=== PATIENT | female | born 1960 | race Caucasian/White ===

== ENCOUNTER → 2017-09-05 13:20 | Outpatient (CLI) | payer MEDICARE, SELFPAY ==
--- NOTE | 2017-09-05 13:22 | RAD_ITS ---
STUDY: XR SPINE ENTIRE THORACIC T LUMBAR (W SKULL, CERVICAL AND SACRAL SPINE IF PERFORMED) REASON FOR EXAM: Female, 57 years old. Low back pain. TECHNIQUE: Radiological exam, spine, entire thoracic and lumbar, including skull, cervical and sacral spine if performed (eg, scoliosis evaluation); 2 or 3 views. COMPARISON: X-rays of the thoracolumbar spine on July 12, 2017. FINDINGS: The patient is status post extensive thoracolumbar instrumentation with transpedicular screws and rods from L3 to T4. There is mild gentle levoscoliotic curvature of the thoracolumbar spine measuring approximately 17 degrees with apex at T7. There is multilevel degenerative disease of the thoracic and upper lumbar spine with disc space narrowing and anterior osteophytes. The patient is status post kyphoplasty at T12 and L1. There is dislocation of the facet joints at L3-4 increases on flexion with widening of the posterior disc space. Small bony fragments are noted posteriorly. There is associated facet arthrosis at L4-5 and L5-S1, with moderate retraction of the articular facets at L4-5. There is degenerative disc disease at L5-S1 with disc space narrowing RAD/Scoliosis 2 or 3 views IMPRESSION: Dislocation of the L3-4 facet joint increased on flexion with degenerative changes and fragmentation and cortical disruption of the articular facets at this level. The possibility of infection cannot be excluded Status post extensive thoracolumbar spinal instrumentation as outlined above Status post kyphoplasty at T12 and L1. Electronically Signed: Andriy Gilliam MD, FACR at 14:03 EST , Service support ,
== END ==
PROVIDERS: Family Provider Internal Medicine; PCP Internal Medicine; Visit Provider Orthopaedic Surgery
DX: M54.5 Low back pain (principal)
CPT/HCPCS: 72082

== ENCOUNTER 2018-02-16 06:42 | Emergency (ER) | payer MEDICARE, SELFPAY ==
[2018-02-16 06:42] VITALS: BP 129/86; PULSE 89; RESP 16; TEMP 37.2; O2SAT 94; BMI 35.9
--- NOTE | 2018-02-16 06:56 | CT_ITS ---
STUDY: CT ABDOMEN AND PELVIS WITH CONTRAST REASON FOR EXAM: Female, 57 years old. Left lower quadrant pain, recent back surgery RADIATION DOSAGE (If Supplied By Facility): CTDIvol = ( 17.96 ) mGy, DLP = ( 1258.60 ) mGycm TECHNIQUE: Transaxial images were obtained from the dome of the diaphragm to the symphysis pubis without oral contrast. 100mL ml of Isovue 300 contrast was administered. Sagittal and coronal images were reconstructed. Individualized dose optimization techniques were used for this CT. COMPARISON: 10/25/2016 FINDINGS: There are chronic interstitial fibrotic changes of the lung bases. The visualized portions of the heart are within normal limits. No discrete lesion noted in the liver, there is stable intrahepatic biliary dilatation likely sequela from previous cholecystectomy. No retained stone or stricture noted in the visualized common bile duct. There are surgical clips in the gallbladder fossa consistent with a prior cholecystectomy. Normal spleen. Normal pancreas. There is a 1.15 cm low attenuation left adrenal mass, consistent with an adrenal adenoma. Normal right adrenal gland. Normal right kidney. Normal left kidney. Postsurgical changes noted in the stomach. Normal small intestine. Retained stool noted throughout the colon. It may be impacted. There is non-visualization of the appendix. There is diffuse atherosclerotic calcification of the abdominal aorta, without a demonstrated aneurysm. Normal inferior vena cava. Normal retroperitoneum. Bladder is collapsed around a Farrell catheter. There is a stable fat-containing dermoid in the upper left pelvis again measuring approximately 6.7 x 5.7 cm. The uterus is again noted to be present the endometrium cannot be accurately evaluated with CT. There is a new predominantly cystic mass in the inferior left pelvis abutting the bladder measuring 6.02 x 4.88 cm with Hounsfield units of 35. I suspect this likely represents a hemorrhagic left ovarian cyst as it is clearly separate from bowel. There is also a 2.39 cm right ovarian cyst cyst. There is a small umbilical hernia containing fat. There are diffuse degenerative and postsurgical changes of the visualized lumbar spine. Degenerative changes noted in the pelvis. CT/Abdomen/Pelvis W IV Cont ONLY IMPRESSION: There is a new from the previous study cystic mass within the left hemipelvis. It is just inferior and lateral to the uterus and abutting the bladder clearly separate from bowel. It measures 6.02 x 4.88 cm. I suspect this likely represents a hemorrhagic ovarian cyst though it could also represent a bladder diverticulum. There is some associated inflammatory stranding. Gynecology consult recommended. Stable 6.7 x 5.7 cm fat-containing dermoid 2.39 cm right ovarian cyst Bladder is collapsed around a Farrell catheter. Retained stool throughout the colon likely impacted Electronically Signed: Johnny Hood MD at 8:22 EDT , Service support ,
--- NOTE | 2018-02-16 07:07 | ED.DCSUM_ITS ---
History of Present Illness Informant: Patient, PCP Onset: - - unk -- thinks around 3 days or so Timing: Continuous Current Severity: Severe Maximum Severity: Severe Narrative: Last month, patient had a low back surgery that was complicated by multiple problems including a dural tear, she ended up a paraplegic and sent to the rehab hospital at [facility]. She recently was transferred to the rehab hospital here and she has been there for a few days, she was recently diagnosed with a urinary infection, she states she was mostly having pain in her perineum, that is better now. She is regaining sensation and motor function in her lower extremities, the right leg is doing better than the left, she does not have a discrete sensory level in her lower abdomen, but states that she has better sensory there then in her left lower extremity. She has been having proximal left lower extremity pain since the surgery as well as low mid back pain, and has the proximal left thigh pain has increased lately, she eventually discovered that it was also in her abdomen as her doctor did today when he examined her. Therefore, she was sent to the ER for further evaluation and for CT scanning. She is had no fevers, nausea, vomiting. Her back pain is been similar to her postop course, no new lateralizing discomforts. <Figueroa Joseph - Last Filed: 02/16/18 06:57> <Timothy Ho - Last Filed: 02/16/18 11:27> Chief Complaint: Abd Pain - Past Medical History (1) Diabetes mellitus type 2, uncontrolled, without complications Status: Chronic (2) Dysthymic disorder Status: Chronic (3) HLD (hyperlipidemia) Status: Chronic (4) HTN (hypertension) Status: Chronic (5) Morbid obesity Status: Chronic (6) Tobacco use disorder Status: Chronic <Figueroa Joseph - Last Filed: 02/16/18 06:57> Past Medical History Surgical History: noncontributory, - - Gastric bypass Lives: Half-Way Smoking Status: Former smoker <Figueroa Joseph - Last Filed: 02/16/18 06:57> <Timothy Ho - Last Filed: 02/16/18 11:27> - Allergies and Home Meds Allergies/Adverse Reactions: Allergies No Known Allergies Allergy (Verified 02/16/18 06:45) Primary Care Physician: Kevin Bah MD [Primary Care Provider] - Review of Systems All systems negative except as indicated Gastrointestinal: Reports: Abdominal pain. Denies: Nausea, Vomiting, Diarrhea, Melena, Hematochezia Genitourinary: Reports: Dysuria - Improving. Denies: Hematuria, Frequency Musculoskeletal: Reports: Back pain, Extremity Pain - Especially on bottoms of feet Neurological: Reports: Weakness, Parasthesia <Figueroa Joseph - Last Filed: 02/16/18 06:57> Physical Exam Vital Signs/Narrative: Vital Signs Temp Pulse Resp BP Pulse Ox 02/16/18 06:42 98.9 F 89 16 129/86 H 94 Inital Vital Signs reviewed: Yes General: Well nourished, Well developed, Obese Head: Normocephalic, Atraumatic Eyes: Perrl, EOMI ENT: Moist mucous membranes, No rhinorrhea Neck: Supple, Nontender Cardiovascular: Regular rate, Regular rhythm, No murmurs Respiratory: No distress, CTA bilaterally, Chest nontender Abdomen: Soft, Nondistended, Normal bowel sounds, Tender - throughout left side and epigastrium, but worst in LLQ. Negative for: Guarding, Rebound tenderness Back: Nontender, Normal Inspection. Negative for: CVA tenderness Extremities: Nontender, No edema Skin: Normal color, No rash Neurological: Alert, Oriented x3, Cranial nerves II-XII grossly intact, Parasthesia - lower abd and BLE, sensation is better in RLE than LLE; no discrete sensory level, Weakness - LLE > RLE Psychological: Normal affect <Figueroa Joseph - Last Filed: 02/16/18 06:57> Vital Signs/Narrative: Vital Signs Pulse BP Pulse Ox 02/16/18 09:02 91 132/87 H 95 <Timothy Ho - Last Filed: 02/16/18 11:27> Diagnostic/Tx/Re-eval - Medical Decision Making Seen just prior to shift change. Labs, CT, and analgesics ordered. Checked out to oncoming ED physician. <Figueroa Joseph - Last Filed: 02/16/18 06:57> - Medical Decision Making Patient was turned over to me. I reevaluated her, she does have left lower quadrant abdominal pain. The CT did show a cystic structure, this was near the ovary, I discussed with GLOST KILN OPERATOR, I did an ultrasound to make sure that there is ovarian blood flow, there is. I am unsure about the etiology of the mass, but she will follow up outpatient for further diagnostic tests as well as treatment. I had a long conversation with her, she does know that there is a possibility of a mass, she also does know that there is possibly cancer and thus the importance of following up. <Timothy Ho - Last Filed: 02/16/18 11:27> ED Disposition <Figueroa Joseph - Last Filed: 02/16/18 06:57> <Timothy Ho - Last Filed: 02/16/18 11:27> - Plan for ED Patient: Disposition: Home or Assisted Living Chief Complaint: Abd Pain Instructions: Abdominal Pain Referrals: Mecca Nevarez MD [STAFF PHYSICIAN] - 3-5 Days Additional Instructions: You have a possible abdominal mass. You need to follow-up with GLOST KILN OPERATOR. There is a chance that this could be cancer.
[2018-02-16 07:19] LABS: Absolute Lymphocyte Count 2.24 X10^3/ul (0.83-4.51); Basophil# 0.04 X10^3/uL; Basophil% 0.6 % (0-1); Eosinophil# 0.16 X10^3/uL; Eosinophils% 2.3 % (0-5); Hematocrit 35.9 % (37-47); Hemoglobin 11.3 g/dl (12.0-15.0); Lymphocyte # 2.24 X10^3/ul (4.0); Lymphocyte % 32.4 % (19-41); Mean Corp Hgb Conc 31.5 g/gl (32-36); Mean Corpuscular Volume 88.9 fL (81-99); Mean Platelet Vol. 9.3 fl (6.2-12.0); Monocyte# 0.43 X10^3/uL; Monocyte% 6.2 % (0-10); Neutrophil # 4.01 X10^3/uL (2.7-7.7); Neutrophil % 57.9 % (47-70); POSITIVE COUNT NO; POSITIVE DIFFERENTIAL NO; POSITIVE MORPHOLOGY NO; Platelet Count 272 K/mm3 (150-450); RBC Distribution Width CV 15.6 % (11.6-14.6); RBC Distribution Width SD 49.7 fl (35.1-43.9); Red Blood Count 4.04 M/mm3 (4.2-5.4); White Blood Count 6.9 K/mm3 (4.4-11.0)
[2018-02-16 07:34] LABS: ALB/GLOB Ratio 0.8 RATIO (0.9-2.4); AST(SGOT) 14 U/L (15-37); Alanine Aminotransfer ALT/SGPT 20 U/L (13-56); Albumin, Serum 3.3 g/dL (3.2-5.0); Alkaline Phosphatase 107 U/L (45-117); Anion Gap 9 (5-15); BUN 20 mg/dL (7-18); BUN/Creat Ratio 19.6 RATIO (10-20); Calcium,Total 10.1 mg/dL (8.5-10.1); Chloride 104 mmol/L (98-107); Creatinine, Serum 1.02 mg/dL (0.55-1.02); EST Glomerular Filtration Rate 59 mL/min (>60); Est Glom Filt Rate - Afr Amer 72 mL/min (>60); Estimated Creatinine Clearance 57.65 ml/min; Globulin 4.1 g/dL (2.2-4.2); Glucose 118 mg/dL (74-106); Lipase 122 U/L (73-393); Potassium 4.2 mmol/L (3.5-5.1); Protein, Total 7.4 g/dL (6.4-8.2); Sodium Level 140 mmol/L (136-145)
[2018-02-16] MEDS: Morphine 4 MG/ML Syringe IV ×3 (07:40→11:52)
[2018-02-16] MEDS: 0.9% Normal Saline 1,000 ML 200 ML IV (07:40)
[2018-02-16 07:44] LABS: Bacteria 0 SEEN /hpf (None Seen); Mucous, Urine 0 SEEN /hpf (<or=2+); Red Blood Cells-Urine 0 SEEN /hpf (0-5)
[2018-02-16 07:51] LABS: Color, Urine Yellow (Yellow); Glucose, Dipstick Normal (Normal); Ketone-Dipstick Negative (Negative); Leukocyte Esterase-Dipstick 500 /ul (Negative); Nitrite-Dipstick Positive (Negative); Occult Blood-Urine 10 /ul (Negative); Protein-Dipstick 15 mg/dl (Negative); Specific Gravity, Urine 1.015 (1.002-1.030); Urine Bilirubin Dipstick 3 mg/dL (Negative); Urine Clarity Clear (Clear); Urine Urobilinogen 4 mg/dl (Normal)
[2018-02-16 08:02] LABS: Squamous Epithelial Cells - UA 0-5 SEEN /hpf (5-10)
[2018-02-16 08:03] LABS: White Blood Cells 5-10 SEEN /hpf (0-5)
--- NOTE | 2018-02-16 08:42 | NURSING ---
LEFT MESSAGE FOR DR MAXWELL TO CALL ER
--- NOTE | 2018-02-16 08:45 | US_ITS ---
STUDY: ULTRASOUND TRANSVAGINAL CLINICAL: Female, 57 years old. Left-sided pelvic pain TECHNIQUE: Transvaginal, Limited study due to paralysis COMPARISON: CT scan from earlier today FINDINGS: Normal uterine size measuring 9.6 cm in maximal craniocaudal dimension. There are no myometrial masses. Endometrium not visualized due to artifact from uterine fibroids. 2 separate fibroids noted larger measures 1.6 cm, smaller 1.3 cm. Normal uterine cervix. Right ovary not visualized. Normal left ovary, measuring 3.0 x 2.3 cm. cm. There is a 1.6 and meter simple cyst. The previously described dermoid and left paraovarian cyst not seen on this study due to patient's limited movement and pain There is no free fluid in the pelvis. Polycystic ovary disease: No. US/Transvaginal Non- IMPRESSION: Uterine fibroids, endometrium cannot be accurately evaluated. Simple 1.6 and meter left ovarian cyst. Previously noted dermoid and other paraovarian mass noted on CT not seen on this limited ultrasound of the pelvis. Electronically Signed: Johnny Hood MD at 11:06 EDT , Service support ,
[2018-02-16 09:02] VITALS: BP 132/87; PULSE 91; O2SAT 95
[2018-02-16] MEDS: Ondansetron 4 MG/2 ML Vial IV (10:26)
[2018-02-16 11:31] VITALS: BP 143/85; BP 143/87; PULSE 86; PULSE 87; RESP 18; O2SAT 99
--- NOTE | 2018-02-16 11:44 | ED.RN ---
reported called to ecf
== END 2018-02-16 12:41 | disposition home or self-care (01) ==
PROVIDERS: Emergency Provider Emergency Medicine; Family Provider Internal Medicine; PCP Internal Medicine
DX: R10.32 Left lower quadrant pain (principal); R10.12 Left upper quadrant pain; R10.13 Epigastric pain; N39.0 Urinary tract infection, site not specified; G97.82 Other postprocedural complications and disorders of nervous system; G82.20 Paraplegia, unspecified; E11.9 Type 2 diabetes mellitus without complications; E78.5 Hyperlipidemia, unspecified; I10 Essential (primary) hypertension; E66.01 Morbid (severe) obesity due to excess calories; F34.1 Dysthymic disorder; Z72.0 Tobacco use; Z98.84 Bariatric surgery status; Z79.02 Long term (current) use of antithrombotics/antiplatelets; Z79.84 Long term (current) use of oral hypoglycemic drugs; Z79.891 Long term (current) use of opiate analgesic; Z79.899 Other long term (current) drug therapy
CPT/HCPCS: 74177; 76830; 80053; 81001; 83690; 85025; 96361; 96374; 96375; 96376; 99285; J7030; Q9967; A4216; J2405

== ENCOUNTER → 2018-02-26 16:58 | Outpatient (CLI) | payer MEDICARE, SELFPAY ==
[2018-02-28 11:45] LABS: Cancer Antigen 125 9.3 U/mL (0.0-38.1); Carcinoembryonic Antigen 1.6 ng/mL (0.0-4.7)
== END ==
LOC: LAB 16:59
PROVIDERS: Family Provider Internal Medicine; PCP Internal Medicine; Visit Provider Obstetrics & Gynecology
DX: N83.299 Other ovarian cyst, unspecified side (principal)
CPT/HCPCS: 36415; 82378; 86304

== ENCOUNTER 2018-03-06 23:43 | Emergency (ER) | payer MEDICARE, SELFPAY ==
[2018-03-06 23:44] VITALS: BP 136/85; PULSE 86; RESP 20; TEMP 37; O2SAT 96; BMI 35.2
--- NOTE | 2018-03-07 00:20 | ED.DCSUM_ITS ---
- ER Visit Summary Date of Service: 03/07/18 Chief Complaint: Left lower abdominal and pelvic pain with a history of ovarian cyst History of Present Illness: The patient is a 57 F has a left ovarian cyst which she is actually having surgery on later today by Dr. Mecca Nevarez. Patient was recently diagnosed with a left ovarian cyst about 2 weeks ago. Has recently been in a long term where she got discharged and states she can control the pain. She does have a history of recent back surgery earlier this year and now has paralysis in her lower extremities which is not new she states was a complication of her back surgery. She denies any change in her pain other than this is more intense. She denies any fever. She has had mild nausea. Pain is been consistently in her left lower quadrant pelvis area where the cyst is located. Physical Examination: Vital signs are stable and afebrile. She is in no acute distress. Patient is emotionally tearful and upset. She is requesting to be admitted until her surgery later today for pain control. HEENT exam unremarkable. Neck nontender. Lungs clear to auscultation bilaterally. Heart regular rhythm no murmur. Abdomen soft nondistended normal bowel sounds no peritoneal signs. She does have tenderness in the low left lower quadrant pelvis area. There is no signs of bowel obstruction. No hernias. Right upper right lower quadrant unremarkable. She is paralyzed from the waist down. Upper extremities are unremarkable. Neurologically she is awake and alert with no new acute findings but paralysis in the lower extremities. Test Results: None Emergency Department Course and Treatment: Patient be treated with IV Dilaudid and Toradol. I very spoken to Dr. Mecca Nevarez who knows the patient but feels it is in the patient's best interest to be discharged and come in for her surgery later today. I discussed this with the patient and her family. Treatment Plan: On repeat exam at 0 1:29 AM patient is doing much better. She states her pain is much better controlled with the IV medications. They have a difficult situation at home since I do not have a wheelchair and she is paralyzed. Also the way to get her back in 4 to the hospital would be via squad. She has surgery scheduled for 1 PM later today. I discussed with the family and we will keep her in the ER control her pain as necessary and taken down to preop around noon. They are comfortable and appreciative of that plan. Disposition: Discharge Impression: Acute on chronic left lower quadrant abdominal pelvic pain secondary to known ovarian cyst This note was generated with [employer] dictation software. It may contain incorrect words, spelling, and punctuation that were not noted in review of the chart prior to signing ED Disposition - Plan for ED Patient: Chief Complaint: Abd Pain Referrals: Kevin Bah MD [Primary Care Provider] -
[2018-03-07] MEDS: HYDROmorphone 1 MG/ML Syringe IV (00:25)
[2018-03-07] MEDS: Ketorolac 30 MG/ML Syringe IV (00:25)
[2018-03-07 02:16] VITALS: BP 130/86; PULSE 87; RESP 20; O2SAT 95
[2018-03-07] MEDS: Acetaminophen 500 MG Tablet 1000 MG PO (03:36)
[2018-03-07] MEDS: HYDROmorphone 0.5 MG/0.5 ML SYRINGE IV ×2 (03:53→08:05)
[2018-03-07 04:13] VITALS: BP 142/77; PULSE 87; O2SAT 93
[2018-03-07 05:52] VITALS: BP 144/76; PULSE 83; O2SAT 93
--- NOTE | 2018-03-07 06:31 | NURSING ---
THIS NURSE ASSISTED PATIENT WITH VOIDING ON THE BEDPAN. A LARGE AMOUNT OF URINE WAS VOIDED. PATIENT IS ABLE TURN TO HER LEFT SIDE WELL.
[2018-03-07 06:33] VITALS: BP 145/91; PULSE 77; O2SAT 96
--- NOTE | 2018-03-07 06:38 | ED.RN ---
DR. CASTREJON MADE AWARE OF PATIENT'S C/O PAIN AT 03/02. PATIENT HAD DILAUDID 3 HOURS AGO AND HE SAID SHE CAN'T HAVE ANYTHING RIGHT NOW.
[2018-03-07 08:01] VITALS: BP 137/87; PULSE 85; RESP 16; O2SAT 93
--- NOTE | 2018-03-07 08:13 | ED.RN ---
report to Estelle BROOKS in [place].
== END 2018-03-07 08:14 | disposition home or self-care (01) ==
PROVIDERS: Emergency Provider Emergency Medicine; Family Provider Internal Medicine; PCP Internal Medicine
DX: N83.202 Unspecified ovarian cyst, left side (principal); R10.2 Pelvic and perineal pain; R10.32 Left lower quadrant pain; G89.29 Other chronic pain; G83.89 Other specified paralytic syndromes; E11.9 Type 2 diabetes mellitus without complications; I10 Essential (primary) hypertension; Z79.84 Long term (current) use of oral hypoglycemic drugs; Z79.891 Long term (current) use of opiate analgesic; Z79.899 Other long term (current) drug therapy
CPT/HCPCS: 96374; 96375; 96376; 99284; A4216

== ENCOUNTER 2018-03-07 08:24 | Day surgery (SDC) | payer MEDICARE, SELFPAY ==
[2018-03-06 13:47] LABS: Thyroid Stim Hormone (TSH) 1.32 uIU/mL (0.358-3.74)
[2018-03-07] VITALS (7 sets, daily range): BP systolic 129–148; BP diastolic 80–88; PULSE 80–88; RESP 16–18; TEMP 36.1–36.7; O2SAT 93–100; BMI 33.9
--- NOTE | 2018-03-07 | FLU_PTH ---
PATIENT: CONRADO RAMAN [place] [facility] [id number] AGE/SX: 57/F ROOM: RE03/07/[address]: Dr. Mecca Nevarez MD : 1960 BED: DIS: 03/07/2018 SPEC #: [id number] RECD: 03/08/18 10:01 STATUS: KRYSTLE THOMAS #: [id number] ESA: 03/07/18 00:[address]: Mecca Nevarez DEPT: CYTOLOGY RECD BY: Junior Felix ENTERED: 03/08/18 10:01 SP TYPE: Fluid OTHR DR: MD Dr. Kevin Holly MD Tissues: Pelvis, NOS Procedures: Pap Stain (control) Special Stain Group II Surgery Specimen Level IV Cell Block Cytospin Fluid HEADER OPERATION: Laparoscopic salpingo-oophorectomy, cysto PRE-OP DIAGNOSIS: Multicystic ovarian mass TISSUE SUBMITTED: Cell washings for cytology DIAGNOSIS CYTOLOGY Cell washings for cytology (cytospin and cell block): Negative for malignant cells. AM:holland 03/09/18 COMMENT Please correlate with corresponding surgical case ([id number]). CYTOLOGY STUDY Slides are reviewed. CYTOLOGY GROSS Received is 25 ml of red, cloudy fluid labeled with the patient's name and and designated per the requisition as cell washings. Submitted for cytology preparation including cell block. / 03/08/18 TC:5 CPT: 48618, 93607
--- NOTE | 2018-03-07 06:56 | PCM.HPOB.BLA ---
- Problem List (1) Complex ovarian cyst Status: Acute Comment: cea and ca125 ordered History and Physical Date of Admission: 03/07/18 Vital Signs 02/26/18 Height 5 ft 6 in 02/26/18 Blood Pressure 116/72 Intake Visit Reasons: CYSTIC MASS - ER REFERRAL Footwear Sales Leader Required: No Is patient in pain?: Yes Pain scale (1-10): 8 Allergies No Known Allergies Allergy (Verified 02/26/18 16:08) Medications Atorvastatin Calcium [Lipitor] 20 mg PO QHS 07/29/13 [History Confirmed 02/26/18] Buspirone HCl [Buspar] 10 mg PO TID 07/29/13 [History Confirmed 02/26/18] Levothyroxine Sodium [Levoxyl] 150 mcg PO DAILY 07/29/13 [History Confirmed 02/26/18] Lorazepam [Ativan] 1 mg PO QHS PRN PRN 07/29/13 [History Confirmed 02/26/18] Calcium Citrate/Vitamin D3 [Calcium Citrate +Vit D3 Tablet] 1 ea PO BID 04/09/16 [History Confirmed 02/26/18] Cholecalciferol (VIT D3) [Vitamin D] 2,000 unit PO DAILY 04/09/16 [History Confirmed 02/26/18] Biotin 1,000 mcg PO DAILY 02/16/18 [History Confirmed 02/26/18] Cyanocobalamin (Vitamin B-12) [Vitamin B-12] 1,000 mcg PO QHS 02/16/18 [History Confirmed 02/26/18] Duloxetine HCl 30 mg PO DAILY 02/16/18 [History Confirmed 02/26/18] Enoxaparin [Lovenox] 40 mg SC DAILY@0600 02/16/18 [History Confirmed 02/26/18] Ferrous Gluconate 324 mg PO DAILY 02/16/18 [History Confirmed 02/26/18] Gabapentin [Neurontin] 600 mg PO BID 02/16/18 [History Confirmed 02/26/18] Gabapentin [Neurontin] 900 mg PO QHS 02/16/18 [History Confirmed 02/26/18] Ipratropium/Albuterol Respimat [Combivent Respimat Inhal [place]] 2 puff INHALATION 4X/DAY PRN PRN 02/16/18 [History Confirmed 02/16/18] Magnesium Oxide 400 mg PO DAILY 02/16/18 [History Confirmed 02/26/18] Metformin HCl 850 mg PO BID 02/16/18 [History Confirmed 02/26/18] Ondansetron [Zofran Odt] 4 mg PO Q6H PRN PRN 02/16/18 [History Confirmed 02/26/18] Pantoprazole Sodium [Protonix] 40 mg PO DAILY 02/16/18 [History Confirmed 02/26/18] Senna [Senokot] 1 tab PO BID 02/16/18 [History Confirmed 02/26/18] Topiramate [Topamax] 25 mg PO BID 02/16/18 [History Confirmed 02/26/18] acetaminophen 325 mg tablet 325 mg PO Q6H PRN 02/26/18 [History Confirmed 02/26/18] baclofen 10 mg tablet 10 mg PO Q6H PRN tab 02/26/18 [History Confirmed 02/26/18] lidocaine HCl 2 % topical cream 1 applic TOPICAL ONCE PRN 02/26/18 [History Confirmed 02/26/18] morphine ER 15 mg tablet,extended release 15 mg PO Q8H 02/26/18 [History Confirmed 02/26/18] phjrvqhezcmn-fppfytby-axudxk tablet 1 tab PO QDAY 02/26/18 [History Confirmed 02/26/18] oxycodone 5 mg tablet 5 mg PO BID PRN tab 02/26/18 [History Confirmed 02/26/18] phenazopyridine 200 mg tablet 200 mg PO TID PRN 02/26/18 [History Confirmed 02/26/18] polyethylene glycol 3350 17 gram/dose oral powder PO 02/26/18 [History Confirmed 02/26/18] Is last menstrual period known: No Patient : No : No PFSH Medical History Major depressive disorder (Acute) Anxiety (Acute) Constipation (Acute) GERD without esophagitis (Chronic) Chronic cluster headache, not intractable (Chronic) Age-related osteoporosis without current pathological fracture (Chronic) Primary generalized (osteo)arthritis (Chronic) Other intervertebral disc degeneration, lumbar region (Chronic) Hypothyroidism (Chronic) Anemia (Acute) COPD (chronic obstructive pulmonary disease) (Chronic) Muscle weakness (Acute) Spinal stenosis, lumbar region without neurogenic claudication (Chronic) Neuromuscular scoliosis (Chronic) Chronic low back pain (Chronic) Paraplegia (Acute) Surgical History D&C (Resolved) H/O gastric bypass (Resolved) History of cholecystectomy (Resolved) Hydradenitis (Resolved) S/P arthroscopic knee surgery (Resolved) S/P lumbar spine operation (Resolved) s/p nerve spine surgery (Resolved) s/p upper back surgery (Resolved) skin graft (Resolved) Family History Father Diabetes Hypertension Myocardial infarction Alcoholism Brother Myocardial infarction Alcoholism Mother CVA (cerebral vascular accident) Social History Smoking Status: Former smoker alcohol intake: never substance use type: does not use caffeine: No what type of physical activity do you participate in: none do you feel safe at home: Yes additional social history: HPI CYSTIC MASS - ER REFERRAL: Details: Henna Gardner is a 57 year old who presents for acute pelvic pain and multicystic ovarian mass. she was seen in the er for pain and it was diagnosed on CT and us showed good bloodflow but a complex ovarian cyst. she denies any fever. she is a paraplegic secondary to recent back surgery with complications. she is in a rehab facility currently. she dneies any vaginal bleeding or abnormal discharge. she is on chronic pain meds and the dosage has been increased recently with still breakthrough pain present. Pregancy History 4 Elective abortions Hx Para 2 Spontaneous abortions 2 Hx # Term Pregnancies Ectopic pregnancies Hx # Pregnancies Multiple births # of living children Past Pregnancies Del. Date Name GA/Weeks Outcome Route Bth Weight Gen Labor Lgth Anesthesia Del Locatn Provider FOB Unknown Guillermina-1984 Unknown Adriane-1989 ROS Const Constitutional: Denies poor appetite, headache(s), fever(s), increased appetite, weight gain, weight loss or fatigue Cardio Card: Denies chest pain Resp Resp: Denies dyspnea or cough GI GI: Reports as per HPI : Denies nipple discharge Skin Skin/Breast: Denies breast lump, breast pain, breast skin changes, nipple discharge or change in hair Exam Const General: cooperative, healthy appearing, comfortable, no acute distress, well developed Nutritional Appearance: average body habitus Orientation: alert HENMT Head: normal to inspection, normocephalic Neck Neck: normal visual inspection, trachea midline Thyroid: thyroid normal Resp Effort & Inspection: normal respiratory effort GI Inspection: normal to inspection, non-distended Palpation: soft, no hepatosplenomegaly, tender in the RLQ Skin General: no rashes or lesions noted Assessment & Plan Problems 1. Complex ovarian cyst N83.299 cea and ca125 ordered Plan recommend laparoscopic BSO washings, ordered cea and ca125 and discussed surgical risks including risks of anesthesia, infection, bleeding, injury to bowel, bladder or blood vessels, and patient wishes to proceed with surgery. UPDATE- I have seen the patient and performed any clinically relevant updates to the history and physical exam. Mecca Nevarez MD
[2018-03-07 09:11] LABS: Bedside Glucose 139 mg/dL (70-110)
--- NOTE | 2018-03-07 10:45 | CASEMGMT ---
Social Work Note Referral from nursing for concerns with transportation. Pt came into the ED last night via squad for abd pain. ED Physician kept the pt in the ED until her scheduled surgery today to avoid concerns with transportation. Introduced self and role at [facility]. According to the pt she had surgery on January 15 of this year that left her paraplegic. She was in [facility] for 3 weeks and discharged on Monday as insurance was cutting her and she did not want to spend her entire paycheck on placement as she states she has a house and all of her belongings in it that she does not want to lose. Pt reports to make $1279/month which makes her ineligible for Medicaid. DME consists of a hospital bed and a wheelchair that the pt reports was her daughters. States that the wheelchair does not fit up the ramp they had placed and the squad is able to get her in and out of the house or her nephew has carried her in. Explain that a squad is not appropriate for transportation home from an elected surgery as the pt can sit up and insurance will not cover a cot transport for home as it is a non-emergent transport. Discuss transport home by an ambulette and that this is not covered by insurance and would be an estimated $50-60 charge. Pt becomes tearful and states that this social media marketing specialist will need to talk to her daughters. Reports that her daughter Fabiana lives with her and helps to take care of her, and that her other daughter Adriane helps as much as she can as well and is an AUTO STRIPER. Pt states that she can manage at home, but transportation is the issue as when she was in the SNF they were assisting with transportation. Inform that SW will contact daughter(s) to see if there are other options and inform them of the ambulette choice. Reviewed case with SS project manager retail who agrees that the ambulette is the only option for transportation at this time. Placed call to pt's daughter, Fabiana, and left vm requesting a return phone call. Will continue to follow and assist with discharge planning. Aimee Corral, PERSONAL LINES SALES REP, PRESS SECRETARY
--- NOTE | 2018-03-07 14:13 | CASEMGMT ---
Social Work Note Pt's daughters present in room and requesting to speak with social work. Introduced self and role at [facility]. Pt's daughter states that the pt was discharged and they were given scripts for various equipment, but it is all specialized and no one carried it on hand and it's all been ordered. States that [employer] in [place] is making a motorized scooter for her and it will be shipping out on Monday. Reports that the w/c they have is extra wide and does not fit up the temporary ramp, and they cannot get a manual w/c through insurance as they will then cancel payment for the motorized scooter. Report that [employer] was supposed to send a loaner manual one until the motorized wheel chair was completed, but have not and have not returned calls. Inquire how the pt got home and Adriane states that they had to privately transport her home and her spouse (pt's son in law) then carried her into house. States concern with safety. Claims that the pt has essentially been bed bound as she is not able to transfer independently. States multiple times that she does not feel the pt should be home right now. Reports that [facility] was setup and they were told that the agency would contact them within 24 hrs of discharge, but they have not heard from them. They are unable to provide the name of the [facility] agency. Pt again brings up a courtesy call by EMS for transport home. Inform that this journalists and other writers spoke with [employer] who confirmed that EMS does not do courtesy calls. Educate to ambulette transport again and inform that this would be a private expense of $50-60 and daughter and pt both state that they cannot afford this. Confirm with pt's family that they intend on taking the pt home at discharge and they understand that the physician does not anticipate keeping the pt overnight. No further questions identified at this time. Placed call to Samreen at [facility] to inquire about which home health care agency was setup for care at discharge as the pt has not yet heard from them regarding SOC. Placed call to [employer] [[phone]] in [place] and spoke with Deb who states that her coworker is at lunch and has this case, but she will give her the message and have her call this journalists and other writers back regarding status of the motorized wheelchair and potential loaner. Updated that pt will be discharged home today. SW to continue to follow and assist as needed. Aimee Corral, VENDOR MANAGEMENT ASSOCIATE, TOBACCO CLOTH RECLAIMER
--- NOTE | 2018-03-07 14:30 | OV_PTH ---
PATIENT: CONRADO RAMAN LOC: [facility] U#:[id number] AGE/SX: 57/F ROOM: RE03/07/[address]: Dr. Mecca Nevarez MD : 1960 BED: DIS: 03/07/2018 SPEC #: [id number] RECD: 03/08/18 09:16 STATUS: KRYSTLE THOMAS #: [id number] ESA: 03/07/18 14:[address]: Mecca Nevarez DEPT: SURGICAL PATHOLOGY RECD BY: Junior Felix ENTERED: 03/08/18 10:00 SP TYPE: OVARY OTHR DR: MD Dr. Kevin Holly MD Tissues: Ovary, NOS Procedures: Surgery Specimen Level IV Surgery Specimen Level V HEADER OPERATION: Laparoscopic salpingo-oophorectomy, cysto PRE-OP DIAGNOSIS: Multicystic ovarian mass TISSUE SUBMITTED: Bilateral tubes and ovaries MICROSCOPIC DIAGNOSIS Right and left fallopian tubes and ovaries, bilateral salpingo-oophorectomy: Right ovary - benign serous cystadenofibroma and corpora albicantia. Left ovary ? benign cystic teratoma (dermoid cyst). Right fallopian tube ? benign paratubal cysts. Left fallopian tube - no pathologic change. AM:holland 03/09/18 MICROSCOPIC DESCRIPTION Slides are reviewed. GROSS DESCRIPTION Received in fixative is one container labeled with the patient's name and designated bilateral fallopian tubes and ovaries, as per requisition, left ovary consists of left ovarian dermoid. The specimen consists of bilateral fallopian tubes and ovaries. The right fallopian tube measures 5.5 cm in length and up to 1 cm in diameter. The fimbrial end is identified. No tubo-ovarian adhesions are noted. Sections of the fallopian tube reveal unremarkable cut surfaces. The adjacent right ovary measures 3 x 2 x 2 cm. Sections reveal unremarkable cut surfaces. The left fallopian tube measures 6.5 cm in length and 0.5 cm in diameter. The fimbrial end is identified. Sections reveal unremarkable cut surfaces. No tubo-ovarian adhesions are noted. The soft to cystic left ovary measures 8 x 5 x 4 cm and weighs 77 gm. It is previously, partially ruptured. The outer surface is smooth and inked black. From the ruptured area, multiple hairs and sebum-like material is protruding. The entire ovary consists of cystic ovary filled with multiple hairs and sebum-like material. The cyst wall measures up to 0.5 cm in thickness. No solid area is identified. Display Fabrication Supervisor sections are submitted in eight cassettes as follows: 1-3 ? right fallopian tube and ovary (1 - right fallopian tube, 2 & 3 ? right ovary), 4-8 ? left fallopian tube and ovary (4 ? left fallopian tube, 5-8 ? left ovary). / KASSI:holland 03/08/18 TC:1 CPT: 18999 x 2.
[2018-03-07] MEDS: Lubricating Jelly 60 GM Tube 30 GM TOPICAL (14:54)
[2018-03-07] MEDS: Bupivacaine 0.25% 30 ML Vial (15:03)
--- NOTE | 2018-03-07 17:20 | PCM.DC.TUB ---
Discharge Diet: No Restrictions - Increase fluid intake for the next 48 hours. Discharge Activity: Return to Normal Activity, May Drive - when you are no longer taking narcotic pain medications., May Shower, May Take a Tub Bath - in 7 days Additional Activity Instructions:: Ambulate often the next week after surgery. Nothing in the vagina for 5 days. Call your doctor if your incision/area has: Continuous Slow Oozing, Sudden Increased Bleeding, Increased Pain/ Swelling, Increased Redness, Foul Smelling Discharge Call your doctor if you observe: Fever of 101 or Higher Allergies/Adverse Reactions: Allergies NSAIDS (Non-Steroidal Anti-Inflamma Allergy (Verified 03/06/18 23:48) GASTRIC BYPASS Medications to take at Discharge Atorvastatin Calcium [Lipitor] 20 mg PO QHS 07/29/13 Buspirone HCl [Buspar] 10 mg PO TID 07/29/13 Levothyroxine Sodium [Levoxyl] 150 mcg PO DAILY 07/29/13 Lorazepam [Ativan] 1 mg PO QHS PRN PRN 07/29/13 Calcium Citrate/Vitamin D3 [Calcium Citrate +Vit D3 Tablet] 1 ea PO BID 04/09/16 Cholecalciferol (VIT D3) [Vitamin D] 2,000 unit PO QHS 04/09/16 Biotin 1,000 mcg PO DAILY 02/16/18 Cyanocobalamin (Vitamin B-12) [Vitamin B-12] 1,000 mcg PO QHS 02/16/18 Duloxetine HCl 30 mg PO DAILY 02/16/18 Ferrous Gluconate 324 mg PO DAILY 02/16/18 Gabapentin [Neurontin] 600 mg PO BID 02/16/18 Gabapentin [Neurontin] 900 mg PO QHS 02/16/18 Ipratropium/Albuterol Respimat [Combivent Respimat Inhal [place]] 2 puff INHALATION 4X/DAY PRN PRN 02/16/18 Magnesium Oxide 400 mg PO DAILY 02/16/18 Metformin HCl 850 mg PO BID 02/16/18 Ondansetron [Zofran Odt] 4 mg PO Q6H PRN PRN 02/16/18 Pantoprazole Sodium [Protonix] 40 mg PO DAILY 02/16/18 Senna [Senokot] 1 tab PO BID 02/16/18 Topiramate [Topamax] 25 mg PO BID 02/16/18 acetaminophen 325 mg tablet 325 mg PO Q6H PRN 02/26/18 baclofen 10 mg tablet 10 mg PO Q6H PRN tab 02/26/18 lidocaine HCl 2 % topical cream 1 applic TOPICAL PRN PRN 02/26/18 morphine ER 15 mg tablet,extended release 15 mg PO Q8H 02/26/18 rceeirmgjygf-ygovmxis-[id number] tablet 1 tab PO QDAY 02/26/18 phenazopyridine 200 mg tablet 200 mg PO TID PRN 02/26/18 polyethylene glycol 3350 17 gram/dose oral powder 17 gm PO DAILY 02/26/18 Oxycodone CR [Oxycontin] 5 mg PO TID PRN 03/06/18 Sennosides [Senna] 8.6 mg PO BID 03/06/18 Oxycodone HCl/Acetaminophen [Percocet 5-325] 1 - 2 tablet PO Q4H PRN PRN 7 Days #28 tablet 03/07/18 The following prescriptions were given: Oxycodone HCl/Acetaminophen [Percocet 5-325] 1 - 2 tablet PO Q4H PRN PRN 7 Days #28 tablet PRN Reason: Moderate-Severe pain Primary Care Physician: Kevin Bah MD [Primary Care Provider] - Test Results: Test results from this visit will be discussed in further detail at your follow-up appointment, if applicable. Please Follow Up With: Mecca Nevarez MD - [phone]
--- NOTE | 2018-03-07 17:21 | PCM.OPRPT ---
Problem List (1) Complex ovarian cyst Status: Acute Comment: cea and ca125 ordered Report of Operation Date of Procedure: 03/07/18 Pre-Operative Diagnosis: left ovarian cyst Post-Operative Diagnosis: left ovarian dermoid cyst ventral hernia suprapubic preperitoneal abdominal wall mass Description of Surgical Findings:: Umbilical hernia, left 7 cm ovarian dermoid cyst. Suprapubic pre-peritoneal abdominal wall mass 6 x 5 cm solid and irregularly-shaped posterior to the fascia. The appendix. 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 Patient was prepped and draped in normal sterile fashion the dorsal lithotomy position. Uterine manipulator was placed inside the uterus and bladder drained of clear urine. Umbilicus was injected with lidocaine and 10 mm incision made varies needle entered into the abdomen abdomen insufflated with CO2 gas and 12 mm trocar was placed under direct visualization. Right left lower quadrant 5 mm trochars were placed with out difficulty under direct visualization. Pelvis was well visualized appendix was noted be within normal limits and the left ovary was noted to be enlarged and with some pelvic adhesions to the left sidewall. There is also noted to be a 5 x 7 cm irregular appearing solid mass that was preperitoneal adjacent to the rectus sheath that was in the suprapubic area but appears separate from bladder uterus and ovary. General surgery was called in to examine the mass and it was discussed with radiology to look at the imaging again to try and decipher what the etiology of the lesion could be. The infundibulopelvic ligament was skeletonized and transected with LigaSure device followed by the mesosalpinx and the utero-ovarian ligament. This was repeated on the right side and excellent hemostasis was noted. The ovary on the left and right were both placed into a laparoscopic bag and removed through the umbilicus and the fluid drained out through the abdomen and the fluid collected. It appeared to be a dermoid cyst with hair and sebaceous material present. cytologic washings were taken in the abdomen prior to removing the ovary from the abdomen. There is no intraoperative rupture present. Dr. Gates with general surgery came and examined the mass laparoscopically and his recommendation was for follow-up as an outpatient due to no acute urgent effects of the area. This time a cystoscopy was performed to rule out a diverticulum and the entire lateral lining was noted to be within normal limits with no abnormal fistulous diverticula or abnormalities seen coming off the bladder. There was a mass-effect noted the left superior aspect of the bladder likely from the area that was seen laparoscopically. There is no invasion into the bladder that was seen. Bilateral ureteral orifices were noted and seen to be within normal limits. Grafts/Implants Used: none - Complications none - Admit VTE Documentation VTE Present on Admission: No
[2018-03-07 17:26] LABS: Bedside Glucose 137 mg/dL (70-110)
[2018-03-07 18:16] LABS: Cytology, Body Fluid / CSF SEE PATHOLOGY REPORT
== END 2018-03-07 18:30 | disposition home or self-care (01) ==
LOC: SDC 08:26 → AC 08:26
PROVIDERS: Family Provider Internal Medicine; PCP Internal Medicine; Visit Provider Obstetrics & Gynecology
PROC: (CPT 49084; principal; 2018-03-07 14:15)
DX: D27.0 Benign neoplasm of right ovary (principal); N83.291 Other ovarian cyst, right side; D27.1 Benign neoplasm of left ovary; N83.8 Other noninflammatory disorders of ovary, fallopian tube and broad ligament; K43.9 Ventral hernia without obstruction or gangrene; R19.09 Other intra-abdominal and pelvic swelling, mass and lump; F32.9 Major depressive disorder, single episode, unspecified; F41.9 Anxiety disorder, unspecified; K21.9 Gastro-esophageal reflux disease without esophagitis; M19.91 Primary osteoarthritis, unspecified site; E03.9 Hypothyroidism, unspecified; D64.9 Anemia, unspecified; J44.9 Chronic obstructive pulmonary disease, unspecified; G82.20 Paraplegia, unspecified; G25.81 Restless legs syndrome; E78.00 Pure hypercholesterolemia, unspecified; E11.9 Type 2 diabetes mellitus without complications; Z87.891 Personal history of nicotine dependence; Z98.84 Bariatric surgery status; Z79.899 Other long term (current) drug therapy; Z79.84 Long term (current) use of oral hypoglycemic drugs; Z79.891 Long term (current) use of opiate analgesic
CPT/HCPCS: 49084; 52000; 58661; 36415; 82962; 83036; 84443; 86850; 86900; 88108; 88305; 88307; 88313; J7120; J2405

== ENCOUNTER 2018-03-22 14:49 | Inpatient (IN) | payer MEDICARE, SELFPAY ==
[2018-03-22 14:50] VITALS: BP 132/87; PULSE 101; RESP 16; TEMP 36.6; O2SAT 95; BMI 34.2
[2018-03-22 15:53] LABS: Absolute Lymphocyte Count 2.04 X10^3/ul (0.83-4.51); Absolute Neutrophil Count 4.2 X10^3/uL (2.0-7.7); Basophil# 0.03 X10^3/uL; Basophil% 0.4 % (0-1); Eosinophil# 0.28 X10^3/uL; Eosinophils% 4.1 % (0-5); Hematocrit 39.9 % (37-47); Hemoglobin 12.8 g/dl (12.0-15.0); Lymphocyte # 2.04 X10^3/ul (4.0); Lymphocyte % 29.6 % (19-41); Mean Corp Hgb Conc 32.1 g/gl (32-36); Mean Corpuscular Hgb 27.8 pg (27.0-32.0); Mean Corpuscular Volume 86.6 fL (81-99); Mean Platelet Vol. 10.4 fl (6.2-12.0); Monocyte# 0.37 X10^3/uL; Monocyte% 5.4 % (0-10); Neutrophil # 4.16 X10^3/uL (2.7-7.7); Neutrophil % 60.2 % (47-70); Platelet Count 185 K/mm3 (150-450); RBC Distribution Width CV 14.6 % (11.6-14.6); RBC Distribution Width SD 46.2 fl (35.1-43.9); Red Blood Count 4.61 M/mm3 (4.2-5.4); White Blood Count 6.9 K/mm3 (4.4-11.0)
[2018-03-22 15:54] LABS: POSITIVE COUNT NO; POSITIVE DIFFERENTIAL NO; POSITIVE MORPHOLOGY NO
[2018-03-22 16:10] LABS: Anion Gap 11 (5-15); BUN 15 mg/dL (7-18); BUN/Creat Ratio 21.7 RATIO (10-20); Chloride 109 mmol/L (98-107); Creatinine, Serum 0.69 mg/dL (0.55-1.02); EST Glomerular Filtration Rate 93 mL/min (>60); Est Glom Filt Rate - Afr Amer 112 mL/min (>60); Estimated Creatinine Clearance 85.23 ml/min; Glucose 116 mg/dL (74-106); Sodium Level 142 mmol/L (136-145)
[2018-03-22] MEDS: morphine 10 MG/ML Syringe IV (16:15)
[2018-03-22 16:29] LABS: Mucous, Urine 0 SEEN /hpf (<or=2+); Red Blood Cells-Urine 0 SEEN /hpf (0-5)
[2018-03-22 16:36] LABS: Color, Urine Yellow (Yellow); Glucose, Dipstick Normal (Normal); Ketone-Dipstick 15 mg/dl (Negative); Leukocyte Esterase-Dipstick 500 /ul (Negative); Nitrite-Dipstick Positive (Negative); Occult Blood-Urine 25 /ul (Negative); Protein-Dipstick 30 mg/dl (Negative); Specific Gravity, Urine 1.025 (1.002-1.030); Urine Clarity Cloudy (Clear); Urine Urobilinogen Normal (Normal)
[2018-03-22 16:43] LABS: Urine Bilirubin Dipstick 1 mg/dL (Negative)
[2018-03-22 16:47] LABS: Hyaline Cast 0-5 SEEN /lpf (0-5)
[2018-03-22 16:48] LABS: White Blood Cells 50-100 SEEN /hpf (0-5)
[2018-03-22 16:49] LABS: Bacteria 3+ /hpf (None Seen); Squamous Epithelial Cells - UA 0-5 SEEN /hpf (5-10)
[2018-03-22 16:50] LABS: Transitional Epithelial - Ur 0-5 SEEN /hpf (0-5)
--- NOTE | 2018-03-22 17:02 | ED.VIS.GEN ---
History of Present Illness Chief Complaint: Back Informant: Patient, Family Onset: - - chronic. worse in past 2 months since last low back surgery. not worse now -- I've been putting it off. Context: Gradual Onset Timing: Continuous Quality: pain in lumbar back, also in buttocks due to being bedridden Location: low back Associated Symptoms: dysuria, frequency Narrative: Patient has had severe pain in her low back. This is chronic. She has had several surgeries on her back, after the last one, she is essentially paralyzed in her lower extremities. She has neuropathy which gives her painful numbness in both of her legs/feet, that are very sensitive to touching, she had a sacral decubitus ulcer that has been healing, but she still has pain in that area, she had a recent urinary tract infection and was treated with antibiotics, the last antibiotic was 7 days ago and her dysuria improved but never resolved and has been gradually worsening since. She had surgery on both ovaries involving cysts about 2 weeks ago, she states she is having some soreness in there since her surgery but that has been gradually improving and she has very minimal if any discomfort in her abdomen generally speaking. She denies any recent fevers, syncope, or other systemic symptoms. She has pain medication at home. She spends the majority of her time talking about how the back surgeon will not release her back to her pain management doctor and when her pain medicine wears out next week, she will be screwed. Her daughters are here who also help provide history, they care for her at home. Outside of the room, they state that the patient has made idle threats from her after they have confronted her about taking too much of the pain medication, or taking the pills to close together and not allowing 4 hours apart, and she states to them that she does not care, she does not care if she dies, they are concerned about her mental health and about the possibility of her trying to harm herself if and when she goes home. They additionally are requiring a mental health evaluation. They have tried to get her to the counseling center for counseling but she refuses to go and be seen as an outpatient. - Past Medical History (1) Anemia Status: Chronic (2) Anxiety Status: Chronic (3) Complex ovarian cyst Status: Chronic Comment: cea and ca125 ordered (4) Major depressive disorder Status: Chronic (5) Paraplegia Status: Chronic (6) COPD (chronic obstructive pulmonary disease) Status: Chronic (7) Chronic Airway Obstruction NEC Status: Chronic (8) Chronic low back pain Status: Chronic (9) Diabetes mellitus type 2, uncontrolled, without complications Status: Chronic (10) GERD without esophagitis Status: Chronic (11) HLD (hyperlipidemia) Status: Chronic (12) HTN (hypertension) Status: Chronic (13) Hypothyroidism Status: Chronic (14) Morbid obesity Status: Chronic (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 (16) Spinal stenosis, lumbar region without neurogenic claudication Status: Chronic Past Medical History - Allergies and Home Meds Allergies/Adverse Reactions: Allergies NSAIDS (Non-Steroidal Anti-Inflamma Allergy (Verified 03/06/18 23:48) GASTRIC BYPASS Primary Care Physician: Kevin Bah MD [Primary Care Provider] - Surgical History: noncontributory, - - Gastric bypass. multiple back surgeries. Lives: With Family Smoking Status: Former smoker Review of Systems General: Reports: Malaise Eyes: Denies: Visual changes - bilaterally, Diplopia ENT: Denies: Rhinorrhea, Sore throat Cardiovascular: Denies: Chest pain, Palpitations Respiratory: Denies: Dyspnea, Cough Gastrointestinal: Denies: Abdominal pain, Nausea, Vomiting, Diarrhea Musculoskeletal: Reports: Back pain, Extremity Pain. Denies: Neck pain Neurological: Reports: Weakness - BLE, Numbness - BLE. Denies: Headache Physical Exam Vital Signs/Narrative: Vital Signs Temp Pulse Resp BP Pulse Ox 03/22/18 14:50 97.9 F 101 H 16 132/87 H 95 Inital Vital Signs reviewed: Yes General: Well nourished, Well developed, Obese Head: Normocephalic, Atraumatic Eyes: Perrl, EOMI ENT: Moist mucous membranes, No rhinorrhea Neck: Supple, Nontender Cardiovascular: Regular rate, Regular rhythm, No murmurs, - - 2+ bilat DP pulses Respiratory: No distress, CTA bilaterally, Chest nontender Abdomen: Soft, Nontender, Nondistended, Normal bowel sounds Back: Normal Inspection - well-healed lumbar surgical incision. Stage 1 sacral decub ulcer, tender, no openings or signs of infection., Spinal tenderness - throughout well-healed surgical scar; no signs of open wound here or cellulitis/rash. Negative for: CVA tenderness Extremities: Tenderness - superficially both distal LE Skin: Normal color, No rash Neurological: Alert, Oriented x3, Cranial nerves II-XII grossly intact, Parasthesia - BLE, Weakness - Weak in BLE; able to move distal RLE mildly, less in left Psychological: Depressed, Tearful Diagnostic/Tx/Re-eval Laboratory Results 03/22/18 03/22/18 03/22/18 Range/Units 15:45 15:45 15:45 WBC 6.9 (4.4-11.0) K/mm3 RBC 4.61 (4.2-5.4) M/mm3 Hgb 12.8 (12.0-15.0) g/dl Hct 39.9 (37-47) % MCV 86.6 (81-99) fL MCH 27.8 (27.0-32.0) pg MCHC 32.1 (32-36) g/gl RDW 14.6 (11.6-14.6) % RDW Differential 46.2 H (35.1-43.9) fl Plt Count 185 (150-450) K/mm3 MPV 10.4 (6.2-12.0) fl Immature Gran % (Auto) 0.300 (0.0-0.9) % Neut % (Auto) 60.2 (47-70) % Lymph % (Auto) 29.6 (19-41) % [place] % (Auto) 5.4 (0-10) % Eos % (Auto) 4.1 (0-5) % Baso % (Auto) 0.4 (0-1) % Absolute Neuts (auto) 4.2 (2.0-7.7) X10^3/uL Absolute Lymphs (auto) 2.04 (0.83-4.51) X10^3/ul Total Counted Not Reportable Sodium 142 (136-145) mmol/L Potassium 4.0 (3.5-5.1) mmol/L Chloride 109 H (98-107) mmol/L Carbon Dioxide 22.0 (21.0-32.0) mmol/L Anion Gap 11 (5-15) BUN 15 (7-18) mg/dL Creatinine 0.69 (0.55-1.02) mg/dL Estim Creat Clear Calc 85.23 ml/min Est GFR (MDRD) Af Amer 112 (>60) mL/min Est GFR (MDRD) Non-Af 93 (>60) mL/min BUN/Creatinine Ratio 21.7 H (10-20) RATIO Glucose 116 H (74-106) mg/dL Calcium 10.0 (8.5-10.1) mg/dL Total Bilirubin 0.40 (0.20-1.00) mg/dL Direct Bilirubin 0.12 (0.00-0.30) mg/dL AST 9 L (15-37) U/L ALT 17 (13-56) U/L Alkaline Phosphatase 95 (45-117) U/L Total Protein 7.2 (6.4-8.2) g/dL Albumin 3.3 (3.2-5.0) g/dL Globulin 3.9 (2.2-4.2) g/dL Urine Color (Yellow) Urine Clarity (Clear) Urine pH (5.0 - 8.0) Ur Specific [place] (1.002-1.030) Urine Protein (Negative) mg/dl Urine Glucose (UA) (Normal) mg/dl Urine Ketones (Negative) mg/dl Urine Occult Blood (Negative) /ul Urine Nitrite (Negative) Urine Bilirubin (Negative) mg/dL Urine Urobilinogen (Normal) mg/dl Ur Leukocyte Esterase (Negative) /ul Urine RBC (0-5) /hpf Urine WBC (0-5) /hpf Ur Squamous Epith Cells (5-10) /hpf Ur Transition Epith Cell (0-5) /hpf Urine Bacteria (None Seen) /hpf Hyaline Casts (0-5) /lpf Urine Mucus (<or=2+) /hpf Urine Opiates Screen (< 300 ng/mL) Urine Methadone Screen (< 300 ng/mL) Ur Barbiturates Screen (< 200 ng/mL) Ur Phencyclidine Scrn (< 25 ng/mL) Ur Amphetamines Screen (<1000 ng/mL) U Methamphetamin-MDMA (< 500 ng/mL) U Benzodiazepines Scrn (< 200 ng/mL) Urine Cocaine Screen (< 300 ng/mL) U Cannabinoids Screen (< 50 ng/mL) Ur Drug Screen Comment 03/22/18 03/22/18 Range/Units 16:24 16:24 WBC (4.4-11.0) K/mm3 RBC (4.2-5.4) M/mm3 Hgb (12.0-15.0) g/dl Hct (37-47) % MCV (81-99) fL MCH (27.0-32.0) pg MCHC (32-36) g/gl RDW (11.6-14.6) % RDW Differential (35.1-43.9) fl Plt Count (150-450) K/mm3 MPV (6.2-12.0) fl Immature Gran % (Auto) (0.0-0.9) % Neut % (Auto) (47-70) % Lymph % (Auto) (19-41) % [place] % (Auto) (0-10) % Eos % (Auto) (0-5) % Baso % (Auto) (0-1) % Absolute Neuts (auto) (2.0-7.7) X10^3/uL Absolute Lymphs (auto) (0.83-4.51) X10^3/ul Total Counted Sodium (136-145) mmol/L Potassium (3.5-5.1) mmol/L Chloride (98-107) mmol/L Carbon Dioxide (21.0-32.0) mmol/L Anion Gap (5-15) BUN (7-18) mg/dL Creatinine (0.55-1.02) mg/dL Estim Creat Clear Calc ml/min Est GFR (MDRD) Af Amer (>60) mL/min Est GFR (MDRD) Non-Af (>60) mL/min BUN/Creatinine Ratio (10-20) RATIO Glucose (74-106) mg/dL Calcium (8.5-10.1) mg/dL Total Bilirubin (0.20-1.00) mg/dL Direct Bilirubin (0.00-0.30) mg/dL AST (15-37) U/L ALT (13-56) U/L Alkaline Phosphatase (45-117) U/L Total Protein (6.4-8.2) g/dL Albumin (3.2-5.0) g/dL Globulin (2.2-4.2) g/dL Urine Color Yellow (Yellow) Urine Clarity Cloudy (Clear) Urine pH 5.0 (5.0 - 8.0) Ur Specific [place] 1.025 (1.002-1.030) Urine Protein 30 H (Negative) mg/dl Urine Glucose (UA) Normal (Normal) mg/dl Urine Ketones 15 H (Negative) mg/dl Urine Occult Blood 25 H (Negative) /ul Urine Nitrite Positive H (Negative) Urine Bilirubin 1 H (Negative) mg/dL Urine Urobilinogen Normal (Normal) mg/dl Ur Leukocyte Esterase 500 H (Negative) /ul Urine RBC 0 SEEN (0-5) /hpf Urine WBC 50-100 SEEN (0-5) /hpf Ur Squamous Epith Cells 0-5 SEEN (5-10) /hpf Ur Transition Epith Cell 0-5 SEEN (0-5) /hpf Urine Bacteria 3+ (None Seen) /hpf Hyaline Casts 0-5 SEEN (0-5) /lpf Urine Mucus 0 SEEN (<or=2+) /hpf Urine Opiates Screen POSITIVE H (< 300 ng/mL) Urine Methadone Screen NEGATIVE (< 300 ng/mL) Ur Barbiturates Screen NEGATIVE (< 200 ng/mL) Ur Phencyclidine Scrn NEGATIVE (< 25 ng/mL) Ur Amphetamines Screen NEGATIVE (<1000 ng/mL) U Methamphetamin-MDMA NEGATIVE (< 500 ng/mL) U Benzodiazepines Scrn NEGATIVE (< 200 ng/mL) Urine Cocaine Screen NEGATIVE (< 300 ng/mL) U Cannabinoids Screen NEGATIVE (< 50 ng/mL) Ur Drug Screen Comment - Medical Decision Making Patient has significant indicators on urine indicating infection, this was sent for a culture and she was given Keflex is on her last culture done a couple of months ago showing Proteus mirabilis sensitive to everything except for nitrofurantoin. The rest of her labs are unremarkable, toxicology was obtained and shows opiates only, for mental health evaluation. After extensive mental health evaluation, it was determined that the patient is depressed, refusing outpatient therapy, but would not necessarily be an appropriate inpatient psychiatric patient partially due to her medical issues. She could however be a detention patient and have psychiatric consultations. Her daughter has expressed concerns that she will not be able to adequately care for her, especially given this recurrent urinary tract infection and the stage I sacral decubitus ulceration. There is a healed area there, but there is still a decubitus ulcer. I think this is contributing to her pain. Her labs are otherwise normal, and I do not think she needs advanced imaging of her back to look for some type of deep spinal or abdominal infection. She is amenable to staying in a detention at least temporarily. Daughter prefers this as well. Therefore she will be admitted medically for placement. Crisis states that she does not need to be under continuing suicidal precautions while inpatient; she denies being actively suicidal at this time. She will only be admitted to observation, and only because it is after hours and social work is not available to get her to a care home facility at this time. ED Disposition - Plan for ED Patient: Disposition: Acute Care Hospital [facility] Chief Complaint: Back Diagnosis: Chronic low back pain, Paraplegia, Major depression, Suicidal thoughts, Recurrent UTI Referrals: Kevin Bah MD [Primary Care Provider] -
--- NOTE | 2018-03-22 17:11 | ED.RN ---
family is requesting te crisis comes to evaluate the pt because they feel she may be suicidal
[2018-03-22] MEDS: Cephalexin 250 MG Capsule 500 MG PO (17:34)
[2018-03-22 17:35] VITALS: BP 140/85; PULSE 96; RESP 20; O2SAT 94
[2018-03-22 18:26] LABS: AST(SGOT) 9 U/L (15-37); Alanine Aminotransfer ALT/SGPT 17 U/L (13-56); Albumin, Serum 3.3 g/dL (3.2-5.0); Alkaline Phosphatase 95 U/L (45-117); Bilirubin, Direct 0.12 mg/dL (0.00-0.30); Globulin 3.9 g/dL (2.2-4.2); Protein, Total 7.2 g/dL (6.4-8.2)
[2018-03-22 18:48] LABS: Amphetamine Urine VISTA NEGATIVE (<1000 ng/mL); Barbiturate Urine VISTA NEGATIVE (< 200 ng/mL); Benzodiazepine Urine VISTA NEGATIVE (< 200 ng/mL); Cocaine Urine VISTA NEGATIVE (< 300 ng/mL); Ecstacy Urine VISTA NEGATIVE (< 500 ng/mL); Methadone Urine VISTA NEGATIVE (< 300 ng/mL); PCP Urine VISTA NEGATIVE (< 25 ng/mL); THC Urine VISTA NEGATIVE (< 50 ng/mL); Vista UDS pH Range 5
[2018-03-22 19:17] VITALS: BP 147/86; PULSE 102; RESP 17; O2SAT 94
--- NOTE | 2018-03-22 19:38 | PCM.HP.STD ---
Problem List (1) Suicidal thoughts Status: Acute (2) Recurrent UTI Status: Acute (3) Major depressive disorder Status: Chronic Qualifiers: Major depression recurrence: unspecified whether recurrent Major depression episode severity: unspecified (4) Anxiety Status: Chronic (5) Constipation Status: Chronic Qualifiers: Constipation type: unspecified constipation type Qualified Code(s): K59.00 - Constipation, unspecified (6) GERD without esophagitis Status: Chronic (7) Hypothyroidism Status: Chronic Qualifiers: Hypothyroidism type: unspecified Qualified Code(s): E03.9 - Hypothyroidism, unspecified (8) Anemia Status: Chronic Qualifiers: Anemia type: unspecified type Qualified Code(s): D64.9 - Anemia, unspecified (9) COPD (chronic obstructive pulmonary disease) Status: Chronic Qualifiers: COPD type: unspecified COPD Qualified Code(s): J44.9 - Chronic obstructive pulmonary disease, unspecified (10) Spinal stenosis, lumbar region without neurogenic claudication Status: Chronic (11) Neuromuscular scoliosis Status: Chronic Qualifiers: Spinal region: unspecified Qualified Code(s): M41.40 - Neuromuscular scoliosis, site unspecified (12) Chronic low back pain Status: Chronic Qualifiers: Back pain laterality: unspecified Sciatica laterality: sciatica laterality unspecified (13) Paraplegia Status: Chronic (14) Morbid obesity Status: Chronic (15) HTN (hypertension) Status: Chronic Qualifiers: Hypertension type: essential hypertension Qualified Code(s): I10 - Essential (primary) hypertension (16) HLD (hyperlipidemia) Status: Chronic Qualifiers: Hyperlipidemia type: pure hypercholesterolemia Qualified Code(s): E78.00 - Pure hypercholesterolemia, unspecified; E78.0 - Pure hypercholesterolemia (17) Dysthymic disorder Status: Chronic (18) Diabetes mellitus type 2, uncontrolled, without complications Status: Chronic History of Present Illness Date of Admission: 03/22/18 Chief Complaint: Back pain, decreased energy, weakness, fatigue, depression The patient is a 57 y/o F w/ PMHx: Depression and Anxiety, Obesity, Chronic COPD, Former Tobacco use, Chronic Headaches, Spinal stenosis w/ severe radiculopathy with 2017 cervical surgery and recent 12/2017 [facility] lumbar surgery w/ following debility and near BL LE paraplegia requiring SNF placement following w/ recent discharge ~ 3 weeks ago w/ following transition to home decreased energy, worsened back pain, lethargy, depressed mood with family reported patient admission suicidal thoughts but no plan, worsened over the last 24-48 hours. Patient did note lower abdominal/suprapubic region TTP. In the ED patient evaluated per Crisis secondary to these concerns and notably flat affect, appearance depression with no acute concern for active plan and recommendation for ongoing treatment with outpatient psychiatric therapy, possible psychiatric evaluation at SNF. Patient did have recent surgical intervention per paint factory worker 03/07/18 secondary to complex ovarian cyst with postoperative diagnosis left ovarian dermoid cyst with ventral hernia as well as suprapubic preperitoneal abdominal wall mass with bilateral tubes, ovaries and cytological washings sent. In the ED work-up included T 97.9, heart rate 101, BP 132/87, respiratory rate 816, 95% room air, CBC with WBC 6.9, hemoglobin 12.8, platelet 185 without shift, CMP remarkable for chloride 109, glucose 116, urinalysis notable for UTI, urine culture pending. The ED patient administered morphine 10 mg IV ?1 in addition to Keflex 500 mg p.o. ?1. Past Medical History Past Medical History (Chronic Problems): Chronic Problems (Last Updated 02/26/18 @ 16:26 by Kristie Collins) Complex ovarian cyst (Chronic) cea and ca125 ordered Major depressive disorder (Chronic) Anxiety (Chronic) Constipation (Chronic) GERD without esophagitis (Chronic) Chronic cluster headache, not intractable (Chronic) Age-related osteoporosis without current pathological fracture (Chronic) Primary generalized (osteo)arthritis (Chronic) Other intervertebral disc degeneration, lumbar region (Chronic) Hypothyroidism (Chronic) Anemia (Chronic) COPD (chronic obstructive pulmonary disease) (Chronic) Spinal stenosis, lumbar region without neurogenic claudication (Chronic) Neuromuscular scoliosis (Chronic) Chronic low back pain (Chronic) Paraplegia (Chronic) Tobacco use disorder (Chronic) Morbid obesity (Chronic) HTN (hypertension) (Chronic) HLD (hyperlipidemia) (Chronic) Dysthymic disorder (Chronic) Diabetes mellitus type 2, uncontrolled, without complications (Chronic) Chronic Airway Obstruction NEC (Chronic) Medical History: Medical History (Last Updated 02/26/18 @ 16:26 by Kristie Collins) Major depressive disorder (Chronic) F32.9 Anxiety (Chronic) F41.9 Constipation (Chronic) K59.00 GERD without esophagitis (Chronic) K21.9 Chronic cluster headache, not intractable (Chronic) G44.029 Age-related osteoporosis without current pathological fracture (Chronic) M81.0 Primary generalized (osteo)arthritis (Chronic) M15.0 Other intervertebral disc degeneration, lumbar region (Chronic) M51.36 Hypothyroidism (Chronic) E03.9 Anemia (Chronic) D64.9 COPD (chronic obstructive pulmonary disease) (Chronic) J44.9 Muscle weakness (Acute) M62.81 Spinal stenosis, lumbar region without neurogenic claudication (Chronic) M48.061 Neuromuscular scoliosis (Chronic) M41.40 Chronic low back pain (Chronic) M54.5, G89.29 Paraplegia (Chronic) G82.20 Allergies NSAIDS (Non-Steroidal Anti-Inflamma Allergy (Verified 03/06/18 23:48) GASTRIC BYPASS Home Medications: Ambulatory Orders Medication Instructions Recorded Levothyroxine Sodium [Levoxyl] 150 mcg PO DAILY 07/29/13 Lorazepam [Ativan] 1 mg PO BID PRN PRN 07/29/13 Calcium Citrate/Vitamin D3 1 ea PO BID 04/09/16 [Calcium Citrate +Vit D3 Tablet] Cholecalciferol (VIT D3) [Vitamin 2,000 unit PO QHS 04/09/16 D] Biotin 1,000 mcg PO DAILY 02/16/18 Cyanocobalamin (Vitamin B-12) 1,000 mcg PO QHS 02/16/18 [Vitamin B-12] Ferrous Gluconate 324 mg PO DAILY 02/16/18 Gabapentin [Neurontin] 600 mg PO BID 02/16/18 Gabapentin [Neurontin] 900 mg PO QHS 02/16/18 Magnesium Oxide 400 mg PO DAILY 02/16/18 Senna [Senokot] 1 tab PO BID 02/16/18 Topiramate [Topamax] 25 mg PO BID 02/16/18 acetaminophen 325 mg tablet 325 mg PO Q6H PRN 02/26/18 baclofen 10 mg tablet 10 mg PO Q6H PRN tab 02/26/18 morphine ER 15 mg tablet,extended 15 mg PO Q8H 02/26/18 release pzszyujbksxo-eilhqkek-oiavrh tablet 1 tab PO QDAY 02/26/18 polyethylene glycol 3350 17 17 gm PO DAILY 02/26/18 gram/dose oral powder Sennosides [Senna] 8.6 mg PO BID 03/06/18 Oxycodone HCl/Acetaminophen 1 - 2 tablet PO Q4H PRN PRN 7 Days 03/07/18 [Percocet 5-325] #28 tablet Ondansetron HCl [Zofran] 4 mg PO Q6H PRN PRN 03/22/18 Oxycodone CR [Oxycontin] 10 mg PO Q12H 03/22/18 Oxycodone HCl/Acetaminophen 1 tablet PO Q6H PRN PRN 03/22/18 [Percocet 10-325 mg Tablet] Oxycodone [Oxyir] 5 mg PO Q6H PRN PRN 03/22/18 Surgical History: Surgical History (Last Updated 02/26/18 @ 16:12 by Kristie Collins) D&C H/O gastric bypass Z98.84 History of cholecystectomy Z98.890, Z90.49 Hydradenitis L73.2 removal-multiple S/P arthroscopic knee surgery Z98.890 S/P lumbar spine operation Z98.890 s/p nerve spine surgery s/p upper back surgery skin graft Surgical History: - - Cholecystectomy, bilateral oophorectomy most recently 03/07/18 secondary to complex ovarian cyst with postoperative diagnosis left ovarian dermoid cyst with ventral hernia as well as suprapubic preperitoneal abdominal wall mass with bilateral tubes, ovaries and cytological washings sent, Cristopher-en-Y, right knee arthroscopic surgery, cervical back surgery March 2017, recent lumbar back surgery December 2017. 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 Lives: With Family - Only living with her daughters however prior to this was in halfway facility, discharge 3 weeks prior to current presentation. Smoking Status: Former smoker - Quit approximately 3 years prior and at that time was smoking 1 pack per day tobacco. Tobacco Use: Non-smoker Alcohol: None Drugs: None - *Family History Maternal Family History: Family History (Last Updated 02/26/18 @ 16:13 by Kristie Collins) Father Diabetes Hypertension Myocardial infarction Alcoholism Brother Myocardial infarction Alcoholism Mother CVA (cerebral vascular accident) History Items: Diabetes, High Cholesterol, Heart Disease, Hypertension Paternal Family History: Family History (Last Updated 02/26/18 @ 16:13 by Kristie Collins) Father Diabetes Hypertension Myocardial infarction Alcoholism Brother Myocardial infarction Alcoholism Mother CVA (cerebral vascular accident) History Items: Diabetes, High Cholesterol, Heart Disease, Hypertension Review of Systems Constitutional: Reports: Malaise, Weakness, Fatigue. Denies: Chills, Fever, Weight Change HEENT: Denies: Head Aches, Sinus Congestion, Sinus Drainage Cardiovascular: Denies: Chest Pain, Palpitations Respiratory: Denies: Cough, Shortness of breath at rest, Sputum production Gastrointestinal: Reports: Abdominal Pain, Constipation. Denies: Nausea, Vomiting Genitourinary: Reports: - - Pubic tenderness.. Denies: Dysuria Musculoskeletal: Reports: Back Pain, Foot Pain, Leg Pain, Neck Pain. Denies: Joint Pain, Joint Tenderness Skin: Denies: Rash, Wounds Neurological: Reports: Focal weakness, Headaches, Numbness, Tingling Psychiatric: Reports: Anxiety, Depression, Suicidal Ideations. Denies: Homicidal Ideations Hematologic/ Lymphatic: Reports: Anemia. Denies: Easy Bruising, Easy Bleeding VTE Information - Inpt Only VTE Present on Admission: No VTE Mechan Device Prophylaxis: SCD's VTE Pharm Prophylaxis ordered?: Yes Subjective: Seated upright in the ED bed, completely flat affect, depressed appearing, notes an ongoing discomfort secondary to back. Objective: Physical Examination: General: awake, alert, oriented x 3 and cooperative, seated upright in the ED bed, flat affect, notes ongoing pain to back, worse with any movement attempts or palpation of lower extremities. Skin: normal color, turgor, no icterus, cyanosis except stage I decubitus ulcer in the coccyx region, recent operative intervention abdomen with Steri-Strips in place, incisions well appearing. HEENT: AT/NC, EOMI, PERRLA, dry MM, no carotid bruits or JVD noted. Lungs: Diminished breath sounds bilaterally, poor effort, no rales, ronchi or wheezing. Heart: Regular rate and rhythm; no gallop, rub audible. Abdomen: soft, obese, recent surgical intervention with Steri-Strips in place, no drainage, incisions well appearing, suprapubic tenderness present anand NTTP, ND, normal BS, no HSM; however given recent intervention and discomfort as well as habitus examination difficult. Extremities: no cyanosis, clubbing, severe tenderness to palpation of bilateral lower extremities especially feet secondary to severe neuropathy. Neurological: patient awake, alert, oriented x 3; cognitive function intact; pupils equally reactive to light and accomodation; cranial nerves II-XII grossly normal, moving all 4 extremities however bilateral lower extremity severely limited secondary to recent operative lumbar intervention with prior to the severe canal stenosis and debility, severe neuropathy, drank accordingly severely globally decreased. Psychiatric: affect appears, admits to suicidal ideations but no active plans, severe depression, does not appear acutely anxious. - Physical Exam Vital Signs Temp Pulse Resp BP Pulse Ox 97.9 F 102 H 17 147/86 H 94 03/22/18 14:50 03/22/18 19:17 03/22/18 19:17 03/22/18 19:17 03/22/18 19:17 Oxygen Delivery Method Room Air Weight: 212 lb 0.662 oz Body Mass Index (BMI) 34.2 Finger Stick Blood Glucose 137 Laboratory Tests Past 24 Hrs 03/22/18 03/22/18 03/22/18 15:45 15:45 15:45 WBC 6.9 RBC 4.61 Hgb 12.8 Hct 39.9 MCV 86.6 MCH 27.8 MCHC 32.1 RDW 14.6 RDW Differential 46.2 H Plt Count 185 MPV 10.4 Immature Gran % (Auto) 0.300 Neut % (Auto) 60.2 Lymph % (Auto) 29.6 [place] % (Auto) 5.4 Eos % (Auto) 4.1 Baso % (Auto) 0.4 Absolute Neuts (auto) 4.2 Absolute Lymphs (auto) 2.04 Total Counted Not Reportable Sodium 142 Potassium 4.0 Chloride 109 H Carbon Dioxide 22.0 Anion Gap 11 BUN 15 Creatinine 0.69 Estim Creat Clear Calc 85.23 Est GFR (MDRD) Af Amer 112 Est GFR (MDRD) Non-Af 93 BUN/Creatinine Ratio 21.7 H Glucose 116 H Calcium 10.0 Total Bilirubin 0.40 Direct Bilirubin 0.12 AST 9 L ALT 17 Alkaline Phosphatase 95 Total Protein 7.2 Albumin 3.3 Globulin 3.9 Urine Color Urine Clarity Urine pH Ur Specific [place] Urine Protein Urine Glucose (UA) Urine Ketones Urine Occult Blood Urine Nitrite Urine Bilirubin Urine Urobilinogen Ur Leukocyte Esterase Urine RBC Urine WBC Ur Squamous Epith Cells Ur Transition Epith Cell Urine Bacteria Hyaline Casts Urine Mucus Urine Opiates Screen Urine Methadone Screen Acetaminophen Ur Barbiturates Screen Ur Phencyclidine Scrn Ur Amphetamines Screen U Methamphetamin-MDMA U Benzodiazepines Scrn Urine Cocaine Screen U Cannabinoids Screen Ur Drug Screen Comment Ethyl Alcohol 03/22/18 03/22/18 03/22/18 16:24 16:24 18:45 WBC RBC Hgb Hct MCV MCH MCHC RDW RDW Differential Plt Count MPV Immature Gran % (Auto) Neut % (Auto) Lymph % (Auto) [place] % (Auto) Eos % (Auto) Baso % (Auto) Absolute Neuts (auto) Absolute Lymphs (auto) Total Counted Sodium Potassium Chloride Carbon Dioxide Anion Gap BUN Creatinine Estim Creat Clear Calc Est GFR (MDRD) Af Amer Est GFR (MDRD) Non-Af BUN/Creatinine Ratio Glucose Calcium Total Bilirubin Direct Bilirubin AST ALT Alkaline Phosphatase Total Protein Albumin Globulin Urine Color Yellow Urine Clarity Cloudy Urine pH 5.0 Ur Specific [place] 1.025 Urine Protein 30 H Urine Glucose (UA) Normal Urine Ketones 15 H Urine Occult Blood 25 H Urine Nitrite Positive H Urine Bilirubin 1 H Urine Urobilinogen Normal Ur Leukocyte Esterase 500 H Urine RBC 0 SEEN Urine WBC 50-100 SEEN Ur Squamous Epith Cells 0-5 SEEN Ur Transition Epith Cell 0-5 SEEN Urine Bacteria 3+ Hyaline Casts 0-5 SEEN Urine Mucus 0 SEEN Urine Opiates Screen POSITIVE H Urine Methadone Screen NEGATIVE Acetaminophen Pending Ur Barbiturates Screen NEGATIVE Ur Phencyclidine Scrn NEGATIVE Ur Amphetamines Screen NEGATIVE U Methamphetamin-MDMA NEGATIVE U Benzodiazepines Scrn NEGATIVE Urine Cocaine Screen NEGATIVE U Cannabinoids Screen NEGATIVE Ur Drug Screen Comment Ethyl Alcohol Pending Assessment/Plan All Active Problems (Last Updated 02/26/18 @ 16:26 by Kristie Collins) Suicidal thoughts (Acute) Recurrent UTI (Acute) Muscle weakness (Acute) The patient is a 57 y/o F w/ PMHx: Depression and Anxiety, Obesity, Chronic COPD, Former Tobacco use, Chronic Headaches, Spinal stenosis w/ severe radiculopathy with 2017 cervical surgery and recent 12/2017 [facility] lumbar surgery w/ following debility and near BL LE paraplegia requiring SNF placement following w/ recent discharge ~ 3 weeks ago w/ following transition to home decreased energy, worsened back pain, lethargy, depressed mood with family reported patient admission suicidal thoughts but no plan, worsened over the last 24-48 hours. (1) Acute Urinary Tract Infection: Will admit to [facility] upon ED evaluation remarkable, pending UCx, continue IVFs, monitor I/Os, continue IV Rocephin w/ transition as able pending sensitivities and speciation. PT, OT, CM consulted for discharge planning with SNF Placement needs given underlying debility now exacerbation by acute presentation. (2) Severe major depression with suicidal ideations, anxiety: Evaluated by crisis thoroughly in the emergency room and at this time do not feel that she is a suicide risk, encourage patient to follow-up with psychiatry upon discharge to halfway facility. We will initiate patient on low-dose sertraline regimen with titration upward over the next several weeks close monitoring, continue low-dose Ativan as needed home regimen. TSH pending. (3) Acute on Chronic Intractable Lumbar Back Pain w/ Severe Neuropathy w/ Canal Stenosis, Recent Intervention, BL LE Paraplegia: Will maintain on fall precautions, frequent positioning, po/IV pain regimen, initiate DRAPERY ESTIMATOR if oral/IV PRN regimen not sufficiency, flexeril PRN, continue home gabapentin and baclofen regimen, anti-emetics, bowel regimen. Will consult PT and OT for evaluation. 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 Will request evaluation per Dr. Nevarez to assure not lost to follow-up given mass appearance and patient/family admitted missing visits secondary to debility. (5) Stage I coccyx decubitus ulcer: Contrary to positioning, frequent repositioning every 2, he will boots to be placed as well, barrier regimen. (6) Hypothyroidism: Continue home synthroid regimen, TSH pending. (7) Chronic headaches: Continue home to Paramax regimen. (8) Chronic COPD: ATC duonebs, PRN albuterol, HOB, IS parameters. (9) Obesity: Weight loss and lifestyle changes encouraged. (10) GERD: Famotidine. (11) DVT prophylaxis: SCDs, lovenox. Code Visit Inpatient E&M: 17180 Init Hosp L3
[2018-03-22] MEDS: Ceftriaxone 1 GM/50 ML BAG IV (20:09)
[2018-03-22 20:12] LABS: Acetaminophen (Tylenol) Level < 2.0 ug/mL (10.0-30.0)
[2018-03-22 21:23] VITALS: BMI 31.9
[2018-03-22 21:48] LABS: Magnesium 1.2 mg/dL (1.6-2.6)
[2018-03-22 21:54] VITALS: BP 102/76; PULSE 92; RESP 16; TEMP 37; O2SAT 95
[2018-03-22 21:59] VITALS: BMI 32.0
[2018-03-22] MEDS: traZODone 50 MG Tablet PO (22:29)
[2018-03-22] MEDS: morphine SR 15 MG Tablet PO (22:30)
[2018-03-22] MEDS: Gabapentin 300 MG Capsule 900 MG PO (22:31)
[2018-03-22] MEDS: Topiramate 25 MG Tablet PO (22:31)
[2018-03-22] MEDS: Sertraline 50 MG Tablet PO (22:32)
[2018-03-22] MEDS: Famotidine 20 MG Tablet PO (22:32)
[2018-03-22] MEDS: Senna Tablet 1 TABLET PO (22:33)
[2018-03-22] MEDS: Cyanocobalamin 500 MCG Tablet 1000 MCG PO (22:33)
[2018-03-22] MEDS: LORazepam 1 MG Tablet PO (22:43)
[2018-03-22] MEDS: Acetaminophen 325 MG Tablet 650 MG PO (23:40)
[2018-03-23] VITALS (8 sets, daily range): BP systolic 113–129; BP diastolic 66–73; PULSE 78–90; RESP 16–18; TEMP 36.9–37.6; O2SAT 93–98
[2018-03-23 06:23] LABS: Absolute Neutrophil Count 3.1 X10^3/uL (2.0-7.7); Basophil# 0.04 X10^3/uL; Basophil% 0.7 % (0-1); Eosinophil# 0.19 X10^3/uL; Eosinophils% 3.4 % (0-5); Hematocrit 37.1 % (37-47); Hemoglobin 11.7 g/dl (12.0-15.0); Lymphocyte % 34.1 % (19-41); Mean Corp Hgb Conc 31.5 g/gl (32-36); Mean Corpuscular Hgb 27.4 pg (27.0-32.0); Mean Corpuscular Volume 86.9 fL (81-99); Monocyte# 0.37 X10^3/uL; Monocyte% 6.6 % (0-10); Neutrophil # 3.05 X10^3/uL (2.7-7.7); Neutrophil % 54.8 % (47-70); Platelet Count 179 K/mm3 (150-450); RBC Distribution Width CV 14.7 % (11.6-14.6); RBC Distribution Width SD 45.9 fl (35.1-43.9); Red Blood Count 4.27 M/mm3 (4.2-5.4); White Blood Count 5.6 K/mm3 (4.4-11.0)
[2018-03-23 06:28] LABS: POSITIVE COUNT NO; POSITIVE DIFFERENTIAL NO; POSITIVE MORPHOLOGY NO
[2018-03-23 06:37] LABS: Anion Gap 12 (5-15); BUN 14 mg/dL (7-18); BUN/Creat Ratio 24.1 RATIO (10-20); Calcium,Total 9.4 mg/dL (8.5-10.1); Chloride 111 mmol/L (98-107); Creatinine, Serum 0.58 mg/dL (0.55-1.02); EST Glomerular Filtration Rate 113 mL/min (>60); Est Glom Filt Rate - Afr Amer 137 mL/min (>60); Estimated Creatinine Clearance 101.39 ml/min; Glucose 118 mg/dL (74-106); Potassium 3.8 mmol/L (3.5-5.1); Sodium Level 145 mmol/L (136-145)
[2018-03-23] MEDS: 0.9% Normal Saline 1,000 ML 100 ML IV ×2 (06:43→13:58)
[2018-03-23] MEDS: morphine SR 15 MG Tablet PO ×3 (06:44→21:14)
[2018-03-23] MEDS: Levothyroxine 150 MCG Tablet PO (06:45)
[2018-03-23] MEDS: Ipratropium/Albuterol Sulfate 3 ML AMPUL.NEB INHALATION ×3 (06:45→18:52)
[2018-03-23 07:36] LABS: Bedside Glucose 119 mg/dL (70-110)
[2018-03-23] MEDS: Multivitamins,Ther W-Minerals Tablet 1 TABLET PO (08:52)
[2018-03-23] MEDS: Magnesium Oxide 400 MG Tablet PO (08:53)
[2018-03-23] MEDS: Ferrous Gluconate 325 MG Tablet PO (08:53)
[2018-03-23] MEDS: Gabapentin 300 MG Capsule 600 MG PO ×2 (08:53→16:49)
[2018-03-23] MEDS: Polyethylene Glycol 3350 17 GM PACKET PO (08:53)
[2018-03-23] MEDS: Calcium Carb/Vitamin D 1 TABLET Tablet PO ×2 (08:53→16:49)
[2018-03-23] MEDS: Topiramate 25 MG Tablet PO ×2 (08:54→21:15)
[2018-03-23] MEDS: Sertraline 50 MG Tablet PO (08:54)
[2018-03-23] MEDS: Enoxaparin 40 MG/0.4 ML Syringe SC (08:54)
[2018-03-23] MEDS: Famotidine 20 MG Tablet PO ×2 (08:54→21:15)
[2018-03-23] MEDS: Senna Tablet 1 TABLET PO ×2 (08:54→21:15)
[2018-03-23] MEDS: oxyCODONE 5 MG Tablet PO ×2 (08:57→19:43)
[2018-03-23] MEDS: Ceftriaxone 1 GM/50 ML BAG IV (10:17)
[2018-03-23 11:21] LABS: Bedside Glucose 105 mg/dL (70-110)
--- NOTE | 2018-03-23 11:30 | CASEMGMT ---
Social Work : Met with patient to discuss SNF placement as RN CM state that patient will need and is willing to go to SNF for continued therapy. Patient states that she was at [facility] recently and would like to return there. Will call [facility] for bed availability. TC to Samreen at [facility]. Messge left for Samreen to call this SW. PLAN: Patient to be discharged to SNF pending acceptance and precert. FAROOQ Wiggins
--- NOTE | 2018-03-23 12:55 | PCM.PROGNOTE ---
<Aimee Mcbride - Last Filed: 03/23/18 13:13> Subjective: Patient seen and examined. Very flat affect, soft spoken. Complains of back pain. States she was recently kicked out of pain management program with Dr. Huerta. States her primary care physician does not believe that she is paralyzed. She does state she is able to move lower extremities but unable to walk. Wishes to go to [facility] at discharge. Denies suicidal ideations. No other current complaints. - Physical Exam General: Alert, Oriented x3, Cooperative, No apparent distress HEENT: Atraumatic, PERRLA, EOMI, Normocephalic Neck: Supple, No JVD, Negative Carotid Bruits Lungs: Clear to auscultation, Diminished Cardiovascular: Regular rate, Regular Rhythm, Normal S1, Normal S2, No murmurs Abdomen: Bowel Sounds Present, Soft, Non Tender, Non-Distended, Obese Extremities: No clubbing, No cyanosis, No edema, Capillary Refill Less than 3 Seconds Skin: No rashes, No breakdown, - - Abdominal Steri-Strips intact, no redness or drainage. Musculoskeletal: No Tenderness to Palpation of Joints or Extremities Neurological: Cranial nerves II-XII grossly intact, - - Lower extremity weakness Psych/Mental Status: Flat Affect, Depressed Vital Signs Temp Pulse Resp BP Pulse Ox 98.8 F 78 16 117/71 94 03/23/18 11:56 03/23/18 11:56 03/23/18 11:56 03/23/18 11:56 03/23/18 11:56 Oxygen Delivery Method Room Air Weight: 198 lb 3.129 oz Body Mass Index (BMI) 31.9 Intake and Output for Last 24 Hours 03/21/18 03/22/18 03/23/18 23:59 23:59 23:59 Intake Total 2150 / 2150 Output Total 1500 / 1500 Balance 650 / 650 Laboratory Tests Past 24 Hrs 03/23/18 03/23/18 05:45 05:45 WBC 5.6 RBC 4.27 Hgb 11.7 L Hct 37.1 MCV 86.9 MCH 27.4 MCHC 31.5 L RDW 14.7 H RDW Differential 45.9 H Plt Count 179 MPV 11.0 Immature Gran % (Auto) 0.400 Neut % (Auto) 54.8 Lymph % (Auto) 34.1 [place] % (Auto) 6.6 Eos % (Auto) 3.4 Baso % (Auto) 0.7 Absolute Neuts (auto) 3.1 Absolute Lymphs (auto) 1.90 Total Counted Not Reportable Sodium 145 Potassium 3.8 Chloride 111 H Carbon Dioxide 22.0 Anion Gap 12 BUN 14 Creatinine 0.58 Estim Creat Clear Calc 101.39 Est GFR (MDRD) Af Amer 137 Est GFR (MDRD) Non-Af 113 BUN/Creatinine Ratio 24.1 H Glucose 118 H Calcium 9.4 POC Glucose 03/23/18 03/23/18 11:18 06:41 POC Glucose 105 119 H Medical Necessity - Tobacco Use Smoking Status: Former smoker Tobacco Use: Cigarettes Assessment/Plan All Active Problems (Last Updated 02/26/18 @ 16:26 by Kristie Collins) Muscle weakness (Acute) 1. Acute suspected gram-negative UTI-continue IV Rocephin pending cultures. Patient complains of mild dysuria. Denies fever, chills. 2. Physical debility, weakness secondary to acute on chronic intractable lumbar back pain with severe nephropathy-patient with recent lumbar surgery December 2017. She reports bilateral lower extremity paraplegia although able to move bilateral lower extremities. She notes left lower extremity with greater weakness than right side. Recently discharged from [facility] 3 weeks ago. PT/OT. Patient wishes to be discharged to [facility]. CM involved. Continue as needed pain regimen, gabapentin, baclofen, as needed Flexeril. Patient notes she was recently discharged from pain management, Dr. Huerta for unclear reasons. 3. 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 Abdominal Steri-Strips without evidence of infection. 4. Stage I decubitus coccyx ulcer, present on admission-frequent position changes. 5. Severe major depression/anxiety, documented suicidal ideations on admission-patient denies further suicidal ideations. Evaluated by crisis and emergency room and it was not felt that patient was an immediate risk. Continue home medication regimen. Encourage outpatient psychiatry follow-up. 6. Hypothyroidism-TSH 25. TSH on 03/05/2018 1.3. Suspect this is secondary to noncompliance with medication regimen following discharge from [facility] 3 weeks ago. Recommend continuing current regimen and repeat TSH following discharge. 6. Chronic headaches-continue home paramedics regimen. 7. Chronic COPD-no acute exacerbation. As needed albuterol. 8. GERD-continue famotidine regimen. 9. Obesity-encourage diet and lifestyle modifications. Nutrition consult. DVT prophylaxis-SCDs, Lovenox. Discharge planning: SNF pending pre-cert. This patient was seen by SHANE FlanneryC under the supervision of Dr. Aguayo. <DedeHelena E - Last Filed: 03/23/18 13:36> - Physical Exam Vital Signs Temp Pulse Resp BP Pulse Ox 98.8 F 78 16 117/71 94 03/23/18 11:56 03/23/18 13:14 03/23/18 13:14 03/23/18 11:56 03/23/18 11:56 Oxygen Delivery Method Room Air Weight: 198 lb 3.129 oz Body Mass Index (BMI) 31.9 Intake and Output for Last 24 Hours 03/21/18 03/22/18 03/23/18 23:59 23:59 23:59 Intake Total 2150 / 2150 Output Total 1500 / 1500 Balance 650 / 650 Laboratory Tests Past 24 Hrs 03/23/18 03/23/18 05:45 05:45 WBC 5.6 RBC 4.27 Hgb 11.7 L Hct 37.1 MCV 86.9 MCH 27.4 MCHC 31.5 L RDW 14.7 H RDW Differential 45.9 H Plt Count 179 MPV 11.0 Immature Gran % (Auto) 0.400 Neut % (Auto) 54.8 Lymph % (Auto) 34.1 [place] % (Auto) 6.6 Eos % (Auto) 3.4 Baso % (Auto) 0.7 Absolute Neuts (auto) 3.1 Absolute Lymphs (auto) 1.90 Total Counted Not Reportable Sodium 145 Potassium 3.8 Chloride 111 H Carbon Dioxide 22.0 Anion Gap 12 BUN 14 Creatinine 0.58 Estim Creat Clear Calc 101.39 Est GFR (MDRD) Af Amer 137 Est GFR (MDRD) Non-Af 113 BUN/Creatinine Ratio 24.1 H Glucose 118 H Calcium 9.4 POC Glucose 03/23/18 03/23/18 11:18 06:41 POC Glucose 105 119 H Assessment/Plan Hospitalist note: I am seeing this patient in conjunction with Aimee Mcbride. I independently seen and examined the patient. Progress note above and laboratory data and I concur with the above treatment plan. Patient complained of back pain. She states that her left leg is paralyzed but she has been using her walker to ambulate at home. She had 2 major back surgeries one is back in March, and another one in December,. She has been having issues with follow-up with her neurosurgeon. [facility] although she is not improving because of insurance issues. She had her left complex ovarian cyst status post surgery that was done on March 07, 2018 by BULLET LUBRICANT MIXER. Vital signs are stable. - Physical Exam General: Alert, Oriented x3, Cooperative, No apparent distress. HEENT: Atraumatic, PERRLA, EOMI. Neck: Supple, No JVD, Negative Carotid Bruits, Trachea Midline, Thyroid Normal. Lungs: Clear to auscultation, Normal air movement, No rhonchi, No wheeze, No rales. Cardiovascular: Regular rate, Regular Rhythm, Normal S1, Normal S2, PMI Normal. Abdomen: Bowel Sounds Present, Soft, minimal tenderness, Non-Distended, No Hepato-splenomegaly. Extremities: No clubbing, No cyanosis, No edema Skin: No rashes, No breakdown Neurological: Neuro grossly intact Vital Signs are stable. Assessment and plan: #1 acute cystitis: On IV Rocephin. Her vital signs are stable, afebrile. Urine culture revealed presumptive E. coli, final is pending. Her routine blood work was unremarkable. Plan to continue same treatment. #2 complex left ovarian cyst: Status post surgery that was done 2 weeks ago. She looks stable from this point. #3 stage I decubitus ulcer: Appropriate dressing, frequent position changes. #3 hypothyroidism: TSH was high elevated. It was normal 2 weeks ago. Likely due to noncompliance. We will continue levothyroxine for now, patient will need repeat TSH in 2 weeks. #4 chronic back pain/status post multiple back surgeries/debility/bilateral lower extremity weakness more on the right side: Patient had 2 major back surgeries on March, and December,. Our plan is to control her pain, placement to custodial facility, I recommend follow-up with her neurosurgeon as outpatient. #5 severe depression/anxiety: At this time, patient denied any suicidal ideations or intentions. She was evaluated by mental health crisis yesterday at the ER and stated that she is not suicidal. She is on Zoloft. #6 other chronic medical problems: Stable, continue current medications as above. This note was generated with [employer]rikation software. It may contain incorrect words, spelling, and punctuation that were not noted in checking the note before signing. Code Visit Inpatient E&M: 49350 Subs Hosp L2
--- NOTE | 2018-03-23 13:00 | CASEMGMT ---
Social Work: Returned call from Samreen at [facility]. Samreen states that [facility] is unable to accept patient at this time. Spoke with patient again in room. Patient aware that [facility] is unable to accept. Patient states that [facility] or [facility] would be second chose. TC to Maritza at [facility]. Maritza states that they are not in network with [employer] and patient's cost would be 43% of the cost of patient stay. TC to [facility]. Spoke with Pam Harmon who is requesting referral be faxed. PLAN: Patient to be discharged to SNF once accepted and precert obtained. FAROOQ Wiggins
--- NOTE | 2018-03-23 13:22 | CASEMGMT ---
Social Work Note Referral faxed to Pam Harmon at [facility] for review. Will await confirmation of ability to accept or decline. Plan: SNF pending acceptance and pre-cert. Aimee Corral, MATRIX REPAIRER, PROFESSIONAL GOLF TOURNAMENT PLAYER
--- NOTE | 2018-03-23 14:00 | CASEMGMT ---
Social Work: Met with patient in room. Patient aware that out of pocket cost to go to [facility] would be 43% of the cost of patient stay. Patient aware that referral was faxed to [facility]. PLAN: Patient to be discharged to SNF when accepted and pre cert obtained. FAROOQ Wiggins
--- NOTE | 2018-03-23 14:30 | CASEMGMT ---
Social Work: TC from Lydia Corral requesting Crisis progress note be faxed to [facility] per Monica Melendez request. Crisis not faxed.
--- NOTE | 2018-03-23 14:31 | CASEMGMT ---
Social Work Note Call from CARMELITA Anderson at [facility], inquiring if the pt is still having SI and when pre-cert can be started. Inform that will have FAROOQ Courtney, contact with that information. Spoke with FAROOQ Courtney, and confirmed that crisis did evaluate and clear and the pt. Per FAROOQ Courtney, the pt is stable for discharge once pre-cert obtained (anticipate that this will be Tuesday 03/27). FAROOQ Courtney, to fax crisis progress note to [facility], this keno writer / runner to notify Monica. Placed call to Monica. Updated to crisis note will be faxed shortly and to initiate pre-cert as pt would come skilled. No further needs at this time. Plan: [facility] pending pre-cert. Aimee Corral, BATTERY TESTER FIELD, RAYON CONER
--- NOTE | 2018-03-23 15:15 | CASEMGMT ---
Social Work: TC from Jyoti Mckinney from [facility]. Jyoti states they are able to accept patient but that patient is at day 21 of her 100 skilled days from [facility] and will have a $167.00 copay per day. Jyoti recommending patient apply for Medicaid to assist with copay. Jyoti states they will start pre cert today. Met with patient in room and spoke with patient's daughter Gina over the phone. Both aware that patient will have a $167.00 copay per day. Patient given a Medicaid application and encouraged daughter to help patient fill it out and turn into [employer]. Patient and daughter verbalize understanding. Both aware that precert will be started today but determination most likely will not be until Monday (as Monday is holiday). Will follow to assist with D/C planning. PLAN: Patient to be discharged to [facility] when medically ready. FAROOQ Centeno
[2018-03-23] MEDS: Gabapentin 300 MG Capsule 900 MG PO (21:14)
[2018-03-23] MEDS: Cyanocobalamin 500 MCG Tablet 1000 MCG PO (21:16)
[2018-03-23] MEDS: LORazepam 1 MG Tablet PO (21:18)
[2018-03-24] VITALS (7 sets, daily range): BP systolic 111–128; BP diastolic 52–78; PULSE 70–87; RESP 14–18; TEMP 36.7–37.1; O2SAT 97–98
[2018-03-24] MEDS: 0.9% Normal Saline 1,000 ML 100 ML IV
[2018-03-24] MEDS: oxyCODONE 5 MG Tablet PO ×3 (04:07→19:41)
[2018-03-24] MEDS: morphine SR 15 MG Tablet PO ×3 (05:53→21:36)
[2018-03-24] MEDS: Levothyroxine 150 MCG Tablet PO (05:54)
[2018-03-24] MEDS: Ipratropium/Albuterol Sulfate 3 ML AMPUL.NEB INHALATION ×3 (07:13→19:24)
[2018-03-24] MEDS: Calcium Carb/Vitamin D 1 TABLET Tablet PO ×2 (08:38→17:41)
[2018-03-24] MEDS: Gabapentin 300 MG Capsule 600 MG PO ×2 (08:38→17:42)
[2018-03-24] MEDS: Multivitamins,Ther W-Minerals Tablet 1 TABLET PO (08:39)
[2018-03-24] MEDS: Ferrous Gluconate 325 MG Tablet PO (08:39)
[2018-03-24] MEDS: Enoxaparin 40 MG/0.4 ML Syringe SC (11:00)
[2018-03-24] MEDS: Magnesium Oxide 400 MG Tablet PO (11:01)
[2018-03-24] MEDS: Topiramate 25 MG Tablet PO ×2 (11:02→21:36)
[2018-03-24] MEDS: Famotidine 20 MG Tablet PO ×2 (11:02→21:35)
[2018-03-24] MEDS: Senna Tablet 1 TABLET PO ×2 (11:02→21:35)
[2018-03-24] MEDS: Sertraline 50 MG Tablet PO (11:03)
--- NOTE | 2018-03-24 12:31 | PCM.PROGNOTE ---
<Aimee Mcbride - Last Filed: 03/24/18 12:36> Subjective: Patient seen and examined. Complains of urinary frequency and dribbling. Denies fever, chills. Denies other current complaints. Pending pre-CERT to SNF. - Physical Exam General: Alert, Oriented x3, Cooperative, No apparent distress HEENT: Atraumatic, PERRLA, EOMI, Normocephalic Neck: Supple, No JVD, Negative Carotid Bruits Lungs: Clear to auscultation, Diminished Cardiovascular: Regular rate, Regular Rhythm, Normal S1, Normal S2, No murmurs Abdomen: Bowel Sounds Present, Soft, Non Tender, Non-Distended Extremities: No clubbing, No cyanosis, No edema, Capillary Refill Less than 3 Seconds Skin: No rashes, No breakdown, - - Abdominal Steri-Strips intact, no redness or drainage. Musculoskeletal: No Tenderness to Palpation of Joints or Extremities Neurological: Cranial nerves II-XII grossly intact, - - Lower extremity weakness Psych/Mental Status: Flat Affect Vital Signs Temp Pulse Resp BP Pulse Ox 98.7 F 83 16 111/61 97 03/24/18 08:35 03/24/18 08:35 03/24/18 08:35 03/24/18 08:35 03/24/18 08:35 Oxygen Delivery Method Room Air Weight: 198 lb 3.129 oz Body Mass Index (BMI) 31.9 Intake and Output for Last 24 Hours 03/22/18 03/23/18 03/24/18 23:59 23:59 23:59 Intake Total 3654 / 3654 1731 / 1731 Output Total 1999 300 / 300 Balance 1654 / 1654 1431 / 1431 Medical Necessity - Tobacco Use Smoking Status: Former smoker Tobacco Use: Cigarettes Assessment/Plan All Active Problems (Last Updated 02/26/18 @ 16:26 by Kristie Collins) Muscle weakness (Acute) 1. Acute E. coli/+ESBL UTI-antibiotic regimen switched to IV meropenem. ID consult. 2. Physical debility, weakness secondary to acute on chronic intractable lumbar back pain with severe nephropathy-patient with recent lumbar surgery December 2017. She reports bilateral lower extremity paraplegia although able to move bilateral lower extremities. She notes left lower extremity with greater weakness than right side. Recently discharged from SNF 3 weeks ago. PT/OT. SNF pending pre-cert. CM involved. Continue as needed pain regimen, gabapentin, baclofen, as needed Flexeril. Patient notes she was recently discharged from pain management, Dr. Huerta for unclear reasons. 3. 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 Abdominal Steri-Strips without evidence of infection. 4. Stage I decubitus coccyx ulcer, present on admission-frequent position changes. 5. Severe major depression/anxiety, documented suicidal ideations on admission-patient denies further suicidal ideations. Evaluated by crisis and emergency room and it was not felt that patient was an immediate risk. Continue home medication regimen. Encourage outpatient psychiatry follow-up. 6. Hypothyroidism-TSH 25. TSH on 03/05/2018 1.3. Suspect this is secondary to noncompliance with medication regimen following discharge from SNF 3 weeks ago. Recommend continuing current regimen and repeat TSH following discharge. 6. Chronic headaches-continue home paramedics regimen. 7. Chronic COPD-no acute exacerbation. As needed albuterol. 8. GERD-continue famotidine regimen. 9. Obesity-encourage diet and lifestyle modifications. Nutrition consult. DVT prophylaxis-SCDs, Lovenox. Discharge planning: SNF pending pre-cert. This patient was seen by SOFIA Flannery under the supervision of Dr. Aguayo. <Helena Aguayo E - Last Filed: 03/24/18 13:42> - Physical Exam Vital Signs Temp Pulse Resp BP Pulse Ox 98.7 F 79 18 111/61 97 03/24/18 08:35 03/24/18 13:36 03/24/18 13:36 03/24/18 08:35 03/24/18 08:35 Oxygen Delivery Method Room Air Weight: 198 lb 3.129 oz Body Mass Index (BMI) 31.9 Intake and Output for Last 24 Hours 03/22/18 03/23/18 03/24/18 23:59 23:59 23:59 Intake Total 3654 / 3654 1731 / 1731 Output Total 1999 300 / 300 Balance 1654 / 1654 1431 / 1431 Assessment/Plan Hospitalist note: I am seeing this patient in conjunction with Aimee Mcbride. I independently seen and examined the patient. Progress note above and laboratory data and I concur with the above treatment plan. Again, she complained of back pain but it is getting better. Denied any complaints. Her vital signs are stable. - Physical Exam General: Alert, Oriented x3, Cooperative, No apparent distress. HEENT: Atraumatic, PERRLA, EOMI. Neck: Supple, No JVD, Negative Carotid Bruits, Trachea Midline, Thyroid Normal. Lungs: Clear to auscultation, Normal air movement, No rhonchi, No wheeze, No rales. Cardiovascular: Regular rate, Regular Rhythm, Normal S1, Normal S2, PMI Normal. Abdomen: Bowel Sounds Present, Soft, minimal tenderness, Non-Distended, No Hepato-splenomegaly. Extremities: No clubbing, No cyanosis, No edema Skin: No rashes, No breakdown Neurological: Neuro grossly intact Vital Signs are stable. Assessment and plan: #1 acute cystitis: On IV Rocephin. Her vital signs are stable, afebrile. Urine culture revealed ESBL E. coli. Her routine blood work was unremarkable. Plan: DC IV Rocephin, start IV meropenem, consult infectious disease. #2 complex left ovarian cyst: Status post surgery that was done 2 weeks ago. She looks stable from this point. #3 stage I decubitus ulcer: Appropriate dressing, frequent position changes. #3 hypothyroidism: TSH was high elevated. It was normal 2 weeks ago. Likely due to noncompliance. continue levothyroxine for now, patient will need repeat TSH in 2 weeks. #4 chronic back pain/status post multiple back surgeries/debility/bilateral lower extremity weakness more on the right side: Patient had 2 major back surgeries on March, and December,. Our plan is to control her pain, placement to residential facility, I recommend follow-up with her neurosurgeon as outpatient. #5 severe depression/anxiety: At this time, patient denied any suicidal ideations or intentions. She was evaluated by mental health crisis yesterday at the ER and stated that she is not suicidal. She is on Zoloft. #6 other chronic medical problems: Stable, continue current medications as above. This note was generated with [employer] software. It may contain incorrect words, spelling, and punctuation that were not noted in checking the note before signing. Code Visit Inpatient E&M: 59660 Subs Hosp L2
[2018-03-24] MEDS: Gabapentin 300 MG Capsule 900 MG PO (21:35)
[2018-03-24] MEDS: Cyanocobalamin 500 MCG Tablet 1000 MCG PO (21:35)
[2018-03-24] MEDS: 0.9% NaCl Peripheral Flush Adult/Peds IV (21:36)
[2018-03-24] MEDS: LORazepam 1 MG Tablet PO (21:48)
[2018-03-25 01:52] VITALS: BP 113/66; PULSE 69; RESP 16; TEMP 36.1; O2SAT 98
[2018-03-25] MEDS: oxyCODONE 5 MG Tablet PO ×4 (01:54→20:06)
[2018-03-25] MEDS: Levothyroxine 150 MCG Tablet PO (06:07)
[2018-03-25] MEDS: morphine SR 15 MG Tablet PO ×3 (06:07→22:36)
[2018-03-25 06:55] VITALS: O2SAT 98
[2018-03-25 07:21] VITALS: BP 103/60; PULSE 70; RESP 18; TEMP 36.4; O2SAT 98
[2018-03-25 08:16] VITALS: BP 107/62; PULSE 75; RESP 16; TEMP 36.6; O2SAT 96
[2018-03-25] MEDS: Calcium Carb/Vitamin D 1 TABLET Tablet PO ×2 (08:18→16:06)
[2018-03-25] MEDS: Gabapentin 300 MG Capsule 600 MG PO ×2 (08:18→16:05)
[2018-03-25] MEDS: Multivitamins,Ther W-Minerals Tablet 1 TABLET PO (08:19)
[2018-03-25] MEDS: Ferrous Gluconate 325 MG Tablet PO (08:20)
[2018-03-25] MEDS: Magnesium Oxide 400 MG Tablet PO (10:24)
[2018-03-25] MEDS: Enoxaparin 40 MG/0.4 ML Syringe SC (10:24)
[2018-03-25] MEDS: Topiramate 25 MG Tablet PO ×2 (10:25→22:36)
[2018-03-25] MEDS: Senna Tablet 1 TABLET PO ×2 (10:25→22:37)
[2018-03-25] MEDS: Famotidine 20 MG Tablet PO ×2 (10:25→22:36)
[2018-03-25] MEDS: Sertraline 50 MG Tablet PO (10:26)
[2018-03-25] MEDS: Baclofen 10 MG Tablet PO (10:35)
--- NOTE | 2018-03-25 11:06 | PCM.PROGNOTE ---
<Aimee Mcbride - Last Filed: 03/25/18 11:09> Subjective: Patient seen and examined. Working with Occupational Therapy. States she is sore. It urinary symptoms improved. Denies fever, chills. Denies other complaints. Ending pre-CERT to SNF. - Physical Exam General: Alert, Oriented x3, Cooperative, No apparent distress HEENT: Atraumatic, PERRLA, EOMI, Normocephalic Neck: Supple, No JVD, Negative Carotid Bruits Lungs: Clear to auscultation, Diminished Cardiovascular: Regular rate, Regular Rhythm, Normal S1, Normal S2, No murmurs Abdomen: Bowel Sounds Present, Soft, Non Tender, Non-Distended, Obese Extremities: No clubbing, No cyanosis, No edema, Capillary Refill Less than 3 Seconds Skin: No rashes, No breakdown, - - Abdominal Steri-Strips intact, no redness or drainage. Musculoskeletal: No Tenderness to Palpation of Joints or Extremities Neurological: Cranial nerves II-XII grossly intact, - - Lower extremity weakness Psych/Mental Status: Flat Affect Vital Signs Temp Pulse Resp BP Pulse Ox 97.8 F 75 16 107/62 96 03/25/18 08:16 03/25/18 08:16 03/25/18 08:16 03/25/18 08:16 03/25/18 08:16 Oxygen Delivery Method Room Air Weight: 198 lb 3.129 oz Body Mass Index (BMI) 31.9 Intake and Output for Last 24 Hours 03/23/18 03/24/18 03/25/18 23:59 23:59 23:59 Intake Total 3654 / 3654 3050 / 3050 805 / 805 Output Total 1999 / 1999 525 / 525 1250 / 1250 Balance 1654 / 1654 2525 / 2525 -445 / -445 Medical Necessity - Tobacco Use Smoking Status: Former smoker Tobacco Use: Cigarettes Assessment/Plan All Active Problems (Last Updated 02/26/18 @ 16:26 by Kristie Collins) Muscle weakness (Acute) 1. Acute E. coli/+ESBL UTI-continue IV meropenem. ID consult. 2. Physical debility, weakness secondary to acute on chronic intractable lumbar back pain with severe nephropathy-patient with recent lumbar surgery December 2017. She reports bilateral lower extremity paraplegia although able to move bilateral lower extremities. She notes left lower extremity with greater weakness than right side. Recently discharged from SNF 3 weeks ago. PT/OT. SNF pending pre-cert. CM involved. Continue as needed pain regimen, gabapentin, baclofen, as needed Flexeril. Patient notes she was recently discharged from pain management, Dr. Huerta for unclear reasons. 3. Complex ovarian cyst with recent intervention 03/07/2018-Abdominal Steri-Strips without evidence of infection. 4. Stage I decubitus coccyx ulcer, present on admission-frequent position changes. 5. Severe major depression/anxiety, documented suicidal ideations on admission-patient denies further suicidal ideations. Evaluated by crisis and emergency room and it was not felt that patient was an immediate risk. Continue home medication regimen. Encourage outpatient psychiatry follow-up. 6. Hypothyroidism-TSH 25. TSH on 03/05/2018 1.3. Suspect this is secondary to noncompliance with medication regimen following discharge from SNF 3 weeks ago. Recommend continuing current regimen and repeat TSH following discharge. 6. Chronic headaches-continue home paramedics regimen. 7. Chronic COPD-no acute exacerbation. As needed albuterol. 8. GERD-continue famotidine regimen. 9. Obesity-encourage diet and lifestyle modifications. Nutrition consult. DVT prophylaxis-SCDs, Lovenox. Discharge planning: SNF pending pre-cert. This patient was seen by SOFIA Flannery under the supervision of Dr. Aguayo. <Helena Aguayo E - Last Filed: 03/25/18 11:15> - Physical Exam Vital Signs Temp Pulse Resp BP Pulse Ox 97.8 F 75 16 107/62 96 03/25/18 08:16 03/25/18 08:16 03/25/18 08:16 03/25/18 08:16 03/25/18 08:16 Oxygen Delivery Method Room Air Weight: 198 lb 3.129 oz Body Mass Index (BMI) 31.9 Intake and Output for Last 24 Hours 03/23/18 03/24/18 03/25/18 23:59 23:59 23:59 Intake Total 3654 / 3654 3050 / 3050 805 / 805 Output Total 1999 525 / 525 1250 / 1250 Balance 1654 / 1654 2525 / 2525 -445 / -445 Assessment/Plan Hospitalist note: I am seeing this patient in conjunction with Aimee Mcbride. I independently seen and examined the patient. Progress note above and laboratory data and I concur with the above treatment plan. She is feeling better, urinary symptoms improved. Denied fever chills. Her vital signs are stable. - Physical Exam General: Alert, Oriented x3, Cooperative, No apparent distress. HEENT: Atraumatic, PERRLA, EOMI. Neck: Supple, No JVD, Negative Carotid Bruits, Trachea Midline, Thyroid Normal. Lungs: Clear to auscultation, Normal air movement, No rhonchi, No wheeze, No rales. Cardiovascular: Regular rate, Regular Rhythm, Normal S1, Normal S2, PMI Normal. Abdomen: Bowel Sounds Present, Soft, minimal tenderness, Non-Distended, No Hepato-splenomegaly. Extremities: No clubbing, No cyanosis, No edema Skin: No rashes, No breakdown Neurological: Neuro grossly intact Vital Signs are stable. Assessment and plan: #1 ESBL E. coli acute cystitis: On IV meropenem. Her vital signs are stable, afebrile. Urine culture revealed ESBL E. coli. Her routine blood work was unremarkable. Infectious disease consulted, awaiting recommendations. #2 complex left ovarian cyst: Status post surgery that was done 2 weeks ago. She looks stable from this point. #3 stage I decubitus ulcer: Appropriate dressing, frequent position changes. #3 hypothyroidism: TSH was high elevated. It was normal 2 weeks ago. Likely due to noncompliance. continue levothyroxine for now, patient will need repeat TSH in 2 weeks. #4 chronic back pain/status post multiple back surgeries/debility/bilateral lower extremity weakness more on the right side: Patient had 2 major back surgeries on March, and December,. Our plan is to control her pain, placement to nursing home facility, I recommend follow-up with her neurosurgeon as outpatient. #5 severe depression/anxiety: At this time, patient denied any suicidal ideations or intentions. She was evaluated by mental health crisis yesterday at the ER and stated that she is not suicidal. She is on Zoloft. #6 other chronic medical problems: Stable, continue current medications as above. This note was generated with [employer] dictation software. It may contain incorrect words, spelling, and punctuation that were not noted in checking the note before signing. Code Visit Inpatient E&M: 49631 Subs Hosp L2
[2018-03-25] MEDS: 0.9% NaCl Peripheral Flush Adult/Peds IV ×2 (13:44→22:37)
[2018-03-25 13:53] VITALS: BP 118/61; PULSE 74; RESP 18; TEMP 36.6; O2SAT 94
[2018-03-25] MEDS: Bisacodyl 5 MG Tablet PO (16:05)
[2018-03-25 20:00] VITALS: BP 116/60; PULSE 75; RESP 18; TEMP 36.7; O2SAT 98
[2018-03-25] MEDS: LORazepam 1 MG Tablet PO (22:37)
[2018-03-25] MEDS: Cyanocobalamin 500 MCG Tablet 1000 MCG PO (22:37)
[2018-03-25] MEDS: Gabapentin 300 MG Capsule 900 MG PO (22:37)
[2018-03-26 02:14] VITALS: BP 120/69; PULSE 66; RESP 18; TEMP 36.4; O2SAT 100
[2018-03-26] MEDS: oxyCODONE 5 MG Tablet PO ×4 (02:17→20:48)
[2018-03-26] MEDS: Levothyroxine 150 MCG Tablet PO (05:45)
[2018-03-26] MEDS: morphine SR 15 MG Tablet PO ×3 (05:45→21:51)
[2018-03-26 06:44] VITALS: O2SAT 97
[2018-03-26 08:30] VITALS: BP 118/70; PULSE 77; RESP 18; TEMP 36.3; O2SAT 97
[2018-03-26 08:31] VITALS: PULSE 80
[2018-03-26] MEDS: Magnesium Oxide 400 MG Tablet PO (08:42)
[2018-03-26] MEDS: Senna Tablet 1 TABLET PO ×2 (08:43→21:53)
[2018-03-26] MEDS: Calcium Carb/Vitamin D 1 TABLET Tablet PO ×2 (08:43→16:22)
[2018-03-26] MEDS: Topiramate 25 MG Tablet PO ×2 (08:43→21:53)
[2018-03-26] MEDS: Gabapentin 300 MG Capsule 600 MG PO ×2 (08:43→16:22)
[2018-03-26] MEDS: Famotidine 20 MG Tablet PO ×2 (08:44→21:53)
[2018-03-26] MEDS: Ferrous Gluconate 325 MG Tablet PO (08:44)
[2018-03-26] MEDS: Sertraline 50 MG Tablet PO (08:45)
[2018-03-26] MEDS: Multivitamins,Ther W-Minerals Tablet 1 TABLET PO (08:46)
--- NOTE | 2018-03-26 09:22 | PCM.PROGNOTE ---
<Aimee Mcbride - Last Filed: 03/26/18 09:26> Subjective: Patient seen and examined. Resting comfortably in bed eating breakfast. Denies current complaints. Pre-cert pending to SNF. - Physical Exam General: Alert, Oriented x3, Cooperative, No apparent distress HEENT: Atraumatic, PERRLA, EOMI, Normocephalic Neck: Supple, No JVD, Negative Carotid Bruits Lungs: Clear to auscultation, Diminished Cardiovascular: Regular rate, Regular Rhythm, Normal S1, Normal S2, No murmurs Abdomen: Bowel Sounds Present, Soft, Non Tender, Non-Distended, Obese Extremities: No clubbing, No cyanosis, No edema, Capillary Refill Less than 3 Seconds Skin: No rashes, No breakdown Musculoskeletal: No Tenderness to Palpation of Joints or Extremities Neurological: Cranial nerves II-XII grossly intact, - - Lower extremity weakness Psych/Mental Status: Flat Affect Vital Signs Temp Pulse Resp BP Pulse Ox 97.3 F L 80 18 118/70 97 03/26/18 08:30 03/26/18 08:31 03/26/18 08:30 03/26/18 08:30 03/26/18 08:30 Oxygen Delivery Method Room Air Weight: 198 lb 3.129 oz Body Mass Index (BMI) 31.9 Intake and Output for Last 24 Hours 03/24/18 03/25/18 03/26/18 23:59 23:59 23:59 Intake Total 3050 / 3050 1803 / 1803 1469 / 1469 Output Total 525 / 525 2300 / 2300 1500 / 1500 Balance 2525 / 2525 -497 / -497 -31 / -31 Medical Necessity - Tobacco Use Smoking Status: Former smoker Tobacco Use: Cigarettes Assessment/Plan All Active Problems (Last Updated 02/26/18 @ 16:26 by Kristie Collins) Muscle weakness (Acute) 1. Acute E. coli/+ESBL UTI-Day #3 IV meropenem. ID consult pending. 2. Physical debility, weakness secondary to acute on chronic intractable lumbar back pain with severe nephropathy-patient with recent lumbar surgery December 2017. She reports bilateral lower extremity paraplegia although able to move bilateral lower extremities. She notes left lower extremity with greater weakness than right side. Recently discharged from SNF 3 weeks ago. PT/OT. SNF pending pre-cert. CM involved. Continue as needed pain regimen, gabapentin, baclofen, as needed Flexeril. Patient notes she was recently discharged from pain management, Dr. Huerta for unclear reasons. 3. Complex ovarian cyst with recent intervention 03/07/2018-Abdominal Steri-Strips without evidence of infection. 4. Stage I decubitus coccyx ulcer, present on admission-frequent position changes. 5. Severe major depression/anxiety, documented suicidal ideations on admission-patient denies further suicidal ideations. Evaluated by crisis and emergency room and it was not felt that patient was an immediate risk. Continue home medication regimen. Encourage outpatient psychiatry follow-up. 6. Hypothyroidism-TSH 25. TSH on 03/05/2018 1.3. Suspect this is secondary to noncompliance with medication regimen following discharge from SNF 3 weeks ago. Recommend continuing current regimen and repeat TSH following discharge. 6. Chronic headaches-continue home paramedics regimen. 7. Chronic COPD-no acute exacerbation. As needed albuterol. 8. GERD-continue famotidine regimen. 9. Obesity-encourage diet and lifestyle modifications. Nutrition consult. DVT prophylaxis-SCDs, Lovenox. Discharge planning: SNF pending pre-cert. This patient was seen by SOFIA Flannery under the supervision of Dr. Aguayo. <Helena Aguayo - Last Filed: 03/26/18 10:40> - Physical Exam Vital Signs Temp Pulse Resp BP Pulse Ox 97.3 F L 80 18 118/70 97 03/26/18 08:30 03/26/18 08:31 03/26/18 08:30 03/26/18 08:30 03/26/18 08:30 Oxygen Delivery Method Room Air Weight: 198 lb 3.129 oz Body Mass Index (BMI) 31.9 Intake and Output for Last 24 Hours 03/24/18 03/25/18 03/26/18 23:59 23:59 23:59 Intake Total 3050 / 3050 1803 / 1803 1469 / 1469 Output Total 525 / 525 2300 / 2300 1500 / 1500 Balance 2525 / 2525 -497 / -497 - / Assessment/Plan Hospitalist note: I am seeing this patient in conjunction with Aimee Mcbride. I independently seen and examined the patient. Progress note above and laboratory data and I concur with the above treatment plan. Today, she denied any significant complaints. Back pain still there is getting better. Her vital signs are stable. - Physical Exam General: Alert, Oriented x3, Cooperative, No apparent distress. HEENT: Atraumatic, PERRLA, EOMI. Neck: Supple, No JVD, Negative Carotid Bruits, Trachea Midline, Thyroid Normal. Lungs: Clear to auscultation, Normal air movement, No rhonchi, No wheeze, No rales. Cardiovascular: Regular rate, Regular Rhythm, Normal S1, Normal S2, PMI Normal. Abdomen: Bowel Sounds Present, Soft, minimal tenderness, Non-Distended, No Hepato-splenomegaly. Extremities: No clubbing, No cyanosis, No edema Skin: No rashes, No breakdown Neurological: Neuro grossly intact Vital Signs are stable. Assessment and plan: #1 ESBL E. coli acute cystitis: On IV meropenem. Her vital signs are stable, afebrile. Urine culture revealed ESBL E. coli. Her routine blood work was unremarkable. Infectious disease consulted, awaiting recommendations. Awaiting insurance approval for placement to [facility]. #2 complex left ovarian cyst: Status post surgery that was done 2 weeks ago. She looks stable from this point. #3 stage I decubitus ulcer: Appropriate dressing, frequent position changes. #3 hypothyroidism: TSH was high elevated. It was normal 2 weeks ago. Likely due to noncompliance. continue levothyroxine for now, patient will need repeat TSH in 2 weeks. #4 chronic back pain/status post multiple back surgeries/debility/bilateral lower extremity weakness more on the right side: Patient had 2 major back surgeries on March, and December,. Our plan is to control her pain, placement to [facility] facility, I recommend follow-up with her neurosurgeon as outpatient. #5 severe depression/anxiety: At this time, patient denied any suicidal ideations or intentions. She was evaluated by mental health crisis yesterday at the ER and stated that she is not suicidal. She is on Zoloft. #6 other chronic medical problems: Stable, continue current medications as above. This note was generated with [employer] software. It may contain incorrect words, spelling, and punctuation that were not noted in checking the note before signing. Code Visit Inpatient E&M: 59538 Subs Hosp L2
[2018-03-26] MEDS: Enoxaparin 40 MG/0.4 ML Syringe SC (10:42)
[2018-03-26 13:54] VITALS: BP 123/75; PULSE 73; RESP 18; TEMP 36.5; O2SAT 98
[2018-03-26] MEDS: Bisacodyl 5 MG Tablet PO (16:21)
[2018-03-26 21:45] VITALS: BP 129/79; PULSE 73; RESP 18; TEMP 36.9; O2SAT 100
[2018-03-26] MEDS: Gabapentin 300 MG Capsule 900 MG PO (21:52)
[2018-03-26] MEDS: Cyanocobalamin 500 MCG Tablet 1000 MCG PO (21:53)
[2018-03-26] MEDS: LORazepam 1 MG Tablet PO (22:12)
[2018-03-27 03:50] VITALS: BP 141/81; PULSE 71; RESP 18; TEMP 36.4; O2SAT 98
[2018-03-27] MEDS: oxyCODONE 5 MG Tablet PO ×3 (03:59→17:47)
[2018-03-27] MEDS: Acetaminophen 325 MG Tablet 650 MG PO (03:59)
[2018-03-27] MEDS: Baclofen 10 MG Tablet PO ×3 (04:00→17:47)
--- NOTE | 2018-03-27 05:28 | NURSING ---
Infectious disease answering service aware of consult.
[2018-03-27] MEDS: Levothyroxine 150 MCG Tablet PO (06:01)
[2018-03-27] MEDS: morphine SR 15 MG Tablet PO ×3 (06:01→21:17)
[2018-03-27] MEDS: Famotidine 20 MG Tablet PO ×2 (08:39→21:17)
[2018-03-27] MEDS: Magnesium Oxide 400 MG Tablet PO (08:40)
[2018-03-27] MEDS: Calcium Carb/Vitamin D 1 TABLET Tablet PO ×2 (08:40→17:48)
[2018-03-27] MEDS: Sertraline 50 MG Tablet PO (08:40)
[2018-03-27] MEDS: Gabapentin 300 MG Capsule 600 MG PO ×2 (08:40→17:48)
[2018-03-27] MEDS: Topiramate 25 MG Tablet PO ×2 (08:41→21:18)
[2018-03-27] MEDS: Senna Tablet 1 TABLET PO ×2 (08:41→21:17)
[2018-03-27] MEDS: Ferrous Gluconate 325 MG Tablet PO (08:43)
[2018-03-27] MEDS: Multivitamins,Ther W-Minerals Tablet 1 TABLET PO (08:43)
[2018-03-27 09:30] VITALS: BP 145/81; PULSE 73; PULSE 80; RESP 18; TEMP 36.1; O2SAT 98
[2018-03-27] MEDS: Menthol/Lanolin/Calamine/Znox 113 GM Tube 1 APPLIC TOPICAL (09:42)
[2018-03-27] MEDS: Enoxaparin 40 MG/0.4 ML Syringe SC (09:43)
[2018-03-27] MEDS: Bisacodyl 5 MG Tablet PO (09:44)
--- NOTE | 2018-03-27 09:51 | PCM.EXTCARCO ---
- Diet 03/22/18 20:49 Diet: Regular Diet Food consistency:: Regular Liquid Consistency:: Regular/Thin - Routine Orders/Code Status Enema Type: Fleetz Enema Frequency: Daily PRN Suppository Type: Dulcolax 10mg Suppository Frequency: Daily PRN Routine Lab Work: - - BMP, CBC Q 2 Weeks. TSH in 2 weeks. Code Status: Full Code - Wound(s) ABD Wound Type: Surgical Incision - Suggestions for Active Care Change Position every (hours): 2 Times a day to sit in chair: 3 - Therapies Physical Therapy: Eval and Treat Occupational Therapy: Eval and Treat - Problem/Diagnosis (1) Complex ovarian cyst Status: Chronic Comment: cea and ca125 ordered Current Visit: No (2) Major depressive disorder Status: Chronic Current Visit: No (3) Anxiety Status: Chronic Current Visit: No (4) Constipation Status: Chronic Current Visit: No (5) GERD without esophagitis Status: Chronic Current Visit: No (6) Chronic cluster headache, not intractable Status: Chronic Current Visit: No (7) Age-related osteoporosis without current pathological fracture Status: Chronic Current Visit: No (8) Primary generalized (osteo)arthritis Status: Chronic Current Visit: No (9) Other intervertebral disc degeneration, lumbar region Status: Chronic Current Visit: No (10) Hypothyroidism Status: Chronic Current Visit: No (11) Anemia Status: Chronic Current Visit: No (12) COPD (chronic obstructive pulmonary disease) Status: Chronic Current Visit: No (13) Muscle weakness Status: Acute Current Visit: Yes (14) Spinal stenosis, lumbar region without neurogenic claudication Status: Chronic Current Visit: No (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 Current Visit: No (16) Chronic low back pain Status: Chronic Current Visit: No (17) Paraplegia Status: Chronic Current Visit: No (18) Tobacco use disorder Status: Chronic Current Visit: No (19) Morbid obesity Status: Chronic Current Visit: No (20) HTN (hypertension) Status: Chronic Current Visit: No (21) HLD (hyperlipidemia) Status: Chronic Current Visit: No (22) Dysthymic disorder Status: Chronic Current Visit: No (23) Diabetes mellitus type 2, uncontrolled, without complications Status: Chronic Current Visit: No (24) Chronic Airway Obstruction NEC Status: Chronic Current Visit: No (25) Cystitis Status: Acute Comment: +ESBL Current Visit: Yes - Allergies/Procedures Done in Hospital Allergies/Adverse Reactions: Allergies NSAIDS (Non-Steroidal Anti-Inflamma Allergy (Verified 03/06/18 23:48) GASTRIC BYPASS trazodone Adverse Reaction (Verified 03/22/18 23:38) Other migraine Procedures: None - Type of Care/Length of Stay Estimated LOS: Convalescent Care Less Than 30 days Type of Care Needed: Skilled Rehab Potential: Fair Prognosis: Fair - Additional Orders/Day of Discharge H&P will serve as current which was dated: 03/22/18 Day of Discharge: 03/27/18 - Dietary and Speech Recommendations Dietitian Recommendations/Changes: Rec liberal Regular diet d/t poor po intake. Rec continue ONS medpass - Follow Up Care Primary Care Physician: Kevin Bah MD [Primary Care Provider] - Please follow up with your Primary Care Physician in: 1 Week Please Follow Up With: Psychiatry When: 1-2 Weeks Please Follow Up With: Will Coemr MD When: 1-2 Weeks
--- NOTE | 2018-03-27 10:32 | PCA ---
faxed for medical records to [facility] and got the results back and placed in chart
--- NOTE | 2018-03-27 10:39 | PCM.DC.SUM ---
<Aimee Mcbride - Last Filed: 03/27/18 10:47> Discharge Date and Diagnosis - Problem List Patient Problems: Active and Suspected Problems (Last Updated 02/26/18 @ 16:26 by Kristie Collins) Cystitis (Acute) +ESBL Muscle weakness (Acute) Date of Admission: 03/22/18 Date of Discharge: 03/27/18 - Primary Discharge Diagnosis Active and Suspected Problems (Last Updated 02/26/18 @ 16:26 by Kristie Collins) 1. Acute E. coli/positive ESBL cystitis 2. Physical debility and weakness secondary to acute on chronic intractable lumbar back pain with severe nephropathy 3. Stage I decubitus coccyx ulcer, present on admission 4. Hypothyroidism with elevated TSH, suspected secondary to noncompliance with medication regimen - Secondary Discharge Diagnosis Chronic Problems (Last Updated 02/26/18 @ 16:26 by Kristie Collins) Complex ovarian cyst (Chronic) cea and ca125 ordered Major depressive disorder (Chronic) Anxiety (Chronic) Constipation (Chronic) GERD without esophagitis (Chronic) Chronic cluster headache, not intractable (Chronic) Age-related osteoporosis without current pathological fracture (Chronic) Primary generalized (osteo)arthritis (Chronic) Other intervertebral disc degeneration, lumbar region (Chronic) Hypothyroidism (Chronic) Anemia (Chronic) COPD (chronic obstructive pulmonary disease) (Chronic) Spinal stenosis, lumbar region without neurogenic claudication (Chronic) Neuromuscular scoliosis (Chronic) Chronic low back pain (Chronic) Paraplegia (Chronic) Tobacco use disorder (Chronic) Morbid obesity (Chronic) HTN (hypertension) (Chronic) HLD (hyperlipidemia) (Chronic) Dysthymic disorder (Chronic) Diabetes mellitus type 2, uncontrolled, without complications (Chronic) Chronic Airway Obstruction NEC (Chronic) Hospital Course and Treatment Dr. Gold- ID Operations: None Procedures: None Summary of Care Provided: The patient is a 57 year old F admitted 03/22/2018 due to back pain, weakness, depression. 1. Acute E. coli/+ESBL UTI-patient received IV meropenem during admission. Discharge on Bactrim for 4 more days at discharge per ID recommendations. 2. Physical debility, weakness secondary to acute on chronic intractable lumbar back pain with severe nephropathy-patient with recent lumbar surgery December 2017. She reports bilateral lower extremity paraplegia although able to move bilateral lower extremities. She notes left lower extremity with greater weakness than right side. Recently discharged from SNF 3 weeks ago. PT/OT. Patient notes she was recently discharged from pain management, Dr. Huerat for unclear reasons. SNF at discharge. 3. Complex ovarian cyst with recent intervention 03/07/2018-Abdominal Steri-Strips without evidence of infection. 4. Stage I decubitus coccyx ulcer, present on admission-frequent position changes. 5. Severe major depression/anxiety, documented suicidal ideations on admission-patient denies further suicidal ideations. Evaluated by crisis and emergency room and it was not felt that patient was an immediate risk. Continue home medication regimen. Encourage outpatient psychiatry follow-up. Patient started on sertraline 50 mg daily during admission. 6. Hypothyroidism-TSH 25. TSH on 03/05/2018 1.3. Suspect this is secondary to noncompliance with medication regimen following discharge from SNF 3 weeks ago. Recommend continuing current regimen and repeat TSH following discharge. 6. Chronic headaches-continue home paramedics regimen. 7. Chronic COPD-no acute exacerbation. 8. GERD-continue famotidine regimen. 9. Obesity-encourage diet and lifestyle modifications. General: Alert, Oriented x3, Cooperative, No apparent distress HEENT: Atraumatic, PERRLA, EOMI, Normocephalic Neck: Supple, No JVD, Negative Carotid Bruits Lungs: Clear to auscultation, Diminished Cardiovascular: Regular rate, Regular Rhythm, Normal S1, Normal S2, No murmurs Abdomen: Bowel Sounds Present, Soft, Non Tender, Non-Distended, Obese Extremities: No clubbing, No cyanosis, No edema, Capillary Refill Less than 3 Seconds Skin: No rashes, No breakdown Musculoskeletal: No Tenderness to Palpation of Joints or Extremities Neurological: Cranial nerves II-XII grossly intact, - - Lower extremity weakness Psych/Mental Status: Flat Affect Patient's exam prior to discharge. Physical assessment as noted above. Patient stable for discharge to SNF for further therapy. This patient was seen by SOFIA Flannery under the supervision of Dr. Aguayo. Home Medications: Medications to take at Discharge Levothyroxine Sodium [Levoxyl] 150 mcg PO DAILY 07/29/13 Lorazepam [Ativan] 1 mg PO BID PRN PRN 07/29/13 Calcium Citrate/Vitamin D3 [Calcium Citrate-Vit D3 Tablet] 1 ea PO BID 04/09/16 Cholecalciferol (VIT D3) [Vitamin D3] 2,000 unit PO QHS 04/09/16 Biotin 1,000 mcg PO DAILY 02/16/18 Cyanocobalamin (Vitamin B-12) [Vitamin B-12] 1,000 mcg PO QHS 02/16/18 Ferrous Gluconate 324 mg PO DAILY 02/16/18 Gabapentin [Neurontin] 600 mg PO BID 02/16/18 Gabapentin [Neurontin] 900 mg PO QHS 02/16/18 Magnesium Oxide 400 mg PO DAILY 02/16/18 Senna [Senokot] 1 tab PO BID 02/16/18 Topiramate [Topamax] 25 mg PO BID 02/16/18 acetaminophen 325 mg tablet 325 mg PO Q6H PRN 02/26/18 baclofen 10 mg tablet 10 mg PO Q6H PRN tab 02/26/18 uwbkdrdatanh-[id number]-bfewtm tablet 1 tab PO QDAY 02/26/18 polyethylene glycol 3350 17 gram/dose oral powder 17 gm PO DAILY 02/26/18 Sennosides [Senna] 8.6 mg PO BID 03/06/18 Ondansetron HCl [Zofran] 4 mg PO Q6H PRN PRN 03/22/18 Oxycodone [Oxyir] 5 mg PO Q6H PRN PRN 2 Days #8 tab 03/27/18 Sertraline HCl [Zoloft] 50 mg PO DAILY tablet 03/27/18 Smz/Tmp Ds [Bactrim Ds] 1 tablet PO BIDCM #0 tablet 03/27/18 Following Prescrptions Were Given to Patient: Oxycodone [Oxyir] 5 mg PO Q6H PRN PRN 2 Days #8 tab PRN Reason: Pain Primary Care Physician: Kevin Bah MD [Primary Care Provider] - Please follow up with your Primary Care Physician in: 1 Week Please Follow Up With: Psychiatry When: 1-2 Weeks Please Follow Up With: Will Comer MD When: 1-2 Weeks Patient Instructions: Extended-Spectrum Beta-lactamase (ESBL) - Producing Bacteria Disposition: Group Home facility Minutes spent on discharge:: 35 Patient Condition:: Stable Medical Necessity - Tobacco Use Smoking Status: Former smoker Tobacco Use: Cigarettes Meaningful Use Info Meaningful Use Diagnoses (Choose all that apply): None applicable <Helena Aguayo E - Last Filed: 03/27/18 11:53> Discharge Date and Diagnosis - Primary Discharge Diagnosis Active and Suspected Problems (Last Updated 02/26/18 @ 16:26 by Kristie Collins) Cystitis (Acute) +ESBL Muscle weakness (Acute) - Secondary Discharge Diagnosis Chronic Problems (Last Updated 02/26/18 @ 16:26 by Kristie Collins) Complex ovarian cyst (Chronic) cea and ca125 ordered Major depressive disorder (Chronic) Anxiety (Chronic) Constipation (Chronic) GERD without esophagitis (Chronic) Chronic cluster headache, not intractable (Chronic) Age-related osteoporosis without current pathological fracture (Chronic) Primary generalized (osteo)arthritis (Chronic) Other intervertebral disc degeneration, lumbar region (Chronic) Hypothyroidism (Chronic) Anemia (Chronic) COPD (chronic obstructive pulmonary disease) (Chronic) Spinal stenosis, lumbar region without neurogenic claudication (Chronic) Neuromuscular scoliosis (Chronic) Chronic low back pain (Chronic) Paraplegia (Chronic) Tobacco use disorder (Chronic) Morbid obesity (Chronic) HTN (hypertension) (Chronic) HLD (hyperlipidemia) (Chronic) Dysthymic disorder (Chronic) Diabetes mellitus type 2, uncontrolled, without complications (Chronic) Chronic Airway Obstruction NEC (Chronic) Hospital Course and Treatment Summary of Care Provided: Hospitalist note: Discharge summary above reviewed and I agree with above discharge and treatment plan. Physical examination above reviewed and I concur with. Patient was admitted for dysuria and frequency and she was found to have ESBL E. coli acute cystitis. She was treated with IV meropenem and she responded to treatment very well. She remained afebrile throughout admission and his symptoms improved. This patient had a history of multiple back surgeries most recently on December, and she has been having bilateral leg pain as well as left lower extremity weakness. Recently, she underwent surgery for complex left ovarian cyst that was around 3 weeks ago. With IV meropenem, symptoms improved. Urine culture revealed ESBL E. coli. Infectious disease consulted and recommended Bactrim p.o. for more 4 days to complete total of 7 days of treatment. Patient has been having issues with back pain, debility and functional decline. Recently, she was discharged from [facility] because of insurance issues although she was improving in terms of mobility and exercises according to the patient. She does have history of hypothyroidism and her TSH was highly elevated which is attributed to noncompliance. Patient was started back on her levothyroxine and recommended repeat TSH in 2-4 weeks. [facility] for physical and occupational therapy for intractable back pain, debility, bilateral leg weakness more on the left side as well as recent abdominal surgery for obliques left ovarian cyst, discharged on Bactrim as above, recommended follow-up with PCP in 1 week, follow-up with psychiatric in 1-2 weeks and follow-up with Dr. Comer in 1-2 weeks as well. Also, recommend follow-up with her neurosurgeon as outpatient. This note was generated with [employer] dictation software. It may contain incorrect words, spelling, and punctuation that were not noted in checking the note before signing. Patient Condition:: Stable Meaningful Use Info Meaningful Use Diagnoses (Choose all that apply): None applicable Code Visit Inpatient E&M: 23032 Disch Hosp
--- NOTE | 2018-03-27 10:43 | DS.PCM_ITS ---
<Aimee Mcbride - Last Filed: 03/27/18 10:47> Discharge Date and Diagnosis - Problem List Patient Problems: Active and Suspected Problems (Last Updated 02/26/18 @ 16:26 by Kristie Collins ) Cystitis (Acute) +ESBL Muscle weakness (Acute) Date of Admission: 03/22/18 Date of Discharge: 03/27/18 - Primary Discharge Diagnosis Active and Suspected Problems (Last Updated 02/26/18 @ 16:26 by Kristie Collins ) 1. Acute E. coli/positive ESBL cystitis 2. Physical debility and weakness secondary to acute on chronic intractable lumbar back pain with severe nephropathy 3. Stage I decubitus coccyx ulcer, present on admission 4. Hypothyroidism with elevated TSH, suspected secondary to noncompliance with medication regimen - Secondary Discharge Diagnosis Chronic Problems (Last Updated 02/26/18 @ 16:26 by Kristie Collins) Complex ovarian cyst (Chronic) cea and ca125 ordered Major depressive disorder (Chronic) Anxiety (Chronic) Constipation (Chronic) GERD without esophagitis (Chronic) Chronic cluster headache, not intractable (Chronic) Age-related osteoporosis without current pathological fracture (Chronic) Primary generalized (osteo)arthritis (Chronic) Other intervertebral disc degeneration, lumbar region (Chronic) Hypothyroidism (Chronic) Anemia (Chronic) COPD (chronic obstructive pulmonary disease) (Chronic) Spinal stenosis, lumbar region without neurogenic claudication (Chronic) Neuromuscular scoliosis (Chronic) Chronic low back pain (Chronic) Paraplegia (Chronic) Tobacco use disorder (Chronic) Morbid obesity (Chronic) HTN (hypertension) (Chronic) HLD (hyperlipidemia) (Chronic) Dysthymic disorder (Chronic) Diabetes mellitus type 2, uncontrolled, without complications (Chronic) Chronic Airway Obstruction NEC (Chronic) Hospital Course and Treatment Dr. Gold- ID Operations: None Procedures: None Summary of Care Provided: The patient is a 57 year old F admitted 03/22/2018 due to back pain, weakness, depression. 1. Acute E. coli/+ESBL UTI-patient received IV meropenem during admission. Discharge on Bactrim for 4 more days at discharge per ID recommendations. 2. Physical debility, weakness secondary to acute on chronic intractable lumbar back pain with severe nephropathy-patient with recent lumbar surgery December 2017. She reports bilateral lower extremity paraplegia although able to move bilateral lower extremities. She notes left lower extremity with greater weakness than right side. Recently discharged from SNF 3 weeks ago. PT/OT. Patient notes she was recently discharged from pain management, Dr. Huerta for unclear reasons. SNF at discharge. 3. Complex ovarian cyst with recent intervention 03/07/2018-Abdominal Steri- Strips without evidence of infection. 4. Stage I decubitus coccyx ulcer, present on admission-frequent position changes. 5. Severe major depression/anxiety, documented suicidal ideations on admission- patient denies further suicidal ideations. Evaluated by crisis and emergency room and it was not felt that patient was an immediate risk. Continue home medication regimen. Encourage outpatient psychiatry follow-up. Patient started on sertraline 50 mg daily during admission. 6. Hypothyroidism-TSH 25. TSH on 03/05/2018 1.3. Suspect this is secondary to noncompliance with medication regimen following discharge from SNF 3 weeks ago. Recommend continuing current regimen and repeat TSH following discharge. 6. Chronic headaches-continue home paramedics regimen. 7. Chronic COPD-no acute exacerbation. 8. GERD-continue famotidine regimen. 9. Obesity-encourage diet and lifestyle modifications. General: Alert, Oriented x3, Cooperative, No apparent distress HEENT: Atraumatic, PERRLA, EOMI, Normocephalic Neck: Supple, No JVD, Negative Carotid Bruits Lungs: Clear to auscultation, Diminished Cardiovascular: Regular rate, Regular Rhythm, Normal S1, Normal S2, No murmurs Abdomen: Bowel Sounds Present, Soft, Non Tender, Non-Distended, Obese Extremities: No clubbing, No cyanosis, No edema, Capillary Refill Less than 3 Seconds Skin: No rashes, No breakdown Musculoskeletal: No Tenderness to Palpation of Joints or Extremities Neurological: Cranial nerves II-XII grossly intact, - - Lower extremity weakness Psych/Mental Status: Flat Affect Patient's exam prior to discharge. Physical assessment as noted above. Patient stable for discharge to SNF for further therapy. This patient was seen by SOFIA Flannery under the supervision of Dr. Aguayo. Home Medications: Medications to take at Discharge Levothyroxine Sodium [Levoxyl] 150 mcg PO DAILY 07/29/13 Lorazepam [Ativan] 1 mg PO BID PRN PRN 07/29/13 Calcium Citrate/Vitamin D3 [Calcium Citrate-Vit D3 Tablet] 1 ea PO BID 04/09/16 Cholecalciferol (VIT D3) [Vitamin D3] 2,000 unit PO QHS 04/09/16 Biotin 1,000 mcg PO DAILY 02/16/18 Cyanocobalamin (Vitamin B-12) [Vitamin B-12] 1,000 mcg PO QHS 02/16/18 Ferrous Gluconate 324 mg PO DAILY 02/16/18 Gabapentin [Neurontin] 600 mg PO BID 02/16/18 Gabapentin [Neurontin] 900 mg PO QHS 02/16/18 Magnesium Oxide 400 mg PO DAILY 02/16/18 Senna [Senokot] 1 tab PO BID 02/16/18 Topiramate [Topamax] 25 mg PO BID 02/16/18 acetaminophen 325 mg tablet 325 mg PO Q6H PRN 02/26/18 baclofen 10 mg tablet 10 mg PO Q6H PRN tab 02/26/18 hvhrujzttefa-bgjrkxxj-sfjrgq tablet 1 tab PO QDAY 02/26/18 polyethylene glycol 3350 17 gram/dose oral powder 17 gm PO DAILY 02/26/18 Sennosides [Senna] 8.6 mg PO BID 03/06/18 Ondansetron HCl [Zofran] 4 mg PO Q6H PRN PRN 03/22/18 Oxycodone [Oxyir] 5 mg PO Q6H PRN PRN 2 Days #8 tab 03/27/18 Sertraline HCl [Zoloft] 50 mg PO DAILY tablet 03/27/18 Smz/Tmp Ds [Bactrim Ds] 1 tablet PO BIDCM #0 tablet 03/27/18 Following Prescrptions Were Given to Patient: Oxycodone [Oxyir] 5 mg PO Q6H PRN PRN 2 Days #8 tab PRN Reason: Pain Primary Care Physician: Kevin Bah MD [Primary Care Provider] - Please follow up with your Primary Care Physician in: 1 Week Please Follow Up With: Psychiatry When: 1-2 Weeks Please Follow Up With: Will Comer MD When: 1-2 Weeks Patient Instructions: Extended-Spectrum Beta-lactamase (ESBL) - Producing Bacteria [facility]position[facility] Minutes spent on discharge:: 35 Patient Condition:: Stable Medical Necessity - Tobacco Use Smoking Status: Former smoker Tobacco Use: Cigarettes Meaningful Use Info Meaningful Use Diagnoses (Choose all that apply): None applicable <Helena Aguayo E - Last Filed: 03/27/18 11:53> Discharge Date and Diagnosis - Primary Discharge Diagnosis Active and Suspected Problems (Last Updated 02/26/18 @ 16:26 by Kristie Collins ) Cystitis (Acute) +ESBL Muscle weakness (Acute) - Secondary Discharge Diagnosis Chronic Problems (Last Updated 02/26/18 @ 16:26 by Kristie Collins) Complex ovarian cyst (Chronic) cea and ca125 ordered Major depressive disorder (Chronic) Anxiety (Chronic) Constipation (Chronic) GERD without esophagitis (Chronic) Chronic cluster headache, not intractable (Chronic) Age-related osteoporosis without current pathological fracture (Chronic) Primary generalized (osteo)arthritis (Chronic) Other intervertebral disc degeneration, lumbar region (Chronic) Hypothyroidism (Chronic) Anemia (Chronic) COPD (chronic obstructive pulmonary disease) (Chronic) Spinal stenosis, lumbar region without neurogenic claudication (Chronic) Neuromuscular scoliosis (Chronic) Chronic low back pain (Chronic) Paraplegia (Chronic) Tobacco use disorder (Chronic) Morbid obesity (Chronic) HTN (hypertension) (Chronic) HLD (hyperlipidemia) (Chronic) Dysthymic disorder (Chronic) Diabetes mellitus type 2, uncontrolled, without complications (Chronic) Chronic Airway Obstruction NEC (Chronic) Hospital Course and Treatment Summary of Care Provided: Hospitalist note: Discharge summary above reviewed and I agree with above discharge and treatment plan. Physical examination above reviewed and I concur with. Patient was admitted for dysuria and frequency and she was found to have ESBL E. coli acute cystitis. She was treated with IV meropenem and she responded to treatment very well. She remained afebrile throughout admission and his symptoms improved. This patient had a history of multiple back surgeries most recently on December, and she has been having bilateral leg pain as well as left lower extremity weakness. Recently, she underwent surgery for complex left ovarian cyst that was around 3 weeks ago. With IV meropenem, symptoms improved. Urine culture revealed ESBL E. coli. Infectious disease consulted and recommended Bactrim p.o. for more 4 days to complete total of 7 days of treatment. Patient has been having issues with back pain, debility and functional decline. [facility], [facility] although she was improving in terms of mobility and exercises according to the patient. She does have history of hypothyroidism and her TSH was highly elevated which is attributed to noncompliance. Patient was started back on her levothyroxine and recommended repeat TSH in 2-4 weeks. Patient discharged to residential facility in a stable medical condition for physical and occupational therapy for intractable back pain, debility, bilateral leg weakness more on the left side as well as recent abdominal surgery for obliques left ovarian cyst, discharged on Bactrim as above, recommended follow-up with PCP in 1 week, follow-up with psychiatric in 1-2 weeks and follow-up with Dr. Comer in 1-2 weeks as well. Also, recommend follow-up with her neurosurgeon as outpatient. This note was generated with [employer] dictation software. It may contain incorrect words, spelling, and punctuation that were not noted in checking the note before signing. Patient Condition:: Stable Meaningful Use Info Meaningful Use Diagnoses (Choose all that apply): None applicable Code Visit Inpatient E&M: 25127 Disch Hosp
--- NOTE | 2018-03-27 10:59 | CON.PCM_ITS ---
Problem List (1) Cystitis Status: Acute Comment: +ESBL Reason for Consult: uti Consulted by: Dr. Navarro History of Present Illness: The patient is a 57 year old F with spinal stenosis complicated by near paraplegia, now s/p surgical repair. Treated for uti in past month or so. She was sent home from [facility], and reports she had been trying to hold her urine as long as possible to avoid giving her daughter too much work. Started to have increased frequency, not feeling well, mild dysuria. No fever, no abd pain. Sent to hospital, given ceftriaxone, now ucx with esbl ecoli, changed to meropenem. Feeling better. Full ROS performed and neg except as noted above. - Medical History Past Medical History (Chronic Problems): Chronic Problems (Last Updated 02/26/18 @ 16:26 by Kristie Collins) Complex ovarian cyst (Chronic) cea and ca125 ordered Major depressive disorder (Chronic) Anxiety (Chronic) Constipation (Chronic) GERD without esophagitis (Chronic) Chronic cluster headache, not intractable (Chronic) Age-related osteoporosis without current pathological fracture (Chronic) Primary generalized (osteo)arthritis (Chronic) Other intervertebral disc degeneration, lumbar region (Chronic) Hypothyroidism (Chronic) Anemia (Chronic) COPD (chronic obstructive pulmonary disease) (Chronic) Spinal stenosis, lumbar region without neurogenic claudication (Chronic) Neuromuscular scoliosis (Chronic) Chronic low back pain (Chronic) Paraplegia (Chronic) Tobacco use disorder (Chronic) Morbid obesity (Chronic) HTN (hypertension) (Chronic) HLD (hyperlipidemia) (Chronic) Dysthymic disorder (Chronic) Diabetes mellitus type 2, uncontrolled, without complications (Chronic) Chronic Airway Obstruction NEC (Chronic) Allergies/Adverse Reactions: Allergies NSAIDS (Non-Steroidal Anti-Inflamma Allergy (Verified 03/06/18 23:48) GASTRIC BYPASS trazodone Adverse Reaction (Verified 03/22/18 23:38) Other migraine Home Medications: Ambulatory Orders Medication Instructions Recorded Levothyroxine Sodium [Levoxyl] 150 mcg PO DAILY 07/29/13 Lorazepam [Ativan] 1 mg PO BID PRN PRN 07/29/13 Calcium Citrate/Vitamin D3 1 ea PO BID 04/09/16 [Calcium Citrate-Vit D3 Tablet] Cholecalciferol (VIT D3) [Vitamin 2,000 unit PO QHS 04/09/16 D3] Biotin 1,000 mcg PO DAILY 02/16/18 Cyanocobalamin (Vitamin B-12) 1,000 mcg PO QHS 02/16/18 [Vitamin B-12] Ferrous Gluconate 324 mg PO DAILY 02/16/18 Gabapentin [Neurontin] 600 mg PO BID 02/16/18 Gabapentin [Neurontin] 900 mg PO QHS 02/16/18 Magnesium Oxide 400 mg PO DAILY 02/16/18 Senna [Senokot] 1 tab PO BID 02/16/18 Topiramate [Topamax] 25 mg PO BID 02/16/18 acetaminophen 325 mg tablet 325 mg PO Q6H PRN 02/26/18 baclofen 10 mg tablet 10 mg PO Q6H PRN tab 02/26/18 lpwgsylhptzn-ybekeovr-pmwyen tablet 1 tab PO QDAY 02/26/18 polyethylene glycol 3350 17 17 gm PO DAILY 02/26/18 gram/dose oral powder Sennosides [Senna] 8.6 mg PO BID 03/06/18 Ondansetron HCl [Zofran] 4 mg PO Q6H PRN PRN 03/22/18 Oxycodone [Oxyir] 5 mg PO Q6H PRN PRN 2 Days #8 tab 03/27/18 Sertraline HCl [Zoloft] 50 mg PO DAILY tablet 03/27/18 Smz/Tmp Ds [Bactrim Ds] 1 tablet PO BIDCM #0 tablet 03/27/18 - Social History SMOKING STATUS:: Former smoker Vital Signs Temp Pulse Resp BP Pulse Ox 97.0 F L 80 18 145/81 H 98 03/27/18 09:30 03/27/18 09:30 03/27/18 09:30 03/27/18 09:30 03/27/18 09:30 Oxygen Delivery Method Room Air Weight: 89.9 kg Body Mass Index (BMI) 31.9 reviewed, ucx esbl ecoli - Other Studies Radiology: [] reviewed Other Studies: [] Route of nutrition/ use of supplements: [] Nutritional Intake: [] IV Site: [] Farrell Catheter: [] - Physical Exam General: Alert, Oriented x3, Cooperative, No apparent distress HEENT: Atraumatic, PERRLA, EOMI Neck: Supple, No Nodes Lungs: Clear to auscultation, Normal air movement Cardiovascular: Regular rate, Regular Rhythm Abdomen: Bowel Sounds Present, Soft, Non Tender, Non-Distended Extremities: No edema Skin: No rashes IV Site: Peripheral, without redness Musculoskeletal: No Tenderness to Palpation of Joints or Extremities Neurological: Cranial nerves II-XII grossly intact, - - diminished BLE movement - Assessment/Plan Antibiotics: [] Assessment/Plan: [] Active and Suspected Problems (Last Updated 02/26/18 @ 16:26 by Kristie Collins ) Cystitis (Acute) +ESBL Muscle weakness (Acute) esbl ecoli complicated uti - likely due to her trying to hold urine as long as possible to avoid bothering her daughter. Plan is for d/c to ECF which should help. Would send her out on po bactrim ds bid for 4 days. She has taken bactrim before without issue. Will follow, thank you, d/w primary team.
--- NOTE | 2018-03-27 11:40 | CASEMGMT ---
Social Work Note SW received call from FAROOQ Wiggins web content & social media manager stating that she received a call from Berenice BROOKS at [facility] stating that [facility] is not in network with pt's insurance. List of in network facilities provided. In network facilities include [facility], [facility], [facility], [facility], [facility], and [facility]. SW in to update pt of this. Pt called her daughter Adriane while this worker was present in room to discuss SNF options. Pt states that she has been to [facility] before and would like to return there. SW states that this worker will have to check with [facility] to determine if they are in network with pt's insurance. Pt states understanding. Pt states that her second choice would be [facility] and third choice would be [facility]. SW explained referral process and pre-cert will need to be obtained. Pt states understanding. SW placed a call to [facility] and spoke with Jes. Jes states that they are not in network with pt's insurance. SW received call from [facility] stating that they ran out of network benefits and pt would have a copay of $167.00 a day. SW explained that this worker was informed that [facility] was in network and that pt has used days 1-20 of Medicare and would begin day 21-100 with the copay $167.00 a day and this number was when [facility] was thought to be in network. SHARITA placed a call to Berenice BROOKS at [facility] ( ext. [phone]) to ask Berenice about cost for pt. Berenice states that if pt went to in network facility pt would be responsible for anywhere from $137-167 a day and if pt goes to out of network facility pt would be responsible for 25% cost of entire stay at SNF. Berenice states that it would be cheaper for pt to go to in network facility. SHARITA placed a call to Aimee Mercedes, quality management and Aimee will fax referrals to [facility] and [facility]. SHARITA updated RN Poncho of this. SHARITA placed a call to Jyoti Mckinney at [facility] and updated her that pt has decided to go to in network facility. SHARITA placed a call to Berenice BROOKS at [facility]. SHARITA placed a call to Berenice RN at [facility] and left her a message informing her that pt has decided to go to in network facility and informed her that referrals will be sent to [facility]. SHARITA also asked Berenice if pre-cert could be expedited once accepting facility is determined. SW waiting for call back from TODD Ng at [facility]. Plan: SNF pending acceptance and pre-cert Mitra Gallegos WALLET ASSEMBLER, GREENS CUTTER
[2018-03-27] MEDS: Smz/Tmp Ds Tablet 1 TABLET PO ×2 (11:55→17:47)
--- NOTE | 2018-03-27 12:17 | CASEMGMT ---
Rec'd call from SW. Mitra Referral packet to be sent to [facility] (second choice is [facility]). Called and spoke with Haleigh at [facility], she believes they will have a bed available in the next few days. Faxed facesheet, insurance card, H&P, med list, PT/OT notes, 03/26 progress note, and 03/27 ID consult to [phone]. Haleigh will call back once referral is reviewed. Aimee Mercedes LPN Clinical Support
[2018-03-27] MEDS: 0.9% NaCl Peripheral Flush Adult/Peds IV (13:37)
--- NOTE | 2018-03-27 13:55 | CASEMGMT ---
Referral faxed to [facility] as they are patients 2nd choice. SHARITA Manriquez aware. Call placed to Haleigh at [facility], Haleigh unavailable, message left that this CARDIAC EXERCISE SPECIALIST would be leaving at 1430 and SHARITA Manriquez's direct line given to call re: referral. Aimee Mercedes LPN Clinical Support
--- NOTE | 2018-03-27 14:23 | PCM.PROGNOTE ---
<Aimee Mcbride - Last Filed: 03/27/18 14:31> Patient Problems: Active and Suspected Problems (Last Updated 02/26/18 @ 16:26 by Kristie Collins) Cystitis (Acute) +ESBL Muscle weakness (Acute) Subjective: Patient seen and examined. No acute events overnight. Waiting accepting facility and insurance pre-CERT to SNF. - Physical Exam General: Alert, Oriented x3, Cooperative, No apparent distress HEENT: Atraumatic, PERRLA, EOMI, Normocephalic Neck: Supple, No JVD, Negative Carotid Bruits Lungs: Clear to auscultation, Diminished Cardiovascular: Regular rate, Regular Rhythm, Normal S1, Normal S2, No murmurs Abdomen: Bowel Sounds Present, Soft, Non Tender, Non-Distended, Obese Extremities: No clubbing, No cyanosis, No edema, Capillary Refill Less than 3 Seconds Skin: No rashes, No breakdown Musculoskeletal: No Tenderness to Palpation of Joints or Extremities Neurological: Cranial nerves II-XII grossly intact, - - Lower extremity weakness Psych/Mental Status: Flat Affect Vital Signs Temp Pulse Resp BP Pulse Ox 97.0 F L 80 18 145/81 H 98 03/27/18 09:30 03/27/18 09:30 03/27/18 09:30 03/27/18 09:30 03/27/18 09:30 Oxygen Delivery Method Room Air Weight: 198 lb 3.129 oz Body Mass Index (BMI) 31.9 Intake and Output for Last 24 Hours 03/25/18 03/26/18 03/27/18 23:59 23:59 23:59 Intake Total 1803 / 1803 2784.8 / 2784.8 1299 / 1299 Output Total 2300 / 2300 2250 / 2250 950 / 950 Balance -497 / -497 534.8 / 534.8 349 / 349 Medical Necessity - Tobacco Use Smoking Status: Former smoker Tobacco Use: Cigarettes Assessment/Plan All Active Problems (Last Updated 02/26/18 @ 16:26 by Kristie Collins) Cystitis (Acute) Muscle weakness (Acute) The patient is a 57 year old F admitted 03/22/2018 due to back pain, weakness, depression. 1. Acute E. coli/+ESBL UTI-patient received IV meropenem during admission. Discharge on Bactrim for 4 more days at discharge per ID recommendations. 2. Physical debility, weakness secondary to acute on chronic intractable lumbar back pain with severe nephropathy-patient with recent lumbar surgery December 2017. She reports bilateral lower extremity paraplegia although able to move bilateral lower extremities. She notes left lower extremity with greater weakness than right side. Recently discharged from SNF 3 weeks ago. PT/OT. Patient notes she was recently discharged from pain management, Dr. Huerta for unclear reasons. SNF at discharge. 3. Complex ovarian cyst with recent intervention 03/07/2018-Abdominal Steri-Strips without evidence of infection. 4. Stage I decubitus coccyx ulcer, present on admission-frequent position changes. 5. Severe major depression/anxiety, documented suicidal ideations on admission-patient denies further suicidal ideations. Evaluated by crisis and emergency room and it was not felt that patient was an immediate risk. Continue home medication regimen. Encourage outpatient psychiatry follow-up. Patient started on sertraline 50 mg daily during admission. 6. Hypothyroidism-TSH 25. TSH on 03/05/2018 1.3. Suspect this is secondary to noncompliance with medication regimen following discharge from SNF 3 weeks ago. Recommend continuing current regimen and repeat TSH following discharge. 6. Chronic headaches-continue home paramedics regimen. 7. Chronic COPD-no acute exacerbation. 8. GERD-continue famotidine regimen. 9. Obesity-encourage diet and lifestyle modifications. DVT prophylaxis-SCDs, Lovenox. Discharge planning: Pending facility acceptance and insurance approval to SNF. This patient was seen by SOFIA Flannery under the supervision of Dr. Aguayo. <Helena Aguayo E - Last Filed: 03/27/18 15:13> - Physical Exam Vital Signs Temp Pulse Resp BP Pulse Ox 97.0 F L 80 18 145/81 H 98 03/27/18 09:30 03/27/18 09:30 03/27/18 09:30 03/27/18 09:30 03/27/18 09:30 Oxygen Delivery Method Room Air Weight: 198 lb 3.129 oz Body Mass Index (BMI) 31.9 Intake and Output for Last 24 Hours 03/25/18 03/26/18 03/27/18 23:59 23:59 23:59 Intake Total 1803 / 1803 2784.8 / 2784.8 1299 / 1299 Output Total 2300 / 2300 2250 / 2250 950 / 950 Balance -497 / -497 534.8 / 534.8 349 / 349 Assessment/Plan Hospitalist note: I am seeing this patient in conjunction with Aimee Mcbride. I independently seen and examined the patient. Progress note above and laboratory data and I concur with the above treatment plan. Today, she denied any significant complaints. Back pain still there is getting better. Her vital signs are stable. - Physical Exam General: Alert, Oriented x3, Cooperative, No apparent distress. HEENT: Atraumatic, PERRLA, EOMI. Neck: Supple, No JVD, Negative Carotid Bruits, Trachea Midline, Thyroid Normal. Lungs: Clear to auscultation, Normal air movement, No rhonchi, No wheeze, No rales. Cardiovascular: Regular rate, Regular Rhythm, Normal S1, Normal S2, PMI Normal. Abdomen: Bowel Sounds Present, Soft, minimal tenderness, Non-Distended, No Hepato-splenomegaly. Extremities: No clubbing, No cyanosis, No edema Skin: No rashes, No breakdown Neurological: Neuro grossly intact Vital Signs are stable. Assessment and plan: #1 ESBL E. coli acute cystitis: On IV meropenem. Her vital signs are stable, afebrile. Urine culture revealed ESBL E. coli. Her routine blood work was unremarkable. Infectious disease consulted, recommended to start Bactrim which was started. Initially, this instruction was done to be discharged to alf facility but transfer was declined by the nursing facility. We are awaiting insurance approval for different alf facility. #2 complex left ovarian cyst: Status post surgery that was done 2 weeks ago. She looks stable from this point. #3 stage I decubitus ulcer: Appropriate dressing, frequent position changes. #3 hypothyroidism: TSH was high elevated. It was normal 2 weeks ago. Likely due to noncompliance. continue levothyroxine for now, patient will need repeat TSH in 2 weeks. #4 chronic back pain/status post multiple back surgeries/debility/bilateral lower extremity weakness more on the right side: Patient had 2 major back surgeries on March, and December,. Our plan is to control her pain, placement to alf facility, I recommend follow-up with her neurosurgeon as outpatient. #5 severe depression/anxiety: At this time, patient denied any suicidal ideations or intentions. She was evaluated by mental health crisis yesterday at the ER and stated that she is not suicidal. She is on Zoloft. #6 other chronic medical problems: Stable, continue current medications as above. This note was generated with [employer] software. It may contain incorrect words, spelling, and punctuation that were not noted in checking the note before signing. Code Visit Inpatient E&M: 67918 Subs Hosp L2
[2018-03-27 16:47] VITALS: BP 125/69; PULSE 68; RESP 16; TEMP 36.5; O2SAT 98
[2018-03-27] MEDS: Gabapentin 300 MG Capsule 900 MG PO (21:17)
[2018-03-27] MEDS: LORazepam 1 MG Tablet PO (21:17)
[2018-03-27] MEDS: Cyanocobalamin 500 MCG Tablet 1000 MCG PO (21:18)
[2018-03-27 21:21] VITALS: BP 112/58; PULSE 86; RESP 18; TEMP 36.6; O2SAT 97
--- NOTE | 2018-03-28 03:53 | NURSING ---
Pt called out for pain meds, notified her primary nurse, TODD Washburn.
[2018-03-28] MEDS: Baclofen 10 MG Tablet PO (03:57)
[2018-03-28] MEDS: oxyCODONE 5 MG Tablet PO ×3 (03:57→17:22)
[2018-03-28 04:01] VITALS: BP 119/70; PULSE 71; RESP 16; TEMP 36.7; O2SAT 98
[2018-03-28] MEDS: morphine SR 15 MG Tablet PO ×3 (06:06→21:03)
[2018-03-28] MEDS: Levothyroxine 150 MCG Tablet PO (06:06)
--- NOTE | 2018-03-28 08:57 | CASEMGMT ---
Social Work Note SHARITA placed a call to [facility] and spoke with Tessa. Tessa states that she will have to speak with Haleigh who received referral yesterday and review referral. SHARITA provided direct number. Tessa states that she will call this worker back with an answer. SHARITA placed a call to Lexie at [facility] and Lexie states that she doesn't have any female beds available. Plan: [facility] pending acceptance and pre-cert Mitra Gallegos WEATHER ANALYST, MOLD TOOLER
[2018-03-28 09:37] VITALS: BP 103/58; PULSE 72; RESP 16; TEMP 36.6; O2SAT 98
[2018-03-28] MEDS: Topiramate 25 MG Tablet PO ×2 (09:41→21:02)
[2018-03-28] MEDS: Sertraline 50 MG Tablet PO (09:41)
[2018-03-28] MEDS: Ferrous Gluconate 325 MG Tablet PO (09:41)
[2018-03-28] MEDS: Multivitamins,Ther W-Minerals Tablet 1 TABLET PO (09:41)
[2018-03-28] MEDS: Calcium Carb/Vitamin D 1 TABLET Tablet PO ×2 (09:41→17:19)
[2018-03-28] MEDS: Magnesium Oxide 400 MG Tablet PO (09:41)
[2018-03-28] MEDS: Famotidine 20 MG Tablet PO ×2 (09:42→21:02)
[2018-03-28] MEDS: Smz/Tmp Ds Tablet 1 TABLET PO ×2 (09:42→17:19)
[2018-03-28] MEDS: Enoxaparin 40 MG/0.4 ML Syringe SC (09:42)
[2018-03-28] MEDS: Senna Tablet 1 TABLET PO ×2 (09:42→21:02)
[2018-03-28] MEDS: Gabapentin 300 MG Capsule 600 MG PO ×2 (09:42→17:19)
--- NOTE | 2018-03-28 10:06 | CASEMGMT ---
Social Work Note SW received call from Haleigh at [facility] stating that she has concerns about pt's mental health and wants to make sure pt knows that their aren't any psychologist at facility and a psychiatrist only comes in once a month. Haleigh states that they have a SW at facility that can talk to pt if needed. SHARITA relayed this message to pt. Pt states understanding and states that this is fine. SW placed a call back to Haleigh to update her on this. Haleigh states that she will submit for pre-cert. Plan: [facility] pending pre-cert Mitra Gallegos CAR MECHANIC HELPER, EYEWEAR MANUFACTURING SUPERVISOR
--- NOTE | 2018-03-28 10:07 | PCM.PN.HOSP ---
Patient Problems: Active and Suspected Problems (Last Updated 02/26/18 @ 16:26 by Kristie Collins) Cystitis (Acute) +ESBL Muscle weakness (Acute) Subjective: Patient was seen and examined. No acute events overnight. Waiting on insurance precertification for discharge Objective: Physical Exam General: Alert, Oriented x3, Cooperative, No apparent distress HEENT: Atraumatic, PERRLA, EOMI, Normocephalic Neck: Supple, No JVD, Negative Carotid Bruits Lungs: Clear to auscultation, Diminished Cardiovascular: Regular rate, Regular Rhythm, Normal S1, Normal S2, No murmurs Abdomen: Bowel Sounds Present, Soft, Non Tender, Non-Distended, Obese Extremities: No clubbing, No cyanosis, No edema, Capillary Refill Less than 3 Seconds Skin: No rashes, No breakdown Musculoskeletal: No Tenderness to Palpation of Joints or Extremities Neurological: Cranial nerves II-XII grossly intact, - - Lower extremity weakness Psych/Mental Status: Flat Affect Vitals/I&O's: Vital Signs Temp Pulse Resp BP Pulse Ox 97.8 F 72 16 103/58 L 98 03/28/18 09:37 03/28/18 09:37 03/28/18 09:37 03/28/18 09:37 03/28/18 09:37 Oxygen Delivery Method Room Air Weight: 89.9 kg Body Mass Index (BMI) 31.9 Intake and Output for Last 24 Hours 03/26/18 03/27/18 03/28/18 23:59 23:59 23:59 Intake Total 2784.8 / 2784.8 1299 / 1299 700 / 700 Output Total 2250 / 2250 950 / 950 800 / 800 Balance 534.8 / 534.8 349 / 349 -100 / -100 Current Medications Acetaminophen (Tylenol) 650 mg PO Q6H PRN PRN PRN Reason: Mild Pain (scale 0-3)/T>100.7 Last Admin: 03/27/18 03:59 Dose: 650 mg Al Hydroxide/Mg Hydroxide (Mylanta Ii) 30 ml PO Q6H PRN PRN PRN Reason: Gastric burning Albuterol Sulfate (Ventolin Aerosols) 2.5 mg INHALATION Q2H PRN PRN PRN Reason: dyspnea, wheezing Albuterol/Ipratropium (Duoneb) 3 ml INHALATION Q6H PRN PRN PRN Reason: wheezing Baclofen (Lioresal) 10 mg PO Q6H PRN PRN PRN Reason: PAIN Last Admin: 03/28/18 03:57 Dose: 10 mg Bisacodyl (Dulcolax) 5 mg PO DAILY PRN PRN PRN Reason: Constipation Last Admin: 03/27/18 09:44 Dose: 5 mg Calamine/Phenol (Calmoseptine Ointment) 1 applic TOPICAL TID PRN; Protocol PRN Reason: redness to groin Last Admin: 03/27/18 09:42 Dose: 1 applicatio Calcium/Vitamin D (Os-Marty 500mg + D) [facility] Last Admin: 03/28/18 09:41 Dose: 1 tablet Cholecalciferol ([facility]itamin D) [facility] Last Admin: 03/27/18 21:17 Dose: 2,000 unit Cyanocobalamin (Vitamin B12) [facility] Last Admin: 03/27/18 21:18 Dose: 1,000 mcg Cyclobenzaprine HCl (Flexeril) 5 mg PO TID PRN PRN PRN Reason: MUSCLE SPASMS, STRAIN Last Admin: 03/26/18 18:42 Dose: 5 mg Enoxaparin Sodium (Lovenox) 40 mg SC DAILY@1000 [facility] Last Admin: 03/28/18 09:42 Dose: 40 mg Famotidine (Pepcid) 20 mg PO BID [facility] Last Admin: 03/28/18 09:42 Dose: 20 mg Ferrous Gluconate (Ferrous Gluconate) [facility] Last Admin: 03/28/18 09:41 Dose: 325 mg Gabapentin (Neurontin) 900 mg PO QHS [facility] Last Admin: 03/27/18 21:17 Dose: 900 mg Gabapentin (Neurontin) [facility] Last Admin: 03/28/18 09:42 Dose: 600 mg Hydromorphone HCl (Dilaudid Inj) 1 mg IV Q3H PRN PRN PRN Reason: SEVERE PAIN (6-10/10) Levothyroxine Sodium (Synthroid) 150 mcg PO DAILY@0600 [facility] Last Admin: 03/28/18 06:06 Dose: 150 mcg Lorazepam (Ativan) 1 mg PO BID PRN PRN PRN Reason: ANXIETY Last Admin: 03/27/18 21:17 Dose: 1 mg Magnesium Hydroxide (Milk Of Magnesia) 30 ml PO DAILY PRN PRN PRN Reason: Constipation Magnesium Oxide (Mag-Ox 400) 400 mg PO DAILY [facility] Last Admin: 03/28/18 09:41 Dose: 400 mg Morphine Sulfate (Ms Contin) 15 mg PO Q8 [facility] Last Admin: 03/28/18 06:06 Dose: 15 mg Multivitamins/Minerals (Multivitamin With Minerals) 1 tablet PO DAILY@0800 [facility] Last Admin: 03/28/18 09:41 Dose: 1 tablet Nutritional Formula (Lactose Free) (Ensure Enlive) 120 ml PO 4X/DAY [facility] Last Admin: 03/28/18 09:41 Dose: Not Given Ondansetron HCl (Zofran) 4 mg IV Q8H PRN PRN PRN Reason: NAUSEA Oxycodone HCl (Oxyir) 5 - 10 mg PO Q4H PRN PRN PRN Reason: PAIN Last Admin: 03/28/18 09:50 Dose: 10 mg Polyethylene Glycol (Miralax) 17 gm PO DAILY [facility] Last Admin: 03/28/18 09:40 Dose: Not Given Promethazine HCl (Phenergan) 12.5 mg IV Q6H PRN PRN PRN Reason: NAUSEA/VOMITING Senna (Senokot) 1 tablet PO BID [facility] Last Admin: 03/28/18 09:42 Dose: 1 tablet Sertraline HCl (Zoloft) 50 mg PO DAILY [facility] Last Admin: 03/28/18 09:41 Dose: 50 mg Sodium Chloride () 5 - 30 ml IV UD PRN PRN Reason: SALINE FLUSH Last Admin: 03/27/18 13:37 Dose: 10 ml Topiramate (Topamax) 25 mg PO BID [facility] Last Admin: 03/28/18 09:41 Dose: 25 mg Trimethoprim/Sulfamethoxazole (Bactrim Ds) [facility] Last Admin: 03/28/18 09:42 Dose: 1 tablet Medical Necessity - Tobacco Use Smoking Status: Former smoker Tobacco Use: Cigarettes Assessment/Plan All Active Problems (Last Updated 02/26/18 @ 16:26 by Kristie Collins) Cystitis (Acute) Muscle weakness (Acute) 57-year-old female with past medical history of spinal stenosis with near paraplegia admitted on 03/22/2018 with generalized weakness, back pain has been managed as acute UTI. 1. Acute ESBL E. coli, on Bactrim, ID was consulted in this admission, recommended 4 more days of Bactrim starting on 03/27/2018 2. Complex left ovarian cyst, s/p laparoscopic salpingo-oophorectomy with cystoscopy, pathology findings are benign 3. stage I decubitus ulcer, wound consulted, continue appropriate dressing, frequent position changes. 4. Hypothyroidism, on levothyroxine, levels need to be rechecked in the outpatient in 2 weeks 5. Debility secondary to acute on chronic back pain, status post multiple back surgeries, follow-up with neurosurgery in the outpatient 6. Depression/anxiety, severe, no suicidal ideations or intentions. Remains on Zoloft. 7. DVT prophylaxis with Lovenox subcu 8. Disposition: Pending DC to senior living facility Code Visit Inpatient E&M: 41335 Subs Hosp L2
--- NOTE | 2018-03-28 10:39 | PCM.PN.ID ---
Patient Problems: Active and Suspected Problems (Last Updated 02/26/18 @ 16:26 by Kristie Collins) Cystitis (Acute) +ESBL Muscle weakness (Acute) Subjective: Feeling well, no fever, no rash, no n/v/d. - Physical Exam General: Alert, Cooperative, No apparent distress Lungs: Clear to auscultation, Normal air movement Cardiovascular: Regular rate, Regular Rhythm Abdomen: Soft, Non Tender, Non-Distended Skin: No rashes Vital Signs Temp Pulse Resp BP Pulse Ox 97.8 F 72 16 103/58 L 98 03/28/18 09:37 03/28/18 09:37 03/28/18 09:37 03/28/18 09:37 03/28/18 09:37 Oxygen Delivery Method Room Air Weight: 89.9 kg Body Mass Index (BMI) 31.9 Intake and Output for Last 24 Hours 03/26/18 03/27/18 03/28/18 23:59 23:59 23:59 Intake Total 2784.8 / 2784.8 1299 / 1299 700 / 700 Output Total 2250 / 2250 950 / 950 800 / 800 Balance 534.8 / 534.8 349 / 349 -100 / -100 Medical Necessity - Tobacco Use Smoking Status: Former smoker Tobacco Use: Cigarettes Route of nutrition/ use of supplements: [] Nutritional Intake: [] IV Site: [] Farrell Catheter: [] - Assessment/Plan Antibiotics: [] Assessment/Plan: [] Active and Suspected Problems (Last Updated 02/26/18 @ 16:26 by Kristie Collins) Cystitis (Acute) +ESBL Muscle weakness (Acute) esbl ecoli complicated uti - likely due to her trying to hold urine as long as possible to avoid bothering her daughter. Plan is for d/c to [facility] which should help. Would send her out on po bactrim ds bid for 3 days. She has taken bactrim before without issue. Will follow
[2018-03-28 14:38] VITALS: BP 119/66; PULSE 68; RESP 18; TEMP 36.9; O2SAT 98
[2018-03-28 20:38] VITALS: BP 141/74; PULSE 73; RESP 18; TEMP 36.6; O2SAT 98
[2018-03-28] MEDS: Gabapentin 300 MG Capsule 900 MG PO (21:02)
[2018-03-28] MEDS: Cyanocobalamin 500 MCG Tablet 1000 MCG PO (21:02)
[2018-03-28] MEDS: LORazepam 1 MG Tablet PO (22:03)
[2018-03-28] MEDS: Menthol/Lanolin/Calamine/Znox 113 GM Tube 1 APPLIC TOPICAL (22:06)
[2018-03-29] MEDS: oxyCODONE 5 MG Tablet PO ×3 (01:42→17:29)
[2018-03-29 02:38] VITALS: BP 121/68; PULSE 73; RESP 18; TEMP 36.7; O2SAT 98
[2018-03-29] MEDS: Levothyroxine 150 MCG Tablet PO (05:28)
[2018-03-29] MEDS: morphine SR 15 MG Tablet PO ×3 (05:28→21:45)
[2018-03-29 06:18] LABS: Absolute Lymphocyte Count 2.15 X10^3/ul (0.83-4.51); Basophil# 0.03 X10^3/uL; Basophil% 0.6 % (0-1); Eosinophil# 0.24 X10^3/uL; Hematocrit 36.9 % (37-47); Hemoglobin 11.5 g/dl (12.0-15.0); Lymphocyte # 2.15 X10^3/ul (4.0); Lymphocyte % 44.5 % (19-41); Mean Corp Hgb Conc 31.2 g/gl (32-36); Mean Corpuscular Hgb 27.2 pg (27.0-32.0); Mean Corpuscular Volume 87.2 fL (81-99); Monocyte% 8.3 % (0-10); Neutrophil % 41.4 % (47-70); Platelet Count 198 K/mm3 (150-450); RBC Distribution Width CV 14.4 % (11.6-14.6); RBC Distribution Width SD 45.4 fl (35.1-43.9); Red Blood Count 4.23 M/mm3 (4.2-5.4); White Blood Count 4.8 K/mm3 (4.4-11.0)
[2018-03-29 06:28] LABS: POSITIVE COUNT NO; POSITIVE DIFFERENTIAL NO; POSITIVE MORPHOLOGY NO
[2018-03-29 06:34] LABS: Anion Gap 7 (5-15); BUN 16 mg/dL (7-18); BUN/Creat Ratio 22.5 RATIO (10-20); Calcium,Total 9.9 mg/dL (8.5-10.1); Chloride 108 mmol/L (98-107); Creatinine, Serum 0.71 mg/dL (0.55-1.02); EST Glomerular Filtration Rate 90 mL/min (>60); Est Glom Filt Rate - Afr Amer 109 mL/min (>60); Estimated Creatinine Clearance 82.83 ml/min; Glucose 90 mg/dL (74-106); Potassium 4.4 mmol/L (3.5-5.1); Sodium Level 142 mmol/L (136-145)
[2018-03-29] MEDS: Multivitamins,Ther W-Minerals Tablet 1 TABLET PO (07:54)
[2018-03-29] MEDS: Ferrous Gluconate 325 MG Tablet PO (07:54)
[2018-03-29] MEDS: Calcium Carb/Vitamin D 1 TABLET Tablet PO ×2 (07:54→17:19)
[2018-03-29] MEDS: Gabapentin 300 MG Capsule 600 MG PO ×2 (07:54→17:19)
[2018-03-29] MEDS: Smz/Tmp Ds Tablet 1 TABLET PO ×2 (07:54→17:19)
[2018-03-29 08:20] VITALS: BP 107/62; PULSE 70; RESP 18; TEMP 36.8; O2SAT 97
[2018-03-29] MEDS: Enoxaparin 40 MG/0.4 ML Syringe SC (10:28)
[2018-03-29] MEDS: Sertraline 50 MG Tablet PO (10:29)
[2018-03-29] MEDS: Famotidine 20 MG Tablet PO ×2 (10:29→21:46)
[2018-03-29] MEDS: Topiramate 25 MG Tablet PO ×2 (10:29→21:45)
[2018-03-29] MEDS: Magnesium Oxide 400 MG Tablet PO (10:29)
--- NOTE | 2018-03-29 10:29 | PCM.PN.HOSP ---
Patient Problems: Active and Suspected Problems (Last Updated 02/26/18 @ 16:26 by Kristie Collins) Cystitis (Acute) +ESBL Muscle weakness (Acute) Subjective: Patient was seen and examined. Denies any new complaints. Waiting on insurance certification. Denies any fever or chills. No acute events overnight. Objective: Physical Exam General: Alert, Oriented x3, Cooperative, No apparent distress HEENT: Atraumatic, PERRLA, EOMI, Normocephalic Neck: Supple, No JVD, Negative Carotid Bruits Lungs: Clear to auscultation, Diminished Cardiovascular: Regular rate, Regular Rhythm, Normal S1, Normal S2, No murmurs Abdomen: Bowel Sounds Present, Soft, Non Tender, Non-Distended, Obese Extremities: No clubbing, No cyanosis, No edema, Capillary Refill Less than 3 Seconds Skin: No rashes, No breakdown Musculoskeletal: No Tenderness to Palpation of Joints or Extremities Neurological: Cranial nerves II-XII grossly intact, - - Lower extremity weakness Psych/Mental Status: Flat Affect Vitals/I&O's: Vital Signs Temp Pulse Resp BP Pulse Ox 98.2 F 70 18 107/62 97 03/29/18 08:20 03/29/18 08:20 03/29/18 08:20 03/29/18 08:20 03/29/18 08:20 Oxygen Delivery Method Room Air Weight: 89.9 kg Body Mass Index (BMI) 31.9 Intake and Output for Last 24 Hours 03/27/18 03/28/18 03/29/18 23:59 23:59 23:59 Intake Total 1299 / 1299 1300 / 1300 900 / 900 Output Total 950 / 950 1300 / 1300 1600 / 1600 Balance 349 / 349 0 / 0 -700 / -700 Laboratory Results 03/29/18 05:15: WBC 4.8, RBC 4.23, Hgb 11.5 L, Hct 36.9 L, MCV 87.2, MCH 27.2, MCHC 31.2 L, RDW 14.4, RDW Differential 45.4 H, Plt Count 198, MPV 11.0, Immature Gran % (Auto) 0.200, Neut % (Auto) 41.4 L, Lymph % (Auto) 44.5 H, Benton % (Auto) 8.3, Eos % (Auto) 5.0, Baso % (Auto) 0.6, Absolute Neuts (auto) 2.0, Absolute Lymphs (auto) 2.15, Total Counted Not Reportable 03/29/18 05:15: Sodium 142, Potassium 4.4, Chloride 108 H, Carbon Dioxide 27.0, Anion Gap 7, BUN 16, Creatinine 0.71, Estim Creat Clear Calc 82.83, Est GFR (MDRD) Af Amer 109, Est GFR (MDRD) Non-Af 90, BUN/Creatinine Ratio 22.5 H, Glucose 90, Calcium 9.9 Current Medications Acetaminophen (Tylenol) 650 mg PO Q6H PRN PRN PRN Reason: Mild Pain (scale 0-3)/T>100.7 Last Admin: 03/27/18 03:59 Dose: 650 mg Al Hydroxide/Mg Hydroxide (Mylanta Ii) 30 ml PO Q6H PRN PRN PRN Reason: Gastric burning Albuterol Sulfate (Ventolin Aerosols) 2.5 mg INHALATION Q2H PRN PRN PRN Reason: dyspnea, wheezing Albuterol/Ipratropium (Duoneb) 3 ml INHALATION Q6H PRN PRN PRN Reason: wheezing Baclofen (Lioresal) 10 mg PO Q6H PRN PRN PRN Reason: PAIN Last Admin: 03/28/18 03:57 Dose: 10 mg Bisacodyl (Dulcolax) 5 mg PO DAILY PRN PRN PRN Reason: Constipation Last Admin: 03/27/18 09:44 Dose: 5 mg Calamine/Phenol (Calmoseptine Ointment) 1 applic TOPICAL TID PRN; Protocol PRN Reason: redness to groin Last Admin: 03/28/18 22:06 Dose: 1 applicatio Calcium/Vitamin D (Os-Marty 500mg + D) 1 tablet PO BIDCM [facility] Last Admin: 03/29/18 07:54 Dose: 1 tablet Cholecalciferol (Vitamin D) 2,000 unit PO QHS [facility] Last Admin: 03/28/18 21:02 Dose: 2,000 unit Cyanocobalamin (Vitamin B12) 1,000 mcg PO QHS [facility] Last Admin: 03/28/18 21:02 Dose: 1,000 mcg Cyclobenzaprine HCl (Flexeril) 5 mg PO TID PRN PRN PRN Reason: MUSCLE SPASMS, STRAIN Last Admin: 03/29/18 01:41 Dose: 5 mg Enoxaparin Sodium (Lovenox) 40 mg SC DAILY@1000 [facility] Last Admin: 03/28/18 09:42 Dose: 40 mg Famotidine (Pepcid) 20 mg PO BID [facility] Last Admin: 03/28/18 21:02 Dose: 20 mg Ferrous [facility]conate ([facility]) [facility] Last Admin: 03/29/18 07:54 Dose: 325 mg Gabapentin (Neurontin) 900 mg PO QHS [facility] Last Admin: 03/28/18 21:02 Dose: 900 mg Gabapentin ([facility]urontin) [facility] Last Admin: 03/29/18 07:54 Dose: 600 mg Levothyroxine Sodium (Synthroid) 150 mcg PO DAILY@0600 [facility] Last Admin: 03/29/18 05:28 Dose: 150 mcg Lorazepam (Ativan) 1 mg PO BID PRN PRN PRN Reason: ANXIETY Last Admin: 03/28/18 22:03 Dose: 1 mg Magnesium Hydroxide (Milk Of Magnesia) 30 ml PO DAILY PRN PRN PRN Reason: Constipation Magnesium Oxide (Mag-Ox 400) 400 mg PO DAILY [facility] Last Admin: 03/28/18 09:41 Dose: 400 mg Morphine Sulfate (Ms Contin) 15 mg PO Q8 [facility] Last Admin: 03/29/18 05:28 Dose: 15 mg Multivitamins/Minerals (Multivitamin With Minerals) 1 tablet PO DAILY@0800 [facility] Last Admin: 03/29/18 07:54 Dose: 1 tablet Nutritional Formula (Lactose Free) (Ensure Enlive) 120 ml PO 4X/DAY [facility] Last Admin: 03/28/18 21:05 Dose: Not Given Ondansetron HCl (Zofran) 4 mg IV Q8H PRN PRN PRN Reason: NAUSEA Oxycodone HCl (Oxyir) 5 - 10 mg PO Q4H PRN PRN PRN Reason: PAIN Last Admin: 03/29/18 01:42 Dose: 10 mg Polyethylene Glycol (Miralax) 17 gm PO DAILY [facility] Last Admin: 03/28/18 09:40 Dose: Not Given Promethazine HCl (Phenergan) 12.5 mg IV Q6H PRN PRN PRN Reason: NAUSEA/VOMITING Senna (Senokot) 1 tablet PO BID [facility] Last Admin: 03/28/18 21:02 Dose: 1 tablet Sertraline HCl (Zoloft) 50 mg PO DAILY [facility] Last Admin: 03/28/18 09:41 Dose: 50 mg Sodium Chloride () 5 - 30 ml IV UD PRN PRN Reason: SALINE FLUSH Last Admin: 03/27/18 13:37 Dose: 10 ml Topiramate (Topamax) 25 mg PO BID [facility] Last Admin: 03/28/18 21:02 Dose: 25 mg Trimethoprim/Sulfamethoxazole (Bactrim Ds) [facility] Last Admin: 03/29/18 07:54 Dose: 1 tablet Medical Necessity - Tobacco Use Smoking Status: Former smoker Tobacco Use: Cigarettes Assessment/Plan All Active Problems (Last Updated 02/26/18 @ 16:26 by Kristie Collins) Cystitis (Acute) Muscle weakness (Acute) 57-year-old female with past medical history of spinal stenosis with near paraplegia admitted on 03/22/2018 with generalized weakness, back pain has been managed as acute UTI. 1. Acute ESBL E. coli, on Bactrim, ID consulted, will have last Bactrim tomorrow. 2. Complex left ovarian cyst, s/p laparoscopic salpingo-oophorectomy with cystoscopy, pathology findings are benign 3. stage I decubitus ulcer, wound consulted, continue appropriate dressing, frequent position changes. 4. Hypothyroidism, on levothyroxine, levels need to be rechecked in the outpatient in 2 weeks 5. Debility secondary to acute on chronic back pain, status post multiple back surgeries, follow-up with neurosurgery in the outpatient 6. Depression/anxiety, severe, no suicidal ideations or intentions. Remains on Zoloft. 7. DVT prophylaxis with Lovenox subcu 8. Disposition: Pending DC to [facility] facility Code Visit Inpatient E&M: 72123 Subs Hosp L2
[2018-03-29] MEDS: Senna Tablet 1 TABLET PO ×2 (10:33→21:46)
--- NOTE | 2018-03-29 10:53 | CASEMGMT ---
Social Work Note SHARITA faxed updated clinicals to Tessa at [facility]. Plan: [facility] pending pre-cert Mitra Gallegos NUCLEAR EQUIPMENT DESIGN ENGINEER, ATTENUATOR
[2018-03-29 13:55] VITALS: BP 114/57; PULSE 79; RESP 16; TEMP 37.1; O2SAT 97
[2018-03-29] MEDS: Menthol/Lanolin/Calamine/Znox 113 GM Tube 1 APPLIC TOPICAL (14:09)
[2018-03-29 21:31] VITALS: BP 128/65; PULSE 84; RESP 16; TEMP 37.1; O2SAT 95
[2018-03-29] MEDS: Gabapentin 300 MG Capsule 900 MG PO (21:44)
[2018-03-29] MEDS: LORazepam 1 MG Tablet PO (21:46)
[2018-03-30] MEDS: oxyCODONE 5 MG Tablet PO ×4 (00:39→13:31)
[2018-03-30 03:24] VITALS: BP 107/70; PULSE 69; RESP 14; TEMP 36.7; O2SAT 97
[2018-03-30] MEDS: Baclofen 10 MG Tablet PO (03:30)
[2018-03-30] MEDS: Acetaminophen 325 MG Tablet 650 MG PO ×2 (04:45→11:43)
[2018-03-30] MEDS: morphine SR 15 MG Tablet PO ×2 (06:20→14:46)
[2018-03-30] MEDS: Levothyroxine 150 MCG Tablet PO (06:20)
[2018-03-30] MEDS: Famotidine 20 MG Tablet PO (09:35)
[2018-03-30] MEDS: Gabapentin 300 MG Capsule 600 MG PO (09:35)
[2018-03-30] MEDS: Senna Tablet 1 TABLET PO (09:36)
[2018-03-30] MEDS: Sertraline 50 MG Tablet PO (09:36)
[2018-03-30] MEDS: Calcium Carb/Vitamin D 1 TABLET Tablet PO (09:36)
[2018-03-30] MEDS: Enoxaparin 40 MG/0.4 ML Syringe SC (09:36)
[2018-03-30] MEDS: Topiramate 25 MG Tablet PO (09:36)
[2018-03-30] MEDS: Smz/Tmp Ds Tablet 1 TABLET PO ×2 (09:36→14:46)
[2018-03-30] MEDS: Magnesium Oxide 400 MG Tablet PO (09:36)
[2018-03-30] MEDS: Ferrous Gluconate 325 MG Tablet PO (09:38)
[2018-03-30] MEDS: Multivitamins,Ther W-Minerals Tablet 1 TABLET PO (09:38)
[2018-03-30 09:40] VITALS: BP 125/58; PULSE 78; RESP 16; TEMP 36.4; O2SAT 96
--- NOTE | 2018-03-30 10:14 | CASEMGMT ---
Addendum entered by Mitra Gallegos 03/30/18 10:23: SHARITA spoke with Tessa at [facility] and updated her on this information. Tessa states that she will call [facility] and will let this worker know. Original Note: Social Work Note SW received message from Tessa at [facility] wanting updated PT/OT notes from yesterday and wanting to know pt's ambulation, transfers, toileting, balance and ADLS. It should be noted that this worker did fax clinicals yesterday to Tessa. SHARITA again faxed updated clinicals to Tessa at [facility]. SHARITA attempted to call Tessa but she is in morning meeting and this SW was unable to leave message. Plan: [facility] pending pre-cert Mitra Gallegos HAIR DRESSER, WAREHOUSE WORKER 2ND SHIFT
--- NOTE | 2018-03-30 10:20 | PCM.PN.HOSP ---
Subjective: Patient seen and examined. Denies any new complaints. Waiting on insurance certification. Denies any fever or chills. No acute events overnight. Objective: Physical Exam General: Alert, Oriented x3, Cooperative, No apparent distress HEENT: Atraumatic, PERRLA, EOMI, Normocephalic Neck: Supple, No JVD, Negative Carotid Bruits Lungs: Clear to auscultation, Diminished Cardiovascular: Regular rate, Regular Rhythm, Normal S1, Normal S2, No murmurs Abdomen: Bowel Sounds Present, Soft, Non Tender, Non-Distended, Obese Extremities: No clubbing, No cyanosis, No edema, Capillary Refill Less than 3 Seconds Skin: No rashes, No breakdown Musculoskeletal: No Tenderness to Palpation of Joints or Extremities Neurological: Cranial nerves II-XII grossly intact, - - Lower extremity weakness Psych/Mental Status: Flat Affect Vitals/I&O's: Vital Signs Temp Pulse Resp BP Pulse Ox 98.0 F 69 14 107/70 97 03/30/18 03:24 03/30/18 03:24 03/30/18 03:24 03/30/18 03:24 03/30/18 03:24 Oxygen Delivery Method Room Air Weight: 89.9 kg Body Mass Index (BMI) 31.9 Intake and Output for Last 24 Hours 03/28/18 03/29/18 03/30/18 23:59 23:59 23:59 Intake Total 1300 / 1300 1875 / 1875 800 / 800 Output Total 1300 / 1300 2400 / 2400 700 / 700 Balance 0 / 0 -525 / -525 100 / 100 Current Medications Acetaminophen (Tylenol) 650 mg PO Q6H PRN PRN PRN Reason: Mild Pain (scale 0-3)/T>100.7 Last Admin: 03/30/18 04:45 Dose: 650 mg Al Hydroxide/Mg Hydroxide (Mylanta Ii) 30 ml PO Q6H PRN PRN PRN Reason: Gastric burning Albuterol Sulfate (Ventolin Aerosols) 2.5 mg INHALATION Q2H PRN PRN PRN Reason: dyspnea, wheezing Albuterol/Ipratropium (Duoneb) 3 ml INHALATION Q6H PRN PRN PRN Reason: wheezing Baclofen (Lioresal) 10 mg PO Q6H PRN PRN PRN Reason: PAIN Last Admin: 03/30/18 03:30 Dose: 10 mg Bisacodyl (Dulcolax) 5 mg PO DAILY PRN PRN PRN Reason: Constipation Last Admin: 03/27/18 09:44 Dose: 5 mg Calamine/Phenol (Calmoseptine Ointment) 1 applic TOPICAL TID PRN; Protocol PRN Reason: redness to groin Last Admin: 03/29/18 14:09 Dose: 1 applicatio Calcium/Vitamin D (Os-Marty 500mg + D) [facility] Last Admin: 03/30/18 09:36 Dose: 1 tablet [facility]ifer[facility] ([facility]amin [facility]) [facility] Last Admin: 03/29/18 21:45 Dose: 2,000 unit Cyanocobalamin (Vitamin B12) 1,000 mcg PO QHS [facility] Last Admin: 03/29/18 22:10 Dose: Not Given Cyclobenzaprine HCl (Flexeril) 5 mg PO TID PRN PRN PRN Reason: MUSCLE SPASMS, STRAIN Last Admin: 03/30/18 00:43 Dose: 5 mg Enoxaparin Sodium (Lovenox) 40 mg SC DAILY@1000 [facility] Last Admin: 03/30/18 09:36 Dose: 40 mg Famotidine (Pepcid) 20 mg PO BID [facility] Last Admin: 03/30/18 09:35 Dose: 20 mg Ferrous Gluconate (Ferrous Gluconate) [facility] Last Admin: 03/30/18 09:38 Dose: 325 mg Gabapentin (Neurontin) 900 mg PO QHS [facility] Last Admin: 03/29/18 21:44 Dose: 900 mg Gabapentin (Neurontin) [facility] Last Admin: 03/30/18 09:35 Dose: 600 mg Levothyroxine Sodium (Synthroid) 150 mcg PO DAILY@0600 [facility] Last Admin: 03/30/18 06:20 Dose: 150 mcg Lorazepam (Ativan) 1 mg PO BID PRN PRN PRN Reason: ANXIETY Last Admin: 03/29/18 21:46 Dose: 1 mg Magnesium Hydroxide (Milk Of Magnesia) 30 ml PO DAILY PRN PRN PRN Reason: Constipation Magnesium Oxide (Mag-Ox 400) 400 mg PO DAILY [facility] Last Admin: 03/30/18 09:36 Dose: 400 mg Morphine Sulfate (Ms Contin) 15 mg PO Q8 [facility] Last Admin: 03/30/18 06:20 Dose: 15 mg Multivitamins/Minerals (Multivitamin With Minerals) 1 tablet PO DAILY@0800 [facility] Last Admin: 03/30/18 09:38 Dose: 1 tablet Nutritional Formula (Lactose Free) (Ensure Enlive) 120 ml PO 4X/DAY [facility] Last Admin: 03/30/18 09:37 Dose: Not Given Ondansetron HCl (Zofran) 4 mg IV Q8H PRN PRN PRN Reason: NAUSEA Oxycodone HCl (Oxyir) 5 - 10 mg PO Q4H PRN PRN PRN Reason: PAIN Last Admin: 03/30/18 09:38 Dose: 10 mg Polyethylene Glycol (Miralax) 17 gm PO DAILY [facility] Last Admin: 03/30/18 09:37 Dose: Not Given Promethazine HCl (Phenergan) 12.5 mg IV Q6H PRN PRN PRN Reason: NAUSEA/VOMITING Senna (Senokot) 1 tablet PO BID [facility] Last Admin: 03/30/18 09:36 Dose: 1 tablet Sertraline HCl (Zoloft) 50 mg PO DAILY [facility] Last Admin: 03/30/18 09:36 Dose: 50 mg Sodium Chloride () 5 - 30 ml IV UD PRN PRN Reason: SALINE FLUSH Last Admin: 03/27/18 13:37 Dose: 10 ml Topiramate (Topamax) 25 mg PO BID [facility] Last Admin: 03/30/18 09:36 Dose: 25 mg Trimethoprim/Sulfamethoxazole (Bactrim Ds) 1 tablet PO BIDCM [facility] Last Admin: 03/30/18 09:36 Dose: 1 tablet Medical Necessity - Tobacco Use Smoking Status: Former smoker Tobacco Use: Cigarettes Assessment/Plan All Active Problems (Last Updated 02/26/18 @ 16:26 by Kristie Collins) Cystitis (Acute) Muscle weakness (Acute) 57-year-old female with past medical history of spinal stenosis with near paraplegia admitted on 03/22/2018 with generalized weakness, back pain has been managed as acute UTI. 1. Acute ESBL E. coli, on Bactrim, ID consulted, completed antibiotics. 2. Complex left ovarian cyst, s/p laparoscopic salpingo-oophorectomy with cystoscopy, pathology findings are benign 3. stage I decubitus ulcer, wound consulted, continue appropriate dressing, frequent position changes. 4. Hypothyroidism, on levothyroxine, levels need to be rechecked in the outpatient in 2 weeks 5. Debility secondary to acute on chronic back pain, status post multiple back surgeries, follow-up with neurosurgery in the outpatient 6. Depression/anxiety, severe, no suicidal ideations or intentions. Remains on Zoloft. 7. DVT prophylaxis with Lovenox subcu 8. Disposition: Pending DC to halfway facility Code Visit Inpatient E&M: 90685 Subs Hosp L2
--- NOTE | 2018-03-30 13:00 | CASEMGMT ---
Social Work Note SW received message from Tessa at [facility] stating that pre-cert has been obtained and pt is able to discharge today. RN DERRICK Fitzgerald updated Dr. Link of this. SHARITA faxed completed discharge paperwork to Tessa at [facility] including transfer to extended care facility, signed medication list and any scripts. Originals in SNF folder and copy on pt's chart. SW updated pt on pre-cert and of discharge. Pt states that she would like transportation to be set up via cot. SW set up transportation through [facility] via cot for 3:30pm. Transportation form on SNF folder and copy on pt's chart. [facility] completed in HENS. Original in SNF folder and copy on pt's chart. SHARITA placed a call to [facility] and spoke with Laura. Laura states that Tessa is in meeting at this time. SHARITA left message with Laura to tell Tessa transportation time and that discharge paperwork has been faxed. Plan: Pt to discharge today to [facility] with [facility] transporting via cot at 3:30pm. Mitra Gallegos REFINERY OPERATOR CRUDE UNIT, INSURANCE SALES MANAGER
--- NOTE | 2018-03-30 14:29 | PCM.TXEXTCAR ---
- Diet 03/22/18 20:49 Diet: Regular Diet Food consistency:: Regular Liquid Consistency:: Regular/Thin - Routine Orders/Code Status Enema Type: Fleetz Enema Frequency: Daily PRN Suppository Type: Dulcolax 10mg Suppository Frequency: Daily PRN Routine Lab Work: - - BMP, CBC Q 2 Weeks. TSH in 2 weeks. Code Status: Full Code - Wound(s) ABD Wound Type: Surgical Incision - Suggestions for Active Care Change Position every (hours): 2 Times a day to sit in chair: 3 - Therapies Physical Therapy: Eval and Treat Occupational Therapy: Eval and Treat - Allergies/Procedures Done in Hospital Allergies/Adverse Reactions: Allergies NSAIDS (Non-Steroidal Anti-Inflamma Allergy (Verified 03/06/18 23:48) GASTRIC BYPASS trazodone Adverse Reaction (Verified 03/22/18 23:38) Other migraine Procedures: None - Type of Care/Length of Stay Estimated LOS: Convalescent Care Less Than 30 days Type of Care Needed: Skilled Rehab Potential: Fair Prognosis: Fair - Additional Orders/Day of Discharge H&P will serve as current which was dated: 03/22/18 Day of Discharge: 03/27/18 - Dietary and Speech Recommendations Dietitian Recommendations/Changes: Rec liberal Regular diet d/t poor po intake. Rec continue ONS medpass - Follow Up Care Primary Care Physician: Kevin Bah MD [Primary Care Provider] - Please follow up with your Primary Care Physician in: 1 Week Please Follow Up With: Psychiatry When: 1-2 Weeks Please Follow Up With: Will Comer MD When: 1-2 Weeks
--- NOTE | 2018-03-30 14:30 | PCM.DC.SUM ---
Discharge Date and Diagnosis Date of Admission: 03/22/18 Date of Discharge: 03/30/18 - Primary Discharge Diagnosis Active and Suspected Problems (Last Updated 02/26/18 @ 16:26 by Kristie Collins) Cystitis (Acute) +ESBL Muscle weakness (Acute) - Secondary Discharge Diagnosis Chronic Problems (Last Updated 02/26/18 @ 16:26 by Kristie Collins) Complex ovarian cyst (Chronic) cea and ca125 ordered Major depressive disorder (Chronic) Anxiety (Chronic) Constipation (Chronic) GERD without esophagitis (Chronic) Chronic cluster headache, not intractable (Chronic) Age-related osteoporosis without current pathological fracture (Chronic) Primary generalized (osteo)arthritis (Chronic) Other intervertebral disc degeneration, lumbar region (Chronic) Hypothyroidism (Chronic) Anemia (Chronic) COPD (chronic obstructive pulmonary disease) (Chronic) Spinal stenosis, lumbar region without neurogenic claudication (Chronic) Neuromuscular scoliosis (Chronic) Chronic low back pain (Chronic) Paraplegia (Chronic) Tobacco use disorder (Chronic) Morbid obesity (Chronic) HTN (hypertension) (Chronic) HLD (hyperlipidemia) (Chronic) Dysthymic disorder (Chronic) Diabetes mellitus type 2, uncontrolled, without complications (Chronic) Chronic Airway Obstruction NEC (Chronic) Hospital Course and Treatment ID Operations: None Procedures: None Summary of Care Provided: 57-year-old female with past medical history of spinal stenosis with near paraplegia admitted on 03/22/2018 with generalized weakness, back pain and has been managed as acute UTI. Urine cultures were positive for ESBL E. Coli. ID was consulted and recommended on Bactrim. Completed antibiotics in the hospital. Patient was skilled for SNF and subsequently discharged. Discharge Diet: Low fat/ Low Cholesterol, 2000 mg Sodium Diet Discharge Activity: Return to Normal Activity Home Medications: Medications to take at Discharge Levothyroxine Sodium [Levoxyl] 150 mcg PO DAILY 07/29/13 Calcium Citrate/Vitamin D3 [Calcium Citrate-Vit D3 Tablet] 1 ea PO BID 04/09/16 Cholecalciferol (VIT D3) [Vitamin D3] 2,000 unit PO QHS 04/09/16 Biotin 1,000 mcg PO DAILY 02/16/18 Cyanocobalamin (Vitamin B-12) [Vitamin B-12] 1,000 mcg PO QHS 02/16/18 Ferrous Gluconate 324 mg PO DAILY 02/16/18 Gabapentin [Neurontin] 600 mg PO BID 02/16/18 Gabapentin [Neurontin] 900 mg PO QHS 02/16/18 Magnesium Oxide 400 mg PO DAILY 02/16/18 Senna [Senokot] 1 tab PO BID 02/16/18 Topiramate [Topamax] 25 mg PO BID 02/16/18 acetaminophen 325 mg tablet 325 mg PO Q6H PRN 02/26/18 baclofen 10 mg tablet 10 mg PO Q6H PRN tab 02/26/18 [id number] tablet 1 tab PO QDAY 02/26/18 polyethylene glycol 3350 17 gram/dose oral powder 17 gm PO DAILY 02/26/18 Sennosides [Senna] 8.6 mg PO BID 03/06/18 Ondansetron HCl [Zofran] 4 mg PO Q6H PRN PRN 03/22/18 Oxycodone [Oxyir] 5 mg PO Q6H PRN PRN 2 Days #8 tab 03/27/18 Sertraline HCl [Zoloft] 50 mg PO DAILY tablet 03/27/18 Cyclobenzaprine [Flexeril] 5 mg PO TID PRN PRN tablet 03/30/18 Enoxaparin [Lovenox] 40 mg SC DAILY@1000 syringe 03/30/18 Ensure Enlive 120 ml PO 4X/DAY liquid 03/30/18 Ipratropium/Albuterol Sulfate [Duoneb] 3 ml INHALATION Q6H PRN PRN ampul.neb 03/30/18 Lorazepam [Ativan] 1 mg PO BID PRN PRN #10 tab 03/30/18 Oxycodone [Oxyir] 5 - 10 mg PO Q4H PRN PRN #20 tab 03/30/18 morphine SR tablet [Ms Contin] 15 mg PO Q8 #10 tab 03/30/18 Following Prescrptions Were Given to Patient: Oxycodone [Oxyir] 5 - 10 mg PO Q4H PRN PRN #20 tab PRN Reason: Pain Oxycodone [Oxyir] 5 mg PO Q6H PRN PRN 2 Days #8 tab PRN Reason: Pain Lorazepam [Ativan] 1 mg PO BID PRN PRN #10 tab PRN Reason: Anxiety morphine SR tablet [Ms Contin] 15 mg PO Q8 #10 tab Primary Care Physician: Kevin Bah MD [Primary Care Provider] - Please follow up with your Primary Care Physician in: 1 Week Please Follow Up With: Psychiatry When: 1-2 Weeks Please Follow Up With: Will Comer MD When: 1-2 Weeks Patient Instructions: Extended-Spectrum Beta-lactamase (ESBL) - Producing Bacteria Disposition: [facility] facility Minutes spent on discharge:: 40 Patient Condition:: Stable Medical Necessity - Tobacco Use Smoking Status: Former smoker Tobacco Use: Cigarettes Meaningful Use Info Meaningful Use Diagnoses (Choose all that apply): None applicable Code Visit Inpatient E&M: 25623 Disch Hosp
[2018-03-30 14:48] VITALS: BP 122/63; PULSE 73; RESP 16; TEMP 36.8; O2SAT 96
--- NOTE | 2018-03-30 15:36 | NURSING ---
report called to Lily at [facility].
== END 2018-03-30 15:43 | disposition skilled nursing facility (03) | DRG 690 ==
LOC: ED 19:26 → MS3 21:06
PROVIDERS: Hospitalist; Admitting Provider Family Medicine; Emergency Provider Emergency Medicine; Family Provider Internal Medicine; PCP Internal Medicine; Visit Provider Internal Medicine
DX: N30.00 Acute cystitis without hematuria (principal); F32.2 Major depressive disorder, single episode, severe without psychotic features; R45.851 Suicidal ideations; G82.20 Paraplegia, unspecified; L89.151 Pressure ulcer of sacral region, stage 1; E03.9 Hypothyroidism, unspecified; J44.9 Chronic obstructive pulmonary disease, unspecified; M62.81 Muscle weakness (generalized); Z87.891 Personal history of nicotine dependence; B96.20 Unspecified Escherichia coli [E. coli] as the cause of diseases classified elsewhere; R53.81 Other malaise; M54.5 Low back pain; Z91.14 Patient's other noncompliance with medication regimen; K21.9 Gastro-esophageal reflux disease without esophagitis; M48.061 Spinal stenosis, lumbar region without neurogenic claudication; M81.0 Age-related osteoporosis without current pathological fracture; E66.01 Morbid (severe) obesity due to excess calories; Z68.31 Body mass index [BMI] 31.0-31.9, adult; M15.9 Polyosteoarthritis, unspecified; D64.9 Anemia, unspecified; I10 Essential (primary) hypertension; E78.5 Hyperlipidemia, unspecified
CPT/HCPCS: 36415; 80048; 80076; 80307; 80320; 80329; 81001; 82962; 83735; 84443; 85025; 87086; 87088; 87186; 94640; 97110; 97162; 97166; 97530; 97535; 97802; 99285; J2185; J7030; J7040; P9612; A4216; G0480

== ENCOUNTER → 2018-09-18 13:44 | Outpatient (CLI) | payer MEDICARE, MEDICAID, SELFPAY ==
--- NOTE | 2018-09-18 13:46 | RAD_ITS ---
STUDY: X-RAY - LUMBAR SPINE REASON FOR EXAM: Female, 58 years old. Back pain. TECHNIQUE: 2 view(s) of the lumbar spine were obtained. COMPARISON: 07/12/2017. FINDINGS: Normal lumbar lordosis. There is no substantial scoliosis. There is a remote posterior spinal fusion, involving the thoracic spine and upper lumbar spine, extending down to the L3 level, and also present on previous study. There is a more recent posterior spinal fusion at the L3-S2 levels, with placement of bilateral fixation rods and multiple pedicles screws. Hardware appears to be intact without evidence for loosening. There is kyphoplasty cement in the L1 and T12 vertebral bodies, also present on previous study. There is 5 mm anterolisthesis at the L5-S1 level and there is a 6 mm anterolisthesis at the L3-4 level, which were not present on previous study, but probably represent postop alignment. There is multilevel endplate spondylosis of the lumbar vertebrae. There is multi-level degenerative disc disease with multi-level disc space narrowing. There is atherosclerotic calcification of the abdominal aorta without a demonstrated aneurysm. RAD/Lumbar Spine 2 or 3 Views IMPRESSION: Status post extensive posterior spinal fusions in the lumbosacral spine and visualized lower thoracic spine. Hardware appears to be intact. Electronically Signed: Dileep Juarez MD at 2:49 EST , Service support ,
--- NOTE | 2018-09-18 13:46 | RAD_ITS ---
STUDY: X-RAY - THORACIC SPINE REASON FOR EXAM: Female, 58 years old. Back pain. TECHNIQUE: 2 view(s) of the thoracic spine were obtained. COMPARISON: 09/05/2017. X-ray L-spine 09/18/2018. FINDINGS: There has been previous posterior spinal fusion at the T4-L3 levels with placement of bilateral posterior fixation rods and multiple pedicle screws.w hardware is intact with no evidence for loosening. There is kyphoplasty cement in the T12 and L1 vertebral bodies, also present on previous exam. Normal kyphosis of the thoracic spine. There is no substantial scoliosis. Normal thoracic vertebrae. There is multilevel spondylosis.. There is multilevel disc space narrowing of the thoracic spine. The soft tissue structures are unremarkable. RAD/Thoracic Spine 3 Views IMPRESSION: Intact posterior spinal fixation hardware. Multilevel degenerative changes. Previous kyphoplasty T12 and L1. Electronically Signed: Dileep Juarez MD at 2:58 EST , Service support ,
== END ==
PROVIDERS: Family Provider Internal Medicine; PCP Internal Medicine; Referring Provider Orthopaedic Surgery; Visit Provider Orthopaedic Surgery
DX: G82.20 Paraplegia, unspecified (principal)
CPT/HCPCS: 72072; 72100

== ENCOUNTER → 2018-11-15 | Outpatient (CLI) | payer MEDICARE, SELFPAY ==
--- NOTE | 2018-11-15 12:22 | CT_ITS ---
STUDY: CT ABDOMEN AND PELVIS WITH CONTRAST REASON FOR EXAM: Female, 58 years old. Left sided abdominal pain. History of cholecystectomy. Patient paralyzed from back surgery. RADIATION DOSAGE (If Supplied By Facility): CTDIvol = ( 20.27 ) mGy, DLP = ( 1341.71 ) mGycm TECHNIQUE: Transaxial images were obtained from the dome of the diaphragm to the symphysis pubis with oral contrast. 100ML IV/Oral Isovue 300 was administered. Sagittal and coronal images were reconstructed. Individualized dose optimization techniques were used for this CT. COMPARISON: February 16, 2018. FINDINGS: Linear scar in the right lung base. Lungs are otherwise clear. The heart is unremarkable. There is hepatomegaly with diffuse hepatic enlargement. There is no focal mass. There are surgical clips in the gallbladder fossa consistent with a prior cholecystectomy. Normal spleen. Normal pancreas. Normal bilateral adrenal glands. The right kidney is slightly displaced caudally by the enlarged liver but is otherwise unremarkable. Normal left kidney. Normal visualized ureters. Is evidence of gastric bypass surgery. Normal small intestine. Colon is mildly distended with air. There is increased feces in the rectosigmoid colon. There is no mass or diverticuli. There is a wandering cecal which lies along the undersurface of the right abdominal wall near the umbilicus. There is non-visualization of the appendix. There is diffuse atherosclerotic calcification of the abdominal aorta, without a demonstrated aneurysm. Normal inferior vena cava. Normal retroperitoneum. There appears to be a small diverticulum off the left anterior aspect of the bladder dome. The urinary bladder is otherwise unremarkable. Normal uterus. There is no adnexal mass. There are phleboliths in the pelvis without lymphadenopathy. No free air or free fluid is seen within the peritoneal cavity Normal abdominal wall. Marked surgical changes on the thoracic or lumbar spine. Scatter artifact from hardware limits evaluation. CT/Abdomen/Pelvis WITH Contrast IMPRESSION: 1. Increased colonic feces with mild gaseous distention of the colon. There is no evidence of obstruction. 2. Resolution of the cystic mass and inflammatory changes in the left pelvis seen on the previous examination. 3. Absence of the left ovarian dermoid seen on the previous examination. 4. No other major interval change. Electronically Signed: Mike Boles DO at 16:55 EDT Tel [phone], Service support ,
[2018-11-15 12:38] LABS: Anion Gap 4 (5-15); BUN 24 mg/dL (7-18); BUN/Creat Ratio 27.7 RATIO (10-20); Calcium,Total 9.5 mg/dL (8.5-10.1); Chloride 109 mmol/L (98-107); Creatinine, Serum 0.86 mg/dL (0.55-1.02); EST Glomerular Filtration Rate 72 mL/min (>60); Est Glom Filt Rate - Afr Amer 87 mL/min (>60); Glucose 173 mg/dL (74-106); Potassium 4.5 mmol/L (3.5-5.1); Sodium Level 140 mmol/L (136-145)
== END | disposition home or self-care (01) ==
LOC: CT 12:08
PROVIDERS: Family Provider Internal Medicine; PCP Internal Medicine; Referring Provider Internal Medicine; Visit Provider Internal Medicine
DX: R10.9 Unspecified abdominal pain (principal); R18.8 Other ascites
CPT/HCPCS: 36415; 74177; 80048; Q9967

== ENCOUNTER 2018-12-21 11:38 | Day surgery (SDC) | payer MEDICARE, SELFPAY ==
[2018-12-21 12:12] VITALS: BP 112/68; PULSE 84; RESP 18; TEMP 36.6; O2SAT 98; BMI 35.5
--- NOTE | 2018-12-21 15:05 | RAD_ITS ---
STUDY: X-RAY - SACROILIAC JOINTS REASON FOR EXAM: Female, 58 years old. SI joint injection TECHNIQUE: 1 view(s) of the sacroiliac joints were obtained. COMPARISON: None. FINDINGS: Single intraoperative spot fluoroscopy image demonstrates extensive postsurgical fixation. SI joint injection is being performed. Please see performing physician's report for full details. RAD/Fluoro Guided Needle Placement IMPRESSION: As above Electronically Signed: Alex Teague DO at 21:01 EDT Tel , Service support ,
[2018-12-21] MEDS: Bupivacaine 0.25% 30 ML Vial (15:11)
[2018-12-21] MEDS: Triamcinolone Acetonide 40 MG/ML Vial (15:11)
--- NOTE | 2018-12-21 15:13 | RAD_ITS ---
STUDY: X-RAY - SACROILIAC JOINTS REASON FOR EXAM: Female, 58 years old. SI joint injection TECHNIQUE: 1 view(s) of the sacroiliac joints were obtained. COMPARISON: None. FINDINGS: Single intraoperative spot fluoroscopy image demonstrates extensive postsurgical fixation. SI joint injection is being performed. Please see performing physician's report for full details. RAD/Fluoro Guided Needle Placement IMPRESSION: As above Electronically Signed: Alex Teague DO at 21:01 EDT Tel , Service support ,
[2018-12-21 15:20] VITALS: BP 108/80; BP 112/68; PULSE 76; RESP 16; TEMP 36.3; O2SAT 98
[2018-12-21 15:25] VITALS: BP 112/68; BP 125/74; PULSE 75; RESP 16; O2SAT 96
[2018-12-21 15:30] VITALS: BP 112/68; BP 128/74; PULSE 74; RESP 16; O2SAT 95
[2018-12-21 15:35] VITALS: BP 112/68; BP 112/73; PULSE 72; RESP 16; TEMP 36; O2SAT 96
[2018-12-21 16:15] VITALS: BP 112/68
== END 2018-12-21 16:20 | disposition home or self-care (01) ==
LOC: SDC 11:38 → AC 11:40
PROVIDERS: Family Provider Internal Medicine; PCP Internal Medicine; Referring Provider Anesthesiology Pain Medicine; Visit Provider Anesthesiology Pain Medicine
PROC: 3E0U3GC Introduction of Other Therapeutic Substance into Joints, Percutaneous Approach (ICD-10-PCS; CPT 27096; principal; 2018-12-21 12:45)
DX: M48.061 Spinal stenosis, lumbar region without neurogenic claudication (principal); M96.1 Postlaminectomy syndrome, not elsewhere classified; G89.4 Chronic pain syndrome; M46.1 Sacroiliitis, not elsewhere classified; E78.00 Pure hypercholesterolemia, unspecified; Z98.84 Bariatric surgery status; E06.9 Thyroiditis, unspecified; I10 Essential (primary) hypertension; Z87.891 Personal history of nicotine dependence; Z99.3 Dependence on wheelchair; Z79.891 Long term (current) use of opiate analgesic
CPT/HCPCS: G0259; 76000; 77002; J7120

== ENCOUNTER → 2019-03-05 12:53 | Outpatient (CLI) | payer MEDICARE, SELFPAY ==
--- NOTE | 2019-03-05 12:55 | RAD_ITS ---
STUDY: X-RAY - LUMBAR SPINE REASON FOR EXAM: Female, 58 years old. Postop TECHNIQUE: 3 view(s) of the lumbar spine were obtained. COMPARISON: 09/18/2018 FINDINGS: No significant change. Again seen are very extensive posterior fixation changes with posterior rods and intrapedicular screws from the thoracic spine down to the sacroiliac joints. No significant changes. No evidence for surgical appliance failure. Diffuse demineralization. Kyphoplasty cement seen at T12 and L1. Partial compression fracture of T11. Stable alignment and curvature, grossly within normal limits. There is atherosclerotic calcification of the abdominal aorta without a demonstrated aneurysm. RAD/Lumbar Spine 2 or 3 Views IMPRESSION: No change or acute abnormalities. Stable extensive postsurgical changes and long segment posterior fixations. Electronically Signed: Mukesh Cherry MD at 17:05 EDT , Service support ,
--- NOTE | 2019-03-05 13:00 | RAD_ITS ---
STUDY: X-RAY - THORACIC SPINE REASON FOR EXAM: Female, 58 years old. Postop TECHNIQUE: 3 view(s) of the thoracic spine were obtained. COMPARISON: 09/18/2018. FINDINGS: No definite change. Stable appearance of long bilateral Ga rods and bilateral intrapedicular screws extending from T4 down to the sacroiliac joints. No new compression fractures or acute abnormalities. Normal curvature and alignment. Mild diffuse degenerative changes. RAD/Thoracic Spine 2 Views IMPRESSION: No change or acute abnormality. Extensive stable postsurgical changes. Electronically Signed: Mukesh Cherry MD at 21:57 EDT , Service support ,
== END ==
PROVIDERS: Family Provider Internal Medicine; PCP Internal Medicine; Referring Provider Orthopaedic Surgery; Visit Provider Orthopaedic Surgery
DX: Z98.1 Arthrodesis status (principal)
CPT/HCPCS: 72070; 72100

== ENCOUNTER → 2019-03-19 | Outpatient (CLI) | payer MEDICARE, SELFPAY ==
[2019-03-19 13:26] VITALS: BMI 35.5
--- NOTE | 2019-03-19 13:27 | RAD_ITS ---
STUDY: X-RAY - LEFT KNEE REASON FOR EXAM: Chronic pain. TECHNIQUE: 4 view(s) of the knee. COMPARISON: Radiographs 09/13/2014. FINDINGS: There is osteopenia. Normal visualized distal femur. Normal visualized proximal tibia and fibula. Normal proximal tibiofibular articulation. Normal medial femorotibial compartment. There is interval development of mild right space narrowing of the lateral femorotibial compartment. There is moderate joint space narrowing of the patellofemoral articulation, increased since the prior study. There is interval development of a small ossification at the origin of the medial collateral ligament. RAD/Knee 4 or More Views IMPRESSION: Arthrosis of the lateral femorotibial and patellofemoral compartments. Remote injury with small ossification at the origin of the medial collateral ligament. Osteopenia. Electronically Signed: Danny Weir MD at 14:12 EDT Tel , Service support ,
== END | disposition home or self-care (01) ==
LOC: HPRAD 13:26
PROVIDERS: Family Provider Internal Medicine; PCP Internal Medicine; Referring Provider Orthopaedic Surgery; Visit Provider Orthopaedic Surgery
DX: M25.562 Pain in left knee (principal)
CPT/HCPCS: 73564

== ENCOUNTER 2019-04-28 19:50 | Emergency (ER) | payer MEDICARE, SELFPAY ==
[2019-03-19 13:26] VITALS: BMI 35.5
[2019-04-28 19:52] VITALS: BP 174/91; PULSE 93; RESP 22; TEMP 37.4; O2SAT 97; BMI 39.6
[2019-04-28] MEDS: Fluconazole 100 MG Tablet 200 MG PO (20:09)
--- NOTE | 2019-04-28 20:10 | ED.VIS.GEN ---
History of Present Illness Chief Complaint: Female C/O Informant: Patient Onset: Days - Onset Monday Context: Sudden Onset Timing: Continuous Quality: Burning Location: Months, labia, perineum and vagina Current Severity: Moderate Maximum Severity: Moderate Worsened by: Urination Relieved by: Nothing Associated Symptoms: No symptoms of hyperglycemia Narrative: Patient is a middle-age woman who presents with burning itching rash involving the mons, labia, perineum and vagina. Onset Monday. She states she was a diabetic. She states she lost 140 pounds. She does complain of burning with urination. She denies blood, frequency or urgency. She denies change in bowels. She denies abdominal pain. She denies nausea or vomiting. She denies polyuria, polydipsia or polyphagia. She denies change in vision is specific blurred vision. Prior similar symptoms: No Recent Illness/Hospitalization: No - Past Medical History (1) Muscle weakness Status: Acute (2) Anxiety Status: Chronic (3) COPD (chronic obstructive pulmonary disease) Status: Chronic (4) Chronic cluster headache, not intractable Status: Chronic (5) Diabetes mellitus type 2, uncontrolled, without complications Status: Chronic (6) Dysthymic disorder Status: Chronic (7) GERD without esophagitis Status: Chronic (8) HLD (hyperlipidemia) Status: Chronic (9) HTN (hypertension) Status: Chronic (10) Hypothyroidism Status: Chronic (11) Morbid obesity Status: Chronic (12) Paraplegia Status: Chronic (13) Spinal stenosis, lumbar region without neurogenic claudication Status: Chronic Past Medical History - Allergies and Home Meds Allergies/Adverse Reactions: Allergies NSAIDS (Non-Steroidal Anti-Inflamma Allergy (Verified 12/20/18 10:26) GASTRIC BYPASS trazodone Adverse Reaction (Verified 12/20/18 10:26) Other migraine Primary Care Physician: Kevin Bah MD [Primary Care Provider] - Prior records reviewed: Yes Surgical History: - - Cholecystectomy, bilateral oophorectomy most recently 03/07/18 secondary to complex ovarian cyst with postoperative diagnosis left ovarian dermoid cyst with ventral hernia as well as suprapubic preperitoneal abdominal wall mass with bilateral tubes, ovaries and cytological washings sent, Cristopher-en-Y, right knee arthroscopic surgery, cervical back surgery March 2017, recent lumbar back surgery December 2017. Lives: Alone Smoking Status: Former smoker Alcohol: None Drugs: None - Family History Maternal Family History: Family History (Last Updated 02/26/18 @ 16:13 by Kristie Collins) Father Diabetes Hypertension Myocardial infarction Alcoholism Brother Myocardial infarction Alcoholism Mother CVA (cerebral vascular accident) Family History: Reports: Diabetes, High Cholesterol, Heart Disease, Hypertension Paternal Family History: Family History (Last Updated 02/26/18 @ 16:13 by Kristie Collins) Father Diabetes Hypertension Myocardial infarction Alcoholism Brother Myocardial infarction Alcoholism Mother CVA (cerebral vascular accident) Family History: Reports: Diabetes, High Cholesterol, Heart Disease, Hypertension Review of Systems General: Denies: Chills, Fever, Malaise, Sweats Cardiovascular: Denies: Chest pain, Palpitations Respiratory: Denies: Dyspnea, Cough, Dyspnea on exertion Gastrointestinal: Denies: Abdominal pain, Nausea, Vomiting, Diarrhea, Melena, Hematochezia Genitourinary: Denies: Dysuria - Area of inflammation santizo when she urinates, Hematuria, Frequency Musculoskeletal: Denies: Myalgias, Arthralgias, Neck pain, Back pain, Swelling, Extremity Pain, -, - Skin: Reports: Rash Allergy: Denies: Uticaria, Swelling of the mouth Physical Exam Vital Signs/Narrative: Vital Signs Temp Pulse Resp BP Pulse Ox 04/28/19 19:52 99.4 F H 93 22 H 174/91 H 97 Inital Vital Signs reviewed: Yes General: Well nourished, Well developed, No Acute Distress Head: Normocephalic, Atraumatic Eyes: Perrl, EOMI. Negative for: Pale conjunctiva, Scleral icterus Cardiovascular: Regular rate, Regular rhythm Respiratory: No distress Abdomen: Soft, Nontender, Nondistended Rectal: Deferred : - - Has a erythematous inflammatory rash consistent with monilial infection as well as dry skin. Labia majora and minora are erythematous inflamed and there is a thick whitish discharge noted. There is no inguinal lymphadenopathy. Back: Nontender, Normal Inspection Extremities: Nontender, No edema Skin: Normal color, Rash Neurological: Alert, Oriented x3, Cranial nerves II-XII grossly intact Psychological: Normal affect Diagnostic/Tx/Re-eval - Medical Decision Making Will obtain BTT to assess blood sugar. She was treated with Diflucan and Monistat topical cream. Sugar is 130. Plan is to discharge to home. ED Disposition - Plan for ED Patient: Disposition: Home or Assisted Living Diagnosis: Yeast infection involving the vagina and surrounding area Instructions: Vaginal Infection: Yeast (Candidiasis) Referrals: Kevin Bah MD [Primary Care Provider] - 3-5 Days if not improving
[2019-04-28 20:16] LABS: Bedside Glucose 130 mg/dL (70-110)
[2019-04-28] MEDS: Miconazole Nitrate Cream 1 APPLIC TOPICAL (20:36)
[2019-04-28 21:19] VITALS: BP 161/76; PULSE 81; RESP 18; O2SAT 97
== END 2019-04-28 21:19 | disposition home or self-care (01) ==
PROVIDERS: Emergency Provider Emergency Medicine; Family Provider Internal Medicine; PCP Internal Medicine
DX: B37.3 Candidiasis of vulva and vagina (principal); E11.9 Type 2 diabetes mellitus without complications; J44.9 Chronic obstructive pulmonary disease, unspecified; K21.9 Gastro-esophageal reflux disease without esophagitis; I10 Essential (primary) hypertension; E66.01 Morbid (severe) obesity due to excess calories; G82.20 Paraplegia, unspecified; F41.9 Anxiety disorder, unspecified; E78.5 Hyperlipidemia, unspecified; E03.9 Hypothyroidism, unspecified; G44.029 Chronic cluster headache, not intractable; Z79.51 Long term (current) use of inhaled steroids; Z79.899 Other long term (current) drug therapy; Z87.891 Personal history of nicotine dependence
CPT/HCPCS: 82962; 99284; J7030

== ENCOUNTER 2019-08-29 09:47 | Day surgery (SDC) | payer MEDICARE, MEDICAID, SELFPAY ==
[2019-08-29] VITALS (7 sets, daily range): BP systolic 130–146; BP diastolic 78–87; PULSE 77–88; RESP 16–18; TEMP 36.3–36.7; O2SAT 92–98; BMI 39.9
[2019-08-29] MEDS: Lactated Ringers 1,000 ML 100 ML IV (11:20)
--- NOTE | 2019-08-29 11:44 | PCM.HP.STD ---
Problem List (1) Ingrowing toenail Status: Acute History of Present Illness Date of Admission: 08/29/19 Chief Complaint: ingrowing toenail of right hallux The patient is a 59 year old F who complains of chronic ingrowing toenail of right hallux. she presented to my clinic a few weeks ago and we discussed procedure but due to anxiety, she has elected to pursue procedure under sedation. patient does report mild drainage. she has completed antibioitic. she complains of pain. Past Medical History Past Medical History (Chronic Problems): Chronic Problems (Last Updated 02/26/18 @ 16:26 by Kristie Collins) Complex ovarian cyst (Chronic) cea and ca125 ordered Major depressive disorder (Chronic) Anxiety (Chronic) Constipation (Chronic) GERD without esophagitis (Chronic) Chronic cluster headache, not intractable (Chronic) Age-related osteoporosis without current pathological fracture (Chronic) Primary generalized (osteo)arthritis (Chronic) Other intervertebral disc degeneration, lumbar region (Chronic) Hypothyroidism (Chronic) Anemia (Chronic) COPD (chronic obstructive pulmonary disease) (Chronic) Spinal stenosis, lumbar region without neurogenic claudication (Chronic) Neuromuscular scoliosis (Chronic) Chronic low back pain (Chronic) Paraplegia (Chronic) Tobacco use disorder (Chronic) Morbid obesity (Chronic) HTN (hypertension) (Chronic) HLD (hyperlipidemia) (Chronic) Dysthymic disorder (Chronic) Diabetes mellitus type 2, uncontrolled, without complications (Chronic) Chronic Airway Obstruction NEC (Chronic) Medical History: Medical History (Last Updated 02/26/18 @ 16:26 by Kristie Collins) Major depressive disorder (Chronic) F32.9 Anxiety (Chronic) F41.9 Constipation (Chronic) K59.00 GERD without esophagitis (Chronic) K21.9 Chronic cluster headache, not intractable (Chronic) G44.029 Age-related osteoporosis without current pathological fracture (Chronic) M81.0 Primary generalized (osteo)arthritis (Chronic) M15.0 Other intervertebral disc degeneration, lumbar region (Chronic) M51.36 Hypothyroidism (Chronic) E03.9 Anemia (Chronic) D64.9 COPD (chronic obstructive pulmonary disease) (Chronic) J44.9 Muscle weakness (Acute) M62.81 Spinal stenosis, lumbar region without neurogenic claudication (Chronic) M48.061 Neuromuscular scoliosis (Chronic) M41.40 Chronic low back pain (Chronic) M54.5, G89.29 Paraplegia (Chronic) G82.20 Allergies NSAIDS (Non-Steroidal Anti-Inflamma Allergy (Verified 08/29/19 11:11) GASTRIC BYPASS trazodone Adverse Reaction (Verified 08/29/19 11:11) Other migraine Home Medications: Ambulatory Orders Medication Instructions Recorded Levothyroxine Sodium [Levoxyl] 150 mcg PO DAILY 07/29/13 Calcium Citrate/Vitamin D3 1 ea PO BID 04/09/16 [Calcium Citrate-Vit D3 Tablet] Cholecalciferol (VIT D3) [Vitamin 2,000 unit PO QHS 04/09/16 D3] Biotin 1,000 mcg PO DAILY 02/16/18 Cyanocobalamin (Vitamin B-12) 1,000 mcg PO QHS 02/16/18 [Vitamin B-12] Ferrous Gluconate 324 mg PO DAILY 02/16/18 Gabapentin [Neurontin] 600 mg PO BID 02/16/18 Topiramate [Topamax] 25 mg PO BID 02/16/18 [id number] 1 tab PO QDAY 02/26/18 Lorazepam [Ativan] 1 mg PO BID PRN PRN #10 tab 03/30/18 lisinopril 10 mg tablet 20 mg PO QHS 09/18/18 DiphenhydrAMINE [Benadryl] 25 mg PO QHS PRN PRN 12/20/18 Ipratropium/Albuterol Respimat 1 puff INHALATION PRN PRN 12/20/18 [Combivent Respimat Inhal [place]] Oxycodone HCl/Acetaminophen 1 ea PO BID 12/20/18 [Percocet 5-325 mg Tablet] busPIRone [Buspar] 15 mg PO BID 12/20/18 acetaminophen 325 mg tablet 500 mg PO Q6H PRN tab 03/05/19 baclofen 10 mg tablet 10 mg PO Q12H PRN tab 03/05/19 gabapentin 300 mg capsule 900 mg PO QHS cap 03/05/19 meloxicam 15 mg tablet 15 mg PO DAILY tab 03/05/19 pantoprazole 40 mg tablet,delayed 40 mg PO BID tab 03/05/19 release Atorvastatin Calcium [Lipitor] 20 mg PO QHS 08/08/19 Oxycodone Myristate [Xtampza ER] 1 cap PO BID 08/08/19 Surgical History: Surgical History (Last Updated 02/26/18 @ 16:12 by Kristie Collins) D&C H/O gastric bypass Z98.84 History of cholecystectomy Z98.890, Z90.49 Hydradenitis L73.2 removal-multiple S/P arthroscopic knee surgery Z98.890 S/P lumbar spine operation Z98.890 s/p nerve spine surgery s/p upper back surgery skin graft Surgical History: - - Cholecystectomy, bilateral oophorectomy most recently 03/07/18 secondary to complex ovarian cyst with postoperative diagnosis left ovarian dermoid cyst with ventral hernia as well as suprapubic preperitoneal abdominal wall mass with bilateral tubes, ovaries and cytological washings sent, Cristopher-en-Y, right knee arthroscopic surgery, cervical back surgery March 2017, recent lumbar back surgery December 2017. Psychiatric History: Anxiety, Depression [employer] History: - - [employer] surgery 03/07/18 secondary to complex ovarian cyst with postoperative diagnosis left ovarian dermoid cyst with ventral hernia as well as suprapubic preperitoneal abdominal wall mass with bilateral tubes, ovaries and cytological washings sent. Smoking Status: Former smoker - *Family History Maternal Family History: Family History (Last Updated 02/26/18 @ 16:13 by Kristie Collins) Father Diabetes Hypertension Myocardial infarction Alcoholism Brother Myocardial infarction Alcoholism Mother CVA (cerebral vascular accident) History Items: Diabetes, High Cholesterol, Heart Disease, Hypertension Paternal Family History: Family History (Last Updated 02/26/18 @ 16:13 by Kristie Collins) Father Diabetes Hypertension Myocardial infarction Alcoholism Brother Myocardial infarction Alcoholism Mother CVA (cerebral vascular accident) History Items: Diabetes, High Cholesterol, Heart Disease, Hypertension Review of Systems Cardiovascular: Denies: Chest Pain, Palpitations Respiratory: Denies: Cough, Shortness of breath at rest, Sputum production Gastrointestinal: Denies: Abdominal Pain, Nausea, Vomiting VTE Information - Inpt Only VTE Present on Admission: No Objective: patient is alert and orientated x 3. she does not appear in any distress vascular: DP and PT pulses palpable to right foot. CFT is brisk. Skin temperature is warm to warm. pulses audible with doppler derm: the right hallux lateral nail border is ingrowing with pain. mild serous drainage present. there is pain to right hallux lateral nail border. left hallux toenail is dystrophic without ingrown. m/s: no calf pain present - Physical Exam Vitals/I&O's: Vital Signs Temp Pulse Resp BP Pulse Ox 98.1 F 81 16 142/80 H 96 08/29/19 11:13 08/29/19 11:13 08/29/19 11:13 08/29/19 11:13 08/29/19 11:13 Oxygen Delivery Method Room Air Weight: 112.2 kg Body Mass Index (BMI) 39.9 Finger Stick Blood Glucose 130 Current Medications Lactated Ringer's () 1,000 mls @ 100 mls/hr IV .Q10H DONNY Last Admin: 08/29/19 11:20 Dose: 100 mls/hr Documented by: Assessment/Plan All Active Problems (Last Updated 02/26/18 @ 16:26 by Kristie Collins) Cystitis (Acute) Ingrowing toenail (Acute) Muscle weakness (Acute) ingrowing toenail: discussed ingrown toenail of right hallux. plan is to perform total nail matrixectomy of right hallux. I did inform patient that if infection is present, that matrixectomy/phenol may not be as effective. I discussed just doing avulsion. she desires to proceed with matrixectomy and she understands risk that procedure may not be successful. I discussed all risks with patient not limited to infection, pain, swelling, bleeding, recurrent nail, loss of toe. I offered pvr prior to procedure but she elects to proceed. she has palpable and audible pulses. she freely accepts to proceed. Code Visit Office Visits / Consults: [id number] OV L3 [place]
--- NOTE | 2019-08-29 12:02 | PCM.DC.POD ---
Discharge Activity: Return to Normal Activity Weight Bearing Status: Weight bearing as tolerated Call your doctor if your incision/area has: Continuous Slow Oozing, Sudden Increased Bleeding, Increased Pain/ Swelling, Foul Smelling Discharge Call your doctor if you observe: Fever of 101 or Higher, Change in Color Change Dressing in (Days):: 1 - soak toe in soap and water x 10 minutes/day. apply neosporin and band aid to toe Cleanse incision/area with: Soap & Water Allergies/Adverse Reactions: Allergies NSAIDS (Non-Steroidal Anti-Inflamma Allergy (Verified 08/29/19 11:11) GASTRIC BYPASS trazodone Adverse Reaction (Verified 08/29/19 11:11) Other migraine Medications to take at Discharge Levothyroxine Sodium [Levoxyl] 150 mcg PO DAILY 07/29/13 Calcium Citrate/Vitamin D3 [Calcium Citrate-Vit D3 Tablet] 1 ea PO BID 04/09/16 Cholecalciferol (VIT D3) [Vitamin D3] 2,000 unit PO QHS 04/09/16 Biotin 1,000 mcg PO DAILY 02/16/18 Cyanocobalamin (Vitamin B-12) [Vitamin B-12] 1,000 mcg PO QHS 02/16/18 Ferrous Gluconate 324 mg PO DAILY 02/16/18 Gabapentin [Neurontin] 600 mg PO BID 02/16/18 Topiramate [Topamax] 25 mg PO BID 02/16/18 [id number]-[id number] 1 tab PO QDAY 02/26/18 Lorazepam [Ativan] 1 mg PO BID PRN PRN #10 tab 03/30/18 lisinopril 10 mg tablet 20 mg PO QHS 09/18/18 DiphenhydrAMINE [Benadryl] 25 mg PO QHS PRN PRN 12/20/18 Ipratropium/Albuterol Respimat [Combivent Respimat Inhal [place]] 1 puff INHALATION PRN PRN 12/20/18 Oxycodone HCl/Acetaminophen [Percocet 5-325 mg Tablet] 1 ea PO BID 12/20/18 busPIRone [Buspar] 15 mg PO BID 12/20/18 acetaminophen 325 mg tablet 500 mg PO Q6H PRN tab 03/05/19 baclofen 10 mg tablet 10 mg PO Q12H PRN tab 03/05/19 gabapentin 300 mg capsule 900 mg PO QHS cap 03/05/19 meloxicam 15 mg tablet 15 mg PO DAILY tab 03/05/19 pantoprazole 40 mg tablet,delayed release 40 mg PO BID tab 03/05/19 Atorvastatin Calcium [Lipitor] 20 mg PO QHS 08/08/19 Oxycodone Myristate [Xtampza ER] 1 cap PO BID 08/08/19 Primary Care Physician: Kevin Bah MD [Primary Care Provider] - Test Results: Test results from this visit will be discussed in further detail at your follow-up appointment, if applicable.
[2019-08-29] MEDS: Bacitracin 500 UNITS/GM PACKET (12:25)
--- NOTE | 2019-08-30 07:25 | PCM.OPRPT ---
Report of Operation Date of Procedure: 08/29/19 Pre-Operative Diagnosis: ingrowing toenail, right hallux Post-Operative Diagnosis: ingrowing toenail right hallux Surgery/Procedure Performed:: total nail matrixectomy, right hallux Description of Surgical Findings:: significant ingrowing toenail of right hallux with inflammation. mild serous drainage. Type of Anesthesia:: Local MAC Specimen's removed: aerobic and anaerobic wound culture Drains: none Estimated Blood Loss (mL): minimal Description of Procedure: This patient is a 59 year old female who complains of ingrowing toenail of right hallux. she presented to my clinic several weeks ago and had infection of the right hallux due to this ingrowing toenail. At that visit, she was placed on antibiotic and we discussed partial vs total nail avulsion. Patient has fears/anxiety of needles so we elected to pursue total nail removal with matrixectomy once infection subsided and we made plans to do in the hospital under monitored anesthesia care. Since I first met patient, we discussed doing at the hospital but patient had issues getting procedure approved by insurance. She now has received approval and would like to proceed with procedure today. I discussed prior to procedure obtaining pvr. she has declined getting noninvasive vascular testing. She does have hair growth present and does have audible pulses with doppler. I discussed risks of this procedure not limited to infection, pain, swelling, bleeding, recurrent nail formation, loss of toe. patient understands that following procedure, she will need to perform daily wound care and soak the toe in soap and water . all questions have been answered. no guarantees expressed of note, on day or procedure, patient does inform me that the toe has been seeping. I discussed how infection may lower success rates of phenol. I offered avulsion instead but she has elected to proceed with matrixectomy as planned. she does have thickening of left hallux toenail without pain. in future, she could elect for matrixectomy of left hallux. patient was transferred from pre-op holding area to operating room. she was placed under mac anesthesia and then idenfitied by name and procedure. the right hallux was prepped and draped in the usual aseptic technique. a digitial tourniguet was applied to the right hallux . Using a freer elevator, the entire nail was freed and removed. A curette was used to assure no remaining spicule. a culture was then performed. Next, three applications of phenol x 30 seconds was used to perform matrixectomy. The toe was then irrigated with saline. the digital tourniquet was removed. all bleeding had subsided. a post-op dressing consisting of adaptic, bacitracin, remy and coban was applied to the right great toe. Patient was awakened and found to be in stable condition. she will start antibiotic. will call with results. she will f/u in 1 week
== END 2019-08-29 14:45 | disposition home or self-care (01) ==
LOC: SDC 09:48 → AC 09:50
PROVIDERS: Family Provider Internal Medicine; PCP Internal Medicine; Referring Provider Podiatrist Foot & Ankle Surgery; Visit Provider Podiatrist Foot & Ankle Surgery
PROC: (CPT 11750; principal; 2019-08-14 10:45)
DX: L60.0 Ingrowing nail (principal); F32.9 Major depressive disorder, single episode, unspecified; F41.9 Anxiety disorder, unspecified; K21.9 Gastro-esophageal reflux disease without esophagitis; M81.0 Age-related osteoporosis without current pathological fracture; E03.9 Hypothyroidism, unspecified; J44.9 Chronic obstructive pulmonary disease, unspecified; M48.061 Spinal stenosis, lumbar region without neurogenic claudication; M41.40 Neuromuscular scoliosis, site unspecified; G82.20 Paraplegia, unspecified; E66.01 Morbid (severe) obesity due to excess calories; Z68.39 Body mass index [BMI] 39.0-39.9, adult; I10 Essential (primary) hypertension; E78.00 Pure hypercholesterolemia, unspecified; E11.9 Type 2 diabetes mellitus without complications; G44.029 Chronic cluster headache, not intractable; M15.0 Primary generalized (osteo)arthritis; K59.00 Constipation, unspecified; M51.36 Other intervertebral disc degeneration, lumbar region; L73.2 Hidradenitis suppurativa; G25.81 Restless legs syndrome; Z86.2 Personal history of diseases of the blood and blood-forming organs and certain disorders involving the immune mechanism; Z78.0 Asymptomatic menopausal state; Z79.899 Other long term (current) drug therapy; Z87.891 Personal history of nicotine dependence
CPT/HCPCS: 11750; 87070; 87075; 87077; 87186; 87205; J7120

== ENCOUNTER → 2019-09-03 13:20 | Outpatient (CLI) | payer MEDICARE, MEDICAID, SELFPAY ==
[2019-08-29 11:13] VITALS: BMI 39.9
--- NOTE | 2019-09-03 13:21 | RAD_ITS ---
STUDY: Cervical Thoracolumbar Spine REASON FOR EXAM: Female, 59 years old. Back pain VIEWS: AP and lateral views of the cervical, thoracic, and lumbar spine COMPARISON: No relevant priors. FINDINGS: There is postoperative change from posterior spinal fusion from T4 to S1 with bilateral posterior fusion rods, multilevel intrapedicular screws, and bilateral sacroiliac joint fixation screws. There is no discontinuity of the posterior fusion rods. No periinstrumentation lucency surrounding the interpedicular screws. Thoracic spine demonstrates normal kyphosis, and the lumbar spine demonstrates a normal lordosis. There is mild grade 1 on L3 on L4 anterolisthesis. There is no significant scoliosis. There is no vertebral body fracture. There is no vertebral segmental anomaly. There is postoperative change from vertebral augmentation at T12 and L1. There is extension of methylmethacrylate into the spinal canal posterior to L1. There is mild endplate change and spur formation noted within the intervertebral disc spaces throughout the thoracolumbar spine. There is moderate degenerative change of the facet joints at all 3 additional 4, L4/L5 and L5-S1. Visualized ribs are unremarkable. No paraspinal soft tissue densities. Visualized lungs are clear. Intra-abdominal vascular calcifications are noted. RAD/Scoliosis 2 or 3 views IMPRESSION: 1. Postoperative change from T4-S1 posterior spinal fusion with no evidence of instrumentation failure. 2. Mild to moderate multilevel degenerative disc disease throughout the entire spine. 3. Postoperative change from vertebral augmentation at T12 and L1 with epidural extension of methylmethacrylate into the spinal canal at the L1 level. Electronically Signed: Ge Kern MD at 4:10 EST Tel , Service support ,
== END ==
PROVIDERS: PCP Internal Medicine; Referring Provider Orthopaedic Surgery; Visit Provider Orthopaedic Surgery
DX: M54.5 Low back pain (principal); G89.29 Other chronic pain
CPT/HCPCS: 72082

== ENCOUNTER 2019-10-18 05:55 | Inpatient (IN) | payer MEDICARE, MEDICAID, SELFPAY ==
[2019-09-03 20:54] VITALS: BMI 39.9
[2019-10-18] VITALS (25 sets, daily range): BP systolic 95–155; BP diastolic 46–77; PULSE 69–116; RESP 11–22; TEMP 35.9–39.5; O2SAT 89–97; BMI 40.5; BMI 39.2; BMI 40.6
--- NOTE | 2019-10-18 06:05 | RAD_ITS ---
HISTORY: patient having fever, frquent urination, and cough ADDITIONAL HISTORY: None provided. TECHNIQUE: Frontal chest radiograph. Number of images including paperwork: 1 COMPARISON: 09/13/2014 FINDINGS: LUNGS AND PLEURA: Bibasilar predominantly linear linear opacities, decreased on the right and increased on the left. No dense consolidation. CARDIAC SILHOUETTE: Stable. MEDIASTINUM AND JOSS: Stable. UPPER ABDOMEN: Unremarkable. SKELETON AND SOFT TISSUES: No acute findings. OTHER DEVICES AND HARDWARE: None. RAD/Chest 1 View (Portable) IMPRESSION: Bibasilar opacities suggestive of atelectasis. Early/mild pneumonia at the left base as possible. at 0647 Reported and signed by: Josefina Padgett MD Electronically Signed: Josefina Padgett MD at 6:46 EDT Tel , Service support ,
--- NOTE | 2019-10-18 06:06 | EKG12_ITS ---
Test Reason : COUGH Blood Pressure : / mmHG Vent. Rate : 103 BPM Atrial Rate : 103 BPM P-R Int : 134 ms QRS Dur : 082 ms QT Int : 336 ms P-R-T Axes : 063 065 042 degrees QTc Int : 440 ms Sinus tachycardia Otherwise normal ECG Confirmed by PORTIA RODAS ([id number]), magazine editor NOLAN DE PAZ ([id number]) on 10/21/2019 1:07:03 PM Referred By: DALIA Confirmed By:PORTIA RODAS
--- NOTE | 2019-10-18 06:20 | ED.DCSUM_ITS ---
- ER Visit Summary Date of Service: 10/18/19 Chief Complaint: [Fever and cough] History of Present Illness: The patient is a 59 F [presents to the emergency department with cough for about a week. She is had fever that became more severe last evening up to 105 at home. Patient complains of body aches. She complains of urinary frequency. She denies recent travel. Patient is a paraplegic. Patient has not had any exposures to patients with novel coronavirus as far she knows. Patient states that her daughter had an upper respiratory infection couple of weeks ago but that she is better since. Patient has history of diabetes, hypertension, high cholesterol, GERD, depression, anxiety. Patient is not on home oxygen. Patient took a dose of Tylenol around 3 AM.] Physical Examination: [HEENT-PERRLA, EOMI. Cranial nerves II through XII grossly intact. TMs clear. Mucous membranes moist. No adenopathy. Cardiovascular-regular and tachycardic. No murmurs auscultated. Lungs-good aeration bilaterally. Patient has coarse breath sounds bilaterally. Few faint rales noted in the bases bilaterally. No accessory muscle use or retractions. Abdomen-normoactive bowel sounds, soft, nontender, no rebound or rigidity, no peritoneal signs. Extremities-intact ?4, normal range of motion, normal pulses, atraumatic. No rashes.] Test Results: [CBC with differential showed a white count 4.6, hemoglobin 11.9, hematocrit 37, platelets 111. Chemistries pending. Lactate was elevated 2.6. Urinalysis was positive for 500 cassette esterase as well as 25-50 WBCs and 10- 25 RBCs. Patient had rare bacteria. Influenza was negative. RSV was negative. Chest x-ray showed bibasilar opacities and questionable pneumonia left base.] Emergency Department Course and Treatment: [Blood cultures ordered. Urine cultures ordered. Respiratory panel ordered and pending. Patient was started on Rocephin and Zithromax IV. Patient was given a liter normal same fluid bolus.] Treatment Plan: [Admit. I cannot rule out novel coronavirus as the etiology of her respiratory symptoms.] Disposition: [Admit] Impression: [Pneumonia UTI Hypoxemia Sepsis] This note was generated with [employer] software. It may contain incorrect words, spelling, and punctuation that were not noted in review of the chart prior to signing ED Disposition - Plan for ED Patient: Referrals: Kevin Bah MD [Primary Care Provider] -
[2019-10-18 06:31] LABS: Mucous, Urine 0 SEEN /hpf (<or=2+)
[2019-10-18 06:32] LABS: Color, Urine Yellow (Yellow); Glucose, Dipstick 50 mg/dl (Normal); Ketone-Dipstick Negative (Negative); Leukocyte Esterase-Dipstick 500 /ul (Negative); Nitrite-Dipstick Negative (Negative); Occult Blood-Urine 10 /ul (Negative); Protein-Dipstick 30 mg/dl (Negative); Urine Clarity Sl. Cloudy (Clear); Urine Urobilinogen 1 mg/dl (Normal)
[2019-10-18 06:34] LABS: Absolute Lymphocyte Count 0.73 X10^3/uL (0.83-4.51); Absolute Neutrophil Count 3.5 X10^3/uL (2.0-7.7); Basophil# 0.02 X10^3/uL; Basophil% 0.4 % (0-1); Eosinophil# 0.06 X10^3/uL; Eosinophils% 1.3 % (0-5); Hematocrit 37.4 % (37-47); Hemoglobin 11.9 g/dL (12.0-15.0); Lymphocyte # 0.73 X10^3/ul (4.0); Lymphocyte % 15.8 % (19-41); Mean Corp Hgb Conc 31.8 g/dL (32-36); Mean Corpuscular Hgb 28.5 pg (27.0-32.0); Mean Corpuscular Volume 89.7 fL (81-99); Mean Platelet Vol. 11.4 fl (6.2-12.0); Monocyte# 0.25 X10^3/uL; Monocyte% 5.4 % (0-10); NRBC Flagged by Analyzer 0 % (0-5); Neutrophil # 3.52 X10^3/uL (2.7-7.7); Neutrophil % 76.4 % (47-70); Platelet Count 111 K/mm3 (150-450); RBC Distribution Width CV 15.1 % (11.6-14.6); RBC Distribution Width SD 48.8 fl (35.1-43.9); Red Blood Count 4.17 M/mm3 (4.2-5.4); White Blood Count 4.6 K/mm3 (4.4-11.0)
[2019-10-18] MEDS: 0.9% Normal Saline 1,000 ML 1000 ML IV (06:37)
[2019-10-18 06:39] LABS: Urine Bilirubin Dipstick 1 mg/dL (Negative)
[2019-10-18 06:41] LABS: White Blood Cells 25-50 SEEN /hpf (0-5)
[2019-10-18 06:42] LABS: Bacteria RARE /hpf (None Seen); Red Blood Cells-Urine 10-25 SEEN /hpf (0-5); Squamous Epithelial Cells - UA 0-5 SEEN /hpf (5-10); Transitional Epithelial - Ur 0-5 SEEN /hpf (0-5)
[2019-10-18 07:00] LABS: Lactic Acid 2.6 mmol/L (0.4-1.9)
[2019-10-18] MEDS: 0.9% Normal Saline 1,000 ML 150 ML IV ×4 (07:25→22:39)
[2019-10-18] MEDS: Ceftriaxone 1 GM/50 ML BAG IV (07:26)
--- NOTE | 2019-10-18 08:04 | PCM.HP.STD ---
Problem List (1) Urinary frequency Status: Acute (2) Nonproductive cough Status: Acute (3) Fever and chills Status: Acute History of Present Illness Date of Admission: 10/18/19 Chief Complaint: Nonproductive cough, fever and chills, urinary frequency The patient is a 59 year old F who was seen in the emergency room at [facility] with a chief complaint of fever and chills, nonproductive cough, and urinary frequency. Patient states her daughter who she was in contact with had an upper respiratory infection last week, a few days ago she was coughing frequently but now her cough has diminished. Patient denies any purulent sputum production, she does complain of fever and chills, she is complained of urinary frequency. 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 Patient also has a history of COPD according to her medical records-patient states that she was given this diagnosis while she was smoking but since she is quit smoking, her PCP is told her she does not have COPD. Patient does not wear oxygen at home. Work-up in the emergency room included a CBC which showed a normal white blood cell count and hemoglobin of 11.9, patient's lactic acid was elevated at 2.6, patient's temperature in the emergency room was 103.1., Patient's pulse ox on room air was 89%, and her urinalysis showed 10-25 RBCs and 25-50 WBCs with rare bacteria. Patient's chest x-ray showed an area of atelectasis at the left lung base-I personally reviewed this chest x-ray and I feel this is only atelectasis and not a probable pneumonic infiltrate. On examination, patient had expiratory wheezes bilaterally but did not appear short of breath, she was not coughing when I examined her. Patient's blood chemistry at this time is pending, respiratory panel is pending. Patient's rapid RSV was negative. Patient's influenza test was negative. Will be admitted for severe sepsis secondary to UTI, I feel she probably has an exacerbation of COPD-respiratory panel was ordered and is pending again. I discussed this case with intensive care physician. My suspicion for coronavirus in this patient is low. Patient was given Rocephin and Zithromax in the emergency room, I will leave her on this combination for now. Past Medical History Past Medical History (Chronic Problems): Chronic Problems (Last Updated 10/18/19 @ 08:[address] Bret Kevin, DO) Complex ovarian cyst (Chronic) cea and ca125 ordered Major depressive disorder (Chronic) Anxiety (Chronic) Constipation (Chronic) GERD without esophagitis (Chronic) Chronic cluster headache, not intractable (Chronic) Age-related osteoporosis without current pathological fracture (Chronic) Primary generalized (osteo)arthritis (Chronic) Other intervertebral disc degeneration, lumbar region (Chronic) Hypothyroidism (Chronic) Anemia (Chronic) COPD (chronic obstructive pulmonary disease) (Chronic) Muscle weakness (Chronic) Spinal stenosis, lumbar region without neurogenic claudication (Chronic) Neuromuscular scoliosis (Chronic) Chronic low back pain (Chronic) Paraplegia (Chronic) Tobacco use disorder (Chronic) Morbid obesity (Chronic) HTN (hypertension) (Chronic) HLD (hyperlipidemia) (Chronic) Dysthymic disorder (Chronic) Diabetes mellitus type 2, uncontrolled, without complications (Chronic) Chronic Airway Obstruction NEC (Chronic) Medical History: Medical History (Last Updated 10/18/19 @ 08:[address] Bret Kevin, DO) Major depressive disorder (Chronic) F32.9 Anxiety (Chronic) F41.9 Constipation (Chronic) K59.00 GERD without esophagitis (Chronic) K21.9 Chronic cluster headache, not intractable (Chronic) G44.029 Age-related osteoporosis without current pathological fracture (Chronic) M81.0 Primary generalized (osteo)arthritis (Chronic) M15.0 Other intervertebral disc degeneration, lumbar region (Chronic) M51.36 Hypothyroidism (Chronic) E03.9 Anemia (Chronic) D64.9 COPD (chronic obstructive pulmonary disease) (Chronic) J44.9 Muscle weakness (Chronic) M62.81 Spinal stenosis, lumbar region without neurogenic claudication (Chronic) M48.061 Neuromuscular scoliosis (Chronic) M41.40 Chronic low back pain (Chronic) M54.5, G89.29 Paraplegia (Chronic) G82.20 Allergies NSAIDS (Non-Steroidal Anti-Inflamma Allergy (Verified 10/18/19 06:03) GASTRIC BYPASS trazodone Adverse Reaction (Verified 10/18/19 06:03) Other migraine Home Medications: Ambulatory Orders Medication Instructions Recorded Levothyroxine Sodium [Levoxyl] 150 mcg PO DAILY 07/29/13 Calcium Citrate/Vitamin D3 1 ea PO BID 04/09/16 [Calcium Citrate-Vit D3 Tablet] Cholecalciferol (VIT D3) [Vitamin 2,000 unit PO QHS 04/09/16 D3] Biotin 10,000 mcg PO DAILY 02/16/18 Cyanocobalamin (Vitamin B-12) 1,000 mcg PO QHS 02/16/18 [Vitamin B-12] Ferrous Gluconate 65 mg PO DAILY 02/16/18 Gabapentin [Neurontin] 600 mg PO BID 02/16/18 Topiramate [Topamax] 25 mg PO BID 02/16/18 tonmexzaakib-csuhlgou-hakquz 1 tab PO QDAY 02/26/18 Lorazepam [Ativan] 1 mg PO BID PRN PRN #10 tab 03/30/18 lisinopril 10 mg tablet 20 mg PO QHS 09/18/18 Ipratropium/Albuterol Respimat 1 puff INHALATION Q6H PRN PRN 12/20/18 [Combivent Respimat Inhal [place]] Oxycodone HCl/Acetaminophen 1 ea PO BID PRN PRN 12/20/18 [Percocet 5-325 mg Tablet] busPIRone [Buspar] 15 mg PO TID 12/20/18 acetaminophen 325 mg tablet 500 mg PO Q6H PRN tab 03/05/19 baclofen 10 mg tablet 10 mg PO Q6H PRN PRN tab 03/05/19 gabapentin 300 mg capsule 900 mg PO QHS cap 03/05/19 meloxicam 15 mg tablet 15 mg PO DAILY tab 03/05/19 pantoprazole 40 mg tablet,delayed 40 mg PO BID tab 03/05/19 release Atorvastatin Calcium [Lipitor] 20 mg PO QHS 08/08/19 Betamethasone Valerate [Valisone 1 applic TOPICAL BID 10/18/19 0.1% Cream ([facility])] Metformin HCl [Metformin HCl ER] 500 mg PO DAILY 10/18/19 Oxycodone Myristate [Xtampza ER] 27 mg PO BID 10/18/19 Polyethylene Glycol 3350 17 gm PO DAILY 10/18/19 Surgical History: Surgical History (Last Updated 02/26/18 @ 16:12 by Kristie Collins) D&C H/O gastric bypass Z98.84 History of cholecystectomy Z98.890, Z90.49 Hydradenitis L73.2 removal-multiple S/P arthroscopic knee surgery Z98.890 S/P lumbar spine operation Z98.890 s/p nerve spine surgery s/p upper back surgery skin graft Surgical History: - - Cholecystectomy, bilateral oophorectomy most recently 03/07/18 secondary to complex ovarian cyst with postoperative diagnosis left ovarian dermoid cyst with ventral hernia as well as suprapubic preperitoneal abdominal wall mass with bilateral tubes, ovaries and cytological washings sent, Cristopher-en-Y, right knee arthroscopic surgery, cervical back surgery March 2017, recent lumbar back surgery December 2017. 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 Lives: With Family Smoking Status: Former smoker Tobacco Use: Non-smoker Alcohol: None Drugs: None - *Family History Maternal Family History: Family History (Last Updated 02/26/18 @ 16:13 by Kristie Collins) Father Diabetes Hypertension Myocardial infarction Alcoholism Brother Myocardial infarction Alcoholism Mother CVA (cerebral vascular accident) History Items: Diabetes, High Cholesterol, Heart Disease, Hypertension Paternal Family History: Family History (Last Updated 02/26/18 @ 16:13 by Kristie Collins) Father Diabetes Hypertension Myocardial infarction Alcoholism Brother Myocardial infarction Alcoholism Mother CVA (cerebral vascular accident) History Items: Diabetes, High Cholesterol, Heart Disease, Hypertension Review of Systems Constitutional: Reports: Chills, Fever. Denies: Anorexia, Night Sweats, Weakness, Weight Change Eyes: Denies: Cataracts, Conjunctivae Inflammation, Double vision, Drainage HEENT: Denies: Difficulty Swallowing, Dysphasia, Ear Pain, Eye Pain, Hearing Changes, Nasal bleeding, Nasal Congestion, Post Nasal Drip Cardiovascular: Denies: Chest Pain, Claudication, Chest Pressure, Chest Tightness, Edema, Orthopnea, Palpitations Respiratory: Reports: Cough, Shortness of Breath, Shortness of breath upon exertion. Denies: Hemoptysis, Shortness of breath at rest Gastrointestinal: Denies: Abdominal Pain, Constipation, Diarrhea, Hematemesis, Hematochezia, Nausea, Melena, Vomiting Genitourinary: Reports: Frequency. Denies: Dysuria, Hematuria, Hesitancy, Nocturia, Retention, Urgency Gynecological: Denies: Breast symptoms Musculoskeletal: Reports: Back Pain - Chronic back and neck pain. Denies: Foot Pain, Hand Pain, Joint Pain, Joint stiffness, Joint swelling, Joint Tenderness, Leg Pain Skin: Denies: Dryness, Pruritis, Rash Neurological: Reports: - - Patient is paraplegic. Denies: Blurred vision, Double vision, Slurred speech, Difficulty swallowing, Focal weakness, Headaches, Incoordination, Numbness, Tingling Psychiatric: Reports: Depression - History of chronic depression. Denies: Anxiety, Homicidal Ideations, Suicidal Ideations Endocrine: Denies: Change in Body Habitus, Heat/ Cold Intolerance, Polydipsia, Polyuria Hematologic/ Lymphatic: Denies: Adenopathy, Anemia, Easy Bruising, Easy Bleeding, Petechiae, Purpura VTE Information - Inpt Only VTE Present on Admission: No VTE Mechan Device Prophylaxis: None VTE Pharm Prophylaxis ordered?: Yes Patient Problems: Active and Suspected Problems (Last Updated 10/18/19 @ 08:[address] Bret Kevin, DO) Urinary frequency (Acute) Nonproductive cough (Acute) Fever and chills (Acute) - Physical Exam Vitals/I&O's: Vital Signs Temp Pulse Resp BP Pulse Ox 100.3 F H 106 H 16 149/64 H 95 10/18/19 06:36 10/18/19 06:36 10/18/19 06:36 10/18/19 06:36 10/18/19 06:36 Oxygen Flow Rate (L/min) 2 Oxygen Delivery Method Nasal Cannula Weight: 114 kg Body Mass Index (BMI) 40.5 Finger Stick Blood Glucose 130 General: Alert, Oriented x3, Cooperative, No apparent distress, Well developed HEENT: Atraumatic, PERRLA, EOMI, Normocephalic Oral: Moist Mucosa Neck: Supple, No JVD, Negative Carotid Bruits, Trachea Midline, Thyroid Normal Size and Texture Lungs: Normal air movement, Wheezes - Expiratory wheezes are scattered bilaterally Cardiovascular: Regular rate, Regular Rhythm, Normal S1, Normal S2, No murmurs, PMI Normal, No rub noted Abdomen: Bowel Sounds Present, Soft, Non Tender, Non-Distended, Obese, No hernias noted Extremities: No clubbing, No cyanosis, No edema, Capillary Refill Less than 3 Seconds Skin: No rashes, No breakdown Musculoskeletal: No Tenderness to Palpation of Joints or Extremities Neurological: Cranial nerves II-XII grossly intact, Neuro grossly intact, Sensory exam intact to light touch and pain Psych/Mental Status: Normal Affect, Appropriate, Alert and oriented to time, place, person, mood and affect Microbiology Past 72 Hours 10/18/19 06:30 Nasal Secretion Rapid RSV (DFA) - Final 10/18/19 06:30 Mucosa - Nasopharyngeal Influenza Types A,B Direct FA (JOIE) - Final Laboratory Results 10/18/19 06:15: WBC 4.6, RBC 4.17 L, Hgb 11.9 L, Hct 37.4, MCV 89.7, MCH 28.5, MCHC 31.8 L, RDW Std Deviation 48.8 H, RDW Coeff of Jarrod 15.1 H, Plt Count 111 L, MPV 11.4, Immature Gran % (Auto) 0.700, Neut % (Auto) 76.4 H, Lymph % (Auto) 15.8 L, [place] % (Auto) 5.4, Eos % (Auto) 1.3, Baso % (Auto) 0.4, Absolute Neuts (auto) 3.5, Absolute Lymphs (auto) 0.73 L, Nucleated RBC % 0 10/18/19 06:15: Sodium Cancelled, Potassium Cancelled, Chloride Cancelled, Carbon Dioxide Cancelled, Anion Gap Cancelled, BUN Cancelled, Creatinine Cancelled, Estim Creat Clear Calc Cancelled, Est GFR (MDRD) Af Amer Cancelled, Est GFR (MDRD) Non-Af Cancelled, BUN/Creatinine Ratio Cancelled, Glucose Cancelled, Calcium Cancelled, Total Bilirubin Cancelled, AST Cancelled, ALT Cancelled, Alkaline Phosphatase Cancelled, Total Protein Cancelled, Albumin Cancelled, Globulin Cancelled, Albumin/Globulin Ratio Cancelled 10/18/19 06:15: Lactic Acid 2.6 H* 10/18/19 06:25: Urine Color Yellow, Urine Clarity Sl. Cloudy, Urine pH 5.0, Ur Specific [place] 1.020, Urine Protein 30 H, Urine Glucose (UA) 50 H, Urine Ketones Negative, Urine Occult Blood 10 H, Urine Nitrite Negative, Urine Bilirubin 1 H, Urine Urobilinogen 1 H, Ur Leukocyte Esterase 500 H, Urine RBC 10-25 SEEN, Urine WBC 25-50 SEEN, Ur Squamous Epith Cells 0-5 SEEN, Ur Transition Epith Cell 0-5 SEEN, Urine Bacteria RARE, Urine Mucus 0 SEEN 10/18/19 07:20: Sodium Pending, Potassium Pending, Chloride Pending, Carbon Dioxide Pending, Anion Gap Pending, BUN Pending, Creatinine Pending, Est GFR (MDRD) Af Amer Pending, Est GFR (MDRD) Non-Af Pending, BUN/Creatinine Ratio Pending, Glucose Pending, Calcium Pending, Total Bilirubin Pending, AST Pending, ALT Pending, Alkaline Phosphatase Pending, Total Protein Pending, Albumin Pending Current Medications Sodium Chloride () 1,000 mls @ 150 mls/hr IV .[id number] DONNY Last Admin: 10/18/19 07:25 Dose: 150 mls/hr Documented by: Assessment/Plan All Active Problems (Last Updated 10/18/19 @ 08:[address] Bret Kevin, DO) Cystitis (Acute) Ingrowing toenail (Resolved) Urinary frequency (Acute) Nonproductive cough (Acute) Fever and chills (Acute) #1 severe sepsis secondary to acute urinary tract infection-secondary to gram negative bacteria-patient will remain on Rocephin, urine cultures were obtained, blood cultures were obtained. #2 acute urinary tract infection #3 upper respiratory tract infection versus exacerbation of COPD-respiratory panel was ordered, I do not feel the patient has coronavirus, she will be in droplet precautions, DuoNeb aerosols were ordered #4 probable chronic obstructive pulmonary disease-DuoNeb aerosols were ordered, I have elected to keep the patient on Zithromax #5 type 2 diabetes-blood sugars will be monitored #6 paraplegia secondary to failed back surgery #7 degenerative disc disease of the cervical and lumbar spine #8 class III obesity #9 chronic depression #10 osteoarthritis Chemistry profile is pending Inpatient E&M: 51722 Init Hosp L3
[2019-10-18 08:20] LABS: ALB/GLOB Ratio 0.9 RATIO (0.9-2.4); AST(SGOT) 20 U/L (15-37); Alanine Aminotransfer ALT/SGPT 24 U/L (13-56); Albumin, Serum 2.9 g/dL (3.2-5.0); Alkaline Phosphatase 88 U/L (45-117); Anion Gap 9 (5-15); BUN 27 mg/dL (7-18); BUN/Creat Ratio 23.5 RATIO (10-20); Calcium,Total 8.4 mg/dL (8.5-10.1); Chloride 112 mmol/L (98-107); Creatinine, Serum 1.15 mg/dL (0.55-1.02); EST Glomerular Filtration Rate 51 mL/min (>60); Est Glom Filt Rate - Afr Amer 62 mL/min (>60); Estimated Creatinine Clearance 49.92 ml/min; Globulin 3.4 g/dL (2.2-4.2); Glucose 291 mg/dL (74-106); Potassium 4.2 mmol/L (3.5-5.1); Protein, Total 6.3 g/dL (6.4-8.2); Sodium Level 142 mmol/L (136-145)
[2019-10-18 10:27] LABS: Reflex Lactate? Y
--- NOTE | 2019-10-18 10:33 | CON.PCM_ITS ---
Reason for Consult Date of Consultation: 10/18/19 Reason for Consultation: Severe sepsis History of Present Illness: The patient is a 59-year-old female, with a history as outlined below, who presented to the emergency department on October 17 with complaints of subjective fever, myalgias and cough. The patient does report a previous smoking history, having quit completely 7 years ago. She currently only utilizes as needed albuterol during the spring months for seasonal allergies. The patient is without complaints of shortness of breath at the current time. She does report that she was evaluated for CAESAR in the past and was told that the did not need to be on nocturnal pap therapy. She denies any known sick contact exposure or recent travel. On presentation to the emergency department, the patient was noted to be febrile with a temperature of 103.1 ?F. She was tachycardic and tachypneic as well. Laboratory evaluation revealed no evidence of a leukocytosis. Chemistry profile was notable for an elevated creatinine of 1.15. Lactate was elevated to 2.6. Plain film chest x-ray on my review revealed some possible streaky atelectasis in the left lung base without focal infiltrate, consolidation or groundglass changes. Respiratory viral panel was found to be positive for human metapneumovirus. The patient received supplemental IV fluid hydration and was placed on antimicrobial therapy. She was subsequently admitted to the medical intensive care unit for management of her severe sepsis. Past Medical History Past Medical History (Chronic Problems): Chronic Problems (Last Updated 10/18/19 @ 08:[address] Bret Kevin, DO) Complex ovarian cyst (Chronic) cea and ca125 ordered Major depressive disorder (Chronic) Anxiety (Chronic) Constipation (Chronic) GERD without esophagitis (Chronic) Chronic cluster headache, not intractable (Chronic) Age-related osteoporosis without current pathological fracture (Chronic) Primary generalized (osteo)arthritis (Chronic) Other intervertebral disc degeneration, lumbar region (Chronic) Hypothyroidism (Chronic) Anemia (Chronic) COPD (chronic obstructive pulmonary disease) (Chronic) Muscle weakness (Chronic) Spinal stenosis, lumbar region without neurogenic claudication (Chronic) Neuromuscular scoliosis (Chronic) Chronic low back pain (Chronic) Paraplegia (Chronic) Tobacco use disorder (Chronic) Morbid obesity (Chronic) HTN (hypertension) (Chronic) HLD (hyperlipidemia) (Chronic) Dysthymic disorder (Chronic) Diabetes mellitus type 2, uncontrolled, without complications (Chronic) Chronic Airway Obstruction NEC (Chronic) Medical History: Medical History (Last Updated 10/18/19 @ 08:[address] Bret Kevin, DO) Major depressive disorder (Chronic) F32.9 Anxiety (Chronic) F41.9 Constipation (Chronic) K59.00 GERD without esophagitis (Chronic) K21.9 Chronic cluster headache, not intractable (Chronic) G44.029 Age-related osteoporosis without current pathological fracture (Chronic) M81.0 Primary generalized (osteo)arthritis (Chronic) M15.0 Other intervertebral disc degeneration, lumbar region (Chronic) M51.36 Hypothyroidism (Chronic) E03.9 Anemia (Chronic) D64.9 COPD (chronic obstructive pulmonary disease) (Chronic) J44.9 Muscle weakness (Chronic) M62.81 Spinal stenosis, lumbar region without neurogenic claudication (Chronic) M48.061 Neuromuscular scoliosis (Chronic) M41.40 Chronic low back pain (Chronic) M54.5, G89.29 Paraplegia (Chronic) G82.20 Allergies NSAIDS (Non-Steroidal Anti-Inflamma Allergy (Verified 10/18/19 06:03) GASTRIC BYPASS trazodone Adverse Reaction (Verified 10/18/19 06:03) Other migraine Home Medications: Ambulatory Orders Medication Instructions Recorded Levothyroxine Sodium [Levoxyl] 150 mcg PO DAILY 07/29/13 Calcium Citrate/Vitamin D3 1 ea PO BID 04/09/16 [Calcium Citrate-Vit D3 Tablet] Cholecalciferol (VIT D3) [Vitamin 2,000 unit PO QHS 04/09/16 D3] Biotin 10,000 mcg PO DAILY 02/16/18 Cyanocobalamin (Vitamin B-12) 1,000 mcg PO QHS 02/16/18 [Vitamin B-12] Ferrous Gluconate 65 mg PO DAILY 02/16/18 Gabapentin [Neurontin] 600 mg PO BID 02/16/18 Topiramate [Topamax] 25 mg PO BID 02/16/18 [id number] 1 tab PO QDAY 02/26/18 Lorazepam [Ativan] 1 mg PO BID PRN PRN #10 tab 03/30/18 lisinopril 10 mg tablet 20 mg PO QHS 09/18/18 Ipratropium/Albuterol Respimat 1 puff INHALATION Q6H PRN PRN 12/20/18 [Combivent Respimat Inhal [place]] Oxycodone HCl/Acetaminophen 1 ea PO BID PRN PRN 12/20/18 [Percocet 5-325 mg Tablet] busPIRone [Buspar] 15 mg PO TID 12/20/18 acetaminophen 325 mg tablet 500 mg PO Q6H PRN tab 03/05/19 baclofen 10 mg tablet 10 mg PO Q6H PRN PRN tab 03/05/19 gabapentin 300 mg capsule 900 mg PO QHS cap 03/05/19 meloxicam 15 mg tablet 15 mg PO DAILY tab 03/05/19 pantoprazole 40 mg tablet,delayed 40 mg PO BID tab 03/05/19 release Atorvastatin Calcium [Lipitor] 20 mg PO QHS 08/08/19 Betamethasone Valerate [Valisone 1 applic TOPICAL BID 10/18/19 0.1% Cream (BKC)] Metformin HCl [Metformin HCl ER] 500 mg PO DAILY 10/18/19 Oxycodone Myristate [Xtampza ER] 27 mg PO BID 10/18/19 Polyethylene Glycol 3350 17 gm PO DAILY 10/18/19 Surgical History: Surgical History (Last Updated 02/26/18 @ 16:12 by Kristie Collins) D&C H/O gastric bypass Z98.84 History of cholecystectomy Z98.890, Z90.49 Hydradenitis L73.2 removal-multiple S/P arthroscopic knee surgery Z98.890 S/P lumbar spine operation Z98.890 s/p nerve spine surgery s/p upper back surgery skin graft Surgical History: - - Cholecystectomy, bilateral oophorectomy most recently 03/07/18 secondary to complex ovarian cyst with postoperative diagnosis left ovar angelique dermoid cyst with ventral hernia as well as suprapubic preperitoneal abdominal wall mass with bilateral tubes, ovaries and cytological washings sent, Cristopher-en-Y, right knee arthroscopic surgery, cervical back surgery March 2017, recent lumbar back surgery December 2017. Psychiatric History: Anxiety, Depression [employer] History: - - Key Holder surgery 03/07/18 secondary to complex ovarian cyst with postoperative diagnosis left ovarian dermoid cyst with ventral hernia as well as suprapubic preperitoneal abdominal wall mass with bilateral tubes, ovaries and cytological washings sent. Lives: With Family Smoking Status: Former smoker Tobacco Use: Non-smoker Alcohol: None Drugs: None - *Family History Maternal Family History: Family History (Last Updated 02/26/18 @ 16:13 by Kristie Collins) Father Diabetes Hypertension Myocardial infarction Alcoholism Brother Myocardial infarction Alcoholism Mother CVA (cerebral vascular accident) History Items: Diabetes, High Cholesterol, Heart Disease, Hypertension Paternal Family History: Family History (Last Updated 02/26/18 @ 16:13 by Kristie Collins) Father Diabetes Hypertension Myocardial infarction Alcoholism Brother Myocardial infarction Alcoholism Mother CVA (cerebral vascular accident) History Items: Diabetes, High Cholesterol, Heart Disease, Hypertension Review of Systems Constitutional: Reports: Chills, Fever, Malaise, Fatigue Eyes: Denies: Blurred vision, Double vision HEENT: Denies: Head Aches, Sinus Congestion, Sinus Drainage Cardiovascular: Denies: Chest Pain, Palpitations Respiratory: Reports: Cough. Denies: Shortness of Breath, Sputum production Gastrointestinal: Denies: Abdominal Pain, Nausea, Vomiting Genitourinary: Denies: Dysuria Musculoskeletal: Reports: Muscle pain Skin: Denies: Rash, Wounds Neurological: Denies: Numbness, Tingling, Focal weakness Psychiatric: Denies: Anxiety, Depression, Homicidal Ideations, Suicidal Ideations Hematologic/ Lymphatic: Denies: Easy Bruising, Easy Bleeding Patient Problems: Active and Suspected Problems (Last Updated 10/18/19 @ 08:[address] Bret Kevin, DO) Urinary frequency (Acute) Nonproductive cough (Acute) Fever and chills (Acute) Objective: The patient's most recent lab work, culture data and imaging studies have all been personally reviewed. - Physical Exam Vitals/I&O's: Vital Signs Temp Pulse Resp BP Pulse Ox 98.6 F 82 15 125/73 H 97 10/18/19 09:07 10/18/19 09:07 10/18/19 09:07 10/18/19 09:07 10/18/19 09:07 Oxygen Flow Rate (L/min) 2 Oxygen Delivery Method Nasal Cannula Weight: 251 lb 5.231 oz Body Mass Index (BMI) 40.5 Finger Stick Blood Glucose 130 Intake and Output for Last 24 Hours 10/16/19 10/17/19 10/18/19 23:59 23:59 23:59 Intake Total 1050 / 1050 Balance 1050 / 1050 General: Alert, Oriented x3, Cooperative, No apparent distress HEENT: Atraumatic, PERRLA, Normocephalic Oral: No Gingival or Mucosal Lesions/ Ulcerations Neck: Supple, No Nodes, Trachea Midline Lungs: No rhonchi, No rales, Diminished, Wheezes Cardiovascular: Regular rate, Regular Rhythm, Normal S1, Normal S2, No murmurs Abdomen: Bowel Sounds Present, Soft, Non Tender, Obese Extremities: No clubbing, No cyanosis Skin: No breakdown Musculoskeletal: No Tenderness to Palpation of Joints or Extremities Lymphatic: No Cervical, Supraclavicular, or Inguinal Adenopathy Neurological: Cranial nerves II-XII grossly intact, Neuro grossly intact Psych/Mental Status: Normal Affect, Appropriate Labs (Last 48 Hours) 10/18/19 10/18/19 10/18/19 06:15 06:15 06:15 WBC 4.6 RBC 4.17 L Hgb 11.9 L Hct 37.4 MCV 89.7 MCH 28.5 MCHC 31.8 L RDW Std Deviation 48.8 H RDW Coeff of Jarrod 15.1 H Plt Count 111 L MPV 11.4 Immature Gran % (Auto) 0.700 Neut % (Auto) 76.4 H Lymph % (Auto) 15.8 L [place] % (Auto) 5.4 Eos % (Auto) 1.3 Baso % (Auto) 0.4 Absolute Neuts (auto) 3.5 Absolute Lymphs (auto) 0.73 L Nucleated RBC % 0 Sodium Cancelled Potassium Cancelled Chloride Cancelled Carbon Dioxide Cancelled Anion Gap Cancelled BUN Cancelled Creatinine Cancelled Estim Creat Clear Calc Cancelled Est GFR (MDRD) Af Amer Cancelled Est GFR (MDRD) Non-Af Cancelled BUN/Creatinine Ratio Cancelled Glucose Cancelled Lactic Acid 2.6 H* Calcium Cancelled Total Bilirubin Cancelled AST Cancelled ALT Cancelled Alkaline Phosphatase Cancelled Total Protein Cancelled Albumin Cancelled Globulin Cancelled Albumin/Globulin Ratio Cancelled Urine Color Urine Clarity Urine pH Ur Specific [place] Urine Protein Urine Glucose (UA) Urine Ketones Urine Occult Blood Urine Nitrite Urine Bilirubin Urine Urobilinogen Ur Leukocyte Esterase Urine RBC Urine WBC Ur Squamous Epith Cells Ur Transition Epith Cell Urine Bacteria Urine Mucus 10/18/19 10/18/19 06:25 07:20 WBC RBC Hgb Hct MCV MCH MCHC RDW Std Deviation RDW Coeff of Jarrod Plt Count MPV Immature Gran % (Auto) Neut % (Auto) Lymph % (Auto) [place] % (Auto) Eos % (Auto) Baso % (Auto) Absolute Neuts (auto) Absolute Lymphs (auto) Nucleated RBC % Sodium 142 Potassium 4.2 Chloride 112 H Carbon Dioxide 21.0 Anion Gap 9 BUN 27 H Creatinine 1.15 H Estim Creat Clear Calc 49.92 Est GFR (MDRD) Af Amer 62 Est GFR (MDRD) Non-Af 51 L BUN/Creatinine Ratio 23.5 H Glucose 291 H Lactic Acid Calcium 8.4 L Total Bilirubin 0.40 AST 20 ALT 24 Alkaline Phosphatase 88 Total Protein 6.3 L Albumin 2.9 L Globulin 3.4 Albumin/Globulin Ratio 0.9 Urine Color Yellow Urine Clarity Sl. Cloudy Urine pH 5.0 Ur Specific [place] 1.020 Urine Protein 30 H Urine Glucose (UA) 50 H Urine Ketones Negative Urine Occult Blood 10 H Urine Nitrite Negative Urine Bilirubin 1 H Urine Urobilinogen 1 H Ur Leukocyte Esterase 500 H Urine RBC 10-25 SEEN Urine WBC 25-50 SEEN Ur Squamous Epith Cells 0-5 SEEN Ur Transition Epith Cell 0-5 SEEN Urine Bacteria RARE Urine Mucus 0 SEEN Microbiology 10/18/19 07:26 Mucosa - Nasopharyngeal Respiratory Panel (PCR) - Preliminary Human [place] 10/18/19 06:30 Nasal Secretion Rapid RSV (DFA) - Final 10/18/19 06:30 Mucosa - Nasopharyngeal Influenza Types A,B Direct FA (JOIE) - Final Clinical Impression(s) from Imaging Studies Chest X-Ray 10/18/19 06:05 IMPRESSION: Bibasilar opacities suggestive of atelectasis. Early/mild pneumonia at the left base as possible. at 0647 Reported and signed by: Josefina Padgett MD Electronically Signed: Josefina Padgett MD at 6:46 EDT Tel , Service support , Current Medications Acetaminophen (Tylenol) 650 mg PO Q6H PRN PRN PRN Reason: Pain Score 1-10/Temp > 100.7 F Albuterol Sulfate (Ventolin Aerosols) 2.5 mg INHALATION Q2H PRN PRN PRN Reason: DYSPNEA Albuterol/Ipratropium (Duoneb) 3 ml INHALATION Q6H.RT [facility] Atorvastatin Calcium (Lipitor) 20 mg PO QHS [facility] Baclofen (Lioresal) 10 mg PO Q6H PRN PRN PRN Reason: Pain Score 1-10/10 Buspirone HCl (Buspar) 15 mg PO TID [facility] Dextrose (D50w Syringe) 0 gm IV X1 PRN; Protocol PRN Reason: Hypoglycemia Enoxaparin Sodium (Lovenox) 40 mg SC DAILY@0600 DONNY Enoxaparin Sodium (Lovenox) 40 mg SC X1 ONE Stop: 10/18/19 10:01 Ferrous Gluconate (Ferrous Gluconate) 65 mg PO DAILY [facility] Gabapentin (Neurontin) 600 mg PO BID [facility] Gabapentin (Neurontin) 900 mg PO QHS [facility] Glucagon () 1 mg IM .X1 PRN PRN Reason: Hypoglycemia Sodium Chloride () 1,000 mls @ 150 mls/hr IV .Q6H40M [facility] Last Admin: 10/18/19 07:25 Dose: 150 mls/hr Documented by: Ceftriaxone Sodium (Rocephin) 1 gm in 50 mls @ 100 mls/hr IV Q24 [facility] Azithromycin 500 mg/ Dextrose 255 mls @ 250 mls/hr IV Q24 [facility] Insulin Human Lispro (Humalog Kwikpen (Bkc)) 0 unit SC ACHS [facility]; Protocol Levothyroxine Sodium (Synthroid) 150 mcg PO DAILY [facility] Lisinopril (Zestril) 20 mg PO QHS [facility] Lorazepam (Ativan) 1 mg PO BID PRN PRN PRN Reason: ANXIETY Meloxicam (Mobic) 15 mg PO DAILY [facility] Metformin HCl (Glucophage Xr) 500 mg PO DAILY [facility] Non-Formulary Medication (Oxycodone Hcl/Acetaminophen [Percocet 5-325 Mg Tablet]) 1 ea PO BID PRN PRN PRN Reason: Pain Score 1-10/10 Non-Formulary Medication (Oxycodone Myristate [Xtampza Er]) 27 mg PO BID [facility] Pantoprazole Sodium (Protonix) 40 mg PO BID [facility] Polyethylene Glycol (Miralax) 17 gm PO DAILY [facility] Topiramate (Topamax) 25 mg PO BID DONNY Assessment/Plan Active and Suspected Problems (Last Updated 10/18/19 @ 08:[address] Bret Kevin, DO) Urinary frequency (Acute) Nonproductive cough (Acute) Fever and chills (Acute) RECOMMENDATIONS: 1. Continue antibiotics x24 hours. If infectious work-up is negative, they can be discontinued tomorrow. 2. Start scheduled bronchodilators while awake. 3. Start prednisone 40 mg daily x5 days. 4. Encourage incentive spirometer use while in bed and mobilize patient as tolerated. IMPRESSIONS: 1. Severe sepsis secondary to human metapneumovirus infection The patient's chest imaging is not overtly concerning for underlying pneumonia. However, antibiotics can be continued for 24 hours, pending finalized infectious work-up. The patient did receive supplemental IV fluids and remains hemodynamically stable. Repeat lactate is currently pending. The patient will be placed on scheduled bronchodilators and prednisone 40 mg daily x5 days. I see no indication for coronavirus testing. 2. Obesity/diabetes mellitus/depression/hypothyroidism/hypertension/GERD/hyperlipidemia Complicates care, management, recovery and prognosis. Okay to continue home medications as indicated. This note was generated with [employer] dictation software. It may contain incorrect words, spelling, and punctuation that were not noted in checking the note before signing. Inpatient E&M: 90128 Init Hosp L3
[2019-10-18] MEDS: Ipratropium/Albuterol Sulfate 3 ML AMPUL.NEB INHALATION ×3 (11:23→19:00)
[2019-10-18 11:48] LABS: Lactic Acid 1.8 mmol/L (0.4-1.9)
[2019-10-18] MEDS: oxyCODONE CR 15 MG Tablet 30 MG PO ×2 (12:01→21:07)
[2019-10-18] MEDS: Polyethylene Glycol 3350 17 GM PACKET PO (12:01)
[2019-10-18] MEDS: Enoxaparin 40 MG/0.4 ML Syringe SC (12:02)
[2019-10-18] MEDS: Meloxicam 15 MG Tablet PO (12:02)
[2019-10-18] MEDS: busPIRone 15 MG TABLET PO ×2 (12:02→21:07)
[2019-10-18] MEDS: predniSONE 20 MG Tablet 40 MG PO (12:03)
[2019-10-18] MEDS: Topiramate 25 MG Tablet PO ×2 (12:03→21:07)
[2019-10-18] MEDS: Insulin Lispro 100 UNIT/ML INSULN.PEN SC ×3 (12:03→21:07)
[2019-10-18] MEDS: Pantoprazole Sodium 40 MG Tablet PO ×2 (12:03→21:07)
[2019-10-18 12:25] LABS: Bedside Glucose 169 mg/dL (70-110)
--- NOTE | 2019-10-18 12:58 | CASEMGMT ---
RN CM Assessment Note Presentation: UTI/sepsis r/t human metapneumovirus infection. Intro role of CM and purpose of RN CM assessment to patient via phone. Pt is in ICU currently, isolation. RN CM asked pt if she felt able to participate in phone interview and pt states yes.. Demographics, PCP and Pharmacy verified. Pt states she lives with her daughter in apartment. Is paraplegia from past surgery. Has equipment at home and waiver services. Pt states she currently would like to return home if possible, but has been to [place] in past. PCP: Dr. Bah Specialists: Dr. Wilcox, pulmonology Preferred Pharmacy: [address] Insurance: [employer] Prescription Benefit: yes LNOK : Daughter Fabiana Chi Living Arrangements: Pt lives in apartment with her daughter. States she has equipment at home and care needs met through family and aide assist. Transportation: family DME: hospital bed, wheelchair, transfer bench. Denies oxygen/cpap use HHC: none currently [facility] in past consult: pt has waiver services; Mariela Castillo CM Patient DC goals: undetermined DC PLAN: undetermined. PT/OT not ordered at this time. May benefit pt when medically able to be ordered. CM will continue to follow and assist pt with dc needs. Марина MURGUIA RN ACM
--- NOTE | 2019-10-18 13:10 | CASEMGMT ---
SHARITA called [employer] coverage line. SHARITA left a message letting them know patient was admitted to the hospital today. Ingrid DILL MSW
[2019-10-18] MEDS: Gabapentin 300 MG Capsule 600 MG PO (16:03)
[2019-10-18 16:10] LABS: Bedside Glucose 296 mg/dL (70-110)
[2019-10-18] MEDS: oxyCODONE 5 MG Tablet PO (16:34)
[2019-10-18] MEDS: DiphenhydrAMINE 25 MG Capsule PO (17:38)
[2019-10-18] MEDS: Atorvastatin Calcium 20 MG Tablet PO (21:07)
[2019-10-18] MEDS: Gabapentin 300 MG Capsule 900 MG PO (21:07)
[2019-10-18] MEDS: Lisinopril 10 MG Tablet 20 MG PO (21:07)
[2019-10-18] MEDS: LORazepam 1 MG Tablet PO (21:22)
[2019-10-18 21:31] LABS: Bedside Glucose 336 mg/dL (70-110)
[2019-10-18] MEDS: BENZOCAINE/MENTHOL 1 LOZENGE MUCOUS MEM (22:56)
[2019-10-19] VITALS (20 sets, daily range): BP systolic 106–146; BP diastolic 43–70; PULSE 55–90; RESP 8–20; TEMP 36.2–36.9; O2SAT 94–99
--- NOTE | 2019-10-19 03:59 | NURSING ---
Patient was awoke for blood draw and assessment at 03:50am, noticed her gown was wet, asked patient if she would like for us to clean her up at this time, and change her gown. Patient stated it is 4am and i would not like to be bothered with that at this time. Pt was offered for just her gown to be changed at this time and again declined.
[2019-10-19 04:06] LABS: Absolute Lymphocyte Count 1.03 X10^3/uL (0.83-4.51); Absolute Neutrophil Count 2.1 X10^3/uL (2.0-7.7); Basophil# 0.01 X10^3/uL; Basophil% 0.3 % (0-1); Eosinophil# 0.01 X10^3/uL; Eosinophils% 0.3 % (0-5); Hematocrit 30.2 % (37-47); Hemoglobin 9.5 g/dL (12.0-15.0); Lymphocyte # 1.03 X10^3/ul (4.0); Lymphocyte % 30.6 % (19-41); Mean Corp Hgb Conc 31.5 g/dL (32-36); Mean Corpuscular Hgb 28.5 pg (27.0-32.0); Mean Corpuscular Volume 90.7 fL (81-99); Mean Platelet Vol. 10.9 fl (6.2-12.0); Monocyte# 0.21 X10^3/uL; Monocyte% 6.2 % (0-10); NRBC Flagged by Analyzer 0 % (0-5); Neutrophil # 2.08 X10^3/uL (2.7-7.7); Neutrophil % 61.7 % (47-70); Platelet Count 101 K/mm3 (150-450); RBC Distribution Width CV 14.8 % (11.6-14.6); Red Blood Count 3.33 M/mm3 (4.2-5.4); White Blood Count 3.4 K/mm3 (4.4-11.0)
[2019-10-19] MEDS: oxyCODONE 5 MG Tablet PO ×2 (04:11→16:02)
--- NOTE | 2019-10-19 05:05 | RAD_ITS ---
HISTORY: DYSPNEA ADDITIONAL HISTORY: None provided. TECHNIQUE: Frontal chest radiograph. Number of images including paperwork: 1 COMPARISON: 10/18/2019 FINDINGS: LUNGS AND PLEURA: Mild left basilar opacity. The lungs are otherwise clear. No sizable pleural effusion or pneumothorax. CARDIAC SILHOUETTE: Unremarkable. MEDIASTINUM AND JOSS: Unremarkable. UPPER ABDOMEN: Unremarkable. SKELETON AND SOFT TISSUES: No acute findings. OTHER DEVICES AND HARDWARE: Thoracolumbar spinal fusion hardware partially visible. RAD/Chest 1 View (Portable) IMPRESSION: Left basilar atelectasis versus infiltrate. at 0535 Reported and signed by: Josefina Padgett MD Electronically Signed: Josefina Padgett MD at 5:35 EDT Tel , Service support ,
[2019-10-19] MEDS: busPIRone 15 MG TABLET PO ×3 (05:22→21:11)
[2019-10-19] MEDS: Enoxaparin 40 MG/0.4 ML Syringe SC (05:22)
[2019-10-19] MEDS: Levothyroxine 150 MCG Tablet PO (05:22)
[2019-10-19] MEDS: 0.9% Normal Saline 1,000 ML 150 ML IV ×3 (05:22→19:50)
[2019-10-19] MEDS: Ipratropium/Albuterol Sulfate 3 ML AMPUL.NEB INHALATION ×4 (06:26→19:20)
[2019-10-19 06:45] LABS: Bedside Glucose 168 mg/dL (70-110)
--- NOTE | 2019-10-19 07:36 | PCM.PN.INT ---
Subjective: The patient was seen and examined at the bedside this morning. Events from the last 24 hours have been reviewed. The patient is currently afebrile, hemodynamically stable and maintaining appropriate oxygen saturations on room air. The patient is without specific respiratory complaints this morning. Objective: The patient's most recent lab work, culture data and imaging studies have all been personally reviewed. Respiratory viral panel was positive for human metapneumovirus. General: Alert, Cooperative, No apparent distress HEENT: Atraumatic, PERRLA, Normocephalic Oral: No Gingival or Mucosal Lesions/ Ulcerations Neck: Supple, No Nodes, Trachea Midline Lungs: Diminished, Wheezes - Improved from yesterday Cardiovascular: Regular rate, Regular Rhythm, Normal S1, Normal S2, No murmurs Abdomen: Bowel Sounds Present, Soft, Non Tender, Obese Extremities: No clubbing, No cyanosis, No edema Skin: No breakdown Musculoskeletal: No Muscle Wasting Lymphatic: No Cervical, Supraclavicular, or Inguinal Adenopathy Neurological: Cranial nerves II-XII grossly intact, Neuro grossly intact Psych/Mental Status: Normal Affect, Appropriate Vital Signs Temp Pulse Resp BP Pulse Ox 97.9 F 77 18 119/56 L 96 10/19/19 04:00 10/19/19 07:27 10/19/19 06:29 10/19/19 06:00 10/19/19 06:29 Oxygen Flow Rate (L/min) 2 Oxygen Delivery Method Room Air Weight: 249 lb 12.54 oz Body Mass Index (BMI) 39.2 Finger Stick Blood Glucose 130 Intake and Output for Last 24 Hours 10/17/19 10/18/19 10/19/19 23:59 23:59 23:59 Intake Total 4340.0 / 4340.0 1100 / 1100 Output Total 1900 / 1900 450 / 450 Balance 2440.0 / 2440.0 650 / 650 Labs (Last 48 Hours) 10/18/19 10/18/19 10/18/19 06:15 06:15 06:15 WBC 4.6 RBC 4.17 L Hgb 11.9 L Hct 37.4 MCV 89.7 MCH 28.5 MCHC 31.8 L RDW Std Deviation 48.8 H RDW Coeff of Jarrod 15.1 H Plt Count 111 L MPV 11.4 Immature Gran % (Auto) 0.700 Neut % (Auto) 76.4 H Lymph % (Auto) 15.8 L [place] % (Auto) 5.4 Eos % (Auto) 1.3 Baso % (Auto) 0.4 Absolute Neuts (auto) 3.5 Absolute Lymphs (auto) 0.73 L Nucleated RBC % 0 Sodium Cancelled Potassium Cancelled Chloride Cancelled Carbon Dioxide Cancelled Anion Gap Cancelled BUN Cancelled Creatinine Cancelled Estim Creat Clear Calc Cancelled Est GFR (MDRD) Af Amer Cancelled Est GFR (MDRD) Non-Af Cancelled BUN/Creatinine Ratio Cancelled Glucose Cancelled Lactic Acid 2.6 H* Calcium Cancelled Total Bilirubin Cancelled AST Cancelled ALT Cancelled Alkaline Phosphatase Cancelled Total Protein Cancelled Albumin Cancelled Globulin Cancelled Albumin/Globulin Ratio Cancelled Urine Color Urine Clarity Urine pH Ur Specific [place] Urine Protein Urine Glucose (UA) Urine Ketones Urine Occult Blood Urine Nitrite Urine Bilirubin Urine Urobilinogen Ur Leukocyte Esterase Urine RBC Urine WBC Ur Squamous Epith Cells Ur Transition Epith Cell Urine Bacteria Urine Mucus POC Glucose 10/18/19 10/18/19 10/18/19 06:25 07:20 11:20 WBC RBC Hgb Hct MCV MCH MCHC RDW Std Deviation RDW Coeff of Jarrod Plt Count MPV Immature Gran % (Auto) Neut % (Auto) Lymph % (Auto) [place] % (Auto) Eos % (Auto) Baso % (Auto) Absolute Neuts (auto) Absolute Lymphs (auto) Nucleated RBC % Sodium 142 Potassium 4.2 Chloride 112 H Carbon Dioxide 21.0 Anion Gap 9 BUN 27 H Creatinine 1.15 H Estim Creat Clear Calc 49.92 Est GFR (MDRD) Af Amer 62 Est GFR (MDRD) Non-Af 51 L BUN/Creatinine Ratio 23.5 H Glucose 291 H Lactic Acid 1.8 Calcium 8.4 L Total Bilirubin 0.40 AST 20 ALT 24 Alkaline Phosphatase 88 Total Protein 6.3 L Albumin 2.9 L Globulin 3.4 Albumin/Globulin Ratio 0.9 Urine Color Yellow Urine Clarity Sl. Cloudy Urine pH 5.0 Ur Specific [place] 1.020 Urine Protein 30 H Urine Glucose (UA) 50 H Urine Ketones Negative Urine Occult Blood 10 H Urine Nitrite Negative Urine Bilirubin 1 H Urine Urobilinogen 1 H Ur Leukocyte Esterase 500 H Urine RBC 10-25 SEEN Urine WBC 25-50 SEEN Ur Squamous Epith Cells 0-5 SEEN Ur Transition Epith Cell 0-5 SEEN Urine Bacteria RARE Urine Mucus 0 SEEN POC Glucose 10/18/19 10/18/19 10/18/19 11:58 16:00 21:06 WBC RBC Hgb Hct MCV MCH MCHC RDW Std Deviation RDW Coeff of Jarrod Plt Count MPV Immature Gran % (Auto) Neut % (Auto) Lymph % (Auto) [place] % (Auto) Eos % (Auto) Baso % (Auto) Absolute Neuts (auto) Absolute Lymphs (auto) Nucleated RBC % Sodium Potassium Chloride Carbon Dioxide Anion Gap BUN Creatinine Estim Creat Clear Calc Est GFR (MDRD) Af Amer Est GFR (MDRD) Non-Af BUN/Creatinine Ratio Glucose Lactic Acid Calcium Total Bilirubin AST ALT Alkaline Phosphatase Total Protein Albumin Globulin Albumin/Globulin Ratio Urine Color Urine Clarity Urine pH Ur Specific [place] Urine Protein Urine Glucose (UA) Urine Ketones Urine Occult Blood Urine Nitrite Urine Bilirubin Urine Urobilinogen Ur Leukocyte Esterase Urine RBC Urine WBC Ur Squamous Epith Cells Ur Transition Epith Cell Urine Bacteria Urine Mucus POC Glucose 169 H 296 H 336 H 10/19/19 10/19/19 03:50 06:40 WBC 3.4 L RBC 3.33 L Hgb 9.5 L Hct 30.2 L MCV 90.7 MCH 28.5 MCHC 31.5 L RDW Std Deviation 49.0 H RDW Coeff of Jarrod 14.8 H Plt Count 101 L MPV 10.9 Immature Gran % (Auto) 0.900 Neut % (Auto) 61.7 Lymph % (Auto) 30.6 [place] % (Auto) 6.2 Eos % (Auto) 0.3 Baso % (Auto) 0.3 Absolute Neuts (auto) 2.1 Absolute Lymphs (auto) 1.03 Nucleated RBC % 0 Sodium Potassium Chloride Carbon Dioxide Anion Gap BUN Creatinine Estim Creat Clear Calc Est GFR (MDRD) Af Amer Est GFR (MDRD) Non-Af BUN/Creatinine Ratio Glucose Lactic Acid Calcium Total Bilirubin AST ALT Alkaline Phosphatase Total Protein Albumin Globulin Albumin/Globulin Ratio Urine Color Urine Clarity Urine pH Ur Specific [place] Urine Protein Urine Glucose (UA) Urine Ketones Urine Occult Blood Urine Nitrite Urine Bilirubin Urine Urobilinogen Ur Leukocyte Esterase Urine RBC Urine WBC Ur Squamous Epith Cells Ur Transition Epith Cell Urine Bacteria Urine Mucus POC Glucose 168 H Microbiology 10/18/19 07:26 Mucosa - Nasopharyngeal Respiratory Panel (PCR) - Final Human [place] 10/18/19 06:25 Urine Catheter - Catheter Streptococcus pneumoniae Antigen (M - Final 10/18/19 06:25 Urine Catheter - Catheter Legionella Antigen - Final 10/18/19 06:30 Nasal Secretion Rapid RSV (DFA) - Final 10/18/19 06:30 Mucosa - Nasopharyngeal Influenza Types A,B Direct FA (JOIE) - Final Clinical Impression(s) from Imaging Studies Chest X-Ray 10/18/19 06:05 IMPRESSION: Bibasilar opacities suggestive of atelectasis. Early/mild pneumonia at the left base as possible. at 0647 Reported and signed by: Josefina Padgett MD Electronically Signed: Josefina Padgett MD at 6:46 EDT Tel , Service support , Chest X-Ray 10/19/19 05:05 IMPRESSION: Left basilar atelectasis versus infiltrate. at 0535 Reported and signed by: Josefina Padgett MD Electronically Signed: Josefina Padgett MD at 5:35 EDT Tel , Service support , Medical Necessity - Tobacco Use Smoking Status: Former smoker Tobacco Use: Non-smoker Assessment/Plan All Active Problems (Last Updated 10/18/19 @ 08:[address] Bret Kevin, DO) Cystitis (Acute) Ingrowing toenail (Resolved) Urinary frequency (Acute) Nonproductive cough (Acute) Fever and chills (Acute) RECOMMENDATIONS: 1. Okay to discontinue antibiotics from my perspective. I do not have suspicion for a urinary tract source of infection. 2. Continue scheduled bronchodilators while awake. 3. Continue prednisone 40 mg daily x5 days. 4. Encourage incentive spirometer use while in bed and mobilize patient as tolerated. 5. The patient is medically stable for transfer out of the intensive care unit. 6. Will sign off from a critical care perspective. Please call with any additional questions. IMPRESSIONS: 1. Severe sepsis secondary to human metapneumovirus infection The patient's chest imaging is not overtly concerning for underlying pneumonia. Given that the patient's work-up has not revealed any evidence of bacterial sources of infection, I would favor discontinuation of antibiotics. Continue current supportive measures including scheduled bronchodilators and prednisone x5 days. Encourage incentive spirometer use while in bed. 2. Obesity/diabetes mellitus/depression/hypothyroidism/hypertension/GERD/hyperlipidemia Complicates care, management, recovery and prognosis. Okay to continue home medications as indicated. This note was generated with [employer] dictation software. It may contain incorrect words, spelling, and punctuation that were not noted in checking the note before signing. Inpatient E&M: 36679 Subs Hosp L3
--- NOTE | 2019-10-19 08:10 | PCM.PROGNOTE ---
Patient Problems: Active and Suspected Problems (Last Updated 10/18/19 @ 08:[address] Bret Kevin, DO) Urinary frequency (Acute) Nonproductive cough (Acute) Fever and chills (Acute) Subjective: Patient was seen and examined today, she is on room air at this time, she does not appear to be in any respiratory distress. Patient's respiratory panel resulted yesterday and positive for metapneumovirus, patient's white blood cell count today is slightly low. Patient's vital signs appear to be stable at this time. Patient denies any chest pain or shortness of breath at the time of my examination. - Physical Exam Vitals/I&O's: Vital Signs Temp Pulse Resp BP Pulse Ox 97.9 F 77 10 L 129/67 H 95 10/19/19 04:00 10/19/19 07:27 10/19/19 07:00 10/19/19 07:00 10/19/19 07:00 Oxygen Flow Rate (L/min) 2 Oxygen Delivery Method Room Air Weight: 113.3 kg Body Mass Index (BMI) 39.2 Finger Stick Blood Glucose 130 Intake and Output for Last 24 Hours 10/17/19 10/18/19 10/19/19 23:59 23:59 23:59 Intake Total 4340.0 / 4340.0 1100 / 1100 Output Total 1900 / 1900 450 / 450 Balance 2440.0 / 2440.0 650 / 650 General: Alert, Oriented x3, Cooperative, No apparent distress, Well developed HEENT: Atraumatic, PERRLA, EOMI, Normocephalic Oral: Moist Mucosa Neck: Supple, No JVD, Trachea Midline, Thyroid Normal Size and Texture Lungs: Normal air movement, Wheezes - Expiratory wheezing bilaterally Cardiovascular: Regular rate, Regular Rhythm, Normal S1, Normal S2, No murmurs, PMI Normal, No rub noted Abdomen: Bowel Sounds Present, Soft, Non Tender, Non-Distended, No hernias noted Extremities: No clubbing, No cyanosis, No edema, Capillary Refill Less than 3 Seconds Skin: No rashes, No breakdown Musculoskeletal: No Tenderness to Palpation of Joints or Extremities Neurological: Cranial nerves II-XII grossly intact, Neuro grossly intact, Sensory exam intact to light touch and pain, Coordination normal, - - Patient has lower extremity weakness Psych/Mental Status: Normal Affect, Appropriate, Alert and oriented to time, place, person, mood and affect Microbiology Past 72 Hours 10/18/19 07:26 Mucosa - Nasopharyngeal Respiratory Panel (PCR) - Final Human [place] 10/18/19 06:25 Urine Catheter - Catheter Streptococcus pneumoniae Antigen (M - Final 10/18/19 06:25 Urine Catheter - Catheter Legionella Antigen - Final 10/18/19 06:30 Nasal Secretion Rapid RSV (DFA) - Final 10/18/19 06:30 Mucosa - Nasopharyngeal Influenza Types A,B Direct FA (JOIE) - Final Laboratory Results 10/18/19 07:20: Sodium 142, Potassium 4.2, Chloride 112 H, Carbon Dioxide 21.0, Anion Gap 9, BUN 27 H, Creatinine 1.15 H, Estim Creat Clear Calc 49.92, Est GFR (MDRD) Af Amer 62, Est GFR (MDRD) Non-Af 51 L, BUN/Creatinine Ratio 23.5 H, Glucose 291 H, Calcium 8.4 L, Total Bilirubin 0.40, AST 20, ALT 24, Alkaline Phosphatase 88, Total Protein 6.3 L, Albumin 2.9 L, Globulin 3.4, Albumin/Globulin Ratio 0.9 10/18/19 11:20: Lactic Acid 1.8 10/18/19 11:58: POC Glucose 169 H 10/18/19 16:00: POC Glucose 296 H 10/18/19 21:06: POC Glucose 336 H 10/19/19 03:50: WBC 3.4 L, RBC 3.33 L, Hgb 9.5 L, Hct 30.2 L, MCV 90.7, MCH 28.5, MCHC 31.5 L, RDW Std Deviation 49.0 H, RDW Coeff of Jarrod 14.8 H, Plt Count 101 L, MPV 10.9, Immature Gran % (Auto) 0.900, Neut % (Auto) 61.7, Lymph % (Auto) 30.6, [place] % (Auto) 6.2, Eos % (Auto) 0.3, Baso % (Auto) 0.3, Absolute Neuts (auto) 2.1, Absolute Lymphs (auto) 1.03, Nucleated RBC % 0 10/19/19 06:40: POC Glucose 168 H Current Medications Acetaminophen (Tylenol) 650 mg PO Q6H PRN PRN PRN Reason: Pain Score 1-10/Temp > 100.7 F Albuterol Sulfate (Ventolin Aerosols) 2.5 mg INHALATION Q2H PRN PRN PRN Reason: DYSPNEA Albuterol/Ipratropium (Duoneb) 3 ml INHALATION Q4HWA.RT [facility] Last Admin: 10/19/19 06:26 Dose: 3 ml Documented by: Atorvastatin Calcium (Lipitor) 20 mg PO QHS [facility] Last Admin: 10/18/19 21:07 Dose: 20 mg Documented by: Baclofen (Lioresal) 10 mg PO Q6H PRN PRN PRN Reason: Pain Score 1-10/10 Buspirone HCl (Buspar) 15 mg PO TID [facility] Last Admin: 10/19/19 05:22 Dose: 15 mg Documented by: Dextrose (D50w Syringe) 0 gm IV X1 PRN; Protocol PRN Reason: Hypoglycemia Diphenhydramine HCl (Benadryl) 25 mg PO Q6H PRN PRN Reason: ITCHING Last Admin: 10/18/19 17:38 Dose: 25 mg Documented by: Enoxaparin Sodium (Lovenox) 40 mg SC DAILY@0600 [facility] Last Admin: 10/19/19 05:22 Dose: 40 mg Documented by: Gabapentin (Neurontin) 600 mg PO BIDCM [facility] Last Admin: 10/18/19 16:03 Dose: 600 mg Documented by: Gabapentin (Neurontin) 900 mg PO QHS [facility] Last Admin: 10/18/19 21:07 Dose: 900 mg Documented by: Glucagon () 1 mg IM .X1 PRN PRN Reason: Hypoglycemia Sodium Chloride () 1,000 mls @ 150 mls/hr IV .Q6H40M [facility] Last Admin: 10/19/19 05:22 Dose: 150 mls/hr Documented by: Ceftriaxone Sodium (Rocephin) 1 gm in 50 mls @ 100 mls/hr IV Q24 [facility] Azithromycin 500 mg/ Dextrose 255 mls @ 250 mls/hr IV Q24 [facility] Insulin Human Lispro (Humalog Kwikpen (Bkc)) 0 unit SC ACHS [facility]; Protocol Last Admin: 10/18/19 21:07 Dose: 8 u Documented by: Levothyroxine Sodium (Synthroid) 150 mcg PO DAILY@0600 [facility] Last Admin: 10/19/19 05:22 Dose: 150 mcg Documented by: Lisinopril (Zestril) 20 mg PO QHS [facility] Last Admin: 10/18/19 21:07 Dose: 20 mg Documented by: Lorazepam (Ativan) 1 mg PO BID PRN PRN PRN Reason: ANXIETY Last Admin: 10/18/19 21:22 Dose: 1 mg Documented by: Meloxicam (Mobic) 15 mg PO DAILY [facility] Last Admin: 10/18/19 12:02 Dose: 15 mg Documented by: Metformin HCl (Glucophage Xr) 500 mg PO DAILY@0800 [facility] Oxycodone HCl (Oxyir) 5 mg PO BID PRN PRN PRN Reason: Pain Score 1-10/10 Last Admin: 10/19/19 04:11 Dose: 5 mg Documented by: Oxycodone HCl (Oxycontin) 30 mg PO BID [facility] Last Admin: 10/18/19 21:07 Dose: 30 mg Documented by: Pantoprazole Sodium (Protonix) 40 mg PO BID [facility] Last Admin: 10/18/19 21:07 Dose: 40 mg Documented by: Polyethylene Glycol (Miralax) 17 gm PO DAILY [facility] Last Admin: 10/18/19 12:01 Dose: 17 gm Documented by: Prednisone () 40 mg PO DAILY@0800 [facility] Stop: 10/24/19 08:01 Last Admin: 10/18/19 12:03 Dose: 40 mg Documented by: Sodium Chloride () 10 - 40 ml IV UD PRN PRN Reason: SALINE FLUSH Throat Lozenges (Cepacol Sore Throat Lozenge) 1 lozenge MUCOUS MEM Q2H PRN PRN PRN Reason: SORE THROAT Last Admin: 10/18/19 22:56 Dose: 1 lozenge Documented by: Topiramate (Topamax) 25 mg PO BID [facility] Last Admin: 10/18/19 21:07 Dose: 25 mg Documented by: Medical Necessity - Tobacco Use Smoking Status: Former smoker Tobacco Use: Non-smoker Assessment/Plan All Active Problems (Last Updated 10/18/19 @ 08:[address] Bret Kevin, DO) Cystitis (Acute) Ingrowing toenail (Resolved) Urinary frequency (Acute) Nonproductive cough (Acute) Fever and chills (Acute) #1 severe sepsis secondary to acute urinary tract infection-secondary to gram negative bacteria-patient will remain on Rocephin, awaiting urine culture #2 acute urinary tract infection #3 Metapneumovirus tracheobronchitis-continue p.o. prednisone per pulmonary medicine, continue aerosol treatments, pulmonary medicine is participating with her care #4 probable chronic obstructive pulmonary disease-DuoNeb aerosols were ordered, I have elected to keep the patient on Zithromax #5 type 2 diabetes-blood sugars will be monitored #6 Bilateral lower leg weakness secondary to spinal stenosis and failed back surgery-patient states she does not walk, she uses a wheelchair at home, she does have movement of her legs however in bed. #7 degenerative disc disease of the cervical and lumbar spine #8 class III obesity #9 chronic depression #10 osteoarthritis Patient will be moved from the ICU to PCU. Inpatient E&M: 19539 Subs Hosp L2
[2019-10-19] MEDS: Insulin Lispro 100 UNIT/ML INSULN.PEN SC ×4 (08:23→21:14)
[2019-10-19] MEDS: predniSONE 20 MG Tablet 40 MG PO (08:25)
[2019-10-19] MEDS: Gabapentin 300 MG Capsule 600 MG PO ×2 (08:25→16:03)
[2019-10-19] MEDS: Pantoprazole Sodium 40 MG Tablet PO ×2 (08:26→21:10)
[2019-10-19] MEDS: Topiramate 25 MG Tablet PO ×2 (08:26→21:11)
[2019-10-19] MEDS: Meloxicam 15 MG Tablet PO (08:26)
[2019-10-19] MEDS: oxyCODONE CR 15 MG Tablet 30 MG PO ×2 (08:26→21:11)
[2019-10-19] MEDS: metFORMIN (XR) 500 MG Tablet PO (08:27)
[2019-10-19] MEDS: Ceftriaxone 1 GM/50 ML BAG IV (08:27)
--- NOTE | 2019-10-19 10:11 | NURSING ---
report called to pcu transferred per bed with belongings to room 117
[2019-10-19 13:21] LABS: Bedside Glucose 222 mg/dL (70-110)
[2019-10-19] MEDS: LORazepam 1 MG Tablet PO (16:03)
[2019-10-19 16:26] LABS: Bedside Glucose 243 mg/dL (70-110)
[2019-10-19] MEDS: Lisinopril 10 MG Tablet 20 MG PO (21:10)
[2019-10-19] MEDS: Gabapentin 300 MG Capsule 900 MG PO (21:10)
[2019-10-19] MEDS: Atorvastatin Calcium 20 MG Tablet PO (21:11)
[2019-10-19 21:46] LABS: Bedside Glucose 172 mg/dL (70-110)
[2019-10-20] VITALS (7 sets, daily range): BP systolic 128–144; BP diastolic 59–67; PULSE 76–100; RESP 16–20; TEMP 36.6–37.2; O2SAT 95–98
[2019-10-20] MEDS: 0.9% Normal Saline 1,000 ML 150 ML IV ×2 (02:08→09:16)
[2019-10-20] MEDS: Ipratropium/Albuterol Sulfate 3 ML AMPUL.NEB INHALATION ×3 (03:22→10:59)
[2019-10-20] MEDS: oxyCODONE 5 MG Tablet PO (04:47)
[2019-10-20] MEDS: LORazepam 1 MG Tablet PO (04:48)
[2019-10-20] MEDS: Levothyroxine 150 MCG Tablet PO (06:34)
[2019-10-20] MEDS: Cephalexin 500 MG Capsule PO ×2 (06:34→14:28)
[2019-10-20] MEDS: busPIRone 15 MG TABLET PO ×2 (06:34→14:28)
[2019-10-20 06:40] LABS: Bedside Glucose 120 mg/dL (70-110)
[2019-10-20] MEDS: oxyCODONE CR 15 MG Tablet 30 MG PO (09:10)
[2019-10-20] MEDS: Polyethylene Glycol 3350 17 GM PACKET PO (09:10)
[2019-10-20] MEDS: Topiramate 25 MG Tablet PO (09:11)
[2019-10-20] MEDS: predniSONE 20 MG Tablet 40 MG PO (09:11)
[2019-10-20] MEDS: Gabapentin 300 MG Capsule 600 MG PO (09:11)
[2019-10-20] MEDS: Pantoprazole Sodium 40 MG Tablet PO (09:11)
[2019-10-20] MEDS: metFORMIN (XR) 500 MG Tablet PO (09:11)
[2019-10-20] MEDS: Meloxicam 15 MG Tablet PO (09:11)
--- NOTE | 2019-10-20 09:28 | PCM.DC ---
- Discharge Diagnoses Current Active Problems: Current Active and Chronic Problems (Last Updated 10/18/19 @ 08:[address] Bret Kevin, DO) Urinary frequency (Acute) Nonproductive cough (Acute) Fever and chills (Acute) You will use the following diet at home:: Calorie/Carbohydrate Controlled (specify 1200, 1400, etc) - 1800 elian Your food should be the consistency of: Regular Your liquids should be the consistency of: Regular/Thin Discharge Activity: Return to Normal Activity Allergies/Adverse Reactions: Allergies NSAIDS (Non-Steroidal Anti-Inflamma Allergy (Verified 10/18/19 06:03) GASTRIC BYPASS trazodone Adverse Reaction (Verified 10/18/19 06:03) Other migraine Medications to take at Discharge Levothyroxine Sodium [Levoxyl] 150 mcg PO DAILY 07/29/13 Calcium Citrate/Vitamin D3 [Calcium Citrate-Vit D3 Tablet] 1 ea PO BID 04/09/16 Cholecalciferol (VIT D3) [Vitamin D3] 2,000 unit PO QHS 04/09/16 Biotin 10,000 mcg PO DAILY 02/16/18 Cyanocobalamin (Vitamin B-12) [Vitamin B-12] 1,000 mcg PO QHS 02/16/18 Ferrous Gluconate 65 mg PO DAILY 02/16/18 Gabapentin [Neurontin] 600 mg PO BID 02/16/18 Topiramate [Topamax] 25 mg PO BID 02/16/18 [id number]-[id number]-ivyzuk 1 tab PO QDAY 02/26/18 Lorazepam [Ativan] 1 mg PO BID PRN PRN #10 tab 03/30/18 lisinopril 10 mg tablet 20 mg PO QHS 09/18/18 Ipratropium/Albuterol Respimat [Combivent Respimat Inhal [place]] 1 puff INHALATION Q6H PRN PRN 12/20/18 Oxycodone HCl/Acetaminophen [Percocet 5-325 mg Tablet] 1 ea PO BID PRN PRN 12/20/18 busPIRone [Buspar] 15 mg PO TID 12/20/18 acetaminophen 325 mg tablet 500 mg PO Q6H PRN tab 03/05/19 baclofen 10 mg tablet 10 mg PO Q6H PRN PRN tab 03/05/19 gabapentin 300 mg capsule 900 mg PO QHS cap 08/13/19 meloxicam 15 mg tablet 15 mg PO DAILY tab 03/05/19 pantoprazole 40 mg tablet,delayed release 40 mg PO BID tab 03/05/19 Atorvastatin Calcium [Lipitor] 20 mg PO QHS 08/08/19 Betamethasone Valerate [Valisone 0.1% Cream (BKC)] 1 applic TOPICAL BID 10/18/19 Metformin HCl [Metformin HCl ER] 500 mg PO DAILY 10/18/19 Oxycodone Myristate [Xtampza ER] 27 mg PO BID 10/18/19 Polyethylene Glycol 3350 17 gm PO DAILY 10/18/19 Cephalexin [Keflex] 500 mg PO TID #14 cap 10/20/19 Prednisone 20 mg PO UD #14 tab 10/20/19 The following prescriptions were given: Cephalexin [Keflex] 500 mg PO TID #14 cap Transmission Status: Sent to [address] Prednisone 20 mg PO UD #14 tab Transmission Status: Sent to [address] Primary Care Physician: Kevin Bah MD [Primary Care Provider] - Please follow up with your Primary Care Physician in: in 1-2 weeks Test Results: Test results from this visit will be discussed in further detail at your follow-up appointment, if applicable.
--- NOTE | 2019-10-20 09:52 | DS.PCM_ITS ---
Discharge Date and Diagnosis - Problem List Patient Problems: Active and Suspected Problems (Last Updated 10/18/19 @ 08:[address] Bret Kevin DO) Urinary frequency (Acute) Nonproductive cough (Acute) Fever and chills (Acute) Date of Admission: 10/18/19 Date of Discharge: 10/20/19 - Primary Discharge Diagnosis Active and Suspected Problems (Last Updated 10/18/19 @ 08:[address] Bret Kevin DO) #1 severe sepsis secondary to upper respiratory metapneumovirus infection #2 acute cystitis-organism unknown #3 chronic obstructive pulmonary disease #4 chronic pain syndrome #5 uncontrolled type 2 diabetes #6 class III obesity #7 chronic depression Severe sepsis was not caused by acute cystitis - Secondary Discharge Diagnosis Chronic Problems (Last Updated 10/18/19 @ 08:[address] Bret Kevin DO) Complex ovarian cyst (Chronic) cea and ca125 ordered Major depressive disorder (Chronic) Anxiety (Chronic) Constipation (Chronic) GERD without esophagitis (Chronic) Chronic cluster headache, not intractable (Chronic) Age-related osteoporosis without current pathological fracture (Chronic) Primary generalized (osteo)arthritis (Chronic) Other intervertebral disc degeneration, lumbar region (Chronic) Hypothyroidism (Chronic) Anemia (Chronic) COPD (chronic obstructive pulmonary disease) (Chronic) Muscle weakness (Chronic) Spinal stenosis, lumbar region without neurogenic claudication (Chronic) Neuromuscular scoliosis (Chronic) Chronic low back pain (Chronic) Paraplegia (Chronic) Tobacco use disorder (Chronic) Morbid obesity (Chronic) HTN (hypertension) (Chronic) HLD (hyperlipidemia) (Chronic) Dysthymic disorder (Chronic) Diabetes mellitus type 2, uncontrolled, without complications (Chronic) Chronic Airway Obstruction NEC (Chronic) Hospital Course and Treatment Operations: None Procedures: None Summary of Care Provided: The patient is a 59 year old F was seen in the emergency room at [facility] with a chief complaint of nonproductive cough, fever and chills, and urinary frequency. Work-up in the emergency room included a urinaly sis which showed 10-25 RBCs and 25-50 WBCs with rare bacteria, patient's rapid RSV and influenza test was negative, patient's lactic acid was elevated at 2.6. Chest x-ray showed an area of atelectasis at the left lung base. Patient was felt to have severe sepsis secondary to acute cystitis initially, she was admitted to ICU, she was seen by pulmonary medicine, and a respiratory panel resulted positive for human metapneumovirus. It was felt that this was the cause of the patient's severe sepsis. Patient was moved out to PCU and she did not require oxygen, she was placed on oral corticosteroids for wheezing. On 10/20/2019, patient was seen and examined: On examination she appeared in good health and spirits, she does not appear to be in any distress. Vital signs as documented. Skin warm and dry and without overt rashes. Neck without JVD, thyroid appears normal, trachea is midline, neck is supple. Lungs-expiratory wheezes are scattered over both lungs, normal air movement was noted. Heart exam notable for regular rhythm, normal sounds and absence of murmurs, rubs or gallops. Abdomen unremarkable and without evidence of organomegaly, masses, or abdominal aortic enlargement, bowel sounds are present in all 4 quadrants, no abdominal tenderness was noted. Extremities nonedematous, no cyanosis was noted, no clubbing was noted. Neuro: Cranial nerves II through XII are grossly intact, no focal motor deficits were noted, sensation to light touch and pinprick is intact, motor exam revealed generalized weakness in both legs. Psych: Patient is alert and oriented x3, she does not appear anxious or depressed, she does not appear agitated. On 10/20/2019, patient was seen and examined and felt be in stable condition for discharge home Patient Problems: Active and Suspected Problems (Last Updated 10/18/19 @ 08:[address] Bret Kevin, DO) Urinary frequency (Acute) Nonproductive cough (Acute) Fever and chills (Acute) - Physical Exam Vitals/I&O's: Vital Signs Temp Pulse Resp BP Pulse Ox 97.9 F 80 18 128/59 H 98 10/20/19 08:58 10/20/19 08:58 10/20/19 08:58 10/20/19 08:58 10/20/19 08:58 Oxygen Flow Rate (L/min) 2 Oxygen Delivery Method Room Air Weight: 113.3 kg Body Mass Index (BMI) 39.2 Finger Stick Blood Glucose 130 Intake and Output for Last 24 Hours 10/18/19 10/19/19 10/20/19 23:59 23:59 23:59 Intake Total 4340.0 / 4340.0 4465 / 4465 2447.5 / 2447.5 Output Total 1900 / 1900 2850 / 2850 900 / 900 Balance 2440.0 / 2440.0 1615 / 1615 1547.5 / 1547.5 Microbiology Past 72 Hours 10/18/19 06:25 Urine, Catheterized Urine Culture - Final Culture exhibits no growth. 10/18/19 07:26 Mucosa - Nasopharyngeal Respiratory Panel (PCR) - Final Human [place] 10/18/19 06:25 Urine Catheter - Catheter Streptococcus pneumoniae Antigen (M - Final 10/18/19 06:25 Urine Catheter - Catheter Legionella Antigen - Final 10/18/19 06:30 Nasal Secretion Rapid RSV (DFA) - Final 10/18/19 06:30 Mucosa - Nasopharyngeal Influenza Types A,B Direct FA (JOIE) - Final Laboratory Results 10/19/19 13:10: POC Glucose 222 H 10/19/19 16:11: POC Glucose 243 H 10/19/19 21:07: POC Glucose 172 H 10/20/19 06:33: POC Glucose 120 H Current Medications Acetaminophen (Tylenol) 650 mg PO Q6H PRN PRN PRN Reason: Pain Score 1-10/Temp > 100.7 F Albuterol Sulfate (Ventolin Aerosols) 2.5 mg INHALATION Q2H PRN PRN PRN Reason: DYSPNEA Albuterol/Ipratropium (Duoneb) 3 ml INHALATION Q4HWA.RT [facility] Last Admin: 10/20/19 03:22 Dose: 3 ml Documented by: Atorvastatin Calcium (Lipitor) 20 mg PO QHS [facility] Last Admin: 10/19/19 21:11 Dose: 20 mg Documented by: Baclofen (Lioresal) 10 mg PO Q6H PRN PRN PRN Reason: Pain Score 1-10/10 Buspirone HCl (Buspar) 15 mg PO TID [facility] Last Admin: 10/20/19 06:34 Dose: 15 mg Documented by: Cephalexin (Keflex) 500 mg PO TID [facility] Last Admin: 10/20/19 06:34 Dose: 500 mg Documented by: Dextrose (D50w Syringe) 0 gm IV X1 PRN; Protocol PRN Reason: Hypoglycemia Diphenhydramine HCl (Benadryl) 25 mg PO Q6H PRN PRN Reason: ITCHING Last Admin: 10/18/19 17:38 Dose: 25 mg Documented by: Enoxaparin Sodium (Lovenox) 40 mg SC DAILY@0600 [facility] Last Admin: 10/20/19 06:22 Dose: Not Given Documented by: Gabapentin (Neurontin) 600 mg PO BIDCM [facility] Last Admin: 10/20/19 09:11 Dose: 600 mg Documented by: Gabapentin (Neurontin) 900 mg PO QHS [facility] Last Admin: 10/19/19 21:10 Dose: 900 mg Documented by: Glucagon () 1 mg IM .X1 PRN PRN Reason: Hypoglycemia Sodium Chloride () 1,000 mls @ 150 mls/hr IV .Q6H40M [facility] Last Infusion: 10/20/19 09:17 Dose: 150 mls/hr Documented by: Insulin Human Lispro (Humalog Kwikpen (Bkc)) [address] [facility]; Protocol Last Admin: 10/20/19 06:35 Dose: Not Given Documented by: Levothyroxine Sodium (Synthroid) 150 mcg PO DAILY@0600 [facility] Last Admin: 10/20/19 06:34 Dose: 150 mcg Documented by: Lisinopril (Zestril) 20 mg PO QHS [facility] Last Admin: 10/19/19 21:10 Dose: 20 mg Documented by: Lorazepam (Ativan) 1 mg PO BID PRN PRN PRN Reason: ANXIETY Last Admin: 10/20/19 04:48 Dose: 1 mg Documented by: Meloxicam (Mobic) 15 mg PO DAILY [facility] Last Admin: 10/20/19 09:11 Dose: 15 mg Documented by: Metformin HCl (Glucophage Xr) 500 mg PO DAILY@0800 [facility] Last Admin: 10/20/19 09:11 Dose: 500 mg Documented by: Oxycodone HCl (Oxyir) 5 mg PO BID PRN PRN PRN Reason: Pain Score 1-10/10 Last Admin: 10/20/19 04:47 Dose: 5 mg Documented by: Oxycodone HCl (Oxycontin) 30 mg PO BID [facility] Last Admin: 10/20/19 09:10 Dose: 30 mg Documented by: Pantoprazole Sodium (Protonix) 40 mg PO BID [facility] Last Admin: 10/20/19 09:11 Dose: 40 mg Documented by: Polyethylene Glycol (Miralax) 17 gm PO DAILY [facility] Last Admin: 10/20/19 09:10 Dose: 17 gm Documented by: Prednisone () 40 mg PO DAILY@0800 [facility] Stop: 10/24/19 08:01 Last Admin: 10/20/19 09:11 Dose: 40 mg Documented by: Sodium Chloride () 10 - 40 ml IV UD PRN PRN Reason: SALINE FLUSH Throat Lozenges (Cepacol Sore Throat Lozenge) 1 lozenge MUCOUS MEM Q2H PRN PRN PRN Reason: SORE THROAT Last Admin: 10/18/19 22:56 Dose: 1 lozenge Documented by: Topiramate (Topamax) 25 mg PO BID [facility] Last Admin: 10/20/19 09:11 Dose: 25 mg Documented by: Discharge Activity: Return to Normal Activity Home Medications: Medications to take at Discharge Levothyroxine Sodium [Levoxyl] 150 mcg PO DAILY 07/29/13 Calcium Citrate/Vitamin D3 [Calcium Citrate-Vit D3 Tablet] 1 ea PO BID 04/09/16 Cholecalciferol (VIT D3) [Vitamin D3] 2,000 unit PO QHS 04/09/16 Biotin 10,000 mcg PO DAILY 02/16/18 Cyanocobalamin (Vitamin B-12) [Vitamin B-12] 1,000 mcg PO QHS 02/16/18 Ferrous Gluconate 65 mg PO DAILY 02/16/18 Gabapentin [Neurontin] 600 mg PO BID 02/16/18 Topiramate [Topamax] 25 mg PO BID 02/16/18 [id number] 1 tab PO QDAY 02/26/18 Lorazepam [Ativan] 1 mg PO BID PRN PRN #10 tab 03/30/18 lisinopril 10 mg tablet 20 mg PO QHS 09/18/18 Ipratropium/Albuterol Respimat [Combivent Respimat Inhal Bryan] 1 puff INHALATION Q6H PRN PRN 12/20/18 Oxycodone HCl/Acetaminophen [Percocet 5-325 mg Tablet] 1 ea PO BID PRN PRN 12/20/18 busPIRone [Buspar] 15 mg PO TID 12/20/18 acetaminophen 325 mg tablet 500 mg PO Q6H PRN tab 03/05/19 baclofen 10 mg tablet 10 mg PO Q6H PRN PRN tab 03/05/19 gabapentin 300 mg capsule 900 mg PO QHS cap 03/05/19 meloxicam 15 mg tablet 15 mg PO DAILY tab 03/05/19 pantoprazole 40 mg tablet,delayed release 40 mg PO BID tab 03/05/19 Atorvastatin Calcium [Lipitor] 20 mg PO QHS 08/08/19 Betamethasone Valerate [Valisone 0.1% Cream (BKC)] 1 applic TOPICAL BID 10/18/19 Metformin HCl [Metformin HCl ER] 500 mg PO DAILY 10/18/19 Oxycodone Myristate [Xtampza ER] 27 mg PO BID 10/18/19 Polyethylene Glycol 3350 17 gm PO DAILY 10/18/19 Cephalexin [Keflex] 500 mg PO TID #14 cap 10/20/19 Prednisone 20 mg PO UD #14 tab 10/20/19 Following Prescrptions Were Given to Patient: Cephalexin [Keflex] 500 mg PO TID #14 cap Transmission Status: Received by CRISS ARZATE RD Prednisone 20 mg PO UD #14 tab Transmission Status: Received by [facility]ISS ARZ[address] Primary Care Physician: Kevin Bah MD [Primary Care Provider] - Please follow up with your Primary Care Physician in: in 1-2 weeks Disposition: Home Minutes spent on discharge:: 32 Patient Condition:: Stable Medical Necessity - Tobacco Use Smoking Status: Former smoker Tobacco Use: Non-smoker Meaningful Use Info Meaningful Use Diagnoses (Choose all that apply): None applicable Inpatient E&M: 66054 Disch Hosp
[2019-10-20] MEDS: Insulin Lispro 100 UNIT/ML INSULN.PEN SC (12:06)
[2019-10-20 12:11] LABS: Bedside Glucose 239 mg/dL (70-110)
--- NOTE | 2019-10-21 09:49 | CASEMGMT ---
TODD MEZA Discharge Follow-up Phone Call: SHONNA: Kenny Strata: 3 Call Date: 10/21/19 Discharge Date: 10/20/19 Time of Call: [id number] Duration: 4 min Admitting Diagnosis: Severe Sepsis, UTI TODD MEZA completed follow-up phone call after recent hospitalization. Patient states she is better and glad to be home. Patient states her aide is currently there. Patient states she has no questions or concerns regarding discharge instructions. Patient states she was able to fill prescriptions without any issues. TODD MEZA instructed patient to call PCP office to arrange for appropriate follow-up. Patient voiced understanding and had no further needs at this time.
== END 2019-10-20 16:15 | disposition home or self-care (01) | DRG 872 ==
LOC: ED 07:15 → ICU 08:41 → PCU 10-19 10:27
PROVIDERS: Admitting Provider Internal Medicine; Emergency Provider Emergency Medicine; PCP Internal Medicine; Visit Provider Internal Medicine
DX: A41.89 Other specified sepsis (principal); G82.20 Paraplegia, unspecified; Z68.41 Body mass index [BMI] 40.0-44.9, adult; N30.00 Acute cystitis without hematuria; J06.9 Acute upper respiratory infection, unspecified; R65.20 Severe sepsis without septic shock; B97.81 Human metapneumovirus as the cause of diseases classified elsewhere; R09.02 Hypoxemia; M19.90 Unspecified osteoarthritis, unspecified site; M50.30 Other cervical disc degeneration, unspecified cervical region; M51.36 Other intervertebral disc degeneration, lumbar region; G89.4 Chronic pain syndrome; E11.65 Type 2 diabetes mellitus with hyperglycemia; F32.9 Major depressive disorder, single episode, unspecified; J44.9 Chronic obstructive pulmonary disease, unspecified; E66.01 Morbid (severe) obesity due to excess calories; E78.5 Hyperlipidemia, unspecified; I10 Essential (primary) hypertension; M48.061 Spinal stenosis, lumbar region without neurogenic claudication; M81.0 Age-related osteoporosis without current pathological fracture; K21.9 Gastro-esophageal reflux disease without esophagitis; Z87.891 Personal history of nicotine dependence; F41.9 Anxiety disorder, unspecified; D64.9 Anemia, unspecified; Z79.84 Long term (current) use of oral hypoglycemic drugs
CPT/HCPCS: 71045; 80053; 81001; 82962; 83605; 85025; 87040; 87086; 87449; 87633; 87804; 87807; 93005; 94640; 99251; 99285; J7030; P9612; A4216; G0463

== ENCOUNTER 2020-09-17 17:03 | Inpatient (IN) | payer MEDICARE, MEDICAID, SELFPAY ==
[2019-10-18 09:20] VITALS: BMI 39.2
[2020-09-17] VITALS (9 sets, daily range): BP systolic 102–134; BP diastolic 60–71; PULSE 61–75; RESP 14–18; TEMP 35.7–36.7; O2SAT 94–99; BMI 37.1; BMI 35.3
--- NOTE | 2020-09-17 17:35 | RAD_ITS ---
STUDY: X-RAY CHEST REASON FOR EXAM: Female, 60 years old. Dyspnea. Complains of severe back pain. Laboratory suggests new onset renal failure. TECHNIQUE: Single AP portable view of the chest. COMPARISON: 10/19/2019. FINDINGS: The lungs are clear and expanded. There is no demonstrated pleural abnormality. Normal size heart. Normal mediastinum and calvin. Normal visualized pulmonary arteries. Normal visualized aortic arch and descending thoracic aorta. Again seen is evidence of rodding of the thoracic spine. Normal visualized ribs, clavicles, and shoulders. There is no demonstrated abnormality of the visualized soft tissue structures of the upper abdomen. RAD/Chest 1 View (Portable) IMPRESSION: No acute cardiopulmonary disease or major interval change. Electronically Signed: Mike Boles DO at 19:24 EST Tel [phone], Service support ,
--- NOTE | 2020-09-17 17:36 | EKG12_ITS ---
Test Reason : ABNLABS Blood Pressure : / mmHG Vent. Rate : 073 BPM Atrial Rate : 073 BPM P-R Int : 164 ms QRS Dur : 090 ms QT Int : 392 ms P-R-T Axes : 049 050 033 degrees QTc Int : 431 ms Normal sinus rhythm Normal ECG Confirmed by DIANDRA COPPOLA, CRISSY ([id number]), assistant film editor WILLIE MAY ([id number]) on 09/21/2020 9:57:52 AM Referred By: RACHELL Confirmed By:JUAN JOSE JIM MD
--- NOTE | 2020-09-17 17:42 | ED.DCSUM_ITS ---
History of Present Illness Chief Complaint: Abn Labs Informant: Patient, Family, [employer] Narrative: 60-year-old female tells me that she is having renal failure. She tells me that she went saw her pain management doctor a few days ago was noted to be very somnolent so they lowered her pain medication which is made her chronic back pain worse and wanted to be seen by primary care. Primary care saw her ordered blood work and she tells me they called today stating that her kidneys were kaushal ling. Any other specifics are not able to be obtained from the patient. Her daughter tells me that last week she fell and struck her face but that swelling is improving and she seems to be doing okay from that standpoint. Daughter is a bit unsure if her somnolence started at that time or before the fall. Patient states that she feels confused and lethargic. - Past Medical History (1) Age-related osteoporosis without current pathological fracture Status: Chronic (2) Anemia Status: Chronic (3) Anxiety Status: Chronic (4) COPD (chronic obstructive pulmonary disease) Status: Chronic (5) Chronic low back pain Status: Chronic (6) Diabetes mellitus type 2, uncontrolled, without complications Status: Chronic (7) GERD without esophagitis Status: Chronic (8) HLD (hyperlipidemia) Status: Chronic (9) HTN (hypertension) Status: Chronic (10) Hypothyroidism Status: Chronic (11) Major depressive disorder Status: Chronic (12) Morbid obesity Status: Chronic (13) Neuromuscular scoliosis Status: Chronic Past Medical History - Allergies and Home Meds Allergies/Adverse Reactions: Allergies NSAIDS (Non-Steroidal Anti-Inflamma Allergy (Verified 09/17/20 19:58) GASTRIC BYPASS trazodone Adverse Reaction (Verified 09/17/20 19:58) Other migraine Surgical History: - - Cholecystectomy, bilateral oophorectomy most recently 03/07/18 secondary to complex ovarian cyst with postoperative diagnosis left ovarian dermoid cyst with ventral hernia as well as suprapubic preperitoneal abdominal wall mass with bilateral tubes, ovaries and cytological washings sent, Cristopher-en-Y, right knee arthroscopic surgery, cervical back surgery March 2017, recent lumbar back surgery December 2017. Lives: With Family Smoking Status: Former smoker Drugs: None - Family History Maternal Family History: Family History (Last Updated 02/26/18 @ 16:13 by Kristie Collins) Father Diabetes Hypertension Myocardial infarction Alcoholism Brother Myocardial infarction Alcoholism Mother CVA (cerebral vascular accident) Family History: Reports: Diabetes, High Cholesterol, Heart Disease, Hypertension Paternal Family History: Family History (Last Updated 02/26/18 @ 16:13 by Kristie Collins) Father Diabetes Hypertension Myocardial infarction Alcoholism Brother Myocardial infarction Alcoholism Mother CVA (cerebral vascular accident) Family History: Reports: Diabetes, High Cholesterol, Heart Disease, Hypertension Review of Systems General: Reports: Malaise. Denies: Chills, Fever, Sweats Eyes: Denies: Visual changes - bilaterally, Diplopia ENT: Denies: Rhinorrhea, Sore throat Cardiovascular: Denies: Chest pain, Palpitations Respiratory: Denies: Dyspnea, Cough, Dyspnea on exertion Gastrointestinal: Denies: Abdominal pain, Nausea, Vomiting, Diarrhea, Melena, Hematochezia Genitourinary: Reports: Dysuria. Denies: Hematuria, Frequency Musculoskeletal: Reports: Back pain. Denies: Extremity Pain Skin: Denies: Rash, Wounds Neurological: Reports: - - Somnolence. Denies: Headache, Weakness, Numbness Psych: Reports: Depression Physical Exam Vital Signs/Narrative: Vital Signs Temp Pulse Resp BP Pulse Ox 09/17/20 17:09 96.2 F L 71 14 134/71 H 96 09/17/20 17:04 96.2 F L 71 14 134/71 H 96 Inital Vital Signs reviewed: Yes General: Well nourished, Well developed, Obese - The patient's severe morbid obesity does limit my ability to perform a competent and full examination because of her inability to have good range of motion., No Acute Distress Head: Normocephalic, Atraumatic Eyes: Perrl, EOMI ENT: Moist mucous membranes, No rhinorrhea Neck: Supple, Nontender Cardiovascular: Regular rate, Regular rhythm, No murmurs Respiratory: No distress, CTA bilaterally, Chest nontender Abdomen: Soft, Nontender, Nondistended, Normal bowel sounds Extremities: Nontender, Edema - 1+ bilaterally Skin: Normal color, No rash Neurological: Alert, Oriented x3, Cranial nerves II-XII grossly intact, Normal Strength, Normal Sensation, - - Patient is alert and oriented x3 but often garble's the ends of her sentences but that could be because she is turning away to watch TV. Psychological: Normal affect, Normal Mood Diagnostic/Tx/Re-eval Clinical Impression(s) from Imaging Studies Chest X-Ray 09/17/20 17:35 IMPRESSION: No acute cardiopulmonary disease or major interval change. Electronically Signed: Mike Boles DO at 19:24 EST Tel [phone], Service support , Brain CT 09/17/20 18:51 IMPRESSION: Normal unenhanced CT scan of the brain. Electronically Signed: Mike Boles DO at 19:23 EST Tel [phone], Service support , Laboratory Last Values WBC 7.4 K/mm3 (4.4-11.0) 09/17/20 18:02 RBC 3.75 M/mm3 (4.2-5.4) L 09/17/20 18:02 Hgb 10.9 g/dL (12.0-15.0) L 09/17/20 18:02 Hct 34.7 % (37-47) L 09/17/20 18:02 MCV 92.5 fL (81-99) 09/17/20 18:02 MCH 29.1 pg (27.0-32.0) 09/17/20 18:02 MCHC 31.4 g/dL (32-36) L 09/17/20 18:02 RDW Std Deviation 47.3 fl (35.1-43.9) H 09/17/20 18:02 RDW Coeff of Jarrod 13.9 % (11.6-14.6) 09/17/20 18:02 Plt Count 197 K/mm3 (150-450) 09/17/20 18:02 MPV 11.1 fl (6.2-12.0) 09/17/20 18:02 Immature Gran % (Auto) 0.700 % (0.0-0.9) 09/17/20 18:02 Neut % (Auto) 50.1 % (47-70) 09/17/20 18:02 Lymph % (Auto) 40.1 % (19-41) 09/17/20 18:02 Casey % (Auto) 5.7 % (0-10) 09/17/20 18:02 Eos % (Auto) 2.9 % (0-5) 09/17/20 18:02 Baso % (Auto) 0.5 % (0-1) 09/17/20 18:02 Absolute Neuts (auto) 3.7 X10^3/uL (2.0-7.7) 09/17/20 18:02 Absolute Lymphs (auto) 2.95 X10^3/uL (0.83-4.51) 09/17/20 18:02 Nucleated RBC % 0 % (0-5) 09/17/20 18:02 PT 13.7 SECONDS (11.7-14.9) 09/17/20 18:02 INR 1.1 09/17/20 18:02 APTT 29.6 Seconds (24.1-36.2) 09/17/20 18:02 Specimen Type ART 09/17/20 20:25 Sample Site R Radial 09/17/20 20:25 pH 7.33 (7.35-7.45) L 09/17/20 20:25 Bicarbonate Actual 21.3 mmol/L (22-26) L 09/17/20 20:25 Total CO2 23 mmol/L 09/17/20 20:25 Base Excess -5 mmol/L (-2 to +2) L 09/17/20 20:25 O2 Saturation 95 % (95-99) 09/17/20 20:25 O2 % 21 09/17/20 20:25 ABG pCO2 41.0 mmHg (35-45) 09/17/20 20:25 ABG pO2 81 mmHG (75-100) 09/17/20 20:25 [place] Test Positive 09/17/20 20:25 Respiration Rate 18 09/17/20 20:25 Sodium 140 mmol/L (136-145) 09/17/20 18:02 Potassium 4.8 mmol/L (3.5-5.1) 09/17/20 18:02 Chloride 113 mmol/L (98-107) H 09/17/20 18:02 Carbon Dioxide 20.0 mmol/L (21.0-32.0) L 09/17/20 18:02 Anion Gap 7 (5-15) 09/17/20 18:02 BUN 62 mg/dL (7-18) H 09/17/20 18:02 Creatinine 1.50 mg/dL (0.55-1.02) H 09/17/20 18:02 Estim Creat Clear Calc 37.80 ml/min 09/17/20 18:02 Est GFR (MDRD) Af Amer 46 mL/min (>60) L 09/17/20 18:02 Est GFR (MDRD) Non-Af 38 mL/min (>60) L 09/17/20 18:02 BUN/Creatinine Ratio 41.3 RATIO (10-20) H 09/17/20 18:02 Glucose 114 mg/dL (74-106) H 09/17/20 18:02 Calcium 10.1 mg/dL (8.5-10.1) 09/17/20 18:02 Total Bilirubin 0.30 mg/dL (0.20-1.00) 09/17/20 18:02 Direct Bilirubin 0.06 mg/dL (0.00-0.30) 09/17/20 18:02 AST 15 U/L (15-37) 09/17/20 18:02 ALT 26 U/L (13-56) 09/17/20 18:02 Alkaline Phosphatase 123 U/L (45-117) H 09/17/20 18:02 Troponin I < 0.015 ng/mL (<0.045) 09/17/20 18:02 Total Protein 7.0 g/dL (6.4-8.2) 09/17/20 18:02 Albumin 3.4 g/dL (3.2-5.0) 09/17/20 18:02 Globulin 3.6 g/dL (2.2-4.2) 09/17/20 18:02 Lipase 130 U/L (73-393) 09/17/20 18:02 Urine Color Yellow (Yellow) 09/17/20 18:31 Urine Clarity Clear (Clear) 09/17/20 18: Urine pH 5.0 (5.0 - 8.0) 09/17/20 18: Ur Specific [place] 1.015 (1.002-1.030) 09/17/20 18:31 Urine Protein Negative mg/dl (Negative) 09/17/20 18: Urine Glucose (UA) Normal mg/dl (Normal) 09/17/20 18:31 Urine Ketones Negative mg/dl (Negative) 09/17/20 18:31 Urine Occult Blood Negative /ul (Negative) 09/17/20 18:31 Urine Nitrite Negative (Negative) 09/17/20 18:31 Urine Bilirubin Negative mg/dL (Negative) 09/17/20 18:31 Urine Urobilinogen Normal mg/dl (Normal) 09/17/20 18:31 Ur Leukocyte Esterase 25 /ul (Negative) H 09/17/20 18:31 Urine RBC 0 SEEN /hpf (0-5) 09/17/20 18:31 Urine WBC 0 SEEN /hpf (0-5) 09/17/20 18:31 Ur Squamous Epith Cells 0 SEEN /hpf (5-10) 09/17/20 18:31 Urine Bacteria 0 SEEN /hpf (None Seen) 09/17/20 18:31 Urine Mucus 0 SEEN /hpf (<or=2+) 09/17/20 18:31 Urine Opiates Screen NEGATIVE (< 300 ng/mL) 09/17/20 18: Urine Methadone Screen NEGATIVE (< 300 ng/mL) 09/17/20 18:31 Ur Barbiturates Screen NEGATIVE (< 200 ng/mL) 09/17/20 18:31 Ur Phencyclidine Scrn NEGATIVE (< 25 ng/mL) 09/17/20 18:31 Ur Amphetamines Screen NEGATIVE (<1000 ng/mL) 09/17/20 18: U Methamphetamin-MDMA NEGATIVE (< 500 ng/mL) 09/17/20 18:31 U Benzodiazepines Scrn NEGATIVE (< 200 ng/mL) 09/17/20 18:31 Urine Cocaine Screen NEGATIVE (< 300 ng/mL) 09/17/20 18:31 U Cannabinoids Screen POSITIVE (< 50 ng/mL) H 09/17/20 18:31 Ur Drug Screen Comment 09/17/20 18:31 - EKG Initial EKG Interpretation: Sinus Rhythm - EKG demonstrates a normal sinus rhythm at a rate of 73 bpm without concerning features of ACS or ectopy. - Medical Decision Making Patient received IV fluids. I do not see evidence of renal failure her creatinine is 1.5 she most likely is dehydrated with a BUN of 60. Patient altered mental status. She was told to cut back on her pain medications which apparently she did not do until last night. She is also been using cannabis. Interesting that the tox screen does not show opiates. Patient will be observed overnight we can address her medications and hydrate her. ED Disposition - Plan for ED Patient: Disposition: Acute Care Hospital [facility]
[2020-09-17 18:16] LABS: Absolute Lymphocyte Count 2.95 X10^3/uL (0.83-4.51); Absolute Neutrophil Count 3.7 X10^3/uL (2.0-7.7); Basophil# 0.04 X10^3/uL; Basophil% 0.5 % (0-1); Eosinophil# 0.21 X10^3/uL; Eosinophils% 2.9 % (0-5); Hematocrit 34.7 % (37-47); Hemoglobin 10.9 g/dL (12.0-15.0); Lymphocyte # 2.95 X10^3/ul (4.0); Lymphocyte % 40.1 % (19-41); Mean Corp Hgb Conc 31.4 g/dL (32-36); Mean Corpuscular Hgb 29.1 pg (27.0-32.0); Mean Corpuscular Volume 92.5 fL (81-99); Mean Platelet Vol. 11.1 fl (6.2-12.0); Monocyte# 0.42 X10^3/uL; Monocyte% 5.7 % (0-10); NRBC Flagged by Analyzer 0 % (0-5); Neutrophil # 3.68 X10^3/uL (2.7-7.7); Neutrophil % 50.1 % (47-70); Platelet Count 197 K/mm3 (150-450); RBC Distribution Width CV 13.9 % (11.6-14.6); RBC Distribution Width SD 47.3 fl (35.1-43.9); Red Blood Count 3.75 M/mm3 (4.2-5.4); White Blood Count 7.4 K/mm3 (4.4-11.0)
[2020-09-17 18:24] LABS: International Normalized Ratio 1.1; Prothrombin Time (Protime)PT. 13.7 SECONDS (11.7-14.9)
[2020-09-17 18:25] LABS: Partial Thromboplast Time 29.6 Seconds (24.1-36.2)
[2020-09-17 18:30] LABS: AST(SGOT) 15 U/L (15-37); Alanine Aminotransfer ALT/SGPT 26 U/L (13-56); Albumin, Serum 3.4 g/dL (3.2-5.0); Alkaline Phosphatase 123 U/L (45-117); Anion Gap 7 (5-15); BUN 62 mg/dL (7-18); BUN/Creat Ratio 41.3 RATIO (10-20); Bilirubin, Direct 0.06 mg/dL (0.00-0.30); Calcium,Total 10.1 mg/dL (8.5-10.1); Chloride 113 mmol/L (98-107); EST Glomerular Filtration Rate 38 mL/min (>60); Est Glom Filt Rate - Afr Amer 46 mL/min (>60); Globulin 3.6 g/dL (2.2-4.2); Glucose 114 mg/dL (74-106); Lipase 130 U/L (73-393); Potassium 4.8 mmol/L (3.5-5.1); Sodium Level 140 mmol/L (136-145)
[2020-09-17 18:37] LABS: Bacteria 0 SEEN /hpf (None Seen); Mucous, Urine 0 SEEN /hpf (<or=2+); Red Blood Cells-Urine 0 SEEN /hpf (0-5); Squamous Epithelial Cells - UA 0 SEEN /hpf (5-10); White Blood Cells 0 SEEN /hpf (0-5)
[2020-09-17 18:40] LABS: Color, Urine Yellow (Yellow); Glucose, Dipstick Normal (Normal); Ketone-Dipstick Negative (Negative); Leukocyte Esterase-Dipstick 25 /ul (Negative); Nitrite-Dipstick Negative (Negative); Occult Blood-Urine Negative /ul (Negative); Protein-Dipstick Negative (Negative); Specific Gravity, Urine 1.015 (1.002-1.030); Urine Bilirubin Dipstick Negative (Negative); Urine Clarity Clear (Clear); Urine Urobilinogen Normal (Normal)
--- NOTE | 2020-09-17 18:51 | CT_ITS ---
STUDY: CT BRAIN WITHOUT CONTRAST REASON FOR EXAM: Female, 60 years old. Altered mental status. RADIATION DOSAGE (If Supplied By Facility): CTDIvol = ( 44.99 ) mGy, DLP = ( 796.11 ) mGycm TECHNIQUE: Transaxial CT imaging of the brain was performed without administration of intravenous contrast material. Individualized dose optimization techniques were used for this CT. COMPARISON: CT of the head, 10/05/2011. FINDINGS: Normal soft tissue structures. Normal calvarium. Normal size ventricles and extra-axial spaces for the patient''s age. Normal white matter tracts of the cerebral hemispheres. Normal basal ganglia and thalami. Normal brainstem. Normal cerebellum. There is no intracranial hemorrhage. There are no findings of an acute ischemic infarction. Normal visualized paranasal sinuses. CT/Brain/Head without Contrast IMPRESSION: Normal unenhanced CT scan of the brain. Electronically Signed: Mike Boles DO at 19:23 EST Tel [phone], Service support ,
[2020-09-17] MEDS: 0.9% Normal Saline 1,000 ML 999 ML IV (19:34)
--- NOTE | 2020-09-17 19:51 | HP.PCM_ITS ---
Problem List (1) Intractable low back pain Status: Acute (2) Encephalopathy acute Status: Acute (3) Major depressive disorder Status: Chronic Qualifiers: Major depression recurrence: unspecified whether recurrent Major depression episode severity: unspecified (4) Anxiety Status: Chronic (5) GERD without esophagitis Status: Chronic (6) Chronic cluster headache, not intractable Status: Chronic (7) Hypothyroidism Status: Chronic Qualifiers: Hypothyroidism type: unspecified Qualified Code(s): E03.9 - Hypothyroidism, unspecified (8) COPD (chronic obstructive pulmonary disease) Status: Chronic Qualifiers: COPD type: unspecified COPD Qualified Code(s): J44.9 - Chronic obstructive pulmonary disease, unspecified (9) Spinal stenosis, lumbar region without neurogenic claudication Status: Chronic (10) Tobacco use disorder Status: Chronic (11) Morbid obesity Status: Chronic (12) HTN (hypertension) Status: Chronic Qualifiers: Hypertension type: essential hypertension Qualified Code(s): I10 - Essential (primary) hypertension (13) HLD (hyperlipidemia) Status: Chronic Qualifiers: Hyperlipidemia type: pure hypercholesterolemia Qualified Code(s): E78.00 - Pure hypercholesterolemia, unspecified; E78.0 - Pure hypercholesterolemia (14) Dysthymic disorder Status: Chronic (15) Diabetes mellitus type 2, uncontrolled, without complications Status: Chronic History of Present Illness Date of Admission: 09/17/20 Chief Complaint: Intractable back pain, abnormal labs The patient is a 60 y/o F w/ PMHx: Chronic anemia, Chronic lumbar back pain with several prior back surgeries w/ spinal stenosis without neurogenic claudication with associated paraplegia wheelchair bound, Anxiety and Depression, Chronic COPD, Obesity, HTN, HLD Cluster headaches, Chronic constipation, Hypothyroidism, Former Tobacco use, ? Diabetes mellitus type II who presents to the [facility] ED on 09/17/20 with recent evaluation per Dr. Comer with concerns per him for notable sedation therefore her oxycodone/percocet regimen was de-escalated with re- evaluation per her PCP 09/16/20 with routine labs obtained called today with reported renal failure but likely has been having poor oral intake and recent fall the week prior. Discussed frankly with patient and she notes she is continuing to use Percocets at a greater rate than recommended as well as the higher dose of the long-acting narcotic and has just barely transition the evening prior to the lower recommended dose. She also notes she has been eating a significant amount of CBD Gummies secondary to discomfort. She notes since her last lumbar back injection she has been having left hip pain and worsening lumbar back pain. Plain film of the back noted 09/03/2020 with chronic changes only. Work-up in the ED included T 96.2 temporally, heart rate 71, BP 134/71, respiratory rate 14, 96% room air, CBC with WBC 7.4, hemoglobin 10.9, platelet 187 without marked shift, unremarkable coags, CMP with chloride 113, common oxide 20, BUN/creatinine 62/1.50, glucose 114, alk phos 123, troponin less than 0.015, lipase 130, urinalysis unremarkable, chest x-ray with no acute cardiopulmonary findings, CT of the brain with no acute intracranial findings, EKG was sinus rhythm with no acute evidence of ischemia. Discussed with ED physician and decision to obtain ABG which was not marked appearing and urine drug screen negative for everything except cannabis and patient does note that she has been using CBD Gummies. Past Medical History Past Medical History (Chronic Problems): Chronic Problems (Last Updated 10/18/19 @ 08:[address] Bret Kevin, DO) Complex ovarian cyst (Chronic) cea and ca125 ordered Major depressive disorder (Chronic) Anxiety (Chronic) Constipation (Chronic) GERD without esophagitis (Chronic) Chronic cluster headache, not intractable (Chronic) Age-related osteoporosis without current pathological fracture (Chronic) Primary generalized (osteo)arthritis (Chronic) Other intervertebral disc degeneration, lumbar region (Chronic) Hypothyroidism (Chronic) Anemia (Chronic) COPD (chronic obstructive pulmonary disease) (Chronic) Muscle weakness (Chronic) Spinal stenosis, lumbar region without neurogenic claudication (Chronic) Neuromuscular scoliosis (Chronic) Chronic low back pain (Chronic) Paraplegia (Chronic) Tobacco use disorder (Chronic) Morbid obesity (Chronic) HTN (hypertension) (Chronic) HLD (hyperlipidemia) (Chronic) Dysthymic disorder (Chronic) Diabetes mellitus type 2, uncontrolled, without complications (Chronic) Chronic Airway Obstruction NEC (Chronic) Medical History: Medical History (Last Updated 10/18/19 @ 08:[address] Bret Kevin, DO) Major depressive disorder (Chronic) F32.9 Anxiety (Chronic) F41.9 Constipation (Chronic) K59.00 GERD without esophagitis (Chronic) K21.9 Chronic cluster headache, not intractable (Chronic) G44.029 Age-related osteoporosis without current pathological fracture (Chronic) M81.0 Primary generalized (osteo)arthritis (Chronic) M15.0 Other intervertebral disc degeneration, lumbar region (Chronic) M51.36 Hypothyroidism (Chronic) E03.9 Anemia (Chronic) D64.9 COPD (chronic obstructive pulmonary disease) (Chronic) J44.9 Muscle weakness (Chronic) M62.81 Spinal stenosis, lumbar region without neurogenic claudication (Chronic) M48.061 Neuromuscular scoliosis (Chronic) M41.40 Chronic low back pain (Chronic) M54.5, G89.29 Paraplegia (Chronic) G82.20 Allergies NSAIDS (Non-Steroidal Anti-Inflamma Allergy (Verified 10/18/19 06:03) GASTRIC BYPASS trazodone Adverse Reaction (Verified 10/18/19 06:03) Other migraine Home Medications: Ambulatory Orders Medication Instructions Recorded Calcium Citrate/Vitamin D3 1 ea PO BID 04/09/16 [Calcium Citrate-Vit D3 Tablet] Biotin 10,000 mcg PO DAILY 02/16/18 Ferrous Gluconate 325 mg PO DAILY 02/16/18 Gabapentin [Neurontin] 600 mg PO BID 02/16/18 Topiramate [Topamax] 25 mg PO BID 02/16/18 [id number]-[id number]-vcyrmm tablet 1 tab PO DAILY 02/26/18 Lorazepam [Ativan] 1 mg PO BID PRN PRN #10 tab 03/30/18 Oxycodone HCl/Acetaminophen 1 ea PO BID PRN PRN 12/20/18 [Percocet 5-325 mg Tablet] baclofen 10 mg tablet 10 mg PO Q6H PRN PRN tab 03/05/19 gabapentin 300 mg capsule 900 mg PO QHS cap 03/05/19 meloxicam 15 mg tablet 15 mg PO DAILY tab 03/05/19 Atorvastatin Calcium [Lipitor] 20 mg PO QHS 08/08/19 Oxycodone Myristate [Xtampza ER] 27 mg PO BID 10/18/19 Polyethylene Glycol 3350 17 gm PO DAILY 10/18/19 Albuterol Sulfate [Albuterol 2 puff INHALATION Q4H PRN 09/17/20 Sulfate Hfa] Buspirone HCl 15 mg PO TID PRN 09/17/20 Fluoxetine HCl [Prozac] 10 mg PO DAILY 02/25/21 Hydrochlorothiazide [Hctz] 25 mg PO DAILY 09/17/20 Levothyroxine Sodium [Synthroid] 150 mcg PO DAILY 09/17/20 Metformin HCl 1,000 mg PO BID 09/17/20 Pantoprazole Sodium [Protonix] 40 mg PO BID PRN 09/17/20 Surgical History: Surgical History (Last Updated 02/26/18 @ 16:12 by Kristie Collins) D&C H/O gastric bypass Z98.84 History of cholecystectomy Z98.890, Z90.49 Hydradenitis L73.2 removal-multiple S/P arthroscopic knee surgery Z98.890 S/P lumbar spine operation Z98.890 s/p nerve spine surgery s/p upper back surgery skin graft Surgical History: - - Cholecystectomy, bilateral oophorectomy most recently 03/07/18 secondary to complex ovarian cyst with postoperative diagnosis left ovarian dermoid cyst with ventral hernia as well as suprapubic preperitoneal abdominal wall mass with bilateral tubes, ovaries and cytological washings sent, Cristopher-en-Y, right knee arthroscopic surgery, cervical back surgery March 2017, recent lumbar back surgery December 2017. 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 Lives: With Family Smoking Status: Current every day smoker - Currently started smoking again, currently 1/4 pack cigarette tobacco usage daily. Tobacco Use: Cigarettes Alcohol: None Drugs: - - Patient uses CBD Gummies which she does admit she uses excessively. - *Family History Maternal Family History: Family History (Last Updated 02/26/18 @ 16:13 by Kristie Collins) Father Diabetes Hypertension Myocardial infarction Alcoholism Brother Myocardial infarction Alcoholism Mother CVA (cerebral vascular accident) History Items: Diabetes, High Cholesterol, Heart Disease, Hypertension Paternal Family History: Family History (Last Updated 02/26/18 @ 16:13 by Kristie Collins) Father Diabetes Hypertension Myocardial infarction Alcoholism Brother Myocardial infarction Alcoholism Mother CVA (cerebral vascular accident) History Items: Diabetes, High Cholesterol, Heart Disease, Hypertension Review of Systems Constitutional: Reports: Anorexia, Malaise, Weakness, Fatigue. Denies: Chills, Fever, Weight Change HEENT: Denies: Head Aches, Sinus Congestion, Sinus Drainage Cardiovascular: Reports: Edema. Denies: Chest Pain, Palpitations Respiratory: Denies: Cough, Shortness of breath at rest, Sputum production Gastrointestinal: Reports: Constipation. Denies: Abdominal Pain, Nausea, Vomiting Genitourinary: Denies: Dysuria Musculoskeletal: Reports: Back Pain, Joint Pain, Leg Pain. Denies: Joint Tenderness Skin: Denies: Rash, Wounds Neurological: Reports: Focal weakness - Patient with chronic lower extremity debility secondary to chronic back pain and stenosis., - - Increased lethargy.. Denies: Numbness, Tingling Psychiatric: Reports: Anxiety, Depression. Denies: Homicidal Ideations, Suicidal Ideations Hematologic/ Lymphatic: Reports: Anemia. Denies: Easy Bruising, Easy Bleeding VTE Information - Inpt Only VTE Present on Admission: No VTE Mechan Device Prophylaxis: SCD's VTE Pharm Prophylaxis ordered?: Yes Subjective: Patient laying in the ED bed, does not appear in any distress but notes she has significant lumbar back pain and left hip pain, certainly able to carry on a conversation appropriately but easily fatigued. Objective: Physical Examination: General: awake, alert, oriented x [address], month, recent events, remains cooperative, laying in the ED bed, is fatigued but answering questions appropriately and honestly stating that she is not de-escalating her medications and is using excess amounts of CBD Gummies as well secondary to severity of her back and left hip discomfort. Skin: normal color, turgor, no icterus, cyanosis. HEENT: AT/NC, EOMI, PERRLA, dry MM, no carotid bruits or JVD noted. Lungs: Diminished breath sounds bilaterally, distant, moderate effort, no evidence of any distress, no obvious rales, rhonchi or wheezing. Heart: Regular rate and rhythm; no gallop, rub audible. Abdomen: soft, morbidly obese, NTTP, no obvious distention but difficult to discern given habitus, distant hypoactive bowel sounds, unable to discern HSM secondary to habitus. Extremities: no cyanosis or clubbing, bilateral lower extremity ankle edema, not markedly pitting. Neurological: patient awake, alert, oriented as noted; cognitive function mildly decreased from baseline likely secondary to severity of medications and CBD Gummies; pupils equally reactive to light and accomodation; cranial nerves II-XI I grossly normal, moving all 4 extremities but does have significant debilities to her lower extremities which is chronic secondary to chronic back pain, strength accordingly severely globally decreased. Psychiatric: affect appears flat, fatigued, no acute evidence of depressive or anxiety feelings. - Physical Exam Vitals/I&O's: Vital Signs Temp Pulse Resp BP Pulse Ox 96.2 F L 62 16 105/60 96 09/17/20 17:09 09/17/20 19:28 09/17/20 19:28 09/17/20 19:28 09/17/20 19:28 Oxygen Delivery Method Room Air Weight: 230 lb 6.129 oz Body Mass Index (BMI) 37.1 Finger Stick Blood Glucose 130 Laboratory Results 09/17/20 18:02: WBC 7.4, RBC 3.75 L, Hgb 10.9 L, Hct 34.7 L, MCV 92.5, MCH 29.1, MCHC 31.4 L, RDW Std Deviation 47.3 H, RDW Coeff of Jarrod 13.9, Plt Count 197, MPV 11.1, Immature Gran % (Auto) 0.700, Neut % (Auto) 50.1, Lymph % (Auto) 40.1, [place] % (Auto) 5.7, Eos % (Auto) 2.9, Baso % (Auto) 0.5, Absolute Neuts (auto) 3.7, Absolute Lymphs (auto) 2.95, Nucleated RBC % 0 09/17/20 18:02: PT 13.7, INR 1.1, APTT 29.6 09/17/20 18:02: Sodium 140, Potassium 4.8, Chloride 113 H, Carbon Dioxide 20.0 L , Anion Gap 7, BUN 62 H, Creatinine 1.50 H, Estim Creat Clear Calc 37.80, Est GFR (MDRD) Af Amer 46 L, Est GFR (MDRD) Non-Af 38 L, BUN/Creatinine Ratio 41.3 H , Glucose 114 H, Calcium 10.1, Total Bilirubin 0.30, Direct Bilirubin 0.06, AST 15, ALT 26, Alkaline Phosphatase 123 H, Troponin I < 0.015, Total Protein 7.0, Albumin 3.4, Globulin 3.6, Lipase 130 09/17/20 18:31: Urine Color Yellow, Urine Clarity Clear, Urine pH 5.0, Ur Specific [place] 1.015, Urine Protein Negative, Urine Glucose (UA) Normal, Urine Ketones Negative, Urine Occult Blood Negative, Urine Nitrite Negative, Urine Bilirubin Negative, Urine Urobilinogen Normal, Ur Leukocyte Esterase 25 H, Urine RBC 0 SEEN, Urine WBC 0 SEEN, Ur Squamous Epith Cells 0 SEEN, Urine Bacteria 0 SEEN, Urine Mucus 0 SEEN Current Medications Sodium Chloride () 1,000 mls @ 999 mls/hr IV .Q1H1M ONE Stop: 09/17/20 20:22 Last Admin: 09/17/20 19:34 Dose: 999 mls/hr Documented by: Assessment/Plan All Active Problems (Last Updated 10/18/19 @ 08:[address] Bret Kevin, DO) Intractable low back pain (Acute) Encephalopathy acute (Acute) Cystitis (Acute) Ingrowing toenail (Resolved) Urinary frequency (Acute) Nonproductive cough (Acute) Fever and chills (Acute) The patient is a 60 y/o F w/ PMHx: Chronic anemia, Chronic lumbar back pain with several prior back surgeries w/ spinal stenosis without neurogenic claudication with associated paraplegia wheelchair bound, Anxiety and Depression, Chronic COPD, Obesity, HTN, HLD Cluster headaches, Chronic constipation, Hypothyroidism, Former Tobacco use, ? Diabetes mellitus type II who presents to the [facility] ED on 09/17/20 with recent evaluation per Dr. Comer with concerns per him for notable sedation therefore her oxycodone/percocet regimen was de-escalated with re- evaluation per her PCP 09/16/20 with routine labs obtained called today with reported renal failure but likely has been having poor oral intake and recent fall the week prior. 1. Acute on Chronic lumbar back pain and L Hip Pain: Patient with recent medication alterations secondary to sedate status and renal function however from discussion she is really not transition to these medications yet but notes worsened since most recent injection specifically noting that after she got off the table she felt as though something had occurred. Patient does have underlying history of spinal stenosis without neurogenic claudication with associated paraplegia, now with worsening pain and VLADISLAV. Will maintain on fall precautions, continue baclofen to avoid withdrawal, renally dosed gabapentin regimen, place lidocaine patches, initiate Medrol Dosepak, will transition to a lower dose of her narcotic therapy with twice daily Percocet regimen as needed and lower dose of the long-acting unless her renal function mandates transition to a shorter acting regimen. 2. Acute kidney injury: Suspect likely from poor oral intake with hypovolemia secondary to pain and ongoing usage of medications affecting her renal function. Admission BUN/Cr 62/1.50, prior baseline creatinine noted to be 0.7-1.0, most recently 10/18/2019 1.15. Will judiciously hydrate, hold nephrotoxic medications and repeat chemistry in AM. If no improvement would plan FeNa assessment as well as renal ultrasound if appropriate. 3. Lethargy, Mild Encephalopathy, suspect iatrogenic: Patient with recent falls, sedation with pain management decrease of her regimen however she has yet to do this per discussion frankly and has been using significant mount of CBD Gummies, CT head without acute findings. Discussed that unfortunately the lethargy is possibly secondary to her poor renal function in the setting of chronic pain medications in addition to significant amount of CBD gummy intake. Will alter things as noted above and continue to closely monitor. 4. Chronic anemia, iron deficiency: We will continue oral iron supplementation, admission hemoglobin 10.9, stable, trend. 5. Hypothyroidism: Continue home synthroid regimen. 6. Chronic COPD: We will maintain on ATC duonebs, PRN albuterol, HOB, IS parameters. 7. Anxiety and depression: We will continue patient home BuSpar regimen. 8. History of cluster headaches: We will continue patient home Topamax regimen. 9. Tobacco Abuse: Encouraged cessation, inpatient consultation per RT, NR if desired. 10. Hypertension: Given VLADISLAV as noted holding patient lisinopril regimen, in the interim will maintain on IV hydralazine as needed. 11. Hyperlipidemia: Continue home statin regimen. 12. GERD: We will maintain on PPI. 13. ? Diabetes mellitus type II: Patient noted to be on low-dose metoprolol only once daily, most recent hemoglobin A1c 03/05/2018 5.0%, will repeat given unclear history, hold oral Metformin, maintain on ADA diet and if appropriate add Accu-Cheks with insulin sliding scale. 14. DVT prophylaxis: SCDs, Lovenox. OBSV E&M: 37571 Initial observation care L3
[2020-09-17 20:31] LABS: Allen Test Positive; Base Excess -5 mmol/L (-2 to +2); Bicarbonate 21.3 mmol/L (22-26); Blood Gas Specimen Type ART; FI02 21; PO2 81 mmHG (75-100); RR 18; SITE R Radial; SO2 95 % (95-99); Total Carbon Dioxide 23 mmol/L; pH 7.33 (7.35-7.45)
[2020-09-17 20:42] LABS: Amphetamine Urine VISTA NEGATIVE (<1000 ng/mL); Barbiturate Urine VISTA NEGATIVE (< 200 ng/mL); Benzodiazepine Urine VISTA NEGATIVE (< 200 ng/mL); Cocaine Urine VISTA NEGATIVE (< 300 ng/mL); Ecstacy Urine VISTA NEGATIVE (< 500 ng/mL); Methadone Urine VISTA NEGATIVE (< 300 ng/mL); PCP Urine VISTA NEGATIVE (< 25 ng/mL); THC Urine VISTA POSITIVE (< 50 ng/mL); Vista UDS pH Range 5
[2020-09-17 22:43] LABS: Magnesium 1.8 mg/dL (1.6-2.6)
[2020-09-17] MEDS: 0.9% Normal Saline 1,000 ML 125 ML IV (22:51)
[2020-09-17] MEDS: 0.9% Saline Lock 10 ML Syringe IV (22:57)
[2020-09-17] MEDS: Topiramate 25 MG Tablet PO (22:58)
[2020-09-17] MEDS: Atorvastatin Calcium 20 MG Tablet PO (22:59)
[2020-09-17] MEDS: Gabapentin 300 MG Capsule 900 MG PO (22:59)
[2020-09-17] MEDS: oxyCODONE CR 15 MG Tablet PO (23:01)
[2020-09-17 23:35] LABS: Bedside Glucose 99 mg/dL (70-110)
[2020-09-18] VITALS (11 sets, daily range): BP systolic 101–146; BP diastolic 54–71; PULSE 71–84; RESP 16–18; TEMP 36.4–37; O2SAT 94–99
[2020-09-18] MEDS: oxyCODONE 5 MG Tablet PO ×2 (04:31→16:46)
--- NOTE | 2020-09-18 04:52 | RAD_ITS ---
STUDY: X-RAY - PELVIS AND LEFT HIP REASON FOR EXAM: Female, 60 years old. L hip pain TECHNIQUE: 3 views of the pelvis and hip. COMPARISON: None. FINDINGS: There is a non-specific bowel gas pattern. Normal visualized soft tissue structures. Surgical hardware in the lower lumbar spine and across the SI joints free of complication There is narrowing with cortical sclerosis and osteophyte formation of the sacroiliac joint consistent with degenerative osteoarthritic changes. Normal bilateral superior and inferior pubic rami. Normal pubic symphysis. Normal bilateral ischial tuberosities. Normal visualized femoral head. Normal acetabulum. There is moderate articular joint space narrowing of the hip. Similar arthritic changes noted in the right hip. RAD/HIP, UNI W/ Pelvis 2-3 Views IMPRESSION: Age consistent hip and SI joint arthrosis. No demonstrated fracture or suspicious osseous lesion. However, hip and pelvic fractures in patients of this age can be subtle, if there is strong clinical suspicion of a fracture, recommend further evaluation with CT Surgical hardware in the lower lumbar spine and across the SI joints free of complication Electronically Signed: Johnny Hood MD at 8:22 EST , Service support ,
[2020-09-18 05:18] LABS: Absolute Lymphocyte Count 2.69 X10^3/uL (0.83-4.51); Basophil# 0.03 X10^3/uL; Basophil% 0.5 % (0-1); Eosinophil# 0.19 X10^3/uL; Hemoglobin 9.7 g/dL (12.0-15.0); Lymphocyte # 2.69 X10^3/ul (4.0); Lymphocyte % 42.6 % (19-41); Mean Corp Hgb Conc 30.3 g/dL (32-36); Mean Corpuscular Hgb 28.9 pg (27.0-32.0); Mean Corpuscular Volume 95.2 fL (81-99); Mean Platelet Vol. 11.2 fl (6.2-12.0); Monocyte# 0.37 X10^3/uL; Monocyte% 5.9 % (0-10); NRBC Flagged by Analyzer 0 % (0-5); Neutrophil % 47.4 % (47-70); Platelet Count 158 K/mm3 (150-450); RBC Distribution Width CV 14.1 % (11.6-14.6); RBC Distribution Width SD 48.9 fl (35.1-43.9); Red Blood Count 3.36 M/mm3 (4.2-5.4); White Blood Count 6.3 K/mm3 (4.4-11.0)
[2020-09-18 05:40] LABS: AST(SGOT) 12 U/L (15-37); Alanine Aminotransfer ALT/SGPT 22 U/L (13-56); Alkaline Phosphatase 109 U/L (45-117); Anion Gap 5 (5-15); BUN 50 mg/dL (7-18); BUN/Creat Ratio 39.4 RATIO (10-20); Calcium,Total 9.5 mg/dL (8.5-10.1); Chloride 116 mmol/L (98-107); Creatinine, Serum 1.27 mg/dL (0.55-1.02); EST Glomerular Filtration Rate 46 mL/min (>60); Est Glom Filt Rate - Afr Amer 55 mL/min (>60); Estimated Creatinine Clearance 44.65 ml/min; Glucose 92 mg/dL (74-106); Potassium 4.6 mmol/L (3.5-5.1); Sodium Level 143 mmol/L (136-145)
[2020-09-18] MEDS: Levothyroxine 150 MCG Tablet PO (06:25)
[2020-09-18] MEDS: 0.9% Normal Saline 1,000 ML 125 ML IV ×3 (06:39→21:53)
[2020-09-18 06:40] LABS: Bedside Glucose 101 mg/dL (70-110)
[2020-09-18 07:13] LABS: Hemoglobin A1c 5.9 % (3.8-5.6)
[2020-09-18] MEDS: Ferrous Gluconate 324 MG Tablet PO (08:59)
[2020-09-18] MEDS: Gabapentin 600 MG Tablet PO ×2 (08:59→16:46)
[2020-09-18] MEDS: oxyCODONE CR 15 MG Tablet PO ×2 (08:59→21:50)
[2020-09-18] MEDS: FLUoxetine 10 MG Capsule PO (09:00)
[2020-09-18] MEDS: Topiramate 25 MG Tablet PO ×2 (09:01→21:53)
[2020-09-18] MEDS: Enoxaparin 40 MG/0.4 ML Syringe SC (09:02)
[2020-09-18] MEDS: Lidocaine 5% Patch 3 PATCH TOPICAL (09:04)
--- NOTE | 2020-09-18 09:24 | CASEMGMT ---
Social Work Note SHARITA received call from Mariela Montano CM at [facility]. SHARITA updated Mariela on pt's admission to [facility]. Mariela states pt has aide services, [employer] and [employer] button. Mariela asked for discharge paperwork to be faxed once pt is discharged. Mitra Gallegos EDUCATIONAL TECHNICIAN, [employer]
[2020-09-18] MEDS: Acetaminophen 325 MG Tablet 650 MG PO (11:29)
[2020-09-18] MEDS: Baclofen 10 MG Tablet PO ×2 (11:31→19:58)
[2020-09-18 11:40] LABS: Bedside Glucose 110 mg/dL (70-110)
--- NOTE | 2020-09-18 14:06 | CASEMGMT ---
Addendum entered by Aliya Gibson 09/18/20 14:39: TODD MEZA in to discuss GO form with pt. RN DERRICK explained GO form, pt voiced understanding. Pt signed GO form and filed in chart. Pt provided with copy of signed GO form. Pt had no further questions or concerns at this time. Original Note: TODD MEZA Face to Face with patient for initial transition planning/care coordination assessment. TODD MEZA introduced self and role at [facility]. Patient lying in bed, alert and oriented. Patient willing to participate in assessment and is able to answer all questions appropriately. Patient tearful stating that she wants to find out what is causing her pain. She is aware that Dr. Comer will be consulting. Care providers, pharmacy, and demographics verified. Patient wishes to discharge home, denies need for home health at this time. Patient states he has no further needs or concerns at this time. CM to follow for discharge planning needs that may arise. PCP: Olvin Specialists: Souleymane bronson mgmt Preferred Pharmacy: [facility] and [facility] [place] Insurance: My [facility] Prescription Benefit: yes Living Will/HPOA: yes, dtr LNOK: dtr Living Arrangements: Patient lives in a 2 story apt. She uses the first floor. She has a ramp to enter the home. Her dtr lives with her. Patient reports having an aide through her my care 4 days a week and her dtr assists with ADL's other times when aide is not there. Transportation: [employer] DME/HHC: Patient reports having a hospital bed, trapeze, motorized w/c, BSC, sliding board. Denies need for further DME. She previously has had [facility]HS, denies need at wi. Patient reports having been in 4 SNF's- [facility], [facility], [facility] and [facility]. Disposition Plan: Pt wishes to return home with family support, follow up plans in place.
--- NOTE | 2020-09-18 14:26 | PCM.PN.HOSP ---
Patient Problems: Active and Suspected Problems (Last Updated 10/18/19 @ 08:[address] Bret Kevin, DO) Intractable low back pain (Acute) Encephalopathy acute (Acute) Subjective: Patient seen and examined. Admitted with a complaint of intractable pain. She was also sent in because of abnormal labs done by her PCP. Labs showed VLADISLAV with creatinine of 1.50. Patient has a history of chronic back pain with multiple back surgeries and spinal stenosis as well as associated paraplegia. Patient sees Dr. Borden and states that pain meds dosage was recently reduced because it was thought that her dosage was too high. Patient states that her pain is unbearable and she is barely able to move or do anything because of the pain. She is not eating or drinking because of the pain is things that is what resulted in her VLADISLAV. Patient was tearful today because she said she had been living with pain for a long time and she could not cope anymore and did not think that her current dose of pain meds was helping. Remained hemodynamically stable and creatinine is trended down to 1.27. Vitals/I&O's: Vital Signs Temp Pulse Resp BP Pulse Ox 98 F 81 16 108/54 L 95 09/18/20 09:53 09/18/20 10:59 09/18/20 09:53 09/18/20 09:53 09/18/20 09:53 Oxygen Delivery Method Room Air Weight: 218 lb 11.177 oz Body Mass Index (BMI) 35.3 Finger Stick Blood Glucose 130 Intake and Output for Last 24 Hours 09/16/20 09/17/20 09/18/20 23:59 23:59 23:59 Intake Total 1050 / 1050 1225 / 1225 Output Total 600 / 600 1550 / 1550 Balance 450 / 450 -325 / -325 General: Alert, - - very tearful HEENT: Atraumatic, PERRLA, EOMI, Normocephalic Oral: Moist Mucosa Neck: Supple, No JVD, Negative Carotid Bruits Lungs: Clear to auscultation, Normal air movement Cardiovascular: Regular rate, Regular Rhythm, Normal S1, Normal S2, No murmurs Abdomen: Bowel Sounds Present, Soft, Non Tender Extremities: No clubbing, No cyanosis, No edema, Capillary Refill Less than 3 Seconds Skin: No rashes, No breakdown Musculoskeletal: No Tenderness to Palpation of Joints or Extremities Lymphatic: No Cervical, Supraclavicular, or Inguinal Adenopathy Neurological: Cranial nerves II-XII grossly intact, Neuro grossly intact, Motor Exam 5/5 strength throughout Psych/Mental Status: Normal Affect, Appropriate, Alert and oriented to time, place, person, mood and affect Laboratory Results 09/17/20 18:02: WBC 7.4, RBC 3.75 L, Hgb 10.9 L, Hct 34.7 L, MCV 92.5, MCH 29.1, MCHC 31.4 L, RDW Std Deviation 47.3 H, RDW Coeff of Jarrod 13.9, Plt Count 197, MPV 11.1, Immature Gran % (Auto) 0.700, Neut % (Auto) 50.1, Lymph % (Auto) 40.1, [place] % (Auto) 5.7, Eos % (Auto) 2.9, Baso % (Auto) 0.5, Absolute Neuts (auto) 3.7, Absolute Lymphs (auto) 2.95, Nucleated RBC % 0 09/17/20 18:02: PT 13.7, INR 1.1, APTT 29.6 09/17/20 18:02: Sodium 140, Potassium 4.8, Chloride 113 H, Carbon Dioxide 20.0 L, Anion Gap 7, BUN 62 H, Creatinine 1.50 H, Estim Creat Clear Calc 37.80, Est GFR (MDRD) Af Amer 46 L, Est GFR (MDRD) Non-Af 38 L, BUN/Creatinine Ratio 41.3 H, Glucose 114 H, Calcium 10.1, Total Bilirubin 0.30, Direct Bilirubin 0.06, AST 15, ALT 26, Alkaline Phosphatase 123 H, Troponin I < 0.015, Total Protein 7.0, Albumin 3.4, Globulin 3.6, Lipase 130 09/17/20 18:02: Magnesium 1.8 09/17/20 18:31: Urine Color Yellow, Urine Clarity Clear, Urine pH 5.0, Ur Specific [place] 1.015, Urine Protein Negative, Urine Glucose (UA) Normal, Urine Ketones Negative, Urine Occult Blood Negative, Urine Nitrite Negative, Urine Bilirubin Negative, Urine Urobilinogen Normal, Ur Leukocyte Esterase 25 H, Urine RBC 0 SEEN, Urine WBC 0 SEEN, Ur Squamous Epith Cells 0 SEEN, Urine Bacteria 0 SEEN, Urine Mucus 0 SEEN 09/17/20 18:31: Urine Opiates Screen NEGATIVE, Urine Methadone Screen NEGATIVE, Ur Barbiturates Screen NEGATIVE, Ur Phencyclidine Scrn NEGATIVE, Ur Amphetamines Screen NEGATIVE, U Methamphetamin-MDMA NEGATIVE, U Benzodiazepines Scrn NEGATIVE, Urine Cocaine Screen NEGATIVE, U Cannabinoids Screen POSITIVE H, Ur Drug Screen Comment 09/17/20 20:25: Specimen Type ART, Sample Site R Radial, pH 7.33 L, Bicarbonate Actual 21.3 L, Total CO2 23, Base Excess -5 L, O2 Saturation 95, O2 % 21, ABG pCO2 41.0, ABG pO2 81, [place] Test Positive, Respiration Rate 18 09/17/20 22:56: POC Glucose 99 09/18/20 04:20: WBC 6.3, RBC 3.36 L, Hgb 9.7 L, Hct 32.0 L, MCV 95.2, MCH 28.9, MCHC 30.3 L, RDW Std Deviation 48.9 H, RDW Coeff of Jarrod 14.1, Plt Count 158, MPV 11.2, Immature Gran % (Auto) 0.600, Neut % (Auto) 47.4, Lymph % (Auto) 42.6 H, [place] % (Auto) 5.9, Eos % (Auto) 3.0, Baso % (Auto) 0.5, Absolute Neuts (auto) 3.0, Absolute Lymphs (auto) 2.69, Nucleated RBC % 0 09/18/20 04:20: Sodium 143, Potassium 4.6, Chloride 116 H, Carbon Dioxide 22.0, Anion Gap 5, BUN 50 H, Creatinine 1.27 H, Estim Creat Clear Calc 44.65, Est GFR (MDRD) Af Amer 55 L, Est GFR (MDRD) Non-Af 46 L, BUN/Creatinine Ratio 39.4 H, Glucose 92, Calcium 9.5, Total Bilirubin 0.30, AST 12 L, ALT 22, Alkaline Phosphatase 109, Total Protein 6.0 L, Albumin 3.0 L, Globulin 3.0, Albumin/Globulin Ratio 1.0 09/18/20 04:20: Hemoglobin A1c 5.9 H 09/18/20 06:29: POC Glucose 101 09/18/20 11:25: POC Glucose 110 Diagnostic Data Chest X-Ray 09/17/20 17:35 IMPRESSION: No acute cardiopulmonary disease or major interval change. Electronically Signed: Mike Boles at 19:24 EST Tel [phone], Service support , Brain CT 09/17/20 18:51 IMPRESSION: Normal unenhanced CT scan of the brain. Electronically Signed: Mike BolesDO at 19:23 EST Tel [phone], Service support , Hip/Pelvis X-Ray 09/18/20 04:52 IMPRESSION: Age consistent hip and SI joint arthrosis. No demonstrated fracture or suspicious osseous lesion. However, hip and pelvic fractures in patients of this age can be subtle, if there is strong clinical suspicion of a fracture, recommend further evaluation with CT Surgical hardware in the lower lumbar spine and across the SI joints free of complication Electronically Signed: Johnny Hood MD at 8:22 EST , Service support , Current Medications Acetaminophen (Acetaminophen 325 Mg Tablet) 650 mg PO Q6H PRN PRN PRN Reason: Pain Score 1-10/Temp > 100.7 F Last Admin: 09/18/20 11:29 Dose: 650 mg Documented by: Al Hydroxide/Mg Hydroxide (Mag Hydrox/Al Hydrox/Simeth 30 Ml Udc) 30 ml PO Q6H PRN PRN PRN Reason: Gastric Burning Albuterol Sulfate (Albuterol 2.5 Mg/3 Ml Vial.Neb.) 2.5 mg INHALATION Q2H PRN PRN PRN Reason: Dyspnea, wheezing Atorvastatin Calcium (Atorvastatin Calcium 20 Mg Tablet) 20 mg PO QHS DONNY Last Admin: 09/17/20 22:59 Dose: 20 mg Documented by: Baclofen (Baclofen 10 Mg Tablet) 10 mg PO Q8H PRN PRN PRN Reason: back spasms Last Admin: 09/18/20 11:31 Dose: 10 mg Documented by: Buspirone HCl (Buspirone 15 Mg Tablet) 15 mg PO TID PRN PRN PRN Reason: mood Enoxaparin Sodium (Enoxaparin 40 Mg/0.4 Ml Syringe) 40 mg SC DAILY [facility] Last Admin: 09/18/20 09:02 Dose: 40 mg Documented by: Ferrous Gluconate ([facility]errous Gluconate 324 Mg Tablet) [facility] Last Admin: 09/18/20 08:59 Dose: 324 mg Documented by: Fluoxetine HCl (Fluoxetine 10 Mg Capsule) 10 mg PO DAILY [facility] Last Admin: 09/18/20 09:00 Dose: 10 mg Documented by: Gabapentin (Gabapentin 300 Mg Capsule) 900 mg PO QHS [facility] Last Admin: 09/17/20 22:59 Dose: 900 mg Documented by: Gabapentin (Gabapentin 600 Mg Tablet) [facility] Last Admin: 09/18/20 08:59 Dose: 600 mg Documented by: Guaifenesin (Guaifenesin 10 Ml Udc (200mg/10ml)) 20 ml PO Q4H PRN PRN PRN Reason: COUGH Hydralazine HCl (Hydralazine 20 Mg/Ml Vial) 10 mg IV Q4H PRN PRN PRN Reason: SBP > 160 Sodium Chloride () 1,000 mls @ 125 mls/hr IV .Q8H [facility] Last Admin: 09/18/20 06:39 Dose: 125 mls/hr Documented by: Insulin Human Lispro (Insulin Lispro 100 Unit/Ml Insuln.Pen) [facility]; Protocol Last Admin: 09/18/20 11:27 Dose: Not Given Documented by: Levothyroxine Sodium (Levothyroxine 150 Mcg Tablet) 150 mcg PO DAILY@0600 [facility] Last Admin: 09/18/20 06:25 Dose: 150 mcg Documented by: Lidocaine (Lidocaine 5% Patch) 3 patch TOPICAL DAILY [facility]; Protocol Last Admin: 09/18/20 09:04 Dose: 3 patch Documented by: Lorazepam (Lorazepam 1 Mg Tablet) 1 mg PO BID PRN PRN PRN Reason: ANXIETY Magnesium Hydroxide (Magnesium Hydroxide 30 Ml Udc) 30 ml PO DAILY PRN PRN PRN Reason: Constipation Melatonin (Melatonin 3 Mg Tablet) 3 mg PO QHS PRN PRN PRN Reason: INSOMNIA Methylprednisolone (Methylprednisolone Dosepak 4 Mg Box) 24 mg PO 2200 [facility]; Taper Stop: 09/23/20 08:59 Nicotine (Nicotine 7 Mg Patch) 7 mg TD DAILY [facility] Last Admin: 09/18/20 09:01 Dose: 7 mg Documented by: Ondansetron HCl (Ondansetron 4 Mg/2 Ml Vial) 4 mg IV Q8H PRN PRN PRN Reason: NAUSEA/VOMITING Oxycodone HCl (Oxycodone 5 Mg Tablet) 5 mg PO BID PRN PRN PRN Reason: PAIN 6-10/10 Last Admin: 09/18/20 04:31 Dose: 5 mg Documented by: Oxycodone HCl (Oxycodone Cr 15 Mg Tablet) 15 mg PO BID [facility] Last Admin: 09/18/20 08:59 Dose: 15 mg Documented by: Pantoprazole Sodium (Pantoprazole Sodium 40 Mg Tablet) 40 mg PO BID PRN PRN PRN Reason: stomach Polyethylene Glycol (Polyethylene Glycol 3350 17 Gm Packet) 17 gm PO DAILY [facility] Last Admin: 09/18/20 09:21 Dose: Not Given Documented by: Prochlorperazine Edisylate (Prochlorperazine 10 Mg/2 Ml Vial) 5 mg IV Q4H PRN PRN PRN Reason: Breakthrough nausea/vomiting Psyllium Hydrophilic Mucilloid (Psyllium 1 Packet) 1 packet PO DAILY PRN PRN PRN Reason: Constipation Senna/Docusate Sodium (Senna/Docusate Sodium 1 Tablet) 2 tablet PO BID PRN PRN PRN Reason: Constipation Sodium Chloride (0.9% Saline Lock 10 Ml Syringe) 10 - 40 ml IV UD PRN PRN Reason: SALINE FLUSH Last Admin: 09/17/20 22:57 Dose: 10 ml Documented by: Throat Lozenges (Benzocaine/Menthol 1 Lozenge) 1 lozenge MUCOUS MEM Q2H PRN PRN PRN Reason: SORE THROAT Topiramate (Topiramate 25 Mg Tablet) 25 mg PO BID [facility] Last Admin: 09/18/20 09:01 Dose: 25 mg Documented by: STROKE Vital Signs/Narrative: Vital Signs Pulse 09/18/20 10:59 81 Medical Necessity - Tobacco Use Smoking Status: Former smoker Tobacco Use: Cigarettes Assessment/Plan All Active Problems (Last Updated 10/18/19 @ 08:[address] Bret Kevin, DO) Intractable low back pain (Acute) Encephalopathy acute (Acute) Cystitis (Acute) Ingrowing toenail (Resolved) Urinary frequency (Acute) Nonproductive cough (Acute) Fever and chills (Acute) #VLADISLAV: Is trending down with IV fluid hydration. Continue gentle hydration with IV fluids. This is likely due to decreased intake he states has not been eating or drinking well due to pain. #Acute on chronic back pain and left hip pain Sees Dr. Comer and had dose of medication was recently decreased. Dr. Comer consulted but he is out of the office till Monday. on tylenol, baclofen and gabapentin as well as lidocaine patch and ativan adn medrol dose pack also on oxycodone and oxycontin, but she is still complaining of a lot of pain PT/OT consult patient doesnt think she can go home with her being in so much pain. #Hypothyroidism: on synthroid #Chronic anemia: on oral iron supplementation #Chronic COPD: on breathing treatment with bronchodilators #Anxiety and depression: on Buspar #History fo cluster headache: on topamax #Nicotine dependence: counseled to quit #Hyperlipidemia: on statin #?diabetes mellitus: Recent A1c is 5.9, on 09/18/2020. Continue Metformin. Insulin sliding scale. Checks AC at bedtime. DVT Prophylaxis: Lovenox Disposition: Dr Comer her pain doctor is away till Monday. Patient may need to stay till Monday to be evaluated by Dr Comer for a possible pain shot. Inpatient E&M: 39984 Subs Hosp L2
[2020-09-18] MEDS: busPIRone 15 MG TABLET PO (15:07)
[2020-09-18 16:55] LABS: Bedside Glucose 123 mg/dL (70-110)
[2020-09-18] MEDS: MethylPREDNISolone DosePak 4 MG BOX PO (21:50)
[2020-09-18] MEDS: Atorvastatin Calcium 20 MG Tablet PO (21:52)
[2020-09-18] MEDS: Gabapentin 300 MG Capsule 900 MG PO (21:52)
[2020-09-18 22:11] LABS: Bedside Glucose 110 mg/dL (70-110)
[2020-09-19] VITALS (7 sets, daily range): BP systolic 124–157; BP diastolic 62–79; PULSE 55–68; RESP 16–18; TEMP 36.9–37.5; O2SAT 93–98
[2020-09-19] MEDS: 0.9% Normal Saline 1,000 ML 125 ML IV ×3 (06:04→23:15)
[2020-09-19] MEDS: Levothyroxine 150 MCG Tablet PO (06:36)
[2020-09-19 06:45] LABS: Bedside Glucose 153 mg/dL (70-110)
[2020-09-19] MEDS: Acetaminophen 325 MG Tablet 650 MG PO ×2 (08:17→14:53)
[2020-09-19 08:18] LABS: Absolute Lymphocyte Count 1.22 X10^3/uL (0.83-4.51); Basophil# 0.01 X10^3/uL; Basophil% 0.2 % (0-1); Eosinophil# 0.02 X10^3/uL; Eosinophils% 0.4 % (0-5); Hematocrit 30.9 % (37-47); Hemoglobin 9.8 g/dL (12.0-15.0); Lymphocyte # 1.22 X10^3/ul (4.0); Lymphocyte % 27.1 % (19-41); Mean Corp Hgb Conc 31.7 g/dL (32-36); Mean Corpuscular Hgb 28.8 pg (27.0-32.0); Mean Corpuscular Volume 90.9 fL (81-99); Mean Platelet Vol. 11.6 fl (6.2-12.0); Monocyte# 0.19 X10^3/uL; Monocyte% 4.2 % (0-10); NRBC Flagged by Analyzer 0 % (0-5); Neutrophil # 3.02 X10^3/uL (2.7-7.7); Neutrophil % 67.2 % (47-70); Platelet Count 187 K/mm3 (150-450); RBC Distribution Width CV 13.8 % (11.6-14.6); RBC Distribution Width SD 45.8 fl (35.1-43.9); White Blood Count 4.5 K/mm3 (4.4-11.0)
[2020-09-19] MEDS: Enoxaparin 40 MG/0.4 ML Syringe SC (08:18)
[2020-09-19] MEDS: oxyCODONE CR 15 MG Tablet PO ×2 (08:18→21:43)
[2020-09-19] MEDS: Pantoprazole Sodium 40 MG Tablet PO (08:18)
[2020-09-19] MEDS: Ferrous Gluconate 324 MG Tablet PO (08:18)
[2020-09-19] MEDS: Baclofen 10 MG Tablet PO ×2 (08:19→17:13)
[2020-09-19] MEDS: Gabapentin 600 MG Tablet PO ×2 (08:19→17:13)
[2020-09-19] MEDS: Topiramate 25 MG Tablet PO ×2 (08:19→21:45)
[2020-09-19] MEDS: oxyCODONE 5 MG Tablet PO ×2 (08:19→20:30)
[2020-09-19] MEDS: Senna/Docusate Sodium 1 Tablet 2 TABLET PO (08:19)
[2020-09-19] MEDS: busPIRone 15 MG TABLET PO ×3 (08:20→21:46)
[2020-09-19] MEDS: MethylPREDNISolone DosePak 4 MG BOX PO ×4 (08:20→21:43)
[2020-09-19] MEDS: FLUoxetine 10 MG Capsule PO (08:20)
[2020-09-19 08:43] LABS: ALB/GLOB Ratio 0.9 RATIO (0.9-2.4); AST(SGOT) 9 U/L (15-37); Alanine Aminotransfer ALT/SGPT 18 U/L (13-56); Albumin, Serum 2.8 g/dL (3.2-5.0); Alkaline Phosphatase 111 U/L (45-117); Anion Gap 7 (5-15); BUN 30 mg/dL (7-18); BUN/Creat Ratio 31.2 RATIO (10-20); Calcium,Total 9.1 mg/dL (8.5-10.1); Chloride 116 mmol/L (98-107); Creatinine, Serum 0.96 mg/dL (0.55-1.02); EST Glomerular Filtration Rate 63 mL/min (>60); Est Glom Filt Rate - Afr Amer 76 mL/min (>60); Estimated Creatinine Clearance 59.07 ml/min; Globulin 3.1 g/dL (2.2-4.2); Glucose 139 mg/dL (74-106); Potassium 4.6 mmol/L (3.5-5.1); Protein, Total 5.9 g/dL (6.4-8.2); Sodium Level 143 mmol/L (136-145)
--- NOTE | 2020-09-19 09:05 | MRI_ITS ---
STUDY: MR PELVIS WITHOUT CONTRAST REASON FOR EXAM: Female, 60 years old. left hip pain TECHNIQUE: Standardized fat and water weighted pulse sequences were obtained in all 3 orthogonal planes. COMPARISON: None. FINDINGS: Farrell catheter within the collapsed bladder. Normal visualized small intestine. Normal visualized colon. There is no pelvic fluid. There is no pelvic mass lesion or lymphadenopathy. Normal visualized pelvic arteries. 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 Correlation with bone scan would be useful to evaluate for other lesions. Edema of the right adductor musculature consistent with strain. Normal abdominal wall. MRI/Pelvis (Routine) IMPRESSION: 1. Normal unenhanced MRI of the pelvis. 2. Farrell catheter within the collapsed bladder. 3. 1.5 cm marrow replacing lesion with geographic margins of the proximal shaft of the right femur and correlation with bone scan would be useful to evaluate for other lesions. Electronically Signed: Junior Gee MD at 8:25 EST Tel , Service support ,
[2020-09-19] MEDS: 0.9% Saline Lock 10 ML Syringe IV (10:18)
[2020-09-19] MEDS: HYDROmorphone Inj 0.2 MG/ML SYRINGE IV (10:18)
[2020-09-19] MEDS: Ondansetron 4 MG/2 ML Vial IV (10:18)
--- NOTE | 2020-09-19 11:20 | PN_ITS ---
Patient Problems: Active and Suspected Problems (Last Updated 10/18/19 @ 08:[address] Bret Keivn, DO) Intractable low back pain (Acute) Encephalopathy acute (Acute) Subjective: Patient seen and examined. She kept on complaining of generalized pain and said she really had pain in her left hip. Patient kept perseverating about how she has always been in pain and does not know what is wrong with her and needs to find out what has been causing her pain all these years. She thinks the pain in her left hip is much worse. Patient is asked for pain medications before she can have physical therapy. She has remained hemodynamically stable though she did have a low-grade fever this morning of 99.5 Fahrenheit. Vitals/I&O's: Vital Signs Temp Pulse Resp BP Pulse Ox 99.5 F H 64 16 136/76 H 97 09/19/20 10:20 09/19/20 10:20 09/19/20 10:20 09/19/20 10:20 09/19/20 10:20 Oxygen Delivery Method Room Air Weight: 222 lb 10.67 oz Body Mass Index (BMI) 35.3 Finger Stick Blood Glucose 130 Intake and Output for Last 24 Hours 09/17/20 09/18/20 09/19/20 23:59 23:59 23:59 Intake Total 1050 / 1050 3429.17 / 3429.17 1539.58 / 1539.58 Output Total 600 / 600 3200 / 3200 550 / 550 Balance 450 / 450 229.17 / 229.17 989.58 / 989.58 General: Alert, - - distressed due to her being in pain HEENT: Atraumatic, PERRLA, EOMI, Normocephalic Oral: Moist Mucosa Neck: Supple, No JVD, Negative Carotid Bruits Lungs: Clear to auscultation, Normal air movement Cardiovascular: Regular rate, Regular Rhythm, Normal S1, Normal S2, No murmurs Abdomen: Bowel Sounds Present, Soft, Non Tender Extremities: No clubbing, No cyanosis, No edema, Capillary Refill Less than 3 Se conds Skin: No rashes, No breakdown Musculoskeletal: No Tenderness to Palpation of Joints or Extremities Lymphatic: No Cervical, Supraclavicular, or Inguinal Adenopathy Neurological: Cranial nerves II-XII grossly intact, Neuro grossly intact, Motor Exam 5/5 strength throughout Psych/Mental Status: distressed due to pain Laboratory Results 09/18/20 11:25: POC Glucose 110 09/18/20 16:38: POC Glucose 123 H 09/18/20 21:49: POC Glucose 110 09/19/20 06:35: POC Glucose 153 H 09/19/20 07:30: WBC 4.5, RBC 3.40 L, Hgb 9.8 L, Hct 30.9 L, MCV 90.9, MCH 28.8, MCHC 31.7 L, RDW Std Deviation 45.8 H, RDW Coeff of Jarrod 13.8, Plt Count 187, MPV 11.6, Immature Gran % (Auto) 0.900, Neut % (Auto) 67.2, Lymph % (Auto) 27.1, [place] % (Auto) 4.2, Eos % (Auto) 0.4, Baso % (Auto) 0.2, Absolute Neuts (auto) 3.0, Absolute Lymphs (auto) 1.22, Nucleated RBC % 0 09/19/20 07:30: Sodium 143, Potassium 4.6, Chloride 116 H, Carbon Dioxide 20.0 L , Anion Gap 7, BUN 30 H, Creatinine 0.96, Estim Creat Clear Calc 59.07, Est GFR (MDRD) Af Amer 76, Est GFR (MDRD) Non-Af 63, BUN/Creatinine Ratio 31.2 H, Glucose 139 H, Calcium 9.1, Total Bilirubin 0.30, AST 9 L, ALT 18, Alkaline Phosphatase 111, Total Protein 5.9 L, Albumin 2.8 L, Globulin 3.1, Albumin/Globulin Ratio 0.9 Current Medications Acetaminophen (Acetaminophen 325 Mg Tablet) 650 mg PO Q6H PRN PRN PRN Reason: Pain Score 1-10/Temp > 100.7 F Last Admin: 09/19/20 08:17 Dose: 650 mg Documented by: Al Hydroxide/Mg Hydroxide (Mag Hydrox/Al Hydrox/Simeth 30 Ml Udc) 30 ml PO Q6H PRN PRN PRN Reason: Gastric Burning Albuterol Sulfate (Albuterol 2.5 Mg/3 Ml Vial.Neb.) 2.5 mg INHALATION Q2H PRN PRN PRN Reason: Dyspnea, wheezing Atorvastatin Calcium (Atorvastatin Calcium 20 Mg Tablet) 20 mg PO QHS [facility] Last Admin: 09/18/20 21:52 Dose: 20 mg Documented by: Baclofen (Baclofen 10 Mg Tablet) 10 mg PO Q8H PRN PRN PRN Reason: back spasms Last Admin: 09/19/20 08:19 Dose: 10 mg Documented by: Buspirone HCl (Buspirone 15 Mg Tablet) 15 mg PO TID PRN PRN PRN Reason: mood Last Admin: 09/19/20 08:20 Dose: 15 mg Documented by: Enoxaparin Sodium (Enoxaparin 40 Mg/0.4 Ml Syringe) 40 mg SC DAILY [facility] Last Admin: 09/19/20 08:18 Dose: 40 mg Documented by: Ferrous Gluconate (Ferrous Gluconate 324 Mg Tablet) [facility] Last Admin: 09/19/20 08:18 Dose: 324 mg Documented by: Fluoxetine HCl (Fluoxetine 10 Mg Capsule) 10 mg PO DAILY [facility] Last Admin: 09/19/20 08:20 Dose: 10 mg Documented by: Gabapentin (Gabapentin 300 Mg Capsule) 900 mg PO QHS [facility] Last Admin: 09/18/20 21:52 Dose: 900 mg Documented by: Gabapentin (Gabapentin 600 Mg Tablet) [facility] Last Admin: 09/19/20 08:19 Dose: 600 mg Documented by: Guaifenesin (Guaifenesin 10 Ml Udc (200mg/10ml)) 20 ml PO Q4H PRN PRN PRN Reason: COUGH Hydralazine HCl (Hydralazine 20 Mg/Ml Vial) 10 mg IV Q4H PRN PRN PRN Reason: SBP > 160 Sodium Chloride () 1,000 mls @ 125 mls/hr IV .Q8H [facility] Last Infusion: 09/19/20 10:23 Dose: 0 mls/hr Documented by: Insulin Human Lispro (Insulin Lispro 100 Unit/Ml Insuln.Pen) 0 unit SC ACHS [facility]; Protocol Last Admin: 09/19/20 06:36 Dose: Not Given Documented by: Levothyroxine Sodium (Levothyroxine 150 Mcg Tablet) 150 mcg PO DAILY@0600 [facility] Last Admin: 09/19/20 06:36 Dose: 150 mcg Documented by: Lidocaine (Lidocaine 5% Patch) 3 patch TOPICAL DAILY [facility]; Protocol Last Admin: 09/18/20 09:04 Dose: 3 patch Documented by: Lorazepam (Lorazepam 1 Mg Tablet) 1 mg PO BID PRN PRN PRN Reason: ANXIETY Magnesium Hydroxide (Magnesium Hydroxide 30 Ml Udc) 30 ml PO DAILY PRN PRN PRN Reason: Constipation Melatonin (Melatonin 3 Mg Tablet) 3 mg PO QHS PRN PRN PRN Reason: INSOMNIA Methylprednisolone (Methylprednisolone Dosepak 4 Mg Box) 4 mg PO 0800,1200,1700 [facility]; Taper Stop: 09/23/20 08:59 Last Admin: 09/19/20 08:20 Dose: 4 mg Documented by: Nicotine (Nicotine 7 Mg Patch) 7 mg TD DAILY [facility] Last Admin: 09/18/20 09:01 Dose: 7 mg Documented by: Ondansetron HCl (Ondansetron 4 Mg/2 Ml Vial) 4 mg IV Q8H PRN PRN PRN Reason: NAUSEA/VOMITING Last Admin: 09/19/20 10:18 Dose: 4 mg Documented by: Oxycodone HCl (Oxycodone 5 Mg Tablet) 5 mg PO BID PRN PRN PRN Reason: PAIN 6-1010 Last Admin: 09/19/20 08:19 Dose: 5 mg Documented by: Oxycodone HCl (Oxycodone Cr 15 Mg Tablet) 15 mg PO BID [facility] Last Admin: 09/19/20 08:18 Dose: 15 mg Documented by: Pantoprazole Sodium (Pantoprazole Sodium 40 Mg Tablet) 40 mg PO BID PRN PRN PRN Reason: stomach Last Admin: 09/19/20 08:18 Dose: 40 mg Documented by: Polyethylene Glycol (Polyethylene Glycol 3350 17 Gm Packet) 17 gm PO DAILY [facility] Last Admin: 09/19/20 08:20 Dose: Not Given Documented by: Prochlorperazine Edisylate (Prochlorperazine 10 Mg/2 Ml Vial) 5 mg IV Q4H PRN PRN PRN Reason: Breakthrough nausea/vomiting Psyllium Hydrophilic Mucilloid (Psyllium 1 Packet) 1 packet PO DAILY PRN PRN PRN Reason: Constipation Senna/Docusate Sodium (Senna/Docusate Sodium 1 Tablet) 2 tablet PO BID PRN PRN PRN Reason: Constipation Last Admin: 09/19/20 08:19 Dose: 2 tablet Documented by: Sodium Chloride (0.9% Saline Lock 10 Ml Syringe) 10 - 40 ml IV UD PRN PRN Reason: SALINE FLUSH Last Admin: 09/19/20 10:18 Dose: 10 ml Documented by: Throat Lozenges (Benzocaine/Menthol 1 Lozenge) 1 lozenge MUCOUS MEM Q2H PRN PRN PRN Reason: SORE THROAT Topiramate (Topiramate 25 Mg Tablet) 25 mg PO BID [facility] Last Admin: 09/19/20 08:19 Dose: 25 mg Documented by: STROKE Vital Signs/Narrative: Vital Signs Temp Pulse Resp BP Pulse Ox 09/19/20 10:20 99.5 F H 64 16 136/76 H 97 Medical Necessity - Tobacco Use Smoking Status: Former smoker Tobacco Use: Cigarettes Assessment/Plan All Active Problems (Last Updated 10/18/19 @ 08:[address] Bret Kevin, DO) Intractable low back pain (Acute) Encephalopathy acute (Acute) Cystitis (Acute) Ingrowing toenail (Resolved) Urinary frequency (Acute) Nonproductive cough (Acute) Fever and chills (Acute) #VLADISLAV: * resolved. * #Acute on chronic back pain and left hip pain * Sees Dr. Comer and had dose of medication was recently decreased. * Dr. Comer consulted but he is out of the office till Monday. * on tylenol, baclofen and gabapentin as well as lidocaine patch and ativan adn medrol dose pack * also on oxycodone and oxycontin, but she is still complaining of a lot of pain * PT/OT consult * will get mri of the left hip today as she is still complaining of pain in left hip #Hypothyroidism: on synthroid #Chronic anemia: on oral iron supplementation #Chronic COPD: on breathing treatment with bronchodilators #Anxiety and depression: on Buspar #History fo cluster headache: on topamax #Nicotine dependence: counseled to quit #Hyperlipidemia: on statin #?diabetes mellitus: Recent A1c is 5.9, on 09/18/2020. Continue Metformin. Insulin sliding scale. Checks AC at bedtime. DVT Prophylaxis: Lovenox Disposition: Dr Comer her pain doctor is away till Monday. Patient to stay till Monday to be evaluated by Dr Comer for a possible pain shot. Inpatient E&M: 71233 Subs Hosp L2
[2020-09-19] MEDS: Lidocaine 5% Patch 3 PATCH TOPICAL (11:55)
[2020-09-19] MEDS: Magnesium Hydroxide 30 ML UDC PO (11:57)
[2020-09-19] MEDS: Insulin Lispro 100 UNIT/ML INSULN.PEN SC (12:01)
[2020-09-19 12:21] LABS: Bedside Glucose 165 mg/dL (70-110)
[2020-09-19 17:21] LABS: Bedside Glucose 127 mg/dL (70-110)
[2020-09-19] MEDS: Gabapentin 300 MG Capsule 900 MG PO (21:44)
[2020-09-19] MEDS: Atorvastatin Calcium 20 MG Tablet PO (21:45)
[2020-09-19] MEDS: LORazepam 1 MG Tablet PO (21:49)
[2020-09-19 21:55] LABS: Bedside Glucose 143 mg/dL (70-110)
[2020-09-20 02:40] VITALS: BP 156/92; PULSE 67; RESP 16; TEMP 36.6; O2SAT 100
[2020-09-20 05:58] LABS: Absolute Neutrophil Count 3.6 X10^3/uL (2.0-7.7); Basophil# 0.02 X10^3/uL; Basophil% 0.3 % (0-1); Eosinophil# 0.04 X10^3/uL; Eosinophils% 0.7 % (0-5); Hematocrit 33.6 % (37-47); Hemoglobin 10.2 g/dL (12.0-15.0); Lymphocyte % 32.5 % (19-41); Mean Corp Hgb Conc 30.4 g/dL (32-36); Mean Corpuscular Hgb 28.4 pg (27.0-32.0); Mean Corpuscular Volume 93.6 fL (81-99); Mean Platelet Vol. 11.5 fl (6.2-12.0); Monocyte# 0.29 X10^3/uL; NRBC Flagged by Analyzer 0 % (0-5); Neutrophil # 3.58 X10^3/uL (2.7-7.7); Neutrophil % 61.2 % (47-70); Platelet Count 207 K/mm3 (150-450); RBC Distribution Width CV 13.9 % (11.6-14.6); RBC Distribution Width SD 47.3 fl (35.1-43.9); Red Blood Count 3.59 M/mm3 (4.2-5.4); White Blood Count 5.9 K/mm3 (4.4-11.0)
[2020-09-20 06:38] LABS: Anion Gap 6 (5-15); BUN 25 mg/dL (7-18); BUN/Creat Ratio 24.8 RATIO (10-20); Calcium,Total 9.1 mg/dL (8.5-10.1); Chloride 115 mmol/L (98-107); Creatinine, Serum 1.01 mg/dL (0.55-1.02); EST Glomerular Filtration Rate 60 mL/min (>60); Est Glom Filt Rate - Afr Amer 72 mL/min (>60); Estimated Creatinine Clearance 56.14 ml/min; Glucose 148 mg/dL (74-106); Potassium 4.7 mmol/L (3.5-5.1); Sodium Level 144 mmol/L (136-145)
[2020-09-20] MEDS: Levothyroxine 150 MCG Tablet PO (06:40)
[2020-09-20] MEDS: 0.9% Normal Saline 1,000 ML 125 ML IV ×3 (06:40→21:19)
[2020-09-20 06:46] LABS: Bedside Glucose 115 mg/dL (70-110)
[2020-09-20 07:49] VITALS: BP 137/75; PULSE 61; RESP 16; TEMP 36.9; O2SAT 97
[2020-09-20] MEDS: Senna/Docusate Sodium 1 Tablet 2 TABLET PO (08:32)
[2020-09-20] MEDS: Baclofen 10 MG Tablet PO ×2 (08:32→16:06)
[2020-09-20] MEDS: busPIRone 15 MG TABLET PO (08:32)
[2020-09-20] MEDS: MethylPREDNISolone DosePak 4 MG BOX PO ×4 (08:33→21:22)
[2020-09-20] MEDS: Ferrous Gluconate 324 MG Tablet PO (08:33)
[2020-09-20] MEDS: Gabapentin 600 MG Tablet PO ×2 (08:34→16:48)
[2020-09-20] MEDS: FLUoxetine 10 MG Capsule PO (08:35)
[2020-09-20] MEDS: Enoxaparin 40 MG/0.4 ML Syringe SC (08:35)
[2020-09-20] MEDS: Topiramate 25 MG Tablet PO ×2 (08:36→21:21)
[2020-09-20] MEDS: Lidocaine 5% Patch 3 PATCH TOPICAL (08:36)
[2020-09-20] MEDS: oxyCODONE 5 MG Tablet PO ×2 (08:44→16:06)
[2020-09-20] MEDS: oxyCODONE CR 15 MG Tablet PO ×2 (10:36→21:20)
[2020-09-20] MEDS: Insulin Lispro 100 UNIT/ML INSULN.PEN SC (11:18)
[2020-09-20 11:31] LABS: Bedside Glucose 171 mg/dL (70-110)
[2020-09-20 14:00] VITALS: BP 156/78; PULSE 65; RESP 18; TEMP 36.9; O2SAT 97
--- NOTE | 2020-09-20 14:47 | CT_ITS ---
STUDY: CT CHEST WITH CONTRAST REASON FOR EXAM: Female, 60 years old. Chronic pain -- marrow replacing lesion in femur; screen for malignancy RADIATION DOSAGE (If Supplied By Facility): CTDIvol = ( 25.87 ) mGy, DLP = ( 3228.98 ) mGycm TECHNIQUE: Transaxial imaging was performed following intravenous administration of IV 100mL Isovue-370. Individualized dose optimization techniques were used for this CT. COMPARISON: None. FINDINGS: There is minimal atelectasis and/or scarring within the mid and lower lungs. There are calcifications of the coronary arteries. Normal mediastinum. Normal hilar regions. Normal enhanced pulmonary arteries. There is atherosclerotic calcification of the aortic arch. There are multilevel pedicle screws and posterior spinal rods within the mid and lower thoracic spine. There are degenerative changes of the thoracic spine. There is a separate dedicated CT report of the abdomen and pelvis. CT/Chest WITH Contrast IMPRESSION: Minimal bilateral atelectasis and/or scarring. Atherosclerosis. Multilevel postsurgical changes of the thoracic spine. Electronically Signed: Nat Kerr MD at 17:15 EST Tel , Service support ,
--- NOTE | 2020-09-20 14:47 | CT_ITS ---
STUDY: CT ABDOMEN AND PELVIS WITH CONTRAST REASON FOR EXAM: Female, 60 years old. 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 IV 100mL Isovue-370 was administered. Sagittal and coronal images were reconstructed. Individualized dose optimization techniques were used for this CT. COMPARISON: 11/15/2018 FINDINGS: There is a separate dedicated CT report of the chest. There is intra and extrahepatic ductal dilatation that appears more pronounced than the prior examination; the common bile duct measures up to 10.6 mm. There are surgical clips in the gallbladder fossa consistent with a prior cholecystectomy. Normal spleen. Normal pancreas. Normal bilateral adrenal glands. Normal right kidney. There is a left renal cyst. There are postsurgical changes of the stomach. Normal small intestine. There is a moderate amount of stool throughout the colon and rectum. The appendix is visualized and appears normal. There is diffuse atherosclerotic calcification of the abdominal aorta, without a demonstrated aneurysm. Normal inferior vena cava. Normal retroperitoneum. There is a STRONG catheter within the urinary bladder. There is bladder wall thickening. There are foci of subcutaneous air along the anterior abdominal wall which may be secondary to prior subcutaneous injections. There are diffuse degenerative changes of the visualized lumbar spine. There is grossly stable multilevel postsurgical changes of the thoracolumbar spine characterized by multilevel pedicle screws and posterior spinal rods. There are postsurgical changes within the sacrum as well. CT/Abdomen/Pelvis WITH Contrast IMPRESSION: Bladder wall thickening concerning for underlying cystitis. Interval worsening of intra and extrahepatic ductal dilatation. Moderate amount of stool throughout the colon and rectum. Atherosclerosis. Electronically Signed: Nat Kerr MD at 17:26 EST Tel , Service support ,
--- NOTE | 2020-09-20 14:53 | PN_ITS ---
Patient Problems: Active and Suspected Problems (Last Updated 10/18/19 @ 08:[address] Bret Kevin, DO) Intractable low back pain (Acute) Encephalopathy acute (Acute) Subjective: Patient seen and examined. She still complains of severe pain in her left hip. She also says she does not think she is able to swallow well and that food chokes up in her throat. Review of systems otherwise negative. Vitals/I&O's: Vital Signs Temp Pulse Resp BP Pulse Ox 98.5 F 65 18 156/78 H 97 09/20/20 14:00 09/20/20 14:00 09/20/20 14:00 09/20/20 14:00 09/20/20 14:00 Oxygen Delivery Method Room Air Weight: 224 lb 13.944 oz Body Mass Index (BMI) 35.3 Finger Stick Blood Glucose 130 Intake and Output for Last 24 Hours 09/18/20 09/19/20 09/20/20 23:59 23:59 23:59 Intake Total 3429.17 / 3429.17 2949.99 / 2949.99 2304.16 / 2304.16 Output Total 3200 / 3200 1800 / 1800 1700 / 1700 Balance 229.17 / 229.17 1149.99 / 1149.99 604.16 / 604.16 General: Alert, - - distressed due to her being in pain HEENT: Atraumatic, PERRLA, EOMI, Normocephalic Oral: Moist Mucosa Neck: Supple, No JVD, Negative Carotid Bruits Lungs: Clear to auscultation, Normal air movement Cardiovascular: Regular rate, Regular Rhythm, Normal S1, Normal S2, No murmurs Abdomen: Bowel Sounds Present, Soft, Non Tender Extremities: No clubbing, No cyanosis, No edema, Capillary Refill Less than 3 Seconds Skin: No rashes, No breakdown Musculoskeletal: No Tenderness to Palpation of Joints or Extremities Lymphatic: No Cervical, Supraclavicular, or Inguinal Adenopathy Neurological: Cranial nerves II-XII grossly intact, Neuro grossly intact, paraplegia Psych/Mental Status: distressed due to pain Laboratory Results 09/19/20 17:11: POC Glucose 127 H 09/19/20 21:42: POC Glucose 143 H 09/20/20 04:45: WBC 5.9, RBC 3.59 L, Hgb 10.2 L, Hct 33.6 L, MCV 93.6, MCH 28.4, MCHC 30.4 L, RDW Std Deviation 47.3 H, RDW Coeff of Jarrod 13.9, Plt Count 207, MPV 11.5, Immature Gran % (Auto) 0.300, Neut % (Auto) 61.2, Lymph % (Auto) 32.5, [place] % (Auto) 5.0, Eos % (Auto) 0.7, Baso % (Auto) 0.3, Absolute Neuts (auto) 3.6, Absolute Lymphs (auto) 1.90, Nucleated RBC % 0 09/20/20 04:45: Sodium 144, Potassium 4.7, Chloride 115 H, Carbon Dioxide 23.0, Anion Gap 6, BUN 25 H, Creatinine 1.01, Estim Creat Clear Calc 56.14, Est GFR (MDRD) Af Amer 72, Est GFR (MDRD) Non-Af 60, BUN/Creatinine Ratio 24.8 H, Glucose 148 H, Calcium 9.1 09/20/20 06:40: POC Glucose 115 H 09/20/20 11:16: POC Glucose 171 H Current Medications Acetaminophen (Acetaminophen 325 Mg Tablet) 650 mg PO Q6H PRN PRN PRN Reason: Pain Score 1-10/Temp > 100.7 F Last Admin: 09/19/20 14:53 Dose: 650 mg Documented by: Al Hydroxide/Mg Hydroxide (Mag Hydrox/Al Hydrox/Simeth 30 Ml Udc) 30 ml PO Q6H PRN PRN PRN Reason: Gastric Burning Albuterol Sulfate (Albuterol 2.5 Mg/3 Ml Vial.Neb.) 2.5 mg INHALATION Q2H PRN PRN PRN Reason: Dyspnea, wheezing Atorvastatin Calcium (Atorvastatin Calcium 20 Mg Tablet) 20 mg PO QHS DONNY Last Admin: 09/19/20 21:45 Dose: 20 mg Documented by: Baclofen (Baclofen 10 Mg Tablet) 10 mg PO Q8H PRN PRN PRN Reason: back spasms Last Admin: 09/20/20 08:32 Dose: 10 mg Documented by: Buspirone HCl (Buspirone 15 Mg Tablet) 15 mg PO TID PRN PRN PRN Reason: mood Last Admin: 09/20/20 08:32 Dose: 15 mg Documented by: Enoxaparin Sodium (Enoxaparin 40 Mg/0.4 Ml Syringe) 40 mg SC DAILY [facility] Last Admin: 09/20/20 08:35 Dose: 40 mg Documented by: Ferrous Gluconate (Ferrous Gluconate 324 Mg Tablet) [facility] Last Admin: 09/20/20 08:33 Dose: 324 mg Documented by: Fluoxetine HCl (Fluoxetine 10 Mg Capsule) 10 mg PO DAILY [facility] Last Admin: 09/20/20 08:35 Dose: 10 mg Documented by: Gabapentin (Gabapentin 300 Mg Capsule) 900 mg PO QHS [facility] Last Admin: 09/19/20 21:44 Dose: 900 mg Documented by: Gabapentin (Gabapentin 600 Mg Tablet) 600 [facility] Last Admin: 09/20/20 08:34 Dose: 600 mg Documented by: Guaifenesin (Guaifenesin 10 Ml Udc (200mg/10ml)) 20 ml PO Q4H PRN PRN PRN Reason: COUGH Hydralazine HCl (Hydralazine 20 Mg/Ml Vial) 10 mg IV Q4H PRN PRN PRN Reason: SBP > 160 Sodium Chloride () 1,000 mls @ 125 mls/hr IV .Q8H [facility] Last Admin: 09/20/20 14:29 Dose: 125 mls/hr Documented by: Insulin Human Lispro (Insulin Lispro 100 Unit/Ml Insuln.Pen) 0 unit SC [facility]; Protocol Last Admin: 09/20/20 11:18 Dose: 1 units Documented by: Levothyroxine Sodium (Levothyroxine 150 Mcg Tablet) 150 mcg PO DAILY@0600 [facility] Last Admin: 09/20/20 06:40 Dose: 150 mcg Documented by: Lidocaine (Lidocaine 5% Patch) 3 patch TOPICAL DAILY [facility]; Protocol Last Admin: 09/20/20 08:36 Dose: 3 patch Documented by: Lorazepam (Lorazepam 1 Mg Tablet) 1 mg PO BID PRN PRN PRN Reason: ANXIETY Last Admin: 09/19/20 21:49 Dose: 1 mg Documented by: Magnesium Hydroxide (Magnesium Hydroxide 30 Ml Udc) 30 ml PO DAILY PRN PRN PRN Reason: Constipation Last Admin: 09/19/20 11:57 Dose: 30 ml Documented by: Melatonin (Melatonin 3 Mg Tablet) 3 mg PO QHS PRN PRN PRN Reason: INSOMNIA Methylprednisolone (Methylprednisolone Dosepak 4 Mg Box) 4 mg PO 0800,1200,1700,2200 [facility]; Taper Stop: 09/23/20 08:59 Last Admin: 09/20/20 12:16 Dose: 4 mg Documented by: Nicotine (Nicotine 7 Mg Patch) 7 mg TD DAILY [facility] Last Admin: 09/20/20 08:35 Dose: 7 mg Documented by: Ondansetron HCl (Ondansetron 4 Mg/2 Ml Vial) 4 mg IV Q8H PRN PRN PRN Reason: NAUSEA/VOMITING Last Admin: 09/19/20 10:18 Dose: 4 mg Documented by: Oxycodone HCl (Oxycodone 5 Mg Tablet) 5 mg PO BID PRN PRN PRN Reason: PAIN 6-05/02 Last Admin: 09/20/20 08:44 Dose: 5 mg Documented by: Oxycodone HCl (Oxycodone Cr 15 Mg Tablet) 15 mg PO BID [facility] Last Admin: 09/20/20 10:36 Dose: 15 mg Documented by: Pantoprazole Sodium (Pantoprazole Sodium 40 Mg Tablet) 40 mg PO BID PRN PRN PRN Reason: stomach Last Admin: 09/19/20 08:18 Dose: 40 mg Documented by: Polyethylene Glycol (Polyethylene Glycol 3350 17 Gm Packet) 17 gm PO DAILY [facility] Last Admin: 09/20/20 08:00 Dose: Not Given Documented by: Prochlorperazine Edisylate (Prochlorperazine 10 Mg/2 Ml Vial) 5 mg IV Q4H PRN PRN PRN Reason: Breakthrough nausea/vomiting Psyllium Hydrophilic Mucilloid (Psyllium 1 Packet) 1 packet PO DAILY PRN PRN PRN Reason: Constipation Senna/Docusate Sodium (Senna/Docusate Sodium 1 Tablet) 2 tablet PO BID PRN PRN PRN Reason: Constipation Last Admin: 09/20/20 08:32 Dose: 2 tablet Documented by: Sodium Chloride (0.9% Saline Lock 10 Ml Syringe) 10 - 40 ml IV UD PRN PRN Reason: SALINE FLUSH Last Admin: 09/19/20 10:18 Dose: 10 ml Documented by: Throat Lozenges (Benzocaine/Menthol 1 Lozenge) 1 lozenge MUCOUS MEM Q2H PRN PRN PRN Reason: SORE THROAT Topiramate (Topiramate 25 Mg Tablet) 25 mg PO BID DONNY Last Admin: 09/20/20 08:36 Dose: 25 mg Documented by: STROKE Vital Signs/Narrative: Vital Signs Temp Pulse Resp BP Pulse Ox 09/20/20 14:00 98.5 F 65 18 156/78 H 97 Medical Necessity - Tobacco Use Smoking Status: Former smoker Tobacco Use: Cigarettes Assessment/Plan All Active Problems (Last Updated 10/18/19 @ 08:[address] Bret Kevin, DO) Intractable low back pain (Acute) Encephalopathy acute (Acute) Cystitis (Acute) Ingrowing toenail (Resolved) Urinary frequency (Acute) Nonproductive cough (Acute) Fever and chills (Acute) #VLADISLAV: * resolved. * #Acute on chronic back pain and left hip pain * Sees Dr. Comer and had dose of medication was recently decreased. * Dr. Comer consulted but he is out of the office till Monday. 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 Discussed with DR Lucio, recommends getting serum protein electrophoresis, check IgA, IgG and IgM levels, kappa lambda light chains, and to get a total body scan and also CT of the abdomen and pelvis to screen for any occult malignancies. * Patient does tell me that after she had her bilateral salpingo-oophorectomy in 2018, she was told she had another lesion in the pelvis. 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 This is as. Surgical notes dated 03/07/[address] Bret Diaz. General surgery-Dr. Marquez was called to see the mass that he examined it laparoscopically and his recommendation was for follow-up as outpatient due to no acute urgent effects of the area. Patient states she never followed up. * Await results of these labs ordered per oncology. Consult oncology once the results come in and to consider consult general surgery if pain remains persistent though it is not clear if it is related to this mass at all. * #Dysphagia: Speech therapy consulted to evaluate patient. #Hypothyroidism: on synthroid #Chronic anemia: on oral iron supplementation #Chronic COPD: on breathing treatment with bronchodilators #Anxiety and depression: on Buspar #History fo cluster headache: on topamax #Nicotine dependence: counseled to quit #Hyperlipidemia: on statin #?diabetes mellitus: Recent A1c is 5.9, on 09/18/2020. Continue Metformin. Insulin sliding scale. Checks AC at bedtime. DVT Prophylaxis: Lovenox Disposition: Dr Comer her pain doctor is away till Monday. Patient to stay till Monday to be evaluated by Dr Comer for a possible pain shot. Inpatient E&M: 81329 Subs Hosp L2
--- NOTE | 2020-09-20 16:21 | NURSING ---
pt return from CT scan crying in pain, states CT staff were rough transferring her. Dr Bailey notified & new order received.
[2020-09-20 16:41] LABS: Bedside Glucose 132 mg/dL (70-110)
[2020-09-20] MEDS: 0.9% Saline Lock 10 ML Syringe IV (16:43)
[2020-09-20] MEDS: Morphine 2 MG/ML Syringe IV (16:43)
[2020-09-20 20:50] VITALS: BP 142/67; PULSE 56; RESP 18; TEMP 37; O2SAT 98
[2020-09-20] MEDS: Gabapentin 300 MG Capsule 900 MG PO (21:21)
[2020-09-20] MEDS: Atorvastatin Calcium 20 MG Tablet PO (21:21)
[2020-09-20] MEDS: Acetaminophen 325 MG Tablet 650 MG PO (21:26)
[2020-09-20] MEDS: LORazepam 1 MG Tablet PO (21:26)
[2020-09-20 22:30] LABS: Bedside Glucose 124 mg/dL (70-110)
[2020-09-21 04:30] VITALS: BP 141/71; PULSE 55; RESP 16; TEMP 36.6; O2SAT 98
[2020-09-21] MEDS: 0.9% Normal Saline 1,000 ML 125 ML IV (04:32)
[2020-09-21] MEDS: Baclofen 10 MG Tablet PO ×2 (04:35→13:29)
[2020-09-21] MEDS: Senna/Docusate Sodium 1 Tablet 2 TABLET PO (04:35)
--- NOTE | 2020-09-21 05:55 | NM_ITS ---
CLINICAL: Female, 60 years old. 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 COMPARISON STUDIES : NM - None. CR - Not available for review at this time. CT - Not available for review at this time. MR - 09/19/2020 US - Not available for review at this time. FINDINGS: There is a normal concentration of radiopharmaceutical throughout the axial and appendicular skeletal system without either a focal decrease or increase in uptake. Mild levoscoliosis of the thoracolumbar spine with some increased uptake in the posterior elements of the lower lumbar spine consistent with degenerative disc disease. Normal concentration of radiopharmaceutical by the kidneys with excretion into the bladder. NM/Bone Scan Whole Body IMPRESSION: No scintigraphic evidence metastatic disease. Electronically Signed: Junior Gee MD at 10:02 EST Tel , Service support ,
[2020-09-21 06:22] LABS: Absolute Lymphocyte Count 2.24 X10^3/uL (0.83-4.51); Absolute Neutrophil Count 3.2 X10^3/uL (2.0-7.7); Basophil# 0.02 X10^3/uL; Basophil% 0.3 % (0-1); Eosinophil# 0.07 X10^3/uL; Eosinophils% 1.2 % (0-5); Hematocrit 33.4 % (37-47); Hemoglobin 10.3 g/dL (12.0-15.0); Lymphocyte # 2.24 X10^3/ul (4.0); Lymphocyte % 38.4 % (19-41); Mean Corp Hgb Conc 30.8 g/dL (32-36); Mean Corpuscular Hgb 28.5 pg (27.0-32.0); Mean Corpuscular Volume 92.3 fL (81-99); Mean Platelet Vol. 11.4 fl (6.2-12.0); Monocyte# 0.31 X10^3/uL; Monocyte% 5.3 % (0-10); NRBC Flagged by Analyzer 0 % (0-5); Neutrophil # 3.16 X10^3/uL (2.7-7.7); Neutrophil % 54.3 % (47-70); Platelet Count 205 K/mm3 (150-450); RBC Distribution Width CV 13.7 % (11.6-14.6); RBC Distribution Width SD 46.2 fl (35.1-43.9); Red Blood Count 3.62 M/mm3 (4.2-5.4); White Blood Count 5.8 K/mm3 (4.4-11.0)
[2020-09-21] MEDS: Levothyroxine 150 MCG Tablet PO (06:35)
[2020-09-21] MEDS: oxyCODONE 5 MG Tablet PO ×2 (06:35→20:18)
[2020-09-21 06:45] LABS: Bedside Glucose 120 mg/dL (70-110)
[2020-09-21 06:50] LABS: Anion Gap 5 (5-15); BUN 18 mg/dL (7-18); BUN/Creat Ratio 18.3 RATIO (10-20); Chloride 115 mmol/L (98-107); Creatinine, Serum 0.99 mg/dL (0.55-1.02); EST Glomerular Filtration Rate 61 mL/min (>60); Est Glom Filt Rate - Afr Amer 74 mL/min (>60); Estimated Creatinine Clearance 57.28 ml/min; Glucose 115 mg/dL (74-106); Potassium 4.1 mmol/L (3.5-5.1); Sodium Level 143 mmol/L (136-145)
[2020-09-21] MEDS: LORazepam 1 MG Tablet PO ×2 (08:41→22:49)
[2020-09-21] MEDS: MethylPREDNISolone DosePak 4 MG BOX PO ×3 (08:42→22:39)
[2020-09-21] MEDS: Ferrous Gluconate 324 MG Tablet PO (08:42)
[2020-09-21] MEDS: Gabapentin 600 MG Tablet PO ×2 (08:45→16:14)
[2020-09-21 08:52] VITALS: BP 158/78; PULSE 78; RESP 16; TEMP 36.9; O2SAT 97
--- NOTE | 2020-09-21 09:03 | NURSING ---
pt to mri
--- NOTE | 2020-09-21 09:07 | PCM.PROGNOTE ---
Patient Problems: Active and Suspected Problems (Last Updated 09/21/20 @ 09:[address] Helena Aguayo MD) Intractable low back pain (Acute) Encephalopathy acute (Acute) Subjective: Chief complaint: Follow-up after admission for acute on chronic low back pain/left hip pain, encephalopathy and found to have right femoral lesion on MRI pelvis. Patient seen and examined. No acute events overnight. When I walked in, patient was pleasant and comfortable. After I spoke to her, she complained of left hip pain and she mentioned that her back is hurting. Her vital signs are stable. - Physical Exam Vitals/I&O's: Vital Signs Temp Pulse Resp BP Pulse Ox 98.5 F 78 16 158/78 H 97 09/21/20 08:52 09/21/20 08:52 09/21/20 08:52 09/21/20 08:52 09/21/20 08:52 Oxygen Delivery Method Room Air Weight: 227 lb 1.218 oz Body Mass Index (BMI) 35.3 Finger Stick Blood Glucose 130 Intake and Output for Last 24 Hours 09/19/20 09/20/20 09/21/20 23:59 23:59 23:59 Intake Total 2949.99 / 2949.99 3558.33 / 3558.33 1766.66 / 1766.66 Output Total 1800 / 1800 3600 / 3600 2350 / 2350 Balance 1149.99 / 1149.99 -41.67 / -41.67 -583.34 / -583.34 General: Alert, Oriented x3, Cooperative, No apparent distress HEENT: Atraumatic, PERRLA, EOMI, Normocephalic Oral: Moist Mucosa, No Gingival or Mucosal Lesions/ Ulcerations Neck: Supple, No JVD, Negative Carotid Bruits, Trachea Midline, Thyroid Normal Size and Texture Lungs: Clear to auscultation, Normal air movement, No rhonchi, No wheeze, No rales Cardiovascular: Regular rate, Regular Rhythm, Normal S1, Normal S2, PMI Normal Abdomen: Bowel Sounds Present, Soft, Non Tender, Non-Distended, No Hepato-splenomegaly, Obese Extremities: No clubbing, No cyanosis, No edema Skin: No rashes, No breakdown Lymphatic: No Cervical, Supraclavicular, or Inguinal Adenopathy Neurological: Cranial nerves II-XII grossly intact, - - Paraparesis. Psych/Mental Status: Appropriate, Impulsive, Alert and oriented to time, place, person, mood and affect Laboratory Results 09/20/20 11:16: POC Glucose 171 H 09/20/20 16:12: POC Glucose 132 H 09/20/20 21:10: POC Glucose 124 H 09/21/20 05:45: WBC 5.8, RBC 3.62 L, Hgb 10.3 L, Hct 33.4 L, MCV 92.3, MCH 28.5, MCHC 30.8 L, RDW Std Deviation 46.2 H, RDW Coeff of Jarrod 13.7, Plt Count 205, MPV 11.4, Immature Gran % (Auto) 0.500, Neut % (Auto) 54.3, Lymph % (Auto) 38.4, [place] % (Auto) 5.3, Eos % (Auto) 1.2, Baso % (Auto) 0.3, Absolute Neuts (auto) 3.2, Absolute Lymphs (auto) 2.24, Nucleated RBC % 0 09/21/20 05:45: Sodium 143, Potassium 4.1, Chloride 115 H, Carbon Dioxide 23.0, Anion Gap 5, BUN 18, Creatinine 0.99, Estim Creat Clear Calc 57.28, Est GFR (MDRD) Af Amer 74, Est GFR (MDRD) Non-Af 61, BUN/Creatinine Ratio 18.3, Glucose 115 H, Calcium 9.0 09/21/20 05:45: Total Protein (PEP) Pending, Albumin (PEP) Pending, Globulin (PEP) Pending, Albumin/Globulin (PEP) Pending, Kbqmf-1-Wjqblrbry Pending, Nxisi-4-Ncbgbrkef Pending, Beta Globulins Pending, Gamma Globulins Pending, M-Chad Pending, IgG Pending, IgA Pending, IgM Pending, Free [place] LC, Quant Pending, Free Lambda LC, Quant Pending, Free [place]/Lambda Ratio Pending 09/21/20 06:32: POC Glucose 120 H Clinical Impression(s) from Imaging Studies Chest X-Ray 09/17/20 17:35 IMPRESSION: No acute cardiopulmonary disease or major interval change. Electronically Signed: Mike Boles DO at 19:24 EST Tel [phone], Service support , Brain CT 09/17/20 18:51 IMPRESSION: Normal unenhanced CT scan of the brain. Electronically Signed: Mike Boles DO at 19:23 EST Tel [phone], Service support , Hip/Pelvis X-Ray 09/18/20 04:52 IMPRESSION: Age consistent hip and SI joint arthrosis. No demonstrated fracture or suspicious osseous lesion. However, hip and pelvic fractures in patients of this age can be subtle, if there is strong clinical suspicion of a fracture, recommend further evaluation with CT Surgical hardware in the lower lumbar spine and across the SI joints free of complication Electronically Signed: Johnny Hood MD at 8:22 EST , Service support , Pelvis MRI 09/19/20 09:05 IMPRESSION: 1. Normal unenhanced MRI of the pelvis. 2. Farrell catheter within the collapsed bladder. 3. 1.5 cm marrow replacing lesion with geographic margins of the proximal shaft of the right femur and correlation with bone scan would be useful to evaluate for other lesions. Electronically Signed: Junior Gee MD at 8:25 EST Tel , Service support , Abdomen/Pelvis CT 09/20/20 14:47 IMPRESSION: Bladder wall thickening concerning for underlying cystitis. Interval worsening of intra and extrahepatic ductal dilatation. Moderate amount of stool throughout the colon and rectum. Atherosclerosis. Electronically Signed: Nat Kerr MD at 17:26 EST Tel , Service support , Chest CT 09/20/20 14:47 IMPRESSION: Minimal bilateral atelectasis and/or scarring. Atherosclerosis. Multilevel postsurgical changes of the thoracic spine. Electronically Signed: Nat Kerr MD at 17:15 EST Tel , Service support , Current Medications Acetaminophen (Acetaminophen 325 Mg Tablet) 650 mg PO Q6H PRN PRN PRN Reason: Pain Score 1-10/Temp > 100.7 F Last Admin: 09/20/20 21:26 Dose: 650 mg Documented by: Al Hydroxide/Mg Hydroxide (Mag Hydrox/Al Hydrox/Simeth 30 Ml Udc) 30 ml PO Q6H PRN PRN PRN Reason: Gastric Burning Albuterol Sulfate (Albuterol 2.5 Mg/3 Ml Vial.Neb.) 2.5 mg INHALATION Q2H PRN PRN PRN Reason: Dyspnea, wheezing Atorvastatin Calcium (Atorvastatin Calcium 20 Mg Tablet) 20 mg PO QHS [facility] Last Admin: 09/20/20 21:21 Dose: 20 mg Documented by: Baclofen (Baclofen 10 Mg Tablet) 10 mg PO Q8H PRN PRN PRN Reason: back spasms Last Admin: 09/21/20 04:35 Dose: 10 mg Documented by: Buspirone HCl (Buspirone 15 Mg Tablet) 15 mg PO TID PRN PRN PRN Reason: mood Last Admin: 09/20/20 08:32 Dose: 15 mg Documented by: Enoxaparin Sodium (Enoxaparin 40 Mg/0.4 Ml Syringe) 40 mg SC DAILY [facility] Last Admin: 09/20/20 08:35 Dose: 40 mg Documented by: Ferrous Gluconate (Ferrous Gluconate 324 Mg Tablet) [facility] Last Admin: 09/21/20 08:42 Dose: 324 mg Documented by: Fluoxetine HCl (Fluoxetine 10 Mg Capsule) 10 mg PO DAILY [facility] Last Admin: 09/20/20 08:35 Dose: 10 mg Documented by: Gabapentin (Gabapentin 300 Mg Capsule) 900 mg PO QHS [facility] Last Admin: 09/20/20 21:21 Dose: 900 mg Documented by: Gabapentin (Gabapentin 600 Mg Tablet) [facility] [address] [facility] Last Admin: 09/21/20 08:45 Dose: 600 mg Documented by: Guaifenesin (Guaifenesin 10 Ml Udc (200mg/10ml)) 20 ml PO Q4H PRN PRN PRN Reason: COUGH Hydralazine HCl (Hydralazine 20 Mg/Ml Vial) 10 mg IV Q4H PRN PRN PRN Reason: SBP > 160 Sodium Chloride () 1,000 mls @ 125 mls/hr IV .Q8H [facility] Last Infusion: 09/21/20 09:03 Dose: 0 mls/hr Documented by: Insulin Human Lispro (Insulin Lispro 100 Unit/Ml Insuln.Pen) 0 unit SC ACHS [facility]; Protocol Last Admin: 09/21/20 06:33 Dose: Not Given Documented by: Levothyroxine Sodium (Levothyroxine 150 Mcg Tablet) 150 mcg PO DAILY@0600 [facility] Last Admin: 09/21/20 06:35 Dose: 150 mcg Documented by: Lidocaine (Lidocaine 5% Patch) 3 patch TOPICAL DAILY [facility]; Protocol Last Admin: 09/20/20 08:36 Dose: 3 patch Documented by: Lorazepam (Lorazepam 1 Mg Tablet) 1 mg PO BID PRN PRN PRN Reason: ANXIETY Last Admin: 09/21/20 08:41 Dose: 1 mg Documented by: Magnesium Hydroxide (Magnesium Hydroxide 30 Ml Udc) 30 ml PO DAILY PRN PRN PRN Reason: Constipation Last Admin: 09/19/20 11:57 Dose: 30 ml Documented by: Melatonin (Melatonin 3 Mg Tablet) 3 mg PO QHS PRN PRN PRN Reason: INSOMNIA Methylprednisolone (Methylprednisolone Dosepak 4 Mg Box) 4 mg PO 0800,1200,2200 [facility]; Taper Stop: 09/23/20 08:59 Last Admin: 09/21/20 08:42 Dose: 4 mg Documented by: Nicotine (Nicotine 7 Mg Patch) 7 mg TD DAILY [facility] Last Admin: 09/20/20 08:35 Dose: 7 mg Documented by: Ondansetron HCl (Ondansetron 4 Mg/2 Ml Vial) 4 mg IV Q8H PRN PRN PRN Reason: NAUSEA/VOMITING Last Admin: 09/19/20 10:18 Dose: 4 mg Documented by: Oxycodone HCl (Oxycodone 5 Mg Tablet) 5 mg PO BID PRN PRN PRN Reason: PAIN 6-10/10 Last Admin: 09/21/20 06:35 Dose: 5 mg Documented by: Oxycodone HCl (Oxycodone Cr 15 Mg Tablet) 15 mg PO BID [facility] Last Admin: 09/20/20 21:20 Dose: 15 mg Documented by: Pantoprazole Sodium (Pantoprazole Sodium 40 Mg Tablet) 40 mg PO BID PRN PRN PRN Reason: stomach Last Admin: 09/19/20 08:18 Dose: 40 mg Documented by: Polyethylene Glycol (Polyethylene Glycol 3350 17 Gm Packet) 17 gm PO DAILY [facility] Last Admin: 09/20/20 08:00 Dose: Not Given Documented by: Prochlorperazine Edisylate (Prochlorperazine 10 Mg/2 Ml Vial) 5 mg IV Q4H PRN PRN PRN Reason: Breakthrough nausea/vomiting Psyllium Hydrophilic Mucilloid (Psyllium 1 Packet) 1 packet PO DAILY PRN PRN PRN Reason: Constipation Senna/Docusate Sodium (Senna/Docusate Sodium 1 Tablet) 2 tablet PO BID PRN PRN PRN Reason: Constipation Last Admin: 09/21/20 04:35 Dose: 2 tablet Documented by: Sodium Chloride (0.9% Saline Lock 10 Ml Syringe) 10 - 40 ml IV UD PRN PRN Reason: SALINE FLUSH Last Admin: 09/20/20 16:43 Dose: 10 ml Documented by: Throat Lozenges (Benzocaine/Menthol 1 Lozenge) 1 lozenge MUCOUS MEM Q2H PRN PRN PRN Reason: SORE THROAT Topiramate (Topiramate 25 Mg Tablet) 25 mg PO BID [facility] Last Admin: 09/20/20 21:21 Dose: 25 mg Documented by: Medical Necessity - Tobacco Use Smoking Status: Former smoker Tobacco Use: Cigarettes Assessment/Plan All Active Problems (Last Updated 09/21/20 @ 09:[address] Helena Aguayo MD) Intractable low back pain (Acute) Encephalopathy acute (Acute) This is a 60 years old female patient presented to the emergency room because of back pain and abnormal blood work, found to have acute kidney injury, intractable acute on chronic low back pain with left hip pain, dysphagia and also found to have right femoral lesion on MRI of the pelvis. #1 acute on chronic intractable low back pain/left hip pain: She is on baclofen, Neurontin, lidocaine patch, Medrol Dosepak and OxyIR as needed for pain as well as MS Contin twice daily. X-ray of the pelvis and hip showed no acute fractures. Dr. Comer was consulted. #2 acute kidney injury: Due to dehydration, resolved. Plan to discontinue IV fluids, encourage oral intake. #3 abnormal right femoral lesion: This was an incidental finding on MRI of the pelvis. Bone scan done and showed no evidence of metastatic disease. Protein electrophoresis and immunoglobulin levels done as per oncology request. Plan to consult oncology today. #4 hypertension: Blood pressure stable, she was on HCTZ which is on hold now. She is on IV hydralazine as needed. #5 hypothyroidism: Continue levothyroxine. #6 chronic anemia: Hemoglobin and hematocrit are stable, continue iron supplement. #7 COPD: Stable, on room air. Continue albuterol as needed. #8 anxiety and depression: Continue BuSpar, Ativan, melatonin. #9 questionable type 2 diabetes mellitus: Recent hemoglobin A1c was 5.9%. She is on Metformin, sliding scale as well. Continue Accu-Cheks. #10 DVT prophylaxis: Subcu Lovenox. This note was generated with [employer] [place] dictation software. It may contain incorrect words, spelling, and punctuation that were not noted in checking the note before signing. Inpatient E&M: 35271 Subs Hosp L2
[2020-09-21] MEDS: Lidocaine 5% Patch 3 PATCH TOPICAL (09:48)
[2020-09-21] MEDS: Enoxaparin 40 MG/0.4 ML Syringe SC (09:48)
[2020-09-21] MEDS: FLUoxetine 10 MG Capsule PO (09:49)
[2020-09-21] MEDS: Topiramate 25 MG Tablet PO ×2 (09:50→22:41)
[2020-09-21] MEDS: oxyCODONE CR 15 MG Tablet PO ×2 (09:53→22:49)
--- NOTE | 2020-09-21 10:02 | NURSING ---
pt returned from mri
[2020-09-21 11:05] LABS: Bedside Glucose 129 mg/dL (70-110)
--- NOTE | 2020-09-21 11:22 | CASEMGMT ---
Social Work Note Per leach runner questions, pt has completed HCPOA and LW and provided copies to [facility]. SW reviewed chart, there is a Living Will and Testament document on file that is signed by a shaniqua. On this document it lists that pt gave full charge of healthcare situations to her daughter Adriane Betancourt if pt becomes physically and mentally unable to care for self. Mitra Gallegos SUPERVISOR TELEPHONE [employer]ERKS, IN FLIGHT CREW MEMBER
--- NOTE | 2020-09-21 12:08 | CASEMGMT ---
Social Work Note SW placed a call to pt's DERRICK Montano and provided update. Mitra Gallegos HI RANGER OPERATOR, RIGHT OF WAY MAN
--- NOTE | 2020-09-21 13:03 | CON.PCM_ITS ---
Consult Referring Physician: Dr. Mare Aguayo. Consult Results: Right femoral lesion. Subjective Date of Service:: 09/21/20 Chief Complaint: Asked to see Pt for R femoral lesion. History of Present Illness: 60-year-old woman with chronic pain syndrome due to spinal stenosis was admitted with left hip pain. MRI of the pelvis on 09/19/2020 showed 1.5 cm infiltrative lesion of the right upper femur. She had a CT scan of the chest, abdomen and pelvis on 09/20/2020. Blood work was also done for multiple myeloma. Asked to see patient for further management. Past Medical History: Chronic Problems (Last Updated 09/21/20 @ 09:[address] Helena Aguayo MD) Complex ovarian cyst (Chronic) cea and ca125 ordered Major depressive disorder (Chronic) Anxiety (Chronic) GERD without esophagitis (Chronic) Chronic cluster headache, not intractable (Chronic) Age-related osteoporosis without current pathological fracture (Chronic) Primary generalized (osteo)arthritis (Chronic) Other intervertebral disc degeneration, lumbar region (Chronic) Hypothyroidism (Chronic) Anemia (Chronic) COPD (chronic obstructive pulmonary disease) (Chronic) Muscle weakness (Chronic) Spinal stenosis, lumbar region without neurogenic claudication (Chronic) Neuromuscular scoliosis (Chronic) Chronic low back pain (Chronic) Paraplegia (Chronic) Tobacco use disorder (Chronic) Morbid obesity (Chronic) HTN (hypertension) (Chronic) HLD (hyperlipidemia) (Chronic) Dysthymic disorder (Chronic) Diabetes mellitus type 2, uncontrolled, without complications (Chronic) Chronic Airway Obstruction NEC (Chronic) Past Medical/Surgical History: Past Medical History - Most Recent Inpatient Visit Past Medical History Start: 09/17/20 21:58 Text: Status: Complete Freq: ONCE Protocol: Document 09/17/20 22:17 CDS (Rec: 09/17/20 22:19 CDS [id number]) BMI Required to complete PMH What is Patient's BMI 35.3 Past Medical History Unable History Recalled No Query Text:Pt Unable/Family Not Present Neurologic Medical History Hx Stroke/TIA No Hx Dementia/Alzheimer's No Hx Parkinson's Disease No Hx Seizures No Hx Multiple Sclerosis No Hx Migraines No Cardiac Medical History VTE Present on Admission No Hx of Deep Vein Thrombosis/VTE/PE No Hx Hypertension Yes: states controlled with med, unless painful Hx Chest Pain/Angina No Hx Heart Attack No Hx Cardiac Surgery/Stents/Etc. No: . Hx Heart Failure No Hx Pacemaker/AICD No Hx Irregular Heartbeat and/or Afib No Hx Anticoagulant Therapy No Query Text:(Coumadin, Aspirin, Plavix, Xarelto, etc.) Hx Pain in Legs when Walking/Leg Cramps Yes: chronic pain Respiratory Medical History Hx COPD Yes Hx Emphysema No Hx Smoking Yes: quit 2014 Smoking Status Former smoker Tobacco Use Cigarettes Hx Smoking Cessation Date 10/17/14 Hx Tobacco Use in last 12 months No Hx of Pipe Smoking No Hx Sleep Apnea No Do you snore loudly (louder than talking No or can be heard through closed doors)? Do you often feel tired/ fatigued/ No sleepy during daytime? Has anyone observed you stop breathing No during sleep? STOP Results Negative GI Medical History Hx Ulcer No Hx Hepatitis No Hx Cirrhosis No Hx GI Bleed No Hx Unplanned Weight Loss No Genitourinary Medical History Indwelling Catheter in Place on Arrival/ Yes Admission Hx Renal Disease No Hx Dialysis No Musculoskeletal History Hx Arthritis Yes: atrthritis/ ddd Hx Rheumatoid Arthritis No Endocrine Medical History Hx Diabetes Yes: NOT DIABETIC SINCE GASTRIC BYPASS Hx Thyroid Disease Yes: ON MEDS Hematologic Medical History Hx of Blood Transfusion No Hx of Transfusion in last 3 Months No Ever experience any problems with No transfusion(s)? Hx of Preganancy in last 3 Months No Nurse Filling Out Transfusion & CSNYDER Questions: Date: 09/17/20 Time: 22:19 Psycho/Social Medical History Hx Depression Yes: on med Hx Anxiety Yes: on med Hx Behavior Disorder No Hx Alcohol Use No Hx Substance Use No Other Medical History Hx Blood Disorders No Hx Anemia No Hx Cancer No Hx Drug Resistant Organism Yes: MRSA Wound/Pressure Injury Present on Arrival Yes /Admission Query Text:If yes, chart assessment in Shift/Clinical Findings Central Line/PICC/VAD Present on Arrival No /Admission Risk for Readmission Number of Risk Factors 7 At Risk for Readmission Patient is At Risk For Readmission Patient is eligible for Call Back Y Past Medical History (Last Updated 09/21/20 @ 09:[address] Helena Aguayo MD) Major depressive disorder (Chronic) Anxiety (Chronic) GERD without esophagitis (Chronic) Chronic cluster headache, not intractable (Chronic) Age-related osteoporosis without current pathological fracture (Chronic) Primary generalized (osteo)arthritis (Chronic) Other intervertebral disc degeneration, lumbar region (Chronic) Hypothyroidism (Chronic) Anemia (Chronic) COPD (chronic obstructive pulmonary disease) (Chronic) Muscle weakness (Chronic) Spinal stenosis, lumbar region without neurogenic claudication (Chronic) Neuromuscular scoliosis (Chronic) Chronic low back pain (Chronic) Paraplegia (Chronic) Past Surgical History (Last Updated 02/26/18 @ 16:12 by Kristie Collins) D&C (Resolved) H/O gastric bypass (Resolved) History of cholecystectomy (Resolved) Hydradenitis (Resolved) S/P arthroscopic knee surgery (Resolved) S/P lumbar spine operation (Resolved) s/p nerve spine surgery (Resolved) s/p upper back surgery (Resolved) skin graft (Resolved) Maternal Family History: Family History (Last Updated 02/26/18 @ 16:13 by Kristie Collins) Father Diabetes Hypertension Myocardial infarction Alcoholism Brother Myocardial infarction Alcoholism Mother CVA (cerebral vascular accident) Family History: Diabetes, High Cholesterol, Heart Disease, Hypertension Paternal Family History: Family History (Last Updated 02/26/18 @ 16:13 by Kristie Collins) Father Diabetes Hypertension Myocardial infarction Alcoholism Brother Myocardial infarction Alcoholism Mother CVA (cerebral vascular accident) Family History: Diabetes, High Cholesterol, Heart Disease, Hypertension - Social History Lives: With Family Smoking Status: Former smoker Tobacco Use: Cigarettes Alcohol: None Drugs: None Allergies/Adverse Reactions: Allergy/AdvReac Type Severity Reaction Status Date / Time NSAIDS (Non-Steroidal Allergy GASTRIC Verified 09/17/20 19:58 Anti-Inflamma BYPASS trazodone AdvReac Other Verified 09/17/20 19:58 Review of Systems Constitutional:: Reports: Fatigue. Denies: Fever, Sweats Cardiovascular:: Denies: Chest pain, Palpitations, Dyspnea on exertion, Orthopnea, PND, Shortness of breath Respiratory: Denies: Cough, Hemoptysis, Shortness of Breath, Wheezing Gastrointestinal:: Denies: Abdominal pain, Nausea, Vomiting, Diarrhea, Constipation, Hematochezia Genitourinary: Denies: Dysuria, Hematuria, 15, Flank pain Musculoskeletal:: Reports: Muscle weakness Neurological:: Reports: Muscle weakness - lower extremities,. Denies: Headache, Seizure, Dizziness, Memory loss Vital Signs Temperature 98.5 F 09/21/20 08:52 Temperature Source Oral 09/21/20 08:52 Pulse Rate 78 09/21/20 08:52 Pulse Strength Normal (2+) 09/21/20 08:52 Respiratory Rate 16 09/21/20 08:52 Respiratory Effort 09/21/20 08:52 Respiratory Depth Normal 09/21/20 08:52 Respiratory Pattern Normal 09/21/20 08:52 Blood Pressure 158/78 H 09/21/20 08:52 Blood Pressure Mean 104 09/21/20 08:52 Blood Pressure Source Monitor 09/21/20 08:52 Blood Pressure Position Semi-Fowlers 09/21/20 08:52 Blood Pressure Location Left Arm 09/21/20 08:52 Pulse Ox 97 09/21/20 08:52 Oxygen Delivery Method Room Air 09/21/20 08:52 - Physical Exam General: Alert, Oriented x3, No apparent distress HEENT: Atraumatic, PERRLA, EOMI, Normocephalic Oropharynx:: Dry mucosa Neck:: Supple, Trachea midline. Negative for: JVD, bilateral Cardiac:: Regular rate, Regular rhythm, Normal S1, Normal S2. Negative for: Murmur Lungs: Clear to auscultation, Excusion symmetrical. Negative for: Rhonchi, Wheezes Abdomen:: Bowel sounds x 4, Soft. Negative for: Hepatosplenomegaly Neurological: Cranial nerves II-XII grossly intact, - - +paralysis of feet Skin:: Negative for: Lesions, Rash, Petechiae, Ecchymosis Psychiatric:: Depressed affect Lymphatics:: Negative for: Cervical lymphadenopathy, Supraclavicular lymphadenopathy, Axillary lymphadenopathy Laboratory Data: Laboratory Tests 09/21/20 09/21/20 09/21/20 Range/Units 10:58 06:32 05:45 WBC (4.4-11.0) K/mm3 RBC (4.2-5.4) M/mm3 Hgb (12.0-15.0) g/dL Hct (37-47) % MCV (81-99) fL MCH (27.0-32.0) pg MCHC (32-36) g/dL RDW Std Deviation (35.1-43.9) fl RDW Coeff of Jarrod (11.6-14.6) % Plt Count (150-450) K/mm3 MPV (6.2-12.0) fl Immature Gran % (Auto) (0.0-0.9) % Neut % (Auto) (47-70) % Lymph % (Auto) (19-41) % Jones % (Auto) (0-10) % Eos % (Auto) (0-5) % Baso % (Auto) (0-1) % Absolute Neuts (auto) (2.0-7.7) X10^3/uL Absolute Lymphs (auto) (0.83-4.51) X10^3/uL Nucleated RBC % (0-5) % Sodium 143 (136-145) mmol/L Potassium 4.1 (3.5-5.1) mmol/L Chloride 115 H (98-107) mmol/L Carbon Dioxide 23.0 (21.0-32.0) mmol/L Anion Gap 5 (5-15) BUN 18 (7-18) mg/dL Creatinine 0.99 (0.55-1.02) mg/dL Estim Creat Clear Calc 57.28 ml/min Est GFR (MDRD) Af Amer 74 (>60) mL/min Est GFR (MDRD) Non-Af 61 (>60) mL/min BUN/Creatinine Ratio 18.3 (10-20) RATIO Glucose 115 H (74-106) mg/dL Calcium 9.0 (8.5-10.1) mg/dL POC Glucose 129 H 120 H (70-110) mg/dL 09/21/20 09/20/20 09/20/20 Range/Units 05:45 21:10 16:12 WBC 5.8 (4.4-11.0) K/mm3 RBC 3.62 L (4.2-5.4) M/mm3 Hgb 10.3 L (12.0-15.0) g/dL Hct 33.4 L (37-47) % MCV 92.3 (81-99) fL MCH 28.5 (27.0-32.0) pg MCHC 30.8 L (32-36) g/dL RDW Std Deviation 46.2 H (35.1-43.9) fl RDW Coeff of Jarrod 13.7 (11.6-14.6) % Plt Count 205 (150-450) K/mm3 MPV 11.4 (6.2-12.0) fl Immature Gran % (Auto) 0.500 (0.0-0.9) % Neut % (Auto) 54.3 (47-70) % Lymph % (Auto) 38.4 (19-41) % Jones % (Auto) 5.3 (0-10) % Eos % (Auto) 1.2 (0-5) % Baso % (Auto) 0.3 (0-1) % Absolute Neuts (auto) 3.2 (2.0-7.7) X10^3/uL Absolute Lymphs (auto) 2.24 (0.83-4.51) X10^3/uL Nucleated RBC % 0 (0-5) % Sodium (136-145) mmol/L Potassium (3.5-5.1) mmol/L Chloride (98-107) mmol/L Carbon Dioxide (21.0-32.0) mmol/L Anion Gap (5-15) BUN (7-18) mg/dL Creatinine (0.55-1.02) mg/dL Estim Creat Clear Calc ml/min Est GFR (MDRD) Af Amer (>60) mL/min Est GFR (MDRD) Non-Af (>60) mL/min BUN/Creatinine Ratio (10-20) RATIO Glucose (74-106) mg/dL Calcium (8.5-10.1) mg/dL POC Glucose 124 H 132 H (70-110) mg/dL Diagnostic Data: Diagnostic Data Chest X-Ray 09/17/20 17:35 IMPRESSION: No acute cardiopulmonary disease or major interval change. Electronically Signed: Mike Boles DO at 19:24 EST Tel [phone], Service support , Brain CT 09/17/20 18:51 IMPRESSION: Normal unenhanced CT scan of the brain. Electronically Signed: Mike Boles DO at 19:23 EST Tel [phone], Service support , Hip/Pelvis X-Ray 09/18/20 04:52 IMPRESSION: Age consistent hip and SI joint arthrosis. No demonstrated fracture or suspicious osseous lesion. However, hip and pelvic fractures in patients of this age can be subtle, if there is strong clinical suspicion of a fracture, recommend further evaluation with CT Surgical hardware in the lower lumbar spine and across the SI joints free of complication Electronically Signed: Johnny Hood MD at 8:22 EST , Service support , Pelvis MRI 09/19/20 09:05 IMPRESSION: 1. Normal unenhanced MRI of the pelvis. 2. Farrell catheter within the collapsed bladder. 3. 1.5 cm marrow replacing lesion with geographic margins of the proximal shaft of the right femur and correlation with bone scan would be useful to evaluate for other lesions. Electronically Signed: Junior Gee MD at 8:25 EST Tel , Service support , Abdomen/Pelvis CT 09/20/20 14:47 IMPRESSION: Bladder wall thickening concerning for underlying cystitis. Interval worsening of intra and extrahepatic ductal dilatation. Moderate amount of stool throughout the colon and rectum. Atherosclerosis. Electronically Signed: Nat Kerr MD at 17:26 EST Tel , Service support , Chest CT 09/20/20 14:47 IMPRESSION: Minimal bilateral atelectasis and/or scarring. Atherosclerosis. Multilevel postsurgical changes of the thoracic spine. Electronically Signed: Nat Kerr MD at 17:15 EST Tel , Service support , Bone Scan Nuclear Medicine 09/21/20 05:55 IMPRESSION: No scintigraphic evidence metastatic disease. Electronically Signed: Junior Gee MD at 10:02 EST Tel , Service support , Assessment and Plan Right femur 15cm infiltrative lesion with no activity on bone scan, differential diagnoses include Plasmacytoma, Multiple Myeloma, ? Sarcoma. No obvious primary cancer on CT. Dilated Biliary tree with normal Liver function. Discussed findings with Pt. Suggestion: 1.To wait for results of SPEP, SFLC, Ig Levels. 2. Obtain Orthopedic consult to assess if she needs IM nailing. 3. Obtain Surgery consult for evaluation of bile duct enlargement. Will follow with further suggestions after lab results are available. Thanks. Medications: Prescriptions This Visit Medication Instructions Recorded Albuterol Sulfate [Albuterol 2 puff INHALATION Q4H PRN 09/17/20 Sulfate Hfa] Buspirone HCl 15 mg PO TID PRN 09/17/20 Fluoxetine HCl [Prozac] 10 mg PO DAILY 09/17/20 Hydrochlorothiazide [Hctz] 25 mg PO DAILY 09/17/20 Levothyroxine Sodium [Synthroid] 150 mcg PO DAILY 09/17/20 Metformin HCl 1,000 mg PO BID 09/17/20 Pantoprazole Sodium [Protonix] 40 mg PO BID PRN 09/17/20 Primary Care Provider: Dr. Kevin Bah MD Referring Provider: - Problem List (1) Bone lesion Status: Acute Office Visits / Consults: [id number] IP Consult L4
[2020-09-21 14:07] VITALS: BP 138/67; PULSE 63; RESP 16; TEMP 37.2; O2SAT 96
[2020-09-21] MEDS: Insulin Lispro 100 UNIT/ML INSULN.PEN SC (16:12)
[2020-09-21 16:21] LABS: Bedside Glucose 229 mg/dL (70-110)
[2020-09-21 20:14] VITALS: BP 144/69; PULSE 57; RESP 18; TEMP 36.8; O2SAT 98
[2020-09-21] MEDS: Gabapentin 300 MG Capsule 900 MG PO (22:42)
[2020-09-21] MEDS: Atorvastatin Calcium 20 MG Tablet PO (22:42)
[2020-09-21] MEDS: Nystatin Powder 15gm Bottle 1 APPLIC TOPICAL (22:49)
[2020-09-21 22:51] LABS: Bedside Glucose 101 mg/dL (70-110)
[2020-09-22 02:44] VITALS: BP 142/70; PULSE 60; RESP 18; TEMP 36.3; O2SAT 98
[2020-09-22] MEDS: Baclofen 10 MG Tablet PO (02:49)
[2020-09-22] MEDS: Levothyroxine 150 MCG Tablet PO (06:31)
[2020-09-22] MEDS: oxyCODONE 5 MG Tablet PO ×3 (06:32→20:32)
[2020-09-22] MEDS: Ferrous Gluconate 324 MG Tablet PO (07:48)
[2020-09-22] MEDS: MethylPREDNISolone DosePak 4 MG BOX PO ×2 (07:48→21:49)
[2020-09-22] MEDS: Gabapentin 600 MG Tablet PO ×2 (07:49→16:20)
[2020-09-22 08:45] VITALS: BP 143/75; PULSE 58; RESP 16; TEMP 36.8; O2SAT 96
--- NOTE | 2020-09-22 09:27 | MRI_ITS ---
STUDY: MR MRCP WITHOUT CONTRAST REASON FOR EXAM: Female, 60 years old. Biliary duct dilatation/MRCP TECHNIQUE: Standard MRCP technique was utilized. COMPARISON: CT 09/20/2020 FINDINGS: Gall Bladder: Gall bladder is surgically absent. Cystic duct: Normal with no demonstrated fixed filling defect. Intrahepatic ducts: Moderate intrahepatic biliary ductal dilatation. Common hepatic duct: Moderate extrahepatic biliary ductal dilatation with the common hepatic duct measuring 12 mm in diameter likely from cholecystectomy change. Common bile duct: Mild dilatation without definite stricture, mass, or filling defect to suggest stone. Pancreatic duct: Normal with no demonstrated fixed filling defect, dilation or stricture. MRI/MRCP Abdomen without Contrast IMPRESSION: Postcholecystectomy biliary ductal dilatation without MR evidence of stricture, mass, or choledocholithiasis. Electronically Signed: Junior Gee MD at 13:37 EST Tel , Service support ,
--- NOTE | 2020-09-22 09:30 | PCM.PROGNOTE ---
Patient Problems: Active and Suspected Problems (Last Updated 09/21/20 @ 09:[address] Helena Aguayo MD) Bone lesion (Acute) Intractable low back pain (Acute) Encephalopathy acute (Acute) Subjective: Chief complaint: Follow-up after admission for acute on chronic low back pain/left hip pain, encephalopathy, right femoral lesion and biliary duct/CBD dilatation. Patient seen and examined. No acute events overnight. She stated that her back and left hip pain still there but she has been trying to go with the order premedication and not asking for more. When I interviewed her today, she was calm and cooperative. Her vital signs are stable. - Physical Exam Vitals/I&O's: Vital Signs Temp Pulse Resp BP Pulse Ox 97.4 F L 60 18 142/70 H 98 09/22/20 02:44 09/22/20 02:44 09/22/20 02:44 09/22/20 02:44 09/22/20 02:44 Oxygen Delivery Method Room Air Weight: 218 lb 4.122 oz Body Mass Index (BMI) 35.3 Finger Stick Blood Glucose 130 Intake and Output for Last 24 Hours 09/20/20 09/21/20 09/22/20 23:59 23:59 23:59 Intake Total 3558.33 / 3558.33 3179.16 / 3179.16 300 / 300 Output Total 3600 / 3600 3750 / 3750 900 / 900 Balance -41.67 / -41.67 -570.84 / -570.84 -600 / -600 General: Alert, Oriented x3, Cooperative, No apparent distress HEENT: Atraumatic, PERRLA, EOMI, Normocephalic Oral: Moist Mucosa, No Gingival or Mucosal Lesions/ Ulcerations Neck: Supple, No JVD, Negative Carotid Bruits, Trachea Midline, Thyroid Normal Size and Texture Lungs: Clear to auscultation, No rhonchi, No wheeze, No rales Cardiovascular: Regular rate, Regular Rhythm, Normal S1, Normal S2, PMI Normal Abdomen: Bowel Sounds Present, Soft, Non Tender, Non-Distended, No Hepato-splenomegaly, Obese Extremities: No clubbing, No cyanosis, No edema Skin: No rashes, No breakdown Lymphatic: No Cervical, Supraclavicular, or Inguinal Adenopathy Neurological: Cranial nerves II-XII grossly intact, - - Paraparesis. Psych/Mental Status: Normal Affect, Appropriate Laboratory Results 09/21/20 10:58: POC Glucose 129 H 09/21/20 16:11: POC Glucose 229 H 09/21/20 22:37: POC Glucose 101 Clinical Impression(s) from Imaging Studies Bone Scan Nuclear Medicine 09/21/20 05:55 IMPRESSION: No scintigraphic evidence metastatic disease. Electronically Signed: Junior Gee MD at 10:02 EST Tel , Service support , Current Medications Acetaminophen (Acetaminophen 325 Mg Tablet) 650 mg PO Q6H PRN PRN PRN Reason: Pain Score 1-10/Temp > 100.7 F Last Admin: 09/20/20 21:26 Dose: 650 mg Documented by: Al Hydroxide/Mg Hydroxide (Mag Hydrox/Al Hydrox/Simeth 30 Ml Udc) 30 ml PO Q6H PRN PRN PRN Reason: Gastric Burning Albuterol Sulfate (Albuterol 2.5 Mg/3 Ml Vial.Neb.) 2.5 mg INHALATION Q2H PRN PRN PRN Reason: Dyspnea, wheezing Atorvastatin Calcium (Atorvastatin Calcium 20 Mg Tablet) 20 mg PO QHS [facility] Last Admin: 09/21/20 22:42 Dose: 20 mg Documented by: Baclofen (Baclofen 10 Mg Tablet) 10 mg PO Q8H PRN PRN PRN Reason: back spasms Last Admin: 09/22/20 02:49 Dose: 10 mg Documented by: Buspirone HCl (Buspirone 15 Mg Tablet) 15 mg PO TID PRN PRN PRN Reason: mood Last Admin: 09/20/20 08:32 Dose: 15 mg Documented by: Enoxaparin Sodium (Enoxaparin 40 Mg/0.4 Ml Syringe) 40 mg SC DAILY [facility] Last Admin: 09/21/20 09:48 Dose: 40 mg Documented by: Ferrous Gluconate (Ferrous Gluconate 324 Mg Tablet) [facility] Last Admin: 09/22/20 07:48 Dose: 324 mg Documented by: Fluoxetine HCl (Fluoxetine 10 Mg Capsule) 10 mg PO DAILY [facility] Last Admin: 09/21/20 09:49 Dose: 10 mg Documented by: Gabapentin (Gabapentin 300 Mg Capsule) 900 mg PO QHS [facility] Last Admin: 09/21/20 22:42 Dose: 900 mg Documented by: Gabapentin (Gabapentin 600 Mg Tablet) 600 mg PO BIDCM [facility] Last Admin: 09/22/20 07:49 Dose: 600 mg Documented by: Guaifenesin (Guaifenesin 10 Ml Udc (200mg/10ml)) 20 ml PO Q4H PRN PRN PRN Reason: COUGH Hydralazine HCl (Hydralazine 20 Mg/Ml Vial) 10 mg IV Q4H PRN PRN PRN Reason: SBP > 160 Insulin Human Lispro (Insulin Lispro 100 Unit/Ml Insuln.Pen) 0 unit SC [facility]; Protocol Last Admin: 09/22/20 06:28 Dose: Not Given Documented by: Levothyroxine Sodium (Levothyroxine 150 Mcg Tablet) 150 mcg PO DAILY@0600 [facility] Last Admin: 09/22/20 06:31 Dose: 150 mcg Documented by: Lidocaine (Lidocaine 5% Patch) 3 patch TOPICAL DAILY [facility]; Protocol Last Admin: 09/21/20 09:48 Dose: 3 patch Documented by: Lorazepam (Lorazepam 1 Mg Tablet) 1 mg PO BID PRN PRN PRN Reason: ANXIETY Last Admin: 09/21/20 22:49 Dose: 1 mg Documented by: Magnesium Hydroxide (Magnesium Hydroxide 30 Ml Udc) 30 ml PO DAILY PRN PRN PRN Reason: Constipation Last Admin: 09/19/20 11:57 Dose: 30 ml Documented by: Melatonin (Melatonin 3 Mg Tablet) 3 mg PO QHS PRN PRN PRN Reason: INSOMNIA Methylprednisolone (Methylprednisolone Dosepak 4 Mg Box) 4 mg PO 0800,2200 [facility]; Taper Stop: 09/23/20 08:59 Last Admin: 09/22/20 07:48 Dose: 4 mg Documented by: Nicotine (Nicotine 7 Mg Patch) 7 mg TD DAILY [facility] Last Admin: 09/21/20 09:49 Dose: 7 mg Documented by: Nystatin (Nystatin Powder 15gm Bottle) 1 applic TOPICAL BID [facility]; Protocol Last Admin: 09/21/20 22:49 Dose: 1 applicatio Documented by: Ondansetron HCl (Ondansetron 4 Mg/2 Ml Vial) 4 mg IV Q8H PRN PRN PRN Reason: NAUSEA/VOMITING Last Admin: 09/19/20 10:18 Dose: 4 mg Documented by: Oxycodone HCl (Oxycodone Cr 15 Mg Tablet) 15 mg PO BID [facility] Last Admin: 09/21/20 22:49 Dose: 15 mg Documented by: Oxycodone HCl (Oxycodone 5 Mg Tablet) 5 mg PO Q6H PRN PRN PRN Reason: PAIN 6-10/10 Last Admin: 09/22/20 06:32 Dose: 5 mg Documented by: Pantoprazole Sodium (Pantoprazole Sodium 40 Mg Tablet) 40 mg PO BID PRN PRN PRN Reason: stomach Last Admin: 09/19/20 08:18 Dose: 40 mg Documented by: Polyethylene Glycol (Polyethylene Glycol 3350 17 Gm Packet) 17 gm PO DAILY [facility] Last Admin: 09/21/20 09:51 Dose: Not Given Documented by: Prochlorperazine Edisylate (Prochlorperazine 10 Mg/2 Ml Vial) 5 mg IV Q4H PRN PRN PRN Reason: Breakthrough nausea/vomiting Psyllium Hydrophilic Mucilloid (Psyllium 1 Packet) 1 packet PO DAILY PRN PRN PRN Reason: Constipation Senna/Docusate Sodium (Senna/Docusate Sodium 1 Tablet) 2 tablet PO BID PRN PRN PRN Reason: Constipation Last Admin: 09/21/20 04:35 Dose: 2 tablet Documented by: Sodium Chloride (0.9% Saline Lock 10 Ml Syringe) 10 - 40 ml IV UD PRN PRN Reason: SALINE FLUSH Last Admin: 09/20/20 16:43 Dose: 10 ml Documented by: Throat Lozenges (Benzocaine/Menthol 1 Lozenge) 1 lozenge MUCOUS MEM Q2H PRN PRN PRN Reason: SORE THROAT Topiramate (Topiramate 25 Mg Tablet) 25 mg PO BID [facility] Last Admin: 09/21/20 22:41 Dose: 25 mg Documented by: Medical Necessity - Tobacco Use Smoking Status: Former smoker Tobacco Use: Cigarettes Assessment/Plan All Active Problems (Last Updated 09/21/20 @ 09:[address] Helena Aguayo MD) Bone lesion (Acute) Intractable low back pain (Acute) Encephalopathy acute (Acute) This is a 60 years old female patient presented to the emergency room because of back pain and abnormal blood work, found to have acute kidney injury, intractable acute on chronic low back pain with left hip pain, dysphagia and also found to have right femoral lesion on MRI of the pelvis. #1 acute on chronic intractable low back pain/left hip pain: Remained on baclofen, Neurontin, lidocaine patch, Medrol Dosepak and OxyIR as needed for pain as well as MS Contin twice daily. X-ray of the pelvis and hip showed no acute fractures. Dr. Comer was consulted, adjusted pain medications and no plan for interventions. Plan for PT OT, anticipate discharge home tomorrow, follow-up with pain management as outpatient. #2 acute kidney injury: Due to dehydration, resolved. Plan to discontinue IV fluids, encourage oral intake. #3 abnormal right femoral lesion: This was an incidental finding on MRI of the pelvis. Bone scan done and showed no evidence of metastatic disease. Protein electrophoresis and immunoglobulin levels done and pending as per oncology request. Oncology recommendations reviewed. Awaiting orthopedic surgery evaluation and recommendations. #4 biliary duct dilatation/CBD dilatation: Incidental finding on CT scan abdomen. Patient is status post cholecystectomy. LFT was unremarkable. CT scan reviewed by general surgery and obviously if the biliary dilatation is worse compared to CT scan that was done on 2019. Plan for MRCP. #5 hypertension: Blood pressure stable, she was on HCTZ which is on hold now. She is on IV hydralazine as needed. #6 hypothyroidism: Continue levothyroxine. #7 chronic anemia: Hemoglobin and hematocrit are stable, continue iron supplement. #8 COPD: Stable, on room air. Continue albuterol as needed. #9 anxiety and depression: Continue BuSpar, Ativan, melatonin. #10 questionable type 2 diabetes mellitus: Recent hemoglobin A1c was 5.9%. She is on Metformin, sliding scale as well. Continue Accu-Cheks. #11 DVT prophylaxis: Subcu Lovenox. This note was generated with [employer] dictation software. It may contain incorrect words, spelling, and punctuation that were not noted in checking the note before signing. Inpatient E&M: [id number] Subs Hosp L2
[2020-09-22] MEDS: oxyCODONE CR 15 MG Tablet PO ×2 (09:44→21:48)
[2020-09-22] MEDS: 0.9% Saline Lock 10 ML Syringe IV (09:54)
[2020-09-22] MEDS: LORazepam 2 MG/ML Syringe 1 MG IV (09:54)
[2020-09-22] MEDS: Lidocaine 5% Patch 3 PATCH TOPICAL (11:46)
[2020-09-22] MEDS: Enoxaparin 40 MG/0.4 ML Syringe SC (11:51)
[2020-09-22] MEDS: Nystatin Powder 15gm Bottle 1 APPLIC TOPICAL ×2 (11:52→21:49)
[2020-09-22] MEDS: Topiramate 25 MG Tablet PO ×2 (11:56→21:49)
[2020-09-22] MEDS: FLUoxetine 10 MG Capsule PO (11:56)
[2020-09-22 12:11] LABS: Bedside Glucose 125 mg/dL (70-110)
[2020-09-22 13:05] LABS: Bedside Glucose 130 mg/dL (70-110)
[2020-09-22 14:20] VITALS: BP 145/68; PULSE 84; RESP 16; TEMP 36.3; O2SAT 97
--- NOTE | 2020-09-22 16:09 | CON.PCM_ITS ---
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 She has had chronic low back and left hip pain. Treated by Dr. Waldron. Reportedly she was brought into the hospital for evaluation and treatment of her left lower back and hip pain. Been using gabapentin for her pain. Patient does use a wheelchair. She barely uses her right leg to transfer. He has been unable to walk for about 2- 1/2 years after her second back surgery at [facility]. She denies any severe right hip or thigh pain. She does have chronic leg pain requiring treatment and medica tion bilaterally she denies recent fever chills or systemic symptoms. She has no known history of primary or metastatic cancer. [] Past Medical History Past Medical History (Chronic Problems): Chronic Problems (Last Updated 09/21/20 @ 09:[address] Helena Aguayo MD) Complex ovarian cyst (Chronic) cea and ca125 ordered Major depressive disorder (Chronic) Anxiety (Chronic) GERD without esophagitis (Chronic) Chronic cluster headache, not intractable (Chronic) Age-related osteoporosis without current pathological fracture (Chronic) Primary generalized (osteo)arthritis (Chronic) Other intervertebral disc degeneration, lumbar region (Chronic) Hypothyroidism (Chronic) Anemia (Chronic) COPD (chronic obstructive pulmonary disease) (Chronic) Muscle weakness (Chronic) Spinal stenosis, lumbar region without neurogenic claudication (Chronic) Neuromuscular scoliosis (Chronic) Chronic low back pain (Chronic) Paraplegia (Chronic) Tobacco use disorder (Chronic) Morbid obesity (Chronic) HTN (hypertension) (Chronic) HLD (hyperlipidemia) (Chronic) Dysthymic disorder (Chronic) Diabetes mellitus type 2, uncontrolled, without complications (Chronic) Chronic Airway Obstruction NEC (Chronic) Medical History: Medical History (Last Updated 09/21/20 @ 09:[address] Helena Aguayo MD) Major depressive disorder (Chronic) F32.9 Anxiety (Chronic) F41.9 GERD without esophagitis (Chronic) K21.9 Chronic cluster headache, not intractable (Chronic) G44.029 Age-related osteoporosis without current pathological fracture (Chronic) M81.0 Primary generalized (osteo)arthritis (Chronic) M15.0 Other intervertebral disc degeneration, lumbar region (Chronic) M51.36 Hypothyroidism (Chronic) E03.9 Anemia (Chronic) D64.9 COPD (chronic obstructive pulmonary disease) (Chronic) J44.9 Muscle weakness (Chronic) M62.81 Spinal stenosis, lumbar region without neurogenic claudication (Chronic) M48.061 Neuromuscular scoliosis (Chronic) M41.40 Chronic low back pain (Chronic) M54.5, G89.29 Paraplegia (Chronic) G82.20 Allergies NSAIDS (Non-Steroidal Anti-Inflamma Allergy (Verified 09/17/20 19:58) GASTRIC BYPASS trazodone Adverse Reaction (Verified 09/17/20 19:58) Other migraine Home Medications: Ambulatory Orders Medication Instructions Recorded Calcium Citrate/Vitamin D3 1 ea PO BID 04/09/16 [Calcium Citrate-Vit D3 Tablet] Biotin 10,000 mcg PO DAILY 02/16/18 Ferrous Gluconate 325 mg PO DAILY 02/16/18 Gabapentin [Neurontin] 600 mg PO BID 02/16/18 Topiramate [Topamax] 25 mg PO BID 02/16/18 fudbxptoeokb-reonoiir-mdgkto tablet 1 tab PO DAILY 02/26/18 Lorazepam [Ativan] 1 mg PO BID PRN PRN #10 tab 03/30/18 Oxycodone HCl/Acetaminophen 1 ea PO BID PRN PRN 12/20/18 [Percocet 5-325 mg Tablet] baclofen 10 mg tablet 10 mg PO Q6H PRN PRN tab 03/05/19 gabapentin 300 mg capsule 900 mg PO QHS cap 03/05/19 meloxicam 15 mg tablet 15 mg PO DAILY tab 03/05/19 Atorvastatin Calcium [Lipitor] 20 mg PO QHS 08/08/19 Oxycodone Myristate [Xtampza ER] 27 mg PO BID 10/18/19 Polyethylene Glycol 3350 17 gm PO DAILY 10/18/19 Albuterol Sulfate [Albuterol 2 puff INHALATION Q4H PRN 09/17/20 Sulfate Hfa] Buspirone HCl 15 mg PO TID PRN 09/17/20 Fluoxetine HCl [Prozac] 10 mg PO DAILY 09/17/20 Hydrochlorothiazide [Hctz] 25 mg PO DAILY 09/17/20 Levothyroxine Sodium [Synthroid] 150 mcg PO DAILY 09/17/20 Metformin HCl 1,000 mg PO BID 09/17/20 Pantoprazole Sodium [Protonix] 40 mg PO BID PRN 09/17/20 Surgical History: Surgical History (Last Updated 02/26/18 @ 16:12 by Kristie Collins) D&C H/O gastric bypass Z98.84 History of cholecystectomy Z98.890, Z90.49 Hydradenitis L73.2 removal-multiple S/P arthroscopic knee surgery Z98.890 S/P lumbar spine operation Z98.890 s/p nerve spine surgery s/p upper back surgery skin graft Surgical History: - - Cholecystectomy, bilateral oophorectomy most recently 03/07/18 secondary to complex ovarian cyst with postoperative diagnosis left ovarian dermoid cyst with ventral hernia as well as suprapubic preperitoneal abdominal wall mass with bilateral tubes, ovaries and cytological washings sent, Cristopher-en-Y, right knee arthroscopic surgery, cervical back surgery March 25, recent lumbar back surgery December 2017. 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 Lives: With Family Smoking Status: Former smoker Tobacco Use: Cigarettes Alcohol: None Drugs: None - *Family History Maternal Family History: Family History (Last Updated 02/26/18 @ 16:13 by Kristie Collins) Father Diabetes Hypertension Myocardial infarction Alcoholism Brother Myocardial infarction Alcoholism Mother CVA (cerebral vascular accident) History Items: Diabetes, High Cholesterol, Heart Disease, Hypertension Paternal Family History: Family History (Last Updated 02/26/18 @ 16:13 by Kristie Collins) Father Diabetes Hypertension Myocardial infarction Alcoholism Brother Myocardial infarction Alcoholism Mother CVA (cerebral vascular accident) History Items: Diabetes, High Cholesterol, Heart Disease, Hypertension Patient Problems: Active and Suspected Problems (Last Updated 09/21/20 @ 09:[address] Helena Aguayo MD) Bone lesion (Acute) Intractable low back pain (Acute) Encephalopathy acute (Acute) Objective: Review of systems on chart evaluated and updated. Patient is laying in bed. She is able to lift her right leg off the bed. She is barely able to lift the left leg off the bed. Palpation of the left thigh and hip region causes pain 9 out of 10. Palpation of the right hip and thigh caused pain 2 out of 10. No pain with axial loading of the right femur. No severe pain with axial loading of left femur. Positive straight leg raise on the left. Negative straight leg raise on the right. She has some contracture of the knees feet and ankle. She has subjective diminished light touch sensation throughout the legs which is not new. She had no bruising swelling or abnormal masses about the right thigh, hip region. No hip pain with rotation on the right. Mild hip pain with rotation on the left. xrays of the left hip and pelvis from September 18, 2020 reviewed showing no obvious acute fracture. Degenerative changes of the lumbar spine with internal fixation MRI scan of the pelvis from September 19, 2020 shows a intramedullary bone marrow lesion at the right subtrochanteric region of the femur. No obvious cortical disruption or pathologic fractures. No obvious surrounding soft tissue abnormalities Bone scan reviewed showing no obvious abnormal increased uptake involving the right femur or elsewhere throughout the spine. - Physical Exam Vitals/I&O's: Vital Signs Temp Pulse Resp BP Pulse Ox 97.4 F L 84 16 145/68 H 97 09/22/20 14:20 09/22/20 14:20 09/22/20 14:20 09/22/20 14:20 09/22/20 14:20 Oxygen Delivery Method Room Air Weight: 99 kg Body Mass Index (BMI) 35.3 Finger Stick Blood Glucose 130 Intake and Output for Last 24 Hours 09/20/20 09/21/20 09/22/20 23:59 23:59 23:59 Intake Total 3558.33 / 3558.33 3179.16 / 3179.16 300 / 300 Output Total 3600 / 3600 3750 / 3750 1825 / 1825 Balance -41.67 / -41.67 -570.84 / -570.84 -1525 / -1525 Laboratory Results 09/21/20 16:11: POC Glucose 229 H 09/21/20 22:37: POC Glucose 101 09/22/20 06:26: POC Glucose 130 H 09/22/20 12:02: POC Glucose 125 H Current Medications Acetaminophen (Acetaminophen 325 Mg Tablet) 650 mg PO Q6H PRN PRN PRN Reason: Pain Score 1-10/Temp > 100.7 F Last Admin: 09/20/20 21:26 Dose: 650 mg Documented by: Al Hydroxide/Mg Hydroxide (Mag Hydrox/Al Hydrox/Simeth 30 Ml Udc) 30 ml PO Q6H PRN PRN PRN Reason: Gastric Burning Albuterol Sulfate (Albuterol 2.5 Mg/3 Ml Vial.Neb.) 2.5 mg INHALATION Q2H PRN PRN PRN Reason: Dyspnea, wheezing Atorvastatin Calcium (Atorvastatin Calcium 20 Mg Tablet) 20 mg PO QHS [facility] Last Admin: 09/21/20 22:42 Dose: 20 mg Documented by: Baclofen (Baclofen 10 Mg Tablet) 10 mg PO Q8H PRN PRN PRN Reason: back spasms Last Admin: 09/22/20 02:49 Dose: 10 mg Documented by: Buspirone HCl (Buspirone 15 Mg Tablet) 15 mg PO TID PRN PRN PRN Reason: mood Last Admin: 09/20/20 08:32 Dose: 15 mg Documented by: Enoxaparin Sodium (Enoxaparin 40 Mg/0.4 Ml Syringe) 40 mg SC DAILY [facility] Last Admin: 09/22/20 11:51 Dose: 40 mg Documented by: Ferrous Gluconate ([facility]ous [facility] 324 Mg Tablet) [facility] Last Admin: 09/22/20 07:48 Dose: 324 mg Documented by: Fluoxetine HCl (Fluoxetine 10 Mg Capsule) 10 mg PO DAILY [facility] Last Admin: 09/22/20 11:56 Dose: 10 mg Documented by: Gabapentin (Gabapentin 300 Mg Capsule) 900 mg PO QHS [facility] Last Admin: 09/21/20 22:42 Dose: 900 mg Documented by: [facility]apentin ([facility] 600 Mg Tablet) [facility] Last Admin: 09/22/20 07:49 Dose: 600 mg Documented by: Guaifenesin (Guaifenesin 10 Ml Udc (200mg/10ml)) 20 ml PO Q4H PRN PRN PRN Reason: COUGH Hydralazine HCl (Hydralazine 20 Mg/Ml Vial) 10 mg IV Q4H PRN PRN PRN Reason: SBP > 160 Insulin Human Lispro (Insulin Lispro 100 Unit/Ml Insuln.Pen) 0 unit [facility]; Protocol Last Admin: 09/22/20 12:04 Dose: Not Given Documented by: Levothyroxine Sodium (Levothyroxine 150 Mcg Tablet) 150 mcg PO DAILY@0600 [facility] Last Admin: 09/22/20 06:31 Dose: 150 mcg Documented by: Lidocaine (Lidocaine 5% Patch) 3 patch TOPICAL DAILY [facility]; Protocol Last Admin: 09/22/20 11:46 Dose: 3 patch Documented by: Lorazepam (Lorazepam 1 Mg Tablet) 1 mg PO BID PRN PRN PRN Reason: ANXIETY Last Admin: 09/21/20 22:49 Dose: 1 mg Documented by: Magnesium Hydroxide (Magnesium Hydroxide 30 Ml Udc) 30 ml PO DAILY PRN PRN PRN Reason: Constipation Last Admin: 09/19/20 11:57 Dose: 30 ml Documented by: Melatonin (Melatonin 3 Mg Tablet) 3 mg PO QHS PRN PRN PRN Reason: INSOMNIA Methylprednisolone (Methylprednisolone Dosepak 4 Mg Box) 4 mg PO 0800,2200 [facility]; Taper Stop: 09/23/20 08:59 Last Admin: 09/22/20 07:48 Dose: 4 mg Documented by: Nicotine (Nicotine 7 Mg Patch) 7 mg TD DAILY [facility] Last Admin: 09/22/20 11:54 Dose: 7 mg Documented by: Nystatin (Nystatin Powder 15gm Bottle) 1 applic TOPICAL BID [facility]; Protocol Last Admin: 09/22/20 11:52 Dose: 1 applicatio Documented by: Ondansetron HCl (Ondansetron 4 Mg/2 Ml Vial) 4 mg IV Q8H PRN PRN PRN Reason: NAUSEA/VOMITING Last Admin: 09/19/20 10:18 Dose: 4 mg Documented by: Oxycodone HCl (Oxycodone Cr 15 Mg Tablet) 15 mg PO BID [facility] Last Admin: 09/22/20 09:44 Dose: 15 mg Documented by: Oxycodone HCl (Oxycodone 5 Mg Tablet) 5 mg PO Q6H PRN PRN PRN Reason: PAIN 6-10/10 Last Admin: 09/22/20 14:32 Dose: 5 mg Documented by: Pantoprazole Sodium (Pantoprazole Sodium 40 Mg Tablet) 40 mg PO BID PRN PRN PRN Reason: stomach Last Admin: 09/19/20 08:18 Dose: 40 mg Documented by: Polyethylene Glycol (Polyethylene Glycol 3350 17 Gm Packet) 17 gm PO DAILY [facility] Last Admin: 09/22/20 11:52 Dose: Not Given Documented by: Prochlorperazine Edisylate (Prochlorperazine 10 Mg/2 Ml Vial) 5 mg IV Q4H PRN PRN PRN Reason: Breakthrough nausea/vomiting Psyllium Hydrophilic Mucilloid (Psyllium 1 Packet) 1 packet PO DAILY PRN PRN PRN Reason: Constipation Senna/Docusate Sodium (Senna/Docusate Sodium 1 Tablet) 2 tablet PO BID PRN PRN PRN Reason: Constipation Last Admin: 09/21/20 04:35 Dose: 2 tablet Documented by: Sodium Chloride (0.9% Saline Lock 10 Ml Syringe) 10 - 40 ml IV UD PRN PRN Reason: SALINE FLUSH Last Admin: 09/22/20 09:54 Dose: 10 ml Documented by: Throat Lozenges (Benzocaine/Menthol 1 Lozenge) 1 lozenge MUCOUS MEM Q2H PRN PRN PRN Reason: SORE THROAT Topiramate (Topiramate 25 Mg Tablet) 25 mg PO BID DONNY Last Admin: 09/22/20 11:56 Dose: 25 mg Documented by: Assessment/Plan All Active Problems (Last Updated 09/21/20 @ 09:[address] Helena Aguayo MD) Bone lesion (Acute) Intractable low back pain (Acute) Encephalopathy acute (Acute) Bone marrow lesion, unclear etiology, right subtrochanteric femoral region, incidental finding on MRI for left hip and leg pain. No known primary cancer. Possibility of multiple myeloma or other etiology noted by oncologist. CAT scan of the lesion could be considered to further evaluate for potential cortical involvement and/or pathologic fracture possibility. I would recommend referral to an orthopedic oncologist for further evaluation and treatment, could consider Dr. Amaury Musa in [place] or a orthopedic oncologist through the [facility] or [facility]. certainly would not recommend intramedullary nailing at this point with unclear diagnosis and without obvious cortical disruption weakening the bone. Patient understands this is a complex situation and therefore I would recommend input from an orthopedic oncologist prior to proceeding with any surgical intervention. Therefore I will see her back on an as-needed basis only. She understands and agrees. All of her questions answered.
[2020-09-22] MEDS: busPIRone 15 MG TABLET PO (16:22)
[2020-09-22 17:15] LABS: Bedside Glucose 98 mg/dL (70-110)
[2020-09-22 20:08] LABS: Free Kappa Light Chains 35.1 mg/L (3.3-19.4); Free Lambda Light Chains 18.9 mg/L (5.7-26.3); Immunoglobulin A 263 mg/dL (87-352); Immunoglobulin G 582 mg/dL (586-1602); PROEL- A/G Ratio 1.4 (0.7-1.7); PROEL- Albumin 3.2 g/dL (2.9-4.4); PROEL- Alpha-1 Globulin 0.2 g/dL (0.0-0.4); PROEL- Alpha-2 Globulin 0.8 g/dL (0.4-1.0); PROEL- Beta Globulin 0.7 g/dL (0.7-1.3); PROEL- Gamma Globulin 0.6 g/dL (0.4-1.8); PROEL- Globulin, Total 2.3 g/dL (2.2-3.9); PROEL- TOTAL PROTEIN 5.5 g/dL (6.0-8.5)
[2020-09-22 20:19] VITALS: BP 146/80; PULSE 67; RESP 18; TEMP 36.8; O2SAT 97
[2020-09-22 20:24] LABS: Immunoglobulin M 47 mg/dL (26-217)
[2020-09-22] MEDS: Acetaminophen 325 MG Tablet 650 MG PO (20:32)
[2020-09-22] MEDS: Gabapentin 300 MG Capsule 900 MG PO (21:49)
[2020-09-22] MEDS: Atorvastatin Calcium 20 MG Tablet PO (21:50)
[2020-09-22] MEDS: LORazepam 1 MG Tablet PO (21:57)
[2020-09-22 22:01] LABS: Bedside Glucose 107 mg/dL (70-110)
[2020-09-23 02:46] VITALS: BP 142/82; PULSE 62; RESP 18; TEMP 36.7; O2SAT 96
[2020-09-23] MEDS: Levothyroxine 150 MCG Tablet PO (06:23)
[2020-09-23 06:30] LABS: Bedside Glucose 125 mg/dL (70-110)
--- NOTE | 2020-09-23 08:25 | DCINST_ITS ---
- Discharge Diagnoses Current Active Problems: Current Active and Chronic Problems (Last Updated 09/21/20 @ 09:[address] Helena Aguayo MD) Bone lesion (Acute) Intractable low back pain (Acute) Encephalopathy acute (Acute) Major depressive disorder (Chronic) Anxiety (Chronic) GERD without esophagitis (Chronic) Chronic cluster headache, not intractable (Chronic) Age-related osteoporosis without current pathological fracture (Chronic) Hypothyroidism (Chronic) Anemia (Chronic) COPD (chronic obstructive pulmonary disease) (Chronic) Spinal stenosis, lumbar region without neurogenic claudication (Chronic) Neuromuscular scoliosis (Chronic) Chronic low back pain (Chronic) Tobacco use disorder (Chronic) Morbid obesity (Chronic) HTN (hypertension) (Chronic) HLD (hyperlipidemia) (Chronic) Dysthymic disorder (Chronic) Diabetes mellitus type 2, uncontrolled, without complications (Chronic) You will use the following diet at home:: Calorie/Carbohydrate Controlled (specify 1200, 1400, etc) - 1800 elian., Cardiac Your food should be the consistency of: Regular Discharge Activity: Return to Normal Activity Weight Bearing Status: Weight bearing as tolerated Call your doctor if you observe: Fever of 101 or Higher, Shortness of breath, Dizziness, Fainting spells, Chest pain, Increased palpitations (irregular heartbeat), Uncontrolled pain Additional Instructions: Elevate your legs above the level of your body by couple of pillows when you are lying down. Allergies/Adverse Reactions: Allergies NSAIDS (Non-Steroidal Anti-Inflamma Allergy (Verified 09/17/20 19:58) GASTRIC BYPASS trazodone Adverse Reaction (Verified 09/17/20 19:58) Other migraine Medications to take at Discharge Calcium Citrate/Vitamin D3 [Calcium Citrate-Vit D3 Tablet] 1 ea PO BID 04/09/16 Biotin 10,000 mcg PO DAILY 02/16/18 Ferrous Gluconate 325 mg PO DAILY 02/16/18 Gabapentin [Neurontin] 600 mg PO BID 02/16/18 Topiramate [Topamax] 25 mg PO BID 02/16/18 lftzcihytmrs-vtqmsaor-kuxdyf tablet 1 tab PO DAILY 02/26/18 Lorazepam [Ativan] 1 mg PO BID PRN PRN #10 tab 03/30/18 baclofen 10 mg tablet 10 mg PO Q6H PRN PRN tab 03/05/19 gabapentin 300 mg capsule 900 mg PO QHS cap 03/05/19 meloxicam 15 mg tablet 15 mg PO DAILY tab 03/05/19 Atorvastatin Calcium [Lipitor] 20 mg PO QHS 08/08/19 Polyethylene Glycol 3350 17 gm PO DAILY 10/18/19 Albuterol Sulfate [Albuterol Sulfate Hfa] 2 puff INHALATION Q4H PRN 09/17/20 Buspirone HCl 15 mg PO TID PRN 09/17/20 Fluoxetine HCl [Prozac] 10 mg PO DAILY 09/17/20 Levothyroxine Sodium [Synthroid] 150 mcg PO DAILY 09/17/20 Metformin HCl 1,000 mg PO BID 09/17/20 Pantoprazole Sodium [Protonix] 40 mg PO BID PRN 09/17/20 Oxycodone HCl/Acetaminophen [Percocet 5-325 mg Tablet] 1 tab PO Q6H PRN PRN 4 Days #16 tab 09/23/20 Oxycodone Myristate [Xtampza ER] 27 mg PO BID 5 Days #10 09/23/20 The following prescriptions were given: Oxycodone HCl/Acetaminophen [Percocet 5-325 mg Tablet] 1 tab PO Q6H PRN PRN 4 Days #16 tab PRN Reason: Pain Score 1-10/10 Prescription Printed Oxycodone Myristate [Xtampza ER] 27 mg PO BID 5 Days #10 Prescription Printed Primary Care Physician: Kevin Bah MD [Primary Care Provider] - Please follow up with your Primary Care Physician in: 1 week. Test Results: Test results from this visit will be discussed in further detail at your follow- up appointment, if applicable. Please Follow Up With: Moshe Lucio MD When: 1-2 weeks. Please Follow Up With: Will Comer MD When: 1 week.
[2020-09-23 08:48] VITALS: BP 156/86; PULSE 70; RESP 18; TEMP 36.8; O2SAT 95
[2020-09-23] MEDS: Enoxaparin 40 MG/0.4 ML Syringe SC (08:57)
[2020-09-23] MEDS: Gabapentin 600 MG Tablet PO (08:57)
[2020-09-23] MEDS: Acetaminophen 325 MG Tablet 650 MG PO (08:57)
[2020-09-23] MEDS: Topiramate 25 MG Tablet PO (08:57)
[2020-09-23] MEDS: oxyCODONE CR 15 MG Tablet PO (08:58)
[2020-09-23] MEDS: Senna/Docusate Sodium 1 Tablet 2 TABLET PO (08:58)
[2020-09-23] MEDS: MethylPREDNISolone DosePak 4 MG BOX PO (08:59)
[2020-09-23] MEDS: Baclofen 10 MG Tablet PO (08:59)
[2020-09-23] MEDS: Ferrous Gluconate 324 MG Tablet PO (08:59)
[2020-09-23] MEDS: oxyCODONE 5 MG Tablet PO (08:59)
[2020-09-23] MEDS: Nystatin Powder 15gm Bottle 1 APPLIC TOPICAL (09:00)
[2020-09-23] MEDS: FLUoxetine 10 MG Capsule PO (09:00)
--- NOTE | 2020-09-23 09:12 | CASEMGMT ---
TODD MEZA in to discuss discharge planning with patient. Patient states she has private aide at home and denies need for HHC at this time. TODD MEZA instructed patient should she reconsider, she can follow-up with PCP. Patient voiced understanding and had no further questions at this time.
--- NOTE | 2020-09-23 09:26 | PHA.DC.MR ---
Pharmacy Service has performed discharge medication reconciliation for this patient. The patient's discharge medication list was reviewed for discrepancies and discrepancies were resolved. Home Medications Calcium Citrate/Vitamin D3 [Calcium Citrate-Vit D3 Tablet] 1 ea PO BID 04/09/16 Biotin 10,000 mcg PO DAILY 02/16/18 Ferrous Gluconate 325 mg PO DAILY 02/16/18 Gabapentin [Neurontin] 600 mg PO BID 02/16/18 Topiramate [Topamax] 25 mg PO BID 02/16/18 bojculqxkonf-ymnuasbi-fxbkcp tablet 1 tab PO DAILY 02/26/18 Lorazepam [Ativan] 1 mg PO BID PRN PRN #10 tab 03/30/18 baclofen 10 mg tablet 10 mg PO Q6H PRN PRN tab 03/05/19 gabapentin 300 mg capsule 900 mg PO QHS cap 03/05/19 meloxicam 15 mg tablet 15 mg PO DAILY tab 03/05/19 Atorvastatin Calcium [Lipitor] 20 mg PO QHS 08/08/19 Polyethylene Glycol 3350 17 gm PO DAILY 10/18/19 Albuterol Sulfate [Albuterol Sulfate Hfa] 2 puff INHALATION Q4H PRN 09/17/20 Buspirone HCl 15 mg PO TID PRN 09/17/20 Fluoxetine HCl [Prozac] 10 mg PO DAILY 09/17/20 Levothyroxine Sodium [Synthroid] 150 mcg PO DAILY 09/17/20 Metformin HCl 1,000 mg PO BID 09/17/20 Pantoprazole Sodium [Protonix] 40 mg PO BID PRN 09/17/20 Oxycodone HCl/Acetaminophen [Percocet 5-325 mg Tablet] 1 tab PO Q6H PRN PRN 4 Days #16 tab 09/23/20 Oxycodone Myristate [Xtampza ER] 27 mg PO BID 5 Days #10 09/23/20
--- NOTE | 2020-09-23 11:54 | DS.PCM_ITS ---
Discharge Date and Diagnosis - Problem List Patient Problems: Active and Suspected Problems (Last Updated 09/21/20 @ 09:[address] Helena Aguayo MD) Bone lesion (Acute) Intractable low back pain (Acute) Date of Admission: 09/17/20 Date of Discharge: 09/23/20 - Primary Discharge Diagnosis Acute Problems: Active Problems (Last Updated 09/21/20 @ 09:[address] Helena Aguayo MD) #1 acute on chronic intractable low back pain/left hip pain. #2 acute kidney injury, resolved. #3 abnormal right femoral bone marrow lesion of unclear etiology. #3 biliary duct dilatation/CBD dilation, in context of cholecystectomy years ago, probably chronic. MRCP was negative. - Secondary Discharge Diagnosis Chronic Problems: Chronic Problems (Last Updated 09/21/20 @ 09:[address] Helena Aguayo MD) Complex ovarian cyst (Chronic) cea and ca125 ordered Major depressive disorder (Chronic) Anxiety (Chronic) GERD without esophagitis (Chronic) Chronic cluster headache, not intractable (Chronic) Age-related osteoporosis without current pathological fracture (Chronic) Primary generalized (osteo)arthritis (Chronic) Other intervertebral disc degeneration, lumbar region (Chronic) Hypothyroidism (Chronic) Anemia (Chronic) COPD (chronic obstructive pulmonary disease) (Chronic) Muscle weakness (Chronic) Spinal stenosis, lumbar region without neurogenic claudication (Chronic) Neuromuscular scoliosis (Chronic) Chronic low back pain (Chronic) Paraplegia (Chronic) Tobacco use disorder (Chronic) Morbid obesity (Chronic) HTN (hypertension) (Chronic) HLD (hyperlipidemia) (Chronic) Dysthymic disorder (Chronic) Diabetes mellitus type 2, uncontrolled, without complications (Chronic) Chronic Airway Obstruction NEC (Chronic) Hospital Course and Treatment Imaging Results: Clinical Impression(s) from Imaging Studies Chest X-Ray 09/17/20 17:35 IMPRESSION: No acute cardiopulmonary disease or major interval change. Electronically Signed: Mike Boles DO at 19:24 EST Tel [phone], Service support , Brain CT 09/17/20 18:51 IMPRESSION: Normal unenhanced CT scan of the brain. Electronically Signed: Mike Boles DO at 19:23 EST Tel [phone], Service support , Hip/Pelvis X-Ray 09/18/20 04:52 IMPRESSION: Age consistent hip and SI joint arthrosis. No demonstrated fracture or suspicious osseous lesion. However, hip and pelvic fractures in patients of this age can be subtle, if there is strong clinical suspicion of a fracture, recommend further evaluation with CT Surgical hardware in the lower lumbar spine and across the SI joints free of complication Electronically Signed: Johnny Hood MD at 8:22 EST , Service support , Pelvis MRI 09/19/20 09:05 IMPRESSION: 1. Normal unenhanced MRI of the pelvis. 2. Farrell catheter within the collapsed bladder. 3. 1.5 cm marrow replacing lesion with geographic margins of the proximal shaft of the right femur and correlation with bone scan would be useful to evaluate for other lesions. Electronically Signed: Junior Gee MD at 8:25 EST Tel , Service support , Abdomen/Pelvis CT 09/20/20 14:47 IMPRESSION: Bladder wall thickening concerning for underlying cystitis. Interval worsening of intra and extrahepatic ductal dilatation. Moderate amount of stool throughout the colon and rectum. Atherosclerosis. Electronically Signed: Nat Kerr MD at 17:26 EST Tel , Service support , Chest CT 09/20/20 14:47 IMPRESSION: Minimal bilateral atelectasis and/or scarring. Atherosclerosis. Multilevel postsurgical changes of the thoracic spine. Electronically Signed: Nat Kerr MD at 17:15 EST Tel , Service support , Bone Scan Nuclear Medicine 09/21/20 05:55 IMPRESSION: No scintigraphic evidence metastatic disease. Electronically Signed: Junior Gee MD at 10:02 EST Tel , Service support , MRCP 09/22/20 09:27 IMPRESSION: Postcholecystectomy biliary ductal dilatation without MR evidence of stricture, mass, or choledocholithiasis. Electronically Signed: Junior Gee MD at 13:37 EST Tel , Service support , Dr. Graff, orthopedic surgery. Dr. Comer, pain management. Dr. Lucio, oncology. Operations: None Procedures: None Summary of Care Provided: Patient seen and examined on the day of discharge and appeared to be stable to be discharged home. Her low back pain and left hip pain has been manageable with pain medication. No other complaints. Her vital signs were stable. This is a 60 years old female patient presented to the emergency room because of back pain and abnormal blood work, found to have acute kidney injury, intractable acute on chronic low back pain with left hip pain and also found to have right femoral lesion on MRI of the pelvis. #1 acute on chronic intractable low back pain/left hip pain: Treated medically with baclofen, Neurontin, Lidoderm patch, Medrol Dosepak, MS Contin twice daily as well as OxyIR as needed. X-ray of the pelvis and hip showed no acute fractures. Dr. Comer was consulted, adjusted pain medications and no plan for interventions. Patient discharged home in a stable condition, prescription was given for Percocet and oxycodone and requested to follow-up with Dr. Comer 1 week. #2 acute kidney injury: Due to dehydration and diuretics, treated with IV fluids and it is resolved. HCTZ was discontinued. #3 abnormal right femoral bone marrow lesion: This was an incidental finding on MRI of the pelvis. Bone scan done and showed no evidence of metastatic disease. Protein electrophoresis and immunoglobulin levels done and pending as per oncology request. Oncology requested orthopedic evaluation. Dr. Graff saw the patient and recommended no intervention at this time and recommended evaluation by orthopedic oncologist which can be done as outpatient. At this time, I think it is more appropriate to follow-up with oncology for definitive diagnosis. #4 biliary duct dilatation/CBD dilatation: Incidental finding on CT scan abdomen. Patient is status post cholecystectomy. LFT was unremarkable. MRCP done and showed biliary duct dilatation without evidence of stricture, mass or choledocholithiasis. Patient discharged home in a stable medical condition, discharged on oxycodone and Percocet as needed for pain, HCTZ discontinued because patient thinks that made her very dehydrated and weak, continued on her other previous home medications without any changes, plan to follow-up with Dr. Comer in 1 week, follow-up with oncology in 1 to 2 weeks and recommended follow-up with PCP in 1 week. Patient will need referral to orthopedic oncology as outpatient regarding the abnormal right femoral bone marrow lesion probably after oncology evaluates the patient and see if they can come up with a definitive diagnosis. This note was generated with [employer] dictation software. It may contain incorrect words, spelling, and punctuation that were not noted in checking the note before signing. Patient Problems: Active and Suspected Problems (Last Updated 09/21/20 @ 09:[address] Helena Aguayo MD) Bone lesion (Acute) Intractable low back pain (Acute) - Physical Exam Vitals/I&O's: Vital Signs Temp Pulse Resp BP Pulse Ox 98.2 F 70 18 156/86 H 95 09/23/20 08:48 09/23/20 08:48 09/23/20 08:48 09/23/20 08:48 09/23/20 08:48 Oxygen Delivery Method Room Air Weight: 219 lb 9.286 oz Body Mass Index (BMI) 35.3 Finger Stick Blood Glucose 130 Intake and Output for Last 24 Hours 09/21/20 09/22/20 09/23/20 23:59 23:59 23:59 Intake Total 3179.16 / 3179.16 300 / 550 250 / 250 Output Total 3750 / 3750 2375 / 3175 2350 / 2350 Balance -570.84 / -570.84 -2075 / -2625 -2099 / -2099 General: Alert, Oriented x3, Cooperative, No apparent distress HEENT: Atraumatic, PERRLA, EOMI, Normocephalic Oral: Moist Mucosa, No Gingival or Mucosal Lesions/ Ulcerations Neck: Supple, No JVD, Negative Carotid Bruits Lungs: Clear to auscultation, Normal air movement, No rhonchi, No wheeze, No rales Cardiovascular: Regular rate, Regular Rhythm, Normal S1, Normal S2, PMI Normal Abdomen: Bowel Sounds Present, Soft, Non Tender, Non-Distended, No Hepato- splenomegaly, Obese Extremities: No clubbing, No cyanosis, No edema Skin: No rashes, No breakdown Lymphatic: No Cervical, Supraclavicular, or Inguinal Adenopathy Neurological: Cranial nerves II-XII grossly intact, - - Paraparesis. Psych/Mental Status: Normal Affect, Appropriate Laboratory Results 09/21/20 05:45: Total Protein (PEP) 5.5 L, Albumin (PEP) 3.2, Globulin (PEP) 2.3, Albumin/Globulin (PEP) 1.4, Trbsl-2-Euzjycmoq 0.2, Hixpq-0-Qhywxwdfb 0.8, Beta Globulins 0.7, Gamma Globulins 0.6, M-Chad , PEP Note Comment:, PEP Interpretation Comment, IgG 582 L, IgA 263, IgM 47, Free [place] LC, Quant 35.1 H, Free Lambda LC, Quant 18.9, Free [place]/Lambda Ratio 1.86 H 09/22/20 06:26: POC Glucose 130 H 09/22/20 12:02: POC Glucose 125 H 09/22/20 16:19: POC Glucose 98 09/22/20 21:53: POC Glucose 107 09/23/20 06:24: POC Glucose 125 H Discharge Activity: Return to Normal Activity Weight Bearing Status: Weight bearing as tolerated Call your doctor if you observe: Fever of 101 or Higher, Shortness of breath, Dizziness, Fainting spells, Chest pain, Increased palpitations (irregular heartbeat), Uncontrolled pain Home Medications: Medications to take at Discharge Calcium Citrate/Vitamin D3 [Calcium Citrate-Vit D3 Tablet] 1 ea PO BID 04/09/16 Biotin 10,000 mcg PO DAILY 02/16/18 Ferrous Gluconate 325 mg PO DAILY 02/16/18 Gabapentin [Neurontin] 600 mg PO BID 02/16/18 Topiramate [Topamax] 25 mg PO BID 02/16/18 xtmlqnfwubfe-gpackdrt-sxlbob tablet 1 tab PO DAILY 02/26/18 Lorazepam [Ativan] 1 mg PO BID PRN PRN #10 tab 03/30/18 baclofen 10 mg tablet 10 mg PO Q6H PRN PRN tab 03/05/19 gabapentin 300 mg capsule 900 mg PO QHS cap 03/05/19 meloxicam 15 mg tablet 15 mg PO DAILY tab 03/05/19 Atorvastatin Calcium [Lipitor] 20 mg PO QHS 08/08/19 Polyethylene Glycol 3350 17 gm PO DAILY 10/18/19 Albuterol Sulfate [Albuterol Sulfate Hfa] 2 puff INHALATION Q4H PRN 09/17/20 Buspirone HCl 15 mg PO TID PRN 09/17/20 Fluoxetine HCl [Prozac] 10 mg PO DAILY 09/17/20 Levothyroxine Sodium [Synthroid] 150 mcg PO DAILY 09/17/20 Metformin HCl 1,000 mg PO BID 09/17/20 Pantoprazole Sodium [Protonix] 40 mg PO BID PRN 09/17/20 Oxycodone HCl/Acetaminophen [Percocet 5-325 mg Tablet] 1 tab PO Q6H PRN PRN 4 Days #16 tab 09/23/20 Oxycodone Myristate [Xtampza ER] 27 mg PO BID 5 Days #10 09/23/20 Following Prescriptions Were Given to Patient: Oxycodone HCl/Acetaminophen [Percocet 5-325 mg Tablet] 1 tab PO Q6H PRN PRN 4 Days #16 tab PRN Reason: Pain Score 1-10/10 Prescription Printed Oxycodone Myristate [Xtampza ER] 27 mg PO BID 5 Days #10 Prescription Printed Primary Care Physician: Kevin Bah MD [Primary Care Provider] - Please follow up with your Primary Care Physician in: 1 week. Please Follow Up With: Moshe Lucio MD When: 1-2 weeks. Please Follow Up With: Will Comer MD When: 1 week. Disposition: Home Minutes spent on discharge:: 33 Patient Condition:: Stable Medical Necessity - Tobacco Use Smoking Status: Former smoker Tobacco Use: Cigarettes Meaningful Use Info Meaningful Use Diagnoses (Choose all that apply): None applicable Inpatient E&M: 95890 Disch Hosp
--- NOTE | 2020-09-23 14:02 | CASEMGMT ---
Social Work Note Pt discharged home today. SHARITA placed a call to pt's CM Mariela Montano and updated her that pt discharged home today. SHARITA faxed discharge paperwork to Mariela Montano. Mitra Gallegos HEALTH PHYSICS TECHNICIAN, WEB CONTENT & SOCIAL MEDIA MANAGER
== END 2020-09-23 11:00 | disposition home or self-care (01) | DRG 92 ==
LOC: ED 20:04 → MS3 09-18 06:26
PROVIDERS: Student in an Organized Health Care Education/Training Program; Admitting Provider Family Medicine; Emergency Provider Emergency Medicine; PCP Internal Medicine; Visit Provider Hospitalist
DX: G89.29 Other chronic pain (principal); G82.20 Paraplegia, unspecified; N17.9 Acute kidney failure, unspecified; M48.061 Spinal stenosis, lumbar region without neurogenic claudication; E86.0 Dehydration; K83.8 Other specified diseases of biliary tract; M89.9 Disorder of bone, unspecified; R13.10 Dysphagia, unspecified; J44.9 Chronic obstructive pulmonary disease, unspecified; F41.9 Anxiety disorder, unspecified; M81.0 Age-related osteoporosis without current pathological fracture; K21.9 Gastro-esophageal reflux disease without esophagitis; E78.5 Hyperlipidemia, unspecified; I10 Essential (primary) hypertension; E03.9 Hypothyroidism, unspecified; E66.01 Morbid (severe) obesity due to excess calories; F34.1 Dysthymic disorder; F17.210 Nicotine dependence, cigarettes, uncomplicated; Z68.37 Body mass index [BMI] 37.0-37.9, adult; T50.995A Adverse effect of other drugs, medicaments and biological substances, initial encounter; D50.9 Iron deficiency anemia, unspecified; E11.9 Type 2 diabetes mellitus without complications; M51.36 Other intervertebral disc degeneration, lumbar region; Z79.899 Other long term (current) drug therapy; Z79.82 Long term (current) use of aspirin; Z98.84 Bariatric surgery status; Z79.891 Long term (current) use of opiate analgesic
CPT/HCPCS: 36415; 36600; 70450; 71045; 71260; 72195; 73502; 74177; 74181; 78306; 80048; 80053; 80076; 80307; 81001; 82784; 82803; 82962; 83036; 83690; 83735; 83883; 84165; 84484; 85025; 85610; 85730; 92526; 92610; 93005; 97110; 97162; 97166; 97530; 97535; 97802; 99251; 99285; J7030; Q9967; A4216; G0463; J2405

== ENCOUNTER 2020-09-24 13:59 | Observation (INO) | payer MEDICARE, MEDICAID, SELFPAY ==
[2020-09-17 22:15] VITALS: BMI 35.3
[2020-09-24] VITALS (13 sets, daily range): BP systolic 83–126; BP diastolic 52–69; PULSE 63–73; RESP 12–18; TEMP 36.1–37.1; O2SAT 97–99; BMI 38.6; BMI 38.7; BMI 37.8
--- NOTE | 2020-09-24 14:11 | EKG12_ITS ---
Test Reason : CP Blood Pressure : / mmHG Vent. Rate : 067 BPM Atrial Rate : 067 BPM P-R Int : 152 ms QRS Dur : 084 ms QT Int : 406 ms P-R-T Axes : 060 060 071 degrees QTc Int : 429 ms Normal sinus rhythm Normal ECG Confirmed by DHEERAJ COPPOLA, EVANGELINA ([id number]), video effects editor WILLIE MAY ([id number]) on 09/28/2020 2:37:00 PM Referred By: HELENA Confirmed By:EVANGELINA ESQUEDA MD
--- NOTE | 2020-09-24 14:13 | ED.VIS.CHEST ---
History of Present Illness Chief Complaint: Chest Pain Informant: Patient Onset: Today - JPTA Activity at onset: Rest Timing: Continuous Quality: Heaviness Location: Substernal - w/ radiation into left chest and right shoulder Current Severity: 5/10 Maximum Severity: 10/10 Worsened By: Nothing. Not Worsened By: Breathing Relieved By: - - unk; received ASA 324 by EMS EXPERIMENTAL MECHANIC, feeling better now; no other meds given. Associated Symptoms: Dyspnea, Lightheadedness, Palpitations. Negative for: Vomiting, Diaphoresis - but felt hot, Cough, Fever Narrative: Patient states she had relatively sudden onset of severe chest heaviness as well as feeling hot, lightheaded, short of breath, racing heartbeat, weak. She states she is feeling better now but still has significant chest heaviness. Aspirin given by EMS, she did not have an allergic reaction and declares NSAIDs in her allergy list only because she was advised to avoid them due to her gastric bypass remotely. She last had a stress test 10 years ago or so and it was negative. She states she has had a heart cath in the distant past as well, but has never needed any stents. She was recently admitted to the hospital here and discharged yesterday, she states more for pain in her back and possibly kidney issues. She has a history of chronic back pain due to multiple prior surgeries, and she has chronic borderline paraplegia with worse weakness on the left, and chronic neuropathic pain as a result of her back surgeries according to the patient. She denies having had COVID-19 that she knows of, nor has she had any known contacts with [employer] in the past several weeks. Prior Similar Symptoms: No Recent Illness/Hospitalization: No CVD Risk Factors: Hypertension, Diabetes, Hypercholesterolemia, Family History 1' </=55, Smoking PE Risk Factors: Recenet Immobilization - Relatively; patient is not ambulatory at baseline. Negative for: Recent Travel/Surgery, Prior DVT or PE, Cancer, OCP + Smoking + >/=35 - Past Medical History (1) Anemia Status: Chronic (2) Anxiety Status: Chronic (3) COPD (chronic obstructive pulmonary disease) Status: Chronic (4) Diabetes mellitus type 2, uncontrolled, without complications Status: Chronic (5) GERD without esophagitis Status: Chronic (6) HLD (hyperlipidemia) Status: Chronic (7) HTN (hypertension) Status: Chronic (8) Hypothyroidism Status: Chronic (9) Major depressive disorder Status: Chronic (10) Neuromuscular scoliosis Status: Chronic (11) Paraplegia Status: Chronic (12) Primary generalized (osteo)arthritis Status: Chronic (13) Spinal stenosis, lumbar region without neurogenic claudication Status: Chronic Past Medical History - Allergies and Home Meds Allergies/Adverse Reactions: Allergies NSAIDS (Non-Steroidal Anti-Inflamma Allergy (Verified 09/24/20 14:10) GASTRIC BYPASS trazodone Adverse Reaction (Verified 09/24/20 14:10) Other migraine Primary Care Physician: Kevin Bah MD [Primary Care Provider] - Surgical History: - - Cholecystectomy, bilateral oophorectomy most recently 03/07/18 secondary to complex ovarian cyst with postoperative diagnosis left ovarian dermoid cyst with ventral hernia as well as suprapubic preperitoneal abdominal wall mass with bilateral tubes, ovaries and cytological washings sent, Cristopher-en-Y, right knee arthroscopic surgery, cervical back surgery March 2017, recent lumbar back surgery December 2017. Smoking Status: Former smoker - Family History Maternal Family History: Family History (Last Updated 02/26/18 @ 16:13 by Kristie Collins) Father Diabetes Hypertension Myocardial infarction Alcoholism Brother Myocardial infarction Alcoholism Mother CVA (cerebral vascular accident) Family History: Reports: Diabetes, High Cholesterol, Heart Disease, Hypertension Paternal Family History: Family History (Last Updated 02/26/18 @ 16:13 by Kristie Collins) Father Diabetes Hypertension Myocardial infarction Alcoholism Brother Myocardial infarction Alcoholism Mother CVA (cerebral vascular accident) Family History: Reports: Diabetes, High Cholesterol, Heart Disease, Hypertension Review of Systems General: Reports: Malaise. Denies: Chills, Fever, Sweats Eyes: Denies: Visual changes - bilaterally, Diplopia ENT: Denies: Rhinorrhea, Sore throat Cardiovascular: Reports: Chest pain, Palpitations Respiratory: Reports: Dyspnea - Resolved. Denies: Cough, Sputum Gastrointestinal: Denies: Abdominal pain, Nausea, Vomiting, Diarrhea, Melena, Hematochezia Genitourinary: Denies: Dysuria, Hematuria, Frequency Musculoskeletal: Reports: Back pain - Chronic low back, Extremity Pain - Chronic lower extremity neuropathic pain. Denies: Neck pain Skin: Denies: Rash, Wounds Neurological: Reports: Weakness, Parasthesia. Denies: Headache Physical Exam Vital Signs/Narrative: Vital Signs Temp Pulse Resp BP Pulse Ox 09/24/20 14:02 98.2 F 65 12 118/69 99 Inital Vital Signs reviewed: Yes General: Well nourished, Well developed, Obese, No Acute Distress Head: Normocephalic, Atraumatic Eyes: Perrl, EOMI ENT: Moist mucous membranes, No rhinorrhea Neck: Supple, Nontender, No lymphadenopathy, No JVD Cardiovascular: Regular rate, Regular rhythm, No murmurs, Normal S1, Normal S2 Respiratory: No distress, CTA bilaterally, Chest nontender Abdomen: Soft, Nontender, Nondistended, Normal bowel sounds Back: Normal Inspection. Negative for: CVA tenderness Extremities: Nontender, No edema. Negative for: Calf Tenderness Skin: Normal color, No rash Neurological: Alert, Oriented x3, Cranial nerves II-XII grossly intact, Normal Strength, Parasthesia - Both lower extremities, baseline per patient, Weakness - Both lower extremities, weaker on left but able to move Psychological: Normal Mood, - - Anxious Diagnostic/Tx/Re-eval Chest X-Ray - ED: 1 View, Read by ED Physician, No Acute Disease Impressions Chest X-Ray 09/24/20 14:30 IMPRESSION: The lungs are clear. Electronically Signed: Raúl Soto MD at 14:54 EST , Service support , 09/24/20 14:30 Chest 1 View (Portable) [RAD] Stat Laboratory Results 09/24/20 09/24/20 09/24/20 14:23 14:23 14:23 WBC 7.9 RBC 3.84 L Hgb 10.9 L Hct 35.3 L MCV 91.9 MCH 28.4 MCHC 30.9 L RDW Std Deviation 47.5 H RDW Coeff of Jarrod 14.2 Plt Count 188 MPV 11.4 Immature Gran % (Auto) 0.600 Neut % (Auto) 54.9 Lymph % (Auto) 34.4 [place] % (Auto) 6.6 Eos % (Auto) 3.1 Baso % (Auto) 0.4 Absolute Neuts (auto) 4.3 Absolute Lymphs (auto) 2.70 Nucleated RBC % 0 APTT 28.6 Sodium 141 Potassium 4.3 Chloride 111 H Carbon Dioxide 26.0 Anion Gap 4 L BUN 29 H Creatinine 1.28 H Estim Creat Clear Calc 39.15 Est GFR (MDRD) Af Amer 55 L Est GFR (MDRD) Non-Af 45 L BUN/Creatinine Ratio 22.7 H Glucose 100 Calcium 9.4 Troponin I < 0.015 - Rhythm Strip Rhythm Strip: Sinus Rhythm Rate: 67 Ectopy: None - EKG Initial EKG Interpretation: Sinus Rhythm, No Acute Injury Pattern - Normal EKG Treatment: Aspirin - given EXPERIMENTAL MECHANIC by EMS, NTG SL, NTG Topical Repeat Eval: 09/30 LYNN Risk: >/= 3RF Score: 1 - Medical Decision Making Patient symptoms are less compatible with pulmonary embolism. Acute coronary syndrome is in the differential diagnosis. Last time she had a stress test was 2011 or so. Her history is concerning and her heart score is 2, 0, 1, 2, 0 equals 5. Plan is for admission to inpatient observation and further evaluation and testing. ED Disposition - Plan for ED Patient: Disposition: Acute Care Hospital [facility] Diagnosis: Chest pain, unspecified Referrals: Kevin Bah MD [Primary Care Provider] -
--- NOTE | 2020-09-24 14:30 | RAD_ITS ---
STUDY: X-RAY CHEST REASON FOR EXAM: Female, 60 years old. Chest pain TECHNIQUE: Single AP portable view of the chest. COMPARISON: Comparison is made with prior study dated 09/17/2020. FINDINGS: EKG electrodes are seen. The lungs are clear and expanded. There is no demonstrated pleural abnormality. Normal size heart. Normal mediastinum and calvin. Normal visualized pulmonary arteries. Normal visualized aortic arch and descending thoracic aorta. The patient is status post aurelia and screw fixation of the thoracic and upper lumbar vertebrae. Normal visualized ribs, clavicles, and shoulders. There is no demonstrated abnormality of the visualized soft tissue structures of the upper abdomen. RAD/Chest 1 View (Portable) IMPRESSION: The lungs are clear. Electronically Signed: Raúl Soto MD at 14:54 EST , Service support ,
[2020-09-24 14:35] LABS: Absolute Neutrophil Count 4.3 X10^3/uL (2.0-7.7); Basophil# 0.03 X10^3/uL; Basophil% 0.4 % (0-1); Eosinophil# 0.24 X10^3/uL; Eosinophils% 3.1 % (0-5); Hematocrit 35.3 % (37-47); Hemoglobin 10.9 g/dL (12.0-15.0); Lymphocyte % 34.4 % (19-41); Mean Corp Hgb Conc 30.9 g/dL (32-36); Mean Corpuscular Hgb 28.4 pg (27.0-32.0); Mean Corpuscular Volume 91.9 fL (81-99); Mean Platelet Vol. 11.4 fl (6.2-12.0); Monocyte# 0.52 X10^3/uL; Monocyte% 6.6 % (0-10); NRBC Flagged by Analyzer 0 % (0-5); Neutrophil # 4.32 X10^3/uL (2.7-7.7); Neutrophil % 54.9 % (47-70); Platelet Count 188 K/mm3 (150-450); RBC Distribution Width CV 14.2 % (11.6-14.6); RBC Distribution Width SD 47.5 fl (35.1-43.9); Red Blood Count 3.84 M/mm3 (4.2-5.4); White Blood Count 7.9 K/mm3 (4.4-11.0)
[2020-09-24] MEDS: Nitroglycerin SL (ED/IMG/CATH) 0.4 MG TABLET SUBLINGUAL (14:36)
[2020-09-24] MEDS: 0.9% Normal Saline 1,000 ML 150 ML IV (14:37)
[2020-09-24 14:46] LABS: Partial Thromboplast Time 28.6 Seconds (24.1-36.2)
[2020-09-24 14:53] LABS: Anion Gap 4 (5-15); BUN 29 mg/dL (7-18); BUN/Creat Ratio 22.7 RATIO (10-20); Calcium,Total 9.4 mg/dL (8.5-10.1); Chloride 111 mmol/L (98-107); Creatinine, Serum 1.28 mg/dL (0.55-1.02); EST Glomerular Filtration Rate 45 mL/min (>60); Est Glom Filt Rate - Afr Amer 55 mL/min (>60); Estimated Creatinine Clearance 39.15 ml/min; Glucose 100 mg/dL (74-106); Potassium 4.3 mmol/L (3.5-5.1); Sodium Level 141 mmol/L (136-145)
[2020-09-24] MEDS: Acetaminophen 500 MG Tablet 1000 MG PO (15:00)
[2020-09-24] MEDS: Nitroglycerin Oint 1 INCH PACKET TD (15:24)
--- NOTE | 2020-09-24 15:40 | PCM.HP.STD ---
Problem List (1) Chest pain, unspecified Status: Acute (2) Bone lesion Status: Chronic (3) Intractable low back pain Status: Chronic (4) Complex ovarian cyst Status: Chronic Comment: cea and ca125 ordered (5) Major depressive disorder Status: Chronic Qualifiers: Major depression recurrence: unspecified whether recurrent Major depression episode severity: unspecified (6) Anxiety Status: Chronic (7) GERD without esophagitis Status: Chronic (8) Chronic cluster headache, not intractable Status: Chronic (9) Age-related osteoporosis without current pathological fracture Status: Chronic (10) Primary generalized (osteo)arthritis Status: Chronic (11) Other intervertebral disc degeneration, lumbar region Status: Chronic (12) Hypothyroidism Status: Chronic Qualifiers: Hypothyroidism type: unspecified Qualified Code(s): E03.9 - Hypothyroidism, unspecified (13) Anemia Status: Chronic Qualifiers: Anemia type: unspecified type Qualified Code(s): D64.9 - Anemia, unspecified (14) COPD (chronic obstructive pulmonary disease) Status: Chronic Qualifiers: COPD type: unspecified COPD Qualified Code(s): J44.9 - Chronic obstructive pulmonary disease, unspecified (15) Muscle weakness Status: Chronic (16) Spinal stenosis, lumbar region without neurogenic claudication Status: Chronic (17) Neuromuscular scoliosis Status: Chronic Qualifiers: Spinal region: unspecified Qualified Code(s): M41.40 - Neuromuscular scoliosis, site unspecified (18) Chronic low back pain Status: Chronic Qualifiers: Back pain laterality: unspecified Sciatica laterality: sciatica laterality unspecified (19) Paraplegia Status: Chronic (20) Tobacco use disorder Status: Chronic (21) Morbid obesity Status: Chronic (22) HTN (hypertension) Status: Chronic Qualifiers: Hypertension type: essential hypertension Qualified Code(s): I10 - Essential (primary) hypertension (23) HLD (hyperlipidemia) Status: Chronic Qualifiers: Hyperlipidemia type: pure hypercholesterolemia Qualified Code(s): E78.00 - Pure hypercholesterolemia, unspecified; E78.0 - Pure hypercholesterolemia (24) Dysthymic disorder Status: Chronic (25) Diabetes mellitus type 2, uncontrolled, without complications Status: Chronic (26) Chronic Airway Obstruction NEC Status: Chronic History of Present Illness Date of Admission: 09/24/20 Chief Complaint: chest pain The patient is a 60 year old F presents with chest pain. Patient was in her bed when this chest pain started in her doctor back. Chest pain was midsternal rating to her right side. Patient's daughter arrived about 10 minutes later and saw the patient was red in her face and was concerned because this is atypical for the patient and contacted EMS. Patient was brought to the emergency room and had labs and EKG that were unremarkable. Patient did receive some nitroglycerin which did help alleviate some of her discomfort. Patient denies ever having had chest pain like this before. Patient denies any cardiac history. Patient was just discharged yesterday with acute on chronic back pain. Patient states that she was not having any chest pain during that admission. [] Past Medical History Past Medical History (Chronic Problems): Chronic Problems (Last Updated 09/21/20 @ 09:[address] Helena Aguayo MD) Bone lesion (Chronic) Intractable low back pain (Chronic) Complex ovarian cyst (Chronic) cea and ca125 ordered Major depressive disorder (Chronic) Anxiety (Chronic) GERD without esophagitis (Chronic) Chronic cluster headache, not intractable (Chronic) Age-related osteoporosis without current pathological fracture (Chronic) Primary generalized (osteo)arthritis (Chronic) Other intervertebral disc degeneration, lumbar region (Chronic) Hypothyroidism (Chronic) Anemia (Chronic) COPD (chronic obstructive pulmonary disease) (Chronic) Muscle weakness (Chronic) Spinal stenosis, lumbar region without neurogenic claudication (Chronic) Neuromuscular scoliosis (Chronic) Chronic low back pain (Chronic) Paraplegia (Chronic) Tobacco use disorder (Chronic) Morbid obesity (Chronic) HTN (hypertension) (Chronic) HLD (hyperlipidemia) (Chronic) Dysthymic disorder (Chronic) Diabetes mellitus type 2, uncontrolled, without complications (Chronic) Chronic Airway Obstruction NEC (Chronic) Medical History: Medical History (Last Reviewed 09/24/20 @ 15:[address] Jordy Sosa, DO) Major depressive disorder (Chronic) F32.9 Anxiety (Chronic) F41.9 GERD without esophagitis (Chronic) K21.9 Chronic cluster headache, not intractable (Chronic) G44.029 Age-related osteoporosis without current pathological fracture (Chronic) M81.0 Primary generalized (osteo)arthritis (Chronic) M15.0 Other intervertebral disc degeneration, lumbar region (Chronic) M51.36 Hypothyroidism (Chronic) E03.9 Anemia (Chronic) D64.9 COPD (chronic obstructive pulmonary disease) (Chronic) J44.9 Muscle weakness (Chronic) M62.81 Spinal stenosis, lumbar region without neurogenic claudication (Chronic) M48.061 Neuromuscular scoliosis (Chronic) M41.40 Chronic low back pain (Chronic) M54.5, G89.29 Paraplegia (Chronic) G82.20 Allergies NSAIDS (Non-Steroidal Anti-Inflamma Allergy (Verified 09/24/20 14:10) GASTRIC BYPASS trazodone Adverse Reaction (Verified 09/24/20 14:10) Other migraine Home Medications: Ambulatory Orders Medication Instructions Recorded Calcium Citrate/Vitamin D3 1 ea PO BID 04/09/16 [Calcium Citrate-Vit D3 Tablet] Biotin 10,000 mcg PO DAILY 02/16/18 Ferrous Gluconate 325 mg PO DAILY 02/16/18 Gabapentin [Neurontin] 600 mg PO BID 02/16/18 Topiramate [Topamax] 25 mg PO BID 02/16/18 hnsggxgzqeur-tdnqcizb-trsvyh tablet 1 tab PO DAILY 02/26/18 Lorazepam [Ativan] 1 mg PO BID PRN PRN #10 tab 03/30/18 baclofen 10 mg tablet 10 mg PO Q6H PRN PRN tab 03/05/19 gabapentin 300 mg capsule 900 mg PO QHS cap 03/05/19 meloxicam 15 mg tablet 15 mg PO DAILY tab 03/05/19 Atorvastatin Calcium [Lipitor] 20 mg PO QHS 08/08/19 Albuterol Sulfate [Albuterol 2 puff INHALATION Q4H PRN 09/17/20 Sulfate Hfa] Buspirone HCl 15 mg PO TID PRN 09/17/20 Fluoxetine HCl [Prozac] 10 mg PO DAILY 09/17/20 Levothyroxine Sodium [Synthroid] 150 mcg PO DAILY 09/17/20 Metformin HCl 1,000 mg PO BID 09/17/20 Pantoprazole Sodium [Protonix] 40 mg PO BID PRN 09/17/20 Oxycodone HCl/Acetaminophen 1 tab PO Q6H PRN PRN 4 Days #16 tab 09/23/20 [Percocet 5-325 mg Tablet] Oxycodone Myristate [Xtampza ER] 27 mg PO BID 5 Days #10 09/23/20 Surgical History: Surgical History (Last Reviewed 09/24/20 @ 15:[address] Jordy Sosa DO) D&C H/O gastric bypass Z98.84 History of cholecystectomy Z98.890, Z90.49 Hydradenitis L73.2 removal-multiple S/P arthroscopic knee surgery Z98.890 S/P lumbar spine operation Z98.890 s/p nerve spine surgery s/p upper back surgery skin graft Surgical History: - - Cholecystectomy, bilateral oophorectomy most recently 03/07/18 secondary to complex ovarian cyst with postoperative diagnosis left ovarian dermoid cyst with ventral hernia as well as suprapubic preperitoneal abdominal wall mass with bilateral tubes, ovaries and cytological washings sent, Cristopher-en-Y, right knee arthroscopic surgery, cervical back surgery March 2017, recent lumbar back surgery December 2017. Psychiatric History: Anxiety, Depression PHARMACY AIDE History: - - Guillotine Operator surgery 03/07/18 secondary to complex ovarian cyst with postoperative diagnosis left ovarian dermoid cyst with ventral hernia as well as suprapubic preperitoneal abdominal wall mass with bilateral tubes, ovaries and cytological washings sent. Lives: With Family Smoking Status: Current some day smoker Tobacco Use: Cigarettes - *Family History Maternal Family History: Family History (Last Reviewed 09/24/20 @ 15:[address] Jordy Sosa DO) Father Diabetes Hypertension Myocardial infarction Alcoholism Brother Myocardial infarction Alcoholism Mother CVA (cerebral vascular accident) History Items: Diabetes, High Cholesterol, Heart Disease, Hypertension Paternal Family History: Family History (Last Reviewed 09/24/20 @ 15:[address] Jordy Sosa DO) Father Diabetes Hypertension Myocardial infarction Alcoholism Brother Myocardial infarction Alcoholism Mother CVA (cerebral vascular accident) History Items: Diabetes, High Cholesterol, Heart Disease, Hypertension Review of Systems Constitutional: Denies: Anorexia, Chills, Fever, Night Sweats Eyes: Denies: Blurred vision, Double vision HEENT: Denies: Head Aches, Sinus Congestion, Sinus Drainage Cardiovascular: Reports: Chest Pain. Denies: Palpitations Respiratory: Reports: Shortness of Breath Gastrointestinal: Denies: Abdominal Pain, Nausea, Vomiting Genitourinary: Denies: Dysuria Skin: Denies: Dryness, Jaundice Neurological: Denies: Numbness, Tingling, Focal weakness Comment: All review of systems were negative except as mentioned above in the history of present illness and the other review of systems. Functional paraplegic, essentially wheelchair-bound at home. VTE Information - Inpt Only VTE Present on Admission: No VTE Mechan Device Prophylaxis: None VTE Pharm Prophylaxis ordered?: No Reason prophylaxis not ordered:: Treatment Not Indicated Patient Problems: Active and Suspected Problems (Last Updated 09/21/20 @ 09:[address] Helena Aguayo MD) Chest pain, unspecified (Acute) - Physical Exam Vitals/I&O's: Vital Signs Temp Pulse Resp BP Pulse Ox 36.8 C 73 14 104/60 97 09/24/20 15:32 09/24/20 15:32 09/24/20 15:32 09/24/20 15:32 09/24/20 15:32 Oxygen Delivery Method Room Air Weight: 99 kg Body Mass Index (BMI) 38.6 Finger Stick Blood Glucose 130 General: Alert, Cooperative, No apparent distress, - - Appears older than stated age HEENT: Atraumatic, Normocephalic Neck: No Nodes, Thyroid Normal Size and Texture Lungs: Clear to auscultation, Normal air movement, No rhonchi, No wheeze Cardiovascular: Regular rate, Regular Rhythm, Normal S1, Normal S2, No murmurs Abdomen: Bowel Sounds Present, Soft, Non Tender, Non-Distended, No Hepato-splenomegaly Extremities: No edema, No Calf Tenderness Musculoskeletal: - - Reproducible right anterior chest wall tenderness adjacent to the sternum. With reciprocal back pain adjacent to the vertebrae.. Para muscle tenderness which was very exquisite. No evidence of any rash to suggest zoster. Psych/Mental Status: Appropriate, Anxious Laboratory Results 09/24/20 14:23: WBC 7.9, RBC 3.84 L, Hgb 10.9 L, Hct 35.3 L, MCV 91.9, MCH 28.4, MCHC 30.9 L, RDW Std Deviation 47.5 H, RDW Coeff of Jarrod 14.2, Plt Count 188, MPV 11.4, Immature Gran % (Auto) 0.600, Neut % (Auto) 54.9, Lymph % (Auto) 34.4, [place] % (Auto) 6.6, Eos % (Auto) 3.1, Baso % (Auto) 0.4, Absolute Neuts (auto) 4.3, Absolute Lymphs (auto) 2.70, Nucleated RBC % 0 09/24/20 14:23: Sodium 141, Potassium 4.3, Chloride 111 H, Carbon Dioxide 26.0, Anion Gap 4 L, BUN 29 H, Creatinine 1.28 H, Estim Creat Clear Calc 39.15, Est GFR (MDRD) Af Amer 55 L, Est GFR (MDRD) Non-Af 45 L, BUN/Creatinine Ratio 22.7 H, Glucose 100, Calcium 9.4, Troponin I < 0.015 09/24/20 14:23: APTT 28.6 EKG reviewed showed normal sinus rhythm with no acute changes. Chest x-ray personally reviewed and shows extensive spinal rods and screws through thoracic and spine x-ray. But no infiltrate nor any pulmonary vascular congestion or effusions. Current Medications Sodium Chloride () 1,000 mls @ 150 mls/hr IV .Q6H40M DONNY Last Admin: 09/24/20 14:37 Dose: 150 mls/hr Documented by: Nitroglycerin (Nitroglycerin Sl (Ed/Img/Cath) 0.4 Mg Tablet) 0.4 mg SUBLINGUAL Q5M PRN PRN Reason: Chest pain Last Admin: 09/24/20 14:36 Dose: 0.4 mg Documented by: Sodium Chloride (0.9% Saline Lock 10 Ml Syringe) 10 - 40 ml IV UD PRN PRN Reason: SALINE FLUSH Assessment/Plan All Active Problems (Last Updated 09/21/20 @ 09:[address] Helena Aguayo MD) Chest pain, unspecified (Acute) 1. Chest pain LYNN score of three Chest pain is atypical and reproducible. Is suspecting her chest pain to be more musculoskeletal than cardiac in origin but patient does have risk factors for it being cardiac. I do not suspect pulmonary embolism given the patient's recent hospitalization. Patient had been on VTE prophylaxis during that hospitalization and patient does not have any respiratory issues at this time. Would not order D-dimer as I would expect it to be elevated due to the this lesion the patient has in her femur. Plan: Cycle troponins Chemical stress test in the morning. If negative then DC home, if positive then consult cardiology. 2. Right femur lesion Concern is for cancer of unknown primary the patient did have a bone scan performed on the that was negative. Patient was seen by Dr. Graff, of orthopedics, who recommended patient with follow-up with orthopedic oncology particularly Dr. Amaury Musa at [facility] or other orthopedic oncologist. No further inpatient evaluation at this time. 3. Diabetes mellitus type 2 Patient states that she is diet controlled though she is on Metformin which will be continued. Last A1c was 5.9 back on September 18 Patient adamant about not being put on a diabetic diet because she is being starve to . Patient will be on cardiac diet. Plan: Continue with Metformin as well as sliding scale insulin. 4. VTE prophylaxis: Not indicated given observation status. 5. Advanced care planning: Discussed with the patient. Patient wishes to be full CODE STATUS. OBSV E&M: [id number] Initial observation care L2
--- NOTE | 2020-09-24 15:53 | EKG12_ITS ---
Test Reason : CP Blood Pressure : / mmHG Vent. Rate : 061 BPM Atrial Rate : 061 BPM P-R Int : 152 ms QRS Dur : 084 ms QT Int : 442 ms P-R-T Axes : 056 056 065 degrees QTc Int : 444 ms Normal sinus rhythm with sinus arrhythmia Normal ECG Confirmed by DHEERAJ COPPOLA, EVANGELINA ([id number]), fan mail editor WILLIE MAY ([id number]) on 09/28/2020 2:46:16 PM Referred By: DIANNE Confirmed By:EVANGELINA ESQUEDA MD
--- NOTE | 2020-09-24 16:39 | EKG12_ITS ---
Test Reason : CP Blood Pressure : / mmHG Vent. Rate : 077 BPM Atrial Rate : 077 BPM P-R Int : 152 ms QRS Dur : 084 ms QT Int : 394 ms P-R-T Axes : 058 055 073 degrees QTc Int : 445 ms Normal sinus rhythm Normal ECG When compared with ECG of 24-SEP-2020 16:47, MANUAL COMPARISON REQUIRED, DATA IS UNCONFIRMED Confirmed by HUEY COPPOLA, KENNEDI ([id number]), film editor supervisor WILLIE MAY ([id number]) on 09/29/2020 12:36:57 PM Referred By: DIANNE Confirmed By:KENNEDI ARZATE MD
[2020-09-24 17:11] LABS: Bedside Glucose 154 mg/dL (70-110)
[2020-09-24] MEDS: Glucerna Shake 120 ML LIQUID PO (17:14)
[2020-09-24] MEDS: metFORMIN HCl 1,000 MG Tablet 1000 MG PO (17:14)
[2020-09-24] MEDS: Insulin Lispro 100 UNIT/ML INSULN.PEN SC (17:14)
[2020-09-24] MEDS: Gabapentin 600 MG Tablet PO (17:14)
[2020-09-24] MEDS: Calcium Carb/Vitamin D 1 TABLET Tablet PO (17:15)
[2020-09-24] MEDS: oxyCODONE 5 MG Tablet PO (17:41)
[2020-09-24] MEDS: Atorvastatin Calcium 20 MG Tablet PO (22:30)
[2020-09-24] MEDS: Gabapentin 300 MG Capsule 900 MG PO (22:30)
[2020-09-24] MEDS: Topiramate 25 MG Tablet PO (22:30)
[2020-09-24] MEDS: oxyCODONE CR 15 MG Tablet PO (22:40)
[2020-09-24] MEDS: 0.9% Saline Lock 10 ML Syringe IV (22:44)
[2020-09-24 23:11] LABS: Bedside Glucose 99 mg/dL (70-110)
[2020-09-24] MEDS: LORazepam 1 MG Tablet PO (23:53)
[2020-09-24] MEDS: Acetaminophen 325 MG Tablet 650 MG PO (23:53)
[2020-09-25 02:58] VITALS: PULSE 77
[2020-09-25 04:02] VITALS: BP 104/52; PULSE 75; RESP 16; TEMP 36.8; O2SAT 97
--- NOTE | 2020-09-25 05:55 | EKG12_ITS ---
Test Reason : CP Blood Pressure : / mmHG Vent. Rate : 071 BPM Atrial Rate : 071 BPM P-R Int : 156 ms QRS Dur : 082 ms QT Int : 430 ms P-R-T Axes : 061 067 069 degrees QTc Int : 467 ms Sinus rhythm with occasional Premature ventricular complexes Otherwise normal ECG When compared with ECG of 24-SEP-2020 16:15, MANUAL COMPARISON REQUIRED, DATA IS UNCONFIRMED Confirmed by HUEY COPPOLA, KENNEDI ([id number]), editorial writer WILLIE MAY ([id number]) on 09/29/2020 12:37:10 PM Referred By: DIANNE Confirmed By:KENNEDI ARZATE MD
[2020-09-25 06:02] LABS: Anion Gap 8 (5-15); BUN 30 mg/dL (7-18); BUN/Creat Ratio 24.6 RATIO (10-20); Calcium,Total 8.9 mg/dL (8.5-10.1); Chloride 111 mmol/L (98-107); Creatinine, Serum 1.22 mg/dL (0.55-1.02); EST Glomerular Filtration Rate 48 mL/min (>60); Est Glom Filt Rate - Afr Amer 58 mL/min (>60); Estimated Creatinine Clearance 41.07 ml/min; Glucose 114 mg/dL (74-106); Potassium 4.1 mmol/L (3.5-5.1); Sodium Level 141 mmol/L (136-145)
[2020-09-25 06:22] VITALS: BP 109/53; PULSE 81; RESP 16; TEMP 37.2; O2SAT 95
[2020-09-25] MEDS: Levothyroxine 150 MCG Tablet PO (06:24)
[2020-09-25 06:51] LABS: Bedside Glucose 117 mg/dL (70-110)
[2020-09-25 07:43] VITALS: PULSE 82
--- NOTE | 2020-09-25 09:41 | DCINST_ITS ---
- Discharge Diagnoses Current Active Problems: Current Active and Chronic Problems (Last Reviewed 09/24/20 @ 15:[address] Jordy Sosa, DO) Chest pain, unspecified (Acute) Bone lesion (Chronic) Intractable low back pain (Chronic) Complex ovarian cyst (Chronic) cea and ca125 ordered Major depressive disorder (Chronic) Anxiety (Chronic) GERD without esophagitis (Chronic) Chronic cluster headache, not intractable (Chronic) Age-related osteoporosis without current pathological fracture (Chronic) Primary generalized (osteo)arthritis (Chronic) Other intervertebral disc degeneration, lumbar region (Chronic) Hypothyroidism (Chronic) Anemia (Chronic) COPD (chronic obstructive pulmonary disease) (Chronic) Muscle weakness (Chronic) Spinal stenosis, lumbar region without neurogenic claudication (Chronic) Neuromuscular scoliosis (Chronic) Chronic low back pain (Chronic) Paraplegia (Chronic) Tobacco use disorder (Chronic) Morbid obesity (Chronic) HTN (hypertension) (Chronic) HLD (hyperlipidemia) (Chronic) Dysthymic disorder (Chronic) Diabetes mellitus type 2, uncontrolled, without complications (Chronic) Chronic Airway Obstruction NEC (Chronic) Reason(s) for Visit for Discharge Instructions: Chest pain, unspecified You will use the following diet at home:: No restrictions, Regular Your food should be the consistency of: Regular Your liquids should be the consistency of: Regular/Thin Discharge Activity: Return to Normal Activity Return to work on:: 09/28/20 May shower in (days): 1 May resume sexual activity in: No Restrictions Weight Bearing Status: Weight bearing as tolerated Instructions: ED Chest Pain, Noncardiac Allergies/Adverse Reactions: Allergies NSAIDS (Non-Steroidal Anti-Inflamma Allergy (Verified 09/24/20 14:10) GASTRIC BYPASS trazodone Adverse Reaction (Verified 09/24/20 14:10) Other migraine Medications to take at Discharge Calcium Citrate/Vitamin D3 [Calcium Citrate-Vit D3 Tablet] 1 ea PO BID 04/09/16 Biotin 10,000 mcg PO DAILY 02/16/18 Ferrous Gluconate 325 mg PO DAILY 02/16/18 Gabapentin [Neurontin] 600 mg PO BID 02/16/18 Topiramate [Topamax] 25 mg PO BID 02/16/18 kfsfrstkfnye-lgmqwxml-nahjbh tablet 1 tab PO DAILY 02/26/18 Lorazepam [Ativan] 1 mg PO BID PRN PRN #10 tab 03/30/18 baclofen 10 mg tablet 10 mg PO Q6H PRN PRN tab 03/05/19 gabapentin 300 mg capsule 900 mg PO QHS cap 03/05/19 meloxicam 15 mg tablet 15 mg PO DAILY tab 03/05/19 Atorvastatin Calcium [Lipitor] 20 mg PO QHS 08/08/19 Albuterol Sulfate [Albuterol Sulfate Hfa] 2 puff INHALATION Q4H PRN 09/17/20 Buspirone HCl 15 mg PO TID PRN 09/17/20 Fluoxetine HCl [Prozac] 10 mg PO DAILY 09/17/20 Levothyroxine Sodium [Synthroid] 150 mcg PO DAILY 09/17/20 Metformin HCl 1,000 mg PO BID 09/17/20 Pantoprazole Sodium [Protonix] 40 mg PO BID PRN 09/17/20 Oxycodone HCl/Acetaminophen [Percocet 5-325 mg Tablet] 1 tab PO Q6H PRN PRN 4 Days #16 tab 09/23/20 Oxycodone Myristate [Xtampza ER] 27 mg PO BID 5 Days #10 09/23/20 Primary Care Physician: Kevin Bah MD [Primary Care Provider] - Please follow up with your Primary Care Physician in: Primary care physician Test Results: Test results from this visit will be discussed in further detail at your follow- up appointment, if applicable. Proposed Discharge Date: 09/25/20 - Pending results of cardiac stress test.
[2020-09-25] MEDS: oxyCODONE CR 15 MG Tablet PO (09:50)
[2020-09-25] MEDS: FLUoxetine 10 MG Capsule PO (09:50)
[2020-09-25] MEDS: metFORMIN HCl 1,000 MG Tablet 1000 MG PO (09:51)
[2020-09-25] MEDS: Gabapentin 600 MG Tablet PO (09:51)
[2020-09-25] MEDS: Topiramate 25 MG Tablet PO (09:52)
[2020-09-25 09:53] VITALS: BP 103/56; PULSE 83; RESP 18; TEMP 36.2; O2SAT 98
--- NOTE | 2020-09-25 09:54 | PCM.DC.SUM ---
<Pawan Wilson - Last Filed: 09/25/20 11:48> Discharge Date and Diagnosis - Problem List Patient Problems: Active and Suspected Problems (Last Reviewed 09/24/20 @ 15:[address] Jordy Sosa DO) Chest pain, unspecified (Acute) Date of Admission: 09/24/20 Date of Discharge: 09/25/20 - Pending results of cardiac stress test. - Primary Discharge Diagnosis Acute Problems: Active Problems (Last Reviewed 09/24/20 @ 15:[address] Jordy Sosa DO) 1) Chest pain, unspecified (Acute) 2) Right Femur Lesion 3) DM 2 - Secondary Discharge Diagnosis Chronic Problems: Chronic Problems (Last Reviewed 09/24/20 @ 15:[address] Jordy Sosa DO) Bone lesion (Chronic) Intractable low back pain (Chronic) Complex ovarian cyst (Chronic) cea and ca125 ordered Major depressive disorder (Chronic) Anxiety (Chronic) GERD without esophagitis (Chronic) Chronic cluster headache, not intractable (Chronic) Age-related osteoporosis without current pathological fracture (Chronic) Primary generalized (osteo)arthritis (Chronic) Other intervertebral disc degeneration, lumbar region (Chronic) Hypothyroidism (Chronic) Anemia (Chronic) COPD (chronic obstructive pulmonary disease) (Chronic) Muscle weakness (Chronic) Spinal stenosis, lumbar region without neurogenic claudication (Chronic) Neuromuscular scoliosis (Chronic) Chronic low back pain (Chronic) Paraplegia (Chronic) Tobacco use disorder (Chronic) Morbid obesity (Chronic) HTN (hypertension) (Chronic) HLD (hyperlipidemia) (Chronic) Dysthymic disorder (Chronic) Diabetes mellitus type 2, uncontrolled, without complications (Chronic) Chronic Airway Obstruction NEC (Chronic) Hospital Course and Treatment Imaging Results: 09/25/20 05:55 Nuclear Stress Test - Chemical [NM] AM (NON MEDS) Clinical Impression(s) from Imaging Studies Chest X-Ray 09/24/20 14:30 IMPRESSION: The lungs are clear. Electronically Signed: Raúl Soto MD at 14:54 EST , Service support , Laboratory Results 09/24/20 09/24/20 09/24/20 14:23 14:23 14:23 WBC 7.9 RBC 3.84 L Hgb 10.9 L Hct 35.3 L MCV 91.9 MCH 28.4 MCHC 30.9 L RDW Std Deviation 47.5 H RDW Coeff of Jarrod 14.2 Plt Count 188 MPV 11.4 Immature Gran % (Auto) 0.600 Neut % (Auto) 54.9 Lymph % (Auto) 34.4 [place] % (Auto) 6.6 Eos % (Auto) 3.1 Baso % (Auto) 0.4 Absolute Neuts (auto) 4.3 Absolute Lymphs (auto) 2.70 Nucleated RBC % 0 APTT 28.6 Sodium 141 Potassium 4.3 Chloride 111 H Carbon Dioxide 26.0 Anion Gap 4 L BUN 29 H Creatinine 1.28 H Estim Creat Clear Calc 39.15 Est GFR (MDRD) Af Amer 55 L Est GFR (MDRD) Non-Af 45 L BUN/Creatinine Ratio 22.7 H Glucose 100 Calcium 9.4 Troponin I < 0.015 POC Glucose 09/24/20 09/24/20 09/24/20 17:06 17:21 20:58 WBC RBC Hgb Hct MCV MCH MCHC RDW Std Deviation RDW Coeff of Jarrod Plt Count MPV Immature Gran % (Auto) Neut % (Auto) Lymph % (Auto) [place] % (Auto) Eos % (Auto) Baso % (Auto) Absolute Neuts (auto) Absolute Lymphs (auto) Nucleated RBC % APTT Sodium Potassium Chloride Carbon Dioxide Anion Gap BUN Creatinine Estim Creat Clear Calc Est GFR (MDRD) Af Amer Est GFR (MDRD) Non-Af BUN/Creatinine Ratio Glucose Calcium Troponin I < 0.015 < 0.015 POC Glucose 154 H 09/24/20 09/25/20 09/25/20 22:27 05:16 06:25 WBC RBC Hgb Hct MCV MCH MCHC RDW Std Deviation RDW Coeff of Jarrod Plt Count MPV Immature Gran % (Auto) Neut % (Auto) Lymph % (Auto) [place] % (Auto) Eos % (Auto) Baso % (Auto) Absolute Neuts (auto) Absolute Lymphs (auto) Nucleated RBC % APTT Sodium 141 Potassium 4.1 Chloride 111 H Carbon Dioxide 22.0 Anion Gap 8 BUN 30 H Creatinine 1.22 H Estim Creat Clear Calc 41.07 Est GFR (MDRD) Af Amer 58 L Est GFR (MDRD) Non-Af 48 L BUN/Creatinine Ratio 24.6 H Glucose 114 H Calcium 8.9 Troponin I POC Glucose 99 117 H Operations: None Procedures: Stress test Summary of Care Provided: The patient is a 60 year old female who was admitted to the hospital with a chief complaint of atypical chest pain. No respiratory issues reported at admission. Patient was given some nitroglycerin in the ED, pain was amenable. EKG and labs were unremarkable in the ED. LYNN score was 3 at admission. No elevation of troponins through course of stay. Cardiac stress test unremarkable. 1) Chest pain, unspecified Assessment - LYNN score of 3 at admission - Troponin I <0.015 through course of stay - Cardiac stress test unremarkable Plan - discharge on 09/25/20 - reccomend follow up with primary care provider within two weeks of discharge. 2) Right femur lesion Assessment - Being managed outpatient Plan - Continue with out patient management 3) DM 2 Assessment - A1c of 5.9 on 09/18/20 - On Metformin, per outpatient provider - Glucose 117 @ 0625 on 09/25/20 Plan - Continue with out patient management after discharge VTE prophylaxis; Not indicated Patient seen by Pawan Wilson PA-C, under the supervision of Dr. Aguayo. [] Patient Problems: Active and Suspected Problems (Last Reviewed 09/24/20 @ 15:[address] Jordy Sosa DO) Chest pain, unspecified (Acute) - Physical Exam Vitals/I&O's: Vital Signs Temp Pulse Resp BP Pulse Ox 98.9 F 81 16 109/53 L 95 09/25/20 06:22 09/25/20 06:22 09/25/20 06:22 09/25/20 06:22 09/25/20 06:22 Oxygen Delivery Method Room Air Weight: 213 lb 8 oz Body Mass Index (BMI) 37.8 Finger Stick Blood Glucose 130 Intake and Output for Last 24 Hours 09/23/20 09/24/20 09/25/20 23:59 23:59 23:59 Intake Total 1702.5 / 1702.5 Output Total 650 / 650 450 / 450 Balance 1052.5 / 1052.5 -450 / -450 Laboratory Results 09/24/20 14:23: WBC 7.9, RBC 3.84 L, Hgb 10.9 L, Hct 35.3 L, MCV 91.9, MCH 28.4, MCHC 30.9 L, RDW Std Deviation 47.5 H, RDW Coeff of Jarrod 14.2, Plt Count 188, MPV 11.4, Immature Gran % (Auto) 0.600, Neut % (Auto) 54.9, Lymph % (Auto) 34.4, [place] % (Auto) 6.6, Eos % (Auto) 3.1, Baso % (Auto) 0.4, Absolute Neuts (auto) 4.3, Absolute Lymphs (auto) 2.70, Nucleated RBC % 0 09/24/20 14:23: Sodium 141, Potassium 4.3, Chloride 111 H, Carbon Dioxide 26.0, Anion Gap 4 L, BUN 29 H, Creatinine 1.28 H, Estim Creat Clear Calc 39.15, Est GFR (MDRD) Af Amer 55 L, Est GFR (MDRD) Non-Af 45 L, BUN/Creatinine Ratio 22.7 H, Glucose 100, Calcium 9.4, Troponin I < 0.015 09/24/20 14:23: APTT 28.6 09/24/20 17:06: POC Glucose 154 H 09/24/20 17:21: Troponin I < 0.015 09/24/20 20:58: Troponin I < 0.015 09/24/20 22:27: POC Glucose 99 09/25/20 05:16: Sodium 141, Potassium 4.1, Chloride 111 H, Carbon Dioxide 22.0, Anion Gap 8, BUN 30 H, Creatinine 1.22 H, Estim Creat Clear Calc 41.07, Est GFR (MDRD) Af Amer 58 L, Est GFR (MDRD) Non-Af 48 L, BUN/Creatinine Ratio 24.6 H, Glucose 114 H, Calcium 8.9 09/25/20 06:25: POC Glucose 117 H Current Medications Acetaminophen (Acetaminophen 325 Mg Tablet) 650 mg PO Q6H PRN PRN PRN Reason: Pain Score 1-10/Temp > 100.7 F Last Admin: 09/24/20 23:53 Dose: 650 mg Documented by: Albuterol Sulfate (Albuterol 2.5 Mg/3 Ml Vial.Neb.) 2.5 mg INHALATION Q4H PRN PRN PRN Reason: SOB &/OR WHEEZING Atorvastatin Calcium (Atorvastatin Calcium 20 Mg Tablet) 20 mg PO QHS [facility] Last Admin: 09/24/20 22:30 Dose: 20 mg Documented by: Baclofen (Baclofen 10 Mg Tablet) 10 mg PO Q6H PRN PRN PRN Reason: SPASMS Buspirone HCl (Buspirone 15 Mg Tablet) 15 mg PO TID PRN PRN PRN Reason: mood Calcium/Vitamin D (Calcium Carb/Vitamin D 1 Tablet Tablet) 1 tablet PO BID@1200,1700 [facility] Last Admin: 09/24/20 17:15 Dose: 1 tablet Documented by: Ferrous Gluconate (Ferrous Gluconate 324 Mg Tablet) 324 mg PO DAILY@1200 [facility] Fluoxetine HCl (Fluoxetine 10 Mg Capsule) 10 mg PO DAILY [facility] Last Admin: 09/25/20 09:50 Dose: 10 mg Documented by: Gabapentin (Gabapentin 600 Mg Tablet) [facility] Last Admin: 09/25/20 09:51 Dose: 600 mg Documented by: Gabapentin (Gabapentin 300 Mg Capsule) 900 mg PO QHS [facility] Last Admin: 09/24/20 22:30 Dose: 900 mg Documented by: Sodium Chloride () 250 mls @ 15 mls/hr IV .[id number] PRN PRN Reason: Additional IVPB Infusion Insulin Human Lispro (Insulin Lispro 100 Unit/Ml Insuln.Pen) [facility] Protocol Last Admin: 09/25/20 06:26 Dose: Not Given Documented by: Levothyroxine Sodium (Levothyroxine 150 Mcg Tablet) 150 mcg PO DAILY@0600 [facility] Last Admin: 09/25/20 06:24 Dose: 150 mcg Documented by: Lorazepam (Lorazepam 1 Mg Tablet) 1 mg PO BID PRN PRN PRN Reason: ANXIETY Last Admin: 09/24/20 23:53 Dose: 1 mg Documented by: Metformin HCl (Metformin Hcl 1,000 Mg Tablet) 1,[facility] Last Admin: 09/25/20 09:51 Dose: 1,000 mg Documented by: Multivitamins/Minerals (Multivitamins,Ther W-Minerals Tablet) 1 tablet PO DAILY@1200 [facility] Nitroglycerin (Nitroglycerin (Inpatient Use) 0.4 Mg Tab.Subl) 0.4 mg SUBLINGUAL Q5M PRN PRN Reason: CARDIAC/CHEST PAIN Nutritional Formula (Lactose Free) (Glucerna Shake 120 Ml Liquid) 120 ml PO 4X/DAY [facility] Last Admin: 09/24/20 22:28 Dose: Not Given Documented by: Ondansetron HCl (Ondansetron 4 Mg/2 Ml Vial) 4 mg IV Q8H PRN PRN PRN Reason: NAUSEA/VOMITING Oxycodone HCl (Oxycodone Cr 15 Mg Tablet) 15 mg PO BID [facility] Last Admin: 09/25/20 09:50 Dose: 15 mg Documented by: Oxycodone HCl (Oxycodone 5 Mg Tablet) 5 mg PO Q6H PRN PRN PRN Reason: Pain Score 1-10 Last Admin: 09/24/20 17:41 Dose: 5 mg Documented by: Pantoprazole Sodium (Pantoprazole Sodium 40 Mg Tablet) 40 mg PO BID PRN PRN PRN Reason: stomach pain Sodium Chloride (0.9% Saline Lock 10 Ml Syringe) 10 - 40 ml IV UD PRN PRN Reason: SALINE FLUSH Last Admin: 09/24/20 22:44 Dose: 20 ml Documented by: Topiramate (Topiramate 25 Mg Tablet) 25 mg PO BID [facility] Last Admin: 09/25/20 09:52 Dose: 25 mg Documented by: Discharge Activity: Return to Normal Activity Return to work on:: 09/28/20 May shower in (days): 1 November resume sexual activity in: No Restrictions Weight Bearing Status: Weight bearing as tolerated Home Medications: Medications to take at Discharge Calcium Citrate/Vitamin D3 [Calcium Citrate-Vit D3 Tablet] 1 ea PO BID 04/09/16 Biotin 10,000 mcg PO DAILY 02/16/18 Ferrous Gluconate 325 mg PO DAILY 02/16/18 Gabapentin [Neurontin] 600 mg PO BID 02/16/18 Topiramate [Topamax] 25 mg PO BID 02/16/18 [id number]-xnganude-vfsrfa tablet 1 tab PO DAILY 02/26/18 baclofen 10 mg tablet 10 mg PO Q6H PRN PRN tab 03/05/19 gabapentin 300 mg capsule 900 mg PO QHS cap 03/05/19 meloxicam 15 mg tablet 15 mg PO DAILY tab 03/05/19 Atorvastatin Calcium [Lipitor] 20 mg PO QHS 08/08/19 Albuterol Sulfate [Albuterol Sulfate Hfa] 2 puff INHALATION Q4H PRN 09/17/20 Buspirone HCl 15 mg PO TID PRN 09/17/20 Fluoxetine HCl [Prozac] 10 mg PO DAILY 09/17/20 Levothyroxine Sodium [Synthroid] 150 mcg PO DAILY 09/17/20 Metformin HCl 1,000 mg PO BID 09/17/20 Pantoprazole Sodium [Protonix] 40 mg PO BID PRN 09/17/20 Primary Care Physician: Kevin Bah MD [Primary Care Provider] - Please follow up with your Primary Care Physician in: Primary care physician Patient Instructions: ED Chest Pain, Noncardiac Disposition: Home Minutes spent on discharge:: 35 Medical Necessity - Tobacco Use Smoking Status: Current some day smoker Tobacco Use: Cigarettes Meaningful Use Info Meaningful Use Diagnoses (Choose all that apply): None applicable <Helena Aguayo Marcelo - Last Filed: 09/25/20 12:28> Discharge Date and Diagnosis - Primary Discharge Diagnosis Acute Problems: Active Problems (Last Reviewed 09/24/20 @ 15:[address] Jordy Sosa DO) Chest pain, unspecified (Acute) - Secondary Discharge Diagnosis Chronic Problems: Chronic Problems (Last Reviewed 09/24/20 @ 15:[address] Jordy Sosa DO) Bone lesion (Chronic) Intractable low back pain (Chronic) Complex ovarian cyst (Chronic) cea and ca125 ordered Major depressive disorder (Chronic) Anxiety (Chronic) GERD without esophagitis (Chronic) Chronic cluster headache, not intractable (Chronic) Age-related osteoporosis without current pathological fracture (Chronic) Primary generalized (osteo)arthritis (Chronic) Other intervertebral disc degeneration, lumbar region (Chronic) Hypothyroidism (Chronic) Anemia (Chronic) COPD (chronic obstructive pulmonary disease) (Chronic) Muscle weakness (Chronic) Spinal stenosis, lumbar region without neurogenic claudication (Chronic) Neuromuscular scoliosis (Chronic) Chronic low back pain (Chronic) Paraplegia (Chronic) Tobacco use disorder (Chronic) Morbid obesity (Chronic) HTN (hypertension) (Chronic) HLD (hyperlipidemia) (Chronic) Dysthymic disorder (Chronic) Diabetes mellitus type 2, uncontrolled, without complications (Chronic) Chronic Airway Obstruction NEC (Chronic) Hospital Course and Treatment Imaging Results: 09/25/20 05:55 Nuclear Stress Test - Chemical [NM] AM (NON MEDS) Summary of Care Provided: Hospitalist note: Discharge summary above reviewed and I concur with the above discharge and treatment plan. Patient was admitted for atypical chest pain for evaluation. Initial and repeat EKG showed no evidence of acute hemic changes. Troponin was negative x3. Chest x-ray showed no acute findings. Routine blood work was unremarkable and at her baseline. She underwent nuclear stress test that showed no evidence of stress-induced myocardial ischemia. ACS ruled out. Her chest pain attributed to musculoskeletal pain. Patient discharged home in a stable medical condition, discharged in her same previous medications without any changes, recommended follow-up with PCP in 1 to 2 weeks. Physical examination: General: Alert, Oriented x3, Cooperative, No apparent distress HEENT: Atraumatic, PERRLA, EOMI, Normocephalic Oral: Moist Mucosa, No Gingival or Mucosal Lesions/ Ulcerations Neck: Supple, No JVD, Negative Carotid Bruits, Trachea Midline, Thyroid Normal Size and Texture Lungs: Clear to auscultation, No rhonchi, No wheeze, No rales Cardiovascular: Regular rate, Regular Rhythm, Normal S1, Normal S2, PMI Normal Abdomen: Bowel Sounds Present, Soft, Non Tender, Non-Distended, No Hepato-splenomegaly, Obese Extremities: No clubbing, No cyanosis, No edema Skin: No rashes, No breakdown Lymphatic: No Cervical, Supraclavicular, or Inguinal Adenopathy Neurological: Cranial nerves II-XII grossly intact, - - Paraparesis. Psych/Mental Status: Normal Affect, Appropriate. This note was generated with [employer] dictation software. It may contain incorrect words, spelling, and punctuation that were not noted in checking the note before signing. - Physical Exam Vitals/I&O's: Vital Signs Temp Pulse Resp BP Pulse Ox 97.1 F L 83 18 103/56 L 98 09/25/20 09:53 09/25/20 09:53 09/25/20 09:53 09/25/20 09:53 09/25/20 09:53 Oxygen Delivery Method Room Air Weight: 213 lb 8 oz Body Mass Index (BMI) 37.8 Finger Stick Blood Glucose 130 Intake and Output for Last 24 Hours 09/23/20 09/24/20 09/25/20 23:59 23:59 23:59 Intake Total 1702.5 / 1702.5 Output Total 650 / 650 450 / 450 Balance 1052.5 / 1052.5 -450 / -450 Laboratory Results 09/24/20 14:23: WBC 7.9, RBC 3.84 L, Hgb 10.9 L, Hct 35.3 L, MCV 91.9, MCH 28.4, MCHC 30.9 L, RDW Std Deviation 47.5 H, RDW Coeff of Jarrod 14.2, Plt Count 188, MPV 11.4, Immature Gran % (Auto) 0.600, Neut % (Auto) 54.9, Lymph % (Auto) 34.4, [place] % (Auto) 6.6, Eos % (Auto) 3.1, Baso % (Auto) 0.4, Absolute Neuts (auto) 4.3, Absolute Lymphs (auto) 2.70, Nucleated RBC % 0 09/24/20 14:23: Sodium 141, Potassium 4.3, Chloride 111 H, Carbon Dioxide 26.0, Anion Gap 4 L, BUN 29 H, Creatinine 1.28 H, Estim Creat Clear Calc 39.15, Est GFR (MDRD) Af Amer 55 L, Est GFR (MDRD) Non-Af 45 L, BUN/Creatinine Ratio 22.7 H, Glucose 100, Calcium 9.4, Troponin I < 0.015 09/24/20 14:23: APTT 28.6 09/24/20 17:06: POC Glucose 154 H 09/24/20 17:21: Troponin I < 0.015 09/24/20 20:58: Troponin I < 0.015 09/24/20 22:27: POC Glucose 99 09/25/20 05:16: Sodium 141, Potassium 4.1, Chloride 111 H, Carbon Dioxide 22.0, Anion Gap 8, BUN 30 H, Creatinine 1.22 H, Estim Creat Clear Calc 41.07, Est GFR (MDRD) Af Amer 58 L, Est GFR (MDRD) Non-Af 48 L, BUN/Creatinine Ratio 24.6 H, Glucose 114 H, Calcium 8.9 09/25/20 06:25: POC Glucose 117 H 09/25/20 11:44: POC Glucose 168 H Current Medications Acetaminophen (Acetaminophen 325 Mg Tablet) 650 mg PO Q6H PRN PRN PRN Reason: Pain Score 1-10/Temp > 100.7 F Last Admin: 09/24/20 23:53 Dose: 650 mg Documented by: Albuterol Sulfate (Albuterol 2.5 Mg/3 Ml Vial.Neb.) 2.5 mg INHALATION Q4H PRN PRN PRN Reason: SOB &/OR WHEEZING Atorvastatin Calcium (Atorvastatin Calcium 20 Mg Tablet) 20 mg PO QHS [facility] Last Admin: 09/24/20 22:30 Dose: 20 mg Documented by: Baclofen (Baclofen 10 Mg Tablet) 10 mg PO Q6H PRN PRN PRN Reason: SPASMS Buspirone HCl (Buspirone 15 Mg Tablet) 15 mg PO TID PRN PRN PRN Reason: mood Calcium/Vitamin D (Calcium Carb/Vitamin D 1 Tablet Tablet) 1 tablet PO BID@1200,1700 [facility] Last Admin: 09/25/20 11:50 Dose: 1 tablet Documented by: Ferrous Gluconate (Ferrous Gluconate 324 Mg Tablet) 324 mg PO DAILY@1200 [facility] Last Admin: 09/25/20 11:50 Dose: 324 mg Documented by: Fluoxetine HCl (Fluoxetine 10 Mg Capsule) 10 mg PO DAILY [facility] Last Admin: 09/25/20 09:50 Dose: 10 mg Documented by: Gabapentin (Gabapentin 600 Mg Tablet) [facility] Last Admin: 09/25/20 09:51 Dose: 600 mg Documented by: Gabapentin (Gabapentin 300 Mg Capsule) 900 mg PO QHS [facility] Last Admin: 09/24/20 22:30 Dose: 900 mg Documented by: Sodium Chloride () 250 mls @ 15 mls/hr IV .[id number] PRN PRN Reason: Additional IVPB Infusion Insulin Human Lispro (Insulin Lispro 100 Unit/Ml Insuln.Pen) 0 unit SC TIDAC [facility]; Protocol Last Admin: 09/25/20 11:45 Dose: 1 unit Documented by: Levothyroxine Sodium (Levothyroxine 150 Mcg Tablet) 150 mcg PO DAILY@0600 [facility] Last Admin: 09/25/20 06:24 Dose: 150 mcg Documented by: Lorazepam (Lorazepam 1 Mg Tablet) 1 mg PO BID PRN PRN PRN Reason: ANXIETY Last Admin: 09/24/20 23:53 Dose: 1 mg Documented by: Metformin HCl (Metformin Hcl 1,000 Mg Tablet) 1,[facility] Last Admin: 09/25/20 09:51 Dose: 1,000 mg Documented by: Multivitamins/Minerals (Multivitamins,Ther W-Minerals Tablet) 1 tablet PO DAILY@1200 [facility] Last Admin: 09/25/20 11:50 Dose: 1 tablet Documented by: Nitroglycerin (Nitroglycerin (Inpatient Use) 0.4 Mg Tab.Subl) 0.4 mg SUBLINGUAL Q5M PRN PRN Reason: CARDIAC/CHEST PAIN Nutritional Formula (Lactose Free) (Glucerna Shake 120 Ml Liquid) 120 ml PO 4X/DAY [facility] Last Admin: 09/25/20 11:47 Dose: Not Given Documented by: Ondansetron HCl (Ondansetron 4 Mg/2 Ml Vial) 4 mg IV Q8H PRN PRN PRN Reason: NAUSEA/VOMITING Oxycodone HCl (Oxycodone Cr 15 Mg Tablet) 15 mg PO BID [facility] Last Admin: 09/25/20 09:50 Dose: 15 mg Documented by: Oxycodone HCl (Oxycodone 5 Mg Tablet) 5 mg PO Q6H PRN PRN PRN Reason: Pain Score 1-10 Last Admin: 09/24/20 17:41 Dose: 5 mg Documented by: Pantoprazole Sodium (Pantoprazole Sodium 40 Mg Tablet) 40 mg PO BID PRN PRN PRN Reason: stomach pain Sodium Chloride (0.9% Saline Lock 10 Ml Syringe) 10 - 40 ml IV UD PRN PRN Reason: SALINE FLUSH Last Admin: 09/24/20 22:44 Dose: 20 ml Documented by: Topiramate (Topiramate 25 Mg Tablet) 25 mg PO BID [facility] Last Admin: 09/25/20 09:52 Dose: 25 mg Documented by: Disposition: Home Minutes spent on discharge:: 26 Patient Condition:: Stable Meaningful Use Info Meaningful Use Diagnoses (Choose all that apply): None applicable OBSV E&M: 42675 Observation care discharge
--- NOTE | 2020-09-25 11:18 | STRESSREP_ITS ---
Stress Test Report Date: ??2020 Procedure: Pharmacologic stress nuclear imaging study Indications: Chest pain Consent: Per the patient Procedure: The patient underwent pharmacologic (Regadenoson 0.4mg ) evaluation with a peak heart rate of 108 beats per minute (67%predicted maximal heart rate) and a peak blood pressure of 120/60 mmHg. The baseline ECG demonstrated normal sinus rhythm. The peak pharmacologic ECG demonstrated no obvious ECG changes. There were no cardiac dysrhythmias pretest, during pharmacologic infusion, or recovery. There was no complaint of chest discomfort during pharmacologic infusion or recovery. The examination was discontinued secondary to completion of protocol. Impression: 1. Pharmacologic (Regadenoson) evaluation 2. Peak pharmacologic ECG with no obvious ECG changes. 3. There were no cardiac dysrhythmias pretest, during pharmacologic infusion, or recovery. 4. Nuclear images pending Myocardial perfusion imaging study: Technique: The patient was injected with 14.1 millicuries of technetium 99m Cardiolite and subsequently rest SPECT Cardiolite nuclear imaging was obtained in the horizontal long, vertical long, and short axis views. The patient underwent pharmacologic (Regadenoson) evaluation with a peak heart rate of 108 beats per minute (67% percent predicted maximal heart rate) and a peak blood pressure of 120/60 mmHg. The patient was injected with 44.5 millicuries of technetium 99m Cardiolite and subsequently stress SPECT Cardiolite nuclear imaging was obtained in the horizontal long, vertical long, and short axis views. A gated Cardiolite study at peak stress was obtained. Interpretation: Rest and stress SPECT Cardiolite nuclear imaging status post realignment, normalization, and attenuation correction demonstrate relative uniform tracer uptake and myocardial perfusion appearing within normal limits. There is end systolic thickening and brightening. The gated Cardiolite study demonstrates myocardial thickening and inward wall motion. The reported LVEF is 75%. Impression: 1. Rest and stress SPECT Cardiolite nuclear imaging demonstrate relative uniform tracer uptake and myocardial perfusion appearing within normal limits. 2. The gated Cardiolite study reports an LVEF of 75%. This note was generated with [employer] software. It may contain incorrect words, spelling, and punctuation that were not noted in checking the note before signing.
--- NOTE | 2020-09-25 11:42 | PHA.DC.MR ---
Pharmacy Service has performed discharge medication reconciliation for this patient. No new medications at time of dc medication review. Medications reviewed are from previously reported home medications. Home Medications Calcium Citrate/Vitamin D3 [Calcium Citrate-Vit D3 Tablet] 1 ea PO BID 04/09/16 Biotin 10,000 mcg PO DAILY 02/16/18 Ferrous Gluconate 325 mg PO DAILY 02/16/18 Gabapentin [Neurontin] 600 mg PO BID 02/16/18 Topiramate [Topamax] 25 mg PO BID 02/16/18 fvmimkcptwii-veintzeb-itycsn tablet 1 tab PO DAILY 02/26/18 Lorazepam [Ativan] 1 mg PO BID PRN PRN #10 tab 03/30/18 baclofen 10 mg tablet 10 mg PO Q6H PRN PRN tab 03/05/19 gabapentin 300 mg capsule 900 mg PO QHS cap 03/05/19 meloxicam 15 mg tablet 15 mg PO DAILY tab 03/05/19 Atorvastatin Calcium [Lipitor] 20 mg PO QHS 08/08/19 Albuterol Sulfate [Albuterol Sulfate Hfa] 2 puff INHALATION Q4H PRN 09/17/20 Buspirone HCl 15 mg PO TID PRN 09/17/20 Fluoxetine HCl [Prozac] 10 mg PO DAILY 09/17/20 Levothyroxine Sodium [Synthroid] 150 mcg PO DAILY 09/17/20 Metformin HCl 1,000 mg PO BID 09/17/20 Pantoprazole Sodium [Protonix] 40 mg PO BID PRN 09/17/20 Oxycodone HCl/Acetaminophen [Percocet 5-325 mg Tablet] 1 tab PO Q6H PRN PRN 4 Days #16 tab 09/23/20 Oxycodone Myristate [Xtampza ER] 27 mg PO BID 5 Days #10 09/23/20 The patient's discharge medication list was reviewed for discrepancies and discrepancies were resolved.
[2020-09-25] MEDS: Insulin Lispro 100 UNIT/ML INSULN.PEN SC (11:45)
[2020-09-25 11:46] LABS: Bedside Glucose 168 mg/dL (70-110)
[2020-09-25] MEDS: Calcium Carb/Vitamin D 1 TABLET Tablet PO (11:50)
[2020-09-25] MEDS: Ferrous Gluconate 324 MG Tablet PO (11:50)
[2020-09-25] MEDS: Multivitamins,Ther W-Minerals Tablet 1 TABLET PO (11:50)
[2020-09-25] MEDS: oxyCODONE 5 MG Tablet PO (14:27)
--- NOTE | 2020-09-25 14:27 | CASEMGMT ---
SHARITA faxed discharge instructions to Mariela Gutierres at [facility]. Ingrid DILL MSW
[2020-09-25] MEDS: LORazepam 1 MG Tablet PO (14:30)
[2020-09-25 15:06] VITALS: BP 102/54; PULSE 86; RESP 18; TEMP 37; O2SAT 97
== END 2020-09-25 09:52 | disposition home or self-care (01) ==
LOC: ED 14:52 → PCU 15:48
PROVIDERS: Emergency Provider Emergency Medicine; PCP Internal Medicine; Visit Provider Hospitalist
DX: R07.89 Other chest pain (principal); R42 Dizziness and giddiness; R00.2 Palpitations; R06.00 Dyspnea, unspecified; R06.02 Shortness of breath; F41.9 Anxiety disorder, unspecified; J44.9 Chronic obstructive pulmonary disease, unspecified; E11.9 Type 2 diabetes mellitus without complications; K21.9 Gastro-esophageal reflux disease without esophagitis; E78.5 Hyperlipidemia, unspecified; I10 Essential (primary) hypertension; E03.9 Hypothyroidism, unspecified; F17.210 Nicotine dependence, cigarettes, uncomplicated; M89.9 Disorder of bone, unspecified; F32.9 Major depressive disorder, single episode, unspecified; M51.36 Other intervertebral disc degeneration, lumbar region; D64.9 Anemia, unspecified; E66.01 Morbid (severe) obesity due to excess calories; G82.20 Paraplegia, unspecified; M41.40 Neuromuscular scoliosis, site unspecified; M48.061 Spinal stenosis, lumbar region without neurogenic claudication; M15.0 Primary generalized (osteo)arthritis; Z79.899 Other long term (current) drug therapy; Z98.84 Bariatric surgery status
CPT/HCPCS: 36415; 71045; 78452; 80048; 82962; 84484; 85025; 85730; 93005; 93017; 96360; 96361; 99218; 99285; A9500; J7030; A4216; G0378; J2785

== ENCOUNTER → 2020-10-16 13:10 | Outpatient (CLI) | payer MEDICARE, MEDICAID, SELFPAY ==
[2020-10-08 11:47] VITALS: BMI 34.8
--- NOTE | 2020-10-16 13:15 | CT_ITS ---
STUDY: CT RIGHT FEMUR WITH CONTRAST REASON FOR EXAM: Female, 60 years old. BONE LESION RADIATION DOSAGE (If Supplied By Facility): CTDIvol = ( 21.77 ) mGy, DLP = ( 1399.56 ) mGycm TECHNIQUE: Transaxial CT imaging of the femur was performed pre and post contrast administration. The examination was performed with intravenous administration of IV 100mL Isovue-300. Sagittal and coronal images were reconstructed. Individualized dose optimization techniques were used for this CT. COMPARISON: None. FINDINGS: Screw fixation of the right sacral iliac joint. Normal visualized femur. Normal visualized soft tissue structure. There is no enhancing abnormality. CT/Extremity Lower WITH Contrast IMPRESSION: No bony abnormality is seen. Electronically Signed: Raúl Soto MD at 15:27 EDT , Service support ,
== END ==
PROVIDERS: PCP Internal Medicine; Referring Provider Internal Medicine Medical Oncology; Visit Provider Internal Medicine Medical Oncology
DX: M89.9 Disorder of bone, unspecified (principal)
CPT/HCPCS: 73701; Q9967

== ENCOUNTER → 2021-01-15 09:17 | Outpatient (CLI) | payer MEDICARE, MEDICAID, SELFPAY ==
[2021-01-15 08:39] VITALS: BMI 34.8
[2021-01-19 03:06] LABS: HSV 1 By PCR Negative (Negative)
[2021-01-20 15:59] LABS: HSV 2 By PCR Negative (Negative); HSV 2 IgG < 0.91 index (0.00-0.90)
== END ==
PROVIDERS: PCP Internal Medicine; Referring Provider Obstetrics & Gynecology; Visit Provider Obstetrics & Gynecology
DX: N90.89 Other specified noninflammatory disorders of vulva and perineum (principal)
CPT/HCPCS: 36415; 86695; 86696; 87529

== ENCOUNTER → 2021-02-05 12:51 | Outpatient (CLI) | payer MEDICARE, MEDICAID, SELFPAY ==
--- NOTE | 2021-02-05 | VUL_PTH ---
PATIENT: CONRADO RAMAN LOC: [facility] U#:[id number] AGE/SX: 65/F ROOM: RE02/05/[address]: Dr. Mecca Nevarez MD : 1960 BED: DIS: SPEC #: [id number] RECD: 02/05/21 12:40 STATUS: KRYSTLE THOMAS #: [id number] ESA: 02/05/21 00:[address]: Mecca Nevarez DEPT: SURGICAL PATHOLOGY RECD BY: Anny Guthrie ENTERED: 02/05/21 13:32 SP TYPE: VULVA BX OTHR DR: Dr. Kevin Bah MD Tissues: A - Vulva, NOS B - Vulva, NOS Procedures: Special Stain Group I Surgery Specimen Level IV GMS Stain (control) HEADER OPERATION: Vulvar biopsy PRE-OP DIAGNOSIS: Vulvar lesion TISSUE SUBMITTED: A ? Left vulvar biopsy, B ? Right vulvar biopsy MICROSCOPIC DIAGNOSIS A. Left vulva, punch biopsy: Focal ulceration, associated acute inflammation and granulation tissue reaction. Lichenoid dermal chronic inflammation. Negative for malignancy. See comment. B. Right vulva, biopsy: Extensive hyperkeratosis, focal parakeratosis and epithelial hyperplasia. Mild dermal chronic inflammation and reactive changes. Negative for malignancy. See comment. SJ:rg 02/08/2021 COMMENT A. Special stain for fungi is negative for organisms; matched control is appropriate. Clinical correlation and appropriate follow up are necessary. This case was reviewed and diagnosis discussed with Dr. Nevarez on 02/16/21. Case has been reviewed in consultation with Dr. Powell who concurs with the above diagnosis. IDC:AM MICROSCOPIC DESCRIPTION Slides are reviewed. GROSS DESCRIPTION A - Received in fixative is one container labeled with the patient's name and designated left vulva. The specimen consists of one irregular fragment of light crowe soft tissue that measures 0.3 x 0.3 x 0.1 cm. The specimen is totally submitted in one cassette. B - Received in fixative is one container labeled with the patient's name and designated right vulva. The specimen consists of one irregular fragment of light crowe soft tissue that measures 0.3 x 0.2 x 0.1 cm. The specimen is totally submitted in one cassette. / KASSI:holland 02/05/21 TC:2 CPT: 59918 x2, 67178
[2021-02-05 11:21] VITALS: BMI 34.8
== END ==
PROVIDERS: PCP Internal Medicine; Visit Provider Obstetrics & Gynecology
DX: N90.89 Other specified noninflammatory disorders of vulva and perineum (principal)
CPT/HCPCS: 88305; 88312

== ENCOUNTER 2021-10-18 12:59 | Outpatient (RCR) | payer MEDICARE, MEDICAID, SELFPAY ==
[2021-10-18 14:21] VITALS: BP 116/57; PULSE 87; TEMP 36; BMI 32.3
--- NOTE | 2021-10-18 14:29 | NURSING ---
Patient asked to bring an updated med list to next apt.
--- NOTE | 2021-10-18 15:23 | HP.PCM_ITS ---
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 Nevarez for pressure ulcers on her left medial buttocks. Patient is wheelchair bound. She has a significant medical history of DM type 2, multiple back surgeries which eventually caused her become a paraplegic. Patient is a very poor historian and keeps falling asleep during her appointment. Patient is not sure how long she has had the pressure sore on her left medial buttocks, she is guessing a few months. She has been placing a cream on this area. She is unsure what cream it is. The ulcer cluster is painful to palpation. She states she sits in her wheelchair often more than 8 hours per day and will sometimes fall asleep in her chair. She does not have a special cushion for her wheelchair. She sleeps in a regular hospital bed, not a low air loss mattress. Wound care - Wash daily with soap and water. Place Aquacel - Ag and cover with gauze daily. Try to off load as much as possible and try to avoid sitting for long periods of time. Wound culture obtained today, 10/18/21. Depending on the results of the culture it may necessitate the need for treatment with antibiotics. Progress of Wound: Left buttock cluster ulcers are red, painful and obviously from too much pressure on this area. 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, lumbar region Paraplegia Primary generalized (osteo)arthritis Spinal stenosis, lumbar region without neurogenic claudication Home Medications calcium citrate-vitamin D3 1 ea PO BID 04/09/16 [History Last Taken 09/23/20] biotin 10,000 mcg PO DAILY 02/16/18 [History Last Taken 09/23/20] ferrous gluconate 325 mg PO DAILY 02/16/18 [History Last Taken 09/23/20] topiramate 25 mg PO BID 02/16/18 [History Last Taken 09/24/20] yfntywnbeous-bjspefzy-sgrkgk tablet 1 tab PO DAILY 02/26/18 [History Last Taken 09/23/20] baclofen 10 mg tablet 10 mg PO Q6H PRN PRN tab 03/05/19 [History Last Taken 09/23/20] atorvastatin 20 mg PO QHS 08/08/19 [History Last Taken 09/23/20] buspirone 15 mg PO TID PRN 09/17/20 [History Last Taken 09/23/20] levothyroxine 150 mcg PO DAILY 09/17/20 [History Last Taken 09/24/20] metformin 500 mg PO DAILY 09/17/20 [History Last Taken 09/23/20] pantoprazole 40 mg PO BID PRN 09/17/20 [History Last Taken 09/24/20] acetaminophen 500 mg PO Q6H PRN 10/08/20 [History Last Taken Unknown] albuterol sulfate 1 - 2 puff INHALATION Q4H PRN PRN 10/08/20 [History Last Taken Unknown] cholecalciferol (vitamin D3) 2,000 unit PO DAILY 10/08/20 [History Last Taken Unknown] cyanocobalamin (vitamin B-12) 500 mcg PO DAILY@0800 10/08/20 [History Last Taken Unknown] hydrocodone-acetaminophen 1 tab PO Q6H PRN PRN 10/08/20 [History Last Taken Unknown] ipratropium-albuterol 1 puff INHALATION 4X/DAY PRN 10/08/20 [History Last Taken Unknown] methadone 10 mg PO Q12H 10/08/20 [History Last Taken Unknown] sennosides 1 tab PO DAILY 10/08/20 [History Last Taken Unknown] betamethasone valerate 0.1 % topical cream 1 applic TOPICAL BID PRN #15 g 01/15/21 [Rx Last Taken Unknown] cetirizine 10 mg tablet 10 mg PO DAILY #30 tab 01/15/21 [Rx Last Taken Unknown] fluoxetine 10 mg capsule 30 mg PO DAILY cap 01/15/21 [History Last Taken Unknown] furosemide 20 mg tablet 20 mg PO DAILY #30 tab 01/15/21 [Rx Last Taken Unknown] gabapentin 300 mg capsule 300 mg PO BID cap 01/15/21 [History Last Taken Unknown] lorazepam 1 mg tablet 1 mg PO BID PRN #60 tab 01/15/21 [Rx Last Taken Unknown] meloxicam 15 mg tablet 7.5 mg PO DAILY tab 01/15/21 [History Last Taken Unknown] nicotine 21 mg/24 hr daily transdermal patch 1 patch TRANSDERMAL Q24H #1 ea 01/15/21 [Rx Last Taken Unknown] ondansetron 4 mg disintegrating tablet 4 mg PO Q8H #30 tab 01/15/21 [Rx Last Darrel en Unknown] potassium chloride 10 mEq tablet,extended release 10 meq PO DAILY #30 tab 01/15/21 [Rx Last Taken Unknown] zinc oxide 20 % topical ointment 1 applic TOPICAL 8-12XD PRN #425 g 07/08/21 [Rx Last Taken Unknown] hydrocolloid dressing 4 X 4 #5 ea 09/07/21 [Rx Last Taken Unknown] valacyclovir 500 mg tablet 500 mg PO QDAY #30 tab 09/27/21 [Rx Last Taken Unknown] lidocaine 5 % topical ointment 1 applic TOPICAL .prn 7 Days #60 g 10/15/21 [Rx Last Taken Unknown] Allergy/AdvReac Type Severity Reaction Status Date / Time NSAIDS (Non-Steroidal Allergy GASTRIC Verified 10/18/21 13:01 Anti-Inflamma BYPASS trazodone AdvReac Other Verified 10/18/21 13:01 Family History Father Diabetes Hypertension Myocardial infarction Alcoholism Brother Myocardial infarction Alcoholism Mother CVA (cerebral vascular accident) Surgical History H/O dilation and curettage H/O gastric bypass History of bilateral salpingo-oophorectomy History of cholecystectomy Hydradenitis S/P arthroscopic knee surgery S/P lumbar spine operation s/p nerve spine surgery s/p upper back surgery skin graft Social History Smoking Status: Current every day smoker alcohol intake: never substance use type: does not use caffeine: Yes what type of physical activity do you participate in: none seatbelt use: always do you feel safe at home: Yes additional social history: ROS Constitutional Constitutional: Reports fatigue Eyes Eyes: Reports none ENT HEENT: Reports as per HPI Cardiovascular Cardiovascular: Denies abdominal pain or chest pain Respiratory/Chest Respiratory/Chest: Denies chest congestion, chest tightness or cough Gastrointestinal Gastrointestinal: Denies abdominal pain, anorexia or diarrhea Musculoskeletal Musculoskeletal: Reports other Details: wheelchair bound, has a lot of back pain, paralyzed Integumentary Integumentary: Reports skin ulcer Neurologic Neurologic: Reports abnormal hearing Psychiatric Psychiatric: Reports as per HPI Vital Signs Vital Signs Vital Signs: 10/18/21 14:21 Temperature 96.8 F L Temperature Source Temporal Pulse Rate 87 Blood Pressure 116/57 L Blood Pressure Mean 76 Blood Pressure Source Monitor Blood Pressure Position Sitting Blood Pressure Location Left Arm Weight Weight: 200 lb Body Mass Index (BMI) 32.3 Physical Exam Const Constitutional Narrative: Patient is very tired, she falls asleep easily. She states that she took her methadone pain medication before coming to this appointment. General Appearance: cooperative and lethargic Orientation / Consciousness: oriented to person, oriented to place and lethargic HEENT normocephalic Resp normal respiratory effort and normal air movement Effort and Inspection: able to speak in complete sentences and symmetric chest movement Cardio regular rate and regular rhythm GI normal to inspection, nondistended, normoactive bowel sounds, soft to palpation, non-tender and non-distended Extremity normal capillary refill Skin Wound Narrative: Left medial buttock ulcer cluster is pink, very tender to palpation. It is a Stage 3 ulcer. Erythematous surrounding the ulcer. Neuro CN's II-XII intact bilaterally Sensorium / Orientation: lethargic Psych cooperative and speech normal Debridement Note Debridement Note Wound debrided: medial buttock cluster ulcer Laterality: Left Wound Grade/Stage: Stage III Type of Debridement: Excisional debridement Anesthesia Used: 5% Lidocaine Gel Depth: Down to and including healthy tissue and in the subcutaneous layer Percentage of wound debrided: 100 Instrument Used: 5mm curette Tissue Removed: Non viable tissue and slough Severity: Fat Layer Exposed Amount of bleeding with debridement: Mild Bleeding Controlled with: Pressure Patient tolerated procedure: Patient tolerated procedure well Post-Debridement Measurements and Additional Note: Post-Debridement Measurements/Treatment WC - Nurse 1 - General Ulcer Assessment Start: 10/18/21 14:17 Freq: Status: Active Protocol: TAISHA Activity Type Activity Date Activity User E-Sign Co-Sign Detail Recorded Client Recorded Date Recorded By Document 10/18/21 14:21 RICH [id number] 10/18/21 14:29 RICH 10/18/21 14:21 - Today's Visit Information Type of service Initial Visit Arrival Mode Wheelchair Patient Identification Verified (Name & Yes ) Height and Weight Height 5 ft 6 in Weight 200 lb Weight in Pounds 200.0 lbs Body Mass Index (BMI) 32.3 BMI Classification Obese BSA - Benedict 2.00 Vital Signs Temperature (97.8 F-99.1 F) 96.8 F L Temperature Source Temporal Pulse Rate (60-100) 87 Pulse Location Monitor Blood Pressure (90/60-120/80) 116/57 L Blood Pressure Mean 76 Source Monitor Position Sitting Blood Pressure Location Left Arm History Since Last Visit- (Skip if this is Patient's initial visit) Have you changed medications since your No last visit? Any new allergies or adverse reactions No Had a fall/change in ADL's that may No increase risk of falls Signs or symptoms of abuse and/or No neglect since last visit Have you been in the hospital since your No last visit? Has dressing in place as prescribed No Has compression in place as prescribed N/A Has offloadiing in place as prescribed N/A Experienced any changes in pain level or No management Left Footwear Regular Shoe Right Footwear Regular Shoe Pain Scale: 0-10 Numeric Is Patient Pain Free? Yes - Nurse 1 - General Ulcer Measurement Start: 10/18/21 14:17 Freq: Status: Active Protocol: Activity Type Activity Date Activity User E-Sign Co-Sign Detail Recorded Client Recorded Date Recorded By Document 10/18/21 14:21 RICH [id number] 10/18/21 14:29 RICH 10/18/21 14:21 Wound Center Nurse 1 #1 left Buttock Cluster -Current Size (cm) - Length 3.5 -Current Size (cm) - Width 1.9 -Current Size (cm) - Depth 0.1 -Total Square Cm 6.65 -Exudate Amt Small -Exudate Type Serosanguineous -Wound Margin Distinct, Outline Attached -Granulation Amt Medium (34-66%) -Granulation Quality [place] -Necrosis Amt Small (1-33%) -Necrotic Tissue Type Adherent Slough -Texture (Vivi-wound Skin Appearance) Assessed, Scarring -Moisture (Vivi-wound Skin Appearance) No Abnormality, Assessed -Color (Vivi-wound Skin Appearance) No Abnormality, Assessed -Temperature (Vivi-wound Skin No Abnormality Appearance) (Pt Warm) -Tenderness on Palpation (Vivi-wound No Skin Appearance) -Ulcer Cleansing Rinsed/ Irrigated with Saline -Foul Odor after Cleansing No -Anesthetic Used 4% Lidocaine Solution,5% Lidocaine Gel WC - Nurse 2 - General Ulcer CM Notes Start: 10/18/21 14:17 Freq: Status: Active Protocol: Activity Type Activity Date Activity User E-Sign Co-Sign Detail Recorded Client Recorded Date Recorded By Document 10/18/21 14:49 [id number] 10/18/21 15:00 10/18/21 14:49 Wound Center Nurse 2 -Time 14:51 -Correct Patient Yes -Correct Side, Site, Position Yes -Correct Procedure Yes -Procedure Performed Yes -Type of Procedure Debridement -Clinical Debridement Subcutaneous -Tissue Removed Subcutaneous -Post Debridement (cm) - Length 0.5 -Post Debridement (cm) - Width 2.0 -Post Debridement (cm) - Depth 0.2 -Total Square (Post) (cm) 1.00 -Area of Debridement (cm) - Length 0.5 -Area of Debridement (cm) - Width 2.0 -Total Square (Area) (cm) 1.00 -Tunneling No -Undermining/Tunneling No -Circular Undermining No -Wound/Ulcer Outcome Not Healed -Ulcer Cleansing Rinsed/ Irrigated with Saline -Foul Odor after Cleansing No -Bioengineered Tissue No -Bleeding Controlled with Pressure -Treatment Response Procedure Tolerated Well -Offloading No -Pressure Reduction Wheelchair cushion -Debridement - Subq, 1st 20sq cm Yes Pain Scale: 0-10 Numeric Is Patient Pain Free? Yes Lab / Micro Data Labs: Laboratory Results - last 24 hr 10/18/21 13:38: HPV High Risk Cancelled, HPV Hi Risk Other Comm Cancelled, HPV Type 16 Comment Cancelled, HPV Type 18 Comment Cancelled, Pap Source Cancelled, Pap Smear Method Note Cancelled, Pap Previous History Cancelled, Pap Clinician Prov Diag Cancelled, Pap Specimen Adequacy Cancelled, Pap Maturation Index Cancelled, Pap Smear Diagnosis Cancelled, Pap Diag Provided By Cancelled, Pap Smear Comment Cancelled, Pap Smear Legend Cancelled, Pap Smear Note Cancelled, Pap Performed By Cancelled, Pap Signed Out By Cancelled, Pap Recommendation Cancelled, Pap Test Ordered Cancelled, Pap Special Procedure Cancelled, Pap Smear QC Review Cancelled, Pap Smear QA Comment Cancelled, Pap Smear Addendum Cancelled, Pap Smear Amended Rpt Cancelled, Thin Prep Pap Smear Cancelled Charges/Coding Procedures Integumentary 111xxx-[id number]: [id number] Shila subq tissue 20 sq cm/< Multi Select Codes Visit Charges Office Visit/Consults: 75717 OV L4 Est (25 modifier) Assessment/Plan Assessment/Plan (1) Decubitus ulcer of left buttock, stage 3: CODE(S): L89.323 - Pressure ulcer of left buttock, stage 3 (2) Diabetes mellitus type 2, uncontrolled, without complications: CODE(S): E11.65 - Type 2 diabetes mellitus with hyperglycemia (3) Tobacco use disorder: CODE(S): F17.200 - Nicotine dependence, unspecified, uncomplicated (4) Paraplegia: CODE(S): G82.20 - Paraplegia, unspecified PLAN: Patient was seen and evaluated in the wound center today. A subcutaneous debridement was performed on her left medial buttock ulcer cluster. This ulcer is a Stage III from pressure of sitting for long periods in her wheelchair and sleeping on a regular mattress. She would benefit from a better cushion for her wheel chair to help with the pressure from sitting. She would also benefit from a low air loss mattress to help prevent pressure while sleeping. Patient encouraged to off load frequently and to avoid sitting in her wheel chair for longer than 2 hours at a time. She is to avoid falling asleep in her wheelchair. Wound care will be Aquacel - Ag covered with gauze daily and as needed. She is to clean the area with soap and water at the time of the dressing change. If she has a BM, she should be careful not to get stool in this area, she may need to wash the area with soap and water and change the dressing after bowel movements. Wound culture obtained today, 10/18/21. Depending on the results of the culture, it may necessitate the need for treatment with antibiotics. Encourage diet high in protein, low in carbohydrates. Follow up one week. She is to call or come in sooner or go to the ED if she develops any issues or concerns. Over 35 minutes was spent with the patient and planning her care.
[2021-10-19 14:13] LABS: M R Staph aureus DNA By PCR Negative (Negative); Probe Check PASS; Specimen Processing Control PASS; Staph aureus DNA By PCR NEGATIVE (Negative)
[2021-10-21 18:19] LABS: HPV Reflexed? NOT INDICATED
== END 2021-10-21 23:59 | disposition home or self-care (01) ==
LOC: WC 12:59
PROVIDERS: Obstetrics & Gynecology; PCP Internal Medicine; Visit Provider Nurse Practitioner Family
DX: L89.323 Pressure ulcer of left buttock, stage 3 (principal); G82.20 Paraplegia, unspecified; J44.9 Chronic obstructive pulmonary disease, unspecified; E11.65 Type 2 diabetes mellitus with hyperglycemia; Z99.3 Dependence on wheelchair; F17.200 Nicotine dependence, unspecified, uncomplicated; Z79.84 Long term (current) use of oral hypoglycemic drugs; Z79.899 Other long term (current) drug therapy; Z79.890 Hormone replacement therapy; E03.9 Hypothyroidism, unspecified; K21.9 Gastro-esophageal reflux disease without esophagitis; F41.9 Anxiety disorder, unspecified; F32.A Depression, unspecified; M15.0 Primary generalized (osteo)arthritis; M41.40 Neuromuscular scoliosis, site unspecified; Z12.4 Encounter for screening for malignant neoplasm of cervix
CPT/HCPCS: 11042; 87070; 87075; 87077; 87186; 87205; 87640; 88175; 99213; G0145; G0463

== ENCOUNTER 2021-11-08 13:15 | Outpatient (RCR) | payer MEDICARE, MEDICAID, SELFPAY ==
[2021-10-22 00:54] VITALS: BP 116/57; PULSE 87; TEMP 36; BMI 32.3
[2021-10-25 13:29] VITALS: BP 163/75; PULSE 94; TEMP 36.6; BMI 32.3
--- NOTE | 2021-10-25 15:31 | PN.PCM_ITS ---
History of Present Illness Date of Service: 10/25/21 Chief Complaint: Sore on left buttocks History of Wound: Patient was referred by her [employer] SUPERVISOR, Dr. Nevarez for pressure ulcers on her left medial buttocks. Patient is wheelchair bound. She has a significant medical history of DM type 2, multiple back surgeries which eventually caused her become a paraplegic. Patient is a very poor historian and keeps falling asleep during her appointment. Patient is not sure how long she has had the pressure sore on her left medial buttocks, she is guessing a few months. She has been placing a cream on this area. She is unsure what cream it is. The ulcer cluster is painful to palpation. She states she sits in her wheelchair often more than 8 hours per day and will sometimes fall asleep in her chair. She does not have a special cushion for her wheelchair. She sleeps in a regular hospital bed, not a low air loss mattress. This week she has an area on her coccyx that is dry and pink. There is no separation of skin yet. Wound care - Wash daily with soap and water. Place Aquacel - Ag and cover with gauze daily. Try to off load as much as possible and try to avoid sitting for long periods of time. For the new red area on her cocccyx will have them start with aquaphore/A&D ointment/or another moisture barrier cream. Also try to off load off her back as much as posible. Wound culture obtained on 10/18/21 which were positive for MRSE and Anaerobic cocci. Will start her on Doxycycline and Flagyl. Progress of Wound: Left buttock cluster ulcer is stable. It is very painful to palpation. She has a small dry area on her coccyx which is pink, skin still is intact at this time. Objective Data Objective Data Vital Signs: Vital Signs Temp Pulse BP 97.9 F 94 163/75 H 10/25/21 13:29 10/25/21 13:29 10/25/21 13:29 Weight: 200 lb Body Mass Index (BMI) 32.3 Charges/Coding Procedures Integumentary 111xxx-113xx: 12437 Shila subq tissue 20 sq cm/< Physical Exam Const alert and oriented x3 HEENT normocephalic Head and Scalp: atraumatic Resp normal respiratory effort Cardio regular rate GI non-tender Palpation: soft Extremity normal capillary refill Skin Wound Narrative: Left buttock ulcer cluster is painful to palpation. It is pink and draining small amount of serosanguineous drainage. There is a new area of redness that is dry, the skin is intact but fragile on her coccy. Neuro CN's II-XII intact bilaterally Psych affect normal Debridement Note Debridement Note Wound debrided: Medial buttock ulcer cluster Laterality: Left Wound Grade/Stage: Stage III Type of Debridement: Excisional debridement Anesthesia Used: 5% Lidocaine Gel Depth: Down to and including healthy tissue and in the subcutaneous layer Percentage of wound debrided: 100 Instrument Used: 5mm curette Tissue Removed: Nonviable tissue and slough Severity: Fat Layer Exposed Bleeding Controlled with: Pressure and Compression and gauze Patient tolerated procedure: Patient tolerated procedure well Post-Debridement Measurements and Additional Note: Post-Debridement Measurements/Treatment WC - Nurse 1 - General Ulcer Assessment Start: 10/25/21 13:28 Freq: Status: Active Protocol: TAISHA Activity Type Activity Date Activity User E-Sign Co-Sign Detail Recorded Client Recorded Date Recorded By Document 10/25/21 13:29 [id number] 10/25/21 13:39 RICH 10/25/21 13:29 - Today's Visit Information Type of service Follow-up Visit (Physician/[employer] ) Arrival Mode Wheelchair Patient Identification Verified (Name & Yes ) Height and Weight Body Mass Index (BMI) 32.3 BMI Classification Obese Vital Signs Temperature (97.8 F-99.1 F) 97.9 F Temperature Source Temporal Pulse Rate (60-100) 94 Pulse Location Monitor Blood Pressure (90/60-120/80) 163/75 H Blood Pressure Mean (mm Hg) 104 Source Monitor Position Semi-Fowlers Blood Pressure Location Right Arm History Since Last Visit- (Skip if this is Patient's initial visit) Have you changed medications since your No last visit? Any new allergies or adverse reactions No Had a fall/change in ADL's that may No increase risk of falls Signs or symptoms of abuse and/or No neglect since last visit Have you been in the hospital since your No last visit? Has dressing in place as prescribed Yes Has compression in place as prescribed N/A Has offloadiing in place as prescribed N/A Experienced any changes in pain level or No management Left Footwear Regular Shoe Right Footwear Regular Shoe Pain Scale: 0-10 Numeric Is Patient Pain Free? Yes WC - Nurse 1 - General Ulcer Measurement Start: 10/25/21 13:28 Freq: Status: Active Protocol: Activity Type Activity Date Activity User E-Sign Co-Sign Detail Recorded Client Recorded Date Recorded By Document 10/25/21 13:29 RICH [id number] 10/25/21 13:39 KR 10/25/21 13:29 Wound Center Nurse 1 #1 left Buttock Cluster -Current Size (cm) - Length 1 -Current Size (cm) - Width 3 -Current Size (cm) - Depth 0.1 -Total Square Cm 3 -Exudate Amt Small -Exudate Type Serosanguineous -Wound Margin Distinct, Outline Attached -Granulation Amt Medium (34-66%) -Granulation Quality [place] -Necrosis Amt Small (1-33%) -Necrotic Tissue Type Adherent Slough -Texture (Vivi-wound Skin Appearance) Assessed, Scarring -Moisture (Vivi-wound Skin Appearance) Assessed,Dry/ Scaly -Color (Vivi-wound Skin Appearance) No Abnormality, Assessed -Temperature (Vivi-wound Skin No Abnormality Appearance) (Pt Warm) -Tenderness on Palpation (Vivi-wound No Skin Appearance) -Ulcer Cleansing Rinsed/ Irrigated with Saline -Foul Odor after Cleansing No -Anesthetic Used 5% Lidocaine Gel SCOTTY - Nurse 2 - General Ulcer CM Notes Start: 10/25/21 13:28 Freq: Status: Active Protocol: Activity Type Activity Date Activity User E-Sign Co-Sign Detail Recorded Client Recorded Date Recorded By Document 10/25/21 14:02 RICH [id number] 10/25/21 14:07 RICH 10/25/21 14:02 Wound Center Nurse 2 -Time 14:02 -Correct Patient Yes -Correct Side, Site, Position Yes -Correct Procedure Yes -Procedure Performed Yes -Type of Procedure Debridement -Clinical Debridement Subcutaneous -Tissue Removed Subcutaneous -Post Debridement (cm) - Length 3.8 -Post Debridement (cm) - Width 1.2 -Post Debridement (cm) - Depth 0.1 -Total Square (Post) (cm) 4.56 -Area of Debridement (cm) - Length 3.8 -Area of Debridement (cm) - Width 1.2 -Total Square (Area) (cm) 4.56 -Tunneling No -Undermining/Tunneling No -Circular Undermining No -Wound/Ulcer Outcome Not Healed -Ulcer Cleansing Rinsed/ Irrigated with Saline -Foul Odor after Cleansing No -Bioengineered Tissue No -Bleeding Controlled with Pressure -Treatment Response Procedure Tolerated Well -Offloading No -Assistive Device(s) Wheelchair -Debridement - Subq, 1st 20sq cm Yes Pain Scale: 0-10 Numeric Is Patient Pain Free? Yes - Nurse 3 - General Ulcer D/C NN Start: 10/25/21 13:28 Freq: Status: Active Protocol: Activity Type Activity Date Activity User E-Sign Co-Sign Detail Recorded Client Recorded Date Recorded By Document 10/25/21 14:26 RICH [id number] 10/25/21 14:26 RICH 10/25/21 14:26 Wound Care Nurse 3 #1 left Buttock Cluster -Ulcer Cleansing Rinsed/ Irrigated with Saline -Primary Dressing Applied Aquacel Extra -Primary Dressing Covered/Secured with Dry Gauze, Secured with Tape -Aquacel Extra 1 Pain Scale: 0-10 Numeric Is Patient Pain Free? Yes WC - Visit Discharge Discharge Condition Stable Ambulatory Status Wheelchair Transportation Private Auto Accompanied by daughter and home health aid Additional Wound Wound debrided: Coccyx area-not debrided Laterality: Not Applicable Assessment/Plan Assessment/Plan (1) Decubitus ulcer of left buttock, stage 3: CODE(S): L89.323 - Pressure ulcer of left buttock, stage 3 (2) Diabetes mellitus type 2, uncontrolled, without complications: CODE(S): E11.65 - Type 2 diabetes mellitus with hyperglycemia (3) Tobacco use disorder: CODE(S): F17.200 - Nicotine dependence, unspecified, uncomplicated (4) Spinal stenosis, lumbar region without neurogenic claudication: CODE(S): M48.061 - Spinal stenosis, lumbar region without neurogenic claudication (5) Paraplegia: CODE(S): G82.20 - Paraplegia, unspecified (6) Pressure ulcer of coccygeal region: CODE(S): L89.159 - Pressure ulcer of sacral region, unspecified stage PLAN: Patient was seen and evaluated in the wound center today. A subcutaneous debridement was performed on her left medial buttock ulcer cluster. She had a lot of discomfort during this debridement. This ulcer is a Stage III from pressure of sitting for long periods in her wheelchair and sleeping on a regular mattress. Today she now a pressure sore on her coccyx where the skin is pink, intact, fragile looking. It is very dry in appearance. No debridement was performed on this area today. She would benefit from a better cushion for her wheel chair to help with the pressure from sitting. She would also benefit from a low air loss mattress to help prevent pressure while sleeping. Patient encouraged to off load frequently and to avoid sitting in her wheel chair for longer than 2 hours at a time. She is to avoid falling asleep in her wheelchair. Wound care will be Aquacel - Ag covered with gauze daily and as needed. She is to clean the area with soap and water at the time of the dressing change. If she has a BM, she should be careful not to get stool in this area, she may need to wash the area with soap and water and change the dressing after bowel movements. Will have her apply Aquaphore/A&D ointment or some other moisture barrier ointment to her coccyx area that is pink, dry and fragile in appearance. Hopefully this will give her skin more moisture to help any further breakdown. Stressed the importance of off loading and not sitting in her chair too long. She also avoid laying on her back in bed for long periods of time because that is probably contributing to the coccyx area becoming pink and dry. Wound culture obtained on 10/18/21 which were positive for MRSE and Anaerobic cocci. Will start her on Doxycycline and Flagyl. Encourage diet high in protein, low in carbohydrates. Encouraged increase in Vitamin C to 1,000 mg/day. Follow up two weeks. She is to call or come in sooner or go to the ED if she dev elops any issues or concerns.
[2021-11-08 13:18] VITALS: BP 114/48; PULSE 59; TEMP 35.9; BMI 32.3
--- NOTE | 2021-11-08 14:06 | PCM.WC.PN ---
History of Present Illness Date of Service: 11/08/21 Chief Complaint: Sore on left buttocks History of Wound: Patient was referred by her PROFESSOR OF PSYCHIATRY, Dr. Nevarez for pressure ulcers on her left medial buttocks. Patient is wheelchair bound. She has a significant medical history of DM type 2, multiple back surgeries which eventually caused her become a paraplegic. Patient is a very poor historian and keeps falling asleep during her appointment. Patient is not sure how long she has had the pressure sore on her left medial buttocks, she is guessing a few months. She has been placing a cream on this area. She is unsure what cream it is. The ulcer cluster is painful to palpation. She states she sits in her wheelchair often more than 8 hours per day and will sometimes fall asleep in her chair. She does not have a special cushion for her wheelchair. She sleeps in a regular hospital bed, not a low air loss mattress. This week she has an area on her coccyx that is dry and pink. There is no separation of skin yet. Wound care - Wash daily with soap and water. Place moistened Aquacel - Ag top with adaptic and cover with gauze daily. Try to off load as much as possible and try to avoid sitting for long periods of time. For the new red area on her cocccyx will have them start with aquaphore/A&D ointment/or another moisture barrier cream. Also try to off load off her back as much as posible. Wound culture obtained on 10/18/21 which were positive for MRSE and Anaerobic cocci. Will start her on Doxycycline and Flagyl. Progress of Wound: Left buttock cluster ulcer is stable. It is very painful to palpation. The small dry area on her coccyx has improved with use of barrier cream/ointment. Objective Data Objective Data Vital Signs: Vital Signs Temp Pulse BP 96.7 F L 59 L 114/48 L 11/08/21 13:18 11/08/21 13:18 11/08/21 13:18 Weight: 200 lb Body Mass Index (BMI) 32.3 Charges/Coding Procedures Integumentary 111xxx-113xx: 31162 Shila subq tissue 20 sq cm/< Physical Exam Const alert and oriented x3 HEENT normocephalic Resp normal respiratory effort Cardio regular rate Extremity normal capillary refill Skin Wound Narrative: Left medial buttock ulcer cluster is pink, shallow and stable. Neuro CN's II-XII intact bilaterally Debridement Note Debridement Note Wound debrided: medial buttock ulcer cluster Laterality: Left Type of Debridement: Excisional debridement Anesthesia Used: 5% Lidocaine Gel Depth: Down to and including healthy tissue and in the subcutaneous layer Percentage of wound debrided: 100 Instrument Used: 3mm curette Tissue Removed: Non viable tissue and slough Severity: Fat Layer Exposed Amount of bleeding with debridement: Mild Bleeding Controlled with: Pressure Patient tolerated procedure: Patient tolerated procedure well Post-Debridement Measurements and Additional Note: Post-Debridement Measurements/Treatment - Nurse 1 - General Ulcer Assessment Start: 10/25/21 13:28 Freq: Status: Active Protocol: TAISHA Activity Type Activity Date Activity User E-Sign Co-Sign Detail Recorded Client Recorded Date Recorded By Document 10/25/21 13:29 KR [id number] 10/25/21 13:39 KR Document 11/08/21 13:18 DL [id number] 11/08/21 13:26 DL 10/25/21 11/08/21 13:29 13:18 - Today's Visit Information Type of service Follow-up Visit Follow-up Visit (Physician/[employer] (Physician/[employer] ) ) Arrival Mode Wheelchair Wheelchair Accompanied by daughter Patient Identification Verified (Name & Yes Yes ) Height and Weight Body Mass Index (BMI) 32.3 32.3 BMI Classification Obese Obese Vital Signs Temperature (97.8 F-99.1 F) 97.9 F 96.7 F L Temperature Source Temporal Temporal Pulse Rate (60-100) 94 59 L Pulse Location Monitor Monitor Blood Pressure (90/60-120/80) 163/75 H 114/48 L Blood Pressure Mean (mm Hg) 104 70 Source Monitor Monitor Position Semi-Fowlers Sitting Blood Pressure Location Right Arm Right Arm History Since Last Visit- (Skip if this is Patient's initial visit) Have you changed medications since your No No last visit? Any new allergies or adverse reactions No No Had a fall/change in ADL's that may No No increase risk of falls Signs or symptoms of abuse and/or No No neglect since last visit Have you been in the hospital since your No last visit? Has dressing in place as prescribed Yes Yes Has compression in place as prescribed N/A N/A Has offloadiing in place as prescribed N/A N/A Experienced any changes in pain level or No No management Left Footwear Regular Shoe Slipper Right Footwear Regular Shoe Slipper Pain Scale: 0-10 Numeric Is Patient Pain Free? Yes Yes WC - Nurse 1 - General Ulcer Measurement Start: 10/25/21 13:28 Freq: Status: Active Protocol: Activity Type Activity Date Activity User E-Sign Co-Sign Detail Recorded Client Recorded Date Recorded By Document 10/25/21 13:29 KR [id number] 10/25/21 13:39 KR Document 11/08/21 13:18 DL [id number] 11/08/21 13:26 DL 10/25/21 11/08/21 13:29 13:18 Wound Center Nurse 1 #1 left Buttock Cluster -Current Size (cm) - Length 1 1.9 -Current Size (cm) - Width 3 3.4 -Current Size (cm) - Depth 0.1 0.1 -Total Square Cm 3 6.46 -Photo Taken No -Exudate Amt Small Small -Exudate Type Serosanguineous Serosanguineous -Wound Margin Distinct, Distinct, Outline Outline Attached Attached -Granulation Amt Medium (34-66%) Medium (34-66%) -Granulation Quality [place] Red -Necrosis Amt Small (1-33%) Medium (34-66%) -Necrotic Tissue Type Adherent Slough Adherent Slough -Texture (Vivi-wound Skin Appearance) Assessed, Scarring Scarring -Moisture (Vivi-wound Skin Appearance) Assessed,Dry/ No Abnormality Scaly -Color (Vivi-wound Skin Appearance) No Abnormality, Erythema Assessed -Temperature (Vivi-wound Skin No Abnormality No Abnormality Appearance) (Pt Warm) (Pt Warm) -Tenderness on Palpation (Vivi-wound No No Skin Appearance) -Ulcer Cleansing Rinsed/ Rinsed/ Irrigated with Irrigated with Saline Saline -Foul Odor after Cleansing No No -Anesthetic Used 5% Lidocaine 5% Lidocaine Gel Gel WC - Nurse 2 - General Ulcer CM Notes Start: 10/25/21 13:28 Freq: Status: Active Protocol: Activity Type Activity Date Activity User E-Sign Co-Sign Detail Recorded Client Recorded Date Recorded By Document 10/25/21 14:02 KR [id number] 10/25/21 14:07 KR Document 11/08/21 13:33 [id number] 11/08/21 13:40 JF 10/25/21 11/08/21 14:02 13:33 Wound Center Nurse 2 #1 left Buttock Cluster -Time 14:02 13:35 -Correct Patient Yes Yes -Correct Side, Site, Position Yes Yes -Correct Procedure Yes Yes -Procedure Performed Yes Yes -Type of Procedure Debridement Debridement -Clinical Debridement Subcutaneous Subcutaneous -Tissue Removed Subcutaneous Subcutaneous -Post Debridement (cm) - Length 3.8 3.5 -Post Debridement (cm) - Width 1.2 2.0 -Post Debridement (cm) - Depth 0.1 0.1 -Total Square (Post) (cm) 4.56 7.00 -Area of Debridement (cm) - Length 3.8 3.5 -Area of Debridement (cm) - Width 1.2 2.0 -Total Square (Area) (cm) 4.56 7.00 -Tunneling No No -Undermining/Tunneling No No -Circular Undermining No No -Wound/Ulcer Outcome Not Healed Not Healed -Ulcer Cleansing Rinsed/ Rinsed/ Irrigated with Irrigated with Saline Saline -Foul Odor after Cleansing No No -Bioengineered Tissue No No -Bleeding Controlled with Pressure Pressure -Treatment Response Procedure Procedure Tolerated Well Tolerated Well -Offloading No No -Assistive Device(s) Wheelchair -Pressure Reduction Wheelchair cushion, Mattress overlay -Debridement - Subq, 1st 20sq cm Yes Yes Pain Scale: 0-10 Numeric Is Patient Pain Free? Yes Yes WC - Nurse 3 - General Ulcer D/C NN Start: 10/25/21 13:28 Freq: Status: Active Protocol: Activity Type Activity Date Activity User E-Sign Co-Sign Detail Recorded Client Recorded Date Recorded By Document 10/25/21 14:26 RICH [id number] 10/25/21 14:26 KR Document 11/08/21 13:51 RICH [id number] 11/08/21 13:52 KR 10/25/21 11/08/21 14:26 13:51 Wound Care Nurse 3 #1 left Buttock Cluster -Ulcer Cleansing Rinsed/ Rinsed/ Irrigated with Irrigated with Saline Saline -Primary Dressing Applied Aquacel Extra Aquacel AG 2x2, NonAdherent Contact Layer -Other Dressing ABD Pad -Primary Dressing Covered/Secured with Dry Gauze, Dry Gauze, Secured with Secured with Tape Tape -Aquacel Extra 1 -Aquacel AG 2x2 1 Pain Scale: 0-10 Numeric Is Patient Pain Free? Yes Yes WC - Visit Discharge Discharge Condition Stable Stable Ambulatory Status Wheelchair Wheelchair Transportation Private Auto Private Auto Accompanied by daughter and home health aid Assessment/Plan Assessment/Plan (1) Decubitus ulcer of left buttock, stage 3: CODE(S): L89.323 - Pressure ulcer of left buttock, stage 3 (2) Diabetes mellitus type 2, uncontrolled, without complications: CODE(S): E11.65 - Type 2 diabetes mellitus with hyperglycemia (3) Tobacco use disorder: CODE(S): F17.200 - Nicotine dependence, unspecified, uncomplicated (4) Paraplegia: CODE(S): G82.20 - Paraplegia, unspecified PLAN: Patient was seen and evaluated in the wound center today. A subcutaneous debridement was performed on her left medial buttock ulcer cluster. She had a lot of discomfort during this debridement. This ulcer is a Stage III from pressure of sitting for long periods in her wheelchair and sleeping on a regular mattress. The pressure sore on her coccyx is improved and intact using the barrier cream/ointment. She has received an air mattress topper for her bed but she states that it shifts and slides around and makes it difficult for her to transfer into and out of bed. She states she is afraid she will fall out of bed if it remained on her bed, therefore she removed. it. She also states that the wheelchair cushion is hard and very uncomfortable. She has continued to sit/sleep in her wheelchair for long periods of time. Patient encouraged to off load frequently and to avoid sitting in her wheel chair for longer than 2 hours at a time. She is to avoid falling asleep in her wheelchair. Wound care will be moistened Aquacel - Ag topped with adaptic and covered with gauze daily and as needed. She is to clean the area with soap and water at the time of the dressing change. If she has a BM, she should be careful not to get stool in this area, she may need to wash the area with soap and water and change the dressing after bowel movements. Continue to apply Aquaphore/A&D ointment or some other moisture barrier ointment to her coccyx area that is pink, dry and fragile in appearance. Stressed the importance of off loading and not sitting in her chair too long. She also avoid laying on her back in bed for long periods of time because that is probably contributing to the coccyx area becoming pink and dry. Wound culture obtained on 10/18/21 which were positive for MRSE and Anaerobic cocci. Will start her on Doxycycline and Flagyl. Encourage diet high in protein, low in carbohydrates. Encouraged increase in Vitamin C to 1,000 mg/day. Due to her history of diabetes and being a paraplegia, she is at increased risk for delayed wound healing, especially since she does not off load as she should. Follow up two weeks. She is to call or come in sooner or go to the ED if she develops any issues or concerns.
== END 2021-11-20 23:59 | disposition home or self-care (01) ==
LOC: WC 13:15
PROVIDERS: PCP Internal Medicine; Visit Provider Nurse Practitioner Family
DX: L89.323 Pressure ulcer of left buttock, stage 3 (principal); G82.20 Paraplegia, unspecified; E11.65 Type 2 diabetes mellitus with hyperglycemia; F17.200 Nicotine dependence, unspecified, uncomplicated; L89.159 Pressure ulcer of sacral region, unspecified stage; M48.061 Spinal stenosis, lumbar region without neurogenic claudication; Z99.3 Dependence on wheelchair
CPT/HCPCS: 11042

== ENCOUNTER 2022-01-17 13:30 | Outpatient (RCR) | payer MEDICARE, MEDICAID, SELFPAY ==
[2021-11-21 00:44] VITALS: BP 114/48; PULSE 59; TEMP 35.9; BMI 32.3
[2022-01-03 13:09] VITALS: BP 138/90; PULSE 87; RESP 20; TEMP 35.3; BMI 32.3
--- NOTE | 2022-01-03 15:23 | PCM.WC.PN ---
History of Present Illness Date of Service: 01/03/22 Chief Complaint: Sore on left buttocks History of Wound: Patient was referred by her LOW RAW SUGAR CUTTER, Dr. Nevarez for pressure ulcers on her left medial buttocks. Patient is wheelchair bound. She has a significant medical history of DM type 2, multiple back surgeries which eventually caused her become a paraplegic. Patient is a very poor historian and keeps falling asleep during her appointment. Patient is not sure how long she has had the pressure sore on her left medial buttocks, she is guessing a few months. She has been placing a cream on this area. She is unsure what cream it is. The ulcer cluster is painful to palpation. She states she sits in her wheelchair often more than 8 hours per day and will sometimes fall asleep in her chair. She does not have a special cushion for her wheelchair. She sleeps in a regular hospital bed, not a low air loss mattress. This week she has an area on her coccyx that is dry and pink. There is no separation of skin yet. Wound care - Wash daily with soap and water. Place Lyudmila covered with silicone border dressing (such as excel SAH) daily. Try to off load as much as possible and try to avoid sitting for long periods of time. Wound culture obtained on 10/18/21 which were positive for MRSE and Anaerobic cocci. Will start her on Doxycycline and Flagyl. Progress of Wound: Left buttocks ulcer has improved, it appears core drier than it has in the past. Objective Data Objective Data Vital Signs: Vital Signs Temp Pulse Resp BP 95.5 F L 87 20 H 138/90 H 01/03/22 13:09 01/03/22 13:09 01/03/22 13:09 01/03/22 13:09 Weight: 200 lb Body Mass Index (BMI) 32.3 Charges/Coding Procedures Integumentary 111xxx-113xx: [id number] Shila subq tissue 20 sq cm/< Physical Exam Const alert and oriented x3 HEENT normocephalic Resp normal respiratory effort Cardio regular rate Extremity normal capillary refill Skin Wound Narrative: Left medial buttock ulcer is pink and starting to look too dry. Neuro CN's II-XII intact bilaterally Debridement Note Debridement Note Wound debrided: Buttock ulcer Laterality: Left Type of Debridement: Excisional debridement Depth: Down to and including healthy tissue and in the subcutaneous layer Percentage of wound debrided: 100 Instrument Used: 3mm curette Tissue Removed: Nonviable tissue and slough Severity: Fat Layer Exposed Amount of bleeding with debridement: Mild Bleeding Controlled with: Pressure and Compression and gauze Patient tolerated procedure: Patient tolerated procedure well Post-Debridement Measurements and Additional Note: Post-Debridement Measurements/Treatment SCOTTY - Nurse 1 - General Ulcer Assessment Start: 01/03/22 13:09 Freq: Status: Active Protocol: TAISHA Activity Type Activity Date Activity User E-Sign Co-Sign Detail Recorded Client Recorded Date Recorded By Document 01/03/22 13:09 ELKE [id number] 01/03/22 13:18 DL 01/03/22 13:09 WC - Today's Visit Information Type of service Follow-up Visit (Physician/PRESS ASSISTANT ) Arrival Mode Wheelchair Transfer Assistance Manual Transfer Assist (Other) x1 Patient Identification Verified (Name & Yes ) Patient Requires Transmission-Based No Precautions Finger Stick Blood Sugar(mg/dl) (if not checked indicated): Blood Sugar Stated by Patient Height and Weight Body Mass Index (BMI) 32.3 BMI Classification Obese Vital Signs Temperature (97.8 F-99.1 F) 95.5 F L Temperature Source Temporal Pulse Rate (60-100) 87 Pulse Location Monitor Respiratory Rate (12-18) 20 H Respiratory rate source Observation Blood Pressure (90/60-120/80) 138/90 H Blood Pressure Mean (mm Hg) 106 Source Monitor History Since Last Visit- (Skip if this is Patient's initial visit) Have you changed medications since your No last visit? Any new allergies or adverse reactions No Had a fall/change in ADL's that may No increase risk of falls Signs or symptoms of abuse and/or No neglect since last visit Have you been in the hospital since your No last visit? Has dressing in place as prescribed Yes Has compression in place as prescribed N/A Has offloadiing in place as prescribed Yes Experienced any changes in pain level or No management Pain Scale: 0-10 Numeric Is Patient Pain Free? Yes SCOTTY Cartwright Nurse 1 - General Ulcer Measurement Start: 01/03/22 13:09 Freq: Status: Active Protocol: Activity Type Activity Date Activity User E-Sign Co-Sign Detail Recorded Client Recorded Date Recorded By Document 01/03/22 13:09 DL [id number] 01/03/22 13:18 DL 01/03/22 13:09 Wound Center Nurse 1 #1 left Buttock Cluster -Current Size (cm) - Length 3.1 -Current Size (cm) - Width 1.3 -Current Size (cm) - Depth 0.1 -Total Square Cm 4.03 -Photo Taken Yes -Exudate Amt Medium -Exudate Type Serosanguineous -Wound Margin Distinct, Outline Attached -Granulation Amt None Present (0 %) -Necrosis Amt Large (67-100%) -Necrotic Tissue Type Adherent Slough -Structure Exposed N/A -Texture (Vivi-wound Skin Appearance) Scarring -Moisture (Vivi-wound Skin Appearance) No Abnormality -Color (Vivi-wound Skin Appearance) Erythema -Temperature (Vivi-wound Skin No Abnormality Appearance) (Pt Warm) -Tenderness on Palpation (Vivi-wound No Skin Appearance) -Ulcer Cleansing Rinsed/ Irrigated with Saline -Foul Odor after Cleansing No -Anesthetic Used 5% Lidocaine Gel WC - Nurse 2 - General Ulcer CM Notes Start: 01/03/22 13:09 Freq: Status: Active Protocol: Activity Type Activity Date Activity User E-Sign Co-Sign Detail Recorded Client Recorded Date Recorded By Document 01/03/22 13:44 [id number] 01/03/22 13:46 ELLIE 01/03/22 13:44 Wound Center Nurse 2 -Time 13:44 -Correct Patient Yes -Correct Side, Site, Position Yes -Correct Procedure Yes -Procedure Performed Yes -Type of Procedure Debridement -Clinical Debridement Subcutaneous -Tissue Removed Subcutaneous -Post Debridement (cm) - Length 3.3 -Post Debridement (cm) - Width 1.2 -Post Debridement (cm) - Depth 0.1 -Total Square (Post) (cm) 3.96 -Area of Debridement (cm) - Length 3.3 -Area of Debridement (cm) - Width 1.2 -Total Square (Area) (cm) 3.96 -Tunneling No -Undermining/Tunneling No -Circular Undermining No -Wound/Ulcer Outcome Not Healed -Ulcer Cleansing Rinsed/ Irrigated with Saline -Foul Odor after Cleansing No -Bioengineered Tissue No -Bleeding Controlled with Pressure -Treatment Response Procedure Tolerated Well -Offloading No -Debridement - Subq, 1st 20sq cm Yes Pain Scale: 0-10 Numeric Is Patient Pain Free? Yes WC - Nurse 3 - General Ulcer D/C NN Start: 01/03/22 13:09 Freq: Status: Active Protocol: Activity Type Activity Date Activity User E-Sign Co-Sign Detail Recorded Client Recorded Date Recorded By Document 01/03/22 14:40 RICH [id number] 01/03/22 14:42 RICH 01/03/22 14:40 Wound Care Nurse 3 #1 left Buttock Cluster -Ulcer Cleansing Rinsed/ Irrigated with Saline -Primary Dressing Applied Mepilex Border, Promogran Lyudmila Matter -Mepilex Border 1 -Promogran Lyudmila Matter 1 Pain Scale: 0-10 Numeric Is Patient Pain Free? Yes WC - Visit Discharge Discharge Condition Stable Ambulatory Status Wheelchair Transportation Private Auto Accompanied by daughter Assessment/Plan Assessment/Plan (1) Decubitus ulcer of left buttock, stage 3: CODE(S): L89.323 - Pressure ulcer of left buttock, stage 3 (2) Diabetes mellitus type 2, uncontrolled, without complications: CODE(S): E11.65 - Type 2 diabetes mellitus with hyperglycemia (3) Tobacco use disorder: CODE(S): F17.200 - Nicotine dependence, unspecified, uncomplicated (4) Paraplegia: CODE(S): G82.20 - Paraplegia, unspecified PLAN: Patient was seen and evaluated in the wound center today. A subcutaneous debridement was performed on her left medial buttock ulcer cluster. She had a lot of discomfort during this debridement. This ulcer is a Stage III from pressure of sitting for long periods in her wheelchair and sleeping on a regular mattress. The pressure sore on her coccyx is improved and intact using the barrier cream/ointment. She has received an air mattress topper for her bed but she states that it shifts and slides around and makes it difficult for her to transfer into and out of bed. She states she is afraid she will fall out of bed if it remained on her bed, therefore she removed. it. She also states that the wheelchair cushion is hard and very uncomfortable. She has continued to sit/sleep in her wheelchair for long periods of time. Patient encouraged to off load frequently and to avoid sitting in her wheel chair for longer than 2 hours at a time. She is to avoid falling asleep in her wheelchair. Wound care - Wash daily with soap and water. Place Lyudmila covered with silicone border dressing (such as excel SAH) daily. Stressed the importance of off loading and not sitting in her chair too long. She also avoid laying on her back in bed for long periods of time because that is probably contributing to the coccyx area becoming pink and dry. Wound culture obtained on 10/18/21 which were positive for MRSE and Anaerobic cocci. Will start her on Doxycycline and Flagyl. Encourage diet high in protein, low in carbohydrates. Encouraged increase in Vitamin C to 1,000 mg/day. Due to her history of diabetes and being a paraplegia, she is at increased risk for delayed wound healing, especially since she does not off load as she should. Follow up two weeks. She is to call or come in sooner or go to the ED if she develops any issues or concerns.
[2022-01-17 13:03] VITALS: RESP 20; TEMP 35.4; BMI 32.3
--- NOTE | 2022-01-17 13:27 | PCM.WC.PN ---
History of Present Illness Date of Service: 01/17/22 Chief Complaint: Sore on left buttocks History of Wound: Patient was referred by her TOPOLOGY TEACHER, Dr. Nevarez for pressure ulcers on her left medial buttocks. Patient is wheelchair bound. She has a significant medical history of DM type 2, multiple back surgeries which eventually caused her become a paraplegic. Patient is a very poor historian and keeps falling asleep during her appointment. Patient is not sure how long she has had the pressure sore on her left medial buttocks, she is guessing a few months. She has been placing a cream on this area. She is unsure what cream it is. The ulcer cluster is painful to palpation. She states she sits in her wheelchair often more than 8 hours per day and will sometimes fall asleep in her chair. She does not have a special cushion for her wheelchair. She sleeps in a regular hospital bed, not a low air loss mattress. This week she has an area on her coccyx that is dry and pink. There is no separation of skin yet. Wound care - Wash daily with soap and water. Place Lyudmila covered with silicone border dressing (such as excel SAP) daily. Try to off load as much as possible and try to avoid sitting for long periods of time. Wound culture obtained on 10/18/21 which were positive for MRSE and Anaerobic cocci. Will start her on Doxycycline and Flagyl. Progress of Wound: Left buttocks ulcer has improved and is smaller in size. Objective Data Objective Data Vital Signs: Vital Signs Temp Pulse Resp BP 95.7 F L 87 20 H 138/90 H 01/17/22 13:03 01/03/22 13:09 01/17/22 13:03 01/03/22 13:09 Weight: 200 lb Body Mass Index (BMI) 32.3 Charges/Coding Procedures Integumentary 111xxx-113xx: 52413 Shila subq tissue 20 sq cm/< Physical Exam Const alert and oriented x3 HEENT normocephalic Resp normal respiratory effort Cardio regular rate Extremity normal capillary refill Skin Wound Narrative: Left medial buttock ulcer is pink and smaller in size. Neuro CN's II-XII intact bilaterally Psych Appearance: well kempt Debridement Note Debridement Note Wound debrided: Buttock ulcer Laterality: Left Type of Debridement: Excisional debridement Depth: Down to and including healthy tissue and in the subcutaneous layer Percentage of wound debrided: 100 Instrument Used: 3mm curette Tissue Removed: Nonviable tissue and slough Severity: Fat Layer Exposed Amount of bleeding with debridement: Mild Bleeding Controlled with: Pressure and Compression and gauze Patient tolerated procedure: Patient tolerated procedure well Post-Debridement Measurements and Additional Note: Post-Debridement Measurements/Treatment SCOTTY - Nurse 1 - General Ulcer Assessment Start: 01/03/22 13:09 Freq: Status: Active Protocol: TAISHA Activity Type Activity Date Activity User E-sign Co-sign Detail Recorded Client Recorded Date Recorded By Document 01/03/22 13:09 DL [id number] 01/03/22 13:18 DL Document 01/17/22 13:03 DL [id number] 01/17/22 13:09 DL 01/03/22 01/17/22 13:09 13:03 SCOTTY - Today's Visit Information Type of service Follow-up Visit Follow-up Visit (Physician/ACCOUNT RESOLUTION SPECIALIST (Physician/ACCOUNT RESOLUTION SPECIALIST ) ) Arrival Mode Wheelchair Wheelchair Transfer Assistance Manual Manual Transfer Assist (Other) x1 x2 Patient Identification Verified (Name & Yes Yes ) Patient Requires Transmission-Based No No Precautions Finger Stick Blood Sugar(mg/dl) (if not checked indicated): Blood Sugar Stated by Patient Height and Weight Body Mass Index (BMI) 32.3 32.3 BMI Classification Obese Obese Vital Signs Temperature (97.8 F-99.1 F) 95.5 F L 95.7 F L Temperature Source Temporal Temporal Pulse Rate (60-100) 87 Pulse Location Monitor Respiratory Rate (12-18) 20 H 20 H Respiratory rate source Observation Observation Blood Pressure (90/60-120/80) 138/90 H Blood Pressure Mean (mm Hg) 106 Source Monitor History Since Last Visit- (Skip if this is Patient's initial visit) Have you changed medications since your No No last visit? Any new allergies or adverse reactions No No Had a fall/change in ADL's that may No No increase risk of falls Signs or symptoms of abuse and/or No No neglect since last visit Have you been in the hospital since your No No last visit? Has dressing in place as prescribed Yes Yes Has compression in place as prescribed N/A N/A Has offloadiing in place as prescribed Yes N/A Experienced any changes in pain level or No No management Left Footwear Regular Shoe Right Footwear Regular Shoe Pain Scale: 0-10 Numeric Is Patient Pain Free? Yes No WC - Nurse 1 - General Ulcer Measurement Start: 01/03/22 13:09 Freq: Status: Active Protocol: Activity Type Activity Date Activity User E-sign Co-sign Detail Recorded Client Recorded Date Recorded By Document 01/03/22 13:09 DL [id number] 01/03/22 13:18 DL Document 01/17/22 13:03 DL [id number] 01/17/22 13:09 DL 01/03/22 01/17/22 13:09 13:03 Wound Center Nurse 1 #1 left Buttock Cluster -Combined with other wound No -Current Size (cm) - Length 3.1 2.7 -Current Size (cm) - Width 1.3 1 -Current Size (cm) - Depth 0.1 0.1 -Total Square Cm 4.03 2.7 -Photo Taken Yes No -Epithelialization Medium 34-66% -Tunneling No -Undermining/Tunneling No -Circular Undermining No -Change in Wound Grade/Stage No -Exudate Amt Medium Small -Exudate Type Serosanguineous Serosanguineous -Wound Margin Distinct, Distinct, Outline Outline Attached Attached -Granulation Amt None Present (0 Medium (34-66%) %) -Granulation Quality Pale,[place] -Slough/Fibrin Yes -Necrosis Amt Large (67-100%) Small (1-33%) -Necrotic Tissue Type Adherent Slough Adherent Slough -Structure Exposed N/A N/A -Texture (Vivi-wound Skin Appearance) Scarring No Abnormality, Assessed -Moisture (Vivi-wound Skin Appearance) No Abnormality No Abnormality, Assessed -Color (Vivi-wound Skin Appearance) Erythema No Abnormality, Assessed -Temperature (Vivi-wound Skin No Abnormality No Abnormality Appearance) (Pt Warm) (Pt Warm) -Tenderness on Palpation (Vivi-wound No No Skin Appearance) -Ulcer Cleansing Rinsed/ Rinsed/ Irrigated with Irrigated with Saline Saline -Foul Odor after Cleansing No No -Anesthetic Used 5% Lidocaine 4% Lidocaine Gel Solution,5% Lidocaine Gel WC - Nurse 2 - General Ulcer CM Notes Start: 01/03/22 13:09 Freq: Status: Active Protocol: Activity Type Activity Date Activity User E-sign Co-sign Detail Recorded Client Recorded Date Recorded By Document 01/03/22 13:44 [id number] 01/03/22 13:46 ELLIE 01/03/22 13:44 Wound Center Nurse 2 -Time 13:44 -Correct Patient Yes -Correct Side, Site, Position Yes -Correct Procedure Yes -Procedure Performed Yes -Type of Procedure Debridement -Clinical Debridement Subcutaneous -Tissue Removed Subcutaneous -Post Debridement (cm) - Length 3.3 -Post Debridement (cm) - Width 1.2 -Post Debridement (cm) - Depth 0.1 -Total Square (Post) (cm) 3.96 -Area of Debridement (cm) - Length 3.3 -Area of Debridement (cm) - Width 1.2 -Total Square (Area) (cm) 3.96 -Tunneling No -Undermining/Tunneling No -Circular Undermining No -Wound/Ulcer Outcome Not Healed -Ulcer Cleansing Rinsed/ Irrigated with Saline -Foul Odor after Cleansing No -Bioengineered Tissue No -Bleeding Controlled with Pressure -Treatment Response Procedure Tolerated Well -Offloading No -Debridement - Subq, 1st 20sq cm Yes Pain Scale: 0-10 Numeric Is Patient Pain Free? Yes WC - Nurse 3 - General Ulcer D/C NN Start: 01/03/22 13:09 Freq: Status: Active Protocol: Activity Type Activity Date Activity User E-sign Co-sign Detail Recorded Client Recorded Date Recorded By Document 01/03/22 14:40 RICH [id number] 01/03/22 14:42 RICH 01/03/22 14:40 Wound Care Nurse 3 #1 left Buttock Cluster -Ulcer Cleansing Rinsed/ Irrigated with Saline -Primary Dressing Applied Mepilex Border, Promogran Lyudmila Matter -Mepilex Border 1 -Promogran Lyudmila Matter 1 Pain Scale: 0-10 Numeric Is Patient Pain Free? Yes WC - Visit Discharge Discharge Condition Stable Ambulatory Status Wheelchair Transportation Private Auto Accompanied by daughter Assessment/Plan Assessment/Plan (1) Decubitus ulcer of left buttock, stage 3: CODE(S): L89.323 - Pressure ulcer of left buttock, stage 3 (2) Diabetes mellitus type 2, uncontrolled, without complications: CODE(S): E11.65 - Type 2 diabetes mellitus with hyperglycemia (3) Tobacco use disorder: CODE(S): F17.200 - Nicotine dependence, unspecified, uncomplicated (4) Paraplegia: CODE(S): G82.20 - Paraplegia, unspecified PLAN: Plan Patient was seen and evaluated in the wound center today. A subcutaneous debridement was performed on her left medial buttock ulcer cluster. She had a lot of discomfort during this debridement. She states that the wrong cushion for her wheelchair was ordered, she states it is too thin. She has continued to sit/sleep in her wheelchair for long periods of time. Patient encouraged to off load frequently and to avoid sitting in her wheel chair for longer than 2 hours at a time. She is to avoid falling asleep in her wheelchair. Wound care - Wash daily with soap and water. Place Lyudmila covered with silicone border dressing (such as excel SAP) daily. Stressed the importance of off loading and not sitting in her chair too long. She also avoid laying on her back in bed for long periods of time because that is probably contributing to the coccyx area becoming pink and dry. Wound culture obtained on 10/18/21 which were positive for MRSE and Anaerobic cocci. Will start her on Doxycycline and Flagyl. Encourage diet high in protein, low in carbohydrates. Encouraged increase in Vitamin C to 1,000 mg/day. Due to her history of diabetes and being a paraplegia, she is at increased risk for delayed wound healing, especially since she does not off load as she should. Follow up three weeks. She is to call or come in sooner or go to the ED if she develops any issues or concerns.
== END 2022-01-20 23:59 | disposition home or self-care (01) ==
LOC: WC 13:30
PROVIDERS: PCP Internal Medicine; Visit Provider Nurse Practitioner Family
DX: L89.323 Pressure ulcer of left buttock, stage 3 (principal); G82.20 Paraplegia, unspecified; E11.65 Type 2 diabetes mellitus with hyperglycemia; F17.200 Nicotine dependence, unspecified, uncomplicated; Z99.3 Dependence on wheelchair
CPT/HCPCS: 11042

== ENCOUNTER 2022-02-07 13:37 | Outpatient (RCR) | payer MEDICARE, MEDICAID, SELFPAY ==
[2022-01-21 00:08] VITALS: BP 138/90; PULSE 87; RESP 20; TEMP 35.4; BMI 32.3
[2022-02-07 13:44] VITALS: BP 94/48; PULSE 81; RESP 18; TEMP 35.8; BMI 32.3
--- NOTE | 2022-02-07 14:35 | PN.PCM_ITS ---
History of Present Illness Date of Service: 02/07/22 Chief Complaint: Sore on left buttocks History of Wound: Patient was referred by her HEALTH TECH, Dr. Nevarez for pressure ulcers on her left medial buttocks. Patient is wheelchair bound. She has a significant medical history of DM type 2, multiple back surgeries which eventually caused her become a paraplegic. Patient is a very poor historian and keeps falling asleep during her appointment. Patient is not sure how long she has had the pressure sore on her left medial buttocks, she is guessing a few months. She has been placing a cream on this area. She is unsure what cream it is. The ulcer cluster is painful to palpation. She states she sits in her wheelchair often more than 8 hours per day and will sometimes fall asleep in her chair. She does not have a special cushion for her wheelchair. She sleeps in a regular hospital bed, not a low air loss mattress. This week she has an area on her coccyx that is dry and pink. There is no separation of skin yet. Wound care - Wash daily with soap and water. Place Lyudmila covered with silicone border dressing (such as excel SAP) daily. Try to off load as much as possible and try to avoid sitting for long periods of time. Wound culture obtained on 10/18/21 which were positive for MRSE and Anaerobic cocci. Completed Doxycycline and Flagyl. Progress of Wound: Left medial buttock ulcer has not improved. It is larger in size. She states that she sits in her wheel chair for long periods of time and she is not off loading. Objective Data Objective Data Vital Signs: Vital Signs Temp Pulse Resp BP 96.4 F L 81 18 94/48 L 02/07/22 13:44 02/07/22 13:44 02/07/22 13:44 02/07/22 13:44 Weight: 200 lb Body Mass Index (BMI) 32.3 Charges/Coding Procedures Integumentary 111xxx-113xx: 26172 Shila subq tissue 20 sq cm/< Physical Exam Const alert and oriented x3 HEENT normocephalic Resp normal respiratory effort Cardio regular rate Extremity normal capillary refill Skin Wound Narrative: Left medial buttock ulcer is pink but is larger in size and painful to palpation. Neuro CN's II-XII intact bilaterally Psych Appearance: well kempt Debridement Note Debridement Note Wound debrided: Buttock ulcer Laterality: Left Type of Debridement: Excisional debridement Depth: Down to and including healthy tissue and in the subcutaneous layer Percentage of wound debrided: 100 Instrument Used: 5mm curette Tissue Removed: Nonviable tissue and slough Severity: Fat Layer Exposed Amount of bleeding with debridement: Mild Bleeding Controlled with: Pressure and Compression and gauze Patient tolerated procedure: Patient tolerated procedure well Post-Debridement Measurements and Additional Note: Post-Debridement Measurements/Treatment SCOTTY - Nurse 1 - General Ulcer Assessment Start: 02/07/22 13:44 Freq: Status: Active Protocol: TAISHA Activity Type Activity Date Activity User E-sign Co-sign Detail Recorded Client Recorded Date Recorded By Document 02/07/22 13:44 DL [id number] 02/07/22 13:49 DL 02/07/22 13:44 WC - Today's Visit Information Type of service Follow-up Visit (Physician/CLINICAL BIOCHEMICAL GENETICIST ) Arrival Mode Wheelchair Transfer Assistance Manual Transfer Assist (Other) x1 Patient Identification Verified (Name & Yes ) Patient Requires Transmission-Based No Precautions Height and Weight Body Mass Index (BMI) 32.3 BMI Classification Obese Vital Signs Temperature (97.8 F-99.1 F) 96.4 F L Temperature Source Temporal Pulse Rate (60-100) 81 [address]ulse [address] Monitor Respiratory Rate (12-18) 18 Respiratory rate source Observation Blood Pressure (90/60-120/80) 94/48 L Blood Pressure Mean (mm Hg) 63 Source Monitor History Since Last Visit- (Skip if this is Patient's initial visit) Have you changed medications since your No last visit? Any new allergies or adverse reactions No Had a fall/change in ADL's that may No increase risk of falls Signs or symptoms of abuse and/or No neglect since last visit Have you been in the hospital since your No last visit? Has dressing in place as prescribed Yes Has compression in place as prescribed N/A Has offloadiing in place as prescribed Yes Experienced any changes in pain level or No management Pain Scale: 0-10 Numeric Is Patient Pain Free? Yes SCOTTY - Nurse 1 - General Ulcer Measurement Start: 02/07/22 13:44 Freq: Status: Active Protocol: Activity Type Activity Date Activity User E-sign Co-sign Detail Recorded Client Recorded Date Recorded By Document 02/07/22 13:44 DL [id number] 02/07/22 13:49 DL 02/07/22 13:44 Wound Center Nurse 1 #1 left Buttock Cluster -Current Size (cm) - Length 3.5 -Current Size (cm) - Width 2 -Current Size (cm) - Depth 0.1 -Total Square Cm 7.0 -Photo Taken No -Exudate Amt Small -Exudate Type Serosanguineous -Wound Margin Distinct, Outline Attached -Granulation Amt Medium (34-66%) -Granulation Quality Pale,[place] -Necrosis Amt Medium (34-66%) -Necrotic Tissue Type Adherent Slough -Structure Exposed N/A -Texture (Vivi-wound Skin Appearance) Scarring -Moisture (Vivi-wound Skin Appearance) No Abnormality -Color (Vivi-wound Skin Appearance) No Abnormality -Temperature (Vivi-wound Skin No Abnormality Appearance) (Pt Warm) -Tenderness on Palpation (Vivi-wound Yes Skin Appearance) -Ulcer Cleansing Rinsed/ Irrigated with Saline -Foul Odor after Cleansing No -Anesthetic Used 5% Lidocaine Gel WC - Nurse 2 - General Ulcer CM Notes Start: 02/07/22 13:44 Freq: Status: Active Protocol: Activity Type Activity Date Activity User E-sign Co-sign Detail Recorded Client Recorded Date Recorded By Document 02/07/22 14:09 [id number] 02/07/22 14:14 02/07/22 14:09 Wound Center Nurse 2 -Time 14:10 -Correct Patient Yes -Correct Side, Site, Position Yes -Correct Procedure Yes -Procedure Performed Yes -Type of Procedure Debridement -Clinical Debridement Subcutaneous -Tissue Removed Subcutaneous -Post Debridement (cm) - Length 4.4 -Post Debridement (cm) - Width 2.0 -Post Debridement (cm) - Depth 0.2 -Total Square (Post) (cm) 8.80 -Area of Debridement (cm) - Length 4.4 -Area of Debridement (cm) - Width 2.0 -Total Square (Area) (cm) 8.80 -Tunneling No -Undermining/Tunneling No -Circular Undermining No -Wound/Ulcer Outcome Not Healed -Ulcer Cleansing Rinsed/ Irrigated with Saline -Foul Odor after Cleansing No -Bioengineered Tissue No -Bleeding Controlled with Pressure -Treatment Response Procedure Tolerated Well -Offloading No -Pressure Reduction Wheelchair cushion -Debridement - Subq, 1st 20sq cm Yes Pain Scale: 0-10 Numeric Is Patient Pain Free? Yes Assessment/Plan Assessment/Plan (1) Decubitus ulcer of left buttock, stage 3: CODE(S): L89.323 - Pressure ulcer of left buttock, stage 3 (2) Diabetes mellitus type 2, uncontrolled, without complications: CODE(S): E11.65 - Type 2 diabetes mellitus with hyperglycemia (3) Tobacco use disorder: CODE(S): F17.200 - Nicotine dependence, unspecified, uncomplicated (4) Paraplegia: CODE(S): G82.20 - Paraplegia, unspecified PLAN: Plan Patient was seen and evaluated in the wound center today. A subcutaneous debridement was performed on her left medial buttock ulcer cluster. She had a lot of discomfort during this debridement. She has continued to sit/sleep in her wheelchair for long periods of time. Patient encouraged to off load frequently and to avoid sitting in her wheel chair for longer than 2 hours at a time. She is to avoid falling asleep in her wheelchair. Wound care - Wash daily with soap and water. Collagen hydrogel with silicone border dressing (such as excel SAP) daily. Stressed the importance of off loading and not sitting in her chair too long. She also avoid laying on her back in bed for long periods of time because that is probably contributing to the coccyx area becoming pink and dry. Wound culture obtained on 10/18/21 which were positive for MRSE and Anaerobic cocci. Will start her on Doxycycline and Flagyl. Encourage diet high in protein, low in carbohydrates. Encouraged increase in Vitamin C to 1,000 mg/day. Due to her history of diabetes and being a paraplegia, she is at increased risk for delayed wound healing, especially since she does not off load as she should. Follow up two weeks. She is to call or come in sooner or go to the ED if she develops any issues or concerns.
== END 2022-02-20 23:59 | disposition home or self-care (01) ==
LOC: WC 13:37
PROVIDERS: PCP Internal Medicine; Visit Provider Nurse Practitioner Family
DX: E11.622 Type 2 diabetes mellitus with other skin ulcer (principal); L89.323 Pressure ulcer of left buttock, stage 3; G82.20 Paraplegia, unspecified; E11.65 Type 2 diabetes mellitus with hyperglycemia; Z99.3 Dependence on wheelchair; F17.200 Nicotine dependence, unspecified, uncomplicated
CPT/HCPCS: 11042

== ENCOUNTER 2022-03-21 13:30 | Outpatient (RCR) | payer MEDICARE, MEDICAID, SELFPAY ==
[2022-02-21 00:10] VITALS: BP 94/48; PULSE 81; RESP 18; TEMP 35.8; BMI 32.3
[2022-02-21 13:53] VITALS: BP 122/70; PULSE 89; RESP 20; TEMP 36.5; BMI 32.3
--- NOTE | 2022-02-21 15:30 | PCM.WC.PN ---
History of Present Illness Date of Service: 02/21/22 Chief Complaint: Sore on left buttocks History of Wound: Patient was referred by her LIGHT ARMORED VEHICLE OFFICER, Dr. Nevarez for pressure ulcers on her left medial buttocks. Patient is wheelchair bound. She has a significant medical history of DM type 2, multiple back surgeries which eventually caused her become a paraplegic. Patient is a very poor historian and keeps falling asleep during her appointment. Patient is not sure how long she has had the pressure sore on her left medial buttocks, she is guessing a few months. She has been placing a cream on this area. She is unsure what cream it is. The ulcer cluster is painful to palpation. She states she sits in her wheelchair often more than 8 hours per day and will sometimes fall asleep in her chair. She does not have a special cushion for her wheelchair. She sleeps in a regular hospital bed, not a low air loss mattress. This week she has an area on her coccyx that is dry and pink. There is no separation of skin yet. Wound care - Wash daily with soap and water. Place Aquacel-Ag covered with silicone border dressing (such as excel SAP) daily. Try to off load as much as possible and try to avoid sitting for long periods of time. Wound culture obtained today 02/21/22 due to increased pain and drainage. Wound culture obtained on 10/18/21 which were positive for MRSE and Anaerobic cocci. Completed Doxycycline and Flagyl. Progress of Wound: Left buttock ulcer is stable. It is very painful. She continues to not off load as she should. The ulcer is causing her increased pain. Wound culture obtained today. Objective Data Objective Data Vital Signs: Vital Signs Temp Pulse Resp BP 97.7 F L 89 20 H 122/70 H 02/21/22 13:53 02/21/22 13:53 02/21/22 13:53 02/21/22 13:53 Weight: 200 lb Body Mass Index (BMI) 32.3 Charges/Coding Procedures Integumentary 111xxx-113xx: 51782 Shila subq tissue 20 sq cm/< Physical Exam Const alert and oriented x3 HEENT normocephalic Resp normal respiratory effort Cardio regular rate Extremity normal capillary refill Skin Wound Narrative: Left medial buttock ulcer is pink, stable, and painful to palpation. Neuro CN's II-XII intact bilaterally Psych Appearance: well kempt Debridement Note Debridement Note Wound debrided: Buttock ulcer Laterality: Left Type of Debridement: Excisional debridement Depth: Down to and including healthy tissue and in the subcutaneous layer Percentage of wound debrided: 100 Instrument Used: 5mm curette Tissue Removed: Devitalized tissue and slough Severity: Fat Layer Exposed Amount of bleeding with debridement: Mild Bleeding Controlled with: Pressure and Compression and gauze Patient tolerated procedure: Patient tolerated procedure well Post-Debridement Measurements and Additional Note: Post-Debridement Measurements/Treatment - Nurse 1 - General Ulcer Assessment Start: 02/21/22 13:49 Freq: Status: Active Protocol: TAISHA Activity Type Activity Date Activity User E-sign Co-sign Detail Recorded Client Recorded Date Recorded By Document 02/21/22 13:53 DL [id number] 02/21/22 13:59 DL 02/21/22 13:53 WC - Today's Visit Information Type of service Follow-up Visit (Physician/TRAILER MECHANIC ) Arrival Mode Wheelchair Transfer Assistance Manual Transfer Assist (Other) x2 Patient Identification Verified (Name & Yes ) Height and Weight Body Mass Index (BMI) 32.3 BMI Classification Obese Vital Signs Temperature (97.8 F-99.1 F) 97.7 F L Temperature Source Temporal Pulse Rate (60-100) 89 Pulse Location Monitor Respiratory Rate (12-18) 20 H Respiratory rate source Observation Blood Pressure (90/60-120/80) 122/70 H Blood Pressure Mean (mm Hg) 87 Source Monitor History Since Last Visit- (Skip if this is Patient's initial visit) Have you changed medications since your No last visit? Any new allergies or adverse reactions No Had a fall/change in ADL's that may No increase risk of falls Signs or symptoms of abuse and/or No neglect since last visit Have you been in the hospital since your No last visit? Has dressing in place as prescribed Yes Has compression in place as prescribed N/A Has offloadiing in place as prescribed Yes Experienced any changes in pain level or No management Pain Scale: 0-10 Numeric Is Patient Pain Free? Yes - Nurse 1 - General Ulcer Measurement Start: 02/21/22 13:49 Freq: Status: Active Protocol: Activity Type Activity Date Activity User E-sign Co-sign Detail Recorded Client Recorded Date Recorded By Document 02/21/22 13:53 ELKE [id number] 02/21/22 13:59 DL 02/21/22 13:53 Wound Center Nurse 1 #1 left Buttock Cluster -Combined with (Name of Wound-Exactly 3.8 as it is documented) -Current Size (cm) - Length 1 -Current Size (cm) - Width 0.1 -Total Square Cm 0.1 -Photo Taken No -Exudate Amt Medium -Exudate Type Serosanguineous -Wound Margin Distinct, Outline Attached -Granulation Amt None Present (0 %) -Necrosis Amt Large (67-100%) -Necrotic Tissue Type Adherent Slough -Structure Exposed N/A -Texture (Vivi-wound Skin Appearance) No Abnormality -Moisture (Vivi-wound Skin Appearance) Maceration -Color (Vivi-wound Skin Appearance) No Abnormality -Temperature (Vivi-wound Skin No Abnormality Appearance) (Pt Warm) -Tenderness on Palpation (Vivi-wound No Skin Appearance) -Ulcer Cleansing Rinsed/ Irrigated with Saline -Foul Odor after Cleansing No -Anesthetic Used 5% Lidocaine Gel WC - Nurse 2 - General Ulcer CM Notes Start: 02/21/22 13:49 Freq: Status: Active Protocol: Activity Type Activity Date Activity User E-sign Co-sign Detail Recorded Client Recorded Date Recorded By Document 02/21/22 14:24 [id number] 02/21/22 14:30 ELLIE 02/21/22 14:24 Wound Center Nurse 2 -Time 14:24 -Correct Patient Yes -Correct Side, Site, Position Yes -Correct Procedure Yes -Procedure Performed Yes -Type of Procedure Debridement -Clinical Debridement Subcutaneous -Tissue Removed Subcutaneous -Post Debridement (cm) - Length 3.2 -Post Debridement (cm) - Width 1.4 -Post Debridement (cm) - Depth 0.2 -Total Square (Post) (cm) 4.48 -Area of Debridement (cm) - Length 3.2 -Area of Debridement (cm) - Width 1.4 -Total Square (Area) (cm) 4.48 -Tunneling No -Undermining/Tunneling No -Circular Undermining No -Wound/Ulcer Outcome Not Healed -Ulcer Cleansing Rinsed/ Irrigated with Saline -Foul Odor after Cleansing No -Bioengineered Tissue No -Bleeding Controlled with Pressure -Treatment Response Procedure Tolerated Well -Offloading No -Pressure Reduction Wheelchair cushion -Debridement - Subq, 1st 20sq cm Yes Pain Scale: 0-10 Numeric Is Patient Pain Free? Yes WC - Nurse 3 - General Ulcer D/C NN Start: 02/21/22 13:49 Freq: Status: Active Protocol: Activity Type Activity Date Activity User E-sign Co-sign Detail Recorded Client Recorded Date Recorded By Document 02/21/22 14:45 TORI [id number] 02/21/22 14:46 TORI 02/21/22 14:45 Wound Care Nurse 3 #1 left Buttock Cluster -Ulcer Cleansing Rinsed/ Irrigated with Saline -Foul Odor after Cleansing No -Negative Pressure Wound Therapy N/A -Primary Dressing Applied Aquacel AG 4x4, Mepilex Border -Aquacel AG 4x4 1 -Mepilex Border 1 Pain Scale: 0-10 Numeric Is Patient Pain Free? Yes WC - Visit Discharge Discharge Condition Stable Ambulatory Status Wheelchair Transportation Private Auto Accompanied by daughter Medication Reconcilliation completed & Yes provided to patient/care provider Clinical Summary of Care Provided Yes Assessment/Plan Assessment/Plan (1) Decubitus ulcer of left buttock, stage 3: CODE(S): L89.323 - Pressure ulcer of left buttock, stage 3 (2) Diabetes mellitus type 2, uncontrolled, without complications: CODE(S): E11.65 - Type 2 diabetes mellitus with hyperglycemia (3) Tobacco use disorder: CODE(S): F17.200 - Nicotine dependence, unspecified, uncomplicated (4) Paraplegia: CODE(S): G82.20 - Paraplegia, unspecified PLAN: Plan Patient was seen and evaluated in the wound center today. A subcutaneous debridement was performed on her left medial buttock ulcer cluster. She had a lot of discomfort during this debridement. She has continued to sit/sleep in her wheelchair for long periods of time. Patient encouraged to off load frequently and to avoid sitting in her wheel chair for longer than 2 hours at a time. She is to avoid falling asleep in her wheelchair. Wound care - Wash daily with soap and water. Aquacel-Ag with silicone border dressing (such as excel SAP) daily. Stressed the importance of off loading and not sitting in her chair too long. She also avoid laying on her back in bed for long periods of time because that is probably contributing to the coccyx area becoming pink and dry. Wound cultur obtained today 02/21/22 because of increased pain and drainage from the ulcer. Depending on the results of the culture, it may necessitate the need for treatment with antibiotics. Wound culture obtained on 10/18/21 which were positive for MRSE and Anaerobic cocci. Will start her on Doxycycline and Flagyl. Encourage diet high in protein, low in carbohydrates. Encouraged increase in Vitamin C to 1,000 mg/day. Due to her history of diabetes and being a paraplegia, she is at increased risk for delayed wound healing, especially since she does not off load as she should. Follow up two weeks. She is to call or come in sooner or go to the ED if she develops any issues or concerns.
[2022-03-07 13:36] VITALS: BP 109/57; PULSE 106; RESP 20; TEMP 36.5; BMI 32.3
--- NOTE | 2022-03-07 14:51 | PN.PCM_ITS ---
History of Present Illness Date of Service: 03/07/22 Chief Complaint: Sore on left buttocks History of Wound: Patient was referred by her RN MATERNAL CHILD, Dr. Nevarez for pressure ulcers on her left medial buttocks. Patient is wheelchair bound. She has a significant medical history of DM type 2, multiple back surgeries which eventually caused her become a paraplegic. Patient is a very poor historian and keeps falling asleep during her appointment. Patient is not sure how long she has had the pressure sore on her left medial buttocks, she is guessing a few months. She has been placing a cream on this area. She is unsure what cream it is. The ulcer cluster is painful to palpation. She states she sits in her wheelchair often more than 8 hours per day and will sometimes fall asleep in her chair. She does not have a special cushion for her wheelchair. She sleeps in a regular hospital bed, not a low air loss mattress. This week she has an area on her coccyx that is dry and pink. There is no separation of skin yet. Wound care - Wash daily with soap and water. Place Aquacel-Ag covered with silicone border dressing (such as excel SAP) daily. Try to off load as much as possible and try to avoid sitting for long periods of time. Wound culture obtained on 02/21/22 had not growth. Wound culture obtained on 10/18/21 which were positive for MRSE and Anaerobic cocci. Completed Doxycycline and Flagyl. Progress of Wound: Left buttock ulcer is slightly improved. It is very painful. She continues to not off load as she should. . Objective Data Objective Data Vital Signs: Vital Signs Temp Pulse Resp BP 97.7 F L 106 H 20 H 109/57 L 03/07/22 13:36 03/07/22 13:36 03/07/22 13:36 03/07/22 13:36 Weight: 200 lb Body Mass Index (BMI) 32.3 Lab / Micro Data Micro: Microbiology 02/21/22 14:28 Wound Abcess - Buttock Gram Stain - Final 02/21/22 14:28 Wound Abcess - Buttock Wound Culture - Final No growth aerobically. 02/21/22 14:28 Wound Abcess - Buttock Anaerobic Culture - Final No growth in 5 days. Charges/Coding Procedures Integumentary 111xxx-113xx: 14026 Shila subq tissue 20 sq cm/< Physical Exam Const alert and oriented x3 HEENT normocephalic Resp normal respiratory effort Cardio regular rate Extremity normal capillary refill Skin Wound Narrative: Left medial buttock ulcer is slightly smaller in size, pink, and painful to palpation. Neuro CN's II-XII intact bilaterally Psych Appearance: well kempt Debridement Note Debridement Note Wound debrided: Buttock ulcer Laterality: Left Type of Debridement: Excisional debridement Depth: Down to and including healthy tissue and in the subcutaneous layer Percentage of wound debrided: 100 Instrument Used: 3mm curette Tissue Removed: Devitalized tissue and slough Severity: Fat Layer Exposed Amount of bleeding with debridement: Mild Bleeding Controlled with: Pressure and Compression and gauze Patient tolerated procedure: Patient tolerated procedure well Post-Debridement Measurements and Additional Note: Post-Debridement Measurements/Treatment - Nurse 1 - General Ulcer Assessment Start: 02/21/22 13:49 Freq: Status: Active Protocol: TAISHA Activity Type Activity Date Activity User E-sign Co-sign Detail Recorded Client Recorded Date Recorded By Document 02/21/22 13:53 DL [id number] 02/21/22 13:59 DL Document 03/07/22 13:36 DL [id number] 03/07/22 13:44 DL 02/21/22 03/07/22 13:53 13:36 - Today's Visit Information Type of service Follow-up Visit Follow-up Visit (Physician/LOGGING RAFTER LABORER (Physician/LOGGING RAFTER LABORER ) ) Arrival Mode Wheelchair Wheelchair Transfer Assistance Manual Manual,None Transfer Assist (Other) x2 x2 Patient Identification Verified (Name & Yes Yes ) Height and Weight Body Mass Index (BMI) 32.3 32.3 BMI Classification Obese Obese Vital Signs Temperature (97.8 F-99.1 F) 97.7 F L 97.7 F L Temperature Source Temporal Temporal Pulse Rate (60-100) 89 106 H Pulse Location Monitor Monitor Respiratory Rate (12-18) 20 H 20 H Respiratory rate source Observation Observation Blood Pressure (90/60-120/80) 122/70 H 109/57 L Blood Pressure Mean (mm Hg) 87 74 Source Monitor Monitor History Since Last Visit- (Skip if this is Patient's initial visit) Have you changed medications since your No No last visit? Any new allergies or adverse reactions No No Had a fall/change in ADL's that may No No increase risk of falls Signs or symptoms of abuse and/or No No neglect since last visit Have you been in the hospital since your No No last visit? Has dressing in place as prescribed Yes Yes Has compression in place as prescribed N/A Has offloadiing in place as prescribed Yes No Experienced any changes in pain level or No No management Pain Scale: 0-10 Numeric Is Patient Pain Free? Yes Yes WC - Nurse 1 - General Ulcer Measurement Start: 02/21/22 13:49 Freq: Status: Active Protocol: Activity Type Activity Date Activity User E-sign Co-sign Detail Recorded Client Recorded Date Recorded By Document 02/21/22 13:53 DL [id number] 02/21/22 13:59 DL Document 03/07/22 13:36 DL [id number] 03/07/22 13:44 DL 02/21/22 03/07/22 13:53 13:36 Wound Center Nurse 1 #1 left Buttock Cluster -Combined with (Name of Wound-Exactly 3.8 as it is documented) -Current Size (cm) - Length 1 3.2 -Current Size (cm) - Width 0.1 1 -Current Size (cm) - Depth 0.1 -Total Square Cm 0.1 3.2 -Photo Taken No No -Exudate Amt Medium Small -Exudate Type Serosanguineous -Wound Margin Distinct, Distinct, Outline Outline Attached Attached -Granulation Amt None Present (0 Large (67-100%) %) -Granulation Quality [place] -Necrosis Amt Large (67-100%) Small (1-33%) -Necrotic Tissue Type Adherent Slough Adherent Slough -Structure Exposed N/A N/A -Texture (Vivi-wound Skin Appearance) No Abnormality Scarring -Moisture (Vivi-wound Skin Appearance) Maceration No Abnormality -Color (Vivi-wound Skin Appearance) No Abnormality No Abnormality -Temperature (Vivi-wound Skin No Abnormality No Abnormality Appearance) (Pt Warm) (Pt Warm) -Tenderness on Palpation (Vivi-wound No No Skin Appearance) -Ulcer Cleansing Rinsed/ Rinsed/ Irrigated with Irrigated with Saline Saline -Foul Odor after Cleansing No No -Anesthetic Used 5% Lidocaine 5% Lidocaine Gel Gel WC - Nurse 2 - General Ulcer CM Notes Start: 02/21/22 13:49 Freq: Status: Active Protocol: Activity Type Activity Date Activity User E-sign Co-sign Detail Recorded Client Recorded Date Recorded By Document 02/21/22 14:24 [id number] 02/21/22 14:30 Document 03/07/22 14:12 [id number] 03/07/22 14:16 02/21/22 03/07/22 14:24 14:12 Wound Center Nurse 2 #1 left Buttock Cluster -Time 14:24 14:14 -Correct Patient Yes Yes -Correct Side, Site, Position Yes Yes -Correct Procedure Yes Yes -Procedure Performed Yes Yes -Type of Procedure Debridement Debridement -Clinical Debridement Subcutaneous Subcutaneous -Tissue Removed Subcutaneous Subcutaneous -Post Debridement (cm) - Length 3.2 2.5 -Post Debridement (cm) - Width 1.4 1.2 -Post Debridement (cm) - Depth 0.2 0.1 -Total Square (Post) (cm) 4.48 3.00 -Area of Debridement (cm) - Length 3.2 2.5 -Area of Debridement (cm) - Width 1.4 1.2 -Total Square (Area) (cm) 4.48 3.00 -Tunneling No No -Undermining/Tunneling No No -Circular Undermining No No -Wound/Ulcer Outcome Not Healed Not Healed -Ulcer Cleansing Rinsed/ Rinsed/ Irrigated with Irrigated with Saline Saline -Foul Odor after Cleansing No No -Bioengineered Tissue No No -Bleeding Controlled with Pressure Pressure -Treatment Response Procedure Procedure Tolerated Well Tolerated Well -Offloading No No -Pressure Reduction Wheelchair Wheelchair cushion cushion -Debridement - Subq, 1st 20sq cm Yes Yes Pain Scale: 0-10 Numeric Is Patient Pain Free? Yes Yes WC - Nurse 3 - General Ulcer D/C NN Start: 02/21/22 13:49 Freq: Status: Active Protocol: Activity Type Activity Date Activity User E-sign Co-sign Detail Recorded Client Recorded Date Recorded By Document 02/21/22 14:45 TORI [id number] 02/21/22 14:46 MI 02/21/22 14:45 Wound Care Nurse 3 #1 left Buttock Cluster -Ulcer Cleansing Rinsed/ Irrigated with Saline -Foul Odor after Cleansing No -Negative Pressure Wound Therapy N/A -Primary Dressing Applied Aquacel AG 4x4, Mepilex Border -Aquacel AG 4x4 1 -Mepilex Border 1 Pain Scale: 0-10 Numeric Is Patient Pain Free? Yes WC - Visit Discharge Discharge Condition Stable Ambulatory Status Wheelchair Transportation Private Auto Accompanied by daughter Medication Reconcilliation completed & Yes provided to patient/care provider Clinical Summary of Care Provided Yes Assessment/Plan Assessment/Plan (1) Decubitus ulcer of left buttock, stage 3: CODE(S): L89.323 - Pressure ulcer of left buttock, stage 3 (2) Diabetes mellitus type 2, uncontrolled, without complications: CODE(S): E11.65 - Type 2 diabetes mellitus with hyperglycemia (3) Tobacco use disorder: CODE(S): F17.200 - Nicotine dependence, unspecified, uncomplicated (4) Paraplegia: CODE(S): G82.20 - Paraplegia, unspecified PLAN: Plan Patient was seen and evaluated in the wound center today. A subcutaneous debridement was performed on her left medial buttock ulcer cluster. She had a lot of discomfort during this debridement. She has continued to sit/sleep in her wheelchair for long periods of time. Patient encouraged to off load frequently and to avoid sitting in her wheel chair for longer than 2 hours at a time. She is to avoid falling asleep in her wheelchair. Wound care - Wash daily with soap and water. Aquacel-Ag with silicone border dressing (such as excel SAP) daily. Stressed the importance of off loading and not sitting in her chair too long. She also avoid laying on her back in bed for long periods of time because that is probably contributing to the coccyx area becoming pink and dry. Wound culture obtained 02/21/22 which was negative for bacterial growth. Wound culture obtained on 10/18/21 which were positive for MRSE and Anaerobic cocci. She completed Doxycycline and Flagyl. Encourage diet high in protein, low in carbohydrates. Encouraged increase in Vitamin C to 1,000 mg/day. Due to her history of diabetes and being a paraplegia, she is at increased risk for delayed wound healing, especially since she does not off load as she should. Follow up two weeks. She is to call or come in sooner or go to the ED if she develops any issues or concerns.
[2022-03-21 13:39] VITALS: BP 168/59; PULSE 68; TEMP 36.6; BMI 32.3
--- NOTE | 2022-03-21 14:03 | PN.PCM_ITS ---
History of Present Illness Date of Service: 03/21/22 Chief Complaint: Sore on left buttocks History of Wound: Patient was referred by her [employer] HELPER, Dr. Nevarez for pressure ulcers on her left medial buttocks. Patient is wheelchair bound. She has a significant medical history of DM type 2, multiple back surgeries which eventually caused her become a paraplegic. Patient is a very poor historian and keeps falling asleep during her appointment. Patient is not sure how long she has had the pressure sore on her left medial buttocks, she is guessing a few months. She has been placing a cream on this area. She is unsure what cream it is. The ulcer cluster is painful to palpation. She states she sits in her wheelchair often more than 8 hours per day and will sometimes fall asleep in her chair. She does not have a special cushion for her wheelchair. She sleeps in a regular hospital bed, not a low air loss mattress. This week she has an area on her coccyx that is dry and pink. There is no separation of skin yet. Wound care - Wash daily with soap and water. Place Aquacel-Ag covered with silicone border dressing (such as excel SAP) daily. Try to off load as much as possible and try to avoid sitting for long periods of time. Wound culture obtained on 02/21/22 had not growth. Wound culture obtained on 10/18/21 which were positive for MRSE and Anaerobic cocci. Completed Doxycycline and Flagyl. Progress of Wound: Left buttock ulcer is much improved. With her new wheelchair, she is able to off load easier in her chair. She is complaining of hip pain and concerns about redness of her left anterior leg. Objective Data Objective Data Vital Signs: Vital Signs Temp Pulse Resp BP 97.9 F 68 20 H 168/59 H 03/21/22 13:39 03/21/22 13:39 03/07/22 13:36 03/21/22 13:39 Weight: 200 lb Body Mass Index (BMI) 32.3 Lab / Micro Data Micro: Microbiology 02/21/22 14:28 Wound Abcess - Buttock Gram Stain - Final 02/21/22 14:28 Wound Abcess - Buttock Wound Culture - Final No growth aerobically. 02/21/22 14:28 Wound Abcess - Buttock Anaerobic Culture - Final No growth in 5 days. Charges/Coding Procedures Integumentary [id number]: [id number] Shila subq tissue 20 sq cm/< Physical Exam Const alert and oriented x3 HEENT normocephalic Resp normal respiratory effort Cardio regular rate Extremity normal capillary refill Skin Skin Narrative: Left lower extremity with +3 edema, skin on leg is shiny, red, warm to touch on left anterior leg. There is a dry scabbed area on her leg in the center of the redness where she bumped her leg. Wound Narrative: Left medial buttock ulcer is smaller in size, pink ulcer bed. Neuro CN's II-XII intact bilaterally Psych Appearance: well kempt Debridement Note Debridement Note Wound debrided: Buttock ulcer Laterality: Left Type of Debridement: Excisional debridement Depth: Down to and including healthy tissue and in the subcutaneous layer Percentage of wound debrided: 100 Instrument Used: 3mm curette Tissue Removed: Devitalized tissue and slough Severity: Fat Layer Exposed Amount of bleeding with debridement: Mild Bleeding Controlled with: Pressure and Compression and gauze Patient tolerated procedure: Patient tolerated procedure well Post-Debridement Measurements and Additional Note: Post-Debridement Measurements/Treatment - Nurse 1 - General Ulcer Assessment Start: 02/21/22 13:49 Freq: Status: Active Protocol: TAISHA Activity Type Activity Date Activity User E-sign Co-sign Detail Recorded Client Recorded Date Recorded By Document 02/21/22 13:53 DL [id number] 02/21/22 13:59 DL Document 03/07/22 13:36 DL [id number] 03/07/22 13:44 DL Document 03/21/22 13:39 AK [id number] 03/21/22 13:41 AK 02/21/22 03/07/22 03/21/22 13:53 13:36 13:39 - Today's Visit Information Type of service Follow-up Visit Follow-up Visit Follow-up Visit (Physician/GOLF CADDY (Physician/GOLF CADDY (Physician/GOLF CADDY ) ) ) Arrival Mode Wheelchair Wheelchair Wheelchair Transfer Assistance Manual Manual,None Transfer Assist (Other) x2 x2 Patient Identification Verified (Name & Yes Yes Yes ) Patient Requires Transmission-Based Yes Precautions Safety Precautions NA Height and Weight Body Mass Index (BMI) 32.3 32.3 32.3 BMI Classification Obese Obese Obese Vital Signs Temperature (97.8 F-99.1 F) 97.7 F L 97.7 F L 97.9 F Temperature Source Temporal Temporal Temporal Pulse Rate (60-100) 89 106 H 68 Pulse Location Monitor Monitor Monitor Respiratory Rate (12-18) 20 H 20 H Respiratory rate source Observation Observation Blood Pressure (90/60-120/80) 122/70 H 109/57 L 168/59 H Blood Pressure Mean (mm Hg) 87 74 95 Source Monitor Monitor Monitor History Since Last Visit- (Skip if this is Patient's initial visit) Have you changed medications since your No No No last visit? Any new allergies or adverse reactions No No No Had a fall/change in ADL's that may No No No increase risk of falls Signs or symptoms of abuse and/or No No No neglect since last visit Have you been in the hospital since your No No No last visit? Has dressing in place as prescribed Yes Yes Yes Has compression in place as prescribed N/A N/A Has offloadiing in place as prescribed Yes No Yes Experienced any changes in pain level or No No No management Left Footwear Regular Shoe Right Footwear Regular Shoe Pain Scale: 0-10 Numeric Is Patient Pain Free? Yes Yes No WC - Nurse 1 - General Ulcer Measurement Start: 02/21/22 13:49 Freq: Status: Active Protocol: Activity Type Activity Date Activity User E-sign Co-sign Detail Recorded Client Recorded Date Recorded By Document 02/21/22 13:53 DL [id number] 02/21/22 13:59 DL Document 03/07/22 13:36 DL [id number] 03/07/22 13:44 DL Document 03/21/22 13:39 AK [id number] 03/21/22 13:41 AK 02/21/22 03/07/22 03/21/22 13:53 13:36 13:39 Wound Center Nurse 1 #1 left Buttock Cluster -Combined with other wound No -Combined with (Name of Wound-Exactly 3.8 as it is documented) -Current Size (cm) - Length 1 3.2 2 -Current Size (cm) - Width 0.1 1 0.5 -Current Size (cm) - Depth 0.1 0.1 -Total Square Cm 0.1 3.2 1.0 -Photo Taken No No No -Tunneling No -Undermining/Tunneling No -Circular Undermining No -Change in Wound Grade/Stage No -Exudate Amt Medium Small Medium -Exudate Type Serosanguineous Serosanguineous -Wound Margin Distinct, Distinct, Distinct, Outline Outline Outline Attached Attached Attached -Granulation Amt None Present (0 Large (67-100%) Medium (34-66%) %) -Granulation Quality [place] -Slough/Fibrin Yes -Necrosis Amt Large (67-100%) Small (1-33%) Medium (34-66%) -Necrotic Tissue Type Adherent Slough Adherent Slough Adherent Slough -Structure Exposed N/A N/A N/A -Texture (Vivi-wound Skin Appearance) No Abnormality Scarring Assessed, Scarring -Moisture (Vivi-wound Skin Appearance) Maceration No Abnormality No Abnormality, Assessed -Color (Vivi-wound Skin Appearance) No Abnormality No Abnormality No Abnormality, Assessed -Temperature (Vivi-wound Skin No Abnormality No Abnormality No Abnormality Appearance) (Pt Warm) (Pt Warm) (Pt Warm) -Tenderness on Palpation (Vivi-wound No No No Skin Appearance) -Ulcer Cleansing Rinsed/ Rinsed/ Rinsed/ Irrigated with Irrigated with Irrigated with Saline Saline Saline -Foul Odor after Cleansing No No No -Anesthetic Used 5% Lidocaine 5% Lidocaine 5% Lidocaine Gel Gel Gel WC - Nurse 2 - General Ulcer CM Notes Start: 02/21/22 13:49 Freq: Status: Active Protocol: Activity Type Activity Date Activity User E-sign Co-sign Detail Recorded Client Recorded Date Recorded By Document 02/21/22 14:24 [id number] 02/21/22 14:30 Document 03/07/22 14:12 [id number] 03/07/22 14:16 Document 03/21/22 13:56 [id number] 03/21/22 13:58 02/21/22 03/07/22 03/21/22 14:24 14:12 13:56 Wound Center Nurse 2 #1 left Buttock Cluster -Time 14:24 14:14 13:57 -Correct Patient Yes Yes Yes -Correct Side, Site, Position Yes Yes Yes -Correct Procedure Yes Yes Yes -Procedure Performed Yes Yes Yes -Type of Procedure Debridement Debridement Debridement -Clinical Debridement Subcutaneous Subcutaneous Subcutaneous -Tissue Removed Subcutaneous Subcutaneous Subcutaneous -Post Debridement (cm) - Length 3.2 2.5 1.8 -Post Debridement (cm) - Width 1.4 1.2 0.8 -Post Debridement (cm) - Depth 0.2 0.1 0.1 -Total Square (Post) (cm) 4.48 3.00 1.44 -Area of Debridement (cm) - Length 3.2 2.5 1.8 -Area of Debridement (cm) - Width 1.4 1.2 0.8 -Total Square (Area) (cm) 4.48 3.00 1.44 -Tunneling No No No -Undermining/Tunneling No No No -Circular Undermining No No No -Wound/Ulcer Outcome Not Healed Not Healed Not Healed -Ulcer Cleansing Rinsed/ Rinsed/ Rinsed/ Irrigated with Irrigated with Irrigated with Saline Saline Saline -Foul Odor after Cleansing No No No -Bioengineered Tissue No No No -Bleeding Controlled with Pressure Pressure Pressure -Treatment Response Procedure Procedure Procedure Tolerated Well Tolerated Well Tolerated Well -Offloading No No No -Pressure Reduction Wheelchair Wheelchair cushion cushion -Debridement - Subq, 1st 20sq cm Yes Yes Yes Pain Scale: 0-10 Numeric Is Patient Pain Free? Yes Yes Yes - Nurse 3 - General Ulcer D/C NN Start: 02/21/22 13:49 Freq: Status: Active Protocol: Activity Type Activity Date Activity User E-sign Co-sign Detail Recorded Client Recorded Date Recorded By Document 02/21/22 14:45 W[place] [id number] 02/21/22 14:46 W[place] Document 03/07/22 15:05 W[place] [id number] 03/07/22 15:06 W[place] 02/21/22 03/07/22 14:45 15:05 Wound Care Nurse 3 #1 left Buttock Cluster -Ulcer Cleansing Rinsed/ Rinsed/ Irrigated with Irrigated with Saline Saline -Foul Odor after Cleansing No No -Negative Pressure Wound Therapy N/A N/A -Primary Dressing Applied Aquacel AG 4x4, Mepilex Border, Mepilex Border Promogran Lyudmila Matter -Aquacel AG 4x4 1 -Mepilex Border 1 1 -Promogran Lyudmila Matter 1 Pain Scale: 0-10 Numeric Is Patient Pain Free? Yes Yes - Visit Discharge Discharge Condition Stable Stable Ambulatory Status Wheelchair Wheelchair Transportation Private Auto Accompanied by daughter daughter Medication Reconcilliation completed & Yes Yes provided to patient/care provider Clinical Summary of Care Provided Yes Yes Assessment/Plan Assessment/Plan (1) Decubitus ulcer of left buttock, stage 3: CODE(S): L89.323 - Pressure ulcer of left buttock, stage 3 (2) Diabetes mellitus type 2, uncontrolled, without complications: CODE(S): E11.65 - Type 2 diabetes mellitus with hyperglycemia (3) Tobacco use disorder: CODE(S): F17.200 - Nicotine dependence, unspecified, uncomplicated (4) Paraplegia: CODE(S): G82.20 - Paraplegia, unspecified (5) Cellulitis of left leg: CODE(S): L03.116 - Cellulitis of left lower limb (6) Edema of both lower legs: CODE(S): R60.0 - Localized edema PLAN: Plan Patient was seen and evaluated in the wound center today. A subcutaneous debridement was performed on her left medial buttock ulcer. She had a lot of discomfort during this debridement. She has continued to sit/sleep in her wheelchair for long periods of time, but with her new wheelchair she is able to tilt the seat back to help off load. Patient encouraged to off load frequently and to avoid sitting in her wheel chair for longer than 2 hours at a time. Wound care - Wash daily with soap and water. To her medial buttock/ischial ulcer place Aquacel-Ag with silicone border dressing (such as excel SAP) daily. Stressed the importance of off loading and not sitting in her chair too long. She also avoid laying on her back in bed for long periods of time because that is probably contributing to the coccyx area becoming pink and dry. Wound culture obtained 02/21/22 which was negative for bacterial growth. Wound culture obtained on 10/18/21 which were positive for MRSE and Anaerobic cocci. She completed Doxycycline and Flagyl. Encourage diet high in protein, low in carbohydrates. Encouraged increase in Vitamin C to 1,000 mg/day. Due to her history of diabetes and being a paraplegia, she is at increased risk for delayed wound healing, especially since she does not off load as she should. Left lower leg is red, warm and edematous, it appears to be cellulitis, will start her on Doxycycline. Instructed her how to take her medication and if this redness worsens or starts streaking up her leg, then she needs to go to the ED for further evaluation. Will also have her wear a single layer tubigrip for compression to help with her edema. Patient's daughter states her mother will probably not wear the compression because she doesn't like it. Follow up two weeks. She is to call or come in sooner or go to the ED if she develops any issues or concerns.
== END 2022-03-23 23:59 | disposition home or self-care (01) ==
LOC: WC 13:30
PROVIDERS: PCP Internal Medicine; Visit Provider Nurse Practitioner Family
DX: E11.622 Type 2 diabetes mellitus with other skin ulcer (principal); L89.323 Pressure ulcer of left buttock, stage 3; G82.20 Paraplegia, unspecified; E11.65 Type 2 diabetes mellitus with hyperglycemia; Z99.3 Dependence on wheelchair; R60.0 Localized edema; F17.200 Nicotine dependence, unspecified, uncomplicated; L03.116 Cellulitis of left lower limb
CPT/HCPCS: 11042; 87070; 87075; 87205

== ENCOUNTER 2022-04-18 13:45 | Outpatient (RCR) | payer MEDICARE, MEDICAID, SELFPAY ==
[2022-03-24 00:15] VITALS: BP 168/59; PULSE 68; RESP 20; TEMP 36.6; BMI 32.3
[2022-04-04 14:21] VITALS: BP 128/74; PULSE 88; TEMP 36.1; BMI 32.3
--- NOTE | 2022-04-04 16:44 | PCM.WC.PN ---
History of Present Illness Date of Service: 04/04/22 Chief Complaint: Sore on left buttocks History of Wound: Patient was referred by her INFORMATION STRATEGIST, Dr. Nevarez for pressure ulcers on her left medial buttocks/ischial area. Patient is wheelchair bound. She has a significant medical history of DM type 2, multiple back surgeries which eventually caused her become a paraplegic. Patient is a very poor historian and keeps falling asleep during her appointment. Patient is not sure how long she has had the pressure sore on her left medial buttocks, she is guessing a few months. She has been placing a cream on this area. She is unsure what cream it is. The ulcer cluster is painful to palpation. She states she sits in her wheelchair often more than 8 hours per day and will sometimes fall asleep in her chair. She does not have a special cushion for her wheelchair. She sleeps in a regular hospital bed, not a low air loss mattress. This week she has a new area on her left buttocks and a cluster on left coccyx cluster. These areas look like pressure. Wound care - Wash daily with soap and water. Place Collagen Hydrogel and cover with gauze daily. Try to off load as much as possible and try to avoid sitting for long periods of time. Wound culture obtained on 02/21/22 had not growth. Wound culture obtained on 10/18/21 which were positive for MRSE and Anaerobic cocci. Completed Doxycycline and Flagyl. Progress of Wound: Left buttock/ischial ulcer is stable. New left buttocks area is pink and coccyx cluster is superficial. These areas are from pressure and not off loading. Objective Data Objective Data Vital Signs: Vital Signs Temp Pulse Resp BP 97.0 F L 88 20 H 128/74 H 04/04/22 14:21 04/04/22 14:21 03/24/22 00:15 04/04/22 14:21 Weight: 200 lb Body Mass Index (BMI) 32.3 Charges/Coding Procedures Integumentary 111xxx-113xx: [id number] Shila subq tissue 20 sq cm/< Physical Exam Const alert and oriented x3 HEENT normocephalic Resp normal respiratory effort Cardio regular rate Extremity normal capillary refill Skin Skin Narrative: Left lower extremity with +2 edema, skin on leg is shiny but the redness had decreased. It does not look infected at this time. Wound Narrative: Left medial buttock/ischial ulcer is stable. She has a new left buttock ulcer and left coccyx ulcer cluster that are superficial with pink bases. Neuro CN's II-XII intact bilaterally Psych affect normal Appearance: well kempt Debridement Note Debridement Note Wound debrided: Buttock/ischial ulcer Laterality: Left Type of Debridement: Excisional debridement Depth: Down to and including healthy tissue and in the subcutaneous layer Percentage of wound debrided: 100 Instrument Used: 3mm curette Tissue Removed: Devitalized tissue and slough Severity: Fat Layer Exposed Amount of bleeding with debridement: Mild Bleeding Controlled with: Pressure and Compression and gauze Patient tolerated procedure: Patient tolerated procedure well Post-Debridement Measurements and Additional Note: Post-Debridement Measurements/Treatment - Nurse 1 - General Ulcer Assessment Start: 04/04/22 14:21 Freq: Status: Active Protocol: SCOTTY.[email or web address] Activity Type Activity Date Activity User E-sign Co-sign Detail Recorded Client Recorded Date Recorded By Document 04/04/22 14:21 RICH [id number] 04/04/22 14:26 RICH 04/04/22 14:21 - Today's Visit Information Type of service Follow-up Visit (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 Any new allergies or adverse reactions No Had a fall/change in ADL's that may No increase risk of falls Signs or symptoms of abuse and/or No neglect since last visit Have you been in the hospital since your No last visit? Has dressing in place as prescribed Yes Has compression in place as prescribed N/A Has offloadiing in place as prescribed N/A Experienced any changes in pain level or No management Left Footwear Regular Shoe Right Footwear Regular Shoe Pain Scale: 0-10 Numeric Is Patient Pain Free? Yes - Nurse 1 - General Ulcer Measurement Start: 04/04/22 14:21 Freq: Status: Active Protocol: Activity Type Activity Date Activity User E-sign Co-sign Detail Recorded Client Recorded Date Recorded By Document 04/04/22 14:21 RICH [id number] 04/04/22 14:26 RICH 04/04/22 14:21 Wound Center Nurse 1 #1 left ischium -Current Size (cm) - Length 0.4 -Current Size (cm) - Width 0.5 -Current Size (cm) - Depth 0.1 -Total Square Cm 0.20 -Exudate Amt Small -Exudate Type Serosanguineous -Wound Margin Distinct, Outline Attached -Granulation Amt Small (1-33%) -Granulation Quality [place] -Necrosis Amt Small (1-33%) -Necrotic Tissue Type Adherent Slough -Texture (Vivi-wound Skin Appearance) Assessed, Scarring -Color (Vivi-wound Skin Appearance) No Abnormality, Assessed -Temperature (Vivi-wound Skin No Abnormality Appearance) (Pt Warm) -Tenderness on Palpation (Vivi-wound No Skin Appearance) -Ulcer Cleansing Rinsed/ Irrigated with Saline -Foul Odor after Cleansing No -Anesthetic Used 5% Lidocaine Gel WC - Nurse 2 - General Ulcer CM Notes Start: 04/04/22 14:21 Freq: Status: Active Protocol: Activity Type Activity Date Activity User E-sign Co-sign Detail Recorded Client Recorded Date Recorded By Document 04/04/22 14:37 ELLIE [id number] 04/04/22 14:42 ELLIE 04/04/22 14:37 Wound Center Nurse 2 3-coccyx cluster -Time 14:41 -Correct Patient Yes -Correct Side, Site, Position Yes -Correct Procedure Yes -Procedure Performed Yes -Type of Procedure Debridement -Clinical Debridement Subcutaneous -Tissue Removed Subcutaneous -Post Debridement (cm) - Length 2.9 -Post Debridement (cm) - Width 0.5 -Post Debridement (cm) - Depth 0.1 -Total Square (Post) (cm) 1.45 -Area of Debridement (cm) - Length 2.9 -Area of Debridement (cm) - Width 0.5 -Total Square (Area) (cm) 1.45 -Tunneling No -Undermining/Tunneling No -Circular Undermining No -Wound/Ulcer Outcome Not Healed -Ulcer Cleansing Wound Cleanser -Foul Odor after Cleansing No -Bioengineered Tissue No -Bleeding Controlled with Pressure -Treatment Response Procedure Tolerated Well -Offloading No -Debridement - Subq, 20sq cm No 2-left buttuvks -Time 14:39 -Correct Patient Yes -Correct Side, Site, Position Yes -Correct Procedure Yes -Procedure Performed Yes -Type of Procedure Debridement -Clinical Debridement Subcutaneous -Tissue Removed Subcutaneous -Post Debridement (cm) - Length 1.2 -Post Debridement (cm) - Width 0.5 -Post Debridement (cm) - Depth 0.1 -Total Square (Post) (cm) 0.60 -Area of Debridement (cm) - Length 1.2 -Area of Debridement (cm) - Width 0.5 -Total Square (Area) (cm) 0.60 -Tunneling No -Circular Undermining No -Wound/Ulcer Outcome Not Healed -Ulcer Cleansing Rinsed/ Irrigated with Saline -Foul Odor after Cleansing No -Bioengineered Tissue No -Bleeding Controlled with Pressure -Treatment Response Procedure Tolerated Well -Offloading No -Debridement - Subq, 20sq cm No #1 left ischium -Time 14:38 -Correct Patient Yes -Correct Side, Site, Position Yes -Correct Procedure Yes -Procedure Performed Yes -Type of Procedure Debridement -Clinical Debridement Subcutaneous -Tissue Removed Subcutaneous -Post Debridement (cm) - Length 1.4 -Post Debridement (cm) - Width 1.4 -Post Debridement (cm) - Depth 0.1 -Total Square (Post) (cm) 1.96 -Area of Debridement (cm) - Length 1.4 -Area of Debridement (cm) - Width 1.4 -Total Square (Area) (cm) 1.96 -Tunneling No -Undermining/Tunneling No -Circular Undermining No -Wound/Ulcer Outcome Not Healed -Ulcer Cleansing Rinsed/ Irrigated with Saline -Foul Odor after Cleansing No -Bioengineered Tissue No -Bleeding Controlled with Pressure -Treatment Response Procedure Tolerated Well -Offloading No -Debridement - Subq, 20sq cm Yes Pain Scale: 0-10 Numeric Is Patient Pain Free? Yes Additional Wound Wound debrided: New buttock ulcer Laterality: Left Wound Grade/Stage: Stage III Type of Debridement: Excisional debridement Anesthesia Used: 5% Lidocaine Gel Depth: Down to and including healthy tissue and in the subcutaneous layer Percentage of wound debrided: 100 Instrument Used: 3mm curette Tissue Removed: Devitalized tissue and slough Severity: Fat Layer Exposed Amount of bleeding with debridement: Mild Bleeding Controlled with: Compression and gauze Patient tolerated procedure: Patient tolerated procedure well Additional Wound Wound debrided: Coccyx cluster ulcer Laterality: Left Wound Grade/Stage: Stage III Type of Debridement: Excisional debridement Anesthesia Used: 5% Lidocaine Gel Depth: Down to and including healthy tissue and in the subcutaneous layer Percentage of wound debrided: 100 Instrument Used: 3mm curette Tissue Removed: Devitalized tissue and slough Severity: Fat Layer Exposed Amount of bleeding with debridement: Mild Bleeding Controlled with: Compression and gauze Patient tolerated procedure: Patient tolerated procedure well Assessment/Plan Assessment/Plan (1) Decubitus ulcer of left perineal ischial region, stage 3: CODE(S): L89.323 - Pressure ulcer of left buttock, stage 3 (2) Decubitus ulcer of left buttock, stage 3: CODE(S): L89.323 - Pressure ulcer of left buttock, stage 3 (3) Decubitus ulcer of coccygeal region, stage 3: CODE(S): L89.153 - Pressure ulcer of sacral region, stage 3 (4) Diabetes mellitus type 2, uncontrolled, without complications: CODE(S): E11.65 - Type 2 diabetes mellitus with hyperglycemia (5) Tobacco use disorder: CODE(S): F17.200 - Nicotine dependence, unspecified, uncomplicated (6) Paraplegia: CODE(S): G82.20 - Paraplegia, unspecified (7) Cellulitis of left leg: CODE(S): L03.116 - Cellulitis of left lower limb (8) Edema of both lower legs: CODE(S): R60.0 - Localized edema PLAN: Plan Patient was seen and evaluated in the wound center today. A subcutaneous debridement was performed on her left ischial ulcer, left buttock ulcer and left coccyx ulcer cluster. She had a lot of discomfort during this debridement. She has continued to sit/sleep in her wheelchair for long periods of time, but with her new wheelchair she is able to tilt the seat back to help off load. Patient encouraged to off load frequently and to avoid sitting in her wheel chair for longer than 2 hours at a time. Wound care - Wash daily with soap and water daily. Place collagen hydrogel covered with gauze daily to all her ulcer areas. Stressed the importance of off loading and not sitting in her chair too long. She also avoid laying on her back in bed for long periods of time because that is probably contributing to the coccyx area becoming pink and dry. Wound culture obtained 02/21/22 which was negative for bacterial growth. Wound culture obtained on 10/18/21 which were positive for MRSE and Anaerobic cocci. She completed Doxycycline and Flagyl. Encourage diet high in protein, low in carbohydrates. Encouraged increase in Vitamin C to 1,000 mg/day. Due to her history of diabetes and being a paraplegia, she is at increased risk for delayed wound healing, especially since she does not off load as she should. Left lower leg is red, warm and edematous has improved with her treatment of Doxycycline. Stressed the importance of off loading and not staying her her wheel chair for long periods of time. Follow up two weeks. She is to call or come in sooner or go to the ED if she develops any issues or concerns.
[2022-04-18 13:45] VITALS: BP 142/85; PULSE 79; TEMP 36.2; BMI 32.3
--- NOTE | 2022-04-18 14:40 | PN.PCM_ITS ---
History of Present Illness Date of Service: 04/18/22 Chief Complaint: Sore on left buttocks History of Wound: Patient was referred by her CORRECTIONAL OFFICER CAPTAIN, Dr. Nevarez for pressure ulcers on her left medial buttocks/ischial area. Patient is wheelchair bound. She has a significant medical history of DM type 2, multiple back surgeries which eventually caused her become a paraplegic. Patient is a very poor historian and keeps falling asleep during her appointment. Patient is not sure how long she has had the pressure sore on her left medial buttocks, she is guessing a few months. She has been placing a cream on this area. She is unsure what cream it is. The ulcer cluster is painful to palpation. She states she sits in her wheelchair often more than 8 hours per day and will sometimes fall asleep in her chair. She does not have a special cushion for her wheelchair. She sleeps in a regular hospital bed, not a low air loss mattress. This week she has a new area on her left buttocks and a cluster on left coccyx cluster. These areas look like pressure. Wound care - Wash daily with soap and water. Place Collagen Hydrogel and cover with gauze daily to the left ischial ulcer, left buttock ulcer and sacral cluster and to the left abdomen ulcer. Try to off load as much as possible and try to avoid sitting for long periods of time. Wound culture obtained on 02/21/22 had not growth. Wound culture obtained on 10/18/21 which were positive for MRSE and Anaerobic cocci. Completed Doxycycline and Flagyl. Progress of Wound: Left buttock/ischial ulcer is stable. Coccyx cluster is superficial. New area on anterior left abdomen that is superficial with a pink base. Objective Data Objective Data Vital Signs: Vital Signs Temp Pulse Resp BP 97.2 F L 79 20 H 142/85 H 04/18/22 13:45 04/18/22 13:45 03/24/22 00:15 04/18/22 13:45 Weight: 200 lb Body Mass Index (BMI) 32.3 Charges/Coding Procedures Integumentary 111xxx-113xx: [id number] Shila subq tissue 20 sq cm/< Physical Exam Const alert and oriented x3 HEENT normocephalic Resp normal respiratory effort Cardio regular rate Extremity normal capillary refill Skin Skin Narrative: Left lower extremity with edema. Wound Narrative: Left medial buttock/ischial ulcer and coccyx ulcer cluster are stable. New wound on anterior left abdomen which is shallow with a pink wound bed. Neuro CN's II-XII intact bilaterally Psych affect normal Appearance: well kempt Debridement Note Debridement Note Wound debrided: Buttock/ischial ulcer Laterality: Left Type of Debridement: Excisional debridement Depth: Down to and including healthy tissue and in the subcutaneous layer Percentage of wound debrided: 100 Instrument Used: 3mm curette Tissue Removed: Devitalized tissue and slough Severity: Fat Layer Exposed Amount of bleeding with debridement: Mild Bleeding Controlled with: Pressure and Compression and gauze Patient tolerated procedure: Patient tolerated procedure well Post-Debridement Measurements and Additional Note: Post-Debridement Measurements/Treatment - Nurse 1 - General Ulcer Assessment Start: 04/04/22 14:21 Freq: Status: Active Protocol: [email or web address].ZACK Activity Type Activity Date Activity User E-sign Co-sign Detail Recorded Client Recorded Date Recorded By Document 04/04/22 14:21 [id number] 04/04/22 14:26 Document 04/18/22 13:45 [id number] 04/18/22 13:56 KR 04/04/22 04/18/22 14:21 13:45 - Today's Visit Information Type of service Follow-up Visit Follow-up Visit (Physician/[employer]ER [employer] MERCHANDISER (Physician/CONSUMER [employer] MERCHANDISER ) ) Arrival Mode Wheelchair Wheelchair Patient Identification Verified (Name & Yes Yes ) Height and Weight Body Mass Index (BMI) 32.3 32.3 BMI Classification Obese Obese Vital Signs Temperature (97.8 F-99.1 F) 97.0 F L 97.2 F L Temperature Source Temporal Temporal Pulse Rate (60-100) 88 79 Pulse Location Monitor Monitor Blood Pressure (90/60-120/80) 128/74 H 142/85 H Blood Pressure Mean (mm Hg) 92 104 Source Monitor Monitor Position Semi-Fowlers Semi-Fowlers Blood Pressure Location Left Arm Right Arm History Since Last Visit- (Skip if this is Patient's initial visit) Have you changed medications since your No No last visit? Any new allergies or adverse reactions No No Had a fall/change in ADL's that may No No increase risk of falls Signs or symptoms of abuse and/or No No neglect since last visit Have you been in the hospital since your No No last visit? Has dressing in place as prescribed Yes Yes Has compression in place as prescribed N/A N/A Has offloadiing in place as prescribed N/A N/A Experienced any changes in pain level or No No management Left Footwear Regular Shoe Regular Shoe Right Footwear Regular Shoe Regular Shoe Pain Scale: 0-10 Numeric Is Patient Pain Free? Yes Yes WC - Nurse 1 - General Ulcer Measurement Start: 04/04/22 14:21 Freq: Status: Active Protocol: Activity Type Activity Date Activity User E-sign Co-sign Detail Recorded Client Recorded Date Recorded By Document 04/04/22 14:21 KR [id number] 04/04/22 14:26 KR Document 04/18/22 13:45 KR [id number] 04/18/22 13:56 KR 04/04/22 04/18/22 14:21 13:45 Wound Center Nurse 1 #4 Abdomen -Current Size (cm) - Length 0.6 -Current Size (cm) - Width 0.5 -Current Size (cm) - Depth 0.1 -Total Square Cm 0.30 -Exudate Amt Small -Exudate Type Serosanguineous -Wound Margin Distinct, Outline Attached -Granulation Amt Large (67-100%) -Granulation Quality Red -Necrosis Amt Small (1-33%) -Necrotic Tissue Type Adherent Slough -Texture (Vivi-wound Skin Appearance) Assessed, Scarring -Moisture (Vivi-wound Skin Appearance) No Abnormality, Assessed -Color (Vivi-wound Skin Appearance) No Abnormality, Assessed -Temperature (Vivi-wound Skin No Abnormality Appearance) (Pt Warm) -Tenderness on Palpation (Vivi-wound No Skin Appearance) -Ulcer Cleansing Rinsed/ Irrigated with Saline -Foul Odor after Cleansing No -Anesthetic Used 5% Lidocaine Gel 3-coccyx cluster -Current Size (cm) - Length 2.8 -Current Size (cm) - Width 1 -Current Size (cm) - Depth 0.1 -Total Square Cm 2.8 -Exudate Amt Small -Exudate Type Serosanguineous -Wound Margin Distinct, Outline Attached -Granulation Amt Medium (34-66%) -Granulation Quality [place] -Necrosis Amt None Present (0 %) -Texture (Vivi-wound Skin Appearance) Assessed, Scarring -Moisture (Vivi-wound Skin Appearance) No Abnormality, Assessed -Color (Vivi-wound Skin Appearance) No Abnormality, Assessed -Temperature (Vivi-wound Skin No Abnormality Appearance) (Pt Warm) -Tenderness on Palpation (Vivi-wound No Skin Appearance) -Ulcer Cleansing Rinsed/ Irrigated with Saline -Foul Odor after Cleansing No -Anesthetic Used 5% Lidocaine Gel 2-left buttuvks -Current Size (cm) - Length 0.2 -Current Size (cm) - Width 0.8 -Current Size (cm) - Depth 0.1 -Total Square Cm 0.16 -Exudate Amt Small -Exudate Type Serosanguineous -Wound Margin Distinct, Outline Attached -Granulation Amt Small (1-33%) -Granulation Quality [place] -Necrosis Amt None Present (0 %) -Texture (Vivi-wound Skin Appearance) Assessed, Scarring -Moisture (Vivi-wound Skin Appearance) No Abnormality, Assessed -Color (Vivi-wound Skin Appearance) No Abnormality, Assessed -Temperature (Vivi-wound Skin No Abnormality Appearance) (Pt Warm) -Tenderness on Palpation (Vivi-wound No Skin Appearance) -Ulcer Cleansing Soap and Water -Foul Odor after Cleansing No -Anesthetic Used 5% Lidocaine Gel #1 left ischium -Current Size (cm) - Length 0.4 0.8 -Current Size (cm) - Width 0.5 0.4 -Current Size (cm) - Depth 0.1 0.1 -Total Square Cm 0.20 0.32 -Exudate Amt Small -Exudate Type Serosanguineous -Wound Margin Distinct, Distinct, Outline Outline Attached Attached -Granulation Amt Small (1-33%) Small (1-33%) -Granulation Quality [place] -Necrosis Amt Small (1-33%) None Present (0 %) -Necrotic Tissue Type Adherent Slough -Texture (Vivi-wound Skin Appearance) Assessed, Assessed, Scarring Scarring -Moisture (Vivi-wound Skin Appearance) No Abnormality, Assessed -Color (Vivi-wound Skin Appearance) No Abnormality, No Abnormality, Assessed Assessed -Temperature (Vivi-wound Skin No Abnormality No Abnormality Appearance) (Pt Warm) (Pt Warm) -Tenderness on Palpation (Vivi-wound No No Skin Appearance) -Ulcer Cleansing Rinsed/ Soap and Water Irrigated with Saline -Foul Odor after Cleansing No No -Anesthetic Used 5% Lidocaine 5% Lidocaine Gel Gel WC - Nurse 2 - General Ulcer CM Notes Start: 04/04/22 14:21 Freq: Status: Active Protocol: Activity Type Activity Date Activity User E-sign Co-sign Detail Recorded Client Recorded Date Recorded By Document 04/04/22 14:37 [id number] 04/04/22 14:42 Document 04/18/22 14:15 [id number] 04/18/22 14:21 04/04/22 04/18/22 14:37 14:15 Wound Center Nurse 2 #4 Abdomen -Time 14:16 -Correct Patient Yes -Correct Side, Site, Position Yes -Correct Procedure Yes -Procedure Performed Yes -Type of Procedure Debridement -Clinical Debridement Subcutaneous -Tissue Removed Subcutaneous -Post Debridement (cm) - Length 1.7 -Post Debridement (cm) - Width 1.3 -Post Debridement (cm) - Depth 0.1 -Total Square (Post) (cm) 2.21 -Area of Debridement (cm) - Length 1.7 -Area of Debridement (cm) - Width 1.3 -Total Square (Area) (cm) 2.21 -Tunneling No -Undermining/Tunneling No -Circular Undermining No -Wound/Ulcer Outcome Not Healed -Ulcer Cleansing Wound Cleanser -Foul Odor after Cleansing No -Bioengineered Tissue No -Bleeding Controlled with Pressure -Treatment Response Procedure Tolerated Well -Offloading No -Debridement - Subq, 1st 20sq cm No 3-coccyx cluster -Time 14:41 14:17 -Correct Patient Yes Yes -Correct Side, Site, Position Yes Yes -Correct Procedure Yes Yes -Procedure Performed Yes Yes -Type of Procedure Debridement Debridement -Clinical Debridement Subcutaneous Subcutaneous -Tissue Removed Subcutaneous Subcutaneous -Post Debridement (cm) - Length 2.9 2.8 -Post Debridement (cm) - Width 0.5 0.8 -Post Debridement (cm) - Depth 0.1 0.1 -Total Square (Post) (cm) 1.45 2.24 -Area of Debridement (cm) - Length 2.9 2.8 -Area of Debridement (cm) - Width 0.5 0.8 -Total Square (Area) (cm) 1.45 2.24 -Tunneling No No -Undermining/Tunneling No No -Circular Undermining No No -Wound/Ulcer Outcome Not Healed Not Healed -Ulcer Cleansing Wound Cleanser Rinsed/ Irrigated with Saline -Foul Odor after Cleansing No No -Bioengineered Tissue No No -Bleeding Controlled with Pressure Pressure -Treatment Response Procedure Procedure Tolerated Well Tolerated Well -Offloading No No -Debridement - Subq, 1st 20sq cm No No 2-left buttuvks -Time 14:39 14:18 -Correct Patient Yes Yes -Correct Side, Site, Position Yes Yes -Correct Procedure Yes Yes -Procedure Performed Yes Yes -Type of Procedure Debridement Debridement -Clinical Debridement Subcutaneous Subcutaneous -Tissue Removed Subcutaneous Subcutaneous -Post Debridement (cm) - Length 1.2 1.0 -Post Debridement (cm) - Width 0.5 0.3 -Post Debridement (cm) - Depth 0.1 0.1 -Total Square (Post) (cm) 0.60 0.30 -Area of Debridement (cm) - Length 1.2 1.0 -Area of Debridement (cm) - Width 0.5 0.3 -Total Square (Area) (cm) 0.60 0.30 -Tunneling No No -Undermining/Tunneling No -Circular Undermining No No -Wound/Ulcer Outcome Not Healed Not Healed -Ulcer Cleansing Rinsed/ Rinsed/ Irrigated with Irrigated with Saline Saline -Foul Odor after Cleansing No No -Bioengineered Tissue No No -Bleeding Controlled with Pressure Pressure -Treatment Response Procedure Procedure Tolerated Well Tolerated Well -Offloading No No -Debridement - Subq, 1st 20sq cm No No #1 left ischium -Time 14:38 14:19 -Correct Patient Yes Yes -Correct Side, Site, Position Yes Yes -Correct Procedure Yes Yes -Procedure Performed Yes Yes -Type of Procedure Debridement Debridement -Clinical Debridement Subcutaneous Subcutaneous -Tissue Removed Subcutaneous Subcutaneous -Post Debridement (cm) - Length 1.4 1.0 -Post Debridement (cm) - Width 1.4 0.4 -Post Debridement (cm) - Depth 0.1 0.1 -Total Square (Post) (cm) 1.96 0.40 -Area of Debridement (cm) - Length 1.4 1.0 -Area of Debridement (cm) - Width 1.4 0.4 -Total Square (Area) (cm) 1.96 0.40 -Tunneling No No -Undermining/Tunneling No No -Circular Undermining No No -Wound/Ulcer Outcome Not Healed Not Healed -Ulcer Cleansing Rinsed/ Rinsed/ Irrigated with Irrigated with Saline Saline -Foul Odor after Cleansing No No -Bioengineered Tissue No No -Bleeding Controlled with Pressure Pressure -Treatment Response Procedure Procedure Tolerated Well Tolerated Well -Offloading No No -Debridement - Subq, 1st 20sq cm Yes Yes Pain Scale: 0-10 Numeric Is Patient Pain Free? Yes Yes - Nurse 3 - General Ulcer D/C NN Start: 04/04/22 14:21 Freq: Status: Active Protocol: Activity Type Activity Date Activity User E-sign Co-sign Detail Recorded Client Recorded Date Recorded By Document 04/18/22 14:26 RICH [id number] 04/18/22 14:27 RICH 04/18/22 14:26 Wound Care Nurse 3 #4 Abdomen -Ulcer Cleansing Rinsed/ Irrigated with Saline -Primary Dressing Applied C Hydrogel ($) -Primary Dressing Covered/Secured with Dry Gauze, Secured with Tape 3-coccyx cluster -Ulcer Cleansing Rinsed/ Irrigated with Saline -Primary Dressing Covered/Secured with Dry Gauze, Secured with Tape 2-left buttuvks -Ulcer Cleansing Rinsed/ Irrigated with Saline -Primary Dressing Covered/Secured with Dry Gauze, Secured with Tape #1 left ischium -Ulcer Cleansing Rinsed/ Irrigated with Saline -Primary Dressing Covered/Secured with Dry Gauze, Secured with Tape Pain Scale: 0-10 Numeric Is Patient Pain Free? Yes - Visit Discharge Discharge Condition Stable Ambulatory Status Wheelchair Transportation Private Auto Accompanied by daughter Additional Wound Wound debrided: Buttock ulcer Laterality: Left Wound Grade/Stage: Stage III Type of Debridement: Excisional debridement Anesthesia Used: 5% Lidocaine Gel Depth: Down to and including healthy tissue and in the subcutaneous layer Percentage of wound debrided: 100 Instrument Used: 3mm curette Tissue Removed: Devitalized tissue and slough Severity: Fat Layer Exposed Amount of bleeding with debridement: Mild Bleeding Controlled with: Compression and gauze Patient tolerated procedure: Patient tolerated procedure well Additional Wound Wound debrided: Coccyx cluster ulcer Laterality: Left Wound Grade/Stage: Stage III Type of Debridement: Excisional debridement Anesthesia Used: 5% Lidocaine Gel Depth: Down to and including healthy tissue and in the subcutaneous layer Percentage of wound debrided: 100 Instrument Used: 3mm curette Tissue Removed: Devitalized tissue and slough Severity: Fat Layer Exposed Amount of bleeding with debridement: Mild Bleeding Controlled with: Compression and gauze Patient tolerated procedure: Patient tolerated procedure well Additional Wound Wound debrided: abdomen wound Laterality: Right Type of Debridement: Excisional debridement Anesthesia Used: 5% Lidocaine Gel Depth: Down to and including healthy tissue and in the subcutaneous layer Percentage of wound debrided: 100 Instrument Used: 3mm curette Tissue Removed: Devitalized tissue and slough Severity: Fat Layer Exposed Amount of bleeding with debridement: Mild Bleeding Controlled with: Pressure Patient tolerated procedure: Patient tolerated procedure well Assessment/Plan Assessment/Plan (1) Decubitus ulcer of left perineal ischial region, stage 3: CODE(S): L89.323 - Pressure ulcer of left buttock, stage 3 (2) Decubitus ulcer of left buttock, stage 3: CODE(S): L89.323 - Pressure ulcer of left buttock, stage 3 (3) Decubitus ulcer of coccygeal region, stage 3: CODE(S): L89.153 - Pressure ulcer of sacral region, stage 3 (4) Wound, open, abdominal wall, anterior: CODE(S): S31.109A - Unspecified open wound of abdominal wall, unspecified quadrant without penetration into peritoneal cavity, initial encounter (5) Diabetes mellitus type 2, uncontrolled, without complications: CODE(S): E11.65 - Type 2 diabetes mellitus with hyperglycemia (6) Tobacco use disorder: CODE(S): F17.200 - Nicotine dependence, unspecified, uncomplicated (7) Paraplegia: CODE(S): G82.20 - Paraplegia, unspecified (8) Cellulitis of left leg: CODE(S): L03.116 - Cellulitis of left lower limb (9) Edema of both lower legs: CODE(S): R60.0 - Localized edema PLAN: Plan Patient was seen and evaluated in the wound center today. A subcutaneous debridement was performed on her left ischial ulcer, left buttock ulcer and left coccyx ulcer cluster and right anterior abdomen. She had a lot of discomfort during this debridement. She has continued to sit/sleep in her wheelchair for long periods of time, but with her new wheelchair she is able to tilt the seat back to help off load. Patient encouraged to off load frequently and to avoid sitting in her wheel chair for longer than 2 hours at a time. Wound care - Wash daily with soap and water daily. Place collagen hydrogel covered with gauze daily to all her ulcer areas. Will have her wash with chlorhexidine twice weekly but she is not to use it on her mucous membrane areas. Stressed the importance of off loading and not sitting in her chair too long. She also avoid laying on her back in bed for long periods of time because that is probably contributing to the coccyx area becoming pink and dry. Wound culture obtained 02/21/22 which was negative for bacterial growth. Wound culture obtained on 10/18/21 which were positive for MRSE and Anaerobic cocci. She completed Doxycycline and Flagyl. Encourage diet high in protein, low in carbohydrates. Encouraged increase in Vitamin C to 1,000 mg/day. Due to her history of diabetes and being a paraplegia, she is at increased risk for delayed wound healing, especially since she does not off load as she should. Left lower leg is red, warm and edematous has improved with her treatment of Doxycycline. Stressed the importance of off loading and not staying her her wheel chair for long periods of time. Follow up two weeks. She is to call or come in sooner or go to the ED if she develops any issues or concerns.
== END 2022-04-22 23:59 | disposition home or self-care (01) ==
LOC: WC 13:45
PROVIDERS: PCP Internal Medicine; Visit Provider Nurse Practitioner Family
DX: E11.622 Type 2 diabetes mellitus with other skin ulcer (principal); L89.153 Pressure ulcer of sacral region, stage 3; L89.143 Pressure ulcer of left lower back, stage 3; L89.323 Pressure ulcer of left buttock, stage 3; G82.20 Paraplegia, unspecified; E11.65 Type 2 diabetes mellitus with hyperglycemia; S31.109A Unspecified open wound of abdominal wall, unspecified quadrant without penetration into peritoneal cavity, initial encounter; R60.0 Localized edema; Z99.3 Dependence on wheelchair; F17.200 Nicotine dependence, unspecified, uncomplicated; L03.116 Cellulitis of left lower limb; X58.XXXA Exposure to other specified factors, initial encounter
CPT/HCPCS: 11042

== ENCOUNTER 2022-05-02 13:11 | Outpatient (RCR) | payer MEDICARE, MEDICAID, SELFPAY ==
[2022-04-23 00:45] VITALS: BP 142/85; PULSE 79; RESP 20; TEMP 36.2; BMI 32.3
[2022-05-02 13:23] VITALS: BP 100/59; PULSE 76; RESP 20; TEMP 36.3; BMI 32.3
--- NOTE | 2022-05-02 16:09 | PN.PCM_ITS ---
History of Present Illness Date of Service: 05/02/22 Chief Complaint: Sore on left buttocks History of Wound: Patient was referred by her PRODUCTION CONTROL EXPEDITER, Dr. Nevarez for pressure ulcers on her left medial buttocks/ischial area. Patient is wheelchair bound. She has a significant medical history of DM type 2, multiple back surgeries which eventually caused her become a paraplegic. Patient is a very poor historian and keeps falling asleep during her appointment. Patient is not sure how long she has had the pressure sore on her left medial buttocks, she is guessing a few months. She has been placing a cream on this area. She is unsure what cream it is. The ulcer cluster is painful to palpation. She states she sits in her wheelchair often more than 8 hours per day and will sometimes fall asleep in her chair. She does not have a special cushion for her wheelchair. She sleeps in a regular hospital bed, not a low air loss mattress. This week she has a new area on her left buttocks and a cluster on left coccyx cluster. These areas look like pressure. Wound care - Wash daily with soap and water. Place Collagen Hydrogel and cover with gauze daily to the left ischial ulcer, left buttock ulcer and sacral cluster and to the left abdomen ulcer. Try to off load as much as possible and try to avoid sitting for long periods of time. Wound culture obtained on 02/21/22 had not growth. Wound culture obtained on 10/18/21 which were positive for MRSE and Anaerobic cocci. Completed Doxycycline and Flagyl. Progress of Wound: Right abdominal ulcer with increased non viable tissue in the wound bed. Left coccyx cluster, left buttock ulcer and left sacral culster ulcers are all stable. Not showing much improvement. Sthe needs to off load more. Objective Data Objective Data Vital Signs: Vital Signs Temp Pulse Resp BP 97.3 F L 76 20 H 100/59 L 05/02/22 13:23 05/02/22 13:23 05/02/22 13:23 05/02/22 13:23 Weight: 200 lb Body Mass Index (BMI) 32.3 Charges/Coding Procedures Integumentary 111xxx-113xx: [id number] Shila subq tissue 20 sq cm/< Debridement Note Debridement Note Wound debrided: Buttock/ischial ulcer Laterality: Left Type of Debridement: Excisional debridement Depth: Down to and including healthy tissue and in the subcutaneous layer Percentage of wound debrided: 100 Instrument Used: 3mm curette Tissue Removed: Devitalized tissue and slough Severity: Fat Layer Exposed Amount of bleeding with debridement: Mild Bleeding Controlled with: Pressure and Compression and gauze Patient tolerated procedure: Patient tolerated procedure well Post-Debridement Measurements and Additional Note: Post-Debridement Measurements/Treatment SCOTTY - Nurse 1 - General Ulcer Assessment Start: 05/02/22 13:23 Freq: Status: Active Protocol: TAISHA Activity Type Activity Date Activity User E-sign Co-sign Detail Recorded Client Recorded Date Recorded By Document 05/02/22 13:23 DL [id number] 05/02/22 13:39 DL 05/02/22 13:23 WC - Today's Visit Information Type of service Follow-up Visit (Physician/BEE TENDER ) Arrival Mode Wheelchair Transfer Assistance Manual Transfer Assist (Other) x3 Patient Identification Verified (Name & Yes ) Patient Requires Transmission-Based No Precautions Blood Sugar Stated by Patient Height and Weight Body Mass Index (BMI) 32.3 BMI Classification Obese Vital Signs Temperature (97.8 F-99.1 F) 97.3 F L Temperature Source Temporal Pulse Rate (60-100) 76 Pulse Location Monitor Respiratory Rate (12-18) 20 H Respiratory rate source Observation Blood Pressure (90/60-120/80) 100/59 L Blood Pressure Mean (mm Hg) 72 Source Monitor History Since Last Visit- (Skip if this is Patient's initial visit) Have you changed medications since your No last visit? Any new allergies or adverse reactions No Had a fall/change in ADL's that may No increase risk of falls Signs or symptoms of abuse and/or No neglect since last visit Have you been in the hospital since your No last visit? Has dressing in place as prescribed Yes Has compression in place as prescribed N/A Experienced any changes in pain level or No management Pain Scale: 0-10 Numeric Is Patient Pain Free? Yes SCOTTY Cartwright Nurse 1 - General Ulcer Measurement Start: 05/02/22 13:23 Freq: Status: Active Protocol: Activity Type Activity Date Activity User E-sign Co-sign Detail Recorded Client Recorded Date Recorded By Document 05/02/22 13:23 DL [id number] 05/02/22 13:39 DL 05/02/22 13:23 Wound Center Nurse 1 #4 Abdomen -Current Size (cm) - Length 1.6 -Current Size (cm) - Width 1.3 -Current Size (cm) - Depth 0.2 -Total Square Cm 2.08 -Photo Taken No -Exudate Amt Medium -Exudate Type Serosanguineous -Wound Margin Distinct, Outline Attached -Granulation Amt None Present (0 %) -Necrosis Amt Large (67-100%) -Necrotic Tissue Type Adherent Slough -Texture (Vivi-wound Skin Appearance) Scarring -Moisture (Vivi-wound Skin Appearance) No Abnormality -Color (Vivi-wound Skin Appearance) No Abnormality -Tenderness on Palpation (Vivi-wound No Skin Appearance) -Ulcer Cleansing Rinsed/ Irrigated with Saline -Foul Odor after Cleansing No -Anesthetic Used 5% Lidocaine Gel 3-coccyx cluster -Current Size (cm) - Length 0.2 -Current Size (cm) - Width 2.6 -Current Size (cm) - Depth 0.1 -Total Square Cm 0.52 -Exudate Amt None Present -Wound Margin Indistinct, Non -Visible -Granulation Amt Small (1-33%) -Granulation Quality [place] -Necrosis Amt None Present (0 %) -Structure Exposed N/A -Texture (Vivi-wound Skin Appearance) Scarring -Moisture (Vivi-wound Skin Appearance) No Abnormality -Color (Vivi-wound Skin Appearance) No Abnormality -Temperature (Vivi-wound Skin No Abnormality Appearance) (Pt Warm) -Tenderness on Palpation (Vivi-wound No Skin Appearance) -Ulcer Cleansing Rinsed/ Irrigated with Saline -Foul Odor after Cleansing No -Anesthetic Used 5% Lidocaine Gel 2-left buttuvks -Current Size (cm) - Length 0.1 -Current Size (cm) - Width 0.1 -Current Size (cm) - Depth 0.1 -Total Square Cm 0.01 -Photo Taken Yes -Exudate Amt None Present -Wound Margin Indistinct, Non -Visible -Granulation Amt Large (67-100%) -Granulation Quality [place] -Necrosis Amt None Present (0 %) -Structure Exposed N/A -Texture (Vivi-wound Skin Appearance) Scarring -Moisture (Vivi-wound Skin Appearance) No Abnormality -Color (Vivi-wound Skin Appearance) No Abnormality -Temperature (Vivi-wound Skin No Abnormality Appearance) (Pt Warm) -Tenderness on Palpation (Vivi-wound No Skin Appearance) -Ulcer Cleansing Wound Cleanser -Foul Odor after Cleansing No -Anesthetic Used 5% Lidocaine Gel #1 left ischium -Current Size (cm) - Length 1.8 -Current Size (cm) - Width 1.1 -Current Size (cm) - Depth 0.1 -Total Square Cm 1.98 -Exudate Amt None Present -Wound Margin Indistinct, Non -Visible -Granulation Amt Large (67-100%) -Granulation Quality [place] -Necrosis Amt None Present (0 %) -Structure Exposed N/A -Texture (Vivi-wound Skin Appearance) Scarring -Moisture (Vivi-wound Skin Appearance) No Abnormality -Color (Vivi-wound Skin Appearance) No Abnormality -Tenderness on Palpation (Vivi-wound No Skin Appearance) -Ulcer Cleansing Rinsed/ Irrigated with Saline -Foul Odor after Cleansing No -Anesthetic Used 5% Lidocaine Gel WC - Nurse 2 - General Ulcer CM Notes Start: 05/02/22 13:23 Freq: Status: Active Protocol: Activity Type Activity Date Activity User E-sign Co-sign Detail Recorded Client Recorded Date Recorded By Document 05/02/22 14:03 [id number] 05/02/22 14:10 ELLIE 05/02/22 14:03 Wound Center Nurse 2 #4 Abdomen -Time 14:05 -Correct Patient Yes -Correct Side, Site, Position Yes -Correct Procedure Yes -Procedure Performed Yes -Type of Procedure Debridement -Clinical Debridement Subcutaneous -Tissue Removed Subcutaneous -Post Debridement (cm) - Length 1.5 -Post Debridement (cm) - Width 1.5 -Post Debridement (cm) - Depth 0.2 -Total Square (Post) (cm) 2.25 -Area of Debridement (cm) - Length 1.5 -Area of Debridement (cm) - Width 1.5 -Total Square (Area) (cm) 2.25 -Tunneling No -Circular Undermining No -Wound/Ulcer Outcome Not Healed -Ulcer Cleansing Rinsed/ Irrigated with Saline -Foul Odor after Cleansing No -Bioengineered Tissue No -Bleeding Controlled with Pressure -Treatment Response Procedure Tolerated Well -Offloading No -Debridement - Subq, 1st 20sq cm Yes 3-coccyx cluster -Time 14:06 -Correct Patient Yes -Correct Side, Site, Position Yes -Correct Procedure Yes -Procedure Performed Yes -Type of Procedure Debridement -Clinical Debridement Subcutaneous -Tissue Removed Subcutaneous -Post Debridement (cm) - Length 0.5 -Post Debridement (cm) - Width 3.0 -Post Debridement (cm) - Depth 0.1 -Total Square (Post) (cm) 1.50 -Area of Debridement (cm) - Length 0.5 -Area of Debridement (cm) - Width 3.0 -Total Square (Area) (cm) 1.50 -Tunneling No -Undermining/Tunneling No -Circular Undermining No -Wound/Ulcer Outcome Not Healed -Ulcer Cleansing Rinsed/ Irrigated with Saline -Foul Odor after Cleansing No -Bioengineered Tissue No -Bleeding Controlled with Pressure -Treatment Response Procedure Tolerated Well -Offloading No -Debridement - Subq, 1st 20sq cm No 2-left buttuvks -Time 14:07 -Correct Patient Yes -Correct Side, Site, Position Yes -Correct Procedure Yes -Procedure Performed Yes -Type of Procedure Debridement -Clinical Debridement Subcutaneous -Tissue Removed Subcutaneous -Post Debridement (cm) - Length 0.5 -Post Debridement (cm) - Width 0.4 -Post Debridement (cm) - Depth 0.1 -Total Square (Post) (cm) 0.20 -Area of Debridement (cm) - Length 0.5 -Area of Debridement (cm) - Width 0.4 -Total Square (Area) (cm) 0.20 -Tunneling No -Undermining/Tunneling No -Circular Undermining No -Wound/Ulcer Outcome Not Healed -Ulcer Cleansing Rinsed/ Irrigated with Saline -Foul Odor after Cleansing No -Bioengineered Tissue No -Bleeding Controlled with Pressure -Treatment Response Procedure Tolerated Well -Offloading No -Debridement - Subq, 1st 20sq cm No #1 left ischium -Time 14:08 -Correct Patient Yes -Correct Side, Site, Position Yes -Correct Procedure Yes -Procedure Performed Yes -Type of Procedure Debridement -Clinical Debridement Subcutaneous -Tissue Removed Subcutaneous -Post Debridement (cm) - Length 1.5 -Post Debridement (cm) - Width 1.3 -Post Debridement (cm) - Depth 0.1 -Total Square (Post) (cm) 1.95 -Area of Debridement (cm) - Length 1.5 -Area of Debridement (cm) - Width 1.3 -Total Square (Area) (cm) 1.95 -Tunneling No -Undermining/Tunneling No -Circular Undermining No -Wound/Ulcer Outcome Not Healed -Ulcer Cleansing Rinsed/ Irrigated with Saline -Foul Odor after Cleansing No -Bioengineered Tissue No -Bleeding Controlled with Pressure -Treatment Response Procedure Tolerated Well -Offloading No -Debridement - Subq, 1st 20sq cm No Pain Scale: 0-10 Numeric Is Patient Pain Free? Yes WC - Nurse 3 - General Ulcer D/C NN Start: 05/02/22 13:23 Freq: Status: Active Protocol: Activity Type Activity Date Activity User E-sign Co-sign Detail Recorded Client Recorded Date Recorded By Document 05/02/22 14:45 DL [id number] 05/02/22 14:47 DL 05/02/22 14:45 Wound Care Nurse 3 #4 Abdomen -Ulcer Cleansing Rinsed/ Irrigated with Saline -Foul Odor after Cleansing No -Primary Dressing Applied C Hydrogel ($) -Other Dressing hydrogel today -Primary Dressing Covered/Secured with Dry Gauze, Secured with Tape 3-coccyx cluster -Ulcer Cleansing Rinsed/ Irrigated with Saline -Foul Odor after Cleansing No -Other Dressing hydrogel -Primary Dressing Covered/Secured with Dry Gauze, Secured with Tape 2-left buttuvks -Ulcer Cleansing Rinsed/ Irrigated with Saline -Foul Odor after Cleansing No -Other Dressing hydrogel -Primary Dressing Covered/Secured with Dry Gauze, Secured with Tape #1 left ischium -Ulcer Cleansing Rinsed/ Irrigated with Saline -Foul Odor after Cleansing No -Other Dressing hydrogel -Primary Dressing Covered/Secured with Dry Gauze, Secured with Tape Treatment Response Procedure Tolerated Well Pain Scale: 0-10 Numeric Is Patient Pain Free? Yes WC - Visit Discharge Discharge Condition Stable Ambulatory Status Wheelchair Facility Type Home Health Orders Sent Yes Additional Wound Wound debrided: Buttock ulcer Laterality: Left Wound Grade/Stage: Stage III Type of Debridement: Excisional debridement Anesthesia Used: 5% Lidocaine Gel Depth: Down to and including healthy tissue and in the subcutaneous layer Percentage of wound debrided: 100 Instrument Used: 3mm curette Tissue Removed: Devitalized tissue and slough Severity: Fat Layer Exposed Amount of bleeding with debridement: Mild Bleeding Controlled with: Compression and gauze Patient tolerated procedure: Patient tolerated procedure well Additional Wound Wound debrided: Coccyx cluster ulcer Laterality: Left Wound Grade/Stage: Stage III Type of Debridement: Excisional debridement Anesthesia Used: 5% Lidocaine Gel Depth: Down to and including healthy tissue and in the subcutaneous layer Percentage of wound debrided: 100 Instrument Used: 3mm curette Tissue Removed: Devitalized tissue and slough Severity: Fat Layer Exposed Amount of bleeding with debridement: Mild Bleeding Controlled with: Compression and gauze Patient tolerated procedure: Patient tolerated procedure well Additional Wound Wound debrided: abdomen wound Laterality: Right Type of Debridement: Excisional debridement Anesthesia Used: 5% Lidocaine Gel Depth: Down to and including healthy tissue and in the subcutaneous layer Percentage of wound debrided: 100 Instrument Used: - (scissors and pick ups) Tissue Removed: Devitalized tissue and slough Severity: Fat Layer Exposed Amount of bleeding with debridement: Mild Bleeding Controlled with: Pressure Patient tolerated procedure: Patient tolerated procedure well Operative Diagnosis: Wound bed with increased non viable tissue that was removed. Assessment/Plan Assessment/Plan (1) Decubitus ulcer of left perineal ischial region, stage 3: CODE(S): L89.323 - Pressure ulcer of left buttock, stage 3 (2) Decubitus ulcer of left buttock, stage 3: CODE(S): L89.323 - Pressure ulcer of left buttock, stage 3 (3) Decubitus ulcer of coccygeal region, stage 3: CODE(S): L89.153 - Pressure ulcer of sacral region, stage 3 (4) Wound, open, abdominal wall, anterior: CODE(S): S31.109A - Unspecified open wound of abdominal wall, unspecified quadrant without penetration into peritoneal cavity, initial encounter (5) Diabetes mellitus type 2, uncontrolled, without complications: CODE(S): E11.65 - Type 2 diabetes mellitus with hyperglycemia (6) Tobacco use disorder: CODE(S): F17.200 - Nicotine dependence, unspecified, uncomplicated (7) Paraplegia: CODE(S): G82.20 - Paraplegia, unspecified (8) Cellulitis of left leg: CODE(S): L03.116 - Cellulitis of left lower limb (9) Edema of both lower legs: CODE(S): R60.0 - Localized edema PLAN: Plan Patient was seen and evaluated in the wound center today. A subcutaneous debridement was performed on her left ischial ulcer, left buttock ulcer and left coccyx ulcer cluster and right anterior abdomen. She has continued to sit/sleep in her wheelchair for long periods of time, but with her new wheelchair she is able to tilt the seat back to help off load. Patient encouraged to off load frequently and to avoid sitting in her wheel chair for longer than 2 hours at a time. Wound care - Wash daily with soap and water daily. Place collagen hydrogel covered adaptic and topped with gauze daily to all her ulcer areas. Will have her wash with chlorhexidine twice weekly but she is not to use it on her mucous membrane areas. Stressed the importance of off loading and not sitting in her chair too long. She also avoid laying on her back in bed for long periods of time because that is probably contributing to the coccyx area becoming pink and dry. Wound culture obtained 02/21/22 which was negative for bacterial growth. Wound culture obtained on 10/18/21 which were positive for MRSE and Anaerobic cocci. She completed Doxycycline and Flagyl. Encourage diet high in protein, low in carbohydrates. Encouraged increase in Vitamin C to 1,000 mg/day. Due to her history of diabetes and being a paraplegia, she is at increased risk for delayed wound healing, especially since she does not off load as she should. Stressed the importance of off loading and not staying her her wheel chair for long periods of time. Follow up two weeks. She is to call or come in sooner or go to the ED if she develops any issues or concerns.
== END 2022-05-23 23:59 | disposition home or self-care (01) ==
LOC: WC 13:11
PROVIDERS: PCP Internal Medicine; Visit Provider Nurse Practitioner Family
DX: E11.622 Type 2 diabetes mellitus with other skin ulcer (principal); L89.153 Pressure ulcer of sacral region, stage 3; L89.143 Pressure ulcer of left lower back, stage 3; L89.323 Pressure ulcer of left buttock, stage 3; G82.20 Paraplegia, unspecified; L98.492 Non-pressure chronic ulcer of skin of other sites with fat layer exposed; E11.65 Type 2 diabetes mellitus with hyperglycemia; R60.0 Localized edema; F17.200 Nicotine dependence, unspecified, uncomplicated; Z99.3 Dependence on wheelchair; L03.116 Cellulitis of left lower limb
CPT/HCPCS: 11042

== ENCOUNTER 2022-05-10 12:30 | Outpatient (RCR) | payer MEDICARE, MEDICAID, SELFPAY ==
--- NOTE | 2021-11-17 10:45 | HP.PTEVAL ---
Patient's Visit Information CONRADO RAMAN is a 61 year old F referred to Physical Therapy by Dr. Will Comer MD with a diagnosis of paraplegia, postlami syndrome, spondylosis, Disc DDD. Date of Evaluation: 11/16/21 Physical Therapist: DAYLIN Arroyo - Visit Plan Frequency: 1-2x /Week Duration: 6 Weeks Plan: 1-2X/ week for postural exercises, stretching for posture, core stability to be able to sit upright in the chair better with HEP. - Subjective Pt was having a back surgery and the Dr pinched her spine between 2 vertebrea and left her paralized. She had to learn how to go to the bathroom again. She worked hard to get where she is. Pt reports that they are trying to get her a tilting wheelchair and she needs to go through PT to find out what is going on with her. She is not sure what is going on. She has been in a wheelchair for close to 3.5 years. She lives in an apartment with her daughter. She gets into bed at night with standing pivot into the bed. Her R side works a little but her L side does not work at all. She uses her hands and arms to lift herself. Pt does leg lifts at home. She does light housework. She has 3rd degree ulcers on her bottom and goes to the wound center for debridement. Pt has leg swelling with fluid leakage also and that is another reason she needs to elevate her legs and to help with the pressure sores on her bottom. To sit hurts and then she has to lay down and then she can only tolerate that for a little and then it hurts so bad so she has to sit up. She only got 3 hours of sleep last night without having to get up crying because of her back. - Pain back pain Pain Intensity (Out of 10): 8 - Objective Pt drives back in her wheelchair to the dept with flexed trunk and fw head posture looking down at the ground. Posture: sits in her chair with extremely flexed trunk and rounded back and extreme flexion of spine and flexed neck. It hurts so bad to sit upright but is able to do so with the use of her arms to help. Pt is able to shift in her chair FW and some BW and very little R and L lateral shifts. Palpation: pt has part of her spine that sticks out (upper lumbar) that makes her uncomfortable to sit up straight a lot of the time as well as pressure sores on her buttocks which she is getting looked at by the wound center. Pt not able to heel and toe raise sitting in her chair and very little ankle movement present. Pt has a lot of LE edema with leakage and has a wound on her L diego due to all the edema. Pt is able to do 3/4 normal ROM LAQ on the R with no fluid motion and 1/4 normal ROM LAQ on the L. With help therapist tried to stretch pt's hamstrings and she has tight HS in LAQ position with the L being worse than the R. In supine pt was not able to straighten her legs (approx 30 degree contracture). Pt was able to keep her legs on the wheelchair foot plate and slide over to the mat table using mostly UE's to help get her over. She struggled with sliding along the mat table and needed mod A to get her from a seated position to a supine position (she usually has a trapeze at home to help with this). She needed to use her UE's to help her legs to get up onto the mat table and has a weak core that she had to use her other arm to help stabilize her to do this. She was unable to lay flat on the mat table without approx 5 pillows under her back , head and under her R buttock to relieve the pain from, the pressure sores. Pt was able to get up to a seated position on the mat table with using mostly her UE's to get there. On the mat table pt was not able to do a bridge and not able to roll to her side (uses trapeze at home). - Balance/Special Test Scores Oswestry Low Back Score: 40 - Goals Goal 1:: I HEP Goal Time Frame: 4-6 Weeks Goal 2:: Be able to sit up straighter during PT sessions Goal Time Frame: 4-6 Weeks Goal 3:: Pt to drive back to the dept sitting with upright posture and not looking at the ground to help to be able to see where going and decrease overall pain related to posture. Goal Time Frame: 4-6 Weeks Goal 4:: Decrease postural related back pain by 50% Goal Time Frame: 4-6 Weeks - Rehabilitation Potential Rehabilitation Potential: Fair - Anticipated Interventions Patient/Client Instruction: Educate patient on: Condition, Plan of Care For the Purpose of:: To decrease pain, To increase ROM, To improve nutrient delivery to tissue, To improve muscle performance and motor function, To improve ability to perform ADL's, To increase tolerance to activity/condition/position, To improve performance and independence with ADL's, To improve ability of physical actions for home/community/work/leisure, To improve health of tissue, To decrease soft tissue restriction, To increase flexibility/ROM, To improve balance Therapeutic Exercise to Include: Strength training, Endurance training, Balance training, Body mechanics, Postural training, Flexibilty training, Neuromotor development, Passive ROM, Active ROM, Dynamic Lumbar Stabilization, Scapular Strength/Stabilization For the Purpose of:: To decrease pain, To increase ROM, To improve nutrient delivery to tissue, To improve muscle performance and motor function, To improve ability to perform ADL's, To increase tolerance to activity/condition/position, To improve performance and independence with ADL's, To decrease level of supervision to perform tasks, To improve ability of physical actions for home/community/work/leisure, To improve health of tissue, To decrease soft tissue restriction, To increase flexibility/ROM Manual Therapy Techniques to Include: Soft tissue mobilization For the Purpose of:: To improve nutrient delivery to tissue, To improve muscle performance and motor function, To improve ability to perform ADL's, To increase tolerance to activity/condition/position, To improve performance and independence with ADL's, To improve ability of physical actions for home/community/work/leisure, To improve health of tissue, To decrease soft tissue restriction, To increase flexibility/ROM, To improve balance Thank you for the opportunity to evaluate your patient. For Medicare and Medicare HMO plans, please review the plan of care and approve it. It will need to be FAXED BACK to us at [phone] for Medicare purposes. For Medicare only, by signing this I certify the plan of care. Please let me know if there are questions or concerns regarding this plan of care. Physician Signature: Date:
--- NOTE | 2021-11-24 10:16 | HP.OTEVAL ---
Patient's Visit Information CONRADO RAMAN is a 61 year old F, referred to Occupational Therapy by Dr. Will Comer MD, with a diagnosis of Paraplegia, postlaminectomy, spondylosis, disc degeneration. Date of Evaluation: 11/16/21 Occupational Therapist: Lexie Ibrahim, JONATHAN/Mary, CHT - Subjective Pt. is a 61 year old female who has been referred for power tilt in space wheelchair assessment. Pt. reporting she has had degenerative back disease for at least 12 years and seeing pain mgt Dr. Comer. She then had back sx (Dr. Mendiola) about 3 1/2 years ago which she reports did not work and her legs were paralyzed. She is currently still seeing Dr. Comer. Pt. has bed sores and a 3rd degree ulcer on her buttock. Pt. has paraplegia, postlaminectomy, spondylosis, & diabetic. - ADLs Comments: sponge bathing with help from aide daily (Max A) Comments: uses a BSC, Mod I Comments: She is able to don/doff nightgown. Does not sleep well at night, secondary to back pain. But can't sit up for long periods of time secondary to pressure sores on buttocks. She has difficulty with sitting up to complete ADL tasks. Her daughter (36 y/o cares for mom) lives with her, 2 story apartment, loves it there has pets, friends made a wooden ramp for her. L hand dominant. She has a home health aide twice a day 2 hours in the morning and 2 hours in the evening. She has a hospital bed with a trapeze bar. She uses [employer] to lean back and take pressure off back and rear end, distributes her pressure. - Pain Back 8 - Objective pt. has kyphotic posture secondary to pain in back and buttocks. She prefers to lean on table, and dozes off. - ROM ROM Comments: Demonstrated BUE ROM WFL - Strength Shoulder: B strength fair Elbow: B strength Fair + Digital Hardware Design Engineer: L 40# R 25# Strength Comments: Pt. demo'd good UB strength with pushing up from mat table to complete stand pivot (squat pivot) transfer to power chair at Mod I level. - Edema Other: swelling in BLE's, Pt. reports having weeping legs at times - Sensation Sensation Comments: All digits 3.84 using semmes shyam monofilament test which indicates mild deficit with sensation. Denied numbness and tingling - Transfers Transfers: Pt. can complete stand pivot transfers at Mod I level from higher surfaces from mat table to power wc. - Rehabilitation General Assessment: Pt. has paraplegia, postlaminectomy, spondylosis without myelopathy or radiculopathy, lumbar region, intervertebral disc degeneration & diabetes. She was referred by Dr. Comer for a power recline wheelchair. Pt. has difficulty with correct posture for sitting position as she leans forward secondary to back pain and ulcer on buttock. Her current power wheel chair does not allow her to change upright positions to recline/tilt back to offload her weight to prevent more pressure sores. She would benefit from a power wheelchair that allows her to change position throughout the day to allow for healing of current pressure sore and improve her overall quality of life. Pt. verbalized understanding of pressure relief to heal pressure sores. Therapy session was directly supervised and doc. reviewed and approved by Lexie CASTILLO/Mary,CHT. - Visit Plan General Plan: The power recline wheelchair will allow her to independently to initiate weight shifting, decrease associated pain with prolonged seated position, decrease pressure sores and allow for healing of the current pressure sore. She is at high risk for pressure ulcers secondary to paraplegia and intervertebral disc degeneration diagnoses. The tilt back feature is necessary to increase sitting tolerance throughout the day and accommodate pressure relief of bony protrusions of spine and buttocks. The headrest, cushioned will assist with keeping pt. spine in alignment, decreasing neck strain when in a reclined position. The head rest can also increase her line of sight during community mobility. A safety belt/pelvic strap will assist with proper body positioning. The seat belt will decrease hips from sliding forward when participating in community mobility on uneven surfaces & wc ramps. TEXT: Thank you for the opportunity to evaluate your patient. For Medicare and Medicare HMO plans, please review the plan of care and approve it. It will need to be FAXED BACK to us at [phone] for Medicare purposes. Please let me know if there are questions or concerns regarding this plan of care. Physician Signature: Date:
--- NOTE | 2022-01-18 12:59 | HP.PTREVAL ---
Dr. Will Comer MD, It has been my pleasure to treat CONRADO RAMAN over the last 8 visits for paraplegia, postlami syndrome, spondylosis, Disc DDD. Please see the progress note below for an update on the physical therapy plan of care! Subjective: Pt not feeling good mentally, physically etc. She had shots in her back last time and she has had major problems since and has had shooting pain everywhere in her sides, hips and hurts to bend. The Dr has her on strong meds and it is not working. She has not talked to him other than to tell him that it did not work a few days afterwards. She sees him on the . She is trying to do her therapy but some of it makes her painful. She tries to stay moble. She can only do a few exercises at a time and can not do it all at once. Before the shot she felt she was 25% but now since the shot she is so much worse. Objective/Function: Pt is sitting more upright than she was at her initial evaluation and able to now look more ahead at where she is going when moving her wheelchair instead of at the ground. Posture: sits with rounded posture and extreme FW head still unless cued tactile or verbally. Overall improvement noted. Pt increase pain since the injection is making her unable to complete her whole HEP at one sitting but can spread out the exercises throughout the day. Plan Plan: Request additional visits 1X/ week for 4-8 more weeks to work on postural exercises, stretching for posture, core stability/thoracic/cervical to be able to sit upright in the chair better with HEP. Balance/Gait/Functional tests - Balance/Special Test Scores Oswestry Low Back Score: 40 Goals Goal 1:: I HEP Goal Time Frame: 4-6 Weeks Goal Progress: Goal Met Goal 2:: Be able to sit up straighter during PT sessions Goal Time Frame: 4-6 Weeks Goal Progress: Progressing Goal 3:: Pt to drive back to the dept sitting with upright posture and not looking at the ground to help to be able to see where going and decrease overall pain related to posture. Goal Time Frame: 4-6 Weeks Goal Progress: Progressing Goal 4:: Decrease postural related back pain by 50% Goal Time Frame: 4-6 Weeks Goal Progress: Not Progressing Anticipated Interventions Patient/Client Instruction: Educate patient on: Condition, Plan of Care For the Purpose of:: To decrease pain, To increase ROM, To improve nutrient delivery to tissue, To improve muscle performance and motor function, To improve ability to perform ADL's, To increase tolerance to activity/condition/position, To improve performance and independence with ADL's, To improve ability of physical actions for home/community/work/leisure, To improve health of tissue, To decrease soft tissue restriction, To increase flexibility/ROM, To improve balance Therapeutic Exercise to Include: Strength training, Endurance training, Balance training, Body mechanics, Postural training, Flexibilty training, Neuromotor development, Passive ROM, Active ROM, Dynamic Lumbar Stabilization, Scapular Strength/Stabilization For the Purpose of:: To decrease pain, To increase ROM, To improve nutrient delivery to tissue, To improve muscle performance and motor function, To improve ability to perform ADL's, To increase tolerance to activity/condition/position, To improve performance and independence with ADL's, To decrease level of supervision to perform tasks, To improve ability of physical actions for home/community/work/leisure, To improve health of tissue, To decrease soft tissue restriction, To increase flexibility/ROM Manual Therapy Techniques to Include: Soft tissue mobilization For the Purpose of:: To improve nutrient delivery to tissue, To improve muscle performance and motor function, To improve ability to perform ADL's, To increase tolerance to activity/condition/position, To improve performance and independence with ADL's, To improve ability of physical actions for home/community/work/leisure, To improve health of tissue, To decrease soft tissue restriction, To increase flexibility/ROM, To improve balance Please do not hesitate to contact me at [phone] by phone or if you have questions or concerns regarding this new plan of care! Sincerely, DAYLIN Arroyo
--- NOTE | 2022-04-13 13:46 | HP.PTREVAL_ITS ---
Dr. Will Comer MD, It has been my pleasure to treat CONRADO RAMAN over the last 16 visits for paraplegia, postlami syndrome, spondylosis, Disc DDD. Please see the progress note below for an update on the physical therapy plan of care! Subjective: pt has 20 units left until 05-24-22 (she has had 16 units as of today). Pt reports that she can not get here more than once a week due to other appts. Pt feels that PT is helping. She thinks that she is stronger. She feels that she can lift more and her endurance is better. She is doing more around the house because of her increase in durability. She feels that her posture has been a lot better. She notices that when she is out and about she has been looking more at the ground cause she does not want to hit sticks etc. She has been trying to be better about not looking down so far. Pt reports that her hips have been killing her because of her hip pain and she got some injections and they are not helping much. She is having spasms in her hip blayne if she lays down. Pt feels that she has better days and pain is not as bad as it was before but still has some bad days. Dr does not feel that there is anything on X-ray wrond with her hips Objective/Function: R knee ext 10# L knee ext 7.5#. R knee flex 5.5# and L knee flex 5.7#. R hip flex 4.3# and L hip flex 3#. R hip abd in chair 4# and L hip abd in chair 4.4#. R shouler flex 7.8# and L shoulder flex 7.8#. Posture: still sits with rounder shoulders and head in flexion but is able to keep head up longer than during the inital eval. Plan Plan: Encourage pt to try 2X/ week but says she is unable to do that at this time but then once we were scheduling she said she would try and do twice a week. 1-2X/ week for 5-8 weeks (20 units left) to continue with postural exercises/strength and stretching and add some LE strengthening to see if we can make her legs stronger for functional transfers and help with hip pain. Balance/Gait/Functional tests - Balance/Special Test Scores Oswestry Low Back Score: 30 Goals Goal 1:: I HEP Goal Time Frame: 4-6 Weeks Goal Progress: Goal Met Goal 2:: Be able to sit up straighter during PT sessions Goal Time Frame: 4-6 Weeks Goal Progress: Progressing Goal 3:: Pt to drive back to the dept sitting with upright posture and not looking at the ground to help to be able to see where going and decrease overall pain related to posture. Goal Time Frame: 4-6 Weeks Goal Progress: Progressing Goal 4:: Decrease postural related back pain by 50% Goal Time Frame: 4-6 Weeks Goal Progress: Not Progressing Goal 5:: Increase UE and LE strength (at time of the eval: R knee ext 10# L knee ext 7.5#. R knee flex 5.5# and L knee flex 5.7#. R hip flex 4.3# and L hip flex 3#. R hip abd in chair 4# and L hip abd in chair 4.4#. R shouler flex 7.8# and L shoulder flex 7.8#) Goal Time Frame: 8-12 Weeks Anticipated Interventions Patient/Client Instruction: Educate patient on: Condition, Plan of Care For the Purpose of:: To decrease pain, To increase ROM, To improve nutrient delivery to tissue, To improve muscle performance and motor function, To improve ability to perform ADL's, To increase tolerance to activity/condition/position, To improve performance and independence with ADL's, To improve ability of physical actions for home/community/work/leisure, To improve health of tissue, To decrease soft tissue restriction, To increase flexibility/ROM, To improve balance Therapeutic Exercise to Include: Strength training, Endurance training, Balance training, Body mechanics, Postural training, Flexibilty training, Neuromotor development, Passive ROM, Active ROM, Dynamic Lumbar Stabilization, Scapular Strength/Stabilization For the Purpose of:: To decrease pain, To increase ROM, To improve nutrient delivery to tissue, To improve muscle performance and motor function, To improve ability to perform ADL's, To increase tolerance to activity/condition/position, To improve performance and independence with ADL's, To decrease level of supervision to perform tasks, To improve ability of physical actions for home/community/work/leisure, To improve health of tissue, To decrease soft tissue restriction, To increase flexibility/ROM Manual Therapy Techniques to Include: Soft tissue mobilization For the Purpose of:: To improve nutrient delivery to tissue, To improve muscle performance and motor function, To improve ability to perform ADL's, To increase tolerance to activity/condition/position, To improve performance and indep endence with ADL's, To improve ability of physical actions for home/community/work/leisure, To improve health of tissue, To decrease soft tissue restriction, To increase flexibility/ROM, To improve balance Please do not hesitate to contact me at [phone] by phone or if you have questions or concerns regarding this new plan of care! Sincerely, Susie Holt, MPT
== END 2022-05-10 19:00 | disposition home or self-care (01) ==
LOC: PT 12:30
PROVIDERS: PCP Internal Medicine; Referring Provider Anesthesiology Pain Medicine; Visit Provider Anesthesiology Pain Medicine
DX: G82.20 Paraplegia, unspecified (principal); M96.1 Postlaminectomy syndrome, not elsewhere classified; M47.816 Spondylosis without myelopathy or radiculopathy, lumbar region; M51.37 Other intervertebral disc degeneration, lumbosacral region; M47.896 Other spondylosis, lumbar region; M51.36 Other intervertebral disc degeneration, lumbar region
CPT/HCPCS: 97110; 97162; 97167; 97530

== ENCOUNTER 2022-05-17 13:04 | Inpatient (IN) | payer MEDICARE, MEDICAID, SELFPAY ==
[2022-05-17] VITALS (10 sets, daily range): BP systolic 93–132; BP diastolic 60–82; PULSE 73–94; RESP 13–18; TEMP 36.6–36.8; O2SAT 96–98; BMI 29.9; BMI 29.6
--- NOTE | 2022-05-17 14:03 | EX.ED.DYSGE1 ---
HPI History of Present Illness Chief Complaint: Alt LOC Narrative Narrative: 62-year-old female here for change in mental status. History of COPD, GERD, hypothyroidism. The patient is accompanied by her daughter. Daughter provides majority history. Daughter states patient's been having 1 weeks worth of intermittent confusion. Denies any alleviating factors, symptoms are constant, described as severe, there is no radiation component endorsed. Denies any recent falls. Denies any fever. Denies any focal weakness. 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, lumbar region Paraplegia Primary generalized (osteo)arthritis Spinal stenosis, lumbar region without neurogenic claudication Home Medications topiramate 25 mg tablet 25 mg PO BID pain 02/16/18 [History Last Taken 09/24/20] obznhmmhptxa-gmbefvdn-wvzksz tablet (Cerovite Senior) 1 tab PO DAILY supplement 02/26/18 [History Last Taken 09/23/20] atorvastatin 20 mg tablet 20 mg PO QHS cholesterol 08/08/19 [History Last Taken 09/23/20] levothyroxine 150 mcg tablet 150 mcg PO DAILY thyroid 09/17/20 [History Last Taken 09/24/20] pantoprazole 40 mg tablet,delayed release 40 mg PO BID PRN stomach 09/17/20 [History Last Taken 09/24/20] acetaminophen 500 mg tablet 500 mg PO Q6H PRN Pain 1-10 Or Fever 10/08/20 [History Last Taken Unknown] albuterol sulfate 90 mcg/actuation aerosol inhaler 2 puff inhalation Q4H PRN PRN Sob &/Or Wheezing 10/08/20 [History Last Taken Unknown] ipratropium 20 mcg-albuterol 100 mcg/actuation mist for inhalation (Combivent Respimat) 1 puff inhalation Q6H PRN Shortness Of Breath Or Wheezing 10/08/20 [History Last Taken Unknown] methadone 10 mg tablet 10 mg PO Q12H PAIN MANAGEMENT 10/08/20 [History Last Taken Unknown] betamethasone valerate 0.1 % topical cream 1 applic topical BID PRN skin irritation #15 grams 01/15/21 [Rx Last Taken Unknown] cetirizine 10 mg tablet 10 mg PO DAILY #30 tabs 01/15/21 [Rx Last Taken Unknown] gabapentin 300 mg capsule 600 mg PO BID nerve pain 01/15/21 [History Last Taken Unknown] lorazepam 1 mg tablet 1 mg PO BID PRN anxiety #60 tabs 01/15/21 [Rx Last Taken Unknown] potassium chloride 10 mEq tablet,extended release 10 meq PO DAILY #30 tabs 01/15/21 [Rx Last Taken Unknown] hydrocolloid dressing 4 X 4 (DuoDERM CGF Adhesive Border Dressing) #5 ea 09/07/21 [Rx Last Taken Unknown] ondansetron 4 mg disintegrating tablet 4 mg PO Q8H PRN nausea and vomiting 5 days #14 tabs 10/27/21 [Rx Last Taken Unknown] biotin 1 mg tablet 1 mg PO DAILY SUPPLEMENT 05/17/22 [History Last Taken Unknown] calcium citrate 250 mg PO DAILY SUPPLEMENT 05/17/22 [History Last Taken Unknown] cholecalciferol (vitamin D3) 25 mcg (1,000 unit) capsule 25 mcg PO DAILY SUPPLEMENT 05/17/22 [History Last Taken Unknown] cyanocobalamin (vitamin B-12) 1,000 mcg tablet 1,000 mcg PO DAILY SUPPLEMENT 05/17/22 [History Last Taken Unknown] dextran 70-hypromellose 0.1 %-0.3 % eye drops (Artificial Tears (dextran 70-hypromellose)) 1 drp ophthalmic (eye) TID DRY EYES 05/17/22 [History Last Taken Unknown] duloxetine 30 mg capsule,delayed release 30 mg PO DAILY 05/17/22 [History Last Taken Unknown] ferrous sulfate 325 mg (65 mg iron) tablet 325 mg PO DAILY SUPPLEMENT 05/17/22 [History Last Taken Unknown] fluticasone propionate 50 mcg/actuation nasal spray,suspension 2 spray intranasal DAILY ALLERGIES 05/17/22 [History Last Taken Unknown] furosemide 20 mg tablet 20 mg PO BID FLUID 05/17/22 [History Last Taken Unknown] gabapentin 300 mg capsule 900 mg PO QHS NERVE PAIN 05/17/22 [History Last Taken Unknown] lidocaine 5 % topical cream (AneCream5) 1 applic topical TID PRN Pain 05/17/22 [History Last Taken Unknown] metolazone 2.5 mg tablet 2.5 mg PO DAILY FLUID 05/17/22 [History Last Taken Unknown] mupirocin 2 % topical ointment 1 applic topical DAILY PRN Wound Care 05/17/22 [History Last Taken Unknown] nystatin 100,000 unit/gram topical cream 1 applic topical BID RASH 05/17/22 [History Last Taken Unknown] oxycodone-acetaminophen 5 mg-325 mg tablet 1 tab PO BID PRN Pain 05/17/22 [History Last Taken Unknown] polyethylene glycol 3350 17 gram/dose oral powder 17 g PO DAILY CONSTIPATION 05/17/22 [History Last Taken Unknown] sennosides 8.6 mg tablet (Senna Lax) 8.6 mg PO DAILY STOOL 05/17/22 [History Last Taken Unknown] tizanidine 4 mg tablet (Zanaflex) 4 mg PO BID PRN MUSCLES 05/17/22 [History Last Taken Unknown] valacyclovir 500 mg tablet (Valtrex) 500 mg PO DAILY 05/17/22 [History Last Taken Unknown] Allergy/AdvReac Type Severity Reaction Status Date / Time NSAIDS (Non-Steroidal Allergy GASTRIC Verified 05/17/22 13:11 Anti-Inflamma BYPASS trazodone AdvReac Other Verified 05/17/22 13:11 Family History Father Diabetes Hypertension Myocardial infarction Alcoholism Brother Myocardial infarction Alcoholism Mother CVA (cerebral vascular accident) Surgical History H/O dilation and curettage H/O gastric bypass History of bilateral salpingo-oophorectomy History of cholecystectomy Hydradenitis S/P arthroscopic knee surgery S/P lumbar spine operation s/p nerve spine surgery s/p upper back surgery skin graft Social History Smoking Status: Current every day smoker tobacco type: cigarettes alcohol intake: never substance use type: does not use caffeine: Yes what type of physical activity do you participate in: none seatbelt use: always do you feel safe at home: Yes additional social history: ROS ROS ED ROS Narrative Constitutional: Denies fever HEENT: Denies sore throat Neck: Denies neck pain Cardiovascular: Denies chest pain, syncope Respiratory: Denies shortness of breath GI: Denies nausea vomiting or abdominal pain : Denies changes in urinary habits Musculoskeletal: Denies muscle or joint pain Neurologic: Denies numbness weakness or loss of sensation. Endorses change in mental status Skin denies rash EXAM Physical Exam Narrative Exam Narrative: Nursing triage notes reviewed, Vital signs reviewed Constitutional: please see mdm HENT: MMM Eyes: Pupils equal round and reactive to light, Extraocular muscles intact Neck: No stridor, no JVD, full neck ROM Lungs: Clear to auscultation, No wheezing or rales. No increased work of breathing, no conversational dyspnea, no accessory muscle use, no nasal flaring. No respiratory distress noted Heart: Regular rate and rhythm, No murmurs, No rubs and No gallops, 2+ distal pulses (radial, femoral, posterior tibial) in all extremities Abdomen: Soft, there is no tenderness, rigidity, rebound or guarding, no obvious peritoneal signs, no palpable pulsatile abdominal masses, no auscultated abdominal bruit : No CVAT Extremities: 2+ edema with areas of confluent erythema consistent with cellulitis noted no crepitus or bullae noted Neuro: No focal neurological deficits, the patient was alert and oriented x3 on my initial exam, alert and orient x2 on subsequent exams. Nerves II through XII intact, 5/5 strength in all extremities. Intact sensation to light touch in all extremities, 2+ reflexes bilateral patella dens. No ataxia. Skin: Cellulitic changes to bilateral lower extremities with no crepitus or bullae noted Const Vital Signs: 05/17/22 13:05 05/17/22 14:25 05/17/22 15:05 Temperature 97.8 F Temperature Source Temporal Pulse Rate 94 90 81 Respiratory Rate 16 16 14 Blood Pressure 115/69 99/69 105/79 Blood Pressure Mean 84 79 87 Pulse Ox 96 96 96 Oxygen Delivery Method Room Air Room Air Room Air 05/17/22 16:05 05/17/22 17:02 05/17/22 18:03 Temperature Temperature Source Pulse Rate 81 84 73 Respiratory Rate 16 13 16 Blood Pressure 129/82 H 127/79 H Blood Pressure Mean 97 95 Pulse Ox 98 97 97 Oxygen Delivery Method Room Air Room Air Room Air 05/17/22 19:09 Temperature Temperature Source Pulse Rate 80 Respiratory Rate 14 Blood Pressure 111/60 Blood Pressure Mean 77 Pulse Ox 97 Oxygen Delivery Method Room Air MDM MDM MDM Narrative Medical decision making narrative: 62-year-old female accompanied by daughter with a chief complaint of confusion for the last week. Patient has no complaints she is alert and orient x3 did not observe any focal neurologic deficits my initial exam she is initially hemodynamically stable afebrile and nontoxic-appearing. Given her report of confusion I did obtain a broad lab and imaging work-up to further elucidate etiology of patient complaints. Specifically obtained a CT scan of the head rule out ICH or mass. Obtained a chest x-ray without pneumonia, urine to rule out UTI. Obtain VBG to rule out CO2 retention given history of COPD. Obtained a labs rule out ACS, anemia, electrode abnormalities or pancreatitis. Labs with evidence of dehydration, hypokalemia-Po natremia. CT scan was negative for acute intracranial pathology. EKG troponin unremarkable for myocardial ischemia. No evidence of pancreatitis. Given the patient's alteration mental status, age multiple comorbidities signs of dehydration she was given a normal saline bolus. Of note there was difficulty obtaining IV access VBG is pending at this time. VBG resulted after placing another line by nursing. VBG without significant CO2 retention. Given the patient's confusion, advanced age, multiple comorbidities, acute kidney injury and hypokalemia I felt the patient deserves inpatient admission for hydration, labs trending, further evaluation of confusion. Discussed this with the medicine physician Dr. Coronel who suggested he keep the patient in the emergency department obtain a BMP after 2 L total fluid bolus. If the patient was still confused, if her VLADISLAV did not improve he would then be willing to accept the patient to the floor. Lab Data Attestation: I reviewed the patient's lab results. Lab results narrative: CBC without leukocytosis, severe anemia, no thrombocytopenia. BMP with hyponatremia, hypokalemia, no anion gap to suggest endorgan hypoperfusion, VLADISLAV Troponin is negative, no evidence of myocardial ischemia Lipase is wnl indicating no pancreatic inflammation. UA with evidence of mild inflammation no obvious evidence of UTI likely asymptomatic inflammation given patient has no frequency urgency or dysuria Labs: Laboratory Results - last 24 hr 05/17/22 05/17/22 05/17/22 13:14 13:14 14:00 WBC 8.5 RBC 4.39 Hgb 13.4 Hct 40.4 MCV 92.0 MCH 30.5 MCHC 33.2 RDW Std Deviation 46.7 H RDW Coeff of Jarrod 13.8 Plt Count 231 MPV 11.0 Immature Gran % (Auto) 0.600 Neut % (Auto) 51.4 Lymph % (Auto) 37.1 [place] % (Auto) 7.0 Eos % (Auto) 3.5 Baso % (Auto) 0.4 Absolute Neuts (auto) 4.4 Absolute Lymphs (auto) 3.14 Nucleated RBC % 0 Sodium 135 L Potassium 3.2 L Chloride 100 Carbon Dioxide 29.0 Anion Gap 6 BUN 82 H Creatinine 2.07 H Estim Creat Clear Calc 26.72 Est GFR (MDRD) Af Amer 31 L Est GFR (MDRD) Non-Af 26 L BUN/Creatinine Ratio 39.6 H Glucose 83 Calcium 10.0 Troponin I High Sens 13 Lipase 138 Urine Color Yellow Urine Clarity Sl. Cloudy Urine pH 5.0 Ur Specific [place] 1.015 Urine Protein 15 H Urine Glucose (UA) Normal Urine Ketones 5 H Urine Occult Blood Negative Urine Nitrite Negative Urine Bilirubin 3 H Urine Urobilinogen 1 H Ur Leukocyte Esterase 25 H Urine RBC 0 SEEN Urine WBC 0-5 SEEN Ur Squamous Epith Cells 0-5 SEEN Urine Bacteria 1+ Urine Mucus 0 SEEN 05/17/22 17:50 WBC RBC Hgb Hct MCV MCH MCHC RDW Std Deviation RDW Coeff of Jarrod Plt Count MPV Immature Gran % (Auto) Neut % (Auto) Lymph % (Auto) [place] % (Auto) Eos % (Auto) Baso % (Auto) Absolute Neuts (auto) Absolute Lymphs (auto) Nucleated RBC % Sodium 136 Potassium 3.9 Chloride 107 Carbon Dioxide 24.0 Anion Gap 5 BUN 78 H Creatinine 1.82 H Estim Creat Clear Calc 30.39 Est GFR (MDRD) Af Amer 36 L Est GFR (MDRD) Non-Af 30 L BUN/Creatinine Ratio 42.9 H Glucose 76 Calcium 9.0 Troponin I High Sens Lipase Urine Color Urine Clarity Urine pH Ur Specific [place] Urine Protein Urine Glucose (UA) Urine Ketones Urine Occult Blood Urine Nitrite Urine Bilirubin Urine Urobilinogen Ur Leukocyte Esterase Urine RBC Urine WBC Ur Squamous Epith Cells Urine Bacteria Urine Mucus ABG Data ABG results: ABG 05/17/22 15:03 Specimen Type BANDAR VBG pH 7.36 VBG pO2 30 VBG HCO3 30 H VBG Total CO2 32 VBG O2 Sat (Calc) 54 VBG Base Excess 5 H POC Mix VBG pCO2 Pt Tmp 53.8 H Radiography Diagnostic Testing: Clinical Impression(s) from Imaging Studies Brain CT 05/17/22 14:12 IMPRESSION: Normal unenhanced CT scan of the brain. Electronically Signed: Raúl Soto MD at 14:43 EDT , Chest X-Ray 05/17/22 14:12 IMPRESSION: No acute mouth is seen. Electronically Signed: Raúl Soto MD at 15:10 EDT , EKG Initial EKG: Comments: EKG normal sinus rhythm, normal axis, no STEMI Discharge Plan Dx/Rx/DC Orders Clinical Impression: Altered mental status, Acute kidney injury, Hypokalemia, Acute hyponatremia Disposition Disposition: Acute Care Hospital [facility] Discharge Date/Time: 05/17/22 21:41
--- NOTE | 2022-05-17 14:12 | EKG12_ITS ---
Test Reason : Blood Pressure : / mmHG Vent. Rate : 083 BPM Atrial Rate : 083 BPM P-R Int : 128 ms QRS Dur : 086 ms QT Int : 392 ms P-R-T Axes : 044 055 032 degrees QTc Int : 460 ms Normal sinus rhythm Normal ECG Confirmed by DHEERAJ COPPOLA, EVANGELINA ([id number]), publishing editor WILLIE MAY ([id number]) on 05/19/2022 10:41:00 AM Referred By: Confirmed By:EVANGELINA ESQUEDA MD
--- NOTE | 2022-05-17 14:12 | CT_ITS ---
STUDY: CT BRAIN WITHOUT CONTRAST REASON FOR EXAM: Female, 62 years old. AMS RADIATION DOSAGE (If Supplied By Facility): CTDIvol = ( 47.06 ) mGy, DLP = ( 1886.53 ) mGycm TECHNIQUE: Transaxial CT imaging of the brain was performed without administration of intravenous contrast material. Individualized dose optimization techniques were used for this CT. COMPARISON: Comparison is made with prior study dated 09/17/2020. FINDINGS: Normal soft tissue structures. Normal calvarium. Normal size ventricles and extra-axial spaces for the patient''s age. Normal white matter tracts of the cerebral hemispheres. Normal basal ganglia and thalami. Normal brainstem. Normal cerebellum. There is no intracranial hemorrhage. There are no findings of an acute ischemic infarction. Normal visualized paranasal sinuses. CT/Brain/Head without Contrast IMPRESSION: Normal unenhanced CT scan of the brain. Electronically Signed: Raúl Soto MD at 14:43 EDT ,
--- NOTE | 2022-05-17 14:12 | RAD_ITS ---
STUDY: X-RAY CHEST REASON FOR EXAM: Female, 62 years old. AMS TECHNIQUE: AP and lateral views of the chest. COMPARISON: Comparison is made with prior study dated 09/24/2020. FINDINGS: EKG electrodes are seen. The lungs are clear and expanded. There is no demonstrated pleural abnormality. Normal size heart. Normal mediastinum and calvin. Normal visualized pulmonary arteries. There is atherosclerotic tortuosity of the aortic arch and descending thoracic aorta. Prior fusion of the thoracic and lumbar spine utilizing screw and aurelia fixation device. Normal visualized ribs, clavicles, and shoulders. There is no demonstrated abnormality of the visualized soft tissue structures of the upper abdomen. RAD/Chest PA and Lateral IMPRESSION: No acute mouth is seen. Electronically Signed: Raúl Soto MD at 15:10 EDT ,
[2022-05-17 14:25] LABS: Mucous, Urine 0 SEEN /hpf (<or=2+); Red Blood Cells-Urine 0 SEEN /hpf (0-5)
[2022-05-17] MEDS: 0.9% Normal Saline 1,000 ML 999 ML IV ×2 (14:30→16:05)
[2022-05-17 14:32] LABS: Color, Urine Yellow (Yellow); Glucose, Dipstick Normal (Normal); Ketone-Dipstick 5 mg/dl (Negative); Leukocyte Esterase-Dipstick 25 /ul (Negative); Nitrite-Dipstick Negative (Negative); Occult Blood-Urine Negative /ul (Negative); Protein-Dipstick 15 mg/dl (Negative); Specific Gravity, Urine 1.015 (1.002-1.030); Urine Clarity Sl. Cloudy (Clear); Urine Urobilinogen 1 mg/dl (Normal)
[2022-05-17 14:33] LABS: Absolute Lymphocyte Count 3.14 X10^3/uL (0.83-4.51); Absolute Neutrophil Count 4.4 X10^3/uL (2.0-7.7); Basophil# 0.03 X10^3/uL; Basophil% 0.4 % (0-1); Eosinophils% 3.5 % (0-5); Hematocrit 40.4 % (37-47); Hemoglobin 13.4 g/dL (12.0-15.0); Lymphocyte # 3.14 X10^3/ul (0.83-4.51); Lymphocyte % 37.1 % (19-41); Mean Corp Hgb Conc 33.2 g/dL (32-36); Mean Corpuscular Hgb 30.5 pg (27.0-32.0); Monocyte# 0.59 X10^3/uL; NRBC Flagged by Analyzer 0 % (0-5); Neutrophil # 4.36 X10^3/uL (2.7-7.7); Neutrophil % 51.4 % (47-70); Platelet Count 231 K/mm3 (150-450); RBC Distribution Width CV 13.8 % (11.6-14.6); RBC Distribution Width SD 46.7 fl (35.1-43.9); Red Blood Count 4.39 M/mm3 (4.2-5.4); White Blood Count 8.5 K/mm3 (4.4-11.0)
[2022-05-17 14:34] LABS: Urine Bilirubin Dipstick 3 mg/dL (Negative)
[2022-05-17 14:38] LABS: Bacteria 1+ /hpf (None Seen); Squamous Epithelial Cells - UA 0-5 SEEN /hpf (5-10); White Blood Cells 0-5 SEEN /hpf (0-5)
[2022-05-17 14:50] LABS: Anion Gap 6 (5-15); BUN 82 mg/dL (7-18); BUN/Creat Ratio 39.6 RATIO (10-20); Chloride 100 mmol/L (98-107); Creatinine, Serum 2.07 mg/dL (0.55-1.02); EST Glomerular Filtration Rate 26 mL/min (>60); Est Glom Filt Rate - Afr Amer 31 mL/min (>60); Estimated Creatinine Clearance 26.72 ml/min; Glucose 83 mg/dL (74-106); Lipase 138 U/L (73-393); Potassium 3.2 mmol/L (3.5-5.1); Sodium Level 135 mmol/L (136-145); Troponin-I HS 13 pg/mL (3.0-54.0)
[2022-05-17 15:10] LABS: Blood Gas Specimen Type VEN; VBG BASE EXCESS 5 mmol/L (-1.0-3.5); VBG Bicarbonate 30 mmol/L (22-26); VBG PO2 30 mmHg (25-40); VBG SO2 54 % (50-70); VBG TCO2 32 mmol/L (23-33); VBG pCO2 53.8 mmHg (41-51); VBG pH 7.36 (7.32-7.42)
[2022-05-17] MEDS: Cephalexin 250 MG Capsule 500 MG PO (18:08)
[2022-05-17] MEDS: Smz/Tmp Ds Tablet 1 TABLET PO (18:09)
[2022-05-17 19:22] LABS: Anion Gap 5 (5-15); BUN 78 mg/dL (7-18); BUN/Creat Ratio 42.9 RATIO (10-20); Chloride 107 mmol/L (98-107); Creatinine, Serum 1.82 mg/dL (0.55-1.02); EST Glomerular Filtration Rate 30 mL/min (>60); Est Glom Filt Rate - Afr Amer 36 mL/min (>60); Estimated Creatinine Clearance 30.39 ml/min; Glucose 76 mg/dL (74-106); Potassium 3.9 mmol/L (3.5-5.1); Sodium Level 136 mmol/L (136-145)
--- NOTE | 2022-05-17 20:22 | PCM.HP.STD ---
HPI - General General Date of Admission: 05/17/22 Date of Service: 05/17/22 Chief Complaint: confusion HPI Narrative CONRADO RAMAN, is a 62 F who presents with worsening confusion. History is obtained through the emergency room physician as well as the patient's daughter as patient is too confused to history whatsoever at this time. The daughter has been noticing, over the past couple weeks, that the patient, though wheelchair-dependent, has been careening her wheelchair into objects, whereas before, she would operate the wheelchair safely. The daughter is also noticed twitching in her upper extremities. This is a new phenomenon that the patient has not experienced before. Patient has had no recent changes to any of her medications and has been taking her medications consistently. Though the daughter states the patient has not been eating or drinking well lately. So the patient presented to the emergency room and underwent a work-up looking for etiology of her confusion. Head CT and chest x-ray are unremarkable. Creatinine was noted to be 2.07, whereas in September 2020, it was 1.22. Patient did receive IV fluids and her BMP was rechecked and her calcium was 1.82. Patient continued to remain confused. The hospice service was contacted for admission. 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, lumbar region Paraplegia Primary generalized (osteo)arthritis Spinal stenosis, lumbar region without neurogenic claudication Home Medications topiramate 25 mg tablet 25 mg PO BID pain 02/16/18 [History Last Taken 09/24/20] kyqjhkcholkg-tqaczthe-kfezxl tablet (Cerovite Senior) 1 tab PO DAILY supplement 02/26/18 [History Last Taken 09/23/20] atorvastatin 20 mg tablet 20 mg PO QHS cholesterol 08/08/19 [History Last Taken 09/23/20] levothyroxine 150 mcg tablet 150 mcg PO DAILY thyroid 09/17/20 [History Last Taken 09/24/20] pantoprazole 40 mg tablet,delayed release 40 mg PO BID PRN stomach 09/17/20 [History Last Taken 09/24/20] acetaminophen 500 mg tablet 500 mg PO Q6H PRN Pain 1-10 Or Fever 10/08/20 [History Last Taken Unknown] albuterol sulfate 90 mcg/actuation aerosol inhaler 2 puff inhalation Q4H PRN PRN Sob &/Or Wheezing 10/08/20 [History Last Taken Unknown] ipratropium 20 mcg-albuterol 100 mcg/actuation mist for inhalation (Combivent Respimat) 1 puff inhalation Q6H PRN Shortness Of Breath Or Wheezing 10/08/20 [History Last Taken Unknown] methadone 10 mg tablet 10 mg PO Q12H PAIN MANAGEMENT 10/08/20 [History Last Taken Unknown] betamethasone valerate 0.1 % topical cream 1 applic topical BID PRN skin irritation #15 grams 01/15/21 [Rx Last Taken Unknown] cetirizine 10 mg tablet 10 mg PO DAILY #30 tabs 01/15/21 [Rx Last Taken Unknown] gabapentin 300 mg capsule 600 mg PO BID nerve pain 01/15/21 [History Last Taken Unknown] lorazepam 1 mg tablet 1 mg PO BID PRN anxiety #60 tabs 01/15/21 [Rx Last Taken Unknown] potassium chloride 10 mEq tablet,extended release 10 meq PO DAILY #30 tabs 01/15/21 [Rx Last Taken Unknown] hydrocolloid dressing 4 X 4 (DuoDERM CGF Adhesive Border Dressing) #5 ea 09/07/21 [Rx Last Taken Unknown] ondansetron 4 mg disintegrating tablet 4 mg PO Q8H PRN nausea and vomiting 5 days #14 tabs 10/27/21 [Rx Last Taken Unknown] biotin 1 mg tablet 1 mg PO DAILY SUPPLEMENT 05/17/22 [History Last Taken Unknown] calcium citrate 250 mg PO DAILY SUPPLEMENT 05/17/22 [History Last Taken Unknown] cholecalciferol (vitamin D3) 25 mcg (1,000 unit) capsule 25 mcg PO DAILY SUPPLEMENT 05/17/22 [History Last Taken Unknown] cyanocobalamin (vitamin B-12) 1,000 mcg tablet 1,000 mcg PO DAILY SUPPLEMENT 05/17/22 [History Last Taken Unknown] dextran 70-hypromellose 0.1 %-0.3 % eye drops (Artificial Tears (dextran 70-hypromellose)) 1 drp ophthalmic (eye) TID DRY EYES 05/17/22 [History Last Taken Unknown] duloxetine 30 mg capsule,delayed release 30 mg PO DAILY 05/17/22 [History Last Taken Unknown] ferrous sulfate 325 mg (65 mg iron) tablet 325 mg PO DAILY SUPPLEMENT 05/17/22 [History Last Taken Unknown] fluticasone propionate 50 mcg/actuation nasal spray,suspension 2 spray intranasal DAILY ALLERGIES 05/17/22 [History Last Taken Unknown] furosemide 20 mg tablet 20 mg PO BID FLUID 05/17/22 [History Last Taken Unknown] gabapentin 300 mg capsule 900 mg PO QHS NERVE PAIN 05/17/22 [History Last Taken Unknown] lidocaine 5 % topical cream (AneCream5) 1 applic topical TID PRN Pain 05/17/22 [History Last Taken Unknown] metolazone 2.5 mg tablet 2.5 mg PO DAILY FLUID 05/17/22 [History Last Taken Unknown] mupirocin 2 % topical ointment 1 applic topical DAILY PRN Wound Care 05/17/22 [History Last Taken Unknown] nystatin 100,000 unit/gram topical cream 1 applic topical BID RASH 05/17/22 [History Last Taken Unknown] oxycodone-acetaminophen 5 mg-325 mg tablet 1 tab PO BID PRN Pain 05/17/22 [History Last Taken Unknown] polyethylene glycol 3350 17 gram/dose oral powder 17 g PO DAILY CONSTIPATION 05/17/22 [History Last Taken Unknown] sennosides 8.6 mg tablet (Senna Lax) 8.6 mg PO DAILY STOOL 05/17/22 [History Last Taken Unknown] tizanidine 4 mg tablet (Zanaflex) 4 mg PO BID PRN MUSCLES 05/17/22 [History Last Taken Unknown] valacyclovir 500 mg tablet (Valtrex) 500 mg PO DAILY 05/17/22 [History Last Taken Unknown] Allergy/AdvReac Type Severity Reaction Status Date / Time NSAIDS (Non-Steroidal Allergy GASTRIC Verified 05/17/22 13:11 Anti-Inflamma BYPASS trazodone AdvReac Other Verified 05/17/22 13:11 Family History Father Diabetes Hypertension Myocardial infarction Alcoholism Brother Myocardial infarction Alcoholism Mother CVA (cerebral vascular accident) Surgical History H/O dilation and curettage H/O gastric bypass History of bilateral salpingo-oophorectomy History of cholecystectomy Hydradenitis S/P arthroscopic knee surgery S/P lumbar spine operation s/p nerve spine surgery s/p upper back surgery skin graft Social History Smoking Status: Current every day smoker tobacco type: cigarettes alcohol intake: never substance use type: does not use caffeine: Yes what type of physical activity do you participate in: none seatbelt use: always do you feel safe at home: Yes additional social history: ROS Review of Systems ROS Unobtainable: due to encephalopathy Vital Signs Vital Signs Vital Signs: 05/17/22 13:05 05/17/22 14:25 05/17/22 15:05 Temperature 36.6 C Temperature Source Temporal Pulse Rate 94 90 81 Respiratory Rate 16 16 14 Blood Pressure 115/69 99/69 105/79 Blood Pressure Mean 84 79 87 Pulse Ox 96 96 96 Oxygen Delivery Method Room Air Room Air Room Air 05/17/22 16:05 05/17/22 17:02 05/17/22 18:03 Temperature Temperature Source Pulse Rate 81 84 73 Respiratory Rate 16 13 16 Blood Pressure 129/82 H 127/79 H Blood Pressure Mean 97 95 Pulse Ox 98 97 97 Oxygen Delivery Method Room Air Room Air Room Air 05/17/22 19:09 Temperature Temperature Source Pulse Rate 80 Respiratory Rate 14 Blood Pressure 111/60 Blood Pressure Mean 77 Pulse Ox 97 Oxygen Delivery Method Room Air Weight Weight: 84 kg Body Mass Index (BMI) 29.9 Physical Exam Const alert Constitutional Narrative: Oriented to self and place. Cannot tell me why her daughter actually brought her into the hospital other than stating that her daughter hates her. Orientation / Consciousness: confused HEENT normocephalic and head/scalp atraumatic Neck no lymphadenopathy Neck Narrative: No thyromegaly Resp normal respiratory effort, no retractions, no use of accessory muscles and clear to auscultation bilaterally Cardio regular rate, regular rhythm, S1 normal heart sound and S2 normal heart sound GI normal to inspection, nondistended, normoactive bowel sounds and soft to palpation Extremity Extremity Narrative: Edema bilaterally. Venous stasis changes to the lower extremities bilaterally. Neuro Sensorium / Orientation: awake, alert, oriented to person and oriented to place Psych Mood & Affect: anxious Results Lab / Micro Data Attestation: I reviewed the patient's lab results. Result Diagrams: 05/17/22 13:14 05/17/22 17:50 Labs: Laboratory Results - last 24 hr 05/17/22 13:14: Sodium 135 L, Potassium 3.2 L, Chloride 100, Carbon Dioxide 29.0, Anion Gap 6, BUN 82 H, Creatinine 2.07 H, Estim Creat Clear Calc 26.72, Est GFR (MDRD) Af Amer 31 L, Est GFR (MDRD) Non-Af 26 L, BUN/Creatinine Ratio 39.6 H, Glucose 83, Calcium 10.0, Troponin I High Sens 13, Lipase 138 05/17/22 13:14: WBC 8.5, RBC 4.39, Hgb 13.4, Hct 40.4, MCV 92.0, MCH 30.5, MCHC 33.2, RDW Std Deviation 46.7 H, RDW Coeff of Jarrod 13.8, Plt Count 231, MPV 11.0, Immature Gran % (Auto) 0.600, Neut % (Auto) 51.4, Lymph % (Auto) 37.1, [place] % (Auto) 7.0, Eos % (Auto) 3.5, Baso % (Auto) 0.4, Absolute Neuts (auto) 4.4, Absolute Lymphs (auto) 3.14, Nucleated RBC % 0 05/17/22 14:00: Urine Color Yellow, Urine Clarity Sl. Cloudy, Urine pH 5.0, Ur Specific [place] 1.015, Urine Protein 15 H, Urine Glucose (UA) Normal, Urine Ketones 5 H, Urine Occult Blood Negative, Urine Nitrite Negative, Urine Bilirubin 3 H, Urine Urobilinogen 1 H, Ur Leukocyte Esterase 25 H, Urine RBC 0 SEEN, Urine WBC 0-5 SEEN, Ur Squamous Epith Cells 0-5 SEEN, Urine Bacteria 1+, Urine Mucus 0 SEEN 05/17/22 17:50: Sodium 136, Potassium 3.9, Chloride 107, Carbon Dioxide 24.0, Anion Gap 5, BUN 78 H, Creatinine 1.82 H, Estim Creat Clear Calc 30.39, Est GFR (MDRD) Af Amer 36 L, Est GFR (MDRD) Non-Af 30 L, BUN/Creatinine Ratio 42.9 H, Glucose 76, Calcium 9.0 ABG Data ABG results: ABG 05/17/22 15:03 Specimen Type BANDAR VBG pH 7.36 VBG pO2 30 VBG HCO3 30 H VBG Total CO2 32 VBG O2 Sat (Calc) 54 VBG Base Excess 5 H POC Mix VBG pCO2 Pt Tmp 53.8 H Radiology Impression Brain CT 05/17/22 14:12 IMPRESSION: Normal unenhanced CT scan of the brain. Electronically Signed: Raúl Soto MD at 14:43 EDT , Chest X-Ray 05/17/22 14:12 IMPRESSION: No acute mouth is seen. Electronically Signed: Raúl Soto MD at 15:10 EDT , Assessment & Plan Assessment/Plan (1) Toxic encephalopathy: PLAN: Reviewed the patient's medications through [facility]. Patient is actively receiving prescriptions for gabapentin 300 mg and she takes 7 tablets/day, Percocet 10/325 mg twice daily, methadone 10 mg twice daily and lorazepam 1 mg daily. I am most concerned for the gabapentin and the methadone being the primary etiology of her encephalopathy given her acute kidney injury Gabapentin and methadone will be held for the time being. The lorazepam and Percocets will be given to her only if she is alert and oriented x3 and needs it as needed. Is unclear if patient can be resumed back on gabapentin or methadone given her clinical situation at this time (2) Acute kidney injury: PLAN: Suspect prerenal Improved after IV fluids Continue to hold her furosemide and metolazone for now Check urine urea and creatinine No need for for renal replacement therapy at this time (3) Hypokalemia: PLAN: Improved. Monitor. PLAN: Plan Chronic conditions Chronic pain: Medications being addressed due to the toxic encephalopathy as delineated above. Patient will need follow-up with pain management as outpatient. Patient sees Dr. Comer Debility. Paraplegic. Wheelchair-bound. PT OT evaluate and treat. Anxiety: Lorazepam will be utilized only as needed. Hold off on her Cymbalta for now GERD: Continue PPI VTE prophylaxis with enoxaparin CODE STATUS: Patient unable to provide any information because she is CODE STATUS at this time. Patient will remain full code for the time being. Patient was insisting on leaving home but she is alert and oriented x2 and therefore cannot make adequate decision about leaving AGAINST MEDICAL ADVICE at this time. Charges/Coding Visit Charges Inpatient E&M: 71560 Init Hosp L3
--- NOTE | 2022-05-17 22:58 | NURSING ---
note from [employer] UNABLE TO VERIFY MED LIST WITH PT AT THIS TIME. FAMILY UNSURE OF PT MEDICATIONS. MED LIST RECEIVED FROM PCP OFFICE MED LIST UPDATED FROM PT VISIT WITH PCP ON 05/11/22.
[2022-05-17] MEDS: Acetaminophen 500 MG Tablet PO (23:14)
[2022-05-17] MEDS: oxyCODONE 5 MG Tablet PO (23:15)
[2022-05-17] MEDS: 0.9% Normal Saline 1,000 ML 150 ML IV (23:15)
[2022-05-17] MEDS: LORazepam 1 MG Tablet PO (23:15)
[2022-05-17] MEDS: Atorvastatin Calcium 20 MG Tablet PO (23:15)
[2022-05-18] VITALS (9 sets, daily range): BP systolic 96–142; BP diastolic 53–90; PULSE 85–93; RESP 16–18; TEMP 36.6–36.9; O2SAT 95–100
[2022-05-18] MEDS: Glycerin/Hypromellose/PEG400 15 ml Bottle 1 DRP EACH EYE ×3 (03:41→20:34)
[2022-05-18] MEDS: Levothyroxine 150 MCG Tablet PO (03:41)
--- NOTE | 2022-05-18 07:42 | PCM.PN.HOSP ---
Subjective Subjective Follow-up on acute toxic encephalopathy: Patient was seen and examined. She is much more awake. She denied any new complaints. She denied any diarrhea nausea or vomiting. Objective Data Objective Data Vital Signs: Vital Signs Temp Pulse Resp BP Pulse Ox O2 Del Method 98 F 86 18 121/70 H 97 Room Air 05/18/22 03:35 05/18/22 03:35 05/18/22 03:35 05/18/22 03:35 05/18/22 03:35 05/18/22 03:35 Oxygen Delivery Method Room Air Weight: 83.234 kg Body Mass Index (BMI) 29.6 Intake & Output: Intake and Output for Last 24 Hours 05/16/22 05/17/22 05/18/22 23:59 23:59 23:59 Intake Total 1999 / 1999 1000 / 1000 Output Total 300 / 300 400 / 400 Balance 1700 / 1700 600 / 600 Lab / Micro Data Result Diagrams: 05/17/22 13:14 05/18/22 05:30 Labs: Laboratory Results - last 24 hr 05/17/22 13:14: Sodium 135 L, Potassium 3.2 L, Chloride 100, Carbon Dioxide 29.0, Anion Gap 6, BUN 82 H, Creatinine 2.07 H, Estim Creat Clear Calc 26.72, Est GFR (MDRD) Af Amer 31 L, Est GFR (MDRD) Non-Af 26 L, BUN/Creatinine Ratio 39.6 H, Glucose 83, Calcium 10.0, Troponin I High Sens 13, Lipase 138 05/17/22 13:14: WBC 8.5, RBC 4.39, Hgb 13.4, Hct 40.4, MCV 92.0, MCH 30.5, MCHC 33.2, RDW Std Deviation 46.7 H, RDW Coeff of Jarrod 13.8, Plt Count 231, MPV 11.0, Immature Gran % (Auto) 0.600, Neut % (Auto) 51.4, Lymph % (Auto) 37.1, [place] % (Auto) 7.0, Eos % (Auto) 3.5, Baso % (Auto) 0.4, Absolute Neuts (auto) 4.4, Absolute Lymphs (auto) 3.14, Nucleated RBC % 0 05/17/22 14:00: Urine Color Yellow, Urine Clarity Sl. Cloudy, Urine pH 5.0, Ur Specific [place] 1.015, Urine Protein 15 H, Urine Glucose (UA) Normal, Urine Ketones 5 H, Urine Occult Blood Negative, Urine Nitrite Negative, Urine Bilirubin 3 H, Urine Urobilinogen 1 H, Ur Leukocyte Esterase 25 H, Urine RBC 0 SEEN, Urine WBC 0-5 SEEN, Ur Squamous Epith Cells 0-5 SEEN, Urine Bacteria 1+, Urine Mucus 0 SEEN 05/17/22 17:50: Sodium 136, Potassium 3.9, Chloride 107, Carbon Dioxide 24.0, Anion Gap 5, BUN 78 H, Creatinine 1.82 H, Estim Creat Clear Calc 30.39, Est GFR (MDRD) Af Amer 36 L, Est GFR (MDRD) Non-Af 30 L, BUN/Creatinine Ratio 42.9 H, Glucose 76, Calcium 9.0 05/17/22 20:35: Urine Creatinine 142.00 ABG Data ABG results: ABG 05/17/22 15:03 Specimen Type BANDAR VBG pH 7.36 VBG pO2 30 VBG HCO3 30 H VBG Total CO2 32 VBG O2 Sat (Calc) 54 VBG Base Excess 5 H POC Mix VBG pCO2 Pt Tmp 53.8 H Radiography Diagnostic Testing: Radiology Impression Brain CT 05/17/22 14:12 IMPRESSION: Normal unenhanced CT scan of the brain. Electronically Signed: Raúl Soto MD at 14:43 EDT , Chest X-Ray 05/17/22 14:12 IMPRESSION: No acute mouth is seen. Electronically Signed: Raúl Soto MD at 15:10 EDT , Physical Exam Narrative Physical exam: General: Alert, Oriented x3, Cooperative, appears frail, unkempt HEENT: Atraumatic Oral: Moist Mucosa Neck: Supple Lungs: Clear to auscultation Cardiovascular: HS I+II, regular, no murmurs Abdomen: Bowel Sounds Present, Soft, Non Tender Extremities: Osito wraps to bilateral lower extremities Skin: No rashes, No breakdown Neurological: Grossly intact Psych/Mental Status: Appropriate Assessment & Plan Assessment/Plan (1) Toxic encephalopathy: PLAN: Plan 1.Acute toxic encephalopathy secondary to sedating meds Patient is more awake, alert Off Cymbalta, gabapentin, methadone Continue on reduced dose of Ativan 1 mg p.o. daily, continue to monitor 2. Severe hypokalemia/hypomagnesemia, potassium 2.8, creatinine 1.5, replaced, recheck in a.m. 3. VLADISLAV, prerenal secondary to dehydration/poor p.o. intake Creatinine currently 1.50, down from 2.37 Will trend labs in am 4. Bilateral leg ulcers, likely venous/decubitus ulcers of perineal and coccygeal region Wound RN consulted 5. Chronic pain syndrome/anxiety disorder, off methadone, continue on as needed oxycodone, lidocaine patches 6. GERD, continue PPI 7. Chronic debility, paraplegia, wheelchair-bound 8. DVT prophylaxis?Lovenox subcu Charges/Coding Visit Charges Inpatient E&M: 69025 Subs Hosp L2
[2022-05-18 08:00] LABS: Anion Gap 7 (5-15); BUN 65 mg/dL (7-18); BUN/Creat Ratio 43.3 RATIO (10-20); Chloride 107 mmol/L (98-107); EST Glomerular Filtration Rate 38 mL/min (>60); Est Glom Filt Rate - Afr Amer 45 mL/min (>60); Estimated Creatinine Clearance 36.87 ml/min; Glucose 83 mg/dL (74-106); Potassium 2.8 mmol/L (3.5-5.1); Sodium Level 142 mmol/L (136-145); Thyroid Stim Hormone (TSH) 0.07 uIU/mL (0.358-3.74)
[2022-05-18] MEDS: Ferrous Sulfate 325 MG Tablet PO (08:20)
[2022-05-18] MEDS: Ensure Plus High Protein 120 ML LIQUID PO (08:20)
[2022-05-18] MEDS: Multivitamins,Ther W-Minerals Tablet 1 TABLET PO (08:20)
[2022-05-18] MEDS: Acetaminophen 500 MG Tablet PO ×3 (08:35→23:05)
--- NOTE | 2022-05-18 09:42 | WOUNDNOTE ---
wound photo: right lower leg
--- NOTE | 2022-05-18 09:42 | WOUNDNOTE ---
wound photo: left lower leg
--- NOTE | 2022-05-18 09:43 | WOUNDNOTE ---
wound photo: left lower leg
--- NOTE | 2022-05-18 09:43 | WOUNDNOTE ---
wound photo: left posterior lower leg
--- NOTE | 2022-05-18 09:45 | WOUNDNOTE ---
wound photo: left lower abdomen
[2022-05-18] MEDS: Polyethylene Glycol 3350 17 GM PACKET PO (10:29)
[2022-05-18] MEDS: Cholecalciferol (VIT D3) 25 MCG TABLET (1,000 UNITS) PO (10:30)
[2022-05-18] MEDS: Cyanocobalamin 500 MCG Tablet 1000 MCG PO (10:30)
[2022-05-18] MEDS: Senna Tablet 1 TABLET PO (10:30)
[2022-05-18 11:43] LABS: Free T3 2.3 pg/mL (2.18-3.98); Magnesium 1.5 mg/dL (1.6-2.6)
[2022-05-18] MEDS: Potassium Chloride 10mEq/100mL 10 MEQ/100 ML IV.SOLN. 100 MEQ IV BOLUS ×4 (12:15→16:44)
--- NOTE | 2022-05-18 13:01 | CHAPLAIN ---
Type of Pastoral Visit _x__ Initial Visit ___ Follow-up Visit ___ On-call Visit ___ General Patient Visit ___ Spiritual Assessment ___ Family Conference ___ Bereavement ___ Rapid Response ___ Code Blue ___ Other (describe below) Pastoral Care Referral From _x__ Patient ___ Family ___ Nurse ___ Physician ___ State Game Warden ___ Flat Locker ___ Other (describe below) Sacrament/Intervention _x__ Active listening ___ Anointing ___ Quaker ___ Bereavement ___ Communion ___ Indira exploration ___ ___ Life review _x__ Prayer ___ Reconciliation ___ Sacrament of Sick _x__ Supportive presence ___ Wedding ___ Other (describe below) Pastoral Comments patient keeps head down much of the visit and then will moan and say that it hurts; offer of presence, prayer, and other support; pt requests prayer; pt states that I don't want to be here; affirmed that goal is to help patient feel better, be safe, and get rest/peace; pt mumbles some of the time; pt states she has family but then mumbles to herself more about them; reminded patient how to ask for help with the call button
--- NOTE | 2022-05-18 14:05 | CASEMGMT ---
Addendum entered by Aliya Gibson 05/18/22 15:01: Discussed therapy evals with therapists at this time. Addendum entered by Aliya Gibson 05/18/22 14:52: TC to pt dtr Adriane who states that if therapy is recommending SNF, she would like pt to go to for s/t therapy. She states pt is not in her right mind and she is the POA and will make the decisions. She states if therapy feels pt is safe to return home, she would like C. She states she will be going to work today and will be bringing her sister Fabiana to the hospital to visit with pt. Will touch base with therapy. Addendum entered by Aliya Gibson 05/18/22 14:33: Pt states both dtrs were here lastnight and bickering. Pt states the reason for this is because they don't want to deal with me. Original Note: TODD MEZA Assessment: Face to Face with pt for initial transition planning/care coordination assessment. TODD MEZA introduced self and role at [facility], pt voices understanding and consents to assessment. Pt is A/O x3 and answers all questions appropriately at this time. Pt sitting up in chair tearful at times. Pt states I want to go home. Care providers, pharmacy, and demographics verified/updated. Admitting Dx: toxic encephalopathy PCP:Olvin Specialists:Souleymane, audie mgmt; C every 2 weeks, Ayanna Jameson Preferred Pharmacy: [facility] Insurance: My Care CRS, [facility] Prescription Benefit: yes LW/HPOA: Pt has a LW handwritten on file at [facility]. Pt does state that Adriane Flores is who she would like to contact regarding her dc plan. LNOK: Adriane Flores, macr; Fabiana Rabago dtr Living Arrangements: Pt lives with dtr Fabiana in a two story apt with a ramp to enter. Pt states her nephew stays there off and on. Pt states she has assistance with ADL's from an aide 5 days a week and otherwise cares for herself. Transportation: Pt states she uses her insurance for transportation to medical appts. DME/HHC/SNF: Pt has a hospital bed, trapeze, motorized w/c, BSC and sliding board. Pt states she does have BGM with sufficient supplies and only checks her blood sugars when she is symptomatic. Pt has had [facility] HHC in the past and been to [facility] and [facility]. Pt has an aide 5 days a week 2 hours in the morning and 2 hours in the afternoon. Pt states she will be quitting soon. Pt states no concerns with going home at time of dc. States she has had someone in the home that she does not want back as the person stated she would have to not use if she saw pt. This may have been a visiting physician. Pt is not interested in this. Pt states she has wounds and her aide cares for the wounds as well as herself. Discussed the possibility of having HHC in the home, pt asks for RN CM to speak with her dtr Adriane. Pt states no further concerns/needs. CM to follow. Advised pt to ask CM if any further question/concerns/needs arise, voices understanding. Pt Goal: Home Plan: TBD, updated SW on pt having services from [facility].
--- NOTE | 2022-05-18 14:11 | NURSING ---
reviewed, agree with charting by philip tyler
[2022-05-18] MEDS: Juven (unflavored) Packet 1 PACKET PO (14:36)
[2022-05-18] MEDS: Nystatin Ointment 1 APPLIC TOPICAL ×2 (14:37→20:34)
--- NOTE | 2022-05-18 15:40 | CASEMGMT ---
Addendum entered by Charlotte Celaya 05/18/22 15:57: SW placed call to Mitul at [facility]. Mitul reported already has open case and seen pt on May 06. APS worker discussed concerns of illegal and prescription drug abuse. Worker stated would wait for [facility] to provide update on if pt discharges home and if there are ongoing concerns. Worker is familiar with family dynamic and has been working with pt and daughters. KRISHAN Mendez Original Note: Social Work Pt's and RNCM requested clinical social worker speak with pt regarding home/social dynamics. SW in to meet with pt. Introduced self and role at the hospital. Pt upset, stated had discussed concerns multiple times and was frustrated to have to repeat self. SW explained attempting to advocate for pt and empower pt to make decisions own if, if possible. Pt reports daughters cause stress and are upset that pt nephew could possibly get my money. SW asked for clarification. Pt stated HCPOA papers were made several years ago and daughters are attempting to take over everything now that they have legal documents that say they can make decisions about me. SW offered education on HCPOA and how it works but pt cut SW off and stated I know, as long as I am of sound mind I make my own decisions. SW informed pt that if pt wants new HCPOA documents can be made. Pt stating would consider this and is likely going to but would like a little time to consider. SW reported to RNCM thoughts that pt is competent and able to make own decisions at this time. RN reported to and recommending a referral to [facility] as concerns with family mistreating pt have risen. This SW witnessed pt's daughter leaving pt room and as daughter was leaving daughter yelled at pt the reason you are here is because you are an asshole! Daughter was asked to leave. SHARITA also spoke to pt CM Mariela Gutierres. Mariela reports some concern with illegal drug use and asked about drug screenings. SHARITA informed there was no reason to suspect drug use so the screenings had not been completed. SW did report CM's concerns to pt . Pt's to consider drug screening pt. CM requesting discharge orders when pt leaves. PLAN: Referral to [facility] KRISHAN Mendez
--- NOTE | 2022-05-18 16:22 | NURSING ---
called [facility] to have med lists faxed to hospital
[2022-05-18] MEDS: Potassium Chloride Oral Tablet 20 MEQ 40 MEQ PO (18:24)
[2022-05-18] MEDS: Magnesium Sulfate 4gm/100mL 4 GM/100 ML IV.SOLN. IV (18:24)
[2022-05-18] MEDS: oxyCODONE 5 MG Tablet PO ×2 (18:27→23:05)
[2022-05-18] MEDS: LORazepam 1 MG Tablet PO (18:27)
[2022-05-18 19:21] LABS: Amphetamine Urine VISTA NEGATIVE (<1000 ng/mL); Barbiturate Urine VISTA NEGATIVE (< 200 ng/mL); Benzodiazepine Urine VISTA NEGATIVE (< 200 ng/mL); Cocaine Urine VISTA NEGATIVE (< 300 ng/mL); Ecstacy Urine VISTA NEGATIVE (< 500 ng/mL); Methadone Urine VISTA POSITIVE (< 300 ng/mL); PCP Urine VISTA NEGATIVE (< 25 ng/mL); THC Urine VISTA POSITIVE (< 50 ng/mL); Vista UDS pH Range 6
[2022-05-18] MEDS: Atorvastatin Calcium 20 MG Tablet PO (20:34)
[2022-05-19 03:15] VITALS: BP 118/66; PULSE 84; RESP 18; TEMP 36.6; O2SAT 96
[2022-05-19] MEDS: LORazepam 1 MG Tablet PO (03:19)
[2022-05-19] MEDS: Levothyroxine 150 MCG Tablet PO (03:19)
[2022-05-19] MEDS: Glycerin/Hypromellose/PEG400 15 ml Bottle 1 DRP EACH EYE (03:19)
[2022-05-19 06:59] LABS: Absolute Lymphocyte Count 2.06 X10^3/uL (0.83-4.51); Absolute Neutrophil Count 2.9 X10^3/uL (2.0-7.7); Basophil# 0.02 X10^3/uL; Basophil% 0.4 % (0-1); Eosinophil# 0.22 X10^3/uL; Eosinophils% 3.9 % (0-5); Hematocrit 32.7 % (37-47); Hemoglobin 10.8 g/dL (12.0-15.0); Lymphocyte # 2.06 X10^3/ul (0.83-4.51); Lymphocyte % 36.3 % (19-41); Mean Corpuscular Hgb 30.4 pg (27.0-32.0); Mean Corpuscular Volume 92.1 fL (81-99); Mean Platelet Vol. 10.5 fl (6.2-12.0); Monocyte# 0.41 X10^3/uL; Monocyte% 7.2 % (0-10); NRBC Flagged by Analyzer 0 % (0-5); Neutrophil # 2.92 X10^3/uL (2.7-7.7); Neutrophil % 51.5 % (47-70); Platelet Count 194 K/mm3 (150-450); RBC Distribution Width CV 14.1 % (11.6-14.6); RBC Distribution Width SD 47.6 fl (35.1-43.9); Red Blood Count 3.55 M/mm3 (4.2-5.4); White Blood Count 5.7 K/mm3 (4.4-11.0)
[2022-05-19 07:00] VITALS: PULSE 76; RESP 18; O2SAT 94
[2022-05-19] MEDS: Ipratropium/Albuterol Sulfate 3 ML AMPUL.NEB INHALATION (07:00)
[2022-05-19 07:27] LABS: ALB/GLOB Ratio 0.7 RATIO (0.9-2.4); AST(SGOT) 18 U/L (15-37); Alanine Aminotransfer ALT/SGPT 20 U/L (13-56); Albumin, Serum 2.4 g/dL (3.2-5.0); Alkaline Phosphatase 138 U/L (45-117); Anion Gap 4 (5-15); BUN 45 mg/dL (7-18); BUN/Creat Ratio 40.5 RATIO (10-20); Calcium,Total 9.5 mg/dL (8.5-10.1); Chloride 109 mmol/L (98-107); Creatinine, Serum 1.11 mg/dL (0.55-1.02); EST Glomerular Filtration Rate 53 mL/min (>60); Est Glom Filt Rate - Afr Amer 64 mL/min (>60); Estimated Creatinine Clearance 49.82 ml/min; Globulin 3.3 g/dL (2.2-4.2); Glucose 101 mg/dL (74-106); Potassium 3.7 mmol/L (3.5-5.1); Protein, Total 5.7 g/dL (6.4-8.2); Sodium Level 141 mmol/L (136-145)
[2022-05-19] MEDS: oxyCODONE 5 MG Tablet PO (08:15)
[2022-05-19] MEDS: Potassium Chloride Oral Tablet 20 MEQ 40 MEQ PO (08:15)
[2022-05-19] MEDS: Senna Tablet 1 TABLET PO (08:16)
[2022-05-19] MEDS: Juven (unflavored) Packet 1 PACKET PO (08:16)
[2022-05-19] MEDS: Cyanocobalamin 500 MCG Tablet 1000 MCG PO (08:16)
[2022-05-19] MEDS: Multivitamins,Ther W-Minerals Tablet 1 TABLET PO (08:16)
[2022-05-19] MEDS: Ferrous Sulfate 325 MG Tablet PO (08:16)
[2022-05-19] MEDS: Polyethylene Glycol 3350 17 GM PACKET PO (08:16)
[2022-05-19] MEDS: Cholecalciferol (VIT D3) 25 MCG TABLET (1,000 UNITS) PO (08:17)
[2022-05-19 08:29] VITALS: BP 116/76; PULSE 82; RESP 18; TEMP 36.4; O2SAT 100
[2022-05-19 08:30] VITALS: BP 116/76; PULSE 82; RESP 18; TEMP 36.4; O2SAT 97
[2022-05-19] MEDS: Methadone 10 MG Tablet PO (10:33)
--- NOTE | 2022-05-19 10:45 | WOUNDNOTE ---
wound photo: buttocks
--- NOTE | 2022-05-19 11:05 | CASEMGMT ---
Addendum entered by Nolvia Ross 05/19/22 12:24: Received notification from Josefina at [facility], they are able to accept pt for services starting Monday. Received declines from JOSE Swenson and [facility]. Original Note: RN CM in to pt room, pt reports she is painful and uncomfortable. Pt states she would like to be up in the chair. Notified GIFTED TEACHER. Patient was provided a list of [facility] providers including quality and resource use data and consistent with the patient?s preferred geographic region, medical needs, and insurance network were provided from the [employer]. Pt states she is confused and wants to speak with her [employer] CM, Mariela. She called Mariela, was on speaker and explained situation to her. Pt and Mariela agreed that [facility] would be a good addition to pt care. Pt did not have preference of agency. Referral sent to multiple in network agencies via [employer].
[2022-05-19 11:24] VITALS: O2SAT 97
--- NOTE | 2022-05-19 12:25 | DS.PCM_ITS ---
Providers Date of Admission: 05/17/22 Date of Discharge: 05/19/22 Primary Care Physician: Dr. Kevin Bah MD Consultations 05/18/22 00:05 Consult: Onc/Wound/cutting inspector Routine Comment: Reason for Consult:: wounds to coccyx and BLE Reason For Visit: TOXIC ENCEPHALOPATHY Diagnosis Discharge Diagnosis (1) Toxic encephalopathy: Status: Acute Code(s): G92.9 - Unspecified toxic encephalopathy Plan 1.Acute toxic encephalopathy 2. Severe hypokalemia/hypomagnesemia 3. VLADISLAV, prerenal secondary to dehydration/poor p.o. intake 4. Bilateral leg ulcers, likely venous/decubitus ulcers of perineal and coccygeal region 5. Chronic pain syndrome/anxiety disorder 6. GERD 7. Chronic debility, paraplegia, wheelchair-bound Medications at Discharge Home Medications topiramate 25 mg tablet 25 mg PO BID pain 02/16/18 [id number] tablet (Cerovite Senior) 1 tab PO DAILY supplement 02/26/18 atorvastatin 20 mg tablet 20 mg PO QHS cholesterol 08/08/19 levothyroxine 150 mcg tablet 150 mcg PO DAILY thyroid 09/17/20 pantoprazole 40 mg tablet,delayed release 40 mg PO BID PRN stomach 09/17/20 acetaminophen 500 mg tablet 500 mg PO Q6H PRN Pain 1-10 Or Fever 10/08/20 albuterol sulfate 90 mcg/actuation aerosol inhaler 2 puff inhalation Q4H PRN PRN Sob &/Or Wheezing 10/08/20 ipratropium 20 mcg-albuterol 100 mcg/actuation mist for inhalation (Combivent Respimat) 1 puff inhalation Q6H PRN Shortness Of Breath Or Wheezing 10/08/20 methadone 10 mg tablet 10 mg PO Q12H PAIN MANAGEMENT 10/08/20 betamethasone valerate 0.1 % topical cream 1 applic topical BID PRN skin irritation #15 grams 01/15/21 cetirizine 10 mg tablet 10 mg PO DAILY #30 tabs 01/15/21 lorazepam 1 mg tablet 1 mg PO BID PRN anxiety #60 tabs 01/15/21 potassium chloride 10 mEq tablet,extended release 10 meq PO DAILY #30 tabs 01/15/21 hydrocolloid dressing 4 X 4 (DuoDERM CGF Adhesive Border Dressing) #5 ea 09/07/21 ondansetron 4 mg disintegrating tablet 4 mg PO Q8H PRN nausea and vomiting 5 days #14 tabs 10/27/21 biotin 1 mg tablet 1 mg PO DAILY SUPPLEMENT 05/17/22 calcium citrate 250 mg PO DAILY SUPPLEMENT 05/17/22 cholecalciferol (vitamin D3) 25 mcg (1,000 unit) capsule 25 mcg PO DAILY SUPPLEM ENT 05/17/22 cyanocobalamin (vitamin B-12) 1,000 mcg tablet 1,000 mcg PO DAILY SUPPLEMENT 05/17/22 dextran 70-hypromellose 0.1 %-0.3 % eye drops (Artificial Tears (dextran 70- hypromellose)) 1 drp ophthalmic (eye) TID DRY EYES 05/17/22 duloxetine 30 mg capsule,delayed release 30 mg PO DAILY depression 05/17/22 ferrous sulfate 325 mg (65 mg iron) tablet 325 mg PO DAILY SUPPLEMENT 05/17/22 fluticasone propionate 50 mcg/actuation nasal spray,suspension 2 spray intranasal DAILY ALLERGIES 05/17/22 lidocaine 5 % topical cream (AneCream5) 1 applic topical TID PRN Pain 05/17/22 metolazone 2.5 mg tablet 2.5 mg PO DAILY PRN swelling 05/17/22 mupirocin 2 % topical ointment 1 applic topical DAILY PRN Wound Care 05/17/22 nystatin 100,000 unit/gram topical cream 1 applic topical BID RASH 05/17/22 polyethylene glycol 3350 17 gram/dose oral powder 17 g PO DAILY CONSTIPATION 05/17/22 sennosides 8.6 mg tablet (Senna Lax) 8.6 mg PO DAILY STOOL 05/17/22 valacyclovir 500 mg tablet (Valtrex) 500 mg PO DAILY Check with primary doctor 05/17/22 furosemide 20 mg tablet (Lasix) 20 mg PO DAILY 30 days #30 tabs 05/19/22 gabapentin 300 mg capsule 300 mg PO BID 30 days #60 caps 05/19/22 Hospital Course Operations None Procedures None Summary of Care Provided Minutes Spent on Discharge: 40 Hospital Course: 62-year-old female with past medical history of chronic pain syndrome from multiple back and hip surgeries, wheelchair-bound who comes in with worsening confusion. Patient was found to be bumping her wheelchair into objects. She previously is able to operate her wheelchair. She was also noted to have twitching in her upper extremities. Head CT and chest x-ray were unremarkable on admission. Her creatinine was also found to be 2.07. Her baseline is 1.2-1.3. Patient was admitted to the [facility] floor and managed as acute toxic encephalopathy and acute UTI. Patient is on chronic methadone, gabapentin, Percocet, Ativan and Cymbalta. Cymbalta, gabapentin and methadone were held. Patient's mentation improved with hydration also. Her Lasix and metolazone were held. Her acute kidney injury improved. Urine tox done in the hospital was positive for methadone and marijuana. Patient patient was resumed back on methadone. Discussed with Dr. Comer, patient would remain only on methadone, Percocet was discontinued. She was also resumed on a lower dose of gabapentin -300 mg p.o. twice daily instead of 900 mg p.o. QHS as well as 600 mg p.o. twice daily. Her Lasix was made 20 mg p.o. daily. She was strongly recommended to follow-up with her primary care doctor within 1 week to have her renal function rechecked. Patient was seen by PT and OT and will be followed up by home health. Social work and case management were consulted during this admission. There was strong concern for possible illegal drug use in this patient and APS referral made. Physical Exam Narrative Physical exam: General: Alert, Oriented x3, Cooperative, appears frail, unkempt HEENT: Atraumatic Oral: Moist Mucosa Neck: Supple Lungs: Clear to auscultation Cardiovascular: HS I+II, regular, no murmurs Abdomen: Bowel Sounds Present, Soft, Non Tender Extremities: Osito wraps to bilateral lower extremities Skin: No rashes, No breakdown Neurological: Grossly intact Psych/Mental Status: Appropriate Weight / BMI Weight Weight: 83.234 kg Body Mass Index (BMI) 29.6 ABG / Lab / Microbiology Data Result Diagrams: 05/19/22 05:55 05/19/22 05:55 Laboratory: Laboratory Results - last 24 hr 05/18/22 18:45: Urine Opiates Screen NEGATIVE, Urine Methadone Screen POSITIVE H , Ur Barbiturates Screen NEGATIVE, Ur Phencyclidine Scrn NEGATIVE, Ur Amphetamines Screen NEGATIVE, MDMA (Ecstasy) Screen NEGATIVE, U Benzodiazepines Scrn NEGATIVE, Urine Cocaine Screen NEGATIVE, U Cannabinoids Screen POSITIVE H, Ur Drug Screen Comment 05/19/22 05:55: WBC 5.7, RBC 3.55 L, Hgb 10.8 L, Hct 32.7 L, MCV 92.1, MCH 30.4, MCHC 33.0, RDW Std Deviation 47.6 H, RDW Coeff of Jarrod 14.1, Plt Count 194, MPV 10.5, Immature Gran % (Auto) 0.700, Neut % (Auto) 51.5, Lymph % (Auto) 36.3, [place] % (Auto) 7.2, Eos % (Auto) 3.9, Baso % (Auto) 0.4, Absolute Neuts (auto) 2.9, Absolute Lymphs (auto) 2.06, Nucleated RBC % 0 05/19/22 05:55: Sodium 141, Potassium 3.7, Chloride 109 H, Carbon Dioxide 28.0, Anion Gap 4 L, BUN 45 H, Creatinine 1.11 H, Estim Creat Clear Calc 49.82, Est GFR (MDRD) Af Amer 64, Est GFR (MDRD) Non-Af 53 L, BUN/Creatinine Ratio 40.5 H, Glucose 101, Calcium 9.5, Magnesium 2.0, Total Bilirubin 0.50, AST 18, ALT 20, Alkaline Phosphatase 138 H, Total Protein 5.7 L, Albumin 2.4 L, Globulin 3.3, Albumin/Globulin Ratio 0.7 L D/C Instructions Discharge Diet: Low fat / Low cholesterol and 2000 mg Sodium Diet Weight Bearing Status: Weight bearing as tolerated Meaningful Use Info Meaningful Use Diagnoses (Choose all that apply): None applicable Discharge Plan Admission Admit Date/Time: 05/17/22 20:14 Primary Reason for Your Visit: Acute metabolic encephalopathy Attending Provider: Oksana Garces Primary Care Provider: Kevin Bah Consulting Providers: Jordy Sosa Instructions Additional Instructions / Restrictions: Take note of changes to your medications. Follow-up with psychiatry and primary care doctor for medication changes. You will be followed up by Home health team. Discharge Orders/Prescriptions Prescriptions: New gabapentin 300 mg capsule 300 mg PO BID 30 Days Qty: 60 0RF furosemide [Lasix] 20 mg tablet 20 mg PO DAILY 30 Days Qty: 30 0RF Continued [id number]-[id number] [Cerovite Senior] tablet 1 tab PO DAILY betamethasone valerate 0.1 % cream 1 applic topical BID PRN (Reason: skin irritation) Qty: 15 0RF cetirizine 10 mg tablet 10 mg PO DAILY Qty: 30 0RF lorazepam 1 mg tablet 1 mg PO BID PRN (Reason: anxiety) Qty: 60 0RF potassium chloride 10 mEq tablet extended release 10 meq PO DAILY Qty: 30 0RF Rx Instructions: DAILY WITH BREAKFAST topiramate 25 MG tablet 25 mg PO BID atorvastatin 20 MG tablet 20 mg PO QHS pantoprazole 40 MG tablet 40 mg PO BID PRN (Reason: stomach) levothyroxine 150 MCG tablet 150 mcg PO DAILY methadone 10 MG tablet 10 mg PO Q12H acetaminophen 500 MG tablet 500 mg PO Q6H PRN (Reason: Pain 1-10 Or Fever) albuterol sulfate 1 INHALER inhaler 2 puff INHALATION Q4H PRN PRN (Reason: Sob &/Or Wheezing) Combivent Respimat 1 PUFF inhaler 1 puff INHALATION Q6H PRN (Reason: Shortness Of Breath Or Wheezing) ondansetron 4 mg tablet,disintegrating 4 mg PO Q8H PRN (Reason: nausea and vomiting) 5 Days Qty: 14 0RF metolazone 2.5 mg tablet 2.5 mg PO DAILY PRN (Reason: swelling) Rx Instructions: TAKE 1 TABLET DAILY UP TO 5 DAYS A WEEK NEEDED FOR SWELLING. sennosides [Senna Lax] 8.6 mg tablet 8.6 mg PO DAILY Label Comments: take 1 tablet by mouth once daily lidocaine [AneCream5] 5 % Cream 1 applic TOPICAL TID PRN (Reason: Pain) ferrous sulfate 325 mg (65 mg iron) Tablet 325 mg PO DAILY nystatin 100,000 unit/gram cream 1 applic TOPICAL BID Label Comments: apply to affected area twice a day if needed for rash mupirocin 2 % ointment 1 applic TOPICAL DAILY PRN (Reason: Wound Care) Label Comments: apply to LEG WOUNDS -- DIRECTED -- FOR 10 DAYS polyethylene glycol 3350 17 gram/dose Powder 17 g PO DAILY fluticasone propionate 50 mcg/actuation [place],Suspension 2 spray INTRANASAL DAILY Rx Instructions: administer into each nostril cholecalciferol (vitamin D3) 25 mcg (1,000 unit) Capsule 25 mcg PO DAILY duloxetine 30 mg capsule,delayed release(DR/EC) 30 mg PO DAILY Label Comments: TAKE 1 CAPSULE BY MOUTHTONCE DAILY biotin 1 mg Tablet 1 mg PO DAILY calcium citrate 250 mg calcium Tablet 250 mg PO DAILY Artificial Tears([id number]) 0.1-0.3 % Drops 1 drp ophthalmic (eye) TID valacyclovir [Valtrex] 500 mg tablet 500 mg PO DAILY cyanocobalamin (vitamin B-12) 1,000 mcg Tablet 1,000 mcg PO DAILY (DME) hydrocolloid dressing [DuoDERM CGF Border Dressing] 4 X 4 bandage See Rx Instructions .ROUTE .MEDSUPPLY Qty: 5 6RF Rx Instructions: As directed Discontinued gabapentin 300 mg capsule 600 mg PO BID tizanidine [Zanaflex] 4 mg Tablet 4 mg PO BID PRN (Reason: MUSCLES) oxycodone-acetaminophen 5-325 mg Tablet 1 tab PO Q8H PRN (Reason: Pain) gabapentin 300 mg capsule 900 mg PO QHS Label Comments: take 2 capsules by mouth twice a day and 3 capsules at bedtime furosemide 20 mg tablet 20 mg PO BID Referrals / Follow Up: Moises Rivera DO [Med Staff - Refinery [employer]] - 05/23/22 10:00 am Kevin Bah MD [Primary Care Provider] - In 1 Week Disposition Disposition (needs filled in before D/C Order can be placed): Home Health Service Charges/Coding Visit Charges Inpatient E&M: 07069 Disch Hosp
--- NOTE | 2022-05-19 14:21 | CASEMGMT ---
Social Work SW met with pt to discuss discharge home. Pt crying and moaning during conversations stating it is due to pain. Pt stating she wants to return home and will feel better upon return home. Physician requesting psychiatric appointment and SW spoke with pt regarding this. Pt is agreeable and SW made appointment with Dr. Rivera and placed information in discharge packet. SHARITA spoke with pt dgt Adriane who is agreeable for pt to return home but states they are unable to take her as they cannot get her in and out of the car. Transportation set up with [facility] for 3:30 pickup via [facility]. Per Adriane, Pt's dgt Fabiana will be home when pt returns home and can assist with transfer when pt returns home. SW informed Adriane of psychiatric appointment and Adriane is agreeable to help pt set up transportation for this appointment. Pt updated of transportation and discharge time. Pt calling dgts to update. SIN left for Valeri at [facility] notifying of discharge home. SIN left for Mariela Stroud, Sales And Merchandising Associate at [facility] and discharge orders faxed. KRISHAN Foote
[2022-05-19] MEDS: LORazepam 2 MG/ML Syringe 0.5 MG IV (15:40)
[2022-05-19 16:00] VITALS: BP 122/90; PULSE 82; RESP 18; TEMP 36.4; O2SAT 96
== END 2022-05-19 16:00 | disposition home health service (06) | DRG 689 ==
LOC: ED 14:13 → MS3 21:18
PROVIDERS: Emergency Provider Emergency Medicine; PCP Internal Medicine; Visit Provider Internal Medicine
DX: N39.0 Urinary tract infection, site not specified (principal); G92.8 Other toxic encephalopathy; G82.20 Paraplegia, unspecified; N17.9 Acute kidney failure, unspecified; L97.911 Non-pressure chronic ulcer of unspecified part of right lower leg limited to breakdown of skin; L97.921 Non-pressure chronic ulcer of unspecified part of left lower leg limited to breakdown of skin; L89.151 Pressure ulcer of sacral region, stage 1; E86.0 Dehydration; J44.9 Chronic obstructive pulmonary disease, unspecified; E87.6 Hypokalemia; K21.9 Gastro-esophageal reflux disease without esophagitis; E83.42 Hypomagnesemia; F41.9 Anxiety disorder, unspecified; E03.9 Hypothyroidism, unspecified; F17.210 Nicotine dependence, cigarettes, uncomplicated; I87.2 Venous insufficiency (chronic) (peripheral); T42.6X5A Adverse effect of other antiepileptic and sedative-hypnotic drugs, initial encounter; T40.3X5A Adverse effect of methadone, initial encounter; G89.4 Chronic pain syndrome; R63.8 Other symptoms and signs concerning food and fluid intake; Z79.891 Long term (current) use of opiate analgesic; Z99.3 Dependence on wheelchair
CPT/HCPCS: 36415; 70450; 71046; 80048; 80053; 80307; 81001; 82570; 82803; 83690; 83735; 84439; 84443; 84481; 84484; 85025; 93005; 94640; 97162; 97166; 97530; 97802; 99285; J7030; J7040; A4216

== ENCOUNTER 2022-05-30 13:18 | Outpatient (RCR) | payer MEDICARE, MEDICAID, SELFPAY ==
[2022-05-24 00:18] VITALS: BP 100/59; PULSE 76; RESP 20; TEMP 36.3; BMI 32.3
[2022-05-30 14:10] VITALS: BP 104/64; PULSE 91; TEMP 35.9; BMI 32.3
--- NOTE | 2022-05-30 14:20 | WC ---
Pt cannot lay down for me to assess wounds on coccyx. Daughter reports that pt refuses to get out of her chair ever and will not wear wraps or use any compression or elevate. Pt states she's in to much pain and cannot. 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
--- NOTE | 2022-05-30 14:45 | PN.PCM_ITS ---
History of Present Illness Date of Service: 05/30/22 Chief Complaint: Sore on left buttocks History of Wound: Patient was referred by her ENVIRONMENTAL SOLUTIONS ENGINEER, Dr. Nevarez for pressure ulcers on her left medial buttocks/ischial area. Patient is wheelchair bound. She has a significant medical history of DM type 2, multiple back surgeries which eventually caused her become a paraplegic. Patient is a very poor historian and keeps falling asleep during her appointment. Patient is not sure how long she has had the pressure sore on her left medial buttocks, she is guessing a few months. She has been placing a cream on this area. She is unsure what cream it is. The ulcer cluster is painful to palpation. She states she sits in her wheelchair often more than 8 hours per day and will sometimes fall asleep in her chair. She does not have a special cushion for her wheelchair. She sleeps in a regular hospital bed, not a low air loss mattress. This week she has a new area on her left buttocks and a cluster on left coccyx cluster. These areas look like pressure. Wound care - Wash daily with soap and water. Place Collagen Hydrogel and cover with gauze daily to the left ischial ulcer, left buttock ulcer and sacral cluster and to the left abdomen ulcer. Try to off load as much as possible and try to avoid sitting for long periods of time. Wound culture obtained on 02/21/22 had not growth. Wound culture obtained on 10/18/21 which were positive for MRSE and Anaerobic cocci. Completed Doxycycline and Flagyl. Progress of Wound: Right abdominal ulcer is stable. New right anterior leg ulcer with fibrous tissue. Unable to visualize the left coccyx cluster, left buttock ulcer and left sacral ulcers were not visualized because the patient refused to turn over. She states she took methadone before coming to the wound center because her pain was so bad, but she is no not compliant and is not following directions. Objective Data Objective Data Vital Signs: Vital Signs Temp Pulse Resp BP 96.6 F L 91 20 H 104/64 05/30/22 14:10 05/30/22 14:10 05/24/22 00:18 05/30/22 14:10 Weight: 200 lb Body Mass Index (BMI) 32.3 Charges/Coding Procedures Integumentary [id number]: [id number] Shila subq tissue 20 sq cm/< Debridement Note Debridement Note Wound debrided: abdominal ulcer Laterality: Left Wound Grade/Stage: Stage II Type of Debridement: Excisional debridement Anesthesia Used: 5% Lidocaine Gel Depth: Down to and including healthy tissue and in the subcutaneous layer Percentage of wound debrided: 100 Instrument Used: 3mm curette Tissue Removed: Devitalized tissue and slough Severity: Fat Layer Exposed Amount of bleeding with debridement: Mild Bleeding Controlled with: Pressure Patient tolerated procedure: Patient tolerated procedure well Post-Debridement Measurements and Additional Note: Post-Debridement Measurements/Treatment WC - Nurse 1 - General Ulcer Assessment Start: 05/30/22 14:10 Freq: Status: Active Protocol: TAISHA Activity Type Activity Date Activity User E-sign Co-sign Detail Recorded Client Recorded Date Recorded By Document 05/30/22 14:10 TORI [id number] 05/30/22 14:19 TORI 05/30/22 14:10 WC - Today's Visit Information Type of service Follow-up Visit (Physician/INSTITUTIONAL COMMODITY ANALYST ) Arrival Mode Wheelchair Height and Weight Body Mass Index (BMI) 32.3 BMI Classification Obese Vital Signs Temperature (97.8 F-99.1 F) 96.6 F L Temperature Source Temporal Pulse Rate (60-100) 91 Pulse Location Monitor Blood Pressure (90/60-120/80) 104/64 Blood Pressure Mean (mm Hg) 77 Source Monitor History Since Last Visit- (Skip if this is Patient's initial visit) Have you changed medications since your No last visit? Any new allergies or adverse reactions No Had a fall/change in ADL's that may No increase risk of falls Signs or symptoms of abuse and/or No neglect since last visit Have you been in the hospital since your No last visit? Has dressing in place as prescribed No Has compression in place as prescribed No Has offloadiing in place as prescribed No Experienced any changes in pain level or No management Left Footwear Other Footwear (Comment) Right Footwear Other Footwear (Comment) Pain Scale: 0-10 Numeric Is Patient Pain Free? No - Nurse 1 - General Ulcer Measurement Start: 05/30/22 14:10 Freq: Status: Active Protocol: Activity Type Activity Date Activity User E-sign Co-sign Detail Recorded Client Recorded Date Recorded By Document 05/30/22 14:10 TORI [id number] 05/30/22 14:19 AK 11/07/22 14:10 Wound Center Nurse 1 #5 [place] -Combined with other wound No -Current Size (cm) - Length 3 -Current Size (cm) - Width 4 -Current Size (cm) - Depth 0.1 -Total Square Cm 12 -Photo Taken No -Tunneling No -Undermining/Tunneling No -Circular Undermining No -Change in Wound Grade/Stage No -Exudate Amt Medium -Exudate Type Serosanguineous -Wound Margin Distinct, Outline Attached -Granulation Amt Medium (34-66%) -Granulation Quality [place] -Slough/Fibrin Yes -Necrosis Amt Medium (34-66%) -Necrotic Tissue Type Adherent Slough -Structure Exposed N/A -Texture (Vivi-wound Skin Appearance) No Abnormality, Assessed -Moisture (Vivi-wound Skin Appearance) No Abnormality, Assessed -Color (Vivi-wound Skin Appearance) No Abnormality, Assessed -Temperature (Vivi-wound Skin No Abnormality Appearance) (Pt Warm) -Tenderness on Palpation (Vivi-wound No Skin Appearance) -Ulcer Cleansing Rinsed/ Irrigated with Saline -Foul Odor after Cleansing No -Anesthetic Used 4% Lidocaine Solution #4 Abdomen -Combined with other wound No -Current Size (cm) - Length 0.5 -Current Size (cm) - Width 1.5 -Current Size (cm) - Depth 0.1 -Total Square Cm 0.75 -Date of Last Picture (Recall this 05/30/22 field) -Photo Taken Yes -Tunneling No -Undermining/Tunneling No -Circular Undermining No -Change in Wound Grade/Stage No -Exudate Amt Small -Exudate Type Serosanguineous -Wound Margin Distinct, Outline Attached -Granulation Amt Medium (34-66%) -Granulation Quality Pale,[place] -Slough/Fibrin No -Necrosis Amt None Present (0 %) -Structure Exposed N/A -Texture (Vivi-wound Skin Appearance) No Abnormality, Assessed -Moisture (Vivi-wound Skin Appearance) No Abnormality, Assessed -Color (Vivi-wound Skin Appearance) No Abnormality, Assessed -Temperature (Vivi-wound Skin No Abnormality Appearance) (Pt Warm) -Tenderness on Palpation (Vivi-wound No Skin Appearance) -Ulcer Cleansing Rinsed/ Irrigated with Saline -Foul Odor after Cleansing No -Anesthetic Used 4% Lidocaine Solution #1 left ischium -Combined with other wound No -Current Size (cm) - Length 0.1 -Current Size (cm) - Width 0.1 -Current Size (cm) - Depth 0.1 -Total Square Cm 0.01 -Photo Taken No -Tunneling No -Undermining/Tunneling No -Circular Undermining No -Change in Wound Grade/Stage No -Exudate Amt None Present -Granulation Amt None Present (0 %) -Granulation Quality N/A -Slough/Fibrin No -Necrosis Amt None Present (0 %) -Structure Exposed N/A -Texture (Vivi-wound Skin Appearance) No Abnormality, Assessed -Moisture (Vivi-wound Skin Appearance) No Abnormality, Assessed -Color (Vivi-wound Skin Appearance) No Abnormality, Assessed -Temperature (Vivi-wound Skin No Abnormality Appearance) (Pt Warm) -Tenderness on Palpation (Vivi-wound No Skin Appearance) -Foul Odor after Cleansing No WC - Nurse 2 - General Ulcer CM Notes Start: 05/30/22 14:10 Freq: Status: Active Protocol: Activity Type Activity Date Activity User E-sign Co-sign Detail Recorded Client Recorded Date Recorded By Document 05/30/22 14:13 [id number] 05/30/22 14:18 05/30/22 14:13 Wound Center Nurse 2 5-right lower leg -Time 14:15 -Correct Patient Yes -Correct Side, Site, Position Yes -Correct Procedure Yes -Procedure Performed Yes -Type of Procedure Debridement -Clinical Debridement Subcutaneous -Tissue Removed Subcutaneous -Post Debridement (cm) - Length 3 -Post Debridement (cm) - Width 4 -Post Debridement (cm) - Depth 0.1 -Total Square (Post) (cm) 12 -Area of Debridement (cm) - Length 3 -Area of Debridement (cm) - Width 4 -Total Square (Area) (cm) 12 -Tunneling No -Undermining/Tunneling No -Circular Undermining No -Wound/Ulcer Outcome Not Healed -Ulcer Cleansing Rinsed/ Irrigated with Saline -Foul Odor after Cleansing No -Bioengineered Tissue No -Bleeding Controlled with Pressure -Treatment Response Procedure Tolerated Well -Offloading No -Debridement - Subq, 1st 20sq cm No #4 Abdomen -Time 14:14 -Correct Patient Yes -Correct Side, Site, Position Yes -Correct Procedure Yes -Procedure Performed Yes -Type of Procedure Debridement -Clinical Debridement Subcutaneous -Tissue Removed Subcutaneous -Post Debridement (cm) - Length 0.5 -Post Debridement (cm) - Width 1 -Post Debridement (cm) - Depth 0.1 -Total Square (Post) (cm) 0.5 -Area of Debridement (cm) - Length 0.5 -Area of Debridement (cm) - Width 1 -Total Square (Area) (cm) 0.5 -Tunneling No -Undermining/Tunneling No -Circular Undermining No -Wound/Ulcer Outcome Not Healed -Ulcer Cleansing Rinsed/ Irrigated with Saline -Foul Odor after Cleansing No -Bioengineered Tissue No -Bleeding Controlled with Pressure -Treatment Response Procedure Tolerated Well -Offloading No -Debridement - Subq, 1st 20sq cm Yes 3-coccyx cluster -Correct Patient No -Correct Side, Site, Position No -Correct Procedure No -Procedure Performed No -Wound/Ulcer Outcome Not Healed 2-left buttuvks -Correct Patient No -Correct Side, Site, Position No -Correct Procedure No -Procedure Performed No -Wound/Ulcer Outcome Not Healed #1 left ischium -Correct Patient No -Correct Side, Site, Position No -Correct Procedure No -Procedure Performed No -Wound/Ulcer Outcome Not Healed Pain Scale: 0-10 Numeric Is Patient Pain Free? Yes Additional Wound Wound debrided: anterior leg ulcer Laterality: Right Wound Grade/Stage: Stage II Type of Debridement: Excisional debridement Anesthesia Used: 5% Lidocaine Gel Depth: Down to and including healthy tissue and in the subcutaneous layer Percentage of wound debrided: 100 Instrument Used: 3mm curette Tissue Removed: non viable tissue and slough Severity: Fat Layer Exposed Amount of bleeding with debridement: Mild Bleeding Controlled with: Pressure Patient tolerated procedure: Patient tolerated procedure well Assessment/Plan Assessment/Plan (1) Decubitus ulcer of left perineal ischial region, stage 3: CODE(S): L89.323 - Pressure ulcer of left buttock, stage 3 (2) Decubitus ulcer of left buttock, stage 3: CODE(S): L89.323 - Pressure ulcer of left buttock, stage 3 (3) Decubitus ulcer of coccygeal region, stage 3: CODE(S): L89.153 - Pressure ulcer of sacral region, stage 3 (4) Wound, open, abdominal wall, anterior: CODE(S): S31.109A - Unspecified open wound of abdominal wall, unspecified quadrant without penetration into peritoneal cavity, initial encounter (5) Diabetes mellitus type 2, uncontrolled, without complications: CODE(S): E11.65 - Type 2 diabetes mellitus with hyperglycemia (6) Tobacco use disorder: CODE(S): F17.200 - Nicotine dependence, unspecified, uncomplicated (7) Paraplegia: CODE(S): G82.20 - Paraplegia, unspecified (8) Cellulitis of left leg: CODE(S): L03.116 - Cellulitis of left lower limb (9) Edema of both lower legs: CODE(S): R60.0 - Localized edema PLAN: Plan Patient was seen and evaluated in the wound center today. A subcutaneous debridement was performed. She refused to turn so her left ischial ulcer, left buttock ulcer and left coccyx ulcer cluster could be evaluated and debrided. She has continued to sit/sleep in her wheelchair for long periods of time, but with her new wheelchair she is able to tilt the seat back to help off load. Patient encouraged to off load frequently and to avoid sitting in her wheel chair for longer than 2 hours at a time. Wound care - Wash daily with soap and water daily. Place collagen hydrogel covered adaptic and topped with gauze daily to her left abdomen ulcer, left buttock, left ischial ulcer, and coccyx cluster. To the new right anterior leg ulcer place santyl nickel thickness, covered with gauze daily. Compression - Single layer tubigrip bilateral legs. Stressed the importance of off loading and not sitting in her chair too long. She also avoid laying on her back in bed for long periods of time because that is probably contributing to the coccyx area becoming pink and dry. Wound culture obtained 02/21/22 which was negative for bacterial growth. Wound culture obtained on 10/18/21 which were positive for MRSE and Anaerobic cocci. She completed Doxycycline and Flagyl. Encourage diet high in protein, low in carbohydrates. Encouraged increase in Vitamin C to 1,000 mg/day. Due to her history of diabetes and being a paraplegia, she is at increased risk for delayed wound healing, especially since she does not off load as she should. Stressed the importance of off loading and not staying her her wheel chair for long periods of time. Follow up two weeks. She is to call or come in sooner or go to the ED if she develops any issues or concerns.
== END 2022-06-22 23:59 | disposition home or self-care (01) ==
LOC: WC 13:18
PROVIDERS: PCP Internal Medicine; Visit Provider Nurse Practitioner Family
DX: E11.622 Type 2 diabetes mellitus with other skin ulcer (principal); L89.323 Pressure ulcer of left buttock, stage 3; L89.153 Pressure ulcer of sacral region, stage 3; L89.143 Pressure ulcer of left lower back, stage 3; G82.20 Paraplegia, unspecified; E11.65 Type 2 diabetes mellitus with hyperglycemia; L03.116 Cellulitis of left lower limb; R60.0 Localized edema; F17.200 Nicotine dependence, unspecified, uncomplicated
CPT/HCPCS: 11042

== ENCOUNTER 2022-07-11 13:00 | Outpatient (RCR) | payer MEDICARE, MEDICAID, SELFPAY ==
[2022-06-23 00:18] VITALS: BP 104/64; PULSE 91; RESP 20; TEMP 35.9; BMI 32.3
[2022-06-27 14:50] VITALS: BP 169/72; TEMP 36.1; BMI 32.3
--- NOTE | 2022-06-27 14:54 | PN.PCM_ITS ---
History of Present Illness Date of Service: 06/27/22 Chief Complaint: Sore on left buttocks History of Wound: Patient was referred by her [employer], Dr. Nevarez for pressure ulcers on her left medial buttocks/ischial area. Patient is wheelchair bound. She has a significant medical history of DM type 2, multiple back surgeries which eventually caused her become a paraplegic. Patient is a very poor historian and keeps falling asleep during her appointment. Patient is not sure how long she has had the pressure sore on her left medial buttocks, she is guessing a few months. She has been placing a cream on this area. She is unsure what cream it is. The ulcer cluster is painful to palpation. She states she sits in her wheelchair often more than 8 hours per day and will sometimes fall asleep in her chair. She does not have a special cushion for her wheelchair. She sleeps in a regular hospital bed, not a low air loss mattress. This week she has a new area on her left buttocks and a cluster on left coccyx cluster. These areas look like pressure. Wound care - Wash daily with soap and water. Place Collagen Hydrogel and cover with gauze daily to the left ischial ulcer, left buttock ulcer and sacral cluster and to the left abdomen ulcer. Try to off load as much as possible and try to avoid sitting for long periods of time. Wound culture obtained on 02/21/22 had not growth. Wound culture obtained on 10/18/21 which were positive for MRSE and Anaerobic cocci. Completed Doxycycline and Flagyl. Progress of Wound: Right abdominal ulcer, coccyx cluster ulcer, left ischium are healed. Left buttocks ulcer is stable, right anterior leg ulcer and posterior leg ulcers are stable, left anterior leg ulcer cluster and posterior leg ulcers are stable. She is experiencing a lot of discomfort in her back today. Objective Data Objective Data Vital Signs: Vital Signs Temp Pulse Resp BP 96.6 F L 91 20 H 104/64 06/23/22 00:18 06/23/22 00:18 06/23/22 00:18 06/23/22 00:18 Weight: 200 lb Body Mass Index (BMI) 32.3 Charges/Coding Procedures Integumentary 111xxx-113xx: [id number] Shila subq tissue 20 sq cm/< Add On Codes: 15309 Shila subq tissue add-on (x7) Debridement Note Debridement Note Wound debrided: buttocks ulcer Laterality: Left Wound Grade/Stage: stage II Type of Debridement: Excisional debridement Anesthesia Used: 5% Lidocaine Gel Depth: Down to and including healthy tissue and in the subcutaneous layer Percentage of wound debrided: 100 Instrument Used: 3mm curette Tissue Removed: Devitalized tissue and slough Severity: Fat Layer Exposed Amount of bleeding with debridement: Mild Bleeding Controlled with: Compression and gauze Patient tolerated procedure: Patient tolerated procedure well Post-Debridement Measurements and Additional Note: Post-Debridement Measurements/Treatment WC - Nurse 2 - General Ulcer CM Notes Start: 06/27/22 13:41 Freq: Status: Active Protocol: Activity Type Activity Date Activity User E-sign Co-sign Detail Recorded Client Recorded Date Recorded By Document 06/27/22 14:13 ELLIE [id number] 06/27/22 14:32 ELLIE 06/27/22 14:13 Wound Center Nurse 2 #4 Abdomen -Correct Patient No -Correct Side, Site, Position No -Correct Procedure No -Procedure Performed No -Post Debridement (cm) - Length 0 -Post Debridement (cm) - Width 0 -Post Debridement (cm) - Depth 0 -Total Square (Post) (cm) 0 -Area of Debridement (cm) - Length 0 -Area of Debridement (cm) - Width 0 -Total Square (Area) (cm) 0 -Wound/Ulcer Outcome Healed- Epithelialized 3-coccyx cluster -Correct Patient No -Correct Side, Site, Position No -Correct Procedure No -Procedure Performed No -Post Debridement (cm) - Length 0 -Post Debridement (cm) - Width 0 -Post Debridement (cm) - Depth 0 -Total Square (Post) (cm) 0 -Area of Debridement (cm) - Length 0 -Area of Debridement (cm) - Width 0 -Total Square (Area) (cm) 0 -Wound/Ulcer Outcome Healed- Epithelialized #1 left ischium -Correct Patient No -Correct Side, Site, Position No -Correct Procedure No -Procedure Performed No -Post Debridement (cm) - Length 0 -Post Debridement (cm) - Width 0 -Post Debridement (cm) - Depth 0 -Total Square (Post) (cm) 0 -Area of Debridement (cm) - Length 0 -Area of Debridement (cm) - Width 0 -Total Square (Area) (cm) 0 -Wound/Ulcer Outcome Healed- Epithelialized 8-left diego cluster -Time 14:22 -Correct Patient Yes -Correct Side, Site, Position Yes -Correct Procedure Yes -Procedure Performed Yes -Type of Procedure Debridement -Clinical Debridement Subcutaneous -Tissue Removed Subcutaneous -Post Debridement (cm) - Length 11 -Post Debridement (cm) - Width 11.5 -Post Debridement (cm) - Depth 0.1 -Total Square (Post) (cm) 126.5 -Area of Debridement (cm) - Length 11 -Area of Debridement (cm) - Width 11.5 -Total Square (Area) (cm) 126.5 -Tunneling No -Undermining/Tunneling No -Circular Undermining No -Wound/Ulcer Outcome Not Healed -Ulcer Cleansing Rinsed/ Irrigated with Saline -Foul Odor after Cleansing No -Bioengineered Tissue No -Bleeding Controlled with Pressure -Treatment Response Procedure Tolerated Well -Offloading No -Debridement - Subq, 1st 20sq cm No 7-left posterior leg -Time 14:22 -Correct Patient Yes -Correct Side, Site, Position Yes -Correct Procedure Yes -Procedure Performed Yes -Type of Procedure Debridement -Clinical Debridement Subcutaneous -Tissue Removed Subcutaneous -Post Debridement (cm) - Length 1.5 -Post Debridement (cm) - Width 0.5 -Post Debridement (cm) - Depth 0.1 -Total Square (Post) (cm) 0.75 -Area of Debridement (cm) - Length 1.5 -Area of Debridement (cm) - Width 0.5 -Total Square (Area) (cm) 0.75 -Tunneling No -Undermining/Tunneling No -Circular Undermining No -Wound/Ulcer Outcome Not Healed -Ulcer Cleansing Rinsed/ Irrigated with Saline -Foul Odor after Cleansing No -Bioengineered Tissue No -Bleeding Controlled with Pressure -Treatment Response Procedure Tolerated Well -Offloading No -Debridement - Subq, 1st 20sq cm Yes -Debridement, SubQ, ea addt'l 20sq cm 7 or part thereof #6 R diego -Time 14:16 -Correct Patient Yes -Correct Side, Site, Position Yes -Correct Procedure Yes -Procedure Performed Yes -Type of Procedure Debridement -Clinical Debridement Subcutaneous -Tissue Removed Subcutaneous -Post Debridement (cm) - Length 3.3 -Post Debridement (cm) - Width 4.8 -Post Debridement (cm) - Depth 0.1 -Total Square (Post) (cm) 15.84 -Area of Debridement (cm) - Length 3.3 -Area of Debridement (cm) - Width 4.8 -Total Square (Area) (cm) 15.84 -Tunneling No -Undermining/Tunneling No -Circular Undermining No -Wound/Ulcer Outcome Not Healed -Ulcer Cleansing Rinsed/ Irrigated with Saline -Foul Odor after Cleansing No -Bioengineered Tissue No -Bleeding Controlled with Pressure -Treatment Response Procedure Tolerated Well -Offloading No -Debridement - Subq, 1st 20sq cm No 5-right posterior lower leg -Time 14:19 -Correct Patient Yes -Correct Side, Site, Position Yes -Correct Procedure Yes -Procedure Performed Yes -Type of Procedure Debridement -Clinical Debridement Subcutaneous -Tissue Removed Subcutaneous -Post Debridement (cm) - Length 1.0 -Post Debridement (cm) - Width 4.0 -Post Debridement (cm) - Depth 0.1 -Total Square (Post) (cm) 4.00 -Area of Debridement (cm) - Length 1.0 -Area of Debridement (cm) - Width 4.0 -Total Square (Area) (cm) 4.00 -Tunneling No -Undermining/Tunneling No -Circular Undermining No -Wound/Ulcer Outcome Not Healed -Ulcer Cleansing Rinsed/ Irrigated with Saline -Foul Odor after Cleansing No -Bioengineered Tissue No -Bleeding Controlled with Pressure -Treatment Response Procedure Tolerated Well -Offloading No -Debridement - Subq, 1st 20sq cm No 2-left buttuvks -Time 14:30 -Correct Patient Yes -Correct Side, Site, Position Yes -Correct Procedure Yes -Procedure Performed Yes -Type of Procedure Debridement -Clinical Debridement Subcutaneous -Tissue Removed Subcutaneous -Post Debridement (cm) - Length 1.7 -Post Debridement (cm) - Width 2.5 -Post Debridement (cm) - Depth 0.1 -Total Square (Post) (cm) 4.25 -Area of Debridement (cm) - Length 1.7 -Area of Debridement (cm) - Width 2.5 -Total Square (Area) (cm) 4.25 -Tunneling No -Undermining/Tunneling No -Circular Undermining No -Wound/Ulcer Outcome Not Healed -Ulcer Cleansing Rinsed/ Irrigated with Saline -Foul Odor after Cleansing No -Bioengineered Tissue No -Bleeding Controlled with Pressure -Treatment Response Procedure Tolerated Well -Offloading No -Debridement - Subq, 1st 20sq cm No Pain Scale: 0-10 Numeric Is Patient Pain Free? Yes - Nurse 3 - General Ulcer D/C NN Start: 06/27/22 13:41 Freq: Status: Active Protocol: Activity Type Activity Date Activity User E-sign Co-sign Detail Recorded Client Recorded Date Recorded By Document 06/27/22 14:36 DL [id number] 06/27/22 14:41 DL 06/27/22 14:36 Wound Care Nurse 3 8-right diego cluster -Ulcer Cleansing Rinsed/ Irrigated with Saline -Foul Odor after Cleansing No -Primary Dressing Applied NonAdherent Contact Layer, Silvercel -Primary Dressing Covered/Secured with Dry Gauze, Secured with Tape -Other Covering ABD -Silvercel 1 7-left posterior leg -Ulcer Cleansing Rinsed/ Irrigated with Saline -Foul Odor after Cleansing No -Primary Dressing Applied NonAdherent Contact Layer -Other Dressing silvercell -Primary Dressing Covered/Secured with Dry Gauze, Secured with Tape #6 R diego -Ulcer Cleansing Rinsed/ Irrigated with Saline -Foul Odor after Cleansing No -Primary Dressing Applied NonAdherent Contact Layer -Other Dressing silvercell -Other Covering abd 5-right posterior lower leg -Ulcer Cleansing Rinsed/ Irrigated with Saline -Foul Odor after Cleansing No -Primary Dressing Applied NonAdherent Contact Layer -Other Dressing silvercell -Primary Dressing Covered/Secured with Dry Gauze, Secured with Tape -Other Covering abd 2-left buttuvks -Ulcer Cleansing Rinsed/ Irrigated with Saline -Foul Odor after Cleansing No -Primary Dressing Applied NonAdherent Contact Layer -Other Dressing silvercell -Primary Dressing Covered/Secured with Dry Gauze, Secured with Tape Treatment Response Procedure Tolerated Well Pain Scale: 0-10 Numeric Is Patient Pain Free? Yes - Visit Discharge Discharge Condition Stable Ambulatory Status Wheelchair Transportation Private Auto Facility Type Home Health Orders Sent Yes Additional Wound Wound debrided: right anterior leg ulcer cluster and right posterior leg ulcer Laterality: Right Wound Grade/Stage: Stage II Type of Debridement: Excisional debridement Anesthesia Used: 5% Lidocaine Gel Depth: Down to and including healthy tissue and in the subcutaneous layer Percentage of wound debrided: 100 Instrument Used: 3mm curette Tissue Removed: non viable tissue and slough Severity: Fat Layer Exposed Amount of bleeding with debridement: Mild Bleeding Controlled with: Pressure Patient tolerated procedure: Patient tolerated procedure well Additional Wound Wound debrided: anterior leg ulcer and posterior leg ulcer Laterality: Left Wound Grade/Stage: stage II Type of Debridement: Excisional debridement Anesthesia Used: 5% Lidocaine Gel Depth: Down to and including healthy tissue and in the subcutaneous layer Percentage of wound debrided: 100 Instrument Used: 5mm curette Tissue Removed: Devitalized tissue and slough Severity: Fat Layer Exposed Amount of bleeding with debridement: Mild Bleeding Controlled with: Compression and gauze Patient tolerated procedure: Patient tolerated procedure well Assessment/Plan Assessment/Plan (1) Decubitus ulcer of left perineal ischial region, stage 3: CODE(S): L89.323 - Pressure ulcer of left buttock, stage 3 (2) Decubitus ulcer of left buttock, stage 3: CODE(S): L89.323 - Pressure ulcer of left buttock, stage 3 (3) Decubitus ulcer of coccygeal region, stage 3: CODE(S): L89.153 - Pressure ulcer of sacral region, stage 3 (4) Wound, open, abdominal wall, anterior: CODE(S): S31.109A - Unspecified open wound of abdominal wall, unspecified quadrant without penetration into peritoneal cavity, initial encounter (5) Diabetes mellitus type 2, uncontrolled, without complications: CODE(S): E11.65 - Type 2 diabetes mellitus with hyperglycemia (6) Ulcer of left lower extremity with fat layer exposed: CODE(S): L97.922 - Non-pressure chronic ulcer of unspecified part of left lower leg with fat layer exposed (7) Ulcer of right lower extremity with fat layer exposed: CODE(S): L97.912 - Non-pressure chronic ulcer of unspecified part of right lower leg with fat layer exposed (8) Paraplegia: CODE(S): G82.20 - Paraplegia, unspecified (9) Edema of both lower legs: CODE(S): R60.0 - Localized edema (10) Tobacco use disorder: CODE(S): F17.200 - Nicotine dependence, unspecified, uncomplicated PLAN: Plan Patient was seen and evaluated in the wound center today. She has continued to sit/sleep in her wheelchair for long periods of time, but with her new wheelchair she is able to tilt the seat back to help off load. Patient encouraged to off load frequently and to avoid sitting in her wheel chair for longer than 2 hours at a time. Abdominal ulcer, coccyx cluster and left ischium ulcers are healed today. Wound care - Wash daily with soap and water daily. Place Adaptic, covered with silvercel and topped with gauze daily to her right anterior leg ulcer cluster, right posterior leg ulcer, left anterior leg ulcer and left posterior leg ulcer. Left buttock place silvercel topped with gauze daily. Compression - Single layer tubigrip bilateral legs. Stressed the importance of off loading and not sitting in her chair too long. She also avoid laying on her back in bed for long periods of time because that is probably contributing to the coccyx area becoming pink and dry. Wound culture obtained 02/21/22 which was negative for bacterial growth. Wound culture obtained on 10/18/21 which were positive for MRSE and Anaerobic cocci. She completed Doxycycline and Flagyl. Encourage diet high in protein, low in carbohydrates. Encouraged increase in Vitamin C to 1,000 mg/day. Due to her history of diabetes and being a paraplegia, she is at increased risk for delayed wound healing, especially since she does not off load as she should. Stressed the importance of off loading and not staying her her wheel chair for long periods of time. Follow up two weeks. She is to call or come in sooner or go to the ED if she develops any issues or concerns.
--- NOTE | 2022-07-11 09:26 | ART_ITS ---
Reason For Study: LE Ulcers Procedure A bilateral lower extremity continuous wave Doppler with analog waveform analysis,segmental pressures,and ankle brachial indexes without exercise. Left Segmental Pressures Left brachial= 153mmHg. Left thigh = 177mmHg. Left calf = 146mmHg. Left posterior tibial artery = 144mmHg. Left dorsalis pedis artery = 146mmHg. Left digit = 94 mmHg. The left posterior tibial artery waveforms are biphasic. The left dorsalis pedis waveforms are biphasic. Right Segmental Pressures Right brachial= 141mmHg. Right posterior tibial artery = 154mmHg. Right dorsalis pedis artery = 165mmHg. Right digit = 87 mmHg. The right posterior tibial artery waveforms are biphasic. The right dorsalis pedis waveforms are biphasic. Indices The right ankle brachial index by the posterior tibial artery is 1.01. The right ankle brachial index by the dorsalis pedis is 1.08. The right digital-brachial index is 0.57. The left ankle brachial index by the posterior tibial artery is 0.94. The left ankle brachial index by the dorsalis pedis is 0.95. The left digital-brachial index is 0.61. VL/Lower Ext Art Exam w/o Exercis Interpretation Summary Biphasic Doppler waveforms are noted at ankle level bilaterally. Pulse-volume r ecordings appear diminished at digital level bilaterally and at low thigh, calf, and ankle level on the left, but satisfactory at all other levels bilaterally. Resting ankle-brachial indices ar e normal bilaterally. Digital-brachial indices are mildly diminished bilaterally. Arterial flow appears normal at ankle level bilaterally. There is evidence of m ild arterial occlusive disease at digital level bilaterally. Ordering Physician: Ayanna Jameson Referring Physician: Kevin Bah M.D. Performed By: Barrington Robles RVT
--- NOTE | 2022-07-11 09:26 | VDLE_ITS ---
Reason For Study: LEG EDEMA RIGHT LEFT CFV is compressible, spontaneous, phasic, CFV is compressible, spontaneous, continuous, competent and demonstrates normal competent and demonstrates normal augmentation. augmentation. FV is compressible, spontaneous, phasic, FV is compressible, spontaneous, continuous, competent and demonstrates normal competent and demonstrates normal augmentation. augmentation. POP V is compressible, spontaneous, phasic, POP V is compressible, spontaneous, competent and demonstrates normal continuous, competent and demonstrates normal augmentation. augmentation. T/P Trunk is compressible. T/P Trunk is compressible. PTV is compressible. PTV is compressible. RT PerV is compressible. RT PerV is compressible. Calf veins visualized in segments due to Calf veins visualized in segments due to swelling and edema swelling and edema. Continuous flow noted throughout GSV and SSV. Continuous flow noted throughout GSV and SSV. SFJ is competent and measures 0.63 x 0.69 cm. SFJ is competent and measures 0.90 x 0.84 cm. GSV proximal thigh measures 0.52 x 0.53 cm. GSV proximal thigh measures 0.70 x 0.75 cm. GSV at knee measures 0.40 x 0.40 cm. GSV at knee measures 0.50 x 0.51 cm. GSV is competent throughout. GSV is competent throughout. SSV proximal calf is competent and measures SSV proximal calf is competent and measures 0.48 x 0.46 cm. 0.26 x 0.26 cm. Procedure This is a venous duplex using B-mode, color flow and spectral Doppler. Exam performed in department. The study was technically difficult. Unable to place patient in Reverse Trendelenberg position due to immobility and history of spine surgery. VL/Venous Duplex US - Arturo Extrem Interpretation Summary Deep veins of the lower extremities are bilaterally patent and compressible seg mentally. There is no evidence of deep vein thrombosis on either side. Valvular competence appears in tact within the proximal deep venous systems bilaterally. The great saphenous veins appear bila terally patent and compressible segmentally. Sapheno-femoral junctions are bilaterally competent . Valvular competence appears to be intact segmentally within the great saphenous veins bilaterally. Small saphenous veins are patent and competent bilaterally. Portions of the deep veins of both calves were not visualized due to swelling and edema. Non-phasic venous flow in the left lower extremity d eep venous system may be indicative of venous outflow obstruction or stenosis. Clinical correlation i s advised. Ordering Physician: Ayanna Jameson Referring Physician: Kevin Bah M.D. Performed By: Barrington Robles RVT
[2022-07-11 13:12] VITALS: BP 178/88; PULSE 88; TEMP 35.7; BMI 32.3
--- NOTE | 2022-07-11 14:29 | PN.PCM_ITS ---
History of Present Illness Date of Service: 07/11/22 Chief Complaint: Sore on left buttocks History of Wound: Patient was referred by her MATERIAL HANDLER LOADER, Dr. Nevarez for pressure ulcers on her left medial buttocks/ischial area. Patient is wheelchair bound. She has a significant medical history of DM type 2, multiple back surgeries which eventually caused her become a paraplegic. Patient is a very poor historian and keeps falling asleep during her appointment. Patient is not sure how long she has had the pressure sore on her left medial buttocks, she is guessing a few months. She has been placing a cream on this area. She is unsure what cream it is. The ulcer cluster is painful to palpation. She states she sits in her wheelchair often more than 8 hours per day and will sometimes fall asleep in her chair. She does not have a special cushion for her wheelchair. She sleeps in a regular hospital bed, not a low air loss mattress. This week she has a new area on her left buttocks and a cluster on left coccyx cluster. These areas look like pressure. Wound care - Wash daily with soap and water. Place Collagen Hydrogel and cover with gauze daily to the left ischial ulcer, left buttock ulcer and sacral cluster and to the left abdomen ulcer. Try to off load as much as possible and try to avoid sitting for long periods of time. Wound culture obtained on 02/21/22 had not growth. Wound culture obtained on 10/18/21 which were positive for MRSE and Anaerobic cocci. Completed Doxycycline and Flagyl. Progress of Wound: Right abdominal ulcer, coccyx cluster ulcer, left ischium remain healed. Left buttocks ulcer is stable. Right anterior leg ulcer and posterior leg ulcers and left anterior leg ulcer cluster and posterior leg ulcers are healed. She is experiencing bilateral lower leg edema which is worse on the left. She also is complaining of red, itchy rash in her groin and pannus skin folds and vaginal itching. Objective Data Objective Data Vital Signs: Vital Signs Temp Pulse Resp BP 96.3 F L 88 20 H 178/88 H 07/11/22 13:12 07/11/22 13:12 06/23/22 00:18 07/11/22 13:12 Weight: 200 lb Body Mass Index (BMI) 32.3 Charges/Coding Procedures Integumentary 111xxx-113xx: [id number] Shila subq tissue 20 sq cm/< Debridement Note Debridement Note Wound debrided: buttocks ulcer Laterality: Left Wound Grade/Stage: stage II Type of Debridement: Excisional debridement Anesthesia Used: 5% Lidocaine Gel Depth: Down to and including healthy tissue and in the subcutaneous layer Percentage of wound debrided: 100 Instrument Used: 3mm curette Tissue Removed: Devitalized tissue and slough Severity: Fat Layer Exposed Amount of bleeding with debridement: Mild Bleeding Controlled with: Compression and gauze Patient tolerated procedure: Patient tolerated procedure well Post-Debridement Measurements and Additional Note: Post-Debridement Measurements/Treatment - Nurse 1 - General Ulcer Assessment Start: 06/27/22 13:41 Freq: Status: Active Protocol: TAISHA Activity Type Activity Date Activity User E-sign Co-sign Detail Recorded Client Recorded Date Recorded By Document 06/27/22 14:50 TORI [id number] 06/27/22 14:55 DE Document 07/11/22 13:12 DE [id number] 07/11/22 13:16 DE 06/27/22 07/11/22 14:50 13:12 - Today's Visit Information Type of service Follow-up Visit Follow-up Visit (Physician/MICROARRAY SPECIALIST (Physician/MICROARRAY SPECIALIST ) ) Arrival Mode Wheelchair Wheelchair Patient Identification Verified (Name & Yes Yes ) Patient Requires Transmission-Based No Precautions Safety Precautions NA Height and Weight Body Mass Index (BMI) 32.3 32.3 BMI Classification Obese Obese Vital Signs Temperature (97.8 F-99.1 F) 96.9 F L 96.3 F L Temperature Source Temporal Temporal Pulse Rate (60-100) 88 Pulse Location Monitor Blood Pressure (90/60-120/80) 169/72 H 178/88 H Blood Pressure Mean (mm Hg) 104 118 Source Monitor Monitor History Since Last Visit- (Skip if this is Patient's initial visit) Have you changed medications since your No No last visit? Any new allergies or adverse reactions No No Had a fall/change in ADL's that may No No increase risk of falls Signs or symptoms of abuse and/or No No neglect since last visit Have you been in the hospital since your No No last visit? Has dressing in place as prescribed Yes Yes Has compression in place as prescribed Yes No Has offloadiing in place as prescribed Yes N/A Experienced any changes in pain level or No No management Left Footwear Slipper Slipper Right Footwear Slipper Slipper Pain Scale: 0-10 Numeric Is Patient Pain Free? No No WC - Nurse 1 - General Ulcer Measurement Start: 06/27/22 13:41 Freq: Status: Active Protocol: Activity Type Activity Date Activity User E-sign Co-sign Detail Recorded Client Recorded Date Recorded By Document 06/27/22 14:50 DE [id number] 06/27/22 14:55 AK Document 07/11/22 13:12 DE [id number] 07/11/22 13:16 AK 06/27/22 07/11/22 14:50 13:12 Wound Center Nurse 1 8-right diego cluster -Combined with other wound No -Current Size (cm) - Length 3.5 -Current Size (cm) - Width 5.5 -Current Size (cm) - Depth 0.1 -Total Square Cm 19.25 -Date of Last Picture (Recall this 06/27/22 field) -Photo Taken Yes -Tunneling No -Undermining/Tunneling No -Circular Undermining No -Change in Wound Grade/Stage No -Exudate Amt Large -Exudate Type Serosanguineous -Wound Margin Distinct, Outline Attached -Granulation Amt None Present (0 %) -Granulation Quality N/A -Slough/Fibrin No -Necrosis Amt Medium (34-66%) -Necrotic Tissue Type Adherent Slough -Structure Exposed N/A -Texture (Vivi-wound Skin Appearance) No Abnormality, Assessed -Moisture (Vivi-wound Skin Appearance) Assessed, Weeping -Color (Vivi-wound Skin Appearance) No Abnormality, Assessed -Temperature (Vivi-wound Skin No Abnormality Appearance) (Pt Warm) -Tenderness on Palpation (Vivi-wound No Skin Appearance) -Ulcer Cleansing Rinsed/ Irrigated with Saline -Foul Odor after Cleansing No -Anesthetic Used 5% Lidocaine Gel 7-left posterior leg -Combined with other wound No -Current Size (cm) - Length 0.2 -Current Size (cm) - Width 0.3 -Current Size (cm) - Depth 0.1 -Total Square Cm 0.06 -Photo Taken No -Tunneling No -Undermining/Tunneling No -Circular Undermining No -Change in Wound Grade/Stage No -Exudate Amt Large -Exudate Type Serosanguineous -Wound Margin Distinct, Outline Attached -Granulation Amt None Present (0 %) -Granulation Quality N/A -Slough/Fibrin Yes -Necrosis Amt Small (1-33%) -Necrotic Tissue Type Adherent Slough -Structure Exposed N/A -Texture (Vivi-wound Skin Appearance) No Abnormality, Assessed -Moisture (Vivi-wound Skin Appearance) Assessed, Weeping -Color (Vivi-wound Skin Appearance) No Abnormality, Assessed -Temperature (Vivi-wound Skin No Abnormality Appearance) (Pt Warm) -Tenderness on Palpation (Vivi-wound No Skin Appearance) -Ulcer Cleansing Rinsed/ Irrigated with Saline -Foul Odor after Cleansing No -Anesthetic Used 5% Lidocaine Gel #6 R [place] -Combined with other wound No 2-left buttocks -Combined with other wound No No -Current Size (cm) - Length 1.3 1.8 -Current Size (cm) - Width 2 1.4 -Current Size (cm) - Depth 0.1 0.1 -Total Square Cm 2.6 2.52 -Date of Last Picture (Recall this 06/27/22 07/11/22 field) -Photo Taken Yes Yes -Tunneling No No -Undermining/Tunneling No No -Circular Undermining No No -Classification - Thickness Partial Thickness -Change in Wound Grade/Stage No No -Exudate Amt Large Medium -Exudate Type Yellow/Green Serosanguineous -Wound Margin Distinct, Distinct, Outline Outline Attached Attached -Granulation Amt None Present (0 Large (67-100%) %) -Granulation Quality N/A [place] -Slough/Fibrin Yes Yes -Necrosis Amt Large (67-100%) Small (1-33%) -Necrotic Tissue Type Adherent Slough Adherent Slough -Structure Exposed N/A N/A -Texture (Vivi-wound Skin Appearance) No Abnormality, No Abnormality, Assessed Assessed -Moisture (Vivi-wound Skin Appearance) Assessed, No Abnormality, Weeping Assessed -Color (Vivi-wound Skin Appearance) No Abnormality, No Abnormality, Assessed Assessed -Temperature (Vivi-wound Skin No Abnormality No Abnormality Appearance) (Pt Warm) (Pt Warm) -Tenderness on Palpation (Vivi-wound No No Skin Appearance) -Ulcer Cleansing Soap and Water Rinsed/ Irrigated with Saline -Foul Odor after Cleansing No No -Anesthetic Used 5% Lidocaine 5% Lidocaine Gel Gel Point of measurement (cm from the medial 34 instep) Point of Measurement (cm from the medial 28 instep) Left Calf (cm) 38 Left Ankle (cm) 29 WC - Nurse 2 - General Ulcer CM Notes Start: 06/27/22 13:41 Freq: Status: Active Protocol: Activity Type Activity Date Activity User E-sign Co-sign Detail Recorded Client Recorded Date Recorded By Document 06/27/22 14:13 [id number] 06/27/22 14:32 Document 07/11/22 13:30 [id number] 07/11/22 13:34 06/27/22 07/11/22 14:13 13:30 Wound Center Nurse 2 8-right diego cluster -Time 14:22 -Correct Patient Yes No -Correct Side, Site, Position Yes No -Correct Procedure Yes No -Procedure Performed Yes No -Type of Procedure Debridement -Clinical Debridement Subcutaneous -Tissue Removed Subcutaneous -Post Debridement (cm) - Length 11 -Post Debridement (cm) - Width 11.5 -Post Debridement (cm) - Depth 0.1 -Total Square (Post) (cm) 126.5 -Area of Debridement (cm) - Length 11 -Area of Debridement (cm) - Width 11.5 -Total Square (Area) (cm) 126.5 -Tunneling No -Undermining/Tunneling No -Circular Undermining No -Wound/Ulcer Outcome Not Healed Healed- Epithelialized -Ulcer Cleansing Rinsed/ Irrigated with Saline -Foul Odor after Cleansing No -Bioengineered Tissue No -Bleeding Controlled with Pressure -Treatment Response Procedure Tolerated Well -Offloading No -Debridement - Subq, 1st 20sq cm No 7-left posterior leg -Time 14:22 -Correct Patient Yes No -Correct Side, Site, Position Yes No -Correct Procedure Yes No -Procedure Performed Yes No -Type of Procedure Debridement -Clinical Debridement Subcutaneous -Tissue Removed Subcutaneous -Post Debridement (cm) - Length 1.5 0 -Post Debridement (cm) - Width 0.5 0 -Post Debridement (cm) - Depth 0.1 0 -Total Square (Post) (cm) 0.75 0 -Area of Debridement (cm) - Length 1.5 0 -Area of Debridement (cm) - Width 0.5 0 -Total Square (Area) (cm) 0.75 0 -Tunneling No -Undermining/Tunneling No -Circular Undermining No -Wound/Ulcer Outcome Not Healed Healed- Epithelialized -Ulcer Cleansing Rinsed/ Irrigated with Saline -Foul Odor after Cleansing No -Bioengineered Tissue No -Bleeding Controlled with Pressure -Treatment Response Procedure Tolerated Well -Offloading No -Debridement - Subq, 1st 20sq cm Yes -Debridement, SubQ, ea addt'l 20sq cm 7 or part thereof #6 R [place] -Time 14:16 -Correct Patient Yes No -Correct Side, Site, Position Yes No -Correct Procedure Yes No -Procedure Performed Yes No -Type of Procedure Debridement -Clinical Debridement Subcutaneous -Tissue Removed Subcutaneous -Post Debridement (cm) - Length 3.3 0 -Post Debridement (cm) - Width 4.8 0 -Post Debridement (cm) - Depth 0.1 0 -Total Square (Post) (cm) 15.84 0 -Area of Debridement (cm) - Length 3.3 0 -Area of Debridement (cm) - Width 4.8 0 -Total Square (Area) (cm) 15.84 0 -Tunneling No -Undermining/Tunneling No -Circular Undermining No -Wound/Ulcer Outcome Not Healed Healed- Epithelialized -Ulcer Cleansing Rinsed/ Irrigated with Saline -Foul Odor after Cleansing No -Bioengineered Tissue No -Bleeding Controlled with Pressure -Treatment Response Procedure Tolerated Well -Offloading No -Debridement - Subq, 1st 20sq cm No 5-right posterior lower leg -Time 14:19 -Correct Patient Yes No -Correct Side, Site, Position Yes No -Correct Procedure Yes No -Procedure Performed Yes No -Type of Procedure Debridement -Clinical Debridement Subcutaneous -Tissue Removed Subcutaneous -Post Debridement (cm) - Length 1.0 0 -Post Debridement (cm) - Width 4.0 0 -Post Debridement (cm) - Depth 0.1 0 -Total Square (Post) (cm) 4.00 0 -Area of Debridement (cm) - Length 1.0 0 -Area of Debridement (cm) - Width 4.0 0 -Total Square (Area) (cm) 4.00 0 -Tunneling No -Undermining/Tunneling No -Circular Undermining No -Wound/Ulcer Outcome Not Healed Healed- Epithelialized -Ulcer Cleansing Rinsed/ Irrigated with Saline -Foul Odor after Cleansing No -Bioengineered Tissue No -Bleeding Controlled with Pressure -Treatment Response Procedure Tolerated Well -Offloading No -Debridement - Subq, 1st 20sq cm No #4 Abdomen -Correct Patient No -Correct Side, Site, Position No -Correct Procedure No -Procedure Performed No -Post Debridement (cm) - Length 0 -Post Debridement (cm) - Width 0 -Post Debridement (cm) - Depth 0 -Total Square (Post) (cm) 0 -Area of Debridement (cm) - Length 0 -Area of Debridement (cm) - Width 0 -Total Square (Area) (cm) 0 -Wound/Ulcer Outcome Healed- Epithelialized 3-coccyx cluster -Correct Patient No -Correct Side, Site, Position No -Correct Procedure No -Procedure Performed No -Post Debridement (cm) - Length 0 -Post Debridement (cm) - Width 0 -Post Debridement (cm) - Depth 0 -Total Square (Post) (cm) 0 -Area of Debridement (cm) - Length 0 -Area of Debridement (cm) - Width 0 -Total Square (Area) (cm) 0 -Wound/Ulcer Outcome Healed- Epithelialized #1 left ischium -Correct Patient No -Correct Side, Site, Position No -Correct Procedure No -Procedure Performed No -Post Debridement (cm) - Length 0 -Post Debridement (cm) - Width 0 -Post Debridement (cm) - Depth 0 -Total Square (Post) (cm) 0 -Area of Debridement (cm) - Length 0 -Area of Debridement (cm) - Width 0 -Total Square (Area) (cm) 0 -Wound/Ulcer Outcome Healed- Epithelialized 2-left buttocks -Time 14:30 13:31 -Correct Patient Yes Yes -Correct Side, Site, Position Yes Yes -Correct Procedure Yes Yes -Procedure Performed Yes Yes -Type of Procedure Debridement Debridement -Clinical Debridement Subcutaneous Subcutaneous -Tissue Removed Subcutaneous Subcutaneous -Post Debridement (cm) - Length 1.7 1.3 -Post Debridement (cm) - Width 2.5 2.3 -Post Debridement (cm) - Depth 0.1 0.1 -Total Square (Post) (cm) 4.25 2.99 -Area of Debridement (cm) - Length 1.7 1.3 -Area of Debridement (cm) - Width 2.5 2.3 -Total Square (Area) (cm) 4.25 2.99 -Tunneling No No -Undermining/Tunneling No No -Circular Undermining No No -Wound/Ulcer Outcome Not Healed Not Healed -Ulcer Cleansing Rinsed/ Rinsed/ Irrigated with Irrigated with Saline Saline -Foul Odor after Cleansing No No -Bioengineered Tissue No No -Bleeding Controlled with Pressure Pressure -Treatment Response Procedure Procedure Tolerated Well Tolerated Well -Offloading No No -Debridement - Subq, 1st 20sq cm No Yes Pain Scale: 0-10 Numeric Is Patient Pain Free? Yes Yes WC - Nurse 3 - General Ulcer D/C NN Start: 06/27/22 13:41 Freq: Status: Active Protocol: Activity Type Activity Date Activity User E-sign Co-sign Detail Recorded Client Recorded Date Recorded By Document 06/27/22 14:36 DL [id number] 06/27/22 14:41 DL Document 07/11/22 13:57 DL [id number] 07/11/22 13:59 DL 06/27/22 07/11/22 14:36 13:57 Wound Care Nurse 3 8-right diego cluster -Ulcer Cleansing Rinsed/ Irrigated with Saline -Foul Odor after Cleansing No -Primary Dressing Applied NonAdherent Contact Layer, Silvercel -Primary Dressing Covered/Secured with Dry Gauze, Secured with Tape -Other Covering ABD -Silvercel 1 7-left posterior leg -Ulcer Cleansing Rinsed/ Irrigated with Saline -Foul Odor after Cleansing No -Primary Dressing Applied NonAdherent Contact Layer -Other Dressing silvercell -Primary Dressing Covered/Secured with Dry Gauze, Secured with Tape #6 R [place] -Ulcer Cleansing Rinsed/ Irrigated with Saline -Foul Odor after Cleansing No -Primary Dressing Applied NonAdherent Contact Layer -Other Dressing silvercell -Other Covering abd 5-right posterior lower leg -Ulcer Cleansing Rinsed/ Irrigated with Saline -Foul Odor after Cleansing No -Primary Dressing Applied NonAdherent Contact Layer -Other Dressing silvercell -Primary Dressing Covered/Secured with Dry Gauze, Secured with Tape -Other Covering abd 2-left buttocks -Ulcer Cleansing Rinsed/ Rinsed/ Irrigated with Irrigated with Saline Saline -Foul Odor after Cleansing No No -Primary Dressing Applied NonAdherent C Hydrogel ($) Contact Layer -Other Dressing silvercell -Primary Dressing Covered/Secured with Dry Gauze, Dry Gauze, Secured with Secured with Tape Tape zoey -Compression Wrap [place] Wrap -Tubular Bandage Single Layer -Size of Tubigrip Used Size E -Size E ($) 1 Treatment Response Procedure Procedure Tolerated Well Tolerated Well Pain Scale: 0-10 Numeric Is Patient Pain Free? Yes Yes WC - Visit Discharge Discharge Condition Stable Stable Ambulatory Status Wheelchair Wheelchair Transportation Private Auto Private Auto Facility Type Home Health Home Health Orders Sent Yes Yes Assessment/Plan Assessment/Plan (1) Decubitus ulcer of left buttock, stage 3: CODE(S): L89.323 - Pressure ulcer of left buttock, stage 3 (2) Edema of both lower legs: CODE(S): R60.0 - Localized edema (3) Diabetes mellitus type 2, uncontrolled, without complications: CODE(S): E11.65 - Type 2 diabetes mellitus with hyperglycemia (4) Paraplegia: CODE(S): G82.20 - Paraplegia, unspecified (5) Tobacco use disorder: CODE(S): F17.200 - Nicotine dependence, unspecified, uncomplicated (6) Candidal skin infection: CODE(S): B37.2 - Candidiasis of skin and nail (7) Vaginal yeast infection: CODE(S): B37.31 - Acute candidiasis of vulva and vagina PLAN: Plan Patient was seen and evaluated in the wound center today. She has continued to sit/sleep in her wheelchair for long periods of time, but with her new wheelchair she is able to tilt the seat back to help off load. Patient encouraged to off load frequently and to avoid sitting in her wheel chair for longer than 2 hours at a time. Abdominal ulcer, coccyx cluster and left ischium ulcers are healed today. Wound care - Wash daily with soap and water daily. Left buttock place collagen hydrogel topped with gauze daily. Compression - Single layer tubigrip with OSITO wrap bilateral legs. She is having a red, itchy rash in her groin, will start on Nystatin powder. She also complains of vaginal yeast infection, will start her on Diflucan daily x 3 days. Stressed the importance of off loading and not sitting in her chair too long. She also avoid laying on her back in bed for long periods of time because that is probably contributing to the coccyx area becoming pink and dry. Wound culture obtained 02/21/22 which was negative for bacterial growth. Wound culture obtained on 10/18/21 which were positive for MRSE and Anaerobic cocci. She completed Doxycycline and Flagyl. Encourage diet high in protein, low in carbohydrates. Encouraged increase in Vitamin C to 1,000 mg/day. Due to her history of diabetes and being a paraplegia, she is at increased risk for delayed wound healing, especially since she does not off load as she should. Stressed the importance of off loading and not staying her her wheel chair for long periods of time. Follow up two weeks. She is to call or come in sooner or go to the ED if she develops any issues or concerns.
== END 2022-07-23 23:59 | disposition home or self-care (01) ==
LOC: WC 13:00
PROVIDERS: PCP Internal Medicine; Visit Provider Nurse Practitioner Family
DX: E11.622 Type 2 diabetes mellitus with other skin ulcer (principal); L89.153 Pressure ulcer of sacral region, stage 3; G82.20 Paraplegia, unspecified; L89.222 Pressure ulcer of left hip, stage 2; L89.322 Pressure ulcer of left buttock, stage 2; L97.812 Non-pressure chronic ulcer of other part of right lower leg with fat layer exposed; L97.822 Non-pressure chronic ulcer of other part of left lower leg with fat layer exposed; E11.65 Type 2 diabetes mellitus with hyperglycemia; B37.2 Candidiasis of skin and nail; B37.31 Acute candidiasis of vulva and vagina; Z99.3 Dependence on wheelchair; R60.0 Localized edema; F17.200 Nicotine dependence, unspecified, uncomplicated
CPT/HCPCS: 11042; 11045; 93923; 93970

== ENCOUNTER 2022-07-20 22:06 | Emergency (ER) | payer MEDICARE, MEDICAID, SELFPAY ==
[2022-07-20 22:09] VITALS: BP 142/94; PULSE 94; RESP 16; TEMP 36.7; O2SAT 100; BMI 34.3
--- NOTE | 2022-07-20 23:38 | ED.VIS.BACK ---
HPI History of Present Illness Chief Complaint: Back Narrative Narrative: 62-year-old female with chronic back pain states that she saw her pain management doctor, Dr. Comer today, and that he told her that he could no longer do anything for her. He did not write her for any more medications and told her that she would have to see a different physician. According to her, she was high and dry. Her home health care nurse thinks that her back is getting worse, and patient states that she was told to come to the emergency department to get x-rays of her back because it is protruding more, and additionally she wants to speak to hospice versus palliative care. She denies any new symptoms. This is exacerbation of her chronic back pain, and she states that she needs medicines. 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 Muscle weakness Neuromuscular scoliosis Other intervertebral disc degeneration, lumbar region Paraplegia Primary generalized (osteo)arthritis Spinal stenosis, lumbar region without neurogenic claudication Home Medications topiramate 25 mg tablet 25 mg PO BID pain 02/16/18 [History Last Taken 09/24/20] [id number] tablet (Cerovite Senior) 1 tab PO DAILY supplement 02/26/18 [History Last Taken 09/23/20] atorvastatin 20 mg tablet 20 mg PO QHS cholesterol 08/08/19 [History Last Taken 09/23/20] levothyroxine 150 mcg tablet 150 mcg PO DAILY thyroid 09/17/20 [History Last Taken 09/24/20] pantoprazole 40 mg tablet,delayed release 40 mg PO BID PRN stomach 09/17/20 [History Last Taken 09/24/20] acetaminophen 500 mg tablet 500 mg PO Q6H PRN Pain 1-10 Or Fever 10/08/20 [History Last Taken Unknown] albuterol sulfate 90 mcg/actuation aerosol inhaler 2 puff inhalation Q4H PRN PRN Sob &/Or Wheezing 10/08/20 [History Last Taken Unknown] methadone 10 mg tablet 10 mg PO Q12H PAIN MANAGEMENT 10/08/20 [History Last Taken Unknown] betamethasone valerate 0.1 % topical cream 1 applic topical BID PRN skin irritation #15 grams 01/15/21 [Rx Last Taken Unknown] cetirizine 10 mg tablet 10 mg PO DAILY #30 tabs 01/15/21 [Rx Last Taken Unknown] lorazepam 1 mg tablet 1 mg PO BID PRN anxiety #60 tabs 01/15/21 [Rx Last Taken Unknown] potassium chloride 10 mEq tablet,extended release 10 meq PO DAILY #30 tabs 01/15/21 [Rx Last Taken Unknown] hydrocolloid dressing 4 X 4 (DuoDERM CGF Adhesive Border Dressing) #5 ea 09/07/21 [Rx Last Taken Unknown] ondansetron 4 mg disintegrating tablet 4 mg PO Q8H PRN nausea and vomiting 5 days #14 tabs 10/27/21 [Rx Last Taken Unknown] biotin 1 mg tablet 1 mg PO DAILY SUPPLEMENT 05/17/22 [History Last Taken Unknown] calcium citrate 250 mg PO DAILY SUPPLEMENT 05/17/22 [History Last Taken Unknown] cholecalciferol (vitamin D3) 25 mcg (1,000 unit) capsule 25 mcg PO DAILY SUPPLEMENT 05/17/22 [History Last Taken Unknown] cyanocobalamin (vitamin B-12) 1,000 mcg tablet 1,000 mcg PO DAILY SUPPLEMENT 05/17/22 [History Last Taken Unknown] duloxetine 30 mg capsule,delayed release 30 mg PO DAILY depression 05/17/22 [History Last Taken Unknown] ferrous sulfate 325 mg (65 mg iron) tablet 325 mg PO DAILY SUPPLEMENT 05/17/22 [History Last Taken Unknown] fluticasone propionate 50 mcg/actuation nasal spray,suspension 2 spray intranasal DAILY ALLERGIES 05/17/22 [History Last Taken Unknown] lidocaine 5 % topical cream (AneCream5) 1 applic topical TID PRN Pain 05/17/22 [History Last Taken Unknown] metolazone 2.5 mg tablet 2.5 mg PO DAILY PRN swelling 05/17/22 [History Last Taken Unknown] mupirocin 2 % topical ointment 1 applic topical DAILY PRN Wound Care 05/17/22 [History Last Taken Unknown] nystatin 100,000 unit/gram topical cream 1 applic topical BID RASH 05/17/22 [History Last Taken Unknown] polyethylene glycol 3350 17 gram/dose oral powder 17 g PO DAILY CONSTIPATION 05/17/22 [History Last Taken Unknown] sennosides 8.6 mg tablet (Senna Lax) 8.6 mg PO DAILY STOOL 05/17/22 [History Last Taken Unknown] valacyclovir 500 mg tablet (Valtrex) 500 mg PO DAILY Check with primary doctor 05/17/22 [History Last Taken Unknown] gabapentin 300 mg capsule 300 mg PO BID 30 days #60 caps 05/19/22 [Rx Last Taken Unknown] dextran 70-hypromellose 0.1 %-0.3 % eye drops (Artificial Tears (dextran 70-hypromellose)) 1 drp ophthalmic (eye) TID 05/25/22 [History Last Taken Unknown] ipratropium 20 mcg-albuterol 100 mcg/actuation mist for inhalation (Combivent Respimat) 1 puff inhalation Q6H PRN 05/25/22 [History Last Taken Unknown] mirtazapine 15 mg tablet 15 mg PO QHS #30 tabs 05/25/22 [Rx Last Taken Unknown] oxycodone-acetaminophen 5 mg-325 mg tablet 1 tab PO Q8H PRN 05/25/22 [History Last Taken Unknown] fluconazole 150 mg tablet (Diflucan) 150 mg PO DAILY 3 days #3 tabs 07/08/22 [Rx Last Taken Unknown] nystatin 100,000 unit/gram topical powder 1 applic topical BID 10 days #30 grams 07/08/22 [Rx Last Taken Unknown] Allergy/AdvReac Type Severity Reaction Status Date / Time NSAIDS (Non-Steroidal Allergy GASTRIC Verified 05/25/22 12:49 Anti-Inflamma BYPASS trazodone AdvReac Other Verified 05/25/22 12:49 Family History Father Diabetes Hypertension Myocardial infarction Alcoholism Brother Myocardial infarction Alcoholism Mother CVA (cerebral vascular accident) Surgical History H/O dilation and curettage H/O gastric bypass History of bilateral salpingo-oophorectomy History of cholecystectomy Hydradenitis S/P arthroscopic knee surgery S/P lumbar spine operation s/p nerve spine surgery s/p upper back surgery skin graft Social History Smoking Status: Current every day smoker tobacco type: cigarettes alcohol intake: never substance use type: does not use caffeine: Yes what type of physical activity do you participate in: none seatbelt use: always do you feel safe at home: Yes additional social history: ROS ROS ED ROS Narrative Constitutional: No fever, no chills. HEENT: No sore throat. No neck pain. No loss of vision. No rhinorrhea. Cardiovascular: No chest pain. No palpitations. No pedal edema. Respiratory: No cough, no shortness of breath. Abdominal: No abdominal pain. No nausea. No vomiting. Genitourinary: No dysuria. No hematuria. Musculoskeletal: No myalgias. No arthralgias. Phonic back pain. Neurologic: No headaches. No dizziness. No lightheadedness. Positive chronic back pain. Skin: No rash. No change in color. Psychiatric: No depression. No anxiety. EXAM Physical Exam Narrative Exam Narrative: Afebrile. Vital signs noted. HEENT: Normocephalic. Atraumatic. PERRL, EOMI. Neck soft and supple. No point tenderness or step off. Cardiovascular: Regular rate and rhythm. No murmurs, rubs, or gallops appreciated. Respiratory: No tachypnea. Lungs clear to auscultation bilaterally. Gastrointestinal: Abdomen soft, nontender, with normoactive bowel sounds. No rebound or guarding. Neurological: Awake. Alert. Sitting in wheelchair. Skin: No rash. Normal color. No pallor. Musculoskeletal: No pedal edema. Full range of motion extremities. Inspection of lumbar spine does show mild curvature with prominent vertebral processes. Const Vital Signs: 07/20/22 22:09 Temperature 98.0 F Temperature Source Temporal Pulse Rate 94 Respiratory Rate 16 Blood Pressure 142/94 H Blood Pressure Mean 110 Pulse Ox 100 Oxygen Delivery Method Room Air MDM MDM MDM Narrative Medical decision making narrative: I had a lengthy discussion with the patient. She was told that hospice consultation is not currently available and that she should do this during the day as an outpatient. She was given 1 tablet of oxycodone as she usually takes Percocet. I did obtain x-rays of her back, but I do feel that any prescriptions for narcotics should be written by a pain management physician. fresh foods technician states that they are unable to obtain x-rays of her lumbar spine as she is unable to stand, and she cannot lay flat. At this point in time, I feel she can be discharged safely home to follow-up with hospice/palliative care and/or new pain management physician. There is no emergent process currently that I feel she needs further work-up from the emergency department. Disposition is discharged home in stable condition. Discharge Plan Triage Chief Complaint: Back ED Provider: Bruno Hernandez Dx/Rx/DC Orders Clinical Impression: Paraplegia, Intractable low back pain, Chronic pain Prescriptions: No Action [id number] [Cerovite Senior] tablet 1 tab PO DAILY betamethasone valerate 0.1 % cream 1 applic topical BID PRN (Reason: skin irritation) Qty: 15 0RF cetirizine 10 mg tablet 10 mg PO DAILY Qty: 30 0RF lorazepam 1 mg tablet 1 mg PO BID PRN (Reason: anxiety) Qty: 60 0RF potassium chloride 10 mEq tablet extended release 10 meq PO DAILY Qty: 30 0RF Rx Instructions: DAILY WITH BREAKFAST Artificial Tears([id number]) 0.1-0.3 % drops 1 drp ophthalmic (eye) TID Combivent Respimat 20-100 mcg/actuation mist 1 puff inhalation Q6H PRN oxycodone-acetaminophen 5-325 mg tablet 1 tab PO Q8H PRN mirtazapine 15 mg tablet 15 mg PO QHS Qty: 30 2RF topiramate 25 MG tablet 25 mg PO BID atorvastatin 20 MG tablet 20 mg PO QHS pantoprazole 40 MG tablet 40 mg PO BID PRN (Reason: stomach) levothyroxine 150 MCG tablet 150 mcg PO DAILY methadone 10 MG tablet 10 mg PO Q12H acetaminophen 500 MG tablet 500 mg PO Q6H PRN (Reason: Pain 1-10 Or Fever) albuterol sulfate 1 INHALER inhaler 2 puff INHALATION Q4H PRN PRN (Reason: Sob &/Or Wheezing) ondansetron 4 mg tablet,disintegrating 4 mg PO Q8H PRN (Reason: nausea and vomiting) 5 Days Qty: 14 0RF metolazone 2.5 mg tablet 2.5 mg PO DAILY PRN (Reason: swelling) Rx Instructions: TAKE 1 TABLET DAILY UP TO 5 DAYS A WEEK NEEDED FOR SWELLING. sennosides [Senna Lax] 8.6 mg tablet 8.6 mg PO DAILY Label Comments: take 1 tablet by mouth once daily lidocaine [AneCream5] 5 % Cream 1 applic TOPICAL TID PRN (Reason: Pain) ferrous sulfate 325 mg (65 mg iron) Tablet 325 mg PO DAILY nystatin 100,000 unit/gram cream 1 applic TOPICAL BID Label Comments: apply to affected area twice a day if needed for rash mupirocin 2 % ointment 1 applic TOPICAL DAILY PRN (Reason: Wound Care) Label Comments: apply to LEG WOUNDS -- DIRECTED -- FOR 10 DAYS polyethylene glycol 3350 17 gram/dose Powder 17 g PO DAILY fluticasone propionate 50 mcg/actuation [place],Suspension 2 spray INTRANASAL DAILY Rx Instructions: administer into each nostril cholecalciferol (vitamin D3) 25 mcg (1,000 unit) Capsule 25 mcg PO DAILY duloxetine 30 mg capsule,delayed release(DR/EC) 30 mg PO DAILY Label Comments: TAKE 1 CAPSULE BY MOUTHTONCE DAILY biotin 1 mg Tablet 1 mg PO DAILY calcium citrate 250 mg calcium Tablet 250 mg PO DAILY valacyclovir [Valtrex] 500 mg tablet 500 mg PO DAILY cyanocobalamin (vitamin B-12) 1,000 mcg Tablet 1,000 mcg PO DAILY gabapentin 300 mg capsule 300 mg PO BID 30 Days Qty: 60 0RF nystatin 100,000 unit/gram powder 1 applic topical BID 10 Days Qty: 30 1RF Rx Instructions: to effected area fluconazole [Diflucan] 150 mg tablet 150 mg PO DAILY 3 Days Qty: 3 0RF (DME) hydrocolloid dressing [DuoDERM CGF Border Dressing] 4 X 4 bandage See Rx Instructions .ROUTE .MEDSUPPLY Qty: 5 6RF Rx Instructions: As directed Primary Care Provider: Kevin Bah Referrals: Kevin Bah MD [Primary Care Provider] - Activity Restrictions/Additional Instructions: Have your home care nurse practitioner call palliative care/hospice for you tomorrow. Disposition Disposition: Home, Self Care
[2022-07-21] MEDS: oxyCODONE 5 MG Tablet PO (00:12)
== END 2022-07-21 00:18 | disposition home or self-care (01) ==
PROVIDERS: Emergency Provider Emergency Medicine; PCP Internal Medicine; Visit Provider Emergency Medicine
DX: M54.50 Low back pain, unspecified (principal); G82.20 Paraplegia, unspecified; J44.9 Chronic obstructive pulmonary disease, unspecified; G89.29 Other chronic pain
CPT/HCPCS: 99283

== ENCOUNTER 2022-08-23 13:00 | Outpatient (RCR) | payer MEDICARE, MEDICAID, SELFPAY ==
[2022-07-24 00:15] VITALS: BP 178/88; PULSE 88; RESP 20; TEMP 35.7; BMI 32.3
[2022-07-26 13:34] VITALS: BP 106/76; PULSE 108; RESP 20; TEMP 36.1; BMI 32.3
--- NOTE | 2022-07-26 14:36 | PN.PCM_ITS ---
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 Nevarez for pressure ulcers on her left medial buttocks/ischial area. Patient is wheelchair bound. She has a significant medical history of DM type 2, multiple back surgeries which eventually caused her become a paraplegic. Patient is a very poor historian and keeps falling asleep during her appointment. Patient is not sure how long she has had the pressure sore on her left medial buttocks, she is guessing a few months. She has been placing a cream on this area. She is unsure what cream it is. The ulcer cluster is painful to palpation. She states she sits in her wheelchair often more than 8 hours per day and will sometimes fall asleep in her chair. She does not have a special cushion for her wheelchair. She sleeps in a regular hospital bed, not a low air loss mattress. This week she has a new area on her left buttocks and a cluster on left coccyx cluster. These areas look like pressure. Wound care - Wash daily with soap and water. Place moistened Fibrocal + and cover with gauze daily and as needed to the left ischial ulcer. Try to off load as much as possible and try to avoid sitting for long periods of time. Wound culture obtained on 02/21/22 had not growth. Wound culture obtained on 10/18/21 which were positive for MRSE and Anaerobic cocci. Completed Doxycycline and Flagyl. Progress of Wound: Left buttocks ulcer is slightly smaller in size. She stopped using the collagen hydrogel because it was burning when placed. She is complaining of having sores on her labia. I was unable to visualize them today. She states she is having a Hidradenitis flair. Her yeast rash under her pannus and in her skin folds is improving with the nystatin powder. Objective Data Objective Data Vital Signs: Vital Signs Temp Pulse Resp BP 97 F L 108 H 20 H 106/76 07/26/22 13:34 07/26/22 13:34 07/26/22 13:34 07/26/22 13:34 Weight: 200 lb Body Mass Index (BMI) 32.3 Charges/Coding Procedures Integumentary [id number]: [id number] Shila subq tissue 20 sq cm/< Debridement Note Debridement Note Wound debrided: buttocks ulcer Laterality: Left Wound Grade/Stage: stage II Type of Debridement: Excisional debridement Anesthesia Used: 5% Lidocaine Gel Depth: Down to and including healthy tissue and in the subcutaneous layer Percentage of wound debrided: 100 Instrument Used: 3mm curette Tissue Removed: Devitalized tissue and slough Severity: Fat Layer Exposed Amount of bleeding with debridement: Mild Bleeding Controlled with: Compression and gauze Patient tolerated procedure: Patient tolerated procedure well Post-Debridement Measurements and Additional Note: Post-Debridement Measurements/Treatment - Nurse 1 - General Ulcer Assessment Start: 07/26/22 13:34 Freq: Status: Active Protocol: TAISHA Activity Type Activity Date Activity User E-sign Co-sign Detail Recorded Client Recorded Date Recorded By Document 07/26/22 13:34 [facility] [id number] 07/26/22 13:42 [facility] 07/26/22 13:34 WC - Today's Visit Information Type of service Follow-up Visit (Physician/PARCEL CONTRACTOR ) Arrival Mode Wheelchair Transfer Assistance None Patient Identification Verified (Name & Yes ) Patient Requires Transmission-Based No Precautions Finger Stick Blood Sugar(mg/dl) (if NOT CHECKED indicated): Blood Sugar Stated by Patient Height and Weight Body Mass Index (BMI) 32.3 BMI Classification Obese Vital Signs Temperature (97.8 F-99.1 F) 97 F L Temperature Source Temporal Pulse Rate (60-100) 108 H Pulse Location Monitor Respiratory Rate (12-18) 20 H Respiratory rate source Observation Blood Pressure (90/60-120/80) 106/76 Blood Pressure Mean (mm Hg) 86 Source Monitor History Since Last Visit- (Skip if this is Patient's initial visit) Have you changed medications since your No last visit? Any new allergies or adverse reactions No Had a fall/change in ADL's that may No increase risk of falls Signs or symptoms of abuse and/or No neglect since last visit Have you been in the hospital since your No last visit? Has dressing in place as prescribed Yes Has compression in place as prescribed N/A Has offloadiing in place as prescribed Yes Experienced any changes in pain level or No management Pain Scale: 0-10 Numeric Is Patient Pain Free? Yes - Nurse 1 - General Ulcer Measurement Start: 07/26/22 13:34 Freq: Status: Active Protocol: Activity Type Activity Date Activity User E-sign Co-sign Detail Recorded Client Recorded Date Recorded By Document 07/26/22 13:34 [facility] [id number] 07/26/22 13:42 [facility] 07/26/22 13:34 Wound Center Nurse 1 2-left buttocks -Current Size (cm) - Length 1.6 -Current Size (cm) - Width 1.5 -Current Size (cm) - Depth 0.1 -Total Square Cm 2.40 -Photo Taken Yes -Exudate Amt Small -Wound Margin Distinct, Outline Attached -Granulation Amt Large (67-100%) -Granulation Quality Pale,[place] -Necrosis Amt None Present (0 %) -Structure Exposed N/A -Texture (Vivi-wound Skin Appearance) Scarring -Moisture (Vivi-wound Skin Appearance) No Abnormality -Color (Vivi-wound Skin Appearance) Ecchymosis, Hemosiderin Staining -Temperature (Vivi-wound Skin No Abnormality Appearance) (Pt Warm) -Tenderness on Palpation (Vivi-wound No Skin Appearance) -Ulcer Cleansing Soap and Water -Anesthetic Used 5% Lidocaine Gel WC - Nurse 2 - General Ulcer CM Notes Start: 07/26/22 13:34 Freq: Status: Active Protocol: Activity Type Activity Date Activity User E-sign Co-sign Detail Recorded Client Recorded Date Recorded By Document 07/26/22 14:16 [id number] 07/26/22 14:17 07/26/22 14:16 Wound Center Nurse 2 -Time 14:17 -Correct Patient Yes -Correct Side, Site, Position Yes -Correct Procedure Yes -Procedure Performed Yes -Type of Procedure Debridement -Clinical Debridement Subcutaneous -Tissue Removed Subcutaneous -Post Debridement (cm) - Length 1.7 -Post Debridement (cm) - Width 1.7 -Post Debridement (cm) - Depth 0.1 -Total Square (Post) (cm) 2.89 -Area of Debridement (cm) - Length 1.7 -Area of Debridement (cm) - Width 1.7 -Total Square (Area) (cm) 2.89 -Tunneling No -Undermining/Tunneling No -Circular Undermining No -Wound/Ulcer Outcome Not Healed -Ulcer Cleansing Rinsed/ Irrigated with Saline -Foul Odor after Cleansing No -Bioengineered Tissue No -Bleeding Controlled with Pressure -Treatment Response Procedure Tolerated Well -Offloading No -Pressure Reduction Wheelchair cushion -Debridement - Subq, 1st 20sq cm Yes Pain Scale: 0-10 Numeric Is Patient Pain Free? Yes - Nurse 3 - General Ulcer D/C NN Start: 07/26/22 13:34 Freq: Status: Active Protocol: Activity Type Activity Date Activity User E-sign Co-sign Detail Recorded Client Recorded Date Recorded By Document 07/26/22 14:17 [id number] 07/26/22 14:18 ELLIE 07/26/22 14:17 Wound Care Nurse 3 2-left buttocks -Ulcer Cleansing Rinsed/ Irrigated with Saline -Foul Odor after Cleansing No -Primary Dressing Applied Fibracol Plus 4x4 -Primary Dressing Covered/Secured with Dry Gauze, Secured with Tape -Fibracol Plus 4x4 1 Pain Scale: 0-10 Numeric Is Patient Pain Free? Yes WC - Visit Discharge Discharge Condition Stable Ambulatory Status Wheelchair Transportation Private Auto Accompanied by daughter Medication Reconcilliation completed & Yes provided to patient/care provider Clinical Summary of Care Provided Yes Assessment/Plan Assessment/Plan (1) Decubitus ulcer of left buttock, stage 3: CODE(S): L89.323 - Pressure ulcer of left buttock, stage 3 (2) Edema of both lower legs: CODE(S): R60.0 - Localized edema (3) Diabetes mellitus type 2, uncontrolled, without complications: CODE(S): E11.65 - Type 2 diabetes mellitus with hyperglycemia (4) Paraplegia: CODE(S): G82.20 - Paraplegia, unspecified (5) Tobacco use disorder: CODE(S): F17.200 - Nicotine dependence, unspecified, uncomplicated (6) Candidal skin infection: CODE(S): B37.2 - Candidiasis of skin and nail (7) Vaginal yeast infection: CODE(S): B37.31 - Acute candidiasis of vulva and vagina PLAN: Plan Patient was seen and evaluated in the wound center today. She has continued to sit/sleep in her wheelchair for long periods of time, but with her new wheelchair she is able to tilt the seat back to help off load. Patient encouraged to off load frequently and to avoid sitting in her wheel chair for longer than 2 hours at a time. Wound care - Wash daily with soap and water daily. Left buttock/ishial ulcer place moistened Fibrocol + topped with gauze or super absorber daily and as needed. Compression - Single layer tubigrip with CAROLE wrap bilateral legs. Continue nystatin powder to the resolving red rash in bilateral groin and pannus area. Stressed the importance of off loading and not sitting in her chair too long. She also avoid laying on her back in bed for long periods of time because that is probably contributing to the coccyx area becoming pink and dry. Wound culture obtained 02/21/22 which was negative for bacterial growth. Wound culture obtained on 10/18/21 which were positive for MRSE and Anaerobic cocci. She completed Doxycycline and Flagyl. Encourage diet high in protein, low in carbohydrates. Encouraged increase in Vitamin C to 1,000 mg/day. Due to her history of diabetes and being a paraplegia, she is at increased risk for delayed wound healing, especially since she does not off load as she should. Stressed the importance of off loading and not staying her her wheel chair for long periods of time. Follow up two weeks. She is to call or come in sooner or go to the ED if she develops any issues or concerns.
[2022-08-08 13:54] VITALS: BP 137/70; PULSE 101; TEMP 35.7; BMI 32.3
--- NOTE | 2022-08-08 15:12 | PN.PCM_ITS ---
History of Present Illness Date of Service: 08/08/22 Chief Complaint: Sore on left buttocks History of Wound: Patient was referred by her METAL ROOM DENTAL TECHNICIAN, Dr. Nevarez for pressure ulcers on her left medial buttocks/ischial area. Patient is wheelchair bound. She has a significant medical history of DM type 2, multiple back surgeries which eventually caused her become a paraplegic. Patient is a very poor historian and keeps falling asleep during her appointment. Patient is not sure how long she has had the pressure sore on her left medial buttocks, she is guessing a few months. She has been placing a cream on this area. She is unsure what cream it is. The ulcer cluster is painful to palpation. She states she sits in her wheelchair often more than 8 hours per day and will sometimes fall asleep in her chair. She does not have a special cushion for her wheelchair. She sleeps in a regular hospital bed, not a low air loss mattress. This week she has a new area on her left buttocks and a cluster on left coccyx cluster. These areas look like pressure. Wound care - Wash daily with soap and water. Place Fibrocal + and cover with gauze daily and as needed to the left ischial ulcer. Try to off load as much as possible and try to avoid sitting for long periods of time. Wound culture obtained on 02/21/22 had not growth. Wound culture obtained on 10/18/21 which were positive for MRSE and Anaerobic cocci. Completed Doxycycline and Flagyl. Progress of Wound: Left superior buttocks ulcer is stable. New ulcer on left inferior that is small and pink. Bilateral legs edematous and left leg is weeping due the severity of the edema. She is very upset because her pain management physician dropped her from his service. Her daughter states that Henna had been hospitalized because she had become unresponsive and she thinks that Henna had been accidentally taking her medication wrong during her confusion. Henna states that she was referred to hospice but they said that she was not a candidate for hospice. Her home health also would like to drop her and referred her to their hospice, which she was denied. This patient does not need hospice, she needs palliative care or pain management to help with her pain. Objective Data Objective Data Vital Signs: Vital Signs Temp Pulse Resp BP 96.3 F L 101 H 20 H 137/70 H 01/16/23 13:54 08/08/22 13:54 07/26/22 13:34 08/08/22 13:54 Weight: 200 lb Body Mass Index (BMI) 32.3 Charges/Coding Procedures Integumentary 111xxx-113xx: 23626 Shila subq tissue 20 sq cm/< Add On Codes: 18526 Shila subq tissue add-on Debridement Note Debridement Note Wound debrided: buttocks ulcers -superior and inferior Laterality: Left Wound Grade/Stage: stage II Type of Debridement: Excisional debridement Anesthesia Used: 5% Lidocaine Gel Depth: Down to and including healthy tissue and in the subcutaneous layer Percentage of wound debrided: 100 Instrument Used: 3mm curette Tissue Removed: Devitalized tissue and slough Severity: Limited To Skin Breakdown Amount of bleeding with debridement: Mild Bleeding Controlled with: Compression and gauze Patient tolerated procedure: Patient tolerated procedure well Post-Debridement Measurements and Additional Note: Post-Debridement Measurements/Treatment - Nurse 1 - General Ulcer Assessment Start: 07/26/22 13:34 Freq: Status: Active Protocol: TAISHA Activity Type Activity Date Activity User E-sign Co-sign Detail Recorded Client Recorded Date Recorded By Document 07/26/22 13:34 [facility] [id number] 07/26/22 13:42 [facility] Document 08/08/22 13:54 [place] [id number] 08/08/22 13:57 [place] 07/26/22 08/08/22 13:34 13:54 - Today's Visit Information Type of service Follow-up Visit Follow-up Visit (Physician/PERSONAL FINANCIAL REPRESENTATIVE (Physician/PERSONAL FINANCIAL REPRESENTATIVE ) ) Arrival Mode Wheelchair Wheelchair Transfer Assistance None Patient Identification Verified (Name & Yes Yes ) Patient Requires Transmission-Based No No Precautions Finger Stick Blood Sugar(mg/dl) (if NOT CHECKED indicated): Blood Sugar Stated by Patient Height and Weight Body Mass Index (BMI) 32.3 32.3 BMI Classification Obese Obese Vital Signs Temperature (97.8 F-99.1 F) 97 F L 96.3 F L Temperature Source Temporal Temporal Pulse Rate (60-100) 108 H 101 H Pulse Location Monitor Monitor Respiratory Rate (12-18) 20 H Respiratory rate source Observation Blood Pressure (90/60-120/80) 106/76 137/70 H Blood Pressure Mean (mm Hg) 86 92 Source Monitor Monitor History Since Last Visit- (Skip if this is Patient's initial visit) Have you changed medications since your No No last visit? Any new allergies or adverse reactions No No Had a fall/change in ADL's that may No No increase risk of falls Signs or symptoms of abuse and/or No No neglect since last visit Have you been in the hospital since your No No last visit? Has dressing in place as prescribed Yes Yes Has compression in place as prescribed N/A N/A Has offloadiing in place as prescribed Yes N/A Experienced any changes in pain level or No No management Left Footwear Slipper Right Footwear Slipper Pain Scale: 0-10 Numeric Is Patient Pain Free? Yes No WC - Nurse 1 - General Ulcer Measurement Start: 07/26/22 13:34 Freq: Status: Active Protocol: Activity Type Activity Date Activity User E-sign Co-sign Detail Recorded Client Recorded Date Recorded By Document 07/26/22 13:34 [facility] [id number] 07/26/22 13:42 [facility] Document 08/08/22 13:54 [place] [id number] 08/08/22 13:57 [place] 07/26/22 08/08/22 13:34 13:54 Wound Center Nurse 1 10-left leg ulcer cluster -Combined with other wound No -Current Size (cm) - Length 2 -Current Size (cm) - Width 2 -Current Size (cm) - Depth 0.1 -Total Square Cm 4 -Date of Last Picture (Recall this 08/08/22 field) -Photo Taken Yes -Tunneling No -Undermining/Tunneling No -Circular Undermining No -Change in Wound Grade/Stage No -Exudate Amt Medium -Exudate Type Serosanguineous -Wound Margin Distinct, Outline Attached -Granulation Amt Medium (34-66%) -Granulation Quality [place] -Slough/Fibrin Yes -Necrosis Amt Medium (34-66%) -Necrotic Tissue Type Adherent Slough -Structure Exposed N/A -Texture (Vivi-wound Skin Appearance) Assessed, Excoriation -Moisture (Vivi-wound Skin Appearance) No Abnormality, Assessed -Color (Vivi-wound Skin Appearance) No Abnormality, Assessed -Temperature (Vivi-wound Skin No Abnormality Appearance) (Pt Warm) -Tenderness on Palpation (Vivi-wound No Skin Appearance) -Ulcer Cleansing Rinsed/ Irrigated with Saline -Foul Odor after Cleansing No -Anesthetic Used 5% Lidocaine Gel 9-left ischium -Combined with other wound No -Current Size (cm) - Length 0.2 -Current Size (cm) - Width 0.3 -Current Size (cm) - Depth 0.1 -Total Square Cm 0.06 -Date of Last Picture (Recall this 08/08/22 field) -Photo Taken Yes -Tunneling No -Undermining/Tunneling No -Circular Undermining No -Change in Wound Grade/Stage No -Exudate Amt None Present -Wound Margin Distinct, Outline Attached -Granulation Amt Medium (34-66%) -Granulation Quality [place] -Slough/Fibrin Yes -Necrosis Amt Medium (34-66%) -Necrotic Tissue Type Adherent Slough -Structure Exposed N/A -Texture (Vivi-wound Skin Appearance) No Abnormality, Assessed -Moisture (Vivi-wound Skin Appearance) No Abnormality, Assessed -Color (Vivi-wound Skin Appearance) No Abnormality, Assessed -Temperature (Vivi-wound Skin No Abnormality Appearance) (Pt Warm) -Tenderness on Palpation (Vivi-wound No Skin Appearance) -Ulcer Cleansing Rinsed/ Irrigated with Saline -Foul Odor after Cleansing No -Anesthetic Used 5% Lidocaine Gel 2-left buttocks -Current Size (cm) - Length 1.6 -Current Size (cm) - Width 1.5 -Current Size (cm) - Depth 0.1 -Total Square Cm 2.40 -Photo Taken Yes -Exudate Amt Small -Wound Margin Distinct, Outline Attached -Granulation Amt Large (67-100%) -Granulation Quality Pale,[place] -Necrosis Amt None Present (0 %) -Structure Exposed N/A -Texture (Vivi-wound Skin Appearance) Scarring -Moisture (Vivi-wound Skin Appearance) No Abnormality -Color (Vivi-wound Skin Appearance) Ecchymosis, Hemosiderin Staining -Temperature (Vivi-wound Skin No Abnormality Appearance) (Pt Warm) -Tenderness on Palpation (Vivi-wound No Skin Appearance) -Ulcer Cleansing Soap and Water -Anesthetic Used 5% Lidocaine Gel WC - Nurse 2 - General Ulcer CM Notes Start: 07/26/22 13:34 Freq: Status: Active Protocol: Activity Type Activity Date Activity User E-sign Co-sign Detail Recorded Client Recorded Date Recorded By Document 07/26/22 14:16 [id number] 07/26/22 14:17 Document 08/08/22 13:22 [id number] 08/08/22 13:39 07/26/22 08/08/22 14:16 13:22 Wound Center Nurse 2 10-left leg ulcer cluster -Time 13:38 -Correct Patient Yes -Correct Side, Site, Position Yes -Correct Procedure Yes -Procedure Performed Yes -Type of Procedure Debridement -Clinical Debridement Subcutaneous -Tissue Removed Subcutaneous -Post Debridement (cm) - Length 12 -Post Debridement (cm) - Width 11 -Post Debridement (cm) - Depth 0.1 -Total Square (Post) (cm) 132 -Area of Debridement (cm) - Length 12 -Area of Debridement (cm) - Width 11 -Total Square (Area) (cm) 132 -Tunneling No -Undermining/Tunneling No -Circular Undermining No -Wound/Ulcer Outcome Not Healed -Ulcer Cleansing Rinsed/ Irrigated with Saline -Foul Odor after Cleansing No -Bioengineered Tissue No -Bleeding Controlled with Pressure -Treatment Response Procedure Not Tolerated Well -Offloading No -Debridement - Subq, 1st 20sq cm No 9-left ischium -Time 13:35 -Correct Patient Yes -Correct Side, Site, Position Yes -Correct Procedure Yes -Procedure Performed Yes -Type of Procedure Debridement -Clinical Debridement Subcutaneous -Tissue Removed Subcutaneous -Post Debridement (cm) - Length 0.3 -Post Debridement (cm) - Width 0.7 -Post Debridement (cm) - Depth 0.1 -Total Square (Post) (cm) 0.21 -Area of Debridement (cm) - Length 0.3 -Area of Debridement (cm) - Width 0.7 -Total Square (Area) (cm) 0.21 -Tunneling No -Undermining/Tunneling No -Circular Undermining No -Wound/Ulcer Outcome Not Healed -Ulcer Cleansing Rinsed/ Irrigated with Saline -Foul Odor after Cleansing No -Bioengineered Tissue No -Bleeding Controlled with Pressure -Treatment Response Procedure Tolerated Well -Offloading No -Debridement - Subq, 1st 20sq cm No 2-left buttocks -Time 14:17 13:33 -Correct Patient Yes Yes -Correct Side, Site, Position Yes Yes -Correct Procedure Yes Yes -Procedure Performed Yes Yes -Type of Procedure Debridement Debridement -Clinical Debridement Subcutaneous Subcutaneous -Tissue Removed Subcutaneous Subcutaneous -Post Debridement (cm) - Length 1.7 1.8 -Post Debridement (cm) - Width 1.7 1.5 -Post Debridement (cm) - Depth 0.1 0.1 -Total Square (Post) (cm) 2.89 2.70 -Area of Debridement (cm) - Length 1.7 1.8 -Area of Debridement (cm) - Width 1.7 1.5 -Total Square (Area) (cm) 2.89 2.70 -Tunneling No No -Undermining/Tunneling No No -Circular Undermining No No -Wound/Ulcer Outcome Not Healed Not Healed -Ulcer Cleansing Rinsed/ Rinsed/ Irrigated with Irrigated with Saline Saline -Foul Odor after Cleansing No No -Bioengineered Tissue No No -Bleeding Controlled with Pressure Pressure -Treatment Response Procedure Procedure Tolerated Well Tolerated Well -Offloading No No -Pressure Reduction Wheelchair Wheelchair cushion cushion -Debridement - Subq, 1st 20sq cm Yes Yes -Debridement, SubQ, ea addt'l 20sq cm 6 or part thereof Pain Scale: 0-10 Numeric Is Patient Pain Free? Yes Yes WC - Nurse 3 - General Ulcer D/C NN Start: 07/26/22 13:34 Freq: Status: Active Protocol: Activity Type Activity Date Activity User E-sign Co-sign Detail Recorded Client Recorded Date Recorded By Document 07/26/22 14:17 [id number] 07/26/22 14:18 Document 08/08/22 14:05 DL [id number] 08/08/22 14:08 DL 07/26/22 08/08/22 14:17 14:05 Wound Care Nurse 3 10-left leg ulcer cluster -Ulcer Cleansing Soap and Water -Foul Odor after Cleansing No -Primary Dressing Applied NonAdherent Contact Layer, Optilok 6.5x10 -Primary Dressing Covered/Secured with Dry Gauze & Roll Gauze, Secured with Tape -Optilok 6.5x10 1 9-left ischium -Foul Odor after Cleansing No -Primary Dressing Applied Fibracol Plus 4x4 -Primary Dressing Covered/Secured with Dry Gauze, Secured with Tape -Fibracol Plus 4x4 1 2-left buttocks -Ulcer Cleansing Rinsed/ Rinsed/ Irrigated with Irrigated with Saline Saline -Foul Odor after Cleansing No No -Primary Dressing Applied Fibracol Plus 4x4 -Other Dressing fibricol -Primary Dressing Covered/Secured with Dry Gauze, Dry Gauze, Secured with Secured with Tape Tape -Fibracol Plus 4x4 1 zoey -Compression Wrap [place] Wrap Treatment Response Procedure Tolerated Well Pain Scale: 0-10 Numeric Is Patient Pain Free? Yes Yes WC - Visit Discharge Discharge Condition Stable Stable Ambulatory Status Wheelchair Wheelchair Transportation Private Auto Private Auto Accompanied by daughter Medication Reconcilliation completed & Yes provided to patient/care provider Clinical Summary of Care Provided Yes Facility Type Home Health Orders Sent Yes Additional Wound Wound debrided: leg ulcer cluster Laterality: Left Wound Grade/Stage: Stage II Type of Debridement: Excisional debridement Anesthesia Used: 5% Lidocaine Gel Depth: Down to and including healthy tissue and in the subcutaneous layer Percentage of wound debrided: 100 Instrument Used: 3mm curette Tissue Removed: Devitalized tissue and slough Severity: Limited To Skin Breakdown Amount of bleeding with debridement: Mild Bleeding Controlled with: Pressure and Compression and gauze Patient tolerated procedure: Patient tolerated procedure well Assessment/Plan Assessment/Plan (1) Pressure ulcer of left buttock, stage 2: CODE(S): L89.322 - Pressure ulcer of left buttock, stage 2 (2) Ulcer of left lower leg: CODE(S): L97.929 - Non-pressure chronic ulcer of unspecified part of left lower leg with unspecified severity (3) Edema of both lower legs: CODE(S): R60.0 - Localized edema (4) Diabetes mellitus type 2, uncontrolled, without complications: CODE(S): E11.65 - Type 2 diabetes mellitus with hyperglycemia (5) Paraplegia: CODE(S): G82.20 - Paraplegia, unspecified (6) Tobacco use disorder: CODE(S): F17.200 - Nicotine dependence, unspecified, uncomplicated (7) Chronic low back pain: CODE(S): M54.5 - Low back pain; G89.29 - Other chronic pain QUALIFIERS: Back pain laterality: unspecified Sciatica laterality: sciatica laterality unspecified (8) Muscle weakness: CODE(S): M62.81 - Muscle weakness (generalized) PLAN: Plan Patient was seen and evaluated in the wound center today. She has continued to sit/sleep in her wheelchair for long periods of time, but with her new wheelchair she is able to tilt the seat back to help off load. Patient encouraged to off load frequently and to avoid sitting in her wheel chair for longer than 2 hours at a time. Wound care - Wash daily with soap and water daily. Left buttock/ischial ulcers place Fibrocol + topped with gauze or super absorber daily and as needed. Left leg place adaptic over the ulcer cluster and top with super absorber. Compression - Single layer tubigrip with OSITO wrap bilateral legs. Stressed the importance of off loading and not sitting in her chair too long. She also avoid laying on her back in bed for long periods of time because that is probably contributing to the coccyx area becoming pink and dry. Wound culture obtained 02/21/22 which was negative for bacterial growth. Wound culture obtained on 10/18/21 which were positive for MRSE and Anaerobic cocci. She completed Doxycycline and Flagyl. Encourage diet high in protein, low in carbohydrates. Encouraged increase in Vitamin C to 1,000 mg/day. Due to her history of diabetes and being a paraplegia, she is at increased risk for delayed wound healing, especially since she does not off load as she should. Will refer her to Palliative care for evaluation for her uncontrolled chronic pain. Will refer her to Dr. Castellano for venous study done on 07/11/22 which showed Portions of the deep veins of both calves were not visualized?due to swelling and edema. Non-phasic venous flow in the left lower extremity deep venous system may?be indicative of venous outflow obstruction or stenosis. Clinical correlation is advised. Arterial studies done on 07/11/22 showed The right ankle brachial index by the posterior tibial artery is 1.01. The right ankle brachial index by the dorsalis pedis is 1.08. The right digital-brachial index is 0.57. The left ankle brachial index by the posterior tibial artery is 0.94. The left ankle brachial index by the dorsalis pedis is 0.95. The left digital-brachial index is 0.61. Follow up two weeks. She is to call or come in sooner or go to the ED if she develops any issues or concerns.
[2022-08-23 12:59] VITALS: BP 133/76; PULSE 85; RESP 20; TEMP 36.4; BMI 32.3
--- NOTE | 2022-08-23 16:14 | PCM.WC.PN ---
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 Nevarez for pressure ulcers on her left medial buttocks/ischial area. Patient is wheelchair bound. She has a significant medical history of DM type 2, multiple back surgeries which eventually caused her become a paraplegic. Patient is a very poor historian and keeps falling asleep during her appointment. Patient is not sure how long she has had the pressure sore on her left medial buttocks, she is guessing a few months. She has been placing a cream on this area. She is unsure what cream it is. The ulcer cluster is painful to palpation. She states she sits in her wheelchair often more than 8 hours per day and will sometimes fall asleep in her chair. She does not have a special cushion for her wheelchair. She sleeps in a regular hospital bed, not a low air loss mattress. This week she has a new area on her left buttocks and a cluster on left coccyx cluster. These areas look like pressure. Wound care - Wash daily with soap and water. Place Fibrocal + and cover with gauze daily and as needed to the left ischial ulcer. Try to off load as much as possible and try to avoid sitting for long periods of time. Wound culture obtained on 02/21/22 had not growth. Wound culture obtained on 10/18/21 which were positive for MRSE and Anaerobic cocci. Completed Doxycycline and Flagyl. Progress of Wound: Left superior buttocks ulcer is stable. The ulcer on left inferior is healed today. Left leg is very edematous (+4 pitting edema) with cluster of ulcers that area draining large amount of serous fluid. Right leg has +2 edema but there are no ulcers present today and she is not weeping from that leg. Objective Data Objective Data Vital Signs: Vital Signs Temp Pulse Resp BP 97.6 F L 85 20 H 133/76 H 08/23/22 12:59 08/23/22 12:59 08/23/22 12:59 08/23/22 12:59 Weight: 200 lb Body Mass Index (BMI) 32.3 Charges/Coding Procedures Integumentary 111xxx-113xx: 47438 Shila subq tissue 20 sq cm/< Add On Codes: 50767 Shila subq tissue add-on (x8) Debridement Note Debridement Note Wound debrided: left ischial ulcer Laterality: Left Wound Grade/Stage: stage II Type of Debridement: Excisional debridement Anesthesia Used: 5% Lidocaine Gel Depth: Down to and including healthy tissue and in the subcutaneous layer Percentage of wound debrided: 100 Instrument Used: 3mm curette Tissue Removed: Devitalized tissue and slough Severity: Limited To Skin Breakdown Amount of bleeding with debridement: Mild Bleeding Controlled with: Compression and gauze Patient tolerated procedure: Patient tolerated procedure well Post-Debridement Measurements and Additional Note: Post-Debridement Measurements/Treatment - Nurse 1 - General Ulcer Assessment Start: 07/26/22 13:34 Freq: Status: Active Protocol: TAISHA Activity Type Activity Date Activity User E-sign Co-sign Detail Recorded Client Recorded Date Recorded By Document 07/26/22 13:34 [facility] [id number] 07/26/22 13:42 [facility] Document 08/08/22 13:54 AR [id number] 08/08/22 13:57 AR Document 08/23/22 12:59 [facility] [id number] 08/23/22 13:12 [facility] 07/26/22 08/08/22 08/23/22 13:34 13:54 12:59 - Today's Visit Information Type of service Follow-up Visit Follow-up Visit Follow-up Visit (Physician/MANAGEMENT SERVICES TECHNICIAN (Physician/MANAGEMENT SERVICES TECHNICIAN (Physician/MANAGEMENT SERVICES TECHNICIAN ) ) ) Arrival Mode Wheelchair Wheelchair Wheelchair Transfer Assistance None None Transfer Assist (Other) X1 Patient Identification Verified (Name & Yes Yes Yes ) Patient Requires Transmission-Based No No No Precautions Finger Stick Blood Sugar(mg/dl) (if NOT CHECKED NOT CHECKED indicated): Blood Sugar Stated by Stated by Patient Patient Height and Weight Body Mass Index (BMI) 32.3 32.3 32.3 BMI Classification Obese Obese Obese Vital Signs Temperature (97.8 F-99.1 F) 97 F L 96.3 F L 97.6 F L Temperature Source Temporal Temporal Temporal Pulse Rate (60-100) 108 H 101 H 85 Pulse Location Monitor Monitor Monitor Respiratory Rate (12-18) 20 H 20 H Respiratory rate source Observation Observation Blood Pressure (90/60-120/80) 106/76 137/70 H 133/76 H Blood Pressure Mean (mm Hg) 86 92 95 Source Monitor Monitor Monitor History Since Last Visit- (Skip if this is Patient's initial visit) Have you changed medications since your No No No last visit? Any new allergies or adverse reactions No No No Had a fall/change in ADL's that may No No No increase risk of falls Signs or symptoms of abuse and/or No No No neglect since last visit Have you been in the hospital since your No No No last visit? Has dressing in place as prescribed Yes Yes Yes Has compression in place as prescribed N/A N/A Yes Has offloadiing in place as prescribed Yes N/A N/A Experienced any changes in pain level or No No Yes management Left Footwear Slipper Right Footwear Slipper Pain Scale: 0-10 Numeric Is Patient Pain Free? Yes No Yes WC - Nurse 1 - General Ulcer Measurement Start: 07/26/22 13:34 Freq: Status: Active Protocol: Activity Type Activity Date Activity User E-sign Co-sign Detail Recorded Client Recorded Date Recorded By Document 07/26/22 13:34 [facility] [id number] 07/26/22 13:42 [facility] Document 08/08/22 13:54 AR [id number] 08/08/22 13:57 AR Document 08/23/22 12:59 [facility] [id number] 08/23/22 13:12 [facility] 07/26/22 08/08/22 08/23/22 13:34 13:54 12:59 Wound Center Nurse 1 2-left buttocks -Current Size (cm) - Length 1.6 0.7 -Current Size (cm) - Width 1.5 0.8 -Current Size (cm) - Depth 0.1 0.1 -Total Square Cm 2.40 0.56 -Photo Taken Yes Yes -Exudate Amt Small Small -Exudate Type Serosanguineous -Wound Margin Distinct, Distinct, Outline Outline Attached Attached -Granulation Amt Large (67-100%) Large (67-100%) -Granulation Quality Pale,[place] -Necrosis Amt None Present (0 None Present (0 %) %) -Structure Exposed N/A N/A -Texture (Vivi-wound Skin Appearance) Scarring Scarring -Moisture (Vivi-wound Skin Appearance) No Abnormality No Abnormality -Color (Vivi-wound Skin Appearance) Ecchymosis, No Abnormality Hemosiderin Staining -Temperature (Vivi-wound Skin No Abnormality No Abnormality Appearance) (Pt Warm) (Pt Warm) -Tenderness on Palpation (Vivi-wound No No Skin Appearance) -Ulcer Cleansing Soap and Water Soap and Water -Foul Odor after Cleansing No -Anesthetic Used 5% Lidocaine 5% Lidocaine Gel Gel 10-left leg ulcer cluster -Combined with other wound No -Current Size (cm) - Length 2 9.4 -Current Size (cm) - Width 2 11.3 -Current Size (cm) - Depth 0.1 0.1 -Total Square Cm 4 106.22 -Date of Last Picture (Recall this 08/08/22 field) -Photo Taken Yes Yes -Tunneling No -Undermining/Tunneling No -Circular Undermining No -Change in Wound Grade/Stage No -Exudate Amt Medium Small -Exudate Type Serosanguineous Serosanguineous -Wound Margin Distinct, Indistinct, Non Outline -Visible Attached -Granulation Amt Medium (34-66%) Large (67-100%) -Granulation Quality [place] -Slough/Fibrin Yes -Necrosis Amt Medium (34-66%) None Present (0 %) -Necrotic Tissue Type Adherent Slough -Structure Exposed N/A N/A -Texture (Vivi-wound Skin Appearance) Assessed, Localized Edema Excoriation ,Scarring -Moisture (Vivi-wound Skin Appearance) No Abnormality, Weeping Assessed -Color (Vivi-wound Skin Appearance) No Abnormality, Hemosiderin Assessed Staining -Temperature (Vivi-wound Skin No Abnormality No Abnormality Appearance) (Pt Warm) (Pt Warm) -Tenderness on Palpation (Vivi-wound No No Skin Appearance) -Ulcer Cleansing Rinsed/ Soap and Water Irrigated with Saline -Foul Odor after Cleansing No No -Anesthetic Used 5% Lidocaine 5% Lidocaine Gel Gel 9-left ischium -Combined with other wound No -Current Size (cm) - Length 0.2 0.8 -Current Size (cm) - Width 0.3 0.2 -Current Size (cm) - Depth 0.1 0.2 -Total Square Cm 0.06 0.16 -Date of Last Picture (Recall this 08/08/22 field) -Photo Taken Yes Yes -Tunneling No -Undermining/Tunneling No -Circular Undermining No -Change in Wound Grade/Stage No -Exudate Amt None Present Small -Wound Margin Distinct, Distinct, Outline Outline Attached Attached -Granulation Amt Medium (34-66%) Large (67-100%) -Granulation Quality [place] -Slough/Fibrin Yes -Necrosis Amt Medium (34-66%) None Present (0 %) -Necrotic Tissue Type Adherent Slough -Structure Exposed N/A N/A -Texture (Vivi-wound Skin Appearance) No Abnormality, Scarring Assessed -Moisture (Vivi-wound Skin Appearance) No Abnormality, No Abnormality Assessed -Color (Vivi-wound Skin Appearance) No Abnormality, No Abnormality Assessed -Temperature (Vivi-wound Skin No Abnormality No Abnormality Appearance) (Pt Warm) (Pt Warm) -Tenderness on Palpation (Vivi-wound No No Skin Appearance) -Ulcer Cleansing Rinsed/ Soap and Water Irrigated with Saline -Foul Odor after Cleansing No No -Anesthetic Used 5% Lidocaine 5% Lidocaine Gel Gel Right Calf (cm) 39.1 Right Ankle (cm) 24.6 Right Foot (cm) 42.5 Left Calf (cm) 26 WC - Nurse 2 - General Ulcer CM Notes Start: 07/26/22 13:34 Freq: Status: Active Protocol: Activity Type Activity Date Activity User E-sign Co-sign Detail Recorded Client Recorded Date Recorded By Document 07/26/22 14:16 [id number] 07/26/22 14:17 Document 08/08/22 13:22 [id number] 08/08/22 13:39 Document 08/23/22 13:34 [id number] 08/23/22 13:54 MW 07/26/22 08/08/22 08/23/22 14:16 13:22 13:34 Wound Center Nurse 2 2-left buttocks -Time 14:17 13:33 13:46 -Correct Patient Yes Yes Yes -Correct Side, Site, Position Yes Yes Yes -Correct Procedure Yes Yes Yes -Procedure Performed Yes Yes No -Type of Procedure Debridement Debridement -Clinical Debridement Subcutaneous Subcutaneous -Tissue Removed Subcutaneous Subcutaneous -Post Debridement (cm) - Length 1.7 1.8 0 -Post Debridement (cm) - Width 1.7 1.5 0 -Post Debridement (cm) - Depth 0.1 0.1 0 -Total Square (Post) (cm) 2.89 2.70 0 -Area of Debridement (cm) - Length 1.7 1.8 -Area of Debridement (cm) - Width 1.7 1.5 -Total Square (Area) (cm) 2.89 2.70 -Tunneling No No -Undermining/Tunneling No No -Circular Undermining No No -Wound/Ulcer Outcome Not Healed Not Healed Healed- Epithelialized -Ulcer Cleansing Rinsed/ Rinsed/ Irrigated with Irrigated with Saline Saline -Foul Odor after Cleansing No No -Bioengineered Tissue No No -Bleeding Controlled with Pressure Pressure -Treatment Response Procedure Procedure Tolerated Well Tolerated Well -Offloading No No -Pressure Reduction Wheelchair Wheelchair cushion cushion -Debridement - Subq, 1st 20sq cm Yes Yes -Debridement, SubQ, ea addt'l 20sq cm 6 or part thereof 10-left leg ulcer cluster -Time 13:38 13:47 -Correct Patient Yes Yes -Correct Side, Site, Position Yes Yes -Correct Procedure Yes Yes -Procedure Performed Yes Yes -Type of Procedure Debridement -Type of Procedure Debridement -Clinical Debridement Subcutaneous Subcutaneous -Tissue Removed Subcutaneous Subcutaneous -Post Debridement (cm) - Length 12 10.0 -Post Debridement (cm) - Width 11 16.5 -Post Debridement (cm) - Depth 0.1 0.1 -Total Square (Post) (cm) 132 165.00 -Area of Debridement (cm) - Length 12 10.0 -Area of Debridement (cm) - Width 11 16.5 -Total Square (Area) (cm) 132 165.00 -Tunneling No No -Undermining/Tunneling No No -Circular Undermining No No -Wound/Ulcer Outcome Not Healed Not Healed -Ulcer Cleansing Rinsed/ Rinsed/ Irrigated with Irrigated with Saline Saline -Foul Odor after Cleansing No No -Bioengineered Tissue No No -Bleeding Controlled with Pressure Pressure -Treatment Response Procedure Not Procedure Tolerated Well Tolerated Well -Offloading No No -Debridement - Subq, 1st 20sq cm No Yes -Debridement, SubQ, ea addt'l 20sq cm 8 or part thereof 9-left ischium -Time 13:35 13:35 -Correct Patient Yes Yes -Correct Side, Site, Position Yes Yes -Correct Procedure Yes Yes -Procedure Performed Yes Yes -Type of Procedure Debridement -Type of Procedure Debridement -Clinical Debridement Subcutaneous Subcutaneous -Tissue Removed Subcutaneous Subcutaneous -Post Debridement (cm) - Length 0.3 0.7 -Post Debridement (cm) - Width 0.7 1.0 -Post Debridement (cm) - Depth 0.1 0.1 -Total Square (Post) (cm) 0.21 0.70 -Area of Debridement (cm) - Length 0.3 0.7 -Area of Debridement (cm) - Width 0.7 1.0 -Total Square (Area) (cm) 0.21 0.70 -Tunneling No No -Undermining/Tunneling No No -Circular Undermining No No -Wound/Ulcer Outcome Not Healed Not Healed -Ulcer Cleansing Rinsed/ Rinsed/ Irrigated with Irrigated with Saline Saline -Foul Odor after Cleansing No No -Bioengineered Tissue No No -Bleeding Controlled with Pressure Pressure -Treatment Response Procedure Procedure Tolerated Well Tolerated Well -Offloading No No -Debridement - Subq, 1st 20sq cm No No Pain Scale: 0-10 Numeric Is Patient Pain Free? Yes Yes Yes WC - Nurse 3 - General Ulcer D/C NN Start: 07/26/22 13:34 Freq: Status: Active Protocol: Activity Type Activity Date Activity User E-sign Co-sign Detail Recorded Client Recorded Date Recorded By Document 07/26/22 14:17 [id number] 07/26/22 14:18 Document 08/08/22 14:05 DL [id number] 08/08/22 14:08 DL Document 08/23/22 13:58 AK [id number] 08/23/22 14:01 AR 07/26/22 08/08/22 08/23/22 14:17 14:05 13:58 Wound Care Center Nurse 3 2-left buttocks -Ulcer Cleansing Rinsed/ Rinsed/ Irrigated with Irrigated with Saline Saline -Foul Odor after Cleansing No No -Primary Dressing Applied Fibracol Plus 4x4 -Other Dressing fibricol -Primary Dressing Covered/Secured with Dry Gauze, Dry Gauze, Secured with Secured with Tape Tape -Fibracol Plus 4x4 1 10-left leg ulcer cluster -Ulcer Cleansing Soap and Water Rinsed/ Irrigated with Saline -Foul Odor after Cleansing No No -Negative Pressure Wound Therapy N/A -Primary Dressing Applied NonAdherent Silvercel Contact Layer, Optilok 6.5x10 -Primary Dressing Covered/Secured with Dry Gauze & Dry Gauze & Roll Gauze, Roll Gauze, Secured with Secured with Tape Tape -Optilok 6.5x10 1 2 -Silvercel 1 9-left ischium -Ulcer Cleansing Rinsed/ Irrigated with Saline -Foul Odor after Cleansing No No -Negative Pressure Wound Therapy N/A -Primary Dressing Applied Fibracol Plus Fibracol Plus 4x4 4x4,Mepilex Border -Primary Dressing Covered/Secured with Dry Gauze, Secured with Tape -Fibracol Plus 4x4 1 1 -Mepilex Border 1 zoey -Lotion applied to leg before No compression wrap -Compression Wrap Osito Wrap -Compression Wrap [place] Wrap -Tubular Bandage Double Layer -Size of Tubigrip Used Size E -Size E ($) 4 Treatment Response Procedure Tolerated Well Pain Scale: 0-10 Numeric Is Patient Pain Free? Yes Yes Yes WC - Visit Discharge Discharge Condition Stable Stable Stable Ambulatory Status Wheelchair Wheelchair Wheelchair Transportation Private Auto Private Auto Private Auto Accompanied by daughter daughter Medication Reconcilliation completed & Yes Yes provided to patient/care provider Clinical Summary of Care Provided Yes Yes Facility Type Home Health Orders Sent Yes Additional Wound Wound debrided: leg ulcer cluster Laterality: Left Wound Grade/Stage: Stage II Type of Debridement: Excisional debridement Anesthesia Used: 5% Lidocaine Gel Depth: Down to and including healthy tissue and in the subcutaneous layer Percentage of wound debrided: 100 Instrument Used: 3mm curette Tissue Removed: Devitalized tissue and slough Severity: Limited To Skin Breakdown Amount of bleeding with debridement: Mild Bleeding Controlled with: Pressure and Compression and gauze Patient tolerated procedure: Patient tolerated procedure well Assessment/Plan Assessment/Plan (1) Pressure ulcer of left buttock, stage 2: CODE(S): L89.322 - Pressure ulcer of left buttock, stage 2 (2) Ulcer of left lower leg: CODE(S): L97.929 - Non-pressure chronic ulcer of unspecified part of left lower leg with unspecified severity (3) Edema of both lower legs: CODE(S): R60.0 - Localized edema (4) Diabetes mellitus type 2, uncontrolled, without complications: CODE(S): E11.65 - Type 2 diabetes mellitus with hyperglycemia (5) Paraplegia: CODE(S): G82.20 - Paraplegia, unspecified (6) Tobacco use disorder: CODE(S): F17.200 - Nicotine dependence, unspecified, uncomplicated (7) Chronic low back pain: CODE(S): M54.5 - Low back pain; G89.29 - Other chronic pain QUALIFIERS: Back pain laterality: unspecified Sciatica laterality: sciatica laterality unspecified (8) Muscle weakness: CODE(S): M62.81 - Muscle weakness (generalized) PLAN: Plan Patient was seen and evaluated in the wound center today. She has continued to sit/sleep in her wheelchair for long periods of time, but with her new wheelchair she is able to tilt the seat back to help off load. Patient encouraged to off load frequently and to avoid sitting in her wheel chair for longer than 2 hours at a time. Wound care - Wash daily with soap and water daily. Left ischial ulcer place Fibrocol + topped with gauze or Mepilex dressing daily and as needed. Left leg place Silvercel over the ulcer cluster and top with super absorber. Compression - Single layer tubigrip with OSITO wrap bilateral legs. Stressed the importance of off loading and not sitting in her chair too long. Wound culture obtained 02/21/22 which was negative for bacterial growth. Wound culture obtained 10/18/21 which was positive for MRSE and Anaerobic cocci. She completed Doxycycline and Flagyl. Encourage a diet high in protein, low carbohydrates and increase Vitamin C for wound healing and control of her diabetes. Due to her history of diabetes and being a paraplegia, she is at increased risk for delayed wound healing, especially since she does not off load as she should. She has been referred to Palliative care for evaluation for her uncontrolled pain. She states that they said she does qualify for Palliative care, but she has not been seen by one of their providers. She was referred to Dr. Castellano and she sees him on . Her venous study done 07/11/22 showed Portions of the deep veins of both calves were not visualized due to swelling and edema. Non-phasic venous flow in the left lower extremity deep venous system may be indicative of venous outflow obstruction or stenosis. Clinical correlation is advised. The Arterial study done 07/11/22 showed The right ankle brachial index by the posterior tibial artery is 1.01. The right ankle brachial index by the dorsalis pedis is 1.08. The right digital-brachial index is 0.57. The left ankle brachial index by the posterior tibial artery is 0.94. The left ankle brachial index by the dorsalis pedis is 0.95. The left digital-brachial index is 0.61. Follow up two weeks. She is to call or come in sooner or go to the ED if she develops any issues or concerns.
== END 2022-08-23 23:59 | disposition home or self-care (01) ==
LOC: WC 13:00
PROVIDERS: PCP Internal Medicine; Visit Provider Nurse Practitioner Family
DX: E11.622 Type 2 diabetes mellitus with other skin ulcer (principal); G82.20 Paraplegia, unspecified; L89.322 Pressure ulcer of left buttock, stage 2; B37.31 Acute candidiasis of vulva and vagina; Z99.3 Dependence on wheelchair; F17.200 Nicotine dependence, unspecified, uncomplicated; R60.0 Localized edema; B37.2 Candidiasis of skin and nail
CPT/HCPCS: 11042; 11045

== ENCOUNTER 2022-09-19 11:00 | Outpatient (RCR) | payer MEDICARE, MEDICAID, SELFPAY ==
[2022-08-24 00:24] VITALS: BP 133/76; PULSE 85; RESP 20; TEMP 36.4; BMI 32.3
[2022-09-05 13:01] VITALS: BP 137/74; PULSE 76; RESP 16; TEMP 36; BMI 32.3
--- NOTE | 2022-09-05 15:03 | PCM.WC.PN ---
History of Present Illness Date of Service: 09/05/22 Chief Complaint: Sore on left buttocks History of Wound: Patient was referred by her CERTIFIED APPLIANCE SERVICE TECHNICIAN, Dr. Nevarez for pressure ulcers on her left medial buttocks/ischial area. Patient is wheelchair bound. She has a significant medical history of DM type 2, multiple back surgeries which eventually caused her become a paraplegic. Patient is a very poor historian and keeps falling asleep during her appointment. Patient is not sure how long she has had the pressure sore on her left medial buttocks, she is guessing a few months. She has been placing a cream on this area. She is unsure what cream it is. The ulcer cluster is painful to palpation. She states she sits in her wheelchair often more than 8 hours per day and will sometimes fall asleep in her chair. She does not have a special cushion for her wheelchair. She sleeps in a regular hospital bed, not a low air loss mattress. This week she has a new area on her left buttocks and a cluster on left coccyx cluster. These areas look like pressure. Wound care - Wash daily with soap and water. Place Fibrocal + and cover with gauze daily and as needed to the left ischial ulcer. Try to off load as much as possible and try to avoid sitting for long periods of time. Wound culture obtained on 02/21/22 had not growth. Wound culture obtained on 10/18/21 which were positive for MRSE and Anaerobic cocci. Completed Doxycycline and Flagyl. Progress of Wound: Left superior buttocks ulcer is healed. Left medial leg ulcer and left lateral leg ulcer are stable. She continues to have +2-+3 edema. Objective Data Objective Data Vital Signs: Vital Signs Temp Pulse Resp BP O2 Del Method 96.8 F L 76 16 137/74 H Room Air 09/05/22 13:01 09/05/22 13:01 09/05/22 13:01 09/05/22 13:01 09/05/22 13:01 Oxygen Delivery Method Room Air Weight: 200 lb Body Mass Index (BMI) 32.3 Charges/Coding Procedures Integumentary 111xxx-113xx: [id number] Shila subq tissue 20 sq cm/< Debridement Note Debridement Note Wound debrided: medial leg ulcer and left lateral leg ulcer Laterality: Left Wound Grade/Stage: Stage II Type of Debridement: Excisional debridement Anesthesia Used: 5% Lidocaine Gel Depth: Down to and including healthy tissue and in the subcutaneous layer Percentage of wound debrided: 100 Instrument Used: 3mm curette Tissue Removed: Devitalized tissue and slough Severity: Limited To Skin Breakdown Amount of bleeding with debridement: Mild Bleeding Controlled with: Pressure and Compression and gauze Patient tolerated procedure: Patient tolerated procedure well Post-Debridement Measurements and Additional Note: Post-Debridement Measurements/Treatment - Nurse 1 - General Ulcer Assessment Start: 09/05/22 13:00 Freq: Status: Active Protocol: TAISHA Activity Type Activity Date Activity User E-sign Co-sign Detail Recorded Client Recorded Date Recorded By Document 09/05/22 13:01 [facility] [id number] 09/05/22 13:22 [facility] 09/05/22 13:01 WC - Today's Visit Information Type of service Nurse-only Visit Arrival Mode Wheelchair Transfer Assistance Other Transfer Assist (Other) 1 Accompanied by spike Patient Identification Verified (Name & Yes ) Height and Weight Body Mass Index (BMI) 32.3 BMI Classification Obese Vital Signs Temperature (97.8 F-99.1 F) 96.8 F L Temperature Source Temporal Pulse Rate (60-100) 76 Pulse Location Monitor Respiratory Rate (12-18) 16 Respiratory rate source Observation Oxygen Delivery Method Room Air Blood Pressure (90/60-120/80) 137/74 H Blood Pressure Mean (mm Hg) 95 Source Monitor Position Sitting Blood Pressure Location Right Arm History Since Last Visit- (Skip if this is Patient's initial visit) Have you changed medications since your No last visit? Any new allergies or adverse reactions No Had a fall/change in ADL's that may No increase risk of falls Signs or symptoms of abuse and/or No neglect since last visit Have you been in the hospital since your No last visit? Has dressing in place as prescribed Yes Has compression in place as prescribed N/A Has offloadiing in place as prescribed N/A Experienced any changes in pain level or No management Left Footwear Slipper Right Footwear Slipper Pain Scale: 0-10 Numeric Is Patient Pain Free? Yes Gabbie Nurse 1 - General Ulcer Measurement Start: 09/05/22 13:00 Freq: Status: Active Protocol: Activity Type Activity Date Activity User E-sign Co-sign Detail Recorded Client Recorded Date Recorded By Document 09/05/22 13:01 [facility] [id number] 09/05/22 13:22 [facility] 09/05/22 13:01 Wound Center Nurse 1 #11 L lower Leg medial -Current Size (cm) - Length 1.7 -Current Size (cm) - Width 1.2 -Current Size (cm) - Depth 0.1 -Total Square Cm 2.04 -Date of Last Picture (Recall this 09/05/22 field) -Photo Taken Yes -Tunneling No -Undermining/Tunneling No -Circular Undermining No -Change in Wound Grade/Stage No -Exudate Amt Medium -Exudate Type Serosanguineous -Wound Margin Distinct, Outline Attached -Granulation Amt Large (67-100%) -Granulation Quality Greenback -Slough/Fibrin No -Structure Exposed N/A -Texture (Vivi-wound Skin Appearance) No Abnormality, Assessed -Moisture (Vivi-wound Skin Appearance) No Abnormality, Assessed -Color (Vivi-wound Skin Appearance) No Abnormality, Assessed -Temperature (Vivi-wound Skin No Abnormality Appearance) (Pt Warm) -Tenderness on Palpation (Vivi-wound No Skin Appearance) -Ulcer Cleansing Rinsed/ Irrigated with Saline -Foul Odor after Cleansing No -Anesthetic Used 4% Lidocaine Solution 9-left ischium -Combined with other wound No -Current Size (cm) - Length 0.1 -Current Size (cm) - Width 0.1 -Current Size (cm) - Depth 0.1 -Total Square Cm 0.01 -Date of Last Picture (Recall this 09/05/22 field) -Photo Taken Yes -Tunneling No -Undermining/Tunneling No -Circular Undermining No -Change in Wound Grade/Stage No -Exudate Amt Small -Exudate Type Serosanguineous -Wound Margin Distinct, Outline Attached -Granulation Amt None Present (0 %) -Granulation Quality N/A -Slough/Fibrin No -Necrosis Amt None Present (0 %) -Structure Exposed N/A -Texture (Vivi-wound Skin Appearance) No Abnormality, Assessed -Moisture (Vivi-wound Skin Appearance) No Abnormality, Assessed -Color (Vivi-wound Skin Appearance) No Abnormality, Assessed -Temperature (Vivi-wound Skin No Abnormality Appearance) (Pt Warm) -Tenderness on Palpation (Vivi-wound No Skin Appearance) -Ulcer Cleansing Rinsed/ Irrigated with Saline -Foul Odor after Cleansing No -Anesthetic Used 4% Lidocaine Solution #12 right diego -Combined with other wound No -Current Size (cm) - Length 2.5 -Current Size (cm) - Width 0.4 -Current Size (cm) - Depth 0.1 -Total Square Cm 1.00 -Photo Taken Yes -Tunneling No -Undermining/Tunneling No -Circular Undermining No -Change in Wound Grade/Stage No -Exudate Amt Large -Exudate Type Serosanguineous -Wound Margin Distinct, Outline Attached -Granulation Amt Small (1-33%) -Granulation Quality Greenback -Slough/Fibrin Yes -Necrosis Amt Large (67-100%) -Necrotic Tissue Type Adherent Slough -Structure Exposed N/A -Texture (Vivi-wound Skin Appearance) No Abnormality, Assessed -Moisture (Vivi-wound Skin Appearance) No Abnormality, Assessed -Color (Vivi-wound Skin Appearance) No Abnormality, Assessed -Temperature (Vivi-wound Skin No Abnormality Appearance) (Pt Warm) -Tenderness on Palpation (Vivi-wound No Skin Appearance) -Ulcer Cleansing Rinsed/ Irrigated with Saline -Foul Odor after Cleansing No -Anesthetic Used 4% Lidocaine Solution 10-left leg ulcer medial -Combined with other wound No -Current Size (cm) - Length 6 -Current Size (cm) - Width 7.7 -Current Size (cm) - Depth 0.1 -Total Square Cm 46.2 -Date of Last Picture (Recall this 09/05/22 field) -Photo Taken Yes -Epithelialization None Present -Tunneling No -Undermining/Tunneling No -Circular Undermining No -Change in Wound Grade/Stage No -Exudate Amt Large -Exudate Type Serosanguineous -Wound Margin Distinct, Outline Attached -Granulation Amt Large (67-100%) -Granulation Quality Greenback -Slough/Fibrin No -Necrosis Amt None Present (0 %) -Structure Exposed N/A -Texture (Vivi-wound Skin Appearance) No Abnormality, Assessed -Moisture (Vivi-wound Skin Appearance) No Abnormality, Assessed, Weeping -Color (Vivi-wound Skin Appearance) No Abnormality, Assessed -Temperature (Vivi-wound Skin No Abnormality Appearance) (Pt Warm) -Tenderness on Palpation (Vivi-wound No Skin Appearance) -Ulcer Cleansing Rinsed/ Irrigated with Saline -Foul Odor after Cleansing No -Anesthetic Used 4% Lidocaine Solution WC - Nurse 2 - General Ulcer CM Notes Start: 09/05/22 13:00 Freq: Status: Active Protocol: Activity Type Activity Date Activity User E-sign Co-sign Detail Recorded Client Recorded Date Recorded By Document 09/05/22 13:47 JF [id number] 09/05/22 13:55 JF Edit Result 09/05/22 13:47 JF (1) [id number] 09/05/22 13:58 JF (1) #11 L lower Leg medial - Post Debridement (cm) - Length => 1.5 - Post Debridement (cm) - Width => 1.7 - Post Debridement (cm) - Depth => 0.1 - Total Square (Post) (cm) => 2.55 - Area of Debridement (cm) - Length => 1.5 - Area of Debridement (cm) - Width => 1.7 - Total Square (Area) (cm) => 2.55 - Debridement - Subq, 1st 20sq cm No => Yes 13-left lateral leg - Debridement - Subq, 1st 20sq cm Yes => No 09/05/22 13:47 Wound Center Nurse 2 #11 L lower Leg medial -Time 13:49 -Correct Patient Yes -Correct Side, Site, Position Yes -Correct Procedure Yes -Procedure Performed Yes -Type of Procedure Debridement -Clinical Debridement Subcutaneous -Tissue Removed Subcutaneous -Post Debridement (cm) - Length 1.5 -Post Debridement (cm) - Width 1.7 -Post Debridement (cm) - Depth 0.1 -Total Square (Post) (cm) 2.55 -Area of Debridement (cm) - Length 1.5 -Area of Debridement (cm) - Width 1.7 -Total Square (Area) (cm) 2.55 -Tunneling No -Undermining/Tunneling No -Circular Undermining No -Wound/Ulcer Outcome Not Healed -Ulcer Cleansing Rinsed/ Irrigated with Saline -Foul Odor after Cleansing No -Bioengineered Tissue No -Bleeding Controlled with Pressure -Treatment Response Procedure Tolerated Well -Offloading No -Debridement - Subq, 1st 20sq cm Yes 13-left lateral leg -Time 13:52 -Correct Patient Yes -Correct Side, Site, Position Yes -Correct Procedure Yes -Procedure Performed Yes -Type of Procedure Debridement -Clinical Debridement Subcutaneous -Tissue Removed Subcutaneous -Post Debridement (cm) - Length 1.5 -Post Debridement (cm) - Width 1.7 -Post Debridement (cm) - Depth 0.1 -Total Square (Post) (cm) 2.55 -Area of Debridement (cm) - Length 1.5 -Area of Debridement (cm) - Width 1.7 -Total Square (Area) (cm) 2.55 -Tunneling No -Undermining/Tunneling No -Circular Undermining No -Wound/Ulcer Outcome Not Healed -Ulcer Cleansing Rinsed/ Irrigated with Saline -Foul Odor after Cleansing No -Bioengineered Tissue No -Bleeding Controlled with Pressure -Treatment Response Procedure Tolerated Well -Offloading No -Debridement - Subq, 1st 20sq cm No #12 right diego -Time 13:47 -Correct Patient Yes -Correct Side, Site, Position Yes -Correct Procedure Yes -Procedure Performed Yes -Type of Procedure Debridement -Clinical Debridement Subcutaneous -Tissue Removed Subcutaneous -Post Debridement (cm) - Length 2.3 -Post Debridement (cm) - Width 4 -Post Debridement (cm) - Depth 0.1 -Total Square (Post) (cm) 9.2 -Area of Debridement (cm) - Length 2.3 -Area of Debridement (cm) - Width 4.0 -Total Square (Area) (cm) 9.20 -Tunneling No -Undermining/Tunneling No -Circular Undermining No -Wound/Ulcer Outcome Not Healed -Ulcer Cleansing Rinsed/ Irrigated with Saline -Foul Odor after Cleansing No -Bioengineered Tissue No -Bleeding Controlled with Pressure -Treatment Response Procedure Tolerated Well -Offloading No -Debridement - Subq, 1st 20sq cm No 10-left leg ulcer medial -Time 13:51 -Correct Patient Yes -Correct Side, Site, Position Yes -Correct Procedure Yes -Procedure Performed Yes -Type of Procedure Debridement -Clinical Debridement Subcutaneous -Tissue Removed Subcutaneous -Post Debridement (cm) - Length 1.8 -Post Debridement (cm) - Width 4 -Post Debridement (cm) - Depth 0.1 -Total Square (Post) (cm) 7.2 -Area of Debridement (cm) - Length 1.8 -Area of Debridement (cm) - Width 4 -Total Square (Area) (cm) 7.2 -Tunneling No -Undermining/Tunneling No -Circular Undermining No -Wound/Ulcer Outcome Not Healed -Ulcer Cleansing Rinsed/ Irrigated with Saline -Foul Odor after Cleansing No -Bioengineered Tissue No -Bleeding Controlled with Pressure -Treatment Response Procedure Tolerated Well -Offloading No -Debridement - Subq, 1st 20sq cm No Pain Scale: 0-10 Numeric Is Patient Pain Free? Yes WC - Nurse 3 - General Ulcer D/C NN Start: 09/05/22 13:00 Freq: Status: Active Protocol: Activity Type Activity Date Activity User E-sign Co-sign Detail Recorded Client Recorded Date Recorded By Document 09/05/22 14:05 ML [id number] 09/05/22 14:09 ML 09/05/22 14:05 Wound Care Center Nurse 3 13-left lateral leg -Ulcer Cleansing Rinsed/ Irrigated with Saline -Foul Odor after Cleansing No -Primary Dressing Applied Aquacel AG 4x4 -Other Dressing ADAPTIC -Primary Dressing Covered/Secured with Dry Gauze, Secured with Tape -Aquacel AG 4x4 1 #12 right diego -Ulcer Cleansing Rinsed/ Irrigated with Saline -Foul Odor after Cleansing No -Primary Dressing Applied Aquacel AG 4x4 -Other Dressing ADAPTIC -Primary Dressing Covered/Secured with Dry Gauze, Secured with Tape -Aquacel AG 4x4 0 10-left leg ulcer medial -Ulcer Cleansing Rinsed/ Irrigated with Saline -Foul Odor after Cleansing No -Primary Dressing Applied Aquacel AG 4x4 -Other Dressing ADAPTIC -Primary Dressing Covered/Secured with Dry Gauze, Secured with Tape -Aquacel AG 4x4 0 Right -Tubular Bandage Single Layer -Size of Tubigrip Used Size E -Size E ($) 1 Left -Tubular Bandage Single Layer -Size of Tubigrip Used Size E -Size E ($) 1 Pain Scale: 0-10 Numeric Is Patient Pain Free? Yes Assessment/Plan Assessment/Plan (1) Pressure ulcer of left buttock, stage 2: CODE(S): L89.322 - Pressure ulcer of left buttock, stage 2 (2) Ulcer of left lower leg: CODE(S): L97.929 - Non-pressure chronic ulcer of unspecified part of left lower leg with unspecified severity (3) Edema of both lower legs: CODE(S): R60.0 - Localized edema (4) Diabetes mellitus type 2, uncontrolled, without complications: CODE(S): E11.65 - Type 2 diabetes mellitus with hyperglycemia (5) Paraplegia: CODE(S): G82.20 - Paraplegia, unspecified (6) Tobacco use disorder: CODE(S): F17.200 - Nicotine dependence, unspecified, uncomplicated (7) Chronic low back pain: CODE(S): M54.5 - Low back pain; G89.29 - Other chronic pain QUALIFIERS: Back pain laterality: unspecified Sciatica laterality: sciatica laterality unspecified (8) Muscle weakness: CODE(S): M62.81 - Muscle weakness (generalized) PLAN: Plan Patient was seen and evaluated in the wound center today. She has continued to sit/sleep in her wheelchair for long periods of time, but with her new wheelchair she is able to tilt the seat back to help off load. Patient encouraged to off load frequently and to avoid sitting in her wheel chair for longer than 2 hours at a time. Left ischial ulcer is healed today. Wound care - Left medial and left lateral leg ulcers place adaptic then moistened silver topped with gauze daily after washing with soap and water. Compression - Single layer tubigrip with CAROLE wrap bilateral legs. Stressed the importance of off loading and not sitting in her chair too long. Wound culture obtained 02/21/22 which was negative for bacterial growth. Wound culture obtained 10/18/21 which was positive for MRSE and Anaerobic cocci. She completed Doxycycline and Flagyl. Encourage a diet high in protein, low carbohydrates and increase Vitamin C for wound healing and control of her diabetes. Due to her history of diabetes and being a paraplegia, she is at increased risk for delayed wound healing, especially since she does not off load as she should. She has been referred to Palliative care for evaluation for her uncontrolled pain. She states that they said she does qualify for Palliative care, but she has not been seen by one of their providers. She was referred to Dr. Castellano and she saw him on 08/25/22. He would like further testing but she states that she went to [place] about her back and she may need further surgery on her back, so she is going to put her vascular testing on hold for now. Her venous study done 07/11/22 showed Portions of the deep veins of both calves were not visualized due to swelling and edema. Non-phasic venous flow in the left lower extremity deep venous system may be indicative of venous outflow obstruction or stenosis. Clinical correlation is advised. The Arterial study done 07/11/22 showed The right ankle brachial index by the posterior tibial artery is 1.01. The right ankle brachial index by the dorsalis pedis is 1.08. The right digital-brachial index is 0.57. The left ankle brachial index by the posterior tibial artery is 0.94. The left ankle brachial index by the dorsalis pedis is 0.95. The left digital-brachial index is 0.61. Follow up two weeks. She is to call or come in sooner or go to the ED if she develops any issues or concerns.
[2022-09-19 11:01] VITALS: BP 132/74; PULSE 91; RESP 16; TEMP 35.7; BMI 32.3
--- NOTE | 2022-09-19 14:32 | PCM.WC.PN ---
History of Present Illness Date of Service: 09/19/22 Chief Complaint: Sore on left buttocks History of Wound: Patient was referred by her EMBROIDERER HAND, Dr. Nevarez for pressure ulcers on her left medial buttocks/ischial area. Patient is wheelchair bound. She has a significant medical history of DM type 2, multiple back surgeries which eventually caused her become a paraplegic. Patient is a very poor historian and keeps falling asleep during her appointment. Patient is not sure how long she has had the pressure sore on her left medial buttocks, she is guessing a few months. She has been placing a cream on this area. She is unsure what cream it is. The ulcer cluster is painful to palpation. She states she sits in her wheelchair often more than 8 hours per day and will sometimes fall asleep in her chair. She does not have a special cushion for her wheelchair. She sleeps in a regular hospital bed, not a low air loss mattress. This week she has a new area on her left buttocks and a cluster on left coccyx cluster. These areas look like pressure. Wound care - Wash daily with soap and water. Place Fibrocal + and cover with gauze daily and as needed to the left ischial ulcer. Try to off load as much as possible and try to avoid sitting for long periods of time. Wound culture obtained on 02/21/22 had not growth. Wound culture obtained on 10/18/21 which were positive for MRSE and Anaerobic cocci. Completed Doxycycline and Flagyl. Progress of Wound: Left superior buttocks ulcer remains healed. Left medial leg ulcer and left lateral leg ulcer are stable. She continues to have +1 edema on the left lower leg and +2-+3 on the right lower leg. Objective Data Objective Data Vital Signs: Vital Signs Temp Pulse Resp BP O2 Del Method 96.3 F L 91 16 132/74 H Room Air 09/19/22 11:01 09/19/22 11:01 09/19/22 11:01 09/19/22 11:01 09/19/22 11:01 Oxygen Delivery Method Room Air Weight: 200 lb Body Mass Index (BMI) 32.3 Charges/Coding Procedures Integumentary 111xxx-113xx: 26760 Shila subq tissue 20 sq cm/< Add On Codes: 62751 Shila subq tissue add-on Debridement Note Debridement Note Wound debrided: medial leg ulcer and left lateral leg ulcer Laterality: Left Wound Grade/Stage: Stage II Type of Debridement: Excisional debridement Anesthesia Used: 5% Lidocaine Gel Depth: Down to and including healthy tissue and in the subcutaneous layer Percentage of wound debrided: 100 Instrument Used: 3mm curette Tissue Removed: Devitalized tissue and slough Severity: Limited To Skin Breakdown Amount of bleeding with debridement: Mild Bleeding Controlled with: Pressure and Compression and gauze Patient tolerated procedure: Patient tolerated procedure well Post-Debridement Measurements and Additional Note: Post-Debridement Measurements/Treatment - Nurse 1 - General Ulcer Assessment Start: 09/05/22 13:00 Freq: Status: Active Protocol: TAISHA Activity Type Activity Date Activity User E-sign Co-sign Detail Recorded Client Recorded Date Recorded By Document 09/05/22 13:01 [facility] [id number] 09/05/22 13:22 [facility] Document 09/19/22 11:01 [facility] [id number] 09/19/22 11:14 [facility] 09/05/22 09/19/22 13:01 11:01 - Today's Visit Information Type of service Nurse-only Follow-up Visit Visit (Physician/[employer]ES[employer]ER ) Arrival Mode Wheelchair Wheelchair Transfer Assistance Other None Transfer Assist (Other) 1 Accompanied by spike daughter Patient Identification Verified (Name & Yes Yes ) Patient Requires Transmission-Based No Precautions Height and Weight Body Mass Index (BMI) 32.3 32.3 BMI Classification Obese Obese Vital Signs Temperature (97.8 F-99.1 F) 96.8 F L 96.3 F L Temperature Source Temporal Temporal Pulse Rate (60-100) 76 91 Pulse Location Monitor Monitor Respiratory Rate (12-18) 16 16 Respiratory rate source Observation Observation Oxygen Delivery Method Room Air Room Air Blood Pressure (90/60-120/80) 137/74 H 132/74 H Blood Pressure Mean (mm Hg) 95 93 Source Monitor Monitor Position Sitting Sitting Blood Pressure Location Right Arm Left Arm History Since Last Visit- (Skip if this is Patient's initial visit) Have you changed medications since your No No last visit? Any new allergies or adverse reactions No No Had a fall/change in ADL's that may No No increase risk of falls Signs or symptoms of abuse and/or No No neglect since last visit Have you been in the hospital since your No No last visit? Has dressing in place as prescribed Yes Yes Has compression in place as prescribed N/A Yes Has offloadiing in place as prescribed N/A N/A Experienced any changes in pain level or No No management Left Footwear Slipper Slipper Right Footwear Slipper Slipper Pain Scale: 0-10 Numeric Is Patient Pain Free? Yes Yes WC - Nurse 1 - General Ulcer Measurement Start: 09/05/22 13:00 Freq: Status: Active Protocol: Activity Type Activity Date Activity User E-sign Co-sign Detail Recorded Client Recorded Date Recorded By Document 09/05/22 13:01 [facility] [id number] 09/05/22 13:22 BM Document 09/19/22 11:01 [facility] [id number] 09/19/22 11:14 BM 09/05/22 09/19/22 13:01 11:01 Wound Center Nurse 1 13-left lateral leg -Current Size (cm) - Length 0.1 -Current Size (cm) - Width 0.1 -Current Size (cm) - Depth 0.1 -Total Square Cm 0.01 #11 L lower Leg medial -Current Size (cm) - Length 1.7 -Current Size (cm) - Width 1.2 -Current Size (cm) - Depth 0.1 -Total Square Cm 2.04 -Date of Last Picture (Recall this 09/05/22 field) -Photo Taken Yes -Tunneling No -Undermining/Tunneling No -Circular Undermining No -Change in Wound Grade/Stage No -Exudate Amt Medium -Exudate Type Serosanguineous -Wound Margin Distinct, Outline Attached -Granulation Amt Large (67-100%) -Granulation Quality Darden -Slough/Fibrin No -Structure Exposed N/A -Texture (Vivi-wound Skin Appearance) No Abnormality, Assessed -Moisture (Vivi-wound Skin Appearance) No Abnormality, Assessed -Color (Vivi-wound Skin Appearance) No Abnormality, Assessed -Temperature (Vivi-wound Skin No Abnormality Appearance) (Pt Warm) -Tenderness on Palpation (Vivi-wound No Skin Appearance) -Ulcer Cleansing Rinsed/ Irrigated with Saline -Foul Odor after Cleansing No -Anesthetic Used 4% Lidocaine Solution 9-left ischium -Combined with other wound No -Current Size (cm) - Length 0.1 -Current Size (cm) - Width 0.1 -Current Size (cm) - Depth 0.1 -Total Square Cm 0.01 -Date of Last Picture (Recall this 09/05/22 field) -Photo Taken Yes -Tunneling No -Undermining/Tunneling No -Circular Undermining No -Change in Wound Grade/Stage No -Exudate Amt Small -Exudate Type Serosanguineous -Wound Margin Distinct, Outline Attached -Granulation Amt None Present (0 %) -Granulation Quality N/A -Slough/Fibrin No -Necrosis Amt None Present (0 %) -Structure Exposed N/A -Texture (Vivi-wound Skin Appearance) No Abnormality, Assessed -Moisture (Vivi-wound Skin Appearance) No Abnormality, Assessed -Color (Vivi-wound Skin Appearance) No Abnormality, Assessed -Temperature (Vivi-wound Skin No Abnormality Appearance) (Pt Warm) -Tenderness on Palpation (Vivi-wound No Skin Appearance) -Ulcer Cleansing Rinsed/ Irrigated with Saline -Foul Odor after Cleansing No -Anesthetic Used 4% Lidocaine Solution #12 right diego lower -Combined with other wound No No -Current Size (cm) - Length 2.5 1.2 -Current Size (cm) - Width 0.4 1.5 -Current Size (cm) - Depth 0.1 0.1 -Total Square Cm 1.00 1.80 -Photo Taken Yes Yes -Tunneling No No -Undermining/Tunneling No No -Circular Undermining No No -Change in Wound Grade/Stage No No -Exudate Amt Large Medium -Exudate Type Serosanguineous Serosanguineous -Wound Margin Distinct, Distinct, Outline Outline Attached Attached -Granulation Amt Small (1-33%) Large (67-100%) -Granulation Quality Darden Darden -Slough/Fibrin Yes No -Necrosis Amt Large (67-100%) None Present (0 %) -Necrotic Tissue Type Adherent Slough -Structure Exposed N/A N/A -Texture (Vivi-wound Skin Appearance) No Abnormality, No Abnormality, Assessed Assessed -Moisture (Vivi-wound Skin Appearance) No Abnormality, Assessed,Dry/ Assessed Scaly -Color (Vivi-wound Skin Appearance) No Abnormality, No Abnormality, Assessed Assessed -Temperature (Vivi-wound Skin No Abnormality No Abnormality Appearance) (Pt Warm) (Pt Warm) -Tenderness on Palpation (Vivi-wound No No Skin Appearance) -Ulcer Cleansing Rinsed/ Irrigated with Saline -Foul Odor after Cleansing No -Anesthetic Used 4% Lidocaine Solution 10-left leg ulcer medial -Combined with other wound No -Current Size (cm) - Length 6 5.5 -Current Size (cm) - Width 7.7 5 -Current Size (cm) - Depth 0.1 0.1 -Total Square Cm 46.2 27.5 -Date of Last Picture (Recall this 09/05/22 field) -Photo Taken Yes No -Epithelialization None Present Small 1-33% -Tunneling No No -Undermining/Tunneling No No -Circular Undermining No No -Change in Wound Grade/Stage No No -Exudate Amt Large None Present -Exudate Type Serosanguineous -Wound Margin Distinct, Distinct, Outline Outline Attached Attached -Granulation Amt Large (67-100%) None Present (0 %) -Granulation Quality Darden N/A -Slough/Fibrin No No -Necrosis Amt None Present (0 None Present (0 %) %) -Structure Exposed N/A N/A -Texture (Vivi-wound Skin Appearance) No Abnormality, No Abnormality, Assessed Assessed -Moisture (Vivi-wound Skin Appearance) No Abnormality, No Abnormality, Assessed, Assessed Weeping -Color (Vivi-wound Skin Appearance) No Abnormality, No Abnormality, Assessed Assessed -Temperature (Vivi-wound Skin No Abnormality No Abnormality Appearance) (Pt Warm) (Pt Warm) -Tenderness on Palpation (Vivi-wound No No Skin Appearance) -Ulcer Cleansing Rinsed/ Rinsed/ Irrigated with Irrigated with Saline Saline -Foul Odor after Cleansing No No -Anesthetic Used 4% Lidocaine Solution Right Calf (cm) 32.8 Right Ankle (cm) 23.6 Left Calf (cm) 40.5 Left Ankle (cm) 26.9 WC - Nurse 2 - General Ulcer CM Notes Start: 09/05/22 13:00 Freq: Status: Active Protocol: Activity Type Activity Date Activity User E-sign Co-sign Detail Recorded Client Recorded Date Recorded By Document 09/05/22 13:47 ELLIE [id number] 09/05/22 13:55 JF Edit Result 09/05/22 13:47 JF (1) [id number] 09/05/22 13:58 JF Document 09/19/22 11:48 [id number] 09/19/22 11:56 JF (1) 13-left lateral leg - Debridement - Subq, 1st 20sq cm Yes => No #11 L lower Leg medial - Post Debridement (cm) - Length => 1.5 - Post Debridement (cm) - Width => 1.7 - Post Debridement (cm) - Depth => 0.1 - Total Square (Post) (cm) => 2.55 - Area of Debridement (cm) - Length => 1.5 - Area of Debridement (cm) - Width => 1.7 - Total Square (Area) (cm) => 2.55 - Debridement - Subq, 1st 20sq cm No => Yes 09/05/22 09/19/22 13:47 11:48 Wound Center Nurse 2 13-left lateral leg -Time 13:52 -Correct Patient Yes No -Correct Side, Site, Position Yes No -Correct Procedure Yes No -Procedure Performed Yes No -Type of Procedure Debridement -Clinical Debridement Subcutaneous -Tissue Removed Subcutaneous -Post Debridement (cm) - Length 1.5 0 -Post Debridement (cm) - Width 1.7 0 -Post Debridement (cm) - Depth 0.1 0 -Total Square (Post) (cm) 2.55 0 -Area of Debridement (cm) - Length 1.5 0 -Area of Debridement (cm) - Width 1.7 0 -Total Square (Area) (cm) 2.55 0 -Tunneling No -Undermining/Tunneling No -Circular Undermining No -Wound/Ulcer Outcome Not Healed Healed- Epithelialized -Ulcer Cleansing Rinsed/ Irrigated with Saline -Foul Odor after Cleansing No -Bioengineered Tissue No -Bleeding Controlled with Pressure -Treatment Response Procedure Tolerated Well -Offloading No -Debridement - Subq, 1st 20sq cm No #11 L lower Leg medial -Time 13:49 -Correct Patient Yes -Correct Side, Site, Position Yes -Correct Procedure Yes -Procedure Performed Yes -Type of Procedure Debridement -Clinical Debridement Subcutaneous -Tissue Removed Subcutaneous -Post Debridement (cm) - Length 1.5 -Post Debridement (cm) - Width 1.7 -Post Debridement (cm) - Depth 0.1 -Total Square (Post) (cm) 2.55 -Area of Debridement (cm) - Length 1.5 -Area of Debridement (cm) - Width 1.7 -Total Square (Area) (cm) 2.55 -Tunneling No -Undermining/Tunneling No -Circular Undermining No -Wound/Ulcer Outcome Not Healed -Ulcer Cleansing Rinsed/ Irrigated with Saline -Foul Odor after Cleansing No -Bioengineered Tissue No -Bleeding Controlled with Pressure -Treatment Response Procedure Tolerated Well -Offloading No -Debridement - Subq, 1st 20sq cm Yes #12 right diego lower -Time 13:47 11:50 -Correct Patient Yes Yes -Correct Side, Site, Position Yes Yes -Correct Procedure Yes Yes -Procedure Performed Yes Yes -Type of Procedure Debridement Debridement -Clinical Debridement Subcutaneous Subcutaneous -Tissue Removed Subcutaneous Subcutaneous -Post Debridement (cm) - Length 2.3 1.8 -Post Debridement (cm) - Width 4 1.8 -Post Debridement (cm) - Depth 0.1 0.1 -Total Square (Post) (cm) 9.2 3.24 -Area of Debridement (cm) - Length 2.3 1.8 -Area of Debridement (cm) - Width 4.0 1.8 -Total Square (Area) (cm) 9.20 3.24 -Tunneling No No -Undermining/Tunneling No No -Circular Undermining No No -Wound/Ulcer Outcome Not Healed Not Healed -Ulcer Cleansing Rinsed/ Rinsed/ Irrigated with Irrigated with Saline Saline -Foul Odor after Cleansing No No -Bioengineered Tissue No No -Bleeding Controlled with Pressure Pressure -Treatment Response Procedure Procedure Tolerated Well Tolerated Well -Offloading No No -Debridement - Subq, 1st 20sq cm No No 10-left leg ulcer medial -Time 13:51 11:55 -Correct Patient Yes Yes -Correct Side, Site, Position Yes Yes -Correct Procedure Yes Yes -Procedure Performed Yes Yes -Type of Procedure Debridement Debridement -Clinical Debridement Subcutaneous Subcutaneous -Tissue Removed Subcutaneous Subcutaneous -Post Debridement (cm) - Length 1.8 7.7 -Post Debridement (cm) - Width 4 7 -Post Debridement (cm) - Depth 0.1 0.1 -Total Square (Post) (cm) 7.2 53.9 -Area of Debridement (cm) - Length 1.8 7.7 -Area of Debridement (cm) - Width 4 7 -Total Square (Area) (cm) 7.2 53.9 -Tunneling No No -Undermining/Tunneling No No -Circular Undermining No No -Wound/Ulcer Outcome Not Healed Not Healed -Ulcer Cleansing Rinsed/ Rinsed/ Irrigated with Irrigated with Saline Saline -Foul Odor after Cleansing No No -Bioengineered Tissue No No -Bleeding Controlled with Pressure Pressure -Treatment Response Procedure Procedure Tolerated Well Tolerated Well -Offloading No No -Debridement - Subq, 1st 20sq cm No Yes -Debridement, SubQ, ea addt'l 20sq cm 2 or part thereof Pain Scale: 0-10 Numeric Is Patient Pain Free? Yes Yes WC - Nurse 3 - General Ulcer D/C NN Start: 09/05/22 13:00 Freq: Status: Active Protocol: Activity Type Activity Date Activity User E-sign Co-sign Detail Recorded Client Recorded Date Recorded By Document 09/05/22 14:05 ML [id number] 09/05/22 14:09 ML Document 09/19/22 12:02 DL [id number] 09/19/22 12:04 DL 09/05/22 09/19/22 14:05 12:02 Wound Care Center Nurse 3 13-left lateral leg -Ulcer Cleansing Rinsed/ Irrigated with Saline -Foul Odor after Cleansing No -Primary Dressing Applied Aquacel AG 4x4 -Other Dressing ADAPTIC -Primary Dressing Covered/Secured with Dry Gauze, Secured with Tape -Aquacel AG 4x4 1 #12 right diego lower -Ulcer Cleansing Rinsed/ Rinsed/ Irrigated with Irrigated with Saline Saline -Foul Odor after Cleansing No No -Primary Dressing Applied Aquacel AG 4x4 Aquacel AG 4x4, NonAdherent Contact Layer -Other Dressing ADAPTIC -Primary Dressing Covered/Secured with Dry Gauze, Dry Gauze & Secured with Roll Gauze, Tape Secured with Tape -Aquacel AG 4x4 0 1 10-left leg ulcer medial -Ulcer Cleansing Rinsed/ Rinsed/ Irrigated with Irrigated with Saline Saline -Foul Odor after Cleansing No No -Primary Dressing Applied Aquacel AG 4x4 NonAdherent Contact Layer -Other Dressing ADAPTIC Aqaucel AG -Primary Dressing Covered/Secured with Dry Gauze, Dry Gauze & Secured with Roll Gauze, Tape Secured with Tape -Aquacel AG 4x4 0 Right -Tubular Bandage Single Layer Double Layer -Size of Tubigrip Used Size E Size E -Size E ($) 1 2 Left -Tubular Bandage Single Layer Double Layer -Size of Tubigrip Used Size E Size E -Size E ($) 1 2 Treatment Response Procedure Tolerated Well Pain Scale: 0-10 Numeric Is Patient Pain Free? Yes Yes WC - Visit Discharge Discharge Condition Stable Ambulatory Status Wheelchair Transportation Private Auto Facility Type Home Health Orders Sent Yes Assessment/Plan Assessment/Plan (1) Ulcer of left lower leg: CODE(S): L97.929 - Non-pressure chronic ulcer of unspecified part of left lower leg with unspecified severity (2) Edema of both lower legs: CODE(S): R60.0 - Localized edema (3) Diabetes mellitus type 2, uncontrolled, without complications: CODE(S): E11.65 - Type 2 diabetes mellitus with hyperglycemia (4) Paraplegia: CODE(S): G82.20 - Paraplegia, unspecified (5) Tobacco use disorder: CODE(S): F17.200 - Nicotine dependence, unspecified, uncomplicated (6) Chronic low back pain: CODE(S): M54.5 - Low back pain; G89.29 - Other chronic pain QUALIFIERS: Back pain laterality: unspecified Sciatica laterality: sciatica laterality unspecified (7) Muscle weakness: CODE(S): M62.81 - Muscle weakness (generalized) PLAN: Plan Patient was seen and evaluated in the wound center today. Left ischial ulcer remains healed. She is scheduled to go to [facility] for further evaluation on her back. She states that the aurelia in her back has snapped in half and it needs removed. She is going to be transported there on Monday for further testing and possible surgery. Wound care - Left medial and left lateral leg ulcers place adaptic then moistened silver topped with gauze daily after washing with soap and water. Compression - Single layer tubigrip with CAROLE wrap bilateral legs. She will only tolerate a single layer tubigrip due to nerve pain she experiences with more compression. Stressed the importance of off loading and not sitting in her chair too long. She does not want her ulcer to reopen. Wound culture obtained 02/21/22 which was negative for bacterial growth. Wound culture obtained 10/18/21 which was positive for MRSE and Anaerobic cocci. She completed Doxycycline and Flagyl. Encourage a diet high in protein, low carbohydrates and increase Vitamin C for wound healing and control of her diabetes. Due to her history of diabetes and being a paraplegia, she is at increased risk for delayed wound healing, especially since she does not off load as she should. She was referred to Dr. Castellano and she saw him on 08/25/22. He would like further testing but she states that she went to [place] about her back and she may need further surgery on her back, so she is going to put her vascular testing on hold for now. Her venous study done 07/11/22 showed Portions of the deep veins of both calves were not visualized due to swelling and edema. Non-phasic venous flow in the left lower extremity deep venous system may be indicative of venous outflow obstruction or stenosis. Clinical correlation is advised. The Arterial study done 07/11/22 showed The right ankle brachial index by the posterior tibial artery is 1.01. The right ankle brachial index by the dorsalis pedis is 1.08. The right digital-brachial index is 0.57. The left ankle brachial index by the posterior tibial artery is 0.94. The left ankle brachial index by the dorsalis pedis is 0.95. The left digital-brachial index is 0.61. Follow up after she has her back surgery IF her leg ulcers are not healed.
== END 2022-09-20 10:59 | disposition home or self-care (01) ==
LOC: WC 11:00
PROVIDERS: PCP Internal Medicine; Visit Provider Nurse Practitioner Family
DX: E11.622 Type 2 diabetes mellitus with other skin ulcer (principal); G82.20 Paraplegia, unspecified; L89.322 Pressure ulcer of left buttock, stage 2; L97.821 Non-pressure chronic ulcer of other part of left lower leg limited to breakdown of skin; R60.0 Localized edema; Z99.3 Dependence on wheelchair
CPT/HCPCS: 11042; 11045

== ENCOUNTER 2022-11-04 16:08 | Inpatient (IN) | payer MEDICARE, MEDICAID, SELFPAY ==
[2022-11-04 16:09] VITALS: BP 102/69; PULSE 102; RESP 16; TEMP 36.5; O2SAT 100; BMI 25.7
--- NOTE | 2022-11-04 16:41 | CT_ITS ---
EXAMINATION : Head CT w/out contrast HISTORY : seizure, new onset COMPARISON : None. TECHNIQUE : Multiple contiguous axial images were obtained from the skull base to the vertex without intravenous contrast. A radiation dose optimization technique was used for this scan. FINDINGS : The ventricles and sulci are normal in size. There is no evidence for acute intracranial hemorrhage, mass effect, or midline shift. There is no extra-axial fluid collection. There is normal tran-white differentiation, without CT evidence of acute ischemia or infarct. The skull base and calvarium are unremarkable. The orbits are unremarkable. The paranasal sinuses are clear. The mastoid air cells are well-aerated. The soft tissues are unremarkable. CT/Brain/Head without Contrast IMPRESSION: No acute intracranial abnormality. Electronically Signed: Jam Rios MD at 17:19 EDT ,
--- NOTE | 2022-11-04 16:41 | EKG12_ITS ---
Test Reason : SEIZURE Blood Pressure : / mmHG Vent. Rate : 100 BPM Atrial Rate : 100 BPM P-R Int : 120 ms QRS Dur : 082 ms QT Int : 376 ms P-R-T Axes : 037 056 036 degrees QTc Int : 485 ms Normal sinus rhythm Normal ECG Confirmed by KRISS CARDENAS ([id number]), film editor supervisor WILLIE MAY ([id number]) on 11/08/2022 7:50:26 AM Referred By: Confirmed By:KRISS CARDENAS
--- NOTE | 2022-11-04 16:59 | EDS_ITS ---
HPI History of Present Illness Chief Complaint: Seizure Informant: patient and family Narrative Narrative: Patient is a 62-year-old female with extensive medical history including paraplegia as a complication to a back surgery. She is presenting with concern of new onset seizure. Patient had a recent back surgery through [facility] and just been discharged on Monday from rehab and has home health. Yesterday the home health aide noticed that she had about 22nd episode where she was just looking often staring but no tremor or seizure-like activity was reported. Today the patient's daughter was at her house and was starting to make her food as she states she was hungry. She told her daughter that she felt like she was going to pass out and requested chocolate milk. Her daughter went to get it when she came back mother was staring off. She tried to get her attention for about 15 seconds and then she pulled her hands and towards her chest and started to almost shiver/shake slightly however she did not have any repetitive arm movements. She not make any noises. The whole episode lasted about 45 seconds. The patient does not remember the event. She states she did feel very weak for couple minutes afterwards but is since returned to her baseline. Patient not had any reported falls. Does not have a prior history of seizures. Notes that she had not eaten anything that day. Has no other complaints at this time. Patient was seated in her wheelchair throughout this episode. She never slumped over. Did not fall out of the wheelchair or sustain any injuries from it. 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 Muscle weakness Neuromuscular scoliosis Other intervertebral disc degeneration, lumbar region Paraplegia Primary generalized (osteo)arthritis Spinal stenosis, lumbar region without neurogenic claudication Home Medications [id number]-[id number] tablet (Cerovite Senior) 1 tab PO DAILY supplement 02/26/18 [History Last Taken 09/23/20] atorvastatin 20 mg tablet 20 mg PO QHS cholesterol 08/08/19 [History Last Taken 09/23/20] levothyroxine 150 mcg tablet 150 mcg PO DAILY thyroid 09/17/20 [History Last Taken 09/24/20] pantoprazole 40 mg tablet,delayed release 40 mg PO BID PRN stomach 09/17/20 [History Last Taken 09/24/20] acetaminophen 500 mg tablet 500 mg PO Q6H PRN Pain 1-10 Or Fever 10/08/20 [His tory Last Taken Unknown] albuterol sulfate 90 mcg/actuation aerosol inhaler 2 puff inhalation Q4H PRN PRN Sob &/Or Wheezing 10/08/20 [History Last Taken Unknown] betamethasone valerate 0.1 % topical cream 1 applic topical BID PRN skin irritation #15 grams 01/15/21 [Rx Last Taken Unknown] cetirizine 10 mg tablet 10 mg PO DAILY #30 tabs 01/15/21 [Rx Last Taken Unknown] potassium chloride 10 mEq tablet,extended release 10 meq PO DAILY #30 tabs 01/15/21 [Rx Last Taken Unknown] hydrocolloid dressing 4 X 4 (DuoDERM CGF Adhesive Border Dressing) #5 ea 09/07/21 [Rx Last Taken Unknown] biotin 1 mg tablet 1 mg PO DAILY SUPPLEMENT 05/17/22 [History Last Taken Unknown] calcium citrate 250 mg PO DAILY SUPPLEMENT 05/17/22 [History Last Taken Unknown] cholecalciferol (vitamin D3) 25 mcg (1,000 unit) capsule 25 mcg PO DAILY SUPPLEMENT 05/17/22 [History Last Taken Unknown] cyanocobalamin (vitamin B-12) 1,000 mcg tablet 1,000 mcg PO DAILY SUPPLEMENT 05/17/22 [History Last Taken Unknown] ferrous sulfate 325 mg (65 mg iron) tablet 325 mg PO DAILY SUPPLEMENT 05/17/22 [History Last Taken Unknown] fluticasone propionate 50 mcg/actuation nasal spray,suspension 2 spray intranasal DAILY ALLERGIES 05/17/22 [History Last Taken Unknown] metolazone 2.5 mg tablet 2.5 mg PO DAILY PRN swelling 05/17/22 [History Last Taken Unknown] mupirocin 2 % topical ointment 1 applic topical DAILY PRN Wound Care 05/17/22 [History Last Taken Unknown] nystatin 100,000 unit/gram topical cream 1 applic topical BID RASH 05/17/22 [History Last Taken Unknown] gabapentin 300 mg capsule 300 mg PO BID 30 days #60 caps 05/19/22 [Rx Last Taken Unknown] dextran 70-hypromellose 0.1 %-0.3 % eye drops (Artificial Tears (dextran 70- hypromellose)) 1 drp ophthalmic (eye) TID 05/25/22 [History Last Taken Unknown] ipratropium 20 mcg-albuterol 100 mcg/actuation mist for inhalation (Combivent Respimat) 1 puff inhalation Q6H PRN 05/25/22 [History Last Taken Unknown] nystatin 100,000 unit/gram topical powder 1 applic topical BID 10 days #30 grams 07/08/22 [Rx Last Taken Unknown] sennosides 8.6 mg tablet (Senna Lax) 8.6 mg PO .QOD STOOL 08/25/22 [History Last Taken Unknown] topiramate 25 mg tablet 25 mg PO ONCE pain 08/25/22 [History Last Taken Unknown] ammonium lactate 5 % lotion (Lac-Hydrin Five) 1 applic topical BID 30 days #226 grams 09/05/22 [Rx Last Taken Unknown] mirtazapine 15 mg tablet See Rx Instructions .Route .COMPLEX #30 tabs 09/19/22 [Rx Last Taken Unknown] lidocaine 5 % topical ointment 1 applic topical TID PRN pain #30 grams 10/10/22 [Rx Last Taken Unknown] valacyclovir 500 mg tablet (Valtrex) 500 mg PO DAILY Check with primary doctor #30 tabs 10/10/22 [Rx Last Taken Unknown] Allergy/AdvReac Type Severity Reaction Status Date / Time NSAIDS (Non-Steroidal Allergy GASTRIC Verified 11/04/22 16:12 Anti-Inflamma BYPASS trazodone AdvReac Other Verified 11/04/22 16:12 Family History Father Diabetes Hypertension Myocardial infarction Alcoholism Brother Myocardial infarction Alcoholism Mother CVA (cerebral vascular accident) Surgical History H/O dilation and curettage H/O gastric bypass History of bilateral salpingo-oophorectomy History of cholecystectomy Hydradenitis S/P arthroscopic knee surgery S/P lumbar spine operation s/p nerve spine surgery s/p upper back surgery skin graft Social History Smoking Status: Current every day smoker tobacco type: cigarettes alcohol intake: never substance use type: does not use caffeine: Yes what type of physical activity do you participate in: none seatbelt use: always do you feel safe at home: Yes additional social history: ROS ROS ED Constitutional Constitutional ED: Denies chills or fever(s) Eyes Eyes: Denies change in vision Cardiovascular Cardiovascular: Denies chest pain Respiratory/Chest Respiratory/Chest: Denies cough Gastrointestinal Gastrointestinal: Denies nausea or vomiting Musculoskeletal Musculoskeletal: Denies arthralgias or myalgias Integumentary Denies rash Neurologic Neurologic: Reports other Details: seizure like activity Hematologic/Lymphatic Hematologic/Lymphatic: Denies easy bleeding or easy bruising EXAM Physical Exam Const Vital Signs: 11/04/22 16:09 11/04/22 18:08 Temperature 97.7 F L Temperature Source Oral Pulse Rate 102 H 89 Respiratory Rate 16 16 Blood Pressure 102/69 93/61 Blood Pressure Mean 80 71 Pulse Ox 100 99 Oxygen Delivery Method Room Air Room Air Positive well nourished and well developed General Appearance ED: well developed and NAD HEENT Reports moist mucous membranes Negative for trauma Eyes PERRL and EOMs intact bilaterally Chest Wall inspection of chest normal Resp normal respiratory effort and clear to auscultation bilaterally Cardio regular rate and regular rhythm GI normal to inspection, nondistended, normoactive bowel sounds and non-tender Extremity Extremity Narrative: Decreased movement of the lower extremities, left leg worse than right (history of paraplegia) Neuro oriented x3 Sensorium / Orientation: alert Motor Exam: general weakness Psych mental status grossly normal Skin no rashes or lesions noted and no wounds MDM MDM MDM Narrative Medical decision making narrative: Patient is evaluated for concern of seizure activity. Her reported activity sounds atypical for seizures and differential includes cardiac arrhythmia as well as syncope in addition to seizures. Patient is placed in seizure precautions but has no focal neurologic deficits. She is a paraplegic. She did not have any fall or injury. CT of the brain does not show any acute process. Patient is mildly anemic with a hemoglobin 11.8 but this appears stable. She does have significant hypokalemia with a potassium of 2.7 as well as hypomagnesia with a magnesium of 1.0. This raises the concern for arrhythmia/electrolyte abnormalities more. Patient does tell me that she has had some palpitations over the past few days. Patient initially is hesitant to be admitted however she is also getting more anxious and is having more pain and she is due for pain meds. Is given oral Oxycodone 5 mg IR as well as IV Ativan and she now seems more comfortable. Lab Data Attestation: I reviewed the patient's lab results. Labs: Laboratory Results - last 24 hr 11/04/22 11/04/22 16:56 16:56 WBC 7.2 RBC 3.82 L Hgb 11.8 L Hct 34.9 L MCV 91.4 MCH 30.9 MCHC 33.8 RDW Std Deviation 46.4 H RDW Coeff of Jarrod 13.8 Plt Count 204 MPV 10.1 Immature Gran % (Auto) 0.600 Neut % (Auto) 72.9 H Lymph % (Auto) 18.9 L [place] % (Auto) 5.7 Eos % (Auto) 1.5 Baso % (Auto) 0.4 Absolute Neuts (auto) 5.2 Absolute Lymphs (auto) 1.35 Nucleated RBC % 0 Sodium 137 Potassium 2.7 L* Chloride 101 Carbon Dioxide 30.0 Anion Gap 6 BUN 42 H Creatinine 1.01 Estim Creat Clear Calc 50.51 Est GFR (MDRD) Af Amer 72 Est GFR (MDRD) Non-Af 59 L BUN/Creatinine Ratio 41.6 H Glucose 212 H Calcium 8.6 Magnesium 1.0 L Total Bilirubin 0.30 AST 13 L ALT 18 Alkaline Phosphatase 138 H Total Protein 5.8 L Albumin 2.4 L Globulin 3.4 Albumin/Globulin Ratio 0.7 L Radiography Diagnostic Testing: Clinical Impression(s) from Imaging Studies Brain CT 11/04/22 16:41 IMPRESSION: No acute intracranial abnormality. Electronically Signed: Jam Rios MD at 17:19 EDT , Chest X-Ray 11/04/22 17:05 IMPRESSION: No acute radiographic abnormalities. Electronically Signed: Jam Rios MD at 17:24 EDT , Rhythm Strip Rhythm Strip: Sinus Rhythm Rate: 100 Ectopy: None EKG Initial EKG: Attestation: I personally reviewed and interpreted this EKG as follows: Interpretation: Sinus Rhythm Comments: Normal sinus rhythm at a rate of 100 bpm Normal axis Normal intervals Normal ST segments Compared to prior EKG on 05/17/2022, no significant change Discharge Plan Dx/Rx/DC Orders Clinical Impression: Witnessed seizure-like activity, Hypomagnesemia, Hypokalemia Disposition Disposition: Acute Care Hospital [facility] Discharge Date/Time: 11/04/22 20:16
--- NOTE | 2022-11-04 17:05 | RAD_ITS ---
INDICATION: new onset seizure EXAMINATION/TECHNIQUE: X-RAY - XR Chest 1 View COMPARISON: None. FINDINGS: The lungs are clear. The cardiomediastinal silhouette is unremarkable. No pleural effusion or pneumothorax. No acute osseous abnormalities. Ga rods in place. RAD/Chest 1 View (Portable) IMPRESSION: No acute radiographic abnormalities. Electronically Signed: Jam Rios MD at 17:24 EDT ,
[2022-11-04 17:08] LABS: Absolute Lymphocyte Count 1.35 X10^3/uL (0.83-4.51); Absolute Neutrophil Count 5.2 X10^3/uL (2.0-7.7); Basophil# 0.03 X10^3/uL; Basophil% 0.4 % (0-1); Eosinophil# 0.11 X10^3/uL; Eosinophils% 1.5 % (0-5); Hematocrit 34.9 % (37-47); Hemoglobin 11.8 g/dL (12.0-15.0); Lymphocyte # 1.35 X10^3/ul (0.83-4.51); Lymphocyte % 18.9 % (19-41); Mean Corp Hgb Conc 33.8 g/dL (32-36); Mean Corpuscular Hgb 30.9 pg (27.0-32.0); Mean Corpuscular Volume 91.4 fL (81-99); Mean Platelet Vol. 10.1 fl (6.2-12.0); Monocyte# 0.41 X10^3/uL; Monocyte% 5.7 % (0-10); NRBC Flagged by Analyzer 0 % (0-5); Neutrophil # 5.21 X10^3/uL (2.7-7.7); Neutrophil % 72.9 % (47-70); Platelet Count 204 K/mm3 (150-450); RBC Distribution Width CV 13.8 % (11.6-14.6); RBC Distribution Width SD 46.4 fl (35.1-43.9); Red Blood Count 3.82 M/mm3 (4.2-5.4); White Blood Count 7.2 K/mm3 (4.4-11.0)
[2022-11-04 17:28] LABS: ALB/GLOB Ratio 0.7 RATIO (0.9-2.4); AST(SGOT) 13 U/L (15-37); Alanine Aminotransfer ALT/SGPT 18 U/L (13-56); Albumin, Serum 2.4 g/dL (3.2-5.0); Alkaline Phosphatase 138 U/L (45-117); Anion Gap 6 (5-15); BUN 42 mg/dL (7-18); BUN/Creat Ratio 41.6 RATIO (10-20); Calcium,Total 8.6 mg/dL (8.5-10.1); Chloride 101 mmol/L (98-107); Creatinine, Serum 1.01 mg/dL (0.55-1.02); EST Glomerular Filtration Rate 59 mL/min (>60); Est Glom Filt Rate - Afr Amer 72 mL/min (>60); Estimated Creatinine Clearance 50.51 ml/min; Globulin 3.4 g/dL (2.2-4.2); Glucose 212 mg/dL (74-106); Potassium 2.7 mmol/L (3.5-5.1); Protein, Total 5.8 g/dL (6.4-8.2); Sodium Level 137 mmol/L (136-145)
[2022-11-04] MEDS: Potassium Chloride 10mEq/100mL 10 MEQ/100 ML IV.SOLN. 100 MEQ IV BOLUS ×2 (18:03→20:12)
[2022-11-04 18:08] VITALS: BP 93/61; PULSE 89; RESP 16; O2SAT 99
[2022-11-04] MEDS: LORazepam 2 MG/ML Syringe 0.5 MG IV (18:36)
[2022-11-04] MEDS: oxyCODONE 5 MG Tablet PO (18:36)
[2022-11-04] MEDS: Potassium Chloride Oral Tablet 20 MEQ 40 MEQ PO (18:46)
[2022-11-04 19:03] VITALS: BP 93/61; PULSE 89; RESP 16; TEMP 36.5; O2SAT 99
--- NOTE | 2022-11-04 20:43 | PCM.PN.HOSP ---
Subjective Subjective Patient was seen and examined today, she came into the emergency room at [facility] after being brought in by her daughter with concerns of a possible seizure at home. Patient had recently been released from the skilled care facility a few days ago and has home health. The home health aide yesterday noticed that the patient had a short episode of staring off but no seizure-like activity was reported. Today the patient requested food at home, when the daughter went to get it and came back, she noticed the patient was staring off and was unresponsive. This only lasted for a brief period of time (less than a minute) and there was also a period where she pulled her hands up toward her chest area and started to shake slightly. Patient does not remember the event, she states that this examiner she felt lightheaded today right before the episode happened. Patient has no history of seizures. Patient has a history of failed back surgery with resultant paraplegia, she does had a back surgery several weeks ago at [facility]. Labs that were performed in the emergency room showed a normal white blood cell count, hemoglobin was 11.8, patient's chemistry was remarkable for potassium 2.7, BUN was elevated at 42 and glucose was 212. Patient's brain CT showed no acute intracranial abnormality, chest x-ray showed no acute radiographic abnormalities. Patient was admitted to PCU, Objective Data Objective Data Vital Signs: Vital Signs Temp Pulse Resp BP Pulse Ox O2 Del Method 97.7 F L 89 16 93/61 99 Room Air 11/04/22 19:03 11/04/22 19:03 11/04/22 19:03 11/04/22 19:03 11/04/22 19:03 11/04/22 19:03 Oxygen Delivery Method Room Air Weight: 67.903 kg Body Mass Index (BMI) 25.7 Intake & Output: Intake and Output for Last 24 Hours 11/02/22 11/03/22 11/04/22 23:59 23:59 23:59 Intake Total Balance Lab / Micro Data Result Diagrams: 11/04/22 16:56 11/04/22 16:56 Labs: Laboratory Results - last 24 hr 11/04/22 16:56: WBC 7.2, RBC 3.82 L, Hgb 11.8 L, Hct 34.9 L, MCV 91.4, MCH 30.9, MCHC 33.8, RDW Std Deviation 46.4 H, RDW Coeff of Jarrod 13.8, Plt Count 204, MPV 10.1, Immature Gran % (Auto) 0.600, Neut % (Auto) 72.9 H, Lymph % (Auto) 18.9 L, [place] % (Auto) 5.7, Eos % (Auto) 1.5, Baso % (Auto) 0.4, Absolute Neuts (auto) 5.2, Absolute Lymphs (auto) 1.35, Nucleated RBC % 0 11/04/22 16:56: Sodium 137, Potassium 2.7 L*, Chloride 101, Carbon Dioxide 30.0, Anion Gap 6, BUN 42 H, Creatinine 1.01, Estim Creat Clear Calc 50.51, Est GFR (MDRD) Af Amer 72, Est GFR (MDRD) Non-Af 59 L, BUN/Creatinine Ratio 41.6 H, Glucose 212 H, Calcium 8.6, Magnesium 1.0 L, Total Bilirubin 0.30, AST 13 L, ALT 18, Alkaline Phosphatase 138 H, Total Protein 5.8 L, Albumin 2.4 L, Globulin 3.4, Albumin/Globulin Ratio 0.7 L Radiography Diagnostic Testing: Radiology Impression Brain CT 11/04/22 16:41 IMPRESSION: No acute intracranial abnormality. Electronically Signed: Jam Rios MD at 17:19 EDT , Chest X-Ray 11/04/22 17:05 IMPRESSION: No acute radiographic abnormalities. Electronically Signed: Jam Rios MD at 17:24 EDT ,
[2022-11-04 20:48] VITALS: BP 116/68; PULSE 91; RESP 18; TEMP 36.5; O2SAT 100
--- NOTE | 2022-11-04 20:50 | NURSING ---
pt requested to be alone at this time. This RN inform this pt that admission needs to be done tonight and that this RN will be back when pt is ready, pt agrees.
--- NOTE | 2022-11-04 20:53 | HP.PCM.HOS_ITS ---
HPI - General General Date of Admission: 11/04/22 Date of Service: 11/04/22 Chief Complaint: Possible seizure activity HPI Narrative Patient was seen and examined today, she came into the emergency room at [facility] after being brought in by her daughter with concerns of a possible seizure at home. Patient had recently been released from the skilled care facility a few days ago and has home health. The home health aide yesterday noticed that the patient had a short episode of staring off but no seizure-like activity was reported. Today the patient requested food at home, when the daughter went to get it and came back, she noticed the patient was staring off and was unresponsive. This only lasted for a brief period of time (less than a minute) and there was also a period where she pulled her hands up toward her chest area and started to shake slightly. Patient does not remember the event, she states that this examiner she felt lightheaded today right before the episode happened. Patient has no history of seizures. Patient has a history of failed back surgery with resultant paraplegia, she does had a back surgery several weeks ago at [facility]. Labs that were performed in the emergency room showed a normal white blood cell count, hemoglobin was 11.8, patient's chemistry was remarkable for potassium 2.7, and magnesium of 1, BUN was elevated at 42 and glucose was 212. Patient's brain CT showed no acute intracranial abnormality, chest x-ray showed no acute radiographic abnormalities. Patient was admitted to PCU, she will receive IV potassium and magnesium replacement as well as oral potassium replacement, patient's labs will be monitored, she will have an EEG performed. Patient will be monitored on telemetry. 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 Muscle weakness Neuromuscular scoliosis Other intervertebral disc degeneration, lumbar region Paraplegia Primary generalized (osteo)arthritis Spinal stenosis, lumbar region without neurogenic claudication Home Medications [id number] tablet (Cerovite Senior) 1 tab PO DAILY supplement 02/26/18 [History Last Taken 09/23/20] atorvastatin 20 mg tablet 20 mg PO QHS cholesterol 08/08/19 [History Last Taken 09/23/20] levothyroxine 150 mcg tablet 150 mcg PO DAILY thyroid 09/17/20 [History Last Taken 09/24/20] pantoprazole 40 mg tablet,delayed release 40 mg PO BID PRN stomach 09/17/20 [History Last Taken 09/24/20] acetaminophen 500 mg tablet 500 mg PO Q6H PRN Pain 1-10 Or Fever 10/08/20 [History Last Taken Unknown] albuterol sulfate 90 mcg/actuation aerosol inhaler 2 puff inhalation Q4H PRN PRN Sob &/Or Wheezing 10/08/20 [History Last Taken Unknown] betamethasone valerate 0.1 % topical cream 1 applic topical BID PRN skin irri tation #15 grams 01/15/21 [Rx Last Taken Unknown] cetirizine 10 mg tablet 10 mg PO DAILY #30 tabs 01/15/21 [Rx Last Taken Unknown] hydrocolloid dressing 4 X 4 (DuoDERM CGF Adhesive Border Dressing) #5 ea 09/07/21 [Rx Last Taken Unknown] biotin 1 mg tablet 1 mg PO DAILY SUPPLEMENT 05/17/22 [History Last Taken Unknown] calcium citrate 250 mg PO DAILY SUPPLEMENT 05/17/22 [History Last Taken Unknown] cholecalciferol (vitamin D3) 25 mcg (1,000 unit) capsule 25 mcg PO DAILY SUPPLEMENT 05/17/22 [History Last Taken Unknown] cyanocobalamin (vitamin B-12) 1,000 mcg tablet 1,000 mcg PO DAILY SUPPLEMENT 05/17/22 [History Last Taken Unknown] ferrous sulfate 325 mg (65 mg iron) tablet 325 mg PO DAILY SUPPLEMENT 05/17/22 [History Last Taken Unknown] fluticasone propionate 50 mcg/actuation nasal spray,suspension 2 spray intranasal DAILY ALLERGIES 05/17/22 [History Last Taken Unknown] mupirocin 2 % topical ointment 1 applic topical DAILY PRN Wound Care 05/17/22 [History Last Taken Unknown] nystatin 100,000 unit/gram topical cream 1 applic topical BID RASH 05/17/22 [History Last Taken Unknown] gabapentin 300 mg capsule 300 mg PO BID 30 days #60 caps 05/19/22 [Rx Last Taken Unknown] dextran 70-hypromellose 0.1 %-0.3 % eye drops (Artificial Tears (dextran 70- hypromellose)) 1 drp ophthalmic (eye) TID 05/25/22 [History Last Taken Unknown] ipratropium 20 mcg-albuterol 100 mcg/actuation mist for inhalation (Combivent Respimat) 1 puff inhalation Q6H PRN 05/25/22 [History Last Taken Unknown] nystatin 100,000 unit/gram topical powder 1 applic topical BID 10 days #30 grams 07/08/22 [Rx Last Taken Unknown] sennosides 8.6 mg tablet (Senna Lax) 8.6 mg PO .QOD STOOL 08/25/22 [History Last Taken Unknown] topiramate 25 mg tablet 25 mg PO ONCE pain 08/25/22 [History Last Taken Unknown] ammonium lactate 5 % lotion (Lac-Hydrin Five) 1 applic topical BID 30 days #226 grams 09/05/22 [Rx Last Taken Unknown] mirtazapine 15 mg tablet See Rx Instructions .Route .COMPLEX #30 tabs 09/19/22 [Rx Last Taken Unknown] lidocaine 5 % topical ointment 1 applic topical TID PRN pain #30 grams 10/10/22 [Rx Last Taken Unknown] valacyclovir 500 mg tablet (Valtrex) 500 mg PO DAILY Check with primary doctor #30 tabs 10/10/22 [Rx Last Taken Unknown] Allergy/AdvReac Type Severity Reaction Status Date / Time NSAIDS (Non-Steroidal Allergy GASTRIC Verified 11/04/22 16:12 Anti-Inflamma BYPASS trazodone AdvReac Other Verified 11/04/22 16:12 Family History Father Diabetes Hypertension Myocardial infarction Alcoholism Brother Myocardial infarction Alcoholism Mother CVA (cerebral vascular accident) Surgical History H/O dilation and curettage H/O gastric bypass History of bilateral salpingo-oophorectomy History of cholecystectomy Hydradenitis S/P arthroscopic knee surgery S/P lumbar spine operation s/p nerve spine surgery s/p upper back surgery skin graft Social History Smoking Status: Current every day smoker tobacco type: cigarettes alcohol intake: never substance use type: does not use caffeine: Yes what type of physical activity do you participate in: none seatbelt use: always do you feel safe at home: Yes additional social history: ROS Constitutional Constitutional: Reports fatigue and weakness; Denies anorexia, change in weight, fever(s) or night sweats Eyes Eyes: Denies blurry vision, change in vision, discharge from eye(s) or eye pain Cardiovascular Cardiovascular: Denies chest pain, claudication, edema or palpitations Respiratory/Chest Respiratory/Chest: Denies cough, hemoptysis, shortness of breath at rest or shortness of breath with exertion Gastrointestinal Gastrointestinal: Denies abdominal pain, constipation, diarrhea, hematemesis, hematochezia, melena, nausea or vomiting Genitourinary Genitourinary: Denies dysuria, hematuria, urinary frequency, urinary hesitancy, urinary incontinence or urinary urgency Musculoskeletal Musculoskeletal: Reports back pain and other Details: Patient has chronic paraplegia ; Denies joint pain, joint stiffness, joint swelling, myalgias or neck pain Neurologic Neurologic: Denies abnormal speech, dizziness, focal weakness, headache(s), loss of vision, other visual disturbances, syncope or tingling Psychiatric Psychiatric: Denies anxiety, cognitive impairment, depression, irritability, mood swings or suicidal ideation Endocrine Endocrinology: Denies change in body appearance, cold intolerance, excessive sweating, heat intolerance, polydipsia or polyuria Hematologic/Lymphatic Hematologic/Lymphatic: Denies none, anemia, easy bleeding, easy bruising or lymphadenopathy Allergic/Immunologic Allergic/Immunologic: Denies rhinitis, urticaria, eczemia or asthma Vital Signs Vital Signs Vital Signs: 11/04/22 16:09 11/04/22 18:08 11/04/22 19:03 Temperature 97.7 F L 97.7 F L Temperature Source Oral Oral Pulse Rate 102 H 89 89 Respiratory Rate 16 16 16 Blood Pressure 102/69 93/61 93/61 Blood Pressure Mean 80 71 71 Blood Pressure Source Blood Pressure Position Blood Pressure Location Pulse Ox 100 99 99 Oxygen Delivery Method Room Air Room Air Room Air 11/04/22 20:48 Temperature 97.7 F L Temperature Source Axillary Pulse Rate 91 Respiratory Rate 18 Blood Pressure 116/68 Blood Pressure Mean 84 Blood Pressure Source Monitor Blood Pressure Position Semi-Fowlers Blood Pressure Location Right Arm Pulse Ox 100 Oxygen Delivery Method Room Air Weight Weight: 67.903 kg Body Mass Index (BMI) 25.7 Physical Exam Const alert, oriented x3 and no apparent distress Constitutional Narrative: Patient appears older than her stated age General Appearance: cooperative, well kempt and well developed Orientation / Consciousness: awake, oriented to person, oriented to place and oriented to time HEENT normocephalic, head/scalp atraumatic, hearing grossly normal bilaterally and moist oral mucous membranes Eyes PERRL, EOMs intact bilaterally and conjunctivae normal Neck supple, no JVD, thyroid normal and no carotid bruits General: trachea midline Resp normal respiratory effort, no retractions, no use of accessory muscles and clear to auscultation bilaterally Auscultation: Negative for rales, rhonchi or wheezes Cardio regular rate, regular rhythm, S1 normal heart sound, S2 normal heart sound, no murmurs, no rub and no gallops GI normal to inspection, nondistended, normoactive bowel sounds, soft to palpation, non-tender and non-distended Extremity Extremity Narrative: Patient has generalized atrophy of both legs Skin no rashes or lesions noted General Skin Exam: no breakdown Neuro oriented x3 and CN's II-XII intact bilaterally Neuro Narrative: Patient is paraplegic, she has some movement in her hips Sensorium / Orientation: awake and alert Speech: speech normal Psych affect normal Results Lab / Micro Data Result Diagrams: 11/04/22 16:56 11/05/22 07:27 Labs: Laboratory Results - last 24 hr 11/04/22 16:56: WBC 7.2, RBC 3.82 L, Hgb 11.8 L, Hct 34.9 L, MCV 91.4, MCH 30.9, MCHC 33.8, RDW Std Deviation 46.4 H, RDW Coeff of Jarrod 13.8, Plt Count 204, MPV 10.1, Immature Gran % (Auto) 0.600, Neut % (Auto) 72.9 H, Lymph % (Auto) 18.9 L, [place] % (Auto) 5.7, Eos % (Auto) 1.5, Baso % (Auto) 0.4, Absolute Neuts (auto) 5.2, Absolute Lymphs (auto) 1.35, Nucleated RBC % 0 11/04/22 16:56: Sodium 137, Potassium 2.7 L*, Chloride 101, Carbon Dioxide 30.0, Anion Gap 6, BUN 42 H, Creatinine 1.01, Estim Creat Clear Calc 50.51, Est GFR (MDRD) Af Amer 72, Est GFR (MDRD) Non-Af 59 L, BUN/Creatinine Ratio 41.6 H, Glucose 212 H, Calcium 8.6, Magnesium 1.0 L, Total Bilirubin 0.30, AST 13 L, ALT 18, Alkaline Phosphatase 138 H, Total Protein 5.8 L, Albumin 2.4 L, Globulin 3.4, Albumin/Globulin Ratio 0.7 L Radiology Impression Brain CT 11/04/22 16:41 IMPRESSION: No acute intracranial abnormality. Electronically Signed: Jam Rios MD at 17:19 EDT , Chest X-Ray 11/04/22 17:05 IMPRESSION: No acute radiographic abnormalities. Electronically Signed: Jam Rios MD at 17:24 EDT , Assessment & Plan Assessment/Plan (1) Witnessed seizure-like activity: PLAN: Plan 1. Hypokalemia-probably from diuretics, patient will be admitted to PCU, she will receive IV and oral potassium supplementation, labs will be monitored #2 hypomagnesemia-probably secondary to outpatient diuretic usage, patient will receive magnesium supplementation, labs will be repeated #3 brief interval of decreased consciousness without witnessed tonic-clonic seizure activity-etiology unclear at this point, patient will undergo an EEG #4 chronic paraplegia due to failed back surgery-complicates care, medical course, recovery, and prognosis #5 failed back surgery/degenerative joint disease of the lumbar spine- complicates care, medical course, recovery, and prognosis Total clinical time spent by myself addressing the patient's medical issues, reviewing all her data, and collaborating with patient's care team: 55 minutes Charges/Coding Visit Charges Inpatient E&M: 21186 Init Hosp L2
[2022-11-04 22:39] VITALS: BMI 24.0
[2022-11-04] MEDS: Gabapentin 300 MG Capsule PO (23:09)
[2022-11-04] MEDS: Mirtazapine 15 MG Tablet PO (23:10)
[2022-11-04] MEDS: Acyclovir 200 MG Capsule 400 MG PO (23:10)
[2022-11-04] MEDS: Glycerin/Hypromellose/PEG400 15 ml Bottle 1 DRP OPHTHALMIC (23:11)
[2022-11-04] MEDS: Nystatin Powder 15gm Bottle 1 APPLIC TOPICAL (23:11)
[2022-11-04] MEDS: Atorvastatin Calcium 20 MG Tablet PO (23:11)
[2022-11-04] MEDS: Heparin Injection (Vial) 5,000 UNIT/ML VIAL 5000 UNIT SC (23:16)
[2022-11-04] MEDS: KCL 20MEQ in 0.9% NS 20 MEQ/1,000 ML IV.SOLN. 100 MEQ IV (23:40)
[2022-11-04] MEDS: Magnesium Sulfate 4gm/100mL 4 GM/100 ML IV.SOLN. IV (23:49)
[2022-11-04] MEDS: 0.9% Saline Lock 10 ML Syringe IV (23:54)
[2022-11-05] MEDS: oxyCODONE 5 MG Tablet 2.5 MG PO ×3 (00:58→14:00)
[2022-11-05 01:02] VITALS: BP 105/75; PULSE 83; RESP 18; TEMP 36.3; O2SAT 95
[2022-11-05 05:12] VITALS: BP 124/77; PULSE 76; RESP 18; TEMP 36.6; O2SAT 100
[2022-11-05] MEDS: Levothyroxine 150 MCG Tablet PO (05:18)
--- NOTE | 2022-11-05 08:42 | TELEMED_ITS ---
[facility] Telemed has confirmed receipt of a request for visit. This document confirms receipt of the order initiating the consult. To find the results of the consultation, please view the patient's reports for the scanned Telemed Consult.
[2022-11-05 08:46] LABS: Anion Gap 5 (5-15); BUN 36 mg/dL (7-18); BUN/Creat Ratio 60.1 RATIO (10-20); Calcium,Total 9.2 mg/dL (8.5-10.1); Chloride 111 mmol/L (98-107); EST Glomerular Filtration Rate 108 mL/min (>60); Est Glom Filt Rate - Afr Amer 131 mL/min (>60); Estimated Creatinine Clearance 85.03 ml/min; Glucose 111 mg/dL (74-106); Magnesium 2.6 mg/dL (1.6-2.6); Potassium 3.5 mmol/L (3.5-5.1); Sodium Level 141 mmol/L (136-145)
[2022-11-05] MEDS: Heparin Injection (Vial) 5,000 UNIT/ML VIAL 5000 UNIT SC (08:58)
[2022-11-05] MEDS: Nystatin Powder 15gm Bottle 1 APPLIC TOPICAL (08:58)
[2022-11-05] MEDS: Gabapentin 300 MG Capsule PO (08:58)
[2022-11-05] MEDS: Acyclovir 200 MG Capsule 400 MG PO (08:59)
[2022-11-05] MEDS: KCL 20MEQ in 0.9% NS 20 MEQ/1,000 ML IV.SOLN. 100 MEQ IV (09:07)
[2022-11-05 09:10] VITALS: BP 114/69; PULSE 76; RESP 14; TEMP 36.7; O2SAT 98
--- NOTE | 2022-11-05 09:35 | CASEMGMT ---
RN DERRICK Face to Face with patient for initial transition planning/care coordination assessment. RN CM introduced self and role at [facility]. Patient lying in bed, alert and oriented. Patient willing to participate in assessment and is able to answer all questions appropriately. Care providers, pharmacy, and demographics verified. Patient wishes to discharge home with resumption of HHC with [facility]. Patient states she has no further needs or concerns at this time. CM to follow for discharge planning needs that may arise. PCP: Olvin Specialists: kiara [place] spinal [facility]; [facility] Preferred Pharmacy: [facility] Insurance: [employer] Prescription Benefit: yes Living Will/HPOA: yes, daughters Adriane and Fabiana LNOK: daughters Living Arrangements: Patient lives with daughter in 2 story apartment with bed and bath on first floor. Patient states she toilets self, daughter and aide assist with ADLs Transportation: daughter, [employer] provide a ride DME/HHC: Patient has shower chair, BSC, hospital bed, wheelchair, slide board, glucometer at home. Patient has been to [facility], [facility], [facility], and [facility] in the past. Just recently discharged for [facility] a few days ago. Patient is active with [facility]. Patient is active with [facility] and has aide services 15 hrs per week, M- and every other weekend. CM is Mariela Gutierres. Disposition Plan: Patient to discharge home with HHC, family support, and follow-up plans in place. Mitra MURGUIA, RN, CM
--- NOTE | 2022-11-05 11:44 | DCINST_ITS ---
Discharge Instructions Diet Discharge Diet: No restrictions Activity Discharge Activity: Return to Normal Activity Weight Bearing Status: - (Resume previous activity level) Follow Up Care Test Results: Test results from this visit will be discussed in further detail at your follow- up appointment, if applicable. Discharge Plan Admission Admit Date/Time: 11/04/22 18:41 Primary Reason for Your Visit: Hypokalemia, hypomagnesemia Attending Provider: Bret Kevin Primary Care Provider: Kevin Bah Discharge Orders/Prescriptions Prescriptions: Continued [id number] [Cerovite Senior] tablet 1 tab PO DAILY betamethasone valerate 0.1 % cream 1 applic topical BID PRN (Reason: skin irritation) Qty: 15 0RF cetirizine 10 mg tablet 10 mg PO DAILY Qty: 30 0RF Artificial Tears([id number]) 0.1-0.3 % drops 1 drp ophthalmic (eye) TID Combivent Respimat 20-100 mcg/actuation mist 1 puff inhalation Q6H PRN atorvastatin 20 MG tablet 20 mg PO QHS pantoprazole 40 MG tablet 40 mg PO BID PRN (Reason: stomach) levothyroxine 150 MCG tablet 150 mcg PO DAILY acetaminophen 500 MG tablet 500 mg PO Q6H PRN (Reason: Pain 1-10 Or Fever) albuterol sulfate 1 INHALER inhaler 2 puff INHALATION Q4H PRN PRN (Reason: Sob &/Or Wheezing) ferrous sulfate 325 mg (65 mg iron) Tablet 325 mg PO DAILY nystatin 100,000 unit/gram cream 1 applic TOPICAL BID Label Comments: apply to affected area twice a day if needed for rash mupirocin 2 % ointment 1 applic TOPICAL DAILY PRN (Reason: Wound Care) Label Comments: apply to LEG WOUNDS -- DIRECTED -- FOR 10 DAYS fluticasone propionate 50 mcg/actuation [place],Suspension 2 spray INTRANASAL DAILY Rx Instructions: administer into each nostril cholecalciferol (vitamin D3) 25 mcg (1,000 unit) Capsule 25 mcg PO DAILY biotin 1 mg Tablet 1 mg PO DAILY calcium citrate 250 mg calcium Tablet 250 mg PO DAILY cyanocobalamin (vitamin B-12) 1,000 mcg Tablet 1,000 mcg PO DAILY gabapentin 300 mg capsule 300 mg PO BID 30 Days Qty: 60 0RF nystatin 100,000 unit/gram powder 1 applic topical BID 10 Days Qty: 30 1RF Rx Instructions: to effected area Lac-Hydrin Five 5 % lotion 1 applic topical BID 30 Days Qty: 226 1RF (DME) hydrocolloid dressing [DuoDERM CGF Border Dressing] 4 X 4 bandage See Rx Instructions .ROUTE .MEDSUPPLY Qty: 5 6RF Rx Instructions: As directed mirtazapine 15 mg tablet See Rx Instructions .ROUTE .COMPLEX Qty: 30 2RF Dose Instruction: take 1 tablet by mouth at bedtime Rx Instructions: take 1 tablet by mouth at bedtime lidocaine 5 % ointment 1 applic topical TID PRN (Reason: pain) Qty: 30 3RF valacyclovir [Valtrex] 500 mg tablet 500 mg PO DAILY Qty: 30 12RF Discontinued potassium chloride 10 mEq tablet extended release 10 meq PO DAILY Qty: 30 0RF Rx Instructions: DAILY WITH BREAKFAST metolazone 2.5 mg tablet 2.5 mg PO DAILY PRN (Reason: swelling) Rx Instructions: TAKE 1 TABLET DAILY UP TO 5 DAYS A WEEK NEEDED FOR SWELLING. Referrals / Follow Up: Kevin Bah MD [Primary Care Provider] - See Referral Note (as scheduled) Disposition Disposition (needs filled in before D/C Order can be placed): Home Health Service
--- NOTE | 2022-11-05 11:51 | DS.PCM_ITS ---
Providers Date of Admission: 11/04/22 Date of Discharge: 11/05/22 Primary Care Physician: Dr. Kevin Bah MD Reason For Visit: HYPOMAGNESEMIA, HYPOKALEMIA Diagnosis Discharge Diagnosis (1) Hypomagnesemia: Status: Acute Code(s): E83.42 - Hypomagnesemia Plan 1. 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 #5 brief episode of unresponsiveness-etiology unclear Patient was not felt to have had a seizure Medications at Discharge Home Medications [id number]-[id number] tablet (Cerovite Senior) 1 tab PO DAILY supplement 02/26/18 atorvastatin 20 mg tablet 20 mg PO QHS cholesterol 08/08/19 levothyroxine 150 mcg tablet 150 mcg PO DAILY thyroid 09/17/20 pantoprazole 40 mg tablet,delayed release 40 mg PO BID PRN stomach 09/17/20 acetaminophen 500 mg tablet 500 mg PO Q6H PRN Pain 1-10 Or Fever 10/08/20 albuterol sulfate 90 mcg/actuation aerosol inhaler 2 puff inhalation Q4H PRN PRN Sob &/Or Wheezing 10/08/20 betamethasone valerate 0.1 % topical cream 1 applic topical BID PRN skin irritation #15 grams 01/15/21 cetirizine 10 mg tablet 10 mg PO DAILY #30 tabs 01/15/21 hydrocolloid dressing 4 X 4 (DuoDERM CGF Adhesive Border Dressing) #5 ea 09/07/21 biotin 1 mg tablet 1 mg PO DAILY SUPPLEMENT 05/17/22 calcium citrate 250 mg PO DAILY SUPPLEMENT 05/17/22 cholecalciferol (vitamin D3) 25 mcg (1,000 unit) capsule 25 mcg PO DAILY SUPPLEMENT 05/17/22 cyanocobalamin (vitamin B-12) 1,000 mcg tablet 1,000 mcg PO DAILY SUPPLEMENT 05/17/22 ferrous sulfate 325 mg (65 mg iron) tablet 325 mg PO DAILY SUPPLEMENT 05/17/22 fluticasone propionate 50 mcg/actuation nasal spray,suspension 2 spray intranasal DAILY ALLERGIES 05/17/22 mupirocin 2 % topical ointment 1 applic topical DAILY PRN Wound Care 05/17/22 nystatin 100,000 unit/gram topical cream 1 applic topical BID RASH 05/17/22 gabapentin 300 mg capsule 300 mg PO BID 30 days #60 caps 05/19/22 dextran 70-hypromellose 0.1 %-0.3 % eye drops (Artificial Tears (dextran 70- hypromellose)) 1 drp ophthalmic (eye) TID 05/25/22 ipratropium 20 mcg-albuterol 100 mcg/actuation mist for inhalation (Combivent Respimat) 1 puff inhalation Q6H PRN 05/25/22 nystatin 100,000 unit/gram topical powder 1 applic topical BID 10 days #30 grams 07/08/22 sennosides 8.6 mg tablet (Senna Lax) 8.6 mg PO .QOD STOOL 08/25/22 topiramate 25 mg tablet 25 mg PO ONCE pain 08/25/22 ammonium lactate 5 % lotion (Lac-Hydrin Five) 1 applic topical BID 30 days #226 grams 09/05/22 mirtazapine 15 mg tablet See Rx Instructions .Route .COMPLEX #30 tabs 09/19/22 lidocaine 5 % topical ointment 1 applic topical TID PRN pain #30 grams 10/10/22 valacyclovir 500 mg tablet (Valtrex) 500 mg PO DAILY Check with primary doctor #30 tabs 10/10/22 Hospital Course Operations None Procedures Electroencephalogram Summary of Care Provided Minutes Spent on Discharge: 32 Hospital Course: This 62-year-old white female was seen in the emergency room at [facility] after having an episode at home during which she became unresponsive. Brief episode, family members were concerned it could be a seizure and brought the patient in for evaluation, patient was found to have low magnesium and low potassium-this was felt to be secondary to outpatient diuretic usage. Patient had recently been discharged from the correction few days prior after being there for rehab due to extensive back surgery. Patient was given potassium magnesium replacement and an EEG was performed, at the time of her discharge from the hospital, EEG results were not known. Patient's medical status improved quicker than expected. On 11/05/2022, patient was seen and examined:alert, oriented x3 and no apparent distress Constitutional Narrative: Patient appears older than her stated age General Appearance: cooperative, well kempt and well developed Orientation / Consciousness: awake, oriented to person, oriented to place and oriented to time HEENT normocephalic, head/scalp atraumatic, hearing grossly normal bilaterally and moist oral mucous membranes Eyes PERRL, EOMs intact bilaterally and conjunctivae normal Neck supple, no JVD, thyroid normal and no carotid bruits General: trachea midline Resp normal respiratory effort, no retractions, no use of accessory muscles and clear to auscultation bilaterally Auscultation: Negative for rales, rhonchi or wheezes Cardio regular rate, regular rhythm, S1 normal heart sound, S2 normal heart sound, no murmurs, no rub and no gallops GI normal to inspection, nondistended, normoactive bowel sounds, soft to palpation, non-tender and non-distended Extremity Extremity Narrative: Patient has generalized atrophy of both legs Skin no rashes or lesions noted General Skin Exam: no breakdown Neuro oriented x3 and CN's II-XII intact bilaterally Neuro Narrative: Patient is paraplegic, she has some movement in her hips Sensorium / Orientation: awake and alert Speech: speech normal Psych affect normal Patient appears stable for discharge home on 11/05/2022. 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 Continue to work w/ pt re: food selections. Weight / BMI Weight Weight: 63.7 kg Body Mass Index (BMI) 24.0 ABG / Lab / Microbiology Data Result Diagrams: 11/04/22 16:56 11/05/22 07:27 Laboratory: Laboratory Results - last 24 hr 11/04/22 16:56: WBC 7.2, RBC 3.82 L, Hgb 11.8 L, Hct 34.9 L, MCV 91.4, MCH 30.9, MCHC 33.8, RDW Std Deviation 46.4 H, RDW Coeff of Jarrod 13.8, Plt Count 204, MPV 10.1, Immature Gran % (Auto) 0.600, Neut % (Auto) 72.9 H, Lymph % (Auto) 18.9 L, [place] % (Auto) 5.7, Eos % (Auto) 1.5, Baso % (Auto) 0.4, Absolute Neuts (auto) 5.2, Absolute Lymphs (auto) 1.35, Nucleated RBC % 0 11/04/22 16:56: Sodium 137, Potassium 2.7 L*, Chloride 101, Carbon Dioxide 30.0, Anion Gap 6, BUN 42 H, Creatinine 1.01, Estim Creat Clear Calc 50.51, Est GFR (MDRD) Af Amer 72, Est GFR (MDRD) Non-Af 59 L, BUN/Creatinine Ratio 41.6 H, Glucose 212 H, Calcium 8.6, Magnesium 1.0 L, Total Bilirubin 0.30, AST 13 L, ALT 18, Alkaline Phosphatase 138 H, Total Protein 5.8 L, Albumin 2.4 L, Globulin 3.4, Albumin/Globulin Ratio 0.7 L 11/05/22 07:27: Sodium 141, Potassium 3.5, Chloride 111 H, Carbon Dioxide 25.0, Anion Gap 5, BUN 36 H, Creatinine 0.60, Estim Creat Clear Calc 85.03, Est GFR (MDRD) Af Amer 131, Est GFR (MDRD) Non-Af 108, BUN/Creatinine Ratio 60.1 H, Glucose 111 H, Calcium 9.2, Magnesium 2.6 Radiography Diagnostic Testing: Radiology Impression Brain CT 11/04/22 16:41 IMPRESSION: No acute intracranial abnormality. Electronically Signed: Jam Rios MD at 17:19 EDT , Chest X-Ray 11/04/22 17:05 IMPRESSION: No acute radiographic abnormalities. Electronically Signed: Jam Rios MD at 17:24 EDT , D/C Instructions Discharge Diet: No restrictions Weight Bearing Status: - (Resume previous activity level) Meaningful Use Info Meaningful Use Diagnoses (Choose all that apply): None applicable Discharge Plan Admission Admit Date/Time: 11/04/22 18:41 Primary Reason for Your Visit: Hypokalemia, hypomagnesemia Attending Provider: Bret Kevin Primary Care Provider: Kevin Bah Discharge Orders/Prescriptions Prescriptions: Continued bpuyhmxunlvk-uilziruk-yqnhlf [Cerovite Senior] tablet 1 tab PO DAILY betamethasone valerate 0.1 % cream 1 applic topical BID PRN (Reason: skin irritation) Qty: 15 0RF cetirizine 10 mg tablet 10 mg PO DAILY Qty: 30 0RF Artificial Tears([id number]) 0.1-0.3 % drops 1 drp ophthalmic (eye) TID Combivent Respimat 20-100 mcg/actuation mist 1 puff inhalation Q6H PRN atorvastatin 20 MG tablet 20 mg PO QHS pantoprazole 40 MG tablet 40 mg PO BID PRN (Reason: stomach) levothyroxine 150 MCG tablet 150 mcg PO DAILY acetaminophen 500 MG tablet 500 mg PO Q6H PRN (Reason: Pain 1-10 Or Fever) albuterol sulfate 1 INHALER inhaler 2 puff INHALATION Q4H PRN PRN (Reason: Sob &/Or Wheezing) ferrous sulfate 325 mg (65 mg iron) Tablet 325 mg PO DAILY nystatin 100,000 unit/gram cream 1 applic TOPICAL BID Label Comments: apply to affected area twice a day if needed for rash mupirocin 2 % ointment 1 applic TOPICAL DAILY PRN (Reason: Wound Care) Label Comments: apply to LEG WOUNDS -- DIRECTED -- FOR 10 DAYS fluticasone propionate 50 mcg/actuation [place],Suspension 2 spray INTRANASAL DAILY Rx Instructions: administer into each nostril cholecalciferol (vitamin D3) 25 mcg (1,000 unit) Capsule 25 mcg PO DAILY biotin 1 mg Tablet 1 mg PO DAILY calcium citrate 250 mg calcium Tablet 250 mg PO DAILY cyanocobalamin (vitamin B-12) 1,000 mcg Tablet 1,000 mcg PO DAILY gabapentin 300 mg capsule 300 mg PO BID 30 Days Qty: 60 0RF nystatin 100,000 unit/gram powder 1 applic topical BID 10 Days Qty: 30 1RF Rx Instructions: to effected area Lac-Hydrin Five 5 % lotion 1 applic topical BID 30 Days Qty: 226 1RF (DME) hydrocolloid dressing [DuoDERM CGF Border Dressing] 4 X 4 bandage See Rx Instructions .ROUTE .MEDSUPPLY Qty: 5 6RF Rx Instructions: As directed mirtazapine 15 mg tablet See Rx Instructions .ROUTE .COMPLEX Qty: 30 2RF Dose Instruction: take 1 tablet by mouth at bedtime Rx Instructions: take 1 tablet by mouth at bedtime lidocaine 5 % ointment 1 applic topical TID PRN (Reason: pain) Qty: 30 3RF valacyclovir [Valtrex] 500 mg tablet 500 mg PO DAILY Qty: 30 12RF Discontinued potassium chloride 10 mEq tablet extended release 10 meq PO DAILY Qty: 30 0RF Rx Instructions: DAILY WITH BREAKFAST metolazone 2.5 mg tablet 2.5 mg PO DAILY PRN (Reason: swelling) Rx Instructions: TAKE 1 TABLET DAILY UP TO 5 DAYS A WEEK NEEDED FOR SWELLING. Referrals / Follow Up: Kevin Bah MD [Primary Care Provider] - See Referral Note (as scheduled) Disposition Disposition (needs filled in before D/C Order can be placed): Home Health Service Charges/Coding Visit Charges Inpatient E&M: 88731 Disch Hosp >30min
--- NOTE | 2022-11-05 11:56 | NURSING ---
I spoke with Kathleen with [facility] to inform her that the pt is being d/c today.
--- NOTE | 2022-11-05 12:12 | CASEMGMT ---
Social Work Pt is being discharged today home. SW left a message for pt's senior case manager with [facility] to let her know pt is going home today. FAROOQ Johnson
[2022-11-05 15:10] VITALS: BP 112/56; PULSE 79; RESP 14; TEMP 36.7; O2SAT 97
--- NOTE | 2022-11-07 12:53 | NURSING ---
TODD CM Discharge Follow-up Phone Call: WENDIEMarcelo:Kenny Strata:3 Date of Call:11/07/22 Time of Call:1254 Admitting Diagnosis:Hypomagnesemia, Hypokalemia Summary of Call: Unable to leave VM message.
== END 2022-11-05 16:11 | disposition home health service (06) | DRG 640 ==
LOC: ED 18:18 → PCU 18:57
PROVIDERS: Admitting Provider Internal Medicine; Emergency Provider Emergency Medicine; PCP Internal Medicine; Visit Provider Internal Medicine
DX: E87.6 Hypokalemia (principal); E43 Unspecified severe protein-calorie malnutrition; G82.20 Paraplegia, unspecified; J44.9 Chronic obstructive pulmonary disease, unspecified; E83.42 Hypomagnesemia; M51.36 Other intervertebral disc degeneration, lumbar region; F17.210 Nicotine dependence, cigarettes, uncomplicated; R40.4 Transient alteration of awareness; Z68.24 Body mass index [BMI] 24.0-24.9, adult; Z79.891 Long term (current) use of opiate analgesic; Z79.899 Other long term (current) drug therapy
CPT/HCPCS: 36415; 70450; 71045; 80048; 80053; 83735; 85025; 93005; 95819; 97802; 99285; J7040; J7050; A4216

== ENCOUNTER 2022-12-10 12:45 | Emergency (ER) | payer MEDICARE, MEDICAID, SELFPAY ==
[2022-12-10 12:46] VITALS: BP 108/70; PULSE 76; RESP 16; TEMP 36.6; O2SAT 97; BMI 24.7
[2022-12-10 12:49] VITALS: BP 110/68; PULSE 74; RESP 18; TEMP 36.6; O2SAT 98
--- NOTE | 2022-12-10 13:19 | CT_ITS ---
EXAM: CT PELVIS WITH INTRAVENOUS CONTRAST CLINICAL INDICATION: sacral wound TECHNIQUE: Helically acquired images were obtained of the pelvis with intravenous contrast. This CT exam was performed using one or more of the following dose reduction techniques: automated exposure control, adjustment of the mA and/or kV according to patient size, and/or use of iterative reconstruction technique. CONTRAST: IV 100mL Isovue-300 RADIATION DOSE: CTDIvol = 6.33 mGy, DLP = 219.85 mGy-cm COMPARISON: CT abdomen and pelvis with contrast 09/20/2020. FINDINGS: BOWEL: Unremarkable as visualized. No bowel distention. No focal inflammatory change. APPENDIX: No evidence of acute appendicitis. INTRAPERITONEAL SPACE: Unremarkable. No ascites or other fluid collection. No free air. BLADDER: Unremarkable. REPRODUCTIVE: Unremarkable as visualized. No mass. BONES/JOINTS: Extensive metallic streak artifacts due to pedicular screws and rods in the lumbar spine without to the upper sacrum. Penetrating metallic screws in both SI joints. They are unchanged. No suspicious lytic or blastic abnormality. SOFT TISSUES: Abnormal thickening of the skin just below and overlying the coccyx due to bedsore. This is a new finding. No pelvic wall hernia. LYMPH NODES: Unremarkable. No enlarged lymph nodes. CT/Pelvis WITH IV Contrast IMPRESSION: 1. Abnormal thickening of the skin and subcutaneous fat overlying the coccyx and below the coccyx due to bedsore. 2. No CT evidence of abscess in the pelvis or underneath the bedsore. 3. No CT evidence of osteomyelitis of the coccyx. 4. No other additional findings or changes. Electronically Signed: Bruno Abbasi MD at 15:37 EDT ,
--- NOTE | 2022-12-10 13:29 | CM.ED ---
Social Work SW contacted by [facility] RN reporting patient will be coming into ED and will need assistance with termite treater placement as she is bed bound, does not have support from family and only has an aide a couple times a week. [facility] RN does not feel patient is safe to return home alone and per RN patient agreed to termite treater care placement. Care team updated. Kiara Perez [employer], [employer]
[2022-12-10] MEDS: Morphine 4 MG/ML Syringe IV (13:37)
[2022-12-10] MEDS: 0.9% Normal Saline 1,000 ML 1000 ML IV (13:38)
--- NOTE | 2022-12-10 13:38 | EDS_ITS ---
HPI History of Present Illness Chief Complaint: Wound Check Narrative Narrative: Patient sent in here from home for evaluation of concerning wound increasing drainage. She has had paralysis lower extremities from back surgery 5 years ago. She had a revision this past September stating her hardware failure. Incision from her thoracic down to her lumbar performed at [facility] by Dr. Samayoa. She also been dealing with a sacral ulcer states odor unclear was from her surgical wound or ulcer from report. Denies fevers. She states decreased appetite with nausea over the last 2 days. States pain in her lower sacrum 9 out of 10. 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, lumbar region Paraplegia Primary generalized (osteo)arthritis Spinal stenosis, lumbar region without neurogenic claudication Witnessed seizure-like activity Home Medications [id number] tablet (Cerovite Senior) 1 tab PO DAILY supplement 02/26/18 [History Last Taken 09/23/20] atorvastatin 20 mg tablet 20 mg PO QHS cholesterol 08/08/19 [History Last Taken 09/23/20] levothyroxine 150 mcg tablet 150 mcg PO DAILY thyroid 09/17/20 [History Last Taken 09/24/20] pantoprazole 40 mg tablet,delayed release 40 mg PO BID PRN stomach 09/17/20 [History Last Taken 09/24/20] acetaminophen 500 mg tablet 500 mg PO Q6H PRN Pain 1-10 Or Fever 10/08/20 [History Last Taken Unknown] albuterol sulfate 90 mcg/actuation aerosol inhaler 2 puff inhalation Q4H PRN PRN Sob &/Or Wheezing 10/08/20 [History Last Taken Unknown] betamethasone valerate 0.1 % topical cream 1 applic topical BID PRN skin irritation #15 grams 01/15/21 [Rx Last Taken Unknown] cetirizine 10 mg tablet 10 mg PO DAILY #30 tabs 01/15/21 [Rx Last Taken Unknown] hydrocolloid dressing 4 X 4 (DuoDERM CGF Adhesive Border Dressing) #5 ea 09/07/21 [Rx Last Taken Unknown] biotin 1 mg tablet 1 mg PO DAILY SUPPLEMENT 05/17/22 [History Last Taken Unknown] calcium citrate 250 mg PO DAILY SUPPLEMENT 05/17/22 [History Last Taken Unknown] cholecalciferol (vitamin D3) 25 mcg (1,000 unit) capsule 25 mcg PO DAILY SUPPLEMENT 05/17/22 [History Last Taken Unknown] cyanocobalamin (vitamin B-12) 1,000 mcg tablet 1,000 mcg PO DAILY SUPPLEMENT 05/17/22 [History Last Taken Unknown] ferrous sulfate 325 mg (65 mg iron) tablet 325 mg PO DAILY SUPPLEMENT 05/17/22 [History Last Taken Unknown] fluticasone propionate 50 mcg/actuation nasal spray,suspension 2 spray intranasal DAILY ALLERGIES 05/17/22 [History Last Taken Unknown] mupirocin 2 % topical ointment 1 applic topical DAILY PRN Wound Care 05/17/22 [History Last Taken Unknown] gabapentin 300 mg capsule 300 mg PO BID 30 days #60 caps 05/19/22 [Rx Last Taken Unknown] dextran 70-hypromellose 0.1 %-0.3 % eye drops (Artificial Tears (dextran 70- hypromellose)) 1 drp ophthalmic (eye) TID 05/25/22 [History Last Taken Unknown] ipratropium 20 mcg-albuterol 100 mcg/actuation mist for inhalation (Combivent Respimat) 1 puff inhalation Q6H PRN copd 05/25/22 [History Last Taken Unknown] nystatin 100,000 unit/gram topical powder 1 applic topical BID 10 days #30 grams 07/08/22 [Rx Last Taken Unknown] sennosides 8.6 mg tablet (Senna Lax) 8.6 mg PO .QOD STOOL 08/25/22 [History Last Taken Unknown] ammonium lactate 5 % lotion (Lac-Hydrin Five) 1 applic topical BID 30 days #226 grams 09/05/22 [Rx Last Taken Unknown] mirtazapine 15 mg tablet See Rx Instructions .Route .COMPLEX #30 tabs 09/19/22 [Rx Last Taken Unknown] lidocaine 5 % topical ointment 1 applic topical TID PRN pain #30 grams 10/10/22 [Rx Last Taken Unknown] valacyclovir 500 mg tablet (Valtrex) 500 mg PO DAILY Check with primary doctor #30 tabs 10/10/22 [Rx Last Taken Unknown] furosemide 20 mg tablet 20 mg PO DAILY 12/01/22 [History Last Taken Unknown] lorazepam 0.5 mg tablet 0.5 mg PO DAILY PRN Anxiety 12/01/22 [History Last Taken Unknown] methadone 5 mg tablet 5 mg PO BID 12/01/22 [History Last Taken Unknown] naloxone 4 mg/actuation nasal spray (Narcan) 1 spray intranasal Q2M 12/01/22 [History Last Taken Unknown] oxycodone-acetaminophen 10 mg-325 mg tablet (Percocet) 1 tab PO Q4H PRN Pain 12/01/22 [History Last Taken Unknown] cephalexin 500 mg capsule 500 mg PO Q6 #40 CAPSULES 12/10/22 [Rx Last Taken Unknown] Allergy/AdvReac Type Severity Reaction Status Date / Time NSAIDS (Non-Steroidal Allergy GASTRIC Verified 12/10/22 12:50 Anti-Inflamma BYPASS trazodone AdvReac Other Verified 12/10/22 12:50 Family History Father Diabetes Hypertension Myocardial infarction Alcoholism Brother Myocardial infarction Alcoholism Mother CVA (cerebral vascular accident) Surgical History H/O dilation and curettage H/O gastric bypass History of bilateral salpingo-oophorectomy History of cholecystectomy Hydradenitis S/P arthroscopic knee surgery S/P lumbar spine operation s/p nerve spine surgery s/p upper back surgery skin graft Social History Smoking Status: Current every day smoker tobacco type: cigarettes alcohol intake: never substance use type: does not use caffeine: Yes what type of physical activity do you participate in: none seatbelt use: always do you feel safe at home: Yes additional social history: ROS ROS ED Constitutional Constitutional ED: Denies chills, fever(s) or sweats Eyes Eyes: Denies change in vision ENT ENT ED: Denies dysphagia or sore throat Cardiovascular Cardiovascular: Denies chest pain, leg edema, palpitations or racing heartbeat Respiratory/Chest Respiratory/Chest: Denies cough, dyspnea or dyspnea on exertion Gastrointestinal Gastrointestinal: Reports nausea; Denies abdominal pain, diarrhea or vomiting Genitourinary Genitourinary ED: Denies dysuria, hematuria or urinary frequency Musculoskeletal Musculoskeletal: Denies back pain, extremity pain or neck pain Integumentary Reports wounds; Denies rash Neurologic Neurologic: Denies headache(s), paresthesias or weakness EXAM Physical Exam Const Vital Signs: 12/10/22 12:46 12/10/22 12:49 12/10/22 15:42 Temperature 98 F 98 F Temperature Source Temporal Temporal Pulse Rate 76 74 Respiratory Rate 16 18 18 Blood Pressure 108/70 110/68 Blood Pressure Mean 82 82 Pulse Ox 97 98 Oxygen Delivery Method Nasal Cannula Room Air Room Air Positive well nourished and well developed General Appearance ED: well developed and NAD HEENT Reports moist mucous membranes normocephalic and atraumatic Eyes PERRL, EOMs intact bilaterally and conjunctivae normal General Eye ED: Yes normal appearance of both eyes Neck no lymphadenopathy and supple General: Negative for tenderness Chest Wall Chest: Negative for tenderness Resp normal respiratory effort and normal air movement Effort and Inspection: symmetric chest movement; Negative for respiratory distress Cardio regular rate, regular rhythm and no murmurs Peripheral Pulses: pulses 2+ throughout GI normal to inspection, nondistended, normoactive bowel sounds and non-tender Palpation: Negative for guarding or rebound tenderness present Back/Spine no CVA tenderness and no thoracic nor lumbar tenderness Extremity normal to inspection General Extremety ED: Negative for edema or tenderness General Extremity: Negative for edema Neuro oriented x3 and no sensory deficits noted Sensorium / Orientation: awake and alert Skin Skin Narrative: -year-old by nursing midline back incision thoracic lumbar all healed, there is no erythema ulcerations or drainage. Sacrum noted 3 cm circular ulcer extending subcutaneously slight clear drainage on the dressing. No bony visualization. MDM MDM MDM Narrative Medical decision making narrative: Interventions / MDM: Differential diagnosis: Sacral ulcer, osteomyelitis Diagnosis considered but do not suspect: N/A My EKG interpretation: N/A Imaging independently reviewed and interpreted by myself: CT pelvis IV contrast, no abscess no bony destruction also read by radiology. External documents reviewed: N/A Test considered but not ordered:N/A ED course: Patient examined and there is no incisional wound infection or drainage from her surgery 2 months ago. She has a sacral ulcer stage III clinically. There is drainage on the dressing. Patient reported increasing pain. Given morphine and Phenergan. Patient's laboratory studies White count 9 creatinine 0.86. ESR normal for CRP 15. CT scan pelvis no signs of osteomyelitis, ulcer was noted. No abscess. Re-evaluation: stable, patient started on Keflex due to increasing drainage per patient. First dose given in ED with meds to bed. She has pain medication at home. She states she has the wound care follow-up as an outpatient in the next couple weeks. She has reestablished home health, she states her dressings are running low, discussed with nursing to provide extra dressing with DuoDERM's for home use. Outpatient follow-up with return precautions. All questions were answered. Disposition discussed with patient/family/significant other: Patient Case discussed with consulting clinician: N/A Lab Data Attestation: I reviewed the patient's lab results. Labs: Laboratory Results - last 24 hr 12/10/22 12/10/22 13:35 13:35 WBC 9.0 RBC 3.88 L Hgb 11.9 L Hct 35.4 L MCV 91.2 MCH 30.7 MCHC 33.6 RDW Std Deviation 52.1 H RDW Coeff of Jarrod 15.8 H Plt Count 406 MPV 9.3 Immature Gran % (Auto) 1.000 H Neut % (Auto) 65.1 Lymph % (Auto) 26.5 Jenkins % (Auto) 5.7 Eos % (Auto) 1.1 Baso % (Auto) 0.6 Absolute Neuts (auto) 5.8 Absolute Lymphs (auto) 2.38 Nucleated RBC % 0 ESR 15 Sodium 144 Potassium 3.7 Chloride 111 H Carbon Dioxide 25.0 Anion Gap 8 BUN 11 Creatinine 0.86 Estim Creat Clear Calc 64.31 Est GFR (MDRD) Af Amer 86 Est GFR (MDRD) Non-Af 71 BUN/Creatinine Ratio 12.8 Glucose 124 H Calcium 8.4 L C-React Prot Ext Range 15.20 H Radiography Diagnostic Testing: Clinical Impression(s) from Imaging Studies Pelvis CT 12/10/22 13:19 IMPRESSION: 1. Abnormal thickening of the skin and subcutaneous fat overlying the coccyx and below the coccyx due to bedsore. 2. No CT evidence of abscess in the pelvis or underneath the bedsore. 3. No CT evidence of osteomyelitis of the coccyx. 4. No other additional findings or changes. Electronically Signed: Bruno Abbasi MD at 15:37 EDT , Discharge Plan Triage Chief Complaint: Wound Check ED Provider: Raymond Herman Dx/Rx/DC Orders Clinical Impression: Sacral decubitus ulcer, stage III, Paraplegia, Spinal cord compression Instructions: ED Pressure Injury Prescriptions: New cephalexin [cephalexin] 500 mg capsule 500 mg PO Q6 Qty: 40 0RF No Action [id number] [Cerovite Senior] tablet 1 tab PO DAILY betamethasone valerate 0.1 % cream 1 applic topical BID PRN (Reason: skin irritation) Qty: 15 0RF cetirizine 10 mg tablet 10 mg PO DAILY Qty: 30 0RF Artificial Tears([id number]) 0.1-0.3 % drops 1 drp ophthalmic (eye) TID Combivent Respimat 20-100 mcg/actuation mist 1 puff inhalation Q6H PRN (Reason: copd) methadone 5 mg tablet 5 mg PO BID oxycodone-acetaminophen [Percocet] 10-325 mg tablet 1 tab PO Q4H PRN (Reason: Pain) naloxone [Narcan] 4 mg/actuation spray,non-aerosol 1 spray intranasal Q2M Rx Instructions: spray 1 dose into ONE nostril; alternate nostrils w each dose until help arrives lorazepam 0.5 mg tablet 0.5 mg PO DAILY PRN (Reason: Anxiety) furosemide 20 mg tablet 20 mg PO DAILY atorvastatin 20 MG tablet 20 mg PO QHS pantoprazole 40 MG tablet 40 mg PO BID PRN (Reason: stomach) levothyroxine 150 MCG tablet 150 mcg PO DAILY acetaminophen 500 MG tablet 500 mg PO Q6H PRN (Reason: Pain 1-10 Or Fever) albuterol sulfate 1 INHALER inhaler 2 puff INHALATION Q4H PRN PRN (Reason: Sob &/Or Wheezing) ferrous sulfate 325 mg (65 mg iron) Tablet 325 mg PO DAILY mupirocin 2 % ointment 1 applic TOPICAL DAILY PRN (Reason: Wound Care) Label Comments: apply to LEG WOUNDS -- DIRECTED -- FOR 10 DAYS fluticasone propionate 50 mcg/actuation Lund,Suspension 2 spray INTRANASAL DAILY Rx Instructions: administer into each nostril cholecalciferol (vitamin D3) 25 mcg (1,000 unit) Capsule 25 mcg PO DAILY biotin 1 mg Tablet 1 mg PO DAILY calcium citrate 250 mg calcium Tablet 250 mg PO DAILY cyanocobalamin (vitamin B-12) 1,000 mcg Tablet 1,000 mcg PO DAILY gabapentin 300 mg capsule 300 mg PO BID 30 Days Qty: 60 0RF sennosides [Senna Lax] 8.6 mg tablet 8.6 mg PO .QOD Label Comments: take 1 tablet by mouth once daily nystatin 100,000 unit/gram powder 1 applic topical BID 10 Days Qty: 30 1RF Rx Instructions: to effected area Lac-Hydrin Five 5 % lotion 1 applic topical BID 30 Days Qty: 226 1RF (DME) hydrocolloid dressing [DuoDERM CGF Border Dressing] 4 X 4 bandage See Rx Instructions .ROUTE .MEDSUPPLY Qty: 5 6RF Rx Instructions: As directed mirtazapine 15 mg tablet See Rx Instructions .ROUTE .COMPLEX Qty: 30 2RF Dose Instruction: take 1 tablet by mouth at bedtime Rx Instructions: take 1 tablet by mouth at bedtime lidocaine 5 % ointment 1 applic topical TID PRN (Reason: pain) Qty: 30 3RF valacyclovir [Valtrex] 500 mg tablet 500 mg PO DAILY Qty: 30 12RF Primary Care Provider: Kevin Bah Referrals: Kevin Bah MD [Primary Care Provider] - Wound,Center [Non-Staff] - 1-2 Weeks Activity Restrictions/Additional Instructions: CT scan with no abscess or osteomyelitis. White count 9. Please take antibiotic as prescribed. Continue wound care with DuoDERM dressings. There is no drainage from your previous recent surgical incisions. Follow-up with wound care as an outpatient. Return if worsening symptoms. Disposition Disposition: Home, Self Care Discharge Date/Time: 12/10/22 17:04
[2022-12-10 13:45] LABS: Absolute Lymphocyte Count 2.38 X10^3/uL (0.83-4.51); Absolute Neutrophil Count 5.8 X10^3/uL (2.0-7.7); Basophil# 0.05 X10^3/uL; Basophil% 0.6 % (0-1); Eosinophils% 1.1 % (0-5); Hematocrit 35.4 % (37-47); Hemoglobin 11.9 g/dL (12.0-15.0); Lymphocyte # 2.38 X10^3/ul (0.83-4.51); Lymphocyte % 26.5 % (19-41); Mean Corp Hgb Conc 33.6 g/dL (32-36); Mean Corpuscular Hgb 30.7 pg (27.0-32.0); Mean Corpuscular Volume 91.2 fL (81-99); Mean Platelet Vol. 9.3 fl (6.2-12.0); Monocyte# 0.51 X10^3/uL; Monocyte% 5.7 % (0-10); NRBC Flagged by Analyzer 0 % (0-5); Neutrophil # 5.84 X10^3/uL (2.7-7.7); Neutrophil % 65.1 % (47-70); Platelet Count 406 K/mm3 (150-450); RBC Distribution Width CV 15.8 % (11.6-14.6); RBC Distribution Width SD 52.1 fl (35.1-43.9); Red Blood Count 3.88 M/mm3 (4.2-5.4)
[2022-12-10 13:54] LABS: Erythrocyte Sedimentation Rate 15 mm/hr (0-30)
[2022-12-10 14:03] LABS: Anion Gap 8 (5-15); BUN 11 mg/dL (7-18); BUN/Creat Ratio 12.8 RATIO (10-20); Calcium,Total 8.4 mg/dL (8.5-10.1); Chloride 111 mmol/L (98-107); Creatinine, Serum 0.86 mg/dL (0.55-1.02); EST Glomerular Filtration Rate 71 mL/min (>60); Est Glom Filt Rate - Afr Amer 86 mL/min (>60); Estimated Creatinine Clearance 64.31 ml/min; Glucose 124 mg/dL (74-106); Potassium 3.7 mmol/L (3.5-5.1); Sodium Level 144 mmol/L (136-145)
[2022-12-10] MEDS: proMETHazine 25 MG/ML Syringe 12.5 MG IM (14:06)
[2022-12-10 15:42] VITALS: RESP 18
[2022-12-10] MEDS: Cephalexin 250 MG Capsule 500 MG PO (15:58)
== END 2022-12-10 17:04 | disposition home or self-care (01) ==
PROVIDERS: Emergency Provider Emergency Medicine; PCP Internal Medicine; Visit Provider Emergency Medicine
DX: L89.153 Pressure ulcer of sacral region, stage 3 (principal); G82.20 Paraplegia, unspecified; G95.20 Unspecified cord compression; J44.9 Chronic obstructive pulmonary disease, unspecified; E03.9 Hypothyroidism, unspecified; K21.9 Gastro-esophageal reflux disease without esophagitis; Z79.899 Other long term (current) drug therapy; F41.9 Anxiety disorder, unspecified; F17.210 Nicotine dependence, cigarettes, uncomplicated
CPT/HCPCS: 72193; 80048; 85025; 85652; 86140; 96361; 96372; 96374; 96375; 99284; J7030; Q9967; A4216; J2405

== ENCOUNTER 2023-01-09 14:30 | Outpatient (RCR) | payer MEDICARE, MEDICAID, SELFPAY ==
[2022-12-26 13:51] VITALS: BP 88/61; PULSE 125; RESP 16; TEMP 35.8
--- NOTE | 2022-12-26 16:15 | PCM.WC.HP ---
History of Present Illness Date of Service: 12/26/22 Chief Complaint: Left Ischial ulcer History of Wound: Patient is a 62 year old female who previously was a patient here and known to me, but had back surgery in early September 2022 at [facility] and then went to rehab at [facility] after that. She had a aurelia replaced in her back. Before her surgery, she was not able to lie flat due to increased pain, so she spent most of her time in her wheelchair. Now since her surgery, she is in too much back pain to sit in her wheelchair. She presents today with an ulcer to her left ischium that started several weeks ago. She was in the ED on 12/10/22 for increased wound drainage and was treated with Keflex, which she has completed. She does have home health to assist with dressing changes. She has lost 100 lbs since last being here in early September. She has been placing antibiotic ointment to the ulcer. Today she denies fever, chills, nausea or vomiting. She comes in today for further evaluation and treatment. Progress of Wound: Left ischial ulcer that is stage III. Vivi wound stable. A wound culture was obtained today.? A positive culture will necessitate antibiotic therapy. 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 Muscle weakness Neuromuscular scoliosis Other intervertebral disc degeneration, lumbar region Paraplegia Positive colorectal cancer screening using Cologuard test Primary generalized (osteo)arthritis Spinal stenosis, lumbar region without neurogenic claudication Weight loss Witnessed seizure-like activity Home Medications rrvwitqojddv-sxgsvgih-bwxsvp tablet (Cerovite Senior) 1 tab PO DAILY supplement 02/26/18 [History Last Taken 09/23/20] levothyroxine 150 mcg tablet 150 mcg PO DAILY thyroid 09/17/20 [History Last Taken 09/24/20] pantoprazole 40 mg tablet,delayed release 40 mg PO BID PRN stomach 09/17/20 [History Last Taken 09/24/20] acetaminophen 500 mg tablet 500 mg PO Q6H PRN Pain 1-10 Or Fever 10/08/20 [History Last Taken Unknown] albuterol sulfate 90 mcg/actuation aerosol inhaler 2 puff inhalation Q4H PRN PRN Sob &/Or Wheezing 10/08/20 [History Last Taken Unknown] betamethasone valerate 0.1 % topical cream 1 applic topical BID PRN skin irritation #15 grams 01/15/21 [Rx Last Taken Unknown] cetirizine 10 mg tablet 10 mg PO DAILY #30 tabs 01/15/21 [Rx Last Taken Unknown] hydrocolloid dressing 4 X 4 (DuoDERM CGF Adhesive Border Dressing) #5 ea 09/07/21 [Rx Last Taken Unknown] biotin 1 mg tablet 1 mg PO DAILY SUPPLEMENT 05/17/22 [History Last Taken Unknown] calcium citrate 250 mg PO DAILY SUPPLEMENT 05/17/22 [History Last Taken Unknown] cholecalciferol (vitamin D3) 25 mcg (1,000 unit) capsule 25 mcg PO DAILY SUPPLEMENT 05/17/22 [History Last Taken Unknown] cyanocobalamin (vitamin B-12) 1,000 mcg tablet 1,000 mcg PO DAILY SUPPLEMENT 05/17/22 [History Last Taken Unknown] ferrous sulfate 325 mg (65 mg iron) tablet 325 mg PO DAILY SUPPLEMENT 05/17/22 [History Last Taken Unknown] fluticasone propionate 50 mcg/actuation nasal spray,suspension 2 spray intranasal DAILY PRN ALLERGIES 05/17/22 [History Last Taken Unknown] mupirocin 2 % topical ointment 1 applic topical DAILY PRN Wound Care 05/17/22 [History Last Taken Unknown] gabapentin 300 mg capsule 300 mg PO BID 30 days #60 caps 05/19/22 [Rx Last Taken Unknown] dextran 70-hypromellose 0.1 %-0.3 % eye drops (Artificial Tears (dextran 70-hypromellose)) 1 drp ophthalmic (eye) TID 05/25/22 [History Last Taken Unknown] ipratropium 20 mcg-albuterol 100 mcg/actuation mist for inhalation (Combivent Respimat) 1 puff inhalation Q6H PRN copd 05/25/22 [History Last Taken Unknown] nystatin 100,000 unit/gram topical powder 1 applic topical BID 10 days #30 grams 07/08/22 [Rx Last Taken Unknown] sennosides 8.6 mg tablet (Senna Lax) 8.6 mg PO .QOD STOOL 08/25/22 [History Last Taken Unknown] ammonium lactate 5 % lotion (Lac-Hydrin Five) 1 applic topical BID 30 days #226 grams 09/05/22 [Rx Last Taken Unknown] lidocaine 5 % topical ointment 1 applic topical TID PRN pain #30 grams 10/10/22 [Rx Last Taken Unknown] valacyclovir 500 mg tablet (Valtrex) 500 mg PO DAILY Check with primary doctor #30 tabs 10/10/22 [Rx Last Taken Unknown] lorazepam 0.5 mg tablet 0.5 mg PO DAILY PRN Anxiety 12/01/22 [History Last Taken Unknown] methadone 5 mg tablet 5 mg PO BID 12/01/22 [History Last Taken Unknown] naloxone 4 mg/actuation nasal spray (Narcan) 1 spray intranasal Q2M 12/01/22 [History Last Taken Unknown] oxycodone-acetaminophen 10 mg-325 mg tablet (Percocet) 1 tab PO Q4H PRN Pain 12/01/22 [History Last Taken Unknown] cephalexin 500 mg capsule 500 mg PO Q6 #40 CAPSULES 12/10/22 [Rx Last Taken Unknown] amoxicillin 875 mg-potassium clavulanate 125 mg tablet 1 tab PO BID 14 days #28 tabs 12/29/22 [Rx Last Taken Unknown] Allergy/AdvReac Type Severity Reaction Status Date / Time NSAIDS (Non-Steroidal Allergy GASTRIC Verified 12/10/22 12:50 Anti-Inflamma BYPASS ondansetron [From Zofran] AdvReac Other Verified 12/26/22 14:05 trazodone AdvReac Other Verified 12/10/22 12:50 Family History (Reviewed 12/30/22 @ 13:36 by Ayanna Jameson [employer], [employer]) Father Diabetes Hypertension Myocardial infarction Alcoholism Brother Myocardial infarction Alcoholism Mother CVA (cerebral vascular accident) Surgical History H/O dilation and curettage H/O gastric bypass History of bilateral salpingo-oophorectomy History of cholecystectomy Hydradenitis S/P arthroscopic knee surgery S/P lumbar spine operation s/p nerve spine surgery s/p upper back surgery skin graft Social History (Reviewed 12/30/22 @ 13:36 by Ayanna Jameson [employer], [employer]) Smoking Status: Current every day smoker tobacco type: cigarettes alcohol intake: never substance use type: does not use caffeine: Yes what type of physical activity do you participate in: none seatbelt use: always do you feel safe at home: Yes additional social history: ROS Constitutional Constitutional: Reports change in weight, fatigue and weight loss; Denies fever(s) Eyes Eyes: Reports none ENT HEENT: Reports none Cardiovascular Cardiovascular: Denies chest pain or dyspnea Respiratory/Chest Respiratory/Chest: Denies cough or dyspnea Gastrointestinal Gastrointestinal: Reports nausea; Denies vomiting Genitourinary Genitourinary: Reports urinary incontinence Musculoskeletal Musculoskeletal: Reports back pain, deformity, extremity pain and stiffness Integumentary Integumentary: Reports skin ulcer Neurologic Neurologic: Denies confusion or dizziness Psychiatric Psychiatric: Reports systems reviewed and no addt'l complaints, except as documented and anxiety Endocrine Endocrinology: Reports systems reviewed and no addt'l complaints, except as documented Vital Signs Vital Signs Vital Signs: 12/26/22 13:51 Temperature 96.5 F L Temperature Source Temporal Pulse Rate 125 H Respiratory Rate 16 Blood Pressure 88/61 L Blood Pressure Mean 70 Blood Pressure Source Monitor Blood Pressure Position Sitting Blood Pressure Location Left Arm Oxygen Delivery Method Room Air Physical Exam Const alert and oriented x3 General Appearance: cooperative HEENT normocephalic Eyes General Eye: normal appearance of both eyes Lymph Lymphatic: no lymphedema noted Resp normal respiratory effort, normal air movement and clear to auscultation bilaterally Effort and Inspection: able to speak in complete sentences Cardio regular rate and regular rhythm GI normal to inspection, nondistended, normoactive bowel sounds and soft to palpation Back/Spine Thoracic Spine / Upper Back: ROM limited and pain with ROM Lumbar Spine / Lower Back: ROM limited and pain with ROM Extremity normal capillary refill Skin Wound Narrative: Left ischial ulcer ulcer, stage III, into the subcutaneous tissue. Ulcer is painful to palpation. Neuro oriented x3 Psych thought process normal and cooperative Debridement Note Debridement Note Wound debrided: Ischial ulcer Laterality: Left Wound Grade/Stage: Stage III Type of Debridement: Excisional debridement Anesthesia Used: 5% Lidocaine Gel Depth: Down to and including healthy tissue and in the subcutaneous layer Percentage of wound debrided: 100 Instrument Used: 5mm curette Tissue Removed: Devitalized tissue and slough Severity: Fat Layer Exposed Amount of bleeding with debridement: Mild Bleeding Controlled with: Compression and gauze Patient tolerated procedure: Patient tolerated procedure well Post-Debridement Measurements and Additional Note: Post-Debridement Measurements/Treatment - Nurse 1 - General Ulcer Assessment Start: 12/26/22 13:50 Freq: Status: Active Protocol: TAISHA Activity Type Activity Date Activity User E-sign Co-sign Detail Recorded Client Recorded Date Recorded By Document 12/26/22 13:51 [facility] [id number] 12/26/22 14:04 [facility] 12/26/22 13:51 - Today's Visit Information Type of service Initial Visit Arrival Mode Wheelchair Accompanied by daughter Patient Identification Verified (Name & Yes ) Patient Requires Transmission-Based No Precautions Vital Signs Temperature (97.8 F-99.1 F) 96.5 F L Temperature Source Temporal Pulse Rate (60-100) 125 H Pulse Location Monitor Respiratory Rate (12-18) 16 Respiratory rate source Observation Oxygen Delivery Method Room Air Blood Pressure (90/60-120/80) 88/61 L Blood Pressure Mean 70 Source Monitor Position Sitting Blood Pressure Location Left Arm History Since Last Visit- (Skip if this is Patient's initial visit) Left Footwear Slipper Right Footwear Slipper Pain Scale: 0-10 Numeric Is Patient Pain Free? No WOUND -Description Aching -Intensity 9 -Duration (hours) Acute -Pain Behavior No Change in Behavior -Pain Aggravating Factors Sitting -Alleviating Factors/Interventions Turning/ Repositioning, Distraction, Will continue to monitor, Patient denies need for intervention, Emotional Support [facility] Nurse 1 - General Ulcer Measurement Start: 12/26/22 13:50 Freq: Status: Active Protocol: Activity Type Activity Date Activity User E-sign Co-sign Detail Recorded Client Recorded Date Recorded By Document 12/26/22 13:51 [facility] [id number] 12/26/22 14:04 [facility] 12/26/22 13:51 Wound Center Nurse 1 #14- L SACRAL -Combined with other wound No -Current Size (cm) - Length 2.5 -Current Size (cm) - Width 2.3 -Current Size (cm) - Depth 1.1 -Total Square Cm 5.75 -Date of Last Picture (Recall this 12/26/22 field) -Photo Taken Yes -Epithelialization None Present -Tunneling No -Undermining/Tunneling Yes -Undermining/Tunneling Starts (O'clock 11 ) -Undermining/Tunneling Ends (O'clock) 12 -Maximum Distance (cm) 1.1 -Circular Undermining No -Exudate Amt Medium -Exudate Type Serosanguineous -Wound Margin Distinct, Outline Attached -Granulation Amt Medium (34-66%) -Granulation Quality Red -Slough/Fibrin Yes -Necrosis Amt Medium (34-66%) -Necrotic Tissue Type Adherent Slough -Texture (Vvii-wound Skin Appearance) Assessed, Scarring -Moisture (Vivi-wound Skin Appearance) Assessed -Color (Vivi-wound Skin Appearance) Assessed -Temperature (Vivi-wound Skin No Abnormality Appearance) (Pt Warm) -Tenderness on Palpation (Vivi-wound Yes Skin Appearance) -Ulcer Cleansing Soap and Water -Foul Odor after Cleansing No -Anesthetic Used 5% Lidocaine Gel WC - Nurse 2 - General Ulcer CM Notes Start: 12/26/22 13:50 Freq: Status: Active Protocol: Activity Type Activity Date Activity User E-sign Co-sign Detail Recorded Client Recorded Date Recorded By Document 12/26/22 14:30 ELLIE [id number] 12/26/22 14:36 ELLIE 12/26/22 14:30 Wound Center Nurse 2 -Time 14:30 -Correct Patient Yes -Correct Side, Site, Position Yes -Correct Procedure Yes -Procedure Performed Yes -Type of Procedure Debridement -Clinical Debridement Subcutaneous -Tissue Removed Subcutaneous -Post Debridement (cm) - Length 2.5 -Post Debridement (cm) - Width 2.0 -Post Debridement (cm) - Depth 0.7 -Total Square (Post) (cm) 5.00 -Area of Debridement (cm) - Length 2.5 -Area of Debridement (cm) - Width 2.0 -Total Square (Area) (cm) 5.00 -Tunneling No -Undermining/Tunneling Yes -Undermining/Tunneling Starts (O'clock 10 ) -Undermining/Tunneling Ends (O'clock) 2 -Maximum Distance (cm) 1.0 -Circular Undermining No -Wound/Ulcer Outcome Not Healed -Ulcer Cleansing Rinsed/ Irrigated with Saline -Foul Odor after Cleansing No -Bioengineered Tissue No -Bleeding Controlled with Pressure -Treatment Response Procedure Tolerated Well -Offloading No -Assistive Device(s) Wheelchair -Pressure Reduction Wheelchair cushion -Debridement - Subq, 1st 20sq cm Yes Pain Scale: 0-10 Numeric Is Patient Pain Free? Yes WC - Nurse 3 - General Ulcer D/C NN Start: 12/26/22 13:50 Freq: Status: Active Protocol: Activity Type Activity Date Activity User E-sign Co-sign Detail Recorded Client Recorded Date Recorded By Document 12/26/22 15:16 TORI [id number] 12/26/22 15:17 TORI 12/26/22 15:16 Wound Care Center Nurse 3 #14- L SACRAL -Ulcer Cleansing Rinsed/ Irrigated with Saline -Foul Odor after Cleansing No -Negative Pressure Wound Therapy N/A -Other Dressing DAKINS ABD Pain Scale: 0-10 Numeric Is Patient Pain Free? No WC - Visit Discharge Discharge Condition Stable Ambulatory Status Wheelchair Transportation Private Auto Accompanied by daughter Medication Reconcilliation completed & Yes provided to patient/care provider Clinical Summary of Care Provided Yes Charges/Coding Visit Charges Office Visits / Consults: 74049 OV L3 Est (25 modifier) Procedures Integumentary 111xxx-113xx: [id number] Shila subq tissue 20 sq cm/< Assessment/Plan Assessment/Plan (1) Decubitus ulcer of left perineal ischial region, stage 3: CODE(S): L89.323 - Pressure ulcer of left buttock, stage 3 (2) S/P laminectomy with spinal fusion: CODE(S): Z98.1 - Arthrodesis status (3) Tobacco use disorder: CODE(S): F17.200 - Nicotine dependence, unspecified, uncomplicated (4) Paraplegia: CODE(S): G82.20 - Paraplegia, unspecified (5) Weight loss, non-intentional: CODE(S): R63.4 - Abnormal weight loss PLAN: Plan Patient evaluated at the wound healing center today. Wound care - Dakins 0.25% moistened gauze covered with ABD daily after washing with soap and water. A wound culture was obtained today,12/26/22.? A positive culture will necessitate antibiotic therapy. Follow up one week.
--- NOTE | 2022-12-29 13:36 | WC ---
Called and spoke to patient regarding a new antibiotic for her positive wound cultures. Augmentin to be called into [facility] in [place]. Patient verbalized understanding.
[2023-01-09 13:54] VITALS: BP 96/91; PULSE 91; RESP 20; TEMP 35.4
--- NOTE | 2023-01-09 14:27 | PCM.WC.PN ---
History of Present Illness Date of Service: 01/09/23 Chief Complaint: Left Ischial ulcer History of Wound: Patient is a 62 year old female who previously was a patient here and known to me, but had back surgery in early September 2022 at [facility] and then went to rehab at [facility] after that. She had a aurelia replaced in her back. Before her surgery, she was not able to lie flat due to increased pain, so she spent most of her time in her wheelchair. Now since her surgery, she is in too much back pain to sit in her wheelchair. She presents today with an ulcer to her left ischium that started several weeks ago. She was in the ED on 12/10/22 for increased wound drainage and was treated with Keflex, which she has completed. She does have home health to assist with dressing changes. She has lost 100 lbs since last being here in early September. Wound care to left ischial ulcer is Dakin's moistened gauze covered with gauze/Isabella SAP dressing. She has a new skin tear lateral to ulcer, place adaptic and cover with gauze. Wound culture 12/26/22 positive for Proteus miriabilis, Enterococcus faecalis, Streptococcus agalactiae, Anaerobic cocci and Bacteroides fragilis. She is being treated with Augmentin. Today she denies fever, chills, nausea or vomiting. She comes in today for further evaluation and treatment. Progress of Wound: Left ischial ulcer that is stage III. She has a new superficial area on the lateral aspect of ulcer, most likely caused by tape. She states she is tolerating the antibiotics well that she was started on for treatment of her positive wound culture. Objective Data Objective Data Vital Signs: Vital Signs Temp Pulse Resp BP O2 Del Method 95.8 F L 91 20 H 96/91 H Room Air 01/09/23 13:54 01/09/23 13:54 01/09/23 13:54 01/09/23 13:54 12/26/22 13:51 Oxygen Delivery Method Room Air Lab / Micro Data Micro: Microbiology 12/26/22 14:33 Wound Abcess - Sacral Gram Stain - Final 12/26/22 14:33 Wound Abcess - Sacral Wound Culture - Final Proteus mirabilis Enterococcus faecalis Streptococcus agalactiae (B) 12/26/22 14:33 Wound Abcess - Sacral Anaerobic Culture - Final Anaerobic cocci Bacteroides fragilis Charges/Coding Procedures Integumentary 111xxx-113xx: 59118 Shila subq tissue 20 sq cm/< Debridement Note Debridement Note Wound debrided: Ischial ulcer Laterality: Left Wound Grade/Stage: Stage III Type of Debridement: Excisional debridement Anesthesia Used: 5% Lidocaine Gel Depth: Down to and including healthy tissue and in the subcutaneous layer Percentage of wound debrided: 100 Instrument Used: 5mm curette Tissue Removed: Devitalized tissue and slough Severity: Fat Layer Exposed Amount of bleeding with debridement: Mild Bleeding Controlled with: Compression and gauze Patient tolerated procedure: Patient tolerated procedure well Post-Debridement Measurements and Additional Note: Post-Debridement Measurements/Treatment - Nurse 1 - General Ulcer Assessment Start: 12/26/22 13:50 Freq: Status: Active Protocol: TAISHA Activity Type Activity Date Activity User E-sign Co-sign Detail Recorded Client Recorded Date Recorded By Document 12/26/22 13:51 [facility] [id number] 12/26/22 14:04 [facility] Document 01/09/23 13:54 DL [id number] 01/09/23 14:13 DL 12/26/22 01/09/23 13:51 13:54 - Today's Visit Information Type of service Initial Visit Follow-up Visit (Physician/DIRECTOR OF CATEGORY MANAGEMENT ) Arrival Mode Wheelchair Wheelchair Transfer Assistance Manual Transfer Assist (Other) x2 Accompanied by daughter Patient Identification Verified (Name & Yes Yes ) Patient Requires Transmission-Based No No Precautions Finger Stick Blood Sugar(mg/dl) (if didnt check indicated): Blood Sugar Stated by Patient Vital Signs Temperature (97.8 F-99.1 F) 96.5 F L 95.8 F L Temperature Source Temporal Temporal Pulse Rate (60-100) 125 H 91 Pulse Location Monitor Monitor Respiratory Rate (12-18) 16 20 H Respiratory rate source Observation Observation Oxygen Delivery Method Room Air Blood Pressure (90/60-120/80) 88/61 L 96/91 H Blood Pressure Mean (mm Hg) 70 92 Source Monitor Monitor Position Sitting Blood Pressure Location Left Arm History Since Last Visit- (Skip if this is Patient's initial visit) Have you changed medications since your No last visit? Any new allergies or adverse reactions No Had a fall/change in ADL's that may No increase risk of falls Signs or symptoms of abuse and/or No neglect since last visit Have you been in the hospital since your No last visit? Has dressing in place as prescribed Yes Has compression in place as prescribed N/A Has offloadiing in place as prescribed Yes Experienced any changes in pain level or No management Left Footwear Slipper Right Footwear Slipper Pain Scale: 0-10 Numeric Is Patient Pain Free? No Yes WOUND -Description Aching -Intensity 9 -Duration (hours) Acute -Pain Behavior No Change in Behavior -Pain Aggravating Factors Sitting -Alleviating Factors/Interventions Turning/ Repositioning, Distraction, Will continue to monitor, Patient denies need for intervention, Emotional Support WC - Nurse 1 - General Ulcer Measurement Start: 12/26/22 13:50 Freq: Status: Active Protocol: Activity Type Activity Date Activity User E-sign Co-sign Detail Recorded Client Recorded Date Recorded By Document 12/26/22 13:51 [facility] [id number] 12/26/22 14:04 [facility] Document 01/09/23 13:54 DL [id number] 01/09/23 14:13 DL 12/26/22 01/09/23 13:51 13:54 Wound Center Nurse 1 #15 L Buttocks -Current Size (cm) - Length 0.9 -Current Size (cm) - Width 1.3 -Current Size (cm) - Depth 0.1 -Total Square Cm 1.17 -Photo Taken Yes -Exudate Amt Small -Exudate Type Serosanguineous -Wound Margin Distinct, Outline Attached -Granulation Amt Large (67-100%) -Granulation Quality [place] -Necrosis Amt Small (1-33%) -Necrotic Tissue Type Adherent Slough -Structure Exposed N/A -Texture (Vivi-wound Skin Appearance) Scarring -Moisture (Vivi-wound Skin Appearance) No Abnormality -Color (Vivi-wound Skin Appearance) No Abnormality -Ulcer Cleansing Rinsed/ Irrigated with Saline -Foul Odor after Cleansing No -Anesthetic Used 5% Lidocaine Gel #14- L SACRAL -Combined with other wound No -Current Size (cm) - Length 2.5 2.5 -Current Size (cm) - Width 2.3 25 -Current Size (cm) - Depth 1.1 0.8 -Total Square Cm 5.75 62.5 -Date of Last Picture (Recall this 12/26/22 field) -Photo Taken Yes Yes -Epithelialization None Present -Tunneling No -Undermining/Tunneling Yes -Undermining/Tunneling Starts (O'clock 11 ) -Undermining/Tunneling Ends (O'clock) 12 -Maximum Distance (cm) 1.1 -Circular Undermining No -Exudate Amt Medium Medium -Exudate Type Serosanguineous Serosanguineous -Wound Margin Distinct, Distinct, Outline Outline Attached Attached -Granulation Amt Medium (34-66%) Large (67-100%) -Granulation Quality Red Red -Slough/Fibrin Yes -Necrosis Amt Medium (34-66%) Small (1-33%) -Necrotic Tissue Type Adherent Slough Adherent Slough -Structure Exposed N/A -Texture (Vivi-wound Skin Appearance) Assessed, Scarring Scarring -Moisture (Vivi-wound Skin Appearance) Assessed No Abnormality -Color (Vivi-wound Skin Appearance) Assessed No Abnormality -Temperature (Vivi-wound Skin No Abnormality No Abnormality Appearance) (Pt Warm) (Pt Warm) -Tenderness on Palpation (Vivi-wound Yes Yes Skin Appearance) -Ulcer Cleansing Soap and Water Rinsed/ Irrigated with Saline -Foul Odor after Cleansing No No -Anesthetic Used 5% Lidocaine 5% Lidocaine Gel Gel WC - Nurse 2 - General Ulcer CM Notes Start: 12/26/22 13:50 Freq: Status: Active Protocol: Activity Type Activity Date Activity User E-sign Co-sign Detail Recorded Client Recorded Date Recorded By Document 12/26/22 14:30 [id number] 12/26/22 14:36 ELLIE 12/26/22 14:30 Wound Center Nurse 2 -Time 14:30 -Correct Patient Yes -Correct Side, Site, Position Yes -Correct Procedure Yes -Procedure Performed Yes -Type of Procedure Debridement -Clinical Debridement Subcutaneous -Tissue Removed Subcutaneous -Post Debridement (cm) - Length 2.5 -Post Debridement (cm) - Width 2.0 -Post Debridement (cm) - Depth 0.7 -Total Square (Post) (cm) 5.00 -Area of Debridement (cm) - Length 2.5 -Area of Debridement (cm) - Width 2.0 -Total Square (Area) (cm) 5.00 -Tunneling No -Undermining/Tunneling Yes -Undermining/Tunneling Starts (O'clock 10 ) -Undermining/Tunneling Ends (O'clock) 2 -Maximum Distance (cm) 1.0 -Circular Undermining No -Wound/Ulcer Outcome Not Healed -Ulcer Cleansing Rinsed/ Irrigated with Saline -Foul Odor after Cleansing No -Bioengineered Tissue No -Bleeding Controlled with Pressure -Treatment Response Procedure Tolerated Well -Offloading No -Assistive Device(s) Wheelchair -Pressure Reduction Wheelchair cushion -Debridement - Subq, 1st 20sq cm Yes Pain Scale: 0-10 Numeric Is Patient Pain Free? Yes WC - Nurse 3 - General Ulcer D/C NN Start: 12/26/22 13:50 Freq: Status: Active Protocol: Activity Type Activity Date Activity User E-sign Co-sign Detail Recorded Client Recorded Date Recorded By Document 12/26/22 15:16 TORI [id number] 12/26/22 15:17 TORI 12/26/22 15:16 Wound Care Center Nurse 3 #14- L SACRAL -Ulcer Cleansing Rinsed/ Irrigated with Saline -Foul Odor after Cleansing No -Negative Pressure Wound Therapy N/A -Other Dressing DAKINS ABD Pain Scale: 0-10 Numeric Is Patient Pain Free? No WC - Visit Discharge Discharge Condition Stable Ambulatory Status Wheelchair Transportation Private Auto Accompanied by daughter Medication Reconcilliation completed & Yes provided to patient/care provider Clinical Summary of Care Provided Yes Assessment/Plan Assessment/Plan (1) Decubitus ulcer of left perineal ischial region, stage 3: CODE(S): L89.323 - Pressure ulcer of left buttock, stage 3 (2) S/P laminectomy with spinal fusion: CODE(S): Z98.1 - Arthrodesis status (3) Tobacco use disorder: CODE(S): F17.200 - Nicotine dependence, unspecified, uncomplicated (4) Paraplegia: CODE(S): G82.20 - Paraplegia, unspecified (5) Weight loss, non-intentional: CODE(S): R63.4 - Abnormal weight loss PLAN: Plan Patient evaluated at the wound healing center today. Wound care - Dakins 0.25% moistened gauze covered with gauze and Isabella SAP daily after washing with soap and water. Wound culture 12/26/22 positive for Proteus miriabilis, Enterococcus faecalis, Streptococcus agalactiae, Anaerobic cocci and Bacteroides fragilis. She is being treated with Augmentin. Follow up two weeks.
== END 2023-01-20 23:59 | disposition home or self-care (01) ==
LOC: WC 14:30
PROVIDERS: PCP Internal Medicine; Referring Provider Obstetrics & Gynecology; Visit Provider Nurse Practitioner Family
DX: L89.223 Pressure ulcer of left hip, stage 3 (principal); G82.20 Paraplegia, unspecified; J44.9 Chronic obstructive pulmonary disease, unspecified; Z98.1 Arthrodesis status; D64.9 Anemia, unspecified; F41.1 Generalized anxiety disorder; R63.4 Abnormal weight loss; G89.29 Other chronic pain; Z79.899 Other long term (current) drug therapy; F32.9 Major depressive disorder, single episode, unspecified; K21.9 Gastro-esophageal reflux disease without esophagitis; F17.210 Nicotine dependence, cigarettes, uncomplicated
CPT/HCPCS: 11042; 87070; 87075; 87077; 87186; 87205; 99213; G0463

== ENCOUNTER 2023-01-20 14:49 | Outpatient (RCR) | payer MEDICARE, MEDICAID, SELFPAY ==
[2023-01-20 16:26] LABS: Hematocrit 40.2 % (37-47); Hemoglobin 12.6 g/dL (12.0-15.0); Mean Corp Hgb Conc 31.3 g/dL (32-36); Mean Corpuscular Hgb 30.4 pg (27.0-32.0); Mean Corpuscular Volume 96.9 fL (81-99); Mean Platelet Vol. 11.8 fl (6.2-12.0); Platelet Count 233 K/mm3 (150-450); RBC Distribution Width CV 15.7 % (11.6-14.6); RBC Distribution Width SD 55.9 fl (35.1-43.9); Red Blood Count 4.15 M/mm3 (4.2-5.4); White Blood Count 7.6 K/mm3 (4.4-11.0)
[2023-01-20 16:37] LABS: Anion Gap 7 (5-15); BUN 12 mg/dL (7-18); BUN/Creat Ratio 13.7 RATIO (10-20); Calcium,Total 9.6 mg/dL (8.5-10.1); Chloride 112 mmol/L (98-107); Creatinine, Serum 0.88 mg/dL (0.55-1.02); EST Glomerular Filtration Rate 69 mL/min (>60); Est Glom Filt Rate - Afr Amer 84 mL/min (>60); Glucose 133 mg/dL (74-106); Potassium 4.6 mmol/L (3.5-5.1); Sodium Level 139 mmol/L (136-145)
== END 2023-01-20 23:59 ==
LOC: LABSPEC 14:49
PROVIDERS: PCP Internal Medicine
DX: L89.323 Pressure ulcer of left buttock, stage 3 (principal); G82.20 Paraplegia, unspecified; M48.061 Spinal stenosis, lumbar region without neurogenic claudication
CPT/HCPCS: 80048; 85027

== ENCOUNTER 2023-01-23 13:59 | Outpatient (RCR) | payer MEDICARE, MEDICAID, SELFPAY ==
[2023-01-21 00:18] VITALS: BP 96/91; PULSE 91; RESP 20; TEMP 35.4
[2023-01-23 14:18] VITALS: BP 95/51; PULSE 87; RESP 16; TEMP 36.6
--- NOTE | 2023-01-23 15:03 | PCM.WC.PN ---
History of Present Illness Date of Service: 01/23/23 Chief Complaint: Left Ischial ulcer History of Wound: Patient is a 62 year old female who previously was a patient here and known to me, but had back surgery in early September 2022 at [facility] and then went to rehab at [facility] after that. She had a aurelia replaced in her back. Before her surgery, she was not able to lie flat due to increased pain, so she spent most of her time in her wheelchair. Now since her surgery, she is in too much back pain to sit in her wheelchair. She presents today with an ulcer to her left ischium that started several weeks ago. She was in the ED on 12/10/22 for increased wound drainage and was treated with Keflex, which she has completed. She does have home health to assist with dressing changes. She has lost 100 lbs since last being here in early September. Wound care to left ischial ulcer is Dakin's moistened gauze covered with gauze/[place] SAP dressing. She has a new skin tear lateral to ulcer, place adaptic and cover with gauze. Wound culture 12/26/22 positive for Proteus miriabilis, Enterococcus faecalis, Streptococcus agalactiae, Anaerobic cocci and Bacteroides fragilis. She is being treated with Augmentin. Today she denies fever, chills, nausea or vomiting. She comes in today for further evaluation and treatment. Progress of Wound: Left ischial ulcer that is stage III. It is larger with undermining and is causing her much discomfort with increase in undermining from 9-3 o'clock. A wound culture was obtained today. The newer superficial area on the lateral aspect of ulcer call the left buttocks ulcer is healed today. Objective Data Objective Data Vital Signs: Vital Signs Temp Pulse Resp BP O2 Del Method 97.9 F 87 16 95/51 L Room Air 01/23/23 14:18 01/23/23 14:18 01/23/23 14:18 01/23/23 14:18 01/23/23 14:18 Oxygen Delivery Method Room Air Charges/Coding Procedures Integumentary 111xxx-113xx: 11863 Shila subq tissue 20 sq cm/< Debridement Note Debridement Note Wound debrided: Ischial ulcer Laterality: Left Wound Grade/Stage: Stage III Type of Debridement: Excisional debridement Anesthesia Used: 5% Lidocaine Gel Depth: Down to and including healthy tissue and in the subcutaneous layer Percentage of wound debrided: 100 Instrument Used: 5mm curette Tissue Removed: Devitalized tissue and slough Severity: Fat Layer Exposed Amount of bleeding with debridement: Mild Bleeding Controlled with: Compression and gauze Patient tolerated procedure: Patient tolerated procedure well Post-Debridement Measurements and Additional Note: Post-Debridement Measurements/Treatment SCOTTY - Nurse 1 - General Ulcer Assessment Start: 01/23/23 14:16 Freq: Status: Active Protocol: TAISHA Activity Type Activity Date Activity User E-sign Co-sign Detail Recorded Client Recorded Date Recorded By Document 01/23/23 14:18 MW [id number] 01/23/23 14:30 MW 01/23/23 14:18 WC - Today's Visit Information Type of service Follow-up Visit (Physician/CARE TECH ) Arrival Mode Wheelchair Transfer Assistance Manual Accompanied by daughter Patient Identification Verified (Name & Yes ) Patient Requires Transmission-Based No Precautions Safety Precautions Fall Prevention Vital Signs Temperature (97.8 F-99.1 F) 97.9 F Temperature Source Temporal Pulse Rate (60-100) 87 Pulse Location Monitor Respiratory Rate (12-18) 16 Respiratory rate source Observation Oxygen Delivery Method Room Air Blood Pressure (90/60-120/80) 95/51 L Blood Pressure Mean (mm Hg) 65 Source Monitor Position Supine Blood Pressure Location Left Arm History Since Last Visit- (Skip if this is Patient's initial visit) Have you changed medications since your No last visit? Any new allergies or adverse reactions No Had a fall/change in ADL's that may No increase risk of falls Signs or symptoms of abuse and/or No neglect since last visit Have you been in the hospital since your No last visit? Has dressing in place as prescribed Yes Has compression in place as prescribed N/A Has offloadiing in place as prescribed N/A Experienced any changes in pain level or No management Left Footwear Slipper Right Footwear Slipper Pain Scale: 0-10 Numeric Is Patient Pain Free? Yes Gabbie Nurse 1 - General Ulcer Measurement Start: 01/23/23 14:16 Freq: Status: Active Protocol: Activity Type Activity Date Activity User E-sign Co-sign Detail Recorded Client Recorded Date Recorded By Document 01/23/23 14:18 MW [id number] 01/23/23 14:30 MW 01/23/23 14:18 Wound Center Nurse 1 #15 L Buttocks -Combined with other wound No -Current Size (cm) - Length 0.3 -Current Size (cm) - Width 0.3 -Current Size (cm) - Depth 0.1 -Total Square Cm 0.09 -Date of Last Picture (Recall this 01/23/23 field) -Photo Taken Yes -Epithelialization Small 1-33% -Tunneling No -Undermining/Tunneling No -Circular Undermining No -Exudate Amt Small -Exudate Type Serous -Wound Margin Flat & Intact -Granulation Amt Medium (34-66%) -Granulation Quality [place] -Slough/Fibrin Yes -Necrosis Amt Small (1-33%) -Necrotic Tissue Type Adherent Slough -Structure Exposed N/A -Texture (Vivi-wound Skin Appearance) Assessed, Scarring -Moisture (Vivi-wound Skin Appearance) No Abnormality, Assessed -Color (Vivi-wound Skin Appearance) No Abnormality, Assessed -Temperature (Vivi-wound Skin No Abnormality Appearance) (Pt Warm) -Tenderness on Palpation (Vivi-wound Yes Skin Appearance) -Ulcer Cleansing Soap and Water -Foul Odor after Cleansing No -Anesthetic Used 5% Lidocaine Gel #14- L SACRAL -Combined with other wound No -Current Size (cm) - Length 2.5 -Current Size (cm) - Width 1.5 -Current Size (cm) - Depth 0.6 -Total Square Cm 3.75 -Date of Last Picture (Recall this 01/23/23 field) -Photo Taken Yes -Epithelialization Small 1-33% -Tunneling No -Undermining/Tunneling No -Circular Undermining No -Exudate Amt Medium -Exudate Type Serosanguineous -Wound Margin Distinct, Outline Attached -Granulation Amt Large (67-100%) -Granulation Quality Red -Slough/Fibrin Yes -Necrosis Amt Small (1-33%) -Necrotic Tissue Type Adherent Slough -Structure Exposed N/A -Texture (Vivi-wound Skin Appearance) Assessed, Scarring -Moisture (Vivi-wound Skin Appearance) No Abnormality, Assessed -Color (Vivi-wound Skin Appearance) No Abnormality, Assessed -Temperature (Vivi-wound Skin No Abnormality Appearance) (Pt Warm) -Tenderness on Palpation (Vivi-wound No Skin Appearance) -Ulcer Cleansing Soap and Water -Foul Odor after Cleansing No -Anesthetic Used 5% Lidocaine Gel Lower Limb Edema Present No WC - Nurse 2 - General Ulcer CM Notes Start: 01/23/23 14:16 Freq: Status: Active Protocol: Activity Type Activity Date Activity User E-sign Co-sign Detail Recorded Client Recorded Date Recorded By Document 01/23/23 14:55 ELLIE [id number] 01/23/23 14:57 ELLIE 01/23/23 14:55 Wound Center Nurse 2 #15 L Buttocks -Time 14:55 -Correct Patient No -Correct Side, Site, Position No -Correct Procedure No -Procedure Performed No -Post Debridement (cm) - Length 0 -Post Debridement (cm) - Width 0 -Post Debridement (cm) - Depth 0 -Total Square (Post) (cm) 0 -Area of Debridement (cm) - Length 0 -Area of Debridement (cm) - Width 0 -Total Square (Area) (cm) 0 -Undermining/Tunneling No -Circular Undermining No -Wound/Ulcer Outcome Healed- Epithelialized -Pressure Reduction Wheelchair cushion -Debridement - Subq, 20sq cm No #14- L SACRAL -Time 14:55 -Correct Patient Yes -Correct Side, Site, Position Yes -Correct Procedure Yes -Procedure Performed Yes -Type of Procedure Debridement -Clinical Debridement Subcutaneous -Tissue Removed Subcutaneous -Post Debridement (cm) - Length 3.0 -Post Debridement (cm) - Width 2.5 -Post Debridement (cm) - Depth 1.2 -Total Square (Post) (cm) 7.50 -Area of Debridement (cm) - Length 3.0 -Area of Debridement (cm) - Width 2.5 -Total Square (Area) (cm) 7.50 -Tunneling No -Undermining/Tunneling Yes -Undermining/Tunneling Starts (O'clock 9 ) -Undermining/Tunneling Ends (O'clock) 3 -Maximum Distance (cm) 1.6 -Circular Undermining No -Wound/Ulcer Outcome Not Healed -Ulcer Cleansing Rinsed/ Irrigated with Saline -Foul Odor after Cleansing No -Bioengineered Tissue No -Bleeding Controlled with Pressure -Treatment Response Procedure Tolerated Well -Offloading No -Pressure Reduction Wheelchair cushion -Debridement - Subq, 1st 20sq cm Yes Pain Scale: 0-10 Numeric Is Patient Pain Free? Yes Assessment/Plan Assessment/Plan (1) Decubitus ulcer of left perineal ischial region, stage 3: CODE(S): L89.323 - Pressure ulcer of left buttock, stage 3 (2) S/P laminectomy with spinal fusion: CODE(S): Z98.1 - Arthrodesis status (3) Tobacco use disorder: CODE(S): F17.200 - Nicotine dependence, unspecified, uncomplicated (4) Paraplegia: CODE(S): G82.20 - Paraplegia, unspecified (5) Weight loss, non-intentional: CODE(S): R63.4 - Abnormal weight loss PLAN: Plan Patient evaluated at the wound healing center today. Wound care - Dakins 0.25% moistened gauze covered with gauze and [place] SAP or ABD daily after washing with soap and water. Wound culture 12/26/22 positive for Proteus miriabilis, Enterococcus faecalis, Streptococcus agalactiae, Anaerobic cocci and Bacteroides fragilis. She is being treated with Augmentin. New wound culture was obtained today 01/23/23.? A positive culture will necessitate a change in antibiotic therapy. Stressed importance of not sitting or laying on her ischial area for long periods of time. Follow up three weeks, since it is difficult for her to get transportation. Will call her with her wound culture results.
== END 2023-02-20 23:59 | disposition home or self-care (01) ==
LOC: WC 13:59
PROVIDERS: PCP Internal Medicine; Referring Provider Obstetrics & Gynecology; Visit Provider Nurse Practitioner Family
DX: L89.223 Pressure ulcer of left hip, stage 3 (principal); G82.20 Paraplegia, unspecified; Z98.1 Arthrodesis status; F17.200 Nicotine dependence, unspecified, uncomplicated; R63.4 Abnormal weight loss
CPT/HCPCS: 11042; 87070; 87075; 87077; 87186; 87205

== ENCOUNTER 2023-04-03 10:22 | Outpatient (RCR) | payer MEDICARE, MEDICAID, SELFPAY ==
[2023-02-21 00:11] VITALS: BP 95/51; PULSE 87; RESP 16; TEMP 36.6
[2023-04-03 10:37] VITALS: BP 97/61; PULSE 95; RESP 18
--- NOTE | 2023-04-03 12:47 | PN.PCM_ITS ---
History of Present Illness Date of Service: 04/03/23 Chief Complaint: Left Ischial ulcer History of Wound: Patient is a 62 year old female who previously was a patient here and known to me, but had back surgery in early September 2022 at [facility] and then went to rehab at [facility] after that. She had a aurelia replaced in her back. Before her surgery, she was not able to lie flat due to increased pain, so she spent most of her time in her wheelchair. Now since her surgery, she is in too much back pain to sit in her wheelchair. She presents today with an ulcer to her left ischium that started several weeks ago. She was in the ED on 12/10/22 for increased wound drainage and was treated with Keflex, which she has completed. She does have home health to assist with dressing changes. She has lost 100 lbs since last being here in early September. Wound care to left ischial ulcer is Dakin's moistened gauze covered with gauze/Benton SAP dressing. She has a new skin tear lateral to ulcer, place adaptic and cover with gauze. Wound culture 12/26/22 positive for Proteus miriabilis, Enterococcus faecalis, Streptococcus agalactiae, Anaerobic cocci and Bacteroides fragilis. She is being treated with Augmentin. Today she denies fever, chills, nausea or vomiting. She comes in today for further evaluation and treatment. Progress of Wound: Left ischial ulcer that is stage III. It is larger with undermining and is causing her much discomfort with increase in undermining from 9-3 o'clock. A wound culture was obtained today. The superficial area on the lateral aspect of ulcer call the buttocks ulcer is healed today. Objective Data Objective Data Vital Signs: Vital Signs Temp Pulse Resp BP O2 Del Method 97.9 F 95 18 97/61 Room Air 02/21/23 00:11 04/03/23 10:37 04/03/23 10:37 04/03/23 10:37 04/03/23 10:37 Oxygen Delivery Method Room Air Charges/Coding Procedures Integumentary 111xxx-113xx: 41653 Shila musc/fascia 20 sq cm/< Debridement Note Debridement Note Wound debrided: Ischial ulcer Laterality: Left Wound Grade/Stage: Stage III Type of Debridement: Excisional debridement Anesthesia Used: 5% Lidocaine Gel Depth: Down to and including healthy tissue, in the subcutaneous layer and to muscle Percentage of wound debrided: 100 Instrument Used: 5mm curette Tissue Removed: Devitalized tissue and slough into the muscle Severity: Fat Layer Exposed Amount of bleeding with debridement: Mild Bleeding Controlled with: Compression and gauze Patient tolerated procedure: Patient tolerated procedure well Post-Debridement Measurements and Additional Note: Post-Debridement Measurements/Treatment - Nurse 1 - General Ulcer Assessment Start: 04/03/23 10:37 Freq: Status: Active Protocol: TAISHA Activity Type Activity Date Activity User E-sign Co-sign Detail Recorded Client Recorded Date Recorded By Document 04/03/23 10:37 [id number] 04/03/23 10:39 04/03/23 10:37 - Today's Visit Information Type of service Initial Visit Arrival Mode Wheelchair Transfer Assist (Other) nurses Patient Identification Verified (Name & Yes ) Vital Signs Pulse Rate (60-100) 95 Pulse Location Monitor Respiratory Rate (12-18) 18 Respiratory rate source Observation Oxygen Delivery Method Room Air Blood Pressure (90/60-120/80) 97/61 Blood Pressure Mean (mm Hg) 73 Source Monitor Position Left Lateral Blood Pressure Location Right Arm History Since Last Visit- (Skip if this is Patient's initial visit) Have you changed medications since your No last visit? Any new allergies or adverse reactions No Had a fall/change in ADL's that may No increase risk of falls Signs or symptoms of abuse and/or No neglect since last visit Have you been in the hospital since your No last visit? Has dressing in place as prescribed Yes Has compression in place as prescribed N/A Has offloadiing in place as prescribed N/A Experienced any changes in pain level or No management Left Footwear Slipper Right Footwear Slipper Pain Scale: 0-10 Numeric Is Patient Pain Free? Yes - Nurse 1 - General Ulcer Measurement Start: 04/03/23 10:37 Freq: Status: Active Protocol: Activity Type Activity Date Activity User E-sign Co-sign Detail Recorded Client Recorded Date Recorded By Document 04/03/23 10:37 [id number] 04/03/23 10:39 04/03/23 10:37 Wound Center Nurse 1 #15 L Buttocks -Current Size (cm) - Length 0.1 -Current Size (cm) - Width 0.1 -Current Size (cm) - Depth 0.1 -Total Square Cm 0.01 #14- L SACRAL -Current Size (cm) - Length 1.7 -Current Size (cm) - Width 2.7 -Current Size (cm) - Depth 0.8 -Total Square Cm 4.59 -Exudate Amt Small -Exudate Type Serosanguineous -Wound Margin Distinct, Outline Attached -Granulation Amt Medium (34-66%) -Granulation Quality Red -Necrosis Amt Small (1-33%) -Necrotic Tissue Type Adherent Slough -Texture (Vivi-wound Skin Appearance) Assessed -Moisture (Vivi-wound Skin Appearance) Assessed -Color (Vivi-wound Skin Appearance) Assessed -Temperature (Vivi-wound Skin No Abnormality Appearance) (Pt Warm) -Ulcer Cleansing Rinsed/ Irrigated with Saline -Anesthetic Used 5% Lidocaine Gel WC - Nurse 2 - General Ulcer CM Notes Start: 04/03/23 10:37 Freq: Status: Active Protocol: Activity Type Activity Date Activity User E-sign Co-sign Detail Recorded Client Recorded Date Recorded By Document 04/03/23 10:51 ELLIE [id number] 04/03/23 11:00 ELLIE 04/03/23 10:51 Wound Center Nurse 2 -Time 10:53 -Correct Patient Yes -Correct Side, Site, Position Yes -Correct Procedure Yes -Procedure Performed Yes -Type of Procedure Debridement -Clinical Debridement Muscle / Fascia -Tissue Removed Muscle -Post Debridement (cm) - Length 2.3 -Post Debridement (cm) - Width 2.5 -Post Debridement (cm) - Depth 0.3 -Total Square (Post) (cm) 5.75 -Area of Debridement (cm) - Length 2.3 -Area of Debridement (cm) - Width 2.5 -Total Square (Area) (cm) 5.75 -Tunneling No -Undermining/Tunneling Yes -Undermining/Tunneling Starts (O'clock 12 ) -Undermining/Tunneling Ends (O'clock) 5 -Maximum Distance (cm) 1.3 -Circular Undermining No -Wound/Ulcer Outcome Not Healed -Ulcer Cleansing Rinsed/ Irrigated with Saline -Foul Odor after Cleansing No -Bioengineered Tissue No -Bleeding Controlled with Pressure -Treatment Response Procedure Tolerated Well -Offloading No -Pressure Reduction Wheelchair cushion -Debridement - Muscle / Fascia, 1st Yes 20sq cm Pain Scale: 0-10 Numeric Is Patient Pain Free? Yes - Nurse 3 - General Ulcer D/C NN Start: 04/03/23 10:37 Freq: Status: Active Protocol: Activity Type Activity Date Activity User E-sign Co-sign Detail Recorded Client Recorded Date Recorded By Document 04/03/23 11:21 [id number] 04/03/23 11:24 RB 04/03/23 11:21 Wound Care Center Nurse 3 #14- L SACRAL -Ulcer Cleansing Rinsed/ Irrigated with Saline -Primary Dressing Applied Hysept ($), Mepilex Border -Other Dressing dakins moistened gauze -Mepilex Border 1 Treatment Response Procedure Tolerated Well Pain Scale: 0-10 Numeric Is Patient Pain Free? Yes WC - Visit Discharge Discharge Condition Stable Ambulatory Status Wheelchair Transportation Private Auto Medication Reconcilliation completed & No provided to patient/care provider Clinical Summary of Care Provided Yes Assessment/Plan Assessment/Plan (1) Decubitus ulcer of left perineal ischial region, stage 3: CODE(S): L89.323 - Pressure ulcer of left buttock, stage 3 (2) S/P laminectomy with spinal fusion: CODE(S): Z98.1 - Arthrodesis status (3) Tobacco use disorder: CODE(S): F17.200 - Nicotine dependence, unspecified, uncomplicated (4) Paraplegia: CODE(S): G82.20 - Paraplegia, unspecified (5) Weight loss, non-intentional: CODE(S): R63.4 - Abnormal weight loss PLAN: Plan Patient evaluated at the wound healing center today. Wound care - Dakins 0.25% moistened gauze covered with gauze and Benton SAP or ABD daily after washing with soap and water. Wound culture 12/26/22 positive for Proteus miriabilis, Enterococcus faecalis, Streptococcus agalactiae, Anaerobic cocci and Bacteroides fragilis. She is being treated with Augmentin. New wound culture was obtained today 01/23/23.? A positive culture will necessitate a change in antibiotic therapy. A wound culture was obtained today, 04/03/23.? A positive culture will necessitate antibiotic therapy. Stressed importance of not sitting or laying on her ischial area for long periods of time. Follow up three weeks. Will call her with her wound culture results.
--- NOTE | 2023-04-07 09:29 | WC ---
Received a call from Ayanna Jameson that she called in Augmentin to patient's pharmacy due to positive wound cultures. Called and spoke to patient about this and she is aware of new order. I also strongly encouraged her that when her wound gets dressed, the nurse is cleaning it with soap and water especially based on her bacteria that grew from her culture. She verbalized understanding.
== END 2023-04-22 23:59 | disposition home or self-care (01) ==
LOC: WC 10:22
PROVIDERS: PCP Internal Medicine; Referring Provider Obstetrics & Gynecology; Visit Provider Nurse Practitioner Family
DX: L89.223 Pressure ulcer of left hip, stage 3 (principal); G82.20 Paraplegia, unspecified; Z98.1 Arthrodesis status; F17.200 Nicotine dependence, unspecified, uncomplicated; R63.4 Abnormal weight loss
CPT/HCPCS: 11043; 87070; 87075; 87077; 87186; 87205; 99214; G0463

== ENCOUNTER 2023-05-22 12:45 | Outpatient (RCR) | payer MEDICARE, MEDICAID, SELFPAY ==
[2023-04-23 00:09] VITALS: BP 97/61; PULSE 95; RESP 18; TEMP 36.6
[2023-04-24 10:06] VITALS: BP 93/55; PULSE 91; RESP 16; TEMP 36
--- NOTE | 2023-04-24 12:52 | PCM.WC.PN ---
History of Present Illness Date of Service: 04/24/23 Chief Complaint: Left Ischial ulcer History of Wound: Patient is a 62 year old female who previously was a patient here and known to me, but had back surgery in early September 2022 at [facility] and then went to rehab at [facility] after that. She had a aurelia replaced in her back. Before her surgery, she was not able to lie flat due to increased pain, so she spent most of her time in her wheelchair. Now since her surgery, she is in too much back pain to sit in her wheelchair. She presents today with an ulcer to her left ischium that started several weeks ago. She was in the ED on 12/10/22 for increased wound drainage and was treated with Keflex, which she has completed. She does have home health to assist with dressing changes. She has lost 100 lbs since last being here in early September. Wound care to left ischial ulcer is Dakin's moistened gauze covered with gauze/[place] SAP dressing. She has a new skin tear lateral to ulcer, place adaptic and cover with gauze. Wound culture 12/26/22 positive for Proteus miriabilis, Enterococcus faecalis, Streptococcus agalactiae, Anaerobic cocci and Bacteroides fragilis. She was treated with Augmentin. Wound culture 04/03/23 positive for Proteus mirabilis, Enterococcus faecalis, and Anaerobic cocci. She is being treated with Augmentin. Today she denies fever, chills, nausea or vomiting. She comes in today for further evaluation and treatment. Progress of Wound: Left ischial ulcer tunnel is larger. She continues to have pain in the area of the ulcer. She is tolerating the Augmentin. She states she is almost finished with it. Objective Data Objective Data Vital Signs: Vital Signs Temp Pulse Resp BP O2 Del Method 96.8 F L 91 16 93/55 L Room Air 04/24/23 10:06 04/24/23 10:06 04/24/23 10:06 04/24/23 10:06 04/24/23 10:06 Oxygen Delivery Method Room Air Charges/Coding Procedures Integumentary 111xxx-113xx: 80081 Shila musc/fascia 20 sq cm/< Debridement Note Debridement Note Wound debrided: Ischial ulcer Laterality: Left Wound Grade/Stage: Stage III Type of Debridement: Excisional debridement Anesthesia Used: 5% Lidocaine Gel Depth: Down to and including healthy tissue, in the subcutaneous layer and to muscle Percentage of wound debrided: 100 Instrument Used: 5mm curette Tissue Removed: Devitalized tissue and slough into the muscle Severity: Fat Layer Exposed Amount of bleeding with debridement: Mild Bleeding Controlled with: Compression and gauze Patient tolerated procedure: Patient tolerated procedure well Debridement Free Text: Tunnel is from 12-4 with the deepest area at 2:00. Post-Debridement Measurements and Additional Note: Post-Debridement Measurements/Treatment WC - Nurse 1 - General Ulcer Assessment Start: 04/24/23 10:02 Freq: Status: Active Protocol: TAISHA Activity Type Activity Date Activity User E-sign Co-sign Detail Recorded Client Recorded Date Recorded By Document 04/24/23 10:06 [facility] Desktop 04/24/23 10:18 [facility] 04/24/23 10:06 WC - Today's Visit Information Type of service Follow-up Visit (Physician/NATIONAL RECRUITER ) Arrival Mode Wheelchair Transfer Assistance Other Transfer Assist (Other) 2 Accompanied by spike Patient Identification Verified (Name & Yes ) Patient Requires Transmission-Based No Precautions Vital Signs Temperature (97.8 F-99.1 F) 96.8 F L Temperature Source Temporal Pulse Rate (60-100) 91 Pulse Location Monitor Respiratory Rate (12-18) 16 Respiratory rate source Observation Oxygen Delivery Method Room Air Blood Pressure (90/60-120/80) 93/55 L Blood Pressure Mean (mm Hg) 67 Source Monitor Position Sitting Blood Pressure Location Left Arm History Since Last Visit- (Skip if this is Patient's initial visit) Have you changed medications since your No last visit? Any new allergies or adverse reactions No Had a fall/change in ADL's that may No increase risk of falls Signs or symptoms of abuse and/or No neglect since last visit Have you been in the hospital since your No last visit? Has dressing in place as prescribed Yes Has compression in place as prescribed N/A Has offloadiing in place as prescribed N/A Experienced any changes in pain level or No management Left Footwear Slipper Right Footwear Slipper Pain Scale: 0-10 Numeric Is Patient Pain Free? Yes SCOTTY - Nurse 1 - General Ulcer Measurement Start: 04/24/23 10:02 Freq: Status: Active Protocol: Activity Type Activity Date Activity User E-sign Co-sign Detail Recorded Client Recorded Date Recorded By Document 04/24/23 10:06 [facility] Desktop 04/24/23 10:18 [facility] 04/24/23 10:06 Wound Center Nurse 1 #14- L SACRAL -Combined with other wound No -Current Size (cm) - Length 1.8 -Current Size (cm) - Width 1.8 -Current Size (cm) - Depth 0.5 -Total Square Cm 3.24 -Photo Taken No -Epithelialization None Present -Tunneling No -Undermining/Tunneling Yes -Undermining/Tunneling Starts (O'clock 12 ) -Undermining/Tunneling Ends (O'clock) 5 -Maximum Distance (cm) 1.7 -Circular Undermining No -Exudate Amt Medium -Exudate Type Serosanguineous -Wound Margin Distinct, Outline Attached -Granulation Amt Medium (34-66%) -Granulation Quality Red -Slough/Fibrin Yes -Necrosis Amt Medium (34-66%) -Necrotic Tissue Type Adherent Slough -Texture (Vivi-wound Skin Appearance) Assessed, Scarring -Moisture (Vivi-wound Skin Appearance) Assessed -Color (Vivi-wound Skin Appearance) Assessed -Temperature (Vivi-wound Skin No Abnormality Appearance) (Pt Warm) -Tenderness on Palpation (Vivi-wound No Skin Appearance) -Ulcer Cleansing Rinsed/ Irrigated with Saline -Foul Odor after Cleansing No -Anesthetic Used 5% Lidocaine Gel WC - Nurse 2 - General Ulcer CM Notes Start: 04/24/23 10:02 Freq: Status: Active Protocol: Activity Type Activity Date Activity User E-sign Co-sign Detail Recorded Client Recorded Date Recorded By Document 04/24/23 10:25 Laptop 04/24/23 10:29 04/24/23 10:25 Wound Center Nurse 2 -Time 10:27 -Correct Patient Yes -Correct Side, Site, Position Yes -Correct Procedure Yes -Procedure Performed Yes -Type of Procedure Debridement -Clinical Debridement Subcutaneous -Tissue Removed Subcutaneous -Post Debridement (cm) - Length 2.1 -Post Debridement (cm) - Width 2.5 -Post Debridement (cm) - Depth 0.3 -Total Square (Post) (cm) 5.25 -Area of Debridement (cm) - Length 2.1 -Area of Debridement (cm) - Width 2.5 -Total Square (Area) (cm) 5.25 -Tunneling No -Undermining/Tunneling Yes -Undermining/Tunneling Starts (O'clock 12 ) -Undermining/Tunneling Ends (O'clock) 4 -Maximum Distance (cm) 2.4 -Circular Undermining No -Wound/Ulcer Outcome Not Healed -Ulcer Cleansing Rinsed/ Irrigated with Saline -Foul Odor after Cleansing No -Bioengineered Tissue No -Bleeding Controlled with Pressure -Treatment Response Procedure Tolerated Well -Offloading No -Pressure Reduction Wheelchair cushion -Debridement - Subq, 1st 20sq cm Yes Pain Scale: 0-10 Numeric Is Patient Pain Free? Yes - Nurse 3 - General Ulcer D/C NN Start: 04/24/23 10:02 Freq: Status: Active Protocol: Activity Type Activity Date Activity User E-sign Co-sign Detail Recorded Client Recorded Date Recorded By Document 04/24/23 10:41 Laptop 04/24/23 10:42 04/24/23 10:41 Wound Care Center Nurse 3 #14- L SACRAL -Ulcer Cleansing Rinsed/ Irrigated with Saline -Foul Odor after Cleansing No -Primary Dressing Applied Mepilex Border -Other Dressing dakin's gauze -Mepilex Border 1 Pain Scale: 0-10 Numeric Is Patient Pain Free? Yes - Visit Discharge Discharge Condition Stable Ambulatory Status Wheelchair Transportation Private Auto Medication Reconcilliation completed & Yes provided to patient/care provider Clinical Summary of Care Provided Yes Assessment/Plan Assessment/Plan (1) Decubitus ulcer of left perineal ischial region, stage 3: CODE(S): L89.323 - Pressure ulcer of left buttock, stage 3 (2) S/P laminectomy with spinal fusion: CODE(S): Z98.1 - Arthrodesis status (3) Tobacco use disorder: CODE(S): F17.200 - Nicotine dependence, unspecified, uncomplicated (4) Paraplegia: CODE(S): G82.20 - Paraplegia, unspecified (5) Weight loss, non-intentional: CODE(S): R63.4 - Abnormal weight loss PLAN: Plan Patient evaluated at the wound healing center today. Wound care - Dakins 0.25% moistened gauze covered with gauze and [place] SAP or ABD daily after washing with soap and water. She would benefit from a wound VAC. She is hesitant about the wound VAC because she is concerned it will increase her pain. She is willing to try it. Will apply for wound VAC. She has home health to help with wound VAC dressing changes. Wound VAC will be at 150 mmHg. The dressing will be changed 3 times per week. The ulcer should be washed with soap and water. Wound culture 12/26/22 positive for Proteus miriabilis, Enterococcus faecalis, Streptococcus agalactiae, Anaerobic cocci and Bacteroides fragilis. She was treated with Augmentin. Wound culture 04/03/23 positive for Proteus mirabilis, Enterococcus faecalis, and Anaerobic cocci. She is being treated with Augmentin. Stressed importance of not sitting or laying on her ischial area for long periods of time. Follow up 2 weeks.
--- NOTE | 2023-05-08 09:41 | WC ---
Called to check with patient that she received her wound vac and has had it in place with suction that has been applied via [facility]. The vac was placed on hold though since last Monday since a piece of the cord broke off and is waiting on a new one to be delivered. Patient states has had the vac in place for a total of 8 days and has seen improvement. patient cancelled today because she had no on e to help her get ready since her aide called off. Rescheduled for next week.
[2023-05-15 11:09] VITALS: BP 75/49; PULSE 86; RESP 22; TEMP 36.2
--- NOTE | 2023-05-15 12:40 | PN.PCM_ITS ---
History of Present Illness Date of Service: 05/15/23 Chief Complaint: Left Ischial ulcer History of Wound: Patient is a 62 year old female who previously was a patient here and known to me, but had back surgery in early September 2022 at [facility] and then went to rehab at [facility] after that. She had a aurelia replaced in her back. Before her surgery, she was not able to lie flat due to increased pain, so she spent most of her time in her wheelchair. Now since her surgery, she is in too much back pain to sit in her wheelchair. She presents today with an ulcer to her left ischium that started several weeks ago. She was in the ED on 12/10/22 for increased wound drainage and was treated with Keflex, which she has completed. She does have home health to assist with dressing changes. She has lost 100 lbs since last being here in early September. Wound care to left ischial ulcer is Dakin's moistened gauze covered with gauze/[place] SAP dressing. She has a new skin tear lateral to ulcer, place adaptic and cover with gauze. Wound culture 12/26/22 positive for Proteus miriabilis, Enterococcus faecalis, Streptococcus agalactiae, Anaerobic cocci and Bacteroides fragilis. She was treated with Augmentin. Wound culture 04/03/23 positive for Proteus mirabilis, Enterococcus faecalis, and Anaerobic cocci. She is being treated with Augmentin. Today she denies fever, chills, nausea or vomiting. She comes in today for further evaluation and treatment. Progress of Wound: Left ischial ulcer tunnel is smaller since starting the wound VAC. She is complaining of increased pain and issues with urinary and stool incontinence since starting the wound VAC. Objective Data Objective Data Vital Signs: Vital Signs Temp Pulse Resp BP O2 Del Method 97.1 F L 86 22 H 75/49 L Room Air 05/15/23 11:09 05/15/23 11:09 05/15/23 11:09 05/15/23 11:09 04/24/23 10:06 Oxygen Delivery Method Room Air Charges/Coding Procedures Integumentary 111xxx-113xx: 85149 Shila subq tissue 20 sq cm/< Debridement Note Debridement Note Wound debrided: Ischial ulcer Laterality: Left Wound Grade/Stage: Stage III Type of Debridement: Excisional debridement Anesthesia Used: 5% Lidocaine Gel Depth: Down to and including healthy tissue and in the subcutaneous layer Percentage of wound debrided: 100 Instrument Used: 5mm curette Tissue Removed: Devitalized tissue and slough Severity: Fat Layer Exposed Amount of bleeding with debridement: Mild Bleeding Controlled with: Compression and gauze Patient tolerated procedure: Patient tolerated procedure well Debridement Free Text: Tunnel is from 12-4 with the deepest area at 2:00. Post-Debridement Measurements and Additional Note: Post-Debridement Measurements/Treatment - Nurse 1 - General Ulcer Assessment Start: 04/24/23 10:02 Freq: Status: Active Protocol: [employer] Activity Type Activity Date Activity User E-sign Co-sign Detail Recorded Client Recorded Date Recorded By Document 04/24/23 10:06 BMF Desktop 04/24/23 10:18 BMF Document 05/15/23 11:09 DL Desktop 05/15/23 11:21 DL 04/24/23 05/15/23 10:06 11:09 - Today's Visit Information Type of service Follow-up Visit Follow-up Visit (Physician/CORPORATE QUALITY MANAGER (Physician/CORPORATE QUALITY MANAGER ) ) Arrival Mode Wheelchair Wheelchair Transfer Assistance Other None Transfer Assist (Other) 2 Accompanied by spike Patient Identification Verified (Name & Yes Yes ) Patient Requires Transmission-Based No No Precautions Vital Signs Temperature (97.8 F-99.1 F) 96.8 F L 97.1 F L Temperature Source Temporal Temporal Pulse Rate (60-100) 91 86 Pulse Location Monitor Monitor Respiratory Rate (12-18) 16 22 H Respiratory rate source Observation Observation Oxygen Delivery Method Room Air Blood Pressure (90/60-120/80) 93/55 L 75/49 L Blood Pressure Mean (mm Hg) 67 57 Source Monitor Monitor Position Sitting Blood Pressure Location Left Arm History Since Last Visit- (Skip if this is Patient's initial visit) Have you changed medications since your No No last visit? Any new allergies or adverse reactions No No Had a fall/change in ADL's that may No No increase risk of falls Signs or symptoms of abuse and/or No No neglect since last visit Have you been in the hospital since your No No last visit? Has dressing in place as prescribed Yes Yes Has compression in place as prescribed N/A N/A Has offloadiing in place as prescribed N/A Yes Experienced any changes in pain level or No No management Left Footwear Slipper Right Footwear Slipper Pain Scale: 0-10 Numeric Is Patient Pain Free? Yes Yes WC - Nurse 1 - General Ulcer Measurement Start: 04/24/23 10:02 Freq: Status: Active Protocol: Activity Type Activity Date Activity User E-sign Co-sign Detail Recorded Client Recorded Date Recorded By Document 04/24/23 10:06 BMF Desktop 04/24/23 10:18 BMF Document 05/15/23 11:09 DL Desktop 05/15/23 11:21 DL 04/24/23 05/15/23 10:06 11:09 Wound Center Nurse 1 #14- L SACRAL -Combined with other wound No -Current Size (cm) - Length 1.8 1 -Current Size (cm) - Width 1.8 1.5 -Current Size (cm) - Depth 0.5 0.5 -Total Square Cm 3.24 1.5 -Photo Taken No -Epithelialization None Present -Tunneling No -Undermining/Tunneling Yes -Undermining/Tunneling Starts (O'clock 12 11 ) -Undermining/Tunneling Ends (O'clock) 5 5 -Maximum Distance (cm) 1.7 1.2 -Circular Undermining No -Exudate Amt Medium Medium -Exudate Type Serosanguineous Serosanguineous -Wound Margin Distinct, Distinct, Outline Outline Attached Attached -Granulation Amt Medium (34-66%) Medium (34-66%) -Granulation Quality Red [place],Red -Slough/Fibrin Yes -Necrosis Amt Medium (34-66%) None Present (0 %) -Necrotic Tissue Type Adherent Slough -Structure Exposed N/A -Texture (Vivi-wound Skin Appearance) Assessed, Scarring Scarring -Moisture (Vivi-wound Skin Appearance) Assessed No Abnormality -Color (Vivi-wound Skin Appearance) Assessed No Abnormality -Temperature (Vivi-wound Skin No Abnormality No Abnormality Appearance) (Pt Warm) (Pt Warm) -Tenderness on Palpation (Vivi-wound No No Skin Appearance) -Ulcer Cleansing Rinsed/ Soap and Water Irrigated with Saline -Foul Odor after Cleansing No No -Anesthetic Used 5% Lidocaine 5% Lidocaine Gel Gel WC - Nurse 2 - General Ulcer CM Notes Start: 04/24/23 10:02 Freq: Status: Active Protocol: Activity Type Activity Date Activity User E-sign Co-sign Detail Recorded Client Recorded Date Recorded By Document 04/24/23 10:25 Laptop 04/24/23 10:29 Document 05/15/23 11:29 Desktop 05/15/23 11:34 04/24/23 05/15/23 10:25 11:29 Wound Center Nurse 2 #14- L SACRAL -Time 10:27 11:29 -Correct Patient Yes Yes -Correct Side, Site, Position Yes Yes -Correct Procedure Yes Yes -Procedure Performed Yes Yes -Type of Procedure Debridement Debridement -Clinical Debridement Subcutaneous Subcutaneous -Tissue Removed Subcutaneous Subcutaneous -Post Debridement (cm) - Length 2.1 2.0 -Post Debridement (cm) - Width 2.5 2.0 -Post Debridement (cm) - Depth 0.3 0.3 -Total Square (Post) (cm) 5.25 4.00 -Area of Debridement (cm) - Length 2.1 2.0 -Area of Debridement (cm) - Width 2.5 2.0 -Total Square (Area) (cm) 5.25 4.00 -Tunneling No No -Undermining/Tunneling Yes Yes -Undermining/Tunneling Starts (O'clock 12 12 ) -Undermining/Tunneling Ends (O'clock) 4 4 -Maximum Distance (cm) 2.4 1.5 -Circular Undermining No No -Wound/Ulcer Outcome Not Healed Not Healed -Ulcer Cleansing Rinsed/ Rinsed/ Irrigated with Irrigated with Saline Saline -Foul Odor after Cleansing No No -Bioengineered Tissue No No -Bleeding Controlled with Pressure Pressure -Treatment Response Procedure Procedure Tolerated Well Tolerated Well -Offloading No No -Pressure Reduction Wheelchair Wheelchair cushion cushion -Debridement - Subq, 1st 20sq cm Yes Yes Pain Scale: 0-10 Numeric Is Patient Pain Free? Yes Yes - Nurse 3 - General Ulcer D/C NN Start: 04/24/23 10:02 Freq: Status: Active Protocol: Activity Type Activity Date Activity User E-sign Co-sign Detail Recorded Client Recorded Date Recorded By Document 04/24/23 10:41 Laptop 04/24/23 10:42 Document 05/15/23 11:47 [facility] Desktop 05/15/23 11:48 [facility] 04/24/23 05/15/23 10:41 11:47 Wound Care Center Nurse 3 #14- L SACRAL -Ulcer Cleansing Rinsed/ Rinsed/ Irrigated with Irrigated with Saline Saline -Foul Odor after Cleansing No No -Primary Dressing Applied Mepilex Border Hysept ($), Mepilex Border -Other Dressing dakin's gauze -Mepilex Border 1 1 Treatment Response Procedure Tolerated Well Pain Scale: 0-10 Numeric Is Patient Pain Free? Yes Yes WC - Visit Discharge Discharge Condition Stable Stable Ambulatory Status Wheelchair Wheelchair Transportation Private Auto Private Auto Accompanied by DAUGHTER Medication Reconcilliation completed & Yes provided to patient/care provider Clinical Summary of Care Provided Yes Assessment/Plan Assessment/Plan (1) Decubitus ulcer of left perineal ischial region, stage 3: CODE(S): L89.323 - Pressure ulcer of left buttock, stage 3 (2) S/P laminectomy with spinal fusion: CODE(S): Z98.1 - Arthrodesis status (3) Tobacco use disorder: CODE(S): F17.200 - Nicotine dependence, unspecified, uncomplicated (4) Paraplegia: CODE(S): G82.20 - Paraplegia, unspecified (5) Weight loss, non-intentional: CODE(S): R63.4 - Abnormal weight loss PLAN: Plan Patient evaluated at the wound healing center today. Wound care - Take a wound VAC holiday. Restart Dakins 0.25% moistened gauze covered with gauze and [place] SAP or ABD daily after washing with soap and water. With this wound VAC holiday, we will see if she has improvement with her urinary and fecal incontinence. Wound culture 12/26/22 positive for Proteus miriabilis, Enterococcus faecalis, Streptococcus agalactiae, Anaerobic cocci and Bacteroides fragilis. She was treated with Augmentin. Wound culture 04/03/23 positive for Proteus mirabilis, Enterococcus faecalis, and Anaerobic cocci. She is being treated with Augmentin. Stressed importance of not sitting or laying on her ischial area for long periods of time. Follow up 1 week.
[2023-05-22 12:59] VITALS: BP 90/56; PULSE 96; RESP 16; TEMP 35.8
--- NOTE | 2023-05-22 17:14 | PN.PCM_ITS ---
History of Present Illness Date of Service: 05/22/23 Chief Complaint: Left Ischial ulcer History of Wound: Patient is a 62 year old female who previously was a patient here and known to me, but had back surgery in early September 2022 at [facility] and then went to rehab at [place] after that. She had a aurelia replaced in her back. Before her surgery, she was not able to lie flat due to increased pain, so she spent most of her time in her wheelchair. Now since her surgery, she is in too much back pain to sit in her wheelchair. She presents today with an ulcer to her left ischium that started several weeks ago. She was in the ED on 12/10/22 for increased wound drainage and was treated with Keflex, which she has completed. She does have home health to assist with dressing changes. She has lost 100 lbs since last being here in early September. Wound care to left ischial ulcer is Dakin's moistened gauze covered with gauze/[place] SAP dressing. She has a new skin tear lateral to ulcer, place adaptic and cover with gauze. Wound culture 12/26/22 positive for Proteus miriabilis, Enterococcus faecalis, Streptococcus agalactiae, Anaerobic cocci and Bacteroides fragilis. She was treated with Augmentin. Wound culture 04/03/23 positive for Proteus mirabilis, Enterococcus faecalis, and Anaerobic cocci. She is being treated with Augmentin. Today she denies fever, chills, nausea or vomiting. She comes in today for further evaluation and treatment. Progress of Wound: Left ischial ulcer tunnel is stable. She states that she has had a decrease in her urinary and fecal incontinence since stopping the wound VAC. She also states that her pain is under better control. Objective Data Objective Data Vital Signs: Vital Signs Temp Pulse Resp BP O2 Del Method 96.5 F L 96 16 90/56 L Room Air 05/22/23 12:59 05/22/23 12:59 05/22/23 12:59 05/22/23 12:59 05/22/23 12:59 Oxygen Delivery Method Room Air Charges/Coding Procedures Integumentary 111xxx-113xx: 12013 Shila subq tissue 20 sq cm/< Debridement Note Debridement Note Wound debrided: Ischial ulcer Laterality: Left Wound Grade/Stage: Stage III Type of Debridement: Excisional debridement Anesthesia Used: 5% Lidocaine Gel Depth: Down to and including healthy tissue and in the subcutaneous layer Percentage of wound debrided: 100 Instrument Used: 5mm curette Tissue Removed: Devitalized tissue and slough Severity: Fat Layer Exposed Amount of bleeding with debridement: Mild Bleeding Controlled with: Compression and gauze Patient tolerated procedure: Patient tolerated procedure well Debridement Free Text: Tunnel is from 12-4 with the deepest area at 2:00. Post-Debridement Measurements and Additional Note: Post-Debridement Measurements/Treatment - Nurse 1 - General Ulcer Assessment Start: 04/24/23 10:02 Freq: Status: Active Protocol: TAISHA Activity Type Activity Date Activity User E-sign Co-sign Detail Recorded Client Recorded Date Recorded By Document 04/24/23 10:06 BMF Desktop 04/24/23 10:18 BMF Document 05/15/23 11:09 DL Desktop 05/15/23 11:21 DL Document 05/22/23 12:59 BMF Desktop 05/22/23 13:04 BMF 04/24/23 05/15/23 05/22/23 10:06 11:09 12:59 - Today's Visit Information Type of service Follow-up Visit Follow-up Visit Follow-up Visit (Physician/DELIVERY TABLE FEEDER (Physician/DELIVERY TABLE FEEDER (Physician/DELIVERY TABLE FEEDER ) ) ) Arrival Mode Wheelchair Wheelchair Wheelchair Transfer Assistance Other None Other Transfer Assist (Other) 2 2 Accompanied by spike spike Patient Identification Verified (Name & Yes Yes Yes ) Patient Requires Transmission-Based No No No Precautions Vital Signs Temperature (97.8 F-99.1 F) 96.8 F L 97.1 F L 96.5 F L Temperature Source Temporal Temporal Temporal Pulse Rate (60-100) 91 86 96 Pulse Location Monitor Monitor Monitor Respiratory Rate (12-18) 16 22 H 16 Respiratory rate source Observation Observation Observation Oxygen Delivery Method Room Air Room Air Blood Pressure (90/60-120/80) 93/55 L 75/49 L 90/56 L Blood Pressure Mean (mm Hg) 67 57 67 Source Monitor Monitor Monitor Position Sitting Sitting Blood Pressure Location Left Arm Right Arm History Since Last Visit- (Skip if this is Patient's initial visit) Have you changed medications since your No No No last visit? Any new allergies or adverse reactions No No No Had a fall/change in ADL's that may No No No increase risk of falls Signs or symptoms of abuse and/or No No No neglect since last visit Have you been in the hospital since your No No No last visit? Has dressing in place as prescribed Yes Yes Yes Has compression in place as prescribed N/A N/A N/A Has offloadiing in place as prescribed N/A Yes N/A Experienced any changes in pain level or No No No management Left Footwear Slipper Slipper Right Footwear Slipper Slipper Pain Scale: 0-10 Numeric Is Patient Pain Free? Yes Yes Yes WC - Nurse 1 - General Ulcer Measurement Start: 04/24/23 10:02 Freq: Status: Active Protocol: Activity Type Activity Date Activity User E-sign Co-sign Detail Recorded Client Recorded Date Recorded By Document 04/24/23 10:06 [facility] Desktop 04/24/23 10:18 BMF Document 05/15/23 11:09 DL Desktop 05/15/23 11:21 DL Document 05/22/23 12:59 [facility] Desktop 05/22/23 13:04 BMF 04/24/23 05/15/23 05/22/23 10:06 11:09 12:59 Wound Center Nurse 1 #14- L SACRAL -Combined with other wound No No -Current Size (cm) - Length 1.8 1 1 -Current Size (cm) - Width 1.8 1.5 1.5 -Current Size (cm) - Depth 0.5 0.5 1.1 -Total Square Cm 3.24 1.5 1.5 -Photo Taken No No -Epithelialization None Present None Present -Tunneling No No -Undermining/Tunneling Yes Yes -Undermining/Tunneling Starts (O'clock 12 11 12 ) -Undermining/Tunneling Ends (O'clock) 5 5 3 -Maximum Distance (cm) 1.7 1.2 1.9 -Circular Undermining No No -Exudate Amt Medium Medium Medium -Exudate Type Serosanguineous Serosanguineous Serosanguineous -Wound Margin Distinct, Distinct, Distinct, Outline Outline Outline Attached Attached Attached -Granulation Amt Medium (34-66%) Medium (34-66%) Large (67-100%) -Granulation Quality Red [place],Red Red -Slough/Fibrin Yes Yes -Necrosis Amt Medium (34-66%) None Present (0 Small (1-33%) %) -Necrotic Tissue Type Adherent Slough Adherent Slough -Structure Exposed N/A -Texture (Vivi-wound Skin Appearance) Assessed, Scarring Assessed, Scarring Scarring -Moisture (Vivi-wound Skin Appearance) Assessed No Abnormality Assessed -Color (Vivi-wound Skin Appearance) Assessed No Abnormality Assessed -Temperature (Vivi-wound Skin No Abnormality No Abnormality No Abnormality Appearance) (Pt Warm) (Pt Warm) (Pt Warm) -Tenderness on Palpation (Vivi-wound No No No Skin Appearance) -Ulcer Cleansing Rinsed/ Soap and Water Rinsed/ Irrigated with Irrigated with Saline Saline -Foul Odor after Cleansing No No No -Anesthetic Used 5% Lidocaine 5% Lidocaine 5% Lidocaine Gel Gel Gel WC - Nurse 2 - General Ulcer CM Notes Start: 04/24/23 10:02 Freq: Status: Active Protocol: Activity Type Activity Date Activity User E-sign Co-sign Detail Recorded Client Recorded Date Recorded By Document 04/24/23 10:25 Laptop 04/24/23 10:29 Document 05/15/23 11:29 Desktop 05/15/23 11:34 Document 05/22/23 13:11 Laptop 05/22/23 13:14 04/24/23 05/15/23 05/22/23 10:25 11:29 13:11 Wound Center Nurse 2 #14- L SACRAL -Time 10:27 11:29 13:11 -Correct Patient Yes Yes Yes -Correct Side, Site, Position Yes Yes Yes -Correct Procedure Yes Yes Yes -Procedure Performed Yes Yes Yes -Type of Procedure Debridement Debridement Debridement -Clinical Debridement Subcutaneous Subcutaneous Subcutaneous -Tissue Removed Subcutaneous Subcutaneous Subcutaneous -Post Debridement (cm) - Length 2.1 2.0 1.5 -Post Debridement (cm) - Width 2.5 2.0 1.5 -Post Debridement (cm) - Depth 0.3 0.3 0.4 -Total Square (Post) (cm) 5.25 4.00 2.25 -Area of Debridement (cm) - Length 2.1 2.0 1.5 -Area of Debridement (cm) - Width 2.5 2.0 1.5 -Total Square (Area) (cm) 5.25 4.00 2.25 -Tunneling No No No -Undermining/Tunneling Yes Yes Yes -Undermining/Tunneling Starts (O'clock 12 12 12 ) -Undermining/Tunneling Ends (O'clock) 4 4 5 -Maximum Distance (cm) 2.4 1.5 1.4 -Circular Undermining No No No -Wound/Ulcer Outcome Not Healed Not Healed Not Healed -Ulcer Cleansing Rinsed/ Rinsed/ Rinsed/ Irrigated with Irrigated with Irrigated with Saline Saline Saline -Foul Odor after Cleansing No No No -Bioengineered Tissue No No No -Bleeding Controlled with Pressure Pressure Pressure -Treatment Response Procedure Procedure Procedure Tolerated Well Tolerated Well Tolerated Well -Offloading No No No -Pressure Reduction Wheelchair Wheelchair cushion cushion -Debridement - Subq, 1st 20sq cm Yes Yes Yes Pain Scale: 0-10 Numeric Is Patient Pain Free? Yes Yes Yes - Nurse 3 - General Ulcer D/C NN Start: 04/24/23 10:02 Freq: Status: Active Protocol: Activity Type Activity Date Activity User E-sign Co-sign Detail Recorded Client Recorded Date Recorded By Document 04/24/23 10:41 Laptop 04/24/23 10:42 Document 05/15/23 11:47 [facility] Desktop 05/15/23 11:48 [facility] Document 05/22/23 13:30 [facility] Desktop 05/22/23 13:34 [facility] 04/24/23 05/15/23 05/22/23 10:41 11:47 13:30 Wound Care Center Nurse 3 #14- L SACRAL -Ulcer Cleansing Rinsed/ Rinsed/ Rinsed/ Irrigated with Irrigated with Irrigated with Saline Saline Saline -Foul Odor after Cleansing No No No -Primary Dressing Applied Mepilex Border Hysept ($), Fibracol Plus Mepilex Border 4x4,Mepilex Border -Other Dressing dakin's gauze -Fibracol Plus 4x4 1 -Mepilex Border 1 1 1 Treatment Response Procedure Procedure Tolerated Well Tolerated Well Pain Scale: 0-10 Numeric Is Patient Pain Free? Yes Yes Yes - Visit Discharge Discharge Condition Stable Stable Stable Ambulatory Status Wheelchair Wheelchair Wheelchair Transportation Private Auto Private Auto Private Auto Accompanied by DAUGHTER daughter Medication Reconcilliation completed & Yes provided to patient/care provider Clinical Summary of Care Provided Yes Assessment/Plan Assessment/Plan (1) Decubitus ulcer of left perineal ischial region, stage 3: CODE(S): L89.323 - Pressure ulcer of left buttock, stage 3 (2) S/P laminectomy with spinal fusion: CODE(S): Z98.1 - Arthrodesis status (3) Tobacco use disorder: CODE(S): F17.200 - Nicotine dependence, unspecified, uncomplicated (4) Paraplegia: CODE(S): G82.20 - Paraplegia, unspecified (5) Weight loss, non-intentional: CODE(S): R63.4 - Abnormal weight loss PLAN: Plan Patient evaluated at the wound healing center today. Wound care - Dakins 0.25% moistened gauze covered with gauze, [place] SAP or ABD daily after washing with soap and water. Since she has had an improvement in her urinary/fecal incontinence and pain, will discontinue the wound vac even though it was helping decrease her ulcer size. Wound culture 12/26/22 positive for Proteus miriabilis, Enterococcus faecalis, Streptococcus agalactiae, Anaerobic cocci and Bacteroides fragilis. She was treated with Augmentin. Wound culture 04/03/23 positive for Proteus mirabilis, Enterococcus faecalis, and Anaerobic cocci. She is being treated with Augmentin. Stressed importance of not sitting or laying on her ischial area for long periods of time. Follow up 2 weeks.
== END 2023-05-23 23:59 | disposition home or self-care (01) ==
LOC: WC 12:45
PROVIDERS: PCP Internal Medicine; Referring Provider Obstetrics & Gynecology; Visit Provider Nurse Practitioner Family
DX: L89.223 Pressure ulcer of left hip, stage 3 (principal); G82.20 Paraplegia, unspecified; R30.9 Painful micturition, unspecified; B37.31 Acute candidiasis of vulva and vagina; R15.9 Full incontinence of feces; R63.4 Abnormal weight loss; Z98.1 Arthrodesis status
CPT/HCPCS: 11042

== ENCOUNTER 2023-06-12 13:08 | Outpatient (RCR) | payer MEDICARE, MEDICAID, SELFPAY ==
[2023-05-24 00:12] VITALS: BP 90/56; PULSE 96; RESP 16; TEMP 35.8
--- NOTE | 2023-06-01 08:02 | WC ---
Kathleen from [facility] called informing us that patient's wound has worsened with size and drainage and patient continues to complain of discomfort. Patient currently using daily fibrocol + and refused to have wound vac reapplied which was then discontinued. Notified Ayanna Jameson FIRE CLAIMS ADJUSTER who states to stop Fibrocol and to start daily 0.25% dakin's slightly moistened gauze to ulcer and cover with ABD pad. Patient is scheduled to be seen here on 06/12 but if her symptoms worsens before then, patient needs to report to the ER. Kathleen verbalized understanding.
== END 2023-06-22 23:59 | disposition home or self-care (01) ==
LOC: WC 13:08
PROVIDERS: PCP Internal Medicine; Referring Provider Obstetrics & Gynecology; Visit Provider Nurse Practitioner Family
DX: Z09 Encounter for follow-up examination after completed treatment for conditions other than malignant neoplasm (principal)

== ENCOUNTER 2023-07-03 13:46 | Outpatient (RCR) | payer MEDICARE, MEDICAID, SELFPAY ==
[2023-06-23 00:10] VITALS: BP 90/56; PULSE 96; RESP 16; TEMP 35.8
[2023-07-03 13:50] VITALS: BP 103/67; PULSE 100; RESP 20; TEMP 35.2
--- NOTE | 2023-07-03 16:51 | PN.PCM_ITS ---
History of Present Illness Date of Service: 07/03/23 Chief Complaint: Left Ischial ulcer History of Wound: Patient is a 62 year old female who previously was a patient here and known to me, but had back surgery in early September 2022 at [facility] and then went to rehab at [place] after that. She had a aurelia replaced in her back. Before her surgery, she was not able to lie flat due to increased pain, so she spent most of her time in her wheelchair. Now since her surgery, she is in too much back pain to sit in her wheelchair. She presents today with an ulcer to her left ischium that started several weeks ago. She was in the ED on 12/10/22 for increased wound drainage and was treated with Keflex, which she has completed. She does have home health to assist with dressing changes. She has lost 100 lbs since last being here in early September. Wound care to left ischial ulcer is Dakin's moistened gauze covered with gauze/[place] SAP dressing. She has a new skin tear lateral to ulcer, place adaptic and cover with gauze. Wound culture 12/26/22 positive for Proteus miriabilis, Enterococcus faecalis, Streptococcus agalactiae, Anaerobic cocci and Bacteroides fragilis. She was treated with Augmentin. Wound culture 04/03/23 positive for Proteus mirabilis, Enterococcus faecalis, and Anaerobic cocci. She is being treated with Augmentin. Today she denies fever, chills, nausea or vomiting. She comes in today for further evaluation and treatment. Progress of Wound: Ulcer is stable. Patient has complained of increased drainage and odor. A wound culture was obtained today.? A positive culture will necessitate antibiotic therapy. Objective Data Objective Data Vital Signs: Vital Signs Temp Pulse Resp BP 95.4 F L 100 20 H 103/67 07/03/23 13:50 07/03/23 13:50 07/03/23 13:50 07/03/23 13:50 Charges/Coding Procedures Integumentary [id number]: 20518 Shila subq tissue 20 sq cm/< Debridement Note Debridement Note Wound debrided: Ischial ulcer Laterality: Left Wound Grade/Stage: Stage III Type of Debridement: Excisional debridement Anesthesia Used: 5% Lidocaine Gel Depth: Down to and including healthy tissue and in the subcutaneous layer Percentage of wound debrided: 100 Instrument Used: 5mm curette Tissue Removed: Devitalized tissue and slough Severity: Fat Layer Exposed Amount of bleeding with debridement: Mild Bleeding Controlled with: Compression and gauze Patient tolerated procedure: Patient tolerated procedure well Debridement Free Text: Tunnel is from 12-4. Post-Debridement Measurements and Additional Note: Post-Debridement Measurements/Treatment SCOTTY - Nurse 1 - General Ulcer Assessment Start: 07/03/23 13:49 Freq: Status: Active Protocol: TAISHA Activity Type Activity Date Activity User E-sign Co-sign Detail Recorded Client Recorded Date Recorded By Document 07/03/23 13:50 DL Desktop 07/03/23 13:58 DL 07/03/23 13:50 WC - Today's Visit Information Type of service Follow-up Visit (Physician/HOME HEALTH CAREGIVER ) Arrival Mode Wheelchair Transfer Assistance Manual Transfer Assist (Other) x1 Patient Identification Verified (Name & Yes ) Patient Requires Transmission-Based No Precautions Vital Signs Temperature (97.8 F-99.1 F) 95.4 F L Temperature Source Temporal Pulse Rate (60-100) 100 Respiratory Rate (12-18) 20 H Respiratory rate source Observation Blood Pressure (90/60-120/80) 103/67 Blood Pressure Mean (mm Hg) 79 Source Monitor Pain Scale: 0-10 Numeric Is Patient Pain Free? Yes SCOTTY - Nurse 1 - General Ulcer Measurement Start: 07/03/23 13:49 Freq: Status: Active Protocol: Activity Type Activity Date Activity User E-sign Co-sign Detail Recorded Client Recorded Date Recorded By Document 07/03/23 13:50 DL [employer] 07/03/23 13:58 DL 07/03/23 13:50 Wound Center Nurse 1 #14- L SACRAL -Current Size (cm) - Length 0.7 -Current Size (cm) - Width 0.7 -Current Size (cm) - Depth 0.5 -Total Square Cm 0.49 -Photo Taken Yes -Undermining/Tunneling Starts (O'clock 12 ) -Undermining/Tunneling Ends (O'clock) 6 -Maximum Distance (cm) 1.2 -Exudate Amt Medium -Exudate Type Serosanguineous -Wound Margin Distinct, Outline Attached -Granulation Amt Large (67-100%) -Granulation Quality [place],Red -Necrosis Amt None Present (0 %) -Structure Exposed N/A -Texture (Vivi-wound Skin Appearance) Scarring -Moisture (Vivi-wound Skin Appearance) No Abnormality -Color (Vivi-wound Skin Appearance) No Abnormality -Temperature (Vivi-wound Skin No Abnormality Appearance) (Pt Warm) -Tenderness on Palpation (Vivi-wound No Skin Appearance) -Ulcer Cleansing Soap and Water -Foul Odor after Cleansing No -Anesthetic Used 5% Lidocaine Gel SCOTTY - Nurse 2 - General Ulcer CM Notes Start: 07/03/23 13:49 Freq: Status: Active Protocol: Activity Type Activity Date Activity User E-sign Co-sign Detail Recorded Client Recorded Date Recorded By Document 07/03/23 14:06 Laptop 07/03/23 14:13 07/03/23 14:06 Wound Center Nurse 2 -Time 14:06 -Correct Patient Yes -Correct Side, Site, Position Yes -Correct Procedure Yes -Procedure Performed Yes -Type of Procedure Debridement -Clinical Debridement Subcutaneous -Tissue Removed Subcutaneous -Post Debridement (cm) - Length 1.0 -Post Debridement (cm) - Width 1.0 -Post Debridement (cm) - Depth 0.5 -Total Square (Post) (cm) 1.00 -Area of Debridement (cm) - Length 1 -Area of Debridement (cm) - Width 1 -Total Square (Area) (cm) 1 -Tunneling No -Undermining/Tunneling No -Circular Undermining Yes -Wound/Ulcer Outcome Not Healed -Ulcer Cleansing Rinsed/ Irrigated with Saline -Foul Odor after Cleansing No -Bioengineered Tissue No -Bleeding Controlled with Pressure -Treatment Response Procedure Tolerated Well -Offloading No -Pressure Reduction Wheelchair cushion -Debridement - Subq, 1st 20sq cm Yes Pain Scale: 0-10 Numeric Is Patient Pain Free? Yes - Nurse 3 - General Ulcer D/C NN Start: 07/03/23 13:49 Freq: Status: Active Protocol: Activity Type Activity Date Activity User E-sign Co-sign Detail Recorded Client Recorded Date Recorded By Document 07/03/23 14:24 [facility] Desktop 07/03/23 14:25 [facility] 07/03/23 14:24 Wound Care Center Nurse 3 #14- L SACRAL -Ulcer Cleansing Rinsed/ Irrigated with Saline -Foul Odor after Cleansing No -Primary Dressing Applied Mepilex Border, [place] -Other Dressing per dl brick offbearer -Mepilex Border 1 -[place] 1 Treatment Response Procedure Tolerated Well Pain Scale: 0-10 Numeric Is Patient Pain Free? Yes WC - Visit Discharge Discharge Condition Stable Ambulatory Status Wheelchair Transportation Private Auto Accompanied by spike Facility Type Home Health Assessment/Plan Assessment/Plan (1) Decubitus ulcer of left perineal ischial region, stage 3: CODE(S): L89.323 - Pressure ulcer of left buttock, stage 3 (2) S/P laminectomy with spinal fusion: CODE(S): Z98.1 - Arthrodesis status (3) Tobacco use disorder: CODE(S): F17.200 - Nicotine dependence, unspecified, uncomplicated (4) Paraplegia: CODE(S): G82.20 - Paraplegia, unspecified (5) Weight loss, non-intentional: CODE(S): R63.4 - Abnormal weight loss PLAN: Plan Patient evaluated at the wound healing center today. Wound care - Moistened Aquacel-Ag covered with gauze, [place] SAP or ABD daily after washing with soap and water. Since she has had an improvement in her urinary/fecal incontinence and pain, will discontinue the wound vac even though it was helping decrease her ulcer size. Wound culture 12/26/22 positive for Proteus miriabilis, Enterococcus faecalis, Streptococcus agalactiae, Anaerobic cocci and Bacteroides fragilis. She was treated with Augmentin. Wound culture 04/03/23 positive for Proteus mirabilis, Enterococcus faecalis, and Anaerobic cocci. She is being treated with Augmentin. A wound culture was obtained today, 07/03/23.? A positive culture will necessitate antibiotic therapy. Stressed importance of not sitting or laying on her ischial area for long periods of time. Follow up 3 weeks, due to the holidays.
== END 2023-07-23 23:59 | disposition home or self-care (01) ==
LOC: WC 13:46
PROVIDERS: PCP Internal Medicine; Referring Provider Obstetrics & Gynecology; Visit Provider Nurse Practitioner Family
DX: L89.223 Pressure ulcer of left hip, stage 3 (principal); G82.20 Paraplegia, unspecified; Z98.1 Arthrodesis status; F17.200 Nicotine dependence, unspecified, uncomplicated; R63.4 Abnormal weight loss
CPT/HCPCS: 11042; 87070; 87075; 87077; 87186; 87205

== ENCOUNTER → 2023-07-14 | Outpatient (CLI) | payer MEDICARE, MEDICAID, SELFPAY ==
[2023-07-14 16:46] LABS: Color, Urine Yellow (Yellow); Glucose, Dipstick Normal (Normal); Ketone-Dipstick Negative (Negative); Leukocyte Esterase-Dipstick Negative /ul (Negative); Nitrite-Dipstick Negative (Negative); Occult Blood-Urine 50 /ul (Negative); Protein-Dipstick 15 mg/dl (Negative); Specific Gravity, Urine 1.015 (1.002-1.030); Urine Bilirubin Dipstick Negative (Negative); Urine Clarity Clear (Clear); Urine Urobilinogen Normal (Normal)
[2023-07-14 17:01] LABS: Amphetamine Urine VISTA NEGATIVE (<1000 ng/mL); Barbiturate Urine VISTA NEGATIVE (< 200 ng/mL); Benzodiazepine Urine VISTA NEGATIVE (< 200 ng/mL); Cocaine Urine VISTA NEGATIVE (< 300 ng/mL); Ecstacy Urine VISTA NEGATIVE (< 500 ng/mL); Methadone Urine VISTA POSITIVE (< 300 ng/mL); PCP Urine VISTA NEGATIVE (< 25 ng/mL); THC Urine VISTA POSITIVE (< 50 ng/mL); Vista UDS pH Range 6
== END | disposition home or self-care (01) ==
PROVIDERS: PCP Internal Medicine
DX: Z79.899 Other long term (current) drug therapy (principal)
CPT/HCPCS: 80307; 81002; 87086

== ENCOUNTER 2023-08-23 13:30 | Outpatient (RCR) | payer MEDICARE, MEDICAID, SELFPAY ==
[2023-07-24 00:11] VITALS: BP 103/67; PULSE 100; RESP 20; TEMP 35.2
[2023-08-01 12:53] VITALS: BP 95/73; PULSE 85; RESP 18; TEMP 36.1
--- NOTE | 2023-08-01 14:39 | PN.PCM_ITS ---
History of Present Illness Date of Service: 08/01/23 Chief Complaint: Left Ischial ulcer History of Wound: Patient is a 63 year old female who previously was a patient here and known to me, but had back surgery in early September 2022 at [facility] and then went to rehab at [place] after that. She had a aurelia replaced in her back. Before her surgery, she was not able to lie flat due to increased pain, so she spent most of her time in her wheelchair. Now since her surgery, she is in too much back pain to sit in her wheelchair. She presents today with an ulcer to her left ischium that started several weeks ago. She was in the ED on 12/10/22 for increased wound drainage and was treated with Keflex, which she has completed. She does have home health to assist with dressing changes. She has lost 100 lbs since last being here in early September. Wound care to left ischial ulcer is Aquacel-Ag wicked into tunnel covered with gauze/[place] SAP dressing. She has a new skin tear lateral to ulcer, place adaptic and cover with gauze. Wound culture 12/26/22 positive for Proteus miriabilis, Enterococcus faecalis, Streptococcus agalactiae, Anaerobic cocci and Bacteroides fragilis. She was treated with Augmentin. Wound culture 04/03/23 positive for Proteus mirabilis, Enterococcus faecalis, and Anaerobic cocci. She was treated with Augmentin. Wound culture from 07/03/23 positive for Proteus mirablilis and Enterococcus faecalis which was treated with Aumentin. Today she denies fever, chills, nausea or vomiting. She comes in today for further evaluation and treatment. Progress of Wound: Ulcer appears smaller but her tunnel at 12 o'clock is larger. There is still undermining from approximately 10-2 o'clock. Objective Data Objective Data Vital Signs: Vital Signs Temp Pulse Resp BP 96.9 F L 85 18 95/73 08/01/23 12:53 08/01/23 12:53 08/01/23 12:53 08/01/23 12:53 Charges/Coding Procedures Integumentary 111xxx-113xx: 14016 Shila subq tissue 20 sq cm/< Debridement Note Debridement Note Wound debrided: Ischial ulcer Laterality: Left Wound Grade/Stage: Stage III Type of Debridement: Excisional debridement Anesthesia Used: 5% Lidocaine Gel Depth: Down to and including healthy tissue and in the subcutaneous layer Percentage of wound debrided: 100 Instrument Used: 3mm curette Tissue Removed: Devitalized tissue and slough Severity: Fat Layer Exposed Amount of bleeding with debridement: Mild Bleeding Controlled with: Compression and gauze Patient tolerated procedure: Patient tolerated procedure well Debridement Free Text: Undermining 10-2 but tunnel at 12 o'clock Post-Debridement Measurements and Additional Note: Post-Debridement Measurements/Treatment WC - Nurse 1 - General Ulcer Assessment Start: 08/01/23 12:53 Freq: Status: Active Protocol: TAISHA Activity Type Activity Date Activity User E-sign Co-sign Detail Recorded Client Recorded Date Recorded By Document 08/01/23 12:53 RB Desktop 08/01/23 12:56 RB 08/01/23 12:53 WC - Today's Visit Information Type of service Follow-up Visit (Physician/HONEY PRODUCER ) Arrival Mode Wheelchair Transfer Assistance Manual Patient Identification Verified (Name & Yes ) Patient Requires Transmission-Based No Precautions Vital Signs Temperature (97.8 F-99.1 F) 96.9 F L Temperature Source Temporal Pulse Rate (60-100) 85 Pulse Location Monitor Respiratory Rate (12-18) 18 Respiratory rate source Observation Blood Pressure (90/60-120/80) 95/73 Blood Pressure Mean (mm Hg) 80 Source Monitor Position Sitting Blood Pressure Location Left Arm History Since Last Visit- (Skip if this is Patient's initial visit) Have you changed medications since your No last visit? Any new allergies or adverse reactions No Had a fall/change in ADL's that may No increase risk of falls Signs or symptoms of abuse and/or No neglect since last visit Have you been in the hospital since your No last visit? Has dressing in place as prescribed Yes Has compression in place as prescribed No Has offloadiing in place as prescribed Yes Experienced any changes in pain level or No management Pain Scale: 0-10 Numeric Is Patient Pain Free? No sacral -Description Sharp -Intensity 7 -Duration (hours) Acute -Pain Behavior Withdrawal from Touch -Pain Aggravating Factors Changing Position -Alleviating Factors/Interventions Medication -Effectiveness of Alleviating Factor/ Moderately Intervention effective WC - Nurse 1 - General Ulcer Measurement Start: 08/01/23 12:53 Freq: Status: Active Protocol: Activity Type Activity Date Activity User E-sign Co-sign Detail Recorded Client Recorded Date Recorded By Document 08/01/23 12:53 RB Desktop 08/01/23 12:56 RB 08/01/23 12:53 Wound Center Nurse 1 #14- L SACRAL -Combined with other wound No -Current Size (cm) - Length 0.8 -Current Size (cm) - Width 0.3 -Current Size (cm) - Depth 0.6 -Total Square Cm 0.24 -Photo Taken Yes -Undermining/Tunneling Yes -Undermining/Tunneling Starts (O'clock 11 ) -Undermining/Tunneling Ends (O'clock) 1 -Maximum Distance (cm) 1 -Exudate Amt Medium -Exudate Type Serosanguineous -Wound Margin Thickened -Granulation Amt Medium (34-66%) -Granulation Quality [place] -Slough/Fibrin Yes -Necrosis Amt Medium (34-66%) -Necrotic Tissue Type Adherent Slough -Structure Exposed N/A -Texture (Vivi-wound Skin Appearance) Scarring -Moisture (Vivi-wound Skin Appearance) Maceration -Color (Vivi-wound Skin Appearance) Assessed -Temperature (Vivi-wound Skin No Abnormality Appearance) (Pt Warm) -Tenderness on Palpation (Vivi-wound No Skin Appearance) -Ulcer Cleansing Wound Cleanser -Foul Odor after Cleansing No -Anesthetic Used 5% Lidocaine Gel WC - Nurse 2 - General Ulcer CM Notes Start: 08/01/23 12:53 Freq: Status: Active Protocol: Activity Type Activity Date Activity User E-sign Co-sign Detail Recorded Client Recorded Date Recorded By Document 08/01/23 13:42 PL [id number] 08/01/23 13:43 PL 08/01/23 13:42 Wound Center Nurse 2 -Time 13:24 -Correct Patient Yes -Correct Side, Site, Position Yes -Correct Procedure Yes -Procedure Performed Yes -Type of Procedure Debridement -Clinical Debridement Subcutaneous -Tissue Removed Subcutaneous -Post Debridement (cm) - Length 1.2 -Post Debridement (cm) - Width 0.8 -Post Debridement (cm) - Depth 0.5 -Total Square (Post) (cm) 0.96 -Area of Debridement (cm) - Length 1.2 -Area of Debridement (cm) - Width 0.8 -Total Square (Area) (cm) 0.96 -Tunneling No -Undermining/Tunneling Yes -Undermining/Tunneling Starts (O'clock 9 ) -Undermining/Tunneling Ends (O'clock) 2 -Maximum Distance (cm) 1.9 -Circular Undermining No -Wound/Ulcer Outcome Not Healed -Ulcer Cleansing Rinsed/ Irrigated with Saline -Foul Odor after Cleansing No -Bioengineered Tissue No -Bleeding Controlled with Pressure -Treatment Response Procedure Tolerated Well -Debridement - Subq, 1st 20sq cm Yes Pain Scale: 0-10 Numeric Is Patient Pain Free? Yes - Nurse 3 - General Ulcer D/C NN Start: 08/01/23 12:53 Freq: Status: Active Protocol: Activity Type Activity Date Activity User E-sign Co-sign Detail Recorded Client Recorded Date Recorded By Document 08/01/23 13:34 RB Desktop 08/01/23 13:35 RB 08/01/23 13:34 Wound Care Center Nurse 3 #14- L SACRAL -Ulcer Cleansing Rinsed/ Irrigated with Saline -Primary Dressing Applied Aquacel AG 4x4, Mepilex Border -Aquacel AG 4x4 1 -Mepilex Border 1 Treatment Response Procedure Tolerated Well Pain Scale: 0-10 Numeric Is Patient Pain Free? No Teaching: Wound Center Dressing Your Wound -Person Taught Patient -Teaching Method Discussion -Response to teaching Verbalize understanding WC - Visit Discharge Discharge Condition Stable Ambulatory Status Wheelchair Transportation Private Auto Medication Reconcilliation completed & No provided to patient/care provider Clinical Summary of Care Provided Yes Assessment/Plan Assessment/Plan (1) Decubitus ulcer of left perineal ischial region, stage 3: CODE(S): L89.323 - Pressure ulcer of left buttock, stage 3 (2) S/P laminectomy with spinal fusion: CODE(S): Z98.1 - Arthrodesis status (3) Tobacco use disorder: CODE(S): F17.200 - Nicotine dependence, unspecified, uncomplicated (4) Paraplegia: CODE(S): G82.20 - Paraplegia, unspecified (5) Weight loss, non-intentional: CODE(S): R63.4 - Abnormal weight loss PLAN: Plan Patient evaluated at the wound healing center today. Wound care - Aquacel-Ag wicked into tunnel at 12 o'clock, covered with gauze, [place] SAP or ABD daily after washing with soap and water. Since she has had an improvement in her urinary/fecal incontinence and pain, will discontinue the wound vac even though it was helping decrease her ulcer size. Wound culture 12/26/22 positive for Proteus miriabilis, Enterococcus faecalis, Streptococcus agalactiae, Anaerobic cocci and Bacteroides fragilis. She was treated with Augmentin. Wound culture 04/03/23 positive for Proteus mirabilis, Enterococcus faecalis, and Anaerobic cocci. She is being treated with Augmentin. Wound culture from 07/03/23 positive for Proteus mirablilis and Enterococcus faecalis which was treated with Aumentin. Stressed importance of not sitting or laying on her ischial area for long periods of time. Follow up 2 weeks.
[2023-08-14 13:35] VITALS: BP 133/77; PULSE 80; RESP 18; TEMP 36.2
--- NOTE | 2023-08-14 14:23 | PCM.WC.PN ---
History of Present Illness Date of Service: 08/14/23 Chief Complaint: Left Ischial ulcer History of Wound: Patient is a 63 year old female who previously was a patient here and known to me, but had back surgery in early September 2022 at [facility] and then went to rehab at [place] after that. She had a aurelia replaced in her back. Before her surgery, she was not able to lie flat due to increased pain, so she spent most of her time in her wheelchair. Now since her surgery, she is in too much back pain to sit in her wheelchair. She presents today with an ulcer to her left ischium that started several weeks ago. She was in the ED on 12/10/22 for increased wound drainage and was treated with Keflex, which she has completed. She does have home health to assist with dressing changes. She has lost 100 lbs since last being here in early September. Wound care to left ischial ulcer is Aquacel-Ag wicked into tunnel covered with gauze/[place] SAP dressing. She has a new skin tear lateral to ulcer, place adaptic and cover with gauze. Wound culture 12/26/22 positive for Proteus miriabilis, Enterococcus faecalis, Streptococcus agalactiae, Anaerobic cocci and Bacteroides fragilis. She was treated with Augmentin. Wound culture 04/03/23 positive for Proteus mirabilis, Enterococcus faecalis, and Anaerobic cocci. She was treated with Augmentin. Wound culture from 07/03/23 positive for Proteus mirablilis and Enterococcus faecalis which was treated with Aumentin. Today she denies fever, chills, nausea or vomiting. She comes in today for further evaluation and treatment. Progress of Wound: Ulcer appears smaller and continues to have a tunnel at 12 o'clock. There is still undermining from approximately 9-3 o'clock. Objective Data Objective Data Vital Signs: Vital Signs Temp Pulse Resp BP O2 Del Method 97.1 F L 80 18 133/77 H Room Air 08/14/23 13:35 08/14/23 13:35 08/14/23 13:35 08/14/23 13:35 08/14/23 13:35 Oxygen Delivery Method Room Air Charges/Coding Procedures Integumentary 111xxx-113xx: 32120 Shila musc/fascia 20 sq cm/< Debridement Note Debridement Note Wound debrided: Ischial ulcer Laterality: Left Wound Grade/Stage: Stage III Type of Debridement: Excisional debridement Anesthesia Used: 5% Lidocaine Gel Depth: Down to and including healthy tissue and in the subcutaneous layer Percentage of wound debrided: 100 Instrument Used: 3mm curette Tissue Removed: Devitalized tissue and slough Severity: Fat Layer Exposed Amount of bleeding with debridement: Mild Bleeding Controlled with: Compression and gauze Patient tolerated procedure: Patient tolerated procedure well Debridement Free Text: Undermining 10-2 but tunnel at 12 o'clock Post-Debridement Measurements and Additional Note: Post-Debridement Measurements/Treatment - Nurse 1 - General Ulcer Assessment Start: 08/01/23 12:53 Freq: Status: Active Protocol: [employer] Activity Type Activity Date Activity User E-sign Co-sign Detail Recorded Client Recorded Date Recorded By Document 08/01/23 12:53 RB Desktop 08/01/23 12:56 RB Document 08/14/23 13:35 DL Desktop 08/14/23 13:44 DL 08/01/23 08/14/23 12:53 13:35 - Today's Visit Information Type of service Follow-up Visit Follow-up Visit (Physician/MANAGER CRITICAL CARE UNIT (Physician/MANAGER CRITICAL CARE UNIT ) ) Arrival Mode Wheelchair Wheelchair Transfer Assistance Manual Manual Transfer Assist (Other) x2 Patient Identification Verified (Name & Yes ) Patient Requires Transmission-Based No No Precautions Vital Signs Temperature (97.8 F-99.1 F) 96.9 F L 97.1 F L Temperature Source Temporal Temporal Pulse Rate (60-100) 85 80 Pulse Location Monitor Monitor Respiratory Rate (12-18) 18 18 Respiratory rate source Observation Observation Oxygen Delivery Method Room Air Blood Pressure (90/60-120/80) 95/73 133/77 H Blood Pressure Mean (mm Hg) 80 95 Source Monitor Monitor Position Sitting Prone Blood Pressure Location Left Arm Left Arm History Since Last Visit- (Skip if this is Patient's initial visit) Have you changed medications since your No No last visit? Any new allergies or adverse reactions No No Had a fall/change in ADL's that may No No increase risk of falls Signs or symptoms of abuse and/or No No neglect since last visit Have you been in the hospital since your No No last visit? Has dressing in place as prescribed Yes Yes Has compression in place as prescribed No N/A Has offloadiing in place as prescribed Yes N/A Experienced any changes in pain level or No No management Left Footwear Slipper Right Footwear Slipper Pain Scale: 0-10 Numeric Is Patient Pain Free? No Yes sacral -Description Sharp -Intensity 7 -Duration (hours) Acute -Pain Behavior Withdrawal from Touch -Pain Aggravating Factors Changing Position -Alleviating Factors/Interventions Medication -Effectiveness of Alleviating Factor/ Moderately Intervention effective WC - Nurse 1 - General Ulcer Measurement Start: 08/01/23 12:53 Freq: Status: Active Protocol: Activity Type Activity Date Activity User E-sign Co-sign Detail Recorded Client Recorded Date Recorded By Document 08/01/23 12:53 RB Desktop 08/01/23 12:56 RB Document 08/14/23 13:35 DL Desktop 08/14/23 13:44 DL 08/01/23 08/14/23 12:53 13:35 Wound Center Nurse 1 #14- L SACRAL -Combined with other wound No -Current Size (cm) - Length 0.8 0.8 -Current Size (cm) - Width 0.3 0.8 -Current Size (cm) - Depth 0.6 1.1 -Total Square Cm 0.24 0.64 -Photo Taken Yes -Undermining/Tunneling Yes -Undermining/Tunneling Starts (O'clock 11 ) -Undermining/Tunneling Ends (O'clock) 1 -Maximum Distance (cm) 1 1.3 -Circular Undermining Yes -Exudate Amt Medium Medium -Exudate Type Serosanguineous Serosanguineous -Wound Margin Thickened Distinct, Outline Attached -Granulation Amt Medium (34-66%) Medium (34-66%) -Granulation Quality [place] Red -Slough/Fibrin Yes -Necrosis Amt Medium (34-66%) Medium (34-66%) -Necrotic Tissue Type Adherent Slough Adherent Slough -Structure Exposed N/A -Texture (Vivi-wound Skin Appearance) Scarring Assessed -Moisture (Vivi-wound Skin Appearance) Maceration Assessed, Maceration -Color (Vivi-wound Skin Appearance) Assessed Assessed -Temperature (Vivi-wound Skin No Abnormality No Abnormality Appearance) (Pt Warm) (Pt Warm) -Tenderness on Palpation (Vivi-wound No Skin Appearance) -Ulcer Cleansing Wound Cleanser Rinsed/ Irrigated with Saline -Foul Odor after Cleansing No No -Anesthetic Used 5% Lidocaine 4% Lidocaine Gel Solution SCOTTY - Nurse 2 - General Ulcer CM Notes Start: 08/01/23 12:53 Freq: Status: Active Protocol: Activity Type Activity Date Activity User E-sign Co-sign Detail Recorded Client Recorded Date Recorded By Document 08/01/23 13:42 PL [id number] 08/01/23 13:43 PL Document 08/14/23 14:03 JF Laptop 08/14/23 14:06 JF 08/01/23 08/14/23 13:42 14:03 Wound Center Nurse 2 #14- L SACRAL -Time 13:24 14:04 -Correct Patient Yes Yes -Correct Side, Site, Position Yes Yes -Correct Procedure Yes Yes -Procedure Performed Yes Yes -Type of Procedure Debridement Debridement -Clinical Debridement Subcutaneous Muscle / Fascia -Tissue Removed Subcutaneous Muscle,Fascia -Post Debridement (cm) - Length 1.2 1.0 -Post Debridement (cm) - Width 0.8 1.1 -Post Debridement (cm) - Depth 0.5 0.5 -Total Square (Post) (cm) 0.96 1.10 -Area of Debridement (cm) - Length 1.2 1.0 -Area of Debridement (cm) - Width 0.8 1.1 -Total Square (Area) (cm) 0.96 1.10 -Tunneling No No -Undermining/Tunneling Yes Yes -Undermining/Tunneling Starts (O'clock 9 9 ) -Undermining/Tunneling Ends (O'clock) 2 3 -Maximum Distance (cm) 1.9 3.0 -Circular Undermining No No -Wound/Ulcer Outcome Not Healed Not Healed -Ulcer Cleansing Rinsed/ Rinsed/ Irrigated with Irrigated with Saline Saline -Foul Odor after Cleansing No No -Bioengineered Tissue No No -Bleeding Controlled with Pressure Pressure -Treatment Response Procedure Procedure Tolerated Well Tolerated Well -Offloading No -Pressure Reduction Wheelchair cushion -Debridement - Subq, 1st 20sq cm Yes -Debridement - Muscle / Fascia, 1st Yes 20sq cm Pain Scale: 0-10 Numeric Is Patient Pain Free? Yes Yes SCOTTY - Nurse 3 - General Ulcer D/C NN Start: 08/01/23 12:53 Freq: Status: Active Protocol: Activity Type Activity Date Activity User E-sign Co-sign Detail Recorded Client Recorded Date Recorded By Document 08/01/23 13:34 RB Desktop 08/01/23 13:35 RB Document 08/14/23 14:17 DL Desktop 08/14/23 14:18 DL 08/01/23 08/14/23 13:34 14:17 Wound Care Center Nurse 3 #14- L SACRAL -Ulcer Cleansing Rinsed/ Rinsed/ Irrigated with Irrigated with Saline Saline -Foul Odor after Cleansing No -Primary Dressing Applied Aquacel AG 4x4, Aquacel AG 4x4, Mepilex Border Mepilex Border -Aquacel AG 4x4 1 1 -Mepilex Border 1 1 Treatment Response Procedure Procedure Tolerated Well Tolerated Well Pain Scale: 0-10 Numeric Is Patient Pain Free? No Yes Teaching: Wound Center Dressing Your Wound -Person Taught Patient -Teaching Method Discussion -Response to teaching Verbalize understanding WC - Visit Discharge Discharge Condition Stable Stable Ambulatory Status Wheelchair Wheelchair Transportation Private Auto Private Auto Accompanied by daughter Medication Reconcilliation completed & No provided to patient/care provider Clinical Summary of Care Provided Yes Facility Type Home Health Assessment/Plan Assessment/Plan (1) Decubitus ulcer of left perineal ischial region, stage 3: CODE(S): L89.323 - Pressure ulcer of left buttock, stage 3 (2) S/P laminectomy with spinal fusion: CODE(S): Z98.1 - Arthrodesis status (3) Tobacco use disorder: CODE(S): F17.200 - Nicotine dependence, unspecified, uncomplicated (4) Paraplegia: CODE(S): G82.20 - Paraplegia, unspecified (5) Weight loss, non-intentional: CODE(S): R63.4 - Abnormal weight loss PLAN: Plan Patient evaluated at the wound healing center today. Wound care - Aquacel-Ag wicked into tunnel at 12 o'clock, covered with gauze, [place] SAP or ABD daily after washing with soap and water. Since she has had an improvement in her urinary/fecal incontinence and pain, will discontinue the wound vac even though it was helping decrease her ulcer size. Wound culture 12/26/22 positive for Proteus miriabilis, Enterococcus faecalis, Streptococcus agalactiae, Anaerobic cocci and Bacteroides fragilis. She was treated with Augmentin. Wound culture 04/03/23 positive for Proteus mirabilis, Enterococcus faecalis, and Anaerobic cocci. She is being treated with Augmentin. Wound culture from 07/03/23 positive for Proteus mirablilis and Enterococcus faecalis which was treated with Augmentin. Stressed importance of not sitting or laying on her ischial area for long periods of time. She will follow up with Dr. Hodge in a couple weeks for further evaluation of the tunnel, to see if it can be unroofed to make it easier to do wound care. Follow up 2 weeks.
--- NOTE | 2023-08-23 15:33 | PCM.WC.PN ---
History of Present Illness Date of Service: 08/23/23 Chief Complaint: Sacral pressure sore, Stage IV. History of Wound: Patient is a 63 year old female who previously was a patient here and known to me, but had back surgery in early September 2022 at [facility] and then went to rehab at [place] after that. She had a aurelia replaced in her back. Before her surgery, she was not able to lie flat due to increased pain, so she spent most of her time in her wheelchair. Now since her surgery, she is in too much back pain to sit in her wheelchair. She presents today with an ulcer to her sacrum that started several weeks ago. She was in the ED on 12/10/22 for increased wound drainage and was treated with Keflex, which she has completed. She does have home health to assist with dressing changes. She has lost 100 lbs since last being here in early September. Wound care - Aquacel-Ag wicked into tunnel covered with gauze/[place] SAP dressing. Wound culture 12/26/22 positive for Proteus miriabilis, Enterococcus faecalis, Streptococcus agalactiae, Anaerobic cocci and Bacteroides fragilis. She was treated with Augmentin. Wound culture 04/03/23 positive for Proteus mirabilis, Enterococcus faecalis, and Anaerobic cocci. She was treated with Augmentin. Wound culture from 07/03/23 positive for Proteus mirablilis and Enterococcus faecalis which was treated with Aumentin. Today she denies fever, chills, nausea or vomiting. She comes in today for further evaluation and treatment. Progress of Wound: Ulcer appears smaller and continues to have a tunnel at 12 o'clock. There is still undermining from approximately 9-3 o'clock. Objective Data Objective Data Vital Signs: Vital Signs Temp Pulse Resp BP O2 Del Method 97.1 F L 80 18 133/77 H Room Air 08/14/23 13:35 08/14/23 13:35 08/14/23 13:35 08/14/23 13:35 08/14/23 13:35 Oxygen Delivery Method Room Air Lab / Micro Data Attestation: I reviewed the patient's lab results. Lab results narrative: Patient has diabetes mellitus. Her last HgbA1c from 09/18/20 was 5.9. For elective surgeries, the HgbA1c needs to be less than 8. Charges/Coding Procedures Integumentary 111xxx-113xx: 68126 Shila musc/fascia 20 sq cm/< (ICD-10 - L89.154, Z98.1, G82.20, E11.9, R63.4, F17.200) Debridement Note Debridement Note Wound debrided: #14 Sacral area. Laterality: Not Applicable Wound Grade/Stage: IV. Type of Debridement: Excisional debridement Anesthesia Used: 5% Lidocaine Gel Depth: Down to and including healthy tissue, in the subcutaneous layer, to muscle and to bone (bone is palpable but not exposed.) Percentage of wound debrided: 100 Instrument Used: #15 blade and Forceps Tissue Removed: skin, subcutaneous tissue, and muscle. Severity: Fat Layer Exposed (muscle is exposed. bone is palpable but not exposed.) Amount of bleeding with debridement: Mild Bleeding Controlled with: Pressure, Compression and gauze and Silver Nitrate Patient tolerated procedure: Patient tolerated procedure well and - (A wound culture was obtained today.) Debridement Free Text: I unroofed the sacral ulcer superiorly to make the wound care easier. Abnormal bursal scar tissue was present, which delays healing, and was debrided as well. Post-Debridement Measurements and Additional Note: Post-Debridement Measurements/Treatment - Nurse 1 - General Ulcer Assessment Start: 08/01/23 12:53 Freq: Status: Active Protocol: TAISHA Activity Type Activity Date Activity User E-sign Co-sign Detail Recorded Client Recorded Date Recorded By Document 08/01/23 12:53 RB Desktop 08/01/23 12:56 RB Document 08/14/23 13:35 DL Desktop 08/14/23 13:44 DL 08/01/23 08/14/23 12:53 13:35 - Today's Visit Information Type of service Follow-up Visit Follow-up Visit (Physician/WOODS MANAGER (Physician/WOODS MANAGER ) ) Arrival Mode Wheelchair Wheelchair Transfer Assistance Manual Manual Transfer Assist (Other) x2 Patient Identification Verified (Name & Yes ) Patient Requires Transmission-Based No No Precautions Vital Signs Temperature (97.8 F-99.1 F) 96.9 F L 97.1 F L Temperature Source Temporal Temporal Pulse Rate (60-100) 85 80 Pulse Location Monitor Monitor Respiratory Rate (12-18) 18 18 Respiratory rate source Observation Observation Oxygen Delivery Method Room Air Blood Pressure (90/60-120/80) 95/73 133/77 H Blood Pressure Mean (mm Hg) 80 95 Source Monitor Monitor Position Sitting Prone Blood Pressure Location Left Arm Left Arm History Since Last Visit- (Skip if this is Patient's initial visit) Have you changed medications since your No No last visit? Any new allergies or adverse reactions No No Had a fall/change in ADL's that may No No increase risk of falls Signs or symptoms of abuse and/or No No neglect since last visit Have you been in the hospital since your No No last visit? Has dressing in place as prescribed Yes Yes Has compression in place as prescribed No N/A Has offloadiing in place as prescribed Yes N/A Experienced any changes in pain level or No No management Left Footwear Slipper Right Footwear Slipper Pain Scale: 0-10 Numeric Is Patient Pain Free? No Yes sacral -Description Sharp -Intensity 7 -Duration (hours) Acute -Pain Behavior Withdrawal from Touch -Pain Aggravating Factors Changing Position -Alleviating Factors/Interventions Medication -Effectiveness of Alleviating Factor/ Moderately Intervention effective WC - Nurse 1 - General Ulcer Measurement Start: 08/01/23 12:53 Freq: Status: Active Protocol: Activity Type Activity Date Activity User E-sign Co-sign Detail Recorded Client Recorded Date Recorded By Document 08/01/23 12:53 RB Desktop 08/01/23 12:56 RB Document 08/14/23 13:35 DL Desktop 08/14/23 13:44 DL 08/01/23 08/14/23 12:53 13:35 Wound Center Nurse 1 #14- L SACRAL -Combined with other wound No -Current Size (cm) - Length 0.8 0.8 -Current Size (cm) - Width 0.3 0.8 -Current Size (cm) - Depth 0.6 1.1 -Total Square Cm 0.24 0.64 -Photo Taken Yes -Undermining/Tunneling Yes -Undermining/Tunneling Starts (O'clock 11 ) -Undermining/Tunneling Ends (O'clock) 1 -Maximum Distance (cm) 1 1.3 -Circular Undermining Yes -Exudate Amt Medium Medium -Exudate Type Serosanguineous Serosanguineous -Wound Margin Thickened Distinct, Outline Attached -Granulation Amt Medium (34-66%) Medium (34-66%) -Granulation Quality [place] Red -Slough/Fibrin Yes -Necrosis Amt Medium (34-66%) Medium (34-66%) -Necrotic Tissue Type Adherent Slough Adherent Slough -Structure Exposed N/A -Texture (Vivi-wound Skin Appearance) Scarring Assessed -Moisture (Vivi-wound Skin Appearance) Maceration Assessed, Maceration -Color (Vivi-wound Skin Appearance) Assessed Assessed -Temperature (Vivi-wound Skin No Abnormality No Abnormality Appearance) (Pt Warm) (Pt Warm) -Tenderness on Palpation (Vivi-wound No Skin Appearance) -Ulcer Cleansing Wound Cleanser Rinsed/ Irrigated with Saline -Foul Odor after Cleansing No No -Anesthetic Used 5% Lidocaine 4% Lidocaine Gel Solution WC - Nurse 2 - General Ulcer CM Notes Start: 08/01/23 12:53 Freq: Status: Active Protocol: Activity Type Activity Date Activity User E-sign Co-sign Detail Recorded Client Recorded Date Recorded By Document 08/01/23 13:42 PL [id number] 08/01/23 13:43 PL Document 08/14/23 14:03 JF Laptop 08/14/23 14:06 JF Document 08/23/23 13:52 MW Desktop 08/23/23 14:19 MW 08/01/23 08/14/23 08/23/23 13:42 14:03 13:52 Wound Center Nurse 2 #14- L SACRAL -Time 13:24 14:04 13:58 -Correct Patient Yes Yes Yes -Correct Side, Site, Position Yes Yes Yes -Correct Procedure Yes Yes Yes -Procedure Performed Yes Yes Yes -Type of Procedure Debridement Debridement Debridement -Clinical Debridement Subcutaneous Muscle / Fascia Muscle / Fascia -Tissue Removed Subcutaneous Muscle,Fascia Muscle -Post Debridement (cm) - Length 1.2 1.0 4.0 -Post Debridement (cm) - Width 0.8 1.1 3.2 -Post Debridement (cm) - Depth 0.5 0.5 1.0 -Total Square (Post) (cm) 0.96 1.10 12.80 -Area of Debridement (cm) - Length 1.2 1.0 4.0 -Area of Debridement (cm) - Width 0.8 1.1 3.2 -Total Square (Area) (cm) 0.96 1.10 12.80 -Tunneling No No No -Undermining/Tunneling Yes Yes No -Undermining/Tunneling Starts (O'clock 9 9 ) -Undermining/Tunneling Ends (O'clock) 2 3 -Maximum Distance (cm) 1.9 3.0 -Circular Undermining No No No -Wound/Ulcer Outcome Not Healed Not Healed Not Healed -Ulcer Cleansing Rinsed/ Rinsed/ Rinsed/ Irrigated with Irrigated with Irrigated with Saline Saline Saline -Foul Odor after Cleansing No No No -Bioengineered Tissue No No No -Bleeding Controlled with Pressure Pressure Pressure,Silver Nitrate -Treatment Response Procedure Procedure Procedure Tolerated Well Tolerated Well Tolerated Well -Offloading No No -Pressure Reduction Wheelchair cushion -Debridement - Subq, 1st 20sq cm Yes -Debridement - Muscle / Fascia, 1st Yes Yes 20sq cm Pain Scale: 0-10 Numeric Is Patient Pain Free? Yes Yes Yes - Nurse 3 - General Ulcer D/C NN Start: 08/01/23 12:53 Freq: Status: Active Protocol: Activity Type Activity Date Activity User E-sign Co-sign Detail Recorded Client Recorded Date Recorded By Document 08/01/23 13:34 RB Desktop 08/01/23 13:35 RB Document 08/14/23 14:17 DL Desktop 08/14/23 14:18 DL Document 08/23/23 14:29 [facility] Desktop 08/23/23 14:30 [facility] 08/01/23 08/14/23 08/23/23 13:34 14:17 14:29 Wound Care Center Nurse 3 #14- L SACRAL -Ulcer Cleansing Rinsed/ Rinsed/ Soap and Water Irrigated with Irrigated with Saline Saline -Foul Odor after Cleansing No No -Primary Dressing Applied Aquacel AG 4x4, Aquacel AG 4x4, Aquacel AG 4x4 Mepilex Border Mepilex Border -Other Dressing DOUBLE ABD FOR PRESSURE; FLUFFED GAUZE -Primary Dressing Covered/Secured with Secured with Tape -Aquacel AG 4x4 1 1 1 -Mepilex Border 1 1 Treatment Response Procedure Procedure Procedure Tolerated Well Tolerated Well Tolerated Well Pain Scale: 0-10 Numeric Is Patient Pain Free? No Yes Yes Teaching: Wound Center Dressing Your Wound -Person Taught Patient -Teaching Method Discussion -Response to teaching Verbalize understanding WC - Visit Discharge Discharge Condition Stable Stable Stable Ambulatory Status Wheelchair Wheelchair Wheelchair Transportation Private Auto Private Auto Private Auto Accompanied by daughter DAUGHTER Medication Reconcilliation completed & No provided to patient/care provider Clinical Summary of Care Provided Yes Facility Type Home Health [facility] Facility Assessment/Plan Assessment/Plan (1) Pressure injury of sacral region, stage 4: CODE(S): L89.154 - Pressure ulcer of sacral region, stage 4 (2) S/P laminectomy with spinal fusion: CODE(S): Z98.1 - Arthrodesis status (3) Paraplegia: CODE(S): G82.20 - Paraplegia, unspecified (4) Diabetes mellitus: CODE(S): E11.9 - Type 2 diabetes mellitus without complications (5) Weight loss, non-intentional: CODE(S): R63.4 - Abnormal weight loss (6) Tobacco use disorder: CODE(S): F17.200 - Nicotine dependence, unspecified, uncomplicated PLAN: Plan Wound care - Continue Silver dressing covered with gauze, [place] SAP or ABD daily after washing with soap and water. Wound culture 12/26/22 positive for Proteus miriabilis, Enterococcus faecalis, Streptococcus agalactiae, Anaerobic cocci and Bacteroides fragilis. She was treated with Augmentin. Wound culture 04/03/23 positive for Proteus mirabilis, Enterococcus faecalis, and Anaerobic cocci. She is being treated with Augmentin. Wound culture from 07/03/23 positive for Proteus mirabilis and Enterococcus faecalis which was treated with Augmentin. A wound care was obtained today after unroofing the ulcer. A positive culture will necessitate antibiotic therapy. Patient has diabetes mellitus. Her last HgbA1c from 09/18/20 was 5.9. For elective surgeries, the HgbA1c needs to be less than 8. Encouraged nutritional supplementation with protein to help the healing process. Stressed importance of not sitting or laying on her pressure ulcer for long periods of time. Encouraged patient to stop smoking as it may have deleterious effects on wound healing. Follow up one week.
== END 2023-08-23 23:59 | disposition home or self-care (01) ==
LOC: WC 13:30
PROVIDERS: PCP Internal Medicine; Referring Provider Obstetrics & Gynecology; Visit Provider Nurse Practitioner Family
DX: L89.223 Pressure ulcer of left hip, stage 3 (principal); L89.154 Pressure ulcer of sacral region, stage 4; G82.20 Paraplegia, unspecified; E11.9 Type 2 diabetes mellitus without complications; Z98.1 Arthrodesis status; F17.200 Nicotine dependence, unspecified, uncomplicated; R63.4 Abnormal weight loss
CPT/HCPCS: 11042; 11043; 87070; 87075; 87205

== ENCOUNTER 2023-09-20 13:30 | Outpatient (RCR) | payer MEDICARE, MEDICAID, SELFPAY ==
[2023-08-24 00:11] VITALS: BP 133/77; PULSE 80; RESP 18; TEMP 36.2
[2023-09-05 13:07] VITALS: BP 138/67; PULSE 102; RESP 16; TEMP 36.1
--- NOTE | 2023-09-05 14:51 | PN.PCM_ITS ---
History of Present Illness Date of Service: 09/05/23 Chief Complaint: Left Ischial ulcer History of Wound: Patient is a 63 year old female who previously was a patient here and known to me, but had back surgery in early September 2022 at [facility] and then went to rehab at [place] after that. She had a aurelia replaced in her back. Before her surgery, she was not able to lie flat due to increased pain, so she spent most of her time in her wheelchair. Now since her surgery, she is in too much back pain to sit in her wheelchair. She presents today with an ulcer to her left ischium that started several weeks ago. She was in the ED on 12/10/22 for increased wound drainage and was treated with Keflex, which she has completed. She does have home health to assist with dressing changes. She has lost 100 lbs since last being here in early September. Wound care to left ischial ulcer is Aquacel-Ag wicked into tunnel covered with gauze/Bison SAP dressing. She has a new skin tear lateral to ulcer, place adaptic and cover with gauze. Wound culture 12/26/22 positive for Proteus miriabilis, Enterococcus faecalis, Streptococcus agalactiae, Anaerobic cocci and Bacteroides fragilis. She was treated with Augmentin. Wound culture 04/03/23 positive for Proteus mirabilis, Enterococcus faecalis, and Anaerobic cocci. She was treated with Augmentin. Wound culture from 07/03/23 positive for Proteus mirablilis and Enterococcus faecalis which was treated with Aumentin. Wound culture was done on 08/23/23. It was negative. Today she denies fever, chills, nausea or vomiting. Progress of Wound: Improved. Wound care is easier since the debridement to unroof the ulcer. Objective Data Objective Data Vital Signs: Vital Signs Temp Pulse Resp BP O2 Del Method 96.9 F L 102 H 16 138/67 H Room Air 09/05/23 13:07 09/05/23 13:07 09/05/23 13:07 09/05/23 13:07 09/05/23 13:07 Oxygen Delivery Method Room Air Lab / Micro Data Attestation: I reviewed the patient's lab results. Lab results narrative: Patient has diabetes mellitus. Her last HgbA1c from 09/18/20 was 5.9. For elective surgeries, the HgbA1c needs to be less than 8. Charges/Coding Procedures Integumentary 111xxx-113xx: 82011 Shila musc/fascia 20 sq cm/< (ICD-10 - L89.154, Z98.1, G82.20, E11.9, R63.4, F17.200) Debridement Note Debridement Note Wound debrided: #14 Sacral area. Laterality: Not Applicable Wound Grade/Stage: IV. Type of Debridement: Excisional debridement Anesthesia Used: 5% Lidocaine Gel Depth: Down to and including healthy tissue, in the subcutaneous layer, to muscle and to bone (bone is palpable but not exposed.) Percentage of wound debrided: 100 Instrument Used: #15 blade and Forceps Tissue Removed: subcutaneous tissue, senescent cells, devitalized tissue and muscle. Severity: Fat Layer Exposed (muscle is exposed. bone is palpable but not exposed.) Amount of bleeding with debridement: Mild Bleeding Controlled with: Pressure and Compression and gauze Patient tolerated procedure: Patient tolerated procedure well Post-Debridement Measurements and Additional Note: Post-Debridement Measurements/Treatment - Nurse 1 - General Ulcer Assessment Start: 09/05/23 13:07 Freq: Status: Active Protocol: SCOTTY.[email or web address] Activity Type Activity Date Activity User E-sign Co-sign Detail Recorded Client Recorded Date Recorded By Document 09/05/23 13:07 KW Desktop 09/05/23 13:18 KW 09/05/23 13:07 - Today's Visit Information Type of service Follow-up Visit (Physician/COMMUNICATION SKILLS INSTRUCTOR ) Arrival Mode Wheelchair Patient Identification Verified (Name & Yes ) Vital Signs Temperature (97.8 F-99.1 F) 96.9 F L Temperature Source Temporal Pulse Rate (60-100) 102 H Pulse Location Monitor Respiratory Rate (12-18) 16 Respiratory rate source Observation Oxygen Delivery Method Room Air Blood Pressure (90/60-120/80) 138/67 H Blood Pressure Mean (mm Hg) 90 Source Monitor Position Right Lateral Blood Pressure Location Left Arm History Since Last Visit- (Skip if this is Patient's initial visit) Have you changed medications since your No last visit? Any new allergies or adverse reactions No Had a fall/change in ADL's that may No increase risk of falls Signs or symptoms of abuse and/or No neglect since last visit Have you been in the hospital since your No last visit? Has dressing in place as prescribed Yes Has compression in place as prescribed N/A Has offloadiing in place as prescribed N/A Experienced any changes in pain level or No management Left Footwear Slipper Right Footwear Slipper Pain Scale: 0-10 Numeric Is Patient Pain Free? Yes - Nurse 1 - General Ulcer Measurement Start: 09/05/23 13:07 Freq: Status: Active Protocol: Activity Type Activity Date Activity User E-sign Co-sign Detail Recorded Client Recorded Date Recorded By Document 09/05/23 13:07 KW Desktop 09/05/23 13:18 KW 09/05/23 13:07 Wound Center Nurse 1 #14- L SACRAL -Combined with other wound No -Current Size (cm) - Length 4.6 -Current Size (cm) - Width 2 -Current Size (cm) - Depth 0.4 -Total Square Cm 9.2 -Tunneling No -Undermining/Tunneling Yes -Undermining/Tunneling Starts (O'clock 7 ) -Undermining/Tunneling Ends (O'clock) 3 -Maximum Distance (cm) 2.3 -Circular Undermining No -Exudate Amt Large -Exudate Type Serosanguineous -Wound Margin Thickened & Rolled Under -Granulation Amt Medium (34-66%) -Granulation Quality [place] -Slough/Fibrin Yes -Necrosis Amt Medium (34-66%) -Necrotic Tissue Type Adherent Slough -Structure Exposed N/A -Texture (Vivi-wound Skin Appearance) Assessed, Scarring -Moisture (Vivi-wound Skin Appearance) Assessed -Color (Vivi-wound Skin Appearance) Assessed -Temperature (Vivi-wound Skin No Abnormality Appearance) (Pt Warm) -Tenderness on Palpation (Vivi-wound No Skin Appearance) -Ulcer Cleansing Wound Cleanser -Foul Odor after Cleansing No -Anesthetic Used 5% Lidocaine Gel SCOTTY - Nurse 2 - General Ulcer CM Notes Start: 09/05/23 13:07 Freq: Status: Active Protocol: Activity Type Activity Date Activity User E-sign Co-sign Detail Recorded Client Recorded Date Recorded By Document 09/05/23 13:39 JF Laptop 09/05/23 13:41 JF 09/05/23 13:39 Wound Center Nurse 2 -Time 13:39 -Correct Patient Yes -Correct Side, Site, Position Yes -Correct Procedure Yes -Procedure Performed Yes -Type of Procedure Debridement -Clinical Debridement Muscle / Fascia -Tissue Removed Muscle,Fascia -Post Debridement (cm) - Length 4.6 -Post Debridement (cm) - Width 2.1 -Post Debridement (cm) - Depth 0.4 -Total Square (Post) (cm) 9.66 -Area of Debridement (cm) - Length 4.6 -Area of Debridement (cm) - Width 2.1 -Total Square (Area) (cm) 9.66 -Tunneling Yes -Tunneling Position (O'clock) 7 -Tunneling Distance (cm) 2.3 -Undermining/Tunneling No -Circular Undermining No -Wound/Ulcer Outcome Not Healed -Ulcer Cleansing Rinsed/ Irrigated with Saline -Foul Odor after Cleansing No -Bioengineered Tissue No -Bleeding Controlled with Pressure -Treatment Response Procedure Tolerated Well -Offloading No -Debridement - Muscle / Fascia, 1st Yes 20sq cm Pain Scale: 0-10 Numeric Is Patient Pain Free? Yes - Nurse 3 - General Ulcer D/C NN Start: 09/05/23 13:07 Freq: Status: Active Protocol: Activity Type Activity Date Activity User E-sign Co-sign Detail Recorded Client Recorded Date Recorded By Document 09/05/23 13:46 KW Desktop 09/05/23 13:46 KW 09/05/23 13:46 Wound Care Center Nurse 3 #14- L SACRAL -Primary Dressing Applied Hysept ($), Mepilex Border -Primary Dressing Covered/Secured with Dry Gauze -Mepilex Border 1 Pain Scale: 0-10 Numeric Is Patient Pain Free? Yes WC - Visit Discharge Discharge Condition Stable Ambulatory Status Wheelchair Transportation Private Auto Medication Reconcilliation completed & No provided to patient/care provider Clinical Summary of Care Provided Yes Assessment/Plan Assessment/Plan (1) Pressure injury of sacral region, stage 4: CODE(S): L89.154 - Pressure ulcer of sacral region, stage 4 (2) S/P laminectomy with spinal fusion: CODE(S): Z98.1 - Arthrodesis status (3) Paraplegia: CODE(S): G82.20 - Paraplegia, unspecified (4) Diabetes mellitus: CODE(S): E11.9 - Type 2 diabetes mellitus without complications (5) Weight loss, non-intentional: CODE(S): R63.4 - Abnormal weight loss (6) Tobacco use disorder: CODE(S): F17.200 - Nicotine dependence, unspecified, uncomplicated PLAN: Plan Wound care - Patient complained of the odor and the drainage. This is common with the Silver dressing. Will change to Dakin's dressing changes daily. There was no clinical evidence at this time. Wound culture 12/26/22 positive for Proteus miriabilis, Enterococcus faecalis, Streptococcus agalactiae, Anaerobic cocci and Bacteroides fragilis. She was treated with Augmentin. Wound culture 04/03/23 positive for Proteus mirabilis, Enterococcus faecalis, and Anaerobic cocci. She is being treated with Augmentin. Wound culture from 07/03/23 positive for Proteus mirabilis and Enterococcus faecalis which was treated with Augmentin. A wound care was obtained on 08/23/23. It was negative. Patient has diabetes mellitus. Her last HgbA1c from 09/18/20 was 5.9. For elective surgeries, the HgbA1c needs to be less than 8. Encouraged nutritional supplementation with protein to help the healing process. Stressed importance of not sitting or laying on her pressure ulcer for long periods of time. Encouraged patient to stop smoking as it may have deleterious effects on wound healing. Follow up one week.
[2023-09-11 13:51] VITALS: BP 139/100; PULSE 100; RESP 16; TEMP 35.9
--- NOTE | 2023-09-11 14:32 | PCM.WC.PN ---
History of Present Illness Date of Service: 09/11/23 Chief Complaint: Sacral ulcer History of Wound: Patient is a 63 year old female who previously was a patient here and known to me, but had back surgery in early September 2022 at [facility] and then went to rehab at [place] after that. She had a aurelia replaced in her back. Before her surgery, she was not able to lie flat due to increased pain, so she spent most of her time in her wheelchair. Now since her surgery, she is in too much back pain to sit in her wheelchair. She presents today with an ulcer to her sacrum. She was in the ED on 12/10/22 for increased wound drainage and was treated with Keflex, which she has completed. She does have home health to assist with dressing changes. She has lost 100 lbs since last being here in early September. Wound care - Dakin's dressing changes daily. Wound culture 12/26/22 positive for Proteus mirabilis, Enterococcus faecalis, Streptococcus agalactiae, Anaerobic cocci and Bacteroides fragilis. She was treated with Augmentin. Wound culture from 01/23/23 was positive for MRSA and Morganella morganii. The MRSA was treated with Doxycycline. Wound culture 04/03/23 positive for Proteus mirabilis, Enterococcus faecalis, and Anaerobic cocci. She was treated with Augmentin. Wound culture from 07/03/23 positive for Proteus mirabilis and Enterococcus faecalis which was treated with Augmentin. Wound culture was done on 08/23/23. It was negative. Today she denies fever. Her appetite is ok. She complains about the gauze from the Dakin's dressing getting shredded in the ulcer and was painful to remove. Progress of Wound: Improved. Patient noticed residual shredded gauze left in the ulcer and was painful to remove. Objective Data Objective Data Vital Signs: Vital Signs Temp Pulse Resp BP O2 Del Method 96.7 F L 100 16 139/100 H Room Air 09/11/23 13:51 09/11/23 13:51 09/11/23 13:51 09/11/23 13:51 09/11/23 13:51 Oxygen Delivery Method Room Air Charges/Coding Procedures Integumentary 111xxx-113xx: 50757 Shila musc/fascia 20 sq cm/< (ICD-10 - L89.154, Z98.1, G82.20, E11.9, R63.4, F17.200, Z86.14) Debridement Note Debridement Note Wound debrided: #14 Sacral area. Laterality: Not Applicable Wound Grade/Stage: IV. Type of Debridement: Excisional debridement Anesthesia Used: 5% Lidocaine Gel Depth: Down to and including healthy tissue, in the subcutaneous layer, to muscle and to bone (bone is palpable but not exposed.) Percentage of wound debrided: 100 Instrument Used: 5mm curette Tissue Removed: subcutaneous tissue, senescent cells, devitalized tissue and muscle. Severity: Fat Layer Exposed (muscle is exposed. bone is palpable but not exposed.) Amount of bleeding with debridement: Mild Bleeding Controlled with: Pressure and Compression and gauze Patient tolerated procedure: Patient tolerated procedure well Post-Debridement Measurements and Additional Note: Post-Debridement Measurements/Treatment - Nurse 1 - General Ulcer Assessment Start: 09/05/23 13:07 Freq: Status: Active Protocol: .ZACK Activity Type Activity Date Activity User E-sign Co-sign Detail Recorded Client Recorded Date Recorded By Document 09/05/23 13:07 Callvine Desktop 09/05/23 13:18 Callvine Document 09/11/23 13:51 [facility] Desktop 09/11/23 14:00 [email or web address] 09/05/23 09/11/23 13:07 13:51 - Today's Visit Information Type of service Follow-up Visit Follow-up Visit (Physician/SENIOR ADMINISTRATIVE SERVICES OFFICER (Physician/SENIOR ADMINISTRATIVE SERVICES OFFICER ) ) Arrival Mode Wheelchair Wheelchair Transfer Assistance Other Transfer Assist (Other) 2 Patient Identification Verified (Name & Yes Yes ) Patient Requires Transmission-Based No Precautions Vital Signs Temperature (97.8 F-99.1 F) 96.9 F L 96.7 F L Temperature Source Temporal Temporal Pulse Rate (60-100) 102 H 100 Pulse Location Monitor Monitor Respiratory Rate (12-18) 16 16 Respiratory rate source Observation Observation Oxygen Delivery Method Room Air Room Air Blood Pressure (90/60-120/80) 138/67 H 139/100 H Blood Pressure Mean (mm Hg) 90 113 Source Monitor Monitor Position Right Lateral Sitting Blood Pressure Location Left Arm Left Arm History Since Last Visit- (Skip if this is Patient's initial visit) Have you changed medications since your No No last visit? Any new allergies or adverse reactions No No Had a fall/change in ADL's that may No No increase risk of falls Signs or symptoms of abuse and/or No No neglect since last visit Have you been in the hospital since your No No last visit? Has dressing in place as prescribed Yes Yes Has compression in place as prescribed N/A N/A Has offloadiing in place as prescribed N/A N/A Experienced any changes in pain level or No No management Left Footwear Slipper Slipper Right Footwear Slipper Slipper Pain Scale: 0-10 Numeric Is Patient Pain Free? Yes Yes WC - Nurse 1 - General Ulcer Measurement Start: 09/05/23 13:07 Freq: Status: Active Protocol: Activity Type Activity Date Activity User E-sign Co-sign Detail Recorded Client Recorded Date Recorded By Document 09/05/23 13:07 KW Desktop 09/05/23 13:18 KW Document 09/11/23 13:51 BM Desktop 09/11/23 14:00 BMF 09/05/23 09/11/23 13:07 13:51 Wound Center Nurse 1 #14- L SACRAL -Combined with other wound No No -Current Size (cm) - Length 4.6 3.3 -Current Size (cm) - Width 2 2.1 -Current Size (cm) - Depth 0.4 0.6 -Total Square Cm 9.2 6.93 -Date of Last Picture (Recall this 09/11/23 field) -Photo Taken Yes -Epithelialization None Present -Tunneling No No -Undermining/Tunneling Yes Yes -Undermining/Tunneling Starts (O'clock 7 7 ) -Undermining/Tunneling Ends (O'clock) 3 5 -Maximum Distance (cm) 2.3 4.2 -Circular Undermining No No -Exudate Amt Large Medium -Exudate Type Serosanguineous Serosanguineous -Wound Margin Thickened & Thickened & Rolled Under Rolled Under -Granulation Amt Medium (34-66%) Medium (34-66%) -Granulation Quality [place] Pale,Red -Slough/Fibrin Yes Yes -Necrosis Amt Medium (34-66%) Medium (34-66%) -Necrotic Tissue Type Adherent Slough Adherent Slough -Structure Exposed N/A -Texture (Vivi-wound Skin Appearance) Assessed, Assessed, Scarring Scarring -Moisture (Vivi-wound Skin Appearance) Assessed Assessed -Color (Vivi-wound Skin Appearance) Assessed Assessed, Erythema -Temperature (Vivi-wound Skin No Abnormality No Abnormality Appearance) (Pt Warm) (Pt Warm) -Tenderness on Palpation (Vivi-wound No No Skin Appearance) -Ulcer Cleansing Wound Cleanser Soap and Water -Foul Odor after Cleansing No No -Anesthetic Used 5% Lidocaine 5% Lidocaine Gel Gel WC - Nurse 2 - General Ulcer CM Notes Start: 09/05/23 13:07 Freq: Status: Active Protocol: Activity Type Activity Date Activity User E-sign Co-sign Detail Recorded Client Recorded Date Recorded By Document 09/05/23 13:39 Laptop 09/05/23 13:41 Document 09/11/23 14:08 Laptop 09/11/23 14:10 09/05/23 09/11/23 13:39 14:08 Wound Center Nurse 2 #14- L SACRAL -Time 13:39 14:08 -Correct Patient Yes Yes -Correct Side, Site, Position Yes Yes -Correct Procedure Yes Yes -Procedure Performed Yes Yes -Type of Procedure Debridement Debridement -Clinical Debridement Muscle / Fascia Muscle / Fascia -Tissue Removed Muscle,Fascia Muscle,Fascia -Post Debridement (cm) - Length 4.6 3.3 -Post Debridement (cm) - Width 2.1 2.2 -Post Debridement (cm) - Depth 0.4 0.6 -Total Square (Post) (cm) 9.66 7.26 -Area of Debridement (cm) - Length 4.6 3.3 -Area of Debridement (cm) - Width 2.1 2.2 -Total Square (Area) (cm) 9.66 7.26 -Tunneling Yes No -Tunneling Position (O'clock) 7 -Tunneling Distance (cm) 2.3 -Undermining/Tunneling No Yes -Undermining/Tunneling Starts (O'clock 7 ) -Undermining/Tunneling Ends (O'clock) 5 -Maximum Distance (cm) 4.2 -Circular Undermining No No -Wound/Ulcer Outcome Not Healed Not Healed -Ulcer Cleansing Rinsed/ Rinsed/ Irrigated with Irrigated with Saline Saline -Foul Odor after Cleansing No No -Bioengineered Tissue No No -Bleeding Controlled with Pressure Pressure -Treatment Response Procedure Procedure Tolerated Well Tolerated Well -Offloading No No -Pressure Reduction Wheelchair cushion -Debridement - Muscle / Fascia, 1st Yes Yes 20sq cm Pain Scale: 0-10 Numeric Is Patient Pain Free? Yes Yes WC - Nurse 3 - General Ulcer D/C NN Start: 09/05/23 13:07 Freq: Status: Active Protocol: Activity Type Activity Date Activity User E-sign Co-sign Detail Recorded Client Recorded Date Recorded By Document 09/05/23 13:46 KW Desktop 09/05/23 13:46 KW Document 09/11/23 14:25 BM Desktop 09/11/23 14:26 [facility] 09/05/23 09/11/23 13:46 14:25 Wound Care Center Nurse 3 #14- L SACRAL -Ulcer Cleansing Rinsed/ Irrigated with Saline -Foul Odor after Cleansing No -Primary Dressing Applied Hysept ($), Optilok 6.5x10, Mepilex Border Silvercel -Primary Dressing Covered/Secured with Dry Gauze -Mepilex Border 1 -Optilok 6.5x10 1 -Silvercel 1 Treatment Response Procedure Tolerated Well Pain Scale: 0-10 Numeric Is Patient Pain Free? Yes Yes - Visit Discharge Discharge Condition Stable Stable Ambulatory Status Wheelchair Wheelchair Transportation Private Auto Medication Reconcilliation completed & No provided to patient/care provider Clinical Summary of Care Provided Yes Facility Type Home Health Assessment/Plan Assessment/Plan (1) Pressure injury of sacral region, stage 4: CODE(S): L89.154 - Pressure ulcer of sacral region, stage 4 (2) S/P laminectomy with spinal fusion: CODE(S): Z98.1 - Arthrodesis status (3) Paraplegia: CODE(S): G82.20 - Paraplegia, unspecified (4) Diabetes mellitus: CODE(S): E11.9 - Type 2 diabetes mellitus without complications (5) Weight loss, non-intentional: CODE(S): R63.4 - Abnormal weight loss (6) Tobacco use disorder: CODE(S): F17.200 - Nicotine dependence, unspecified, uncomplicated (7) Personal history of Methicillin resistant Staphylococcus aureus infection: CODE(S): Z86.14 - Personal history of Methicillin resistant Staphylococcus aureus infection PLAN: Plan Wound care - Patient complained of the gauze from the Dakin's dressing shredding into the ulcer, and it was painful to try and removed. Will go back to the Silver dressing changes. I did not see any residual gauze in the ulcer at this time. Wound culture 12/26/22 positive for Proteus miriabilis, Enterococcus faecalis, Streptococcus agalactiae, Anaerobic cocci and Bacteroides fragilis. She was treated with Augmentin. Wound culture from 01/23/23 was positive for MRSA and Morganella morganii. MRSA was treated with Doxycycline. Wound culture 04/03/23 positive for Proteus mirabilis, Enterococcus faecalis, and Anaerobic cocci. She is being treated with Augmentin. Wound culture from 07/03/23 positive for Proteus mirabilis and Enterococcus faecalis which was treated with Augmentin. A wound care was obtained on 08/23/23. It was negative. Patient has diabetes mellitus. Her last HgbA1c from 09/18/20 was 5.9. For elective surgeries, the HgbA1c needs to be less than 8. Encouraged nutritional supplementation with protein to help the healing process. Stressed importance of not sitting or laying on her pressure ulcer for long periods of time. Encouraged patient to stop smoking as it may have deleterious effects on wound healing. With the intermittent pain the patient has been experiencing, will order a CT Pelvis to evaluate for osteomyelitis. Follow up one week.
[2023-09-20 13:26] VITALS: BP 101/65; PULSE 68; RESP 18; TEMP 37
--- NOTE | 2023-09-20 14:44 | CT_ITS ---
STUDY: CT PELVIS WITHOUT CONTRAST REASON FOR EXAM: Female, 63 years old. SACRAL PRESSURE ULCER RADIATION DOSAGE (If Supplied By Facility): CTDIvol = ( 7.22 ) mGy, DLP = ( 241.53 ) mGycm TECHNIQUE: Transaxial imaging of the pelvis was performed with oral contrast, and without intravenous administration of contrast material. Multiplanar coronal and sagittal images were reformatted. Individualized dose optimization techniques were used for this CT. COMPARISON: Comparison is made with prior study December 10, 2022. FINDINGS: There is evidence of tissue defect in the medial aspect of the right buttock abutting the distal sacrum. This most likely represents an ulcerated pressure ulcer. Normal urinary bladder. Normal visualized small intestine. Moderate amount of fecal material is seen in the colon. There is no pelvic fluid. There is no pelvic mass lesion or lymphadenopathy. There is diffuse atherosclerotic calcification of the pelvic arteries. Phleboliths are seen in the pelvis. Normal abdominal wall. Extensive metallic streak artifacts due to fusion with intrapedicular screw and aurelia fixation the lower lumbar spine. CT/Pelvis without IV Contrast IMPRESSION: Moderate-sized sacral pressure ulcer in the medial aspect of the left buttock abutting the distal portion of the sacrum. Electronically Signed: Raúl Soto MD at 15:45 EST ,
--- NOTE | 2023-09-20 15:10 | PN.PCM_ITS ---
History of Present Illness Date of Service: 09/20/23 Chief Complaint: Sacral ulcer History of Wound: Patient is a 63 year old female who previously was a patient here and known to me, but had back surgery in early September 2022 at [facility] and then went to rehab at [place] after that. She had a aurelia replaced in her back. Before her surgery, she was not able to lie flat due to increased pain, so she spent most of her time in her wheelchair. Now since her surgery, she is in too much back pain to sit in her wheelchair. She presents today with an ulcer to her sacrum. She was in the ED on 12/10/22 for increased wound drainage and was treated with Keflex, which she has completed. She does have home health to assist with dressing changes. She has lost 100 lbs since last being here in early September. Wound care - Silver dressing changes daily. Wound culture 12/26/22 positive for Proteus mirabilis, Enterococcus faecalis, Streptococcus agalactiae, Anaerobic cocci and Bacteroides fragilis. She was treated with Augmentin. Wound culture from 01/23/23 was positive for MRSA and Morganella morganii. The MRSA was treated with Doxycycline. Wound culture 04/03/23 positive for Proteus mirabilis, Enterococcus faecalis, and Anaerobic cocci. She was treated with Augmentin. Wound culture from 07/03/23 positive for Proteus mirabilis and Enterococcus faecalis which was treated with Augmentin. Wound culture was done on 08/23/23. It was negative. Today she denies fever. Her appetite is ok. Progress of Wound: Improved. Objective Data Objective Data Vital Signs: Vital Signs Temp Pulse Resp BP O2 Del Method 98.6 F 68 18 101/65 Room Air 09/20/23 13:26 09/20/23 13:26 09/20/23 13:26 09/20/23 13:26 09/20/23 13:26 Oxygen Delivery Method Room Air Lab / Micro Data Attestation: I reviewed the patient's lab results. Lab results narrative: Patient has diabetes mellitus. Her last HgbA1c from 09/18/20 was 5.9. For elective surgeries, the HgbA1c needs to be less than 8. Charges/Coding Procedures Integumentary 111xxx-113xx: 38667 Shila musc/fascia 20 sq cm/< (ICD-10 - L89.154, Z98.1, G82.20, E11.9, R63.4, F17.200, Z86.14) Debridement Note Debridement Note Wound debrided: #14 Sacral area. Laterality: Not Applicable Wound Grade/Stage: IV. Type of Debridement: Excisional debridement Anesthesia Used: 5% Lidocaine Gel and Cetacaine Depth: Down to and including healthy tissue, in the subcutaneous layer, to muscle and to bone (bone is palpable but not exposed.) Percentage of wound debrided: 100 Instrument Used: 5mm curette Tissue Removed: subcutaneous tissue, senescent cells, devitalized tissue and muscle. Severity: Fat Layer Exposed (muscle is exposed. bone is palpable but not exposed.) Amount of bleeding with debridement: Mild Bleeding Controlled with: Pressure and Compression and gauze Patient tolerated procedure: Patient tolerated procedure well Post-Debridement Measurements and Additional Note: Post-Debridement Measurements/Treatment - Nurse 1 - General Ulcer Assessment Start: 09/05/23 13:07 Freq: Status: Active Protocol: TAISHA Activity Type Activity Date Activity User E-sign Co-sign Detail Recorded Client Recorded Date Recorded By Document 09/05/23 13:07 [email or web address] Desktop 09/05/23 13:18 [email or web address] Document 09/11/23 13:51 [employer] Desktop 09/11/23 14:00 [email or web address] Document 09/20/23 13:26 [email or web address] Desktop 09/20/23 13:41 [facility] 09/05/23 09/11/23 09/20/23 13:07 13:51 13:26 - Today's Visit Information Type of service Follow-up Visit Follow-up Visit Follow-up Visit (Physician/TRIMMER AND BORER MACHINE OPERATOR (Physician/TRIMMER AND BORER MACHINE OPERATOR (Physician/TRIMMER AND BORER MACHINE OPERATOR ) ) ) Arrival Mode Wheelchair Wheelchair Wheelchair Transfer Assistance Other Other Transfer Assist (Other) 2 1 Patient Identification Verified (Name & Yes Yes Yes ) Patient Requires Transmission-Based No No Precautions Vital Signs Temperature (97.8 F-99.1 F) 96.9 F L 96.7 F L 98.6 F Temperature Source Temporal Temporal Temporal Pulse Rate (60-100) 102 H 100 68 Pulse Location Monitor Monitor Monitor Respiratory Rate (12-18) 16 16 18 Respiratory rate source Observation Observation Observation Oxygen Delivery Method Room Air Room Air Room Air Blood Pressure (90/60-120/80) 138/67 H 139/100 H 101/65 Blood Pressure Mean (mm Hg) 90 113 77 Source Monitor Monitor Monitor Position Right Lateral Sitting Sitting Blood Pressure Location Left Arm Left Arm Right Arm History Since Last Visit- (Skip if this is Patient's initial visit) Have you changed medications since your No No No last visit? Any new allergies or adverse reactions No No No Had a fall/change in ADL's that may No No No increase risk of falls Signs or symptoms of abuse and/or No No No neglect since last visit Have you been in the hospital since your No No No last visit? Has dressing in place as prescribed Yes Yes Yes Has compression in place as prescribed N/A N/A N/A Has offloadiing in place as prescribed N/A N/A N/A Experienced any changes in pain level or No No No management Left Footwear Slipper Slipper Slipper Right Footwear Slipper Slipper Slipper Pain Scale: 0-10 Numeric Is Patient Pain Free? Yes Yes Yes WC - Nurse 1 - General Ulcer Measurement Start: 09/05/23 13:07 Freq: Status: Active Protocol: Activity Type Activity Date Activity User E-sign Co-sign Detail Recorded Client Recorded Date Recorded By Document 09/05/23 13:07 [email or web address] Desktop 09/05/23 13:18 [email or web address] Document 09/11/23 13:51 [email or web address] Desktop 09/11/23 14:00 BMF Document 09/20/23 13:26 [email or web address] Desktop 09/20/23 13:41 BMF 09/05/23 09/11/23 09/20/23 13:07 13:51 13:26 Wound Center Nurse 1 #14- L SACRAL -Combined with other wound No No No -Current Size (cm) - Length 4.6 3.3 3.4 -Current Size (cm) - Width 2 2.1 2.2 -Current Size (cm) - Depth 0.4 0.6 1.1 -Total Square Cm 9.2 6.93 7.48 -Date of Last Picture (Recall this 09/11/23 09/20/23 field) -Photo Taken Yes Yes -Epithelialization None Present None Present -Tunneling No No No -Undermining/Tunneling Yes Yes Yes -Undermining/Tunneling Starts (O'clock 7 7 8 ) -Undermining/Tunneling Ends (O'clock) 3 5 5 -Maximum Distance (cm) 2.3 4.2 1.9 -Circular Undermining No No No -Exudate Amt Large Medium Medium -Exudate Type Serosanguineous Serosanguineous Serosanguineous -Wound Margin Thickened & Thickened & Thickened & Rolled Under Rolled Under Rolled Under -Granulation Amt Medium (34-66%) Medium (34-66%) Medium (34-66%) -Granulation Quality [place] Pale,Red Red -Slough/Fibrin Yes Yes Yes -Necrosis Amt Medium (34-66%) Medium (34-66%) Medium (34-66%) -Necrotic Tissue Type Adherent Slough Adherent Slough Adherent Slough -Structure Exposed N/A -Texture (Vivi-wound Skin Appearance) Assessed, Assessed, Assessed, Scarring Scarring Scarring -Moisture (Vivi-wound Skin Appearance) Assessed Assessed Assessed -Color (Vivi-wound Skin Appearance) Assessed Assessed, Assessed Erythema -Temperature (Vivi-wound Skin No Abnormality No Abnormality No Abnormality Appearance) (Pt Warm) (Pt Warm) (Pt Warm) -Tenderness on Palpation (Vivi-wound No No No Skin Appearance) -Ulcer Cleansing Wound Cleanser Soap and Water Rinsed/ Irrigated with Saline -Foul Odor after Cleansing No No No -Anesthetic Used 5% Lidocaine 5% Lidocaine 5% Lidocaine Gel Gel Gel WC - Nurse 2 - General Ulcer CM Notes Start: 09/05/23 13:07 Freq: Status: Active Protocol: Activity Type Activity Date Activity User E-sign Co-sign Detail Recorded Client Recorded Date Recorded By Document 09/05/23 13:39 Laptop 09/05/23 13:41 Document 09/11/23 14:08 Laptop 09/11/23 14:10 Document 09/20/23 13:58 MW Desktop 09/20/23 14:06 MW 09/05/23 09/11/23 09/20/23 13:39 14:08 13:58 Wound Center Nurse 2 #14- L SACRAL -Time 13:39 14:08 14:01 -Correct Patient Yes Yes Yes -Correct Side, Site, Position Yes Yes Yes -Correct Procedure Yes Yes Yes -Procedure Performed Yes Yes Yes -Type of Procedure Debridement Debridement Debridement -Clinical Debridement Muscle / Fascia Muscle / Fascia Muscle / Fascia -Tissue Removed Muscle,Fascia Muscle,Fascia Muscle,Fascia -Post Debridement (cm) - Length 4.6 3.3 3.5 -Post Debridement (cm) - Width 2.1 2.2 2.3 -Post Debridement (cm) - Depth 0.4 0.6 1.1 -Total Square (Post) (cm) 9.66 7.26 8.05 -Area of Debridement (cm) - Length 4.6 3.3 3.5 -Area of Debridement (cm) - Width 2.1 2.2 2.3 -Total Square (Area) (cm) 9.66 7.26 8.05 -Tunneling Yes No No -Tunneling Position (O'clock) 7 -Tunneling Distance (cm) 2.3 -Undermining/Tunneling No Yes No -Undermining/Tunneling Starts (O'clock 7 ) -Undermining/Tunneling Ends (O'clock) 5 -Maximum Distance (cm) 4.2 -Circular Undermining No No No -Wound/Ulcer Outcome Not Healed Not Healed Not Healed -Ulcer Cleansing Rinsed/ Rinsed/ Rinsed/ Irrigated with Irrigated with Irrigated with Saline Saline Saline -Foul Odor after Cleansing No No No -Bioengineered Tissue No No No -Bleeding Controlled with Pressure Pressure Pressure -Treatment Response Procedure Procedure Procedure Tolerated Well Tolerated Well Tolerated Well -Offloading No No No -Pressure Reduction Wheelchair cushion -Debridement - Muscle / Fascia, 1st Yes Yes Yes 20sq cm Pain Scale: 0-10 Numeric Is Patient Pain Free? Yes Yes Yes WC - Nurse 3 - General Ulcer D/C NN Start: 09/05/23 13:07 Freq: Status: Active Protocol: Activity Type Activity Date Activity User E-sign Co-sign Detail Recorded Client Recorded Date Recorded By Document 09/05/23 13:46 KW Desktop 09/05/23 13:46 KW Document 09/11/23 14:25 BMF Desktop 09/11/23 14:26 BMF Document 09/20/23 14:06 MW Desktop 09/20/23 14:10 MW 09/05/23 09/11/23 09/20/23 13:46 14:25 14:06 Wound Care Center Nurse 3 #14- L SACRAL -Ulcer Cleansing Rinsed/ Rinsed/ Irrigated with Irrigated with Saline Saline -Foul Odor after Cleansing No No -Negative Pressure Wound Therapy N/A -Primary Dressing Applied Hysept ($), Optilok 6.5x10, Aquacel AG 4x4, Mepilex Border Silvercel Mepilex Border -Primary Dressing Covered/Secured with Dry Gauze -Aquacel AG 4x4 1 -Mepilex Border 1 1 -Optilok 6.5x10 1 -Silvercel 1 Treatment Response Procedure Procedure Tolerated Well Tolerated Well Pain Scale: 0-10 Numeric Is Patient Pain Free? Yes Yes Yes Teaching: Wound Center Dressing Your Wound -Person Taught Patient -Teaching Method Discussion -Response to teaching Verbalize understanding WC - Visit Discharge Discharge Condition Stable Stable Stable Ambulatory Status Wheelchair Wheelchair Ambulatory Transportation Private Auto Private Auto Accompanied by DAUGHTER Medication Reconcilliation completed & No No provided to patient/care provider Clinical Summary of Care Provided Yes Yes Facility Type Home Health Assessment/Plan Assessment/Plan (1) Pressure injury of sacral region, stage 4: CODE(S): L89.154 - Pressure ulcer of sacral region, stage 4 (2) S/P laminectomy with spinal fusion: CODE(S): Z98.1 - Arthrodesis status (3) Paraplegia: CODE(S): G82.20 - Paraplegia, unspecified (4) Diabetes mellitus: CODE(S): E11.9 - Type 2 diabetes mellitus without complications (5) Weight loss, non-intentional: CODE(S): R63.4 - Abnormal weight loss (6) Tobacco use disorder: CODE(S): F17.200 - Nicotine dependence, unspecified, uncomplicated (7) Personal history of Methicillin resistant Staphylococcus aureus infection: CODE(S): Z86.14 - Personal history of Methicillin resistant Staphylococcus aureus infection PLAN: Plan Wound care - Continue Silver dressing changes. Wound culture 12/26/22 positive for Proteus miriabilis, Enterococcus faecalis, Streptococcus agalactiae, Anaerobic cocci and Bacteroides fragilis. She was treated with Augmentin. Wound culture from 01/23/23 was positive for MRSA and Morganella morganii. MRSA was treated with Doxycycline. Wound culture 04/03/23 positive for Proteus mirabilis, Enterococcus faecalis, and Anaerobic cocci. She is being treated with Augmentin. Wound culture from 07/03/23 positive for Proteus mirabilis and Enterococcus faecalis which was treated with Augmentin. A wound care was obtained on 08/23/23. It was negative. Patient has diabetes mellitus. Her last HgbA1c from 09/18/20 was 5.9. For elective surgeries, the HgbA1c needs to be less than 8. Encouraged nutritional supplementation with protein to help the healing process. Stressed importance of not sitting or laying on her pressure ulcer for long periods of time. Encouraged patient to stop smoking as it may have deleterious effects on wound healing. With the intermittent pain the patient has been experiencing, will order a CT Pelvis to evaluate for osteomyelitis which is scheduled for later today. Follow up one week.
== END 2023-09-21 23:59 | disposition home or self-care (01) ==
LOC: WC 13:30
PROVIDERS: PCP Internal Medicine; Referring Provider Obstetrics & Gynecology; Visit Provider Nurse Practitioner Family
DX: L89.154 Pressure ulcer of sacral region, stage 4 (principal); G82.20 Paraplegia, unspecified; E11.9 Type 2 diabetes mellitus without complications; Z98.1 Arthrodesis status; R63.4 Abnormal weight loss; F17.200 Nicotine dependence, unspecified, uncomplicated
CPT/HCPCS: 11043; 72192

== ENCOUNTER 2023-10-17 14:00 | Outpatient (RCR) | payer MEDICARE, MEDICAID, SELFPAY ==
[2023-09-22 00:24] VITALS: BP 101/65; PULSE 68; RESP 18; TEMP 37
[2023-09-27 13:30] VITALS: BP 100/69; PULSE 106; RESP 18; TEMP 36.2
--- NOTE | 2023-09-27 14:10 | PN.PCM_ITS ---
History of Present Illness Date of Service: 09/27/23 Chief Complaint: Sacral ulcer History of Wound: Patient is a 63 year old female who previously was a patient here and known to me, but had back surgery in early September 2022 at [facility] and then went to rehab at [place] after that. She had a aurelia replaced in her back. Before her surgery, she was not able to lie flat due to increased pain, so she spent most of her time in her wheelchair. Now since her surgery, she is in too much back pain to sit in her wheelchair. She presents today with an ulcer to her sacrum. She was in the ED on 12/10/22 for increased wound drainage and was treated with Keflex, which she has completed. She does have home health to assist with dressing changes. She has lost 100 lbs since last being here in early September. Wound care - Silver dressing changes daily. Wound culture 12/26/22 positive for Proteus mirabilis, Enterococcus faecalis, Streptococcus agalactiae, Anaerobic cocci and Bacteroides fragilis. She was treated with Augmentin. Wound culture from 01/23/23 was positive for MRSA and Morganella morganii. The MRSA was treated with Doxycycline. Wound culture 04/03/23 positive for Proteus mirabilis, Enterococcus faecalis, and Anaerobic cocci. She was treated with Augmentin. Wound culture from 07/03/23 positive for Proteus mirabilis and Enterococcus faecalis which was treated with Augmentin. Wound culture was done on 08/23/23. It was negative. She had CT Pelvis on 09/20/23. It showed evidence of tissue defect in the medial aspect of the right buttock abutting the distal sacrum. This most likely represents an ulcerated pressure ulcer. Normal urinary bladder. Normal visualized small intestine. Moderate amount of fecal material is seen in the colon. There is no pelvic fluid. There is no pelvic mass lesion or lymphadenopathy. There is diffuse atherosclerotic calcification of the pelvic arteries. Phleboliths are seen in the pelvis. Normal abdominal wall. Extensive metallic streak artifacts due to fusion with intrapedicular screw and aurelia fixation the lower lumbar spine. Today she denies fever. Her appetite is ok. Progress of Wound: Slightly improved. Objective Data Objective Data Vital Signs: Vital Signs Temp Pulse Resp BP 97.1 F L 106 H 18 100/69 09/27/23 13:30 09/27/23 13:30 09/27/23 13:30 09/27/23 13:30 Lab / Micro Data Attestation: I reviewed the patient's lab results. Lab results narrative: Patient has diabetes mellitus. Her last HgbA1c from 09/18/20 was 5.9. For elective surgeries, the HgbA1c needs to be less than 8. Charges/Coding Procedures Integumentary 111xxx-113xx: 60213 Shila musc/fascia 20 sq cm/< (ICD-10 - L89.154, Z98.1, G82.20, E11.9, R63.4, F17.200, Z86.14) Debridement Note Debridement Note Wound debrided: #14 Sacral area. Laterality: Not Applicable Wound Grade/Stage: IV. Type of Debridement: Excisional debridement Anesthesia Used: 5% Lidocaine Gel and Cetacaine Depth: Down to and including healthy tissue, in the subcutaneous layer, to muscle and to bone (bone is palpable but not exposed.) Percentage of wound debrided: 100 Instrument Used: 5mm curette Tissue Removed: subcutaneous tissue, senescent cells, devitalized tissue and muscle. Severity: Fat Layer Exposed (muscle is exposed. bone is palpable but not exposed.) Amount of bleeding with debridement: Mild Bleeding Controlled with: Pressure and Compression and gauze Patient tolerated procedure: Patient tolerated procedure well Post-Debridement Measurements and Additional Note: Post-Debridement Measurements/Treatment - Nurse 1 - General Ulcer Assessment Start: 09/27/23 13:30 Freq: Status: Active Protocol: .LOWEXChrissy Activity Type Activity Date Activity User E-sign Co-sign Detail Recorded Client Recorded Date Recorded By Document 09/27/23 13:30 Desktop 09/27/23 13:33 09/27/23 13:30 - Today's Visit Information Type of service Follow-up Visit (Physician/SURGICAL GARMENT FITTER ) Arrival Mode Wheelchair Transfer Assistance Manual Patient Identification Verified (Name & Yes ) Patient Requires Transmission-Based No Precautions Vital Signs Temperature (97.8 F-99.1 F) 97.1 F L Temperature Source Temporal Pulse Rate (60-100) 106 H Pulse Location Monitor Respiratory Rate (12-18) 18 Respiratory rate source Observation Blood Pressure (90/60-120/80) 100/69 Blood Pressure Mean (mm Hg) 79 Source Monitor Position Semi-Fowlers Blood Pressure Location Left Arm History Since Last Visit- (Skip if this is Patient's initial visit) Have you changed medications since your No last visit? Any new allergies or adverse reactions No Had a fall/change in ADL's that may No increase risk of falls Signs or symptoms of abuse and/or No neglect since last visit Have you been in the hospital since your No last visit? Has dressing in place as prescribed Yes Has compression in place as prescribed No Has offloadiing in place as prescribed Yes Experienced any changes in pain level or No management Pain Scale: 0-10 Numeric Is Patient Pain Free? No buttock area -Description Aching -Intensity 7 -Duration (hours) Chronic -Pain Behavior Restlessness -Pain Aggravating Factors Sitting -Alleviating Factors/Interventions Medication -Effectiveness of Alleviating Factor/ Minimally Intervention effective WC - Nurse 1 - General Ulcer Measurement Start: 09/27/23 13:30 Freq: Status: Active Protocol: Activity Type Activity Date Activity User E-sign Co-sign Detail Recorded Client Recorded Date Recorded By Document 09/27/23 13:30 RB Desktop 09/27/23 13:33 RB 09/27/23 13:30 Wound Center Nurse 1 #14- L SACRAL -Combined with other wound No -Current Size (cm) - Length 3.9 -Current Size (cm) - Width 2 -Current Size (cm) - Depth 1.2 -Total Square Cm 7.8 -Tunneling No -Undermining/Tunneling Yes -Undermining/Tunneling Starts (O'clock 9 ) -Undermining/Tunneling Ends (O'clock) 2 -Maximum Distance (cm) 1.5 -Circular Undermining No -Exudate Amt Large -Exudate Type Serosanguineous -Wound Margin Thickened & Rolled Under -Granulation Amt Large (67-100%) -Granulation Quality [place] -Slough/Fibrin Yes -Necrosis Amt Medium (34-66%) -Necrotic Tissue Type Adherent Slough -Structure Exposed N/A -Texture (Vivi-wound Skin Appearance) Assessed, Scarring -Moisture (Vivi-wound Skin Appearance) Assessed -Color (Vivi-wound Skin Appearance) Assessed -Temperature (Vivi-wound Skin No Abnormality Appearance) (Pt Warm) -Tenderness on Palpation (Vivi-wound No Skin Appearance) -Ulcer Cleansing Wound Cleanser -Foul Odor after Cleansing No -Anesthetic Used 5% Lidocaine Gel WC - Nurse 2 - General Ulcer CM Notes Start: 09/27/23 13:30 Freq: Status: Active Protocol: Activity Type Activity Date Activity User E-sign Co-sign Detail Recorded Client Recorded Date Recorded By Document 09/27/23 13:51 GM Desktop 09/27/23 13:58 GM Edit Result 09/27/23 13:51 GM (1) Desktop 09/27/23 14:00 GM (1) #14- L SACRAL - Tissue Removed Subcutaneous => Muscle,Fascia 09/27/23 13:51 Wound Center Nurse 2 -Time 13:51 -Correct Patient Yes -Correct Side, Site, Position Yes -Correct Procedure Yes -Procedure Performed Yes -Type of Procedure Debridement -Clinical Debridement Subcutaneous -Tissue Removed Muscle,Fascia -Post Debridement (cm) - Length 3 -Post Debridement (cm) - Width 2 -Post Debridement (cm) - Depth 1.3 -Total Square (Post) (cm) 6 -Area of Debridement (cm) - Length 3 -Area of Debridement (cm) - Width 2 -Total Square (Area) (cm) 6 -Tunneling No -Undermining/Tunneling Yes -Undermining/Tunneling Starts #2 (O' 10 clock) -Undermining/Tunneling Ends #2 (O' 2 clock) -Maximum Distance #2 (cm) 1.5 -Circular Undermining No -Wound/Ulcer Outcome Not Healed -Ulcer Cleansing Rinsed/ Irrigated with Saline -Foul Odor after Cleansing No -Bioengineered Tissue No -Bleeding Controlled with Pressure -Treatment Response Procedure Tolerated Well -Assistive Device(s) Wheelchair -Pressure Reduction Wheelchair cushion -Debridement - Subq, 1st 20sq cm Yes Pain Scale: 0-10 Numeric Is Patient Pain Free? Yes Assessment/Plan Assessment/Plan (1) Pressure injury of sacral region, stage 4: CODE(S): L89.154 - Pressure ulcer of sacral region, stage 4 (2) S/P laminectomy with spinal fusion: CODE(S): Z98.1 - Arthrodesis status (3) Paraplegia: CODE(S): G82.20 - Paraplegia, unspecified (4) Diabetes mellitus: CODE(S): E11.9 - Type 2 diabetes mellitus without complications (5) Weight loss, non-intentional: CODE(S): R63.4 - Abnormal weight loss (6) Tobacco use disorder: CODE(S): F17.200 - Nicotine dependence, unspecified, uncomplicated (7) Personal history of Methicillin resistant Staphylococcus aureus infection: CODE(S): Z86.14 - Personal history of Methicillin resistant Staphylococcus aureus infection PLAN: Plan Wound care - Continue Silver dressing changes. Wound culture 12/26/22 positive for Proteus miriabilis, Enterococcus faecalis, Streptococcus agalactiae, Anaerobic cocci and Bacteroides fragilis. She was treated with Augmentin. Wound culture from 01/23/23 was positive for MRSA and Morganella morganii. MRSA was treated with Doxycycline. Wound culture 04/03/23 positive for Proteus mirabilis, Enterococcus faecalis, and Anaerobic cocci. She is being treated with Augmentin. Wound culture from 07/03/23 positive for Proteus mirabilis and Enterococcus faecalis which was treated with Augmentin. A wound care was obtained on 08/23/23. It was negative. CT Pelvis was done on 09/20/23. It showed evidence of tissue defect in the medial aspect of the right buttock abutting the distal sacrum. This most likely represents an ulcerated pressure ulcer. Normal urinary bladder. Normal visualized small intestine. Moderate amount of fecal material is seen in the colon. There is no pelvic fluid. There is no pelvic mass lesion or lymphadenopathy. There is diffuse atherosclerotic calcification of the pelvic arteries. Phleboliths are seen in the pelvis. Normal abdominal wall. Extensive metallic streak artifacts due to fusion with intrapedicular screw and aurelia fixation the lower lumbar spine. Patient has diabetes mellitus. Her last HgbA1c from 09/18/20 was 5.9. For elective surgeries such as a myocutaneous flap for closure of the sacral ulcer, the HgbA1c needs to be less than 8. Encouraged nutritional supplementation with protein to help the healing process. Will check Prealbumin at the time of the operative debridement. Will maximize her nutrition at the time of the myocutaneous flap as the Prealbumin should ideally be greater than 20. If the sacral ulcer looks good at the time of the myocutaneous flap, a Prealbumin of 16-20 would be acceptable. Also at the time of the operative debridement, a wound culture would be obtained. A positive culture will necessitate antibiotic therapy. If Pseudomonas or MRSA is present, then 6 weeks of antibiotics would be necessary followed by another operative debridement. Pseudomonas can destroy muscle flaps if not completely treated. Stressed importance of not sitting or laying on her pressure ulcer for long periods of time. Encouraged patient to stop smoking as it may have deleterious effects on wound healing. For the elective myocutaneous flap for closure of the sacral ulcer, sh e would need to stop smoking to optimize healing of the flap. Follow up one week.
[2023-10-04 14:42] VITALS: BP 89/63; PULSE 88; RESP 16; TEMP 36.3
--- NOTE | 2023-10-04 17:04 | PCM.WC.PN ---
History of Present Illness Date of Service: 10/06/23 Chief Complaint: Sacral ulcer History of Wound: Patient is a 63 year old female who previously was a patient here and known to me, but had back surgery in early September 2022 at [facility] and then went to rehab at [facility] after that. She had a aurelia replaced in her back. Before her surgery, she was not able to lie flat due to increased pain, so she spent most of her time in her wheelchair. Now since her surgery, she is in too much back pain to sit in her wheelchair. She presents today with an ulcer to her sacrum. She was in the ED on 12/10/22 for increased wound drainage and was treated with Keflex, which she has completed. She does have home health to assist with dressing changes. She has lost 100 lbs since last being here in early September. Wound care - Silver dressing changes daily. Wound culture 12/26/22 positive for Proteus mirabilis, Enterococcus faecalis, Streptococcus agalactiae, Anaerobic cocci and Bacteroides fragilis. She was treated with Augmentin. Wound culture from 01/23/23 was positive for MRSA and Morganella morganii. The MRSA was treated with Doxycycline. Wound culture 04/03/23 positive for Proteus mirabilis, Enterococcus faecalis, and Anaerobic cocci. She was treated with Augmentin. Wound culture from 07/03/23 positive for Proteus mirabilis and Enterococcus faecalis which was treated with Augmentin. Wound culture was done on 08/23/23. It was negative. She had CT Pelvis on 09/20/23. It showed evidence of tissue defect in the medial aspect of the right buttock abutting the distal sacrum. This most likely represents an ulcerated pressure ulcer. Normal urinary bladder. Normal visualized small intestine. Moderate amount of fecal material is seen in the colon. There is no pelvic fluid. There is no pelvic mass lesion or lymphadenopathy. There is diffuse atherosclerotic calcification of the pelvic arteries. Phleboliths are seen in the pelvis. Normal abdominal wall. Extensive metallic streak artifacts due to fusion with intrapedicular screw and aurelia fixation the lower lumbar spine. Today she denies fever. Her appetite is ok. Progress of Wound: Slightly improved. Objective Data Objective Data Vital Signs: Vital Signs Temp Pulse Resp BP O2 Del Method 97.3 F L 88 16 89/63 L Room Air 10/04/23 14:42 10/04/23 14:42 10/04/23 14:42 10/04/23 14:42 10/04/23 14:42 Oxygen Delivery Method Room Air Lab / Micro Data Attestation: I reviewed the patient's lab results. Lab results narrative: Patient has diabetes mellitus. Her last HgbA1c from 09/18/20 was 5.9. For elective surgeries, the HgbA1c needs to be less than 8. Charges/Coding Procedures Integumentary [id number]: [id number] Shila musc/fascia 20 sq cm/< (ICD-10 - L89.154, Z98.1, G82.20, E11.9, R63.4, F17.200, Z86.14) Debridement Note Debridement Note Wound debrided: #14 Sacral area. Laterality: Not Applicable Wound Grade/Stage: IV. Type of Debridement: Excisional debridement Anesthesia Used: 5% Lidocaine Gel and Cetacaine Depth: Down to and including healthy tissue, in the subcutaneous layer, to muscle and to bone (bone is palpable but not exposed.) Percentage of wound debrided: 100 Instrument Used: 5mm curette Tissue Removed: subcutaneous tissue, senescent cells, devitalized tissue and muscle. Severity: Fat Layer Exposed (muscle is exposed. bone is palpable but not exposed.) Amount of bleeding with debridement: Mild Bleeding Controlled with: Pressure and Compression and gauze Patient tolerated procedure: Patient tolerated procedure well Post-Debridement Measurements and Additional Note: Post-Debridement Measurements/Treatment - Nurse 1 - General Ulcer Assessment Start: 09/27/23 13:30 Freq: Status: Active Protocol: TAISHA Activity Type Activity Date Activity User E-sign Co-sign Detail Recorded Client Recorded Date Recorded By Document 09/27/23 13:30 RB Desktop 09/27/23 13:33 RB Document 10/04/23 14:42 BMF Desktop 10/04/23 14:47 BMF 09/27/23 10/04/23 13:30 14:42 - Today's Visit Information Type of service Follow-up Visit Follow-up Visit (Physician/[employer] (Physician/[employer] ) ) Arrival Mode Wheelchair Wheelchair Transfer Assistance Manual Other Transfer Assist (Other) 1 Accompanied by spike in [facility] Patient Identification Verified (Name & Yes Yes ) Patient Requires Transmission-Based No No Precautions Vital Signs Temperature (97.8 F-99.1 F) 97.1 F L 97.3 F L Temperature Source Temporal Temporal Pulse Rate (60-100) 106 H 88 Pulse Location Monitor Monitor Respiratory Rate (12-18) 18 16 Respiratory rate source Observation Observation Oxygen Delivery Method Room Air Blood Pressure (90/60-120/80) 100/69 89/63 L Blood Pressure Mean (mm Hg) 79 71 Source Monitor Monitor Position Semi-Fowlers Sitting Blood Pressure Location Left Arm Right Arm Comment denies sx. bp runs low History Since Last Visit- (Skip if this is Patient's initial visit) Have you changed medications since your No No last visit? Any new allergies or adverse reactions No No Had a fall/change in ADL's that may No No increase risk of falls Signs or symptoms of abuse and/or No No neglect since last visit Have you been in the hospital since your No No last visit? Has dressing in place as prescribed Yes Yes Has compression in place as prescribed No N/A Has offloadiing in place as prescribed Yes N/A Experienced any changes in pain level or No No management Left Footwear Slipper Right Footwear Slipper Pain Scale: 0-10 Numeric Is Patient Pain Free? No Yes buttock area -Description Aching -Intensity 7 -Duration (hours) Chronic -Pain Behavior Restlessness -Pain Aggravating Factors Sitting -Alleviating Factors/Interventions Medication -Effectiveness of Alleviating Factor/ Minimally Intervention effective WC - Nurse 1 - General Ulcer Measurement Start: 09/27/23 13:30 Freq: Status: Active Protocol: Activity Type Activity Date Activity User E-sign Co-sign Detail Recorded Client Recorded Date Recorded By Document 09/27/23 13:30 Desktop 09/27/23 13:33 RB Document 10/04/23 14:42 [facility] Desktop 10/04/23 14:47 F 09/27/23 10/04/23 13:30 14:42 Wound Center Nurse 1 #14- L SACRAL -Combined with other wound No No -Current Size (cm) - Length 3.9 3 -Current Size (cm) - Width 2 2.4 -Current Size (cm) - Depth 1.2 0.8 -Total Square Cm 7.8 7.2 -Tunneling No No -Undermining/Tunneling Yes Yes -Undermining/Tunneling Starts (O'clock 9 3 ) -Undermining/Tunneling Ends (O'clock) 2 9 -Maximum Distance (cm) 1.5 2.4 -Circular Undermining No No -Exudate Amt Large Medium -Exudate Type Serosanguineous Serosanguineous -Wound Margin Thickened & Distinct, Rolled Under Outline Attached -Granulation Amt Large (67-100%) Large (67-100%) -Granulation Quality [place] Red -Slough/Fibrin Yes Yes -Necrosis Amt Medium (34-66%) Small (1-33%) -Necrotic Tissue Type Adherent Slough Adherent Slough -Structure Exposed N/A -Texture (Vivi-wound Skin Appearance) Assessed, Assessed, Scarring Scarring -Moisture (Vivi-wound Skin Appearance) Assessed Assessed -Color (Vivi-wound Skin Appearance) Assessed Assessed -Temperature (Vivi-wound Skin No Abnormality No Abnormality Appearance) (Pt Warm) (Pt Warm) -Tenderness on Palpation (Vivi-wound No No Skin Appearance) -Ulcer Cleansing Wound Cleanser Rinsed/ Irrigated with Saline -Foul Odor after Cleansing No No -Anesthetic Used 5% Lidocaine 5% Lidocaine Gel Gel WC - Nurse 2 - General Ulcer CM Notes Start: 09/27/23 13:30 Freq: Status: Active Protocol: Activity Type Activity Date Activity User E-sign Co-sign Detail Recorded Client Recorded Date Recorded By Document 09/27/23 13:51 GM Desktop 09/27/23 13:58 GM Edit Result 09/27/23 13:51 GM (1) Desktop 09/27/23 14:00 GM Edit Result 09/27/23 13:51 GM (2) Desktop 10/04/23 12:02 GM Document 10/04/23 15:13 MW Desktop 10/04/23 15:19 MW (1) #14- L SACRAL - Tissue Removed Subcutaneous => Muscle,Fascia (2) #14- L SACRAL - Clinical Debridement Subcutaneous => Muscle / Fascia - Debridement - Subq, 1st 20sq cm Yes => - Debridement - Muscle / Fascia, 1st => Yes 20sq cm 09/27/23 10/04/23 13:51 15:13 Wound Center Nurse 2 #14- L SACRAL -Time 13:51 15:14 -Correct Patient Yes Yes -Correct Side, Site, Position Yes Yes -Correct Procedure Yes Yes -Procedure Performed Yes Yes -Type of Procedure Debridement Debridement -Clinical Debridement Muscle / Fascia Muscle / Fascia -Tissue Removed Muscle,Fascia Muscle,Fascia -Post Debridement (cm) - Length 3 2.8 -Post Debridement (cm) - Width 2 2.6 -Post Debridement (cm) - Depth 1.3 0.6 -Total Square (Post) (cm) 6 7.28 -Area of Debridement (cm) - Length 3 2.8 -Area of Debridement (cm) - Width 2 2.6 -Total Square (Area) (cm) 6 7.28 -Tunneling No No -Undermining/Tunneling No Yes -Undermining/Tunneling Starts (O'clock 10 ) -Undermining/Tunneling Ends (O'clock) 2 -Maximum Distance (cm) 2.0 -Undermining/Tunneling Starts #2 (O' 10 clock) -Undermining/Tunneling Ends #2 (O' 2 clock) -Maximum Distance #2 (cm) 1.5 -Circular Undermining No No -Wound/Ulcer Outcome Not Healed Not Healed -Ulcer Cleansing Rinsed/ Rinsed/ Irrigated with Irrigated with Saline Saline -Foul Odor after Cleansing No No -Bioengineered Tissue No No -Bleeding Controlled with Pressure Pressure -Treatment Response Procedure Procedure Tolerated Well Tolerated Well -Offloading No -Assistive Device(s) Wheelchair -Pressure Reduction Wheelchair cushion -Debridement - Muscle / Fascia, 1st Yes Yes 20sq cm Pain Scale: 0-10 Numeric Is Patient Pain Free? Yes Yes WC - Nurse 3 - General Ulcer D/C NN Start: 09/27/23 13:30 Freq: Status: Active Protocol: Activity Type Activity Date Activity User E-sign Co-sign Detail Recorded Client Recorded Date Recorded By Document 09/27/23 14:09 GM Desktop 09/27/23 14:10 GM Document 10/04/23 15:19 MW Desktop 10/04/23 15:23 MW 09/27/23 10/04/23 14:09 15:19 Wound Care Center Nurse 3 #14- L SACRAL -Ulcer Cleansing Not Cleansed Rinsed/ Irrigated with Saline -Foul Odor after Cleansing No No -Negative Pressure Wound Therapy N/A -Primary Dressing Applied Aquacel AG 4x4, Aquacel Extra, Mepilex Border Mepilex Border -Aquacel Extra 1 -Aquacel AG 4x4 1 -Mepilex Border 1 1 Treatment Response Procedure Tolerated Well Pain Scale: 0-10 Numeric Is Patient Pain Free? Yes Yes Teaching: Wound Center Dressing Your Wound -Person Taught Patient -Teaching Method Discussion -Response to teaching Verbalize understanding WC - Visit Discharge Discharge Condition Stable Stable Ambulatory Status Wheelchair Wheelchair Transportation Private Auto Private Auto Accompanied by bobbi Medication Reconcilliation completed & Yes No provided to patient/care provider Clinical Summary of Care Provided Yes Yes Assessment/Plan Assessment/Plan (1) Pressure injury of sacral region, stage 4: CODE(S): L89.154 - Pressure ulcer of sacral region, stage 4 (2) S/P laminectomy with spinal fusion: CODE(S): Z98.1 - Arthrodesis status (3) Paraplegia: CODE(S): G82.20 - Paraplegia, unspecified (4) Diabetes mellitus: CODE(S): E11.9 - Type 2 diabetes mellitus without complications (5) Weight loss, non-intentional: CODE(S): R63.4 - Abnormal weight loss (6) Tobacco use disorder: CODE(S): F17.200 - Nicotine dependence, unspecified, uncomplicated (7) Personal history of Methicillin resistant Staphylococcus aureus infection: CODE(S): Z86.14 - Personal history of Methicillin resistant Staphylococcus aureus infection PLAN: Plan Wound care - Continue Silver dressing changes. Wound culture 12/26/22 positive for Proteus miriabilis, Enterococcus faecalis, Streptococcus agalactiae, Anaerobic cocci and Bacteroides fragilis. She was treated with Augmentin. Wound culture from 01/23/23 was positive for MRSA and Morganella morganii. MRSA was treated with Doxycycline. Wound culture 04/03/23 positive for Proteus mirabilis, Enterococcus faecalis, and Anaerobic cocci. She is being treated with Augmentin. Wound culture from 07/03/23 positive for Proteus mirabilis and Enterococcus faecalis which was treated with Augmentin. A wound care was obtained on 08/23/23. It was negative. CT Pelvis was done on 09/20/23. It showed evidence of tissue defect in the medial aspect of the right buttock abutting the distal sacrum. This most likely represents an ulcerated pressure ulcer. Normal urinary bladder. Normal visualized small intestine. Moderate amount of fecal material is seen in the colon. There is no pelvic fluid. There is no pelvic mass lesion or lymphadenopathy. There is diffuse atherosclerotic calcification of the pelvic arteries. Phleboliths are seen in the pelvis. Normal abdominal wall. Extensive metallic streak artifacts due to fusion with intrapedicular screw and aurelia fixation the lower lumbar spine. Patient has diabetes mellitus. Her last HgbA1c from 09/18/20 was 5.9. For elective surgeries such as a myocutaneous flap for closure of the sacral ulcer, the HgbA1c needs to be less than 8. Encouraged nutritional supplementation with protein to help the healing process. Will check Prealbumin at the time of the operative debridement. Will maximize her nutrition at the time of the myocutaneous flap as the Prealbumin should ideally be greater than 20. If the sacral ulcer looks good at the time of the myocutaneous flap, a Prealbumin of 16-20 would be acceptable. Also at the time of the operative debridement, a wound culture would be obtained. A positive culture will necessitate antibiotic therapy. If Pseudomonas or MRSA is present, then 6 weeks of antibiotics would be necessary followed by another operative debridement. Pseudomonas can destroy muscle flaps if not completely treated. Stressed importance of not sitting or laying on her pressure ulcer for long periods of time. Encouraged patient to stop smoking as it may have deleterious effects on wound healing. For the elective myocutaneous flap for closure of the sacral ulcer, she would need to stop smoking to optimize healing of the flap. Healing is slow. Undermining still present superiorly. An operative debridement will be beneficial. Will check soft tissue and bone for Pathology and Microbiology. Surgery will be done under general anesthesia with a surgical observation overnight stay in the hospital. A VAC will be placed during the hospital stay. Patient was informed of the risks and complications of the procedure including alternatives to surgery. These were discussed with the patient personally. Patient voices understanding and wishes to proceed. Potential risks and complications included but not inclusive of bleeding, infection, seroma, hematoma, bruising, swelling, wound breakdown, poor scarring, poor aesthetic outcome, intra operative cardiac or neurologic events, DVT, PE, and reaction to anesthesia. Will try and schedule the surgery next month. Follow up one week.
[2023-10-09 13:28] VITALS: BP 121/68; PULSE 78; RESP 20; TEMP 35.9
--- NOTE | 2023-10-09 14:28 | PN.PCM_ITS ---
History of Present Illness Date of Service: 10/09/23 Chief Complaint: Sacral ulcer History of Wound: Patient is a 63 year old female who previously was a patient here and known to me, but had back surgery in early September 2022 at [facility] and then went to rehab at [place] after that. She had a aurelia replaced in her back. Before her surgery, she was not able to lie flat due to increased pain, so she spent most of her time in her wheelchair. Now since her surgery, she is in too much back pain to sit in her wheelchair. She presents today with an ulcer to her sacrum. She was in the ED on 12/10/22 for increased wound drainage and was treated with Keflex, which she has completed. She does have home health to assist with dressing changes. She has lost 100 lbs since last being here in early September. Wound care - Silver dressing changes daily. Wound culture 12/26/22 positive for Proteus mirabilis, Enterococcus faecalis, Streptococcus agalactiae, Anaerobic cocci and Bacteroides fragilis. She was treated with Augmentin. Wound culture from 01/23/23 was positive for MRSA and Morganella morganii. The MRSA was treated with Doxycycline. Wound culture 04/03/23 positive for Proteus mirabilis, Enterococcus faecalis, and Anaerobic cocci. She was treated with Augmentin. Wound culture from 07/03/23 positive for Proteus mirabilis and Enterococcus faecalis which was treated with Augmentin. Wound culture was done on 08/23/23. It was negative. She had CT Pelvis on 09/20/23. It showed evidence of tissue defect in the medial aspect of the right buttock abutting the distal sacrum. This most likely represents an ulcerated pressure ulcer. Normal urinary bladder. Normal visualized small intestine. Moderate amount of fecal material is seen in the colon. There is no pelvic fluid. There is no pelvic mass lesion or lymphadenopathy. There is diffuse atherosclerotic calcification of the pelvic arteries. Phleboliths are seen in the pelvis. Normal abdominal wall. Extensive metallic streak artifacts due to fusion with intrapedicular screw and aurelia fixation the lower lumbar spine. Today she denies fever. Her appetite is ok. Progress of Wound: Slightly improved. Objective Data Objective Data Vital Signs: Vital Signs Temp Pulse Resp BP O2 Del Method 96.7 F L 78 20 H 121/68 H Room Air 10/09/23 13:28 10/09/23 13:28 10/09/23 13:28 10/09/23 13:28 10/04/23 14:42 Oxygen Delivery Method Room Air Lab / Micro Data Attestation: I reviewed the patient's lab results. Lab results narrative: Patient has diabetes mellitus. Her last HgbA1c from 09/18/20 was 5.9. For elective surgeries, the HgbA1c needs to be less than 8. Charges/Coding Procedures Integumentary [id number]: [id number] Shila musc/fascia 20 sq cm/< (ICD-10 - L89.154, Z98.1, G82.20, E11.9, R63.4, F17.200, Z86.14) Debridement Note Debridement Note Wound debrided: #14 Sacral area. Laterality: Not Applicable Wound Grade/Stage: IV. Type of Debridement: Excisional debridement Anesthesia Used: 5% Lidocaine Gel and Cetacaine Depth: Down to and including healthy tissue, in the subcutaneous layer, to muscle and to bone (bone is palpable but not exposed.) Percentage of wound debrided: 100 Instrument Used: 5mm curette Tissue Removed: subcutaneous tissue, senescent cells, devitalized tissue and muscle. Severity: Fat Layer Exposed (muscle is exposed. bone is palpable but not exposed.) Amount of bleeding with debridement: Mild Bleeding Controlled with: Pressure and Compression and gauze Patient tolerated procedure: Patient tolerated procedure well Post-Debridement Measurements and Additional Note: Post-Debridement Measurements/Treatment - Nurse 1 - General Ulcer Assessment Start: 09/27/23 13:30 Freq: Status: Active Protocol: TAISHA Activity Type Activity Date Activity User E-sign Co-sign Detail Recorded Client Recorded Date Recorded By Document 09/27/23 13:30 RB Desktop 09/27/23 13:33 RB Document 10/04/23 14:42 BMF Desktop 10/04/23 14:47 BMF Document 10/09/23 13:28 DL Desktop 10/09/23 13:41 DL 09/27/23 10/04/23 10/09/23 13:30 14:42 13:28 - Today's Visit Information Type of service Follow-up Visit Follow-up Visit Follow-up Visit (Physician/RN ADMISSIONS (Physician/RN ADMISSIONS (Physician/RN ADMISSIONS ) ) ) Arrival Mode Wheelchair Wheelchair Wheelchair Transfer Assistance Manual Other Manual Transfer Assist (Other) 1 x1 Accompanied by spike in [facility] Patient Identification Verified (Name & Yes Yes Yes ) Patient Requires Transmission-Based No No No Precautions Vital Signs Temperature (97.8 F-99.1 F) 97.1 F L 97.3 F L 96.7 F L Temperature Source Temporal Temporal Temporal Pulse Rate (60-100) 106 H 88 78 Pulse Location Monitor Monitor Monitor Respiratory Rate (12-18) 18 16 20 H Respiratory rate source Observation Observation Observation Oxygen Delivery Method Room Air Blood Pressure (90/60-120/80) 100/69 89/63 L 121/68 H Blood Pressure Mean (mm Hg) 79 71 85 Source Monitor Monitor Monitor Position Semi-Fowlers Sitting Blood Pressure Location Left Arm Right Arm Comment denies sx. bp runs low History Since Last Visit- (Skip if this is Patient's initial visit) Have you changed medications since your No No No last visit? Any new allergies or adverse reactions No No No Had a fall/change in ADL's that may No No No increase risk of falls Signs or symptoms of abuse and/or No No No neglect since last visit Have you been in the hospital since your No No last visit? Has dressing in place as prescribed Yes Yes Yes Has compression in place as prescribed No N/A N/A Has offloadiing in place as prescribed Yes N/A Yes Experienced any changes in pain level or No No No management Left Footwear Slipper Right Footwear Slipper Pain Scale: 0-10 Numeric Is Patient Pain Free? No Yes Yes buttock area -Description Aching -Intensity 7 -Duration (hours) Chronic -Pain Behavior Restlessness -Pain Aggravating Factors Sitting -Alleviating Factors/Interventions Medication -Effectiveness of Alleviating Factor/ Minimally Intervention effective WC - Nurse 1 - General Ulcer Measurement Start: 09/27/23 13:30 Freq: Status: Active Protocol: Activity Type Activity Date Activity User E-sign Co-sign Detail Recorded Client Recorded Date Recorded By Document 09/27/23 13:30 RB Desktop 09/27/23 13:33 RB Document 10/04/23 14:42 BMF Desktop 10/04/23 14:47 BMF Document 10/09/23 13:28 DL Desktop 10/09/23 13:41 DL 09/27/23 10/04/23 10/09/23 13:30 14:42 13:28 Wound Center Nurse 1 #14- L SACRAL -Combined with other wound No No -Current Size (cm) - Length 3.9 3 3.1 -Current Size (cm) - Width 2 2.4 2.5 -Current Size (cm) - Depth 1.2 0.8 0.5 -Total Square Cm 7.8 7.2 7.75 -Tunneling No No -Undermining/Tunneling Yes Yes -Undermining/Tunneling Starts (O'clock 9 3 7 ) -Undermining/Tunneling Ends (O'clock) 2 9 12 -Maximum Distance (cm) 1.5 2.4 3.5 -Circular Undermining No No -Classification - Thickness Full Thickness without Exposed Support Structure -Exudate Amt Large Medium Medium -Exudate Type Serosanguineous Serosanguineous Serosanguineous -Wound Margin Thickened & Distinct, Thickened & Rolled Under Outline Rolled Under Attached -Granulation Amt Large (67-100%) Large (67-100%) Medium (34-66%) -Granulation Quality Brigantine Red Red -Slough/Fibrin Yes Yes -Necrosis Amt Medium (34-66%) Small (1-33%) Medium (34-66%) -Necrotic Tissue Type Adherent Slough Adherent Slough Adherent Slough -Structure Exposed N/A N/A -Texture (Vivi-wound Skin Appearance) Assessed, Assessed, Scarring Scarring Scarring -Moisture (Vivi-wound Skin Appearance) Assessed Assessed No Abnormality -Color (Vivi-wound Skin Appearance) Assessed Assessed Hemosiderin Staining, Mottled -Temperature (Vivi-wound Skin No Abnormality No Abnormality No Abnormality Appearance) (Pt Warm) (Pt Warm) (Pt Warm) -Tenderness on Palpation (Vivi-wound No No No Skin Appearance) -Ulcer Cleansing Wound Cleanser Rinsed/ Soap and Water Irrigated with Saline -Foul Odor after Cleansing No No No -Anesthetic Used 5% Lidocaine 5% Lidocaine 5% Lidocaine Gel Gel Gel WC - Nurse 2 - General Ulcer CM Notes Start: 09/27/23 13:30 Freq: Status: Active Protocol: Activity Type Activity Date Activity User E-sign Co-sign Detail Recorded Client Recorded Date Recorded By Document 09/27/23 13:51 GM Desktop 09/27/23 13:58 GM Edit Result 09/27/23 13:51 GM (1) Desktop 09/27/23 14:00 GM Edit Result 09/27/23 13:51 GM (2) Desktop 10/04/23 12:02 GM Document 10/04/23 15:13 MW Desktop 10/04/23 15:19 MW Document 10/09/23 13:54 JF Laptop 10/09/23 14:01 JF (1) #14- L SACRAL - Tissue Removed Subcutaneous => Muscle,Fascia (2) #14- L SACRAL - Clinical Debridement Subcutaneous => Muscle / Fascia - Debridement - Subq, 1st 20sq cm Yes => - Debridement - Muscle / Fascia, 1st => Yes 20sq cm 09/27/23 10/04/23 10/09/23 13:51 15:13 13:54 Wound Center Nurse 2 #14- L SACRAL -Time 13:51 15:14 13:55 -Correct Patient Yes Yes Yes -Correct Side, Site, Position Yes Yes Yes -Correct Procedure Yes Yes Yes -Procedure Performed Yes Yes Yes -Type of Procedure Debridement Debridement Debridement -Clinical Debridement Muscle / Fascia Muscle / Fascia Muscle / Fascia -Tissue Removed Muscle,Fascia Muscle,Fascia Muscle,Fascia -Post Debridement (cm) - Length 3 2.8 2.9 -Post Debridement (cm) - Width 2 2.6 2.2 -Post Debridement (cm) - Depth 1.3 0.6 0.5 -Total Square (Post) (cm) 6 7.28 6.38 -Area of Debridement (cm) - Length 3 2.8 2.9 -Area of Debridement (cm) - Width 2 2.6 2.2 -Total Square (Area) (cm) 6 7.28 6.38 -Tunneling No No No -Undermining/Tunneling No Yes Yes -Undermining/Tunneling Starts (O'clock 10 9 ) -Undermining/Tunneling Ends (O'clock) 2 11 -Maximum Distance (cm) 2.0 2.8 -Undermining/Tunneling Starts #2 (O' 10 clock) -Undermining/Tunneling Ends #2 (O' 2 clock) -Maximum Distance #2 (cm) 1.5 -Circular Undermining No No No -Wound/Ulcer Outcome Not Healed Not Healed Not Healed -Ulcer Cleansing Rinsed/ Rinsed/ Wound Cleanser Irrigated with Irrigated with Saline Saline -Foul Odor after Cleansing No No No -Bioengineered Tissue No No No -Bleeding Controlled with Pressure Pressure Pressure -Treatment Response Procedure Procedure Procedure Tolerated Well Tolerated Well Tolerated Well -Offloading No No -Assistive Device(s) Wheelchair -Pressure Reduction Wheelchair Wheelchair cushion cushion -Debridement - Muscle / Fascia, 1st Yes Yes Yes 20sq cm Pain Scale: 0-10 Numeric Is Patient Pain Free? Yes Yes Yes - Nurse 3 - General Ulcer D/C NN Start: 09/27/23 13:30 Freq: Status: Active Protocol: Activity Type Activity Date Activity User E-sign Co-sign Detail Recorded Client Recorded Date Recorded By Document 09/27/23 14:09 GM Desktop 09/27/23 14:10 GM Document 10/04/23 15:19 MW Desktop 10/04/23 15:23 MW Document 10/09/23 14:01 Laptop 10/09/23 14:02 09/27/23 10/04/23 10/09/23 14:09 15:19 14:01 Wound Care Center Nurse 3 #14- L SACRAL -Ulcer Cleansing Not Cleansed Rinsed/ Rinsed/ Irrigated with Irrigated with Saline Saline -Foul Odor after Cleansing No No -Negative Pressure Wound Therapy N/A -Primary Dressing Applied Aquacel AG 4x4, Aquacel Extra, Mepilex Border, Mepilex Border Mepilex Border Silvercel -Primary Dressing Covered/Secured with Dry Gauze -Aquacel Extra 1 -Aquacel AG 4x4 1 -Mepilex Border 1 1 1 -Silvercel 1 Treatment Response Procedure Tolerated Well Pain Scale: 0-10 Numeric Is Patient Pain Free? Yes Yes Yes Teaching: Wound Center Dressing Your Wound -Person Taught Patient -Teaching Method Discussion -Response to teaching Verbalize understanding WC - Visit Discharge Discharge Condition Stable Stable Stable Ambulatory Status Wheelchair Wheelchair Wheelchair Transportation Private Auto Private Auto Private Auto Accompanied by bobbi Medication Reconcilliation completed & Yes No Yes provided to patient/care provider Clinical Summary of Care Provided Yes Yes Yes Assessment/Plan Assessment/Plan (1) Pressure injury of sacral region, stage 4: CODE(S): L89.154 - Pressure ulcer of sacral region, stage 4 (2) S/P laminectomy with spinal fusion: CODE(S): Z98.1 - Arthrodesis status (3) Paraplegia: CODE(S): G82.20 - Paraplegia, unspecified (4) Diabetes mellitus: CODE(S): E11.9 - Type 2 diabetes mellitus without complications (5) Weight loss, non-intentional: CODE(S): R63.4 - Abnormal weight loss (6) Tobacco use disorder: CODE(S): F17.200 - Nicotine dependence, unspecified, uncomplicated (7) Personal history of Methicillin resistant Staphylococcus aureus infection: CODE(S): Z86.14 - Personal history of Methicillin resistant Staphylococcus aureus infection PLAN: Plan Wound care - Continue Silver dressing changes. Wound culture 12/26/22 positive for Proteus miriabilis, Enterococcus faecalis, Streptococcus agalactiae, Anaerobic cocci and Bacteroides fragilis. She was treated with Augmentin. Wound culture from 01/23/23 was positive for MRSA and Morganella morganii. MRSA was treated with Doxycycline. Wound culture 04/03/23 positive for Proteus mirabilis, Enterococcus faecalis, and Anaerobic cocci. She is being treated with Augmentin. Wound culture from 07/03/23 positive for Proteus mirabilis and Enterococcus faecalis which was treated with Augmentin. A wound care was obtained on 08/23/23. It was negative. CT Pelvis was done on 09/20/23. It showed evidence of tissue defect in the medial aspect of the right buttock abutting the distal sacrum. This most likely represents an ulcerated pressure ulcer. Normal urinary bladder. Normal visualized small intestine. Moderate amount of fecal material is seen in the colon. There is no pelvic fluid. There is no pelvic mass lesion or lymphadenopathy. There is diffuse atherosclerotic calcification of the pelvic arteries. Phleboliths are seen in the pelvis. Normal abdominal wall. Extensive metallic streak artifacts due to fusion with intrapedicular screw and aurelia fixation the lower lumbar spine. Patient has diabetes mellitus. Her last HgbA1c from 09/18/20 was 5.9. For elective surgeries such as a myocutaneous flap for closure of the sacral ulcer, the HgbA1c needs to be less than 8. Encouraged nutritional supplementation with protein to help the healing process. Will check Prealbumin at the time of the operative debridement. Will maximize her nutrition at the time of the myocutaneous flap as the Prealbumin should ideally be greater than 20. If the sacral ulcer looks good at the time of the myocutaneous flap, a Prealbumin of 16-20 would be acceptable. Also at the time of the operative debridement, a wound culture would be obtained. A positive culture will necessitate antibiotic therapy. If Pseudomonas or MRSA is present, then 6 weeks of antibiotics would be necessary followed by another operative debridement. Pseudomonas can destroy muscle flaps if not completely treated. Stressed importance of not sitting or laying on her pressure ulcer for long periods of time. Encouraged patient to stop smoking as it may have deleterious effects on wound healing. For the elective myocutaneous flap for closure of the sacral ulcer, she would need to stop smoking to optimize healing of the flap. Healing is slow. Undermining still present superiorly. An operative debridement will be beneficial. Will check soft tissue and bone for Pathology and Microbiology. Surgery will be done under general anesthesia with a surgical observation overnight stay in the hospital. A VAC will be placed during the hospital stay. Patient was informed of the risks and complications of the procedure including alternatives to surgery. These were discussed with the patient personally. Patient voices understanding and wishes to proceed. Potential risks and complications included but not inclusive of bleeding, infection, seroma, hematoma, bruising, swelling, wound breakdown, poor scarring, poor aesthetic outcome, intra operative cardiac or neurologic events, DVT, PE, and reaction to anesthesia. Will schedule the surgery in the next month or two based on availability. Follow up one week.
[2023-10-17 14:33] VITALS: BP 118/64; PULSE 68; RESP 18; TEMP 35.7
--- NOTE | 2023-10-17 15:59 | PCM.WC.PN ---
History of Present Illness Date of Service: 10/17/23 Chief Complaint: Sacral ulcer History of Wound: Patient is a 63 year old female who previously was a patient here and known to me, but had back surgery in early September 2022 at [facility] and then went to rehab at [facility] after that. She had a aurelia replaced in her back. Before her surgery, she was not able to lie flat due to increased pain, so she spent most of her time in her wheelchair. Now since her surgery, she is in too much back pain to sit in her wheelchair. She presents today with an ulcer to her sacrum. She was in the ED on 12/10/22 for increased wound drainage and was treated with Keflex, which she has completed. She does have home health to assist with dressing changes. She has lost 100 lbs since last being here in early September. Wound care - Silver dressing changes daily. Wound culture 12/26/22 positive for Proteus mirabilis, Enterococcus faecalis, Streptococcus agalactiae, Anaerobic cocci and Bacteroides fragilis. She was treated with Augmentin. Wound culture from 01/23/23 was positive for MRSA and Morganella morganii. The MRSA was treated with Doxycycline. Wound culture 04/03/23 positive for Proteus mirabilis, Enterococcus faecalis, and Anaerobic cocci. She was treated with Augmentin. Wound culture from 07/03/23 positive for Proteus mirabilis and Enterococcus faecalis which was treated with Augmentin. Wound culture was done on 08/23/23. It was negative. She had CT Pelvis on 09/20/23. It showed evidence of tissue defect in the medial aspect of the right buttock abutting the distal sacrum. This most likely represents an ulcerated pressure ulcer. Normal urinary bladder. Normal visualized small intestine. Moderate amount of fecal material is seen in the colon. There is no pelvic fluid. There is no pelvic mass lesion or lymphadenopathy. There is diffuse atherosclerotic calcification of the pelvic arteries. Phleboliths are seen in the pelvis. Normal abdominal wall. Extensive metallic streak artifacts due to fusion with intrapedicular screw and aurelia fixation the lower lumbar spine. Today she denies fever. Her appetite is ok. Progress of Wound: Slightly improved. Objective Data Objective Data Vital Signs: Vital Signs Temp Pulse Resp BP O2 Del Method 96.3 F L 68 18 118/64 Room Air 10/17/23 14:33 10/17/23 14:33 10/17/23 14:33 10/17/23 14:33 10/17/23 14:33 Oxygen Delivery Method Room Air Lab / Micro Data Attestation: I reviewed the patient's lab results. Lab results narrative: Patient has diabetes mellitus. Her last HgbA1c from 09/18/20 was 5.9. For elective surgeries, the HgbA1c needs to be less than 8. Charges/Coding Procedures Integumentary [id number]: [id number] Shila musc/fascia 20 sq cm/< (ICD-10 - L89.154, Z98.1, G82.20, E11.9, R63.4, F17.200, Z86.14) Debridement Note Debridement Note Wound debrided: #14 Sacral area. Laterality: Not Applicable Wound Grade/Stage: IV. Type of Debridement: Excisional debridement Anesthesia Used: 5% Lidocaine Gel and Cetacaine Depth: Down to and including healthy tissue, in the subcutaneous layer, to muscle and to bone (bone is palpable but not exposed.) Percentage of wound debrided: 100 Instrument Used: 5mm curette Tissue Removed: subcutaneous tissue, senescent cells, devitalized tissue and muscle. Severity: Fat Layer Exposed (muscle is exposed. bone is palpable but not exposed.) Amount of bleeding with debridement: Mild Bleeding Controlled with: Pressure and Compression and gauze Patient tolerated procedure: Patient tolerated procedure well Post-Debridement Measurements and Additional Note: Post-Debridement Measurements/Treatment WC - Nurse 1 - General Ulcer Assessment Start: 09/27/23 13:30 Freq: Status: Active Protocol: TAISHA Activity Type Activity Date Activity User E-sign Co-sign Detail Recorded Client Recorded Date Recorded By Document 09/27/23 13:30 RB Desktop 09/27/23 13:33 RB Document 10/04/23 14:42 BMF Desktop 10/04/23 14:47 BMF Document 10/09/23 13:28 DL Desktop 10/09/23 13:41 DL Document 10/17/23 14:33 KW Desktop 10/17/23 14:40 KW 09/27/23 10/04/23 10/09/23 13:30 14:42 13:28 WC - Today's Visit Information Type of service Follow-up Visit Follow-up Visit Follow-up Visit (Physician/THEATER TEACHER (Physician/THEATER TEACHER (Physician/THEATER TEACHER ) ) ) Arrival Mode Wheelchair Wheelchair Wheelchair Transfer Assistance Manual Other Manual Transfer Assist (Other) 1 x1 Accompanied by spike in [facility] Patient Identification Verified (Name & Yes Yes Yes ) Patient Requires Transmission-Based No No No Precautions Vital Signs Temperature (97.8 F-99.1 F) 97.1 F L 97.3 F L 96.7 F L Temperature Source Temporal Temporal Temporal Pulse Rate (60-100) 106 H 88 78 Pulse Location Monitor Monitor Monitor Respiratory Rate (12-18) 18 16 20 H Respiratory rate source Observation Observation Observation Oxygen Delivery Method Room Air Blood Pressure (90/60-120/80) 100/69 89/63 L 121/68 H Blood Pressure Mean (mm Hg) 79 71 85 Source Monitor Monitor Monitor Position Semi-Fowlers Sitting Blood Pressure Location Left Arm Right Arm Comment denies sx. bp runs low History Since Last Visit- (Skip if this is Patient's initial visit) Have you changed medications since your No No No last visit? Any new allergies or adverse reactions No No No Had a fall/change in ADL's that may No No No increase risk of falls Signs or symptoms of abuse and/or No No No neglect since last visit Have you been in the hospital since your No No last visit? Has dressing in place as prescribed Yes Yes Yes Has compression in place as prescribed No N/A N/A Has offloadiing in place as prescribed Yes N/A Yes Experienced any changes in pain level or No No No management Left Footwear Slipper Right Footwear Slipper Pain Scale: 0-10 Numeric Is Patient Pain Free? No Yes Yes buttock area -Description Aching -Intensity 7 -Duration (hours) Chronic -Pain Behavior Restlessness -Pain Aggravating Factors Sitting -Alleviating Factors/Interventions Medication -Effectiveness of Alleviating Factor/ Minimally Intervention effective 10/17/23 14:33 WC - Today's Visit Information Type of service Follow-up Visit (Physician/THEATER TEACHER ) Arrival Mode Wheelchair Transfer Assistance Transfer Assist (Other) Accompanied by Patient Identification Verified (Name & Yes ) Patient Requires Transmission-Based Precautions Vital Signs Temperature (97.8 F-99.1 F) 96.3 F L Temperature Source Temporal Pulse Rate (60-100) 68 Pulse Location Monitor Respiratory Rate (12-18) 18 Respiratory rate source Observation Oxygen Delivery Method Room Air Blood Pressure (90/60-120/80) 118/64 Blood Pressure Mean (mm Hg) 82 Source Monitor Position Sitting Blood Pressure Location Left Arm Comment History Since Last Visit- (Skip if this is Patient's initial visit) Have you changed medications since your No last visit? Any new allergies or adverse reactions No Had a fall/change in ADL's that may No increase risk of falls Signs or symptoms of abuse and/or No neglect since last visit Have you been in the hospital since your No last visit? Has dressing in place as prescribed Yes Has compression in place as prescribed N/A Has offloadiing in place as prescribed N/A Experienced any changes in pain level or No management Left Footwear Slipper Right Footwear Slipper Pain Scale: 0-10 Numeric Is Patient Pain Free? Yes buttock area -Description -Intensity -Duration (hours) -Pain Behavior -Pain Aggravating Factors -Alleviating Factors/Interventions -Effectiveness of Alleviating Factor/ Intervention WC - Nurse 1 - General Ulcer Measurement Start: 09/27/23 13:30 Freq: Status: Active Protocol: Activity Type Activity Date Activity User E-sign Co-sign Detail Recorded Client Recorded Date Recorded By Document 09/27/23 13:30 RB Desktop 09/27/23 13:33 RB Document 10/04/23 14:42 BMF Desktop 10/04/23 14:47 BMF Document 10/09/23 13:28 DL Desktop 10/09/23 13:41 DL Document 10/17/23 14:33 KW Desktop 10/17/23 14:40 KW 09/27/23 10/04/23 10/09/23 13:30 14:42 13:28 Wound Center Nurse 1 #14- L SACRAL -Combined with other wound No No -Current Size (cm) - Length 3.9 3 3.1 -Current Size (cm) - Width 2 2.4 2.5 -Current Size (cm) - Depth 1.2 0.8 0.5 -Total Square Cm 7.8 7.2 7.75 -Tunneling No No -Tunneling Position (O'clock) -Tunneling Distance (cm) -Undermining/Tunneling Yes Yes -Undermining/Tunneling Starts (O'clock 9 3 7 ) -Undermining/Tunneling Ends (O'clock) 2 9 12 -Maximum Distance (cm) 1.5 2.4 3.5 -Circular Undermining No No -Classification - Thickness Full Thickness without Exposed Support Structure -Exudate Amt Large Medium Medium -Exudate Type Serosanguineous Serosanguineous Serosanguineous -Wound Margin Thickened & Distinct, Thickened & Rolled Under Outline Rolled Under Attached -Granulation Amt Large (67-100%) Large (67-100%) Medium (34-66%) -Granulation Quality Halls Red Red -Slough/Fibrin Yes Yes -Necrosis Amt Medium (34-66%) Small (1-33%) Medium (34-66%) -Necrotic Tissue Type Adherent Slough Adherent Slough Adherent Slough -Structure Exposed N/A N/A -Texture (Vivi-wound Skin Appearance) Assessed, Assessed, Scarring Scarring Scarring -Moisture (Vivi-wound Skin Appearance) Assessed Assessed No Abnormality -Color (Vivi-wound Skin Appearance) Assessed Assessed Hemosiderin Staining, Mottled -Temperature (Vivi-wound Skin No Abnormality No Abnormality No Abnormality Appearance) (Pt Warm) (Pt Warm) (Pt Warm) -Tenderness on Palpation (Vivi-wound No No No Skin Appearance) -Ulcer Cleansing Wound Cleanser Rinsed/ Soap and Water Irrigated with Saline -Foul Odor after Cleansing No No No -Anesthetic Used 5% Lidocaine 5% Lidocaine 5% Lidocaine Gel Gel Gel 10/17/23 14:33 Wound Center Nurse 1 #14- L SACRAL -Combined with other wound -Current Size (cm) - Length 3.4 -Current Size (cm) - Width 2.7 -Current Size (cm) - Depth 0.6 -Total Square Cm 9.18 -Tunneling -Tunneling Position (O'clock) 12 -Tunneling Distance (cm) 3.4 -Undermining/Tunneling -Undermining/Tunneling Starts (O'clock ) -Undermining/Tunneling Ends (O'clock) -Maximum Distance (cm) -Circular Undermining Yes -Classification - Thickness -Exudate Amt Large -Exudate Type Yellow/Green -Wound Margin Thickened & Rolled Under -Granulation Amt Medium (34-66%) -Granulation Quality Halls,Red -Slough/Fibrin -Necrosis Amt Small (1-33%) -Necrotic Tissue Type Adherent Slough -Structure Exposed -Texture (Vivi-wound Skin Appearance) Assessed -Moisture (Vivi-wound Skin Appearance) Assessed -Color (Vivi-wound Skin Appearance) Assessed -Temperature (Vivi-wound Skin No Abnormality Appearance) (Pt Warm) -Tenderness on Palpation (Vivi-wound Skin Appearance) -Ulcer Cleansing Rinsed/ Irrigated with Saline -Foul Odor after Cleansing No -Anesthetic Used 5% Lidocaine Gel WC - Nurse 2 - General Ulcer CM Notes Start: 09/27/23 13:30 Freq: Status: Active Protocol: Activity Type Activity Date Activity User E-sign Co-sign Detail Recorded Client Recorded Date Recorded By Document 09/27/23 13:51 GM Desktop 09/27/23 13:58 GM Edit Result 09/27/23 13:51 GM (1) Desktop 09/27/23 14:00 GM Edit Result 09/27/23 13:51 GM (2) Desktop 10/04/23 12:02 GM Document 10/04/23 15:13 MW Desktop 10/04/23 15:19 MW Document 10/09/23 13:54 JF Laptop 10/09/23 14:01 JF Document 10/17/23 15:10 MW Desktop 10/17/23 15:18 MW (1) #14- L SACRAL - Tissue Removed Subcutaneous => Muscle,Fascia (2) #14- L SACRAL - Clinical Debridement Subcutaneous => Muscle / Fascia - Debridement - Subq, 1st 20sq cm Yes => - Debridement - Muscle / Fascia, 1st => Yes 20sq cm 09/27/23 10/04/23 10/09/23 13:51 15:13 13:54 Wound Center Nurse 2 #14- L SACRAL -Time 13:51 15:14 13:55 -Correct Patient Yes Yes Yes -Correct Side, Site, Position Yes Yes Yes -Correct Procedure Yes Yes Yes -Procedure Performed Yes Yes Yes -Type of Procedure Debridement Debridement Debridement -Clinical Debridement Muscle / Fascia Muscle / Fascia Muscle / Fascia -Tissue Removed Muscle,Fascia Muscle,Fascia Muscle,Fascia -Post Debridement (cm) - Length 3 2.8 2.9 -Post Debridement (cm) - Width 2 2.6 2.2 -Post Debridement (cm) - Depth 1.3 0.6 0.5 -Total Square (Post) (cm) 6 7.28 6.38 -Area of Debridement (cm) - Length 3 2.8 2.9 -Area of Debridement (cm) - Width 2 2.6 2.2 -Total Square (Area) (cm) 6 7.28 6.38 -Tunneling No No No -Undermining/Tunneling No Yes Yes -Undermining/Tunneling Starts (O'clock 10 9 ) -Undermining/Tunneling Ends (O'clock) 2 11 -Maximum Distance (cm) 2.0 2.8 -Undermining/Tunneling Starts #2 (O' 10 clock) -Undermining/Tunneling Ends #2 (O' 2 clock) -Maximum Distance #2 (cm) 1.5 -Circular Undermining No No No -Wound/Ulcer Outcome Not Healed Not Healed Not Healed -Ulcer Cleansing Rinsed/ Rinsed/ Wound Cleanser Irrigated with Irrigated with Saline Saline -Foul Odor after Cleansing No No No -Bioengineered Tissue No No No -Bleeding Controlled with Pressure Pressure Pressure -Treatment Response Procedure Procedure Procedure Tolerated Well Tolerated Well Tolerated Well -Offloading No No -Assistive Device(s) Wheelchair -Pressure Reduction Wheelchair Wheelchair cushion cushion -Debridement - Muscle / Fascia, 1st Yes Yes Yes 20sq cm Pain Scale: 0-10 Numeric Is Patient Pain Free? Yes Yes Yes 10/17/23 15:10 Wound Center Nurse 2 #14- L SACRAL -Time 15:11 -Correct Patient Yes -Correct Side, Site, Position Yes -Correct Procedure Yes -Procedure Performed Yes -Type of Procedure Debridement -Clinical Debridement Muscle / Fascia -Tissue Removed Muscle,Fascia -Post Debridement (cm) - Length 3.5 -Post Debridement (cm) - Width 3.0 -Post Debridement (cm) - Depth 0.6 -Total Square (Post) (cm) 10.50 -Area of Debridement (cm) - Length 3.5 -Area of Debridement (cm) - Width 3.0 -Total Square (Area) (cm) 10.50 -Tunneling No -Undermining/Tunneling No -Undermining/Tunneling Starts (O'clock ) -Undermining/Tunneling Ends (O'clock) -Maximum Distance (cm) -Undermining/Tunneling Starts #2 (O' clock) -Undermining/Tunneling Ends #2 (O' clock) -Maximum Distance #2 (cm) -Circular Undermining No -Wound/Ulcer Outcome Not Healed -Ulcer Cleansing Rinsed/ Irrigated with Saline -Foul Odor after Cleansing No -Bioengineered Tissue No -Bleeding Controlled with Pressure -Treatment Response Procedure Tolerated Well -Offloading No -Assistive Device(s) -Pressure Reduction -Debridement - Muscle / Fascia, 1st Yes 20sq cm Pain Scale: 0-10 Numeric Is Patient Pain Free? Yes - Nurse 3 - General Ulcer D/C NN Start: 09/27/23 13:30 Freq: Status: Active Protocol: Activity Type Activity Date Activity User E-sign Co-sign Detail Recorded Client Recorded Date Recorded By Document 09/27/23 14:09 GM Desktop 09/27/23 14:10 GM Document 10/04/23 15:19 MW Desktop 10/04/23 15:23 MW Document 10/09/23 14:01 JF Laptop 10/09/23 14:02 JF Document 10/17/23 15:32 DL Desktop 10/17/23 15:33 DL 09/27/23 10/04/23 10/09/23 14:09 15:19 14:01 Wound Care Center Nurse 3 #14- L SACRAL -Ulcer Cleansing Not Cleansed Rinsed/ Rinsed/ Irrigated with Irrigated with Saline Saline -Foul Odor after Cleansing No No -Negative Pressure Wound Therapy N/A -Primary Dressing Applied Aquacel AG 4x4, Aquacel Extra, Mepilex Border, Mepilex Border Mepilex Border Silvercel -Primary Dressing Covered/Secured with Dry Gauze -Aquacel Extra 1 -Aquacel AG 4x4 1 -Mepilex Border 1 1 1 -Silvercel 1 Treatment Response Procedure Tolerated Well Pain Scale: 0-10 Numeric Is Patient Pain Free? Yes Yes Yes Teaching: Wound Center Dressing Your Wound -Person Taught Patient -Teaching Method Discussion -Response to teaching Verbalize understanding WC - Visit Discharge Discharge Condition Stable Stable Stable Ambulatory Status Wheelchair Wheelchair Wheelchair Transportation Private Auto Private Auto Private Auto Accompanied by bobbi Medication Reconcilliation completed & Yes No Yes provided to patient/care provider Clinical Summary of Care Provided Yes Yes Yes Facility Type Orders Sent 10/17/23 15:32 Wound Care Center Nurse 3 #14- L SACRAL -Ulcer Cleansing Soap and Water -Foul Odor after Cleansing No -Negative Pressure Wound Therapy -Primary Dressing Applied Aquacel AG 4x4, Mepilex Border -Primary Dressing Covered/Secured with -Aquacel Extra -Aquacel AG 4x4 1 -Mepilex Border 1 -Silvercel Treatment Response Procedure Tolerated Well Pain Scale: 0-10 Numeric Is Patient Pain Free? Yes Teaching: Wound Center Dressing Your Wound -Person Taught -Teaching Method -Response to teaching WC - Visit Discharge Discharge Condition Stable Ambulatory Status Wheelchair Transportation Private Auto Accompanied by Medication Reconcilliation completed & provided to patient/care provider Clinical Summary of Care Provided Facility Type Home Health Orders Sent Yes Assessment/Plan Assessment/Plan (1) Pressure injury of sacral region, stage 4: CODE(S): L89.154 - Pressure ulcer of sacral region, stage 4 (2) S/P laminectomy with spinal fusion: CODE(S): Z98.1 - Arthrodesis status (3) Paraplegia: CODE(S): G82.20 - Paraplegia, unspecified (4) Diabetes mellitus: CODE(S): E11.9 - Type 2 diabetes mellitus without complications (5) Weight loss, non-intentional: CODE(S): R63.4 - Abnormal weight loss (6) Tobacco use disorder: CODE(S): F17.200 - Nicotine dependence, unspecified, uncomplicated (7) Personal history of Methicillin resistant Staphylococcus aureus infection: CODE(S): Z86.14 - Personal history of Methicillin resistant Staphylococcus aureus infection PLAN: Plan Wound care - Continue Silver dressing changes. Wound culture 12/26/22 positive for Proteus miriabilis, Enterococcus faecalis, Streptococcus agalactiae, Anaerobic cocci and Bacteroides fragilis. She was treated with Augmentin. Wound culture from 01/23/23 was positive for MRSA and Morganella morganii. MRSA was treated with Doxycycline. Wound culture 04/03/23 positive for Proteus mirabilis, Enterococcus faecalis, and Anaerobic cocci. She is being treated with Augmentin. Wound culture from 07/03/23 positive for Proteus mirabilis and Enterococcus faecalis which was treated with Augmentin. A wound care was obtained on 08/23/23. It was negative. CT Pelvis was done on 09/20/23. It showed evidence of tissue defect in the medial aspect of the right buttock abutting the distal sacrum. This most likely represents an ulcerated pressure ulcer. Normal urinary bladder. Normal visualized small intestine. Moderate amount of fecal material is seen in the colon. There is no pelvic fluid. There is no pelvic mass lesion or lymphadenopathy. There is diffuse atherosclerotic calcification of the pelvic arteries. Phleboliths are seen in the pelvis. Normal abdominal wall. Extensive metallic streak artifacts due to fusion with intrapedicular screw and aurelia fixation the lower lumbar spine. Patient has diabetes mellitus. Her last HgbA1c from 09/18/20 was 5.9. For elective surgeries such as a myocutaneous flap for closure of the sacral ulcer, the HgbA1c needs to be less than 8. Encouraged nutritional supplementation with protein to help the healing process. Will check Prealbumin at the time of the operative debridement. Will maximize her nutrition at the time of the myocutaneous flap as the Prealbumin should ideally be greater than 20. If the sacral ulcer looks good at the time of the myocutaneous flap, a Prealbumin of 16-20 would be acceptable. Also at the time of the operative debridement, a wound culture would be obtained. A positive culture will necessitate antibiotic therapy. If Pseudomonas or MRSA is present, then 6 weeks of antibiotics would be necessary followed by another operative debridement. Pseudomonas can destroy muscle flaps if not completely treated. Stressed importance of not sitting or laying on her pressure ulcer for long periods of time. Encouraged patient to stop smoking as it may have deleterious effects on wound healing. For the elective myocutaneous flap for closure of the sacral ulcer, it is strongly encouraged to stop smoking to optimize healing of the flap. Healing is slow. Undermining still present superiorly. An operative debridement will be beneficial. Will check soft tissue and bone for Pathology and Microbiology. Surgery will be done under general anesthesia with a surgical observation overnight stay in the hospital. A VAC will be placed during the hospital stay. Patient was informed of the risks and complications of the procedure including alternatives to surgery. These were discussed with the patient personally. Patient voices understanding and wishes to proceed. Potential risks and complications included but not inclusive of bleeding, infection, seroma, hematoma, bruising, swelling, wound breakdown, poor scarring, poor aesthetic outcome, intra operative cardiac or neurologic events, DVT, PE, and reaction to anesthesia. Will schedule the surgery in the next month or two based on availability. Follow up one week.
== END 2023-10-22 23:59 | disposition home or self-care (01) ==
LOC: WC 14:00
PROVIDERS: PCP Internal Medicine; Referring Provider Obstetrics & Gynecology; Visit Provider Surgery
DX: L89.154 Pressure ulcer of sacral region, stage 4 (principal); G82.20 Paraplegia, unspecified; E11.9 Type 2 diabetes mellitus without complications; Z98.1 Arthrodesis status; R63.4 Abnormal weight loss; F17.200 Nicotine dependence, unspecified, uncomplicated; Z86.14 Personal history of Methicillin resistant Staphylococcus aureus infection
CPT/HCPCS: 11042; 11043

== ENCOUNTER 2023-11-06 13:00 | Outpatient (RCR) | payer MEDICARE, MEDICAID, SELFPAY ==
[2023-10-23 00:43] VITALS: BP 118/64; PULSE 68; RESP 18; TEMP 35.7
[2023-10-25 13:34] VITALS: BP 92/63; PULSE 86; RESP 20; TEMP 36.4
--- NOTE | 2023-10-25 15:02 | PN.PCM_ITS ---
History of Present Illness Date of Service: 10/25/23 Chief Complaint: Sacral ulcer History of Wound: Patient is a 63 year old female who previously was a patient here and known to me, but had back surgery in early September 2022 at [facility] and then went to rehab at [facility] after that. She had a aurelia replaced in her back. Before her surgery, she was not able to lie flat due to increased pain, so she spent most of her time in her wheelchair. Now since her surgery, she is in too much back pain to sit in her wheelchair. She presents today with an ulcer to her sacrum. She was in the ED on 12/10/22 for increased wound drainage and was treated with Keflex, which she has completed. She does have home health to assist with dressing changes. She has lost 100 lbs since last being here in early September. Wound care - Silver dressing changes daily. Wound culture 12/26/22 positive for Proteus mirabilis, Enterococcus faecalis, Streptococcus agalactiae, Anaerobic cocci and Bacteroides fragilis. She was treated with Augmentin. Wound culture from 01/23/23 was positive for MRSA and Morganella morganii. The MRSA was treated with Doxycycline. Wound culture 04/03/23 positive for Proteus mirabilis, Enterococcus faecalis, and Anaerobic cocci. She was treated with Augmentin. Wound culture from 07/03/23 positive for Proteus mirabilis and Enterococcus faecalis which was treated with Augmentin. Wound culture was done on 08/23/23. It was negative. She had CT Pelvis on 09/20/23. It showed evidence of tissue defect in the medial aspect of the right buttock abutting the distal sacrum. This most likely represents an ulcerated pressure ulcer. Normal urinary bladder. Normal visualized small intestine. Moderate amount of fecal material is seen in the colon. There is no pelvic fluid. There is no pelvic mass lesion or lymphadenopathy. There is diffuse atherosclerotic calcification of the pelvic arteries. Phleboliths are seen in the pelvis. Normal abdominal wall. Extensive metallic streak artifacts due to fusion with intrapedicular screw and aurelia fixation the lower lumbar spine. Today she denies fever. Her appetite is ok. Progress of Wound: Slight improvement. Objective Data Objective Data Vital Signs: Vital Signs Temp Pulse Resp BP 97.6 F L 86 20 H 92/63 10/25/23 13:34 10/25/23 13:34 10/25/23 13:34 10/25/23 13:34 Lab / Micro Data Attestation: I reviewed the patient's lab results. Lab results narrative: Patient has diabetes mellitus. Her last HgbA1c from 09/18/20 was 5.9. For elective surgeries, the HgbA1c needs to be less than 8. Charges/Coding Procedures Integumentary [id number]: [id number] Shila musc/fascia 20 sq cm/< (ICD-10 - L89.154, Z98.1, G82.20, E11.9, R63.4, F17.200, Z86.14) Debridement Note Debridement Note Wound debrided: #14 Sacral area. Laterality: Not Applicable Wound Grade/Stage: IV. Type of Debridement: Excisional debridement Anesthesia Used: 5% Lidocaine Gel and Cetacaine Depth: Down to and including healthy tissue, in the subcutaneous layer, to muscle and to bone (bone is palpable but not exposed.) Percentage of wound debrided: 100 Instrument Used: 5mm curette Tissue Removed: subcutaneous tissue, senescent cells, devitalized tissue and muscle. Severity: Fat Layer Exposed (muscle is exposed. bone is palpable but not exposed.) Amount of bleeding with debridement: Mild Bleeding Controlled with: Pressure and Compression and gauze Patient tolerated procedure: Patient tolerated procedure well Post-Debridement Measurements and Additional Note: Post-Debridement Measurements/Treatment - Nurse 1 - General Ulcer Assessment Start: 10/25/23 13:34 Freq: Status: Active Protocol: .LOWEXChrissy Activity Type Activity Date Activity User E-sign Co-sign Detail Recorded Client Recorded Date Recorded By Document 10/25/23 13:34 Desktop 10/25/23 13:42 DL 10/25/23 13:34 - Today's Visit Information Type of service Follow-up Visit (Physician/PERFORMANCE IMPROVEMENT COORDINATOR ) Arrival Mode Wheelchair Transfer Assistance Manual Transfer Assist (Other) x2 Patient Identification Verified (Name & Yes ) Patient Requires Transmission-Based No Precautions Vital Signs Temperature (97.8 F-99.1 F) 97.6 F L Temperature Source Temporal Pulse Rate (60-100) 86 Pulse Location Monitor Respiratory Rate (12-18) 20 H Respiratory rate source Observation Blood Pressure (90/60-120/80) 92/63 Blood Pressure Mean (mm Hg) 72 Source Monitor History Since Last Visit- (Skip if this is Patient's initial visit) Have you changed medications since your No last visit? Any new allergies or adverse reactions No Had a fall/change in ADL's that may No increase risk of falls Signs or symptoms of abuse and/or No neglect since last visit Have you been in the hospital since your No last visit? Has dressing in place as prescribed Yes Has compression in place as prescribed N/A Has offloadiing in place as prescribed Yes Experienced any changes in pain level or No management Pain Scale: 0-10 Numeric Is Patient Pain Free? Yes WC - Nurse 1 - General Ulcer Measurement Start: 10/25/23 13:34 Freq: Status: Active Protocol: Activity Type Activity Date Activity User E-sign Co-sign Detail Recorded Client Recorded Date Recorded By Document 10/25/23 13:34 DL Desktop 10/25/23 13:42 DL 10/25/23 13:34 Wound Center Nurse 1 #14- L SACRAL -Current Size (cm) - Length 3.3 -Current Size (cm) - Width 1.6 -Current Size (cm) - Depth 0.6 -Total Square Cm 5.28 -Undermining/Tunneling Starts (O'clock 7 ) -Undermining/Tunneling Ends (O'clock) 12 -Maximum Distance (cm) 3.1 -Exudate Amt Medium -Exudate Type Serosanguineous -Wound Margin Thickened & Rolled Under -Granulation Amt Medium (34-66%) -Granulation Quality Red -Necrosis Amt Medium (34-66%) -Necrotic Tissue Type Adherent Slough -Structure Exposed N/A -Texture (Vivi-wound Skin Appearance) Scarring -Moisture (Vivi-wound Skin Appearance) No Abnormality -Color (Vivi-wound Skin Appearance) Erythema -Temperature (Vivi-wound Skin No Abnormality Appearance) (Pt Warm) -Ulcer Cleansing Soap and Water -Foul Odor after Cleansing No -Anesthetic Used 5% Lidocaine Gel WC - Nurse 2 - General Ulcer CM Notes Start: 10/25/23 13:34 Freq: Status: Active Protocol: Activity Type Activity Date Activity User E-sign Co-sign Detail Recorded Client Recorded Date Recorded By Document 10/25/23 13:49 MW Desktop 10/25/23 13:55 MW 10/25/23 13:49 Wound Center Nurse 2 -Time 13:51 -Correct Patient Yes -Correct Side, Site, Position Yes -Correct Procedure Yes -Procedure Performed Yes -Type of Procedure Debridement -Clinical Debridement Muscle / Fascia -Tissue Removed Muscle,Fascia -Post Debridement (cm) - Length 3.5 -Post Debridement (cm) - Width 1.7 -Post Debridement (cm) - Depth 0.6 -Total Square (Post) (cm) 5.95 -Area of Debridement (cm) - Length 3.5 -Area of Debridement (cm) - Width 1.7 -Total Square (Area) (cm) 5.95 -Tunneling No -Undermining/Tunneling No -Circular Undermining No -Wound/Ulcer Outcome Not Healed -Ulcer Cleansing Rinsed/ Irrigated with Saline -Foul Odor after Cleansing No -Bioengineered Tissue No -Bleeding Controlled with Pressure -Treatment Response Procedure Tolerated Well -Offloading No -Debridement - Muscle / Fascia, 1st Yes 20sq cm Pain Scale: 0-10 Numeric Is Patient Pain Free? Yes - Nurse 3 - General Ulcer D/C NN Start: 10/25/23 13:34 Freq: Status: Active Protocol: Activity Type Activity Date Activity User E-sign Co-sign Detail Recorded Client Recorded Date Recorded By Document 10/25/23 13:57 MW Desktop 10/25/23 13:59 MW 10/25/23 13:57 Wound Care Center Nurse 3 #14- L SACRAL -Ulcer Cleansing Rinsed/ Irrigated with Saline -Foul Odor after Cleansing No -Negative Pressure Wound Therapy N/A -Primary Dressing Applied Aquacel AG 4x4, Mepilex Border -Aquacel AG 4x4 1 -Mepilex Border 1 Treatment Response Procedure Tolerated Well Pain Scale: 0-10 Numeric Is Patient Pain Free? Yes Teaching: Wound Center Dressing Your Wound -Person Taught Patient -Teaching Method Discussion -Response to teaching Verbalize understanding WC - Visit Discharge Discharge Condition Stable Ambulatory Status Ambulatory Transportation [facility] Accompanied by SELF Medication Reconcilliation completed & Yes provided to patient/care provider Clinical Summary of Care Provided No Assessment/Plan Assessment/Plan (1) Pressure injury of sacral region, stage 4: CODE(S): L89.154 - Pressure ulcer of sacral region, stage 4 (2) S/P laminectomy with spinal fusion: CODE(S): Z98.1 - Arthrodesis status (3) Paraplegia: CODE(S): G82.20 - Paraplegia, unspecified (4) Diabetes mellitus: CODE(S): E11.9 - Type 2 diabetes mellitus without complications (5) Weight loss, non-intentional: CODE(S): R63.4 - Abnormal weight loss (6) Tobacco use disorder: CODE(S): F17.200 - Nicotine dependence, unspecified, uncomplicated (7) Personal history of Methicillin resistant Staphylococcus aureus infection: CODE(S): Z86.14 - Personal history of Methicillin resistant Staphylococcus aureus infection PLAN: Plan Wound care - Continue Silver dressing changes. Wound culture 12/26/22 positive for Proteus miriabilis, Enterococcus faecalis, Streptococcus agalactiae, Anaerobic cocci and Bacteroides fragilis. She was treated with Augmentin. Wound culture from 01/23/23 was positive for MRSA and Morganella morganii. MRSA was treated with Doxycycline. Wound culture 04/03/23 positive for Proteus mirabilis, Enterococcus faecalis, and Anaerobic cocci. She is being treated with Augmentin. Wound culture from 07/03/23 positive for Proteus mirabilis and Enterococcus faecalis which was treated with Augmentin. A wound care was obtained on 08/23/23. It was negative. CT Pelvis was done on 09/20/23. It showed evidence of tissue defect in the medial aspect of the right buttock abutting the distal sacrum. This most likely represents an ulcerated pressure ulcer. Normal urinary bladder. Normal visualized small intestine. Moderate amount of fecal material is seen in the colon. There is no pelvic fluid. There is no pelvic mass lesion or lymphadenopathy. There is diffuse atherosclerotic calcification of the pelvic arteries. Phleboliths are seen in the pelvis. Normal abdominal wall. Extensive metallic streak artifacts due to fusion with intrapedicular screw and aurelia fixation the lower lumbar spine. Patient has diabetes mellitus. Her last HgbA1c from 09/18/20 was 5.9. For elective surgeries such as a myocutaneous flap for closure of the sacral ulcer, the HgbA1c needs to be less than 8. Encouraged nutritional supplementation with protein to help the healing process. Will check Prealbumin at the time of the operative debridement. Will maximize her nutrition at the time of the myocutaneous flap as the Prealbumin should ideally be greater than 20. If the sacral ulcer looks good at the time of the myocutaneous flap, a Prealbumin of 16-20 would be acceptable. Also at the time of the operative debridement, a wound culture would be obtained. A positive culture will necessitate antibiotic therapy. If Pseudomonas or MRSA is present, then 6 weeks of antibiotics would be necessary followed by another operative debridement. Pseudomonas can destroy muscle flaps if not completely treated. Stressed importance of not sitting or laying on her pressure ulcer for long periods of time. Encouraged patient to stop smoking as it may have deleterious effects on wound healing. For the elective myocutaneous flap for closure of the sacral ulcer, it is strongly encouraged to stop smoking to optimize healing of the flap. Healing is slow. Undermining still present superiorly. An operative debridement will be beneficial. Will check soft tissue and bone for Pathology and Microbiology. Surgery will be done under general anesthesia with a surgical observation o vernight stay in the hospital. A VAC will be placed during the hospital stay. Patient was informed of the risks and complications of the procedure including alternatives to surgery. These were discussed with the patient personally. Patient voices understanding and wishes to proceed. Potential risks and complications included but not inclusive of bleeding, infection, seroma, hematoma, bruising, swelling, wound breakdown, poor scarring, poor aesthetic outcome, intra operative cardiac or neurologic events, DVT, PE, and reaction to anesthesia. Will schedule the surgery in the next month or two based on availability. Follow up one week.
[2023-10-30 13:20] VITALS: BP 111/71; PULSE 94; RESP 18; TEMP 35.9
--- NOTE | 2023-10-30 14:25 | PN.PCM_ITS ---
History of Present Illness Date of Service: 10/30/23 Chief Complaint: Sacral ulcer History of Wound: Patient is a 63 year old female who previously was a patient here and known to me, but had back surgery in early September 2022 at [facility] and then went to rehab at [facility] after that. She had a aurelia replaced in her back. Before her surgery, she was not able to lie flat due to increased pain, so she spent most of her time in her wheelchair. Now since her surgery, she is in too much back pain to sit in her wheelchair. She presents today with an ulcer to her sacrum. She was in the ED on 12/10/22 for increased wound drainage and was treated with Keflex, which she has completed. She does have home health to assist with dressing changes. She has lost 100 lbs since last being here in early September. Wound care - Silver dressing changes daily. Wound culture 12/26/22 positive for Proteus mirabilis, Enterococcus faecalis, Streptococcus agalactiae, Anaerobic cocci and Bacteroides fragilis. She was treated with Augmentin. Wound culture from 01/23/23 was positive for MRSA and Morganella morganii. The MRSA was treated with Doxycycline. Wound culture 04/03/23 positive for Proteus mirabilis, Enterococcus faecalis, and Anaerobic cocci. She was treated with Augmentin. Wound culture from 07/03/23 positive for Proteus mirabilis and Enterococcus faecalis which was treated with Augmentin. Wound culture was done on 08/23/23. It was negative. She had CT Pelvis on 09/20/23. It showed evidence of tissue defect in the medial aspect of the right buttock abutting the distal sacrum. This most likely represents an ulcerated pressure ulcer. Normal urinary bladder. Normal visualized small intestine. Moderate amount of fecal material is seen in the colon. There is no pelvic fluid. There is no pelvic mass lesion or lymphadenopathy. There is diffuse atherosclerotic calcification of the pelvic arteries. Phleboliths are seen in the pelvis. Normal abdominal wall. Extensive metallic streak artifacts due to fusion with intrapedicular screw and aurelia fixation the lower lumbar spine. Today she denies fever. Her appetite is ok. We are in the process of scheduling her excision of sacral pressure sore surgery. Progress of Wound: Slight improvement. Objective Data Objective Data Vital Signs: Vital Signs Temp Pulse Resp BP O2 Del Method 96.7 F L 94 18 111/71 Room Air 10/30/23 13:20 10/30/23 13:20 10/30/23 13:20 10/30/23 13:20 10/30/23 13:20 Oxygen Delivery Method Room Air Lab / Micro Data Attestation: I reviewed the patient's lab results. Lab results narrative: Patient has diabetes mellitus. Her last HgbA1c from 09/18/20 was 5.9. For elective surgeries, the HgbA1c needs to be less than 8. Charges/Coding Procedures Integumentary 111xxx-113xx: [id number] Shila musc/fascia 20 sq cm/< (ICD-10 - L89.154, Z98.1, G82.20, E11.9, R63.4, F17.200, Z86.14) Debridement Note Debridement Note Wound debrided: #14 Sacral area. Laterality: Not Applicable Wound Grade/Stage: IV. Type of Debridement: Excisional debridement Anesthesia Used: 5% Lidocaine Gel and Cetacaine Depth: Down to and including healthy tissue, in the subcutaneous layer, to muscle and to bone (bone is palpable but not exposed.) Percentage of wound debrided: 100 Instrument Used: 5mm curette Tissue Removed: subcutaneous tissue, senescent cells, devitalized tissue and muscle. Severity: Fat Layer Exposed (muscle is exposed. bone is palpable but not exposed.) Amount of bleeding with debridement: Mild Bleeding Controlled with: Pressure and Compression and gauze Patient tolerated procedure: Patient tolerated procedure well Post-Debridement Measurements and Additional Note: Post-Debridement Measurements/Treatment WC - Nurse 1 - General Ulcer Assessment Start: 10/25/23 13:34 Freq: Status: Active Protocol: TAISHA Activity Type Activity Date Activity User E-sign Co-sign Detail Recorded Client Recorded Date Recorded By Document 10/25/23 13:34 DL Desktop 10/25/23 13:42 DL Document 10/30/23 13:20 KW Desktop 10/30/23 13:29 KW 10/25/23 10/30/23 13:34 13:20 - Today's Visit Information Type of service Follow-up Visit (Physician/OBSERVER HELPER ) Arrival Mode Wheelchair Wheelchair Transfer Assistance Manual Transfer Assist (Other) x2 Patient Identification Verified (Name & Yes Yes ) Patient Requires Transmission-Based No Precautions Vital Signs Temperature (97.8 F-99.1 F) 97.6 F L 96.7 F L Temperature Source Temporal Temporal Pulse Rate (60-100) 86 94 Pulse Location Monitor Monitor Respiratory Rate (12-18) 20 H 18 Respiratory rate source Observation Observation Oxygen Delivery Method Room Air Blood Pressure (90/60-120/80) 92/63 111/71 Blood Pressure Mean (mm Hg) 72 84 Source Monitor Monitor Position Semi-Fowlers Blood Pressure Location Left Arm History Since Last Visit- (Skip if this is Patient's initial visit) Have you changed medications since your No No last visit? Any new allergies or adverse reactions No No Had a fall/change in ADL's that may No No increase risk of falls Signs or symptoms of abuse and/or No No neglect since last visit Have you been in the hospital since your No No last visit? Has dressing in place as prescribed Yes Yes Has compression in place as prescribed N/A N/A Has offloadiing in place as prescribed Yes Yes Experienced any changes in pain level or No No management Left Footwear Slipper Right Footwear Slipper Pain Scale: 0-10 Numeric Is Patient Pain Free? Yes Yes WC - Nurse 1 - General Ulcer Measurement Start: 10/25/23 13:34 Freq: Status: Active Protocol: Activity Type Activity Date Activity User E-sign Co-sign Detail Recorded Client Recorded Date Recorded By Document 10/25/23 13:34 DL Desktop 10/25/23 13:42 DL Document 10/30/23 13:20 KW Desktop 10/30/23 13:29 KW 10/25/23 10/30/23 13:34 13:20 Wound Center Nurse 1 #14- L SACRAL -Current Size (cm) - Length 3.3 3 -Current Size (cm) - Width 1.6 1.4 -Current Size (cm) - Depth 0.6 0.5 -Total Square Cm 5.28 4.2 -Photo Taken Yes -Undermining/Tunneling Yes -Undermining/Tunneling Starts (O'clock 7 7 ) -Undermining/Tunneling Ends (O'clock) 12 12 -Maximum Distance (cm) 3.1 3.5 -Exudate Amt Medium Medium -Exudate Type Serosanguineous Serosanguineous -Wound Margin Thickened & Distinct, Rolled Under Outline Attached -Granulation Amt Medium (34-66%) Large (67-100%) -Granulation Quality Red Red -Necrosis Amt Medium (34-66%) Medium (34-66%) -Necrotic Tissue Type Adherent Slough Adherent Slough -Structure Exposed N/A Bone -Texture (Vivi-wound Skin Appearance) Scarring Assessed -Moisture (Vivi-wound Skin Appearance) No Abnormality Assessed -Color (Vivi-wound Skin Appearance) Erythema Assessed, Erythema -Temperature (Vivi-wound Skin No Abnormality No Abnormality Appearance) (Pt Warm) (Pt Warm) -Ulcer Cleansing Soap and Water Soap and Water -Foul Odor after Cleansing No -Anesthetic Used 5% Lidocaine 4% Lidocaine Gel Solution WC - Nurse 2 - General Ulcer CM Notes Start: 10/25/23 13:34 Freq: Status: Active Protocol: Activity Type Activity Date Activity User E-sign Co-sign Detail Recorded Client Recorded Date Recorded By Document 10/25/23 13:49 MW Desktop 10/25/23 13:55 MW Document 10/30/23 13:53 JF Laptop 10/30/23 13:54 10/25/23 10/30/23 13:49 13:53 Wound Center Nurse 2 #14- L SACRAL -Time 13:51 13:53 -Correct Patient Yes Yes -Correct Side, Site, Position Yes Yes -Correct Procedure Yes Yes -Procedure Performed Yes Yes -Type of Procedure Debridement Debridement -Clinical Debridement Muscle / Fascia Muscle / Fascia -Tissue Removed Muscle,Fascia Muscle,Fascia -Post Debridement (cm) - Length 3.5 3.7 -Post Debridement (cm) - Width 1.7 1.8 -Post Debridement (cm) - Depth 0.6 1.1 -Total Square (Post) (cm) 5.95 6.66 -Area of Debridement (cm) - Length 3.5 3.7 -Area of Debridement (cm) - Width 1.7 1.8 -Total Square (Area) (cm) 5.95 6.66 -Tunneling No No -Undermining/Tunneling No No -Circular Undermining No No -Wound/Ulcer Outcome Not Healed Not Healed -Ulcer Cleansing Rinsed/ Rinsed/ Irrigated with Irrigated with Saline Saline -Foul Odor after Cleansing No No -Bioengineered Tissue No No -Bleeding Controlled with Pressure NA,Pressure -Treatment Response Procedure Procedure Tolerated Well Tolerated Well -Offloading No No -Pressure Reduction Wheelchair cushion -Debridement - Muscle / Fascia, 1st Yes Yes 20sq cm Pain Scale: 0-10 Numeric Is Patient Pain Free? Yes Yes WC - Nurse 3 - General Ulcer D/C NN Start: 10/25/23 13:34 Freq: Status: Active Protocol: Activity Type Activity Date Activity User E-sign Co-sign Detail Recorded Client Recorded Date Recorded By Document 10/25/23 13:57 MW Desktop 10/25/23 13:59 MW Document 10/30/23 13:57 DL Desktop 10/30/23 13:59 DL 10/25/23 10/30/23 13:57 13:57 Wound Care Center Nurse 3 #14- L SACRAL -Ulcer Cleansing Rinsed/ Soap and Water Irrigated with Saline -Foul Odor after Cleansing No No -Negative Pressure Wound Therapy N/A -Primary Dressing Applied Aquacel AG 4x4, Mepilex Border, Mepilex Border Silvercel -Primary Dressing Covered/Secured with Dry Gauze -Aquacel AG 4x4 1 -Mepilex Border 1 1 -Silvercel 1 Treatment Response Procedure Procedure Tolerated Well Tolerated Well Pain Scale: 0-10 Numeric Is Patient Pain Free? Yes Yes Teaching: Wound Center Dressing Your Wound -Person Taught Patient -Teaching Method Discussion -Response to teaching Verbalize understanding WC - Visit Discharge Discharge Condition Stable Stable Ambulatory Status Ambulatory Wheelchair Transportation [facility] Accompanied by SELF daughter Medication Reconcilliation completed & Yes provided to patient/care provider Clinical Summary of Care Provided No Facility Type Home Health Orders Sent Yes Assessment/Plan Assessment/Plan (1) Pressure injury of sacral region, stage 4: CODE(S): L89.154 - Pressure ulcer of sacral region, stage 4 (2) S/P laminectomy with spinal fusion: CODE(S): Z98.1 - Arthrodesis status (3) Paraplegia: CODE(S): G82.20 - Paraplegia, unspecified (4) Diabetes mellitus: CODE(S): E11.9 - Type 2 diabetes mellitus without complications (5) Weight loss, non-intentional: CODE(S): R63.4 - Abnormal weight loss (6) Tobacco use disorder: CODE(S): F17.200 - Nicotine dependence, unspecified, uncomplicated (7) Personal history of Methicillin resistant Staphylococcus aureus infection: CODE(S): Z86.14 - Personal history of Methicillin resistant Staphylococcus aureus infection PLAN: Plan Wound care - Continue Silver dressing changes. Wound culture 12/26/22 positive for Proteus miriabilis, Enterococcus faecalis, Streptococcus agalactiae, Anaerobic cocci and Bacteroides fragilis. She was treated with Augmentin. Wound culture from 01/23/23 was positive for MRSA and Morganella morganii. MRSA was treated with Doxycycline. Wound culture 04/03/23 positive for Proteus mirabilis, Enterococcus faecalis, and Anaerobic cocci. She is being treated with Augmentin. Wound culture from 07/03/23 positive for Proteus mirabilis and Enterococcus faecalis which was treated with Augmentin. A wound care was obtained on 08/23/23. It was negative. CT Pelvis was done on 09/20/23. It showed evidence of tissue defect in the medial aspect of the right buttock abutting the distal sacrum. This most likely represents an ulcerated pressure ulcer. Normal urinary bladder. Normal visual ized small intestine. Moderate amount of fecal material is seen in the colon. There is no pelvic fluid. There is no pelvic mass lesion or lymphadenopathy. There is diffuse atherosclerotic calcification of the pelvic arteries. Phleboliths are seen in the pelvis. Normal abdominal wall. Extensive metallic streak artifacts due to fusion with intrapedicular screw and aurelia fixation the lower lumbar spine. Patient has diabetes mellitus. Her last HgbA1c from 09/18/20 was 5.9. For elective surgeries such as a myocutaneous flap for closure of the sacral ulcer, the HgbA1c needs to be less than 8. Encouraged nutritional supplementation with protein to help the healing process. Will check Prealbumin at the time of the operative debridement. Will maximize her nutrition at the time of the myocutaneous flap as the Prealbumin should ideally be greater than 20. If the sacral ulcer looks good at the time of the myocutaneous flap, a Prealbumin of 16-20 would be acceptable. Also at the time of the operative debridement, a wound culture would be obtained. A positive culture will necessitate antibiotic therapy. If Pseudomonas or MRSA is present, then 6 weeks of antibiotics would be necessary followed by another operative debridement. Pseudomonas can destroy muscle flaps if not completely treated. Stressed importance of not sitting or laying on her pressure ulcer for long pe riods of time. Encouraged patient to stop smoking as it may have deleterious effects on wound healing. For the elective myocutaneous flap for closure of the sacral ulcer, it is strongly encouraged to stop smoking to optimize healing of the flap. Healing is slow. Undermining still present superiorly. An operative debridement will be beneficial. Will check soft tissue and bone for Pathology and Microbiology. Surgery will be done under general anesthesia with a surgical observation overnight stay in the hospital. A VAC will be placed during the hospital stay. Patient was informed of the risks and complications of the procedure including alternatives to surgery. These were discussed with the patient personally. Patient voices understanding and wishes to proceed. Potential risks and complications included but not inclusive of bleeding, infection, seroma, hematoma, bruising, swelling, wound breakdown, poor scarring, poor aesthetic outcome, intra operative cardiac or neurologic events, DVT, PE, and reaction to anesthesia. Will schedule the surgery in the next month or two based on availability. Follow up one week.
[2023-11-06 13:18] VITALS: BP 140/77; PULSE 87; RESP 18; TEMP 35.7
--- NOTE | 2023-11-06 16:50 | PCM.WC.PN ---
History of Present Illness Date of Service: 11/06/23 Chief Complaint: Sacral ulcer History of Wound: Patient is a 63 year old female who previously was a patient here and known to me, but had back surgery in early September 2022 at [facility] and then went to rehab at [place] after that. She had a aurelia replaced in her back. Before her surgery, she was not able to lie flat due to increased pain, so she spent most of her time in her wheelchair. Now since her surgery, she is in too much back pain to sit in her wheelchair. She presents today with an ulcer to her sacrum. She was in the ED on 12/10/22 for increased wound drainage and was treated with Keflex, which she has completed. She does have home health to assist with dressing changes. She has lost 100 lbs since last being here in early September. Wound care - Silver dressing changes daily. Wound culture 12/26/22 positive for Proteus mirabilis, Enterococcus faecalis, Streptococcus agalactiae, Anaerobic cocci and Bacteroides fragilis. She was treated with Augmentin. Wound culture from 01/23/23 was positive for MRSA and Morganella morganii. The MRSA was treated with Doxycycline. Wound culture 04/03/23 positive for Proteus mirabilis, Enterococcus faecalis, and Anaerobic cocci. She was treated with Augmentin. Wound culture from 07/03/23 positive for Proteus mirabilis and Enterococcus faecalis which was treated with Augmentin. Wound culture was done on 08/23/23. It was negative. She had CT Pelvis on 09/20/23. It showed evidence of tissue defect in the medial aspect of the right buttock abutting the distal sacrum. This most likely represents an ulcerated pressure ulcer. Normal urinary bladder. Normal visualized small intestine. Moderate amount of fecal material is seen in the colon. There is no pelvic fluid. There is no pelvic mass lesion or lymphadenopathy. There is diffuse atherosclerotic calcification of the pelvic arteries. Phleboliths are seen in the pelvis. Normal abdominal wall. Extensive metallic streak artifacts due to fusion with intrapedicular screw and aurelia fixation the lower lumbar spine. Today she denies fever. Her appetite is ok. Progress of Wound: Left sacral ulcer is stable. There continues to be undermining from 7-12 with the deepest portion being 3.6 cm. Objective Data Objective Data Vital Signs: Vital Signs Temp Pulse Resp BP O2 Del Method 96.3 F L 87 18 140/77 H Room Air 11/06/23 13:18 11/06/23 13:18 11/06/23 13:18 11/06/23 13:18 11/06/23 13:18 Oxygen Delivery Method Room Air Charges/Coding Procedures Integumentary [id number]: [id number] Shila musc/fascia 20 sq cm/< (ICD-10 - L89.154, Z98.1, G82.20, E11.9, R63.4, F17.200, Z86.14) Debridement Note Debridement Note Wound debrided: #14 Sacral area. Laterality: Not Applicable Wound Grade/Stage: IV. Type of Debridement: Excisional debridement Anesthesia Used: 5% Lidocaine Gel and Cetacaine Depth: Down to and including healthy tissue, in the subcutaneous layer, to muscle and to bone (bone is palpable but not exposed.) Percentage of wound debrided: 100 Instrument Used: 5mm curette Tissue Removed: subcutaneous tissue, senescent cells, devitalized tissue and muscle. Severity: Fat Layer Exposed (muscle is exposed. bone is palpable but not exposed.) Amount of bleeding with debridement: Mild Bleeding Controlled with: Pressure and Compression and gauze Patient tolerated procedure: Patient tolerated procedure well Post-Debridement Measurements and Additional Note: Post-Debridement Measurements/Treatment - Nurse 1 - General Ulcer Assessment Start: 10/25/23 13:34 Freq: Status: Active Protocol: [email or web address] Activity Type Activity Date Activity User E-sign Co-sign Detail Recorded Client Recorded Date Recorded By Document 10/25/23 13:34 DL Desktop 10/25/23 13:42 DL Document 10/30/23 13:20 KW Desktop 10/30/23 13:29 KW Document 11/06/23 13:18 KW [id number] 11/06/23 13:20 KW 10/25/23 10/30/23 11/06/23 13:34 13:20 13:18 WC - Today's Visit Information Type of service Follow-up Visit Follow-up Visit (Physician/FISH HATCHERY WORKER (Physician/FISH HATCHERY WORKER ) ) Arrival Mode Wheelchair Wheelchair Wheelchair Transfer Assistance Manual Transfer Assist (Other) x2 Patient Identification Verified (Name & Yes Yes Yes ) Patient Requires Transmission-Based No Precautions Vital Signs Temperature (97.8 F-99.1 F) 97.6 F L 96.7 F L 96.3 F L Temperature Source Temporal Temporal Temporal Pulse Rate (60-100) 86 94 87 Pulse Location Monitor Monitor Monitor Respiratory Rate (12-18) 20 H 18 18 Respiratory rate source Observation Observation Observation Oxygen Delivery Method Room Air Room Air Blood Pressure (90/60-120/80) 92/63 111/71 140/77 H Blood Pressure Mean (mm Hg) 72 84 98 Source Monitor Monitor Monitor Position Semi-Fowlers Sitting Blood Pressure Location Left Arm Left Arm History Since Last Visit- (Skip if this is Patient's initial visit) Have you changed medications since your No No No last visit? Any new allergies or adverse reactions No No No Had a fall/change in ADL's that may No No No increase risk of falls Signs or symptoms of abuse and/or No No No neglect since last visit Have you been in the hospital since your No No No last visit? Has dressing in place as prescribed Yes Yes Yes Has compression in place as prescribed N/A N/A N/A Has offloadiing in place as prescribed Yes Yes N/A Experienced any changes in pain level or No No No management Left Footwear Slipper Slipper Right Footwear Slipper Slipper Pain Scale: 0-10 Numeric Is Patient Pain Free? Yes Yes Yes WC - Nurse 1 - General Ulcer Measurement Start: 10/25/23 13:34 Freq: Status: Active Protocol: Activity Type Activity Date Activity User E-sign Co-sign Detail Recorded Client Recorded Date Recorded By Document 10/25/23 13:34 DL Desktop 10/25/23 13:42 DL Document 10/30/23 13:20 KW Desktop 10/30/23 13:29 KW Document 11/06/23 13:18 KW [id number] 11/06/23 13:20 KW 10/25/23 10/30/23 11/06/23 13:34 13:20 13:18 Wound Center Nurse 1 #14- L SACRAL -Current Size (cm) - Length 3.3 3 3.2 -Current Size (cm) - Width 1.6 1.4 1.5 -Current Size (cm) - Depth 0.6 0.5 0.3 -Total Square Cm 5.28 4.2 4.80 -Date of Last Picture (Recall this 11/06/23 field) -Photo Taken Yes Yes -Undermining/Tunneling Yes Yes -Undermining/Tunneling Starts (O'clock 7 7 7 ) -Undermining/Tunneling Ends (O'clock) 12 12 12 -Maximum Distance (cm) 3.1 3.5 3.6 -Exudate Amt Medium Medium Large -Exudate Type Serosanguineous Serosanguineous Serosanguineous -Wound Margin Thickened & Distinct, Distinct, Rolled Under Outline Outline Attached Attached -Granulation Amt Medium (34-66%) Large (67-100%) Large (67-100%) -Granulation Quality Red Red Red -Necrosis Amt Medium (34-66%) Medium (34-66%) Small (1-33%) -Necrotic Tissue Type Adherent Slough Adherent Slough Adherent Slough -Structure Exposed N/A Bone -Texture (Vivi-wound Skin Appearance) Scarring Assessed Assessed -Moisture (Vivi-wound Skin Appearance) No Abnormality Assessed Assessed -Color (Vivi-wound Skin Appearance) Erythema Assessed, Assessed Erythema -Temperature (Vivi-wound Skin No Abnormality No Abnormality No Abnormality Appearance) (Pt Warm) (Pt Warm) (Pt Warm) -Tenderness on Palpation (Vivi-wound No Skin Appearance) -Ulcer Cleansing Soap and Water Soap and Water Soap and Water -Foul Odor after Cleansing No No -Anesthetic Used 5% Lidocaine 4% Lidocaine 5% Lidocaine Gel Solution Gel WC - Nurse 2 - General Ulcer CM Notes Start: 10/25/23 13:34 Freq: Status: Active Protocol: Activity Type Activity Date Activity User E-sign Co-sign Detail Recorded Client Recorded Date Recorded By Document 10/25/23 13:49 MW Desktop 10/25/23 13:55 MW Document 10/30/23 13:53 JF Laptop 10/30/23 13:54 JF Document 11/06/23 13:30 Laptop 11/06/23 13:32 10/25/23 10/30/23 11/06/23 13:49 13:53 13:30 Wound Center Nurse 2 #14- L SACRAL -Time 13:51 13:53 13:31 -Correct Patient Yes Yes Yes -Correct Side, Site, Position Yes Yes Yes -Correct Procedure Yes Yes Yes -Procedure Performed Yes Yes Yes -Type of Procedure Debridement Debridement Debridement -Clinical Debridement Muscle / Fascia Muscle / Fascia Muscle / Fascia -Tissue Removed Muscle,Fascia Muscle,Fascia Muscle,Fascia -Post Debridement (cm) - Length 3.5 3.7 3.5 -Post Debridement (cm) - Width 1.7 1.8 2.5 -Post Debridement (cm) - Depth 0.6 1.1 0.8 -Total Square (Post) (cm) 5.95 6.66 8.75 -Area of Debridement (cm) - Length 3.5 3.7 3.5 -Area of Debridement (cm) - Width 1.7 1.8 2.5 -Total Square (Area) (cm) 5.95 6.66 8.75 -Tunneling No No No -Undermining/Tunneling No No Yes -Undermining/Tunneling Starts (O'clock 7 ) -Undermining/Tunneling Ends (O'clock) 12 -Maximum Distance (cm) 3.6 -Circular Undermining No No No -Wound/Ulcer Outcome Not Healed Not Healed Not Healed -Ulcer Cleansing Rinsed/ Rinsed/ Rinsed/ Irrigated with Irrigated with Irrigated with Saline Saline Saline -Foul Odor after Cleansing No No No -Bioengineered Tissue No No No -Bleeding Controlled with Pressure NA,Pressure Pressure -Treatment Response Procedure Procedure Procedure Tolerated Well Tolerated Well Tolerated Well -Offloading No No No -Pressure Reduction Wheelchair Wheelchair cushion cushion -Debridement - Muscle / Fascia, 1st Yes Yes Yes 20sq cm Pain Scale: 0-10 Numeric Is Patient Pain Free? Yes Yes Yes WC - Nurse 3 - General Ulcer D/C NN Start: 10/25/23 13:34 Freq: Status: Active Protocol: Activity Type Activity Date Activity User E-sign Co-sign Detail Recorded Client Recorded Date Recorded By Document 10/25/23 13:57 MW Desktop 10/25/23 13:59 MW Document 10/30/23 13:57 DL Desktop 10/30/23 13:59 DL Document 11/06/23 13:36 BMF Desktop 11/06/23 13:37 BMF 10/25/23 10/30/23 11/06/23 13:57 13:57 13:36 Wound Care Center Nurse 3 #14- L SACRAL -Ulcer Cleansing Rinsed/ Soap and Water Rinsed/ Irrigated with Irrigated with Saline Saline -Foul Odor after Cleansing No No No -Negative Pressure Wound Therapy N/A -Primary Dressing Applied Aquacel AG 4x4, Mepilex Border, Silvercel Mepilex Border Silvercel -Other Dressing abd; drsg per dl courtroom deputy or calendar clerk -Primary Dressing Covered/Secured with Dry Gauze Secured with Tape -Aquacel AG 4x4 1 -Mepilex Border 1 1 -Silvercel 1 1 Treatment Response Procedure Procedure Procedure Tolerated Well Tolerated Well Tolerated Well Pain Scale: 0-10 Numeric Is Patient Pain Free? Yes Yes Yes Teaching: Wound Center Dressing Your Wound -Person Taught Patient -Teaching Method Discussion -Response to teaching Verbalize understanding WC - Visit Discharge Discharge Condition Stable Stable Stable Ambulatory Status Ambulatory Wheelchair Wheelchair Transportation [employer] Accompanied by SELF daughter daughter [place] Medication Reconcilliation completed & Yes provided to patient/care provider Clinical Summary of Care Provided No Facility Type Home Health Manager Home Improvement Care Facility Orders Sent Yes Assessment/Plan Assessment/Plan (1) Pressure injury of sacral region, stage 4: CODE(S): L89.154 - Pressure ulcer of sacral region, stage 4 (2) S/P laminectomy with spinal fusion: CODE(S): Z98.1 - Arthrodesis status (3) Paraplegia: CODE(S): G82.20 - Paraplegia, unspecified (4) Diabetes mellitus: CODE(S): E11.9 - Type 2 diabetes mellitus without complications (5) Weight loss, non-intentional: CODE(S): R63.4 - Abnormal weight loss (6) Tobacco use disorder: CODE(S): F17.200 - Nicotine dependence, unspecified, uncomplicated (7) Personal history of Methicillin resistant Staphylococcus aureus infection: CODE(S): Z86.14 - Personal history of Methicillin resistant Staphylococcus aureus infection PLAN: Plan Wound care - Continue Aquacel-Ag covered by ABD daily. Wash area with soap and water at the time of the dressing changes. Wound culture 12/26/22 positive for Proteus miriabilis, Enterococcus faecalis, Streptococcus agalactiae, Anaerobic cocci and Bacteroides fragilis. She was treated with Augmentin. Wound culture from 01/23/23 was positive for MRSA and Morganella morganii. MRSA was treated with Doxycycline. Wound culture 04/03/23 positive for Proteus mirabilis, Enterococcus faecalis, and Anaerobic cocci. She is being treated with Augmentin. Wound culture from 07/03/23 positive for Proteus mirabilis and Enterococcus faecalis which was treated with Augmentin. A wound care was obtained on 08/23/23. It was negative. CT Pelvis was done on 09/20/23. It showed evidence of tissue defect in the medial aspect of the right buttock abutting the distal sacrum. This most likely represents an ulcerated pressure ulcer. Normal urinary bladder. Normal visualized small intestine. Moderate amount of fecal material is seen in the colon. There is no pelvic fluid. There is no pelvic mass lesion or lymphadenopathy. There is diffuse atherosclerotic calcification of the pelvic arteries. Phleboliths are seen in the pelvis. Normal abdominal wall. Extensive metallic streak artifacts due to fusion with intrapedicular screw and aurelia fixation the lower lumbar spine. Patient has diabetes mellitus. Her last HgbA1c from 09/18/20 was 5.9. For elective surgeries such as a myocutaneous flap for closure of the sacral ulcer, the HgbA1c needs to be less than 8. Encouraged nutritional supplementation with protein to help the healing process. Will check Prealbumin at the time of the operative debridement. Will maximize her nutrition at the time of the myocutaneous flap as the Prealbumin should ideally be greater than 20. If the sacral ulcer looks good at the time of the myocutaneous flap, a Prealbumin of 16-20 would be acceptable. Also at the time of the operative debridement, a wound culture would be obtained. A positive culture will necessitate antibiotic therapy. If Pseudomonas or MRSA is present, then 6 weeks of antibiotics would be necessary followed by another operative debridement. Pseudomonas can destroy muscle flaps if not completely treated. Stressed importance of not sitting or laying on her pressure ulcer for long periods of time. Encouraged patient to stop smoking as it may have deleterious effects on wound healing. For the elective myocutaneous flap for closure of the sacral ulcer, it is strongly encouraged to stop smoking to optimize healing of the flap. Healing is slow. Undermining still present superiorly. An operative debridement will be beneficial. Will check soft tissue and bone for Pathology and Microbiology. Surgery will be done under general anesthesia with a surgical observation overnight stay in the hospital. A VAC will be placed during the hospital stay. Patient was informed of the risks and complications of the procedure including alternatives to surgery. These were discussed with the patient personally. Patient voices understanding and wishes to proceed. Potential risks and complications included but not inclusive of bleeding, infection, seroma, hematoma, bruising, swelling, wound breakdown, poor scarring, poor aesthetic outcome, intra operative cardiac or neurologic events, DVT, PE, and reaction to anesthesia. Will schedule the surgery in the next month or two based on availability. Follow up two weeks.
== END 2023-11-21 23:59 | disposition home or self-care (01) ==
LOC: WC 13:00
PROVIDERS: PCP Internal Medicine; Referring Provider Obstetrics & Gynecology; Visit Provider Surgery
DX: E11.622 Type 2 diabetes mellitus with other skin ulcer (principal); L89.154 Pressure ulcer of sacral region, stage 4; G82.20 Paraplegia, unspecified; Z98.1 Arthrodesis status; F17.200 Nicotine dependence, unspecified, uncomplicated; Z86.14 Personal history of Methicillin resistant Staphylococcus aureus infection
CPT/HCPCS: 11043

== ENCOUNTER 2023-12-06 22:26 | Emergency (ER) | payer MEDICARE, MEDICAID, SELFPAY ==
[2023-12-06 22:29] VITALS: BP 99/57; PULSE 55; RESP 16; TEMP 36; O2SAT 98
--- NOTE | 2023-12-06 23:10 | EKG12_ITS ---
Test Reason : BACK PAIN Blood Pressure : / mmHG Vent. Rate : 048 BPM Atrial Rate : 048 BPM P-R Int : 166 ms QRS Dur : 088 ms QT Int : 496 ms P-R-T Axes : 059 044 060 degrees QTc Int : 443 ms Sinus bradycardia Otherwise normal ECG Confirmed by Feroz Samaniego ([id number]), dictionary editor WILLIE MAY ([id number]) on 12/11/2023 9:58:44 AM Referred By: Confirmed By:Feroz Samaniego
[2023-12-06 23:31] VITALS: BP 84/53; PULSE 45; RESP 12; TEMP 35.9; O2SAT 97
[2023-12-06 23:50] VITALS: BMI 24.2
[2023-12-07 00:03] LABS: Absolute Lymphocyte Count 2.98 X10^3/uL (0.83-4.51); Absolute Neutrophil Count 3.2 X10^3/uL (2.0-7.7); Basophil# 0.03 X10^3/uL; Basophil% 0.4 % (0-1); Eosinophil# 0.18 X10^3/uL; Eosinophils% 2.7 % (0-5); Hematocrit 35.9 % (37-47); Hemoglobin 11.4 g/dL (12.0-15.0); Lymphocyte # 2.98 X10^3/ul (0.83-4.51); Lymphocyte % 44.1 % (19-41); Mean Corp Hgb Conc 31.8 g/dL (32-36); Mean Corpuscular Hgb 30.1 pg (27.0-32.0); Mean Corpuscular Volume 94.7 fL (81-99); Mean Platelet Vol. 10.2 fl (6.2-12.0); Monocyte% 5.9 % (0-10); NRBC Flagged by Analyzer 0 % (0-5); Neutrophil # 3.15 X10^3/uL (2.7-7.7); Neutrophil % 46.6 % (47-70); Platelet Count 195 K/mm3 (150-450); RBC Distribution Width CV 14.9 % (11.6-14.6); RBC Distribution Width SD 52.2 fl (35.1-43.9); Red Blood Count 3.79 M/mm3 (4.2-5.4); White Blood Count 6.8 K/mm3 (4.4-11.0)
--- NOTE | 2023-12-07 00:04 | EDS_ITS ---
HPI History of Present Illness Chief Complaint: Back Informant: patient Narrative Narrative: Patient presents via EMS secondary to back pain with concern for wound infection. Nursing staff was able to get a note from home health stating a call been placed to the wound center. Home nurse is concerned of increased pain to the wound, drainage with foul odor, and patient reports feeling more tired. Due to concern for wound infection she is sent to the emergency room. Patient is seen at approximate 11 PM and is sleepy during my encounter. [facility] Medical History Personal history of Methicillin resistant Staphylococcus aureus infection Diabetes mellitus Pressure injury of sacral region, stage 4 Weight loss Positive colorectal cancer screening using Cologuard test Witnessed seizure-like activity Ulcer of left lower leg Ulcer of right lower extremity with fat layer exposed Ulcer of left lower extremity with fat layer exposed Toxic encephalopathy Wound, open, abdominal wall, anterior Current tobacco use Chest pain, unspecified Bone lesion Intractable low back pain Major depressive disorder GERD without esophagitis Chronic cluster headache, not intractable Age-related osteoporosis without current pathological fracture Primary generalized (osteo)arthritis Other intervertebral disc degeneration, lumbar region Hypothyroidism Anemia COPD (chronic obstructive pulmonary disease) Muscle weakness Spinal stenosis, lumbar region without neurogenic claudication Neuromuscular scoliosis Chronic low back pain Paraplegia Morbid obesity HTN (hypertension) HLD (hyperlipidemia) Home Medications ?Medication ?Instructions ?Recorded ?Last Taken ?Type ewrzuimjxsti-vrgpicnp-iyzdzd 1 tab PO DAILY supplement 02/26/18 09/23/20 History tablet (Cerovite Senior) levothyroxine 150 mcg tablet 150 mcg PO DAILY thyroid 09/17/20 09/24/20 History pantoprazole 40 mg tablet,delayed 40 mg PO BID PRN stomach 09/17/20 09/24/20 History release acetaminophen 500 mg tablet 500 mg PO Q6H PRN Pain 1-10 Or 10/08/20 Unknown History Fever albuterol sulfate 90 mcg/actuation 2 puff inhalation Q4H PRN PRN Sob 10/08/20 Unknown History aerosol inhaler &/Or Wheezing betamethasone valerate 0.1 % 1 applic topical BID PRN skin 01/15/21 Unknown Rx topical cream irritation #15 grams cetirizine 10 mg tablet 10 mg PO DAILY #30 tabs 01/15/21 Unknown Rx hydrocolloid dressing 4 X 4 #5 ea 09/07/21 Unknown Rx (DuoDERM CGF Adhesive Border Dressing) biotin 1 mg tablet 1 mg PO DAILY SUPPLEMENT 05/17/22 Unknown History calcium citrate 250 mg PO DAILY SUPPLEMENT 05/17/22 Unknown History cholecalciferol (vitamin D3) 25 25 mcg PO DAILY SUPPLEMENT 05/17/22 Unknown History mcg (1,000 unit) capsule cyanocobalamin (vitamin B-12) 1,000 mcg PO DAILY SUPPLEMENT 05/17/22 Unknown History 1,000 mcg tablet ferrous sulfate 325 mg (65 mg 325 mg PO DAILY SUPPLEMENT 05/17/22 Unknown History iron) tablet fluticasone propionate 50 2 spray intranasal DAILY PRN 05/17/22 Unknown History mcg/actuation nasal ALLERGIES spray,suspension mupirocin 2 % topical ointment 1 applic topical DAILY PRN Wound 05/17/22 Unknown History Care gabapentin 300 mg capsule 300 mg PO BID 30 days #60 caps 05/19/22 Unknown Rx dextran 70-hypromellose 0.1 %-0.3 1 drp ophthalmic (eye) TID 05/25/22 Unknown History % eye drops (Artificial Tears (dextran 70-hypromellose)) ipratropium 20 mcg-albuterol 100 1 puff inhalation Q6H PRN copd 05/25/22 Unknown History mcg/actuation mist for inhalation (Combivent Respimat) nystatin 100,000 unit/gram topical 1 applic topical BID 10 days #30 07/08/22 Unknown Rx powder grams sennosides 8.6 mg tablet (Senna 8.6 mg PO .QOD STOOL 08/25/22 Unknown History Lax) ammonium lactate 5 % lotion 1 applic topical BID 30 days #226 09/05/22 Unknown Rx (Lac-Hydrin Five) grams lorazepam 0.5 mg tablet 0.5 mg PO DAILY PRN Anxiety 12/01/22 Unknown History methadone 5 mg tablet 10 mg PO BID 12/01/22 Unknown History naloxone 4 mg/actuation nasal 1 spray intranasal Q2M 12/01/22 Unknown History spray (Narcan) oxycodone-acetaminophen 10 mg-325 1 tab PO Q4H PRN Pain 12/01/22 Unknown History mg tablet (Percocet) valacyclovir 500 mg tablet 500 mg PO DAILY Check with primary 05/12/23 Unknown Rx (Valtrex) doctor #30 tabs scopolamine base 1 mg over 3 days 1 patch transdermal Q3D PRN nausea 05/16/23 Unknown Rx transdermal patch and vomiting #10 ea lidocaine 5 % topical ointment 1 applic topical TID PRN pain #30 07/12/23 Unknown Rx grams misoprostol 200 mcg tablet 200 mcg PO BID 30 days #60 tabs 08/15/23 Unknown Rx Allergy/AdvReac Type Severity Reaction Status Date / Time NSAIDS (Non-Steroidal Allergy GASTRIC Verified 12/06/23 23:27 Anti-Inflamma BYPASS ondansetron (From Zofran) AdvReac Other Verified 12/06/23 23:27 trazodone AdvReac Other Verified 12/06/23 23:27 Family History Father Diabetes Hypertension Myocardial infarction Alcoholism Brother Myocardial infarction Alcoholism Mother CVA (cerebral vascular accident) Surgical History S/P laminectomy with spinal fusion H/O dilation and curettage History of bilateral salpingo-oophorectomy S/P arthroscopic knee surgery s/p nerve spine surgery S/P lumbar spine operation s/p upper back surgery skin graft Hydradenitis History of cholecystectomy H/O gastric bypass Social History Smoking Status: Current every day smoker tobacco type: cigarettes alcohol intake: never substance use type: does not use caffeine: Yes what type of physical activity do you participate in: none seatbelt use: always do you feel safe at home: Yes additional social history: ROS ROS ED ROS Narrative Patient answers limited questions during my initial evaluation. She falls asleep without constant stimulation. Constitutional Constitutional ED: Denies chills or fever(s) Gastrointestinal Gastrointestinal: Denies abdominal pain Musculoskeletal Musculoskeletal: Reports back pain; Denies extremity pain Integumentary Denies Abrasions or rash EXAM Physical Exam Const Vital Signs: 12/06/23 22:29 Temperature 96.8 F L Temperature Source Temporal Pulse Rate 55 L Respiratory Rate 16 Blood Pressure 99/57 L Blood Pressure Mean 71 Pulse Ox 98 Oxygen Delivery Method Room Air Positive well nourished and well developed General Appearance ED: well developed HEENT Reports moist mucous membranes Eyes EOMs intact bilaterally Chest Wall inspection of chest normal and palpation of chest normal Resp normal respiratory effort and clear to auscultation bilaterally Cardio regular rate and regular rhythm GI non-tender Palpation: soft Back/Spine Back/Spine Narrative: Patient is a 4 x 2 cm open wound over the coccyx. Wound edges are clean with no drainage at this time. No evidence of surrounding cellulitis. Extremity Extremity Narrative: Muscle wasting noted to the lower extremities. Neuro Neuro Narrative: Patient sleepy on exam but will wake and answer some questions with stimulation. MDM MDM MDM Narrative Medical decision making narrative: When he went back to roll the patient to examine her wound with nursing staff, she is awake and alert at this time. She is moving all 4 extremities. Nursing staff did note that she is on methadone and Percocet and is wondering if she may have taken that prior to coming in late tonight. IV line will be established. Cultures will be drawn. Labwork obtained to evaluate for leukocytosis, anemia, and electrolyte derangement. Urinalysis obtained to evaluate for infection/hematuria. CT of the pelvis will be obtained with contrast if renal function allows to evaluate for any deep infection at her coccyx wound site. Discharge Plan Triage Chief Complaint: Back ED Provider: Sasha Tucker Dx/Rx/DC Orders Prescriptions: No Action wbrhzmnxdaqs-ihaljztu-hayeyl [Cerovite Senior] tablet 1 tab PO DAILY betamethasone valerate 0.1 % cream 1 applic topical BID PRN (Reason: skin irritation) Qty: 15 0RF cetirizine 10 mg tablet 10 mg PO DAILY Qty: 30 0RF Artificial Tears([id number]) 0.1-0.3 % drops 1 drp ophthalmic (eye) TID Combivent Respimat 20-100 mcg/actuation mist 1 puff inhalation Q6H PRN (Reason: copd) methadone 5 mg tablet 5 mg PO BID oxycodone-acetaminophen [Percocet] 10-325 mg tablet 1 tab PO Q4H PRN (Reason: Pain) naloxone [Narcan] 4 mg/actuation spray,non-aerosol 1 spray intranasal Q2M Rx Instructions: spray 1 dose into ONE nostril; alternate nostrils w each dose until help arrives lorazepam 0.5 mg tablet 0.5 mg PO DAILY PRN (Reason: Anxiety) pantoprazole 40 MG tablet 40 mg PO BID PRN (Reason: stomach) levothyroxine 150 MCG tablet 150 mcg PO DAILY acetaminophen 500 MG tablet 500 mg PO Q6H PRN (Reason: Pain 1-10 Or Fever) albuterol sulfate 1 INHALER inhaler 2 puff INHALATION Q4H PRN PRN (Reason: Sob &/Or Wheezing) ferrous sulfate 325 mg (65 mg iron) Tablet 325 mg PO DAILY mupirocin 2 % ointment 1 applic TOPICAL DAILY PRN (Reason: Wound Care) Patient Comments: apply to LEG WOUNDS -- DIRECTED -- FOR 10 DAYS fluticasone propionate 50 mcg/actuation [place],Suspension 2 spray INTRANASAL DAILY PRN (Reason: ALLERGIES) Rx Instructions: administer into each nostril cholecalciferol (vitamin D3) 25 mcg (1,000 unit) Capsule 25 mcg PO DAILY biotin 1 mg Tablet 1 mg PO DAILY calcium citrate 250 mg calcium Tablet 250 mg PO DAILY cyanocobalamin (vitamin B-12) 1,000 mcg Tablet 1,000 mcg PO DAILY gabapentin 300 mg capsule 300 mg PO BID 30 Days Qty: 60 0RF sennosides [Senna Lax] 8.6 mg tablet 8.6 mg PO .QOD Patient Comments: take 1 tablet by mouth once daily nystatin 100,000 unit/gram powder 1 applic topical BID 10 Days Qty: 30 1RF Rx Instructions: to effected area Lac-Hydrin Five 5 % lotion 1 applic topical BID 30 Days Qty: 226 1RF cephalexin [cephalexin] 500 mg capsule 500 mg PO Q6 Qty: 40 0RF fluconazole 150 mg tablet 150 mg PO DAILY 3 Days Qty: 3 1RF amoxicillin-pot clavulanate 875-125 mg tablet 1 tab PO Q12H 14 Days Qty: 28 1RF (DME) hydrocolloid dressing [DuoDERM CGF Border Dressing] 4 X 4 bandage See Rx Instructions .ROUTE .MEDSUPPLY Qty: 5 6RF Rx Instructions: As directed valacyclovir [Valtrex] 500 mg tablet 500 mg PO DAILY Qty: 30 5RF Rx Instructions: Script transferred from Ken Garcia per Pt request. scopolamine base 1 mg over 3 days patch 3 day 1 patch transdermal Q3D PRN (Reason: nausea and vomiting) Qty: 10 2RF lidocaine 5 % ointment 1 applic topical TID PRN (Reason: pain) Qty: 30 3RF misoprostol 200 mcg tablet 200 mcg PO BID 30 Days Qty: 60 1RF Primary Care Provider: Kevin Bah Referrals: Kevin Bah MD [Primary Care Provider] - Print Language: [place]
[2023-12-07 00:16] LABS: Lactic Acid 0.7 mmol/L (0.4-1.9)
[2023-12-07 00:19] LABS: Anion Gap 2 (5-15); BUN 26 mg/dL (7-18); BUN/Creat Ratio 22.4 RATIO (10-20); Calcium,Total 9.3 mg/dL (8.5-10.1); Chloride 114 mmol/L (98-107); Creatinine, Serum 1.16 mg/dL (0.55-1.02); EST Glomerular Filtration Rate 50 mL/min (>60); Est Glom Filt Rate - Afr Amer 61 mL/min (>60); Estimated Creatinine Clearance 47.07 ml/min; Glucose 96 mg/dL (74-106); Potassium 4.8 mmol/L (3.5-5.1); Sodium Level 141 mmol/L (136-145)
[2023-12-07 00:28] VITALS: BP 84/53; PULSE 45; RESP 12; O2SAT 97
[2023-12-07] MEDS: 0.9% Normal Saline (1000mL) 1,000 ML 999 ML IV (00:35)
--- NOTE | 2023-12-07 00:40 | CT_ITS ---
EXAM: CT PELVIS WITH INTRAVENOUS CONTRAST CLINICAL INDICATION: WOUND TECHNIQUE: Helically acquired images were obtained of the pelvis with intravenous contrast. This CT exam was performed using one or more of the following dose reduction techniques: automated exposure control, adjustment of the mA and/or kV according to patient size, and/or use of iterative reconstruction technique. CONTRAST: IV 100mL Isovue-370 RADIATION DOSE: Total DLP: 1936.34 mGy-cm. COMPARISON: Report of 09/12/2023. FINDINGS: KIDNEYS AND URETERS: Visualized inferior right hepatic lobe is unremarkable. The visualized kidneys are unremarkable except for a simple left renal cortical cyst which requires no follow-up. No hydronephrosis is noted. BOWEL: Moderate amount of formed stool noted within the visualized colon. No distended small bowel loops are seen. Suture material noted about a loop of small bowel within the left mid abdomen. No focal inflammatory change. APPENDIX: No evidence of acute appendicitis. INTRAPERITONEAL SPACE: Unremarkable. No ascites or other fluid collection. No free air. BLADDER: Partially distended urinary bladder is unremarkable. REPRODUCTIVE: Atrophic uterus. No adnexal mass. BONES/JOINTS: As noted in the clinical history, there is been previous lower lumbar posterior fusion with pedicle screws and rods in place; the inferior rods are attached to large caliber screws which transfix each SI joint. There is enlargement of the L3/4 disc space with a lobulated defect with sclerotic margins within the L3/4 endplates, suggesting previous osteomyelitis/discitis. There is no surrounding soft tissue swelling at this time. L4/5 and L5/S1 disc spaces show degenerative narrowing. SOFT TISSUES: Hazy density noted within the subcutaneous fat overlying the lower sacrum and coccyx to the right of midline; a solitary air bubble is noted within this subcutaneous haziness. No ring-enhancing fluid collection is seen to indicate abscess. No underlying osseous destruction is seen to indicate osteomyelitis. VASCULATURE: Visualized abdominal aorta and its branches are calcific, and are normal in caliber. LYMPH NODES: Unremarkable. No enlarged lymph nodes. CT/Pelvis WITH IV Contrast IMPRESSION: Subcutaneous haziness and skin thickening overlying the lower sacrum and coccyx to the right of midline, consistent with cellulitis. Solitary bubble of air within this subcutaneous haziness due to soft tissue infection versus recent intervention. No lytic lesion of the sacrum or coccyx is seen to indicate acute osteomyelitis. Previous lower lumbar fusion. Abnormal widening of the L3/4 disc space without surrounding soft tissue swelling, suggesting previous osteomyelitis/discitis at this level. No abscess identified. Electronically Signed: Mono Blanc MD at 2:10 EDT ,
[2023-12-07 00:42] LABS: Mucous, Urine 0 SEEN /hpf (<or=2+)
[2023-12-07 00:47] LABS: Color, Urine Yellow (Yellow); Glucose, Dipstick Normal (Normal); Ketone-Dipstick 5 mg/dl (Negative); Leukocyte Esterase-Dipstick 500 /ul (Negative); Nitrite-Dipstick Negative (Negative); Occult Blood-Urine 10 /ul (Negative); Protein-Dipstick 30 mg/dl (Negative); Urine Clarity Clear (Clear); Urine Urobilinogen 1 mg/dl (Normal)
[2023-12-07 00:57] LABS: Urine Bilirubin Dipstick 3 mg/dL (Negative)
[2023-12-07 00:58] LABS: Bacteria 2+ /hpf (None Seen); Hyaline Cast 0-5 SEEN /lpf (0-5); Red Blood Cells-Urine 0-5 SEEN /hpf (0-5); Squamous Epithelial Cells - UA 5-10 SEEN /hpf (5-10); White Blood Cells 0-5 SEEN /hpf (0-5)
[2023-12-07 01:49] VITALS: BP 103/53; PULSE 45; RESP 16; O2SAT 97
[2023-12-07] MEDS: 0.9% Normal Saline (1000mL) 1,000 ML 150 ML IV (01:49)
[2023-12-07] MEDS: Ceftriaxone 1 GM/50 ML BAG IV (02:52)
[2023-12-07 04:00] VITALS: BP 109/54; PULSE 45; RESP 8; O2SAT 97
[2023-12-07 04:43] VITALS: BP 130/59; PULSE 82; RESP 16; TEMP 36.7; O2SAT 95
== END 2023-12-07 04:45 | disposition home or self-care (01) ==
PROVIDERS: Emergency Provider Emergency Medicine; PCP Internal Medicine; Visit Provider Emergency Medicine
DX: M54.9 Dorsalgia, unspecified (principal); J44.9 Chronic obstructive pulmonary disease, unspecified; E11.9 Type 2 diabetes mellitus without complications; E03.9 Hypothyroidism, unspecified; Z79.899 Other long term (current) drug therapy; K21.9 Gastro-esophageal reflux disease without esophagitis; Z90.49 Acquired absence of other specified parts of digestive tract; F17.210 Nicotine dependence, cigarettes, uncomplicated; N39.0 Urinary tract infection, site not specified
CPT/HCPCS: 72193; 80048; 81001; 83605; 85025; 87040; 87070; 87075; 87077; 87086; 87088; 87186; 87205; 93005; 96361; 96365; 96366; 99284; J7030; Q9967; A4216

== ENCOUNTER 2023-12-13 13:00 | Outpatient (RCR) | payer MEDICARE, MEDICAID, SELFPAY ==
[2023-11-22 00:25] VITALS: BP 140/77; PULSE 87; RESP 18; TEMP 35.7
[2023-11-29 13:30] VITALS: BP 124/74; PULSE 91; RESP 18; TEMP 36.1
--- NOTE | 2023-11-29 13:44 | PCM.WC.PN ---
History of Present Illness Date of Service: 11/29/23 Chief Complaint: Sacral ulcer History of Wound: Patient is a 63 year old female who previously was a patient here and known to me, but had back surgery in early September 2022 at [facility] and then went to rehab at [place] after that. She had a aurelia replaced in her back. Before her surgery, she was not able to lie flat due to increased pain, so she spent most of her time in her wheelchair. Now since her surgery, she is in too much back pain to sit in her wheelchair. She presents today with an ulcer to her sacrum. She was in the ED on 12/10/22 for increased wound drainage and was treated with Keflex, which she has completed. She does have home health to assist with dressing changes. She has lost 100 lbs since last being here in early September. Wound care - Silver dressing changes daily. Wound culture 12/26/22 positive for Proteus mirabilis, Enterococcus faecalis, Streptococcus agalactiae, Anaerobic cocci and Bacteroides fragilis. She was treated with Augmentin. Wound culture from 01/23/23 was positive for MRSA and Morganella morganii. The MRSA was treated with Doxycycline. Wound culture 04/03/23 positive for Proteus mirabilis, Enterococcus faecalis, and Anaerobic cocci. She was treated with Augmentin. Wound culture from 07/03/23 positive for Proteus mirabilis and Enterococcus faecalis which was treated with Augmentin. Wound culture was done on 08/23/23. It was negative. She had CT Pelvis on 09/20/23. It showed evidence of tissue defect in the medial aspect of the right buttock abutting the distal sacrum. This most likely represents an ulcerated pressure ulcer. Normal urinary bladder. Normal visualized small intestine. Moderate amount of fecal material is seen in the colon. There is no pelvic fluid. There is no pelvic mass lesion or lymphadenopathy. There is diffuse atherosclerotic calcification of the pelvic arteries. Phleboliths are seen in the pelvis. Normal abdominal wall. Extensive metallic streak artifacts due to fusion with intrapedicular screw and aurelia fixation the lower lumbar spine. Today she denies fever. Her appetite is ok. Progress of Wound: Left sacral ulcer is stable. There continues to be undermining from 6-12 with the deepest portion being 4 cm. Objective Data Objective Data Vital Signs: Vital Signs Temp Pulse Resp BP 97 F L 91 18 124/74 H 11/29/23 13:30 11/29/23 13:30 11/29/23 13:30 11/29/23 13:30 Charges/Coding Procedures Integumentary [id number]: [id number] Shila musc/fascia 20 sq cm/< (ICD-10 - L89.154, Z98.1, G82.20, E11.9, R63.4, F17.200, Z86.14) Debridement Note Debridement Note Wound debrided: #14 Sacral area. Laterality: Not Applicable Wound Grade/Stage: IV. Type of Debridement: Excisional debridement Anesthesia Used: 5% Lidocaine Gel Depth: Down to and including healthy tissue, in the subcutaneous layer, to muscle and to bone (bone is palpable but not exposed.) Percentage of wound debrided: 100 Instrument Used: 5mm curette Tissue Removed: subcutaneous tissue, senescent cells, devitalized tissue and muscle. Severity: Fat Layer Exposed (muscle is exposed. bone is palpable but not exposed.) Amount of bleeding with debridement: Mild Bleeding Controlled with: Pressure and Compression and gauze Patient tolerated procedure: Patient tolerated procedure well Post-Debridement Measurements and Additional Note: Post-Debridement Measurements/Treatment - Nurse 1 - General Ulcer Assessment Start: 11/29/23 13:30 Freq: Status: Active Protocol: TAISHA Activity Type Activity Date Activity User E-sign Co-sign Detail Recorded Client Recorded Date Recorded By Document 11/29/23 13:30 Desktop 11/29/23 13:33 RB 11/29/23 13:30 - Today's Visit Information Type of service Follow-up Visit (Physician/RAIL ENGINEER ) Arrival Mode Wheelchair Transfer Assistance Manual Patient Identification Verified (Name & Yes ) Patient Requires Transmission-Based No Precautions Vital Signs Temperature (97.8 F-99.1 F) 97 F L Temperature Source Temporal Pulse Rate (60-100) 91 Pulse Location Monitor Respiratory Rate (12-18) 18 Respiratory rate source Observation Blood Pressure (90/60-120/80) 124/74 H Blood Pressure Mean (mm Hg) 90 Source Monitor Position Semi-Fowlers Blood Pressure Location Left Arm History Since Last Visit- (Skip if this is Patient's initial visit) Have you changed medications since your No last visit? Any new allergies or adverse reactions No Had a fall/change in ADL's that may No increase risk of falls Signs or symptoms of abuse and/or No neglect since last visit Have you been in the hospital since your No last visit? Has dressing in place as prescribed Yes Has compression in place as prescribed No Has offloadiing in place as prescribed Yes Experienced any changes in pain level or No management Pain Scale: 0-10 Numeric Is Patient Pain Free? No sacral -Description Aching -Intensity 7 -Duration (hours) Chronic -Pain Aggravating Factors Sitting -Alleviating Factors/Interventions Medication -Effectiveness of Alleviating Factor/ Moderately Intervention effective WC - Nurse 1 - General Ulcer Measurement Start: 11/29/23 13:30 Freq: Status: Active Protocol: Activity Type Activity Date Activity User E-sign Co-sign Detail Recorded Client Recorded Date Recorded By Document 11/29/23 13:30 RB Desktop 11/29/23 13:33 RB 11/29/23 13:30 Wound Center Nurse 1 #14- L SACRAL -Combined with other wound No -Current Size (cm) - Length 2.8 -Current Size (cm) - Width 1.1 -Current Size (cm) - Depth 0.4 -Total Square Cm 3.08 -Photo Taken Yes -Tunneling No -Undermining/Tunneling Yes -Undermining/Tunneling Starts (O'clock 7 ) -Undermining/Tunneling Ends (O'clock) 11 -Maximum Distance (cm) 3 -Circular Undermining No -Exudate Amt Large -Exudate Type Serosanguineous -Wound Margin Thickened & Rolled Under -Granulation Amt Medium (34-66%) -Granulation Quality [place] -Slough/Fibrin Yes -Necrosis Amt Medium (34-66%) -Necrotic Tissue Type Adherent Slough -Structure Exposed N/A -Texture (Vivi-wound Skin Appearance) Assessed -Moisture (Vivi-wound Skin Appearance) Assessed -Color (Vivi-wound Skin Appearance) Erythema -Temperature (Vivi-wound Skin No Abnormality Appearance) (Pt Warm) -Tenderness on Palpation (Vivi-wound No Skin Appearance) -Ulcer Cleansing Wound Cleanser -Foul Odor after Cleansing No -Anesthetic Used 5% Lidocaine Gel WC - Nurse 2 - General Ulcer CM Notes Start: 11/29/23 13:30 Freq: Status: Active Protocol: Activity Type Activity Date Activity User E-sign Co-sign Detail Recorded Client Recorded Date Recorded By Document 11/29/23 13:35 GM Desktop 11/29/23 13:39 11/29/23 13:35 Wound Center Nurse 2 -Time 13:36 -Correct Patient Yes -Correct Side, Site, Position Yes -Correct Procedure Yes -Procedure Performed Yes -Type of Procedure Debridement -Clinical Debridement Muscle / Fascia -Tissue Removed Muscle -Post Debridement (cm) - Length 3.0 -Post Debridement (cm) - Width 2.0 -Post Debridement (cm) - Depth 0.7 -Total Square (Post) (cm) 6.00 -Area of Debridement (cm) - Length 3.0 -Area of Debridement (cm) - Width 2.0 -Total Square (Area) (cm) 6.00 -Tunneling No -Undermining/Tunneling Yes -Undermining/Tunneling Starts (O'clock 6 ) -Undermining/Tunneling Ends (O'clock) 12 -Maximum Distance (cm) 4 -Circular Undermining No -Wound/Ulcer Outcome Not Healed -Ulcer Cleansing Rinsed/ Irrigated with Saline -Foul Odor after Cleansing No -Bioengineered Tissue No -Bleeding Controlled with Pressure -Treatment Response Procedure Tolerated Well -Debridement - Muscle / Fascia, 1st Yes 20sq cm Pain Scale: 0-10 Numeric Is Patient Pain Free? Yes Assessment/Plan Assessment/Plan (1) Pressure injury of sacral region, stage 4: CODE(S): L89.154 - Pressure ulcer of sacral region, stage 4 (2) S/P laminectomy with spinal fusion: CODE(S): Z98.1 - Arthrodesis status (3) Paraplegia: CODE(S): G82.20 - Paraplegia, unspecified (4) Diabetes mellitus: CODE(S): E11.9 - Type 2 diabetes mellitus without complications (5) Weight loss, non-intentional: CODE(S): R63.4 - Abnormal weight loss (6) Tobacco use disorder: CODE(S): F17.200 - Nicotine dependence, unspecified, uncomplicated (7) Personal history of Methicillin resistant Staphylococcus aureus infection: CODE(S): Z86.14 - Personal history of Methicillin resistant Staphylococcus aureus infection PLAN: Plan Wound care - Continue Aquacel-Ag covered by ABD daily. Wash area with soap and water at the time of the dressing changes. Wound culture 12/26/22 positive for Proteus miriabilis, Enterococcus faecalis, Streptococcus agalactiae, Anaerobic cocci and Bacteroides fragilis. She was treated with Augmentin. Wound culture from 01/23/23 was positive for MRSA and Morganella morganii. MRSA was treated with Doxycycline. Wound culture 04/03/23 positive for Proteus mirabilis, Enterococcus faecalis, and Anaerobic cocci. She is being treated with Augmentin. Wound culture from 07/03/23 positive for Proteus mirabilis and Enterococcus faecalis which was treated with Augmentin. A wound culture was obtained on 08/23/23. It was negative. CT Pelvis was done on 09/20/23. It showed evidence of tissue defect in the medial aspect of the right buttock abutting the distal sacrum. This most likely represents an ulcerated pressure ulcer. Normal urinary bladder. Normal visualized small intestine. Moderate amount of fecal material is seen in the colon. There is no pelvic fluid. There is no pelvic mass lesion or lymphadenopathy. There is diffuse atherosclerotic calcification of the pelvic arteries. Phleboliths are seen in the pelvis. Normal abdominal wall. Extensive metallic streak artifacts due to fusion with intrapedicular screw and aurelia fixation the lower lumbar spine. Patient has diabetes mellitus. Her last HgbA1c from 09/18/20 was 5.9. For elective surgeries such as a myocutaneous flap for closure of the sacral ulcer, the HgbA1c needs to be less than 8. Encouraged nutritional supplementation with protein to help the healing process. Will check Prealbumin at the time of the operative debridement. Will maximize her nutrition at the time of the myocutaneous flap as the Prealbumin should ideally be greater than 20. If the sacral ulcer looks good at the time of the myocutaneous flap, a Prealbumin of 16-20 would be acceptable. Also at the time of the operative debridement, a wound culture would be obtained. A positive culture will necessitate antibiotic therapy. If Pseudomonas or MRSA is present, then 6 weeks of antibiotics would be necessary followed by another operative debridement. Pseudomonas can destroy muscle flaps if not completely treated. Stressed importance of not sitting or laying on her pressure ulcer for long periods of time. Encouraged patient to stop smoking as it may have deleterious effects on wound healing. For the elective myocutaneous flap for closure of the sacral ulcer, it is strongly encouraged to stop smoking to optimize healing of the flap. Healing is slow. Undermining still present superiorly. An operative debridement will be beneficial. Will check soft tissue and bone for Pathology and Microbiology. Surgery will be done under general anesthesia with a surgical observation overnight stay in the hospital. A VAC will be placed during the hospital stay. Patient was informed of the risks and complications of the procedure including alternatives to surgery. These were discussed with the patient personally. Patient voices understanding and wishes to proceed. Potential risks and complications included but not inclusive of bleeding, infection, seroma, hematoma, bruising, swelling, wound breakdown, poor scarring, poor aesthetic outcome, intra operative cardiac or neurologic events, DVT, PE, and reaction to anesthesia. Will schedule the surgery in the next month or two based on availability. Follow up two weeks.
--- NOTE | 2023-12-06 14:52 | WC ---
HOME HEALTH CALLED. STATES PTS WOUND HAS ^ DRAINAGE, FOUL ODOR, PT IS MORE SLEEPY THAN USUAL AND SWEATY . PT W/ INCREASED WOUND PAIN. JONG BAEZ UPDATED. INSTRUCTED TO CALL PT W/ ORDERS TO GO TO ER. CALLED PT, SHES REFUSING, JUST WANTS ATB'S PRESCRIBED. JONG UPDATED ON THIS AND ALSO SPOKE BRIEFLY ON PHONE W/ PT. JONG ALSO INSTRUCTED PT TO GO TO ER. MSG LEFT W/ HOME HEALTH ALSO.
[2023-12-13 13:18] VITALS: BP 111/69; PULSE 90; RESP 18; TEMP 36.6
--- NOTE | 2023-12-13 16:31 | PCM.WC.PN ---
History of Present Illness Date of Service: 12/13/23 Chief Complaint: Sacral ulcer History of Wound: Patient is a 63 year old female who previously was a patient here and known to me, but had back surgery in early September 2022 at [facility] and then went to rehab at [place] after that. She had a aurelia replaced in her back. Before her surgery, she was not able to lie flat due to increased pain, so she spent most of her time in her wheelchair. Now since her surgery, she is in too much back pain to sit in her wheelchair. She presents today with an ulcer to her sacrum. She was in the ED on 12/10/22 for increased wound drainage and was treated with Keflex, which she has completed. She does have home health to assist with dressing changes. She has lost 100 lbs since last being here in early September. Wound care - Silver dressing changes daily. Wound culture 12/26/22 positive for Proteus mirabilis, Enterococcus faecalis, Streptococcus agalactiae, Anaerobic cocci and Bacteroides fragilis. She was treated with Augmentin. Wound culture from 01/23/23 was positive for MRSA and Morganella morganii. The MRSA was treated with Doxycycline. Wound culture 04/03/23 positive for Proteus mirabilis, Enterococcus faecalis, and Anaerobic cocci. She was treated with Augmentin. Wound culture from 07/03/23 positive for Proteus mirabilis and Enterococcus faecalis which was treated with Augmentin. Wound culture was done on 08/23/23. It was negative. She had CT Pelvis on 09/20/23. It showed evidence of tissue defect in the medial aspect of the right buttock abutting the distal sacrum. This most likely represents an ulcerated pressure ulcer. Normal urinary bladder. Normal visualized small intestine. Moderate amount of fecal material is seen in the colon. There is no pelvic fluid. There is no pelvic mass lesion or lymphadenopathy. There is diffuse atherosclerotic calcification of the pelvic arteries. Phleboliths are seen in the pelvis. Normal abdominal wall. Extensive metallic streak artifacts due to fusion with intrapedicular screw and aurelia fixation the lower lumbar spine. Today she denies fever. Her appetite is ok. Progress of Wound: Left sacral ulcer is stable. There continues to be undermining from 6-12 with the deepest portion being 4 cm. She states she was diagnosed with a UTI a few days ago and is now on antibiotics. Objective Data Objective Data Vital Signs: Vital Signs Temp Pulse Resp BP 98 F 90 18 111/69 12/13/23 13:18 12/13/23 13:18 12/13/23 13:18 12/13/23 13:18 Charges/Coding Procedures Integumentary [id number]: [id number] Shila musc/fascia 20 sq cm/< (ICD-10 - L89.154, Z98.1, G82.20, E11.9, R63.4, F17.200, Z86.14) Debridement Note Debridement Note Wound debrided: #14 Sacral area. Laterality: Not Applicable Wound Grade/Stage: IV. Type of Debridement: Excisional debridement Anesthesia Used: 5% Lidocaine Gel Depth: Down to and including healthy tissue, in the subcutaneous layer, to muscle and to bone (bone is palpable but not exposed.) Percentage of wound debrided: 100 Instrument Used: 5mm curette Tissue Removed: subcutaneous tissue, senescent cells, devitalized tissue and muscle. Severity: Fat Layer Exposed (muscle is exposed. bone is palpable but not exposed.) Amount of bleeding with debridement: Mild Bleeding Controlled with: Pressure and Compression and gauze Patient tolerated procedure: Patient tolerated procedure well Post-Debridement Measurements and Additional Note: Post-Debridement Measurements/Treatment - Nurse 1 - General Ulcer Assessment Start: 11/29/23 13:30 Freq: Status: Active Protocol: TAISHA Activity Type Activity Date Activity User E-sign Co-sign Detail Recorded Client Recorded Date Recorded By Document 11/29/23 13:30 Desktop 11/29/23 13:33 RB Document 12/13/23 13:18 wound center 12/13/23 13:20 RB 11/29/23 12/13/23 13:30 13:18 - Today's Visit Information Type of service Follow-up Visit Follow-up Visit (Physician/CLERICAL ORDER FILLER (Physician/CLERICAL ORDER FILLER ) ) Arrival Mode Wheelchair Wheelchair Transfer Assistance Manual Manual Patient Identification Verified (Name & Yes Yes ) Patient Requires Transmission-Based No No Precautions Vital Signs Temperature (97.8 F-99.1 F) 97 F L 98 F Temperature Source Temporal Temporal Pulse Rate (60-100) 91 90 Pulse Location Monitor Monitor Respiratory Rate (12-18) 18 18 Respiratory rate source Observation Observation Blood Pressure (90/60-120/80) 124/74 H 111/69 Blood Pressure Mean (mm Hg) 90 83 Source Monitor Monitor Position Semi-Fowlers Semi-Fowlers Blood Pressure Location Left Arm Left Arm History Since Last Visit- (Skip if this is Patient's initial visit) Have you changed medications since your No No last visit? Any new allergies or adverse reactions No No Had a fall/change in ADL's that may No No increase risk of falls Signs or symptoms of abuse and/or No No neglect since last visit Have you been in the hospital since your No No last visit? Has dressing in place as prescribed Yes Yes Has compression in place as prescribed No No Has offloadiing in place as prescribed Yes Yes Experienced any changes in pain level or No No management Pain Scale: 0-10 Numeric Is Patient Pain Free? No Yes sacral -Description Aching -Intensity 7 -Duration (hours) Chronic -Pain Aggravating Factors Sitting -Alleviating Factors/Interventions Medication -Effectiveness of Alleviating Factor/ Moderately Intervention effective WC - Nurse 1 - General Ulcer Measurement Start: 11/29/23 13:30 Freq: Status: Active Protocol: Activity Type Activity Date Activity User E-sign Co-sign Detail Recorded Client Recorded Date Recorded By Document 11/29/23 13:30 RB Desktop 11/29/23 13:33 RB Document 12/13/23 13:18 RB wound center 12/13/23 13:20 RB 11/29/23 12/13/23 13:30 13:18 Wound Center Nurse 1 #14- L SACRAL -Combined with other wound No No -Current Size (cm) - Length 2.8 2.4 -Current Size (cm) - Width 1.1 1.5 -Current Size (cm) - Depth 0.4 0.2 -Total Square Cm 3.08 3.60 -Photo Taken Yes -Tunneling No No -Undermining/Tunneling Yes No -Undermining/Tunneling Starts (O'clock 7 ) -Undermining/Tunneling Ends (O'clock) 11 -Maximum Distance (cm) 3 -Circular Undermining No No -Exudate Amt Large Medium -Exudate Type Serosanguineous Serosanguineous -Wound Margin Thickened & Thickened & Rolled Under Rolled Under -Granulation Amt Medium (34-66%) Medium (34-66%) -Granulation Quality [place] -Slough/Fibrin Yes Yes -Necrosis Amt Medium (34-66%) Medium (34-66%) -Necrotic Tissue Type Adherent Slough Adherent Slough -Structure Exposed N/A N/A -Texture (Vivi-wound Skin Appearance) Assessed Assessed, Scarring -Moisture (Vivi-wound Skin Appearance) Assessed Assessed -Color (Vivi-wound Skin Appearance) Erythema Assessed -Temperature (Vivi-wound Skin No Abnormality No Abnormality Appearance) (Pt Warm) (Pt Warm) -Tenderness on Palpation (Vivi-wound No No Skin Appearance) -Ulcer Cleansing Wound Cleanser Wound Cleanser -Foul Odor after Cleansing No No -Anesthetic Used 5% Lidocaine 4% Lidocaine Gel Solution WC - Nurse 2 - General Ulcer CM Notes Start: 11/29/23 13:30 Freq: Status: Active Protocol: Activity Type Activity Date Activity User E-sign Co-sign Detail Recorded Client Recorded Date Recorded By Document 11/29/23 13:35 GM Desktop 11/29/23 13:39 GM Document 12/13/23 13:33 wound center 12/13/23 13:36 GM 11/29/23 12/13/23 13:35 13:33 Wound Center Nurse 2 #14- L SACRAL -Time 13:36 13:34 -Correct Patient Yes Yes -Correct Side, Site, Position Yes Yes -Correct Procedure Yes Yes -Procedure Performed Yes Yes -Type of Procedure Debridement Debridement -Clinical Debridement Muscle / Fascia Muscle / Fascia -Tissue Removed Muscle Muscle -Post Debridement (cm) - Length 3.0 3.3 -Post Debridement (cm) - Width 2.0 1.8 -Post Debridement (cm) - Depth 0.7 0.3 -Total Square (Post) (cm) 6.00 5.94 -Area of Debridement (cm) - Length 3.0 3.3 -Area of Debridement (cm) - Width 2.0 1.8 -Total Square (Area) (cm) 6.00 5.94 -Tunneling No No -Undermining/Tunneling Yes Yes -Undermining/Tunneling Starts (O'clock 6 7 ) -Undermining/Tunneling Ends (O'clock) 12 12 -Maximum Distance (cm) 4 3.6 -Circular Undermining No No -Wound/Ulcer Outcome Not Healed Not Healed -Ulcer Cleansing Rinsed/ Rinsed/ Irrigated with Irrigated with Saline Saline -Foul Odor after Cleansing No No -Bioengineered Tissue No -Bleeding Controlled with Pressure Pressure -Treatment Response Procedure Procedure Tolerated Well Tolerated Well -Debridement - Muscle / Fascia, 1st Yes Yes 20sq cm Pain Scale: 0-10 Numeric Is Patient Pain Free? Yes Yes - Nurse 3 - General Ulcer D/C NN Start: 11/29/23 13:30 Freq: Status: Active Protocol: Activity Type Activity Date Activity User E-sign Co-sign Detail Recorded Client Recorded Date Recorded By Document 11/29/23 13:45 [facility] Desktop 11/29/23 13:46 [facility] Document 12/13/23 14:58 RB [id number] 12/13/23 14:58 RB 11/29/23 12/13/23 13:45 14:58 Wound Care Center Nurse 3 #14- L SACRAL -Ulcer Cleansing Rinsed/ Wound Cleanser Irrigated with Saline -Foul Odor after Cleansing No -Primary Dressing Applied Silvercel Silvercel -Other Dressing ABD ABD -Primary Dressing Covered/Secured with Secured with Secured with Tape Tape -Other Covering DRSG PER RB RN -Silvercel 1 1 Treatment Response Procedure Procedure Tolerated Well Tolerated Well Pain Scale: 0-10 Numeric Is Patient Pain Free? Yes Yes - Visit Discharge Discharge Condition Stable Stable Ambulatory Status Wheelchair Wheelchair Transportation Private Auto Private Auto Accompanied by RAMAKRISHNA PARKER IN [facility] Medication Reconcilliation completed & No provided to patient/care provider Clinical Summary of Care Provided Yes Facility Type Home Health Assessment/Plan Assessment/Plan (1) Pressure injury of sacral region, stage 4: CODE(S): L89.154 - Pressure ulcer of sacral region, stage 4 (2) S/P laminectomy with spinal fusion: CODE(S): Z98.1 - Arthrodesis status (3) Paraplegia: CODE(S): G82.20 - Paraplegia, unspecified (4) Diabetes mellitus: CODE(S): E11.9 - Type 2 diabetes mellitus without complications (5) Weight loss, non-intentional: CODE(S): R63.4 - Abnormal weight loss (6) Tobacco use disorder: CODE(S): F17.200 - Nicotine dependence, unspecified, uncomplicated (7) Personal history of Methicillin resistant Staphylococcus aureus infection: CODE(S): Z86.14 - Personal history of Methicillin resistant Staphylococcus aureus infection PLAN: Plan Wound care - Continue Aquacel-Ag covered by ABD daily. Wash area with soap and water at the time of the dressing changes. Wound culture 12/26/22 positive for Proteus miriabilis, Enterococcus faecalis, Streptococcus agalactiae, Anaerobic cocci and Bacteroides fragilis. She was treated with Augmentin. Wound culture from 01/23/23 was positive for MRSA and Morganella morganii. MRSA was treated with Doxycycline. Wound culture 04/03/23 positive for Proteus mirabilis, Enterococcus faecalis, and Anaerobic cocci. She is being treated with Augmentin. Wound culture from 07/03/23 positive for Proteus mirabilis and Enterococcus faecalis which was treated with Augmentin. A wound culture was obtained on 08/23/23. It was negative. CT Pelvis was done on 09/20/23. It showed evidence of tissue defect in the medial aspect of the right buttock abutting the distal sacrum. This most likely represents an ulcerated pressure ulcer. Normal urinary bladder. Normal visualized small intestine. Moderate amount of fecal material is seen in the colon. There is no pelvic fluid. There is no pelvic mass lesion or lymphadenopathy. There is diffuse atherosclerotic calcification of the pelvic arteries. Phleboliths are seen in the pelvis. Normal abdominal wall. Extensive metallic streak artifacts due to fusion with intrapedicular screw and aurelia fixation the lower lumbar spine. Patient has diabetes mellitus. Her last HgbA1c from 09/18/20 was 5.9. For elective surgeries such as a myocutaneous flap for closure of the sacral ulcer, the HgbA1c needs to be less than 8. Encouraged nutritional supplementation with protein to help the healing process. Will check Prealbumin at the time of the operative debridement. Will maximize her nutrition at the time of the myocutaneous flap as the Prealbumin should ideally be greater than 20. If the sacral ulcer looks good at the time of the myocutaneous flap, a Prealbumin of 16-20 would be acceptable. Also at the time of the operative debridement, a wound culture would be obtained. A positive culture will necessitate antibiotic therapy. If Pseudomonas or MRSA is present, then 6 weeks of antibiotics would be necessary followed by another operative debridement. Pseudomonas can destroy muscle flaps if not completely treated. Stressed importance of not sitting or laying on her pressure ulcer for long periods of time. Encouraged patient to stop smoking as it may have deleterious effects on wound healing. For the elective myocutaneous flap for closure of the sacral ulcer, it is strongly encouraged to stop smoking to optimize healing of the flap. Healing is slow. Undermining still present superiorly. An operative debridement is scheduled for December 31. Will check soft tissue and bone for Pathology and Microbiology. Surgery will be done under general anesthesia with a surgical observation overnight stay in the hospital. A VAC will be placed during the hospital stay. Patient was informed of the risks and complications of the procedure including alternatives to surgery. These were discussed with the patient personally. Patient voices understanding and wishes to proceed. Potential risks and complications included but not inclusive of bleeding, infection, seroma, hematoma, bruising, swelling, wound breakdown, poor scarring, poor aesthetic outcome, intra operative cardiac or neurologic events, DVT, PE, and reaction to anesthesia. Follow up two weeks.
== END 2023-12-22 23:59 | disposition home or self-care (01) ==
LOC: WC 13:00
PROVIDERS: PCP Internal Medicine; Referring Provider Obstetrics & Gynecology; Visit Provider Surgery
DX: L89.154 Pressure ulcer of sacral region, stage 4 (principal); G82.20 Paraplegia, unspecified; E11.9 Type 2 diabetes mellitus without complications; N39.0 Urinary tract infection, site not specified; F17.200 Nicotine dependence, unspecified, uncomplicated; Z98.1 Arthrodesis status; Z86.14 Personal history of Methicillin resistant Staphylococcus aureus infection; Z79.899 Other long term (current) drug therapy
CPT/HCPCS: 11043

== ENCOUNTER 2024-01-01 10:14 | Observation (INO) | payer MEDICARE, MEDICAID, SELFPAY ==
[2024-01-01] VITALS (10 sets, daily range): BP systolic 124–177; BP diastolic 66–94; PULSE 59–80; RESP 16–18; TEMP 36.2–37.2; O2SAT 99–100; BMI 24.2
[2024-01-01] MEDS: Lactated Ringers 1,000 ML 15 ML IV (06:43)
[2024-01-01] MEDS: Vancomycin IV 1,000 MG/200 ML BAG 200 MG IV ×2 (06:43→11:31)
[2024-01-01] MEDS: Lidocaine 1% /Epi 1:100 (50ml) 50 ML VIAL (07:10)
--- NOTE | 2024-01-01 07:30 | PRES_PTH ---
PATIENT: CONRADO RAMAN LOC: [facility] U#:[id number] AGE/SX: 63/F ROOM: [facility]314 RE01/01/[address]: Dr. Costa Hodge MD : 1960 BED: 1 DIS: 01/02/2024 SPEC #: [id number] RECD: 01/01/24 09:41 STATUS: KRYSTLE RECassy #: [id number] ESA: 01/01/24 07:[address]: Costa Hodge DEPT: SURGICAL PATHOLOGY RECD BY: Trupti Salazar ENTERED: 01/01/24 11:39 SP TYPE: PRESS SORE OTHR DR: Dr. Kevin Bah MD Tissues: A - Ischium, NOS B - Ischium, NOS Procedures: Decalcification bone/plaque Surgery Specimen Level IV HEADER OPERATION: Excision sacral pressure sore with partial ostectomy PRE-OP DIAGNOSIS: Pressure injury of sacral region, stage 4 TISSUE SUBMITTED: A- Bone sacral ulcer, B- Soft tissue sacral ulcer MICROSCOPIC DIAGNOSIS A. Bone of sacral ulcer region, biopsy: Consistent with chronic osteomyelitis. B. Skin and soft tissue of sacral region, biopsy: Ulceration with associated acute and chronic inflammation and granulation. / 01/04/2024 MICROSCOPIC DESCRIPTION Slides are reviewed. GROSS DESCRIPTION A. Received in fixative is one container labeled with the patient's name and designated Bone sacral ulcer. The specimen consists of multiple pieces of bone measuring in aggregate 2.5 x 2.0 x 0.3cm. The entire specimen is submitted in one cassette after decalcification. B. Received in fixative is one container labeled with the patient's name and designated Soft tissue sacral ulcer. The specimen consists of a round piece of crowe-brown skin measuring 5.8 x 6.0cm and up to 0.6cm in thickness. The skin surface show a focal area of ulceration. Focal area also shows crowe-white depigmentation. Radiator Core Tester sections are submitted in two cassettes. / 01/01/2024 TC:2 CPT:[id number]
[2024-01-01] MEDS: levoFLOXacin IV 500 MG/100 ML BAG 100 MG IV (08:15)
--- NOTE | 2024-01-01 09:16 | PCM.OPRPT ---
Problems Associated Problem List Diagnoses (1) Pressure injury of sacral region, stage 4: (2) Paraplegia: (3) Personal history of Methicillin resistant Staphylococcus aureus infection: (4) Diabetes mellitus: (5) Smoker: (6) Weight loss: (7) S/P laminectomy with spinal fusion: Report of Operation Date of Procedure: 01/01/24 Pre-Operative Diagnosis: 1. Sacral pressure sore, Stage IV. 2. Paraplegia. 3. History of spinal fusion with hardware placement. 4. History of MRSA. 5. Diabetes mellitus, diet controlled. 6. Recent weight loss. 7. Smoker. Post-Operative Diagnosis: Same. Surgery/Procedure Performed:: Excision sacral pressure sore, Stage IV, with partial ostectomy for osteomyelitis. Description of Surgical Findings:: Patient is a 63 year old female who previously was a patient here and known to me, but had back surgery in early September 2022 at [facility] and then went to rehab at [place] after that. She had a aurelia replaced in her back. Before her surgery, she was not able to lie flat due to increased pain, so she spent most of her time in her wheelchair. Now since her surgery, she is in too much back pain to sit in her wheelchair. She presents today with an ulcer to her sacrum. She was in the ED on 12/10/22 for increased wound drainage and was treated with Keflex, which she has completed. She does have home health to assist with dressing changes. She has lost 100 lbs since September,. Since coming to the Wound Center in December,, she has had multiple cultures done showing multiple organisms (Proteus mirabilis, Enterococcus faecalis, Streptococcus agalactiae, MRSA, Morganella morganii, Anaerobic cocci, and Bacteroides fragilis). She has been treated with Augmentin and Doxycycline. CT Pelvis was done on 12/07/23. It showed subcutaneous haziness and skin thickening overlying the lower sacrum and coccyx to the right of midline, consistent with cellulitis. Solitary bubble of air within this subcutaneous haziness due to soft tissue infection versus recent intervention. No lytic lesion of the sacrum or coccyx is seen to indicate acute osteomyelitis. Previous lower lumbar fusion. Abnormal widening of the L3/4 disc space without surrounding soft tissue swelling, suggesting previous osteomyelitis/discitis at this level. Patient was informed of the risks and complications of the procedure including alternatives to surgery. These were discussed with the patient personally. Patient voices understanding and wishes to proceed. Potential risks and complications included but not inclusive of bleeding, infection, hematoma, bruising, swelling, loss of sensation to skin, poor scarring, poor aesthetic outcome, intra operative cardiac or neurologic events, DVT, PE, and reaction to anesthesia. Size of sacral wound - 8 x 6 x 1 cm. Surgeon: Costa Hodge MD accounts receivable supervisor: None Type of Anesthesia: General Anesthesiologist: Jordy Ware MD and Karla Juan CRNA Specimen's removed: 1. Sacral pressure sore soft tissue to Pathology and Microbiology. 2. Sacral pressure sore bone to Pathology and Microbiology. Drains: None. Estimated Blood Loss (mL): 150. Description of Procedure: Patient was taken to OR in supine position and was placed under general anesthesia. She was then placed in the prone position. The sacral pressure sore was prepped and draped in the usual fashion. SCD's were placed for DVT prophylaxis. Perioperative antibiotics were given intravenously. Using xylocaine with epinephrine, the sacral pressure sore was infiltrated. After waiting 5 minutes for the anesthetic to take effect, I made a circular incision around the pressure sore. There was some undermining to the left that was excised as well. Dissection carried down through the subcutaneous tissue and muscle extending to the bone. Using rongeurs, a partial ostectomy was done as I obtained bone from several areas for a airport representative sample. A rasp was used to smooth out the bony edges. Half the soft tissue and half the bone was sent to Pathology for analysis to rule out carcinoma and to evaluate for osteomyelitis. Half the soft tissue and half the bone was sent to Microbiology for culture. A positive culture will necessitate antibiotic therapy. Hemostasis was obtained with electrocautery. The ulcer was irrigated with saline. No exposed hardware was seen. The size of the sacral wound after excision of the pressure sore with partial ostectomy for osteomyelitis was 8 x 6 x 1 cm or 48 cm2. The wound was dressed with Mepitel nonadhesive dressing followed by Kerlix gauze with Betadine. This was followed with a dry Kerlix gauze and ABD pads and a compression tape dressing. Patient tolerated the procedure well and was sent to PACU in satisfactory condition. Patient will be sent upstairs for continued postop care. The vac will be placed tomorrow. After discharge followup at the wound center. Grafts/Implants Used: None. Procedure Start Time: 08:40 Procedure Stop Time: 09:18 Complications None. Admit VTE Documentation VTE Present on Admission: No VTE Mechan Device Prophylaxis: SCD's VTE Pharm Prophylaxis ordered?: Yes Addendum Addendum: Surgery Charges CPT - 70610 ICD-10 - L89.154, G82.20, Z98.1, Z86.14, E11.9, R63.4, F17.200
--- NOTE | 2024-01-01 10:08 | HP.PCM_ITS ---
History and Physical Date of Admission: 01/01/24 HISTORY OF PRESENT ILLNESS Patient is a 63 year old female who previously was a patient here and known to me, but had back surgery in early September 2022 at [facility] and then went to rehab at [facility] after that. She had a aurelia replaced in her back. Before her surgery, she was not able to lie flat due to increased pain, so she spent most of her time in her wheelchair. Now since her surgery, she is in too much back pain to sit in her wheelchair. She presents today with an ulcer to her sacrum. She was in the ED on 12/10/22 for increased wound drainage and was treated with Keflex, which she has completed. She does have home health to assist with dressing changes. She has lost 100 lbs since September,. Since coming to the [facility] in December,, she has had multiple cultures done showing multiple organisms (Proteus mirabilis, Enterococcus faecalis, Streptococcus agalactiae, MRSA, Morganella morganii, Anaerobic cocci, and Bacteroides fragilis). She has been treated with Augmentin and Doxycycline. CT Pelvis was done on 12/07/23. It showed subcutaneous haziness and skin thickening overlying the lower sacrum and coccyx to the right of midline, consistent with cellulitis. Solitary bubble of air within this subcutaneous haziness due to soft tissue infection versus recent intervention. No lytic lesion of the sacrum or coccyx is seen to indicate acute osteomyelitis. Previous lower lumbar fusion. Abnormal widening of the L3/4 disc space without surrounding soft tissue swelling, suggesting previous osteomyelitis/discitis at this level. 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, lumbar region Paraplegia Positive colorectal cancer screening using Cologuard test Primary generalized (osteo)arthritis Spinal stenosis, lumbar region without neurogenic claudication Weight loss Witnessed seizure-like activity PAST SURGICAL HISTORY H/O dilation and curettage H/O gastric bypass History of bilateral salpingo-oophorectomy History of cholecystectomy Hydradenitis S/P arthroscopic knee surgery S/P lumbar spine operation s/p nerve spine surgery s/p upper back surgery skin graft MEDICATIONS ivpevclnsyzm-acvvszsk-rlwlxn tablet (Cerovite Senior) 1 tab PO DAILY supplement 02/26/18 [History Last Taken 09/23/20] levothyroxine 150 mcg tablet 150 mcg PO DAILY thyroid 09/17/20 [History Last Taken 09/24/20] pantoprazole 40 mg tablet,delayed release 40 mg PO BID PRN stomach 09/17/20 [History Last Taken 09/24/20] acetaminophen 500 mg tablet 500 mg PO Q6H PRN Pain 1-10 Or Fever 10/08/20 [History Last Taken Unknown] albuterol sulfate 90 mcg/actuation aerosol inhaler 2 puff inhalation Q4H PRN PRN Sob &/Or Wheezing 10/08/20 [History Last Taken Unknown] betamethasone valerate 0.1 % topical cream 1 applic topical BID PRN skin irritation #15 grams 01/15/21 [Rx Last Taken Unknown] cetirizine 10 mg tablet 10 mg PO DAILY #30 tabs 01/15/21 [Rx Last Taken Unknown] hydrocolloid dressing 4 X 4 (DuoDERM CGF Adhesive Border Dressing) #5 ea 09/07/21 [Rx Last Taken Unknown] biotin 1 mg tablet 1 mg PO DAILY SUPPLEMENT 05/17/22 [History Last Taken Unknown] calcium citrate 250 mg PO DAILY SUPPLEMENT 05/17/22 [History Last Taken Unknown] cholecalciferol (vitamin D3) 25 mcg (1,000 unit) capsule 25 mcg PO DAILY SUPPLEMENT 05/17/22 [History Last Taken Unknown] cyanocobalamin (vitamin B-12) 1,000 mcg tablet 1,000 mcg PO DAILY SUPPLEMENT 05/17/22 [History Last Taken Unknown] ferrous sulfate 325 mg (65 mg iron) tablet 325 mg PO DAILY SUPPLEMENT 05/17/22 [History Last Taken Unknown] fluticasone propionate 50 mcg/actuation nasal spray,suspension 2 spray intranasal DAILY PRN ALLERGIES 05/17/22 [History Last Taken Unknown] mupirocin 2 % topical ointment 1 applic topical DAILY PRN Wound Care 05/17/22 [History Last Taken Unknown] gabapentin 300 mg capsule 300 mg PO BID 30 days #60 caps 05/19/22 [Rx Last Taken Unknown] dextran 70-hypromellose 0.1 %-0.3 % eye drops (Artificial Tears (dextran 70- hypromellose)) 1 drp ophthalmic (eye) TID 05/25/22 [History Last Taken Unknown] ipratropium 20 mcg-albuterol 100 mcg/actuation mist for inhalation (Combivent Respimat) 1 puff inhalation Q6H PRN copd 05/25/22 [History Last Taken Unknown] nystatin 100,000 unit/gram topical powder 1 applic topical BID 10 days #30 grams 07/08/22 [Rx Last Taken Unknown] sennosides 8.6 mg tablet (Senna Lax) 8.6 mg PO .QOD STOOL 08/25/22 [History Last Taken Unknown] ammonium lactate 5 % lotion (Lac-Hydrin Five) 1 applic topical BID 30 days #226 grams 09/05/22 [Rx Last Taken Unknown] lidocaine 5 % topical ointment 1 applic topical TID PRN pain #30 grams 10/10/22 [Rx Last Taken Unknown] valacyclovir 500 mg tablet (Valtrex) 500 mg PO DAILY Check with primary doctor #30 tabs 10/10/22 [Rx Last Taken Unknown] lorazepam 0.5 mg tablet 0.5 mg PO DAILY PRN Anxiety 12/01/22 [History Last Taken Unknown] methadone 5 mg tablet 5 mg PO BID 12/01/22 [History Last Taken Unknown] naloxone 4 mg/actuation nasal spray (Narcan) 1 spray intranasal Q2M 12/01/22 [History Last Taken Unknown] oxycodone-acetaminophen 10 mg-325 mg tablet (Percocet) 1 tab PO Q4H PRN Pain 12/01/22 [History Last Taken Unknown] cephalexin 500 mg capsule 500 mg PO Q6 #40 CAPSULES 12/10/22 [Rx Last Taken Unknown] amoxicillin 875 mg-potassium clavulanate 125 mg tablet 1 tab PO BID 14 days #28 tabs 12/29/22 [Rx Last Taken Unknown] FAMILY HISTORY Father -Diabetes, Hypertension, Myocardial infarction, Alcoholism Brother - Myocardial infarction, Alcoholism Mother - CVA (cerebral vascular accident) SOCIAL HISTORY Smoking Status: Current every day smoker tobacco type: cigarettes alcohol intake: never substance use type: does not use REVIEW OF SYSTEMS General - Denies fever. Has fatigue, and weight loss (100 lbs in past year), and history of MRSA. Eyes - Denies cataracts and glaucoma. ENT - Denies nasal congestion and sore throat. Endocrine - Denies excessive thirst and urination. Has diabetes mellitus, diet controlled. Skin - Denies suspicious lesions and skin cancer. Has sacral pressure sore, Stage IV. Musculoskeletal - Denies joint pain, joint stiffness, weakness of muscles and joints, back pain, and arthritis. History of laminectomy with spinal fusion and placement hardware. Neuro - Denies headaches. Has paraplegia since back surgery. Cardiovascular - Denies chest pain and shortness of breath with exertion. Has fatigue. Psych - Has anxiety and depression. Respiratory - Denies chronic cough and shortness of breath. Patient is a smoker. Gastrointestinal - Denies nausea, vomiting, diarrhea, and constipation. Hematologic - Denies abnormal bruising and bleeding. Genitourinary - Denies hematuria and urinary frequency. PHYSICAL EXAMINATION General - Alert and Oriented. HEENT - PERRL. EOMI. Throat is clear. Neck - Supple and nontender. No cervical adenopathy. Lungs - Clear to auscultation. Heart - Regular rate and rhythm. Abdomen - Soft and nondistended. Extremities - Has lower extremity paraplegia. Lower back and sacral area - Has a sacral pressure sore, Stage IV. Bone is palpable but not exposed. There is some undermining to the left, about 3 cm. The size of the pressure sore is 6 x 2 cm. Mild tenderness to palpation. Neuro - CN II-XII grossly intact. Psych - Normal mood and affect. ASSESSMENT (1) Pressure ulcer of sacral region, stage 4. (2) Paraplegia. (3) S/P laminectomy with spinal fusion and hardware placement. (4) Personal history of Methicillin resistant Staphylococcus aureus infection. (5) Diabetes mellitus diet controlled. (6) Abnormal weight loss, 100 lbs in past year. (7) Smoker. PLAN She is currently using Silver dressing changes. Wound cultures since December, have shown Proteus mirabilis, Enterococcus faecalis, Streptococcus agalactiae, MRSA, Morganella morganii, Anaerobic cocci, and Bacteroides fragilis which have responded to Augmentin and Doxycycline. CT Pelvis was done on 12/07/23. It showed subcutaneous haziness and skin thickening overlying the lower sacrum and coccyx to the right of midline, consistent with cellulitis. Solitary bubble of air within this subcutaneous haziness due to soft tissue infection versus recent intervention. No lytic lesion of the sacrum or coccyx is seen to indicate acute osteomyelitis. Previous lower lumbar fusion. Abnormal widening of the L3/4 disc space without surrounding soft tissue swelling, suggesting previous osteomyelitis/discitis at this level. Patient has diabetes mellitus. Her last HgbA1c from 12/27/23 was 5.0. For elective surgeries such as a myocutaneous flap for closure of the sacral ulcer, the HgbA1c needs to be less than 8. Encouraged nutritional supplementation with protein to help the healing process. Will check Prealbumin at the time of the operative debridement. Will maximize her nutrition at the time of the myocutaneous flap as the Prealbumin should ideally be greater than 20. If the sacral ulcer looks good at the time of the myocutaneous flap, a Prealbumin of 16-20 would be acceptable. Also at the time of the operative debridement, a wound culture would be obtained. A positive culture will necessitate antibiotic therapy. If Pseudomonas or MRSA is present, then 6 weeks of antibiotics would be necessary followed by another operative debridement. Pseudomonas can destroy muscle flaps if not completely treated. Stressed importance of not sitting or laying on her pressure ulcer for long periods of time. Encouraged patient to stop smoking as it may have deleterious effects on wound healing. For the elective myocutaneous flap for closure of the sacral ulcer, it is strongly encouraged to stop smoking to optimize healing of the flap. At present, the healing is slow. There is undermining laterally. Recommend operative intervention with excision of her sacral pressure sore and partial ostectomy for osteomyelitis. Will check soft tissue and bone for Pathology and Microbiology. A positive culture will necessitate antibiotic therapy. Surgery will be done under general anesthesia with a surgical observation overnight stay in the hospital. A VAC will be placed during the hospital stay. Patient was informed of the risks and complications of the procedure including alternatives to surgery. These were discussed with the patient personally. Patient voices understanding and wishes to proceed. Potential risks and complications included but not inclusive of bleeding, infection, hematoma, bruising, swelling, poor scarring, poor aesthetic outcome, intra operative cardiac or neurologic events, DVT, PE, and reaction to anesthesia. Encouraged patient to stop smoking as it may have deleterious effects on wound healing.
[2024-01-01] MEDS: oxyCODONE 5 MG Tablet 10 MG PO ×4 (11:31→23:05)
[2024-01-01 11:42] LABS: Creatinine, Serum 0.93 mg/dL (0.55-1.02); EST Glomerular Filtration Rate 65 mL/min (>60); Est Glom Filt Rate - Afr Amer 79 mL/min (>60); Estimated Creatinine Clearance 58.72 ml/min
[2024-01-01 11:53] LABS: Bedside Glucose 105 mg/dL (74-106)
--- NOTE | 2024-01-01 12:37 | PCM.RX.CS ---
Consult Antibiotic Management Pharmacy has been consulted to manage selected antibiotic: Vancomycin Type of Intervention Type of Consult: New start Suspected Infection Suspected Infection: Skin/Soft tissue Prior Doses of Antibiotics Prior Doses of Antibiotics Received/Current Regimen: Vancomycin 1000 mg IV x 1 given 01/01/24 @ 1131, patient is also on levaquin Labs Labs: Creatinine 0.93 mg/dL (0.55-1.02) 01/01/24 11:12 Est GFR (MDRD) Af Amer 79 mL/min (>60) 01/01/24 11:12 Est GFR (MDRD) Non-Af 65 mL/min (>60) 01/01/24 11:12 Dosing Weight Weight used for dosin kg Estimated Creatinine Clearance Estimated Creatinine Clearance: ~59 Goal Trough Goal Trough: 10-15 mcg/mL Pharmacy Plan for Drug Dosing Pharmacy Plan for Drug Dosing: Vancomycin 1000 mg IV x 1, followed by 500 mg IV Q12H Pharmacy Service will continue to monitor and adjust dosing as required. Follow-Up Labs Follow-Up Labs: Trough: Vancomycin Date/Time Labs Ordered Labs to be done on [date and time ordered]: 01/02/24 @ 1820
[2024-01-01] MEDS: Glycerin/Hypromellose/PEG400 15 ml Bottle 1 DRP EACH EYE (14:37)
--- NOTE | 2024-01-01 16:13 | CASEMGMT ---
Social Work- Pt has hand written directives in chart naming Adriane Flores and Fabiana Rabago as agents. KRISHAN Bear
[2024-01-01] MEDS: Juven (unflavored) Packet 1 PACKET PO (16:42)
[2024-01-01 17:01] LABS: Bedside Glucose 90 mg/dL (74-106)
[2024-01-01] MEDS: Acetaminophen 500 MG Tablet PO (20:09)
[2024-01-01] MEDS: Methadone 10 MG Tablet PO (20:09)
[2024-01-01] MEDS: Gabapentin 300 MG Capsule PO (20:10)
[2024-01-01] MEDS: Docusate Sodium 100 MG Capsule PO (20:11)
[2024-01-01] MEDS: LORazepam 0.5 MG Tablet PO (23:05)
[2024-01-01] MEDS: Vancomycin IV 500 MG/100 ML BAG 100 MG IV (23:08)
[2024-01-02] MEDS: oxyCODONE 5 MG Tablet 10 MG PO ×3 (03:10→10:01)
[2024-01-02] MEDS: Acetaminophen 500 MG Tablet PO ×2 (03:10→16:01)
[2024-01-02 03:16] VITALS: BP 130/88; PULSE 52; RESP 18; TEMP 36.7; O2SAT 99
[2024-01-02 06:01] LABS: Hematocrit 37.3 % (37-47); Hemoglobin 12.2 g/dL (12.0-15.0); Mean Corp Hgb Conc 32.7 g/dL (32-36); Mean Corpuscular Volume 91.9 fL (81-99); Mean Platelet Vol. 10.2 fl (6.2-12.0); Platelet Count 176 K/mm3 (150-450); RBC Distribution Width CV 15.1 % (11.6-14.6); RBC Distribution Width SD 50.5 fl (35.1-43.9); Red Blood Count 4.06 M/mm3 (4.2-5.4)
[2024-01-02] MEDS: Levothyroxine 175 MCG Tablet PO (06:17)
[2024-01-02 06:43] VITALS: BP 140/76; PULSE 68; RESP 18; TEMP 36.8; O2SAT 100
[2024-01-02] MEDS: Ferrous Sulfate 325 MG Tablet PO (07:41)
[2024-01-02] MEDS: Multivitamins,Ther W-Minerals Tablet 1 TABLET PO (07:41)
[2024-01-02] MEDS: Juven (unflavored) Packet 1 PACKET PO (07:41)
--- NOTE | 2024-01-02 08:48 | WOUNDNOTE ---
Home VAC approved. wound VAC was applied this am without difficulty.
--- NOTE | 2024-01-02 08:52 | WOUNDNOTE ---
wound photo: sacrum
[2024-01-02] MEDS: Gabapentin 300 MG Capsule PO (10:01)
[2024-01-02] MEDS: Magnesium Chloride 64 MG Delay Rel.Tablet 128 MG PO (10:02)
[2024-01-02] MEDS: LORazepam 0.5 MG Tablet PO (10:02)
[2024-01-02] MEDS: Methadone 10 MG Tablet PO (10:02)
[2024-01-02] MEDS: Acyclovir 200 MG Capsule 400 MG PO (10:03)
[2024-01-02] MEDS: Cyanocobalamin 500 MCG Tablet 1000 MCG PO (10:03)
[2024-01-02] MEDS: Loratadine 10 MG Tablet PO (10:03)
[2024-01-02] MEDS: Senna Tablet 1 TABLET PO (10:03)
[2024-01-02] MEDS: Enoxaparin 40 MG/0.4 ML Syringe SC (10:04)
[2024-01-02] MEDS: levoFLOXacin IV 500 MG/100 ML BAG 100 MG IV (10:04)
[2024-01-02] MEDS: Cholecalciferol (VIT D3) 25 MCG TABLET (1,000 UNITS) PO (10:04)
[2024-01-02] MEDS: Docusate Sodium 100 MG Capsule PO (10:04)
[2024-01-02] MEDS: Calcium Carbonate 500 MG Tablet 250 MG PO (10:05)
--- NOTE | 2024-01-02 10:48 | CASEMGMT ---
TODD CM into pt room, pt lying in bed in no distress. Pt states that she is active with [facility] for SN and she would like to resume services with them upon dc. Pt denies need for a list of other options of agencies. Pt states she has been paralyzed for 8 years and bedridden for a year. Pt has a case resolution specialist through [facility], Mariela Gutierres. Updated SW. Pt states she receives meals at home. Pt lives with her dtr who assists pt with meds, meals, etc. Pt receives transportation through her insurance company. Pt reports she has an electric w/c, hospital bed with what she thinks is a pressure reducing mattress. Pt receives aide services 6 days a week for 4 hours per day, 2 hours in the morning and 2 hours in the afternoon. Pt denies any homegoing needs. TC to [facility], spoke with Sharmaine, she is aware pt will dc today and wound vac was put on today. Order for resumption entered.
--- NOTE | 2024-01-02 11:06 | CASEMGMT ---
Met with patient to complete GO form. GO form explained to patient who voiced understanding and signed form. Original form placed in pt?s chart and copy provided to patient. Mica Fajardo, Discharge Planning Asst
[2024-01-02 12:00] VITALS: BP 141/85; PULSE 63; RESP 16; TEMP 37.2; O2SAT 100
[2024-01-02] MEDS: Vancomycin IV 500 MG/100 ML BAG 100 MG IV (12:22)
--- NOTE | 2024-01-02 13:47 | CASEMGMT ---
Addendum entered by Aliya Gibson 01/02/24 14:39: No response from NETWORK SECURITY OFFICER nor dc information entered. TC to Provide A Ride, changed time to approx 5:47p. They will call 15 min prior as previous. Removed RN CM phone number and gave floor number to be called. Updated pt nurse, special investigation unit investigator and pt of this information as well as NETWORK SECURITY OFFICER. Confirmation # for trip is [id number]. Original Note: TC to Provide A Ride, pt is set for transportation home a little after 3pm. They are aware that pt has her motorized wheelchair and this will be transported as well. Rep states this is not an issue. She states the emt driver will call 15 minutes prior to arriving and will wait for 5 minutes. Gave this RN CM phone number as well as floor phone number. Updated pt nurse and sent message to Dr. Hodge's NETWORK SECURITY OFFICER to confirm this will be enough time to get dc in.
--- NOTE | 2024-01-02 13:52 | CASEMGMT ---
Social Work SW did speak w/Rakesh Kong at [facility], let him know pt is here in the hospital. Pt's CM is Mariela Gutierres. SW left her a message letting her know pt is going home today, will fax over discharge instructions once completed. FAROOQ Johnson
--- NOTE | 2024-01-02 13:52 | WOUNDNOTE ---
Pt switched over to home VAC. reviewed alarms, how to change the canister, how to return VAC. etc. with patient. patient aware she needs to take dressing and canister to wound center visits. Pt denies further questions or concerns at this time. SW arranging transport to home via wheelchair van.
[2024-01-02 14:15] LABS: Anion Gap 1 (5-15); BUN 24 mg/dL (7-18); BUN/Creat Ratio 24.6 RATIO (10-20); Calcium,Total 9.2 mg/dL (8.5-10.1); Chloride 114 mmol/L (98-107); Creatinine, Serum 0.98 mg/dL (0.55-1.02); EST Glomerular Filtration Rate 61 mL/min (>60); Est Glom Filt Rate - Afr Amer 74 mL/min (>60); Estimated Creatinine Clearance 55.72 ml/min; Glucose 93 mg/dL (74-106); Potassium 4.3 mmol/L (3.5-5.1); Prealbumin 22.2 mg/dL (20.0-40.0); Sodium Level 140 mmol/L (136-145)
--- NOTE | 2024-01-02 15:35 | PCM.DC ---
Discharge Instructions Diet Discharge Diet: No restrictions (High protein diet) Activity Discharge Activity: Return to Normal Activity Dressing / Incision Call your doctor if your incision/area has: Continuous Slow Oozing, Sudden Increased Bleeding, Increased Pain/ Swelling, Increased Redness, Foul Smelling Discharge and Swelling at the incision site Call your doctor if you observe: Fever of 101 or Higher, Inability to urinate, Inability to have a bowel movement, Shortness of breath, Chest pain and Calf discomfort Additional Dressing/Incision Instructions:: Wound VAC dressing to be changed 3 times per week. VAC at 150 mmHg. Wash wound with soap and water at the time of dressing changes. She may remove the wound VAC before the change and shower if she feels comfortable doing that. Follow Up Care Please Follow Up With: Ayanna Jameson STRAND AND BINDER CONTROLLER, STRAND AND BINDER CONTROLLER-C When: At wound center as previously scheduled Test Results: Test results from this visit will be discussed in further detail at your follow-up appointment, if applicable. Discharge Plan Admission Admit Date/Time: 01/01/24 10:14 Attending Provider: Costa Hodge Primary Care Provider: Kevin Bah Discharge Orders/Prescriptions Prescriptions: New doxycycline hyclate 100 mg tablet 100 mg PO BID 14 Days Qty: 28 0RF levofloxacin 500 mg tablet 500 mg PO DAILY 14 Days Qty: 14 0RF Continued xlaozrywntzo-kvjigfaf-ntzulz [Cerovite Senior] tablet 1 tab PO DAILY betamethasone valerate 0.1 % cream 1 applic topical BID PRN (Reason: skin irritation) Qty: 15 0RF cetirizine 10 mg tablet 10 mg PO DAILY Qty: 30 0RF Artificial Tears([id number]) 0.1-0.3 % drops 1 drp ophthalmic (eye) TID Combivent Respimat 20-100 mcg/actuation mist 1 puff inhalation Q6H PRN (Reason: copd) methadone 5 mg tablet 10 mg PO BID oxycodone-acetaminophen [Percocet] 10-325 mg tablet 1 tab PO Q3H PRN (Reason: Pain) naloxone [Narcan] 4 mg/actuation spray,non-aerosol 1 spray intranasal Q2M Rx Instructions: spray 1 dose into ONE nostril; alternate nostrils w each dose until help arrives lorazepam 0.5 mg tablet 0.5 mg PO BID PRN (Reason: Anxiety) pantoprazole 40 MG tablet 40 mg PO BID PRN (Reason: stomach) acetaminophen 500 MG tablet 500 mg PO Q6H PRN (Reason: Pain 1-10 Or Fever) albuterol sulfate 1 INHALER inhaler 2 puff INHALATION Q4H PRN PRN (Reason: Sob &/Or Wheezing) ferrous sulfate 325 mg (65 mg iron) Tablet 325 mg PO DAILY mupirocin 2 % ointment 1 applic TOPICAL DAILY PRN (Reason: Wound Care) Patient Comments: apply to [facility]OUN[facility] -- DIRECTED -- FOR 10 DAYS cholecalciferol (vitamin D3) 25 mcg (1,000 unit) Capsule 25 mcg PO DAILY biotin 1 mg Tablet 1 mg PO DAILY calcium citrate 250 mg calcium Tablet 250 mg PO DAILY cyanocobalamin (vitamin B-12) 1,000 mcg Tablet 1,000 mcg PO DAILY gabapentin 300 mg capsule 300 mg PO BID 30 Days Qty: 60 0RF sennosides [Senna Lax] 8.6 mg tablet 8.6 mg PO .QOD Patient Comments: take 1 tablet by mouth once daily nystatin 100,000 unit/gram powder 1 applic topical BID 10 Days Qty: 30 1RF Rx Instructions: to effected area Lac-Hydrin Five 5 % lotion 1 applic topical BID 30 Days Qty: 226 1RF levothyroxine 175 mcg tablet 175 mcg PO DAILY magnesium glycinate 100 mg tablet 200 mg PO BID magnesium oxide 500 mg capsule 500 mg PO DAILY (DME) hydrocolloid dressing [DuoDERM CGF Border Dressing] 4 X 4 bandage See Rx Instructions .ROUTE .MEDSUPPLY Qty: 5 6RF Rx Instructions: As directed valacyclovir [Valtrex] 500 mg tablet 500 mg PO DAILY Qty: 30 5RF Rx Instructions: Script transferred from [facility] Garcia per Pt request. scopolamine base 1 mg over 3 days patch 3 day 1 patch transdermal Q3D PRN (Reason: nausea and vomiting) Qty: 10 2RF lidocaine 5 % ointment 1 applic topical TID PRN (Reason: pain) Qty: 30 3RF Referrals / Follow Up: Kevin Bah MD [Primary Care Provider] - Disposition Disposition (needs filled in before D/C Order can be placed): Home, Self Care
--- NOTE | 2024-01-02 15:43 | PCM.PN.SRG ---
Subjective Subjective Postop #1 Patient states that pain is well controlled. Objective Data Objective Data Vital Signs: Vital Signs Temp Pulse Resp BP Pulse Ox O2 Del Method 98.9 F 63 16 141/85 H 100 Room Air 01/02/24 12:00 01/02/24 12:00 01/02/24 12:00 01/02/24 12:00 01/02/24 12:00 01/02/24 12:00 Oxygen Delivery Method Room Air Weight: 149 lb 14.629 oz Body Mass Index (BMI) 24.2 Intake & Output: Intake and Output for Last 24 Hours 12/31/23 01/01/24 01/02/24 23:59 23:59 23:59 Intake Total 1100 / 1100 1384.25 / 1384.25 Output Total 1450 / 1450 800 / 800 Balance -350 / -350 584.25 / 584.25 Lab / Micro Data 01/02/24 05:51 01/02/24 05:51 Labs: Laboratory Results - last 24 hr 01/01/24 16:40: POC Glucose 90 01/02/24 05:51: WBC 6.0, RBC 4.06 L, Hgb 12.2, Hct 37.3, MCV 91.9, MCH 30.0, MCHC 32.7, RDW Std Deviation 50.5 H, RDW Coeff of Jarrod 15.1 H, Plt Count 176, MPV 10.2, Sodium 140, Potassium 4.3, Chloride 114 H, Carbon Dioxide 25.0, Anion Gap 1 L, BUN 24 H, Creatinine 0.98, Estim Creat Clear Calc 55.72, Est GFR (MDRD) Af Amer 74, Est GFR (MDRD) Non-Af 61, BUN/Creatinine Ratio 24.6 H, Glucose 93, Hemoglobin A1c 5.0, Calcium 9.2, Prealbumin 22.2 Micro: Microbiology 01/01/24 08:51 Tissue - Sacral Gram Stain - Final 01/01/24 08:51 Tissue - Sacral Wound Culture - Preliminary Mixed Gram Positive Organisms 01/01/24 08:51 Bone - Sacral Bone Gram Stain - Final 01/01/24 08:51 Bone - Sacral Bone Wound Culture - Preliminary No growth-Final to follow Physical Exam Const oriented x3 Resp normal respiratory effort Cardio regular rate GI soft to palpation and non-tender Extremity normal to inspection Skin Wound Narrative: Sacral ulcer is stable. No active bleeding. Wound VAC placed earlier today and patient is tolerating it well. Neuro oriented x3 Assessment & Plan Assessment/Plan (1) Pressure injury of sacral region, stage 4: (2) Weight loss: (3) Smoker: (4) History of methicillin resistant staphylococcus aureus (MRSA): PLAN: Plan Pain is well controlled. Her pain is managed by palliative care. Preliminary operative cultures show Mixed gram positive organisms. Will send her home on Levaquin and Doxycycline due to her MRSA history. Will re-evaluate when final cultures come back. Prealbumin is 22.2. Encouraged increased protein intake to help with wound healing Wound care will be wound VAC at 150mm Hg to be changed 3 times per week. She has home health to assist with wound VAC dressing changes. She has an appointment scheduled next week a the wound healing center where she will follow up with me. Charges/Coding Procedures Integumentary [id number]: [id number] Global Visit
--- NOTE | 2024-01-02 15:55 | CASEMGMT ---
Social Work SW faxed discharge instructions to Mariela Gutierres at [facility]. FAROOQ Johnson
--- NOTE | 2024-01-02 16:28 | PHA.DC_ITS ---
Pharmacy [facility] Pharmacy Service has performed discharge medication reconciliation and counseling for this patient. 1. DOXYCYCLINE 100MG PO BID X 14 DAYS 2. LEVOFLOXACIN 500MG PO DAILY X 14 DAYS The patient's discharge medication list was reviewed for discrepancies and discrepancies were resolved. The patient was counseled on the following discharge medications and changes in medications for homegoing were reviewed. The Reason for Use, instructions for use, and potential side effects were reviewed for all new medications. The patient's questions regarding all of their medications were answered. The patient was able to verbally demonstrate an understanding of their discharge medications. Medications at Discharge Home Medications dhknvobkjvde-hozmvein-eqmwkk tablet (Cerovite Senior) 1 tab PO DAILY supplement 02/26/18 pantoprazole 40 mg tablet,delayed release 40 mg PO BID PRN stomach 09/17/20 acetaminophen 500 mg tablet 500 mg PO Q6H PRN Pain 1-10 Or Fever 10/08/20 albuterol sulfate 90 mcg/actuation aerosol inhaler 2 puff inhalation Q4H PRN PRN Sob &/Or Wheezing 10/08/20 betamethasone valerate 0.1 % topical cream 1 applic topical BID PRN skin irritation #15 grams 01/15/21 cetirizine 10 mg tablet 10 mg PO DAILY #30 tabs 01/15/21 hydrocolloid dressing 4 X 4 (DuoDERM CGF Adhesive Border Dressing) #5 ea 09/07/21 biotin 1 mg tablet 1 mg PO DAILY SUPPLEMENT 05/17/22 calcium citrate 250 mg PO DAILY SUPPLEMENT 05/17/22 cholecalciferol (vitamin D3) 25 mcg (1,000 unit) capsule 25 mcg PO DAILY SUPPLEMENT 05/17/22 cyanocobalamin (vitamin B-12) 1,000 mcg tablet 1,000 mcg PO DAILY SUPPLEMENT 05/17/22 ferrous sulfate 325 mg (65 mg iron) tablet 325 mg PO DAILY SUPPLEMENT 05/17/22 mupirocin 2 % topical ointment 1 applic topical DAILY PRN Wound Care 05/17/22 gabapentin 300 mg capsule 300 mg PO BID 30 days #60 caps 05/19/22 dextran 70-hypromellose 0.1 %-0.3 % eye drops (Artificial Tears (dextran 70- hypromellose)) 1 drp ophthalmic (eye) TID 05/25/22 ipratropium 20 mcg-albuterol 100 mcg/actuation mist for inhalation (Combivent Respimat) 1 puff inhalation Q6H PRN copd 05/25/22 nystatin 100,000 unit/gram topical powder 1 applic topical BID 10 days #30 grams 07/08/22 sennosides 8.6 mg tablet (Senna Lax) 8.6 mg PO .QOD STOOL 08/25/22 ammonium lactate 5 % lotion (Lac-Hydrin Five) 1 applic topical BID 30 days #226 grams 09/05/22 lorazepam 0.5 mg tablet 0.5 mg PO BID PRN Anxiety 12/01/22 methadone 5 mg tablet 10 mg PO BID 12/01/22 naloxone 4 mg/actuation nasal spray (Narcan) 1 spray intranasal Q2M 12/01/22 oxycodone-acetaminophen 10 mg-325 mg tablet (Percocet) 1 tab PO Q3H PRN Pain 12/01/22 valacyclovir 500 mg tablet (Valtrex) 500 mg PO DAILY Check with primary doctor #30 tabs 05/12/23 scopolamine base 1 mg over 3 days transdermal patch 1 patch transdermal Q3D PRN nausea and vomiting #10 ea 05/16/23 lidocaine 5 % topical ointment 1 applic topical TID PRN pain #30 grams 07/12/23 levothyroxine 175 mcg tablet 175 mcg PO DAILY disorder of thyroid gland 12/26/23 magnesium glycinate 100 mg tablet 200 mg PO BID 12/26/23 magnesium oxide 500 mg capsule 500 mg PO DAILY 12/26/23 doxycycline hyclate 100 mg tablet 100 mg PO BID 14 days #28 tabs 01/02/24 levofloxacin 500 mg tablet 500 mg PO DAILY 14 days #14 tabs 01/02/24
[2024-01-03 13:56] LABS: Prealbumin 24.8 mg/dL (20.0-40.0)
--- NOTE | 2024-01-09 11:10 | CASEMGMT ---
TODD MEZA NOTE: Per charge authorizerZulema, arabella VM was received on [facility] phone line from [id number] re: an appt for pick-up scheduled for tomorrow. TODD MEZA called [facility] @ [phone] and spoke w/Princess, spiritual care coordinator. She was made aware pt was discharged last week and that pt will need to be contacted by [facility] re: further transportation appts, not the hospital. She states they will reach out to the patient. Rosa JACOBSN TODD MEZA
--- NOTE | 2024-01-18 11:50 | CASEMGMT ---
TC to Provide A Ride at [phone] to take the hospital floor phone number off of pt account. Per rep this was replaced with the pt phone number. The hospital was called with an automated recording yesterday stating the patient had a merchandise pickup/receiving associate scheduled. This was completed.
== END 2024-01-02 17:51 | disposition home or self-care (01) ==
LOC: MS3 10:14 → SDC 10:47 → MS3 10:47
PROVIDERS: Admitting Provider Surgery; PCP Internal Medicine; Referring Provider Internal Medicine; Visit Provider Surgery
PROC: (CPT 15937; principal; 2024-01-01 07:15)
DX: L89.154 Pressure ulcer of sacral region, stage 4 (principal); G82.20 Paraplegia, unspecified; M46.28 Osteomyelitis of vertebra, sacral and sacrococcygeal region; J44.9 Chronic obstructive pulmonary disease, unspecified; E11.9 Type 2 diabetes mellitus without complications; G89.29 Other chronic pain; F41.1 Generalized anxiety disorder; R63.4 Abnormal weight loss; Z98.1 Arthrodesis status; Z98.84 Bariatric surgery status; F17.210 Nicotine dependence, cigarettes, uncomplicated; Z79.899 Other long term (current) drug therapy
CPT/HCPCS: 15937; 36415; 80048; 82565; 82962; 83036; 84134; 85027; 87070; 87075; 87077; 87102; 87176; 87186; 87205; 87206; 88305; 88311; 94668; 96365; 96366; 96367; 96372; 99221; J7120; G0378; J2405

== ENCOUNTER 2024-01-17 13:15 | Outpatient (RCR) | payer MEDICARE, MEDICAID, SELFPAY ==
[2023-12-23 01:51] VITALS: BP 140/77; PULSE 87; RESP 18; TEMP 35.7
[2023-12-27 14:07] VITALS: BP 100/60; PULSE 93; RESP 18; TEMP 36.6
--- NOTE | 2023-12-27 15:51 | PCM.WC.PN ---
History of Present Illness Date of Service: 12/27/23 Chief Complaint: Sacral ulcer History of Wound: Patient is a 63 year old female who previously was a patient here and known to me, but had back surgery in early September 2022 at [facility] and then went to rehab at [place] after that. She had a aurelia replaced in her back. Before her surgery, she was not able to lie flat due to increased pain, so she spent most of her time in her wheelchair. Now since her surgery, she is in too much back pain to sit in her wheelchair. She presents today with an ulcer to her sacrum. She was in the ED on 12/10/22 for increased wound drainage and was treated with Keflex, which she has completed. She does have home health to assist with dressing changes. She has lost 100 lbs since last being here in early September. Wound care - Silver dressing changes daily. Wound culture 12/26/22 positive for Proteus mirabilis, Enterococcus faecalis, Streptococcus agalactiae, Anaerobic cocci and Bacteroides fragilis. She was treated with Augmentin. Wound culture from 01/23/23 was positive for MRSA and Morganella morganii. The MRSA was treated with Doxycycline. Wound culture 04/03/23 positive for Proteus mirabilis, Enterococcus faecalis, and Anaerobic cocci. She was treated with Augmentin. Wound culture from 07/03/23 positive for Proteus mirabilis and Enterococcus faecalis which was treated with Augmentin. Wound culture was done on 08/23/23. It was negative. She had CT Pelvis on 09/20/23. It showed evidence of tissue defect in the medial aspect of the right buttock abutting the distal sacrum. This most likely represents an ulcerated pressure ulcer. Normal urinary bladder. Normal visualized small intestine. Moderate amount of fecal material is seen in the colon. There is no pelvic fluid. There is no pelvic mass lesion or lymphadenopathy. There is diffuse atherosclerotic calcification of the pelvic arteries. Phleboliths are seen in the pelvis. Normal abdominal wall. Extensive metallic streak artifacts due to fusion with intrapedicular screw and aurelia fixation the lower lumbar spine. Today she denies fever. Her appetite is ok. Progress of Wound: Left sacral ulcer is stable. There continues to be undermining from 6-12. She is scheduled for operative debridement of this ulcer next week with Dr. Hodge. Objective Data Objective Data Vital Signs: Vital Signs Temp Pulse Resp BP O2 Del Method 98 F 93 18 100/60 Room Air 12/27/23 14:07 12/27/23 14:07 12/27/23 14:07 12/27/23 14:07 12/27/23 14:07 Oxygen Delivery Method Room Air Charges/Coding Procedures Integumentary 111xxx-113xx: 29395 Shila musc/fascia 20 sq cm/< (ICD-10 - L89.154, Z98.1, G82.20, E11.9, R63.4, F17.200, Z86.14) Debridement Note Debridement Note Wound debrided: #14 Sacral area. Laterality: Not Applicable Wound Grade/Stage: IV. Type of Debridement: Excisional debridement Anesthesia Used: 5% Lidocaine Gel Depth: Down to and including healthy tissue, in the subcutaneous layer, to muscle and to bone (bone is palpable but not exposed.) Percentage of wound debrided: 100 Instrument Used: 5mm curette Tissue Removed: subcutaneous tissue, senescent cells, devitalized tissue and muscle. Severity: Fat Layer Exposed (muscle is exposed. bone is palpable but not exposed.) Amount of bleeding with debridement: Mild Bleeding Controlled with: Pressure and Compression and gauze Patient tolerated procedure: Patient tolerated procedure well Post-Debridement Measurements and Additional Note: Post-Debridement Measurements/Treatment - Nurse 1 - General Ulcer Assessment Start: 12/27/23 14:05 Freq: Status: Active Protocol: ZION Activity Type Activity Date Activity User E-sign Co-sign Detail Recorded Client Recorded Date Recorded By Document 12/27/23 14:07 IN [email or web address] 12/27/23 14:17 IN 12/27/23 14:07 - Today's Visit Information Type of service Follow-up Visit (Physician/DIRECTOR OF ANALYTICAL DEVELOPMENT ) Arrival Mode Wheelchair Accompanied by self Patient Identification Verified (Name & Yes ) Safety Precautions Fall Prevention Vital Signs Temperature (97.8 F-99.1 F) 98 F Temperature Source Temporal Pulse Rate (60-100) 93 Pulse Location Monitor Respiratory Rate (12-18) 18 Respiratory rate source Observation Oxygen Delivery Method Room Air Blood Pressure (90/60-120/80) 100/60 Blood Pressure Mean (mm Hg) 73 Source Monitor Position Sitting Blood Pressure Location Left Arm History Since Last Visit- (Skip if this is Patient's initial visit) Has dressing in place as prescribed Yes Has compression in place as prescribed N/A Has offloadiing in place as prescribed N/A Experienced any changes in pain level or No management Left Footwear Regular Shoe Right Footwear Regular Shoe Pain Scale: 0-10 Numeric Is Patient Pain Free? Yes - Nurse 1 - General Ulcer Measurement Start: 12/27/23 14:05 Freq: Status: Active Protocol: Activity Type Activity Date Activity User E-sign Co-sign Detail Recorded Client Recorded Date Recorded By Document 12/27/23 14:07 IN [email or web address] 12/27/23 14:17 IN 12/27/23 14:07 Wound Center Nurse 1 #14- L SACRAL -Current Size (cm) - Length 2.1 -Current Size (cm) - Width 2.0 -Current Size (cm) - Depth 0.2 -Total Square Cm 4.20 -Undermining/Tunneling Yes -Undermining/Tunneling Starts (O'clock 11 ) -Undermining/Tunneling Ends (O'clock) 9 -Maximum Distance (cm) 2.8 -Exudate Amt Medium -Exudate Type Serosanguineous -Wound Margin Thickened & Rolled Under -Granulation Amt Large (67-100%) -Granulation Quality Pale,[place] -Slough/Fibrin No -Texture (Vivi-wound Skin Appearance) Assessed -Moisture (Vivi-wound Skin Appearance) Assessed -Color (Vivi-wound Skin Appearance) Assessed -Temperature (Vivi-wound Skin No Abnormality Appearance) (Pt Warm) -Tenderness on Palpation (Vivi-wound No Skin Appearance) -Ulcer Cleansing Soap and Water -Foul Odor after Cleansing No -Anesthetic Used 5% Lidocaine Gel Lower Limb Edema Present NA - Nurse 2 - General Ulcer CM Notes Start: 12/27/23 14:05 Freq: Status: Active Protocol: Activity Type Activity Date Activity User E-sign Co-sign Detail Recorded Client Recorded Date Recorded By Document 12/27/23 14:30 [facility] 12/27/23 14:37 12/27/23 14:30 Wound Center Nurse 2 #14- L SACRAL -Time 14:30 -Correct Patient Yes -Correct Side, Site, Position Yes -Correct Procedure Yes -Procedure Performed Yes -Type of Procedure Debridement -Clinical Debridement Muscle / Fascia -Tissue Removed Muscle -Post Debridement (cm) - Length 3.0 -Post Debridement (cm) - Width 2.0 -Post Debridement (cm) - Depth 0.4 -Total Square (Post) (cm) 6.00 -Area of Debridement (cm) - Length 3.0 -Area of Debridement (cm) - Width 2.0 -Total Square (Area) (cm) 6.00 -Undermining/Tunneling Yes -Undermining/Tunneling Starts (O'clock 6 ) -Undermining/Tunneling Ends (O'clock) 12 -Maximum Distance (cm) 3.3 -Wound/Ulcer Outcome Not Healed -Ulcer Cleansing Rinsed/ Irrigated with Saline -Foul Odor after Cleansing No -Bleeding Controlled with Pressure -Treatment Response Procedure Tolerated Well -Debridement - Muscle / Fascia, 1st Yes 20sq cm Pain Scale: 0-10 Numeric Is Patient Pain Free? Yes - Nurse 3 - General Ulcer D/C NN Start: 12/27/23 14:05 Freq: Status: Active Protocol: Activity Type Activity Date Activity User E-sign Co-sign Detail Recorded Client Recorded Date Recorded By Document 12/27/23 14:54 [facility] 12/27/23 14:54 12/27/23 14:54 Wound Care Center Nurse 3 #14- L SACRAL -Ulcer Cleansing Not Cleansed -Foul Odor after Cleansing No -Primary Dressing Applied Aquacel AG 4x4, Mepilex Border -Aquacel AG 4x4 1 -Mepilex Border 1 Pain Scale: 0-10 Numeric Is Patient Pain Free? Yes - Visit Discharge Discharge Condition Stable Ambulatory Status Wheelchair Transportation Private Auto Clinical Summary of Care Provided Yes Assessment/Plan Assessment/Plan (1) Pressure injury of sacral region, stage 4: CODE(S): L89.154 - Pressure ulcer of sacral region, stage 4 (2) S/P laminectomy with spinal fusion: CODE(S): Z98.1 - Arthrodesis status (3) Paraplegia: CODE(S): G82.20 - Paraplegia, unspecified (4) Diabetes mellitus: CODE(S): E11.9 - Type 2 diabetes mellitus without complications (5) Weight loss, non-intentional: CODE(S): R63.4 - Abnormal weight loss (6) Tobacco use disorder: CODE(S): F17.200 - Nicotine dependence, unspecified, uncomplicated (7) Personal history of Methicillin resistant Staphylococcus aureus infection: CODE(S): Z86.14 - Personal history of Methicillin resistant Staphylococcus aureus infection PLAN: Plan Wound care - Continue Aquacel-Ag covered by ABD daily. Wash area with soap and water at the time of the dressing changes. Wound culture 12/26/22 positive for Proteus miriabilis, Enterococcus faecalis, Streptococcus agalactiae, Anaerobic cocci and Bacteroides fragilis. She was treated with Augmentin. Wound culture from 01/23/23 was positive for MRSA and Morganella morganii. MRSA was treated with Doxycycline. Wound culture 04/03/23 positive for Proteus mirabilis, Enterococcus faecalis, and Anaerobic cocci. She is being treated with Augmentin. Wound culture from 07/03/23 positive for Proteus mirabilis and Enterococcus faecalis which was treated with Augmentin. A wound culture was obtained on 08/23/23. It was negative. CT Pelvis was done on 09/20/23. It showed evidence of tissue defect in the medial aspect of the right buttock abutting the distal sacrum. This most likely represents an ulcerated pressure ulcer. Normal urinary bladder. Normal visualized small intestine. Moderate amount of fecal material is seen in the colon. There is no pelvic fluid. There is no pelvic mass lesion or lymphadenopathy. There is diffuse atherosclerotic calcification of the pelvic arteries. Phleboliths are seen in the pelvis. Normal abdominal wall. Extensive metallic streak artifacts due to fusion with intrapedicular screw and aurelia fixation the lower lumbar spine. Patient has diabetes mellitus. Her last HgbA1c from 09/18/20 was 5.9. For elective surgeries such as a myocutaneous flap for closure of the sacral ulcer, the HgbA1c needs to be less than 8. Encouraged nutritional supplementation with protein to help the healing process. Will check Prealbumin at the time of the operative debridement. Will maximize her nutrition at the time of the myocutaneous flap as the Prealbumin should ideally be greater than 20. If the sacral ulcer looks good at the time of the myocutaneous flap, a Prealbumin of 16-20 would be acceptable. Also at the time of the operative debridement, a wound culture would be obtained. A positive culture will necessitate antibiotic therapy. If Pseudomonas or MRSA is present, then 6 weeks of antibiotics would be necessary followed by another operative debridement. Pseudomonas can destroy muscle flaps if not completely treated. Stressed importance of not sitting or laying on her pressure ulcer for long periods of time. Encouraged patient to stop smoking as it may have deleterious effects on wound healing. For the elective myocutaneous flap for closure of the sacral ulcer, it is strongly encouraged to stop smoking to optimize healing of the flap. Healing is slow. Undermining still present superiorly. An operative debridement is scheduled for December 31. Will check soft tissue and bone for Pathology and Microbiology. Surgery will be done under general anesthesia with a surgical observation overnight stay in the hospital. A VAC will be placed during the hospital stay. Patient was informed of the risks and complications of the procedure including alternatives to surgery. These were discussed with the patient personally. Patient voices understanding and wishes to proceed. Potential risks and complications included but not inclusive of bleeding, infection, seroma, hematoma, bruising, swelling, wound breakdown, poor scarring, poor aesthetic outcome, intra operative cardiac or neurologic events, DVT, PE, and reaction to anesthesia. Follow up two weeks.
[2024-01-10 13:15] VITALS: BP 95/63; PULSE 101; RESP 16; TEMP 35.8
--- NOTE | 2024-01-10 16:44 | PN.PCM_ITS ---
History of Present Illness Date of Service: 01/10/24 Chief Complaint: Sacral ulcer History of Wound: Patient is a 63 year old female who previously was a patient here and known to me, but had back surgery in early September 2022 at [facility] and then went to rehab at [facility] after that. She had a aurelia replaced in her back. Before her surgery, she was not able to lie flat due to increased pain, so she spent most of her time in her wheelchair. Now since her surgery, she is in too much back pain to sit in her wheelchair. She presents today with an ulcer to her sacrum. She was in the ED on 12/10/22 for increased wound drainage and was treated with Keflex, which she has completed. She does have home health to assist with dressing changes. She has lost 100 lbs since last being here in early September. Wound culture 12/26/22 positive for Proteus mirabilis, Enterococcus faecalis, Streptococcus agalactiae, Anaerobic cocci and Bacteroides fragilis. She was treated with Augmentin. Wound culture from 01/23/23 was positive for MRSA and Morganella morganii. The MRSA was treated with Doxycycline. Wound culture 04/03/23 positive for Proteus mirabilis, Enterococcus faecalis, and Anaerobic cocci. She was treated with Augmentin. Wound culture from 07/03/23 positive for Proteus mirabilis and Enterococcus fa ecalis which was treated with Augmentin. Wound culture was done on 08/23/23. It was negative. She had CT Pelvis on 09/20/23. It showed evidence of tissue defect in the medial aspect of the right buttock abutting the distal sacrum. This most likely represents an ulcerated pressure ulcer. Normal urinary bladder. Normal visualized small intestine. Moderate amount of fecal material is seen in the colon. There is no pelvic fluid. There is no pelvic mass lesion or lymphadenopathy. There is diffuse atherosclerotic calcification of the pelvic arteries. Phleboliths are seen in the pelvis. Normal abdominal wall. Extensive metallic streak artifacts due to fusion with intrapedicular screw and aurelia fixation the lower lumbar spine. Surgery 01/01/24 - Excision sacral pressure sore, Stage IV, with partial ostectomy for osteomyelitis. Pathology of sacral bone consistent with chronic osteomyelitis. Soft tissue and skin of sacral region showed ulceration with associated acute and chronic inflammation and granulation. Operative bone culture from 01/01/24 positive for Staphylococcus haemolyticus. She will be treated for 6 weeks for positive bone cultures. Operative tissue culture from 01/01/24 positive for Corynebacterium striatum, Strep anginosus, Prevotella disiens, and Anaerobic cocci. She will be treated with Doxycycline and Augmentin. Today she denies fever. Her appetite is ok. Progress of Wound: Left sacral ulcer has bone exposure. No active bleeding, ulcer appears stable. There continues to be some undermining in the 9-12 o'clock region. She is tolerating the wound vac well. Objective Data Objective Data Vital Signs: Vital Signs Temp Pulse Resp BP O2 Del Method 96.4 F L 101 H 16 95/63 Room Air 01/10/24 13:15 01/10/24 13:15 01/10/24 13:15 01/10/24 13:15 01/10/24 13:15 Oxygen Delivery Method Room Air Charges/Coding Procedures Integumentary [id number]: [id number] Global Visit Physical Exam Const oriented x3 HEENT normocephalic Lymph Lymphatic: no lymphedema noted Resp normal respiratory effort and clear to auscultation bilaterally Effort and Inspection: able to speak in complete sentences Cardio regular rate and regular rhythm GI soft to palpation and non-tender Extremity normal to inspection and normal capillary refill Skin Wound Narrative: Sacral ulcer is stable. No active bleeding. Neuro oriented x3 Psych affect normal Debridement Note Debridement Note No debridement was completed: No debridement was completed today Post-Debridement Measurements and Additional Note: Post-Debridement Measurements/Treatment - Nurse 1 - General Ulcer Assessment Start: 12/27/23 14:05 Freq: Status: Active Protocol: [email or web address] Activity Type Activity Date Activity User E-sign Co-sign Detail Recorded Client Recorded Date Recorded By Document 12/27/23 14:07 NM [email or web address] 12/27/23 14:17 NM Document 01/10/24 13:15 [facility] 1606-07-02 01/10/24 13:26 [facility] 12/27/23 01/10/24 14:07 13:15 - Today's Visit Information Type of service Follow-up Visit Follow-up Visit (Physician/INTERNET SALES DIRECTOR (Physician/INTERNET SALES DIRECTOR ) ) Arrival Mode Wheelchair Wheelchair Transfer Assistance Other Transfer Assist (Other) 2 Accompanied by self Patient Identification Verified (Name & Yes Yes ) Patient Requires Transmission-Based No Precautions Safety Precautions Fall Prevention Vital Signs Temperature (97.8 F-99.1 F) 98 F 96.4 F L Temperature Source Temporal Temporal Pulse Rate (60-100) 93 101 H Pulse Location Monitor Monitor Respiratory Rate (12-18) 18 16 Respiratory rate source Observation Observation Oxygen Delivery Method Room Air Room Air Blood Pressure (90/60-120/80) 100/60 95/63 Blood Pressure Mean (mm Hg) 73 73 Source Monitor Monitor Position Sitting Sitting Blood Pressure Location Left Arm Left Arm 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 Any new allergies or adverse reactions No Had a fall/change in ADL's that may No increase risk of falls Signs or symptoms of abuse and/or No neglect since last visit Have you been in the hospital since your Yes last visit? Has dressing in place as prescribed Yes Yes Has compression in place as prescribed N/A N/A Has offloadiing in place as prescribed N/A N/A Experienced any changes in pain level or No No management Left Footwear Regular Shoe Slipper Right Footwear Regular Shoe Slipper Pain Scale: 0-10 Numeric Is Patient Pain Free? Yes Yes - Nurse 1 - General Ulcer Measurement Start: 12/27/23 14:05 Freq: Status: Active Protocol: Activity Type Activity Date Activity User E-sign Co-sign Detail Recorded Client Recorded Date Recorded By Document 12/27/23 14:07 NM [email or web address] 12/27/23 14:17 MT Document 01/10/24 13:15 [facility] 1606-07-02 01/10/24 13:26 [facility] 12/27/23 01/10/24 14:07 13:15 Wound Center Nurse 1 #14- L SACRAL POST OP -Combined with other wound No -Current Size (cm) - Length 2.1 6.5 -Current Size (cm) - Width 2.0 6.8 -Current Size (cm) - Depth 0.2 0.8 -Total Square Cm 4.20 44.20 -Date of Last Picture (Recall this 01/10/24 field) -Photo Taken Yes -Undermining/Tunneling Yes Yes -Undermining/Tunneling Starts (O'clock 11 12 ) -Undermining/Tunneling Ends (O'clock) 9 12 -Maximum Distance (cm) 2.8 3.5 -Circular Undermining Yes -Exudate Amt Medium Large -Exudate Type Serosanguineous Serosanguineous -Wound Margin Thickened & Distinct, Rolled Under Outline Attached -Granulation Amt Large (67-100%) Large (67-100%) -Granulation Quality Pale,Braz[place] Red -Slough/Fibrin No Yes -Necrosis Amt Medium (34-66%) -Necrotic Tissue Type Adherent Slough -Structure Exposed Bone -Texture (Vivi-wound Skin Appearance) Assessed Assessed, Scarring -Moisture (Vivi-wound Skin Appearance) Assessed Assessed -Color (Ivvi-wound Skin Appearance) Assessed Assessed, Erythema -Temperature (Vivi-wound Skin No Abnormality No Abnormality Appearance) (Pt Warm) (Pt Warm) -Tenderness on Palpation (Vivi-wound No No Skin Appearance) -Ulcer Cleansing Soap and Water Soap and Water -Foul Odor after Cleansing No No -Anesthetic Used 5% Lidocaine 4% Lidocaine Gel Solution Lower Limb Edema Present NA - Nurse 2 - General Ulcer CM Notes Start: 12/27/23 14:05 Freq: Status: Active Protocol: Activity Type Activity Date Activity User E-sign Co-sign Detail Recorded Client Recorded Date Recorded By Document 12/27/23 14:30 [facility] 12/27/23 14:37 Document 01/10/24 14:08 [facility] 01/10/24 14:12 12/27/23 01/10/24 14:30 14:08 Wound Center Nurse 2 #14- L SACRAL POST OP -Time 14:30 14:08 -Correct Patient Yes Yes -Correct Side, Site, Position Yes Yes -Correct Procedure Yes -Procedure Performed Yes -Type of Procedure Debridement -Clinical Debridement Muscle / Fascia -Tissue Removed Muscle -Post Debridement (cm) - Length 3.0 -Post Debridement (cm) - Width 2.0 -Post Debridement (cm) - Depth 0.4 -Total Square (Post) (cm) 6.00 -Area of Debridement (cm) - Length 3.0 -Area of Debridement (cm) - Width 2.0 -Total Square (Area) (cm) 6.00 -Undermining/Tunneling Yes -Undermining/Tunneling Starts (O'clock 6 ) -Undermining/Tunneling Ends (O'clock) 12 -Maximum Distance (cm) 3.3 -Wound/Ulcer Outcome Not Healed Not Healed -Ulcer Cleansing Rinsed/ Irrigated with Saline -Foul Odor after Cleansing No -Bleeding Controlled with Pressure -Treatment Response Procedure Tolerated Well -Debridement - Muscle / Fascia, 1st Yes 20sq cm -Wound Comment(s) NO DEBRIDEMENT 8X6X1.3 UNDERMINING AT 6-12 EQUALS 2.3 Pain Scale: 0-10 Numeric Is Patient Pain Free? Yes Yes - Nurse 3 - General Ulcer D/C NN Start: 12/27/23 14:05 Freq: Status: Active Protocol: Activity Type Activity Date Activity User E-sign Co-sign Detail Recorded Client Recorded Date Recorded By Document 12/27/23 14:54 GM 12/27/23 14:54 Document 01/10/24 14:16 [facility] 1606-07-02 01/10/24 14:16 [facility] 12/27/23 01/10/24 14:54 14:16 Wound Care Center Nurse 3 #14- L SACRAL POST OP -Ulcer Cleansing Not Cleansed Rinsed/ Irrigated with Saline -Foul Odor after Cleansing No No -Negative Pressure Wound Therapy Continue -Setting (mmHg) 150 -Negative Pressure is Continuous -Primary Dressing Applied Aquacel AG 4x4, Mepilex Border -NPWT Application Charge NPWT </= 50 sq cm ($) -Aquacel AG 4x4 1 -Mepilex Border 1 Treatment Response Procedure Tolerated Well Pain Scale: 0-10 Numeric Is Patient Pain Free? Yes Yes - Visit Discharge Discharge Condition Stable Stable Ambulatory Status Wheelchair Wheelchair Transportation Private Auto Private Auto Accompanied by [facility] IN [facility] Clinical Summary of Care Provided Yes Facility Type Home Health Assessment/Plan Assessment/Plan (1) Pressure injury of sacral region, stage 4: CODE(S): L89.154 - Pressure ulcer of sacral region, stage 4 (2) Osteomyelitis of sacrum: CODE(S): M46.28 - Osteomyelitis of vertebra, sacral and sacrococcygeal region (3) Diabetes mellitus: CODE(S): E11.9 - Type 2 diabetes mellitus without complications (4) Tobacco use disorder: CODE(S): F17.200 - Nicotine dependence, unspecified, uncomplicated (5) Paraplegia: CODE(S): G82.20 - Paraplegia, unspecified (6) Smoker: CODE(S): F17.200 - Nicotine dependence, unspecified, uncomplicated PLAN: Plan Wound care - Wound VAC at 150 mmHg to be changed 3 times per week. Wash ulcer and vivi wound with soap and water at the time of the dressing change. Surgery 01/01/24 - Excision sacral pressure sore, Stage IV, with partial os tectomy for osteomyelitis. Pathology of sacral bone consistent with chronic osteomyelitis. Soft tissue and skin of sacral region showed ulceration with associated acute and chronic inflammation and granulation. Operative bone culture from 01/01/24 positive for Staphylococcus haemolyticus. She will be treated for 6 weeks for positive bone cultures. Operative tissue culture from 01/01/24 positive for Corynebacterium striatum, Strep anginosus, Prevotella disiens, and Anaerobic cocci. She will be treated with Doxycycline and Augmentin. Wound culture 12/26/22 positive for Proteus miriabilis, Enterococcus faecalis, Streptococcus agalactiae, Anaerobic cocci and Bacteroides fragilis. She was treated with Augmentin. Wound culture from 01/23/23 was positive for MRSA and Morganella morganii. MRSA was treated with Doxycycline. Wound culture 04/03/23 positive for Proteus mirabilis, Enterococcus faecalis, and Anaerobic cocci. She is being treated with Augmentin. Wound culture from 07/03/23 positive for Proteus mirabilis and Enterococcus faecalis which was treated with Augmentin. A wound culture was obtained on 08/23/23. It was negative. CT Pelvis was done on 09/20/23. It showed evidence of tissue defect in the medial aspect of the right buttock abutting the distal sacrum. This most likely represents an ulcerated pressure ulcer. Normal urinary bladder. Normal visualized small intestine. Moderate amount of fecal material is seen in the colon. There is no pelvic fluid. There is no pelvic mass lesion or lymphadenopathy. There is diffuse atherosclerotic calcification of the pelvic arteries. Phleboliths are seen in the pelvis. Normal abdominal wall. Extensive metallic streak artifacts due to fusion with intrapedicular screw and aurelia fixation the lower lumbar spine. Follow up one week.
--- NOTE | 2024-01-15 09:04 | WC ---
PHOTO 01/10/2024 SACRAL POST OP
[2024-01-17 13:21] VITALS: BP 99/68; PULSE 82; RESP 16; TEMP 35.6
--- NOTE | 2024-01-17 14:53 | PN.PCM_ITS ---
History of Present Illness Date of Service: 01/17/24 Chief Complaint: Sacral ulcer History of Wound: Patient is a 63 year old female who previously was a patient here and known to me, but had back surgery in early September 2022 at [facility] and then went to rehab at [facility] after that. She had a aurelia replaced in her back. Before her surgery, she was not able to lie flat due to increased pain, so she spent most of her time in her wheelchair. Now since her surgery, she is in too much back pain to sit in her wheelchair. She presents today with an ulcer to her sacrum. She was in the ED on 12/10/22 for increased wound drainage and was treated with Keflex, which she has completed. She does have home health to assist with dressing changes. She has lost 100 lbs since last being here in early September. Wound culture 12/26/22 positive for Proteus mirabilis, Enterococcus faecalis, Streptococcus agalactiae, Anaerobic cocci and Bacteroides fragilis. She was treated with Augmentin. Wound culture from 01/23/23 was positive for MRSA and Morganella morganii. The MRSA was treated with Doxycycline. Wound culture 04/03/23 positive for Proteus mirabilis, Enterococcus faecalis, and Anaerobic cocci. She was treated with Augmentin. Wound culture from 07/03/23 positive for Proteus mirabilis and Enterococcus fa ecalis which was treated with Augmentin. Wound culture was done on 08/23/23. It was negative. She had CT Pelvis on 09/20/23. It showed evidence of tissue defect in the medial aspect of the right buttock abutting the distal sacrum. This most likely represents an ulcerated pressure ulcer. Normal urinary bladder. Normal visualized small intestine. Moderate amount of fecal material is seen in the colon. There is no pelvic fluid. There is no pelvic mass lesion or lymphadenopathy. There is diffuse atherosclerotic calcification of the pelvic arteries. Phleboliths are seen in the pelvis. Normal abdominal wall. Extensive metallic streak artifacts due to fusion with intrapedicular screw and aurelia fixation the lower lumbar spine. Surgery 01/01/24 - Excision sacral pressure sore, Stage IV, with partial ostectomy for osteomyelitis. Pathology of sacral bone consistent with chronic osteomyelitis. Soft tissue and skin of sacral region showed ulceration with associated acute and chronic inflammation and granulation. Operative bone culture from 01/01/24 positive for Staphylococcus haemolyticus. She will be treated for 6 weeks for positive bone cultures. Operative tissue culture from 01/01/24 positive for Corynebacterium striatum, Strep anginosus, Prevotella disiens, and Anaerobic cocci. She will be treated with Doxycycline and Augmentin. Today she denies fever. Her appetite is ok. Progress of Wound: Left sacral ulcer has bone exposure. No active bleeding, ulcer appears stable. There continues to be some undermining in the 9-12 o'clock region. She is having significant amount of pain today. She is unsure if it is being caused by the wound VAC. In past, the wound VAC did cause her quite a bit of discomfort. She did have adaptic balled up in the base of the ulcer. They were covering the bone with it, but it was not staying where it was placed. Uncertain if this contributed to her discomfort. She also has some bruised scabbing on the left latera edge of the ulcer where it appears that the wound VAC foam was placed against her skin, not protected by drape. This also could have been contributing to her pain. Objective Data Objective Data Vital Signs: Vital Signs Temp Pulse Resp BP O2 Del Method 96.1 F L 82 16 99/68 Room Air 01/17/24 13:21 01/17/24 13:21 01/17/24 13:21 01/17/24 13:21 01/17/24 13:21 Oxygen Delivery Method Room Air Charges/Coding Procedures Integumentary [id number]: [id number] Global Visit Debridement Note Debridement Note Wound debrided: #14 Sacral area. Laterality: Not Applicable Wound Grade/Stage: IV. Type of Debridement: Excisional debridement Anesthesia Used: 5% Lidocaine Gel Depth: Down to and including healthy tissue, in the subcutaneous layer, to muscle and to bone (bone is exposed but not debrided.) Percentage of wound debrided: 100 Instrument Used: 7mm curette Tissue Removed: subcutaneous tissue, senescent cells, devitalized tissue and muscle. Severity: Fat Layer Exposed (muscle is exposed. bone is palpable but not exposed.) Amount of bleeding with debridement: Mild Bleeding Controlled with: Pressure and Compression and gauze Patient tolerated procedure: Patient tolerated procedure well Post-Debridement Measurements and Additional Note: Post-Debridement Measurements/Treatment WC - Nurse 1 - General Ulcer Assessment Start: 12/27/23 14:05 Freq: Status: Active Protocol: WC.LOWEXT Activity Type Activity Date Activity User E-sign Co-sign Detail Recorded Client Recorded Date Recorded By Document 12/27/23 14:07 [email or web address] 12/27/23 14:17 NC Document 01/10/24 13:15 [facility] 1606-07-02 01/10/24 13:26 [facility] Document 01/17/24 13:21 [facility] [id number] 01/17/24 13:37 BMF 12/27/23 01/10/24 01/17/24 14:07 13:15 13:21 - Today's Visit Information Type of service Follow-up Visit Follow-up Visit Follow-up Visit (Physician/IN FLIGHT REFUELING SYSTEM REPAIRER (Physician/IN FLIGHT REFUELING SYSTEM REPAIRER (Physician/IN FLIGHT REFUELING SYSTEM REPAIRER ) ) ) Arrival Mode Wheelchair Wheelchair Wheelchair Transfer Assistance Other Other Transfer Assist (Other) 2 1 Accompanied by self RAMAKRISHNA IN [facility] Patient Identification Verified (Name & Yes Yes Yes ) Patient Requires Transmission-Based No Yes Precautions Safety Precautions Fall Prevention NA Vital Signs Temperature (97.8 F-99.1 F) 98 F 96.4 F L 96.1 F L Temperature Source Temporal Temporal Temporal Pulse Rate (60-100) 93 101 H 82 Pulse Location Monitor Monitor Monitor Respiratory Rate (12-18) 18 16 16 Respiratory rate source Observation Observation Observation Oxygen Delivery Method Room Air Room Air Room Air Blood Pressure (90/60-120/80) 100/60 95/63 99/68 Blood Pressure Mean (mm Hg) 73 73 78 Source Monitor Monitor Monitor Position Sitting Sitting Sitting Blood Pressure Location Left Arm Left Arm Left Arm Comment will update inpatient auditor on bp History Since Last Visit- (Skip if this is Patient's initial visit) Have you changed medications since your No No last visit? Any new allergies or adverse reactions No No Had a fall/change in ADL's that may No No increase risk of falls Signs or symptoms of abuse and/or No No neglect since last visit Have you been in the hospital since your Yes No last visit? Has dressing in place as prescribed Yes Yes Yes Has compression in place as prescribed N/A N/A N/A Has offloadiing in place as prescribed N/A N/A N/A Experienced any changes in pain level or No No No management Left Footwear Regular Shoe Slipper Slipper Right Footwear Regular Shoe Slipper Slipper Pain Scale: 0-10 Numeric Is Patient Pain Free? Yes Yes No sacral WOUND -Description Sharp,Throbbing -Intensity 8 -Duration (hours) Acute -Pain Behavior Facial Grimacing -Pain Aggravating Factors Sitting -Alleviating Factors/Interventions Turning/ Repositioning, Distraction, Will continue to monitor, Patient denies need for intervention, Emotional Support -Comments TAKING PRN PAIN MEDS AT HOME WC - Nurse 1 - General Ulcer Measurement Start: 12/27/23 14:05 Freq: Status: Active Protocol: Activity Type Activity Date Activity User E-sign Co-sign Detail Recorded Client Recorded Date Recorded By Document 12/27/23 14:07 [email or web address] 12/27/23 14:17 NC Document 01/10/24 13:15 [facility] 1606-07-02 01/10/24 13:26 [facility] Document 01/17/24 13:21 [facility] [id number] 01/17/24 13:37 BMF 12/27/23 01/10/24 01/17/24 14:07 13:15 13:21 Wound Center Nurse 1 #14- L SACRAL POST OP -Combined with other wound No No -Current Size (cm) - Length 2.1 6.5 7.2 -Current Size (cm) - Width 2.0 6.8 5.5 -Current Size (cm) - Depth 0.2 0.8 1.5 -Total Square Cm 4.20 44.20 39.60 -Date of Last Picture (Recall this 01/10/24 01/17/24 field) -Photo Taken Yes Yes -Epithelialization Small 1-33% -Tunneling No -Undermining/Tunneling Yes Yes Yes -Undermining/Tunneling Starts (O'clock 11 12 7 ) -Undermining/Tunneling Ends (O'clock) 9 12 5 -Maximum Distance (cm) 2.8 3.5 2.4 -Circular Undermining Yes No -Exudate Amt Medium Large Large -Exudate Type Serosanguineous Serosanguineous Serosanguineous -Wound Margin Thickened & Distinct, Distinct, Rolled Under Outline Outline Attached Attached -Granulation Amt Large (67-100%) Large (67-100%) Medium (34-66%) -Granulation Quality Pale,[place] Red Red -Slough/Fibrin No Yes Yes -Necrosis Amt Medium (34-66%) Medium (34-66%) -Necrotic Tissue Type Adherent Slough Adherent Slough -Structure Exposed Bone Bone -Texture (Kimani-wound Skin Appearance) Assessed Assessed, Assessed, Scarring Localized Edema -Moisture (Kimani-wound Skin Appearance) Assessed Assessed Assessed -Color (Kimani-wound Skin Appearance) Assessed Assessed, Assessed, Erythema Erythema -Temperature (Kimain-wound Skin No Abnormality No Abnormality No Abnormality Appearance) (Pt Warm) (Pt Warm) (Pt Warm) -Tenderness on Palpation (Kimani-wound No No No Skin Appearance) -Ulcer Cleansing Soap and Water Soap and Water Soap and Water -Foul Odor after Cleansing No No No -Anesthetic Used 5% Lidocaine 4% Lidocaine 4% Lidocaine Gel Solution Solution Lower Limb Edema Present NA WC - Nurse 2 - General Ulcer CM Notes Start: 12/27/23 14:05 Freq: Status: Active Protocol: Activity Type Activity Date Activity User E-sign Co-sign Detail Recorded Client Recorded Date Recorded By Document 12/27/23 14:30 GM 12/27/23 14:37 GM Document 01/10/24 14:08 GM 01/10/24 14:12 GM Document 01/17/24 13:43 GM 01/17/24 13:50 GM Edit Result 01/17/24 13:43 GM (1) 01/17/24 13:51 GM (1) #14- L SACRAL POST OP - Debridement, SubQ, ea addt'l 20sq cm => 2 or part thereof 12/27/23 01/10/24 01/17/24 14:30 14:08 13:43 Wound Center Nurse 2 #14- L SACRAL POST OP -Time 14:30 14:08 13:43 -Correct Patient Yes Yes Yes -Correct Side, Site, Position Yes Yes Yes -Correct Procedure Yes Yes -Procedure Performed Yes Yes -Type of Procedure Debridement Debridement -Clinical Debridement Muscle / Fascia Subcutaneous -Tissue Removed Muscle Subcutaneous -Post Debridement (cm) - Length 3.0 7.5 -Post Debridement (cm) - Width 2.0 6.0 -Post Debridement (cm) - Depth 0.4 1.8 -Total Square (Post) (cm) 6.00 45.00 -Area of Debridement (cm) - Length 3.0 7.5 -Area of Debridement (cm) - Width 2.0 6.0 -Total Square (Area) (cm) 6.00 45.00 -Tunneling No -Undermining/Tunneling Yes Yes -Undermining/Tunneling Starts (O'clock 6 11 ) -Undermining/Tunneling Ends (O'clock) 12 3 -Maximum Distance (cm) 3.3 2.0 -Circular Undermining No -Wound/Ulcer Outcome Not Healed Not Healed Not Healed -Ulcer Cleansing Rinsed/ Rinsed/ Irrigated with Irrigated with Saline Saline -Foul Odor after Cleansing No No -Bioengineered Tissue No -Bleeding Controlled with Pressure Pressure -Treatment Response Procedure Procedure Tolerated Well Tolerated Well -Debridement - Subq, 1st 20sq cm Yes -Debridement, SubQ, ea addt'l 20sq cm 2 or part thereof -Debridement - Muscle / Fascia, 1st Yes 20sq cm -Wound Comment(s) NO DEBRIDEMENT 8X6X1.3 UNDERMINING AT 6-12 EQUALS 2.3 Pain Scale: 0-10 Numeric Is Patient Pain Free? Yes Yes Yes - Nurse 3 - General Ulcer D/C NN Start: 12/27/23 14:05 Freq: Status: Active Protocol: Activity Type Activity Date Activity User E-sign Co-sign Detail Recorded Client Recorded Date Recorded By Document 12/27/23 14:54 [facility] 12/27/23 14:54 Document 01/10/24 14:16 [facility] 1606-07-02 01/10/24 14:16 [facility] Document 01/17/24 14:14 RB wound 01/17/24 14:14 RB 12/27/23 01/10/24 01/17/24 14:54 14:16 14:14 Wound Care Center Nurse 3 #14- L SACRAL POST OP -Ulcer Cleansing Not Cleansed Rinsed/ Irrigated with Saline -Foul Odor after Cleansing No No -Negative Pressure Wound Therapy Continue -Setting (mmHg) 150 -Negative Pressure is Continuous -Primary Dressing Applied Aquacel AG 4x4, Mepilex Border -Other Dressing dakins moistened gauze / ABD tape -NPWT Application Charge NPWT </= 50 sq cm ($) -Aquacel AG 4x4 1 -Mepilex Border 1 Treatment Response Procedure Procedure Tolerated Well Tolerated Well Pain Scale: 0-10 Numeric Is Patient Pain Free? Yes Yes Yes - Visit Discharge Discharge Condition Stable Stable Stable Ambulatory Status Wheelchair Wheelchair Wheelchair Transportation Private Auto Private Auto Private Auto Accompanied by RAMAKRISHNA IN [facility] Medication Reconcilliation completed & No provided to patient/care provider Clinical Summary of Care Provided Yes Yes Facility Type Home Health Assessment/Plan Assessment/Plan (1) Pressure injury of sacral region, stage 4: CODE(S): L89.154 - Pressure ulcer of sacral region, stage 4 (2) Osteomyelitis of sacrum: CODE(S): M46.28 - Osteomyelitis of vertebra, sacral and sacrococcygeal region (3) Diabetes mellitus: CODE(S): E11.9 - Type 2 diabetes mellitus without complications (4) Tobacco use disorder: CODE(S): F17.200 - Nicotine dependence, unspecified, uncomplicated (5) Paraplegia: CODE(S): G82.20 - Paraplegia, unspecified (6) Smoker: CODE(S): F17.200 - Nicotine dependence, unspecified, uncomplicated PLAN: Plan Wound care - Will take a week holiday from the Wound VAC. Start Dakin's 0.25% moistened gauze topped with fluffed gauze and covered with ABD/super absorber daily. Wash ulcer and kimani wound with soap and water at the time of the dressing change. When the wound VAC is restarted in one week by home health, it will be at 150 mmHg using black foam coiled into the base of the ulcer with NO adaptic over the bone. Surgery 01/01/24 - Excision sacral pressure sore, Stage IV, with partial ostectomy for osteomyelitis. Pathology of sacral bone consistent with chronic osteomyelitis. Soft tissue and skin of sacral region showed ulceration with associated acute and chronic inflammation and granulation. Operative bone culture from 01/01/24 positive for Staphylococcus haemolyticus. She will be treated for 6 weeks for positive bone cultures. Operative tissue culture from 01/01/24 positive for Corynebacterium striatum, Strep anginosus, Prevotella disiens, and Anaerobic cocci. She will be treated with Doxycycline and Augmentin. Wound culture 12/26/22 positive for Proteus miriabilis, Enterococcus faecalis, Streptococcus agalactiae, Anaerobic cocci and Bacteroides fragilis. She was treated with Augmentin. Wound culture from 01/23/23 was positive for MRSA and Morganella morganii. MRSA was treated with Doxycycline. Wound culture 04/03/23 positive for Proteus mirabilis, Enterococcus faecalis, and Anaerobic cocci. She is being treated with Augmentin. Wound culture from 07/03/23 positive for Proteus mirabilis and Enterococcus faecalis which was treated with Augmentin. A wound culture was obtained on 08/23/23. It was negative. CT Pelvis was done on 09/20/23. It showed evidence of tissue defect in the medial aspect of the right buttock abutting the distal sacrum. This most likely represents an ulcerated pressure ulcer. Normal urinary bladder. Normal visualized small intestine. Moderate amount of fecal material is seen in the colon. There is no pelvic fluid. There is no pelvic mass lesion or lymphadenopathy. There is diffuse atherosclerotic calcification of the pelvic arteries. Phleboliths are seen in the pelvis. Normal abdominal wall. Extensive metallic streak artifacts due to fusion with intrapedicular screw and aurelia fixation the lower lumbar spine. Follow up two weeks.
--- NOTE | 2024-01-24 10:02 | WC ---
PHOTO SACRAL 01/17/2024
== END 2024-01-21 23:59 | disposition home or self-care (01) ==
LOC: WC 13:15
PROVIDERS: PCP Internal Medicine; Referring Provider Obstetrics & Gynecology; Visit Provider Nurse Practitioner Family
DX: L89.154 Pressure ulcer of sacral region, stage 4 (principal); G82.20 Paraplegia, unspecified; E11.9 Type 2 diabetes mellitus without complications; Z98.1 Arthrodesis status; R63.4 Abnormal weight loss; F17.200 Nicotine dependence, unspecified, uncomplicated; Z86.14 Personal history of Methicillin resistant Staphylococcus aureus infection; Z99.3 Dependence on wheelchair
CPT/HCPCS: 11042; 11043; 11045; 97605

== ENCOUNTER 2024-01-19 20:37 | Emergency (ER) | payer MEDICARE, MEDICAID, SELFPAY ==
[2024-01-19 20:39] VITALS: BP 163/99; PULSE 85; RESP 18; TEMP 36.1; O2SAT 100
--- NOTE | 2024-01-19 21:15 | CT_ITS ---
EXAM: CT ABDOMEN AND PELVIS WITH INTRAVENOUS CONTRAST CLINICAL INDICATION: Severe abdominal pain, hematemesis, status post Ro -- IV PO Contrast TECHNIQUE: Helically acquired images were obtained of the abdomen and pelvis with intravenous contrast. This CT exam was performed using one or more of the following dose reduction techniques: automated exposure control, adjustment of the mA and/or kV according to patient size, and/or use of iterative reconstruction technique. CONTRAST: 100 cc of Isovue-370 IV. Gastrografin oral contrast. RADIATION DOSE: CTDIvol = 12.89 mGy, DLP = 1039.03 mGy-cm COMPARISON: MRCP 3-21. FINDINGS: LOWER THORAX: Unremarkable. Lung bases are clear. No cardiomegaly. No significant pericardial effusion. ABDOMEN: LIVER: Unremarkable. Homogeneous. No focal mass. GALLBLADDER AND BILE DUCTS: Common bile duct is dilated up to 1.3 cm and there is moderate intrahepatic biliary dilatation unchanged since the prior exam. Cholecystectomy. PANCREAS: Unremarkable. No focal cystic or solid mass. SPLEEN: Unremarkable. Normal size without focal cystic or solid mass. ADRENALS: Unremarkable. No nodules. KIDNEYS AND URETERS: Unremarkable. Normal renal size and position. No hydronephrosis. STOMACH AND BOWEL: Status post gastric bypass surgery. No stomach or bowel distention. No focal inflammatory change. PELVIS: APPENDIX: No evidence of acute appendicitis. BLADDER: Diffuse wall thickening of the urinary bladder. REPRODUCTIVE: Unremarkable as visualized. No mass. ABDOMEN and PELVIS: INTRAPERITONEAL SPACE: Unremarkable. No ascites or other fluid collection. No free air. BONES/JOINTS: Extensive old postoperative changes in the thoracic and lumbar spine with pedicle screws and rods. Significant erosion of the L3 vertebral body. No suspicious lytic or blastic abnormality. SOFT TISSUES: Unremarkable. No discrete abdominal or pelvic wall hernia. VASCULATURE: Unremarkable. Abdominal aorta is non-dilated. LYMPH NODES: Unremarkable. No enlarged lymph nodes. CT/Abdomen/Pelvis WITH Contrast IMPRESSION: 1. Diffuse wall thickening of the urinary bladder. This may be due to cystitis or muscular hypertrophy. 2. Common bile duct is dilated up to 1.3 cm and there is moderate intrahepatic biliary dilatation unchanged since the prior exam. 3. Extensive old postoperative changes in the thoracic and lumbar spine with pedicle screws and rods. Significant erosion of the L3 vertebral body. 4. Cholecystectomy. 5. Status post gastric bypass surgery. No obstruction. Electronically Signed: Feroz Corrigan MD at 23:42 EDT ,
[2024-01-19 21:27] LABS: Absolute Lymphocyte Count 2.03 X10^3/uL (0.83-4.51); Absolute Neutrophil Count 5.8 X10^3/uL (2.0-7.7); Basophil# 0.03 X10^3/uL; Basophil% 0.4 % (0-1); Eosinophil# 0.06 X10^3/uL; Eosinophils% 0.7 % (0-5); Hemoglobin 12.4 g/dL (12.0-15.0); Lymphocyte # 2.03 X10^3/ul (0.83-4.51); Lymphocyte % 23.9 % (19-41); Mean Corp Hgb Conc 34.4 g/dL (32-36); Mean Corpuscular Hgb 31.2 pg (27.0-32.0); Mean Corpuscular Volume 90.7 fL (81-99); Mean Platelet Vol. 10.2 fl (6.2-12.0); Monocyte# 0.58 X10^3/uL; Monocyte% 6.8 % (0-10); NRBC Flagged by Analyzer 0 % (0-5); Neutrophil # 5.76 X10^3/uL (2.7-7.7); Neutrophil % 67.7 % (47-70); Platelet Count 211 K/mm3 (150-450); RBC Distribution Width CV 13.2 % (11.6-14.6); RBC Distribution Width SD 44.4 fl (35.1-43.9); Red Blood Count 3.97 M/mm3 (4.2-5.4); White Blood Count 8.5 K/mm3 (4.4-11.0)
[2024-01-19] MEDS: 0.9% Normal Saline (1000mL) 1,000 ML 1000 ML IV (21:33)
[2024-01-19] MEDS: Famotidine 200 MG/20 ML MDV 20 MG in 0.9% Normal Saline (Pres. free 8 ML 300 MG IV (21:33)
[2024-01-19] MEDS: Ondansetron 4 MG/2 ML Vial IV (21:33)
[2024-01-19] MEDS: Morphine 2 MG/ML Syringe IV (21:33)
[2024-01-19 21:46] LABS: ALB/GLOB Ratio 0.7 RATIO (0.9-2.4); AST(SGOT) 9 U/L (15-37); Alanine Aminotransfer ALT/SGPT 11 U/L (13-56); Albumin, Serum 2.8 g/dL (3.2-5.0); Alkaline Phosphatase 115 U/L (45-117); Anion Gap 5 (5-15); BUN 33 mg/dL (7-18); BUN/Creat Ratio 35.3 RATIO (10-20); Calcium,Total 10.7 mg/dL (8.5-10.1); Chloride 107 mmol/L (98-107); Creatinine, Serum 0.94 mg/dL (0.55-1.02); EST Glomerular Filtration Rate 64 mL/min (>60); Est Glom Filt Rate - Afr Amer 78 mL/min (>60); Glucose 158 mg/dL (74-106); Potassium 4.1 mmol/L (3.5-5.1); Protein, Total 6.8 g/dL (6.4-8.2); Sodium Level 138 mmol/L (136-145)
[2024-01-19 22:38] VITALS: BP 158/78; PULSE 61; RESP 18; O2SAT 94
--- NOTE | 2024-01-19 23:41 | EX.ED.DYSGE1 ---
HPI History of Present Illness Chief Complaint: Nausea/Vomiting Detail of Chief Complaint: Patient presents with abdominal pain, nausea and vomiting. Informant: patient Onset/Context/Timing Onset: Yesterday Context: Sudden Onset Timing: Continuous Quality: Pain Location: Epigastrium Current Severity: Mild Maximum Severity: Severe Worsened by: Palpation Relieved by: Nothing Associated Symptoms Associated Symptoms: Initially dry heaves now emesis with blood Narrative Narrative: Patient is 63-year-old woman status post gastric bypass past surgery/Cristopher-en-Y. Who is a smoker. Surgery was 8 years ago. She presents with abrupt onset of abdominal pain she localizes the epigastric area associated initially with nausea and dry heaves. She then began to vomit and then was noted blood in her emesis. She denies black or maroon-colored stool. She denies headache, visual, ocular auditory symptoms. She denies cardiac or respiratory symptoms She denies intolerance to greasy or fried foods. She denies history of peptic ulcer disease. She denies dysuria, frequency, urgency or hematuria. She denies history of renal or ureterolithiasis. She is status post cholecystectomy as well as history of bilateral salpingo-oophorectomy. Prior similar symptoms: No Recent Illness/Hospitalization: No PFSH PFSH Medical History Wears glasses Post-menopausal Depression Marijuana use Neuropathy Thyroid disease Arthritis Back pain Gastric reflux Smoker Paraplegia History of stress test Personal history of Methicillin resistant Staphylococcus aureus infection Diabetes mellitus Pressure injury of sacral region, stage 4 Weight loss Positive colorectal cancer screening using Cologuard test Witnessed seizure-like activity Ulcer of left lower leg Ulcer of right lower extremity with fat layer exposed Ulcer of left lower extremity with fat layer exposed Toxic encephalopathy Wound, open, abdominal wall, anterior Current tobacco use Chest pain, unspecified Bone lesion Intractable low back pain Major depressive disorder GERD without esophagitis Chronic cluster headache, not intractable Age-related osteoporosis without current pathological fracture Primary generalized (osteo)arthritis Other intervertebral disc degeneration, lumbar region Hypothyroidism Anemia COPD (chronic obstructive pulmonary disease) Muscle weakness Spinal stenosis, lumbar region without neurogenic claudication Neuromuscular scoliosis Chronic low back pain Paraplegia Morbid obesity HTN (hypertension) HLD (hyperlipidemia) Home Medications ?Medication ?Instructions ?Recorded ?Last Taken ?Type [id number] 1 tab PO DAILY supplement 02/26/18 12/31/23 History tablet (Cerovite Senior) pantoprazole 40 mg tablet,delayed 40 mg PO BID PRN stomach 09/17/20 12/31/23 History release acetaminophen 500 mg tablet 500 mg PO Q6H PRN Pain 1-10 Or 10/08/20 12/31/23 History Fever albuterol sulfate 90 mcg/actuation 2 puff inhalation Q4H PRN PRN Sob 10/08/20 Unknown History aerosol inhaler &/Or Wheezing betamethasone valerate 0.1 % 1 applic topical BID PRN skin 01/15/21 12/31/23 Rx topical cream irritation #15 grams cetirizine 10 mg tablet 10 mg PO DAILY #30 tabs 01/15/21 12/31/23 Rx hydrocolloid dressing 4 X 4 #5 ea 09/07/21 Unknown Rx (DuoDERM CGF Adhesive Border Dressing) biotin 1 mg tablet 1 mg PO DAILY SUPPLEMENT 05/17/22 12/31/23 History calcium citrate 250 mg PO DAILY SUPPLEMENT 05/17/22 12/31/23 History cholecalciferol (vitamin D3) 25 25 mcg PO DAILY SUPPLEMENT 05/17/22 12/31/23 History mcg (1,000 unit) capsule cyanocobalamin (vitamin B-12) 1,000 mcg PO DAILY SUPPLEMENT 05/17/22 12/31/23 History 1,000 mcg tablet ferrous sulfate 325 mg (65 mg 325 mg PO DAILY SUPPLEMENT 05/17/22 12/31/23 History iron) tablet mupirocin 2 % topical ointment 1 applic topical DAILY PRN Wound 05/17/22 12/31/23 History Care gabapentin 300 mg capsule 300 mg PO BID 30 days #60 caps 05/19/22 01/01/24 Rx dextran 70-hypromellose 0.1 %-0.3 1 drp ophthalmic (eye) TID PRN dry 05/25/22 12/31/23 History % eye drops (Artificial Tears eye(s) (dextran 70-hypromellose)) ipratropium 20 mcg-albuterol 100 1 puff inhalation Q6H PRN copd 05/25/22 01/01/24 History mcg/actuation mist for inhalation (Combivent Respimat) nystatin 100,000 unit/gram topical 1 applic topical BID 10 days #30 07/08/22 12/31/23 Rx powder grams sennosides 8.6 mg tablet (Senna 8.6 mg PO .QOD STOOL 08/25/22 12/31/23 History Lax) lorazepam 0.5 mg tablet 0.5 mg PO BID PRN Anxiety 12/01/22 01/01/24 History methadone 5 mg tablet 10 mg PO BID 12/01/22 12/31/23 History naloxone 4 mg/actuation nasal 1 spray intranasal Q2M PRN opioid 12/01/22 Unknown History spray (Narcan) overdose oxycodone-acetaminophen 10 mg-325 1 tab PO Q3H PRN Pain 12/01/22 01/01/24 History mg tablet (Percocet) scopolamine base 1 mg over 3 days 1 patch transdermal Q3D PRN nausea 05/16/23 Unknown Rx transdermal patch and vomiting #10 ea lidocaine 5 % topical ointment 1 applic topical TID PRN pain #30 07/12/23 12/31/23 Rx grams levothyroxine 175 mcg tablet 175 mcg PO DAILY disorder of 12/26/23 12/31/23 History thyroid gland magnesium glycinate 100 mg (as 200 mg PO BID 12/26/23 12/31/23 History glycinate) tablet doxycycline hyclate 100 mg tablet 100 mg PO BID 14 days #28 tabs 01/02/24 Unknown Rx amoxicillin 875 mg-potassium 1 tab PO Q12H 14 days #28 tabs 01/10/24 Unknown Rx clavulanate 125 mg tablet Allergy/AdvReac Type Severity Reaction Status Date / Time NSAIDS (Non-Steroidal Allergy GASTRIC Verified 01/01/24 06:41 Anti-Inflamma BYPASS ondansetron (From Zofran) AdvReac Other Verified 01/01/24 06:41 trazodone AdvReac Other Verified 01/01/24 06:41 Family History Father Diabetes Hypertension Myocardial infarction Alcoholism Brother Myocardial infarction Alcoholism Mother CVA (cerebral vascular accident) Surgical History S/P laminectomy with spinal fusion H/O dilation and curettage History of bilateral salpingo-oophorectomy S/P arthroscopic knee surgery s/p nerve spine surgery S/P lumbar spine operation s/p upper back surgery skin graft Hydradenitis History of cholecystectomy H/O gastric bypass Social History Smoking Status: Current every day smoker tobacco type: cigarettes alcohol intake: never substance use type: does not use caffeine: Yes what type of physical activity do you participate in: none seatbelt use: always do you feel safe at home: Yes additional social history: ROS ROS ED Constitutional Constitutional ED: Denies chills, fever(s), subjective, sweats or weight loss Eyes Eyes: Denies blurry vision, change in vision or diplopia ENT ENT ED: Denies ear pain, rhinorrhea or sore throat Cardiovascular Cardiovascular: Denies chest pain, orthopnea, palpitations, paroxysmal nocturnal dyspnea or racing heartbeat Respiratory/Chest Respiratory/Chest: Denies cough, dyspnea, dyspnea on exertion, orthopnea, paroxysmal nocturnal dyspnea or sputum Gastrointestinal Gastrointestinal: Reports abdominal pain, nausea and vomiting; Denies constipation, diarrhea or melena Genitourinary Genitourinary ED: Denies dysuria, hematuria or urinary frequency Musculoskeletal Musculoskeletal: Denies arthralgias, back pain, myalgias or neck pain Integumentary Denies rash Neurologic Neurologic: Denies headache(s), paresthesias or weakness Endocrine Endocrinology: Denies cold intolerance or heat intolerance Hematologic/Lymphatic Hematologic/Lymphatic: Reports systems reviewed and no addt'l complaints, except as documented Allergic/Immunologic Allergic/Immunologic ED: Denies mouth swelling, tongue swelling or urticaria EXAM Physical Exam Const Vital Signs: 01/19/24 20:39 01/19/24 22:38 Temperature 97.0 F L Temperature Source Temporal Pulse Rate 85 61 Respiratory Rate 18 18 Blood Pressure 163/99 H 158/78 H Blood Pressure Mean 120 104 Pulse Ox 100 94 Oxygen Delivery Method Room Air Room Air Positive well nourished and well developed General Appearance ED: well developed and NAD; Negative for cyanotic, diaphoretic or pallor HEENT Reports dry mucous membranes HEENT Narrative: Head is atraumatic normocephalic. Nares patent. Posterior pharynx is normal. Mouth ED: Yes dry mucous membranes Mouth: dry mucous membranes Eyes PERRL and EOMs intact bilaterally General Eye ED: Negative for pale conjunctiva or scleral icterus Neck no lymphadenopathy, supple and no JVD Chest Wall inspection of chest normal and palpation of chest normal Resp normal respiratory effort and clear to auscultation bilaterally Cardio regular rate, regular rhythm, S1 normal heart sound, S2 normal heart sound and no murmurs GI non-distended and no masses; Negative for non-tender or hepatosplenomegaly Auscultation: hypoactive bowel sounds Palpation: soft, tender epigastric and guarding other (Epigastric.) Back/Spine no CVA tenderness Extremity normal to inspection General Extremety ED: Negative for edema or tenderness General Extremity: Negative for edema Neuro oriented x3 and no sensory deficits noted Sensorium / Orientation: alert Psych mental status grossly normal Skin no rashes or lesions noted, no wounds and No skin turgor normal General Skin Exam: Negative for jaundice or pallor MDM MDM MDM Narrative Medical decision making narrative: Patient appears much older than reported age. With abrupt onset of epigastric pain history of gastric bypass surgery with Cristopher-en-Y and the fact that she is a smoker need to rule out anastomosis breakdown. Will obtain CT of the abdomen with p.o. and IV contrast. This also may be pain of unknown etiology. Doubt choledocholithiasis since she has no jaundice or pain in the right upper quadrant. This may represent cannabis hyperemesis syndrome which she has been diagnosed with in the past. Lab Data Attestation: I reviewed the patient's lab results. Lab results narrative: CBC is normal. H&H is normal. Differential is normal. Electrolytes reveal Kos of 158 with a normal CO2 anion gap. BUN to creatinine ratio is approximately 35-1. Estimated GFR 64. Transaminases are normal. Labs: Laboratory Results - last 24 hr 01/19/24 21:21 WBC 8.5 RBC 3.97 L Hgb 12.4 Hct 36.0 L MCV 90.7 MCH 31.2 MCHC 34.4 RDW Std Deviation 44.4 H RDW Coeff of Jarrod 13.2 Plt Count 211 MPV 10.2 Immature Gran % (Auto) 0.500 Neut % (Auto) 67.7 Lymph % (Auto) 23.9 Leon % (Auto) 6.8 Eos % (Auto) 0.7 Baso % (Auto) 0.4 Absolute Neuts (auto) 5.8 Absolute Lymphs (auto) 2.03 Nucleated RBC % 0 Sodium 138 Potassium 4.1 Chloride 107 Carbon Dioxide 26.0 Anion Gap 5 BUN 33 H Creatinine 0.94 Est GFR (MDRD) Af Amer 78 Est GFR (MDRD) Non-Af 64 BUN/Creatinine Ratio 35.3 H Glucose 158 H Calcium 10.7 H Total Bilirubin 0.40 AST 9 L ALT 11 L Alkaline Phosphatase 115 Total Protein 6.8 Albumin 2.8 L Globulin 4.0 Albumin/Globulin Ratio 0.7 L Radiography Diagnostic Testing: Clinical Impression(s) from Imaging Studies Abdomen/Pelvis CT 01/19/24 21:15 IMPRESSION: 1. Diffuse wall thickening of the urinary bladder. This may be due to cystitis or muscular hypertrophy. 2. Common bile duct is dilated up to 1.3 cm and there is moderate intrahepatic biliary dilatation unchanged since the prior exam. 3. Extensive old postoperative changes in the thoracic and lumbar spine with pedicle screws and rods. Significant erosion of the L3 vertebral body. 4. Cholecystectomy. 5. Status post gastric bypass surgery. No obstruction. Electronically Signed: Feroz Corrigan MD at 23:42 EDT , Radiology report was read. Of note the common bile duct is dilated as well as moderate intrahepatic biliary dilatation. More importantly it is unchanged from prior CT. Discharge Plan Triage Chief Complaint: Nausea/Vomiting ED Provider: BrynTai Dx/Rx/DC Orders Clinical Impression: Cannabis hyperemesis syndrome concurrent with and due to cannabis abuse, Diabetes mellitus, Jayashree-Alcantara tear, Acute prerenal azotemia, Acute dehydration Instructions: Cannabinoid Hyperemesis Syndrome, Jayashree-Alcantara Tear Prescriptions: No Action [id number] [Cerovite Senior] tablet 1 tab PO DAILY betamethasone valerate 0.1 % cream 1 applic topical BID PRN (Reason: skin irritation) Qty: 15 0RF cetirizine 10 mg tablet 10 mg PO DAILY Qty: 30 0RF Artificial Tears([id number]) 0.1-0.3 % drops 1 drp ophthalmic (eye) TID PRN (Reason: dry eye(s)) Combivent Respimat 20-100 mcg/actuation mist 1 puff inhalation Q6H PRN (Reason: copd) methadone 5 mg tablet 10 mg PO BID oxycodone-acetaminophen [Percocet] 10-325 mg tablet 1 tab PO Q3H PRN (Reason: Pain) naloxone [Narcan] 4 mg/actuation spray,non-aerosol 1 spray intranasal Q2M PRN (Reason: opioid overdose) Rx Instructions: spray 1 dose into ONE nostril; alternate nostrils w each dose until help arrives lorazepam 0.5 mg tablet 0.5 mg PO BID PRN (Reason: Anxiety) pantoprazole 40 MG tablet 40 mg PO BID PRN (Reason: stomach) acetaminophen 500 MG tablet 500 mg PO Q6H PRN (Reason: Pain 1-10 Or Fever) albuterol sulfate 1 INHALER inhaler 2 puff INHALATION Q4H PRN PRN (Reason: Sob &/Or Wheezing) ferrous sulfate 325 mg (65 mg iron) Tablet 325 mg PO DAILY mupirocin 2 % ointment 1 applic TOPICAL DAILY PRN (Reason: Wound Care) Patient Comments: apply to LEG WOUNDS -- DIRECTED -- FOR 10 DAYS cholecalciferol (vitamin D3) 25 mcg (1,000 unit) Capsule 25 mcg PO DAILY biotin 1 mg Tablet 1 mg PO DAILY calcium citrate 250 mg calcium Tablet 250 mg PO DAILY cyanocobalamin (vitamin B-12) 1,000 mcg Tablet 1,000 mcg PO DAILY gabapentin 300 mg capsule 300 mg PO BID 30 Days Qty: 60 0RF sennosides [Senna Lax] 8.6 mg tablet 8.6 mg PO .QOD Patient Comments: take 1 tablet by mouth once daily nystatin 100,000 unit/gram powder 1 applic topical BID 10 Days Qty: 30 1RF Rx Instructions: to effected area levothyroxine 175 mcg tablet 175 mcg PO DAILY magnesium glycinate 100 mg tablet 200 mg PO BID doxycycline hyclate 100 mg tablet 100 mg PO BID 14 Days Qty: 28 0RF amoxicillin-pot clavulanate 875-125 mg tablet 1 tab PO Q12H 14 Days Qty: 28 0RF (DME) hydrocolloid dressing [DuoDERM CGF Border Dressing] 4 X 4 bandage See Rx Instructions .ROUTE .MEDSUPPLY Qty: 5 6RF Rx Instructions: As directed scopolamine base 1 mg over 3 days patch 3 day 1 patch transdermal Q3D PRN (Reason: nausea and vomiting) Qty: 10 2RF lidocaine 5 % ointment 1 applic topical TID PRN (Reason: pain) Qty: 30 3RF Primary Care Provider: Kevin Bah Referrals: Kevin Bah MD [Primary Care Provider] - 3-5 Days if not improving Print Language: Afghan Disposition Disposition: Home, Self Care
[2024-01-19 23:57] VITALS: BP 144/93; PULSE 64; RESP 18; TEMP 36.6; O2SAT 99
[2024-01-20] VITALS: BP 144/93; PULSE 64; RESP 18; TEMP 36.6; O2SAT 99
[2024-01-20] MEDS: Ondansetron ODT 4 MG Tablet PO (01:14)
== END 2024-01-20 02:27 | disposition home or self-care (01) ==
PROVIDERS: Emergency Provider Emergency Medicine; PCP Internal Medicine; Visit Provider Emergency Medicine
DX: F12.188 Cannabis abuse with other cannabis-induced disorder (principal); J44.9 Chronic obstructive pulmonary disease, unspecified; E11.40 Type 2 diabetes mellitus with diabetic neuropathy, unspecified; K22.6 Gastro-esophageal laceration-hemorrhage syndrome; E86.0 Dehydration; R79.89 Other specified abnormal findings of blood chemistry; F17.210 Nicotine dependence, cigarettes, uncomplicated; Z79.51 Long term (current) use of inhaled steroids; Z79.899 Other long term (current) drug therapy
CPT/HCPCS: 74177; 80053; 85025; 96365; 96375; 96376; 99283; J7030; Q9967; A4216; J2405; J3490

== ENCOUNTER 2024-02-07 13:30 | Outpatient (RCR) | payer MEDICARE, MEDICAID, SELFPAY ==
[2024-01-22 00:41] VITALS: BP 140/77; PULSE 87; RESP 18; TEMP 35.7
[2024-01-31 13:23] VITALS: BP 79/56; RESP 18; TEMP 35.7
[2024-01-31 14:12] VITALS: BP 115/62; PULSE 92
--- NOTE | 2024-01-31 14:54 | PN.PCM_ITS ---
History of Present Illness Date of Service: 01/31/24 Chief Complaint: Sacral ulcer History of Wound: Patient is a 63 year old female who previously was a patient here and known to me, but had back surgery in early September 2022 at [facility] and then went to rehab at [place] after that. She had a aurelia replaced in her back. Before her surgery, she was not able to lie flat due to increased pain, so she spent most of her time in her wheelchair. Now since her surgery, she is in too much back pain to sit in her wheelchair. She presents today with an ulcer to her sacrum. She was in the ED on 12/10/22 for increased wound drainage and was treated with Keflex, which she has completed. She does have home health to assist with dressing changes. She has lost 100 lbs since last being here in early September. Wound culture 12/26/22 positive for Proteus mirabilis, Enterococcus faecalis, Streptococcus agalactiae, Anaerobic cocci and Bacteroides fragilis. She was treated with Augmentin. Wound culture from 01/23/23 was positive for MRSA and Morganella morganii. The MRSA was treated with Doxycycline. Wound culture 04/03/23 positive for Proteus mirabilis, Enterococcus faecalis, and Anaerobic cocci. She was treated with Augmentin. Wound culture from 07/03/23 positive for Proteus mirabilis and Enterococcus fa ecalis which was treated with Augmentin. Wound culture was done on 08/23/23. It was negative. She had CT Pelvis on 09/20/23. It showed evidence of tissue defect in the medial aspect of the right buttock abutting the distal sacrum. This most likely represents an ulcerated pressure ulcer. Normal urinary bladder. Normal visualized small intestine. Moderate amount of fecal material is seen in the colon. There is no pelvic fluid. There is no pelvic mass lesion or lymphadenopathy. There is diffuse atherosclerotic calcification of the pelvic arteries. Phleboliths are seen in the pelvis. Normal abdominal wall. Extensive metallic streak artifacts due to fusion with intrapedicular screw and aurelia fixation the lower lumbar spine. Surgery 01/01/24 - Excision sacral pressure sore, Stage IV, with partial ostectomy for osteomyelitis. Pathology of sacral bone consistent with chronic osteomyelitis. Soft tissue and skin of sacral region showed ulceration with associated acute and chronic inflammation and granulation. Operative bone culture from 01/01/24 positive for Staphylococcus haemolyticus. She will be treated for 6 weeks for positive bone cultures. Operative tissue culture from 01/01/24 positive for Corynebacterium striatum, Strep anginosus, Prevotella disiens, and Anaerobic cocci. She will be treated with Doxycycline and Augmentin. Today she denies fever. Her appetite is ok. Progress of Wound: Left sacral ulcer has bone exposure. No active bleeding, ulcer is slightly smaller. There continues to be some undermining in the 9-12 o'clock region. She states that her pain is worse when she has the wound VAC on. Her kimani wound is clear with no excoriation. Objective Data Objective Data Vital Signs: Vital Signs Temp Pulse Resp BP O2 Del Method 96.2 F L 92 18 115/62 Room Air 01/31/24 13:23 01/31/24 14:12 01/31/24 13:23 01/31/24 14:12 01/31/24 13:23 Oxygen Delivery Method Room Air Charges/Coding Procedures Integumentary [id number]: [id number] Global Visit Debridement Note Debridement Note Wound debrided: #14 Sacral area. Laterality: Not Applicable Wound Grade/Stage: IV. Type of Debridement: Excisional debridement Anesthesia Used: 5% Lidocaine Gel Depth: Down to and including healthy tissue, in the subcutaneous layer, to muscle and to bone (bone is exposed but not debrided.) Percentage of wound debrided: 100 Instrument Used: 7mm curette Tissue Removed: subcutaneous tissue, senescent cells, devitalized tissue and muscle. Severity: Fat Layer Exposed (muscle is exposed. bone is palpable but not exposed.) Amount of bleeding with debridement: Mild Bleeding Controlled with: Pressure and Compression and gauze Patient tolerated procedure: Patient tolerated procedure well Debridement Free Text: Bone exposed but not debrided. Post-Debridement Measurements and Additional Note: Post-Debridement Measurements/Treatment WC - Nurse 1 - General Ulcer Assessment Start: 01/31/24 13:22 Freq: Status: Active Protocol: TAISHA Activity Type Activity Date Activity User E-sign Co-sign Detail Recorded Client Recorded Date Recorded By Document 01/31/24 13:23 BMF 25.7 01/31/24 13:37 BMF Document 01/31/24 14:12 BMF [id number] 01/31/24 14:13 BMF 01/31/24 01/31/24 13:23 14:12 - Today's Visit Information Type of service Follow-up Visit (Physician/[facility] ) Arrival Mode Wheelchair Transfer Assistance Manual Patient Identification Verified (Name & Yes ) Vital Signs Temperature (97.8 F-99.1 F) 96.2 F L Temperature Source Temporal Pulse Rate (60-100) 92 Pulse Location Monitor Monitor Respiratory Rate (12-18) 18 Respiratory rate source Observation Oxygen Delivery Method Room Air Blood Pressure (90/60-120/80) 79/56 L 115/62 Blood Pressure Mean (mm Hg) 63 79 Source Monitor Monitor Position Sitting Sitting Blood Pressure Location Left Arm Left Arm Comment WILL RECHK AT BP RECHK END OF VISIT AND 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 Any new allergies or adverse reactions No Had a fall/change in ADL's that may No increase risk of falls Signs or symptoms of abuse and/or No neglect since last visit Have you been in the hospital since your No last visit? Has dressing in place as prescribed Yes Has compression in place as prescribed N/A Has offloadiing in place as prescribed N/A Experienced any changes in pain level or No management Left Footwear Slipper Right Footwear Slipper Pain Scale: 0-10 Numeric Is Patient Pain Free? Yes Yes - Nurse 1 - General Ulcer Measurement Start: 01/31/24 13:22 Freq: Status: Active Protocol: Activity Type Activity Date Activity User E-sign Co-sign Detail Recorded Client Recorded Date Recorded By Document 01/31/24 13:23 [facility] [id number] 01/31/24 13:37 [facility] 01/31/24 13:23 Wound Center Nurse 1 #14- L SACRAL POST OP -Combined with other wound No -Current Size (cm) - Length 7.8 -Current Size (cm) - Width 4.7 -Current Size (cm) - Depth 1.5 -Total Square Cm 36.66 -Date of Last Picture (Recall this 01/31/24 field) -Photo Taken Yes -Epithelialization Small 1-33% -Tunneling No -Undermining/Tunneling Yes -Undermining/Tunneling Starts (O'clock 8 ) -Undermining/Tunneling Ends (O'clock) 11 -Maximum Distance (cm) 3 -Circular Undermining No -Exudate Amt Large -Exudate Type Serosanguineous -Wound Margin Distinct, Outline Attached -Granulation Amt Large (67-100%) -Granulation Quality Red -Slough/Fibrin Yes -Necrosis Amt Small (1-33%) -Necrotic Tissue Type Adherent Slough -Structure Exposed Bone -Texture (Kimani-wound Skin Appearance) Assessed -Moisture (Kimani-wound Skin Appearance) Assessed -Color (Kimani-wound Skin Appearance) Assessed -Temperature (Kimani-wound Skin No Abnormality Appearance) (Pt Warm) -Tenderness on Palpation (Kimani-wound No Skin Appearance) -Ulcer Cleansing Soap and Water -Foul Odor after Cleansing No -Anesthetic Used 4% Lidocaine Solution WC - Nurse 2 - General Ulcer CM Notes Start: 01/31/24 13:22 Freq: Status: Active Protocol: Activity Type Activity Date Activity User E-sign Co-sign Detail Recorded Client Recorded Date Recorded By Document 01/31/24 13:44 GM 01/31/24 13:51 GM 01/31/24 13:44 Wound Center Nurse 2 -Time 13:47 -Correct Patient Yes -Correct Side, Site, Position Yes -Correct Procedure Yes -Procedure Performed Yes -Type of Procedure Debridement -Clinical Debridement Muscle / Fascia -Tissue Removed Muscle -Post Debridement (cm) - Length 8 -Post Debridement (cm) - Width 5.5 -Post Debridement (cm) - Depth 9 -Total Square (Post) (cm) 44.0 -Area of Debridement (cm) - Length 8 -Area of Debridement (cm) - Width 5.5 -Total Square (Area) (cm) 44.0 -Tunneling No -Undermining/Tunneling Yes -Undermining/Tunneling Starts (O'clock 9 ) -Undermining/Tunneling Ends (O'clock) 12 -Maximum Distance (cm) 2.5 -Circular Undermining No -Wound/Ulcer Outcome Not Healed -Ulcer Cleansing Rinsed/ Irrigated with Saline -Foul Odor after Cleansing No -Bioengineered Tissue No -Bleeding Controlled with Pressure -Treatment Response Procedure Tolerated Well -Debridement - Muscle / Fascia, 1st Yes 20sq cm -Debridement, Muscle/Fascia, ea addt'l 2 20sq cm or part thereof Pain Scale: 0-10 Numeric Is Patient Pain Free? Yes - Nurse 3 - General Ulcer D/C NN Start: 01/31/24 13:22 Freq: Status: Active Protocol: Activity Type Activity Date Activity User E-sign Co-sign Detail Recorded Client Recorded Date Recorded By Document 01/31/24 13:53 GM 01/31/24 13:54 GM 01/31/24 13:53 Wound Care Center Nurse 3 #14- L SACRAL POST OP -Ulcer Cleansing Not Cleansed -Foul Odor after Cleansing No -Negative Pressure Wound Therapy Continue -Setting (mmHg) 150 -Negative Pressure is Continuous -NPWT Application Charge NPWT </= 50 sq cm ($) Pain Scale: 0-10 Numeric Is Patient Pain Free? Yes Teaching: Wound Center Wound vac -Person Taught Patient -Teaching Method Discussion -Response to teaching Verbalize understanding WC - Visit Discharge Discharge Condition Stable Ambulatory Status Wheelchair Transportation Private Auto Clinical Summary of Care Provided Yes Assessment/Plan Assessment/Plan (1) Pressure injury of sacral region, stage 4: CODE(S): L89.154 - Pressure ulcer of sacral region, stage 4 (2) Osteomyelitis of sacrum: CODE(S): M46.28 - Osteomyelitis of vertebra, sacral and sacrococcygeal region (3) Diabetes mellitus: CODE(S): E11.9 - Type 2 diabetes mellitus without complications (4) Tobacco use disorder: CODE(S): F17.200 - Nicotine dependence, unspecified, uncomplicated (5) Paraplegia: CODE(S): G82.20 - Paraplegia, unspecified (6) Smoker: CODE(S): F17.200 - Nicotine dependence, unspecified, uncomplicated PLAN: Plan Wound care - Wound VAC 150 mmHg to be changed 3 times per week. No adaptic over the bone. Wash ulcer and kimani wound with soap and water at the time of the dressing change. Surgery 01/01/24 - Excision sacral pressure sore, Stage IV, with partial ostectomy for osteomyelitis. Pathology of sacral bone consistent with chronic osteomyelitis. Soft tissue and skin of sacral region showed ulceration with associated acute and chronic inflammation and granulation. Operative bone culture from 01/01/24 positive for Staphylococcus haemolyticus. She will be treated for 6 weeks for positive bone cultures. Operative tissue culture from 01/01/24 positive for Corynebacterium striatum, Strep anginosus, Prevotella disiens, and Anaerobic cocci. She will be treated with Doxycycline and Augmentin. Wound culture 12/26/22 positive for Proteus miriabilis, Enterococcus faecalis, Streptococcus agalactiae, Anaerobic cocci and Bacteroides fragilis. She was treated with Augmentin. Wound culture from 01/23/23 was positive for MRSA and Morganella morganii. MRSA was treated with Doxycycline. Wound culture 04/03/23 positive for Proteus mirabilis, Enterococcus faecalis, and Anaerobic cocci. She is being treated with Augmentin. Wound culture from 07/03/23 positive for Proteus mirabilis and Enterococcus faecalis which was treated with Augmentin. A wound culture was obtained on 08/23/23. It was negative. CT Pelvis was done on 09/20/23. It showed evidence of tissue defect in the medial aspect of the right buttock abutting the distal sacrum. This most likely represents an ulcerated pressure ulcer. Normal urinary bladder. Normal visualized small intestine. Moderate amount of fecal material is seen in the colon. There is no pelvic fluid. There is no pelvic mass lesion or lymphadenopathy. There is diffuse atherosclerotic calcification of the pelvic arteries. Phleboliths are seen in the pelvis. Normal abdominal wall. Extensive metallic streak artifacts due to fusion with intrapedicular screw and aurelia fixation the lower lumbar spine. Follow up one week.
[2024-02-07 13:57] VITALS: BP 87/56; PULSE 97; RESP 18; TEMP 36.1
--- NOTE | 2024-02-07 15:18 | PN.PCM_ITS ---
History of Present Illness Date of Service: 02/07/24 Chief Complaint: Sacral ulcer History of Wound: Patient is a 63 year old female who previously was a patient here and known to me, but had back surgery in early September 2022 at [facility] and then went to rehab at [place] after that. She had a aurelia replaced in her back. Before her surgery, she was not able to lie flat due to increased pain, so she spent most of her time in her wheelchair. Now since her surgery, she is in too much back pain to sit in her wheelchair. She presents today with an ulcer to her sacrum. She was in the ED on 12/10/22 for increased wound drainage and was treated with Keflex, which she has completed. She does have home health to assist with dressing changes. She has lost 100 lbs since last being here in early September. Wound culture 12/26/22 positive for Proteus mirabilis, Enterococcus faecalis, Streptococcus agalactiae, Anaerobic cocci and Bacteroides fragilis. She was treated with Augmentin. Wound culture from 01/23/23 was positive for MRSA and Morganella morganii. The MRSA was treated with Doxycycline. Wound culture 04/03/23 positive for Proteus mirabilis, Enterococcus faecalis, and Anaerobic cocci. She was treated with Augmentin. Wound culture from 07/03/23 positive for Proteus mirabilis and Enterococcus fa ecalis which was treated with Augmentin. Wound culture was done on 08/23/23. It was negative. She had CT Pelvis on 09/20/23. It showed evidence of tissue defect in the medial aspect of the right buttock abutting the distal sacrum. This most likely represents an ulcerated pressure ulcer. Normal urinary bladder. Normal visualized small intestine. Moderate amount of fecal material is seen in the colon. There is no pelvic fluid. There is no pelvic mass lesion or lymphadenopathy. There is diffuse atherosclerotic calcification of the pelvic arteries. Phleboliths are seen in the pelvis. Normal abdominal wall. Extensive metallic streak artifacts due to fusion with intrapedicular screw and aurelia fixation the lower lumbar spine. Surgery 01/01/24 - Excision sacral pressure sore, Stage IV, with partial ostectomy for osteomyelitis. Pathology of sacral bone consistent with chronic osteomyelitis. Soft tissue and skin of sacral region showed ulceration with associated acute and chronic inflammation and granulation. Operative bone culture from 01/01/24 positive for Staphylococcus haemolyticus. She will be treated for 6 weeks for positive bone cultures. Operative tissue culture from 01/01/24 positive for Corynebacterium striatum, Strep anginosus, Prevotella disiens, and Anaerobic cocci. She will be treated with Doxycycline and Augmentin. Today she denies fever. Her appetite is ok. Progress of Wound: Left sacral ulcer has bone exposure. No active bleeding, ulcer is slightly smaller. There continues to be some undermining in the 9-12 o'clock region. She states that her pain is worse when she has the wound VAC on. Her kimani wound is clear with no excoriation. She is requesting an wound VAC holiday for a week due to how much pain she states she is having. Objective Data Objective Data Vital Signs: Vital Signs Temp Pulse Resp BP O2 Del Method 97 F L 97 18 87/56 L Room Air 02/07/24 13:57 02/07/24 13:57 02/07/24 13:57 02/07/24 13:57 02/07/24 13:57 Oxygen Delivery Method Room Air Charges/Coding Procedures Integumentary [id number]: [id number] Global Visit Debridement Note Debridement Note Wound debrided: #14 Sacral area. Laterality: Not Applicable Wound Grade/Stage: IV. Type of Debridement: Excisional debridement Anesthesia Used: 5% Lidocaine Gel Depth: Down to and including healthy tissue, in the subcutaneous layer, to muscle and to bone (bone is exposed but not debrided.) Percentage of wound debrided: 100 Instrument Used: 7mm curette Tissue Removed: subcutaneous tissue, senescent cells, devitalized tissue and muscle. Severity: Fat Layer Exposed (muscle is exposed. bone is palpable but not exposed.) Amount of bleeding with debridement: Mild Bleeding Controlled with: Pressure and Compression and gauze Patient tolerated procedure: Patient tolerated procedure well Debridement Free Text: Bone exposed but not debrided. Post-Debridement Measurements and Additional Note: Post-Debridement Measurements/Treatment WC - Nurse 1 - General Ulcer Assessment Start: 01/31/24 13:22 Freq: Status: Active Protocol: TAISHA Activity Type Activity Date Activity User E-sign Co-sign Detail Recorded Client Recorded Date Recorded By Document 01/31/24 13:23 [facility] [id number] 01/31/24 13:37 [facility] Document 01/31/24 14:12 [facility] [id number] 01/31/24 14:13 [facility] Document 02/07/24 13:57 [id number] 02/07/24 14:06 [place] 01/31/24 01/31/24 02/07/24 13:23 14:12 13:57 - Today's Visit Information Type of service Follow-up Visit Follow-up Visit (Physician/MANAGER AVIATION (Physician/MANAGER AVIATION ) ) Arrival Mode Wheelchair Wheelchair Transfer Assistance Manual Accompanied by self Patient Identification Verified (Name & Yes Yes ) Safety Precautions Fall Prevention Vital Signs Temperature (97.8 F-99.1 F) 96.2 F L 97 F L Temperature Source Temporal Temporal Pulse Rate (60-100) 92 97 Pulse Location Monitor Monitor Monitor Respiratory Rate (12-18) 18 18 Respiratory rate source Observation Observation Oxygen Delivery Method Room Air Room Air Blood Pressure (90/60-120/80) 79/56 L 115/62 87/56 L Blood Pressure Mean (mm Hg) 63 79 66 Source Monitor Monitor Monitor Position Sitting Sitting Sitting Blood Pressure Location Left Arm Left Arm Left Arm Comment WILL RECHK AT BP RECHK END OF VISIT AND NOTIFY [employer]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 Any new allergies or adverse reactions No Had a fall/change in ADL's that may No increase risk of falls Signs or symptoms of abuse and/or No neglect since last visit Have you been in the hospital since your No last visit? Has dressing in place as prescribed Yes Yes Has compression in place as prescribed N/A Yes Has offloadiing in place as prescribed N/A Yes Experienced any changes in pain level or No Yes management Left Footwear Slipper Regular Shoe Right Footwear Slipper Regular Shoe Pain Scale: 0-10 Numeric Is Patient Pain Free? Yes Yes Yes - Nurse 1 - General Ulcer Measurement Start: 01/31/24 13:22 Freq: Status: Active Protocol: Activity Type Activity Date Activity User E-sign Co-sign Detail Recorded Client Recorded Date Recorded By Document 01/31/24 13:23 [facility] [email or web address] 01/31/24 13:37 [facility] Document 02/07/24 13:57 [id number] 02/07/24 14:06 [place] 01/31/24 02/07/24 13:23 13:57 Wound Center Nurse 1 #14- L SACRAL POST OP -Combined with other wound No -Current Size (cm) - Length 7.8 8.2 -Current Size (cm) - Width 4.7 4.5 -Current Size (cm) - Depth 1.5 2.0 -Total Square Cm 36.66 36.90 -Date of Last Picture (Recall this 01/31/24 field) -Photo Taken Yes -Epithelialization Small 1-33% -Tunneling No -Undermining/Tunneling Yes Yes -Undermining/Tunneling Starts (O'clock 8 12 ) -Undermining/Tunneling Ends (O'clock) 11 12 -Maximum Distance (cm) 3 -Undermining/Tunneling Starts #2 (O' 8 clock) -Maximum Distance #2 (cm) 3 -Circular Undermining No -Exudate Amt Large Medium -Exudate Type Serosanguineous Serosanguineous -Wound Margin Distinct, Fibrotic Scar, Outline Thickened Scar Attached -Granulation Amt Large (67-100%) Medium (34-66%) -Granulation Quality Red Pale,[place] -Slough/Fibrin Yes -Necrosis Amt Small (1-33%) Medium (34-66%) -Necrotic Tissue Type Adherent Slough Eschar -Structure Exposed Bone Bone -Texture (Kimani-wound Skin Appearance) Assessed Assessed, Induration -Moisture (Kimani-wound Skin Appearance) Assessed Assessed, Maceration -Color (Kimani-wound Skin Appearance) Assessed Assessed, Erythema -Temperature (Kimani-wound Skin No Abnormality No Abnormality Appearance) (Pt Warm) (Pt Warm) -Tenderness on Palpation (Kimani-wound No No Skin Appearance) -Ulcer Cleansing Soap and Water Soap and Water -Foul Odor after Cleansing No No -Anesthetic Used 4% Lidocaine 5% Lidocaine Solution Gel Lower Limb Edema Present NA WC - Nurse 2 - General Ulcer CM Notes Start: 01/31/24 13:22 Freq: Status: Active Protocol: Activity Type Activity Date Activity User E-sign Co-sign Detail Recorded Client Recorded Date Recorded By Document 01/31/24 13:44 [facility] 01/31/24 13:51 [facility] Document 02/07/24 14:28 [facility] [email or web address] 02/07/24 14:37 [facility] 01/31/24 02/07/24 13:44 14:28 Wound Center Nurse 2 #14- L SACRAL POST OP -Time 13:47 14:29 -Correct Patient Yes Yes -Correct Side, Site, Position Yes Yes -Correct Procedure Yes Yes -Procedure Performed Yes Yes -Type of Procedure Debridement Debridement -Clinical Debridement Muscle / Fascia Muscle / Fascia -Tissue Removed Muscle Muscle -Post Debridement (cm) - Length 8 7.5 -Post Debridement (cm) - Width 5.5 6 -Post Debridement (cm) - Depth 9 1.4 -Total Square (Post) (cm) 44.0 45.0 -Area of Debridement (cm) - Length 8 7.5 -Area of Debridement (cm) - Width 5.5 6 -Total Square (Area) (cm) 44.0 45.0 -Tunneling No -Undermining/Tunneling Yes Yes -Undermining/Tunneling Starts (O'clock 9 9 ) -Undermining/Tunneling Ends (O'clock) 12 12 -Maximum Distance (cm) 2.5 2.7 -Circular Undermining No -Wound/Ulcer Outcome Not Healed Not Healed -Ulcer Cleansing Rinsed/ Rinsed/ Irrigated with Irrigated with Saline Saline -Foul Odor after Cleansing No No -Bioengineered Tissue No No -Bleeding Controlled with Pressure Pressure -Treatment Response Procedure Procedure Tolerated Well Tolerated Well -Offloading Yes -Type of Offloading Other -Other Type of Offloading WILL APPLY FOR AIR MATTRESS -Debridement - Muscle / Fascia, 1st Yes Yes 20sq cm -Debridement, Muscle/Fascia, ea addt'l 2 1 20sq cm or part thereof Pain Scale: 0-10 Numeric Is Patient Pain Free? Yes Yes - Nurse 3 - General Ulcer D/C NN Start: 01/31/24 13:22 Freq: Status: Active Protocol: Activity Type Activity Date Activity User E-sign Co-sign Detail Recorded Client Recorded Date Recorded By Document 01/31/24 13:53 [facility] 01/31/24 13:54 Document 02/07/24 15:01 [facility] [id number] 02/07/24 15:02 [facility] 01/31/24 02/07/24 13:53 15:01 Wound Care Center Nurse 3 #14- L SACRAL POST OP -Ulcer Cleansing Not Cleansed -Foul Odor after Cleansing No -Negative Pressure Wound Therapy Continue -Setting (mmHg) 150 -Negative Pressure is Continuous -Primary Dressing Applied Mepilex Border -Other Dressing dakins -NPWT Application Charge NPWT </= 50 sq cm ($) -Mepilex Border 1 Pain Scale: 0-10 Numeric Is Patient Pain Free? Yes Yes Teaching: Wound Center Wound vac -Person Taught Patient -Teaching Method Discussion -Response to teaching Verbalize understanding WC - Visit Discharge Discharge Condition Stable Stable Ambulatory Status Wheelchair Wheelchair Transportation Private Auto Private Auto Medication Reconcilliation completed & No provided to patient/care provider Clinical Summary of Care Provided Yes Yes Notes: restart vac Assessment/Plan Assessment/Plan (1) Pressure injury of sacral region, stage 4: CODE(S): L89.154 - Pressure ulcer of sacral region, stage 4 (2) Osteomyelitis of sacrum: CODE(S): M46.28 - Osteomyelitis of vertebra, sacral and sacrococcygeal region (3) Diabetes mellitus: CODE(S): E11.9 - Type 2 diabetes mellitus without complications (4) Tobacco use disorder: CODE(S): F17.200 - Nicotine dependence, unspecified, uncomplicated (5) Paraplegia: CODE(S): G82.20 - Paraplegia, unspecified (6) Smoker: CODE(S): F17.200 - Nicotine dependence, unspecified, uncomplicated PLAN: Plan Wound care - Wound VAC holiday for one week. Will do daily Dakin's 0.25% moistened gauze topped with ABD. in one week, 02/14/24 home health can restart the wound VAC 150 mmHg to be changed 3 times per week. No adaptic over the bone. Wash ulcer and kimani wound with soap and water at the time of the dressing change. She may place the lidocaine gel she has on the kimani wound to help with her discomfort while doing the Dakin's dressing changes. Instructed her NOT to place lidocaine gel in her ulcer. Surgery 01/01/24 - Excision sacral pressure sore, Stage IV, with partial ostectomy for osteomyelitis. Pathology of sacral bone consistent with chronic osteomyelitis. Soft tissue and skin of sacral region showed ulceration with associated acute and chronic infl ammation and granulation. Operative bone culture from 01/01/24 positive for Staphylococcus haemolyticus. She will be treated for 6 weeks for positive bone cultures. Operative tissue culture from 01/01/24 positive for Corynebacterium striatum, Strep anginosus, Prevotella disiens, and Anaerobic cocci. She will be treated with Doxycycline and Augmentin. Wound culture 12/26/22 positive for Proteus miriabilis, Enterococcus faecalis, Streptococcus agalactiae, Anaerobic cocci and Bacteroides fragilis. She was treated with Augmentin. Wound culture from 01/23/23 was positive for MRSA and Morganella morganii. MRSA was treated with Doxycycline. Wound culture 04/03/23 positive for Proteus mirabilis, Enterococcus faecalis, and Anaerobic cocci. She is being treated with Augmentin. Wound culture from 07/03/23 positive for Proteus mirabilis and Enterococcus faecalis which was treated with Augmentin. A wound culture was obtained on 08/23/23. It was negative. CT Pelvis was done on 09/20/23. It showed evidence of tissue defect in the medial aspect of the right buttock abutting the distal sacrum. This most likely represents an ulcerated pressure ulcer. Normal urinary bladder. Normal vis ualized small intestine. Moderate amount of fecal material is seen in the colon. There is no pelvic fluid. There is no pelvic mass lesion or lymphadenopathy. There is diffuse atherosclerotic calcification of the pelvic arteries. Phleboliths are seen in the pelvis. Normal abdominal wall. Extensive metallic streak artifacts due to fusion with intrapedicular screw and aurelia fixation the lower lumbar spine. She states she has a new hospital bed but needs a low air loss mattress. Will order the mattress for her. Follow up two weeks.
== END 2024-02-21 23:59 | disposition home or self-care (01) ==
LOC: WC 13:30
PROVIDERS: PCP Internal Medicine; Referring Provider Obstetrics & Gynecology; Visit Provider Nurse Practitioner Family
DX: L89.154 Pressure ulcer of sacral region, stage 4 (principal); G82.20 Paraplegia, unspecified; E11.9 Type 2 diabetes mellitus without complications; F17.200 Nicotine dependence, unspecified, uncomplicated
CPT/HCPCS: 11043; 11046; 97605

== ENCOUNTER 2024-03-20 13:30 | Outpatient (RCR) | payer MEDICARE, MEDICAID, SELFPAY ==
[2024-02-22 00:21] VITALS: BP 140/77; PULSE 87; RESP 18; TEMP 35.7
[2024-02-28 13:43] VITALS: BP 137/85; PULSE 92; RESP 18; TEMP 36
--- NOTE | 2024-02-28 15:28 | PCM.WC.PN ---
History of Present Illness Date of Service: 02/28/24 Chief Complaint: Sacral ulcer History of Wound: Patient is a 63 year old female who previously was a patient here and known to me, but had back surgery in early September 2022 at [facility] and then went to rehab at [facility] after that. She had a aurelia replaced in her back. Before her surgery, she was not able to lie flat due to increased pain, so she spent most of her time in her wheelchair. Now since her surgery, she is in too much back pain to sit in her wheelchair. She presents today with an ulcer to her sacrum. She was in the ED on 12/10/22 for increased wound drainage and was treated with Keflex, which she has completed. She does have home health to assist with dressing changes. She has lost 100 lbs since last being here in early September. Wound culture 12/26/22 positive for Proteus mirabilis, Enterococcus faecalis, Streptococcus agalactiae, Anaerobic cocci and Bacteroides fragilis. She was treated with Augmentin. Wound culture from 01/23/23 was positive for MRSA and Morganella morganii. The MRSA was treated with Doxycycline. Wound culture 04/03/23 positive for Proteus mirabilis, Enterococcus faecalis, and Anaerobic cocci. She was treated with Augmentin. Wound culture from 07/03/23 positive for Proteus mirabilis and Enterococcus faecalis which was treated with Augmentin. Wound culture was done on 08/23/23. It was negative. She had CT Pelvis on 09/20/23. It showed evidence of tissue defect in the medial aspect of the right buttock abutting the distal sacrum. This most likely represents an ulcerated pressure ulcer. Normal urinary bladder. Normal visualized small intestine. Moderate amount of fecal material is seen in the colon. There is no pelvic fluid. There is no pelvic mass lesion or lymphadenopathy. There is diffuse atherosclerotic calcification of the pelvic arteries. Phleboliths are seen in the pelvis. Normal abdominal wall. Extensive metallic streak artifacts due to fusion with intrapedicular screw and aurelia fixation the lower lumbar spine. Surgery 01/01/24 - Excision sacral pressure sore, Stage IV, with partial ostectomy for osteomyelitis. Pathology of sacral bone consistent with chronic osteomyelitis. Soft tissue and skin of sacral region showed ulceration with associated acute and chronic inflammation and granulation. Operative bone culture from 01/01/24 positive for Staphylococcus haemolyticus. She will be treated for 6 weeks for positive bone cultures. Operative tissue culture from 01/01/24 positive for Corynebacterium striatum, Strep anginosus, Prevotella disiens, and Anaerobic cocci. She will be treated with Doxycycline and Augmentin. Today she denies fever. Her appetite is ok. Progress of Wound: Patient has been having increased pain with the wound VAC. She has only had it on a week since having her wound VAC holiday. She states that she almost went to the ED yesterday because her pain was so severe. Left sacral ulcer has bone exposure. No active bleeding, ulcer is slightly smaller. There continues to be some undermining in the 9-12 o'clock region. Her vivi wound is clear with no excoriation. Objective Data Objective Data Vital Signs: Vital Signs Temp Pulse Resp BP O2 Del Method 96.8 F L 92 18 137/85 H Room Air 02/28/24 13:43 02/28/24 13:43 02/28/24 13:43 02/28/24 13:43 02/28/24 13:43 Oxygen Delivery Method Room Air Charges/Coding Procedures Integumentary [id number]: [id number] Global Visit Debridement Note Debridement Note Wound debrided: #14 Sacral area. Laterality: Not Applicable Wound Grade/Stage: IV. Type of Debridement: Excisional debridement Anesthesia Used: 5% Lidocaine Gel Depth: Down to and including healthy tissue, in the subcutaneous layer, to muscle and to bone (bone is exposed but not debrided.) Percentage of wound debrided: 100 Instrument Used: 7mm curette Tissue Removed: subcutaneous tissue, senescent cells, devitalized tissue and muscle. Severity: Fat Layer Exposed (muscle is exposed. bone is palpable but not exposed.) Amount of bleeding with debridement: Mild Bleeding Controlled with: Pressure and Compression and gauze Patient tolerated procedure: Patient tolerated procedure well Debridement Free Text: Bone exposed but not debrided. Post-Debridement Measurements and Additional Note: Post-Debridement Measurements/Treatment SCOTTY - Nurse 1 - General Ulcer Assessment Start: 02/28/24 13:42 Freq: Status: Active Protocol: TAISHA Activity Type Activity Date Activity User E-sign Co-sign Detail Recorded Client Recorded Date Recorded By Document 02/28/24 13:43 DS 1 02/28/24 13:43 DS 02/28/24 13:43 - Today's Visit Information Type of service Follow-up Visit (Physician/SHIRT FOLDER ) Arrival Mode Wheelchair Transfer Assistance Transfer Board Safety Precautions Fall Prevention Vital Signs Temperature (97.8 F-99.1 F) 96.8 F L Temperature Source Temporal Pulse Rate (60-100) 92 Pulse Location Monitor Respiratory Rate (12-18) 18 Respiratory rate source Observation Oxygen Delivery Method Room Air Blood Pressure (90/60-120/80) 137/85 H Blood Pressure Mean (mm Hg) 102 Source Monitor Position Sitting Blood Pressure Location Right Arm History Since Last Visit- (Skip if this is Patient's initial visit) Have you changed medications since your No last visit? Any new allergies or adverse reactions No Had a fall/change in ADL's that may No increase risk of falls Signs or symptoms of abuse and/or No neglect since last visit Have you been in the hospital since your No last visit? Has dressing in place as prescribed Yes Has compression in place as prescribed N/A Has offloadiing in place as prescribed Yes Experienced any changes in pain level or No management Left Footwear Regular Shoe Right Footwear Regular Shoe Pain Scale: 0-10 Numeric Is Patient Pain Free? Yes - Nurse 1 - General Ulcer Measurement Start: 02/28/24 13:42 Freq: Status: Active Protocol: Activity Type Activity Date Activity User E-sign Co-sign Detail Recorded Client Recorded Date Recorded By Document 02/28/24 13:50 DS 1 02/28/24 13:52 DS 02/28/24 13:50 Wound Center Nurse 1 #14- L SACRAL POST OP -Combined with other wound No -Current Size (cm) - Length 7.2 -Current Size (cm) - Width 4.2 -Current Size (cm) - Depth 1.8 -Total Square Cm 30.24 -Tunneling No -Undermining/Tunneling Yes -Undermining/Tunneling Starts (O'clock 6 ) -Undermining/Tunneling Ends (O'clock) 12 -Maximum Distance (cm) 3.2 -Circular Undermining No -Exudate Amt Large -Exudate Type Serosanguineous -Wound Margin Thickened & Rolled Under -Granulation Amt Large (67-100%) -Granulation Quality Virgil,Red -Slough/Fibrin Yes -Necrosis Amt Small (1-33%) -Necrotic Tissue Type Adherent Slough -Structure Exposed N/A -Texture (Vivi-wound Skin Appearance) Assessed, Scarring -Moisture (Vivi-wound Skin Appearance) Assessed -Color (Vivi-wound Skin Appearance) Assessed -Temperature (Vivi-wound Skin No Abnormality Appearance) (Pt Warm) -Tenderness on Palpation (Vivi-wound No Skin Appearance) -Ulcer Cleansing Wound Cleanser -Foul Odor after Cleansing No -Anesthetic Used 5% Lidocaine Gel - Nurse 2 - General Ulcer CM Notes Start: 02/28/24 13:42 Freq: Status: Active Protocol: Activity Type Activity Date Activity User E-sign Co-sign Detail Recorded Client Recorded Date Recorded By Document 02/28/24 14:26 [facility] 02/28/24 14:29 02/28/24 14:26 Wound Center Nurse 2 -Time 14:26 -Correct Patient Yes -Correct Side, Site, Position Yes -Correct Procedure Yes -Procedure Performed Yes -Type of Procedure Debridement -Clinical Debridement Muscle / Fascia -Tissue Removed Muscle -Post Debridement (cm) - Length 7.5 -Post Debridement (cm) - Width 5.0 -Post Debridement (cm) - Depth 0.4 -Total Square (Post) (cm) 37.50 -Area of Debridement (cm) - Length 7.5 -Area of Debridement (cm) - Width 5.0 -Total Square (Area) (cm) 37.50 -Undermining/Tunneling Yes -Undermining/Tunneling Starts (O'clock 10 ) -Undermining/Tunneling Ends (O'clock) 11 -Maximum Distance (cm) 2.6 -Circular Undermining No -Wound/Ulcer Outcome Not Healed -Ulcer Cleansing Not Cleansed -Foul Odor after Cleansing No -Bioengineered Tissue No -Bleeding Controlled with Pressure -Treatment Response Procedure Tolerated Well -Debridement - Muscle / Fascia, 1st Yes 20sq cm -Debridement, Muscle/Fascia, ea addt'l 1 20sq cm or part thereof Pain Scale: 0-10 Numeric Is Patient Pain Free? Yes - Nurse 3 - General Ulcer D/C NN Start: 02/28/24 13:42 Freq: Status: Active Protocol: Activity Type Activity Date Activity User E-sign Co-sign Detail Recorded Client Recorded Date Recorded By Document 02/28/24 14:45 DS 1 02/28/24 14:57 DS 02/28/24 14:45 Wound Care Center Nurse 3 #14- L SACRAL POST OP -Ulcer Cleansing Rinsed/ Irrigated with Saline -Primary Dressing Applied Hysept ($) -Other Dressing ABD -Primary Dressing Covered/Secured with Dry Gauze, Secured with Tape Pain Scale: 0-10 Numeric Is Patient Pain Free? Yes WC - Visit Discharge Discharge Condition Stable Ambulatory Status Wheelchair Transportation Private Auto Medication Reconcilliation completed & Yes provided to patient/care provider Clinical Summary of Care Provided Yes Assessment/Plan Assessment/Plan (1) Pressure injury of sacral region, stage 4: CODE(S): L89.154 - Pressure ulcer of sacral region, stage 4 (2) Osteomyelitis of sacrum: CODE(S): M46.28 - Osteomyelitis of vertebra, sacral and sacrococcygeal region (3) Diabetes mellitus: CODE(S): E11.9 - Type 2 diabetes mellitus without complications (4) Tobacco use disorder: CODE(S): F17.200 - Nicotine dependence, unspecified, uncomplicated (5) Paraplegia: CODE(S): G82.20 - Paraplegia, unspecified (6) Smoker: CODE(S): F17.200 - Nicotine dependence, unspecified, uncomplicated PLAN: Plan Wound care -discontinue the wound VAC. Daily Dakin's 0.25% moistened gauze topped with ABD. Wash ulcer and vivi wound with soap and water at the time of the dressing change. Surgery 01/01/24 - Excision sacral pressure sore, Stage IV, with partial ostectomy for osteomyelitis. Pathology of sacral bone consistent with chronic osteomyelitis. Soft tissue and skin of sacral region showed ulceration with associated acute and chronic inflammation and granulation. Operative bone culture from 01/01/24 positive for Staphylococcus haemolyticus. She will be treated for 6 weeks for positive bone cultures. Operative tissue culture from 01/01/24 positive for Corynebacterium striatum, Strep anginosus, Prevotella disiens, and Anaerobic cocci. She will be treated with Doxycycline and Augmentin. Wound culture 12/26/22 positive for Proteus miriabilis, Enterococcus faecalis, Streptococcus agalactiae, Anaerobic cocci and Bacteroides fragilis. She was treated with Augmentin. Wound culture from 01/23/23 was positive for MRSA and Morganella morganii. MRSA was treated with Doxycycline. Wound culture 04/03/23 positive for Proteus mirabilis, Enterococcus faecalis, and Anaerobic cocci. She is being treated with Augmentin. Wound culture from 07/03/23 positive for Proteus mirabilis and Enterococcus faecalis which was treated with Augmentin. A wound culture was obtained on 08/23/23. It was negative. CT Pelvis was done on 09/20/23. It showed evidence of tissue defect in the medial aspect of the right buttock abutting the distal sacrum. This most likely represents an ulcerated pressure ulcer. Normal urinary bladder. Normal visualized small intestine. Moderate amount of fecal material is seen in the colon. There is no pelvic fluid. There is no pelvic mass lesion or lymphadenopathy. There is diffuse atherosclerotic calcification of the pelvic arteries. Phleboliths are seen in the pelvis. Normal abdominal wall. Extensive metallic streak artifacts due to fusion with intrapedicular screw and aurelia fixation the lower lumbar spine. Order for her [id number] mattress. Follow up two weeks. Due to transportation issues she has difficult time coming weekly.
[2024-03-20 13:26] VITALS: BP 127/62; PULSE 70; RESP 16; TEMP 35.5
--- NOTE | 2024-03-20 16:16 | PCM.WC.PN ---
History of Present Illness Date of Service: 03/20/24 Chief Complaint: Sacral ulcer History of Wound: Patient is a 63 year old female who previously was a patient here and known to me, but had back surgery in early September 2022 at [facility] and then went to rehab at [place] after that. She had a aurelia replaced in her back. Before her surgery, she was not able to lie flat due to increased pain, so she spent most of her time in her wheelchair. Now since her surgery, she is in too much back pain to sit in her wheelchair. She presents today with an ulcer to her sacrum. She was in the ED on 12/10/22 for increased wound drainage and was treated with Keflex, which she has completed. She does have home health to assist with dressing changes. She has lost 100 lbs since last being here in early September. Wound culture 12/26/22 positive for Proteus mirabilis, Enterococcus faecalis, Streptococcus agalactiae, Anaerobic cocci and Bacteroides fragilis. She was treated with Augmentin. Wound culture from 01/23/23 was positive for MRSA and Morganella morganii. The MRSA was treated with Doxycycline. Wound culture 04/03/23 positive for Proteus mirabilis, Enterococcus faecalis, and Anaerobic cocci. She was treated with Augmentin. Wound culture from 07/03/23 positive for Proteus mirabilis and Enterococcus faecalis which was treated with Augmentin. Wound culture was done on 08/23/23. It was negative. She had CT Pelvis on 09/20/23. It showed evidence of tissue defect in the medial aspect of the right buttock abutting the distal sacrum. This most likely represents an ulcerated pressure ulcer. Normal urinary bladder. Normal visualized small intestine. Moderate amount of fecal material is seen in the colon. There is no pelvic fluid. There is no pelvic mass lesion or lymphadenopathy. There is diffuse atherosclerotic calcification of the pelvic arteries. Phleboliths are seen in the pelvis. Normal abdominal wall. Extensive metallic streak artifacts due to fusion with intrapedicular screw and aurelia fixation the lower lumbar spine. Surgery 01/01/24 - Excision sacral pressure sore, Stage IV, with partial ostectomy for osteomyelitis. Pathology of sacral bone consistent with chronic osteomyelitis. Soft tissue and skin of sacral region showed ulceration with associated acute and chronic inflammation and granulation. Operative bone culture from 01/01/24 positive for Staphylococcus haemolyticus. She will be treated for 6 weeks for positive bone cultures. Operative tissue culture from 01/01/24 positive for Corynebacterium striatum, Strep anginosus, Prevotella disiens, and Anaerobic cocci. She will be treated with Doxycycline and Augmentin. Today she denies fever. Her appetite is ok. Progress of Wound: Patient states that her pain has been more manageable since the wound vac was discontinued. Ulcer is smaller, ulcer bed is beefy pink. There is some bone exposure and there are a couple areas where the bone that is exposed is very sharp and the gauze dressing gets caught on those areas. Undermining is smaller. Kimani wound is clear. Objective Data Objective Data Vital Signs: Vital Signs Temp Pulse Resp BP O2 Del Method 96 F L 70 16 127/62 H Room Air 03/20/24 13:26 03/20/24 13:26 03/20/24 13:26 03/20/24 13:26 03/20/24 13:26 Oxygen Delivery Method Room Air Charges/Coding Procedures Integumentary [id number]: [id number] Global Visit Debridement Note Debridement Note Wound debrided: #14 Sacral area. Laterality: Not Applicable Wound Grade/Stage: IV. Type of Debridement: Excisional debridement Anesthesia Used: 5% Lidocaine Gel Depth: Down to and including healthy tissue, in the subcutaneous layer, to muscle and to bone Percentage of wound debrided: 100 Instrument Used: 7mm curette and - (able to nip sharp bone to help smooth it out) Tissue Removed: subcutaneous tissue, senescent cells, devitalized tissue and muscle Severity: Fat Layer Exposed (muscle is exposed. bone is palpable but not exposed.) Amount of bleeding with debridement: Mild Bleeding Controlled with: Pressure and Compression and gauze Patient tolerated procedure: Patient tolerated procedure well Debridement Free Text: Removed small, sharp pieces of bone in 2 areas. Post-Debridement Measurements and Additional Note: Post-Debridement Measurements/Treatment - Nurse 1 - General Ulcer Assessment Start: 02/28/24 13:42 Freq: Status: Active Protocol: TAISHA Activity Type Activity Date Activity User E-sign Co-sign Detail Recorded Client Recorded Date Recorded By Document 02/28/24 13:43 DS 1 02/28/24 13:43 DS Document 03/20/24 13:26 [facility] [id number] 03/20/24 13:36 [facility] 02/28/24 03/20/24 13:43 13:26 - Today's Visit Information Type of service Follow-up Visit Follow-up Visit (Physician/JAVA SYSTEMS ANALYST (Physician/JAVA SYSTEMS ANALYST ) ) Arrival Mode Wheelchair Wheelchair Transfer Assistance Transfer Board Other Transfer Assist (Other) 2 Patient Identification Verified (Name & Yes ) Patient Requires Transmission-Based No Precautions Safety Precautions Fall Prevention Vital Signs Temperature (97.8 F-99.1 F) 96.8 F L 96 F L Temperature Source Temporal Temporal Pulse Rate (60-100) 92 70 Pulse Location Monitor Monitor Respiratory Rate (12-18) 18 16 Respiratory rate source Observation Observation Oxygen Delivery Method Room Air Room Air Blood Pressure (90/60-120/80) 137/85 H 127/62 H Blood Pressure Mean (mm Hg) 102 83 Source Monitor Monitor Position Sitting Supine Blood Pressure Location Right Arm Right Arm History Since Last Visit- (Skip if this is Patient's initial visit) Have you changed medications since your No No last visit? Any new allergies or adverse reactions No No Had a fall/change in ADL's that may No No increase risk of falls Signs or symptoms of abuse and/or No No neglect since last visit Have you been in the hospital since your No No last visit? Has dressing in place as prescribed Yes Yes Has compression in place as prescribed N/A N/A Has offloadiing in place as prescribed Yes N/A Experienced any changes in pain level or No No management Left Footwear Regular Shoe Slipper Right Footwear Regular Shoe Slipper Pain Scale: 0-10 Numeric Is Patient Pain Free? Yes Yes - Nurse 1 - General Ulcer Measurement Start: 02/28/24 13:42 Freq: Status: Active Protocol: Activity Type Activity Date Activity User E-sign Co-sign Detail Recorded Client Recorded Date Recorded By Document 02/28/24 13:50 DS 1 02/28/24 13:52 DS Document 03/20/24 13:26 [facility] [id number] 03/20/24 13:36 [facility] 02/28/24 03/20/24 13:50 13:26 Wound Center Nurse 1 #14- L SACRAL POST OP -Combined with other wound No No -Current Size (cm) - Length 7.2 6.5 -Current Size (cm) - Width 4.2 6 -Current Size (cm) - Depth 1.8 1.5 -Total Square Cm 30.24 39.0 -Date of Last Picture (Recall this 03/20/24 field) -Photo Taken Yes -Epithelialization Small 1-33% -Tunneling No -Undermining/Tunneling Yes Yes -Undermining/Tunneling Starts (O'clock 6 9 ) -Undermining/Tunneling Ends (O'clock) 12 11 -Maximum Distance (cm) 3.2 1.4 -Circular Undermining No No -Exudate Amt Large Large -Exudate Type Serosanguineous Serosanguineous -Wound Margin Thickened & Thickened & Rolled Under Rolled Under -Granulation Amt Large (67-100%) Medium (34-66%) -Granulation Quality [place],Red Pale,Red -Slough/Fibrin Yes Yes -Necrosis Amt Small (1-33%) Medium (34-66%) -Necrotic Tissue Type Adherent Slough Adherent Slough -Structure Exposed N/A Bone -Texture (Kimani-wound Skin Appearance) Assessed, Assessed, Scarring Scarring -Moisture (Kimani-wound Skin Appearance) Assessed Assessed -Color (Kimani-wound Skin Appearance) Assessed Assessed -Temperature (Kimani-wound Skin No Abnormality No Abnormality Appearance) (Pt Warm) (Pt Warm) -Tenderness on Palpation (Kimani-wound No No Skin Appearance) -Ulcer Cleansing Wound Cleanser Soap and Water -Foul Odor after Cleansing No No -Anesthetic Used 5% Lidocaine 4% Lidocaine Gel Solution - Nurse 2 - General Ulcer CM Notes Start: 02/28/24 13:42 Freq: Status: Active Protocol: Activity Type Activity Date Activity User E-sign Co-sign Detail Recorded Client Recorded Date Recorded By Document 02/28/24 14:26 [facility] 02/28/24 14:29 Document 03/20/24 14:13 [id number] 03/20/24 14:25 02/28/24 03/20/24 14:26 14:13 Wound Center Nurse 2 #14- L SACRAL POST OP -Time 14:26 14:14 -Correct Patient Yes Yes -Correct Side, Site, Position Yes Yes -Correct Procedure Yes Yes -Procedure Performed Yes Yes -Type of Procedure Debridement Debridement -Clinical Debridement Muscle / Fascia Bone -Tissue Removed Muscle Non-viable tissue -Post Debridement (cm) - Length 7.5 7.0 -Post Debridement (cm) - Width 5.0 7.0 -Post Debridement (cm) - Depth 0.4 0.9 -Total Square (Post) (cm) 37.50 49.00 -Area of Debridement (cm) - Length 7.5 7.0 -Area of Debridement (cm) - Width 5.0 7.0 -Total Square (Area) (cm) 37.50 49.00 -Tunneling No -Undermining/Tunneling Yes Yes -Undermining/Tunneling Starts (O'clock 10 10 ) -Undermining/Tunneling Ends (O'clock) 11 11 -Maximum Distance (cm) 2.6 1.2 -Circular Undermining No No -Wound/Ulcer Outcome Not Healed Not Healed -Ulcer Cleansing Not Cleansed Rinsed/ Irrigated with Saline -Foul Odor after Cleansing No No -Bioengineered Tissue No No -Bleeding Controlled with Pressure Pressure -Treatment Response Procedure Procedure Tolerated Well Tolerated Well -Debridement - Muscle / Fascia, 1st Yes 20sq cm -Debridement, Muscle/Fascia, ea addt'l 1 20sq cm or part thereof -Debridement - Bone, 1st 20sq cm Yes -Debridement, Bone, ea addt'l 20sq cm 2 or part thereof Pain Scale: 0-10 Numeric Is Patient Pain Free? Yes Yes - Nurse 3 - General Ulcer D/C NN Start: 02/28/24 13:42 Freq: Status: Active Protocol: Activity Type Activity Date Activity User E-sign Co-sign Detail Recorded Client Recorded Date Recorded By Document 02/28/24 14:45 DS 1 02/28/24 14:57 DS Document 03/20/24 14:41 [id number] 03/20/24 14:42 RB 02/28/24 03/20/24 14:45 14:41 Wound Care Center Nurse 3 #14- L SACRAL POST OP -Ulcer Cleansing Rinsed/ Rinsed/ Irrigated with Irrigated with Saline Saline -Primary Dressing Applied Hysept ($) Mepilex Border, Silvercel -Other Dressing ABD -Primary Dressing Covered/Secured with Dry Gauze, Secured with Tape -Mepilex Border 1 -Silvercel 1 Treatment Response Procedure Tolerated Well Pain Scale: 0-10 Numeric Is Patient Pain Free? Yes Yes WC - Visit Discharge Discharge Condition Stable Stable Ambulatory Status Wheelchair Wheelchair Transportation Private Auto Private Auto Medication Reconcilliation completed & Yes No provided to patient/care provider Clinical Summary of Care Provided Yes Yes Assessment/Plan Assessment/Plan (1) Pressure injury of sacral region, stage 4: CODE(S): L89.154 - Pressure ulcer of sacral region, stage 4 (2) Osteomyelitis of sacrum: CODE(S): M46.28 - Osteomyelitis of vertebra, sacral and sacrococcygeal region (3) Diabetes mellitus: CODE(S): E11.9 - Type 2 diabetes mellitus without complications (4) Tobacco use disorder: CODE(S): F17.200 - Nicotine dependence, unspecified, uncomplicated (5) Paraplegia: CODE(S): G82.20 - Paraplegia, unspecified (6) Smoker: CODE(S): F17.200 - Nicotine dependence, unspecified, uncomplicated PLAN: Plan Wound care -Silver cell top with gauze covered with ABD or Mepilex dressings. Wash ulcer and kimani wound with soap and water at the time of the dressing change. Surgery 01/01/24 - Excision sacral pressure sore, Stage IV, with partial ostectomy for osteomyelitis. Pathology of sacral bone consistent with chronic osteomyelitis. Soft tissue and skin of sacral region showed ulceration with associated acute and chronic inflammation and granulation. Operative bone culture from 01/01/24 positive for Staphylococcus haemolyticus. She will be treated for 6 weeks for positive bone cultures. Operative tissue culture from 01/01/24 positive for Corynebacterium striatum, Strep anginosus, Prevotella disiens, and Anaerobic cocci. She will be treated with Doxycycline and Augmentin. Wound culture 12/26/22 positive for Proteus miriabilis, Enterococcus faecalis, Streptococcus agalactiae, Anaerobic cocci and Bacteroides fragilis. She was treated with Augmentin. Wound culture from 01/23/23 was positive for MRSA and Morganella morganii. MRSA was treated with Doxycycline. Wound culture 04/03/23 positive for Proteus mirabilis, Enterococcus faecalis, and Anaerobic cocci. She is being treated with Augmentin. Wound culture from 07/03/23 positive for Proteus mirabilis and Enterococcus faecalis which was treated with Augmentin. A wound culture was obtained on 08/23/23. It was negative. CT Pelvis was done on 09/20/23. It showed evidence of tissue defect in the medial aspect of the right buttock abutting the distal sacrum. This most likely represents an ulcerated pressure ulcer. Normal urinary bladder. Normal visualized small intestine. Moderate amount of fecal material is seen in the colon. There is no pelvic fluid. There is no pelvic mass lesion or lymphadenopathy. There is diffuse atherosclerotic calcification of the pelvic arteries. Phleboliths are seen in the pelvis. Normal abdominal wall. Extensive metallic streak artifacts due to fusion with intrapedicular screw and aurelia fixation the lower lumbar spine. Follow up two weeks. Due to transportation issues she has difficult time coming weekly.
--- NOTE | 2024-03-21 09:12 | WC ---
PHOTO 03/20/24 SACRAL
== END 2024-03-23 23:59 | disposition home or self-care (01) ==
LOC: WC 13:30
PROVIDERS: PCP Internal Medicine; Referring Provider Obstetrics & Gynecology; Visit Provider Nurse Practitioner Family
DX: L89.154 Pressure ulcer of sacral region, stage 4 (principal); G82.20 Paraplegia, unspecified; M46.28 Osteomyelitis of vertebra, sacral and sacrococcygeal region; E11.69 Type 2 diabetes mellitus with other specified complication; F17.200 Nicotine dependence, unspecified, uncomplicated
CPT/HCPCS: 11043; 11044; 11046; 11047

== ENCOUNTER 2024-04-03 13:19 | Outpatient (RCR) | payer MEDICARE, MEDICAID, SELFPAY ==
[2024-04-03 14:35] VITALS: BP 124/78; PULSE 78; RESP 14; TEMP 36.1
--- NOTE | 2024-04-03 16:42 | PCM.WC.PN ---
History of Present Illness Date of Service: 04/03/24 Chief Complaint: Sacral ulcer History of Wound: Patient is a 63 year old female who previously was a patient here and known to me, but had back surgery in early September 2022 at [facility] and then went to rehab at [place] after that. She had a aurelia replaced in her back. Before her surgery, she was not able to lie flat due to increased pain, so she spent most of her time in her wheelchair. Now since her surgery, she is in too much back pain to sit in her wheelchair. She presents today with an ulcer to her sacrum. She was in the ED on 12/10/22 for increased wound drainage and was treated with Keflex, which she has completed. She does have home health to assist with dressing changes. She has lost 100 lbs since last being here in early September. Wound culture 12/26/22 positive for Proteus mirabilis, Enterococcus faecalis, Streptococcus agalactiae, Anaerobic cocci and Bacteroides fragilis. She was treated with Augmentin. Wound culture from 01/23/23 was positive for MRSA and Morganella morganii. The MRSA was treated with Doxycycline. Wound culture 04/03/23 positive for Proteus mirabilis, Enterococcus faecalis, and Anaerobic cocci. She was treated with Augmentin. Wound culture from 07/03/23 positive for Proteus mirabilis and Enterococcus faecalis which was treated with Augmentin. Wound culture was done on 08/23/23. It was negative. She had CT Pelvis on 09/20/23. It showed evidence of tissue defect in the medial aspect of the right buttock abutting the distal sacrum. This most likely represents an ulcerated pressure ulcer. Normal urinary bladder. Normal visualized small intestine. Moderate amount of fecal material is seen in the colon. There is no pelvic fluid. There is no pelvic mass lesion or lymphadenopathy. There is diffuse atherosclerotic calcification of the pelvic arteries. Phleboliths are seen in the pelvis. Normal abdominal wall. Extensive metallic streak artifacts due to fusion with intrapedicular screw and aurelia fixation the lower lumbar spine. Surgery 01/01/24 - Excision sacral pressure sore, Stage IV, with partial ostectomy for osteomyelitis. Pathology of sacral bone consistent with chronic osteomyelitis. Soft tissue and skin of sacral region showed ulceration with associated acute and chronic inflammation and granulation. Operative bone culture from 01/01/24 positive for Staphylococcus haemolyticus. She will be treated for 6 weeks for positive bone cultures. Operative tissue culture from 01/01/24 positive for Corynebacterium striatum, Strep anginosus, Prevotella disiens, and Anaerobic cocci. She will be treated with Doxycycline and Augmentin. Today she denies fever. Her appetite is ok. Objective Data Objective Data Vital Signs: Vital Signs Temp Pulse Resp BP 97 F L 78 14 124/78 H 04/03/24 14:35 04/03/24 14:35 04/03/24 14:35 04/03/24 14:35 Debridement Note Debridement Note Post-Debridement Measurements and Additional Note: Post-Debridement Measurements/Treatment WC - Nurse 1 - General Ulcer Assessment Start: 04/03/24 14:21 Freq: Status: Active Protocol: TAISHA Activity Type Activity Date Activity User E-sign Co-sign Detail Recorded Client Recorded Date Recorded By Document 04/03/24 14:35 DL [id number] 04/03/24 14:37 DL 04/03/24 14:35 WC - Today's Visit Information Type of service Follow-up Visit (Physician/WAREHOUSE SHIFT SUPERVISOR ) Arrival Mode Wheelchair Transfer Assistance Manual Patient Identification Verified (Name & Yes ) Patient Requires Transmission-Based No Precautions Vital Signs Temperature (97.8 F-99.1 F) 97 F L Temperature Source Temporal Pulse Rate (60-100) 78 Pulse Location Monitor Respiratory Rate (12-18) 14 Respiratory rate source Observation Blood Pressure (90/60-120/80) 124/78 H Blood Pressure Mean (mm Hg) 93 Source Monitor Position Sitting Blood Pressure Location Right Arm History Since Last Visit- (Skip if this is Patient's initial visit) Have you changed medications since your No last visit? Any new allergies or adverse reactions No Had a fall/change in ADL's that may No increase risk of falls Signs or symptoms of abuse and/or No neglect since last visit Have you been in the hospital since your No last visit? Has dressing in place as prescribed No Has compression in place as prescribed N/A Has offloadiing in place as prescribed N/A Experienced any changes in pain level or No management Left Footwear Regular Shoe Right Footwear Regular Shoe Pain Scale: 0-10 Numeric Is Patient Pain Free? Yes SCOTTY - Nurse 1 - General Ulcer Measurement Start: 04/03/24 14:21 Freq: Status: Active Protocol: Activity Type Activity Date Activity User E-sign Co-sign Detail Recorded Client Recorded Date Recorded By Document 04/03/24 14:35 DL [id number] 04/03/24 14:37 DL 04/03/24 14:35 Wound Center Nurse 1 #14- L SACRAL POST OP -Current Size (cm) - Length 6 -Current Size (cm) - Width 6.5 -Current Size (cm) - Depth 0.7 -Total Square Cm 39.0 -Photo Taken Yes -Epithelialization Medium 34-66% -Exudate Amt Medium -Exudate Type Serosanguineous -Wound Margin Thickened & Rolled Under -Granulation Amt Medium (34-66%) -Granulation Quality Pale -Slough/Fibrin Yes -Necrosis Amt Medium (34-66%) -Necrotic Tissue Type Adherent Slough -Texture (Vivi-wound Skin Appearance) Assessed -Moisture (Vivi-wound Skin Appearance) Assessed -Color (Vivi-wound Skin Appearance) Assessed -Temperature (Vivi-wound Skin No Abnormality Appearance) (Pt Warm) -Tenderness on Palpation (Vivi-wound No Skin Appearance) -Ulcer Cleansing Rinsed/ Irrigated with Saline -Anesthetic Used 5% Lidocaine Gel WC - Nurse 2 - General Ulcer CM Notes Start: 04/03/24 14:21 Freq: Status: Active Protocol: Activity Type Activity Date Activity User E-sign Co-sign Detail Recorded Client Recorded Date Recorded By Document 04/03/24 14:50 GM [id number] 04/03/24 14:54 04/03/24 14:50 Wound Center Nurse 2 -Time 14:50 -Correct Patient Yes -Correct Side, Site, Position Yes -Correct Procedure Yes -Procedure Performed Yes -Type of Procedure Debridement -Clinical Debridement Muscle / Fascia -Tissue Removed Muscle -Post Debridement (cm) - Length 6.5 -Post Debridement (cm) - Width 5.0 -Post Debridement (cm) - Depth 0.7 -Total Square (Post) (cm) 32.50 -Area of Debridement (cm) - Length 6.5 -Area of Debridement (cm) - Width 5.0 -Total Square (Area) (cm) 32.50 -Tunneling No -Undermining/Tunneling Yes -Undermining/Tunneling Starts (O'clock 6 ) -Undermining/Tunneling Ends (O'clock) 12 -Maximum Distance (cm) 1.5 -Circular Undermining No -Wound/Ulcer Outcome Not Healed -Ulcer Cleansing Rinsed/ Irrigated with Saline -Foul Odor after Cleansing No -Bioengineered Tissue No -Bleeding Controlled with Pressure -Treatment Response Procedure Tolerated Well -Debridement - Muscle / Fascia, 1st Yes 20sq cm -Debridement, Muscle/Fascia, ea addt'l 1 20sq cm or part thereof Pain Scale: 0-10 Numeric Is Patient Pain Free? Yes WC - Nurse 3 - General Ulcer D/C NN Start: 04/03/24 14:21 Freq: Status: Active Protocol: Activity Type Activity Date Activity User E-sign Co-sign Detail Recorded Client Recorded Date Recorded By Document 04/03/24 15:23 ML [id number] 04/03/24 15:24 ML 04/03/24 15:23 Wound Care Center Nurse 3 #14- L SACRAL POST OP -Ulcer Cleansing Rinsed/ Irrigated with Saline -Primary Dressing Applied Mepilex Border, Silvercel -Primary Dressing Covered/Secured with Dry Gauze -Mepilex Border 1 -Silvercel 1 Pain Scale: 0-10 Numeric Is Patient Pain Free? Yes
--- NOTE | 2024-04-04 08:32 | WC ---
PHOTO 04/03/24 LEFT SACRAL
== END 2024-04-22 23:59 | disposition home or self-care (01) ==
LOC: WC 13:19
PROVIDERS: PCP Internal Medicine; Visit Provider Nurse Practitioner Family
DX: L89.154 Pressure ulcer of sacral region, stage 4 (principal); G82.20 Paraplegia, unspecified; M46.28 Osteomyelitis of vertebra, sacral and sacrococcygeal region; E11.69 Type 2 diabetes mellitus with other specified complication; F17.200 Nicotine dependence, unspecified, uncomplicated
CPT/HCPCS: 11043; 11046

== ENCOUNTER 2024-05-15 13:00 | Outpatient (RCR) | payer MEDICARE, MEDICAID, SELFPAY ==
[2024-04-23 00:26] VITALS: BP 124/78; PULSE 78; RESP 14; TEMP 36.1
[2024-05-01 13:35] VITALS: BP 160/74; PULSE 72; RESP 18; TEMP 36.3
--- NOTE | 2024-05-01 15:42 | PCM.WC.PN ---
History of Present Illness Date of Service: 05/01/24 Chief Complaint: Sacral ulcer History of Wound: Patient is a 63 year old female who previously was a patient here and known to me, but had back surgery in early September 2022 at [facility] and then went to rehab at [facility] after that. She had a aurelia replaced in her back. Before her surgery, she was not able to lie flat due to increased pain, so she spent most of her time in her wheelchair. Now since her surgery, she is in too much back pain to sit in her wheelchair. She presents today with an ulcer to her sacrum. She was in the ED on 12/10/22 for increased wound drainage and was treated with Keflex, which she has completed. She does have home health to assist with dressing changes. She has lost 100 lbs since last being here in early September. Wound culture 12/26/22 positive for Proteus mirabilis, Enterococcus faecalis, Streptococcus agalactiae, Anaerobic cocci and Bacteroides fragilis. She was treated with Augmentin. Wound culture from 01/23/23 was positive for MRSA and Morganella morganii. The MRSA was treated with Doxycycline. Wound culture 04/03/23 positive for Proteus mirabilis, Enterococcus faecalis, and Anaerobic cocci. She was treated with Augmentin. Wound culture from 07/03/23 positive for Proteus mirabilis and Enterococcus faecalis which was treated with Augmentin. Wound culture was done on 08/23/23. It was negative. She had CT Pelvis on 09/20/23. It showed evidence of tissue defect in the medial aspect of the right buttock abutting the distal sacrum. This most likely represents an ulcerated pressure ulcer. Normal urinary bladder. Normal visualized small intestine. Moderate amount of fecal material is seen in the colon. There is no pelvic fluid. There is no pelvic mass lesion or lymphadenopathy. There is diffuse atherosclerotic calcification of the pelvic arteries. Phleboliths are seen in the pelvis. Normal abdominal wall. Extensive metallic streak artifacts due to fusion with intrapedicular screw and aurelia fixation the lower lumbar spine. Surgery 01/01/24 - Excision sacral pressure sore, Stage IV, with partial ostectomy for osteomyelitis. Pathology of sacral bone consistent with chronic osteomyelitis. Soft tissue and skin of sacral region showed ulceration with associated acute and chronic inflammation and granulation. Operative bone culture from 01/01/24 positive for Staphylococcus haemolyticus. She will be treated for 6 weeks for positive bone cultures. Operative tissue culture from 01/01/24 positive for Corynebacterium striatum, Strep anginosus, Prevotella disiens, and Anaerobic cocci. She will be treated with Doxycycline and Augmentin. Today she denies fever. Her appetite is ok. Progress of Wound: The ulcer is a nice beefy pink color, it is slightly smaller. There is one small area with bone exposure. The under mining is stable. Vivi wound is clear. She is scheduled to meet with the obstetrics scrub nurse today here at the wound center. Objective Data Objective Data Vital Signs: Vital Signs Temp Pulse Resp BP 97.3 F L 72 18 160/74 H 05/01/24 13:35 05/01/24 13:35 05/01/24 13:35 05/01/24 13:35 Charges/Coding Procedures Integumentary 111xxx-113xx: 60031 Shila musc/fascia 20 sq cm/< Add On Codes: 11965 Shila musc/fascia add-on Debridement Note Debridement Note Wound debrided: #14 Sacral area. Laterality: Not Applicable Wound Grade/Stage: IV. Type of Debridement: Excisional debridement Anesthesia Used: 5% Lidocaine Gel Depth: Down to and including healthy tissue, in the subcutaneous layer, to muscle and to bone Percentage of wound debrided: 100 Instrument Used: 7mm curette Tissue Removed: subcutaneous tissue, senescent cells, devitalized tissue and muscle Severity: Fat Layer Exposed (muscle is exposed. bone is palpable but not exposed.) Amount of bleeding with debridement: Mild Bleeding Controlled with: Pressure and Compression and gauze Patient tolerated procedure: Patient tolerated procedure well Debridement Free Text: Bone is exposed, not debrided. Post-Debridement Measurements and Additional Note: Post-Debridement Measurements/Treatment - Nurse 1 - General Ulcer Assessment Start: 05/01/24 13:33 Freq: Status: Active Protocol: TAISHA Activity Type Activity Date Activity User E-sign Co-sign Detail Recorded Client Recorded Date Recorded By Document 05/01/24 13:35 DL [id number] 05/01/24 13:41 DL 05/01/24 13:35 - Today's Visit Information Type of service Follow-up Visit (Physician/MACHINE PROGRAMMER ) Arrival Mode Wheelchair Transfer Assistance Manual Transfer Assist (Other) x1 Patient Identification Verified (Name & Yes ) Patient Requires Transmission-Based No Precautions Vital Signs Temperature (97.8 F-99.1 F) 97.3 F L Temperature Source Temporal Pulse Rate (60-100) 72 Pulse Location Monitor Respiratory Rate (12-18) 18 Respiratory rate source Observation Blood Pressure (90/60-120/80) 160/74 H Blood Pressure Mean (mm Hg) 102 Source Monitor History Since Last Visit- (Skip if this is Patient's initial visit) Have you changed medications since your No last visit? Any new allergies or adverse reactions No Had a fall/change in ADL's that may No increase risk of falls Signs or symptoms of abuse and/or No neglect since last visit Have you been in the hospital since your No last visit? Has dressing in place as prescribed Yes Has compression in place as prescribed N/A Has offloadiing in place as prescribed Yes Experienced any changes in pain level or No management Pain Scale: 0-10 Numeric Is Patient Pain Free? Yes WC - Nurse 1 - General Ulcer Measurement Start: 05/01/24 13:33 Freq: Status: Active Protocol: Activity Type Activity Date Activity User E-sign Co-sign Detail Recorded Client Recorded Date Recorded By Document 05/01/24 13:35 DL [id number] 05/01/24 13:41 DL 05/01/24 13:35 Wound Center Nurse 1 #14- L SACRAL POST OP -Current Size (cm) - Length 5 -Current Size (cm) - Width 5.8 -Current Size (cm) - Depth 1.1 -Total Square Cm 29.0 -Photo Taken Yes -Undermining/Tunneling Starts (O'clock 7 ) -Undermining/Tunneling Ends (O'clock) 12 -Maximum Distance (cm) 2 -Classification - Thickness Full Thickness without Exposed Support Structure -Exudate Amt Medium -Exudate Type Serosanguineous -Wound Margin Thickened & Rolled Under -Granulation Amt Large (67-100%) -Granulation Quality Red -Necrosis Amt Small (1-33%) -Necrotic Tissue Type Adherent Slough -Structure Exposed N/A -Texture (Vivi-wound Skin Appearance) Scarring -Moisture (Vivi-wound Skin Appearance) No Abnormality -Color (Vivi-wound Skin Appearance) No Abnormality -Temperature (Vivi-wound Skin No Abnormality Appearance) (Pt Warm) -Tenderness on Palpation (Vivi-wound No Skin Appearance) -Ulcer Cleansing Soap and Water -Foul Odor after Cleansing No -Anesthetic Used 5% Lidocaine Gel WC - Nurse 2 - General Ulcer CM Notes Start: 05/01/24 13:33 Freq: Status: Active Protocol: Activity Type Activity Date Activity User E-sign Co-sign Detail Recorded Client Recorded Date Recorded By Document 05/01/24 13:49 GM [id number] 05/01/24 13:57 GM Edit Result 05/01/24 13:49 GM (1) [id number] 05/01/24 14:00 GM (1) #14- L SACRAL POST OP - Debridement, Muscle/Fascia, ea addt'l => 1 20sq cm or part thereof 05/01/24 13:49 Wound Center Nurse 2 -Time 13:49 -Correct Patient Yes -Correct Side, Site, Position Yes -Correct Procedure Yes -Procedure Performed Yes -Type of Procedure Debridement -Clinical Debridement Muscle / Fascia -Tissue Removed Muscle -Post Debridement (cm) - Length 6.0 -Post Debridement (cm) - Width 4.0 -Post Debridement (cm) - Depth 0.5 -Total Square (Post) (cm) 24.00 -Area of Debridement (cm) - Length 6.0 -Area of Debridement (cm) - Width 4.0 -Total Square (Area) (cm) 24.00 -Tunneling No -Undermining/Tunneling Yes -Undermining/Tunneling Starts (O'clock 6 ) -Undermining/Tunneling Ends (O'clock) 12 -Maximum Distance (cm) 1.5 -Wound/Ulcer Outcome Not Healed -Ulcer Cleansing Rinsed/ Irrigated with Saline -Foul Odor after Cleansing No -Bioengineered Tissue No -Bleeding Controlled with Pressure -Treatment Response Procedure Tolerated Well -Debridement - Muscle / Fascia, 1st Yes 20sq cm -Debridement, Muscle/Fascia, ea addt'l 1 20sq cm or part thereof Pain Scale: 0-10 Numeric Is Patient Pain Free? Yes SCOTTY - Nurse 3 - General Ulcer D/C NN Start: 05/01/24 13:33 Freq: Status: Active Protocol: Activity Type Activity Date Activity User E-sign Co-sign Detail Recorded Client Recorded Date Recorded By Document 05/01/24 14:09 DL [id number] 05/01/24 14:10 DL 05/01/24 14:09 Wound Care Center Nurse 3 #14- L SACRAL POST OP -Ulcer Cleansing Rinsed/ Irrigated with Saline -Foul Odor after Cleansing No -Primary Dressing Applied Mepilex Border, Silvercel -Mepilex Border 1 -Silvercel 1 Treatment Response Procedure Tolerated Well Pain Scale: 0-10 Numeric Is Patient Pain Free? Yes WC - Visit Discharge Discharge Condition Stable Ambulatory Status Wheelchair Transportation Private Auto Facility Type Home Health Orders Sent Yes Assessment/Plan Assessment/Plan (1) Pressure injury of sacral region, stage 4: CODE(S): L89.154 - Pressure ulcer of sacral region, stage 4 (2) Osteomyelitis of sacrum: CODE(S): M46.28 - Osteomyelitis of vertebra, sacral and sacrococcygeal region (3) Diabetes mellitus: CODE(S): E11.9 - Type 2 diabetes mellitus without complications QUALIFIERS: Diabetes mellitus complication status: with skin complications Diabetes mellitus type: type 2 (4) Tobacco use disorder: CODE(S): F17.200 - Nicotine dependence, unspecified, uncomplicated (5) Paraplegia: CODE(S): G82.20 - Paraplegia, unspecified (6) Smoker: CODE(S): F17.200 - Nicotine dependence, unspecified, uncomplicated PLAN: Plan Wound care -Silver cell top with gauze covered with ABD or Mepilex dressings daily. Wash ulcer and vivi wound with soap and water at the time of the dressing change. Surgery 01/01/24 - Excision sacral pressure sore, Stage IV, with partial ostectomy for osteomyelitis. Pathology of sacral bone consistent with chronic osteomyelitis. Soft tissue and skin of sacral region showed ulceration with associated acute and chronic inflammation and granulation. Operative bone culture from 01/01/24 positive for Staphylococcus haemolyticus. She will be treated for 6 weeks for positive bone cultures. Operative tissue culture from 01/01/24 positive for Corynebacterium striatum, Strep anginosus, Prevotella disiens, and Anaerobic cocci. She will be treated with Doxycycline and Augmentin. Wound culture 12/26/22 positive for Proteus miriabilis, Enterococcus faecalis, Streptococcus agalactiae, Anaerobic cocci and Bacteroides fragilis. She was treated with Augmentin. Wound culture from 01/23/23 was positive for MRSA and Morganella morganii. MRSA was treated with Doxycycline. Wound culture 04/03/23 positive for Proteus mirabilis, Enterococcus faecalis, and Anaerobic cocci. She is being treated with Augmentin. Wound culture from 07/03/23 positive for Proteus mirabilis and Enterococcus faecalis which was treated with Augmentin. A wound culture was obtained on 08/23/23. It was negative. CT Pelvis was done on 09/20/23. It showed evidence of tissue defect in the medial aspect of the right buttock abutting the distal sacrum. This most likely represents an ulcerated pressure ulcer. Normal urinary bladder. Normal visualized small intestine. Moderate amount of fecal material is seen in the colon. There is no pelvic fluid. There is no pelvic mass lesion or lymphadenopathy. There is diffuse atherosclerotic calcification of the pelvic arteries. Phleboliths are seen in the pelvis. Normal abdominal wall. Extensive metallic streak artifacts due to fusion with intrapedicular screw and aurelia fixation the lower lumbar spine. She is seeing a obstetrics scrub nurse today for evaluation of her nutritional status. Follow up two weeks. Due to transportation issues she has difficult time coming weekly.
--- NOTE | 2024-05-02 11:59 | WC ---
PHOTO 05/01/24 SACRAL
[2024-05-15 12:43] VITALS: BP 144/66; PULSE 65; RESP 18; TEMP 36.4
--- NOTE | 2024-05-15 16:59 | PN.PCM_ITS ---
History of Present Illness Date of Service: 05/15/24 Chief Complaint: Sacral ulcer History of Wound: Patient is a 63 year old female who previously was a patient here and known to me, but had back surgery in early September 2022 at [facility] and then went to rehab at [facility] after that. She had a aurelia replaced in her back. Before her surgery, she was not able to lie flat due to increased pain, so she spent most of her time in her wheelchair. Now since her surgery, she is in too much back pain to sit in her wheelchair. She presents today with an ulcer to her sacrum. She was in the ED on 12/10/22 for increased wound drainage and was treated with Keflex, which she has completed. She does have home health to assist with dressing changes. She has lost 100 lbs since last being here in early September. Wound culture 12/26/22 positive for Proteus mirabilis, Enterococcus faecalis, Streptococcus agalactiae, Anaerobic cocci and Bacteroides fragilis. She was treated with Augmentin. Wound culture from 01/23/23 was positive for MRSA and Morganella morganii. The MRSA was treated with Doxycycline. Wound culture 04/03/23 positive for Proteus mirabilis, Enterococcus faecalis, and Anaerobic cocci. She was treated with Augmentin. Wound culture from 07/03/23 positive for Proteus mirabilis and Enterococcus fa ecalis which was treated with Augmentin. Wound culture was done on 08/23/23. It was negative. She had CT Pelvis on 09/20/23. It showed evidence of tissue defect in the medial aspect of the right buttock abutting the distal sacrum. This most likely represents an ulcerated pressure ulcer. Normal urinary bladder. Normal visualized small intestine. Moderate amount of fecal material is seen in the colon. There is no pelvic fluid. There is no pelvic mass lesion or lymphadenopathy. There is diffuse atherosclerotic calcification of the pelvic arteries. Phleboliths are seen in the pelvis. Normal abdominal wall. Extensive metallic streak artifacts due to fusion with intrapedicular screw and aurelia fixation the lower lumbar spine. Surgery 01/01/24 - Excision sacral pressure sore, Stage IV, with partial ostectomy for osteomyelitis. Pathology of sacral bone consistent with chronic osteomyelitis. Soft tissue and skin of sacral region showed ulceration with associated acute and chronic inflammation and granulation. Operative bone culture from 01/01/24 positive for Staphylococcus haemolyticus. She will be treated for 6 weeks for positive bone cultures. Operative tissue culture from 01/01/24 positive for Corynebacterium striatum, Strep anginosus, Prevotella disiens, and Anaerobic cocci. She will be treated with Doxycycline and Augmentin. Today she denies fever. Her appetite is ok. Progress of Wound: The ulcer is a nice beefy pink color, it is slightly smaller. There is still one very small area with bone is palpable and not covered with granulation tissue. It is smaller that her previous visit. The under mining is stable. Vivi wound is clear. She is scheduled to meet with the circular knife cutter machine today here at the wound center. Objective Data Objective Data Vital Signs: Vital Signs Temp Pulse Resp BP O2 Del Method 97.5 F L 65 18 144/66 H Room Air 05/15/24 12:43 05/15/24 12:43 05/15/24 12:43 05/15/24 12:43 05/15/24 12:43 Oxygen Delivery Method Room Air Weight: 149 lb 14.629 oz Charges/Coding Procedures Integumentary 111xxx-113xx: [id number] Shila musc/fascia 20 sq cm/< Debridement Note Debridement Note Wound debrided: #14 Sacral area. Laterality: Not Applicable Wound Grade/Stage: IV. Type of Debridement: Excisional debridement Anesthesia Used: 5% Lidocaine Gel Depth: Down to and including healthy tissue, in the subcutaneous layer, to muscle and to bone Percentage of wound debrided: 100 Instrument Used: 5mm curette Tissue Removed: subcutaneous tissue, senescent cells, devitalized tissue and muscle Severity: Fat Layer Exposed (muscle is exposed. bone is palpable but not exposed.) Amount of bleeding with debridement: Mild Bleeding Controlled with: Pressure, Compression and gauze and Silver Nitrate Patient tolerated procedure: Patient tolerated procedure well Debridement Free Text: Bone is exposed, not debrided. Silver nitrate used on one area on the edge of ulcer that continued to ooze even after pressure was held. Post-Debridement Measurements and Additional Note: Post-Debridement Measurements/Treatment SCOTTY - Nurse 1 - General Ulcer Assessment Start: 05/01/24 13:33 Freq: Status: Active Protocol: SCOTTY.LOWEXT Activity Type Activity Date Activity User E-sign Co-sign Detail Recorded Client Recorded Date Recorded By Document 05/01/24 13:35 DL [id number] 05/01/24 13:41 DL Document 05/15/24 12:43 KW [id number] 05/15/24 13:00 KW 05/01/24 05/15/24 13:35 12:43 WC - Today's Visit Information Type of service Follow-up Visit Initial Visit, (Physician/SPECIAL SERVICES COORDINATOR Follow-up Visit ) (Physician/SPECIAL SERVICES COORDINATOR ) Arrival Mode Wheelchair Wheelchair Transfer Assistance Manual Transfer Assist (Other) x1 Patient Identification Verified (Name & Yes Yes ) Patient Requires Transmission-Based No Precautions Vital Signs Temperature (97.8 F-99.1 F) 97.3 F L 97.5 F L Temperature Source Temporal Temporal Pulse Rate (60-100) 72 65 Pulse Location Monitor Monitor Respiratory Rate (12-18) 18 18 Respiratory rate source Observation Observation Oxygen Delivery Method Room Air Blood Pressure (90/60-120/80) 160/74 H 144/66 H Blood Pressure Mean (mm Hg) 102 92 Source Monitor Monitor Position Semi-Fowlers Blood Pressure Location Left Arm History Since Last Visit- (Skip if this is Patient's initial visit) Have you changed medications since your No No last visit? Any new allergies or adverse reactions No No Had a fall/change in ADL's that may No No increase risk of falls Signs or symptoms of abuse and/or No No neglect since last visit Have you been in the hospital since your No No last visit? Has dressing in place as prescribed Yes Yes Has compression in place as prescribed N/A N/A Has offloadiing in place as prescribed Yes N/A Experienced any changes in pain level or No No management Left Footwear Regular Shoe Right Footwear Regular Shoe Pain Scale: 0-10 Numeric Is Patient Pain Free? Yes Yes - Nurse 1 - General Ulcer Measurement Start: 05/01/24 13:33 Freq: Status: Active Protocol: Activity Type Activity Date Activity User E-sign Co-sign Detail Recorded Client Recorded Date Recorded By Document 05/01/24 13:35 DL [id number] 05/01/24 13:41 DL Document 05/15/24 12:43 KW [id number] 05/15/24 13:00 KW 05/01/24 05/15/24 13:35 12:43 Wound Center Nurse 1 #14- L SACRAL POST OP -Current Size (cm) - Length 5 5 -Current Size (cm) - Width 5.8 1.8 -Current Size (cm) - Depth 1.1 1 -Total Square Cm 29.0 9.0 -Date of Last Picture (Recall this 05/15/24 field) -Photo Taken Yes -Epithelialization Medium 34-66% -Undermining/Tunneling Starts (O'clock 7 ) -Undermining/Tunneling Ends (O'clock) 12 -Maximum Distance (cm) 2 -Classification - Thickness Full Thickness without Exposed Support Structure -Exudate Amt Medium Medium -Exudate Type Serosanguineous Serosanguineous -Wound Margin Thickened & Distinct, Rolled Under Outline Attached -Granulation Amt Large (67-100%) Large (67-100%) -Granulation Quality Red [place],Red -Necrosis Amt Small (1-33%) -Necrotic Tissue Type Adherent Slough -Structure Exposed N/A -Texture (Vivi-wound Skin Appearance) Scarring Assessed -Moisture (Vivi-wound Skin Appearance) No Abnormality Assessed -Color (Vivi-wound Skin Appearance) No Abnormality Assessed -Temperature (Vivi-wound Skin No Abnormality No Abnormality Appearance) (Pt Warm) (Pt Warm) -Tenderness on Palpation (Vivi-wound No No Skin Appearance) -Ulcer Cleansing Soap and Water Soap and Water -Foul Odor after Cleansing No No -Anesthetic Used 5% Lidocaine 5% Lidocaine Gel Gel WC - Nurse 2 - General Ulcer CM Notes Start: 05/01/24 13:33 Freq: Status: Active Protocol: Activity Type Activity Date Activity User E-sign Co-sign Detail Recorded Client Recorded Date Recorded By Document 05/01/24 13:49 GM [id number] 05/01/24 13:57 GM Edit Result 05/01/24 13:49 GM (1) [id number] 05/01/24 14:00 GM Document 05/15/24 13:49 GM [id number] 05/15/24 13:52 GM Edit Result 05/15/24 13:49 GM (2) [id number] 05/15/24 13:56 GM (1) #14- L SACRAL POST OP - Debridement, Muscle/Fascia, ea addt'l => 1 20sq cm or part thereof (2) #14- L SACRAL POST OP - Bleeding Controlled with Pressure => Pressure,Silver => Nitrate 05/01/24 05/15/24 13:49 13:49 Wound Center Nurse 2 #14- L SACRAL POST OP -Time 13:49 13:49 -Correct Patient Yes Yes -Correct Side, Site, Position Yes Yes -Correct Procedure Yes Yes -Procedure Performed Yes Yes -Type of Procedure Debridement Debridement -Clinical Debridement Muscle / Fascia Muscle / Fascia -Tissue Removed Muscle Muscle -Post Debridement (cm) - Length 6.0 5.4 -Post Debridement (cm) - Width 4.0 3.4 -Post Debridement (cm) - Depth 0.5 0.6 -Total Square (Post) (cm) 24.00 18.36 -Area of Debridement (cm) - Length 6.0 5.4 -Area of Debridement (cm) - Width 4.0 3.4 -Total Square (Area) (cm) 24.00 18.36 -Tunneling No No -Undermining/Tunneling Yes Yes -Undermining/Tunneling Starts (O'clock 6 9 ) -Undermining/Tunneling Ends (O'clock) 12 12 -Maximum Distance (cm) 1.5 1.5 -Wound/Ulcer Outcome Not Healed Not Healed -Ulcer Cleansing Rinsed/ Rinsed/ Irrigated with Irrigated with Saline Saline -Foul Odor after Cleansing No No -Bioengineered Tissue No No -Bleeding Controlled with Pressure Pressure,Silver Nitrate -Treatment Response Procedure Procedure Tolerated Well Tolerated Well -Debridement - Muscle / Fascia, 1st Yes Yes 20sq cm -Debridement, Muscle/Fascia, ea addt'l 1 20sq cm or part thereof Pain Scale: 0-10 Numeric Is Patient Pain Free? Yes Yes WC - Nurse 3 - General Ulcer D/C NN Start: 05/01/24 13:33 Freq: Status: Active Protocol: Activity Type Activity Date Activity User E-sign Co-sign Detail Recorded Client Recorded Date Recorded By Document 05/01/24 14:09 DL [id number] 05/01/24 14:10 DL Document 05/15/24 13:20 JF [id number] 05/15/24 13:21 JF Document 05/15/24 14:14 DL [id number] 05/15/24 14:15 DL 05/01/24 05/15/24 05/15/24 14:09 13:20 14:14 Wound Care Center Nurse 3 #14- L SACRAL POST OP -Ulcer Cleansing Rinsed/ Rinsed/ Irrigated with Irrigated with Saline Saline -Foul Odor after Cleansing No No -Primary Dressing Applied Mepilex Border, Mepilex Border, Silvercel Silvercel -Mepilex Border 1 1 -Silvercel 1 1 Treatment Response Procedure Procedure Tolerated Well Tolerated Well Pain Scale: 0-10 Numeric Is Patient Pain Free? Yes Yes Yes WC - Visit Discharge Discharge Condition Stable Stable Stable Ambulatory Status Wheelchair Wheelchair Wheelchair Transportation Private Auto Private Auto Medication Reconcilliation completed & Yes provided to patient/care provider Clinical Summary of Care Provided Yes Notes: Bandaid and bacitracin provided to right 2nd toe Facility Type Home Health Home Health Orders Sent Yes Yes Assessment/Plan Assessment/Plan (1) Pressure injury of sacral region, stage 4: CODE(S): L89.154 - Pressure ulcer of sacral region, stage 4 (2) Osteomyelitis of sacrum: CODE(S): M46.28 - Osteomyelitis of vertebra, sacral and sacrococcygeal region (3) Diabetes mellitus: CODE(S): E11.9 - Type 2 diabetes mellitus without complications QUALIFIERS: Diabetes mellitus type: type 2 Diabetes mellitus complication status: with skin complications (4) Tobacco use disorder: CODE(S): F17.200 - Nicotine dependence, unspecified, uncomplicated (5) Paraplegia: CODE(S): G82.20 - Paraplegia, unspecified (6) Smoker: CODE(S): F17.200 - Nicotine dependence, unspecified, uncomplicated PLAN: Plan Wound care -Silver cell top with gauze covered with ABD or Mepilex dressings daily. Wash ulcer and vivi wound with soap and water at the time of the dressing change. Surgery 01/01/24 - Excision sacral pressure sore, Stage IV, with partial ostectomy for osteomyelitis. Pathology of sacral bone consistent with chronic osteomyelitis. Soft tissue and skin of sacral region showed ulceration with associated acute and chronic i nflammation and granulation. Operative bone culture from 01/01/24 positive for Staphylococcus haemolyticus. She will be treated for 6 weeks for positive bone cultures. Operative tissue culture from 01/01/24 positive for Corynebacterium striatum, Strep anginosus, Prevotella disiens, and Anaerobic cocci. She will be treated with Doxycycline and Augmentin. Wound culture 12/26/22 positive for Proteus miriabilis, Enterococcus faecalis, Streptococcus agalactiae, Anaerobic cocci and Bacteroides fragilis. She was treated with Augmentin. Wound culture from 01/23/23 was positive for MRSA and Morganella morganii. MRSA was treated with Doxycycline. Wound culture 04/03/23 positive for Proteus mirabilis, Enterococcus faecalis, and Anaerobic cocci. She is being treated with Augmentin. Wound culture from 07/03/23 positive for Proteus mirabilis and Enterococcus faecalis which was treated with Augmentin. A wound culture was obtained on 08/23/23. It was negative. CT Pelvis was done on 09/20/23. It showed evidence of tissue defect in the medial aspect of the right buttock abutting the distal sacrum. This most likely represents an ulcerated pressure ulcer. Normal urinary bladder. Normal visualized small intestine. Moderate amount of fecal material is seen in the colon. There is no pelvic fluid. There is no pelvic mass lesion or lymphadenopathy. There is diffuse atherosclerotic calcification of the pelvic arteries. Phleboliths are seen in the pelvis. Normal abdominal wall. Extensive metallic streak artifacts due to fusion with intrapedicular screw and aurelia fixation the lower lumbar spine. She is seeing a circular knife cutter machine today for evaluation of her nutritional status. Follow up two weeks. Due to transportation issues she has difficult time coming weekly.
--- NOTE | 2024-05-17 10:28 | WC ---
PHOTO 05/15/24 SACRAL
== END 2024-05-23 23:59 | disposition home or self-care (01) ==
LOC: WC 13:00
PROVIDERS: PCP Internal Medicine; Referring Provider Nurse Practitioner Family; Visit Provider Nurse Practitioner Family
DX: L89.154 Pressure ulcer of sacral region, stage 4 (principal); G82.20 Paraplegia, unspecified; M46.28 Osteomyelitis of vertebra, sacral and sacrococcygeal region; E11.9 Type 2 diabetes mellitus without complications; F17.200 Nicotine dependence, unspecified, uncomplicated; Z86.14 Personal history of Methicillin resistant Staphylococcus aureus infection
CPT/HCPCS: 11043; 11046; 97802; 99212; G0463

== ENCOUNTER 2024-06-12 13:15 | Outpatient (RCR) | payer MEDICARE, MEDICAID, SELFPAY ==
[2024-05-24 00:39] VITALS: BP 124/78; PULSE 78; RESP 14; TEMP 36.1
[2024-05-29 13:03] VITALS: BP 123/89; PULSE 102; RESP 18; TEMP 36
--- NOTE | 2024-05-29 15:38 | PCM.WC.PN ---
History of Present Illness Date of Service: 05/29/24 Chief Complaint: Sacral ulcer History of Wound: Patient is a 63 year old female who previously was a patient here and known to me, but had back surgery in early September 2022 at [facility] and then went to rehab at [place] after that. She had a aurelia replaced in her back. Before her surgery, she was not able to lie flat due to increased pain, so she spent most of her time in her wheelchair. Now since her surgery, she is in too much back pain to sit in her wheelchair. She presents today with an ulcer to her sacrum. She was in the ED on 12/10/22 for increased wound drainage and was treated with Keflex, which she has completed. She does have home health to assist with dressing changes. She has lost 100 lbs since last being here in early September. Wound culture 12/26/22 positive for Proteus mirabilis, Enterococcus faecalis, Streptococcus agalactiae, Anaerobic cocci and Bacteroides fragilis. She was treated with Augmentin. Wound culture from 01/23/23 was positive for MRSA and Morganella morganii. The MRSA was treated with Doxycycline. Wound culture 04/03/23 positive for Proteus mirabilis, Enterococcus faecalis, and Anaerobic cocci. She was treated with Augmentin. Wound culture from 07/03/23 positive for Proteus mirabilis and Enterococcus faecalis which was treated with Augmentin. Wound culture was done on 08/23/23. It was negative. She had CT Pelvis on 09/20/23. It showed evidence of tissue defect in the medial aspect of the right buttock abutting the distal sacrum. This most likely represents an ulcerated pressure ulcer. Normal urinary bladder. Normal visualized small intestine. Moderate amount of fecal material is seen in the colon. There is no pelvic fluid. There is no pelvic mass lesion or lymphadenopathy. There is diffuse atherosclerotic calcification of the pelvic arteries. Phleboliths are seen in the pelvis. Normal abdominal wall. Extensive metallic streak artifacts due to fusion with intrapedicular screw and aurelia fixation the lower lumbar spine. Surgery 01/01/24 - Excision sacral pressure sore, Stage IV, with partial ostectomy for osteomyelitis. Pathology of sacral bone consistent with chronic osteomyelitis. Soft tissue and skin of sacral region showed ulceration with associated acute and chronic inflammation and granulation. Operative bone culture from 01/01/24 positive for Staphylococcus haemolyticus. She will be treated for 6 weeks for positive bone cultures. Operative tissue culture from 01/01/24 positive for Corynebacterium striatum, Strep anginosus, Prevotella disiens, and Anaerobic cocci. She will be treated with Doxycycline and Augmentin. Today she denies fever. Her appetite is ok. Progress of Wound: The ulcer is beefy pink color, it is slightly smaller. The bone is palpable and covered covered with granulation tissue. The under mining has decreased. Vivi wound is clear. Objective Data Objective Data Vital Signs: Vital Signs Temp Pulse Resp BP O2 Del Method 96.8 F L 102 H 18 123/89 H Room Air 05/29/24 13:03 05/29/24 13:03 05/29/24 13:03 05/29/24 13:03 05/29/24 13:03 Oxygen Delivery Method Room Air Weight: 149 lb 14.629 oz Charges/Coding Procedures Integumentary [id number]: [id number] Shila musc/fascia 20 sq cm/< Debridement Note Debridement Note Wound debrided: #14 Sacral area. Laterality: Not Applicable Wound Grade/Stage: IV. Type of Debridement: Excisional debridement Anesthesia Used: 5% Lidocaine Gel Depth: Down to and including healthy tissue, in the subcutaneous layer, to muscle and to bone Percentage of wound debrided: 100 Instrument Used: 5mm curette Tissue Removed: subcutaneous tissue, senescent cells, devitalized tissue and muscle Severity: Fat Layer Exposed (muscle is exposed. bone is palpable but not exposed.) Amount of bleeding with debridement: Mild Bleeding Controlled with: Pressure and Compression and gauze Patient tolerated procedure: Patient tolerated procedure well Post-Debridement Measurements and Additional Note: Post-Debridement Measurements/Treatment - Nurse 1 - General Ulcer Assessment Start: 05/29/24 13:03 Freq: Status: Active Protocol: [email or web address] Activity Type Activity Date Activity User E-sign Co-sign Detail Recorded Client Recorded Date Recorded By Document 05/29/24 13:03 JOSE [id number] 05/29/24 13:14 JOSE 05/29/24 13:03 - Today's Visit Information Type of service Follow-up Visit (Physician/[employer] ) Arrival Mode Wheelchair Patient Identification Verified (Name & Yes ) Vital Signs Temperature (97.8 F-99.1 F) 96.8 F L Temperature Source Temporal Pulse Rate (60-100) 102 H Pulse Location Monitor Respiratory Rate (12-18) 18 Respiratory rate source Observation Oxygen Delivery Method Room Air Blood Pressure (90/60-120/80) 123/89 H Blood Pressure Mean (mm Hg) 100 Source Monitor Position Sitting Blood Pressure Location Left Arm History Since Last Visit- (Skip if this is Patient's initial visit) Have you changed medications since your No last visit? Any new allergies or adverse reactions No Had a fall/change in ADL's that may No increase risk of falls Signs or symptoms of abuse and/or No neglect since last visit Have you been in the hospital since your No last visit? Has dressing in place as prescribed Yes Has compression in place as prescribed N/A Has offloadiing in place as prescribed N/A Experienced any changes in pain level or No management Left Footwear Slipper Right Footwear Slipper Pain Scale: 0-10 Numeric Is Patient Pain Free? Yes WC - Nurse 1 - General Ulcer Measurement Start: 05/29/24 13:03 Freq: Status: Active Protocol: Activity Type Activity Date Activity User E-sign Co-sign Detail Recorded Client Recorded Date Recorded By Document 05/29/24 13:03 JOSE [id number] 05/29/24 13:14 05/29/24 13:03 Wound Center Nurse 1 #14- L SACRAL POST OP -Current Size (cm) - Length 4.4 -Current Size (cm) - Width 3 -Current Size (cm) - Depth 0.1 -Total Square Cm 13.2 -Epithelialization Medium 34-66% -Undermining/Tunneling Yes -Undermining/Tunneling Starts (O'clock 6 ) -Undermining/Tunneling Ends (O'clock) 12 -Maximum Distance (cm) 1.5 -Exudate Amt Medium -Exudate Type Serosanguineous -Wound Margin Distinct, Outline Attached -Granulation Amt Large (67-100%) -Granulation Quality [place] -Texture (Vivi-wound Skin Appearance) Assessed -Moisture (Vivi-wound Skin Appearance) Assessed -Color (Vivi-wound Skin Appearance) Assessed -Temperature (Vivi-wound Skin No Abnormality Appearance) (Pt Warm) -Tenderness on Palpation (Vivi-wound No Skin Appearance) -Ulcer Cleansing Rinsed/ Irrigated with Saline -Foul Odor after Cleansing No -Anesthetic Used 5% Lidocaine Gel WC - Nurse 2 - General Ulcer CM Notes Start: 05/29/24 13:03 Freq: Status: Active Protocol: Activity Type Activity Date Activity User E-sign Co-sign Detail Recorded Client Recorded Date Recorded By Document 05/29/24 13:52 GM [id number] 05/29/24 13:57 05/29/24 13:52 Wound Center Nurse 2 -Time 13:52 -Correct Patient Yes -Correct Side, Site, Position Yes -Correct Procedure Yes -Procedure Performed Yes -Type of Procedure Debridement -Clinical Debridement Muscle / Fascia -Tissue Removed Subcutaneous, Muscle -Post Debridement (cm) - Length 5.0 -Post Debridement (cm) - Width 3.0 -Post Debridement (cm) - Depth 0.3 -Total Square (Post) (cm) 15.00 -Area of Debridement (cm) - Length 5.0 -Area of Debridement (cm) - Width 3.0 -Total Square (Area) (cm) 15.00 -Tunneling No -Undermining/Tunneling Yes -Undermining/Tunneling Starts (O'clock 11 ) -Undermining/Tunneling Ends (O'clock) 12 -Maximum Distance (cm) 0.8 -Circular Undermining No -Wound/Ulcer Outcome Not Healed -Ulcer Cleansing Rinsed/ Irrigated with Saline -Foul Odor after Cleansing No -Bioengineered Tissue No -Bleeding Controlled with Pressure -Treatment Response Procedure Tolerated Well -Assistive Device(s) Wheelchair -Pressure Reduction Wheelchair cushion -Debridement - Muscle / Fascia, 1st Yes 20sq cm Pain Scale: 0-10 Numeric Is Patient Pain Free? Yes WC - Nurse 3 - General Ulcer D/C NN Start: 05/29/24 13:03 Freq: Status: Active Protocol: Activity Type Activity Date Activity User E-sign Co-sign Detail Recorded Client Recorded Date Recorded By Document 05/29/24 14:16 DL [id number] 05/29/24 14:16 DL Edit Result 05/29/24 14:16 DL (1) [id number] 05/29/24 14:21 DL (1) #14- L SACRAL POST OP - Primary Dressing Applied Mepilex Border, => Hysept ($),Mepilex Silvercel => Border,Silvercel - Wound Comment(s) => dakins given to pt. 05/29/24 14:16 Wound Care Center Nurse 3 #14- L SACRAL POST OP -Ulcer Cleansing Rinsed/ Irrigated with Saline -Foul Odor after Cleansing No -Primary Dressing Applied Hysept ($), Mepilex Border, Silvercel -Mepilex Border 1 -Silvercel 1 -Wound Comment(s) dakins given to pt. Pain Scale: 0-10 Numeric Is Patient Pain Free? Yes WC - Visit Discharge Discharge Condition Stable Ambulatory Status Wheelchair Transportation Private Auto Facility Type Home Health Telephoned (if yes, spoke with:) Yes Assessment/Plan Assessment/Plan (1) Pressure injury of sacral region, stage 4: CODE(S): L89.154 - Pressure ulcer of sacral region, stage 4 (2) Osteomyelitis of sacrum: CODE(S): M46.28 - Osteomyelitis of vertebra, sacral and sacrococcygeal region (3) Diabetes mellitus: CODE(S): E11.9 - Type 2 diabetes mellitus without complications QUALIFIERS: Diabetes mellitus type: type 2 Diabetes mellitus complication status: with skin complications (4) Tobacco use disorder: CODE(S): F17.200 - Nicotine dependence, unspecified, uncomplicated (5) Paraplegia: CODE(S): G82.20 - Paraplegia, unspecified (6) Smoker: CODE(S): F17.200 - Nicotine dependence, unspecified, uncomplicated PLAN: Plan Wound care -Silver cell top with gauze covered with ABD or Mepilex dressings daily. Wash ulcer and vivi wound with soap and water at the time of the dressing change. Surgery 01/01/24 - Excision sacral pressure sore, Stage IV, with partial ostectomy for osteomyelitis. Pathology of sacral bone consistent with chronic osteomyelitis. Soft tissue and skin of sacral region showed ulceration with associated acute and chronic inflammation and granulation. Operative bone culture from 01/01/24 positive for Staphylococcus haemolyticus. She will be treated for 6 weeks for positive bone cultures. Operative tissue culture from 01/01/24 positive for Corynebacterium striatum, Strep anginosus, Prevotella disiens, and Anaerobic cocci. She will be treated with Doxycycline and Augmentin. Wound culture 12/26/22 positive for Proteus miriabilis, Enterococcus faecalis, Streptococcus agalactiae, Anaerobic cocci and Bacteroides fragilis. She was treated with Augmentin. Wound culture from 01/23/23 was positive for MRSA and Morganella morganii. MRSA was treated with Doxycycline. Wound culture 04/03/23 positive for Proteus mirabilis, Enterococcus faecalis, and Anaerobic cocci. She is being treated with Augmentin. Wound culture from 07/03/23 positive for Proteus mirabilis and Enterococcus faecalis which was treated with Augmentin. A wound culture was obtained on 08/23/23. It was negative. CT Pelvis was done on 09/20/23. It showed evidence of tissue defect in the medial aspect of the right buttock abutting the distal sacrum. This most likely represents an ulcerated pressure ulcer. Normal urinary bladder. Normal visualized small intestine. Moderate amount of fecal material is seen in the colon. There is no pelvic fluid. There is no pelvic mass lesion or lymphadenopathy. There is diffuse atherosclerotic calcification of the pelvic arteries. Phleboliths are seen in the pelvis. Normal abdominal wall. Extensive metallic streak artifacts due to fusion with intrapedicular screw and aurelia fixation the lower lumbar spine. She is seeing a defense travel administrator today for evaluation of her nutritional status. Follow up two weeks. Due to transportation issues she has difficult time coming weekly.
[2024-06-12 13:27] VITALS: RESP 16; TEMP 35.9
--- NOTE | 2024-06-12 16:42 | PCM.WC.PN ---
History of Present Illness Date of Service: 06/12/24 Chief Complaint: Sacral ulcer History of Wound: Patient is a 63 year old female who previously was a patient here and known to me, but had back surgery in early September 2022 at [facility] and then went to rehab at [place] after that. She had a aurelia replaced in her back. Before her surgery, she was not able to lie flat due to increased pain, so she spent most of her time in her wheelchair. Now since her surgery, she is in too much back pain to sit in her wheelchair. She presents today with an ulcer to her sacrum. She was in the ED on 12/10/22 for increased wound drainage and was treated with Keflex, which she has completed. She does have home health to assist with dressing changes. She has lost 100 lbs since last being here in early September. Wound culture 12/26/22 positive for Proteus mirabilis, Enterococcus faecalis, Streptococcus agalactiae, Anaerobic cocci and Bacteroides fragilis. She was treated with Augmentin. Wound culture from 01/23/23 was positive for MRSA and Morganella morganii. The MRSA was treated with Doxycycline. Wound culture 04/03/23 positive for Proteus mirabilis, Enterococcus faecalis, and Anaerobic cocci. She was treated with Augmentin. Wound culture from 07/03/23 positive for Proteus mirabilis and Enterococcus faecalis which was treated with Augmentin. Wound culture was done on 08/23/23. It was negative. She had CT Pelvis on 09/20/23. It showed evidence of tissue defect in the medial aspect of the right buttock abutting the distal sacrum. This most likely represents an ulcerated pressure ulcer. Normal urinary bladder. Normal visualized small intestine. Moderate amount of fecal material is seen in the colon. There is no pelvic fluid. There is no pelvic mass lesion or lymphadenopathy. There is diffuse atherosclerotic calcification of the pelvic arteries. Phleboliths are seen in the pelvis. Normal abdominal wall. Extensive metallic streak artifacts due to fusion with intrapedicular screw and uarelia fixation the lower lumbar spine. Surgery 01/01/24 - Excision sacral pressure sore, Stage IV, with partial ostectomy for osteomyelitis. Pathology of sacral bone consistent with chronic osteomyelitis. Soft tissue and skin of sacral region showed ulceration with associated acute and chronic inflammation and granulation. Operative bone culture from 01/01/24 positive for Staphylococcus haemolyticus. She will be treated for 6 weeks for positive bone cultures. Operative tissue culture from 01/01/24 positive for Corynebacterium striatum, Strep anginosus, Prevotella disiens, and Anaerobic cocci. She will be treated with Doxycycline and Augmentin. Today she denies fever. Her appetite is ok. Progress of Wound: The ulcer is pink color, it is slightly smaller. The bone is palpable and covered with granulation tissue. The under mining has decreased. Vivi wound is clear. Objective Data Objective Data Vital Signs: Vital Signs Temp Pulse Resp BP O2 Del Method 96.7 F L 102 H 16 123/89 H Room Air 06/12/24 13:27 05/29/24 13:03 06/12/24 13:27 05/29/24 13:03 06/12/24 13:27 Oxygen Delivery Method Room Air Weight: 149 lb 14.629 oz Charges/Coding Procedures Integumentary 111xxx-113xx: [id number] Shila subq tissue 20 sq cm/< Debridement Note Debridement Note Wound debrided: #14 Sacral area. Laterality: Not Applicable Wound Grade/Stage: IV. Type of Debridement: Excisional debridement Anesthesia Used: 5% Lidocaine Gel Depth: Down to and including healthy tissue, in the subcutaneous layer and to bone Percentage of wound debrided: 100 Instrument Used: 5mm curette Tissue Removed: subcutaneous tissue, senescent cells, devitalized tissue Severity: Fat Layer Exposed (muscle is exposed. bone is palpable but not exposed.) Amount of bleeding with debridement: Mild Bleeding Controlled with: Pressure and Compression and gauze Patient tolerated procedure: Patient tolerated procedure well Post-Debridement Measurements and Additional Note: Post-Debridement Measurements/Treatment - Nurse 1 - General Ulcer Assessment Start: 05/29/24 13:03 Freq: Status: Active Protocol: TAISHA Activity Type Activity Date Activity User E-sign Co-sign Detail Recorded Client Recorded Date Recorded By Document 05/29/24 13:03 [id number] 05/29/24 13:14 Document 06/12/24 13:27 [facility] [id number] 06/12/24 13:36 BM 05/29/24 06/12/24 13:03 13:27 - Today's Visit Information Type of service Follow-up Visit Follow-up Visit (Physician/TOOL ADJUSTER (Physician/TOOL ADJUSTER ) ) Arrival Mode Wheelchair Wheelchair Transfer Assistance Other Transfer Assist (Other) 1 Patient Identification Verified (Name & Yes No ) Patient Requires Transmission-Based No Precautions Vital Signs Temperature (97.8 F-99.1 F) 96.8 F L 96.7 F L Temperature Source Temporal Temporal Pulse Rate (60-100) 102 H Pulse Location Monitor Monitor Respiratory Rate (12-18) 18 16 Respiratory rate source Observation Observation Oxygen Delivery Method Room Air Room Air Blood Pressure (90/60-120/80) 123/89 H Blood Pressure Mean (mm Hg) 100 Source Monitor Monitor Position Sitting Sitting Blood Pressure Location Left Arm Left Arm History Since Last Visit- (Skip if this is Patient's initial visit) Have you changed medications since your No No last visit? Any new allergies or adverse reactions No No Had a fall/change in ADL's that may No No increase risk of falls Signs or symptoms of abuse and/or No No neglect since last visit Have you been in the hospital since your No No last visit? Has dressing in place as prescribed Yes Yes Has compression in place as prescribed N/A N/A Has offloadiing in place as prescribed N/A N/A Experienced any changes in pain level or No No management Left Footwear Slipper Slipper Right Footwear Slipper Slipper Pain Scale: 0-10 Numeric Is Patient Pain Free? Yes Yes - Nurse 1 - General Ulcer Measurement Start: 05/29/24 13:03 Freq: Status: Active Protocol: Activity Type Activity Date Activity User E-sign Co-sign Detail Recorded Client Recorded Date Recorded By Document 05/29/24 13:03 [id number] 05/29/24 13:14 Document 06/12/24 13:27 [facility] [id number] 06/12/24 13:36 [facility] 05/29/24 06/12/24 13:03 13:27 Wound Center Nurse 1 #14- L SACRAL POST OP -Combined with other wound No -Current Size (cm) - Length 4.4 4.7 -Current Size (cm) - Width 3 2.3 -Current Size (cm) - Depth 0.1 0.1 -Total Square Cm 13.2 10.81 -Date of Last Picture (Recall this 06/12/24 field) -Photo Taken Yes -Epithelialization Medium 34-66% -Undermining/Tunneling Yes -Undermining/Tunneling Starts (O'clock 6 10 ) -Undermining/Tunneling Ends (O'clock) 12 12 -Maximum Distance (cm) 1.5 1.4 -Exudate Amt Medium Medium -Exudate Type Serosanguineous Serosanguineous -Wound Margin Distinct, Thickened & Outline Rolled Under Attached -Granulation Amt Large (67-100%) Large (67-100%) -Granulation Quality [place] Red -Necrotic Tissue Type Adherent Slough -Structure Exposed N/A -Texture (Vivi-wound Skin Appearance) Assessed Assessed, Scarring -Moisture (Vivi-wound Skin Appearance) Assessed No Abnormality, Assessed -Color (Vivi-wound Skin Appearance) Assessed No Abnormality, Assessed -Temperature (Vivi-wound Skin No Abnormality No Abnormality Appearance) (Pt Warm) (Pt Warm) -Tenderness on Palpation (Vivi-wound No No Skin Appearance) -Ulcer Cleansing Rinsed/ Rinsed/ Irrigated with Irrigated with Saline Saline -Foul Odor after Cleansing No No -Anesthetic Used 5% Lidocaine 5% Lidocaine Gel Gel WC - Nurse 2 - General Ulcer CM Notes Start: 05/29/24 13:03 Freq: Status: Active Protocol: Activity Type Activity Date Activity User E-sign Co-sign Detail Recorded Client Recorded Date Recorded By Document 05/29/24 13:52 [id number] 05/29/24 13:57 Document 06/12/24 14:19 [id number] 06/12/24 14:24 05/29/24 06/12/24 13:52 14:19 Wound Center Nurse 2 #14- L SACRAL POST OP -Time 13:52 14:19 -Correct Patient Yes Yes -Correct Side, Site, Position Yes Yes -Correct Procedure Yes Yes -Procedure Performed Yes Yes -Type of Procedure Debridement Debridement -Clinical Debridement Muscle / Fascia Subcutaneous -Tissue Removed Subcutaneous, Subcutaneous Muscle -Post Debridement (cm) - Length 5.0 4.0 -Post Debridement (cm) - Width 3.0 2.2 -Post Debridement (cm) - Depth 0.3 0.3 -Total Square (Post) (cm) 15.00 8.80 -Area of Debridement (cm) - Length 5.0 4.0 -Area of Debridement (cm) - Width 3.0 2.2 -Total Square (Area) (cm) 15.00 8.80 -Tunneling No No -Undermining/Tunneling Yes Yes -Undermining/Tunneling Starts (O'clock 11 11 ) -Undermining/Tunneling Ends (O'clock) 12 12 -Maximum Distance (cm) 0.8 0.7 -Circular Undermining No -Wound/Ulcer Outcome Not Healed Not Healed -Ulcer Cleansing Rinsed/ Rinsed/ Irrigated with Irrigated with Saline Saline -Foul Odor after Cleansing No No -Bioengineered Tissue No No -Bleeding Controlled with Pressure Pressure -Treatment Response Procedure Procedure Tolerated Well Tolerated Well -Assistive Device(s) Wheelchair -Pressure Reduction Wheelchair cushion -Debridement - Subq, 1st 20sq cm Yes -Debridement - Muscle / Fascia, 1st Yes 20sq cm Pain Scale: 0-10 Numeric Is Patient Pain Free? Yes Yes - Nurse 3 - General Ulcer D/C NN Start: 05/29/24 13:03 Freq: Status: Active Protocol: Activity Type Activity Date Activity User E-sign Co-sign Detail Recorded Client Recorded Date Recorded By Document 05/29/24 14:16 DL [id number] 05/29/24 14:16 DL Edit Result 05/29/24 14:16 DL (1) [id number] 05/29/24 14:21 DL Document 06/12/24 14:34 DL [id number] 06/12/24 14:35 DL (1) #14- L SACRAL POST OP - Primary Dressing Applied Mepilex Border, => Hysept ($),Mepilex Silvercel => Border,Silvercel - Wound Comment(s) => dakins given to pt. 05/29/24 06/12/24 14:16 14:34 Wound Care Center Nurse 3 #14- L SACRAL POST OP -Ulcer Cleansing Rinsed/ dakins Irrigated with Saline -Foul Odor after Cleansing No No -Primary Dressing Applied Hysept ($), Mepilex Border, Mepilex Border, Silvercel Silvercel -Mepilex Border 1 1 -Silvercel 1 1 -Wound Comment(s) dakins given to pt. Treatment Response Procedure Tolerated Well Pain Scale: 0-10 Numeric Is Patient Pain Free? Yes Yes WC - Visit Discharge Discharge Condition Stable Stable Ambulatory Status Wheelchair Wheelchair Transportation Private Auto Private Auto Facility Type Home Health Home Health Telephoned (if yes, spoke with:) Yes Orders Sent Yes Assessment/Plan Assessment/Plan (1) Pressure injury of sacral region, stage 4: CODE(S): L89.154 - Pressure ulcer of sacral region, stage 4 (2) Osteomyelitis of sacrum: CODE(S): M46.28 - Osteomyelitis of vertebra, sacral and sacrococcygeal region (3) Diabetes mellitus: CODE(S): E11.9 - Type 2 diabetes mellitus without complications QUALIFIERS: Diabetes mellitus type: type 2 Diabetes mellitus complication status: with skin complications (4) Tobacco use disorder: CODE(S): F17.200 - Nicotine dependence, unspecified, uncomplicated (5) Paraplegia: CODE(S): G82.20 - Paraplegia, unspecified (6) Smoker: CODE(S): F17.200 - Nicotine dependence, unspecified, uncomplicated PLAN: Plan Wound care -Silver cell top with gauze covered with ABD or Mepilex dressings daily. Wash ulcer and vivi wound with soap and water and wipe with Dakin's solution at the time of the dressing change. Surgery 01/01/24 - Excision sacral pressure sore, Stage IV, with partial ostectomy for osteomyelitis. Pathology of sacral bone consistent with chronic osteomyelitis. Soft tissue and skin of sacral region showed ulceration with associated acute and chronic inflammation and granulation. Operative bone culture from 01/01/24 positive for Staphylococcus haemolyticus. She will be treated for 6 weeks for positive bone cultures. Operative tissue culture from 01/01/24 positive for Corynebacterium striatum, Strep anginosus, Prevotella disiens, and Anaerobic cocci. She will be treated with Doxycycline and Augmentin. Wound culture 12/26/22 positive for Proteus miriabilis, Enterococcus faecalis, Streptococcus agalactiae, Anaerobic cocci and Bacteroides fragilis. She was treated with Augmentin. Wound culture from 01/23/23 was positive for MRSA and Morganella morganii. MRSA was treated with Doxycycline. Wound culture 04/03/23 positive for Proteus mirabilis, Enterococcus faecalis, and Anaerobic cocci. She is being treated with Augmentin. Wound culture from 07/03/23 positive for Proteus mirabilis and Enterococcus faecalis which was treated with Augmentin. A wound culture was obtained on 08/23/23. It was negative. CT Pelvis was done on 09/20/23. It showed evidence of tissue defect in the medial aspect of the right buttock abutting the distal sacrum. This most likely represents an ulcerated pressure ulcer. Normal urinary bladder. Normal visualized small intestine. Moderate amount of fecal material is seen in the colon. There is no pelvic fluid. There is no pelvic mass lesion or lymphadenopathy. There is diffuse atherosclerotic calcification of the pelvic arteries. Phleboliths are seen in the pelvis. Normal abdominal wall. Extensive metallic streak artifacts due to fusion with intrapedicular screw and aurelia fixation the lower lumbar spine. She has seen insurance plan specialist for evaluation of her nutritional status. Follow up three weeks. Due to transportation issues she has difficult time coming weekly.
--- NOTE | 2024-06-13 08:53 | WC ---
PHOTO 06/12/24 SACRAL
== END 2024-06-22 23:59 | disposition home or self-care (01) ==
LOC: WC 13:15
PROVIDERS: PCP Internal Medicine; Referring Provider Nurse Practitioner Family; Visit Provider Nurse Practitioner Family
DX: L89.154 Pressure ulcer of sacral region, stage 4 (principal); G82.20 Paraplegia, unspecified; M46.28 Osteomyelitis of vertebra, sacral and sacrococcygeal region; E11.69 Type 2 diabetes mellitus with other specified complication; F17.200 Nicotine dependence, unspecified, uncomplicated
CPT/HCPCS: 11042; 11043; 97803

== ENCOUNTER 2024-07-22 13:00 | Outpatient (RCR) | payer MEDICARE, MEDICAID, SELFPAY ==
[2024-06-23 00:25] VITALS: BP 124/78; PULSE 78; RESP 14; TEMP 36.1
[2024-07-03 12:56] VITALS: BP 110/74; PULSE 76; RESP 18; TEMP 36
--- NOTE | 2024-07-03 17:07 | PCM.WC.PN ---
History of Present Illness Date of Service: 07/03/24 Chief Complaint: Sacral ulcer History of Wound: Patient is a 63 year old female who previously was a patient here and known to me, but had back surgery in early September 2022 at [facility] and then went to rehab at [place] after that. She had a aurelia replaced in her back. Before her surgery, she was not able to lie flat due to increased pain, so she spent most of her time in her wheelchair. Now since her surgery, she is in too much back pain to sit in her wheelchair. She presents today with an ulcer to her sacrum. She was in the ED on 12/10/22 for increased wound drainage and was treated with Keflex, which she has completed. She does have home health to assist with dressing changes. She has lost 100 lbs since last being here in early September. Wound culture 12/26/22 positive for Proteus mirabilis, Enterococcus faecalis, Streptococcus agalactiae, Anaerobic cocci and Bacteroides fragilis. She was treated with Augmentin. Wound culture from 01/23/23 was positive for MRSA and Morganella morganii. The MRSA was treated with Doxycycline. Wound culture 04/03/23 positive for Proteus mirabilis, Enterococcus faecalis, and Anaerobic cocci. She was treated with Augmentin. Wound culture from 07/03/23 positive for Proteus mirabilis and Enterococcus faecalis which was treated with Augmentin. Wound culture was done on 08/23/23. It was negative. She had CT Pelvis on 09/20/23. It showed evidence of tissue defect in the medial aspect of the right buttock abutting the distal sacrum. This most likely represents an ulcerated pressure ulcer. Normal urinary bladder. Normal visualized small intestine. Moderate amount of fecal material is seen in the colon. There is no pelvic fluid. There is no pelvic mass lesion or lymphadenopathy. There is diffuse atherosclerotic calcification of the pelvic arteries. Phleboliths are seen in the pelvis. Normal abdominal wall. Extensive metallic streak artifacts due to fusion with intrapedicular screw and aurelia fixation the lower lumbar spine. Surgery 01/01/24 - Excision sacral pressure sore, Stage IV, with partial ostectomy for osteomyelitis. Pathology of sacral bone consistent with chronic osteomyelitis. Soft tissue and skin of sacral region showed ulceration with associated acute and chronic inflammation and granulation. Operative bone culture from 01/01/24 positive for Staphylococcus haemolyticus. She will be treated for 6 weeks for positive bone cultures. Operative tissue culture from 01/01/24 positive for Corynebacterium striatum, Strep anginosus, Prevotella disiens, and Anaerobic cocci. She will be treated with Doxycycline and Augmentin. Today she denies fever. Her appetite is ok. Progress of Wound: The ulcer is pink color, it is slightly smaller. Able to palpate a very tiny piece of bone, most of it is covered with granulation tissue. The under mining has resolved. Were the undermining was located, there is excess skin that folds over and when retracting that tissue back, you can see there is not undermining, just folded over skin. Vivi wound is clear. Objective Data Objective Data Vital Signs: Vital Signs Temp Pulse Resp BP 96.8 F L 76 18 110/74 07/03/24 12:56 07/03/24 12:56 07/03/24 12:56 07/03/24 12:56 Weight: 149 lb 14.629 oz Charges/Coding Procedures Integumentary 111xxx-113xx: 42432 Shila musc/fascia 20 sq cm/< Debridement Note Debridement Note Wound debrided: #14 Sacral area. Laterality: Not Applicable Wound Grade/Stage: IV. Type of Debridement: Excisional debridement Anesthesia Used: 5% Lidocaine Gel Depth: Down to and including healthy tissue, in the subcutaneous layer and to bone Percentage of wound debrided: 100 Instrument Used: 5mm curette Tissue Removed: subcutaneous tissue, senescent cells, devitalized tissue Severity: Fat Layer Exposed (muscle is exposed. bone is palpable but not exposed.) Amount of bleeding with debridement: Mild Bleeding Controlled with: Pressure and Compression and gauze Patient tolerated procedure: Patient tolerated procedure well Post-Debridement Measurements and Additional Note: Post-Debridement Measurements/Treatment SCOTTY - Nurse 1 - General Ulcer Assessment Start: 07/03/24 12:55 Freq: Status: Active Protocol: TAISHA Activity Type Activity Date Activity User E-sign Co-sign Detail Recorded Client Recorded Date Recorded By Document 07/03/24 12:56 DL [id number] 07/03/24 13:04 DL 07/03/24 12:56 - Today's Visit Information Type of service Follow-up Visit (Physician/FINANCE CONSULTANT ) Arrival Mode Wheelchair Transfer Assist (Other) x2 Patient Identification Verified (Name & Yes ) Patient Requires Transmission-Based No Precautions Vital Signs Temperature (97.8 F-99.1 F) 96.8 F L Temperature Source Temporal Pulse Rate (60-100) 76 Pulse Location Monitor Respiratory Rate (12-18) 18 Respiratory rate source Observation Blood Pressure (90/60-120/80) 110/74 Blood Pressure Mean (mm Hg) 86 Source Monitor History Since Last Visit- (Skip if this is Patient's initial visit) Have you changed medications since your No last visit? Any new allergies or adverse reactions No Had a fall/change in ADL's that may No increase risk of falls Signs or symptoms of abuse and/or No neglect since last visit Have you been in the hospital since your No last visit? Has dressing in place as prescribed Yes Has compression in place as prescribed N/A Has offloadiing in place as prescribed Yes Experienced any changes in pain level or No management Pain Scale: 0-10 Numeric Is Patient Pain Free? Yes WC - Nurse 1 - General Ulcer Measurement Start: 07/03/24 12:55 Freq: Status: Active Protocol: Activity Type Activity Date Activity User E-sign Co-sign Detail Recorded Client Recorded Date Recorded By Document 07/03/24 12:56 DL [id number] 07/03/24 13:04 DL 07/03/24 12:56 Wound Center Nurse 1 #14- L SACRAL POST OP -Current Size (cm) - Length 4.3 -Current Size (cm) - Width 2.9 -Current Size (cm) - Depth 0.2 -Total Square Cm 12.47 -Exudate Amt Medium -Exudate Type Serosanguineous -Wound Margin Thickened & Rolled Under -Granulation Amt Large (67-100%) -Granulation Quality [place],Red -Necrosis Amt Small (1-33%) -Necrotic Tissue Type Adherent Slough -Structure Exposed N/A -Texture (Vivi-wound Skin Appearance) Scarring -Moisture (Vivi-wound Skin Appearance) No Abnormality -Color (Vivi-wound Skin Appearance) No Abnormality -Temperature (Vivi-wound Skin No Abnormality Appearance) (Pt Warm) -Tenderness on Palpation (Vivi-wound No Skin Appearance) -Ulcer Cleansing Soap and Water -Foul Odor after Cleansing No -Anesthetic Used 5% Lidocaine Gel WC - Nurse 2 - General Ulcer CM Notes Start: 07/03/24 12:55 Freq: Status: Active Protocol: Activity Type Activity Date Activity User E-sign Co-sign Detail Recorded Client Recorded Date Recorded By Document 07/03/24 13:44 [id number] 07/03/24 13:48 07/03/24 13:44 Wound Center Nurse 2 -Time 13:44 -Correct Patient Yes -Correct Side, Site, Position Yes -Correct Procedure Yes -Procedure Performed Yes -Type of Procedure Debridement -Clinical Debridement Muscle / Fascia -Tissue Removed Muscle -Post Debridement (cm) - Length 5.0 -Post Debridement (cm) - Width 2.3 -Post Debridement (cm) - Depth 0.1 -Total Square (Post) (cm) 11.50 -Area of Debridement (cm) - Length 5.0 -Area of Debridement (cm) - Width 2.3 -Total Square (Area) (cm) 11.50 -Tunneling No -Undermining/Tunneling No -Circular Undermining No -Wound/Ulcer Outcome Not Healed -Ulcer Cleansing Rinsed/ Irrigated with Saline -Foul Odor after Cleansing No -Bioengineered Tissue No -Bleeding Controlled with Pressure -Treatment Response Procedure Tolerated Well -Offloading No -Debridement - Muscle / Fascia, 1st Yes 20sq cm Pain Scale: 0-10 Numeric Is Patient Pain Free? Yes - Nurse 3 - General Ulcer D/C NN Start: 07/03/24 12:55 Freq: Status: Active Protocol: Activity Type Activity Date Activity User E-sign Co-sign Detail Recorded Client Recorded Date Recorded By Document 07/03/24 13:57 [facility] [id number] 07/03/24 13:58 [facility] 07/03/24 13:57 Wound Care Center Nurse 3 #14- L SACRAL POST OP -Primary Dressing Applied Mepilex Border, Silvercel -Other Dressing drsg per kw space control supervisor -Mepilex Border 1 -Silvercel 1 Treatment Response Procedure Tolerated Well Pain Scale: 0-10 Numeric Is Patient Pain Free? Yes WC - Visit Discharge Discharge Condition Stable Ambulatory Status Wheelchair Transportation Private Auto Accompanied by [facility] in [facility] Assessment/Plan Assessment/Plan (1) Pressure injury of sacral region, stage 4: CODE(S): L89.154 - Pressure ulcer of sacral region, stage 4 (2) Osteomyelitis of sacrum: CODE(S): M46.28 - Osteomyelitis of vertebra, sacral and sacrococcygeal region (3) Diabetes mellitus: CODE(S): E11.9 - Type 2 diabetes mellitus without complications QUALIFIERS: Diabetes mellitus type: type 2 Diabetes mellitus complication status: with skin complications (4) Tobacco use disorder: CODE(S): F17.200 - Nicotine dependence, unspecified, uncomplicated (5) Paraplegia: CODE(S): G82.20 - Paraplegia, unspecified (6) Smoker: CODE(S): F17.200 - Nicotine dependence, unspecified, uncomplicated PLAN: Plan Wound care -Silver cell top with gauze covered with ABD or Mepilex dressings daily. Wash ulcer and vivi wound with soap and water and wipe with Dakin's solution at the time of the dressing change. Surgery 01/01/24 - Excision sacral pressure sore, Stage IV, with partial ostectomy for osteomyelitis. Pathology of sacral bone consistent with chronic osteomyelitis. Soft tissue and skin of sacral region showed ulceration with associated acute and chronic inflammation and granulation. Operative bone culture from 01/01/24 positive for Staphylococcus haemolyticus. She will be treated for 6 weeks for positive bone cultures. Operative tissue culture from 01/01/24 positive for Corynebacterium striatum, Strep anginosus, Prevotella disiens, and Anaerobic cocci. She will be treated with Doxycycline and Augmentin. CT Pelvis was done on 09/20/23. It showed evidence of tissue defect in the medial aspect of the right buttock abutting the distal sacrum. This most likely represents an ulcerated pressure ulcer. Normal urinary bladder. Normal visualized small intestine. Moderate amount of fecal material is seen in the colon. There is no pelvic fluid. There is no pelvic mass lesion or lymphadenopathy. There is diffuse atherosclerotic calcification of the pelvic arteries. Phleboliths are seen in the pelvis. Normal abdominal wall. Extensive metallic streak artifacts due to fusion with intrapedicular screw and aurelia fixation the lower lumbar spine. She has seen rail car painter/sandblaster for evaluation of her nutritional status. Follow up three weeks. Due to transportation issues she has difficult time coming weekly.
[2024-07-22 13:06] VITALS: BP 122/87; PULSE 94; RESP 20; TEMP 36.3
--- NOTE | 2024-07-22 15:48 | PCM.WC.PN ---
History of Present Illness Date of Service: 07/22/24 Chief Complaint: Sacral ulcer History of Wound: Patient is a 63 year old female who previously was a patient here and known to me, but had back surgery in early September 2022 at [facility] and then went to rehab at [place] after that. She had a aurelia replaced in her back. Before her surgery, she was not able to lie flat due to increased pain, so she spent most of her time in her wheelchair. Now since her surgery, she is in too much back pain to sit in her wheelchair. She presents today with an ulcer to her sacrum. She was in the ED on 12/10/22 for increased wound drainage and was treated with Keflex, which she has completed. She does have home health to assist with dressing changes. She has lost 100 lbs since last being here in early September. Wound culture 12/26/22 positive for Proteus mirabilis, Enterococcus faecalis, Streptococcus agalactiae, Anaerobic cocci and Bacteroides fragilis. She was treated with Augmentin. Wound culture from 01/23/23 was positive for MRSA and Morganella morganii. The MRSA was treated with Doxycycline. Wound culture 04/03/23 positive for Proteus mirabilis, Enterococcus faecalis, and Anaerobic cocci. She was treated with Augmentin. Wound culture from 07/03/23 positive for Proteus mirabilis and Enterococcus faecalis which was treated with Augmentin. Wound culture was done on 08/23/23. It was negative. She had CT Pelvis on 09/20/23. It showed evidence of tissue defect in the medial aspect of the right buttock abutting the distal sacrum. This most likely represents an ulcerated pressure ulcer. Normal urinary bladder. Normal visualized small intestine. Moderate amount of fecal material is seen in the colon. There is no pelvic fluid. There is no pelvic mass lesion or lymphadenopathy. There is diffuse atherosclerotic calcification of the pelvic arteries. Phleboliths are seen in the pelvis. Normal abdominal wall. Extensive metallic streak artifacts due to fusion with intrapedicular screw and aurelia fixation the lower lumbar spine. Surgery 01/01/24 - Excision sacral pressure sore, Stage IV, with partial ostectomy for osteomyelitis. Pathology of sacral bone consistent with chronic osteomyelitis. Soft tissue and skin of sacral region showed ulceration with associated acute and chronic inflammation and granulation. Operative bone culture from 01/01/24 positive for Staphylococcus haemolyticus. She will be treated for 6 weeks for positive bone cultures. Operative tissue culture from 01/01/24 positive for Corynebacterium striatum, Strep anginosus, Prevotella disiens, and Anaerobic cocci. She will be treated with Doxycycline and Augmentin. Today she denies fever. Her appetite is ok. Progress of Wound: The ulcer is pink color, it is slightly smaller. Vivi wound is clear. Objective Data Objective Data Vital Signs: Vital Signs Temp Pulse Resp BP 97.4 F L 94 20 H 122/87 H 07/22/24 13:06 07/22/24 13:06 07/22/24 13:06 07/22/24 13:06 Weight: 149 lb 14.629 oz Charges/Coding Procedures Integumentary 111xxx-113xx: [id number] Shila musc/fascia 20 sq cm/< Debridement Note Debridement Note Wound debrided: #14 Sacral area. Laterality: Not Applicable Wound Grade/Stage: IV. Type of Debridement: Excisional debridement Anesthesia Used: 5% Lidocaine Gel Depth: Down to and including healthy tissue, in the subcutaneous layer and to bone Percentage of wound debrided: 100 Instrument Used: 5mm curette Tissue Removed: subcutaneous tissue, senescent cells, devitalized tissue, into the muscle Severity: Fat Layer Exposed (muscle is exposed. bone is palpable but not exposed.) Amount of bleeding with debridement: Mild Bleeding Controlled with: Pressure and Compression and gauze Patient tolerated procedure: Patient tolerated procedure well Post-Debridement Measurements and Additional Note: Post-Debridement Measurements/Treatment - Nurse 1 - General Ulcer Assessment Start: 07/03/24 12:55 Freq: Status: Active Protocol: TAISHA Activity Type Activity Date Activity User E-sign Co-sign Detail Recorded Client Recorded Date Recorded By Document 07/03/24 12:56 DL [id number] 07/03/24 13:04 DL Document 07/22/24 13:06 DL [id number] 07/22/24 13:19 DL 07/03/24 07/22/24 12:56 13:06 - Today's Visit Information Type of service Follow-up Visit Follow-up Visit (Physician/DIRECTOR OF SOFTWARE DEVELOPMENT (Physician/DIRECTOR OF SOFTWARE DEVELOPMENT ) ) Arrival Mode Wheelchair Wheelchair Transfer Assistance None Transfer Assist (Other) x2 Patient Identification Verified (Name & Yes Yes ) Patient Requires Transmission-Based No No Precautions Vital Signs Temperature (97.8 F-99.1 F) 96.8 F L 97.4 F L Temperature Source Temporal Temporal Pulse Rate (60-100) 76 94 Pulse Location Monitor Monitor Respiratory Rate (12-18) 18 20 H Respiratory rate source Observation Observation Blood Pressure (90/60-120/80) 110/74 122/87 H Blood Pressure Mean (mm Hg) 86 98 Source Monitor Monitor History Since Last Visit- (Skip if this is Patient's initial visit) Have you changed medications since your No No last visit? Any new allergies or adverse reactions No No Had a fall/change in ADL's that may No No increase risk of falls Signs or symptoms of abuse and/or No No neglect since last visit Have you been in the hospital since your No No last visit? Has dressing in place as prescribed Yes Yes Has compression in place as prescribed N/A N/A Has offloadiing in place as prescribed Yes Yes Experienced any changes in pain level or No No management Pain Scale: 0-10 Numeric Is Patient Pain Free? Yes Yes WC - Nurse 1 - General Ulcer Measurement Start: 07/03/24 12:55 Freq: Status: Active Protocol: Activity Type Activity Date Activity User E-sign Co-sign Detail Recorded Client Recorded Date Recorded By Document 07/03/24 12:56 DL [id number] 07/03/24 13:04 DL Document 07/22/24 13:06 DL [id number] 07/22/24 13:19 DL 07/03/24 07/22/24 12:56 13:06 Wound Center Nurse 1 #14- L SACRAL POST OP -Current Size (cm) - Length 4.3 4.2 -Current Size (cm) - Width 2.9 2.2 -Current Size (cm) - Depth 0.2 0.1 -Total Square Cm 12.47 9.24 -Photo Taken Yes -Exudate Amt Medium Medium -Exudate Type Serosanguineous Serosanguineous -Wound Margin Thickened & Thickened & Rolled Under Rolled Under -Granulation Amt Large (67-100%) Large (67-100%) -Granulation Quality [place],Red Red -Slough/Fibrin Yes -Necrosis Amt Small (1-33%) Small (1-33%) -Necrotic Tissue Type Adherent Slough Adherent Slough -Structure Exposed N/A N/A -Texture (Vivi-wound Skin Appearance) Scarring Scarring -Moisture (Vivi-wound Skin Appearance) No Abnormality No Abnormality -Color (Vivi-wound Skin Appearance) No Abnormality No Abnormality -Temperature (Vivi-wound Skin No Abnormality No Abnormality Appearance) (Pt Warm) (Pt Warm) -Tenderness on Palpation (Vivi-wound No Skin Appearance) -Ulcer Cleansing Soap and Water Soap and Water -Foul Odor after Cleansing No No -Anesthetic Used 5% Lidocaine 5% Lidocaine Gel Gel - Nurse 2 - General Ulcer CM Notes Start: 07/03/24 12:55 Freq: Status: Active Protocol: Activity Type Activity Date Activity User E-sign Co-sign Detail Recorded Client Recorded Date Recorded By Document 07/03/24 13:44 [id number] 07/03/24 13:48 Document 07/22/24 13:39 [id number] 07/22/24 13:43 07/03/24 07/22/24 13:44 13:39 Wound Center Nurse 2 #14- L SACRAL POST OP -Time 13:44 13:40 -Correct Patient Yes Yes -Correct Side, Site, Position Yes Yes -Correct Procedure Yes Yes -Procedure Performed Yes Yes -Type of Procedure Debridement Debridement -Clinical Debridement Muscle / Fascia Muscle / Fascia -Tissue Removed Muscle Muscle -Post Debridement (cm) - Length 5.0 4.3 -Post Debridement (cm) - Width 2.3 2.0 -Post Debridement (cm) - Depth 0.1 0.1 -Total Square (Post) (cm) 11.50 8.60 -Area of Debridement (cm) - Length 5.0 4.3 -Area of Debridement (cm) - Width 2.3 2.0 -Total Square (Area) (cm) 11.50 8.60 -Tunneling No No -Undermining/Tunneling No No -Circular Undermining No No -Wound/Ulcer Outcome Not Healed Not Healed -Ulcer Cleansing Rinsed/ Rinsed/ Irrigated with Irrigated with Saline Saline -Foul Odor after Cleansing No No -Bioengineered Tissue No No -Bleeding Controlled with Pressure Pressure -Treatment Response Procedure Procedure Tolerated Well Tolerated Well -Offloading No -Debridement - Muscle / Fascia, 1st Yes Yes 20sq cm Pain Scale: 0-10 Numeric Is Patient Pain Free? Yes Yes - Nurse 3 - General Ulcer D/C NN Start: 07/03/24 12:55 Freq: Status: Active Protocol: Activity Type Activity Date Activity User E-sign Co-sign Detail Recorded Client Recorded Date Recorded By Document 07/03/24 13:57 [facility] [id number] 07/03/24 13:58 [facility] Document 07/22/24 13:51 [id number] 07/22/24 13:52 07/03/24 07/22/24 13:57 13:51 Wound Care Center Nurse 3 #14- L SACRAL POST OP -Ulcer Cleansing Not Cleansed -Foul Odor after Cleansing No -Primary Dressing Applied Mepilex Border, Mepilex Border, Silvercel Silvercel -Other Dressing drsg per kw final inspector shuttle -Mepilex Border 1 2 -Silvercel 1 1 Treatment Response Procedure Tolerated Well Pain Scale: 0-10 Numeric Is Patient Pain Free? Yes Yes WC - Visit Discharge Discharge Condition Stable Stable Ambulatory Status Wheelchair Wheelchair Transportation Private Auto Private Auto Accompanied by spike waits in lobby Assessment/Plan Assessment/Plan (1) Pressure injury of sacral region, stage 4: CODE(S): L89.154 - Pressure ulcer of sacral region, stage 4 (2) Osteomyelitis of sacrum: CODE(S): M46.28 - Osteomyelitis of vertebra, sacral and sacrococcygeal region (3) Diabetes mellitus: CODE(S): E11.9 - Type 2 diabetes mellitus without complications QUALIFIERS: Diabetes mellitus type: type 2 Diabetes mellitus complication status: with skin complications (4) Tobacco use disorder: CODE(S): F17.200 - Nicotine dependence, unspecified, uncomplicated (5) Paraplegia: CODE(S): G82.20 - Paraplegia, unspecified (6) Smoker: CODE(S): F17.200 - Nicotine dependence, unspecified, uncomplicated PLAN: Plan Wound care -Silver cell top with gauze covered with ABD or Mepilex dressings daily. Wash ulcer and vivi wound with soap and water and wipe with Dakin's solution at the time of the dressing change. Surgery 01/01/24 - Excision sacral pressure sore, Stage IV, with partial ostectomy for osteomyelitis. Pathology of sacral bone consistent with chronic osteomyelitis. Soft tissue and skin of sacral region showed ulceration with associated acute and chronic inflammation and granulation. Operative bone culture from 01/01/24 positive for Staphylococcus haemolyticus. She was treated for 6 weeks for positive bone cultures. Operative tissue culture from 01/01/24 positive for Corynebacterium striatum, Strep anginosus, Prevotella disiens, and Anaerobic cocci. She will be treated with Doxycycline and Augmentin. CT Pelvis was done on 09/20/23. It showed evidence of tissue defect in the medial aspect of the right buttock abutting the distal sacrum. This most likely represents an ulcerated pressure ulcer. Normal urinary bladder. Normal visualized small intestine. Moderate amount of fecal material is seen in the colon. There is no pelvic fluid. There is no pelvic mass lesion or lymphadenopathy. There is diffuse atherosclerotic calcification of the pelvic arteries. Phleboliths are seen in the pelvis. Normal abdominal wall. Extensive metallic streak artifacts due to fusion with intrapedicular screw and aurelia fixation the lower lumbar spine. She has seen roaster operator for evaluation of her nutritional status. Follow up two weeks. Due to transportation issues she has difficult time coming weekly.
--- NOTE | 2024-07-29 10:13 | WC ---
PHOTO 07/22/24 SACRAL
== END 2024-07-23 23:59 | disposition home or self-care (01) ==
LOC: WC 13:00
PROVIDERS: PCP Internal Medicine; Referring Provider Nurse Practitioner Family; Visit Provider Nurse Practitioner Family
DX: L89.154 Pressure ulcer of sacral region, stage 4 (principal); G82.20 Paraplegia, unspecified; M46.28 Osteomyelitis of vertebra, sacral and sacrococcygeal region; E11.69 Type 2 diabetes mellitus with other specified complication; F17.200 Nicotine dependence, unspecified, uncomplicated
CPT/HCPCS: 11043

== ENCOUNTER 2024-08-07 13:01 | Outpatient (RCR) | payer MEDICARE, MEDICAID, SELFPAY ==
[2024-07-24 00:39] VITALS: BP 124/78; PULSE 78; RESP 14; TEMP 36.1
[2024-08-07 13:28] VITALS: BP 125/74; PULSE 80; RESP 16; TEMP 36.2
--- NOTE | 2024-08-07 14:37 | PCM.WC.PN ---
History of Present Illness Date of Service: 08/07/24 Chief Complaint: Sacral ulcer History of Wound: Patient is a 63 year old female who previously was a patient here and known to me, but had back surgery in early September 2022 at [facility] and then went to rehab at [place] after that. She had a aurelia replaced in her back. Before her surgery, she was not able to lie flat due to increased pain, so she spent most of her time in her wheelchair. Now since her surgery, she is in too much back pain to sit in her wheelchair. She presents today with an ulcer to her sacrum. She was in the ED on 12/10/22 for increased wound drainage and was treated with Keflex, which she has completed. She does have home health to assist with dressing changes. She has lost 100 lbs since last being here in early September. Wound culture 12/26/22 positive for Proteus mirabilis, Enterococcus faecalis, Streptococcus agalactiae, Anaerobic cocci and Bacteroides fragilis. She was treated with Augmentin. Wound culture from 01/23/23 was positive for MRSA and Morganella morganii. The MRSA was treated with Doxycycline. Wound culture 04/03/23 positive for Proteus mirabilis, Enterococcus faecalis, and Anaerobic cocci. She was treated with Augmentin. Wound culture from 07/03/23 positive for Proteus mirabilis and Enterococcus faecalis which was treated with Augmentin. Wound culture was done on 08/23/23. It was negative. She had CT Pelvis on 09/20/23. It showed evidence of tissue defect in the medial aspect of the right buttock abutting the distal sacrum. This most likely represents an ulcerated pressure ulcer. Normal urinary bladder. Normal visualized small intestine. Moderate amount of fecal material is seen in the colon. There is no pelvic fluid. There is no pelvic mass lesion or lymphadenopathy. There is diffuse atherosclerotic calcification of the pelvic arteries. Phleboliths are seen in the pelvis. Normal abdominal wall. Extensive metallic streak artifacts due to fusion with intrapedicular screw and aurelia fixation the lower lumbar spine. Surgery 01/01/24 - Excision sacral pressure sore, Stage IV, with partial ostectomy for osteomyelitis. Pathology of sacral bone consistent with chronic osteomyelitis. Soft tissue and skin of sacral region showed ulceration with associated acute and chronic inflammation and granulation. Operative bone culture from 01/01/24 positive for Staphylococcus haemolyticus. She will be treated for 6 weeks for positive bone cultures. Operative tissue culture from 01/01/24 positive for Corynebacterium striatum, Strep anginosus, Prevotella disiens, and Anaerobic cocci. She will be treated with Doxycycline and Augmentin. Today she denies fever. Her appetite is ok. Progress of Wound: The ulcer is pink color, it is slightly smaller. Vivi wound is clear. Objective Data Objective Data Vital Signs: Vital Signs Temp Pulse Resp BP O2 Del Method 97.1 F L 80 16 125/74 H Room Air 08/07/24 13:28 08/07/24 13:28 08/07/24 13:28 08/07/24 13:28 08/07/24 13:28 Oxygen Delivery Method Room Air Weight: 149 lb 14.629 oz Charges/Coding Procedures Integumentary 111xxx-113xx: [id number] Shila subq tissue 20 sq cm/< Debridement Note Debridement Note Wound debrided: #14 Sacral area. Laterality: Not Applicable Wound Grade/Stage: IV. Type of Debridement: Excisional debridement Anesthesia Used: 5% Lidocaine Gel Depth: Down to and including healthy tissue, in the subcutaneous layer and to bone Percentage of wound debrided: 100 Instrument Used: 5mm curette Tissue Removed: subcutaneous tissue, senescent cells, devitalized tissue Severity: Fat Layer Exposed (muscle is exposed. bone is palpable but not exposed.) Amount of bleeding with debridement: Mild Bleeding Controlled with: Pressure and Compression and gauze Patient tolerated procedure: Patient tolerated procedure well Post-Debridement Measurements and Additional Note: Post-Debridement Measurements/Treatment - Nurse 1 - General Ulcer Assessment Start: 08/07/24 13:27 Freq: Status: Active Protocol: TASIHA Activity Type Activity Date Activity User E-sign Co-sign Detail Recorded Client Recorded Date Recorded By Document 08/07/24 13:28 [facility] [id number] 08/07/24 13:34 [facility] 08/07/24 13:28 - Today's Visit Information Type of service Follow-up Visit (Physician/PACKAGE DYEING MACHINE OPERATOR ) Arrival Mode Wheelchair Transfer Assistance Other Transfer Assist (Other) 1 Patient Identification Verified (Name & Yes ) Patient Requires Transmission-Based No Precautions Vital Signs Temperature (97.8 F-99.1 F) 97.1 F L Temperature Source Temporal Pulse Rate (60-100) 80 Pulse Location Monitor Respiratory Rate (12-18) 16 Respiratory rate source Observation Oxygen Delivery Method Room Air Blood Pressure (90/60-120/80) 125/74 H Blood Pressure Mean (mm Hg) 91 Source Monitor Position Sitting Blood Pressure Location Left Arm History Since Last Visit- (Skip if this is Patient's initial visit) Have you changed medications since your No last visit? Any new allergies or adverse reactions No Had a fall/change in ADL's that may No increase risk of falls Signs or symptoms of abuse and/or No neglect since last visit Have you been in the hospital since your No last visit? Has dressing in place as prescribed Yes Has compression in place as prescribed N/A Has offloadiing in place as prescribed N/A Experienced any changes in pain level or No management Left Footwear Slipper Right Footwear Slipper Pain Scale: 0-10 Numeric Is Patient Pain Free? Yes - Nurse 1 - General Ulcer Measurement Start: 08/07/24 13:27 Freq: Status: Active Protocol: Activity Type Activity Date Activity User E-sign Co-sign Detail Recorded Client Recorded Date Recorded By Document 08/07/24 13:28 [facility] [id number] 08/07/24 13:34 [facility] 08/07/24 13:28 Wound Center Nurse 1 #14- L SACRAL POST OP -Combined with other wound No -Current Size (cm) - Length 3.3 -Current Size (cm) - Width 1.8 -Current Size (cm) - Depth 0.1 -Total Square Cm 5.94 -Date of Last Picture (Recall this 08/07/24 field) -Photo Taken Yes -Epithelialization None Present -Tunneling No -Undermining/Tunneling No -Exudate Amt Medium -Exudate Type Serosanguineous -Wound Margin Thickened & Rolled Under -Granulation Amt Large (67-100%) -Granulation Quality Red -Slough/Fibrin Yes -Necrosis Amt Small (1-33%) -Necrotic Tissue Type Adherent Slough -Texture (Vivi-wound Skin Appearance) Assessed -Moisture (Vivi-wound Skin Appearance) Assessed -Color (Vivi-wound Skin Appearance) Assessed -Temperature (Vivi-wound Skin No Abnormality Appearance) (Pt Warm) -Tenderness on Palpation (Vivi-wound No Skin Appearance) -Ulcer Cleansing Soap and Water -Foul Odor after Cleansing No -Anesthetic Used 5% Lidocaine Gel WC - Nurse 2 - General Ulcer CM Notes Start: 08/07/24 13:27 Freq: Status: Active Protocol: Activity Type Activity Date Activity User E-sign Co-sign Detail Recorded Client Recorded Date Recorded By Document 08/07/24 14:04 [id number] 08/07/24 14:06 08/07/24 14:04 Wound Center Nurse 2 -Time 14:04 -Correct Patient Yes -Correct Side, Site, Position Yes -Correct Procedure Yes -Procedure Performed Yes -Type of Procedure Debridement -Clinical Debridement Subcutaneous -Tissue Removed Subcutaneous -Post Debridement (cm) - Length 4.2 -Post Debridement (cm) - Width 2.0 -Post Debridement (cm) - Depth 0.1 -Total Square (Post) (cm) 8.40 -Area of Debridement (cm) - Length 4.2 -Area of Debridement (cm) - Width 2.0 -Total Square (Area) (cm) 8.40 -Tunneling No -Undermining/Tunneling No -Circular Undermining No -Wound/Ulcer Outcome Not Healed -Ulcer Cleansing Rinsed/ Irrigated with Saline -Foul Odor after Cleansing No -Bioengineered Tissue No -Bleeding Controlled with Pressure -Treatment Response Procedure Tolerated Well -Debridement - Subq, 1st 20sq cm Yes Pain Scale: 0-10 Numeric Is Patient Pain Free? Yes - Nurse 3 - General Ulcer D/C NN Start: 08/07/24 13:27 Freq: Status: Active Protocol: Activity Type Activity Date Activity User E-sign Co-sign Detail Recorded Client Recorded Date Recorded By Document 08/07/24 14:22 [facility] [id number] 08/07/24 14:23 [facility] 08/07/24 14:22 Wound Care Center Nurse 3 #14- L SACRAL POST OP -Ulcer Cleansing Rinsed/ Irrigated with Saline -Foul Odor after Cleansing No -Primary Dressing Applied Silicone Border Foam 6x6, Silvercel -Silicone Border Foam 6x6 1 -Silvercel 1 Treatment Response Procedure Tolerated Well Pain Scale: 0-10 Numeric Is Patient Pain Free? Yes WC - Visit Discharge Discharge Condition Stable Ambulatory Status Wheelchair Transportation Private Auto Accompanied by spike amato in lob Facility Type Home Health Assessment/Plan Assessment/Plan (1) Pressure injury of sacral region, stage 4: CODE(S): L89.154 - Pressure ulcer of sacral region, stage 4 (2) Osteomyelitis of sacrum: CODE(S): M46.28 - Osteomyelitis of vertebra, sacral and sacrococcygeal region (3) Diabetes mellitus: CODE(S): E11.9 - Type 2 diabetes mellitus without complications QUALIFIERS: Diabetes mellitus type: type 2 Diabetes mellitus complication status: with skin complications (4) Tobacco use disorder: CODE(S): F17.200 - Nicotine dependence, unspecified, uncomplicated (5) Paraplegia: CODE(S): G82.20 - Paraplegia, unspecified (6) Smoker: CODE(S): F17.200 - Nicotine dependence, unspecified, uncomplicated PLAN: Plan Wound care -Silver cell top with gauze covered with ABD or Mepilex dressings daily. Wash ulcer and vivi wound with soap and water and wipe with Dakin's solution at the time of the dressing change. Surgery 01/01/24 - Excision sacral pressure sore, Stage IV, with partial ostectomy for osteomyelitis. Pathology of sacral bone consistent with chronic osteomyelitis. Soft tissue and skin of sacral region showed ulceration with associated acute and chronic inflammation and granulation. Operative bone culture from 01/01/24 positive for Staphylococcus haemolyticus. She was treated for 6 weeks for positive bone cultures. Operative tissue culture from 01/01/24 positive for Corynebacterium striatum, Strep anginosus, Prevotella disiens, and Anaerobic cocci. She will be treated with Doxycycline and Augmentin. CT Pelvis was done on 09/20/23. It showed evidence of tissue defect in the medial aspect of the right buttock abutting the distal sacrum. This most likely represents an ulcerated pressure ulcer. Normal urinary bladder. Normal visualized small intestine. Moderate amount of fecal material is seen in the colon. There is no pelvic fluid. There is no pelvic mass lesion or lymphadenopathy. There is diffuse atherosclerotic calcification of the pelvic arteries. Phleboliths are seen in the pelvis. Normal abdominal wall. Extensive metallic streak artifacts due to fusion with intrapedicular screw and aurelia fixation the lower lumbar spine. She has seen marketing communications manager for evaluation of her nutritional status. Follow up two weeks. Due to transportation issues she has difficult time coming weekly.
--- NOTE | 2024-08-08 08:53 | WC ---
PHOTO 08/07/24 LEFT SACRAL
== END 2024-08-23 23:59 | disposition home or self-care (01) ==
LOC: WC 13:01
PROVIDERS: PCP Internal Medicine; Referring Provider Nurse Practitioner Family; Visit Provider Nurse Practitioner Family
DX: L89.154 Pressure ulcer of sacral region, stage 4 (principal); G82.20 Paraplegia, unspecified; M46.28 Osteomyelitis of vertebra, sacral and sacrococcygeal region; E11.69 Type 2 diabetes mellitus with other specified complication; Z99.3 Dependence on wheelchair; F17.200 Nicotine dependence, unspecified, uncomplicated
CPT/HCPCS: 11042; 97803

== ENCOUNTER 2024-08-28 14:01 | Emergency (ER) | payer MEDICARE, MEDICAID, SELFPAY ==
[2024-08-28 14:03] VITALS: BP 105/75; PULSE 81; RESP 18; TEMP 36.6; O2SAT 98
[2024-08-28 17:08] VITALS: BMI 24.7
[2024-08-28 17:09] VITALS: BP 143/84; PULSE 74; RESP 15; TEMP 37.1; O2SAT 99
--- NOTE | 2024-08-28 17:28 | CT_ITS ---
PROCEDURE: SOFT TISSUE NECK WITH CONTRAST REASON FOR EXAM: Right neck swelling. TECHNIQUE: CT of the soft tissues of the neck from the orbits to the upper mediastinum with intravenous contrast. COMPARISON: None. FINDINGS: Airway: Midline and patent. Glands: Hyperenhancing right parotid gland relative to the left. No significant surrounding inflammatory changes. Lymph nodes: No cervical lymphadenopathy. Thyroid: Unremarkable. Vasculature: Mild atherosclerosis of the internal iliac arteries without significant stenosis Orbits: Unremarkable at visualized levels. Paranasal sinuses and mastoids: Grossly clear at visualized levels. Lung apices: Clear. Upper mediastinum: Visualized mediastinum is unremarkable. Bones: Unremarkable. CT/Soft Tissue Neck WITH Contrast IMPRESSION: Hyperenhancing right parotid relative to the left. No significant surrounding inflammatory changes. Equivocal for right parotiditis. One or more dose reduction techniques were used (e.g., Automated exposure contr ol, adjustment of the mA and/or kV according to patient size, use of iterative reconstruction technique). Reading Location: [id number]
--- NOTE | 2024-08-28 17:38 | EX.ED.DYSGE1 ---
HPI History of Present Illness Chief Complaint: Edema Narrative Narrative: 64-year-old female past medical history of paraplegia, decubitus ulcers, presents with pain and swelling of her right jaw and neck that she has had for the last 2 days. She states her symptoms began on Monday. She took a picture of herself and noted swelling on the right side of her neck and of her right lower jaw. She denies any fevers or chills, no erythema noted to the area. No difficulty swallowing. She does complain of of dry mouth. She states it improved yesterday, but today when she was at the wound care center, Dr. Reddy sent her in for evaluation of the swelling of the right side of her neck. She denies any difficulty breathing or other symptoms. [facility] Medical History Wears glasses Post-menopausal Depression Marijuana use Neuropathy Thyroid disease Arthritis Back pain Gastric reflux Smoker Paraplegia History of stress test Personal history of Methicillin resistant Staphylococcus aureus infection Diabetes mellitus Pressure injury of sacral region, stage 4 Weight loss Positive colorectal cancer screening using Cologuard test Witnessed seizure-like activity Ulcer of left lower leg Ulcer of right lower extremity with fat layer exposed Ulcer of left lower extremity with fat layer exposed Toxic encephalopathy Wound, open, abdominal wall, anterior Current tobacco use Chest pain, unspecified Bone lesion Intractable low back pain Major depressive disorder GERD without esophagitis Chronic cluster headache, not intractable Age-related osteoporosis without current pathological fracture Primary generalized (osteo)arthritis Other intervertebral disc degeneration, lumbar region Hypothyroidism Anemia COPD (chronic obstructive pulmonary disease) Muscle weakness Spinal stenosis, lumbar region without neurogenic claudication Neuromuscular scoliosis Chronic low back pain Paraplegia Morbid obesity HTN (hypertension) HLD (hyperlipidemia) Home Medications ?Medication ?Instructions ?Recorded ?Last Taken ?Type ucouzmuashot-fmvhvbbt-[id number] 1 tab PO DAILY supplement 02/26/18 12/31/23 History tablet (Cerovite Senior) pantoprazole 40 mg tablet,delayed 40 mg PO BID PRN stomach 09/17/20 12/31/23 History release acetaminophen 500 mg tablet 500 mg PO Q6H PRN Pain 1-10 Or 10/08/20 12/31/23 History Fever albuterol sulfate 90 mcg/actuation 2 puff inhalation Q4H PRN PRN Sob 10/08/20 Unknown History aerosol inhaler &/Or Wheezing betamethasone valerate 0.1 % 1 applic topical BID PRN skin 01/15/21 12/31/23 Rx topical cream irritation #15 grams cetirizine 10 mg tablet 10 mg PO DAILY #30 tabs 01/15/21 12/31/23 Rx hydrocolloid dressing 4 X 4 #5 ea 09/07/21 Unknown Rx (DuoDERM CGF Adhesive Border Dressing) biotin 1 mg tablet 1 mg PO DAILY SUPPLEMENT 05/17/22 12/31/23 History calcium citrate 250 mg PO DAILY SUPPLEMENT 05/17/22 12/31/23 History cholecalciferol (vitamin D3) 25 25 mcg PO DAILY SUPPLEMENT 05/17/22 12/31/23 History mcg (1,000 unit) capsule cyanocobalamin (vitamin B-12) 1,000 mcg PO DAILY SUPPLEMENT 05/17/22 12/31/23 History 1,000 mcg tablet ferrous sulfate 325 mg (65 mg 325 mg PO DAILY SUPPLEMENT 05/17/22 12/31/23 History iron) tablet mupirocin 2 % topical ointment 1 applic topical DAILY PRN Wound 05/17/22 12/31/23 History Care gabapentin 300 mg capsule 300 mg PO BID 30 days #60 caps 05/19/22 01/01/24 Rx dextran 70-hypromellose 0.1 %-0.3 1 drp ophthalmic (eye) TID PRN dry 05/25/22 12/31/23 History % eye drops (Artificial Tears eye(s) (dextran 70-hypromellose)) ipratropium 20 mcg-albuterol 100 1 puff inhalation Q6H PRN copd 05/25/22 01/01/24 History mcg/actuation mist for inhalation (Combivent Respimat) nystatin 100,000 unit/gram topical 1 applic topical BID 10 days #30 07/08/22 12/31/23 Rx powder grams sennosides 8.6 mg tablet (Senna 8.6 mg PO .QOD STOOL 08/25/22 12/31/23 History Lax) lorazepam 0.5 mg tablet 0.5 mg PO BID PRN Anxiety 12/01/22 01/01/24 History methadone 5 mg tablet 10 mg PO BID 12/01/22 12/31/23 History naloxone 4 mg/actuation nasal 1 spray intranasal Q2M PRN opioid 12/01/22 Unknown History spray (Narcan) overdose oxycodone-acetaminophen 10 mg-325 1 tab PO Q3H PRN Pain 12/01/22 01/01/24 History mg tablet (Percocet) scopolamine base 1 mg over 3 days 1 patch transdermal Q3D PRN nausea 05/16/23 Unknown Rx transdermal patch and vomiting #10 ea lidocaine 5 % topical ointment 1 applic topical TID PRN pain #30 07/12/23 12/31/23 Rx grams levothyroxine 175 mcg tablet 175 mcg PO DAILY disorder of 12/26/23 12/31/23 History thyroid gland magnesium glycinate 100 mg (as 200 mg PO BID 12/26/23 12/31/23 History glycinate) tablet doxycycline hyclate 100 mg tablet 100 mg PO BID 14 days #28 tabs 01/02/24 Unknown Rx amoxicillin 875 mg-potassium 1 tab PO Q12H 14 days #28 tabs 01/24/24 Unknown Rx clavulanate 125 mg tablet valacyclovir 500 mg tablet 500 mg PO DAILY Check with primary 02/06/24 Unknown Rx (Valtrex) doctor #30 tabs amoxicillin 875 mg-potassium 1 tab PO BID 7 days #14 tabs 08/28/24 Unknown Rx clavulanate 125 mg tablet Allergy/AdvReac Type Severity Reaction Status Date / Time NSAIDS (Non-Steroidal Allergy GASTRIC Verified 08/28/24 14:03 Anti-Inflamma BYPASS ondansetron (From Zofran) AdvReac Other Verified 08/28/24 14:03 trazodone AdvReac Other Verified 08/28/24 14:03 Family History Father Diabetes Hypertension Myocardial infarction Alcoholism Brother Myocardial infarction Alcoholism Mother CVA (cerebral vascular accident) Surgical History S/P laminectomy with spinal fusion H/O dilation and curettage History of bilateral salpingo-oophorectomy S/P arthroscopic knee surgery s/p nerve spine surgery S/P lumbar spine operation s/p upper back surgery skin graft Hydradenitis History of cholecystectomy H/O gastric bypass Social History Smoking Status: Current every day smoker tobacco type: cigarettes alcohol intake: never substance use type: does not use caffeine: Yes what type of physical activity do you participate in: none seatbelt use: always do you feel safe at home: Yes additional social history: ROS ROS ED ROS Narrative Constitutional: No fever, no chills. HEENT: No sore throat. Positive right lower jaw and neck pain with swelling. Positive dry mouth. Cardiovascular: No chest pain. No palpitations. No pedal edema. Respiratory: No cough, no shortness of breath. Abdominal: No abdominal pain. No nausea. No vomiting. EXAM Physical Exam Narrative Exam Narrative: Afebrile. Vital signs noted. Nontoxic-appearing. HEENT examination shows PERRL, EOMI. No drooling or trismus. Airway patent. Partially edentulous and right lower jaw, mild swelling noted in the parotid/submandibular gland area. No erythema noted to skin. No stridor. No meningismus. Cardiovascular examination reveals a regular rate and rhythm. Lungs clear to auscultation bilaterally. Abdomen soft and nontender. Const Vital Signs: 08/28/24 14:03 08/28/24 17:05 08/28/24 17:09 Temperature 97.8 F 98.7 F Temperature Source Temporal Oral Pulse Rate 81 74 Respiratory Rate 18 15 Respiratory Effort Normal Non-Labored Respiratory Pattern Normal Blood Pressure 105/75 143/84 H Blood Pressure Mean 85 103 Pulse Ox 98 99 Oxygen Delivery Method Room Air Room Air 08/28/24 19:32 08/28/24 19:41 Temperature Temperature Source Pulse Rate 63 75 Respiratory Rate 17 15 Respiratory Effort Respiratory Pattern Blood Pressure 144/94 H 144/86 H Blood Pressure Mean 110 105 Pulse Ox 98 96 Oxygen Delivery Method Room Air Room Air MDM MDM MDM Narrative Medical decision making narrative: Differential diagnosis includes but not limited to parotitis versus submandibular gland swelling versus mass versus salivary gland stone with obstruction. Patient states that she has chronic pain and was given her oxycodone 10 mg orally that she takes every [address] will be obtained of the soft tissue of the neck because of the reported swelling to help rule out any obstruction as well. Basic laboratories were drawn including CBC and BMP. I reviewed her laboratory work and she has normal white count of 6.6 with hemoglobin 12.4, hematocrit 37.1, platelet count normal at 184. BMP remarkable for chloride elevated at 111 which I think is nonspecific with a BUN of 24 and creatinine 0.99, glucose appropriately elevated at 106. I reviewed the radiology report of the CT of the soft tissue neck and she has hyperenhancing right parotid gland when compared to the left, no inflammatory changes but is equivocal for parotitis. Although it may be a viral infection, she was started on Augmentin as she has a history of multiple comorbidities. She was given her first dose here. Prescription written for the next week. I feel she can be discharged to follow-up. Patient agreeable to the plan. Disposition is discharged home in stable condition. History & Record Review Discussion w/independent historian: Patient Lab Data Attestation: I reviewed the patient's lab results. Labs: Laboratory Results - last 24 hr 08/28/24 17:36 WBC 6.6 RBC 3.93 L Hgb 12.4 Hct 37.1 MCV 94.4 MCH 31.6 MCHC 33.4 RDW Std Deviation 47.5 H RDW Coeff of Jarrod 13.6 Plt Count 184 MPV 10.0 Immature Gran % (Auto) 0.500 Neut % (Auto) 60.9 Lymph % (Auto) 29.3 [place] % (Auto) 7.4 Eos % (Auto) 1.4 Baso % (Auto) 0.5 Absolute Neuts (auto) 4.0 Absolute Lymphs (auto) 1.93 Nucleated RBC % 0 Sodium 140 Potassium 4.4 Chloride 111 H Carbon Dioxide 24.0 Anion Gap 5 BUN 24 H Creatinine 0.99 Estim Creat Clear Calc 54.45 Est GFR (MDRD) Af Amer 72 Est GFR (MDRD) Non-Af 60 BUN/Creatinine Ratio 24.1 H Glucose 106 Calcium 9.6 Radiography Diagnostic Testing: Clinical Impression(s) from Imaging Studies Soft Tissue Neck CT 08/28/24 17:28 IMPRESSION: Hyperenhancing right parotid relative to the left. No significant surrounding inflammatory changes. Equivocal for right parotiditis. One or more dose reduction techniques were used (e.g., Automated exposure control, adjustment of the mA and/or kV according to patient size, use of iterative reconstruction technique). Reading Location: [facility] Discharge Plan Triage Chief Complaint: Edema ED Provider: Bruno Hernandez Dx/Rx/DC Orders Clinical Impression: Parotiditis, Swelling, mass, or lump in head and neck Instructions: ED Salivary Gland Infection Prescriptions: New amoxicillin-pot clavulanate 875-125 mg tablet 1 tab PO BID 7 Days Qty: 14 0RF No Action [id number] [Cerovite Senior] tablet 1 tab PO DAILY betamethasone valerate 0.1 % cream 1 applic topical BID PRN (Reason: skin irritation) Qty: 15 0RF cetirizine 10 mg tablet 10 mg PO DAILY Qty: 30 0RF Artificial Tears([id number]) 0.1-0.3 % drops 1 drp ophthalmic (eye) TID PRN (Reason: dry eye(s)) Combivent Respimat 20-100 mcg/actuation mist 1 puff inhalation Q6H PRN (Reason: copd) methadone 5 mg tablet 10 mg PO BID oxycodone-acetaminophen [Percocet] 10-325 mg tablet 1 tab PO Q3H PRN (Reason: Pain) naloxone [Narcan] 4 mg/actuation spray,non-aerosol 1 spray intranasal Q2M PRN (Reason: opioid overdose) Rx Instructions: spray 1 dose into ONE nostril; alternate nostrils w each dose until help arrives lorazepam 0.5 mg tablet 0.5 mg PO BID PRN (Reason: Anxiety) pantoprazole 40 MG tablet 40 mg PO BID PRN (Reason: stomach) acetaminophen 500 MG tablet 500 mg PO Q6H PRN (Reason: Pain 1-10 Or Fever) albuterol sulfate 1 INHALER inhaler 2 puff INHALATION Q4H PRN PRN (Reason: Sob &/Or Wheezing) ferrous sulfate 325 mg (65 mg iron) Tablet 325 mg PO DAILY mupirocin 2 % ointment 1 applic TOPICAL DAILY PRN (Reason: Wound Care) Patient Comments: apply to LEG WOUNDS -- DIRECTED -- FOR 10 DAYS cholecalciferol (vitamin D3) 25 mcg (1,000 unit) Capsule 25 mcg PO DAILY biotin 1 mg Tablet 1 mg PO DAILY calcium citrate 250 mg calcium Tablet 250 mg PO DAILY cyanocobalamin (vitamin B-12) 1,000 mcg Tablet 1,000 mcg PO DAILY gabapentin 300 mg capsule 300 mg PO BID 30 Days Qty: 60 0RF sennosides [Senna Lax] 8.6 mg tablet 8.6 mg PO .QOD Patient Comments: take 1 tablet by mouth once daily nystatin 100,000 unit/gram powder 1 applic topical BID 10 Days Qty: 30 1RF Rx Instructions: to effected area levothyroxine 175 mcg tablet 175 mcg PO DAILY magnesium glycinate 100 mg tablet 200 mg PO BID doxycycline hyclate 100 mg tablet 100 mg PO BID 14 Days Qty: 28 0RF (DME) hydrocolloid dressing [DuoDERM CGF Border Dressing] 4 X 4 bandage See Rx Instructions .ROUTE .MEDSUPPLY Qty: 5 6RF Rx Instructions: As directed scopolamine base 1 mg over 3 days patch 3 day 1 patch transdermal Q3D PRN (Reason: nausea and vomiting) Qty: 10 2RF lidocaine 5 % ointment 1 applic topical TID PRN (Reason: pain) Qty: 30 3RF amoxicillin-pot clavulanate 875-125 mg tablet 1 tab PO Q12H 14 Days Qty: 28 0RF valacyclovir [Valtrex] 500 mg tablet 500 mg PO DAILY Qty: 30 3RF Rx Instructions: Script transferred from [facility] per Pt request. Primary Care Provider: Kevin Bah Referrals: Kevin Bah MD [Primary Care Provider] - 1 Week if not improving Activity Restrictions/Additional Instructions: Return with sustained high fever, difficulty swallowing, increased swelling, new or worsening symptoms. Print Language: Belarusian Disposition Disposition: Home, Self Care
[2024-08-28] MEDS: oxyCODONE 5 MG Tablet 10 MG PO (17:42)
[2024-08-28 17:43] LABS: Absolute Lymphocyte Count 1.93 X10^3/uL (0.83-4.51); Basophil# 0.03 X10^3/uL; Basophil% 0.5 % (0-1); Eosinophil# 0.09 X10^3/uL; Eosinophils% 1.4 % (0-5); Hematocrit 37.1 % (37-47); Hemoglobin 12.4 g/dL (12.0-15.0); Lymphocyte # 1.93 X10^3/ul (0.83-4.51); Lymphocyte % 29.3 % (19-41); Mean Corp Hgb Conc 33.4 g/dL (32-36); Mean Corpuscular Hgb 31.6 pg (27.0-32.0); Mean Corpuscular Volume 94.4 fL (81-99); Monocyte# 0.49 X10^3/uL; Monocyte% 7.4 % (0-10); NRBC Flagged by Analyzer 0 % (0-5); Neutrophil # 4.02 X10^3/uL (2.7-7.7); Neutrophil % 60.9 % (47-70); Platelet Count 184 K/mm3 (150-450); RBC Distribution Width CV 13.6 % (11.6-14.6); RBC Distribution Width SD 47.5 fl (35.1-43.9); Red Blood Count 3.93 M/mm3 (4.2-5.4); White Blood Count 6.6 K/mm3 (4.4-11.0)
[2024-08-28 18:04] LABS: Anion Gap 5 (5-15); BUN 24 mg/dL (7-18); BUN/Creat Ratio 24.1 RATIO (10-20); Calcium,Total 9.6 mg/dL (8.5-10.1); Chloride 111 mmol/L (98-107); Creatinine, Serum 0.99 mg/dL (0.55-1.02); EST Glomerular Filtration Rate 60 mL/min (>60); Est Glom Filt Rate - Afr Amer 72 mL/min (>60); Estimated Creatinine Clearance 54.45 ml/min; Glucose 106 mg/dL (74-106); Potassium 4.4 mmol/L (3.5-5.1); Sodium Level 140 mmol/L (136-145)
[2024-08-28 19:32] VITALS: BP 144/94; PULSE 63; RESP 17; O2SAT 98
[2024-08-28 19:41] VITALS: BP 144/86; PULSE 75; RESP 15; O2SAT 96
[2024-08-28 21:38] VITALS: PULSE 68; RESP 19; TEMP 36.9; O2SAT 97
[2024-08-28] MEDS: Amox/Clavulanate 875 MG Tablet PO (21:53)
== END 2024-08-28 22:48 | disposition home or self-care (01) ==
PROVIDERS: Emergency Provider Emergency Medicine; PCP Internal Medicine; Visit Provider Emergency Medicine
DX: K11.20 Sialoadenitis, unspecified (principal); L89.154 Pressure ulcer of sacral region, stage 4; G82.20 Paraplegia, unspecified; J44.9 Chronic obstructive pulmonary disease, unspecified; E11.40 Type 2 diabetes mellitus with diabetic neuropathy, unspecified; E11.628 Type 2 diabetes mellitus with other skin complications; F32.A Depression, unspecified; K21.9 Gastro-esophageal reflux disease without esophagitis; F32.9 Major depressive disorder, single episode, unspecified; D64.9 Anemia, unspecified; I10 Essential (primary) hypertension; E03.9 Hypothyroidism, unspecified; F17.210 Nicotine dependence, cigarettes, uncomplicated; M81.0 Age-related osteoporosis without current pathological fracture; M41.40 Neuromuscular scoliosis, site unspecified; M48.061 Spinal stenosis, lumbar region without neurogenic claudication; G89.29 Other chronic pain; Z86.14 Personal history of Methicillin resistant Staphylococcus aureus infection; Z98.1 Arthrodesis status; Z79.899 Other long term (current) drug therapy; Z79.890 Hormone replacement therapy; Z90.49 Acquired absence of other specified parts of digestive tract
CPT/HCPCS: 70491; 80048; 85025; 99283; Q9967; A4216

== ENCOUNTER 2024-09-11 13:15 | Outpatient (RCR) | payer MEDICARE, MEDICAID, SELFPAY ==
[2024-08-24 01:00] VITALS: BP 125/74; PULSE 80; RESP 16; TEMP 36.2
[2024-08-28 13:17] VITALS: BP 132/75; PULSE 77; RESP 16; TEMP 35.3
--- NOTE | 2024-08-28 13:50 | WC ---
PT ADVISED DURING VISIT TO GO TO ED FOR EVAL OF SWOLLEN/PAINFUL AREA L NECK, PER [facility] LIVESTOCK BRANDS INSPECTOR. PT CALLED TRANSPORT AND THEY ARE NOT ALLOWED TO TAKE HER TO ED FOR INSURANCE REASONS. ADVISED PT TO RIDE HOME W/ TRANSPORT, THEN CALL [facility] SO HER ELECTRIC W/C WILL BE AT HOME. PT STATES SHE'S JUST GOING TO RIDE OVER TO HOSPITAL IN HER CHAIR. ADVISED HER NOT TO. COUNSELED. WILL UPDATE RAMAKRISHNA MELO.
--- NOTE | 2024-08-28 16:09 | PCM.WC.PN ---
History of Present Illness Date of Service: 08/28/24 Chief Complaint: Sacral ulcer History of Wound: Patient is a 63 year old female who previously was a patient here and known to me, but had back surgery in early September 2022 at [facility] and then went to rehab at [facility] after that. She had a aurelia replaced in her back. Before her surgery, she was not able to lie flat due to increased pain, so she spent most of her time in her wheelchair. Now since her surgery, she is in too much back pain to sit in her wheelchair. She presents today with an ulcer to her sacrum. She was in the ED on 12/10/22 for increased wound drainage and was treated with Keflex, which she has completed. She does have home health to assist with dressing changes. She has lost 100 lbs since last being here in early September. Wound culture 12/26/22 positive for Proteus mirabilis, Enterococcus faecalis, Streptococcus agalactiae, Anaerobic cocci and Bacteroides fragilis. She was treated with Augmentin. Wound culture from 01/23/23 was positive for MRSA and Morganella morganii. The MRSA was treated with Doxycycline. Wound culture 04/03/23 positive for Proteus mirabilis, Enterococcus faecalis, and Anaerobic cocci. She was treated with Augmentin. Wound culture from 07/03/23 positive for Proteus mirabilis and Enterococcus faecalis which was treated with Augmentin. Wound culture was done on 08/23/23. It was negative. She had CT Pelvis on 09/20/23. It showed evidence of tissue defect in the medial aspect of the right buttock abutting the distal sacrum. This most likely represents an ulcerated pressure ulcer. Normal urinary bladder. Normal visualized small intestine. Moderate amount of fecal material is seen in the colon. There is no pelvic fluid. There is no pelvic mass lesion or lymphadenopathy. There is diffuse atherosclerotic calcification of the pelvic arteries. Phleboliths are seen in the pelvis. Normal abdominal wall. Extensive metallic streak artifacts due to fusion with intrapedicular screw and aurelia fixation the lower lumbar spine. Surgery 01/01/24 - Excision sacral pressure sore, Stage IV, with partial ostectomy for osteomyelitis. Pathology of sacral bone consistent with chronic osteomyelitis. Soft tissue and skin of sacral region showed ulceration with associated acute and chronic inflammation and granulation. Operative bone culture from 01/01/24 positive for Staphylococcus haemolyticus. She will be treated for 6 weeks for positive bone cultures. Operative tissue culture from 01/01/24 positive for Corynebacterium striatum, Strep anginosus, Prevotella disiens, and Anaerobic cocci. She will be treated with Doxycycline and Augmentin. Today she denies fever. Her appetite is ok. Progress of Wound: The ulcer is pink color, it is slightly smaller. Vivi wound is clear. The concern today is she has swelling of her right lower jaw that is extending into her right neck. She states that she is having right sided jaw pain. Denies dental pain (and she states that she doesn't have teeth in that area). She noticed the discomfort 2 days ago. She did not realize it was swelling into her neck. She denies fever, chills, nausea, vomiting, diarrhea. Objective Data Objective Data Vital Signs: Vital Signs Temp Pulse Resp BP O2 Del Method 95.6 F L 77 16 132/75 H Room Air 08/28/24 13:17 08/28/24 13:17 08/28/24 13:17 08/28/24 13:17 08/28/24 13:17 Oxygen Delivery Method Room Air Weight: 149 lb 14.629 oz Charges/Coding Procedures Integumentary [id number]: [id number] Shila subq tissue 20 sq cm/< Debridement Note Debridement Note Wound debrided: #14 Sacral area. Laterality: Not Applicable Wound Grade/Stage: IV. Type of Debridement: Excisional debridement Anesthesia Used: 5% Lidocaine Gel Depth: Down to and including healthy tissue, in the subcutaneous layer and to bone Percentage of wound debrided: 100 Instrument Used: 5mm curette Tissue Removed: subcutaneous tissue, senescent cells, devitalized tissue Severity: Fat Layer Exposed (muscle is exposed. bone is palpable but not exposed.) Amount of bleeding with debridement: Mild Bleeding Controlled with: Pressure and Compression and gauze Patient tolerated procedure: Patient tolerated procedure well Post-Debridement Measurements and Additional Note: Post-Debridement Measurements/Treatment - Nurse 1 - General Ulcer Assessment Start: 08/28/24 13:16 Freq: Status: Active Protocol: TAISHA Activity Type Activity Date Activity User E-sign Co-sign Detail Recorded Client Recorded Date Recorded By Document 08/28/24 13:17 [facility] [id number] 08/28/24 13:21 [facility] 08/28/24 13:17 - Today's Visit Information Type of service Follow-up Visit (Physician/MMI TEACHER ) Arrival Mode Wheelchair Transfer Assistance Other Transfer Assist (Other) 1 Patient Identification Verified (Name & Yes ) Patient Requires Transmission-Based No Precautions Vital Signs Temperature (97.8 F-99.1 F) 95.6 F L Temperature Source Temporal Pulse Rate (60-100) 77 Pulse Location Monitor Respiratory Rate (12-18) 16 Respiratory rate source Observation Oxygen Delivery Method Room Air Blood Pressure (90/60-120/80) 132/75 H Blood Pressure Mean (mm Hg) 94 Source Monitor Position Supine Blood Pressure Location Left Arm History Since Last Visit- (Skip if this is Patient's initial visit) Have you changed medications since your No last visit? Any new allergies or adverse reactions No Had a fall/change in ADL's that may No increase risk of falls Signs or symptoms of abuse and/or No neglect since last visit Have you been in the hospital since your No last visit? Has dressing in place as prescribed Yes Has compression in place as prescribed N/A Has offloadiing in place as prescribed N/A Experienced any changes in pain level or No management Left Footwear Slipper Right Footwear Slipper Pain Scale: 0-10 Numeric Is Patient Pain Free? Yes - Nurse 1 - General Ulcer Measurement Start: 08/28/24 13:16 Freq: Status: Active Protocol: Activity Type Activity Date Activity User E-sign Co-sign Detail Recorded Client Recorded Date Recorded By Document 08/28/24 13:17 [facility] [id number] 08/28/24 13:21 [facility] 08/28/24 13:17 Wound Center Nurse 1 #14- L SACRAL POST OP -Combined with other wound No -Current Size (cm) - Length 4 -Current Size (cm) - Width 2 -Current Size (cm) - Depth 0.1 -Total Square Cm 8 -Epithelialization None Present -Tunneling No -Undermining/Tunneling No -Circular Undermining No -Exudate Amt Medium -Exudate Type Serosanguineous -Wound Margin Thickened & Rolled Under -Granulation Amt Large (67-100%) -Granulation Quality Hyper- granulation, Pale,Red -Slough/Fibrin Yes -Necrosis Amt Small (1-33%) -Necrotic Tissue Type Adherent Slough -Texture (Vivi-wound Skin Appearance) Assessed, Scarring -Moisture (Vivi-wound Skin Appearance) Assessed -Color (Vivi-wound Skin Appearance) Assessed -Temperature (Vivi-wound Skin No Abnormality Appearance) (Pt Warm) -Tenderness on Palpation (Vivi-wound No Skin Appearance) -Ulcer Cleansing Rinsed/ Irrigated with Saline -Foul Odor after Cleansing No -Anesthetic Used 5% Lidocaine Gel - Nurse 2 - General Ulcer CM Notes Start: 08/28/24 13:16 Freq: Status: Active Protocol: Activity Type Activity Date Activity User E-sign Co-sign Detail Recorded Client Recorded Date Recorded By Document 08/28/24 13:24 [facility] [id number] 08/28/24 13:33 [facility] 08/28/24 13:24 Wound Center Nurse 2 -Time 13:25 -Correct Patient Yes -Correct Side, Site, Position Yes -Correct Procedure Yes -Procedure Performed Yes -Type of Procedure Debridement -Clinical Debridement Subcutaneous -Tissue Removed Subcutaneous -Post Debridement (cm) - Length 4.5 -Post Debridement (cm) - Width 2 -Post Debridement (cm) - Depth 0.1 -Total Square (Post) (cm) 9.0 -Area of Debridement (cm) - Length 4.5 -Area of Debridement (cm) - Width 2 -Total Square (Area) (cm) 9.0 -Tunneling No -Undermining/Tunneling No -Circular Undermining No -Wound/Ulcer Outcome Not Healed -Ulcer Cleansing Rinsed/ Irrigated with Saline -Foul Odor after Cleansing No -Bioengineered Tissue No -Bleeding Controlled with Pressure -Treatment Response Procedure Tolerated Well -Debridement - Subq, 1st 20sq cm Yes Pain Scale: 0-10 Numeric Is Patient Pain Free? Yes - Nurse 3 - General Ulcer D/C NN Start: 08/28/24 13:16 Freq: Status: Active Protocol: Activity Type Activity Date Activity User E-sign Co-sign Detail Recorded Client Recorded Date Recorded By Document 08/28/24 13:43 [facility] [id number] 08/28/24 13:44 [facility] 08/28/24 13:43 Wound Care Center Nurse 3 #14- L SACRAL POST OP -Ulcer Cleansing Rinsed/ Irrigated with Saline -Foul Odor after Cleansing No -Primary Dressing Applied Silicone Border Foam 4x4, Silvercel -Silicone Border Foam 4x4 1 -Silvercel 1 Treatment Response Procedure Tolerated Well Pain Scale: 0-10 Numeric Is Patient Pain Free? Yes WC - Visit Discharge Discharge Condition Stable Ambulatory Status Wheelchair Assessment/Plan Assessment/Plan (1) Pressure injury of sacral region, stage 4: CODE(S): L89.154 - Pressure ulcer of sacral region, stage 4 (2) Osteomyelitis of sacrum: CODE(S): M46.28 - Osteomyelitis of vertebra, sacral and sacrococcygeal region (3) Diabetes mellitus: CODE(S): E11.9 - Type 2 diabetes mellitus without complications QUALIFIERS: Diabetes mellitus type: type 2 Diabetes mellitus complication status: with skin complications (4) Tobacco use disorder: CODE(S): F17.200 - Nicotine dependence, unspecified, uncomplicated (5) Paraplegia: CODE(S): G82.20 - Paraplegia, unspecified (6) Smoker: CODE(S): F17.200 - Nicotine dependence, unspecified, uncomplicated (7) Swelling, mass, or lump in head and neck: CODE(S): R22.0 - Localized swelling, mass and lump, head; R22.1 - Localized swelling, mass and lump, neck PLAN: Plan Wound care -Silver cell top with gauze covered with ABD or Mepilex dressings daily. Wash ulcer and vivi wound with soap and water at the time of the dressing change (instructed to stop wiping with Dakin's after washing with soap and water). Due to the amount of swelling and discomfort she is experiencing in her right lower jaw and neck, I am recommending she go to the ED for further evaluation of this issue. She states that she will be evaluated for the swelling. She has seen field service analyst for evaluation of her nutritional status. Follow up two weeks. Due to transportation issues she has difficult time coming weekly.
[2024-09-11 13:26] VITALS: BP 105/63; PULSE 79; RESP 18; TEMP 36.1
--- NOTE | 2024-09-11 14:14 | PCM.WC.HP ---
History of Present Illness Date of Service: 09/11/24 Chief Complaint: Sacral pressure ulcer History of Wound: I am seeing the patient today on behalf of her normal Wound Center provider. The patient's History of Wound, as previously documented below, has been reviewed. Patient is a 64 year old female who previously was a patient here and known to me, but had back surgery in early September 2022 at [facility] and then went to rehab at [facility] after that. She had a aurelia replaced in her back. Before her surgery, she was not able to lie flat due to increased pain, so she spent most of her time in her wheelchair. Now since her surgery, she is in too much back pain to sit in her wheelchair. She presents today with an ulcer to her sacrum. She was in the ED on 12/10/22 for increased wound drainage and was treated with Keflex, which she has completed. She does have home health to assist with dressing changes. She has lost 100 lbs since last being here in early September. Wound culture 12/26/22 positive for Proteus mirabilis, Enterococcus faecalis, Streptococcus agalactiae, Anaerobic cocci and Bacteroides fragilis. She was treated with Augmentin. Wound culture from 01/23/23 was positive for MRSA and Morganella morganii. The MRSA was treated with Doxycycline. Wound culture 04/03/23 positive for Proteus mirabilis, Enterococcus faecalis, and Anaerobic cocci. She was treated with Augmentin. Wound culture from 07/03/23 positive for Proteus mirabilis and Enterococcus faecalis which was treated with Augmentin. Wound culture was done on 08/23/23. It was negative. She had CT Pelvis on 09/20/23. It showed evidence of tissue defect in the medial aspect of the right buttock abutting the distal sacrum. This most likely represents an ulcerated pressure ulcer. Normal urinary bladder. Normal visualized small intestine. Moderate amount of fecal material is seen in the colon. There is no pelvic fluid. There is no pelvic mass lesion or lymphadenopathy. There is diffuse atherosclerotic calcification of the pelvic arteries. Phleboliths are seen in the pelvis. Normal abdominal wall. Extensive metallic streak artifacts due to fusion with intrapedicular screw and aurelia fixation the lower lumbar spine. Surgery 01/01/24 - Excision sacral pressure sore, Stage IV, with partial ostectomy for osteomyelitis. Pathology of sacral bone consistent with chronic osteomyelitis. Soft tissue and skin of sacral region showed ulceration with associated acute and chronic inflammation and granulation. Operative bone culture from 01/01/24 positive for Staphylococcus haemolyticus. She will be treated for 6 weeks for positive bone cultures. Operative tissue culture from 01/01/24 positive for Corynebacterium striatum, Strep anginosus, Prevotella disiens, and Anaerobic cocci. She will be treated with Doxycycline and Augmentin. [facility] Medical History Diabetes mellitus type 2, controlled GERD without esophagitis COPD (chronic obstructive pulmonary disease) Tobacco abuse counseling History of methicillin resistant staphylococcus aureus (MRSA) Wears glasses Post-menopausal Depression Marijuana use Neuropathy Thyroid disease Arthritis Back pain Gastric reflux Smoker Paraplegia History of stress test Personal history of Methicillin resistant Staphylococcus aureus infection Diabetes mellitus Pressure injury of sacral region, stage 4 Weight loss Positive colorectal cancer screening using Cologuard test Witnessed seizure-like activity Ulcer of left lower leg Ulcer of right lower extremity with fat layer exposed Ulcer of left lower extremity with fat layer exposed Toxic encephalopathy Wound, open, abdominal wall, anterior Current tobacco use Chest pain, unspecified Bone lesion Intractable low back pain Major depressive disorder Chronic cluster headache, not intractable Age-related osteoporosis without current pathological fracture Primary generalized (osteo)arthritis Other intervertebral disc degeneration, lumbar region Hypothyroidism Anemia Muscle weakness Spinal stenosis, lumbar region without neurogenic claudication Neuromuscular scoliosis Chronic low back pain Paraplegia Morbid obesity HTN (hypertension) HLD (hyperlipidemia) Home Medications ?Medication ?Instructions ?Recorded ?Last Taken ?Type ejmcomljvxio-nbmndcwx-exynza 1 tab PO DAILY supplement 02/26/18 12/31/23 History tablet (Cerovite Senior) pantoprazole 40 mg tablet,delayed 40 mg PO BID PRN stomach 09/17/20 12/31/23 History release acetaminophen 500 mg tablet 500 mg PO Q6H PRN Pain 1-10 Or 10/08/20 12/31/23 History Fever albuterol sulfate 90 mcg/actuation 2 puff inhalation Q4H PRN PRN Sob 10/08/20 Unknown History aerosol inhaler &/Or Wheezing betamethasone valerate 0.1 % 1 applic topical BID PRN skin 01/15/21 12/31/23 Rx topical cream irritation #15 grams cetirizine 10 mg tablet 10 mg PO DAILY #30 tabs 01/15/21 12/31/23 Rx hydrocolloid dressing 4 X 4 #5 ea 09/07/21 Unknown Rx (DuoDERM CGF Adhesive Border Dressing) biotin 1 mg tablet 1 mg PO DAILY SUPPLEMENT 05/17/22 12/31/23 History calcium citrate 250 mg PO DAILY SUPPLEMENT 05/17/22 12/31/23 History cholecalciferol (vitamin D3) 25 25 mcg PO DAILY SUPPLEMENT 05/17/22 12/31/23 History mcg (1,000 unit) capsule cyanocobalamin (vitamin B-12) 1,000 mcg PO DAILY SUPPLEMENT 05/17/22 12/31/23 History 1,000 mcg tablet ferrous sulfate 325 mg (65 mg 325 mg PO DAILY SUPPLEMENT 05/17/22 12/31/23 History iron) tablet mupirocin 2 % topical ointment 1 applic topical DAILY PRN Wound 05/17/22 12/31/23 History Care gabapentin 300 mg capsule 300 mg PO BID 30 days #60 caps 05/19/22 01/01/24 Rx dextran 70-hypromellose 0.1 %-0.3 1 drp ophthalmic (eye) TID PRN dry 05/25/22 12/31/23 History % eye drops (Artificial Tears eye(s) (dextran 70-hypromellose)) ipratropium 20 mcg-albuterol 100 1 puff inhalation Q6H PRN copd 05/25/22 01/01/24 History mcg/actuation mist for inhalation (Combivent Respimat) nystatin 100,000 unit/gram topical 1 applic topical BID 10 days #30 07/08/22 12/31/23 Rx powder grams sennosides 8.6 mg tablet (Senna 8.6 mg PO .QOD STOOL 08/25/22 12/31/23 History Lax) lorazepam 0.5 mg tablet 0.5 mg PO BID PRN Anxiety 12/01/22 01/01/24 History methadone 5 mg tablet 10 mg PO BID 12/01/22 12/31/23 History naloxone 4 mg/actuation nasal 1 spray intranasal Q2M PRN opioid 12/01/22 Unknown History spray (Narcan) overdose oxycodone-acetaminophen 10 mg-325 1 tab PO Q3H PRN Pain 12/01/22 01/01/24 History mg tablet (Percocet) scopolamine base 1 mg over 3 days 1 patch transdermal Q3D PRN nausea 05/16/23 Unknown Rx transdermal patch and vomiting #10 ea lidocaine 5 % topical ointment 1 applic topical TID PRN pain #30 07/12/23 12/31/23 Rx grams levothyroxine 175 mcg tablet 175 mcg PO DAILY disorder of 12/26/23 12/31/23 History thyroid gland magnesium glycinate 100 mg (as 200 mg PO BID 12/26/23 12/31/23 History glycinate) tablet doxycycline hyclate 100 mg tablet 100 mg PO BID 14 days #28 tabs 01/02/24 Unknown Rx amoxicillin 875 mg-potassium 1 tab PO Q12H 14 days #28 tabs 01/24/24 Unknown Rx clavulanate 125 mg tablet valacyclovir 500 mg tablet 500 mg PO DAILY Check with primary 02/06/24 Unknown Rx (Valtrex) doctor #30 tabs amoxicillin 875 mg-potassium 1 tab PO BID 7 days #14 tabs 08/28/24 Unknown Rx clavulanate 125 mg tablet cefuroxime axetil 500 mg tablet 500 mg PO BID 09/11/24 Unknown History Allergy/AdvReac Type Severity Reaction Status Date / Time NSAIDS (Non-Steroidal Allergy GASTRIC Verified 08/28/24 14:03 Anti-Inflamma BYPASS ondansetron (From Zofran) AdvReac Other Verified 08/28/24 14:03 trazodone AdvReac Other Verified 08/28/24 14:03 Family History Father Diabetes Hypertension Myocardial infarction Alcoholism Brother Myocardial infarction Alcoholism Mother CVA (cerebral vascular accident) Surgical History S/P laminectomy with spinal fusion H/O dilation and curettage History of bilateral salpingo-oophorectomy S/P arthroscopic knee surgery s/p nerve spine surgery S/P lumbar spine operation s/p upper back surgery skin graft Hydradenitis History of cholecystectomy H/O gastric bypass Social History Smoking Status: Current every day smoker tobacco type: cigarettes alcohol intake: never substance use type: does not use caffeine: Yes what type of physical activity do you participate in: none seatbelt use: always do you feel safe at home: Yes additional social history: Vital Signs Vital Signs Vital Signs: 09/11/24 13:26 Temperature 97.0 F L Temperature Source Temporal Pulse Rate 79 Respiratory Rate 18 Blood Pressure 105/63 Blood Pressure Mean 77 Blood Pressure Source Monitor Blood Pressure Position Semi-Fowlers Blood Pressure Location Left Arm Oxygen Delivery Method Room Air Weight Weight: 149 lb 14.629 oz Physical Exam Const alert, oriented x3, no apparent distress, average body habitus and well nourished Constitutional Narrative: The patient's BMI is 24.2. The patient is paraplegic. General Appearance: cooperative and comfortable Orientation / Consciousness: awake, oriented to person, oriented to place and oriented to time Exam Limitations: physical limitations HEENT normocephalic and head/scalp atraumatic Head and Scalp: normal to inspection, normocephalic and atraumatic Face and Sinus: normal facial exam Nose: external nose normal External Ear: external ears normal Eyes EOMs intact bilaterally General Eye: normal appearance of both eyes Resp normal respiratory effort, normal air movement, no retractions and no use of accessory muscles Effort and Inspection: able to speak in complete sentences Extremity General Extremity: Negative for clubbing or cyanosis Skin Wound Narrative: A large sacrococcygeal pressure ulceration is noted. It appears to be a stage III pressure ulceration. It extends through the cutaneous layers and into the subcutaneous tissues. Bone and fascia are not visible. The base of the ulcer demonstrates pink, healthy granulation tissue. There is evidence of peripheral epithelialization, suggesting successful healing progress. There is a moderate amount of bioburden and a small amount of nonviable tissue. Ulcer margins are not well beveled. There is no sign of infection or cellulitis. The periwound dermis is unremarkable. Dimensions are documented elsewhere. A long, well-healed midline incision is noted over the patient's lumbar spine. Neuro oriented x3 and CN's II-XII intact bilaterally Neuro Narrative: The patient is paraplegic. Sensorium / Orientation: awake, alert, oriented to person, oriented to place and oriented to time Speech: speech normal Psych cooperative and speech normal Appearance: grossly normal and appropriate Attitude: calm Activity / Motor Behavior: appropriate eye contact Speech: normal speech Mood & Affect: euthymic mood Attention / Concentration: attention grossly intact Debridement Note Debridement Note Wound debrided: Sacro-coccygeal pressure ulceration, stage III Laterality: Not Applicable Type of Debridement: Excisional debridement Anesthesia Used: 5% Lidocaine Gel Depth: Down to and including healthy tissue and in the subcutaneous layer Percentage of wound debrided: 100 Instrument Used: 5mm curette Tissue Removed: Bioburden and nonviable tissue. Severity: Fat Layer Exposed Amount of bleeding with debridement: Mild Bleeding Controlled with: Compression and gauze Patient tolerated procedure: Patient tolerated procedure well Post-Debridement Measurements and Additional Note: Post-Debridement Measurements/Treatment - Nurse 1 - General Ulcer Assessment Start: 08/28/24 13:16 Freq: Status: Active Protocol: SCOTT[employer]ink [employer] Activity Type Activity Date Activity User E-sign Co-sign Detail Recorded Client Recorded Date Recorded By Document 08/28/24 13:17 [facility] [id number] 08/28/24 13:21 [facility] Document 09/11/24 13:26 RI [id number] 09/11/24 13:36 RI 08/28/24 09/11/24 13:17 13:26 - Today's Visit Information Type of service Follow-up Visit Follow-up Visit (Physician/FLIPPING MACHINE OPERATOR (Physician/FLIPPING MACHINE OPERATOR ) ) Arrival Mode Wheelchair Wheelchair Transfer Assistance Other None Transfer Assist (Other) 1 Patient Identification Verified (Name & Yes Yes ) Patient Requires Transmission-Based No No Precautions Vital Signs Temperature (97.8 F-99.1 F) 95.6 F L 97.0 F L Temperature Source Temporal Temporal Pulse Rate (60-100) 77 79 Pulse Location Monitor Monitor Respiratory Rate (12-18) 16 18 Respiratory rate source Observation Observation Oxygen Delivery Method Room Air Room Air Blood Pressure (90/60-120/80) 132/75 H 105/63 Blood Pressure Mean 94 77 Source Monitor Monitor Position Supine Semi-Fowlers Blood Pressure Location Left Arm Left Arm History Since Last Visit- (Skip if this is Patient's initial visit) Have you changed medications since your No Yes last visit? Any new allergies or adverse reactions No No Had a fall/change in ADL's that may No No increase risk of falls Signs or symptoms of abuse and/or No No neglect since last visit Have you been in the hospital since your No No last visit? Has dressing in place as prescribed Yes Yes Has compression in place as prescribed N/A N/A Has offloadiing in place as prescribed N/A N/A Experienced any changes in pain level or No No management Left Footwear Slipper Right Footwear Slipper Pain Scale: 0-10 Numeric Is Patient Pain Free? Yes Yes WC - Nurse 1 - General Ulcer Measurement Start: 08/28/24 13:16 Freq: Status: Active Protocol: Activity Type Activity Date Activity User E-sign Co-sign Detail Recorded Client Recorded Date Recorded By Document 08/28/24 13:17 [facility] [id number] 08/28/24 13:21 [facility] Document 09/11/24 13:26 RI [id number] 09/11/24 13:36 RI 08/28/24 09/11/24 13:17 13:26 Wound Center Nurse 1 #14- L SACRAL POST OP -Combined with other wound No -Current Size (cm) - Length 4 4.5 -Current Size (cm) - Width 2 3.2 -Current Size (cm) - Depth 0.1 0.1 -Total Square Cm 8 14.40 -Photo Taken No -Epithelialization None Present Large 67-100% -Tunneling No No -Undermining/Tunneling No No -Circular Undermining No No -Exudate Amt Medium Small -Exudate Type Serosanguineous Serosanguineous -Wound Margin Thickened & Distinct, Rolled Under Outline Attached -Granulation Amt Large (67-100%) Medium (34-66%) -Granulation Quality Hyper- Red granulation, Pale,Red -Slough/Fibrin Yes No -Necrosis Amt Small (1-33%) None Present (0 %) -Necrotic Tissue Type Adherent Slough -Texture (Vivi-wound Skin Appearance) Assessed, Assessed Scarring -Moisture (Vivi-wound Skin Appearance) Assessed Assessed -Color (Vivi-wound Skin Appearance) Assessed Assessed -Temperature (Vivi-wound Skin No Abnormality No Abnormality Appearance) (Pt Warm) (Pt Warm) -Tenderness on Palpation (Vivi-wound No Skin Appearance) -Ulcer Cleansing Rinsed/ Not Cleansed Irrigated with Saline -Foul Odor after Cleansing No No -Anesthetic Used 5% Lidocaine 4% Lidocaine Gel Solution WC - Nurse 2 - General Ulcer CM Notes Start: 08/28/24 13:16 Freq: Status: Active Protocol: Activity Type Activity Date Activity User E-sign Co-sign Detail Recorded Client Recorded Date Recorded By Document 08/28/24 13:24 [facility] [id number] 08/28/24 13:33 [facility] Document 09/11/24 13:44 [id number] 09/11/24 13:55 08/28/24 09/11/24 13:24 13:44 Wound Center Nurse 2 #14- L SACRAL POST OP -Time 13:25 13:44 -Correct Patient Yes Yes -Correct Side, Site, Position Yes Yes -Correct Procedure Yes Yes -Procedure Performed Yes Yes -Type of Procedure Debridement Debridement -Clinical Debridement Subcutaneous Subcutaneous -Tissue Removed Subcutaneous Subcutaneous -Post Debridement (cm) - Length 4.5 3.5 -Post Debridement (cm) - Width 2 1.0 -Post Debridement (cm) - Depth 0.1 0.1 -Total Square (Post) (cm) 9.0 3.50 -Area of Debridement (cm) - Length 4.5 3.5 -Area of Debridement (cm) - Width 2 1.0 -Total Square (Area) (cm) 9.0 3.50 -Tunneling No No -Undermining/Tunneling No No -Circular Undermining No Yes -Wound/Ulcer Outcome Not Healed Not Healed -Ulcer Cleansing Rinsed/ Rinsed/ Irrigated with Irrigated with Saline Saline -Foul Odor after Cleansing No No -Bioengineered Tissue No No -Bleeding Controlled with Pressure Pressure -Treatment Response Procedure Procedure Tolerated Well Tolerated Well -Debridement - Subq, 1st 20sq cm Yes Yes Pain Scale: 0-10 Numeric Is Patient Pain Free? Yes Yes - Nurse 3 - General Ulcer D/C NN Start: 08/28/24 13:16 Freq: Status: Active Protocol: Activity Type Activity Date Activity User E-sign Co-sign Detail Recorded Client Recorded Date Recorded By Document 08/28/24 13:43 [facility] [id number] 08/28/24 13:44 [facility] Document 09/11/24 13:56 [id number] 09/11/24 13:57 08/28/24 09/11/24 13:43 13:56 Wound Care Center Nurse 3 #14- L SACRAL POST OP -Ulcer Cleansing Rinsed/ Irrigated with Saline -Foul Odor after Cleansing No -Primary Dressing Applied Silicone Border Foam 4x4, Silvercel -Silicone Border Foam 4x4 1 -Silvercel 1 Treatment Response Procedure Tolerated Well Pain Scale: 0-10 Numeric Is Patient Pain Free? Yes Yes - Visit Discharge Discharge Condition Stable Stable Ambulatory Status Wheelchair Wheelchair Transportation Private Auto #14- L SACRAL POST OP -Ulcer Cleansing Not Cleansed -Foul Odor after Cleansing No -Primary Dressing Applied Silicone Border Foam 6x6, Silvercel -Silicone Border Foam 6x6 1 -Silvercel 1 Lab / Micro Data Labs: Laboratory Tests 08/28/24 17:36 WBC 6.6 Hgb 12.4 Hct 37.1 Plt Count 184 Sodium 140 Potassium 4.4 Chloride 111 H BUN 24 H Creatinine 0.99 Glucose 106 Calcium 9.6 Charges/Coding Multi Select Codes Visit Charges Office Visit/Consults: 49347 OV L3 New 30 min Integumentary Integumentary CPT Codes: 00468 Shila subq tissue 20 sq cm/< Assessment/Plan Assessment/Plan (1) Decubitus ulcer of coccygeal region, stage 3: CODE(S): L89.153 - Pressure ulcer of sacral region, stage 3 (2) Pressure ulcer of coccygeal region: CODE(S): L89.159 - Pressure ulcer of sacral region, unspecified stage QUALIFIERS: Pressure injury stage: stage 3 Qualified Code(s): L89.153 - Pressure ulcer of sacral region, stage 3 (3) Diabetes mellitus type 2, controlled: CODE(S): E11.9 - Type 2 diabetes mellitus without complications (4) Paraplegia: CODE(S): G82.20 - Paraplegia, unspecified (5) History of methicillin resistant staphylococcus aureus (MRSA): CODE(S): Z86.14 - Personal history of Methicillin resistant Staphylococcus aureus infection (6) S/P laminectomy with spinal fusion: CODE(S): Z98.1 - Arthrodesis status (7) Smoker: CODE(S): F17.200 - Nicotine dependence, unspecified, uncomplicated (8) Tobacco abuse counseling: CODE(S): Z71.6 - Tobacco abuse counseling (9) Cannabis hyperemesis syndrome concurrent with and due to cannabis dependence: CODE(S): F12.288 - Cannabis dependence with other cannabis-induced disorder (10) Personal history of Methicillin resistant Staphylococcus aureus infection: CODE(S): Z86.14 - Personal history of Methicillin resistant Staphylococcus aureus infection (11) Diabetes mellitus: CODE(S): E11.9 - Type 2 diabetes mellitus without complications QUALIFIERS: Diabetes mellitus type: type 2 Diabetes mellitus complication status: with skin complications (12) H/O gastric bypass: CODE(S): Z98.84 - Bariatric surgery status (13) History of cholecystectomy: CODE(S): Z98.890 - Other specified postprocedural states; Z90.49 - Acquired absence of other specified parts of digestive tract PLAN: Plan This is a 64-year-old paraplegic with multiple pre-existing medical problems. She has been a patient at the Wound Center and treated for a sacro-coccygeal pressure ulceration. Based upon the current appearance of the patient's ulceration, there is evidence of peripheral epithelialization and diminishing size. The ulceration appears clean and free of infection, with evidence of pink, healthy granulation tissue. We are to continue current management using SilverCel topically on a daily basis. Patient is assisted by home health aide and home health nursing personnel. She has been instructed to optimize her nutritional intake, and take nutritional supplements, though she insists that her oral intake is adequate. She is known to be a tobacco smoker, and discussion has been undertaken to encourage the patient to discontinue her habit. She is currently smoking 3/4 pack/day. She has previously been diagnosed as a diabetic, but insists that her diabetes has come under control since significant weight loss as a result of gastric bypass surgery. The issue of offloading has also been discussed with patient, and she appears to understand the importance of minimizing pressure to the area of her wound by means of frequent repositioning. Review of the patient's recent records reveals that she was recently evaluated in the Emergency Department and diagnosed with right parotiditis, for which she was placed on an oral antibiotic. The patient is to return in 1 week for reevaluation. Total time: 35 minutes
== END 2024-09-20 23:59 | disposition home or self-care (01) ==
LOC: WC 13:15
PROVIDERS: PCP Internal Medicine; Referring Provider Nurse Practitioner Family; Visit Provider Nurse Practitioner Family
DX: E11.622 Type 2 diabetes mellitus with other skin ulcer (principal); L89.153 Pressure ulcer of sacral region, stage 3; G82.20 Paraplegia, unspecified; F12.288 Cannabis dependence with other cannabis-induced disorder; J44.9 Chronic obstructive pulmonary disease, unspecified; E11.40 Type 2 diabetes mellitus with diabetic neuropathy, unspecified; Z82.3 Family history of stroke; K21.9 Gastro-esophageal reflux disease without esophagitis; D64.9 Anemia, unspecified; Z71.6 Tobacco abuse counseling; E78.5 Hyperlipidemia, unspecified; I10 Essential (primary) hypertension; G89.29 Other chronic pain; Z98.1 Arthrodesis status; F17.210 Nicotine dependence, cigarettes, uncomplicated; Z86.14 Personal history of Methicillin resistant Staphylococcus aureus infection; Z90.49 Acquired absence of other specified parts of digestive tract; Z98.84 Bariatric surgery status
CPT/HCPCS: 11042

== ENCOUNTER 2024-10-02 13:30 | Outpatient (RCR) | payer MEDICARE, MEDICAID, SELFPAY ==
[2024-09-21 00:48] VITALS: BP 105/63; PULSE 79; RESP 18; TEMP 36.1
[2024-10-02 13:22] VITALS: BP 141/92; PULSE 102; RESP 16; TEMP 36.4
--- NOTE | 2024-10-02 15:23 | PCM.WC.PN ---
History of Present Illness Date of Service: 10/02/24 Chief Complaint: Sacral pressure ulcer History of Wound: I am seeing the patient today on behalf of her normal Wound Center provider. The patient's History of Wound, as previously documented below, has been reviewed. Patient is a 64 year old female who previously was a patient here and known to me, but had back surgery in early September 2022 at [facility] and then went to rehab at [place] after that. She had a aurelia replaced in her back. Before her surgery, she was not able to lie flat due to increased pain, so she spent most of her time in her wheelchair. Now since her surgery, she is in too much back pain to sit in her wheelchair. She presents today with an ulcer to her sacrum. She was in the ED on 12/10/22 for increased wound drainage and was treated with Keflex, which she has completed. She does have home health to assist with dressing changes. She has lost 100 lbs since last being here in early September. Wound culture 12/26/22 positive for Proteus mirabilis, Enterococcus faecalis, Streptococcus agalactiae, Anaerobic cocci and Bacteroides fragilis. She was treated with Augmentin. Wound culture from 01/23/23 was positive for MRSA and Morganella morganii. The MRSA was treated with Doxycycline. Wound culture 04/03/23 positive for Proteus mirabilis, Enterococcus faecalis, and Anaerobic cocci. She was treated with Augmentin. Wound culture from 07/03/23 positive for Proteus mirabilis and Enterococcus faecalis which was treated with Augmentin. Wound culture was done on 08/23/23. It was negative. She had CT Pelvis on 09/20/23. It showed evidence of tissue defect in the medial aspect of the right buttock abutting the distal sacrum. This most likely represents an ulcerated pressure ulcer. Normal urinary bladder. Normal visualized small intestine. Moderate amount of fecal material is seen in the colon. There is no pelvic fluid. There is no pelvic mass lesion or lymphadenopathy. There is diffuse atherosclerotic calcification of the pelvic arteries. Phleboliths are seen in the pelvis. Normal abdominal wall. Extensive metallic streak artifacts due to fusion with intrapedicular screw and aurelia fixation the lower lumbar spine. Surgery 01/01/24 - Excision sacral pressure sore, Stage IV, with partial ostectomy for osteomyelitis. Pathology of sacral bone consistent with chronic osteomyelitis. Soft tissue and skin of sacral region showed ulceration with associated acute and chronic inflammation and granulation. Operative bone culture from 01/01/24 positive for Staphylococcus haemolyticus. She will be treated for 6 weeks for positive bone cultures. Operative tissue culture from 01/01/24 positive for Corynebacterium striatum, Strep anginosus, Prevotella disiens, and Anaerobic cocci. She will be treated with Doxycycline and Augmentin. Progress of Wound: The ulcer is pink color, it is slightly smaller. Vivi wound is clear. Objective Data Objective Data Vital Signs: Vital Signs Temp Pulse Resp BP O2 Del Method 97.6 F L 102 H 16 141/92 H Room Air 10/02/24 13:22 10/02/24 13:22 10/02/24 13:22 10/02/24 13:22 10/02/24 13:22 Oxygen Delivery Method Room Air Weight: 149 lb 14.629 oz Charges/Coding Procedures Integumentary 111xxx-113xx: 99460 Shila subq tissue 20 sq cm/< Debridement Note Debridement Note Wound debrided: #14 Sacral area. Laterality: Not Applicable Wound Grade/Stage: III. Type of Debridement: Excisional debridement Anesthesia Used: 5% Lidocaine Gel Depth: Down to and including healthy tissue and in the subcutaneous layer Percentage of wound debrided: 100 Instrument Used: 5mm curette Tissue Removed: subcutaneous tissue, senescent cells, devitalized tissue Severity: Fat Layer Exposed (muscle is exposed. bone is palpable but not exposed.) Amount of bleeding with debridement: Mild Bleeding Controlled with: Pressure and Compression and gauze Patient tolerated procedure: Patient tolerated procedure well Post-Debridement Measurements and Additional Note: Post-Debridement Measurements/Treatment - Nurse 1 - General Ulcer Assessment Start: 10/02/24 13:22 Freq: Status: Active Protocol: SCOTTY.LOWLIYAT Activity Type Activity Date Activity User E-sign Co-sign Detail Recorded Client Recorded Date Recorded By Document 10/02/24 13:22 [facility] [id number] 10/02/24 13:31 [facility] 10/02/24 13:22 - Today's Visit Information Type of service Follow-up Visit (Physician/SCHOOL BUS DRIVER/MECHANIC ) Arrival Mode Wheelchair Transfer Assistance Other Transfer Assist (Other) 1 Accompanied by RAMAKRISHNA WAITS IN [facility] Patient Identification Verified (Name & Yes ) Patient Requires Transmission-Based No Precautions Vital Signs Temperature (97.8 F-99.1 F) 97.6 F L Temperature Source Temporal Pulse Rate (60-100) 102 H Pulse Location Monitor Respiratory Rate (12-18) 16 Respiratory rate source Observation Oxygen Delivery Method Room Air Blood Pressure (90/60-120/80) 141/92 H Blood Pressure Mean (mm Hg) 108 Source Monitor Position Sitting Blood Pressure Location Right Arm History Since Last Visit- (Skip if this is Patient's initial visit) Have you changed medications since your No last visit? Any new allergies or adverse reactions No Had a fall/change in ADL's that may No increase risk of falls Signs or symptoms of abuse and/or No neglect since last visit Have you been in the hospital since your No last visit? Has dressing in place as prescribed Yes Has compression in place as prescribed N/A Has offloadiing in place as prescribed N/A Experienced any changes in pain level or No management Left Footwear Slipper Right Footwear Slipper Pain Scale: 0-10 Numeric Is Patient Pain Free? Yes WC - Nurse 1 - General Ulcer Measurement Start: 10/02/24 13:22 Freq: Status: Active Protocol: Activity Type Activity Date Activity User E-sign Co-sign Detail Recorded Client Recorded Date Recorded By Document 10/02/24 13:22 [facility] [id number] 10/02/24 13:31 [facility] 10/02/24 13:22 Wound Center Nurse 1 #14- L SACRAL POST OP -Combined with other wound No -Current Size (cm) - Length 5.1 -Current Size (cm) - Width 1.3 -Current Size (cm) - Depth 0.1 -Total Square Cm 6.63 -Date of Last Picture (Recall this 10/02/24 field) -Photo Taken Yes -Epithelialization Small 1-33% -Tunneling No -Undermining/Tunneling No -Circular Undermining No -Exudate Amt Medium -Exudate Type Serosanguineous -Wound Margin Distinct, Outline Attached -Granulation Amt Medium (34-66%) -Granulation Quality Red -Slough/Fibrin Yes -Necrosis Amt Medium (34-66%) -Necrotic Tissue Type Adherent Slough -Texture (Vivi-wound Skin Appearance) Assessed, Scarring -Moisture (Vivi-wound Skin Appearance) Assessed -Color (Vivi-wound Skin Appearance) Assessed -Temperature (Vivi-wound Skin No Abnormality Appearance) (Pt Warm) -Tenderness on Palpation (Vivi-wound No Skin Appearance) -Ulcer Cleansing Rinsed/ Irrigated with Saline -Foul Odor after Cleansing No -Anesthetic Used 5% Lidocaine Gel WC - Nurse 2 - General Ulcer CM Notes Start: 10/02/24 13:22 Freq: Status: Active Protocol: Activity Type Activity Date Activity User E-sign Co-sign Detail Recorded Client Recorded Date Recorded By Document 10/02/24 13:36 GM [id number] 10/02/24 13:40 [facility] 10/02/24 13:36 Wound Center Nurse 2 -Time 13:37 -Correct Patient Yes -Correct Side, Site, Position Yes -Correct Procedure Yes -Procedure Performed Yes -Type of Procedure Debridement -Clinical Debridement Subcutaneous -Tissue Removed Subcutaneous -Post Debridement (cm) - Length 5.0 -Post Debridement (cm) - Width 2.0 -Post Debridement (cm) - Depth 0.1 -Total Square (Post) (cm) 10.00 -Area of Debridement (cm) - Length 5.0 -Area of Debridement (cm) - Width 2.0 -Total Square (Area) (cm) 10.00 -Tunneling No -Undermining/Tunneling No -Circular Undermining No -Wound/Ulcer Outcome Not Healed -Ulcer Cleansing Rinsed/ Irrigated with Saline -Foul Odor after Cleansing No -Bioengineered Tissue No -Bleeding Controlled with Pressure -Treatment Response Procedure Tolerated Well -Debridement - Subq, 1st 20sq cm Yes Pain Scale: 0-10 Numeric Is Patient Pain Free? Yes - Nurse 3 - General Ulcer D/C NN Start: 10/02/24 13:22 Freq: Status: Active Protocol: Activity Type Activity Date Activity User E-sign Co-sign Detail Recorded Client Recorded Date Recorded By Document 10/02/24 13:47 DL [id number] 10/02/24 14:01 DL 10/02/24 13:47 Wound Care Center Nurse 3 #14- L SACRAL POST OP -Ulcer Cleansing Soap and Water -Foul Odor after Cleansing No -Primary Dressing Applied Silicone Border Foam 6x6, Silvercel -Silicone Border Foam 6x6 1 -Silvercel 1 Treatment Response Procedure Tolerated Well Pain Scale: 0-10 Numeric Is Patient Pain Free? Yes WC - Visit Discharge Discharge Condition Stable Ambulatory Status Ambulatory Transportation [facility] Facility Type Home Health Orders Sent Yes Assessment/Plan Assessment/Plan (1) Pressure injury of sacral region, stage 4: CODE(S): L89.154 - Pressure ulcer of sacral region, stage 4 (2) Osteomyelitis of sacrum: CODE(S): M46.28 - Osteomyelitis of vertebra, sacral and sacrococcygeal region (3) Diabetes mellitus: CODE(S): E11.9 - Type 2 diabetes mellitus without complications QUALIFIERS: Diabetes mellitus type: type 2 Diabetes mellitus complication status: with skin complications (4) Tobacco use disorder: CODE(S): F17.200 - Nicotine dependence, unspecified, uncomplicated (5) Paraplegia: CODE(S): G82.20 - Paraplegia, unspecified (6) Smoker: CODE(S): F17.200 - Nicotine dependence, unspecified, uncomplicated (7) Swelling, mass, or lump in head and neck: CODE(S): R22.0 - Localized swelling, mass and lump, head; R22.1 - Localized swelling, mass and lump, neck PLAN: Plan Wound care -Silver cell top with gauze covered with ABD or Mepilex dressings daily. Wash ulcer and vivi wound with soap and water at the time of the dressing change. Due to the amount of swelling and discomfort she is experiencing in her right lower jaw and neck, I am recommending she go to the ED for further evaluation of this issue. She states that she will be evaluated for the swelling. She has seen electronics instructor for evaluation of her nutritional status due to her chronic non healing ulcer, and her unintentional weight loss. Follow up three weeks.
--- NOTE | 2024-10-03 11:12 | WC ---
PHOTO 10/02/24 SACRAL
--- NOTE | 2024-10-03 11:51 | WC ---
PHOTO 10/02/24 SACRAL
--- NOTE | 2024-10-03 11:54 | WC ---
PHOTO 10/02/24 SACRAL
== END 2024-10-21 23:59 | disposition home or self-care (01) ==
LOC: WC 13:30
PROVIDERS: PCP Internal Medicine; Referring Provider Nurse Practitioner Family; Visit Provider Nurse Practitioner Family
DX: L89.154 Pressure ulcer of sacral region, stage 4 (principal); G82.20 Paraplegia, unspecified; M46.28 Osteomyelitis of vertebra, sacral and sacrococcygeal region; E11.69 Type 2 diabetes mellitus with other specified complication; F17.200 Nicotine dependence, unspecified, uncomplicated; R22.0 Localized swelling, mass and lump, head
CPT/HCPCS: 11042

== ENCOUNTER 2024-11-20 13:00 | Outpatient (RCR) | payer MEDICARE, MEDICAID, SELFPAY ==
[2024-10-22 00:41] VITALS: BP 141/92; PULSE 102; RESP 16; TEMP 36.4
[2024-10-23 13:09] VITALS: BP 111/67; PULSE 82; RESP 16; TEMP 35.6
--- NOTE | 2024-10-23 15:15 | PCM.WC.PN ---
History of Present Illness Date of Service: 10/23/24 Chief Complaint: Sacral pressure ulcer History of Wound: I am seeing the patient today on behalf of her normal Wound Center provider. The patient's History of Wound, as previously documented below, has been reviewed. Patient is a 64 year old female who previously was a patient here and known to me, but had back surgery in early September 2022 at [facility] and then went to rehab at [facility] after that. She had a aurelia replaced in her back. Before her surgery, she was not able to lie flat due to increased pain, so she spent most of her time in her wheelchair. Now since her surgery, she is in too much back pain to sit in her wheelchair. She presents today with an ulcer to her sacrum. She was in the ED on 12/10/22 for increased wound drainage and was treated with Keflex, which she has completed. She does have home health to assist with dressing changes. She has lost 100 lbs since last being here in early September. Wound culture 12/26/22 positive for Proteus mirabilis, Enterococcus faecalis, Streptococcus agalactiae, Anaerobic cocci and Bacteroides fragilis. She was treated with Augmentin. Wound culture from 01/23/23 was positive for MRSA and Morganella morganii. The MRSA was treated with Doxycycline. Wound culture 04/03/23 positive for Proteus mirabilis, Enterococcus faecalis, and Anaerobic cocci. She was treated with Augmentin. Wound culture from 07/03/23 positive for Proteus mirabilis and Enterococcus faecalis which was treated with Augmentin. Wound culture was done on 08/23/23. It was negative. She had CT Pelvis on 09/20/23. It showed evidence of tissue defect in the medial aspect of the right buttock abutting the distal sacrum. This most likely represents an ulcerated pressure ulcer. Normal urinary bladder. Normal visualized small intestine. Moderate amount of fecal material is seen in the colon. There is no pelvic fluid. There is no pelvic mass lesion or lymphadenopathy. There is diffuse atherosclerotic calcification of the pelvic arteries. Phleboliths are seen in the pelvis. Normal abdominal wall. Extensive metallic streak artifacts due to fusion with intrapedicular screw and aurelia fixation the lower lumbar spine. Surgery 01/01/24 - Excision sacral pressure sore, Stage IV, with partial ostectomy for osteomyelitis. Pathology of sacral bone consistent with chronic osteomyelitis. Soft tissue and skin of sacral region showed ulceration with associated acute and chronic inflammation and granulation. Operative bone culture from 01/01/24 positive for Staphylococcus haemolyticus. She will be treated for 6 weeks for positive bone cultures. Operative tissue culture from 01/01/24 positive for Corynebacterium striatum, Strep anginosus, Prevotella disiens, and Anaerobic cocci. She will be treated with Doxycycline and Augmentin. Progress of Wound: The ulcer is pink color, it is slightly smaller. Vivi wound is clear. She states she is not getting much drainage. Objective Data Objective Data Vital Signs: Vital Signs Temp Pulse Resp BP O2 Del Method 96.1 F L 82 16 111/67 Room Air 10/23/24 13:09 10/23/24 13:09 10/23/24 13:09 10/23/24 13:09 10/23/24 13:09 Oxygen Delivery Method Room Air Weight: 149 lb 14.629 oz Charges/Coding Procedures Integumentary 111xxx-113xx: 31997 Shila subq tissue 20 sq cm/< Debridement Note Debridement Note Wound debrided: #14 Sacral area. Laterality: Not Applicable Wound Grade/Stage: III. Type of Debridement: Excisional debridement Anesthesia Used: 5% Lidocaine Gel Depth: Down to and including healthy tissue and in the subcutaneous layer Percentage of wound debrided: 100 Instrument Used: 5mm curette Tissue Removed: subcutaneous tissue, senescent cells, devitalized tissue Severity: Fat Layer Exposed (muscle is exposed. bone is palpable but not exposed.) Amount of bleeding with debridement: Mild Bleeding Controlled with: Pressure and Compression and gauze Patient tolerated procedure: Patient tolerated procedure well Post-Debridement Measurements and Additional Note: Post-Debridement Measurements/Treatment - Nurse 1 - General Ulcer Assessment Start: 10/23/24 13:09 Freq: Status: Active Protocol: SCOTTY.ZACK Activity Type Activity Date Activity User E-sign Co-sign Detail Recorded Client Recorded Date Recorded By Document 10/23/24 13:09 [facility] [id number] 10/23/24 13:15 [facility] 10/23/24 13:09 - Today's Visit Information Type of service Follow-up Visit (Physician/HOSPICE COORDINATOR ) Arrival Mode Wheelchair Transfer Assistance Other Transfer Assist (Other) stand by Patient Identification Verified (Name & Yes ) Patient Requires Transmission-Based No Precautions Vital Signs Temperature (97.8 F-99.1 F) 96.1 F L Temperature Source Temporal Pulse Rate (60-100) 82 Pulse Location Monitor Respiratory Rate (12-18) 16 Respiratory rate source Observation Oxygen Delivery Method Room Air Blood Pressure (90/60-120/80) 111/67 Blood Pressure Mean (mm Hg) 81 Source Monitor Position Sitting Blood Pressure Location Left Arm History Since Last Visit- (Skip if this is Patient's initial visit) Have you changed medications since your No last visit? Any new allergies or adverse reactions No Had a fall/change in ADL's that may No increase risk of falls Signs or symptoms of abuse and/or No neglect since last visit Have you been in the hospital since your No last visit? Has dressing in place as prescribed Yes Has compression in place as prescribed N/A Has offloadiing in place as prescribed N/A Experienced any changes in pain level or No management Left Footwear Slipper Right Footwear Slipper Pain Scale: 0-10 Numeric Is Patient Pain Free? Yes WC - Nurse 1 - General Ulcer Measurement Start: 10/23/24 13:09 Freq: Status: Active Protocol: Activity Type Activity Date Activity User E-sign Co-sign Detail Recorded Client Recorded Date Recorded By Document 10/23/24 13:09 [facility] [id number] 10/23/24 13:15 [facility] 10/23/24 13:09 Wound Center Nurse 1 #14- L SACRAL POST OP -Combined with other wound No -Current Size (cm) - Length 3.3 -Current Size (cm) - Width 1 -Current Size (cm) - Depth 0.1 -Total Square Cm 3.3 -Date of Last Picture (Recall this 10/23/24 field) -Photo Taken Yes -Epithelialization Small 1-33% -Tunneling No -Undermining/Tunneling No -Circular Undermining No -Exudate Amt Medium -Exudate Type Serosanguineous -Wound Margin Thickened -Granulation Amt Large (67-100%) -Granulation Quality Red -Slough/Fibrin Yes -Necrosis Amt Small (1-33%) -Necrotic Tissue Type Adherent Slough -Texture (Vivi-wound Skin Appearance) Assessed, Scarring -Moisture (Vivi-wound Skin Appearance) Assessed, Maceration -Color (Vivi-wound Skin Appearance) Assessed -Temperature (Vivi-wound Skin No Abnormality Appearance) (Pt Warm) -Tenderness on Palpation (Vivi-wound No Skin Appearance) -Ulcer Cleansing Rinsed/ Irrigated with Saline -Foul Odor after Cleansing No -Anesthetic Used 5% Lidocaine Gel WC - Nurse 2 - General Ulcer CM Notes Start: 10/23/24 13:09 Freq: Status: Active Protocol: Activity Type Activity Date Activity User E-sign Co-sign Detail Recorded Client Recorded Date Recorded By Document 10/23/24 13:34 [facility] [id number] 10/23/24 13:40 [facility] 10/23/24 13:34 Wound Center Nurse 2 -Time 13:34 -Correct Patient Yes -Correct Side, Site, Position Yes -Correct Procedure Yes -Procedure Performed Yes -Type of Procedure Debridement -Clinical Debridement Subcutaneous -Tissue Removed Subcutaneous -Post Debridement (cm) - Length 4 -Post Debridement (cm) - Width 1 -Post Debridement (cm) - Depth 0.1 -Total Square (Post) (cm) 4 -Area of Debridement (cm) - Length 4 -Area of Debridement (cm) - Width 1 -Total Square (Area) (cm) 4 -Tunneling No -Undermining/Tunneling No -Circular Undermining No -Wound/Ulcer Outcome Not Healed -Ulcer Cleansing Rinsed/ Irrigated with Saline -Foul Odor after Cleansing No -Bioengineered Tissue No -Bleeding Controlled with Pressure -Treatment Response Procedure Tolerated Well -Debridement - Subq, 1st 20sq cm Yes Pain Scale: 0-10 Numeric Is Patient Pain Free? Yes - Nurse 3 - General Ulcer D/C NN Start: 10/23/24 13:09 Freq: Status: Active Protocol: Activity Type Activity Date Activity User E-sign Co-sign Detail Recorded Client Recorded Date Recorded By Document 10/23/24 13:48 [facility] [id number] 10/23/24 13:48 [facility] 10/23/24 13:48 Wound Care Center Nurse 3 #14- L SACRAL POST OP -Ulcer Cleansing Rinsed/ Irrigated with Saline -Foul Odor after Cleansing No -Primary Dressing Applied Promogran Lyudmila Matter, Silicone Border Foam 4x4 -Promogran Lyudmila Matter 1 -Silicone Border Foam 4x4 1 Treatment Response Procedure Tolerated Well Pain Scale: 0-10 Numeric Is Patient Pain Free? Yes WC - Visit Discharge Discharge Condition Stable Ambulatory Status Wheelchair Accompanied by spike in lobby Facility Type Home Health Assessment/Plan Assessment/Plan (1) Pressure injury of sacral region, stage 4: CODE(S): L89.154 - Pressure ulcer of sacral region, stage 4 (2) Osteomyelitis of sacrum: CODE(S): M46.28 - Osteomyelitis of vertebra, sacral and sacrococcygeal region (3) Diabetes mellitus: CODE(S): E11.9 - Type 2 diabetes mellitus without complications QUALIFIERS: Diabetes mellitus type: type 2 Diabetes mellitus complication status: with skin complications (4) Tobacco use disorder: CODE(S): F17.200 - Nicotine dependence, unspecified, uncomplicated (5) Paraplegia: CODE(S): G82.20 - Paraplegia, unspecified (6) Smoker: CODE(S): F17.200 - Nicotine dependence, unspecified, uncomplicated (7) Swelling, mass, or lump in head and neck: CODE(S): R22.0 - Localized swelling, mass and lump, head; R22.1 - Localized swelling, mass and lump, neck PLAN: Plan Wound care -Switch to moistened Lyudmila covered with excel SAP daily. Wash ulcer and vivi wound with soap and water at the time of the dressing change. Encouraged to off load as much as possible to prevent pressure. She has seen investigative research specialist for evaluation of her nutritional status due to her chronic non healing ulcer, and her unintentional weight loss. Encouraged patient to stop smoking as it may have deleterious effects on wound healing. Follow up three weeks with Dr. Diehl.
--- NOTE | 2024-10-24 10:12 | WC ---
PHOTO 10/23/24 SACRAL
--- NOTE | 2024-10-30 15:46 | WC ---
Ayanna Jameson EMERGENCY DEPT TECH transfers care of this patient over to Dr. Diehl as of 10/30/24
[2024-11-06 13:37] VITALS: BP 132/71; PULSE 76; RESP 18
--- NOTE | 2024-11-08 14:14 | PCM.WC.HP ---
History of Present Illness Date of Service: 11/06/24 Chief Complaint: Sacral pressure ulcer History of Wound: This is a 64 year old female who had back surgery in early September 2022 at [facility] and then went to rehab at [facility] after that. She had a aurelia replaced in her back. Before her surgery, she was not able to lie flat due to increased pain, so she spent most of her time in her wheelchair. Now since her surgery, she is in too much back pain to sit in her wheelchair. She presented with an ulcer to her sacrum. She was in the ED on 12/10/22 for increased wound drainage and was treated with Keflex. She does have home health to assist with dressing changes. Wound culture 12/26/22 positive for Proteus mirabilis, Enterococcus faecalis, Streptococcus agalactiae, Anaerobic cocci and Bacteroides fragilis. She was treated with Augmentin. Wound culture from 01/23/23 was positive for MRSA and Morganella morganii. The MRSA was treated with Doxycycline. Wound culture 04/03/23 positive for Proteus mirabilis, Enterococcus faecalis, and Anaerobic cocci. She was treated with Augmentin. Wound culture from 07/03/23 positive for Proteus mirabilis and Enterococcus faecalis which was treated with Augmentin. Wound culture was done on 08/23/23. It was negative. She had CT Pelvis on 09/20/23. It showed evidence of tissue defect in the medial aspect of the right buttock abutting the distal sacrum. This most likely represents an ulcerated pressure ulcer. Normal urinary bladder. Normal visualized small intestine. Moderate amount of fecal material is seen in the colon. There is no pelvic fluid. There is no pelvic mass lesion or lymphadenopathy. There is diffuse atherosclerotic calcification of the pelvic arteries. Phleboliths are seen in the pelvis. Normal abdominal wall. Extensive metallic streak artifacts due to fusion with intrapedicular screw and aurelia fixation the lower lumbar spine. Surgery 01/01/24 - Excision sacral pressure sore, Stage IV, with partial ostectomy for osteomyelitis. The procedure was performed by Dr. Costa Hodge. Pathology of sacral bone consistent with chronic osteomyelitis. Soft tissue and skin of sacral region showed ulceration with associated acute and chronic inflammation and granulation. Operative bone culture from 01/01/24 positive for Staphylococcus haemolyticus. She was treated for 6 weeks for positive bone cultures. Operative tissue culture from 01/01/24 positive for Corynebacterium striatum, Strep anginosus, Prevotella disiens, and Anaerobic cocci. She was treated with Doxycycline and Augmentin. [facility] Medical History Diabetes mellitus type 2, controlled GERD without esophagitis COPD (chronic obstructive pulmonary disease) Tobacco abuse counseling History of methicillin resistant staphylococcus aureus (MRSA) Wears glasses Post-menopausal Depression Marijuana use Neuropathy Thyroid disease Arthritis Back pain Gastric reflux Smoker Paraplegia History of stress test Personal history of Methicillin resistant Staphylococcus aureus infection Diabetes mellitus Pressure injury of sacral region, stage 4 Weight loss Positive colorectal cancer screening using Cologuard test Witnessed seizure-like activity Ulcer of left lower leg Ulcer of right lower extremity with fat layer exposed Ulcer of left lower extremity with fat layer exposed Toxic encephalopathy Wound, open, abdominal wall, anterior Current tobacco use Chest pain, unspecified Bone lesion Intractable low back pain Major depressive disorder Chronic cluster headache, not intractable Age-related osteoporosis without current pathological fracture Primary generalized (osteo)arthritis Other intervertebral disc degeneration, lumbar region Hypothyroidism Anemia Muscle weakness Spinal stenosis, lumbar region without neurogenic claudication Neuromuscular scoliosis Chronic low back pain Paraplegia Morbid obesity HTN (hypertension) HLD (hyperlipidemia) Home Medications ?Medication ?Instructions ?Recorded ?Last Taken ?Type gsaodywnrykz-zdjcknqn-apaanc 1 tab PO DAILY supplement 02/26/18 12/31/23 History tablet (Cerovite Senior) pantoprazole 40 mg tablet,delayed 40 mg PO BID PRN stomach 09/17/20 12/31/23 History release acetaminophen 500 mg tablet 500 mg PO Q6H PRN Pain 1-10 Or 10/08/20 12/31/23 History Fever albuterol sulfate 90 mcg/actuation 2 puff inhalation Q4H PRN PRN Sob 10/08/20 Unknown History aerosol inhaler &/Or Wheezing betamethasone valerate 0.1 % 1 applic topical BID PRN skin 01/15/21 12/31/23 Rx topical cream irritation #15 grams cetirizine 10 mg tablet 10 mg PO DAILY #30 tabs 01/15/21 12/31/23 Rx hydrocolloid dressing 4 X 4 #5 ea 09/07/21 Unknown Rx (DuoDERM CGF Adhesive Border Dressing) biotin 1 mg tablet 1 mg PO DAILY SUPPLEMENT 05/17/22 12/31/23 History calcium citrate 250 mg PO DAILY SUPPLEMENT 05/17/22 12/31/23 History cholecalciferol (vitamin D3) 25 25 mcg PO DAILY SUPPLEMENT 05/17/22 12/31/23 History mcg (1,000 unit) capsule cyanocobalamin (vitamin B-12) 1,000 mcg PO DAILY SUPPLEMENT 05/17/22 12/31/23 History 1,000 mcg tablet ferrous sulfate 325 mg (65 mg 325 mg PO DAILY SUPPLEMENT 05/17/22 12/31/23 History iron) tablet mupirocin 2 % topical ointment 1 applic topical DAILY PRN Wound 05/17/22 12/31/23 History Care gabapentin 300 mg capsule 300 mg PO BID 30 days #60 caps 05/19/22 01/01/24 Rx dextran 70-hypromellose 0.1 %-0.3 1 drp ophthalmic (eye) TID PRN dry 05/25/22 12/31/23 History % eye drops (Artificial Tears eye(s) (dextran 70-hypromellose)) ipratropium 20 mcg-albuterol 100 1 puff inhalation Q6H PRN copd 05/25/22 01/01/24 History mcg/actuation mist for inhalation (Combivent Respimat) nystatin 100,000 unit/gram topical 1 applic topical BID 10 days #30 07/08/22 12/31/23 Rx powder grams sennosides 8.6 mg tablet (Senna 8.6 mg PO .QOD STOOL 08/25/22 12/31/23 History Lax) lorazepam 0.5 mg tablet 0.5 mg PO BID PRN Anxiety 12/01/22 01/01/24 History methadone 5 mg tablet 10 mg PO BID 12/01/22 12/31/23 History naloxone 4 mg/actuation nasal 1 spray intranasal Q2M PRN opioid 12/01/22 Unknown History spray (Narcan) overdose oxycodone-acetaminophen 10 mg-325 1 tab PO Q3H PRN Pain 12/01/22 01/01/24 History mg tablet (Percocet) scopolamine base 1 mg over 3 days 1 patch transdermal Q3D PRN nausea 05/16/23 Unknown Rx transdermal patch and vomiting #10 ea lidocaine 5 % topical ointment 1 applic topical TID PRN pain #30 07/12/23 12/31/23 Rx grams levothyroxine 175 mcg tablet 175 mcg PO DAILY disorder of 12/26/23 12/31/23 History thyroid gland magnesium glycinate 100 mg (as 200 mg PO BID 12/26/23 12/31/23 History glycinate) tablet doxycycline hyclate 100 mg tablet 100 mg PO BID 14 days #28 tabs 01/02/24 Unknown Rx amoxicillin 875 mg-potassium 1 tab PO Q12H 14 days #28 tabs 01/24/24 Unknown Rx clavulanate 125 mg tablet valacyclovir 500 mg tablet 500 mg PO DAILY Check with primary 02/06/24 Unknown Rx (Valtrex) doctor #30 tabs amoxicillin 875 mg-potassium 1 tab PO BID 7 days #14 tabs 08/28/24 Unknown Rx clavulanate 125 mg tablet cefuroxime axetil 500 mg tablet 500 mg PO BID 09/11/24 Unknown History Allergy/AdvReac Type Severity Reaction Status Date / Time NSAIDS (Non-Steroidal Allergy GASTRIC Verified 08/28/24 14:03 Anti-Inflamma BYPASS ondansetron (From Zofran) AdvReac Other Verified 08/28/24 14:03 trazodone AdvReac Other Verified 08/28/24 14:03 Family History Father Diabetes Hypertension Myocardial infarction Alcoholism Brother Myocardial infarction Alcoholism Mother CVA (cerebral vascular accident) Surgical History S/P laminectomy with spinal fusion H/O dilation and curettage History of bilateral salpingo-oophorectomy S/P arthroscopic knee surgery s/p nerve spine surgery S/P lumbar spine operation s/p upper back surgery skin graft Hydradenitis History of cholecystectomy H/O gastric bypass Social History Smoking Status: Current every day smoker tobacco type: cigarettes alcohol intake: never substance use type: does not use caffeine: Yes what type of physical activity do you participate in: none seatbelt use: always do you feel safe at home: Yes additional social history: Vital Signs Vital Signs Vital Signs: Weight Weight: 149 lb 14.629 oz Physical Exam Const alert, oriented x3, no apparent distress, average body habitus and well nourished Constitutional Narrative: The patient's BMI is 24.2. The patient is paraplegic. General Appearance: cooperative and comfortable Orientation / Consciousness: awake, oriented to person, oriented to place and oriented to time Exam Limitations: physical limitations HEENT normocephalic and head/scalp atraumatic Head and Scalp: normal to inspection, normocephalic and atraumatic Face and Sinus: normal facial exam Nose: external nose normal External Ear: external ears normal Eyes EOMs intact bilaterally General Eye: normal appearance of both eyes Resp normal respiratory effort, normal air movement, no retractions and no use of accessory muscles Effort and Inspection: able to speak in complete sentences Extremity General Extremity: Negative for clubbing or cyanosis Skin Wound Narrative: A large stage IV sacrococcygeal pressure ulceration is noted. It extends through the cutaneous layers and into the subcutaneous tissues. Bone and fascia are not visible. The base of the ulcer demonstrates pink, healthy granulation tissue. There is evidence of peripheral epithelialization, suggesting successful healing progress. There is a moderate amount of bioburden and a small amount of nonviable tissue. Ulcer margins are not well beveled. There is no sign of infection or cellulitis. The periwound dermis is unremarkable. Dimensions are documented elsewhere. A long, well-healed, vertical midline incision is noted over the patient's lumbar spine. Neuro oriented x3 and CN's II-XII intact bilaterally Neuro Narrative: The patient is paraplegic. Sensorium / Orientation: awake, alert, oriented to person, oriented to place and oriented to time Speech: speech normal Psych cooperative and speech normal Appearance: grossly normal and appropriate Attitude: calm Activity / Motor Behavior: appropriate eye contact Speech: normal speech Mood & Affect: euthymic mood Attention / Concentration: attention grossly intact Debridement Note Debridement Note Wound debrided: Sacrococcygeal pressure ulceration Laterality: Not Applicable Wound Grade/Stage: Stage IV Type of Debridement: Excisional debridement Anesthesia Used: 5% Lidocaine Gel and Cetacaine Depth: Down to and including healthy tissue and in the subcutaneous layer Percentage of wound debrided: 100 Instrument Used: 5mm curette Tissue Removed: subcutaneous tissue, senescent cells, devitalized tissue Severity: Fat Layer Exposed (muscle is exposed. bone is palpable but not exposed.) Amount of bleeding with debridement: Mild Bleeding Controlled with: Pressure and Compression and gauze Patient tolerated procedure: Patient tolerated procedure well Post-Debridement Measurements and Additional Note: Post-Debridement Measurements/Treatment - Nurse 1 - General Ulcer Assessment Start: 10/23/24 13:09 Freq: Status: Active Protocol: TAISHA Activity Type Activity Date Activity User E-sign Co-sign Detail Recorded Client Recorded Date Recorded By Document 10/23/24 13:09 [facility] [id number] 10/23/24 13:15 BM Document 11/06/24 13:37 [id number] 11/06/24 13:39 10/23/24 11/06/24 13:09 13:37 WC - Today's Visit Information Type of service Follow-up Visit Follow-up Visit (Physician/COUTURIERE (Physician/COUTURIERE ) ) Arrival Mode Wheelchair Wheelchair Transfer Assistance Other Manual Transfer Assist (Other) stand by Patient Identification Verified (Name & Yes Yes ) Patient Requires Transmission-Based No Precautions Vital Signs Temperature (97.8 F-99.1 F) 96.1 F L Temperature Source Temporal Pulse Rate (60-100) 82 76 Pulse Location Monitor Monitor Respiratory Rate (12-18) 16 18 Respiratory rate source Observation Observation Oxygen Delivery Method Room Air Room Air Blood Pressure (90/60-120/80) 111/67 132/71 H Blood Pressure Mean 81 91 Source Monitor Monitor Position Sitting Sitting Blood Pressure Location Left Arm Left Arm History Since Last Visit- (Skip if this is Patient's initial visit) Have you changed medications since your No No last visit? Any new allergies or adverse reactions No No Had a fall/change in ADL's that may No No increase risk of falls Signs or symptoms of abuse and/or No No neglect since last visit Have you been in the hospital since your No No last visit? Has dressing in place as prescribed Yes Yes Has compression in place as prescribed N/A N/A Has offloadiing in place as prescribed N/A N/A Experienced any changes in pain level or No No management Left Footwear Slipper Right Footwear Slipper Pain Scale: 0-10 Numeric Is Patient Pain Free? Yes Yes - Nurse 1 - General Ulcer Measurement Start: 10/23/24 13:09 Freq: Status: Active Protocol: Activity Type Activity Date Activity User E-sign Co-sign Detail Recorded Client Recorded Date Recorded By Document 10/23/24 13:09 [facility] [id number] 10/23/24 13:15 BMF Document 11/06/24 13:37 GM [id number] 11/06/24 13:39 GM 10/23/24 11/06/24 13:09 13:37 Wound Center Nurse 1 #14- L SACRAL POST OP -Combined with other wound No -Current Size (cm) - Length 3.3 4.0 -Current Size (cm) - Width 1 1.0 -Current Size (cm) - Depth 0.1 1.0 -Total Square Cm 3.3 4.00 -Date of Last Picture (Recall this 10/23/24 field) -Photo Taken Yes No -Epithelialization Small 1-33% Large 67-100% -Tunneling No No -Undermining/Tunneling No No -Circular Undermining No No -Exudate Amt Medium Small -Exudate Type Serosanguineous Serous -Wound Margin Thickened Distinct, Outline Attached -Granulation Amt Large (67-100%) Medium (34-66%) -Granulation Quality Red Red -Slough/Fibrin Yes No -Necrosis Amt Small (1-33%) -Necrotic Tissue Type Adherent Slough -Texture (Vivi-wound Skin Appearance) Assessed, Assessed Scarring -Moisture (Vivi-wound Skin Appearance) Assessed, Assessed Maceration -Color (Vivi-wound Skin Appearance) Assessed Assessed -Temperature (Vivi-wound Skin No Abnormality No Abnormality Appearance) (Pt Warm) (Pt Warm) -Tenderness on Palpation (Vivi-wound No No Skin Appearance) -Ulcer Cleansing Rinsed/ Rinsed/ Irrigated with Irrigated with Saline Saline -Foul Odor after Cleansing No No -Anesthetic Used 5% Lidocaine 4% Lidocaine Gel Solution WC - Nurse 2 - General Ulcer CM Notes Start: 10/23/24 13:09 Freq: Status: Active Protocol: Activity Type Activity Date Activity User E-sign Co-sign Detail Recorded Client Recorded Date Recorded By Document 10/23/24 13:34 [facility] [id number] 10/23/24 13:40 [facility] Document 11/06/24 14:03 DS [id number] 11/06/24 14:05 DS 10/23/24 11/06/24 13:34 14:03 Wound Center Nurse 2 #14- L SACRAL POST OP -Time 13:34 14:03 -Correct Patient Yes Yes -Correct Side, Site, Position Yes Yes -Correct Procedure Yes Yes -Procedure Performed Yes Yes -Type of Procedure Debridement Debridement -Clinical Debridement Subcutaneous Subcutaneous -Tissue Removed Subcutaneous Subcutaneous -Post Debridement (cm) - Length 4 4.5 -Post Debridement (cm) - Width 1 1.0 -Post Debridement (cm) - Depth 0.1 0.1 -Total Square (Post) (cm) 4 4.50 -Area of Debridement (cm) - Length 4 4.5 -Area of Debridement (cm) - Width 1 1.0 -Total Square (Area) (cm) 4 4.50 -Tunneling No No -Undermining/Tunneling No No -Circular Undermining No No -Wound/Ulcer Outcome Not Healed Not Healed -Ulcer Cleansing Rinsed/ Rinsed/ Irrigated with Irrigated with Saline Saline -Foul Odor after Cleansing No No -Bioengineered Tissue No No -Bleeding Controlled with Pressure Pressure -Treatment Response Procedure Procedure Tolerated Well Tolerated Well -Debridement - Subq, 1st 20sq cm Yes Yes Pain Scale: 0-10 Numeric Is Patient Pain Free? Yes Yes - Nurse 3 - General Ulcer D/C NN Start: 10/23/24 13:09 Freq: Status: Active Protocol: Activity Type Activity Date Activity User E-sign Co-sign Detail Recorded Client Recorded Date Recorded By Document 10/23/24 13:48 [facility] [id number] 10/23/24 13:48 [facility] Document 11/06/24 14:15 [facility] [id number] 11/06/24 14:16 [facility] 10/23/24 11/06/24 13:48 14:15 Wound Care Center Nurse 3 #14- L SACRAL POST OP -Ulcer Cleansing Rinsed/ Rinsed/ Irrigated with Irrigated with Saline Saline -Foul Odor after Cleansing No No -Primary Dressing Applied Promogran Promogran Lyudmila Matter, Lyudmila Matter, Silicone Border Silicone Border Foam 4x4 Foam 4x4 -Promogran Lyudmila Matter 1 1 -Silicone Border Foam 4x4 1 1 Treatment Response Procedure Procedure Tolerated Well Tolerated Well Pain Scale: 0-10 Numeric Is Patient Pain Free? Yes Yes - Visit Discharge Discharge Condition Stable Stable Ambulatory Status Wheelchair Wheelchair Accompanied by spike in lobby Facility Type Home Health Charges/Coding Multi Select Codes Visit Charges Office Visit/Consults: 95074 OV L3 Est 20min Integumentary Integumentary CPT Codes: 43871 Shila subq tissue 20 sq cm/< Assessment/Plan Assessment/Plan (1) Pressure injury of sacral region, stage 4: CODE(S): L89.154 - Pressure ulcer of sacral region, stage 4 (2) Osteomyelitis of sacrum: CODE(S): M46.28 - Osteomyelitis of vertebra, sacral and sacrococcygeal region (3) Diabetes mellitus: CODE(S): E11.9 - Type 2 diabetes mellitus without complications QUALIFIERS: Diabetes mellitus type: type 2 Diabetes mellitus complication status: with skin complications (4) Tobacco use disorder: CODE(S): F17.200 - Nicotine dependence, unspecified, uncomplicated (5) Paraplegia: CODE(S): G82.20 - Paraplegia, unspecified (6) Smoker: CODE(S): F17.200 - Nicotine dependence, unspecified, uncomplicated (7) History of cholecystectomy: CODE(S): Z98.890 - Other specified postprocedural states; Z90.49 - Acquired absence of other specified parts of digestive tract (8) H/O gastric bypass: CODE(S): Z98.84 - Bariatric surgery status (9) Diabetes mellitus type 2, controlled: CODE(S): E11.9 - Type 2 diabetes mellitus without complications (10) COPD (chronic obstructive pulmonary disease): CODE(S): J44.9 - Chronic obstructive pulmonary disease, unspecified QUALIFIERS: COPD type: unspecified COPD Qualified Code(s): J44.9 - Chronic obstructive pulmonary disease, unspecified (11) GERD without esophagitis: CODE(S): K21.9 - Gastro-esophageal reflux disease without esophagitis (12) Tobacco abuse counseling: CODE(S): Z71.6 - Tobacco abuse counseling (13) History of methicillin resistant staphylococcus aureus (MRSA): CODE(S): Z86.14 - Personal history of Methicillin resistant Staphylococcus aureus infection (14) S/P laminectomy with spinal fusion: CODE(S): Z98.1 - Arthrodesis status (15) Paraplegia: CODE(S): G82.20 - Paraplegia, unspecified PLAN: Plan This is a 64-year-old female paraplegic who has had a history of multiple lumbar spine surgeries in the past. She is currently undergoing management at our facility relative to a chronic pressure ulceration in the sacrococcygeal area. Offloading measures are to be continued. These have been discussed with the patient in detail. She lives with her daughter, who assist the patient in daily care. The patient is known to be a smoker, smoking approximately 3/4 pack/day. She has been strongly urged to discontinue her smoking habit. She has been advised that smoking may play a role in delayed wound healing. Nutritional optimization has been recommended. The patient has previously undergone consultation with a dietitian, and received dietary recommendations. She has been urged to optimize her glycemic control. We are to continue the use of moistened Lyudmila and Rolla SAP applied topically to the wound on a daily basis. The patient is return in 2 weeks for reevaluation. Total time: 25 minutes
[2024-11-20 13:33] VITALS: BP 90/67; PULSE 74; RESP 16; TEMP 36.4
--- NOTE | 2024-11-22 12:52 | HP.PCM_ITS ---
History of Present Illness Date of Service: 11/20/24 Chief Complaint: Sacral pressure ulcer History of Wound: This is a 64 year old female who had back surgery in early September 2022 at [facility] and then went to rehab at [place] after that. She had a aurelia replaced in her back. Before her surgery, she was not able to lie flat due to increased pain, so she spent most of her time in her wheelchair. Now since her surgery, she is in too much back pain to sit in her wheelchair. She presented with an ulcer to her sacrum. She was in the ED on 12/10/22 for increased wound drainage and was treated with Keflex. She does have home health to assist with dressing changes. Wound culture 12/26/22 positive for Proteus mirabilis, Enterococcus faecalis, Streptococcus agalactiae, Anaerobic cocci and Bacteroides fragilis. She was treated with Augmentin. Wound culture from 01/23/23 was positive for MRSA and Morganella morganii. The MRSA was treated with Doxycycline. Wound culture 04/03/23 positive for Proteus mirabilis, Enterococcus faecalis, and Anaerobic cocci. She was treated with Augmentin. Wound culture from 07/03/23 positive for Proteus mirabilis and Enterococcus faecalis which was treated with Augmentin. Wound culture was done on 08/23/23. It was negative. She had CT Pelvis on 09/20/23. It showed evidence of tissue defect in the medial aspect of the right buttock abutting the distal sacrum. This most likely represents an ulcerated pressure ulcer. Normal urinary bladder. Normal visualized small intestine. Moderate amount of fecal material is seen in the colon. There is no pelvic fluid. There is no pelvic mass lesion or lymphadenopathy. There is diffuse atherosclerotic calcification of the pelvic arteries. Phleboliths are seen in the pelvis. Normal abdominal wall. Extensive metallic streak artifacts due to fusion with intrapedicular screw and aurelia fixation the lower lumbar spine. Surgery 01/01/24 - Excision sacral pressure sore, Stage IV, with partial ostectomy for osteomyelitis. The procedure was performed by Dr. Costa Hodge. Pathology of sacral bone consistent with chronic osteomyelitis. Soft tissue and skin of sacral region showed ulceration with associated acute and chronic inflammation and granulation. Operative bone culture from 01/01/24 positive for Staphylococcus haemolyticus. She was treated for 6 weeks for positive bone cultures. Operative tissue culture from 01/01/24 positive for Corynebacterium striatum, Strep anginosus, Prevotella disiens, and Anaerobic cocci. She was treated with Doxycycline and Augmentin. [facility] Medical History Diabetes mellitus type 2, controlled GERD without esophagitis COPD (chronic obstructive pulmonary disease) Tobacco abuse counseling History of methicillin resistant staphylococcus aureus (MRSA) Wears glasses Post-menopausal Depression Marijuana use Neuropathy Thyroid disease Arthritis Back pain Gastric reflux Smoker Paraplegia History of stress test Personal history of Methicillin resistant Staphylococcus aureus infection Diabetes mellitus Pressure injury of sacral region, stage 4 Weight loss Positive colorectal cancer screening using Cologuard test Witnessed seizure-like activity Ulcer of left lower leg Ulcer of right lower extremity with fat layer exposed Ulcer of left lower extremity with fat layer exposed Toxic encephalopathy Wound, open, abdominal wall, anterior Current tobacco use Chest pain, unspecified Bone lesion Intractable low back pain Major depressive disorder Chronic cluster headache, not intractable Age-related osteoporosis without current pathological fracture Primary generalized (osteo)arthritis Other intervertebral disc degeneration, lumbar region Hypothyroidism Anemia Muscle weakness Spinal stenosis, lumbar region without neurogenic claudication Neuromuscular scoliosis Chronic low back pain Paraplegia Morbid obesity HTN (hypertension) HLD (hyperlipidemia) Home Medications ?Medication ?Instructions ?Recorded ?Last Taken ?Type unjwdsfzgufn-xfqinkqi-gwdmow 1 tab PO DAILY supplement 02/26/18 12/31/23 History tablet (Cerovite Senior) pantoprazole 40 mg tablet,delayed 40 mg PO BID PRN sto mach 09/17/20 12/31/23 History release acetaminophen 500 mg tablet 500 mg PO Q6H PRN Pain 1-1 0 Or 10/08/20 12/31/23 History Fever albuterol sulfate 90 mcg/actuation 2 puff inhalation Q 4H PRN PRN Sob 10/08/20 Unknown History aerosol inhaler &/Or Wheezing betamethasone valerate 0.1 % 1 applic topical BID PRN skin 01/15/21 12/31/23 Rx topical cream irritation #15 grams cetirizine 10 mg tablet 10 mg PO DAILY #30 tabs 12/2312/31/23 Rx hydrocolloid dressing 4 X 4 #5 ea 09/07/21 Unknown R x (DuoDERM CGF Adhesive Border Dressing) biotin 1 mg tablet 1 mg PO DAILY SUPPLEMENT 12/31/23 History calcium citrate 250 mg PO DAILY SUPPLEMENT 1 12/31/23 History cholecalciferol (vitamin D3) 25 25 mcg PO DAILY SUPPLE MENT 05/17/22 12/31/23 H istory mcg (1,000 unit) capsule cyanocobalamin (vitamin B-12) 1,000 mcg PO DAILY SUPPL EMENT 05/17/22 12/31/23 History 1,000 mcg tablet ferrous sulfate 325 mg (65 mg 325 mg PO DAILY SUPPLEME NT 05/17/22 12/31/23 History iron) tablet mupirocin 2 % topical ointment 1 applic topical DAILY PRN Wound 05/17/22 12/31/23 History Care gabapentin 300 mg capsule 300 mg PO BID 30 days #60 ca ps 05/19/22 01/01/24 Rx dextran 70-hypromellose 0.1 %-0.3 1 drp ophthalmic (ey e) TID PRN dry 05/25/22 12/31/23 History % eye drops (Artificial Tears eye(s) (dextran 70-hypromellose)) ipratropium 20 mcg-albuterol 100 1 puff inhalation Q6H PRN copd 05/25/22 01/01/24 History mcg/actuation mist for inhalation (Combivent Respimat) nystatin 100,000 unit/gram topical 1 applic topical BI D 10 days #30 07/08/22 12/31/23 Rx powder grams sennosides 8.6 mg tablet (Senna 8.6 mg PO .QOD STOOL 0 08/25/22 12/31/23 History Lax) lorazepam 0.5 mg tablet 0.5 mg PO BID PRN Anxiety 01/01/24 History methadone 5 mg tablet 10 mg PO BID 12/01/22 History naloxone 4 mg/actuation nasal 1 spray intranasal Q2M P RN opioid 12/01/22 Unknown History spray (Narcan) overdose oxycodone-acetaminophen 10 mg-325 1 tab PO Q3H PRN Cynthia n 12/01/22 01/01/24 History mg tablet (Percocet) scopolamine base 1 mg over 3 days 1 patch transdermal Q3D PRN nausea 05/16/23 Unknown Rx transdermal patch and vomiting #10 ea lidocaine 5 % topical ointment 1 applic topical TID [place] N pain #30 07/12/23 12/31/23 Rx grams levothyroxine 175 mcg tablet 175 mcg PO DAILY disorder of 12/26/23 12/31/23 History thyroid gland magnesium glycinate 100 mg (as 200 mg PO BID 12/26/23 12/31/23 History glycinate) tablet doxycycline hyclate 100 mg tablet 100 mg PO BID 14 day s #28 tabs 01/02/24 Unknown Rx amoxicillin 875 mg-potassium 1 tab PO Q12H 14 days #28 tabs 01/24/24 Unknown Rx clavulanate 125 mg tablet valacyclovir 500 mg tablet 500 mg PO DAILY Check with primary 02/06/24 Unknown Rx (Valtrex) doctor #30 tabs amoxicillin 875 mg-potassium 1 tab PO BID 7 days #14 t abs 08/28/24 Unknown Rx clavulanate 125 mg tablet cefuroxime axetil 500 mg tablet 500 mg PO BID 09/11/24 Unknown History Allergy/AdvReac Type Severity Reaction Status Date / Time NSAIDS (Non-Steroidal Allergy GASTRIC Verified 08/28/24 14:03 Anti-Inflamma BYPASS ondansetron (From Zofran) AdvReac Other Verified 08/28/24 14:03 trazodone AdvReac Other Verified 08/28/24 14:03 Family History Father Diabetes Hypertension Myocardial infarction Alcoholism Brother Myocardial infarction Alcoholism Mother CVA (cerebral vascular accident) Surgical History S/P laminectomy with spinal fusion H/O dilation and curettage History of bilateral salpingo-oophorectomy S/P arthroscopic knee surgery s/p nerve spine surgery S/P lumbar spine operation s/p upper back surgery skin graft Hydradenitis History of cholecystectomy H/O gastric bypass Social History Smoking Status: Current every day smoker tobacco type: cigarettes alcohol intake: never substance use type: does not use caffeine: Yes what type of physical activity do you participate in: none seatbelt use: always do you feel safe at home: Yes additional social history: Vital Signs Vital Signs Vital Signs: Weight Weight: 149 lb 14.629 oz Physical Exam Const alert, oriented x3, no apparent distress, average body habitus and well nourished Constitutional Narrative: The patient's BMI is 24.2. The patient is paraplegic. General Appearance: cooperative and comfortable Orientation / Consciousness: awake, oriented to person, oriented to place and oriented to time Exam Limitations: physical limitations HEENT normocephalic and head/scalp atraumatic Head and Scalp: normal to inspection, normocephalic and atraumatic Face and Sinus: normal facial exam Nose: external nose normal External Ear: external ears normal Eyes EOMs intact bilaterally General Eye: normal appearance of both eyes Resp normal respiratory effort, normal air movement, no retractions and no use of accessory muscles Effort and Inspection: able to speak in complete sentences Extremity General Extremity: Negative for clubbing or cyanosis Skin Wound Narrative: A stage IV sacrococcygeal pressure ulceration is noted. It extends through the cutaneous layers and into the subcutaneous tissues. Bone and fascia are not visible. The base of the ulcer demonstrates pink, healthy granulation tissue. There is evidence of peripheral epithelialization, suggesting progressive healing. There is a moderate amount of bioburden and a small amount of nonviable tissue. Ulcer margins are not well beveled, with a small area of undermining noted superiorly. There is no sign of infection or cellulitis. The periwound dermis is unremarkable. Dimensions are documented elsewhere. A long, well-healed, vertical midline incision is noted over the patient's lumbar spine. Neuro oriented x3 and CN's II-XII intact bilaterally Neuro Narrative: The patient is paraplegic. Sensorium / Orientation: awake, alert, oriented to person, oriented to place and oriented to time Speech: speech normal Psych cooperative and speech normal Appearance: grossly normal and appropriate Attitude: calm Activity / Motor Behavior: appropriate eye contact Speech: normal speech Mood & Affect: euthymic mood Attention / Concentration: attention grossly intact Debridement Note Debridement Note Wound debrided: Sacrococcygeal pressure ulceration Laterality: Not Applicable Wound Grade/Stage: Stage IV Type of Debridement: Excisional debridement Anesthesia Used: 5% Lidocaine Gel and Cetacaine Depth: Down to and including healthy tissue, in the subcutaneous layer and to muscle Percentage of wound debrided: 100 Instrument Used: 5mm curette Tissue Removed: Bioburden and nonviable tissue Severity: Necrosis of Muscle (muscle is exposed. bone is palpable but not expos ed.) Amount of bleeding with debridement: Mild Bleeding Controlled with: Compression and gauze Patient tolerated procedure: Patient tolerated procedure well Post-Debridement Measurements and Additional Note: Post-Debridement Measurements/Treatment WC - Nurse 1 - General Ulcer Assessment Start: 10/23/24 13:09 Freq: Status: Active Protocol: TAISHA Activity Type Activity Date Activity User E-sign Co-sign Detail Recorded Client Recorded Date Recorded By Document 10/23/24 13:09 [facility] [id number] 10/23/24 13:15 [facility] Document 11/06/24 13:37 [id number] 11/06/24 13:39 10/23/24 11/06/24 13:09 13:37 WC - Today's Visit Information Type of service Follow-up Visit Follow-up Visit (Physician/ENGINEER SERGEANT (Physician/ENGINEER SERGEANT ) ) Arrival Mode Wheelchair Wheelchair Transfer Assistance Other Manual Transfer Assist (Other) stand by Patient Identification Verified (Name & Yes Yes ) Patient Requires Transmission-Based No Precautions Vital Signs Temperature (97.8 F-99.1 F) 96.1 F L Temperature Source Temporal Pulse Rate (60-100) 82 76 Pulse Location Monitor Monitor Respiratory Rate (12-18) 16 18 Respiratory rate source Observation Observation Oxygen Delivery Method Room Air Room Air Blood Pressure (90/60-120/80) 111/67 132/71 H Blood Pressure Mean 81 91 Source Monitor Monitor Position Sitting Sitting Blood Pressure Location Left Arm Left Arm History Since Last Visit- (Skip if this is Patient's initial visit) Have you changed medications since your No No last visit? Any new allergies or adverse reactions No No Had a fall/change in ADL's that may No No increase risk of falls Signs or symptoms of abuse and/or No No neglect since last visit Have you been in the hospital since your No No last visit? Has dressing in place as prescribed Yes Yes Has compression in place as prescribed N/A N/A Has offloadiing in place as prescribed N/A N/A Experienced any changes in pain level or No No management Left Footwear Slipper Right Footwear Slipper Pain Scale: 0-10 Numeric Is Patient Pain Free? Yes Yes SCOTTY Cartwright Nurse 1 - General Ulcer Measurement Start: 10/23/24 13:09 Freq: Status: Active Protocol: Activity Type Activity Date Activity User E-sign Co-sign Detail Recorded Client Recorded Date Recorded By Document 10/23/24 13:09 [facility] [id number] 10/23/24 13:15 [facility] Document 11/06/24 13:37 GM [id number] 11/06/24 13:39 GM 10/23/24 11/06/24 13:09 13:37 Wound Center Nurse 1 #14- L SACRAL POST OP -Combined with other wound No -Current Size (cm) - Length 3.3 4.0 -Current Size (cm) - Width 1 1.0 -Current Size (cm) - Depth 0.1 1.0 -Total Square Cm 3.3 4.00 -Date of Last Picture (Recall this 10/23/24 field) -Photo Taken Yes No -Epithelialization Small 1-33% Large 67-100% -Tunneling No No -Undermining/Tunneling No No -Circular Undermining No No -Exudate Amt Medium Small -Exudate Type Serosanguineous Serous -Wound Margin Thickened Distinct, Outline Attached -Granulation Amt Large (67-100%) Medium (34-66%) -Granulation Quality Red Red -Slough/Fibrin Yes No -Necrosis Amt Small (1-33%) -Necrotic Tissue Type Adherent Slough -Texture (Vivi-wound Skin Appearance) Assessed, Assessed Scarring -Moisture (Vivi-wound Skin Appearance) Assessed, Assessed Maceration -Color (Vivi-wound Skin Appearance) Assessed Assessed -Temperature (Vivi-wound Skin No Abnormality No Abnormality Appearance) (Pt Warm) (Pt Warm) -Tenderness on Palpation (Vivi-wound No No Skin Appearance) -Ulcer Cleansing Rinsed/ Rinsed/ Irrigated with Irrigated with Saline Saline -Foul Odor after Cleansing No No -Anesthetic Used 5% Lidocaine 4% Lidocaine Gel Solution WC - Nurse 2 - General Ulcer CM Notes Start: 10/23/24 13:09 Freq: Status: Active Protocol: Activity Type Activity Date Activity User E-sign Co-sign Detail Recorded Client Recorded Date Recorded By Document 10/23/24 13:34 [facility] [id number] 10/23/24 13:40 [facility] Document 11/06/24 14:03 DS [id number] 11/06/24 14:05 DS 10/23/24 11/06/24 13:34 14:03 Wound Center Nurse 2 #14- L SACRAL POST OP -Time 13:34 14:03 -Correct Patient Yes Yes -Correct Side, Site, Position Yes Yes -Correct Procedure Yes Yes -Procedure Performed Yes Yes -Type of Procedure Debridement Debridement -Clinical Debridement Subcutaneous Subcutaneous -Tissue Removed Subcutaneous Subcutaneous -Post Debridement (cm) - Length 4 4.5 -Post Debridement (cm) - Width 1 1.0 -Post Debridement (cm) - Depth 0.1 0.1 -Total Square (Post) (cm) 4 4.50 -Area of Debridement (cm) - Length 4 4.5 -Area of Debridement (cm) - Width 1 1.0 -Total Square (Area) (cm) 4 4.50 -Tunneling No No -Undermining/Tunneling No No -Circular Undermining No No -Wound/Ulcer Outcome Not Healed Not Healed -Ulcer Cleansing Rinsed/ Rinsed/ Irrigated with Irrigated with Saline Saline -Foul Odor after Cleansing No No -Bioengineered Tissue No No -Bleeding Controlled with Pressure Pressure -Treatment Response Procedure Procedure Tolerated Well Tolerated Well -Debridement - Subq, 1st 20sq cm Yes Yes Pain Scale: 0-10 Numeric Is Patient Pain Free? Yes Yes - Nurse 3 - General Ulcer D/C NN Start: 10/23/24 13:09 Freq: Status: Active Protocol: Activity Type Activity Date Activity User E-sign Co-sign Detail Recorded Client Recorded Date Recorded By Document 10/23/24 13:48 [facility] [id number] 10/23/24 13:48 [facility] Document 11/06/24 14:15 [facility] [id number] 11/06/24 14:16 [facility] 10/23/24 11/06/24 13:48 14:15 Wound Care Center Nurse 3 #14- L SACRAL POST OP -Ulcer Cleansing Rinsed/ Rinsed/ Irrigated with Irrigated with Saline Saline -Foul Odor after Cleansing No No -Primary Dressing Applied Promogran Promogran Lyudmila Matter, Lyudmila Matter, Silicone Border Silicone Border Foam 4x4 Foam 4x4 -Promogran Lyudmila Matter 1 1 -Silicone Border Foam 4x4 1 1 Treatment Response Procedure Procedure Tolerated Well Tolerated Well Pain Scale: 0-10 Numeric Is Patient Pain Free? Yes Yes - Visit Discharge Discharge Condition Stable Stable Ambulatory Status Wheelchair Wheelchair Accompanied by spike in lobby Facility Type Home Health Charges/Coding Procedures Integumentary [id number]: [id number] Shila musc/fascia 20 sq cm/< Assessment/Plan Assessment/Plan (1) Pressure injury of sacral region, stage 4: CODE(S): L89.154 - Pressure ulcer of sacral region, stage 4 (2) Osteomyelitis of sacrum: CODE(S): M46.28 - Osteomyelitis of vertebra, sacral and sacrococcygeal region (3) Diabetes mellitus: CODE(S): E11.9 - Type 2 diabetes mellitus without complications QUALIFIERS: Diabetes mellitus type: type 2 Diabetes mellitus complication status: with skin complications (4) Tobacco use disorder: CODE(S): F17.200 - Nicotine dependence, unspecified, uncomplicated (5) Paraplegia: CODE(S): G82.20 - Paraplegia, unspecified (6) Smoker: CODE(S): F17.200 - Nicotine dependence, unspecified, uncomplicated (7) History of cholecystectomy: CODE(S): Z98.890 - Other specified postprocedural states; Z90.49 - Acquired absence of other specified parts of digestive tract (8) H/O gastric bypass: CODE(S): Z98.84 - Bariatric surgery status (9) Diabetes mellitus type 2, controlled: CODE(S): E11.9 - Type 2 diabetes mellitus without complications (10) COPD (chronic obstructive pulmonary disease): CODE(S): J44.9 - Chronic obstructive pulmonary disease, unspecified QUALIFIERS: COPD type: unspecified COPD Qualified Code(s): J44.9 - Chronic obstructive pulmonary disease, unspecified (11) GERD without esophagitis: CODE(S): K21.9 - Gastro-esophageal reflux disease without esophagitis (12) Tobacco abuse counseling: CODE(S): Z71.6 - Tobacco abuse counseling (13) History of methicillin resistant staphylococcus aureus (MRSA): CODE(S): Z86.14 - Personal history of Methicillin resistant Staphylococcus aureus infection (14) S/P laminectomy with spinal fusion: CODE(S): Z98.1 - Arthrodesis status (15) Paraplegia: CODE(S): G82.20 - Paraplegia, unspecified PLAN: Plan This is a 64-year-old female paraplegic who has had a history of multiple lumbar spine surgeries in the past. She is currently undergoing management at our facility relative to a chronic pressure ulceration in the sacrococcygeal area. Offloading measures are to be continued. These have been discussed with the patient in detail. She lives with her daughter, who assists the patient in daily care. The patient is known to be a smoker, smoking approximately 3/4 pack/day. She has been strongly urged to discontinue her smoking habit. She has been advised that smoking may play a role in delayed wound healing. Nutritional optimization has been recommended. The patient has previously undergone consultation with a dietitian, and received dietary recommendations. She has been urged to optimize her glycemic control. We are to continue the use of moistened Lyudmila and Normangee SAP applied topically to the wound on a daily basis. The patient and her daughter have been instructed in the appropriate means of application. There is evidence of peripheral epithelialization, signifying improvement in the status of the wound. There is also a small area of undermining superiorly, which may prove to be problematic in the future, and will be monitored serially. The patient is return in 2 weeks for reevaluation. Total time: 26 minutes
== END 2024-11-20 23:59 | disposition home or self-care (01) ==
LOC: WC 13:00
PROVIDERS: PCP Internal Medicine; Referring Provider Nurse Practitioner Family; Visit Provider Surgery
DX: L89.154 Pressure ulcer of sacral region, stage 4 (principal); G82.20 Paraplegia, unspecified; M46.28 Osteomyelitis of vertebra, sacral and sacrococcygeal region; J44.9 Chronic obstructive pulmonary disease, unspecified; E11.69 Type 2 diabetes mellitus with other specified complication; E11.40 Type 2 diabetes mellitus with diabetic neuropathy, unspecified; K21.9 Gastro-esophageal reflux disease without esophagitis; G89.29 Other chronic pain; I10 Essential (primary) hypertension; E78.5 Hyperlipidemia, unspecified; Z79.890 Hormone replacement therapy; Z86.14 Personal history of Methicillin resistant Staphylococcus aureus infection; F17.210 Nicotine dependence, cigarettes, uncomplicated; Z98.1 Arthrodesis status
CPT/HCPCS: 11042; 11043; 97803

== ENCOUNTER 2024-12-18 13:15 | Outpatient (RCR) | payer MEDICARE, MEDICAID, SELFPAY ==
[2024-11-21 00:34] VITALS: BP 90/67; PULSE 74; RESP 16; TEMP 36.4
[2024-12-04 13:45] VITALS: BP 118/86; PULSE 94; RESP 18; TEMP 36.2
--- NOTE | 2024-12-05 12:46 | HP.PCM_ITS ---
History of Present Illness Date of Service: 12/04/24 Chief Complaint: Sacral pressure ulcer History of Wound: This is a 64 year old female who had back surgery in early September 2022 at [facility] and then went to rehab at [facility] after that. She had a aurelia replaced in her back. Before her surgery, she was not able to lie flat due to increased pain, so she spent most of her time in her wheelchair. Now since her surgery, she is in too much back pain to sit in her wheelchair. She presented with an ulcer to her sacrum. She was in the ED on 12/10/22 for increased wound drainage and was treated with Keflex. She does have home health to assist with dressing changes. Wound culture 12/26/22 positive for Proteus mirabilis, Enterococcus faecalis, Streptococcus agalactiae, Anaerobic cocci and Bacteroides fragilis. She was treated with Augmentin. Wound culture from 01/23/23 was positive for MRSA and Morganella morganii. The MRSA was treated with Doxycycline. Wound culture 04/03/23 positive for Proteus mirabilis, Enterococcus faecalis, and Anaerobic cocci. She was treated with Augmentin. Wound culture from 07/03/23 positive for Proteus mirabilis and Enterococcus faecalis which was treated with Augmentin. Wound culture was done on 08/23/23. It was negative. She had CT Pelvis on 09/20/23. It showed evidence of tissue defect in the medial aspect of the right buttock abutting the distal sacrum. This most likely represents an ulcerated pressure ulcer. Normal urinary bladder. Normal visualized small intestine. Moderate amount of fecal material is seen in the colon. There is no pelvic fluid. There is no pelvic mass lesion or lymphadenopathy. There is diffuse atherosclerotic calcification of the pelvic arteries. Phleboliths are seen in the pelvis. Normal abdominal wall. Extensive metallic streak artifacts due to fusion with intrapedicular screw and aurelia fixation the lower lumbar spine. Surgery 01/01/24 - Excision sacral pressure sore, Stage IV, with partial ostectomy for osteomyelitis. The procedure was performed by Dr. Costa Hodge. Pathology of sacral bone consistent with chronic osteomyelitis. Soft tissue and skin of sacral region showed ulceration with associated acute and chronic inflammation and granulation. Operative bone culture from 01/01/24 positive for Staphylococcus haemolyticus. She was treated for 6 weeks for positive bone cultures. Operative tissue culture from 01/01/24 positive for Corynebacterium striatum, Strep anginosus, Prevotella disiens, and Anaerobic cocci. She was treated with Doxycycline and Augmentin. [facility] Medical History (Updated 12/05/24 @ 12:[address] Deandre Diehl MD) Pressure injury of sacral region, stage 3 Diabetes mellitus type 2, controlled GERD without esophagitis COPD (chronic obstructive pulmonary disease) Tobacco abuse counseling History of methicillin resistant staphylococcus aureus (MRSA) Wears glasses Post-menopausal Depression Marijuana use Neuropathy Thyroid disease Arthritis Back pain Gastric reflux Smoker Paraplegia History of stress test Personal history of Methicillin resistant Staphylococcus aureus infection Diabetes mellitus Pressure injury of sacral region, stage 4 Weight loss Positive colorectal cancer screening using Cologuard test Witnessed seizure-like activity Ulcer of left lower leg Ulcer of right lower extremity with fat layer exposed Ulcer of left lower extremity with fat layer exposed Toxic encephalopathy Wound, open, abdominal wall, anterior Current tobacco use Chest pain, unspecified Bone lesion Intractable low back pain Major depressive disorder Chronic cluster headache, not intractable Age-related osteoporosis without current pathological fracture Primary generalized (osteo)arthritis Other intervertebral disc degeneration, lumbar region Hypothyroidism Anemia Muscle weakness Spinal stenosis, lumbar region without neurogenic claudication Neuromuscular scoliosis Chronic low back pain Paraplegia Morbid obesity HTN (hypertension) HLD (hyperlipidemia) Home Medications ?Medication ?Instructions ?Recorded ?Last Taken ?Type gagmjaedvwrh-fnpznrwh-kyyjtw 1 tab PO DAILY supplement 02/26/18 12/31/23 History tablet (Cerovite Senior) pantoprazole 40 mg tablet,delayed 40 mg PO BID PRN sto mach 09/17/20 12/31/23 History release acetaminophen 500 mg tablet 500 mg PO Q6H PRN Pain 1-1 0 Or 10/08/20 12/31/23 History Fever albuterol sulfate 90 mcg/actuation 2 puff inhalation Q 4H PRN PRN Sob 10/08/20 Unknown History aerosol inhaler &/Or Wheezing betamethasone valerate 0.1 % 1 applic topical BID PRN skin 01/15/21 12/31/23 Rx topical cream irritation #15 grams cetirizine 10 mg tablet 10 mg PO DAILY #30 tabs 12/2312/31/23 Rx hydrocolloid dressing 4 X 4 #5 ea 09/07/21 Unknown R x (DuoDERM CGF Adhesive Border Dressing) biotin 1 mg tablet 1 mg PO DAILY SUPPLEMENT 12/31/23 History calcium citrate 250 mg PO DAILY SUPPLEMENT 1 12/31/23 History cholecalciferol (vitamin D3) 25 25 mcg PO DAILY SUPPLE MENT 05/17/22 12/31/23 History mcg (1,000 unit) capsule cyanocobalamin (vitamin B-12) 1,000 mcg PO DAILY SUPPL EMENT 05/17/22 12/31/23 History 1,000 mcg tablet ferrous sulfate 325 mg (65 mg 325 mg PO DAILY SUPPLEME NT 05/17/22 12/31/23 History iron) tablet mupirocin 2 % topical ointment 1 applic topical DAILY PRN Wound 05/17/22 12/31/23 History Care gabapentin 300 mg capsule 300 mg PO BID 30 days #60 ca ps 05/19/22 01/01/24 Rx dextran 70-hypromellose 0.1 %-0.3 1 drp ophthalmic (ey e) TID PRN dry 05/25/22 12/31/23 History % eye drops (Artificial Tears eye(s) (dextran 70-hypromellose)) ipratropium 20 mcg-albuterol 100 1 puff inhalation Q6H PRN copd 05/25/22 01/01/24 History mcg/actuation mist for inhalation (Combivent Respimat) nystatin 100,000 unit/gram topical 1 applic topical BI D 10 days #30 07/08/22 12/31/23 Rx powder grams sennosides 8.6 mg tablet (Senna 8.6 mg PO .QOD STOOL 0 08/25/22 12/31/23 History Lax) lorazepam 0.5 mg tablet 0.5 mg PO BID PRN Anxiety 01/01/24 History methadone 5 mg tablet 10 mg PO BID 12/01/22 History naloxone 4 mg/actuation nasal 1 spray intranasal Q2M P RN opioid 12/01/22 Unknown History spray (Narcan) overdose oxycodone-acetaminophen 10 mg-325 1 tab PO Q3H PRN Cynthia n 12/01/22 01/01/24 History mg tablet (Percocet) scopolamine base 1 mg over 3 days 1 patch transdermal Q3D PRN nausea 05/16/23 Unknown Rx transdermal patch and vomiting #10 ea lidocaine 5 % topical ointment 1 applic topical TID FL N pain #30 07/12/23 12/31/23 Rx grams levothyroxine 175 mcg tablet 175 mcg PO DAILY disorder of 12/26/23 12/31/23 History thyroid gland magnesium glycinate 100 mg (as 200 mg PO BID 12/26/23 12/31/23 History glycinate) tablet doxycycline hyclate 100 mg tablet 100 mg PO BID 14 day s #28 tabs 01/02/24 Unknown Rx amoxicillin 875 mg-potassium 1 tab PO Q12H 14 days #28 tabs 01/24/24 Unknown Rx clavulanate 125 mg tablet valacyclovir 500 mg tablet 500 mg PO DAILY Check with primary 02/06/24 Unknown Rx (Valtrex) doctor #30 tabs amoxicillin 875 mg-potassium 1 tab PO BID 7 days #14 t abs 08/28/24 Unknown Rx clavulanate 125 mg tablet cefuroxime axetil 500 mg tablet 500 mg PO BID 09/11/24 Unknown History Allergy/AdvReac Type Severity Reaction Status Date / Time NSAIDS (Non-Steroidal Allergy GASTRIC Verified 08/28/24 14:03 Anti-Inflamma BYPASS ondansetron (From Zofran) AdvReac Other Verified 08/28/24 14:03 trazodone AdvReac Other Verified 08/28/24 14:03 Family History Father Diabetes Hypertension Myocardial infarction Alcoholism Brother Myocardial infarction Alcoholism Mother CVA (cerebral vascular accident) Surgical History S/P laminectomy with spinal fusion H/O dilation and curettage History of bilateral salpingo-oophorectomy S/P arthroscopic knee surgery s/p nerve spine surgery S/P lumbar spine operation s/p upper back surgery skin graft Hydradenitis History of cholecystectomy H/O gastric bypass Social History Smoking Status: Current every day smoker tobacco type: cigarettes alcohol intake: never substance use type: does not use caffeine: Yes what type of physical activity do you participate in: none seatbelt use: always do you feel safe at home: Yes additional social history: Vital Signs Vital Signs Vital Signs: 12/04/24 13:45 Temperature 97.2 F L Temperature Source Temporal Pulse Rate 94 Respiratory Rate 18 Blood Pressure 118/86 H Blood Pressure Mean 96 Blood Pressure Source Monitor Weight Weight: 149 lb 14.629 oz Physical Exam Const alert, oriented x3, no apparent distress, average body habitus and well nourished Constitutional Narrative: The patient's BMI is 24.2. The patient is paraplegic. General Appearance: cooperative and comfortable Orientation / Consciousness: awake, oriented to person, oriented to place and oriented to time Exam Limitations: physical limitations HEENT normocephalic and head/scalp atraumatic Head and Scalp: normal to inspection, normocephalic and atraumatic Face and Sinus: normal facial exam Nose: external nose normal External Ear: external ears normal Eyes EOMs intact bilaterally General Eye: normal appearance of both eyes Resp normal respiratory effort, normal air movement, no retractions and no use of accessory muscles Effort and Inspection: able to speak in complete sentences Extremity General Extremity: Negative for clubbing or cyanosis Skin Wound Narrative: A stage III sacrococcygeal pressure ulceration is noted. It extends through the cutaneous layers and into the subcutaneous tissues. Bone and fascia are not visible. The base of the ulcer demonstrates pink, healthy granulation tissue. There is evidence of increasing areas of peripheral epithelialization, suggesting progressive healing. There is a moderate amount of bioburden and a small amount of nonviable tissue. Ulcer margins are not well beveled, with a small area of undermining noted superiorly. There is no sign of infection or cellulitis. The periwound dermis is unremarkable. Dimensions are documented elsewhere. A long, well-healed, vertical midline incision is noted over the patient's lumbar spine. Neuro oriented x3 and CN's II-XII intact bilaterally Neuro Narrative: The patient is paraplegic. Sensorium / Orientation: awake, alert, oriented to person, oriented to place and oriented to time Speech: speech normal Psych cooperative and speech normal Appearance: grossly normal and appropriate Attitude: calm Activity / Motor Behavior: appropriate eye contact Speech: normal speech Mood & Affect: euthymic mood Attention / Concentration: attention grossly intact Debridement Note Debridement Note Wound debrided: Sacrococcygeal pressure ulceration Laterality: Not Applicable Wound Grade/Stage: Stage III Type of Debridement: Excisional debridement Anesthesia Used: 5% Lidocaine Gel and Cetacaine Depth: Down to and including healthy tissue, in the subcutaneous layer and to muscle Percentage of wound debrided: 100 Instrument Used: 5mm curette Tissue Removed: Bioburden and nonviable tissue Severity: Fat Layer Exposed (muscle is exposed. bone is palpable but not exposed.) Amount of bleeding with debridement: Mild Bleeding Controlled with: Compression and gauze Patient tolerated procedure: Patient tolerated procedure well Post-Debridement Measurements and Additional Note: Post-Debridement Measurements/Treatment SCOTTY - Nurse 1 - General Ulcer Assessment Start: 12/04/24 13:43 Freq: Status: Active Protocol: TAISHA Activity Type Activity Date Activity User E-sign Co-sign Detail Recorded Client Recorded Date Recorded By Document 12/04/24 13:45 DL [id number] 12/04/24 13:51 DL 12/04/24 13:45 - Today's Visit Information Type of service Follow-up Visit (Physician/CHIE[employer] ) Arrival Mode Wheelchair Transfer Assistance Manual,None Transfer Assist (Other) x1 Patient Identification Verified (Name & Yes ) Patient Requires Transmission-Based No Precautions Vital Signs Temperature (97.8 F-99.1 F) 97.2 F L Temperature Source Temporal Pulse Rate (60-100) 94 Pulse Location Monitor Respiratory Rate (12-18) 18 Respiratory rate source Observation Blood Pressure (90/60-120/80) 118/86 H Blood Pressure Mean 96 Source Monitor History Since Last Visit- (Skip if this is Patient's initial visit) Have you changed medications since your No last visit? Any new allergies or adverse reactions No Had a fall/change in ADL's that may No increase risk of falls Signs or symptoms of abuse and/or No neglect since last visit Have you been in the hospital since your No last visit? Has dressing in place as prescribed Yes Has compression in place as prescribed Yes Has offloadiing in place as prescribed Yes Experienced any changes in pain level or No management Pain Scale: 0-10 Numeric Is Patient Pain Free? Yes - Nurse 1 - General Ulcer Measurement Start: 12/04/24 13:43 Freq: Status: Active Protocol: Activity Type Activity Date Activity User E-sign Co-sign Detail Recorded Client Recorded Date Recorded By Document 12/04/24 13:45 DL [id number] 12/04/24 13:51 DL 12/04/24 13:45 Wound Center Nurse 1 #14- L SACRAL POST OP -Current Size (cm) - Length 4 -Current Size (cm) - Width 1 -Current Size (cm) - Depth 0.1 -Total Square Cm 4 -Exudate Amt Medium -Exudate Type Serosanguineous -Wound Margin Thickened & Rolled Under -Granulation Amt Large (67-100%) -Granulation Quality Esperance -Necrosis Amt Small (1-33%) -Necrotic Tissue Type Adherent Slough -Structure Exposed N/A -Texture (Vivi-wound Skin Appearance) Scarring -Moisture (Vivi-wound Skin Appearance) No Abnormality -Color (Vivi-wound Skin Appearance) No Abnormality -Temperature (Vivi-wound Skin No Abnormality Appearance) (Pt Warm) -Ulcer Cleansing Rinsed/ Irrigated with Saline -Foul Odor after Cleansing No -Anesthetic Used 5% Lidocaine Gel SCOTTY - Nurse 2 - General Ulcer CM Notes Start: 12/04/24 13:43 Freq: Status: Active Protocol: Activity Type Activity Date Activity User E-sign Co-sign Detail Recorded Client Recorded Date Recorded By Document 12/04/24 14:04 [id number] 12/04/24 14:08 12/04/24 14:04 Wound Center Nurse 2 -Time 14:04 -Correct Patient Yes -Correct Side, Site, Position Yes -Correct Procedure Yes -Procedure Performed Yes -Type of Procedure Debridement -Clinical Debridement Subcutaneous -Tissue Removed Subcutaneous -Post Debridement (cm) - Length 3.5 -Post Debridement (cm) - Width 1.2 -Post Debridement (cm) - Depth 0.1 -Total Square (Post) (cm) 4.20 -Area of Debridement (cm) - Length 3.5 -Area of Debridement (cm) - Width 1.2 -Total Square (Area) (cm) 4.20 -Tunneling No -Undermining/Tunneling No -Circular Undermining No -Wound/Ulcer Outcome Not Healed -Ulcer Cleansing Rinsed/ Irrigated with Saline -Foul Odor after Cleansing No -Bioengineered Tissue No -Bleeding Controlled with Pressure -Treatment Response Procedure Tolerated Well -Offloading No -Debridement - Subq, 1st 20sq cm Yes Pain Scale: 0-10 Numeric Is Patient Pain Free? Yes SCOTTY - Nurse 3 - General Ulcer D/C NN Start: 12/04/24 13:43 Freq: Status: Active Protocol: Activity Type Activity Date Activity User E-sign Co-sign Detail Recorded Client Recorded Date Recorded By Document 12/04/24 14:27 ML [id number] 12/04/24 14:29 ML 12/04/24 14:27 Wound Care Center Nurse 3 #14- L SACRAL POST OP -Ulcer Cleansing Rinsed/ Irrigated with Saline -Primary Dressing Applied Promogran Lyudmila Matter, Silicone Border Foam 4x4 -Promogran Lyudmila Matter 1 -Silicone Border Foam 4x4 1 Pain Scale: 0-10 Numeric Is Patient Pain Free? Yes Charges/Coding Procedures Integumentary [id number]: [id number] Shila subq tissue 20 sq cm/< Assessment/Plan Assessment/Plan (1) Pressure injury of sacral region, stage 3: CODE(S): L89.153 - Pressure ulcer of sacral region, stage 3 (2) Osteomyelitis of sacrum: CODE(S): M46.28 - Osteomyelitis of vertebra, sacral and sacrococcygeal region (3) Diabetes mellitus: CODE(S): E11.9 - Type 2 diabetes mellitus without complications QUALIFIERS: Diabetes mellitus type: type 2 Diabetes mellitus complication status: with skin complications (4) Tobacco use disorder: CODE(S): F17.200 - Nicotine dependence, unspecified, uncomplicated (5) Paraplegia: CODE(S): G82.20 - Paraplegia, unspecified (6) Smoker: CODE(S): F17.200 - Nicotine dependence, unspecified, uncomplicated (7) History of cholecystectomy: CODE(S): Z98.890 - Other specified postprocedural states; Z90.49 - Acquired absence of other specified parts of digestive tract (8) H/O gastric bypass: CODE(S): Z98.84 - Bariatric surgery status (9) Diabetes mellitus type 2, controlled: CODE(S): E11.9 - Type 2 diabetes mellitus without complications (10) COPD (chronic obstructive pulmonary disease): CODE(S): J44.9 - Chronic obstructive pulmonary disease, unspecified QUALIFIERS: COPD type: unspecified COPD Qualified Code(s): J44.9 - Chronic obstructive pulmonary disease, unspecified (11) GERD without esophagitis: CODE(S): K21.9 - Gastro-esophageal reflux disease without esophagitis (12) Tobacco abuse counseling: CODE(S): Z71.6 - Tobacco abuse counseling (13) History of methicillin resistant staphylococcus aureus (MRSA): CODE(S): Z86.14 - Personal history of Methicillin resistant Staphylococcus aureus infection (14) S/P laminectomy with spinal fusion: CODE(S): Z98.1 - Arthrodesis status (15) Paraplegia: CODE(S): G82.20 - Paraplegia, unspecified PLAN: Plan This is a 64-year-old female paraplegic who has had a history of multiple lumbar spine surgeries in the past. She is currently undergoing management at our facility relative to a chronic pressure ulceration in the sacrococcygeal area. Offloading measures are to be continued. These have been discussed with the patient in detail. She lives with her daughter, who assists the patient in daily care. The patient is known to be a smoker, smoking approximately 3/4 pack/day. She has been strongly urged to discontinue her smoking habit. She has been advised that smoking may play a role in delayed wound healing. Nutritional optimization has been recommended. The patient has previously undergone consultation with a dietitian, and received dietary recommendations. She has been urged to optimize her glycemic control, and she claims to be well- controlled. We are to continue the use of moistened Lyudmila and [place] SAP applied topically to the wound on a daily basis. The patient and her daughter have been instructed in the appropriate means of application. There is evidence of peripheral epithelialization, signifying improvement in the status of the wound. There is also a small area of undermining superiorly, which may prove to be problematic in the future, and will be monitored serially. The patient is return in 2 weeks for reevaluation. Total time: 25 minutes
[2024-12-18 13:18] VITALS: BP 153/92; PULSE 78; RESP 18; TEMP 36.2
--- NOTE | 2024-12-21 11:30 | HP.PCM_ITS ---
History of Present Illness Date of Service: 12/18/24 Chief Complaint: Sacral pressure ulcer History of Wound: This is a 64 year old female who had back surgery in early September 2022 at [facility] and then went to rehab at [facility] after that. She had a aurelia replaced in her back. Before her surgery, she was not able to lie flat due to increased pain, so she spent most of her time in her wheelchair. Since her surgery, the pain has limited her ability to sit in her wheelchair. She presented with an ulcer to her sacrum. She was in the ED on 12/10/22 for increased wound drainage and was treated with Keflex. She does have home health to assist with dressing changes. Wound culture 12/26/22 positive for Proteus mirabilis, Enterococcus faecalis, Streptococcus agalactiae, Anaerobic cocci and Bacteroides fragilis. She was treated with Augmentin. Wound culture from 01/23/23 was positive for MRSA and Morganella morganii. The MRSA was treated with Doxycycline. Wound culture 04/03/23 positive for Proteus mirabilis, Enterococcus faecalis, and Anaerobic cocci. She was treated with Augmentin. Wound culture from 07/03/23 positive for Proteus mirabilis and Enterococcus faecalis which was treated with Augmentin. Wound culture was done on 08/23/23. It was negative. She had CT Pelvis on 09/20/23. It showed evidence of tissue defect in the medial aspect of the right buttock abutting the distal sacrum. This most likely represents an ulcerated pressure ulcer. Normal urinary bladder. Normal visualized small intestine. Moderate amount of fecal material is seen in the colon. There is no pelvic fluid. There is no pelvic mass lesion or lymphadenopathy. There is diffuse atherosclerotic calcification of the pelvic arteries. Phleboliths are seen in the pelvis. Normal abdominal wall. Extensive metallic streak artifacts due to fusion with intrapedicular screw and aurelia fixation the lower lumbar spine. Surgery 01/01/24 - Excision sacral pressure sore, Stage IV, with partial ostectomy for osteomyelitis. The procedure was performed by Dr. Costa Hodge. Pathology of sacral bone consistent with chronic osteomyelitis. Soft tissue and skin of sacral region showed ulceration with associated acute and chronic inflammation and granulation. Operative bone culture from 01/01/24 positive for Staphylococcus haemolyticus. She was treated for 6 weeks for positive bone cultures. Operative tissue culture from 01/01/24 positive for Corynebacterium striatum, Strep anginosus, Prevotella disiens, and Anaerobic cocci. She was treated with Doxycycline and Augmentin. [facility] Medical History Pressure injury of sacral region, stage 3 Diabetes mellitus type 2, controlled GERD without esophagitis COPD (chronic obstructive pulmonary disease) Tobacco abuse counseling History of methicillin resistant staphylococcus aureus (MRSA) Wears glasses Post-menopausal Depression Marijuana use Neuropathy Thyroid disease Arthritis Back pain Gastric reflux Smoker Paraplegia History of stress test Personal history of Methicillin resistant Staphylococcus aureus infection Diabetes mellitus Pressure injury of sacral region, stage 4 Weight loss Positive colorectal cancer screening using Cologuard test Witnessed seizure-like activity Ulcer of left lower leg Ulcer of right lower extremity with fat layer exposed Ulcer of left lower extremity with fat layer exposed Toxic encephalopathy Wound, open, abdominal wall, anterior Current tobacco use Chest pain, unspecified Bone lesion Intractable low back pain Major depressive disorder Chronic cluster headache, not intractable Age-related osteoporosis without current pathological fracture Primary generalized (osteo)arthritis Other intervertebral disc degeneration, lumbar region Hypothyroidism Anemia Muscle weakness Spinal stenosis, lumbar region without neurogenic claudication Neuromuscular scoliosis Chronic low back pain Paraplegia Morbid obesity HTN (hypertension) HLD (hyperlipidemia) Home Medications ?Medication ?Instructions ?Recorded ?Last Taken ?Type [id number] 1 tab PO DAILY supplement 02/26/18 12/31/23 History tablet (Cerovite Senior) pantoprazole 40 mg tablet,delayed 40 mg PO BID PRN sto mach 09/17/20 12/31/23 History release acetaminophen 500 mg tablet 500 mg PO Q6H PRN Pain 1-1 0 Or 10/08/20 12/31/23 History Fever albuterol sulfate 90 mcg/actuation 2 puff inhalation Q 4H PRN PRN Sob 10/08/20 Unknown History aerosol inhaler &/Or Wheezing betamethasone valerate 0.1 % 1 applic topical BID PRN skin 01/15/21 12/31/23 Rx topical cream irritation #15 grams cetirizine 10 mg tablet 10 mg PO DAILY #30 tabs 12/2312/31/23 Rx hydrocolloid dressing 4 X 4 #5 ea 09/07/21 Unknown R x (DuoDERM CGF Adhesive Border Dressing) biotin 1 mg tablet 1 mg PO DAILY SUPPLEMENT 12/31/23 History calcium citrate 250 mg PO DAILY SUPPLEMENT 1 12/31/23 History cholecalciferol (vitamin D3) 25 25 mcg PO DAILY SUPPLE MENT 05/17/22 12/31/23 History mcg (1,000 unit) capsule cyanocobalamin (vitamin B-12) 1,000 mcg PO DAILY SUPPL EMENT 05/17/22 12/31/23 History 1,000 mcg tablet ferrous sulfate 325 mg (65 mg 325 mg PO DAILY SUPPLEME NT 05/17/22 12/31/23 History iron) tablet mupirocin 2 % topical ointment 1 applic topical DAILY PRN Wound 05/17/22 12/31/23 History Care gabapentin 300 mg capsule 300 mg PO BID 30 days #60 ca ps 05/19/22 01/01/24 Rx dextran 70-hypromellose 0.1 %-0.3 1 drp ophthalmic (ey e) TID PRN dry 05/25/22 12/31/23 History % eye drops (Artificial Tears eye(s) (dextran 70-hypromellose)) ipratropium 20 mcg-albuterol 100 1 puff inhalation Q6H PRN copd 05/25/22 01/01/24 History mcg/actuation mist for inhalation (Combivent Respimat) nystatin 100,000 unit/gram topical 1 applic topical BI D 10 days #30 07/08/22 12/31/23 Rx powder grams sennosides 8.6 mg tablet (Senna 8.6 mg PO .QOD STOOL 0 08/25/22 12/31/23 History Lax) lorazepam 0.5 mg tablet 0.5 mg PO BID PRN Anxiety 01/01/24 History methadone 5 mg tablet 10 mg PO BID 12/01/22 History naloxone 4 mg/actuation nasal 1 spray intranasal Q2M P RN opioid 12/01/22 Unknown History spray (Narcan) overdose oxycodone-acetaminophen 10 mg-325 1 tab PO Q3H PRN Cynthia n 12/01/22 01/01/24 History mg tablet (Percocet) scopolamine base 1 mg over 3 days 1 patch transdermal Q3D PRN nausea 05/16/23 Unknown Rx transdermal patch and vomiting #10 ea lidocaine 5 % topical ointment 1 applic topical TID LA N pain #30 07/12/23 12/31/23 Rx grams levothyroxine 175 mcg tablet 175 mcg PO DAILY disorder of 12/26/23 12/31/23 History thyroid gland magnesium glycinate 100 mg (as 200 mg PO BID 12/26/23 12/31/23 History glycinate) tablet doxycycline hyclate 100 mg tablet 100 mg PO BID 14 day s #28 tabs 01/02/24 Unknown Rx amoxicillin 875 mg-potassium 1 tab PO Q12H 14 days #28 tabs 01/24/24 Unknown Rx clavulanate 125 mg tablet valacyclovir 500 mg tablet 500 mg PO DAILY Check with primary 02/06/24 Unknown Rx (Valtrex) doctor #30 tabs amoxicillin 875 mg-potassium 1 tab PO BID 7 days #14 t abs 08/28/24 Unknown Rx clavulanate 125 mg tablet cefuroxime axetil 500 mg tablet 500 mg PO BID 09/11/24 Unknown History Allergy/AdvReac Type Severity Reaction Status Date / Time NSAIDS (Non-Steroidal Allergy GASTRIC Verified 08/28/24 14:03 Anti-Inflamma BYPASS ondansetron (From Zofran) AdvReac Other Verified 08/28/24 14:03 trazodone AdvReac Other Verified 08/28/24 14:03 Family History Father Diabetes Hypertension Myocardial infarction Alcoholism Brother Myocardial infarction Alcoholism Mother CVA (cerebral vascular accident) Surgical History S/P laminectomy with spinal fusion H/O dilation and curettage History of bilateral salpingo-oophorectomy S/P arthroscopic knee surgery s/p nerve spine surgery S/P lumbar spine operation s/p upper back surgery skin graft Hydradenitis History of cholecystectomy H/O gastric bypass Social History Smoking Status: Current every day smoker tobacco type: cigarettes alcohol intake: never substance use type: does not use caffeine: Yes what type of physical activity do you participate in: none seatbelt use: always do you feel safe at home: Yes additional social history: Vital Signs Vital Signs Vital Signs: Weight Weight: 149 lb 14.629 oz Physical Exam Const alert, oriented x3, no apparent distress, average body habitus and well nourished Constitutional Narrative: The patient's BMI is 24.2. The patient is paraplegic. General Appearance: cooperative and comfortable Orientation / Consciousness: awake, oriented to person, oriented to place and oriented to time Exam Limitations: physical limitations HEENT normocephalic and head/scalp atraumatic Head and Scalp: normal to inspection, normocephalic and atraumatic Face and Sinus: normal facial exam Nose: external nose normal External Ear: external ears normal Eyes EOMs intact bilaterally General Eye: normal appearance of both eyes Resp normal respiratory effort, normal air movement, no retractions and no use of accessory muscles Effort and Inspection: able to speak in complete sentences Extremity General Extremity: Negative for clubbing or cyanosis Skin Wound Narrative: A stage III sacrococcygeal pressure ulceration is noted. It extends through the cutaneous layers and into the subcutaneous tissues. Bone and fascia are not visible. The base of the ulcer demonstrates pink, healthy granulation tissue. There is evidence of increasing areas of peripheral epithelialization, suggesting progressive healing. This is most notable on the right side of the ulceration. The ulceration appears to be decreasing in size. There is a small amount of bioburden and a small amount of nonviable tissue. Ulcer margins are not well beveled, with a small area of undermining noted superiorly. There is no sign of infection or cellulitis. The periwound dermis is unremarkable. Dimensions are documented elsewhere. A long, well-healed, vertical midline incision is noted over the patient's lumbar spine. Neuro oriented x3 and CN's II-XII intact bilaterally Neuro Narrative: The patient is paraplegic. Sensorium / Orientation: awake, alert, oriented to person, oriented to place and oriented to time Speech: speech normal Psych cooperative and speech normal Appearance: grossly normal and appropriate Attitude: calm Activity / Motor Behavior: appropriate eye contact Speech: normal speech Mood & Affect: euthymic mood Attention / Concentration: attention grossly intact Debridement Note Debridement Note Wound debrided: Sacrococcygeal pressure ulceration Laterality: Not Applicable Wound Grade/Stage: Stage III Type of Debridement: Excisional debridement Anesthesia Used: 5% Lidocaine Gel and Cetacaine Depth: Down to and including healthy tissue, in the subcutaneous layer and to muscle Percentage of wound debrided: 100 Instrument Used: 5mm curette Tissue Removed: Bioburden and nonviable tissue Severity: Fat Layer Exposed (muscle is exposed. bone is palpable but not exposed.) Amount of bleeding with debridement: Mild Bleeding Controlled with: Compression and gauze Patient tolerated procedure: Patient tolerated procedure well Post-Debridement Measurements and Additional Note: Post-Debridement Measurements/Treatment WC - Nurse 1 - General Ulcer Assessment Start: 12/04/24 13:43 Freq: Status: Active Protocol: TAISHA Activity Type Activity Date Activity User E-sign Co-sign Detail Recorded Client Recorded Date Recorded By Document 12/04/24 13:45 DL [id number] 12/04/24 13:51 DL Document 12/18/24 13:18 DL [id number] 12/18/24 13:28 DL 12/04/24 12/18/24 13:45 13:18 WC - Today's Visit Information Type of service Follow-up Visit Follow-up Visit (Physician/BOBBIN WINDER TENDER (Physician/BOBBIN WINDER TENDER ) ) Arrival Mode Wheelchair Wheelchair Transfer Assistance Manual,None Manual Transfer Assist (Other) x1 x1 Patient Identification Verified (Name & Yes Yes ) Patient Requires Transmission-Based No No Precautions Vital Signs Temperature (97.8 F-99.1 F) 97.2 F L 97.1 F L Temperature Source Temporal Temporal Pulse Rate (60-100) 94 78 Pulse Location Monitor Monitor Respiratory Rate (12-18) 18 18 Respiratory rate source Observation Observation Blood Pressure (90/60-120/80) 118/86 H 153/92 H Blood Pressure Mean 96 112 Source Monitor Monitor History Since Last Visit- (Skip if this is Patient's initial visit) Have you changed medications since your No No last visit? Any new allergies or adverse reactions No No Had a fall/change in ADL's that may No No increase risk of falls Signs or symptoms of abuse and/or No No neglect since last visit Have you been in the hospital since your No No last visit? Has dressing in place as prescribed Yes Yes Has compression in place as prescribed Yes N/A Has offloadiing in place as prescribed Yes Yes Experienced any changes in pain level or No No management Pain Scale: 0-10 Numeric Is Patient Pain Free? Yes Yes SCOTTY Cartwright Nurse 1 - General Ulcer Measurement Start: 12/04/24 13:43 Freq: Status: Active Protocol: Activity Type Activity Date Activity User E-sign Co-sign Detail Recorded Client Recorded Date Recorded By Document 12/04/24 13:45 DL [id number] 12/04/24 13:51 DL Document 12/18/24 13:18 [id number] 12/18/24 13:28 DL 12/04/24 12/18/24 13:45 13:18 Wound Center Nurse 1 #14- L SACRAL POST OP -Current Size (cm) - Length 4 3.8 -Current Size (cm) - Width 1 0.8 -Current Size (cm) - Depth 0.1 0.1 -Total Square Cm 4 3.04 -Photo Taken Yes -Exudate Amt Medium Medium -Exudate Type Serosanguineous -Wound Margin Thickened & Thickened & Rolled Under Rolled Under -Granulation Amt Large (67-100%) Large (67-100%) -Granulation Quality [place],Red -Necrosis Amt Small (1-33%) None Present (0 %) -Necrotic Tissue Type Adherent Slough -Structure Exposed N/A N/A -Texture (Vivi-wound Skin Appearance) Scarring Scarring -Moisture (Vivi-wound Skin Appearance) No Abnormality Maceration -Color (Vivi-wound Skin Appearance) No Abnormality No Abnormality -Temperature (Vivi-wound Skin No Abnormality No Abnormality Appearance) (Pt Warm) (Pt Warm) -Tenderness on Palpation (Vivi-wound No Skin Appearance) -Ulcer Cleansing Rinsed/ Soap and Water Irrigated with Saline -Foul Odor after Cleansing No No -Anesthetic Used 5% Lidocaine 5% Lidocaine Gel Gel WC - Nurse 2 - General Ulcer CM Notes Start: 12/04/24 13:43 Freq: Status: Active Protocol: Activity Type Activity Date Activity User E-sign Co-sign Detail Recorded Client Recorded Date Recorded By Document 12/04/24 14:04 [id number] 12/04/24 14:08 Document 12/18/24 13:40 DS [id number] 12/18/24 13:41 DS 12/04/24 12/18/24 14:04 13:40 Wound Center Nurse 2 #14- L SACRAL POST OP -Time 14:04 13:40 -Correct Patient Yes Yes -Correct Side, Site, Position Yes Yes -Correct Procedure Yes Yes -Procedure Performed Yes Yes -Type of Procedure Debridement Debridement -Clinical Debridement Subcutaneous Subcutaneous -Tissue Removed Subcutaneous Subcutaneous -Post Debridement (cm) - Length 3.5 3.7 -Post Debridement (cm) - Width 1.2 1.0 -Post Debridement (cm) - Depth 0.1 0.1 -Total Square (Post) (cm) 4.20 3.70 -Area of Debridement (cm) - Length 3.5 3.7 -Area of Debridement (cm) - Width 1.2 1.0 -Total Square (Area) (cm) 4.20 3.70 -Tunneling No No -Undermining/Tunneling No No -Circular Undermining No No -Wound/Ulcer Outcome Not Healed Not Healed -Ulcer Cleansing Rinsed/ Rinsed/ Irrigated with Irrigated with Saline Saline -Foul Odor after Cleansing No No -Bioengineered Tissue No No -Bleeding Controlled with Pressure Pressure -Treatment Response Procedure Procedure Tolerated Well Tolerated Well -Offloading No -Debridement - Subq, 1st 20sq cm Yes Yes Pain Scale: 0-10 Numeric Is Patient Pain Free? Yes Yes - Nurse 3 - General Ulcer D/C NN Start: 12/04/24 13:43 Freq: Status: Active Protocol: Activity Type Activity Date Activity User E-sign Co-sign Detail Recorded Client Recorded Date Recorded By Document 12/04/24 14:27 ML [id number] 12/04/24 14:29 ML Document 12/18/24 13:48 DS [id number] 12/18/24 13:51 DS 12/04/24 12/18/24 14:27 13:48 Wound Care Center Nurse 3 #14- L SACRAL POST OP -Ulcer Cleansing Rinsed/ Irrigated with Saline -Primary Dressing Applied Promogran Promogran Lyudmila Matter, Lyudmila Matter, Silicone Border Silicone Border Foam 4x4 Foam 6x6 -Promogran Lyudmila Matter 1 1 -Silicone Border Foam 4x4 1 -Silicone Border Foam 6x6 1 Pain Scale: 0-10 Numeric Is Patient Pain Free? Yes Yes WC - Visit Discharge Discharge Condition Stable Ambulatory Status Wheelchair Charges/Coding Procedures Integumentary [id number]: [id number] Shila subq tissue 20 sq cm/< Assessment/Plan Assessment/Plan (1) Pressure injury of sacral region, stage 3: CODE(S): L89.153 - Pressure ulcer of sacral region, stage 3 (2) Osteomyelitis of sacrum: CODE(S): M46.28 - Osteomyelitis of vertebra, sacral and sacrococcygeal region (3) Diabetes mellitus: CODE(S): E11.9 - Type 2 diabetes mellitus without complications QUALIFIERS: Diabetes mellitus type: type 2 Diabetes mellitus complication status: with skin complications (4) Tobacco use disorder: CODE(S): F17.200 - Nicotine dependence, unspecified, uncomplicated (5) Paraplegia: CODE(S): G82.20 - Paraplegia, unspecified (6) Smoker: CODE(S): F17.200 - Nicotine dependence, unspecified, uncomplicated (7) History of cholecystectomy: CODE(S): Z98.890 - Other specified postprocedural states; Z90.49 - Acquired absence of other specified parts of digestive tract (8) H/O gastric bypass: CODE(S): Z98.84 - Bariatric surgery status (9) Diabetes mellitus type 2, controlled: CODE(S): E11.9 - Type 2 diabetes mellitus without complications (10) COPD (chronic obstructive pulmonary disease): CODE(S): J44.9 - Chronic obstructive pulmonary disease, unspecified QUALIFIERS: COPD type: unspecified COPD Qualified Code(s): J44.9 - Chronic obstructive pulmonary disease, unspecified (11) GERD without esophagitis: CODE(S): K21.9 - Gastro-esophageal reflux disease without esophagitis (12) Tobacco abuse counseling: CODE(S): Z71.6 - Tobacco abuse counseling (13) History of methicillin resistant staphylococcus aureus (MRSA): CODE(S): Z86.14 - Personal history of Methicillin resistant Staphylococcus aureus infection (14) S/P laminectomy with spinal fusion: CODE(S): Z98.1 - Arthrodesis status (15) Paraplegia: CODE(S): G82.20 - Paraplegia, unspecified PLAN: Plan This is a 64-year-old female paraplegic who has had a history of multiple lumbar spine surgeries in the past. She is currently undergoing management at our facility relative to a chronic pressure ulceration in the sacrococcygeal area. Offloading measures are to be continued. These have been discussed with the patient in detail. She lives with her daughter, who assists the patient in daily care. She also has home health nursing care and an independent aide. The patient is known to be a smoker, smoking approximately 3/4 pack/day. She has been strongly urged to discontinue her smoking habit. She has been advised that smoking may play a role in delayed wound healing. Nutritional optimization has been recommended. The patient has previously undergone consultation with a dietitian, and received dietary recommendations. She has been urged to optimize her glycemic control, and she claims to be well-controlled. We are to continue the use of moistened Lyudmila and [place] SAP applied topically to the wound on a daily basis. The patient and her daughter have been instructed in the appropriate means of application. There is evidence of peripheral epithelialization, signifying improvement in the status of the wound. There is also a small area of undermining superiorly, which may prove to be problematic in the future, and will be monitored serially. The patient is return in 2 weeks for reevaluation. Total time: 24 minutes
== END 2024-12-21 23:59 | disposition home or self-care (01) ==
LOC: WC 13:15
PROVIDERS: PCP Internal Medicine; Referring Provider Nurse Practitioner Family; Visit Provider Surgery
DX: L89.153 Pressure ulcer of sacral region, stage 3 (principal); G82.20 Paraplegia, unspecified; M46.28 Osteomyelitis of vertebra, sacral and sacrococcygeal region; J44.9 Chronic obstructive pulmonary disease, unspecified; E11.69 Type 2 diabetes mellitus with other specified complication; E11.40 Type 2 diabetes mellitus with diabetic neuropathy, unspecified; B95.62 Methicillin resistant Staphylococcus aureus infection as the cause of diseases classified elsewhere; K21.9 Gastro-esophageal reflux disease without esophagitis; I87.8 Other specified disorders of veins; E78.5 Hyperlipidemia, unspecified; F17.210 Nicotine dependence, cigarettes, uncomplicated; Z98.1 Arthrodesis status; I10 Essential (primary) hypertension; Z86.14 Personal history of Methicillin resistant Staphylococcus aureus infection; Z98.84 Bariatric surgery status; Z79.899 Other long term (current) drug therapy
CPT/HCPCS: 11042

== ENCOUNTER 2025-01-15 13:00 | Outpatient (RCR) | payer MEDICARE, MEDICAID, SELFPAY ==
[2024-12-22 00:37] VITALS: BP 153/92; PULSE 78; RESP 18; TEMP 36.2
[2025-01-01 13:10] VITALS: BP 109/82; PULSE 98; RESP 18; TEMP 36.6
--- NOTE | 2025-01-01 14:41 | WC ---
photo 01/01/25 SACRAL
--- NOTE | 2025-01-02 12:47 | PCM.WC.HP ---
History of Present Illness Date of Service: 01/01/25 Chief Complaint: Sacral pressure ulcer History of Wound: This is a 64 year old female who had back surgery in early September 2022 at [facility] and then went to rehab at [place] after that. She had a aurelia replaced in her back. Before her surgery, she was not able to lie flat due to increased pain, so she spent most of her time in her wheelchair. Since her surgery, the pain has limited her ability to sit in her wheelchair. She presented with an ulcer to her sacrum. She was in the ED on 12/10/22 for increased wound drainage and was treated with Keflex. She does have home health to assist with dressing changes. Wound culture 12/26/22 positive for Proteus mirabilis, Enterococcus faecalis, Streptococcus agalactiae, Anaerobic cocci and Bacteroides fragilis. She was treated with Augmentin. Wound culture from 01/23/23 was positive for MRSA and Morganella morganii. The MRSA was treated with Doxycycline. Wound culture 04/03/23 positive for Proteus mirabilis, Enterococcus faecalis, and Anaerobic cocci. She was treated with Augmentin. Wound culture from 07/03/23 positive for Proteus mirabilis and Enterococcus faecalis which was treated with Augmentin. Wound culture was done on 08/23/23. It was negative. She had CT Pelvis on 09/20/23. It showed evidence of tissue defect in the medial aspect of the right buttock abutting the distal sacrum. This most likely represents an ulcerated pressure ulcer. Normal urinary bladder. Normal visualized small intestine. Moderate amount of fecal material is seen in the colon. There is no pelvic fluid. There is no pelvic mass lesion or lymphadenopathy. There is diffuse atherosclerotic calcification of the pelvic arteries. Phleboliths are seen in the pelvis. Normal abdominal wall. Extensive metallic streak artifacts due to fusion with intrapedicular screw and aurelia fixation the lower lumbar spine. Surgery 01/01/24 - Excision sacral pressure sore, Stage IV, with partial ostectomy for osteomyelitis. The procedure was performed by Dr. Costa Hodge. Pathology of sacral bone consistent with chronic osteomyelitis. Soft tissue and skin of sacral region showed ulceration with associated acute and chronic inflammation and granulation. Operative bone culture from 01/01/24 positive for Staphylococcus haemolyticus. She was treated for 6 weeks for positive bone cultures. Operative tissue culture from 01/01/24 positive for Corynebacterium striatum, Strep anginosus, Prevotella disiens, and Anaerobic cocci. She was treated with Doxycycline and Augmentin. [facility]LY [facility] Medical History Pressure injury of sacral region, stage 3 Diabetes mellitus type 2, controlled GERD without esophagitis COPD (chronic obstructive pulmonary disease) Tobacco abuse counseling History of methicillin resistant staphylococcus aureus (MRSA) Wears glasses Post-menopausal Depression Marijuana use Neuropathy Thyroid disease Arthritis Back pain Gastric reflux Smoker Paraplegia History of stress test Personal history of Methicillin resistant Staphylococcus aureus infection Diabetes mellitus Pressure injury of sacral region, stage 4 Weight loss Positive colorectal cancer screening using Cologuard test Witnessed seizure-like activity Ulcer of left lower leg Ulcer of right lower extremity with fat layer exposed Ulcer of left lower extremity with fat layer exposed Toxic encephalopathy Wound, open, abdominal wall, anterior Current tobacco use Chest pain, unspecified Bone lesion Intractable low back pain Major depressive disorder Chronic cluster headache, not intractable Age-related osteoporosis without current pathological fracture Primary generalized (osteo)arthritis Other intervertebral disc degeneration, lumbar region Hypothyroidism Anemia Muscle weakness Spinal stenosis, lumbar region without neurogenic claudication Neuromuscular scoliosis Chronic low back pain Paraplegia Morbid obesity HTN (hypertension) HLD (hyperlipidemia) Home Medications ?Medication ?Instructions ?Recorded ?Last Taken ?Type wogktolvlbga-wtcwfeai-aouzhp 1 tab PO DAILY supplement 02/26/18 12/31/23 History tablet (Cerovite Senior) pantoprazole 40 mg tablet,delayed 40 mg PO BID PRN stomach 09/17/20 12/31/23 History release acetaminophen 500 mg tablet 500 mg PO Q6H PRN Pain 1-10 Or 10/08/20 12/31/23 History Fever albuterol sulfate 90 mcg/actuation 2 puff inhalation Q4H PRN PRN Sob 10/08/20 Unknown History aerosol inhaler &/Or Wheezing betamethasone valerate 0.1 % 1 applic topical BID PRN skin 01/15/21 12/31/23 Rx topical cream irritation #15 grams cetirizine 10 mg tablet 10 mg PO DAILY #30 tabs 01/15/21 12/31/23 Rx hydrocolloid dressing 4 X 4 #5 ea 09/07/21 Unknown Rx (DuoDERM CGF Adhesive Border Dressing) biotin 1 mg tablet 1 mg PO DAILY SUPPLEMENT 05/17/22 12/31/23 History calcium citrate 250 mg PO DAILY SUPPLEMENT 05/17/22 12/31/23 History cholecalciferol (vitamin D3) 25 25 mcg PO DAILY SUPPLEMENT 05/17/22 12/31/23 History mcg (1,000 unit) capsule cyanocobalamin (vitamin B-12) 1,000 mcg PO DAILY SUPPLEMENT 05/17/22 12/31/23 History 1,000 mcg tablet ferrous sulfate 325 mg (65 mg 325 mg PO DAILY SUPPLEMENT 05/17/22 12/31/23 History iron) tablet mupirocin 2 % topical ointment 1 applic topical DAILY PRN Wound 05/17/22 12/31/23 History Care gabapentin 300 mg capsule 300 mg PO BID 30 days #60 caps 05/19/22 01/01/24 Rx dextran 70-hypromellose 0.1 %-0.3 1 drp ophthalmic (eye) TID PRN dry 05/25/22 12/31/23 History % eye drops (Artificial Tears eye(s) (dextran 70-hypromellose)) ipratropium 20 mcg-albuterol 100 1 puff inhalation Q6H PRN copd 05/25/22 01/01/24 History mcg/actuation mist for inhalation (Combivent Respimat) nystatin 100,000 unit/gram topical 1 applic topical BID 10 days #30 07/08/22 12/31/23 Rx powder grams sennosides 8.6 mg tablet (Senna 8.6 mg PO .QOD STOOL 08/25/22 12/31/23 History Lax) lorazepam 0.5 mg tablet 0.5 mg PO BID PRN Anxiety 12/01/22 01/01/24 History methadone 5 mg tablet 10 mg PO BID 12/01/22 12/31/23 History naloxone 4 mg/actuation nasal 1 spray intranasal Q2M PRN opioid 12/01/22 Unknown History spray (Narcan) overdose oxycodone-acetaminophen 10 mg-325 1 tab PO Q3H PRN Pain 12/01/22 01/01/24 History mg tablet (Percocet) scopolamine base 1 mg over 3 days 1 patch transdermal Q3D PRN nausea 05/16/23 Unknown Rx transdermal patch and vomiting #10 ea lidocaine 5 % topical ointment 1 applic topical TID PRN pain #30 07/12/23 12/31/23 Rx grams levothyroxine 175 mcg tablet 175 mcg PO DAILY disorder of 12/26/23 12/31/23 History thyroid gland magnesium glycinate 100 mg (as 200 mg PO BID 12/26/23 12/31/23 History glycinate) tablet doxycycline hyclate 100 mg tablet 100 mg PO BID 14 days #28 tabs 01/02/24 Unknown Rx amoxicillin 875 mg-potassium 1 tab PO Q12H 14 days #28 tabs 01/24/24 Unknown Rx clavulanate 125 mg tablet valacyclovir 500 mg tablet 500 mg PO DAILY Check with primary 02/06/24 Unknown Rx (Valtrex) doctor #30 tabs amoxicillin 875 mg-potassium 1 tab PO BID 7 days #14 tabs 08/28/24 Unknown Rx clavulanate 125 mg tablet cefuroxime axetil 500 mg tablet 500 mg PO BID 09/11/24 Unknown History Allergy/AdvReac Type Severity Reaction Status Date / Time NSAIDS (Non-Steroidal Allergy GASTRIC Verified 08/28/24 14:03 Anti-Inflamma BYPASS ondansetron (From Zofran) AdvReac Other Verified 08/28/24 14:03 trazodone AdvReac Other Verified 08/28/24 14:03 Family History Father Diabetes Hypertension Myocardial infarction Alcoholism Brother Myocardial infarction Alcoholism Mother CVA (cerebral vascular accident) Surgical History S/P laminectomy with spinal fusion H/O dilation and curettage History of bilateral salpingo-oophorectomy S/P arthroscopic knee surgery s/p nerve spine surgery S/P lumbar spine operation s/p upper back surgery skin graft Hydradenitis History of cholecystectomy H/O gastric bypass Social History Smoking Status: Current every day smoker tobacco type: cigarettes alcohol intake: never substance use type: does not use caffeine: Yes what type of physical activity do you participate in: none seatbelt use: always do you feel safe at home: Yes additional social history: Vital Signs Vital Signs Vital Signs: 01/01/25 13:10 Temperature 97.8 F Temperature Source Temporal Pulse Rate 98 Respiratory Rate 18 Blood Pressure 109/82 H Blood Pressure Mean 91 Blood Pressure Source Monitor Weight Weight: 149 lb 14.629 oz Physical Exam Const alert, oriented x3, no apparent distress, average body habitus and well nourished Constitutional Narrative: The patient's BMI is 24.2. The patient is paraplegic. General Appearance: cooperative and comfortable Orientation / Consciousness: awake, oriented to person, oriented to place and oriented to time Exam Limitations: physical limitations HEENT normocephalic and head/scalp atraumatic Head and Scalp: normal to inspection, normocephalic and atraumatic Face and Sinus: normal facial exam Nose: external nose normal External Ear: external ears normal Eyes EOMs intact bilaterally General Eye: normal appearance of both eyes Resp normal respiratory effort, normal air movement, no retractions and no use of accessory muscles Effort and Inspection: able to speak in complete sentences Extremity General Extremity: Negative for clubbing or cyanosis Skin Wound Narrative: A stage III sacrococcygeal pressure ulceration is noted. It extends through the cutaneous layers and into the subcutaneous tissues. Bone and fascia are not visible. The base of the ulcer demonstrates pink, healthy granulation tissue. There is evidence of increasing areas of peripheral epithelialization, suggesting progressive healing. This is most notable on the right side of the ulceration. The ulceration appears to be decreasing in size. There is a small amount of bioburden and a small amount of nonviable tissue. Ulcer margins are not well beveled, with a small area of undermining noted superiorly. There is no sign of infection or cellulitis. The periwound dermis is unremarkable. Dimensions are documented elsewhere. A long, well-healed, vertical midline incision is noted over the patient's lumbar spine. Neuro oriented x3 and CN's II-XII intact bilaterally Neuro Narrative: The patient is paraplegic. Sensorium / Orientation: awake, alert, oriented to person, oriented to place and oriented to time Speech: speech normal Psych cooperative and speech normal Appearance: grossly normal and appropriate Attitude: calm Activity / Motor Behavior: appropriate eye contact Speech: normal speech Mood & Affect: euthymic mood Attention / Concentration: attention grossly intact Debridement Note Debridement Note Wound debrided: Sacrococcygeal pressure ulceration Laterality: Not Applicable Wound Grade/Stage: Stage III Type of Debridement: Excisional debridement Anesthesia Used: 5% Lidocaine Gel and Cetacaine Depth: Down to and including healthy tissue and in the subcutaneous layer Percentage of wound debrided: 100 Instrument Used: 5mm curette Tissue Removed: Bioburden and nonviable tissue Severity: Fat Layer Exposed (muscle is exposed. bone is palpable but not exposed.) Amount of bleeding with debridement: Mild Bleeding Controlled with: Compression and gauze Patient tolerated procedure: Patient tolerated procedure well Post-Debridement Measurements and Additional Note: Post-Debridement Measurements/Treatment SCOTTY - Nurse 1 - General Ulcer Assessment Start: 01/01/25 13:10 Freq: Status: Active Protocol: TAISHA Activity Type Activity Date Activity User E-sign Co-sign Detail Recorded Client Recorded Date Recorded By Document 01/01/25 13:10 DL [id number] 01/01/25 13:16 DL 01/01/25 13:10 WC - Today's Visit Information Type of service Follow-up Visit (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 Any new allergies or adverse reactions No Had a fall/change in ADL's that may No increase risk of falls Signs or symptoms of abuse and/or No neglect since last visit Have you been in the hospital since your No last visit? Has dressing in place as prescribed Yes Has compression in place as prescribed N/A Has offloadiing in place as prescribed Yes Experienced any changes in pain level or No management Pain Scale: 0-10 Numeric Is Patient Pain Free? Yes - Nurse 1 - General Ulcer Measurement Start: 01/01/25 13:10 Freq: Status: Active Protocol: Activity Type Activity Date Activity User E-sign Co-sign Detail Recorded Client Recorded Date Recorded By Document 01/01/25 13:10 DL [id number] 01/01/25 13:16 DL 01/01/25 13:10 Wound Center Nurse 1 #14- L SACRAL POST OP -Exudate Amt Medium -Exudate Type Serosanguineous -Wound Margin Distinct, Outline Attached -Granulation Amt Large (67-100%) -Granulation Quality [place] -Necrosis Amt None Present (0 %) -Structure Exposed N/A -Texture (Vivi-wound Skin Appearance) Scarring -Moisture (Vivi-wound Skin Appearance) Maceration -Color (Vivi-wound Skin Appearance) No Abnormality -Ulcer Cleansing Soap and Water -Foul Odor after Cleansing No -Anesthetic Used 5% Lidocaine Gel WC - Nurse 2 - General Ulcer CM Notes Start: 01/01/25 13:10 Freq: Status: Active Protocol: Activity Type Activity Date Activity User E-sign Co-sign Detail Recorded Client Recorded Date Recorded By Document 01/01/25 13:39 [id number] 01/01/25 13:41 01/01/25 13:39 Wound Center Nurse 2 -Time 13:39 -Correct Patient Yes -Correct Side, Site, Position Yes -Correct Procedure Yes -Procedure Performed Yes -Type of Procedure Debridement -Clinical Debridement Subcutaneous -Tissue Removed Subcutaneous -Post Debridement (cm) - Length 2.2 -Post Debridement (cm) - Width 0.5 -Post Debridement (cm) - Depth 0.1 -Total Square (Post) (cm) 1.10 -Area of Debridement (cm) - Length 2.2 -Area of Debridement (cm) - Width 0.5 -Total Square (Area) (cm) 1.10 -Tunneling No -Undermining/Tunneling No -Circular Undermining No -Wound/Ulcer Outcome Not Healed -Ulcer Cleansing Rinsed/ Irrigated with Saline -Foul Odor after Cleansing No -Bioengineered Tissue No -Bleeding Controlled with Pressure -Treatment Response Procedure Tolerated Well -Offloading No -Debridement - Subq, 1st 20sq cm Yes Pain Scale: 0-10 Numeric Is Patient Pain Free? Yes - Nurse 3 - General Ulcer D/C NN Start: 01/01/25 13:10 Freq: Status: Active Protocol: Activity Type Activity Date Activity User E-sign Co-sign Detail Recorded Client Recorded Date Recorded By Document 01/01/25 13:44 DL [id number] 01/01/25 13:46 DL 01/01/25 13:44 Wound Care Center Nurse 3 #14- L SACRAL POST OP -Ulcer Cleansing Rinsed/ Irrigated with Saline -Foul Odor after Cleansing No -Primary Dressing Applied Promogran Lyudmila Matter, Silicone Border Foam 6x6 -Promogran Lyudmila Matter 1 -Silicone Border Foam 6x6 1 Treatment Response Procedure Tolerated Well Pain Scale: 0-10 Numeric Is Patient Pain Free? Yes WC - Visit Discharge Discharge Condition Stable Ambulatory Status Wheelchair Transportation Private Auto Facility Type Home Health Orders Sent Yes Charges/Coding Procedures Integumentary [id number]: [id number] Shila subq tissue 20 sq cm/< Assessment/Plan Assessment/Plan (1) Pressure injury of sacral region, stage 3: CODE(S): L89.153 - Pressure ulcer of sacral region, stage 3 (2) Osteomyelitis of sacrum: CODE(S): M46.28 - Osteomyelitis of vertebra, sacral and sacrococcygeal region (3) Diabetes mellitus: CODE(S): E11.9 - Type 2 diabetes mellitus without complications QUALIFIERS: Diabetes mellitus type: type 2 Diabetes mellitus complication status: with skin complications (4) Tobacco use disorder: CODE(S): F17.200 - Nicotine dependence, unspecified, uncomplicated (5) Paraplegia: CODE(S): G82.20 - Paraplegia, unspecified (6) Smoker: CODE(S): F17.200 - Nicotine dependence, unspecified, uncomplicated (7) History of cholecystectomy: CODE(S): Z98.890 - Other specified postprocedural states; Z90.49 - Acquired absence of other specified parts of digestive tract (8) H/O gastric bypass: CODE(S): Z98.84 - Bariatric surgery status (9) Diabetes mellitus type 2, controlled: CODE(S): E11.9 - Type 2 diabetes mellitus without complications (10) COPD (chronic obstructive pulmonary disease): CODE(S): J44.9 - Chronic obstructive pulmonary disease, unspecified QUALIFIERS: COPD type: unspecified COPD Qualified Code(s): J44.9 - Chronic obstructive pulmonary disease, unspecified (11) GERD without esophagitis: CODE(S): K21.9 - Gastro-esophageal reflux disease without esophagitis (12) Tobacco abuse counseling: CODE(S): Z71.6 - Tobacco abuse counseling (13) History of methicillin resistant staphylococcus aureus (MRSA): CODE(S): Z86.14 - Personal history of Methicillin resistant Staphylococcus aureus infection (14) S/P laminectomy with spinal fusion: CODE(S): Z98.1 - Arthrodesis status (15) Paraplegia: CODE(S): G82.20 - Paraplegia, unspecified PLAN: Plan This is a 64-year-old female paraplegic who has had a history of multiple lumbar spine surgeries in the past. She is currently undergoing management at our facility relative to a chronic pressure ulceration in the sacrococcygeal area. Offloading measures are to be continued. These have been discussed with the patient in detail. She lives with her daughter, who assists the patient in daily care. She also has home health nursing care and an independent aide. The patient is known to be a smoker, smoking approximately 3/4 pack/day. She has been strongly urged to discontinue her smoking habit. She has been advised that smoking may play a role in delayed wound healing. Nutritional optimization has been recommended. The patient has previously undergone consultation with a dietitian, and received dietary recommendations. She has been urged to optimize her glycemic control, and she claims to be well-controlled. We are to continue the use of moistened Lyudmila and Mary Alice SAP applied topically to the wound on a daily basis. The patient and her daughter have been instructed in the appropriate means of application. There is evidence of peripheral epithelialization, signifying improvement in the status of the wound. There is also a small area of undermining superiorly, which may prove to be problematic in the future, and will be monitored serially. The patient is return in 2 weeks for reevaluation. Total time: 25 minutes
[2025-01-15 13:08] VITALS: BP 134/83; PULSE 83; RESP 16; TEMP 36.8
--- NOTE | 2025-01-16 11:04 | WC ---
PHOTO 01/15/25 SACRAL
--- NOTE | 2025-01-16 11:09 | WC ---
PHOTO 01/15/25 SACRAL
--- NOTE | 2025-01-17 16:09 | PCM.WC.HP ---
History of Present Illness Date of Service: 01/15/25 Chief Complaint: Sacral pressure ulcer History of Wound: This is a 64 year old female who had back surgery in early September 2022 at [facility] and then went to rehab at [facility] after that. She had a aurelia replaced in her back. Before her surgery, she was not able to lie flat due to increased pain, so she spent most of her time in her wheelchair. Since her surgery, the pain has limited her ability to sit in her wheelchair. She presented with an ulcer to her sacrum. She was in the ED on 12/10/22 for increased wound drainage and was treated with Keflex. She does have home health to assist with dressing changes. Wound culture 12/26/22 positive for Proteus mirabilis, Enterococcus faecalis, Streptococcus agalactiae, Anaerobic cocci and Bacteroides fragilis. She was treated with Augmentin. Wound culture from 01/23/23 was positive for MRSA and Morganella morganii. The MRSA was treated with Doxycycline. Wound culture 04/03/23 positive for Proteus mirabilis, Enterococcus faecalis, and Anaerobic cocci. She was treated with Augmentin. Wound culture from 07/03/23 positive for Proteus mirabilis and Enterococcus faecalis which was treated with Augmentin. Wound culture was done on 08/23/23. It was negative. She had CT Pelvis on 09/20/23. It showed evidence of tissue defect in the medial aspect of the right buttock abutting the distal sacrum. This most likely represents an ulcerated pressure ulcer. Normal urinary bladder. Normal visualized small intestine. Moderate amount of fecal material is seen in the colon. There is no pelvic fluid. There is no pelvic mass lesion or lymphadenopathy. There is diffuse atherosclerotic calcification of the pelvic arteries. Phleboliths are seen in the pelvis. Normal abdominal wall. Extensive metallic streak artifacts due to fusion with intrapedicular screw and aurelia fixation the lower lumbar spine. Surgery 01/01/24 - Excision sacral pressure sore, Stage IV, with partial ostectomy for osteomyelitis. The procedure was performed by Dr. Costa Hodge. Pathology of sacral bone consistent with chronic osteomyelitis. Soft tissue and skin of sacral region showed ulceration with associated acute and chronic inflammation and granulation. Operative bone culture from 01/01/24 positive for Staphylococcus haemolyticus. She was treated for 6 weeks for positive bone cultures. Operative tissue culture from 01/01/24 positive for Corynebacterium striatum, Strep anginosus, Prevotella disiens, and Anaerobic cocci. She was treated with Doxycycline and Augmentin. [facility] Medical History Pressure injury of sacral region, stage 3 Diabetes mellitus type 2, controlled GERD without esophagitis COPD (chronic obstructive pulmonary disease) Tobacco abuse counseling History of methicillin resistant staphylococcus aureus (MRSA) Wears glasses Post-menopausal Depression Marijuana use Neuropathy Thyroid disease Arthritis Back pain Gastric reflux Smoker Paraplegia History of stress test Personal history of Methicillin resistant Staphylococcus aureus infection Diabetes mellitus Pressure injury of sacral region, stage 4 Weight loss Positive colorectal cancer screening using Cologuard test Witnessed seizure-like activity Ulcer of left lower leg Ulcer of right lower extremity with fat layer exposed Ulcer of left lower extremity with fat layer exposed Toxic encephalopathy Wound, open, abdominal wall, anterior Current tobacco use Chest pain, unspecified Bone lesion Intractable low back pain Major depressive disorder Chronic cluster headache, not intractable Age-related osteoporosis without current pathological fracture Primary generalized (osteo)arthritis Other intervertebral disc degeneration, lumbar region Hypothyroidism Anemia Muscle weakness Spinal stenosis, lumbar region without neurogenic claudication Neuromuscular scoliosis Chronic low back pain Paraplegia Morbid obesity HTN (hypertension) HLD (hyperlipidemia) Home Medications ?Medication ?Instructions ?Recorded ?Last Taken ?Type aumwfyiglyet-pehdjqfx-dixxtx 1 tab PO DAILY supplement 02/26/18 12/31/23 History tablet (Cerovite Senior) pantoprazole 40 mg tablet,delayed 40 mg PO BID PRN stomach 09/17/20 12/31/23 History release acetaminophen 500 mg tablet 500 mg PO Q6H PRN Pain 1-10 Or 10/08/20 12/31/23 History Fever albuterol sulfate 90 mcg/actuation 2 puff inhalation Q4H PRN PRN Sob 10/08/20 Unknown History aerosol inhaler &/Or Wheezing betamethasone valerate 0.1 % 1 applic topical BID PRN skin 01/15/21 12/31/23 Rx topical cream irritation #15 grams cetirizine 10 mg tablet 10 mg PO DAILY #30 tabs 01/15/21 12/31/23 Rx hydrocolloid dressing 4 X 4 #5 ea 09/07/21 Unknown Rx (DuoDERM CGF Adhesive Border Dressing) biotin 1 mg tablet 1 mg PO DAILY SUPPLEMENT 05/17/22 12/31/23 History calcium citrate 250 mg PO DAILY SUPPLEMENT 05/17/22 12/31/23 History cholecalciferol (vitamin D3) 25 25 mcg PO DAILY SUPPLEMENT 05/17/22 12/31/23 History mcg (1,000 unit) capsule cyanocobalamin (vitamin B-12) 1,000 mcg PO DAILY SUPPLEMENT 05/17/22 12/31/23 History 1,000 mcg tablet ferrous sulfate 325 mg (65 mg 325 mg PO DAILY SUPPLEMENT 05/17/22 12/31/23 History iron) tablet mupirocin 2 % topical ointment 1 applic topical DAILY PRN Wound 05/17/22 12/31/23 History Care gabapentin 300 mg capsule 300 mg PO BID 30 days #60 caps 05/19/22 01/01/24 Rx dextran 70-hypromellose 0.1 %-0.3 1 drp ophthalmic (eye) TID PRN dry 05/25/22 12/31/23 History % eye drops (Artificial Tears eye(s) (dextran 70-hypromellose)) ipratropium 20 mcg-albuterol 100 1 puff inhalation Q6H PRN copd 05/25/22 01/01/24 History mcg/actuation mist for inhalation (Combivent Respimat) nystatin 100,000 unit/gram topical 1 applic topical BID 10 days #30 07/08/22 12/31/23 Rx powder grams sennosides 8.6 mg tablet (Senna 8.6 mg PO .QOD STOOL 08/25/22 12/31/23 History Lax) lorazepam 0.5 mg tablet 0.5 mg PO BID PRN Anxiety 12/01/22 01/01/24 History methadone 5 mg tablet 10 mg PO BID 12/01/22 12/31/23 History naloxone 4 mg/actuation nasal 1 spray intranasal Q2M PRN opioid 12/01/22 Unknown History spray (Narcan) overdose oxycodone-acetaminophen 10 mg-325 1 tab PO Q3H PRN Pain 12/01/22 01/01/24 History mg tablet (Percocet) scopolamine base 1 mg over 3 days 1 patch transdermal Q3D PRN nausea 05/16/23 Unknown Rx transdermal patch and vomiting #10 ea lidocaine 5 % topical ointment 1 applic topical TID PRN pain #30 07/12/23 12/31/23 Rx grams levothyroxine 175 mcg tablet 175 mcg PO DAILY disorder of 12/26/23 12/31/23 History thyroid gland magnesium glycinate 100 mg (as 200 mg PO BID 12/26/23 12/31/23 History glycinate) tablet doxycycline hyclate 100 mg tablet 100 mg PO BID 14 days #28 tabs 01/02/24 Unknown Rx amoxicillin 875 mg-potassium 1 tab PO Q12H 14 days #28 tabs 01/24/24 Unknown Rx clavulanate 125 mg tablet valacyclovir 500 mg tablet 500 mg PO DAILY Check with primary 02/06/24 Unknown Rx (Valtrex) doctor #30 tabs amoxicillin 875 mg-potassium 1 tab PO BID 7 days #14 tabs 08/28/24 Unknown Rx clavulanate 125 mg tablet cefuroxime axetil 500 mg tablet 500 mg PO BID 09/11/24 Unknown History Allergy/AdvReac Type Severity Reaction Status Date / Time NSAIDS (Non-Steroidal Allergy GASTRIC Verified 08/28/24 14:03 Anti-Inflamma BYPASS ondansetron (From Zofran) AdvReac Other Verified 08/28/24 14:03 trazodone AdvReac Other Verified 08/28/24 14:03 Family History Father Diabetes Hypertension Myocardial infarction Alcoholism Brother Myocardial infarction Alcoholism Mother CVA (cerebral vascular accident) Surgical History S/P laminectomy with spinal fusion H/O dilation and curettage History of bilateral salpingo-oophorectomy S/P arthroscopic knee surgery s/p nerve spine surgery S/P lumbar spine operation s/p upper back surgery skin graft Hydradenitis History of cholecystectomy H/O gastric bypass Social History Smoking Status: Current every day smoker tobacco type: cigarettes alcohol intake: never substance use type: does not use caffeine: Yes what type of physical activity do you participate in: none seatbelt use: always do you feel safe at home: Yes additional social history: Vital Signs Vital Signs Vital Signs: Weight Weight: 149 lb 14.629 oz Physical Exam Const alert, oriented x3, no apparent distress, average body habitus and well nourished Constitutional Narrative: The patient's BMI is 24.2. The patient is paraplegic. General Appearance: cooperative and comfortable Orientation / Consciousness: awake, oriented to person, oriented to place and oriented to time Exam Limitations: physical limitations HEENT normocephalic and head/scalp atraumatic Head and Scalp: normal to inspection, normocephalic and atraumatic Face and Sinus: normal facial exam Nose: external nose normal External Ear: external ears normal Eyes EOMs intact bilaterally General Eye: normal appearance of both eyes Resp normal respiratory effort, normal air movement, no retractions and no use of accessory muscles Effort and Inspection: able to speak in complete sentences Extremity General Extremity: Negative for clubbing or cyanosis Skin Wound Narrative: A stage III sacrococcygeal pressure ulceration is noted. It extends through the cutaneous layers and into the subcutaneous tissues. Bone and fascia are not visible. The base of the ulcer demonstrates pink, healthy granulation tissue. There is evidence of increasing areas of peripheral epithelialization, suggesting progressive healing. The ulceration appears to be decreasing in size. There is a small amount of bioburden. Ulcer margins are not well beveled, with a small area of undermining noted superiorly. There is no sign of infection or cellulitis. The periwound dermis is unremarkable. Dimensions are documented elsewhere. A long, well-healed, vertical midline incision is noted over the patient's lumbar spine. Neuro oriented x3 and CN's II-XII intact bilaterally Neuro Narrative: The patient is paraplegic. Sensorium / Orientation: awake, alert, oriented to person, oriented to place and oriented to time Speech: speech normal Psych cooperative and speech normal Appearance: grossly normal and appropriate Attitude: calm Activity / Motor Behavior: appropriate eye contact Speech: normal speech Mood & Affect: euthymic mood Attention / Concentration: attention grossly intact Debridement Note Debridement Note Wound debrided: Sacrococcygeal pressure ulceration Laterality: Not Applicable Wound Grade/Stage: Stage III Type of Debridement: Excisional debridement Anesthesia Used: 5% Lidocaine Gel and Cetacaine Depth: Down to and including healthy tissue and in the subcutaneous layer Percentage of wound debrided: 100 Instrument Used: 3mm curette Tissue Removed: Bioburden Severity: Fat Layer Exposed (muscle is exposed. bone is palpable but not exposed.) Amount of bleeding with debridement: Mild Bleeding Controlled with: Compression and gauze Patient tolerated procedure: Patient tolerated procedure well Post-Debridement Measurements and Additional Note: Post-Debridement Measurements/Treatment WC - Nurse 1 - General Ulcer Assessment Start: 01/01/25 13:10 Freq: Status: Active Protocol: TAISHA Activity Type Activity Date Activity User E-sign Co-sign Detail Recorded Client Recorded Date Recorded By Document 01/01/25 13:10 DL [id number] 01/01/25 13:16 DL Document 01/15/25 13:08 BM [id number] 01/15/25 13:20 BMF 01/01/25 01/15/25 13:10 13:08 WC - Today's Visit Information Type of service Follow-up Visit Follow-up Visit (Physician/TICKET MAKER (Physician/TICKET MAKER ) ) Arrival Mode Wheelchair Wheelchair Transfer Assistance Manual Other Transfer Assist (Other) x1 1 stand by Patient Identification Verified (Name & Yes Yes ) Patient Requires Transmission-Based No No Precautions Vital Signs Temperature (97.8 F-99.1 F) 97.8 F 98.2 F Temperature Source Temporal Temporal Pulse Rate (60-100) 98 83 Pulse Location Monitor Monitor Respiratory Rate (12-18) 18 16 Respiratory rate source Observation Observation Oxygen Delivery Method Room Air Blood Pressure (90/60-120/80) 109/82 H 134/83 H Blood Pressure Mean 91 100 Source Monitor Monitor Position Sitting Blood Pressure Location Left Arm History Since Last Visit- (Skip if this is Patient's initial visit) Have you changed medications since your No No last visit? Any new allergies or adverse reactions No No Had a fall/change in ADL's that may No No increase risk of falls Signs or symptoms of abuse and/or No No neglect since last visit Have you been in the hospital since your No No last visit? Has dressing in place as prescribed Yes Yes Has compression in place as prescribed N/A N/A Has offloadiing in place as prescribed Yes N/A Experienced any changes in pain level or No No management Left Footwear Slipper Right Footwear Slipper Pain Scale: 0-10 Numeric Is Patient Pain Free? Yes Yes SCOTTY - Nurse 1 - General Ulcer Measurement Start: 01/01/25 13:10 Freq: Status: Active Protocol: Activity Type Activity Date Activity User E-sign Co-sign Detail Recorded Client Recorded Date Recorded By Document 01/01/25 13:10 DL [id number] 01/01/25 13:16 DL Document 01/15/25 13:08 [facility] [id number] 01/15/25 13:20 [facility] 01/01/25 01/15/25 13:10 13:08 Wound Center Nurse 1 #14- L SACRAL POST OP cluster -Combined with other wound No -Current Size (cm) - Length 0.3 -Current Size (cm) - Width 0.5 -Current Size (cm) - Depth 0.2 -Total Square Cm 0.15 -Date of Last Picture (Recall this 01/15/25 field) -Photo Taken Yes -Epithelialization Small 1-33% -Tunneling No -Undermining/Tunneling No -Circular Undermining No -Exudate Amt Medium -Exudate Type Serosanguineous -Wound Margin Distinct, Thickened & Outline Rolled Under Attached -Granulation Amt Large (67-100%) Large (67-100%) -Granulation Quality [place] Red -Slough/Fibrin No -Necrosis Amt None Present (0 None Present (0 %) %) -Structure Exposed N/A -Texture (Vivi-wound Skin Appearance) Scarring Assessed -Moisture (Vivi-wound Skin Appearance) Maceration Assessed -Color (Vivi-wound Skin Appearance) No Abnormality Assessed -Temperature (Vivi-wound Skin No Abnormality Appearance) (Pt Warm) -Tenderness on Palpation (Ivvi-wound Yes Skin Appearance) -Ulcer Cleansing Soap and Water Rinsed/ Irrigated with Saline -Foul Odor after Cleansing No No -Anesthetic Used 5% Lidocaine 5% Lidocaine Gel Gel WC - Nurse 2 - General Ulcer CM Notes Start: 01/01/25 13:10 Freq: Status: Active Protocol: Activity Type Activity Date Activity User E-sign Co-sign Detail Recorded Client Recorded Date Recorded By Document 01/01/25 13:39 [id number] 01/01/25 13:41 Document 01/15/25 13:39 [id number] 01/15/25 13:43 01/01/25 01/15/25 13:39 13:39 Wound Center Nurse 2 #14- L SACRAL POST OP cluster -Time 13:39 13:42 -Correct Patient Yes Yes -Correct Side, Site, Position Yes Yes -Correct Procedure Yes Yes -Procedure Performed Yes Yes -Type of Procedure Debridement Debridement -Clinical Debridement Subcutaneous Subcutaneous -Tissue Removed Subcutaneous Subcutaneous -Post Debridement (cm) - Length 2.2 4.0 -Post Debridement (cm) - Width 0.5 0.5 -Post Debridement (cm) - Depth 0.1 0.1 -Total Square (Post) (cm) 1.10 2.00 -Area of Debridement (cm) - Length 2.2 4.0 -Area of Debridement (cm) - Width 0.5 0.5 -Total Square (Area) (cm) 1.10 2.00 -Tunneling No No -Undermining/Tunneling No No -Circular Undermining No No -Wound/Ulcer Outcome Not Healed Not Healed -Ulcer Cleansing Rinsed/ Rinsed/ Irrigated with Irrigated with Saline Saline -Foul Odor after Cleansing No No -Bioengineered Tissue No No -Bleeding Controlled with Pressure Pressure -Treatment Response Procedure Procedure Tolerated Well Tolerated Well -Offloading No No -Debridement - Subq, 1st 20sq cm Yes Yes Pain Scale: 0-10 Numeric Is Patient Pain Free? Yes Yes - Nurse 3 - General Ulcer D/C NN Start: 01/01/25 13:10 Freq: Status: Active Protocol: Activity Type Activity Date Activity User E-sign Co-sign Detail Recorded Client Recorded Date Recorded By Document 01/01/25 13:44 [id number] 01/01/25 13:46 DL Document 01/15/25 13:46 [facility] [id number] 01/15/25 13:46 [facility] 01/01/25 01/15/25 13:44 13:46 Wound Care Center Nurse 3 #14- L SACRAL POST OP cluster -Ulcer Cleansing Rinsed/ Rinsed/ Irrigated with Irrigated with Saline Saline -Foul Odor after Cleansing No No -Primary Dressing Applied Promogran Promogran Lyudmila Matter, Lyudmila Matter, Silicone Border Silicone Border Foam 6x6 Foam 4x4 -Promogran Lyudmila Matter 1 1 -Silicone Border Foam 4x4 1 -Silicone Border Foam 6x6 1 Treatment Response Procedure Procedure Tolerated Well Tolerated Well Pain Scale: 0-10 Numeric Is Patient Pain Free? Yes Yes - Visit Discharge Discharge Condition Stable Stable Ambulatory Status Wheelchair Wheelchair Transportation Private Auto Private Auto Accompanied by spike manriquez in [facility] Facility Type Home Health Home Health Orders Sent Yes Charges/Coding Procedures Integumentary [id number]: [id number] Shila subq tissue 20 sq cm/< Assessment/Plan Assessment/Plan (1) Pressure injury of sacral region, stage 3: CODE(S): L89.153 - Pressure ulcer of sacral region, stage 3 (2) Osteomyelitis of sacrum: CODE(S): M46.28 - Osteomyelitis of vertebra, sacral and sacrococcygeal region (3) Diabetes mellitus: CODE(S): E11.9 - Type 2 diabetes mellitus without complications QUALIFIERS: Diabetes mellitus type: type 2 Diabetes mellitus complication status: with skin complications (4) Tobacco use disorder: CODE(S): F17.200 - Nicotine dependence, unspecified, uncomplicated (5) Paraplegia: CODE(S): G82.20 - Paraplegia, unspecified (6) Smoker: CODE(S): F17.200 - Nicotine dependence, unspecified, uncomplicated (7) Tobacco abuse counseling: CODE(S): Z71.6 - Tobacco abuse counseling (8) History of cholecystectomy: CODE(S): Z98.890 - Other specified postprocedural states; Z90.49 - Acquired absence of other specified parts of digestive tract (9) H/O gastric bypass: CODE(S): Z98.84 - Bariatric surgery status (10) Diabetes mellitus type 2, controlled: CODE(S): E11.9 - Type 2 diabetes mellitus without complications (11) COPD (chronic obstructive pulmonary disease): CODE(S): J44.9 - Chronic obstructive pulmonary disease, unspecified QUALIFIERS: COPD type: unspecified COPD Qualified Code(s): J44.9 - Chronic obstructive pulmonary disease, unspecified (12) GERD without esophagitis: CODE(S): K21.9 - Gastro-esophageal reflux disease without esophagitis (13) History of methicillin resistant staphylococcus aureus (MRSA): CODE(S): Z86.14 - Personal history of Methicillin resistant Staphylococcus aureus infection (14) S/P laminectomy with spinal fusion: CODE(S): Z98.1 - Arthrodesis status (15) Paraplegia: CODE(S): G82.20 - Paraplegia, unspecified PLAN: Plan This is a 64-year-old female paraplegic who has had a history of multiple lumbar spine surgeries in the past. She is currently undergoing management at our facility relative to a chronic pressure ulceration in the sacrococcygeal area. Offloading measures are to be continued. These have been discussed with the patient in detail. She lives with her daughter, who assists the patient in daily care. She also has home health nursing care and an independent aide. The patient is known to be a smoker, smoking approximately 3/4 pack/day. She has been strongly urged to discontinue her smoking habit. She has been advised that smoking may play a role in delayed wound healing. Nutritional optimization has been recommended. The patient has previously undergone consultation with a dietitian, and received dietary recommendations. She has been urged to optimize her glycemic control, and she claims to be well-controlled. We are to continue the use of moistened Lyudmila and [place] SAP applied topically to the wound on a daily basis. The patient and her daughter have been instructed in the appropriate means of application. There is evidence of peripheral epithelialization, signifying improvement in the status of the wound. There is also a small area of undermining superiorly, which may prove to be problematic in the future, and will be monitored serially. The patient is return in 2 weeks for reevaluation. Total time: 24 minutes
== END 2025-01-20 23:59 | disposition home or self-care (01) ==
LOC: WC 13:00
PROVIDERS: PCP Internal Medicine; Referring Provider Nurse Practitioner Family; Visit Provider Surgery
DX: L89.153 Pressure ulcer of sacral region, stage 3 (principal); G82.20 Paraplegia, unspecified; M46.28 Osteomyelitis of vertebra, sacral and sacrococcygeal region; J44.9 Chronic obstructive pulmonary disease, unspecified; E11.69 Type 2 diabetes mellitus with other specified complication; E11.40 Type 2 diabetes mellitus with diabetic neuropathy, unspecified; Z98.1 Arthrodesis status; K21.9 Gastro-esophageal reflux disease without esophagitis; Z86.14 Personal history of Methicillin resistant Staphylococcus aureus infection; E78.5 Hyperlipidemia, unspecified; G89.29 Other chronic pain; D64.9 Anemia, unspecified; F17.210 Nicotine dependence, cigarettes, uncomplicated; I10 Essential (primary) hypertension; Z79.899 Other long term (current) drug therapy; Z98.84 Bariatric surgery status
CPT/HCPCS: 11042

== ENCOUNTER 2025-02-11 13:30 | Outpatient (RCR) | payer MEDICARE, MEDICAID, SELFPAY ==
[2025-01-28 13:46] VITALS: BP 169/91; PULSE 66; RESP 16; TEMP 36.1
--- NOTE | 2025-01-29 09:00 | WC ---
PHOTO 01/28/25 [facility]
--- NOTE | 2025-02-01 17:54 | PCM.WC.HP ---
History of Present Illness Date of Service: 01/28/25 Chief Complaint: Sacral pressure ulcer History of Wound: This is a 64 year old female who had back surgery in early September 2022 at [facility] and then went to rehab at [place] after that. She had a aurelia replaced in her back. Before her surgery, she was not able to lie flat due to increased pain, so she spent most of her time in her wheelchair. Since her surgery, the pain has limited her ability to sit in her wheelchair. She presented with an ulcer to her sacrum. She was in the ED on 12/10/22 for increased wound drainage and was treated with Keflex. She does have home health to assist with dressing changes. Wound culture 12/26/22 positive for Proteus mirabilis, Enterococcus faecalis, Streptococcus agalactiae, Anaerobic cocci and Bacteroides fragilis. She was treated with Augmentin. Wound culture from 01/23/23 was positive for MRSA and Morganella morganii. The MRSA was treated with Doxycycline. Wound culture 04/03/23 positive for Proteus mirabilis, Enterococcus faecalis, and Anaerobic cocci. She was treated with Augmentin. Wound culture from 07/03/23 positive for Proteus mirabilis and Enterococcus faecalis which was treated with Augmentin. Wound culture was done on 08/23/23. It was negative. She had CT Pelvis on 09/20/23. It showed evidence of tissue defect in the medial aspect of the right buttock abutting the distal sacrum. This most likely represents an ulcerated pressure ulcer. Normal urinary bladder. Normal visualized small intestine. Moderate amount of fecal material is seen in the colon. There is no pelvic fluid. There is no pelvic mass lesion or lymphadenopathy. There is diffuse atherosclerotic calcification of the pelvic arteries. Phleboliths are seen in the pelvis. Normal abdominal wall. Extensive metallic streak artifacts due to fusion with intrapedicular screw and aurelia fixation the lower lumbar spine. Surgery 01/01/24 - Excision sacral pressure sore, Stage IV, with partial ostectomy for osteomyelitis. The procedure was performed by Dr. Costa Hodge. Pathology of sacral bone consistent with chronic osteomyelitis. Soft tissue and skin of sacral region showed ulceration with associated acute and chronic inflammation and granulation. Operative bone culture from 01/01/24 positive for Staphylococcus haemolyticus. She was treated for 6 weeks for positive bone cultures. Operative tissue culture from 01/01/24 positive for Corynebacterium striatum, Strep anginosus, Prevotella disiens, and Anaerobic cocci. She was treated with Doxycycline and Augmentin. [facility] Medical History Pressure injury of sacral region, stage 3 Diabetes mellitus type 2, controlled GERD without esophagitis COPD (chronic obstructive pulmonary disease) Tobacco abuse counseling History of methicillin resistant staphylococcus aureus (MRSA) Wears glasses Post-menopausal Depression Marijuana use Neuropathy Thyroid disease Arthritis Back pain Gastric reflux Smoker Paraplegia History of stress test Personal history of Methicillin resistant Staphylococcus aureus infection Diabetes mellitus Pressure injury of sacral region, stage 4 Weight loss Positive colorectal cancer screening using Cologuard test Witnessed seizure-like activity Ulcer of left lower leg Ulcer of right lower extremity with fat layer exposed Ulcer of left lower extremity with fat layer exposed Toxic encephalopathy Wound, open, abdominal wall, anterior Current tobacco use Chest pain, unspecified Bone lesion Intractable low back pain Major depressive disorder Chronic cluster headache, not intractable Age-related osteoporosis without current pathological fracture Primary generalized (osteo)arthritis Other intervertebral disc degeneration, lumbar region Hypothyroidism Anemia Muscle weakness Spinal stenosis, lumbar region without neurogenic claudication Neuromuscular scoliosis Chronic low back pain Paraplegia Morbid obesity HTN (hypertension) HLD (hyperlipidemia) Home Medications ?Medication ?Instructions ?Recorded ?Last Taken ?Type dhekzepasziv-gorcphbs-dslytq 1 tab PO DAILY supplement 02/26/18 12/31/23 History tablet (Cerovite Senior) pantoprazole 40 mg tablet,delayed 40 mg PO BID PRN stomach 09/17/20 12/31/23 History release acetaminophen 500 mg tablet 500 mg PO Q6H PRN Pain 1-10 Or 10/08/20 12/31/23 History Fever albuterol sulfate 90 mcg/actuation 2 puff inhalation Q4H PRN PRN Sob 10/08/20 Unknown History aerosol inhaler &/Or Wheezing betamethasone valerate 0.1 % 1 applic topical BID PRN skin 01/15/21 12/31/23 Rx topical cream irritation #15 grams cetirizine 10 mg tablet 10 mg PO DAILY #30 tabs 01/15/21 12/31/23 Rx hydrocolloid dressing 4 X 4 #5 ea 09/07/21 Unknown Rx (DuoDERM CGF Adhesive Border Dressing) biotin 1 mg tablet 1 mg PO DAILY SUPPLEMENT 05/17/22 12/31/23 History calcium citrate 250 mg PO DAILY SUPPLEMENT 05/17/22 12/31/23 History cholecalciferol (vitamin D3) 25 25 mcg PO DAILY SUPPLEMENT 05/17/22 12/31/23 History mcg (1,000 unit) capsule cyanocobalamin (vitamin B-12) 1,000 mcg PO DAILY SUPPLEMENT 05/17/22 12/31/23 History 1,000 mcg tablet ferrous sulfate 325 mg (65 mg 325 mg PO DAILY SUPPLEMENT 05/17/22 12/31/23 History iron) tablet mupirocin 2 % topical ointment 1 applic topical DAILY PRN Wound 05/17/22 12/31/23 History Care gabapentin 300 mg capsule 300 mg PO BID 30 days #60 caps 05/19/22 01/01/24 Rx dextran 70-hypromellose 0.1 %-0.3 1 drp ophthalmic (eye) TID PRN dry 05/25/22 12/31/23 History % eye drops (Artificial Tears eye(s) (dextran 70-hypromellose)) ipratropium 20 mcg-albuterol 100 1 puff inhalation Q6H PRN copd 05/25/22 01/01/24 History mcg/actuation mist for inhalation (Combivent Respimat) nystatin 100,000 unit/gram topical 1 applic topical BID 10 days #30 07/08/22 12/31/23 Rx powder grams sennosides 8.6 mg tablet (Senna 8.6 mg PO .QOD STOOL 08/25/22 12/31/23 History Lax) lorazepam 0.5 mg tablet 0.5 mg PO BID PRN Anxiety 12/01/22 01/01/24 History methadone 5 mg tablet 10 mg PO BID 12/01/22 12/31/23 History naloxone 4 mg/actuation nasal 1 spray intranasal Q2M PRN opioid 12/01/22 Unknown History spray (Narcan) overdose oxycodone-acetaminophen 10 mg-325 1 tab PO Q3H PRN Pain 12/01/22 01/01/24 History mg tablet (Percocet) scopolamine base 1 mg over 3 days 1 patch transdermal Q3D PRN nausea 05/16/23 Unknown Rx transdermal patch and vomiting #10 ea lidocaine 5 % topical ointment 1 applic topical TID PRN pain #30 07/12/23 12/31/23 Rx grams levothyroxine 175 mcg tablet 175 mcg PO DAILY disorder of 12/26/23 12/31/23 History thyroid gland magnesium glycinate 100 mg (as 200 mg PO BID 12/26/23 12/31/23 History glycinate) tablet doxycycline hyclate 100 mg tablet 100 mg PO BID 14 days #28 tabs 01/02/24 Unknown Rx amoxicillin 875 mg-potassium 1 tab PO Q12H 14 days #28 tabs 01/24/24 Unknown Rx clavulanate 125 mg tablet valacyclovir 500 mg tablet 500 mg PO DAILY Check with primary 02/06/24 Unknown Rx (Valtrex) doctor #30 tabs amoxicillin 875 mg-potassium 1 tab PO BID 7 days #14 tabs 08/28/24 Unknown Rx clavulanate 125 mg tablet cefuroxime axetil 500 mg tablet 500 mg PO BID 09/11/24 Unknown History Allergy/AdvReac Type Severity Reaction Status Date / Time NSAIDS (Non-Steroidal Allergy GASTRIC Verified 08/28/24 14:03 Anti-Inflamma BYPASS ondansetron (From Zofran) AdvReac Other Verified 08/28/24 14:03 trazodone AdvReac Other Verified 08/28/24 14:03 Family History Father Diabetes Hypertension Myocardial infarction Alcoholism Brother Myocardial infarction Alcoholism Mother CVA (cerebral vascular accident) Surgical History S/P laminectomy with spinal fusion H/O dilation and curettage History of bilateral salpingo-oophorectomy S/P arthroscopic knee surgery s/p nerve spine surgery S/P lumbar spine operation s/p upper back surgery skin graft Hydradenitis History of cholecystectomy H/O gastric bypass Social History Smoking Status: Current every day smoker tobacco type: cigarettes alcohol intake: never substance use type: does not use caffeine: Yes what type of physical activity do you participate in: none seatbelt use: always do you feel safe at home: Yes additional social history: Vital Signs Vital Signs Vital Signs: Weight Weight: 149 lb 14.629 oz Physical Exam Const alert, oriented x3, no apparent distress, average body habitus and well nourished Constitutional Narrative: The patient's BMI is 24.2. The patient is paraplegic. General Appearance: cooperative and comfortable Orientation / Consciousness: awake, oriented to person, oriented to place and oriented to time Exam Limitations: physical limitations HEENT normocephalic and head/scalp atraumatic Head and Scalp: normal to inspection, normocephalic and atraumatic Face and Sinus: normal facial exam Nose: external nose normal External Ear: external ears normal Eyes EOMs intact bilaterally General Eye: normal appearance of both eyes Resp normal respiratory effort, normal air movement, no retractions and no use of accessory muscles Effort and Inspection: able to speak in complete sentences Extremity General Extremity: Negative for clubbing or cyanosis Skin Wound Narrative: A stage III sacrococcygeal pressure ulceration is noted. It extends through the cutaneous layers and into the subcutaneous tissues. Bone and fascia are not visible. The base of the ulcer demonstrates pink, healthy granulation tissue. There is evidence of increasing areas of peripheral epithelialization, suggesting progressive healing. The ulceration appears to be decreasing in size. There is a small amount of bioburden. Ulcer margins are not well beveled superiorly, with a small area of undermining. There is no sign of infection or cellulitis. The periwound dermis is unremarkable. Dimensions are documented elsewhere. A long, well-healed, vertical midline incision is noted over the patient's lumbar spine. Neuro oriented x3 and CN's II-XII intact bilaterally Neuro Narrative: The patient is paraplegic. Sensorium / Orientation: awake, alert, oriented to person, oriented to place and oriented to time Speech: speech normal Psych cooperative and speech normal Appearance: grossly normal and appropriate Attitude: calm Activity / Motor Behavior: appropriate eye contact Speech: normal speech Mood & Affect: euthymic mood Attention / Concentration: attention grossly intact Debridement Note Debridement Note Wound debrided: Sacrococcygeal pressure ulceration Laterality: Not Applicable Wound Grade/Stage: Stage III Type of Debridement: Excisional debridement Anesthesia Used: 5% Lidocaine Gel and Cetacaine Depth: Down to and including healthy tissue and in the subcutaneous layer Percentage of wound debrided: 100 Instrument Used: 3mm curette Tissue Removed: Bioburden Severity: Fat Layer Exposed (muscle is exposed. bone is palpable but not exposed.) Amount of bleeding with debridement: Mild Bleeding Controlled with: Compression and gauze Patient tolerated procedure: Patient tolerated procedure well Post-Debridement Measurements and Additional Note: Post-Debridement Measurements/Treatment - Nurse 1 - General Ulcer Assessment Start: 01/28/25 13:46 Freq: Status: Active Protocol: TAISHA Activity Type Activity Date Activity User E-sign Co-sign Detail Recorded Client Recorded Date Recorded By Document 01/28/25 13:46 [facility] [id number] 01/28/25 13:47 [facility] 01/28/25 13:46 - Today's Visit Information Type of service Follow-up Visit (Physician/SEARCH ENGINE OPTIMIZATION ANALYST ) Arrival Mode Wheelchair Transfer Assistance Other Transfer Assist (Other) 1 Patient Identification Verified (Name & Yes ) Patient Requires Transmission-Based No Precautions Vital Signs Temperature (97.8 F-99.1 F) 96.9 F L Temperature Source Temporal Pulse Rate (60-100) 66 Pulse Location Monitor Respiratory Rate (12-18) 16 Respiratory rate source Observation Oxygen Delivery Method Room Air Blood Pressure (90/60-120/80) 169/91 H Blood Pressure Mean 117 Source Monitor Position Sitting Blood Pressure Location Left Arm History Since Last Visit- (Skip if this is Patient's initial visit) Have you changed medications since your No last visit? Any new allergies or adverse reactions No Had a fall/change in ADL's that may No increase risk of falls Signs or symptoms of abuse and/or No neglect since last visit Have you been in the hospital since your No last visit? Has dressing in place as prescribed Yes Has compression in place as prescribed N/A Has offloadiing in place as prescribed N/A Experienced any changes in pain level or No management Left Footwear Slipper Right Footwear Slipper Pain Scale: 0-10 Numeric Is Patient Pain Free? Yes - Nurse 1 - General Ulcer Measurement Start: 01/28/25 13:46 Freq: Status: Active Protocol: Activity Type Activity Date Activity User E-sign Co-sign Detail Recorded Client Recorded Date Recorded By Document 01/28/25 13:46 [facility] [id number] 01/28/25 13:47 [facility] 01/28/25 13:46 Wound Center Nurse 1 #14- L SACRAL POST OP cluster -Combined with other wound No -Current Size (cm) - Length 2.3 -Current Size (cm) - Width 0.7 -Current Size (cm) - Depth 0.1 -Total Square Cm 1.61 -Date of Last Picture (Recall this 01/28/25 field) -Photo Taken Yes -Epithelialization Small 1-33% -Tunneling No -Undermining/Tunneling No -Circular Undermining No -Exudate Amt Medium -Exudate Type Serosanguineous -Wound Margin Thickened & Rolled Under -Granulation Amt Large (67-100%) -Granulation Quality Red -Slough/Fibrin Yes -Necrosis Amt Small (1-33%) -Necrotic Tissue Type Adherent Slough -Texture (Vivi-wound Skin Appearance) Assessed, Scarring -Moisture (Vivi-wound Skin Appearance) Assessed -Color (Vivi-wound Skin Appearance) Assessed -Temperature (Vivi-wound Skin No Abnormality Appearance) (Pt Warm) -Tenderness on Palpation (Vivi-wound No Skin Appearance) -Ulcer Cleansing Rinsed/ Irrigated with Saline -Foul Odor after Cleansing No -Anesthetic Used 5% Lidocaine Gel WC - Nurse 2 - General Ulcer CM Notes Start: 01/28/25 13:46 Freq: Status: Active Protocol: Activity Type Activity Date Activity User E-sign Co-sign Detail Recorded Client Recorded Date Recorded By Document 01/28/25 14:11 DS [id number] 01/28/25 14:13 DS 01/28/25 14:11 Wound Center Nurse 2 -Time 14:11 -Correct Patient Yes -Correct Side, Site, Position Yes -Correct Procedure Yes -Procedure Performed Yes -Type of Procedure Debridement -Clinical Debridement Subcutaneous -Tissue Removed Subcutaneous -Post Debridement (cm) - Length 1.0 -Post Debridement (cm) - Width 0.5 -Post Debridement (cm) - Depth 0.1 -Total Square (Post) (cm) 0.50 -Area of Debridement (cm) - Length 1.0 -Area of Debridement (cm) - Width 0.5 -Total Square (Area) (cm) 0.50 -Tunneling No -Undermining/Tunneling No -Circular Undermining No -Wound/Ulcer Outcome Not Healed -Foul Odor after Cleansing No -Bioengineered Tissue No -Bleeding Controlled with Pressure -Treatment Response Procedure Tolerated Well -Debridement - Subq, 1st 20sq cm Yes Pain Scale: 0-10 Numeric Is Patient Pain Free? Yes SCOTTY - Nurse 3 - General Ulcer D/C NN Start: 01/28/25 13:46 Freq: Status: Active Protocol: Activity Type Activity Date Activity User E-sign Co-sign Detail Recorded Client Recorded Date Recorded By Document 01/28/25 14:18 [facility] [id number] 01/28/25 14:19 [facility] 01/28/25 14:18 Wound Care Center Nurse 3 #14- L SACRAL POST OP cluster -Ulcer Cleansing Rinsed/ Irrigated with Saline -Foul Odor after Cleansing No -Primary Dressing Applied Promogran Lyudmila Matter, Silicone Border Foam 4x4 -Primary Dressing Covered/Secured with Dry Gauze -Promogran Lyudmila Matter 1 -Silicone Border Foam 4x4 1 Treatment Response Procedure Tolerated Well Pain Scale: 0-10 Numeric Is Patient Pain Free? Yes WC - Visit Discharge Discharge Condition Stable Ambulatory Status Wheelchair Facility Type Home Health Charges/Coding Procedures Integumentary [id number]: [id number] Shila subq tissue 20 sq cm/< Assessment/Plan Assessment/Plan (1) Pressure injury of sacral region, stage 3: CODE(S): L89.153 - Pressure ulcer of sacral region, stage 3 (2) Diabetes mellitus: CODE(S): E11.9 - Type 2 diabetes mellitus without complications QUALIFIERS: Diabetes mellitus type: type 2 Diabetes mellitus complication status: with skin complications (3) Tobacco use disorder: CODE(S): F17.200 - Nicotine dependence, unspecified, uncomplicated (4) Paraplegia: CODE(S): G82.20 - Paraplegia, unspecified (5) Smoker: CODE(S): F17.200 - Nicotine dependence, unspecified, uncomplicated (6) Tobacco abuse counseling: CODE(S): Z71.6 - Tobacco abuse counseling (7) History of cholecystectomy: CODE(S): Z98.890 - Other specified postprocedural states; Z90.49 - Acquired absence of other specified parts of digestive tract (8) H/O gastric bypass: CODE(S): Z98.84 - Bariatric surgery status (9) Diabetes mellitus type 2, controlled: CODE(S): E11.9 - Type 2 diabetes mellitus without complications (10) COPD (chronic obstructive pulmonary disease): CODE(S): J44.9 - Chronic obstructive pulmonary disease, unspecified QUALIFIERS: COPD type: unspecified COPD Qualified Code(s): J44.9 - Chronic obstructive pulmonary disease, unspecified (11) GERD without esophagitis: CODE(S): K21.9 - Gastro-esophageal reflux disease without esophagitis (12) History of methicillin resistant staphylococcus aureus (MRSA): CODE(S): Z86.14 - Personal history of Methicillin resistant Staphylococcus aureus infection (13) S/P laminectomy with spinal fusion: CODE(S): Z98.1 - Arthrodesis status (14) Paraplegia: CODE(S): G82.20 - Paraplegia, unspecified PLAN: Plan This is a 64-year-old female paraplegic who has had a history of multiple lumbar spine surgeries in the past. She is currently undergoing management at our facility relative to a chronic pressure ulceration in the sacrococcygeal area. Offloading measures are to be continued. These have been discussed with the patient in detail. She lives with her daughter, who assists the patient in daily care. She also has home health nursing care and an independent aide. The patient is known to be a smoker, smoking approximately 3/4 pack/day. She has been strongly urged to discontinue her smoking habit. She has been advised that smoking may play a role in delayed wound healing. Nutritional optimization has been recommended. The patient has previously undergone consultation with a dietitian, and received dietary recommendations. She has again met with the dietitian today during her visit in the Wound Center. She has been encouraged to optimize her glycemic control and nutritional intake. We are to continue the use of moistened Lyudmila and [place] SAP applied topically to the wound on a daily basis. The patient and her daughter have been instructed in the appropriate means of application. There is evidence of peripheral epithelialization, signifying improvement in the status of the wound. There is also a small area of undermining superiorly, which may prove to be problematic in the future, and will be monitored serially. The patient is return in 2 weeks for reevaluation. Total time: 25 minutes
[2025-02-11 13:24] VITALS: BP 101/65; PULSE 83; RESP 18; TEMP 36.4
--- NOTE | 2025-02-12 10:09 | WC ---
PHOTO - SACRAL CLUSTER 02-11-25
--- NOTE | 2025-02-14 12:32 | PCM.WC.HP ---
History of Present Illness Date of Service: 02/11/25 Chief Complaint: Sacral pressure ulcer History of Wound: This is a 64 year old female who had back surgery in early September 2022 at [facility] and then went to rehab at [facility] after that. She had a aurelia replaced in her back. Before her surgery, she was not able to lie flat due to increased pain, so she spent most of her time in her wheelchair. Since her surgery, the pain has limited her ability to sit in her wheelchair. She presented with an ulcer to her sacrum. She was in the ED on 12/10/22 for increased wound drainage and was treated with Keflex. She does have home health to assist with dressing changes. Wound culture 12/26/22 positive for Proteus mirabilis, Enterococcus faecalis, Streptococcus agalactiae, Anaerobic cocci and Bacteroides fragilis. She was treated with Augmentin. Wound culture from 01/23/23 was positive for MRSA and Morganella morganii. The MRSA was treated with Doxycycline. Wound culture 04/03/23 positive for Proteus mirabilis, Enterococcus faecalis, and Anaerobic cocci. She was treated with Augmentin. Wound culture from 07/03/23 positive for Proteus mirabilis and Enterococcus faecalis which was treated with Augmentin. Wound culture was done on 08/23/23. It was negative. She had CT Pelvis on 09/20/23. It showed evidence of tissue defect in the medial aspect of the right buttock abutting the distal sacrum. This most likely represents an ulcerated pressure ulcer. Normal urinary bladder. Normal visualized small intestine. Moderate amount of fecal material is seen in the colon. There is no pelvic fluid. There is no pelvic mass lesion or lymphadenopathy. There is diffuse atherosclerotic calcification of the pelvic arteries. Phleboliths are seen in the pelvis. Normal abdominal wall. Extensive metallic streak artifacts due to fusion with intrapedicular screw and aurelia fixation the lower lumbar spine. Surgery 01/01/24 - Excision sacral pressure sore, Stage IV, with partial ostectomy for osteomyelitis. The procedure was performed by Dr. Costa Hodge. Pathology of sacral bone consistent with chronic osteomyelitis. Soft tissue and skin of sacral region showed ulceration with associated acute and chronic inflammation and granulation. Operative bone culture from 01/01/24 positive for Staphylococcus haemolyticus. She was treated for 6 weeks for positive bone cultures. Operative tissue culture from 01/01/24 positive for Corynebacterium striatum, Strep anginosus, Prevotella disiens, and Anaerobic cocci. She was treated with Doxycycline and Augmentin. [facility] Medical History Pressure injury of sacral region, stage 3 Diabetes mellitus type 2, controlled GERD without esophagitis COPD (chronic obstructive pulmonary disease) Tobacco abuse counseling History of methicillin resistant staphylococcus aureus (MRSA) Wears glasses Post-menopausal Depression Marijuana use Neuropathy Thyroid disease Arthritis Back pain Gastric reflux Smoker Paraplegia History of stress test Personal history of Methicillin resistant Staphylococcus aureus infection Diabetes mellitus Pressure injury of sacral region, stage 4 Weight loss Positive colorectal cancer screening using Cologuard test Witnessed seizure-like activity Ulcer of left lower leg Ulcer of right lower extremity with fat layer exposed Ulcer of left lower extremity with fat layer exposed Toxic encephalopathy Wound, open, abdominal wall, anterior Current tobacco use Chest pain, unspecified Bone lesion Intractable low back pain Major depressive disorder Chronic cluster headache, not intractable Age-related osteoporosis without current pathological fracture Primary generalized (osteo)arthritis Other intervertebral disc degeneration, lumbar region Hypothyroidism Anemia Muscle weakness Spinal stenosis, lumbar region without neurogenic claudication Neuromuscular scoliosis Chronic low back pain Paraplegia Morbid obesity HTN (hypertension) HLD (hyperlipidemia) Home Medications ?Medication ?Instructions ?Recorded ?Last Taken ?Type rugunpobujra-tgjfuyou-umfbnc 1 tab PO DAILY supplement 02/26/18 12/31/23 History tablet (Cerovite Senior) pantoprazole 40 mg tablet,delayed 40 mg PO BID PRN stomach 09/17/20 12/31/23 History release acetaminophen 500 mg tablet 500 mg PO Q6H PRN Pain 1-10 Or 10/08/20 12/31/23 History Fever albuterol sulfate 90 mcg/actuation 2 puff inhalation Q4H PRN PRN Sob 10/08/20 Unknown History aerosol inhaler &/Or Wheezing betamethasone valerate 0.1 % 1 applic topical BID PRN skin 01/15/21 12/31/23 Rx topical cream irritation #15 grams cetirizine 10 mg tablet 10 mg PO DAILY #30 tabs 01/15/21 12/31/23 Rx hydrocolloid dressing 4 X 4 #5 ea 09/07/21 Unknown Rx (DuoDERM CGF Adhesive Border Dressing) biotin 1 mg tablet 1 mg PO DAILY SUPPLEMENT 05/17/22 12/31/23 History calcium citrate 250 mg PO DAILY SUPPLEMENT 05/17/22 12/31/23 History cholecalciferol (vitamin D3) 25 25 mcg PO DAILY SUPPLEMENT 05/17/22 12/31/23 History mcg (1,000 unit) capsule cyanocobalamin (vitamin B-12) 1,000 mcg PO DAILY SUPPLEMENT 05/17/22 12/31/23 History 1,000 mcg tablet ferrous sulfate 325 mg (65 mg 325 mg PO DAILY SUPPLEMENT 05/17/22 12/31/23 History iron) tablet mupirocin 2 % topical ointment 1 applic topical DAILY PRN Wound 05/17/22 12/31/23 History Care gabapentin 300 mg capsule 300 mg PO BID 30 days #60 caps 05/19/22 01/01/24 Rx dextran 70-hypromellose 0.1 %-0.3 1 drp ophthalmic (eye) TID PRN dry 05/25/22 12/31/23 History % eye drops (Artificial Tears eye(s) (dextran 70-hypromellose)) ipratropium 20 mcg-albuterol 100 1 puff inhalation Q6H PRN copd 05/25/22 01/01/24 History mcg/actuation mist for inhalation (Combivent Respimat) nystatin 100,000 unit/gram topical 1 applic topical BID 10 days #30 07/08/22 12/31/23 Rx powder grams sennosides 8.6 mg tablet (Senna 8.6 mg PO .QOD STOOL 08/25/22 12/31/23 History Lax) lorazepam 0.5 mg tablet 0.5 mg PO BID PRN Anxiety 12/01/22 01/01/24 History methadone 5 mg tablet 10 mg PO BID 12/01/22 12/31/23 History naloxone 4 mg/actuation nasal 1 spray intranasal Q2M PRN opioid 12/01/22 Unknown History spray (Narcan) overdose oxycodone-acetaminophen 10 mg-325 1 tab PO Q3H PRN Pain 12/01/22 01/01/24 History mg tablet (Percocet) scopolamine base 1 mg over 3 days 1 patch transdermal Q3D PRN nausea 05/16/23 Unknown Rx transdermal patch and vomiting #10 ea lidocaine 5 % topical ointment 1 applic topical TID PRN pain #30 07/12/23 12/31/23 Rx grams levothyroxine 175 mcg tablet 175 mcg PO DAILY disorder of 12/26/23 12/31/23 History thyroid gland magnesium glycinate 100 mg (as 200 mg PO BID 12/26/23 12/31/23 History glycinate) tablet doxycycline hyclate 100 mg tablet 100 mg PO BID 14 days #28 tabs 01/02/24 Unknown Rx amoxicillin 875 mg-potassium 1 tab PO Q12H 14 days #28 tabs 01/24/24 Unknown Rx clavulanate 125 mg tablet valacyclovir 500 mg tablet 500 mg PO DAILY Check with primary 02/06/24 Unknown Rx (Valtrex) doctor #30 tabs amoxicillin 875 mg-potassium 1 tab PO BID 7 days #14 tabs 08/28/24 Unknown Rx clavulanate 125 mg tablet cefuroxime axetil 500 mg tablet 500 mg PO BID 09/11/24 Unknown History Allergy/AdvReac Type Severity Reaction Status Date / Time NSAIDS (Non-Steroidal Allergy GASTRIC Verified 08/28/24 14:03 Anti-Inflamma BYPASS ondansetron (From Zofran) AdvReac Other Verified 08/28/24 14:03 trazodone AdvReac Other Verified 08/28/24 14:03 Family History Father Diabetes Hypertension Myocardial infarction Alcoholism Brother Myocardial infarction Alcoholism Mother CVA (cerebral vascular accident) Surgical History S/P laminectomy with spinal fusion H/O dilation and curettage History of bilateral salpingo-oophorectomy S/P arthroscopic knee surgery s/p nerve spine surgery S/P lumbar spine operation s/p upper back surgery skin graft Hydradenitis History of cholecystectomy H/O gastric bypass Social History Smoking Status: Current every day smoker tobacco type: cigarettes alcohol intake: never substance use type: does not use caffeine: Yes what type of physical activity do you participate in: none seatbelt use: always do you feel safe at home: Yes additional social history: Vital Signs Vital Signs Vital Signs: Weight Weight: 149 lb 14.629 oz Physical Exam Const alert, oriented x3, no apparent distress, average body habitus and well nourished Constitutional Narrative: The patient's BMI is 24.2. The patient is paraplegic. General Appearance: cooperative and comfortable Orientation / Consciousness: awake, oriented to person, oriented to place and oriented to time Exam Limitations: physical limitations HEENT normocephalic and head/scalp atraumatic Head and Scalp: normal to inspection, normocephalic and atraumatic Face and Sinus: normal facial exam Nose: external nose normal External Ear: external ears normal Eyes EOMs intact bilaterally General Eye: normal appearance of both eyes Resp normal respiratory effort, normal air movement, no retractions and no use of accessory muscles Effort and Inspection: able to speak in complete sentences Extremity General Extremity: Negative for clubbing or cyanosis Skin Wound Narrative: A stage III sacrococcygeal pressure ulceration is noted. It extends through the cutaneous layers and into the subcutaneous tissues. Bone and fascia are not visible. The base of the ulcer demonstrates pink, healthy granulation tissue. There is evidence of increasing areas of peripheral epithelialization, suggesting progressive healing. The ulceration is decreasing in size. There is a small amount of bioburden. Ulcer margins are well beveled. There is no sign of infection or cellulitis. The periwound dermis is unremarkable. Dimensions are documented elsewhere. A long, well-healed, vertical midline incision is noted over the patient's lumbar spine. Neuro oriented x3 and CN's II-XII intact bilaterally Neuro Narrative: The patient is paraplegic. Sensorium / Orientation: awake, alert, oriented to person, oriented to place and oriented to time Speech: speech normal Psych cooperative and speech normal Appearance: grossly normal and appropriate Attitude: calm Activity / Motor Behavior: appropriate eye contact Speech: normal speech Mood & Affect: euthymic mood Attention / Concentration: attention grossly intact Debridement Note Debridement Note Wound debrided: Sacrococcygeal pressure ulceration Laterality: Not Applicable (Sacrococcygeal pressure ulceration in the midline) Wound Grade/Stage: Stage III Type of Debridement: Excisional debridement Anesthesia Used: 5% Lidocaine Gel and Cetacaine Depth: Down to and including healthy tissue and in the subcutaneous layer Percentage of wound debrided: 100 Instrument Used: 3mm curette Tissue Removed: Bioburden Severity: Fat Layer Exposed (muscle is exposed. bone is palpable but not exposed.) Amount of bleeding with debridement: Mild Bleeding Controlled with: Compression and gauze Patient tolerated procedure: Patient tolerated procedure well Post-Debridement Measurements and Additional Note: Post-Debridement Measurements/Treatment WC - Nurse 1 - General Ulcer Assessment Start: 01/28/25 13:46 Freq: Status: Active Protocol: TAISHA Activity Type Activity Date Activity User E-sign Co-sign Detail Recorded Client Recorded Date Recorded By Document 01/28/25 13:46 [facility] [id number] 01/28/25 13:47 [facility] Document 02/11/25 13:24 [facility] [id number] 02/11/25 13:32 BMF 01/28/25 02/11/25 13:46 13:24 WC - Today's Visit Information Type of service Follow-up Visit Follow-up Visit (Physician/[employer] (Physician/[employer] ) ) Arrival Mode Wheelchair Wheelchair Transfer Assistance Other Other Transfer Assist (Other) 1 stand by Patient Identification Verified (Name & Yes Yes ) Patient Requires Transmission-Based No No Precautions Vital Signs Temperature (97.8 F-99.1 F) 96.9 F L 97.6 F L Temperature Source Temporal Temporal Pulse Rate (60-100) 66 83 Pulse Location Monitor Monitor Respiratory Rate (12-18) 16 18 Respiratory rate source Observation Observation Oxygen Delivery Method Room Air Room Air Blood Pressure (90/60-120/80) 169/91 H 101/65 Blood Pressure Mean 117 77 Source Monitor Monitor Position Sitting Sitting Blood Pressure Location Left Arm Left Arm History Since Last Visit- (Skip if this is Patient's initial visit) Have you changed medications since your No No last visit? Any new allergies or adverse reactions No No Had a fall/change in ADL's that may No No increase risk of falls Signs or symptoms of abuse and/or No No neglect since last visit Have you been in the hospital since your No No last visit? Has dressing in place as prescribed Yes Yes Has compression in place as prescribed N/A N/A Has offloadiing in place as prescribed N/A Yes Experienced any changes in pain level or No No management Left Footwear Slipper Slipper Right Footwear Slipper Slipper Pain Scale: 0-10 Numeric Is Patient Pain Free? Yes Yes SCOTTY - Nurse 1 - General Ulcer Measurement Start: 01/28/25 13:46 Freq: Status: Active Protocol: Activity Type Activity Date Activity User E-sign Co-sign Detail Recorded Client Recorded Date Recorded By Document 01/28/25 13:46 [facility] [id number] 01/28/25 13:47 [facility] Document 02/11/25 13:24 [facility] [id number] 02/11/25 13:32 [facility] 01/28/25 02/11/25 13:46 13:24 Wound Center Nurse 1 #14- L SACRAL POST OP cluster -Combined with other wound No No -Current Size (cm) - Length 2.3 3.6 -Current Size (cm) - Width 0.7 0.6 -Current Size (cm) - Depth 0.1 0.1 -Total Square Cm 1.61 2.16 -Date of Last Picture (Recall this 01/28/25 02/11/25 field) -Photo Taken Yes Yes -Epithelialization Small 1-33% -Tunneling No No -Undermining/Tunneling No No -Circular Undermining No No -Exudate Amt Medium Medium -Exudate Type Serosanguineous Serosanguineous -Wound Margin Thickened & Thickened & Rolled Under Rolled Under -Granulation Amt Large (67-100%) Large (67-100%) -Granulation Quality Red Red -Slough/Fibrin Yes Yes -Necrosis Amt Small (1-33%) Small (1-33%) -Necrotic Tissue Type Adherent Slough Adherent Slough -Texture (Vivi-wound Skin Appearance) Assessed, Assessed, Scarring Scarring -Moisture (Vivi-wound Skin Appearance) Assessed Assessed, Maceration -Color (Vivi-wound Skin Appearance) Assessed Assessed -Temperature (Vivi-wound Skin No Abnormality No Abnormality Appearance) (Pt Warm) (Pt Warm) -Tenderness on Palpation (Vivi-wound No No Skin Appearance) -Ulcer Cleansing Rinsed/ Rinsed/ Irrigated with Irrigated with Saline Saline -Foul Odor after Cleansing No No -Anesthetic Used 5% Lidocaine 5% Lidocaine Gel Gel WC - Nurse 2 - General Ulcer CM Notes Start: 01/28/25 13:46 Freq: Status: Active Protocol: Activity Type Activity Date Activity User E-sign Co-sign Detail Recorded Client Recorded Date Recorded By Document 01/28/25 14:11 [id number] 01/28/25 14:13 DS Document 02/11/25 14:26 [id number] 02/11/25 14:28 DS 01/28/25 02/11/25 14:11 14:26 Wound Center Nurse 2 #14- L SACRAL POST OP cluster -Time 14:11 14:27 -Correct Patient Yes Yes -Correct Side, Site, Position Yes Yes -Correct Procedure Yes Yes -Procedure Performed Yes Yes -Type of Procedure Debridement Debridement -Clinical Debridement Subcutaneous Subcutaneous -Tissue Removed Subcutaneous Subcutaneous -Post Debridement (cm) - Length 1.0 3.5 -Post Debridement (cm) - Width 0.5 0.3 -Post Debridement (cm) - Depth 0.1 0.1 -Total Square (Post) (cm) 0.50 1.05 -Area of Debridement (cm) - Length 1.0 3.5 -Area of Debridement (cm) - Width 0.5 0.3 -Total Square (Area) (cm) 0.50 1.05 -Tunneling No No -Undermining/Tunneling No No -Circular Undermining No No -Wound/Ulcer Outcome Not Healed Not Healed -Foul Odor after Cleansing No No -Bioengineered Tissue No No -Bleeding Controlled with Pressure Pressure -Treatment Response Procedure Procedure Tolerated Well Tolerated Well -Debridement - Subq, 1st 20sq cm Yes Yes Pain Scale: 0-10 Numeric Is Patient Pain Free? Yes Yes - Nurse 3 - General Ulcer D/C NN Start: 01/28/25 13:46 Freq: Status: Active Protocol: Activity Type Activity Date Activity User E-sign Co-sign Detail Recorded Client Recorded Date Recorded By Document 01/28/25 14:18 [facility] [id number] 01/28/25 14:19 [facility] Document 02/11/25 14:34 [id number] 02/11/25 14:35 01/28/25 02/11/25 14:18 14:34 Wound Care Center Nurse 3 #14- L SACRAL POST OP cluster -Ulcer Cleansing Rinsed/ Irrigated with Saline -Foul Odor after Cleansing No -Primary Dressing Applied Promogran Optilok 5x5 1/2 Eneida Matter, ,Promogran Silicone Border Eneida Matter Foam 4x4 -Other Dressing moistened eneida -Primary Dressing Covered/Secured with Dry Gauze -Optilok 5x5 1/2 1 -Promogran Eneida Matter 1 1 -Silicone Border Foam 4x4 1 Treatment Response Procedure Tolerated Well Pain Scale: 0-10 Numeric Is Patient Pain Free? Yes Yes - Visit Discharge Discharge Condition Stable Stable Ambulatory Status Wheelchair Wheelchair Transportation Private Auto Medication Reconcilliation completed & No provided to patient/care provider Clinical Summary of Care Provided Yes Facility Type Home Health Charges/Coding Procedures Integumentary [id number]: [id number] Shila subq tissue 20 sq cm/< Assessment/Plan Assessment/Plan (1) Pressure injury of sacral region, stage 3: CODE(S): L89.153 - Pressure ulcer of sacral region, stage 3 (2) Diabetes mellitus: CODE(S): E11.9 - Type 2 diabetes mellitus without complications QUALIFIERS: Diabetes mellitus type: type 2 Diabetes mellitus complication status: with skin complications (3) Tobacco use disorder: CODE(S): F17.200 - Nicotine dependence, unspecified, uncomplicated (4) Paraplegia: CODE(S): G82.20 - Paraplegia, unspecified (5) Smoker: CODE(S): F17.200 - Nicotine dependence, unspecified, uncomplicated (6) Tobacco abuse counseling: CODE(S): Z71.6 - Tobacco abuse counseling (7) History of cholecystectomy: CODE(S): Z98.890 - Other specified postprocedural states; Z90.49 - Acquired absence of other specified parts of digestive tract (8) H/O gastric bypass: CODE(S): Z98.84 - Bariatric surgery status (9) Diabetes mellitus type 2, controlled: CODE(S): E11.9 - Type 2 diabetes mellitus without complications (10) COPD (chronic obstructive pulmonary disease): CODE(S): J44.9 - Chronic obstructive pulmonary disease, unspecified QUALIFIERS: COPD type: unspecified COPD Qualified Code(s): J44.9 - Chronic obstructive pulmonary disease, unspecified (11) GERD without esophagitis: CODE(S): K21.9 - Gastro-esophageal reflux disease without esophagitis (12) History of methicillin resistant staphylococcus aureus (MRSA): CODE(S): Z86.14 - Personal history of Methicillin resistant Staphylococcus aureus infection (13) S/P laminectomy with spinal fusion: CODE(S): Z98.1 - Arthrodesis status (14) Paraplegia: CODE(S): G82.20 - Paraplegia, unspecified PLAN: Plan This is a 64-year-old female paraplegic who has had a history of multiple lumbar spine surgeries in the past. She is currently undergoing management at our facility relative to a chronic pressure ulceration in the sacrococcygeal area. Offloading measures are to be continued. These have been discussed with the patient in detail. She lives with her daughter, who assists the patient in daily care. She also has home health nursing care and an independent aide. The patient is known to be a smoker, smoking approximately 3/4 pack/day. She has been strongly urged to discontinue her smoking habit, but continues to smoke. She has been advised that smoking may play a role in delayed wound healing. Nutritional optimization has been recommended. The patient has previously undergone consultation with a dietitian, and received dietary recommendations on several occasions. She has been encouraged to optimize her glycemic control and nutritional intake. We are to continue the use of moistened Eneida and Ganado SAP applied topically to the wound on a daily basis. The patient and her daughter have been instructed in the appropriate means of application. There is evidence of peripheral epithelialization, and the ulceration continues to decrease in size. The patient is return in 2 weeks for reevaluation. Total time: 24 minutes
== END 2025-02-20 23:59 | disposition home or self-care (01) ==
LOC: WC 13:30
PROVIDERS: PCP Internal Medicine; Referring Provider Nurse Practitioner Family; Visit Provider Surgery
DX: L89.153 Pressure ulcer of sacral region, stage 3 (principal); G82.20 Paraplegia, unspecified; J44.9 Chronic obstructive pulmonary disease, unspecified; E11.40 Type 2 diabetes mellitus with diabetic neuropathy, unspecified; I10 Essential (primary) hypertension; K21.9 Gastro-esophageal reflux disease without esophagitis; G89.29 Other chronic pain; Z98.1 Arthrodesis status; F17.210 Nicotine dependence, cigarettes, uncomplicated; Z79.899 Other long term (current) drug therapy; Z98.84 Bariatric surgery status
CPT/HCPCS: 11042; 97803

== ENCOUNTER 2025-03-11 13:30 | Outpatient (RCR) | payer MEDICARE, MEDICAID, SELFPAY ==
[2025-02-25 13:01] VITALS: BP 107/80; PULSE 102; RESP 16; TEMP 37
--- NOTE | 2025-02-26 08:52 | WC ---
PHOTO: SACRAL 02.25.25
--- NOTE | 2025-02-26 14:49 | PCM.WC.HP ---
History of Present Illness Date of Service: 02/25/25 Chief Complaint: Sacral pressure ulcer History of Wound: This is a 64 year old female who had back surgery in early September 2022 at [facility] and then went to rehab at [facility] after that. She had a aurelia replaced in her back. Before her surgery, she was not able to lie flat due to increased pain, so she spent most of her time in her wheelchair. Since her surgery, the pain has limited her ability to sit in her wheelchair. She presented with an ulcer to her sacrum. She was in the ED on 12/10/22 for increased wound drainage and was treated with Keflex. She does have home health to assist with dressing changes. Wound culture 12/26/22 positive for Proteus mirabilis, Enterococcus faecalis, Streptococcus agalactiae, Anaerobic cocci and Bacteroides fragilis. She was treated with Augmentin. Wound culture from 01/23/23 was positive for MRSA and Morganella morganii. The MRSA was treated with Doxycycline. Wound culture 04/03/23 positive for Proteus mirabilis, Enterococcus faecalis, and Anaerobic cocci. She was treated with Augmentin. Wound culture from 07/03/23 positive for Proteus mirabilis and Enterococcus faecalis which was treated with Augmentin. Wound culture was done on 08/23/23. It was negative. She had CT Pelvis on 09/20/23. It showed evidence of tissue defect in the medial aspect of the right buttock abutting the distal sacrum. This most likely represents an ulcerated pressure ulcer. Normal urinary bladder. Normal visualized small intestine. Moderate amount of fecal material is seen in the colon. There is no pelvic fluid. There is no pelvic mass lesion or lymphadenopathy. There is diffuse atherosclerotic calcification of the pelvic arteries. Phleboliths are seen in the pelvis. Normal abdominal wall. Extensive metallic streak artifacts due to fusion with intrapedicular screw and aurelia fixation the lower lumbar spine. Surgery 01/01/24 - Excision sacral pressure sore, Stage IV, with partial ostectomy for osteomyelitis. The procedure was performed by Dr. Costa Hodge. Pathology of sacral bone consistent with chronic osteomyelitis. Soft tissue and skin of sacral region showed ulceration with associated acute and chronic inflammation and granulation. Operative bone culture from 01/01/24 positive for Staphylococcus haemolyticus. She was treated for 6 weeks for positive bone cultures. Operative tissue culture from 01/01/24 positive for Corynebacterium striatum, Strep anginosus, Prevotella disiens, and Anaerobic cocci. She was treated with Doxycycline and Augmentin. [facility] Medical History Pressure injury of sacral region, stage 3 Diabetes mellitus type 2, controlled GERD without esophagitis COPD (chronic obstructive pulmonary disease) Tobacco abuse counseling History of methicillin resistant staphylococcus aureus (MRSA) Wears glasses Post-menopausal Depression Marijuana use Neuropathy Thyroid disease Arthritis Back pain Gastric reflux Smoker Paraplegia History of stress test Personal history of Methicillin resistant Staphylococcus aureus infection Diabetes mellitus Pressure injury of sacral region, stage 4 Weight loss Positive colorectal cancer screening using Cologuard test Witnessed seizure-like activity Ulcer of left lower leg Ulcer of right lower extremity with fat layer exposed Ulcer of left lower extremity with fat layer exposed Toxic encephalopathy Wound, open, abdominal wall, anterior Current tobacco use Chest pain, unspecified Bone lesion Intractable low back pain Major depressive disorder Chronic cluster headache, not intractable Age-related osteoporosis without current pathological fracture Primary generalized (osteo)arthritis Other intervertebral disc degeneration, lumbar region Hypothyroidism Anemia Muscle weakness Spinal stenosis, lumbar region without neurogenic claudication Neuromuscular scoliosis Chronic low back pain Paraplegia Morbid obesity HTN (hypertension) HLD (hyperlipidemia) Home Medications ?Medication ?Instructions ?Recorded ?Last Taken ?Type [id number] 1 tab PO DAILY supplement 02/26/18 12/31/23 History tablet (Cerovite Senior) pantoprazole 40 mg tablet,delayed 40 mg PO BID PRN stomach 09/17/20 12/31/23 History release acetaminophen 500 mg tablet 500 mg PO Q6H PRN Pain 1-10 Or 10/08/20 12/31/23 History Fever albuterol sulfate 90 mcg/actuation 2 puff inhalation Q4H PRN PRN Sob 10/08/20 Unknown History aerosol inhaler &/Or Wheezing betamethasone valerate 0.1 % 1 applic topical BID PRN skin 01/15/21 12/31/23 Rx topical cream irritation #15 grams cetirizine 10 mg tablet 10 mg PO DAILY #30 tabs 01/15/21 12/31/23 Rx hydrocolloid dressing 4 X 4 #5 ea 09/07/21 Unknown Rx (DuoDERM CGF Adhesive Border Dressing) biotin 1 mg tablet 1 mg PO DAILY SUPPLEMENT 05/17/22 12/31/23 History calcium citrate 250 mg PO DAILY SUPPLEMENT 05/17/22 12/31/23 History cholecalciferol (vitamin D3) 25 25 mcg PO DAILY SUPPLEMENT 05/17/22 12/31/23 History mcg (1,000 unit) capsule cyanocobalamin (vitamin B-12) 1,000 mcg PO DAILY SUPPLEMENT 05/17/22 12/31/23 History 1,000 mcg tablet ferrous sulfate 325 mg (65 mg 325 mg PO DAILY SUPPLEMENT 05/17/22 12/31/23 History iron) tablet mupirocin 2 % topical ointment 1 applic topical DAILY PRN Wound 05/17/22 12/31/23 History Care gabapentin 300 mg capsule 300 mg PO BID 30 days #60 caps 05/19/22 01/01/24 Rx dextran 70-hypromellose 0.1 %-0.3 1 drp ophthalmic (eye) TID PRN dry 05/25/22 12/31/23 History % eye drops (Artificial Tears eye(s) (dextran 70-hypromellose)) ipratropium 20 mcg-albuterol 100 1 puff inhalation Q6H PRN copd 05/25/22 01/01/24 History mcg/actuation mist for inhalation (Combivent Respimat) nystatin 100,000 unit/gram topical 1 applic topical BID 10 days #30 07/08/22 12/31/23 Rx powder grams sennosides 8.6 mg tablet (Senna 8.6 mg PO .QOD STOOL 08/25/22 12/31/23 History Lax) lorazepam 0.5 mg tablet 0.5 mg PO BID PRN Anxiety 12/01/22 01/01/24 History methadone 5 mg tablet 10 mg PO BID 12/01/22 12/31/23 History naloxone 4 mg/actuation nasal 1 spray intranasal Q2M PRN opioid 12/01/22 Unknown History spray (Narcan) overdose oxycodone-acetaminophen 10 mg-325 1 tab PO Q3H PRN Pain 12/01/22 01/01/24 History mg tablet (Percocet) scopolamine base 1 mg over 3 days 1 patch transdermal Q3D PRN nausea 05/16/23 Unknown Rx transdermal patch and vomiting #10 ea lidocaine 5 % topical ointment 1 applic topical TID PRN pain #30 07/12/23 12/31/23 Rx grams levothyroxine 175 mcg tablet 175 mcg PO DAILY disorder of 12/26/23 12/31/23 History thyroid gland magnesium glycinate 100 mg (as 200 mg PO BID 12/26/23 12/31/23 History glycinate) tablet doxycycline hyclate 100 mg tablet 100 mg PO BID 14 days #28 tabs 01/02/24 Unknown Rx amoxicillin 875 mg-potassium 1 tab PO Q12H 14 days #28 tabs 01/24/24 Unknown Rx clavulanate 125 mg tablet valacyclovir 500 mg tablet 500 mg PO DAILY Check with primary 02/06/24 Unknown Rx (Valtrex) doctor #30 tabs amoxicillin 875 mg-potassium 1 tab PO BID 7 days #14 tabs 08/28/24 Unknown Rx clavulanate 125 mg tablet cefuroxime axetil 500 mg tablet 500 mg PO BID 09/11/24 Unknown History Allergy/AdvReac Type Severity Reaction Status Date / Time NSAIDS (Non-Steroidal Allergy GASTRIC Verified 08/28/24 14:03 Anti-Inflamma BYPASS ondansetron (From Zofran) AdvReac Other Verified 08/28/24 14:03 trazodone AdvReac Other Verified 08/28/24 14:03 Family History Father Diabetes Hypertension Myocardial infarction Alcoholism Brother Myocardial infarction Alcoholism Mother CVA (cerebral vascular accident) Surgical History S/P laminectomy with spinal fusion H/O dilation and curettage History of bilateral salpingo-oophorectomy S/P arthroscopic knee surgery s/p nerve spine surgery S/P lumbar spine operation s/p upper back surgery skin graft Hydradenitis History of cholecystectomy H/O gastric bypass Social History Smoking Status: Current every day smoker tobacco type: cigarettes alcohol intake: never substance use type: does not use caffeine: Yes what type of physical activity do you participate in: none seatbelt use: always do you feel safe at home: Yes additional social history: Physical Exam Const alert, oriented x3, no apparent distress and average body habitus Constitutional Narrative: The patient's BMI is 24.2. The patient is paraplegic. General Appearance: cooperative and comfortable Orientation / Consciousness: awake, oriented to person, oriented to place and oriented to time Exam Limitations: physical limitations HEENT normocephalic and head/scalp atraumatic Head and Scalp: normal to inspection, normocephalic and atraumatic Face and Sinus: normal facial exam Nose: external nose normal External Ear: external ears normal Eyes EOMs intact bilaterally General Eye: normal appearance of both eyes Resp normal respiratory effort, normal air movement, no retractions and no use of accessory muscles Effort and Inspection: able to speak in complete sentences Extremity General Extremity: Negative for clubbing or cyanosis Skin Wound Narrative: A stage III sacrococcygeal pressure ulceration is noted. It extends through the cutaneous layers and into the subcutaneous tissues. Bone and fascia are not visible. The base of the ulcer demonstrates pink, healthy granulation tissue, and nearly complete epithelialization of the ulcer bed. The ulceration is decreasing in size, and is nearly healed. There is a small amount of bioburden. Ulcer margins are well beveled. There is no sign of infection or cellulitis. The periwound dermis is unremarkable. Dimensions are documented elsewhere. A long, well-healed, vertical midline incision is noted over the patient's lumbar spine. Neuro oriented x3 and CN's II-XII intact bilaterally Neuro Narrative: The patient is paraplegic. Sensorium / Orientation: awake, alert, oriented to person, oriented to place and oriented to time Speech: speech normal Psych cooperative and speech normal Appearance: grossly normal and appropriate Attitude: calm Activity / Motor Behavior: appropriate eye contact Speech: normal speech Mood & Affect: euthymic mood Attention / Concentration: attention grossly intact Debridement Note Debridement Note Wound debrided: Sacrococcygeal pressure ulceration Laterality: Not Applicable (Sacrococcygeal pressure ulceration in the midline) Wound Grade/Stage: Stage III Type of Debridement: Excisional debridement Anesthesia Used: 5% Lidocaine Gel Depth: Down to and including healthy tissue and in the subcutaneous layer Percentage of wound debrided: 100 Instrument Used: 3mm curette Tissue Removed: Bioburden Severity: Fat Layer Exposed (muscle is exposed. bone is palpable but not exposed.) Amount of bleeding with debridement: Mild Bleeding Controlled with: Compression and gauze Patient tolerated procedure: Patient tolerated procedure well Post-Debridement Measurements and Additional Note: Post-Debridement Measurements/Treatment WC - Nurse 1 - General Ulcer Assessment Start: 02/25/25 13:01 Freq: Status: Active Protocol: TAISHA Activity Type Activity Date Activity User E-sign Co-sign Detail Recorded Client Recorded Date Recorded By Document 02/25/25 13:01 ELLIE [id number] 02/25/25 13:07 ELLIE 02/25/25 13:01 - Today's Visit Information Type of service Follow-up Visit (Physician/IT MANAGER ) Arrival Mode Wheelchair Transfer Assistance Manual Patient Requires Transmission-Based No Precautions Vital Signs Temperature (97.8 F-99.1 F) 98.6 F Temperature Source Temporal Pulse Rate (60-100) 102 H Pulse Location Monitor Respiratory Rate (12-18) 16 Respiratory rate source Observation Blood Pressure (90/60-120/80) 107/80 Blood Pressure Mean 89 Source Monitor Position Sitting Blood Pressure Location Left Arm History Since Last Visit- (Skip if this is Patient's initial visit) Have you changed medications since your Yes last visit? Any new allergies or adverse reactions No Had a fall/change in ADL's that may No increase risk of falls Signs or symptoms of abuse and/or No neglect since last visit Have you been in the hospital since your No last visit? Has dressing in place as prescribed Yes Has compression in place as prescribed N/A Has offloadiing in place as prescribed Yes Experienced any changes in pain level or No management Left Footwear No Footwear Right Footwear No Footwear Pain Scale: 0-10 Numeric Is Patient Pain Free? Yes - Nurse 1 - General Ulcer Measurement Start: 02/25/25 13:01 Freq: Status: Active Protocol: Activity Type Activity Date Activity User E-sign Co-sign Detail Recorded Client Recorded Date Recorded By Document 02/25/25 13:01 ELLIE [id number] 02/25/25 13:07 02/25/25 13:01 Wound Center Nurse 1 #14- L SACRAL POST OP cluster -Combined with other wound No -Current Size (cm) - Length 3 -Current Size (cm) - Width 1 -Current Size (cm) - Depth 0.1 -Total Square Cm 3 -Photo Taken Yes -Epithelialization Small 1-33% -Tunneling No -Undermining/Tunneling No -Circular Undermining No -Exudate Amt Small -Exudate Type Serosanguineous -Wound Margin Flat & Intact -Granulation Amt Large (67-100%) -Granulation Quality [place] -Slough/Fibrin Yes -Necrosis Amt Small (1-33%) -Necrotic Tissue Type Adherent Slough -Structure Exposed N/A -Texture (Vivi-wound Skin Appearance) Assessed -Moisture (Vivi-wound Skin Appearance) Assessed,Dry/ Scaly -Color (Vivi-wound Skin Appearance) Assessed -Temperature (Vivi-wound Skin No Abnormality Appearance) (Pt Warm) -Tenderness on Palpation (Vivi-wound No Skin Appearance) -Ulcer Cleansing Rinsed/ Irrigated with Saline -Foul Odor after Cleansing No -Anesthetic Used 5% Lidocaine Gel Lower Limb Edema Present NA SCOTTY - Nurse 2 - General Ulcer CM Notes Start: 02/25/25 13:01 Freq: Status: Active Protocol: Activity Type Activity Date Activity User E-sign Co-sign Detail Recorded Client Recorded Date Recorded By Document 02/25/25 13:21 DS [id number] 02/25/25 13:24 DS 02/25/25 13:21 Wound Center Nurse 2 #14- L SACRAL POST OP cluster -Time 13:21 -Correct Patient Yes -Correct Side, Site, Position Yes -Correct Procedure Yes -Procedure Performed Yes -Type of Procedure Debridement -Clinical Debridement Subcutaneous -Tissue Removed Subcutaneous -Post Debridement (cm) - Length 0.4 -Post Debridement (cm) - Width 0.7 -Post Debridement (cm) - Depth 0.1 -Total Square (Post) (cm) 0.28 -Area of Debridement (cm) - Length 0.4 -Area of Debridement (cm) - Width 0.7 -Total Square (Area) (cm) 0.28 -Tunneling No -Undermining/Tunneling No -Circular Undermining No -Wound/Ulcer Outcome Not Healed -Ulcer Cleansing gauze -Foul Odor after Cleansing No -Bioengineered Tissue No -Bleeding Controlled with Pressure -Treatment Response Procedure Tolerated Well -Debridement - Subq, 1st 20sq cm Yes Pain Scale: 0-10 Numeric Is Patient Pain Free? Yes - Nurse 3 - General Ulcer D/C NN Start: 02/25/25 13:01 Freq: Status: Active Protocol: Activity Type Activity Date Activity User E-sign Co-sign Detail Recorded Client Recorded Date Recorded By Document 02/25/25 13:41 ELLIE [id number] 02/25/25 13:42 JF 02/25/25 13:41 Wound Care Center Nurse 3 #14- L SACRAL POST OP cluster -Ulcer Cleansing Rinsed/ Irrigated with Saline -Foul Odor after Cleansing No -Primary Dressing Applied Promogran Lyudmila Matter, Silicone Border Foam 6x6 -Promogran Lyudmila Matter 1 -Silicone Border Foam 6x6 1 Pain Scale: 0-10 Numeric Is Patient Pain Free? Yes WC - Visit Discharge Discharge Condition Stable Ambulatory Status Wheelchair Transportation Private Auto Accompanied by daughter Medication Reconcilliation completed & Yes provided to patient/care provider Clinical Summary of Care Provided Yes Charges/Coding Procedures Integumentary [id number]: [id number] Shila subq tissue 20 sq cm/< Assessment/Plan Assessment/Plan (1) Pressure injury of sacral region, stage 3: CODE(S): L89.153 - Pressure ulcer of sacral region, stage 3 (2) Diabetes mellitus: CODE(S): E11.9 - Type 2 diabetes mellitus without complications QUALIFIERS: Diabetes mellitus type: type 2 Diabetes mellitus complication status: with skin complications (3) Tobacco use disorder: CODE(S): F17.200 - Nicotine dependence, unspecified, uncomplicated (4) Paraplegia: CODE(S): G82.20 - Paraplegia, unspecified (5) Smoker: CODE(S): F17.200 - Nicotine dependence, unspecified, uncomplicated (6) Tobacco abuse counseling: CODE(S): Z71.6 - Tobacco abuse counseling (7) History of cholecystectomy: CODE(S): Z98.890 - Other specified postprocedural states; Z90.49 - Acquired absence of other specified parts of digestive tract (8) H/O gastric bypass: CODE(S): Z98.84 - Bariatric surgery status (9) Diabetes mellitus type 2, controlled: CODE(S): E11.9 - Type 2 diabetes mellitus without complications (10) COPD (chronic obstructive pulmonary disease): CODE(S): J44.9 - Chronic obstructive pulmonary disease, unspecified QUALIFIERS: COPD type: unspecified COPD Qualified Code(s): J44.9 - Chronic obstructive pulmonary disease, unspecified (11) GERD without esophagitis: CODE(S): K21.9 - Gastro-esophageal reflux disease without esophagitis (12) History of methicillin resistant staphylococcus aureus (MRSA): CODE(S): Z86.14 - Personal history of Methicillin resistant Staphylococcus aureus infection (13) S/P laminectomy with spinal fusion: CODE(S): Z98.1 - Arthrodesis status (14) Paraplegia: CODE(S): G82.20 - Paraplegia, unspecified PLAN: Plan This is a 64-year-old female paraplegic who has had a history of multiple lumbar spine surgeries in the past. She is currently undergoing management at our facility relative to a chronic pressure ulceration in the sacrococcygeal area. Offloading measures are to be continued. These have been discussed with the patient in detail. She lives with her daughter, who assists the patient in daily care. She also has home health nursing care and an independent aide. The patient is known to be a smoker, smoking approximately 3/4 pack/day. She has been strongly urged to discontinue her smoking habit, but continues to smoke. She has been advised that smoking may play a role in delayed wound healing. Nutritional optimization has been recommended. The patient has previously undergone consultation with a dietitian, and received dietary recommendations on several occasions. She has been encouraged to optimize her glycemic control and nutritional intake. We are to continue the use of moistened Lyudmila and [place] SAP applied topically to the wound on a daily basis. The patient and her daughter have been instructed in the appropriate means of application. There is evidence of peripheral epithelialization, and the ulceration continues to decrease in size. The patient is return in 2 weeks for reevaluation. The patient is excited, as she expects to receive delivery of her new, mechanized wheelchair within the next several days. Total time: 25 minutes
[2025-03-11 13:16] VITALS: BP 116/83; PULSE 87; RESP 18; TEMP 36.3
--- NOTE | 2025-03-12 12:11 | WC ---
PHOTO-SACRAL CLUSTER 03/11/25
--- NOTE | 2025-03-13 13:01 | HP.PCM_ITS ---
History of Present Illness Date of Service: 03/11/25 Chief Complaint: Sacral pressure ulcer History of Wound: This is a 64 year old female who had back surgery in early September 2022 at [facility] and then went to rehab at [place] after that. She had a aurelia replaced in her back. Before her surgery, she was not able to lie flat due to increased pain, so she spent most of her time in her wheelchair. Since her surgery, the pain has limited her ability to sit in her wheelchair. She presented with an ulcer to her sacrum. She was in the ED on 12/10/22 for increased wound drainage and was treated with Keflex. She does have home health to assist with dressing changes. Wound culture 12/26/22 positive for Proteus mirabilis, Enterococcus faecalis, Streptococcus agalactiae, Anaerobic cocci and Bacteroides fragilis. She was treated with Augmentin. Wound culture from 01/23/23 was positive for MRSA and Morganella morganii. The MRSA was treated with Doxycycline. Wound culture 04/03/23 positive for Proteus mirabilis, Enterococcus faecalis, and Anaerobic cocci. She was treated with Augmentin. Wound culture from 07/03/23 positive for Proteus mirabilis and Enterococcus faecalis which was treated with Augmentin. Wound culture was done on 08/23/23. It was negative. She had CT Pelvis on 09/20/23. It showed evidence of tissue defect in the medial aspect of the right buttock abutting the distal sacrum. This most likely represents an ulcerated pressure ulcer. Normal urinary bladder. Normal visualized small intestine. Moderate amount of fecal material is seen in the colon. There is no pelvic fluid. There is no pelvic mass lesion or lymphadenopathy. There is diffuse atherosclerotic calcification of the pelvic arteries. Phleboliths are seen in the pelvis. Normal abdominal wall. Extensive metallic streak artifacts due to fusion with intrapedicular screw and aurelia fixation the lower lumbar spine. Surgery 01/01/24 - Excision sacral pressure sore, Stage IV, with partial ostectomy for osteomyelitis. The procedure was performed by Dr. Costa Hodge. Pathology of sacral bone consistent with chronic osteomyelitis. Soft tissue and skin of sacral region showed ulceration with associated acute and chronic inflammation and granulation. Operative bone culture from 01/01/24 positive for Staphylococcus haemolyticus. She was treated for 6 weeks for positive bone cultures. Operative tissue culture from 01/01/24 positive for Corynebacterium striatum, Strep anginosus, Prevotella disiens, and Anaerobic cocci. She was treated with Doxycycline and Augmentin. [facility] Medical History Pressure injury of sacral region, stage 3 Diabetes mellitus type 2, controlled GERD without esophagitis COPD (chronic obstructive pulmonary disease) Tobacco abuse counseling History of methicillin resistant staphylococcus aureus (MRSA) Wears glasses Post-menopausal Depression Marijuana use Neuropathy Thyroid disease Arthritis Back pain Gastric reflux Smoker Paraplegia History of stress test Personal history of Methicillin resistant Staphylococcus aureus infection Diabetes mellitus Pressure injury of sacral region, stage 4 Weight loss Positive colorectal cancer screening using Cologuard test Witnessed seizure-like activity Ulcer of left lower leg Ulcer of right lower extremity with fat layer exposed Ulcer of left lower extremity with fat layer exposed Toxic encephalopathy Wound, open, abdominal wall, anterior Current tobacco use Chest pain, unspecified Bone lesion Intractable low back pain Major depressive disorder Chronic cluster headache, not intractable Age-related osteoporosis without current pathological fracture Primary generalized (osteo)arthritis Other intervertebral disc degeneration, lumbar region Hypothyroidism Anemia Muscle weakness Spinal stenosis, lumbar region without neurogenic claudication Neuromuscular scoliosis Chronic low back pain Paraplegia Morbid obesity HTN (hypertension) HLD (hyperlipidemia) Home Medications ?Medication ?Instructions ?Recorded ?Last Taken ?Type miymcycbuydq-[id number] 1 tab PO DAILY supplement 02/26/18 12/31/23 History tablet (Cerovite Senior) pantoprazole 40 mg tablet,delayed 40 mg PO BID PRN sto mach 09/17/20 12/31/23 History release acetaminophen 500 mg tablet 500 mg PO Q6H PRN Pain 1-1 0 Or 10/08/20 12/31/23 History Fever albuterol sulfate 90 mcg/actuation 2 puff inhalation Q 4H PRN PRN Sob 10/08/20 Unknown History aerosol inhaler &/Or Wheezing betamethasone valerate 0.1 % 1 applic topical BID PRN skin 01/15/21 12/31/23 Rx topical cream irritation #15 grams cetirizine 10 mg tablet 10 mg PO DAILY #30 tabs 12/2312/31/23 Rx hydrocolloid dressing 4 X 4 #5 ea 09/07/21 Unknown R x (DuoDERM CGF Adhesive Border Dressing) biotin 1 mg tablet 1 mg PO DAILY SUPPLEMENT 12/31/23 History calcium citrate 250 mg PO DAILY SUPPLEMENT 1 12/31/23 History cholecalciferol (vitamin D3) 25 25 mcg PO DAILY SUPPLE MENT 05/17/22 12/31/23 History mcg (1,000 unit) capsule cyanocobalamin (vitamin B-12) 1,000 mcg PO DAILY SUPPL EMENT 05/17/22 12/31/23 History 1,000 mcg tablet ferrous sulfate 325 mg (65 mg 325 mg PO DAILY SUPPLEME NT 05/17/22 12/31/23 History iron) tablet mupirocin 2 % topical ointment 1 applic topical DAILY PRN Wound 05/17/22 12/31/23 History Care gabapentin 300 mg capsule 300 mg PO BID 30 days #60 ca ps 05/19/22 01/01/24 Rx dextran 70-hypromellose 0.1 %-0.3 1 drp ophthalmic (ey e) TID PRN dry 05/25/22 12/31/23 History % eye drops (Artificial Tears eye(s) (dextran 70-hypromellose)) ipratropium 20 mcg-albuterol 100 1 puff inhalation Q6H PRN copd 05/25/22 01/01/24 History mcg/actuation mist for inhalation (Combivent Respimat) nystatin 100,000 unit/gram topical 1 applic topical BI D 10 days #30 07/08/22 12/31/23 Rx powder grams sennosides 8.6 mg tablet (Senna 8.6 mg PO .QOD STOOL 0 08/25/22 12/31/23 History Lax) lorazepam 0.5 mg tablet 0.5 mg PO BID PRN Anxiety 01/01/24 History methadone 5 mg tablet 10 mg PO BID 12/01/22 History naloxone 4 mg/actuation nasal 1 spray intranasal Q2M P RN opioid 12/01/22 Unknown History spray (Narcan) overdose oxycodone-acetaminophen 10 mg-325 1 tab PO Q3H PRN Cynthia n 12/01/22 01/01/24 History mg tablet (Percocet) scopolamine base 1 mg over 3 days 1 patch transdermal Q3D PRN nausea 05/16/23 Unknown Rx transdermal patch and vomiting #10 ea lidocaine 5 % topical ointment 1 applic topical TID NV N pain #30 07/12/23 12/31/23 Rx grams levothyroxine 175 mcg tablet 175 mcg PO DAILY disorder of 12/26/23 12/31/23 History thyroid gland magnesium glycinate 100 mg (as 200 mg PO BID 12/26/23 12/31/23 History glycinate) tablet doxycycline hyclate 100 mg tablet 100 mg PO BID 14 day s #28 tabs 01/02/24 Unknown Rx amoxicillin 875 mg-potassium 1 tab PO Q12H 14 days #28 tabs 01/24/24 Unknown Rx clavulanate 125 mg tablet valacyclovir 500 mg tablet 500 mg PO DAILY Check with primary 02/06/24 Unknown Rx (Valtrex) doctor #30 tabs amoxicillin 875 mg-potassium 1 tab PO BID 7 days #14 t abs 08/28/24 Unknown Rx clavulanate 125 mg tablet cefuroxime axetil 500 mg tablet 500 mg PO BID 09/11/24 Unknown History Allergy/AdvReac Type Severity Reaction Status Date / Time NSAIDS (Non-Steroidal Allergy GASTRIC Verified 08/28/24 14:03 Anti-Inflamma BYPASS ondansetron (From Zofran) AdvReac Other Verified 08/28/24 14:03 trazodone AdvReac Other Verified 08/28/24 14:03 Family History Father Diabetes Hypertension Myocardial infarction Alcoholism Brother Myocardial infarction Alcoholism Mother CVA (cerebral vascular accident) Surgical History S/P laminectomy with spinal fusion H/O dilation and curettage History of bilateral salpingo-oophorectomy S/P arthroscopic knee surgery s/p nerve spine surgery S/P lumbar spine operation s/p upper back surgery skin graft Hydradenitis History of cholecystectomy H/O gastric bypass Social History Smoking Status: Current every day smoker tobacco type: cigarettes alcohol intake: never substance use type: does not use caffeine: Yes what type of physical activity do you participate in: none seatbelt use: always do you feel safe at home: Yes additional social history: Physical Exam Const alert, oriented x3, no apparent distress and average body habitus Constitutional Narrative: The patient's BMI is 24.2. The patient is paraplegic. General Appearance: cooperative and comfortable Orientation / Consciousness: awake, oriented to person, oriented to place and oriented to time Exam Limitations: physical limitations HEENT normocephalic and head/scalp atraumatic Head and Scalp: normal to inspection, normocephalic and atraumatic Face and Sinus: normal facial exam Nose: external nose normal External Ear: external ears normal Eyes EOMs intact bilaterally General Eye: normal appearance of both eyes Resp normal respiratory effort, normal air movement, no retractions and no use of accessory muscles Effort and Inspection: able to speak in complete sentences Extremity General Extremity: Negative for clubbing or cyanosis Skin Wound Narrative: A stage III sacrococcygeal pressure ulceration is noted. It extends through the cutaneous layers and into the subcutaneous tissues. Bone and fascia are not v isible. The base of the ulcer demonstrates pink, healthy granulation tissue, and nearly complete epithelialization of the ulcer bed. The ulceration is decreasing in size, and is nearly healed. There is a small amount of bioburden. Ulcer margins are well beveled. There is no sign of infection or cellulitis. The periwound dermis is unremarkable. Dimensions are documented elsewhere. Neuro oriented x3 and CN's II-XII intact bilaterally Neuro Narrative: The patient is paraplegic. Sensorium / Orientation: awake, alert, oriented to person, oriented to place and oriented to time Speech: speech normal Psych cooperative and speech normal Appearance: grossly normal and appropriate Attitude: calm Activity / Motor Behavior: appropriate eye contact Speech: normal speech Mood & Affect: euthymic mood Attention / Concentration: attention grossly intact Debridement Note Debridement Note Wound debrided: Sacrococcygeal pressure ulceration Laterality: Not Applicable (Sacrococcygeal pressure ulceration in the midline) Wound Grade/Stage: Stage III Type of Debridement: Excisional debridement Anesthesia Used: 5% Lidocaine Gel Depth: Down to and including healthy tissue and in the subcutaneous layer Percentage of wound debrided: 100 Instrument Used: 3mm curette Tissue Removed: Bioburden Severity: Fat Layer Exposed (muscle is exposed. bone is palpable but not exposed.) Amount of bleeding with debridement: Mild Bleeding Controlled with: Compression and gauze Patient tolerated procedure: Patient tolerated procedure well Post-Debridement Measurements and Additional Note: Post-Debridement Measurements/Treatment WC - Nurse 1 - General Ulcer Assessment Start: 02/25/25 13:01 Freq: Status: Active Protocol: TAISHA Activity Type Activity Date Activity User E-sign Co-sign Detail Recorded Client Recorded Date Recorded By Document 02/25/25 13:01 ELLIE [id number] 02/25/25 13:07 JF Document 03/11/25 13:16 KW [id number] 03/11/25 13:22 KW 02/25/25 03/11/25 13:01 13:16 - Today's Visit Information Type of service Follow-up Visit Follow-up Visit (Physician/SOFTWARE DEVELOPER INTERN (Physician/SOFTWARE DEVELOPER INTERN ) ) Arrival Mode Wheelchair Wheelchair Transfer Assistance Manual Manual Patient Identification Verified (Name & Yes ) Patient Requires Transmission-Based No Precautions Vital Signs Temperature (97.8 F-99.1 F) 98.6 F 97.3 F L Temperature Source Temporal Temporal Pulse Rate (60-100) 102 H 87 Pulse Location Monitor Monitor Respiratory Rate (12-18) 16 18 Respiratory rate source Observation Observation Oxygen Delivery Method Room Air Blood Pressure (90/60-120/80) 107/80 116/83 H Blood Pressure Mean 89 94 Source Monitor Monitor Position Sitting Sitting Blood Pressure Location Left Arm Left Arm History Since Last Visit- (Skip if this is Patient's initial visit) Have you changed medications since your Yes No last visit? Any new allergies or adverse reactions No No Had a fall/change in ADL's that may No No increase risk of falls Signs or symptoms of abuse and/or No No neglect since last visit Have you been in the hospital since your No No last visit? Has dressing in place as prescribed Yes Yes Has compression in place as prescribed N/A N/A Has offloadiing in place as prescribed Yes N/A Experienced any changes in pain level or No No management Left Footwear No Footwear Slipper Right Footwear No Footwear Slipper Pain Scale: 0-10 Numeric Is Patient Pain Free? Yes Yes - Nurse 1 - General Ulcer Measurement Start: 02/25/25 13:01 Freq: Status: Active Protocol: Activity Type Activity Date Activity User E-sign Co-sign Detail Recorded Client Recorded Date Recorded By Document 02/25/25 13:01 ELLIE [id number] 02/25/25 13:07 Document 03/11/25 13:16 KW [id number] 03/11/25 13:22 KW 02/25/25 03/11/25 13:01 13:16 Wound Center Nurse 1 #14- L SACRAL POST OP cluster -Combined with other wound No -Current Size (cm) - Length 3 0.3 -Current Size (cm) - Width 1 1 -Current Size (cm) - Depth 0.1 0.3 -Total Square Cm 3 0.3 -Date of Last Picture (Recall this 03/11/25 field) -Photo Taken Yes -Epithelialization Small 1-33% -Tunneling No -Undermining/Tunneling No -Circular Undermining No -Exudate Amt Small Medium -Exudate Type Serosanguineous Serosanguineous -Wound Margin Flat & Intact Distinct, Outline Attached -Granulation Amt Large (67-100%) Large (67-100%) -Granulation Quality [place] Red -Slough/Fibrin Yes -Necrosis Amt Small (1-33%) -Necrotic Tissue Type Adherent Slough -Structure Exposed N/A -Texture (Vivi-wound Skin Appearance) Assessed Assessed -Moisture (Vivi-wound Skin Appearance) Assessed,Dry/ Assessed Scaly -Color (Vivi-wound Skin Appearance) Assessed Assessed -Temperature (Vivi-wound Skin No Abnormality No Abnormality Appearance) (Pt Warm) (Pt Warm) -Tenderness on Palpation (Vivi-wound No No Skin Appearance) -Ulcer Cleansing Rinsed/ Soap and Water Irrigated with Saline -Foul Odor after Cleansing No No -Anesthetic Used 5% Lidocaine 5% Lidocaine Gel Gel Lower Limb Edema Present NA WC - Nurse 2 - General Ulcer CM Notes Start: 02/25/25 13:01 Freq: Status: Active Protocol: Activity Type Activity Date Activity User E-sign Co-sign Detail Recorded Client Recorded Date Recorded By Document 02/25/25 13:21 DS [id number] 02/25/25 13:24 DS Document 03/11/25 13:34 [facility] [id number] 03/11/25 13:37 BMF 02/25/25 03/11/25 13:21 13:34 Wound Center Nurse 2 #14- L SACRAL POST OP cluster -Time 13:21 13:34 -Correct Patient Yes Yes -Correct Side, Site, Position Yes Yes -Correct Procedure Yes Yes -Procedure Performed Yes Yes -Type of Procedure Debridement Debridement -Clinical Debridement Subcutaneous Subcutaneous -Tissue Removed Subcutaneous Subcutaneous -Post Debridement (cm) - Length 0.4 2 -Post Debridement (cm) - Width 0.7 0.9 -Post Debridement (cm) - Depth 0.1 0.1 -Total Square (Post) (cm) 0.28 1.8 -Area of Debridement (cm) - Length 0.4 2 -Area of Debridement (cm) - Width 0.7 0.9 -Total Square (Area) (cm) 0.28 1.8 -Tunneling No No -Undermining/Tunneling No No -Circular Undermining No No -Wound/Ulcer Outcome Not Healed Not Healed -Ulcer Cleansing gauze Rinsed/ Irrigated with Saline -Foul Odor after Cleansing No No -Bioengineered Tissue No No -Bleeding Controlled with Pressure Pressure -Treatment Response Procedure Procedure Tolerated Well Tolerated Well -Debridement - Subq, 1st 20sq cm Yes Yes Pain Scale: 0-10 Numeric Is Patient Pain Free? Yes Yes - Nurse 3 - General Ulcer D/C NN Start: 02/25/25 13:01 Freq: Status: Active Protocol: Activity Type Activity Date Activity User E-sign Co-sign Detail Recorded Client Recorded Date Recorded By Document 02/25/25 13:41 [id number] 02/25/25 13:42 Document 03/11/25 13:40 RB [id number] 03/11/25 13:41 RB 02/25/25 03/11/25 13:41 13:40 Wound Care Center Nurse 3 #14- L SACRAL POST OP cluster -Ulcer Cleansing Rinsed/ Rinsed/ Irrigated with Irrigated with Saline Saline -Foul Odor after Cleansing No -Primary Dressing Applied Promogran Promogran Lyudmila Matter, Lyudmila Matter, Silicone Border Silicone Border Foam 6x6 Foam 4x4 -Promogran Lyudmila Matter 1 1 -Silicone Border Foam 4x4 1 -Silicone Border Foam 6x6 1 Treatment Response Procedure Tolerated Well Pain Scale: 0-10 Numeric Is Patient Pain Free? Yes Yes - Visit Discharge Discharge Condition Stable Stable Ambulatory Status Wheelchair Wheelchair Transportation Private Auto Private Auto Accompanied by daughter daughter Medication Reconcilliation completed & Yes No provided to patient/care provider Clinical Summary of Care Provided Yes Yes Charges/Coding Procedures Integumentary [id number]: [id number] Shila subq tissue 20 sq cm/< Assessment/Plan Assessment/Plan (1) Pressure injury of sacral region, stage 3: CODE(S): L89.153 - Pressure ulcer of sacral region, stage 3 (2) Diabetes mellitus: CODE(S): E11.9 - Type 2 diabetes mellitus without complications QUALIFIERS: Diabetes mellitus type: type 2 Diabetes mellitus complication status: with skin complications (3) Tobacco use disorder: CODE(S): F17.200 - Nicotine dependence, unspecified, uncomplicated (4) Paraplegia: CODE(S): G82.20 - Paraplegia, unspecified (5) Smoker: CODE(S): F17.200 - Nicotine dependence, unspecified, uncomplicated (6) Tobacco abuse counseling: CODE(S): Z71.6 - Tobacco abuse counseling (7) History of cholecystectomy: CODE(S): Z98.890 - Other specified postprocedural states; Z90.49 - Acquired absence of other specified parts of digestive tract (8) H/O gastric bypass: CODE(S): Z98.84 - Bariatric surgery status (9) Diabetes mellitus type 2, controlled: CODE(S): E11.9 - Type 2 diabetes mellitus without complications (10) COPD (chronic obstructive pulmonary disease): CODE(S): J44.9 - Chronic obstructive pulmonary disease, unspecified QUALIFIERS: COPD type: unspecified COPD Qualified Code(s): J44.9 - Chronic obstructive pulmonary disease, unspecified (11) GERD without esophagitis: CODE(S): K21.9 - Gastro-esophageal reflux disease without esophagitis (12) History of methicillin resistant staphylococcus aureus (MRSA): CODE(S): Z86.14 - Personal history of Methicillin resistant Staphylococcus aureus infection (13) S/P laminectomy with spinal fusion: CODE(S): Z98.1 - Arthrodesis status (14) Paraplegia: CODE(S): G82.20 - Paraplegia, unspecified PLAN: Plan This is a 64-year-old female paraplegic who has had a history of multiple lumbar spine surgeries in the past. She is currently undergoing management at our facility relative to a chronic pressure ulceration in the sacrococcygeal area. Offloading measures are to be continued. These have been discussed with the patient in detail. She lives with her daughter, who assists the patient in daily care. She also has home health nursing care and an independent aide. The patient is known to be a smoker, smoking approximately 3/4 pack/day. She has been strongly urged to discontinue her smoking habit, but continues to smoke. She has been advised that smoking may play a role in delayed wound healing. Nutritional optimization has been recommended. The patient has previously undergone consultation with a dietitian, and received dietary recommendations on several occasions. She has been encouraged to optimize her glycemic control and nutritional intake. We are to continue the use of moistened Lyudmila and [place] SAP applied topically to the wound on a daily basis. The patient and her daughter have been instructed in the appropriate means of application. There is evidence of peripheral epithelialization, and the ulceration continues to dec rease in size. The patient is return in 2 weeks for reevaluation. The patient has received delivery of her new, mechanized wheelchair. Total time: 24 minutes
== END 2025-03-23 23:59 | disposition home or self-care (01) ==
LOC: WC 13:30
PROVIDERS: PCP Internal Medicine; Referring Provider Nurse Practitioner Family; Visit Provider Surgery
DX: L89.153 Pressure ulcer of sacral region, stage 3 (principal); G82.20 Paraplegia, unspecified; J44.9 Chronic obstructive pulmonary disease, unspecified; E11.40 Type 2 diabetes mellitus with diabetic neuropathy, unspecified; G89.29 Other chronic pain; D64.9 Anemia, unspecified; K21.9 Gastro-esophageal reflux disease without esophagitis; F17.210 Nicotine dependence, cigarettes, uncomplicated; Z98.1 Arthrodesis status; I10 Essential (primary) hypertension; Z79.899 Other long term (current) drug therapy; Z86.14 Personal history of Methicillin resistant Staphylococcus aureus infection
CPT/HCPCS: 11042

== ENCOUNTER 2025-04-22 13:00 | Outpatient (RCR) | payer MEDICARE, MEDICAID, SELFPAY ==
[2025-03-25 13:07] VITALS: BP 141/87; PULSE 108; RESP 16; TEMP 36.4
--- NOTE | 2025-03-27 09:15 | WC ---
PHOTO - SACRAL CLUSTER 03/25/25
--- NOTE | 2025-03-28 13:27 | HP.PCM_ITS ---
History of Present Illness Date of Service: 03/25/25 Chief Complaint: Sacral pressure ulcer History of Wound: This is a 64 year old female who had back surgery in early September 2022 at [facility] and then went to rehab at [facility] after that. She had a aurelia replaced in her back. Before her surgery, she was not able to lie flat due to increased pain, so she spent most of her time in her wheelchair. Since her surgery, the pain has limited her ability to sit in her wheelchair. She presented with an ulcer to her sacrum. She was in the ED on 12/10/22 for increased wound drainage and was treated with Keflex. She does have home health to assist with dressing changes. Wound culture 12/26/22 positive for Proteus mirabilis, Enterococcus faecalis, Streptococcus agalactiae, Anaerobic cocci and Bacteroides fragilis. She was treated with Augmentin. Wound culture from 01/23/23 was positive for MRSA and Morganella morganii. The MRSA was treated with Doxycycline. Wound culture 04/03/23 positive for Proteus mirabilis, Enterococcus faecalis, and Anaerobic cocci. She was treated with Augmentin. Wound culture from 07/03/23 positive for Proteus mirabilis and Enterococcus faecalis which was treated with Augmentin. Wound culture was done on 08/23/23. It was negative. She had CT Pelvis on 09/20/23. It showed evidence of tissue defect in the medial aspect of the right buttock abutting the distal sacrum. This most likely represents an ulcerated pressure ulcer. Normal urinary bladder. Normal visualized small intestine. Moderate amount of fecal material is seen in the colon. There is no pelvic fluid. There is no pelvic mass lesion or lymphadenopathy. There is diffuse atherosclerotic calcification of the pelvic arteries. Phleboliths are seen in the pelvis. Normal abdominal wall. Extensive metallic streak artifacts due to fusion with intrapedicular screw and aurelia fixation the lower lumbar spine. Surgery 01/01/24 - Excision sacral pressure sore, Stage IV, with partial ostectomy for osteomyelitis. The procedure was performed by Dr. Costa Hodge. Pathology of sacral bone consistent with chronic osteomyelitis. Soft tissue and skin of sacral region showed ulceration with associated acute and chronic inflammation and granulation. Operative bone culture from 01/01/24 positive for Staphylococcus haemolyticus. She was treated for 6 weeks for positive bone cultures. Operative tissue culture from 01/01/24 positive for Corynebacterium striatum, Strep anginosus, Prevotella disiens, and Anaerobic cocci. She was treated with Doxycycline and Augmentin. [facility] Medical History Pressure injury of sacral region, stage 3 Diabetes mellitus type 2, controlled GERD without esophagitis COPD (chronic obstructive pulmonary disease) Tobacco abuse counseling History of methicillin resistant staphylococcus aureus (MRSA) Wears glasses Post-menopausal Depression Marijuana use Neuropathy Thyroid disease Arthritis Back pain Gastric reflux Smoker Paraplegia History of stress test Personal history of Methicillin resistant Staphylococcus aureus infection Diabetes mellitus Pressure injury of sacral region, stage 4 Weight loss Positive colorectal cancer screening using Cologuard test Witnessed seizure-like activity Ulcer of left lower leg Ulcer of right lower extremity with fat layer exposed Ulcer of left lower extremity with fat layer exposed Toxic encephalopathy Wound, open, abdominal wall, anterior Current tobacco use Chest pain, unspecified Bone lesion Intractable low back pain Major depressive disorder Chronic cluster headache, not intractable Age-related osteoporosis without current pathological fracture Primary generalized (osteo)arthritis Other intervertebral disc degeneration, lumbar region Hypothyroidism Anemia Muscle weakness Spinal stenosis, lumbar region without neurogenic claudication Neuromuscular scoliosis Chronic low back pain Paraplegia Morbid obesity HTN (hypertension) HLD (hyperlipidemia) Home Medications ?Medication ?Instructions ?Recorded ?Last Taken ?Type nlupxbjwzoyu-iekutcmr-nalazs 1 tab PO DAILY supplement 02/26/18 12/31/23 History tablet ([employer]er[employer] Senior) pantoprazole 40 mg tablet,delayed 40 mg PO BID PRN sto mach 09/17/20 12/31/23 History release acetaminophen 500 mg tablet 500 mg PO Q6H PRN Pain 1-1 0 Or 10/08/20 12/31/23 History Fever albuterol sulfate 90 mcg/actuation 2 puff inhalation Q 4H PRN PRN Sob 10/08/20 Unknown History aerosol inhaler &/Or Wheezing betamethasone valerate 0.1 % 1 applic topical BID PRN skin 01/15/21 12/31/23 Rx topical cream irritation #15 grams cetirizine 10 mg tablet 10 mg PO DAILY #30 tabs 12/2312/31/23 Rx hydrocolloid dressing 4 X 4 #5 ea 09/07/21 Unknown R x (DuoDERM CGF Adhesive Border Dressing) biotin 1 mg tablet 1 mg PO DAILY SUPPLEMENT 12/31/23 History calcium citrate 250 mg PO DAILY SUPPLEMENT 1 12/31/23 History cholecalciferol (vitamin D3) 25 25 mcg PO DAILY SUPPLE MENT 05/17/22 12/31/23 History mcg (1,000 unit) capsule cyanocobalamin (vitamin B-12) 1,000 mcg PO DAILY SUPPL EMENT 05/17/22 12/31/23 History 1,000 mcg tablet ferrous sulfate 325 mg (65 mg 325 mg PO DAILY SUPPLEME NT 05/17/22 12/31/23 History iron) tablet mupirocin 2 % topical ointment 1 applic topical DAILY PRN Wound 05/17/22 12/31/23 History Care gabapentin 300 mg capsule 300 mg PO BID 30 days #60 ca ps 05/19/22 01/01/24 Rx dextran 70-hypromellose 0.1 %-0.3 1 drp ophthalmic (ey e) TID PRN dry 05/25/22 12/31/23 History % eye drops (Artificial Tears eye(s) (dextran 70-hypromellose)) ipratropium 20 mcg-albuterol 100 1 puff inhalation Q6H PRN copd 05/25/22 01/01/24 History mcg/actuation mist for inhalation (Combivent Respimat) sennosides 8.6 mg tablet (Senna 8.6 mg PO .QOD STOOL 0 08/25/22 12/31/23 History Lax) methadone 5 mg tablet 10 mg PO BID 12/01/22 History naloxone 4 mg/actuation nasal 1 spray intranasal Q2M P RN opioid 12/01/22 Unknown History spray (Narcan) overdose oxycodone-acetaminophen 10 mg-325 1 tab PO Q3H PRN Cynthia n 12/01/22 01/01/24 History mg tablet (Percocet) lidocaine 5 % topical ointment 1 applic topical TID ID N pain #30 07/12/23 12/31/23 Rx grams levothyroxine 175 mcg tablet 175 mcg PO DAILY disorder of 12/26/23 12/31/23 H istory thyroid gland magnesium glycinate 100 mg (as 200 mg PO BID 12/26/23 12/31/23 History glycinate) tablet valacyclovir 500 mg tablet 500 mg PO DAILY Check with primary 02/06/24 Unknown Rx (Valtrex) doctor #30 tabs lorazepam 0.5 mg tablet 1 mg PO BID PRN Anxiety 02/22 02/14 Unknown History Allergy/AdvReac Type Severity Reaction Status Date / Time NSAIDS (Non-Steroidal Allergy GASTRIC Verified 03/19/25 14:01 Anti-Inflamma BYPASS ondansetron (From Zofran) AdvReac Other Verified 03/19/25 14:01 trazodone AdvReac Other Verified 03/19/25 14:01 Family History Father Diabetes Hypertension Myocardial infarction Alcoholism Brother Myocardial infarction Alcoholism Mother CVA (cerebral vascular accident) Surgical History S/P laminectomy with spinal fusion H/O dilation and curettage History of bilateral salpingo-oophorectomy S/P arthroscopic knee surgery s/p nerve spine surgery S/P lumbar spine operation s/p upper back surgery skin graft Hydradenitis History of cholecystectomy H/O gastric bypass Social History Smoking Status: Current every day smoker tobacco type: cigarettes alcohol intake: never substance use type: does not use caffeine: Yes what type of physical activity do you participate in: none seatbelt use: always do you feel safe at home: Yes additional social history: Physical Exam Const alert, oriented x3, no apparent distress and average body habitus Constitutional Narrative: The patient's BMI is 24.2. The patient is paraplegic. General Appearance: cooperative and comfortable Orientation / Consciousness: awake, oriented to person, oriented to place and oriented to time Exam Limitations: physical limitations HEENT normocephalic and head/scalp atraumatic Head and Scalp: normal to inspection, normocephalic and atraumatic Face and Sinus: normal facial exam Nose: external nose normal External Ear: external ears normal Eyes EOMs intact bilaterally General Eye: normal appearance of both eyes Resp normal respiratory effort, normal air movement, no retractions and no use of accessory muscles Effort and Inspection: able to speak in complete sentences Extremity General Extremity: Negative for clubbing or cyanosis Skin Wound Narrative: A stage III sacrococcygeal pressure ulceration is noted. It extends through the cutaneous layers and into the subcutaneous tissues. Bone and fascia are not visible. The base of the ulcer demonstrates pink, healthy granulation tissue, and nearly complete epithelialization of the ulcer bed. The ulceration is decreasing in size, and is nearly healed. There is a small amount of bioburden. Ulcer margins are well beveled. There is no sign of infection or cellulitis. The periwound dermis is unremarkable. Dimensions are documented elsewhere. Neuro oriented x3 and CN's II-XII intact bilaterally Neuro Narrative: The patient is paraplegic. Sensorium / Orientation: awake, alert, oriented to person, oriented to place and oriented to time Speech: speech normal Psych cooperative and speech normal Appearance: grossly normal and appropriate Attitude: calm Activity / Motor Behavior: appropriate eye contact Speech: normal speech Mood & Affect: euthymic mood Attention / Concentration: attention grossly intact Debridement Note Debridement Note Wound debrided: Sacrococcygeal pressure ulceration Laterality: Not Applicable (Sacrococcygeal pressure ulceration in the midline) Wound Grade/Stage: Stage III Type of Debridement: Excisional debridement Anesthesia Used: 5% Lidocaine Gel Depth: Down to and including healthy tissue and in the subcutaneous layer Percentage of wound debrided: 100 Instrument Used: 3mm curette Tissue Removed: Bioburden Severity: Fat Layer Exposed (muscle is exposed. bone is palpable but not exposed.) Amount of bleeding with debridement: Mild Bleeding Controlled with: Compression and gauze Patient tolerated procedure: Patient tolerated procedure well Post-Debridement Measurements and Additional Note: Post-Debridement Measurements/Treatment SCOTTY - Nurse 1 - General Ulcer Assessment Start: 03/25/25 13:06 Freq: Status: Active Protocol: TAISHA Activity Type Activity Date Activity User E-sign Co-sign Detail Recorded Client Recorded Date Recorded By Document 03/25/25 13:07 ELLIE [id number] 03/25/25 13:13 ELLIE 03/25/25 13:07 - Today's Visit Information Type of service Follow-up Visit (Physician/[employer] ) Arrival Mode Wheelchair Transfer Assistance Manual Patient Identification Verified (Name & Yes ) Patient Requires Transmission-Based No Precautions Vital Signs Temperature (97.8 F-99.1 F) 97.6 F L Temperature Source Temporal Pulse Rate (60-100) 108 H Pulse Location Monitor Respiratory Rate (12-18) 16 Respiratory rate source Observation Blood Pressure (90/60-120/80) 141/87 H Blood Pressure Mean 105 Source Monitor Position Semi-Fowlers Blood Pressure Location Right Arm History Since Last Visit- (Skip if this is Patient's initial visit) Have you changed medications since your Yes last visit? Any new allergies or adverse reactions No Had a fall/change in ADL's that may No increase risk of falls Signs or symptoms of abuse and/or No neglect since last visit Have you been in the hospital since your No last visit? Has dressing in place as prescribed Yes Has compression in place as prescribed No Experienced any changes in pain level or Yes management Left Footwear Regular Shoe Right Footwear Regular Shoe Pain Scale: 0-10 Numeric Is Patient Pain Free? Yes WC - Nurse 1 - General Ulcer Measurement Start: 03/25/25 13:06 Freq: Status: Active Protocol: Activity Type Activity Date Activity User E-sign Co-sign Detail Recorded Client Recorded Date Recorded By Document 03/25/25 13:07 ELLIE [id number] 03/25/25 13:13 ELLIE 03/25/25 13:07 Wound Center Nurse 1 #14- L SACRAL POST OP cluster -Combined with other wound No -Current Size (cm) - Length 2 -Current Size (cm) - Width 1 -Current Size (cm) - Depth 0.2 -Total Square Cm 2 -Photo Taken Yes -Epithelialization Medium 34-66% -Tunneling No -Undermining/Tunneling No -Circular Undermining No -Exudate Amt Small -Exudate Type Serosanguineous -Wound Margin Flat & Intact -Granulation Amt Large (67-100%) -Granulation Quality Red -Slough/Fibrin Yes -Necrosis Amt Small (1-33%) -Necrotic Tissue Type Adherent Slough -Structure Exposed N/A -Texture (Vivi-wound Skin Appearance) Assessed -Moisture (Vivi-wound Skin Appearance) Assessed,Dry/ Scaly -Color (Vivi-wound Skin Appearance) Assessed -Temperature (Vivi-wound Skin No Abnormality Appearance) (Pt Warm) -Tenderness on Palpation (Vivi-wound No Skin Appearance) -Ulcer Cleansing Rinsed/ Irrigated with Saline -Foul Odor after Cleansing No -Anesthetic Used 4% Lidocaine Solution Lower Limb Edema Present NA WC - Nurse 2 - General Ulcer CM Notes Start: 03/25/25 13:06 Freq: Status: Active Protocol: Activity Type Activity Date Activity User E-sign Co-sign Detail Recorded Client Recorded Date Recorded By Document 03/25/25 13:17 [id number] 03/25/25 13:20 03/25/25 13:17 Wound Center Nurse 2 #14- L SACRAL POST OP cluster -Time 13:18 -Correct Patient Yes -Correct Side, Site, Position Yes -Correct Procedure Yes -Procedure Performed Yes -Type of Procedure Debridement -Clinical Debridement Subcutaneous -Tissue Removed Subcutaneous -Post Debridement (cm) - Length 2.1 -Post Debridement (cm) - Width 1 -Post Debridement (cm) - Depth 0.2 -Total Square (Post) (cm) 2.1 -Area of Debridement (cm) - Length 2.1 -Area of Debridement (cm) - Width 1 -Total Square (Area) (cm) 2.1 -Tunneling No -Undermining/Tunneling No -Circular Undermining No -Wound/Ulcer Outcome Not Healed -Ulcer Cleansing Rinsed/ Irrigated with Saline -Foul Odor after Cleansing No -Bioengineered Tissue No -Bleeding Controlled with Pressure -Treatment Response Procedure Tolerated Well -Offloading No -Pressure Reduction Wheelchair cushion -Debridement - Subq, 1st 20sq cm Yes Pain Scale: 0-10 Numeric Is Patient Pain Free? Yes - Nurse 3 - General Ulcer D/C NN Start: 03/25/25 13:06 Freq: Status: Active Protocol: Activity Type Activity Date Activity User E-sign Co-sign Detail Recorded Client Recorded Date Recorded By Document 03/25/25 13:40 [facility] [id number] 03/25/25 13:40 [facility] 03/25/25 13:40 Wound Care Center Nurse 3 #14- L SACRAL POST OP cluster -Ulcer Cleansing Rinsed/ Irrigated with Saline -Foul Odor after Cleansing No -Primary Dressing Applied Promogran Lyudmila Matter, Silicone Border Foam 4x4 -Promogran Lyudmila Matter 1 -Silicone Border Foam 4x4 1 Treatment Response Procedure Tolerated Well Pain Scale: 0-10 Numeric Is Patient Pain Free? Yes - Visit Discharge Discharge Condition Stable Ambulatory Status Wheelchair Facility Type Home Health Charges/Coding Procedures Integumentary [id number]: [id number] Shila subq tissue 20 sq cm/< Assessment/Plan Assessment/Plan (1) Pressure injury of sacral region, stage 3: CODE(S): L89.153 - Pressure ulcer of sacral region, stage 3 (2) Diabetes mellitus: CODE(S): E11.9 - Type 2 diabetes mellitus without complications QUALIFIERS: Diabetes mellitus type: type 2 Diabetes mellitus complication status: with skin complications (3) Tobacco use disorder: CODE(S): F17.200 - Nicotine dependence, unspecified, uncomplicated (4) Paraplegia: CODE(S): G82.20 - Paraplegia, unspecified (5) Smoker: CODE(S): F17.200 - Nicotine dependence, unspecified, uncomplicated (6) Tobacco abuse counseling: CODE(S): Z71.6 - Tobacco abuse counseling (7) History of cholecystectomy: CODE(S): Z98.890 - Other specified postprocedural states; Z90.49 - Acquired absence of other specified parts of digestive tract (8) H/O gastric bypass: CODE(S): Z98.84 - Bariatric surgery status (9) Diabetes mellitus type 2, controlled: CODE(S): E11.9 - Type 2 diabetes mellitus without complications (10) COPD (chronic obstructive pulmonary disease): CODE(S): J44.9 - Chronic obstructive pulmonary disease, unspecified QUALIFIERS: COPD type: unspecified COPD Qualified Code(s): J44.9 - Chronic obstructive pulmonary disease, unspecified (11) GERD without esophagitis: CODE(S): K21.9 - Gastro-esophageal reflux disease without esophagitis (12) History of methicillin resistant staphylococcus aureus (MRSA): CODE(S): Z86.14 - Personal history of Methicillin resistant Staphylococcus aureus infection (13) S/P laminectomy with spinal fusion: CODE(S): Z98.1 - Arthrodesis status (14) Paraplegia: CODE(S): G82.20 - Paraplegia, unspecified PLAN: Plan This is a 64-year-old female paraplegic who has had a history of multiple lumbar spine surgeries in the past. She is currently undergoing management at our facility relative to a chronic pressure ulceration in the sacrococcygeal area. Offloading measures are to be continued. These have been discussed with the patient in detail. She lives with her daughter, who assists the patient in daily care. She also has home health nursing care and an independent aide. The patient is known to be a smoker, smoking approximately 3/4 pack/day. She has been strongly urged to discontinue her smoking habit, but continues to smoke. She has been advised that smoking may play a role in delayed wound healing. Nutritional optimization has been recommended. The patient has previously undergone consultation with a dietitian, and received dietary recommendations on several occasions. She has been encouraged to optimize her glycemic control and nutritional intake. We are to continue the use of moistened Lyudmila and [place] SAP applied topically to the wound on a daily basis. The patient and her daughter have been instructed in the appropriate means of application. There is evidence of peripheral epithelialization, and the ulceration continues to decrease in size. The patient is return in 2 weeks for reevaluation. The patient has received delivery of her new, mechanized wheelchair. She has undergone recent dental extractions, with more planned for the near future. Total time: 25 minutes
[2025-04-08 13:03] VITALS: BP 156/91; PULSE 74; RESP 16; TEMP 35.9
--- NOTE | 2025-04-08 13:39 | HP.PCM_ITS ---
History of Present Illness Chief Complaint: Sacral pressure ulcer History of Wound: This is a 64 year old female who had back surgery in early September 2022 at [facility] and then went to rehab at [facility] after that. She had a aurelia replaced in her back. Before her surgery, she was not able to lie flat due to increased pain, so she spent most of her time in her wheelchair. Since her surgery, the pain has limited her ability to sit in her wheelchair. She presented with an ulcer to her sacrum. She was in the ED on 12/10/22 for incre ased wound drainage and was treated with Keflex. She does have home health to assist with dressing changes. Wound culture 12/26/22 positive for Proteus mirabilis, Enterococcus faecalis, Streptococcus agalactiae, Anaerobic cocci and Bacteroides fragilis. She was treated with Augmentin. Wound culture from 01/23/23 was positive for MRSA and Morganella morganii. The MRSA was treated with Doxycycline. Wound culture 04/03/23 positive for Proteus mirabilis, Enterococcus faecalis, and Anaerobic cocci. She was treated with Augmentin. Wound culture from 07/03/23 positive for Proteus mirabilis and Enterococcus faecalis which was treated with Augmentin. Wound culture was done on 08/23/23. It was negative. She had CT Pelvis on 09/20/23. It showed evidence of tissue defect in the medial aspect of the right buttock abutting the distal sacrum. This most likely represents an ulcerated pressure ulcer. Normal urinary bladder. Normal visualized small intestine. Moderate amount of fecal material is seen in the colon. There is no pelvic fluid. There is no pelvic mass lesion or lymphadenopathy. There is diffuse atherosclerotic calcification of the pelvic arteries. Phleboliths are seen in the pelvis. Normal abdominal wall. Extensive metallic streak artifacts due to fusion with intrapedicular screw and aurelia fixation the lower lumbar spine. Surgery 01/01/24 - Excision sacral pressure sore, Stage IV, with partial ostectomy for osteomyelitis. The procedure was performed by Dr. Costa Hodge. Pathology of sacral bone consistent with chronic osteomyelitis. Soft tissue and skin of sacral region showed ulceration with associated acute and chronic inflammation and granulation. Operative bone culture from 01/01/24 positive for Staphylococcus haemolyticus. She was treated for 6 weeks for positive bone cultures. Operative tissue culture from 01/01/24 positive for Corynebacterium striatum, Strep anginosus, Prevotella disiens, and Anaerobic cocci. She was treated with Doxycycline and Augmentin. [facility] Medical History Pressure injury of sacral region, stage 3 Diabetes mellitus type 2, controlled GERD without esophagitis COPD (chronic obstructive pulmonary disease) Tobacco abuse counseling History of methicillin resistant staphylococcus aureus (MRSA) Wears glasses Post-menopausal Depression Marijuana use Neuropathy Thyroid disease Arthritis Back pain Gastric reflux Smoker Paraplegia History of stress test Personal history of Methicillin resistant Staphylococcus aureus infection Diabetes mellitus Pressure injury of sacral region, stage 4 Weight loss Positive colorectal cancer screening using Cologuard test Witnessed seizure-like activity Ulcer of left lower leg Ulcer of right lower extremity with fat layer exposed Ulcer of left lower extremity with fat layer exposed Toxic encephalopathy Wound, open, abdominal wall, anterior Current tobacco use Chest pain, unspecified Bone lesion Intractable low back pain Major depressive disorder Chronic cluster headache, not intractable Age-related osteoporosis without current pathological fracture Primary generalized (osteo)arthritis Other intervertebral disc degeneration, lumbar region Hypothyroidism Anemia Muscle weakness Spinal stenosis, lumbar region without neurogenic claudication Neuromuscular scoliosis Chronic low back pain Paraplegia Morbid obesity HTN (hypertension) HLD (hyperlipidemia) Home Medications ?Medication ?Instructions ?Recorded ?Last Taken ?Type xwubrojuderm-xdlnkarx-pmoiog 1 tab PO DAILY supplement 02/26/18 12/31/23 History tablet (Cerovite Senior) pantoprazole 40 mg tablet,delayed 40 mg PO BID PRN sto mach 09/17/20 12/31/23 His tory release acetaminophen 500 mg tablet 500 mg PO Q6H PRN Pain 1-1 0 Or 10/08/20 12/31/23 History Fever albuterol sulfate 90 mcg/actuation 2 puff inhalation Q 4H PRN PRN Sob 10/08/20 Unknown History aerosol inhaler &/Or Wheezing betamethasone valerate 0.1 % 1 applic topical BID PRN skin 01/15/21 12/31/23 Rx topical cream irritation #15 grams cetirizine 10 mg tablet 10 mg PO DAILY #30 tabs 12/2312/31/23 Rx hydrocolloid dressing 4 X 4 #5 ea 09/07/21 Unknown R x (DuoDERM CGF Adhesive Border Dressing) biotin 1 mg tablet 1 mg PO DAILY SUPPLEMENT 12/31/23 History calcium citrate 250 mg PO DAILY SUPPLEMENT 1 12/31/23 History cholecalciferol (vitamin D3) 25 25 mcg PO DAILY SUPPLE MENT 05/17/22 12/31/23 History mcg (1,000 unit) capsule cyanocobalamin (vitamin B-12) 1,000 mcg PO DAILY SUPPL EMENT 05/17/22 12/31/23 History 1,000 mcg tablet ferrous sulfate 325 mg (65 mg 325 mg PO DAILY SUPPLEME NT 05/17/22 12/31/23 History iron) tablet mupirocin 2 % topical ointment 1 applic topical DAILY PRN Wound 05/17/22 12/31/23 History Care gabapentin 300 mg capsule 300 mg PO BID 30 days #60 ca ps 05/19/22 01/01/24 Rx dextran 70-hypromellose 0.1 %-0.3 1 drp ophthalmic (ey e) TID PRN dry 05/25/22 12/31/23 History % eye drops (Artificial Tears eye(s) (dextran 70-hypromellose)) ipratropium 20 mcg-albuterol 100 1 puff inhalation Q6H PRN copd 05/25/22 01/01/24 History mcg/actuation mist for inhalation (Combivent Respimat) sennosides 8.6 mg tablet (Senna 8.6 mg PO .QOD STOOL 0 08/25/22 12/31/23 History Lax) methadone 5 mg tablet 10 mg PO BID 12/01/22 History naloxone 4 mg/actuation nasal 1 spray intranasal Q2M P RN opioid 12/01/22 Unknown History spray (Narcan) overdose oxycodone-acetaminophen 10 mg-325 1 tab PO Q3H PRN Cynthia n 12/01/22 01/01/24 History mg tablet (Percocet) lidocaine 5 % topical ointment 1 applic topical TID LA N pain #30 07/12/23 12/31/23 Rx grams levothyroxine 175 mcg tablet 175 mcg PO DAILY disorder of 12/26/23 12/31/23 History thyroid gland magnesium glycinate 100 mg (as 200 mg PO BID 12/26/23 12/31/23 History glycinate) tablet valacyclovir 500 mg tablet 500 mg PO DAILY Check with primary 02/06/24 Unknown Rx (Valtrex) doctor #30 tabs lorazepam 0.5 mg tablet 1 mg PO BID PRN Anxiety 02/22 02/14 Unknown History Allergy/AdvReac Type Severity Reaction Status Date / Time NSAIDS (Non-Steroidal Allergy GASTRIC Verified 03/19/25 14:01 Anti-Inflamma BYPASS ondansetron (From Zofran) AdvReac Other Verified 03/19/25 14:01 trazodone AdvReac Other Verified 03/19/25 14:01 Family History Father Diabetes Hypertension Myocardial infarction Alcoholism Brother Myocardial infarction Alcoholism Mother CVA (cerebral vascular accident) Surgical History S/P laminectomy with spinal fusion H/O dilation and curettage History of bilateral salpingo-oophorectomy S/P arthroscopic knee surgery s/p nerve spine surgery S/P lumbar spine operation s/p upper back surgery skin graft Hydradenitis History of cholecystectomy H/O gastric bypass Social History Smoking Status: Current every day smoker tobacco type: cigarettes alcohol intake: never substance use type: does not use caffeine: Yes what type of physical activity do you participate in: none seatbelt use: always do you feel safe at home: Yes additional social history: Vital Signs Vital Signs Vital Signs: 04/08/25 13:03 Temperature 96.6 F L Temperature Source Temporal Pulse Rate 74 Respiratory Rate 16 Blood Pressure 156/91 H Blood Pressure Mean 112 Blood Pressure Source Monitor Blood Pressure Position Sitting Blood Pressure Location Left Forearm Oxygen Delivery Method Room Air Debridement Note Debridement Note Instrument Used: - Post-Debridement Measurements and Additional Note: Post-Debridement Measurements/Treatment SCOTTY - Nurse 1 - General Ulcer Assessment Start: 03/25/25 13:06 Freq: Status: Active Protocol: TAISHA Activity Type Activity Date Activity User E-sign Co-sign Detail Recorded Client Recorded Date Recorded By Document 03/25/25 13:07 ELLIE [id number] 03/25/25 13:13 Document 04/08/25 13:03 BM [id number] 04/08/25 13:16 BM 03/25/25 04/08/25 13:07 13:03 - Today's Visit Information Type of service Follow-up Visit Follow-up Visit (Physician/TILE ROOFER (Physician/TILE ROOFER ) ) Arrival Mode Wheelchair Wheelchair Transfer Assistance Manual Other Transfer Assist (Other) 1 Accompanied by spike ann in [facility] Patient Identification Verified (Name & Yes Yes ) Patient Requires Transmission-Based No No Precautions Vital Signs Temperature (97.8 F-99.1 F) 97.6 F L 96.6 F L Temperature Source Temporal Temporal Pulse Rate (60-100) 108 H 74 Pulse Location Monitor Monitor Respiratory Rate (12-18) 16 16 Respiratory rate source Observation Observation Oxygen Delivery Method Room Air Blood Pressure (90/60-120/80) 141/87 H 156/91 H Blood Pressure Mean 105 112 Source Monitor Monitor Position Semi-Fowlers Sitting Blood Pressure Location Right Arm Left Forearm History Since Last Visit- (Skip if this is Patient's initial visit) Have you changed medications since your Yes No last visit? Any new allergies or adverse reactions No No Had a fall/change in ADL's that may No No increase risk of falls Signs or symptoms of abuse and/or No No neglect since last visit Have you been in the hospital since your No No last visit? Has dressing in place as prescribed Yes Yes Has compression in place as prescribed No N/A Has offloadiing in place as prescribed N/A Experienced any changes in pain level or Yes No management Left Footwear Regular Shoe Slipper Right Footwear Regular Shoe Slipper Pain Scale: 0-10 Numeric Is Patient Pain Free? Yes Yes - Nurse 1 - General Ulcer Measurement Start: 03/25/25 13:06 Freq: Status: Active Protocol: Activity Type Activity Date Activity User E-sign Co-sign Detail Recorded Client Recorded Date Recorded By Document 03/25/25 13:07 [id number] 03/25/25 13:13 Document 04/08/25 13:03 [facility] [id number] 04/08/25 13:16 [facility] 03/25/25 04/08/25 13:07 13:03 Wound Center Nurse 1 #14- L SACRAL POST OP cluster -Combined with other wound No No -Current Size (cm) - Length 2 1 -Current Size (cm) - Width 1 0.5 -Current Size (cm) - Depth 0.2 0.2 -Total Square Cm 2 0.5 -Date of Last Picture (Recall this 04/08/25 field) -Photo Taken Yes Yes -Epithelialization Medium 34-66% Small 1-33% -Tunneling No No -Undermining/Tunneling No No -Circular Undermining No No -Exudate Amt Small Medium -Exudate Type Serosanguineous Serosanguineous -Wound Margin Flat & Intact Thickened -Granulation Amt Large (67-100%) Large (67-100%) -Granulation Quality Red Red -Slough/Fibrin Yes Yes -Necrosis Amt Small (1-33%) Small (1-33%) -Necrotic Tissue Type Adherent Slough Adherent Slough -Structure Exposed N/A -Texture (Vivi-wound Skin Appearance) Assessed Assessed, Scarring -Moisture (Vivi-wound Skin Appearance) Assessed,Dry/ Assessed Scaly -Color (Vivi-wound Skin Appearance) Assessed Assessed -Temperature (Vivi-wound Skin No Abnormality No Abnormality Appearance) (Pt Warm) (Pt Warm) -Tenderness on Palpation (Vivi-wound No No Skin Appearance) -Ulcer Cleansing Rinsed/ Rinsed/ Irrigated with Irrigated with Saline Saline -Foul Odor after Cleansing No No -Anesthetic Used 4% Lidocaine 5% Lidocaine Solution Gel Lower Limb Edema Present NA WC - Nurse 2 - General Ulcer CM Notes Start: 03/25/25 13:06 Freq: Status: Active Protocol: Activity Type Activity Date Activity User E-sign Co-sign Detail Recorded Client Recorded Date Recorded By Document 03/25/25 13:17 [id number] 03/25/25 13:20 JF Document 04/08/25 13:26 DS [id number] 04/08/25 13:27 DS 03/25/25 04/08/25 13:17 13:26 Wound Center Nurse 2 #14- L SACRAL POST OP cluster -Time 13:18 13:26 -Correct Patient Yes Yes -Correct Side, Site, Position Yes Yes -Correct Procedure Yes Yes -Procedure Performed Yes Yes -Type of Procedure Debridement Debridement -Clinical Debridement Subcutaneous Subcutaneous -Tissue Removed Subcutaneous Subcutaneous -Post Debridement (cm) - Length 2.1 0.4 -Post Debridement (cm) - Width 1 0.3 -Post Debridement (cm) - Depth 0.2 0.1 -Total Square (Post) (cm) 2.1 0.12 -Area of Debridement (cm) - Length 2.1 0.4 -Area of Debridement (cm) - Width 1 0.3 -Total Square (Area) (cm) 2.1 0.12 -Tunneling No No -Undermining/Tunneling No No -Circular Undermining No No -Wound/Ulcer Outcome Not Healed Not Healed -Ulcer Cleansing Rinsed/ gauze Irrigated with Saline -Foul Odor after Cleansing No No -Bioengineered Tissue No No -Bleeding Controlled with Pressure Pressure -Treatment Response Procedure Procedure Tolerated Well Tolerated Well -Offloading No -Pressure Reduction Wheelchair cushion -Debridement - Subq, 1st 20sq cm Yes Yes Pain Scale: 0-10 Numeric Is Patient Pain Free? Yes Yes - Nurse 3 - General Ulcer D/C NN Start: 03/25/25 13:06 Freq: Status: Active Protocol: Activity Type Activity Date Activity User E-sign Co-sign Detail Recorded Client Recorded Date Recorded By Document 03/25/25 13:40 [facility] [id number] 03/25/25 13:40 [facility] 03/25/25 13:40 Wound Care Center Nurse 3 #14- L SACRAL POST OP cluster -Ulcer Cleansing Rinsed/ Irrigated with Saline -Foul Odor after Cleansing No -Primary Dressing Applied Promogran Lyudmila Matter, Silicone Border Foam 4x4 -Promogran Lyudmila Matter 1 -Silicone Border Foam 4x4 1 Treatment Response Procedure Tolerated Well Pain Scale: 0-10 Numeric Is Patient Pain Free? Yes - Visit Discharge Discharge Condition Stable Ambulatory Status Wheelchair Facility Type Home Health
--- NOTE | 2025-04-10 08:01 | WC ---
PHOTO - SACRAL CLUSTER 04/08/25
--- NOTE | 2025-04-10 19:46 | PCM.WC.HP ---
History of Present Illness Date of Service: 04/08/25 Chief Complaint: Sacral pressure ulcer History of Wound: This is a 64 year old female who had back surgery in early September 2022 at [facility] and then went to rehab at [place] after that. She had a aurelia replaced in her back. Before her surgery, she was not able to lie flat due to increased pain, so she spent most of her time in her wheelchair. Since her surgery, the pain has limited her ability to sit in her wheelchair. She presented with an ulcer to her sacrum. She was in the ED on 12/10/22 for increased wound drainage and was treated with Keflex. She does have home health to assist with dressing changes. Wound culture 12/26/22 positive for Proteus mirabilis, Enterococcus faecalis, Streptococcus agalactiae, Anaerobic cocci and Bacteroides fragilis. She was treated with Augmentin. Wound culture from 01/23/23 was positive for MRSA and Morganella morganii. The MRSA was treated with Doxycycline. Wound culture 04/03/23 positive for Proteus mirabilis, Enterococcus faecalis, and Anaerobic cocci. She was treated with Augmentin. Wound culture from 07/03/23 positive for Proteus mirabilis and Enterococcus faecalis which was treated with Augmentin. Wound culture was done on 08/23/23. It was negative. She had CT Pelvis on 09/20/23. It showed evidence of tissue defect in the medial aspect of the right buttock abutting the distal sacrum. This most likely represents an ulcerated pressure ulcer. Normal urinary bladder. Normal visualized small intestine. Moderate amount of fecal material is seen in the colon. There is no pelvic fluid. There is no pelvic mass lesion or lymphadenopathy. There is diffuse atherosclerotic calcification of the pelvic arteries. Phleboliths are seen in the pelvis. Normal abdominal wall. Extensive metallic streak artifacts due to fusion with intrapedicular screw and aurelia fixation the lower lumbar spine. Surgery 01/01/24 - Excision sacral pressure sore, Stage IV, with partial ostectomy for osteomyelitis. The procedure was performed by Dr. Costa Hodge. Pathology of sacral bone consistent with chronic osteomyelitis. Soft tissue and skin of sacral region showed ulceration with associated acute and chronic inflammation and granulation. Operative bone culture from 01/01/24 positive for Staphylococcus haemolyticus. She was treated for 6 weeks for positive bone cultures. Operative tissue culture from 01/01/24 positive for Corynebacterium striatum, Strep anginosus, Prevotella disiens, and Anaerobic cocci. She was treated with Doxycycline and Augmentin. [facility] Medical History Pressure injury of sacral region, stage 3 Diabetes mellitus type 2, controlled GERD without esophagitis COPD (chronic obstructive pulmonary disease) Tobacco abuse counseling History of methicillin resistant staphylococcus aureus (MRSA) Wears glasses Post-menopausal Depression Marijuana use Neuropathy Thyroid disease Arthritis Back pain Gastric reflux Smoker Paraplegia History of stress test Personal history of Methicillin resistant Staphylococcus aureus infection Diabetes mellitus Pressure injury of sacral region, stage 4 Weight loss Positive colorectal cancer screening using Cologuard test Witnessed seizure-like activity Ulcer of left lower leg Ulcer of right lower extremity with fat layer exposed Ulcer of left lower extremity with fat layer exposed Toxic encephalopathy Wound, open, abdominal wall, anterior Current tobacco use Chest pain, unspecified Bone lesion Intractable low back pain Major depressive disorder Chronic cluster headache, not intractable Age-related osteoporosis without current pathological fracture Primary generalized (osteo)arthritis Other intervertebral disc degeneration, lumbar region Hypothyroidism Anemia Muscle weakness Spinal stenosis, lumbar region without neurogenic claudication Neuromuscular scoliosis Chronic low back pain Paraplegia Morbid obesity HTN (hypertension) HLD (hyperlipidemia) Home Medications ?Medication ?Instructions ?Recorded ?Last Taken ?Type gyxlfgvaroyq-eskrmltb-gkvnrz 1 tab PO DAILY supplement 02/26/18 12/31/23 History tablet (Cerovite Senior) pantoprazole 40 mg tablet,delayed 40 mg PO BID PRN stomach 09/17/20 12/31/23 History release acetaminophen 500 mg tablet 500 mg PO Q6H PRN Pain 1-10 Or 10/08/20 12/31/23 History Fever albuterol sulfate 90 mcg/actuation 2 puff inhalation Q4H PRN PRN Sob 10/08/20 Unknown History aerosol inhaler &/Or Wheezing betamethasone valerate 0.1 % 1 applic topical BID PRN skin 01/15/21 12/31/23 Rx topical cream irritation #15 grams cetirizine 10 mg tablet 10 mg PO DAILY #30 tabs 01/15/21 12/31/23 Rx hydrocolloid dressing 4 X 4 #5 ea 09/07/21 Unknown Rx (DuoDERM CGF Adhesive Border Dressing) biotin 1 mg tablet 1 mg PO DAILY SUPPLEMENT 05/17/22 12/31/23 History calcium citrate 250 mg PO DAILY SUPPLEMENT 05/17/22 12/31/23 History cholecalciferol (vitamin D3) 25 25 mcg PO DAILY SUPPLEMENT 05/17/22 12/31/23 History mcg (1,000 unit) capsule cyanocobalamin (vitamin B-12) 1,000 mcg PO DAILY SUPPLEMENT 05/17/22 12/31/23 History 1,000 mcg tablet ferrous sulfate 325 mg (65 mg 325 mg PO DAILY SUPPLEMENT 05/17/22 12/31/23 History iron) tablet mupirocin 2 % topical ointment 1 applic topical DAILY PRN Wound 05/17/22 12/31/23 History Care gabapentin 300 mg capsule 300 mg PO BID 30 days #60 caps 05/19/22 01/01/24 Rx dextran 70-hypromellose 0.1 %-0.3 1 drp ophthalmic (eye) TID PRN dry 05/25/22 12/31/23 History % eye drops (Artificial Tears eye(s) (dextran 70-hypromellose)) ipratropium 20 mcg-albuterol 100 1 puff inhalation Q6H PRN copd 05/25/22 01/01/24 History mcg/actuation mist for inhalation (Combivent Respimat) sennosides 8.6 mg tablet (Senna 8.6 mg PO .QOD STOOL 08/25/22 12/31/23 History Lax) methadone 5 mg tablet 10 mg PO BID 12/01/22 12/31/23 History naloxone 4 mg/actuation nasal 1 spray intranasal Q2M PRN opioid 12/01/22 Unknown History spray (Narcan) overdose oxycodone-acetaminophen 10 mg-325 1 tab PO Q3H PRN Pain 12/01/22 01/01/24 History mg tablet (Percocet) lidocaine 5 % topical ointment 1 applic topical TID PRN pain #30 07/12/23 12/31/23 Rx grams levothyroxine 175 mcg tablet 175 mcg PO DAILY disorder of 12/26/23 12/31/23 History thyroid gland magnesium glycinate 100 mg (as 200 mg PO BID 12/26/23 12/31/23 History glycinate) tablet valacyclovir 500 mg tablet 500 mg PO DAILY Check with primary 02/06/24 Unknown Rx (Valtrex) doctor #30 tabs lorazepam 0.5 mg tablet 1 mg PO BID PRN Anxiety 03/19/25 Unknown History Allergy/AdvReac Type Severity Reaction Status Date / Time NSAIDS (Non-Steroidal Allergy GASTRIC Verified 03/19/25 14:01 Anti-Inflamma BYPASS ondansetron (From Zofran) AdvReac Other Verified 03/19/25 14:01 trazodone AdvReac Other Verified 03/19/25 14:01 Family History Father Diabetes Hypertension Myocardial infarction Alcoholism Brother Myocardial infarction Alcoholism Mother CVA (cerebral vascular accident) Surgical History S/P laminectomy with spinal fusion H/O dilation and curettage History of bilateral salpingo-oophorectomy S/P arthroscopic knee surgery s/p nerve spine surgery S/P lumbar spine operation s/p upper back surgery skin graft Hydradenitis History of cholecystectomy H/O gastric bypass Social History Smoking Status: Current every day smoker tobacco type: cigarettes alcohol intake: never substance use type: does not use caffeine: Yes what type of physical activity do you participate in: none seatbelt use: always do you feel safe at home: Yes additional social history: Physical Exam Const alert, oriented x3, no apparent distress and average body habitus Constitutional Narrative: The patient's BMI is 24.2. The patient is paraplegic. General Appearance: cooperative and comfortable Orientation / Consciousness: awake, oriented to person, oriented to place and oriented to time Exam Limitations: physical limitations HEENT normocephalic and head/scalp atraumatic Head and Scalp: normal to inspection, normocephalic and atraumatic Face and Sinus: normal facial exam Nose: external nose normal External Ear: external ears normal Eyes EOMs intact bilaterally General Eye: normal appearance of both eyes Resp normal respiratory effort, normal air movement, no retractions and no use of accessory muscles Effort and Inspection: able to speak in complete sentences Extremity General Extremity: Negative for clubbing or cyanosis Skin Wound Narrative: A stage III sacrococcygeal pressure ulceration is noted. It extends through the cutaneous layers and into the subcutaneous tissues. Bone and fascia are not visible. The base of the ulcer demonstrates pink, healthy granulation tissue, and nearly complete epithelialization of the ulcer bed. The ulceration is decreasing in size, and is nearly healed. There is a small amount of bioburden. Ulcer margins are well beveled. There is no sign of infection or cellulitis. The periwound dermis is unremarkable. Dimensions are documented elsewhere. Neuro oriented x3 and CN's II-XII intact bilaterally Neuro Narrative: The patient is paraplegic. Sensorium / Orientation: awake, alert, oriented to person, oriented to place and oriented to time Speech: speech normal Psych cooperative and speech normal Appearance: grossly normal and appropriate Attitude: calm Activity / Motor Behavior: appropriate eye contact Speech: normal speech Mood & Affect: euthymic mood Attention / Concentration: attention grossly intact Debridement Note Debridement Note Wound debrided: Sacrococcygeal pressure ulceration Laterality: Not Applicable (Sacrococcygeal pressure ulceration in the midline) Wound Grade/Stage: Stage III Type of Debridement: Excisional debridement Anesthesia Used: 5% Lidocaine Gel Depth: Down to and including healthy tissue and in the subcutaneous layer Percentage of wound debrided: 100 Instrument Used: 3mm curette Tissue Removed: Bioburden Severity: Fat Layer Exposed (muscle is exposed. bone is palpable but not exposed.) Amount of bleeding with debridement: Mild Bleeding Controlled with: Compression and gauze Patient tolerated procedure: Patient tolerated procedure well Post-Debridement Measurements and Additional Note: Post-Debridement Measurements/Treatment - Nurse 1 - General Ulcer Assessment Start: 03/25/25 13:06 Freq: Status: Active Protocol: SCOTTY.ZACK Activity Type Activity Date Activity User E-sign Co-sign Detail Recorded Client Recorded Date Recorded By Document 03/25/25 13:07 [id number] 03/25/25 13:13 Document 04/08/25 13:03 [facility] [id number] 04/08/25 13:16 [facility] 03/25/25 04/08/25 13:07 13:03 - Today's Visit Information Type of service Follow-up Visit Follow-up Visit (Physician/BEEF SPLITTER (Physician/BEEF SPLITTER ) ) Arrival Mode Wheelchair Wheelchair Transfer Assistance Manual Other Transfer Assist (Other) 1 Accompanied by spike [facility] in [facility] Patient Identification Verified (Name & Yes Yes ) Patient Requires Transmission-Based No No Precautions Vital Signs Temperature (97.8 F-99.1 F) 97.6 F L 96.6 F L Temperature Source Temporal Temporal Pulse Rate (60-100) 108 H 74 Pulse Location Monitor Monitor Respiratory Rate (12-18) 16 16 Respiratory rate source Observation Observation Oxygen Delivery Method Room Air Blood Pressure (90/60-120/80) 141/87 H 156/91 H Blood Pressure Mean 105 112 Source Monitor Monitor Position Semi-Fowlers Sitting Blood Pressure Location Right Arm Left Forearm History Since Last Visit- (Skip if this is Patient's initial visit) Have you changed medications since your Yes No last visit? Any new allergies or adverse reactions No No Had a fall/change in ADL's that may No No increase risk of falls Signs or symptoms of abuse and/or No No neglect since last visit Have you been in the hospital since your No No last visit? Has dressing in place as prescribed Yes Yes Has compression in place as prescribed No N/A Has offloadiing in place as prescribed N/A Experienced any changes in pain level or Yes No management Left Footwear Regular Shoe Slipper Right Footwear Regular Shoe Slipper Pain Scale: 0-10 Numeric Is Patient Pain Free? Yes Yes - Nurse 1 - General Ulcer Measurement Start: 03/25/25 13:06 Freq: Status: Active Protocol: Activity Type Activity Date Activity User E-sign Co-sign Detail Recorded Client Recorded Date Recorded By Document 03/25/25 13:07 [id number] 03/25/25 13:13 Document 04/08/25 13:03 [facility] [id number] 04/08/25 13:16 [facility] 03/25/25 04/08/25 13:07 13:03 Wound Center Nurse 1 #14- L SACRAL POST OP cluster -Combined with other wound No No -Current Size (cm) - Length 2 1 -Current Size (cm) - Width 1 0.5 -Current Size (cm) - Depth 0.2 0.2 -Total Square Cm 2 0.5 -Date of Last Picture (Recall this 04/08/25 field) -Photo Taken Yes Yes -Epithelialization Medium 34-66% Small 1-33% -Tunneling No No -Undermining/Tunneling No No -Circular Undermining No No -Exudate Amt Small Medium -Exudate Type Serosanguineous Serosanguineous -Wound Margin Flat & Intact Thickened -Granulation Amt Large (67-100%) Large (67-100%) -Granulation Quality Red Red -Slough/Fibrin Yes Yes -Necrosis Amt Small (1-33%) Small (1-33%) -Necrotic Tissue Type Adherent Slough Adherent Slough -Structure Exposed N/A -Texture (Vivi-wound Skin Appearance) Assessed Assessed, Scarring -Moisture (Vivi-wound Skin Appearance) Assessed,Dry/ Assessed Scaly -Color (Vivi-wound Skin Appearance) Assessed Assessed -Temperature (Vivi-wound Skin No Abnormality No Abnormality Appearance) (Pt Warm) (Pt Warm) -Tenderness on Palpation (Vivi-wound No No Skin Appearance) -Ulcer Cleansing Rinsed/ Rinsed/ Irrigated with Irrigated with Saline Saline -Foul Odor after Cleansing No No -Anesthetic Used 4% Lidocaine 5% Lidocaine Solution Gel Lower Limb Edema Present NA WC - Nurse 2 - General Ulcer CM Notes Start: 03/25/25 13:06 Freq: Status: Active Protocol: Activity Type Activity Date Activity User E-sign Co-sign Detail Recorded Client Recorded Date Recorded By Document 03/25/25 13:17 [id number] 03/25/25 13:20 JF Document 04/08/25 13:26 DS [id number] 04/08/25 13:27 DS 03/25/25 04/08/25 13:17 13:26 Wound Center Nurse 2 #14- L SACRAL POST OP cluster -Time 13:18 13:26 -Correct Patient Yes Yes -Correct Side, Site, Position Yes Yes -Correct Procedure Yes Yes -Procedure Performed Yes Yes -Type of Procedure Debridement Debridement -Clinical Debridement Subcutaneous Subcutaneous -Tissue Removed Subcutaneous Subcutaneous -Post Debridement (cm) - Length 2.1 0.4 -Post Debridement (cm) - Width 1 0.3 -Post Debridement (cm) - Depth 0.2 0.1 -Total Square (Post) (cm) 2.1 0.12 -Area of Debridement (cm) - Length 2.1 0.4 -Area of Debridement (cm) - Width 1 0.3 -Total Square (Area) (cm) 2.1 0.12 -Tunneling No No -Undermining/Tunneling No No -Circular Undermining No No -Wound/Ulcer Outcome Not Healed Not Healed -Ulcer Cleansing Rinsed/ gauze Irrigated with Saline -Foul Odor after Cleansing No No -Bioengineered Tissue No No -Bleeding Controlled with Pressure Pressure -Treatment Response Procedure Procedure Tolerated Well Tolerated Well -Offloading No -Pressure Reduction Wheelchair cushion -Debridement - Subq, 1st 20sq cm Yes Yes Pain Scale: 0-10 Numeric Is Patient Pain Free? Yes Yes - Nurse 3 - General Ulcer D/C NN Start: 03/25/25 13:06 Freq: Status: Active Protocol: Activity Type Activity Date Activity User E-sign Co-sign Detail Recorded Client Recorded Date Recorded By Document 03/25/25 13:40 [facility] [id number] 03/25/25 13:40 [facility] Document 04/08/25 13:41 [id number] 04/08/25 13:41 03/25/25 04/08/25 13:40 13:41 Wound Care Center Nurse 3 #14- L SACRAL POST OP cluster -Ulcer Cleansing Rinsed/ Irrigated with Saline -Foul Odor after Cleansing No -Primary Dressing Applied Promogran Promogran Lyudmila Matter, Lyudmila Matter, Silicone Border Silicone Border Foam 4x4 Foam 4x4 -Promogran Lyudmila Matter 1 1 -Silicone Border Foam 4x4 1 1 Treatment Response Procedure Tolerated Well Pain Scale: 0-10 Numeric Is Patient Pain Free? Yes Yes - Visit Discharge Discharge Condition Stable Stable Ambulatory Status Wheelchair Ambulatory, Walker, Wheelchair Transportation Private Auto Medication Reconcilliation completed & No provided to patient/care provider Clinical Summary of Care Provided Yes Facility Type Home Health Charges/Coding Procedures Integumentary [id number]: [id number] Shila subq tissue 20 sq cm/< Assessment/Plan Assessment/Plan (1) Pressure injury of sacral region, stage 3: CODE(S): L89.153 - Pressure ulcer of sacral region, stage 3 (2) Diabetes mellitus: CODE(S): E11.9 - Type 2 diabetes mellitus without complications QUALIFIERS: Diabetes mellitus type: type 2 Diabetes mellitus complication status: with skin complications (3) Tobacco use disorder: CODE(S): F17.200 - Nicotine dependence, unspecified, uncomplicated (4) Paraplegia: CODE(S): G82.20 - Paraplegia, unspecified (5) Smoker: CODE(S): F17.200 - Nicotine dependence, unspecified, uncomplicated (6) Tobacco abuse counseling: CODE(S): Z71.6 - Tobacco abuse counseling (7) History of cholecystectomy: CODE(S): Z98.890 - Other specified postprocedural states; Z90.49 - Acquired absence of other specified parts of digestive tract (8) H/O gastric bypass: CODE(S): Z98.84 - Bariatric surgery status (9) Diabetes mellitus type 2, controlled: CODE(S): E11.9 - Type 2 diabetes mellitus without complications (10) COPD (chronic obstructive pulmonary disease): CODE(S): J44.9 - Chronic obstructive pulmonary disease, unspecified QUALIFIERS: COPD type: unspecified COPD Qualified Code(s): J44.9 - Chronic obstructive pulmonary disease, unspecified (11) GERD without esophagitis: CODE(S): K21.9 - Gastro-esophageal reflux disease without esophagitis (12) History of methicillin resistant staphylococcus aureus (MRSA): CODE(S): Z86.14 - Personal history of Methicillin resistant Staphylococcus aureus infection (13) S/P laminectomy with spinal fusion: CODE(S): Z98.1 - Arthrodesis status (14) Paraplegia: CODE(S): G82.20 - Paraplegia, unspecified PLAN: Plan This is a 64-year-old female paraplegic who has had a history of multiple lumbar spine surgeries in the past. She is currently undergoing management at our facility relative to a chronic pressure ulceration in the sacrococcygeal area. Offloading measures are to be continued. These have been discussed with the patient in detail. She lives with her daughter, who assists the patient in daily care. She also has home health nursing care and an independent aide. The patient is known to be a smoker, smoking approximately 3/4 pack/day. She has been strongly urged to discontinue her smoking habit, but continues to smoke. She has been advised that smoking may play a role in delayed wound healing. Nutritional optimization has been recommended. The patient has previously undergone consultation with a dietitian, and received dietary recommendations on several occasions. She has been encouraged to optimize her glycemic control and nutritional intake. We are to continue the use of moistened Lyudmila and [place] SAP applied topically to the wound on a daily basis. The patient and her daughter have been instructed in the appropriate means of application. There is evidence of peripheral epithelialization, and the ulceration continues to decrease in size. The patient is return in 2 weeks for reevaluation. The patient has received delivery of her new, mechanized wheelchair. She has undergone recent dental extractions. Total time: 24 minutes
[2025-04-22 13:26] VITALS: BP 150/68; PULSE 68; RESP 18; TEMP 35.9
--- NOTE | 2025-04-23 14:44 | WC ---
PHOTO-SACRAL 04/22/25
--- NOTE | 2025-04-24 11:43 | HP.PCM_ITS ---
History of Present Illness Date of Service: 04/22/25 Chief Complaint: Sacral pressure ulcer History of Wound: This is a 65 year old female who had back surgery in early September 2022 at [facility] and then went to rehab at [facility] after that. She had a aurelia replaced in her back. Before her surgery, she was not able to lie flat due to increased pain, so she spent most of her time in her wheelchair. Since her surgery, the pain has limited her ability to sit in her wheelchair. She presented with an ulcer to her sacrum. She was in the ED on 12/10/22 for increased wound drainage and was treated with Keflex. She does have home health to assist with dressing changes. Wound culture 12/26/22 positive for Proteus mirabilis, Enterococcus faecalis, Streptococcus agalactiae, Anaerobic cocci and Bacteroides fragilis. She was treated with Augmentin. Wound culture from 01/23/23 was positive for MRSA and Morganella morganii. The MRSA was treated with Doxycycline. Wound culture 04/03/23 positive for Proteus mirabilis, Enterococcus faecalis, and Anaerobic cocci. She was treated with Augmentin. Wound culture from 07/03/23 positive for Proteus mirabilis and Enterococcus faecalis which was treated with Augmentin. Wound culture was done on 08/23/23. It was negative. She had CT Pelvis on 09/20/23. It showed evidence of tissue defect in the medial aspect of the right buttock abutting the distal sacrum. This most likely represents an ulcerated pressure ulcer. Normal urinary bladder. Normal visualized small intestine. Moderate amount of fecal material is seen in the colon. There is no pelvic fluid. There is no pelvic mass lesion or lymphadenopathy. There is diffuse atherosclerotic calcification of the pelvic arteries. Phleboliths are seen in the pelvis. Normal abdominal wall. Extensive metallic streak artifacts due to fusion with intrapedicular screw and aurelia fixation the lower lumbar spine. Surgery 01/01/24 - Excision sacral pressure sore, Stage IV, with partial ostectomy for osteomyelitis. The procedure was performed by Dr. Costa Hodge. Pathology of sacral bone consistent with chronic osteomyelitis. Soft tissue and skin of sacral region showed ulceration with associated acute and chronic inflammation and granulation. Operative bone culture from 01/01/24 positive for Staphylococcus haemolyticus. She was treated for 6 weeks for positive bone cultures. Operative tissue culture from 01/01/24 positive for Corynebacterium striatum, Strep anginosus, Prevotella disiens, and Anaerobic cocci. She was treated with Doxycycline and Augmentin. [facility] Medical History Pressure injury of sacral region, stage 3 Diabetes mellitus type 2, controlled GERD without esophagitis COPD (chronic obstructive pulmonary disease) Tobacco abuse counseling History of methicillin resistant staphylococcus aureus (MRSA) Wears glasses Post-menopausal Depression Marijuana use Neuropathy Thyroid disease Arthritis Back pain Gastric reflux Smoker Paraplegia History of stress test Personal history of Methicillin resistant Staphylococcus aureus infection Diabetes mellitus Pressure injury of sacral region, stage 4 Weight loss Positive colorectal cancer screening using Cologuard test Witnessed seizure-like activity Ulcer of left lower leg Ulcer of right lower extremity with fat layer exposed Ulcer of left lower extremity with fat layer exposed Toxic encephalopathy Wound, open, abdominal wall, anterior Current tobacco use Chest pain, unspecified Bone lesion Intractable low back pain Major depressive disorder Chronic cluster headache, not intractable Age-related osteoporosis without current pathological fracture Primary generalized (osteo)arthritis Other intervertebral disc degeneration, lumbar region Hypothyroidism Anemia Muscle weakness Spinal stenosis, lumbar region without neurogenic claudication Neuromuscular scoliosis Chronic low back pain Paraplegia Morbid obesity HTN (hypertension) HLD (hyperlipidemia) Home Medications ?Medication ?Instructions ?Recorded ?Last Taken ?Type nzsjhchcgicv-qsthenya-dtikka 1 tab PO DAILY supplement 02/26/18 12/31/23 History tablet (Cerovite Senior) pantoprazole 40 mg tablet,delayed 40 mg PO BID PRN sto mach 09/17/20 12/31/23 History release acetaminophen 500 mg tablet 500 mg PO Q6H PRN Pain 1-1 0 Or 10/08/20 12/31/23 History Fever albuterol sulfate 90 mcg/actuation 2 puff inhalation Q 4H PRN PRN Sob 10/08/20 Unknown History aerosol inhaler &/Or Wheezing betamethasone valerate 0.1 % 1 applic topical BID PRN skin 01/15/21 12/31/23 Rx topical cream irritation #15 grams cetirizine 10 mg tablet 10 mg PO DAILY #30 tabs 12/2312/31/23 Rx hydrocolloid dressing 4 X 4 #5 ea 09/07/21 Unknown R x (DuoDERM CGF Adhesive Border Dressing) biotin 1 mg tablet 1 mg PO DAILY SUPPLEMENT 12/31/23 History calcium citrate 250 mg PO DAILY SUPPLEMENT 1 12/31/23 History cholecalciferol (vitamin D3) 25 25 mcg PO DAILY SUPPLE MENT 05/17/22 12/31/23 History mcg (1,000 unit) capsule cyanocobalamin (vitamin B-12) 1,000 mcg PO DAILY SUPPL EMENT 05/17/22 12/31/23 History 1,000 mcg tablet ferrous sulfate 325 mg (65 mg 325 mg PO DAILY SUPPLEME NT 05/17/22 12/31/23 History iron) tablet mupirocin 2 % topical ointment 1 applic topical DAILY PRN Wound 05/17/22 12/31/23 History Care gabapentin 300 mg capsule 300 mg PO BID 30 days #60 ca ps 05/19/22 01/01/24 Rx dextran 70-hypromellose 0.1 %-0.3 1 drp ophthalmic (ey e) TID PRN dry 05/25/22 12/31/23 History % eye drops (Artificial Tears eye(s) (dextran 70-hypromellose)) ipratropium 20 mcg-albuterol 100 1 puff inhalation Q6H PRN copd 05/25/22 01/01/24 History mcg/actuation mist for inhalation (Combivent Respimat) sennosides 8.6 mg tablet (Senna 8.6 mg PO .QOD STOOL 0 08/25/22 12/31/23 History Lax) methadone 5 mg tablet 10 mg PO BID 12/01/22 History naloxone 4 mg/actuation nasal 1 spray intranasal Q2M P RN opioid 12/01/22 Unknown History spray (Narcan) overdose oxycodone-acetaminophen 10 mg-325 1 tab PO Q3H PRN Cynthia n 12/01/22 01/01/24 History mg tablet (Percocet) lidocaine 5 % topical ointment 1 applic topical TID NJ N pain #30 07/12/23 12/31/23 Rx grams levothyroxine 175 mcg tablet 175 mcg PO DAILY disorder of 12/26/23 12/31/23 H istory thyroid gland magnesium glycinate 100 mg (as 200 mg PO BID 12/26/23 12/31/23 History glycinate) tablet valacyclovir 500 mg tablet 500 mg PO DAILY Check with primary 02/06/24 Unknown Rx (Valtrex) doctor #30 tabs lorazepam 0.5 mg tablet 1 mg PO BID PRN Anxiety 02/22 02/14 Unknown History Allergy/AdvReac Type Severity Reaction Status Date / Time NSAIDS (Non-Steroidal Allergy GASTRIC Verified 03/19/25 14:01 Anti-Inflamma BYPASS ondansetron (From Zofran) AdvReac Other Verified 03/19/25 14:01 trazodone AdvReac Other Verified 03/19/25 14:01 Family History Father Diabetes Hypertension Myocardial infarction Alcoholism Brother Myocardial infarction Alcoholism Mother CVA (cerebral vascular accident) Surgical History S/P laminectomy with spinal fusion H/O dilation and curettage History of bilateral salpingo-oophorectomy S/P arthroscopic knee surgery s/p nerve spine surgery S/P lumbar spine operation s/p upper back surgery skin graft Hydradenitis History of cholecystectomy H/O gastric bypass Social History Smoking Status: Current every day smoker tobacco type: cigarettes alcohol intake: never substance use type: does not use caffeine: Yes what type of physical activity do you participate in: none seatbelt use: always do you feel safe at home: Yes additional social history: Physical Exam Const alert, oriented x3, no apparent distress and average body habitus Constitutional Narrative: The patient's BMI is 24.2. The patient is paraplegic. General Appearance: cooperative and comfortable Orientation / Consciousness: awake, oriented to person, oriented to place and oriented to time Exam Limitations: physical limitations HEENT normocephalic and head/scalp atraumatic Head and Scalp: normal to inspection, normocephalic and atraumatic Face and Sinus: normal facial exam Nose: external nose normal External Ear: external ears normal Eyes EOMs intact bilaterally General Eye: normal appearance of both eyes Resp normal respiratory effort, normal air movement, no retractions and no use of accessory muscles Effort and Inspection: able to speak in complete sentences Extremity General Extremity: Negative for clubbing or cyanosis Skin Wound Narrative: A stage III sacrococcygeal pressure ulceration is noted. It extends through the cutaneous layers and into the subcutaneous tissues. Bone and fascia are not visible. The base of the ulcer demonstrates pink, healthy granulation tissue, and nearly complete epithelialization of the ulcer bed. The ulceration is decreasing in size, and is nearly healed. There is a small amount of bioburden. Ulcer margins are well beveled. There is no sign of infection or cellulitis. The periwound dermis is unremarkable. Dimensions are documented elsewhere. Neuro oriented x3 and CN's II-XII intact bilaterally Neuro Narrative: The patient is paraplegic. Sensorium / Orientation: awake, alert, oriented to person, oriented to place and oriented to time Speech: speech normal Psych cooperative and speech normal Appearance: grossly normal and appropriate Attitude: calm Activity / Motor Behavior: appropriate eye contact Speech: normal speech Mood & Affect: euthymic mood Attention / Concentration: attention grossly intact Debridement Note Debridement Note Wound debrided: Sacrococcygeal pressure ulceration Laterality: Not Applicable (Sacrococcygeal pressure ulceration in the midline) Wound Grade/Stage: Stage III Type of Debridement: Excisional debridement Anesthesia Used: 5% Lidocaine Gel Depth: Down to and including healthy tissue and in the subcutaneous layer Percentage of wound debrided: 100 Instrument Used: 3mm curette Tissue Removed: Bioburden Severity: Fat Layer Exposed (muscle is exposed. bone is palpable but not exposed.) Amount of bleeding with debridement: Mild Bleeding Controlled with: Compression and gauze Patient tolerated procedure: Patient tolerated procedure well Post-Debridement Measurements and Additional Note: Post-Debridement Measurements/Treatment - Nurse 1 - General Ulcer Assessment Start: 03/25/25 13:06 Freq: Status: Active Protocol: TAISHA Activity Type Activity Date Activity User E-sign Co-sign Detail Recorded Client Recorded Date Recorded By Document 03/25/25 13:07 [id number] 03/25/25 13:13 Document 04/08/25 13:03 [facility] [id number] 04/08/25 13:16 [facility] 03/25/25 04/08/25 13:07 13:03 - Today's Visit Information Type of service Follow-up Visit Follow-up Visit (Physician/[employer] (Physician/[employer] ) ) Arrival Mode Wheelchair Wheelchair Transfer Assistance Manual Other Transfer Assist (Other) 1 Accompanied by spike ann in [facility] Patient Identification Verified (Name & Yes Yes ) Patient Requires Transmission-Based No No Precautions Vital Signs Temperature (97.8 F-99.1 F) 97.6 F L 96.6 F L Temperature Source Temporal Temporal Pulse Rate (60-100) 108 H 74 Pulse Location Monitor Monitor Respiratory Rate (12-18) 16 16 Respiratory rate source Observation Observation Oxygen Delivery Method Room Air Blood Pressure (90/60-120/80) 141/87 H 156/91 H Blood Pressure Mean 105 112 Source Monitor Monitor Position Semi-Fowlers Sitting Blood Pressure Location Right Arm Left Forearm History Since Last Visit- (Skip if this is Patient's initial visit) Have you changed medications since your Yes No last visit? Any new allergies or adverse reactions No No Had a fall/change in ADL's that may No No increase risk of falls Signs or symptoms of abuse and/or No No neglect since last visit Have you been in the hospital since your No No last visit? Has dressing in place as prescribed Yes Yes Has compression in place as prescribed No N/A Has offloadiing in place as prescribed N/A Experienced any changes in pain level or Yes No management Left Footwear Regular Shoe Slipper Right Footwear Regular Shoe Slipper Pain Scale: 0-10 Numeric Is Patient Pain Free? Yes Yes - Nurse 1 - General Ulcer Measurement Start: 03/25/25 13:06 Freq: Status: Active Protocol: Activity Type Activity Date Activity User E-sign Co-sign Detail Recorded Client Recorded Date Recorded By Document 03/25/25 13:07 [id number] 03/25/25 13:13 Document 04/08/25 13:03 [facility] [id number] 04/08/25 13:16 [facility] 03/25/25 04/08/25 13:07 13:03 Wound Center Nurse 1 #14- L SACRAL POST OP cluster -Combined with other wound No No -Current Size (cm) - Length 2 1 -Current Size (cm) - Width 1 0.5 -Current Size (cm) - Depth 0.2 0.2 -Total Square Cm 2 0.5 -Date of Last Picture (Recall this 04/08/25 field) -Photo Taken Yes Yes -Epithelialization Medium 34-66% Small 1-33% -Tunneling No No -Undermining/Tunneling No No -Circular Undermining No No -Exudate Amt Small Medium -Exudate Type Serosanguineous Serosanguineous -Wound Margin Flat & Intact Thickened -Granulation Amt Large (67-100%) Large (67-100%) -Granulation Quality Red Red -Slough/Fibrin Yes Yes -Necrosis Amt Small (1-33%) Small (1-33%) -Necrotic Tissue Type Adherent Slough Adherent Slough -Structure Exposed N/A -Texture (Vivi-wound Skin Appearance) Assessed Assessed, Scarring -Moisture (Vivi-wound Skin Appearance) Assessed,Dry/ Assessed Scaly -Color (Vivi-wound Skin Appearance) Assessed Assessed -Temperature (Vivi-wound Skin No Abnormality No Abnormality Appearance) (Pt Warm) (Pt Warm) -Tenderness on Palpation (Vivi-wound No No Skin Appearance) -Ulcer Cleansing Rinsed/ Rinsed/ Irrigated with Irrigated with Saline Saline -Foul Odor after Cleansing No No -Anesthetic Used 4% Lidocaine 5% Lidocaine Solution Gel Lower Limb Edema Present NA WC - Nurse 2 - General Ulcer CM Notes Start: 03/25/25 13:06 Freq: Status: Active Protocol: Activity Type Activity Date Activity User E-sign Co-sign Detail Recorded Client Recorded Date Recorded By Document 03/25/25 13:17 [id number] 03/25/25 13:20 JF Document 04/08/25 13:26 DS [id number] 04/08/25 13:27 DS 03/25/25 04/08/25 13:17 13:26 Wound Center Nurse 2 #14- L SACRAL POST OP cluster -Time 13:18 13:26 -Correct Patient Yes Yes -Correct Side, Site, Position Yes Yes -Correct Procedure Yes Yes -Procedure Performed Yes Yes -Type of Procedure Debridement Debridement -Clinical Debridement Subcutaneous Subcutaneous -Tissue Removed Subcutaneous Subcutaneous -Post Debridement (cm) - Length 2.1 0.4 -Post Debridement (cm) - Width 1 0.3 -Post Debridement (cm) - Depth 0.2 0.1 -Total Square (Post) (cm) 2.1 0.12 -Area of Debridement (cm) - Length 2.1 0.4 -Area of Debridement (cm) - Width 1 0.3 -Total Square (Area) (cm) 2.1 0.12 -Tunneling No No -Undermining/Tunneling No No -Circular Undermining No No -Wound/Ulcer Outcome Not Healed Not Healed -Ulcer Cleansing Rinsed/ gauze Irrigated with Saline -Foul Odor after Cleansing No No -Bioengineered Tissue No No -Bleeding Controlled with Pressure Pressure -Treatment Response Procedure Procedure Tolerated Well Tolerated Well -Offloading No -Pressure Reduction Wheelchair cushion -Debridement - Subq, 1st 20sq cm Yes Yes Pain Scale: 0-10 Numeric Is Patient Pain Free? Yes Yes - Nurse 3 - General Ulcer D/C NN Start: 03/25/25 13:06 Freq: Status: Active Protocol: Activity Type Activity Date Activity User E-sign Co-sign Detail Recorded Client Recorded Date Recorded By Document 03/25/25 13:40 [facility] [id number] 03/25/25 13:40 [facility] Document 04/08/25 13:41 [id number] 04/08/25 13:41 KW 03/25/25 04/08/25 13:40 13:41 Wound Care Center Nurse 3 #14- L SACRAL POST OP cluster -Ulcer Cleansing Rinsed/ Irrigated with Saline -Foul Odor after Cleansing No -Primary Dressing Applied Promogran Promogran Lyudmila Matter, Lyudmila Matter, Silicone Border Silicone Border Foam 4x4 Foam 4x4 -Promogran Lyudmila Matter 1 1 -Silicone Border Foam 4x4 1 1 Treatment Response Procedure Tolerated Well Pain Scale: 0-10 Numeric Is Patient Pain Free? Yes Yes WC - Visit Discharge Discharge Condition Stable Stable Ambulatory Status Wheelchair Ambulatory, Walker, Wheelchair Transportation Private Auto Medication Reconcilliation completed & No provided to patient/care provider Clinical Summary of Care Provided Yes Facility Type Home Health Charges/Coding Procedures Integumentary [id number]: [id number] Shila subq tissue 20 sq cm/< Assessment/Plan Assessment/Plan (1) Pressure injury of sacral region, stage 3: CODE(S): L89.153 - Pressure ulcer of sacral region, stage 3 (2) Diabetes mellitus: CODE(S): E11.9 - Type 2 diabetes mellitus without complications QUALIFIERS: Diabetes mellitus type: type 2 Diabetes mellitus complication status: with skin complications (3) Tobacco use disorder: CODE(S): F17.200 - Nicotine dependence, unspecified, uncomplicated (4) Paraplegia: CODE(S): G82.20 - Paraplegia, unspecified (5) Smoker: CODE(S): F17.200 - Nicotine dependence, unspecified, uncomplicated (6) Tobacco abuse counseling: CODE(S): Z71.6 - Tobacco abuse counseling (7) History of cholecystectomy: CODE(S): Z98.890 - Other specified postprocedural states; Z90.49 - Acquired absence of other specified parts of digestive tract (8) H/O gastric bypass: CODE(S): Z98.84 - Bariatric surgery status (9) Diabetes mellitus type 2, controlled: CODE(S): E11.9 - Type 2 diabetes mellitus without complications (10) COPD (chronic obstructive pulmonary disease): CODE(S): J44.9 - Chronic obstructive pulmonary disease, unspecified QUALIFIERS: COPD type: unspecified COPD Qualified Code(s): J44.9 - Chronic obstructive pulmonary disease, unspecified (11) GERD without esophagitis: CODE(S): K21.9 - Gastro-esophageal reflux disease without esophagitis (12) History of methicillin resistant staphylococcus aureus (MRSA): CODE(S): Z86.14 - Personal history of Methicillin resistant Staphylococcus aureus infection (13) S/P laminectomy with spinal fusion: CODE(S): Z98.1 - Arthrodesis status (14) Paraplegia: CODE(S): G82.20 - Paraplegia, unspecified PLAN: Plan This is a 65-year-old female paraplegic who has had a history of multiple lumbar spine surgeries in the past. She is currently undergoing management at our facility relative to a chronic pressure ulceration in the sacrococcygeal area. Offloading measures are to be continued. These have been discussed with the patient in detail. She lives with her daughter, who assists the patient in daily care. She also has home health nursing care and an independent aide. The patient is known to be a smoker, smoking approximately 3/4 pack/day. She has been strongly urged to discontinue her smoking habit, but continues to smoke. She has been advised that smoking may play a role in delayed wound healing. Nutritional optimization has been recommended. The patient has previously undergone consultation with a dietitian, and received dietary recommendations on several occasions. She has been encouraged to optimize her glycemic control and nutritional intake. We are to continue the use of moistened Lyudmila and [place] SAP applied topically to the wound on a daily basis. The patient and her daughter have been instructed in the appropriate means of application. There is evidence of peripheral epithelialization, and the ulceration continues to decrease in size. The patient is return in 2 weeks for reevaluation. The patient has recently received delivery of her new, mechanized wheelchair. She has also undergone recent dental extractions. Total time: 25 minutes
== END 2025-04-22 23:59 | disposition home or self-care (01) ==
LOC: WC 13:00
PROVIDERS: PCP Internal Medicine; Referring Provider Nurse Practitioner Family; Visit Provider Surgery
DX: L89.153 Pressure ulcer of sacral region, stage 3 (principal); G82.20 Paraplegia, unspecified; J44.9 Chronic obstructive pulmonary disease, unspecified; E11.40 Type 2 diabetes mellitus with diabetic neuropathy, unspecified; Z98.1 Arthrodesis status; Z79.890 Hormone replacement therapy; F17.200 Nicotine dependence, unspecified, uncomplicated; I87.8 Other specified disorders of veins; Z71.6 Tobacco abuse counseling; E78.5 Hyperlipidemia, unspecified; K21.9 Gastro-esophageal reflux disease without esophagitis; Z82.49 Family history of ischemic heart disease and other diseases of the circulatory system; G89.29 Other chronic pain; I10 Essential (primary) hypertension; Z86.14 Personal history of Methicillin resistant Staphylococcus aureus infection; Z79.899 Other long term (current) drug therapy; D64.9 Anemia, unspecified
CPT/HCPCS: 11042

== ENCOUNTER 2025-05-20 13:00 | Outpatient (RCR) | payer MEDICARE, MEDICAID, SELFPAY ==
[2025-05-20 13:06] VITALS: BP 130/82; PULSE 77; RESP 18; TEMP 37.2
--- NOTE | 2025-05-20 22:59 | HP.PCM_ITS ---
History of Present Illness Date of Service: 05/20/25 Chief Complaint: Sacral pressure ulcer History of Wound: This is a 64 year old female who had back surgery in early September 2022 at [facility] and then went to rehab at [facility] after that. She had a aurelia replaced in her back. Before her surgery, she was not able to lie flat due to increased pain, so she spent most of her time in her wheelchair. Since her surgery, the pain has limited her ability to sit in her wheelchair. She presented with an ulcer to her sacrum. She was in the ED on 12/10/22 for increased wound drainage and was treated with Keflex. She does have home health to assist with dressing changes. Wound culture 12/26/22 positive for Proteus mirabilis, Enterococcus faecalis, Streptococcus agalactiae, Anaerobic cocci and Bacteroides fragilis. She was treated with Augmentin. Wound culture from 01/23/23 was positive for MRSA and Morganella morganii. The MRSA was treated with Doxycycline. Wound culture 04/03/23 positive for Proteus mirabilis, Enterococcus faecalis, and Anaerobic cocci. She was treated with Augmentin. Wound culture from 07/03/23 positive for Proteus mirabilis and Enterococcus faecalis which was treated with Augmentin. Wound culture was done on 08/23/23. It was negative. She had CT Pelvis on 09/20/23. It showed evidence of tissue defect in the medial aspect of the right buttock abutting the distal sacrum. This most likely represents an ulcerated pressure ulcer. Normal urinary bladder. Normal visualized small intestine. Moderate amount of fecal material is seen in the colon. There is no pelvic fluid. There is no pelvic mass lesion or lymphadenopathy. There is diffuse atherosclerotic calcification of the pelvic arteries. Phleboliths are seen in the pelvis. Normal abdominal wall. Extensive metallic streak artifacts due to fusion with intrapedicular screw and aurelia fixation the lower lumbar spine. Surgery 01/01/24 - Excision sacral pressure sore, Stage IV, with partial ostectomy for osteomyelitis. The procedure was performed by Dr. Costa Hodge. Pathology of sacral bone consistent with chronic osteomyelitis. Soft tissue and skin of sacral region showed ulceration with associated acute and chronic inflammation and granulation. Operative bone culture from 01/01/24 positive for Staphylococcus haemolyticus. She was treated for 6 weeks for positive bone cultures. Operative tissue culture from 01/01/24 positive for Corynebacterium striatum, Strep anginosus, Prevotella disiens, and Anaerobic cocci. She was treated with Doxycycline and Augmentin. COUNTS INCLUDE 234 BEDS AT THE [facility] Medical History Pressure injury of sacral region, stage 3 Diabetes mellitus type 2, controlled GERD without esophagitis COPD (chronic obstructive pulmonary disease) Tobacco abuse counseling History of methicillin resistant staphylococcus aureus (MRSA) Wears glasses Post-menopausal Depression Marijuana use Neuropathy Thyroid disease Arthritis Back pain Gastric reflux Smoker Paraplegia History of stress test Personal history of Methicillin resistant Staphylococcus aureus infection Diabetes mellitus Pressure injury of sacral region, stage 4 Weight loss Positive colorectal cancer screening using Cologuard test Witnessed seizure-like activity Ulcer of left lower leg Ulcer of right lower extremity with fat layer exposed Ulcer of left lower extremity with fat layer exposed Toxic encephalopathy Wound, open, abdominal wall, anterior Current tobacco use Chest pain, unspecified Bone lesion Intractable low back pain Major depressive disorder Chronic cluster headache, not intractable Age-related osteoporosis without current pathological fracture Primary generalized (osteo)arthritis Other intervertebral disc degeneration, lumbar region Hypothyroidism Anemia Muscle weakness Spinal stenosis, lumbar region without neurogenic claudication Neuromuscular scoliosis Chronic low back pain Paraplegia Morbid obesity HTN (hypertension) HLD (hyperlipidemia) Home Medications ?Medication ?Instructions ?Recorded ?Last Taken ?Type mgpfqggpsvql-tindlszu-dwfrys 1 tab PO DAILY supplement 02/26/18 12/31/23 History tablet (Cerovite Senior) pantoprazole 40 mg tablet,delayed 40 mg PO BID PRN sto mach 09/17/20 12/31/23 History release acetaminophen 500 mg tablet 500 mg PO Q6H PRN Pain 1-1 0 Or 10/08/20 12/31/23 History Fever albuterol sulfate 90 mcg/actuation 2 puff inhalation Q 4H PRN PRN Sob 10/08/20 Unknown History aerosol inhaler &/Or Wheezing betamethasone valerate 0.1 % 1 applic topical BID PRN skin 01/15/21 12/31/23 Rx topical cream irritation #15 grams cetirizine 10 mg tablet 10 mg PO DAILY #30 tabs 12/2312/31/23 Rx hydrocolloid dressing 4 X 4 #5 ea 09/07/21 Unknown R x (DuoDERM CGF Adhesive Border Dressing) biotin 1 mg tablet 1 mg PO DAILY SUPPLEMENT 12/31/23 History calcium citrate 250 mg PO DAILY SUPPLEMENT 1 12/31/23 History cholecalciferol (vitamin D3) 25 25 mcg PO DAILY SUPPLE MENT 05/17/22 12/31/23 History mcg (1,000 unit) capsule cyanocobalamin (vitamin B-12) 1,000 mcg PO DAILY SUPPL EMENT 05/17/22 12/31/23 History 1,000 mcg tablet ferrous sulfate 325 mg (65 mg 325 mg PO DAILY SUPPLEME NT 05/17/22 12/31/23 History iron) tablet mupirocin 2 % topical ointment 1 applic topical DAILY PRN Wound 05/17/22 12/31/23 History Care gabapentin 300 mg capsule 300 mg PO BID 30 days #60 ca ps 05/19/22 01/01/24 Rx dextran 70-hypromellose 0.1 %-0.3 1 drp ophthalmic (ey e) TID PRN dry 05/25/22 12/31/23 History % eye drops (Artificial Tears eye(s) (dextran 70-hypromellose)) ipratropium 20 mcg-albuterol 100 1 puff inhalation Q6H PRN copd 05/25/22 01/01/24 History mcg/actuation mist for inhalation (Combivent Respimat) sennosides 8.6 mg tablet (Senna 8.6 mg PO .QOD STOOL 0 08/25/22 12/31/23 History Lax) methadone 5 mg tablet 10 mg PO BID 12/01/22 History naloxone 4 mg/actuation nasal 1 spray intranasal Q2M P RN opioid 12/01/22 Unknown History spray (Narcan) overdose oxycodone-acetaminophen 10 mg-325 1 tab PO Q3H PRN Cynthia n 12/01/22 01/01/24 History mg tablet (Percocet) lidocaine 5 % topical ointment 1 applic topical TID OH N pain #30 07/12/23 12/31/23 Rx grams levothyroxine 175 mcg tablet 175 mcg PO DAILY disorder of 12/26/23 12/31/23 H istory thyroid gland magnesium glycinate 100 mg (as 200 mg PO BID 12/26/23 12/31/23 History glycinate) tablet valacyclovir 500 mg tablet 500 mg PO DAILY Check with primary 02/06/24 Unknown Rx (Valtrex) doctor #30 tabs lorazepam 0.5 mg tablet 1 mg PO BID PRN Anxiety 02/22 02/14 Unknown History amoxicillin 875 mg tablet 875 mg PO BID 04/30/25 Unkno wn History diclofenac sodium 1 % topical gel 2 g topical ONCE #10 0 grams 04/30/25 Unknown Rx (Arthritis Pain (diclofenac)) Allergy/AdvReac Type Severity Reaction Status Date / Time NSAIDS (Non-Steroidal Allergy GASTRIC Verified 04/30/25 13:53 Anti-Inflamma BYPASS ondansetron (From Zofran) AdvReac Other Verified 04/30/25 13:53 trazodone AdvReac Other Verified 04/30/25 13:53 Family History Father Diabetes Hypertension Myocardial infarction Alcoholism Brother Myocardial infarction Alcoholism Mother CVA (cerebral vascular accident) Surgical History S/P laminectomy with spinal fusion H/O dilation and curettage History of bilateral salpingo-oophorectomy S/P arthroscopic knee surgery s/p nerve spine surgery S/P lumbar spine operation s/p upper back surgery skin graft Hydradenitis History of cholecystectomy H/O gastric bypass Social History Smoking Status: Current every day smoker tobacco type: cigarettes alcohol intake: never substance use type: does not use caffeine: Yes what type of physical activity do you participate in: none seatbelt use: always do you feel safe at home: Yes additional social history: Vital Signs Vital Signs Vital Signs: 05/20/25 13:06 Temperature 98.9 F Temperature Source Temporal Pulse Rate 77 Respiratory Rate 18 Blood Pressure 130/82 H Blood Pressure Mean 98 Blood Pressure Source Monitor Blood Pressure Position Semi-Fowlers Blood Pressure Location Left Arm Oxygen Delivery Method Room Air Weight Weight: 140 lb 0.002 oz Physical Exam Const alert, oriented x3, no apparent distress and average body habitus Constitutional Narrative: The patient's BMI is 24.2. The patient is paraplegic. General Appearance: cooperative and comfortable Orientation / Consciousness: awake, oriented to person, oriented to place and oriented to time Exam Limitations: physical limitations HEENT normocephalic and head/scalp atraumatic Head and Scalp: normal to inspection, normocephalic and atraumatic Face and Sinus: normal facial exam Nose: external nose normal External Ear: external ears normal Eyes EOMs intact bilaterally General Eye: normal appearance of both eyes Resp normal respiratory effort, normal air movement, no retractions and no use of accessory muscles Effort and Inspection: able to speak in complete sentences Extremity General Extremity: Negative for clubbing or cyanosis Skin Wound Narrative: A stage III sacrococcygeal pressure ulceration is noted. It extends through the cutaneous layers and into the subcutaneous tissues. Bone and fascia are not visible. The base of the ulcer demonstrates pink, healthy granulation tissue, and nearly complete epithelialization of the ulcer bed. The ulceration is decreasing in size, and is nearly healed. There is a small amount of bioburden. Ulcer margins are well beveled. There is no sign of infection or cellulitis. The periwound dermis is unremarkable. Dimensions are documented elsewhere. Neuro oriented x3 and CN's II-XII intact bilaterally Neuro Narrative: The patient is paraplegic. Sensorium / Orientation: awake, alert, oriented to person, oriented to place and oriented to time Speech: speech normal Psych cooperative and speech normal Appearance: grossly normal and appropriate Attitude: calm Activity / Motor Behavior: appropriate eye contact Speech: normal speech Mood & Affect: euthymic mood Attention / Concentration: attention grossly intact Debridement Note Debridement Note Wound debrided: Sacrococcygeal pressure ulceration Laterality: Not Applicable (Sacrococcygeal pressure ulceration in the midline) Wound Grade/Stage: Stage III Type of Debridement: Excisional debridement Anesthesia Used: 5% Lidocaine Gel Depth: Down to and including healthy tissue and in the subcutaneous layer Percentage of wound debrided: 100 Instrument Used: 3mm curette Tissue Removed: Bioburden Severity: Fat Layer Exposed (muscle is exposed. bone is palpable but not exposed.) Amount of bleeding with debridement: Mild Bleeding Controlled with: Compression and gauze Patient tolerated procedure: Patient tolerated procedure well Post-Debridement Measurements and Additional Note: Post-Debridement Measurements/Treatment WC - Nurse 1 - General Ulcer Assessment Start: 05/20/25 13:05 Freq: Status: Active Protocol: TAISHA Activity Type Activity Date Activity User E-sign Co-sign Detail Recorded Client Recorded Date Recorded By Document 05/20/25 13:06 RB [id number] 05/20/25 13:11 RB Edit Result 05/20/25 13:06 RB (1) [id number] 05/20/25 13:13 RB (1) Blood Pressure (90/60-120/80) 160/95 H => 130/82 H Blood Pressure Mean 116 => 98 05/20/25 13:06 - Today's Visit Information Type of service Follow-up Visit (Physician/[employer] ) Arrival Mode Wheelchair Transfer Assistance Manual Patient Identification Verified (Name & Yes ) Patient Requires Transmission-Based No Precautions Vital Signs Temperature (97.8 F-99.1 F) 98.9 F Temperature Source Temporal Pulse Rate (60-100) 77 Pulse Location Monitor Respiratory Rate (12-18) 18 Respiratory rate source Observation Oxygen Delivery Method Room Air Blood Pressure (90/60-120/80) 130/82 H Blood Pressure Mean 98 Source Monitor Position Semi-Fowlers Blood Pressure Location Left Arm History Since Last Visit- (Skip if this is Patient's initial visit) Have you changed medications since your No last visit? Any new allergies or adverse reactions No Had a fall/change in ADL's that may No increase risk of falls Signs or symptoms of abuse and/or No neglect since last visit Have you been in the hospital since your No last visit? Has dressing in place as prescribed Yes Has compression in place as prescribed N/A Has offloadiing in place as prescribed N/A Experienced any changes in pain level or No management Left Footwear Regular Shoe Right Footwear Regular Shoe Pain Scale: 0-10 Numeric Is Patient Pain Free? Yes - Nurse 1 - General Ulcer Measurement Start: 05/20/25 13:05 Freq: Status: Active Protocol: Activity Type Activity Date Activity User E-sign Co-sign Detail Recorded Client Recorded Date Recorded By Document 05/20/25 13:06 RB [id number] 05/20/25 13:11 RB 05/20/25 13:06 Wound Center Nurse 1 #14- L SACRAL POST OP cluster -Combined with other wound No -Current Size (cm) - Length 0.1 -Current Size (cm) - Width 0.1 -Current Size (cm) - Depth 0.1 -Total Square Cm 0.01 -Photo Taken Yes -Tunneling No -Undermining/Tunneling No -Circular Undermining No -Exudate Amt Medium -Exudate Type Serosanguineous -Wound Margin Distinct, Outline Attached -Granulation Amt Large (67-100%) -Granulation Quality [place] -Slough/Fibrin Yes -Necrosis Amt Small (1-33%) -Necrotic Tissue Type Adherent Slough -Structure Exposed N/A -Texture (Vivi-wound Skin Appearance) Assessed, Scarring -Moisture (Vivi-wound Skin Appearance) Assessed -Color (Vivi-wound Skin Appearance) Assessed -Temperature (Vivi-wound Skin No Abnormality Appearance) (Pt Warm) -Tenderness on Palpation (Vivi-wound No Skin Appearance) -Ulcer Cleansing Wound Cleanser -Foul Odor after Cleansing No -Anesthetic Used 5% Lidocaine Gel WC - Nurse 2 - General Ulcer CM Notes Start: 05/20/25 13:05 Freq: Status: Active Protocol: Activity Type Activity Date Activity User E-sign Co-sign Detail Recorded Client Recorded Date Recorded By Document 05/20/25 13:34 DS [id number] 05/20/25 13:36 DS 05/20/25 13:34 Wound Center Nurse 2 -Time 13:34 -Correct Patient Yes -Correct Side, Site, Position Yes -Correct Procedure Yes -Procedure Performed Yes -Type of Procedure Debridement -Clinical Debridement Subcutaneous -Tissue Removed Subcutaneous -Post Debridement (cm) - Length 0.5 -Post Debridement (cm) - Width 1.0 -Post Debridement (cm) - Depth 0.1 -Total Square (Post) (cm) 0.50 -Area of Debridement (cm) - Length 0.5 -Area of Debridement (cm) - Width 1.0 -Total Square (Area) (cm) 0.50 -Tunneling No -Undermining/Tunneling No -Circular Undermining No -Wound/Ulcer Outcome Not Healed -Ulcer Cleansing Rinsed/ Irrigated with Saline -Foul Odor after Cleansing No -Bioengineered Tissue No -Bleeding Controlled with Pressure -Treatment Response Procedure Tolerated Well -Debridement - Subq, 1st 20sq cm Yes Pain Scale: 0-10 Numeric Is Patient Pain Free? Yes WC - Nurse 3 - General Ulcer D/C NN Start: 05/20/25 13:05 Freq: Status: Active Protocol: Activity Type Activity Date Activity User E-sign Co-sign Detail Recorded Client Recorded Date Recorded By Document 05/20/25 13:44 RB [id number] 05/20/25 13:45 RB Edit Result 05/20/25 13:44 RB (1) [id number] 05/20/25 14:15 RB Document 05/20/25 14:08 ML [id number] 05/20/25 14:09 ML (1) #14- L SACRAL POST OP cluster - Promogran Lyudmila Matter 1 => 0 - Silicone Border Foam 6x6 1 => 0 - Wound Comment(s) => Magy charged for dressings 05/20/25 05/20/25 13:44 14:08 Wound Care Center Nurse 3 #14- L SACRAL POST OP cluster -Ulcer Cleansing Rinsed/ Rinsed/ Irrigated with Irrigated with Saline Saline -Primary Dressing Applied Promogran Promogran Lyudmila Matter, Lyudmila Matter, Silicone Border Silicone Border Foam 6x6 Foam 6x6 -Promogran Lyudmila Matter 0 2 -Silicone Border Foam 6x6 0 1 -Wound Comment(s) Magy charged for dressings Treatment Response Procedure Tolerated Well Pain Scale: 0-10 Numeric Is Patient Pain Free? Yes Yes WC - Visit Discharge Discharge Condition Stable Ambulatory Status Wheelchair Transportation provide a ride Medication Reconcilliation completed & No provided to patient/care provider Clinical Summary of Care Provided Yes Charges/Coding Procedures Integumentary [id number]: [id number] Shila subq tissue 20 sq cm/< Assessment/Plan Assessment/Plan (1) Pressure injury of sacral region, stage 3: CODE(S): L89.153 - Pressure ulcer of sacral region, stage 3 (2) Diabetes mellitus: CODE(S): E11.9 - Type 2 diabetes mellitus without complications QUALIFIERS: Diabetes mellitus type: type 2 Diabetes mellitus complication status: with skin complications (3) Tobacco use disorder: CODE(S): F17.200 - Nicotine dependence, unspecified, uncomplicated (4) Paraplegia: CODE(S): G82.20 - Paraplegia, unspecified (5) Smoker: CODE(S): F17.200 - Nicotine dependence, unspecified, uncomplicated (6) Tobacco abuse counseling: CODE(S): Z71.6 - Tobacco abuse counseling (7) History of cholecystectomy: CODE(S): Z98.890 - Other specified postprocedural states; Z90.49 - Acquired absence of other specified parts of digestive tract (8) H/O gastric bypass: CODE(S): Z98.84 - Bariatric surgery status (9) Diabetes mellitus type 2, controlled: CODE(S): E11.9 - Type 2 diabetes mellitus without complications (10) COPD (chronic obstructive pulmonary disease): CODE(S): J44.9 - Chronic obstructive pulmonary disease, unspecified QUALIFIERS: COPD type: unspecified COPD Qualified Code(s): J44.9 - Chronic obstructive pulmonary disease, unspecified (11) GERD without esophagitis: CODE(S): K21.9 - Gastro-esophageal reflux disease without esophagitis (12) History of methicillin resistant staphylococcus aureus (MRSA): CODE(S): Z86.14 - Personal history of Methicillin resistant Staphylococcus aureus infection (13) S/P laminectomy with spinal fusion: CODE(S): Z98.1 - Arthrodesis status PLAN: Plan This is a 65-year-old female paraplegic who has had a history of multiple lumbar spine surgeries in the past. She is currently undergoing management at our facility relative to a chronic pressure ulceration in the sacrococcygeal area. Offloading measures are to be continued. These have been discussed with the patient in detail. She lives with her daughter, who assists the patient in daily care. She also has home health nursing care and an independent aide. The patient is known to be a smoker, smoking approximately 3/4 pack/day. She has been strongly urged to discontinue her smoking habit, but continues to smoke. She has been advised that smoking may play a role in delayed wound healing. Nutritional optimization has been recommended. The patient has previously undergone consultation with a dietitian, and received dietary recommendations on several occasions. She has been encouraged to optimize her glycemic control and nutritional intake. We are to continue the use of moistened Lyudmila and [place] SAP applied topically to the wound on a daily basis. The patient and her daughter have been instructed in the appropriate means of application. Lyudmila wound dressing is a sterile, biodegradable dressing used to promote wound healing. It is composed of a matrix of oxidized regenerated cellulose and collagen with silver. As a benefit, it promotes wound closure and granulation tissue formation. It reduces infection risk due to its silver content. It provides a moist wound environment that supports wound healing. The collagen content in Lyudmila acts as a structural framework or scaffold which supports the attachment, migration, and organization of new cells like fibroblasts and keratinocytes, which are needed to build new tissue, which is known as granulation tissue. Collagen also possesses chemotactic properties, meaning that it attracts cells essential for healing, such as fibroblasts and macrophages. Collagen also supports angiogenesis, the formation of new blood vessels, which is vital for delivering oxygen and nutrients to the healing area. Collagen?based dressings help maintain a moist wound environment, regulate enzymes, and increase the tensile strength of wounds. In summary, collagen is essential to the wound healing process as it provides the physical structure and biochemical signals required for wounds to progress and heal. There is evidence of peripheral epithelialization, and the ulceration continues to decrease in size. The patient is return in 2 weeks for reevaluation. Total time: 28 minutes
--- NOTE | 2025-05-21 10:10 | WC ---
PHOTO-SACRAL CLUSTER 05/20/25
--- NOTE | 2025-05-21 10:11 | WC ---
PHOTO-SACRAL CLUSTER 05/20/25
== END 2025-05-23 23:59 | disposition home or self-care (01) ==
LOC: WC 13:00
PROVIDERS: PCP Internal Medicine; Referring Provider Nurse Practitioner Family; Visit Provider Surgery
DX: L89.153 Pressure ulcer of sacral region, stage 3 (principal); G82.20 Paraplegia, unspecified; E11.40 Type 2 diabetes mellitus with diabetic neuropathy, unspecified; E11.628 Type 2 diabetes mellitus with other skin complications; F17.210 Nicotine dependence, cigarettes, uncomplicated
CPT/HCPCS: 11042; 97803